=== PATIENT | female | born 1985 | race Caucasian/White ===

== ENCOUNTER 2018-01-15 11:28 | Emergency (ER) | payer MEDICAID, SELFPAY ==
[2018-01-15 11:29] VITALS: BP 99/63; PULSE 75; RESP 16; TEMP 36.7; O2SAT 98; BMI 23.9
[2018-01-15] MEDS: Lidocaine/Epi/Tetracaine 50 ML 1 APPLIC TOPICAL (11:50)
--- NOTE | 2018-01-15 11:53 | ED.VISSUMM ---
- ER Visit Summary Date of Service: 01/15/18 Chief Complaint: Right hand laceration History of Present Illness: The patient is a 32 F presenting with right hand laceration. Patient states last night she was washing dishes and a glass broke. She cut her right small finger. She states she held pressure and applied a dressing. This morning she had persistent bleeding and presented to the ED. Her tetanus is up-to-date. Physical Examination: Vitals are stable. Patient is afebrile. Alert no acute distress. HEENT exam is unremarkable. Lungs are clear and equal bilaterally. Heart is regular rate and rhythm. Extremities right small finger 2 cm flap laceration dorsal surface. Tendon function normal. Normal cap refill Skin is warm and dry. No focal neurologic deficit. Remainder of exam is unremarkable. Emergency Department Course and Treatment: Xray of right hand shows no acute process. LET was applied. Digital block was performed. Irrigated with saline. 3, 5-0 simple sutures were placed. Patient with tolerated this well. Advised wound care instructions. Advised to follow-up with her primary care physician. Advised return ED for worsening complaints. Disposition: Discharge home Impression: Right small finger laceration, laceration repair This note was generated with [employer] dictation software. It may contain incorrect words, spelling, and punctuation that were not noted in review of the chart prior to signing ED Disposition - Plan for ED Patient: Chief Complaint: Laceration Instructions: ED Laceration All Referrals: Roger Cohen MD [STAFF PHYSICIAN] -
--- NOTE | 2018-01-15 11:55 | ED.DEP ---
ED Disposition - Plan for ED Patient: Chief Complaint: Laceration Instructions: ED Laceration All Referrals: Roger Cohen MD [Primary Care Provider] -
--- NOTE | 2018-01-15 12:00 | RAD_ITS ---
STUDY: X-RAY - RIGHT HAND REASON FOR EXAM: Female, 32 years old. Injury. TECHNIQUE: 3 view(s) of the hand. COMPARISON: None. FINDINGS: Normal radiocarpal articulation. Normal distal radioulnar joint. Normal visualized carpal bones. Normal carpal articulations Normal carpometacarpal articulation of the thumb. Normal second through fifth carpometacarpal joints. Normal metacarpi. Normal metacarpophalangeal joint of the thumb. Normal interphalangeal joint of the thumb. Normal proximal and distal phalanges of the thumb. Normal metacarpophalangeal joints of the second through fifth fingers. Normal proximal and distal interphalangeal joints of the second through fifth fingers. Normal phalanges of the second through fifth fingers. There is soft tissue swelling and dressing overlying the proximal phalanx of the fifth finger. RAD/Hand Min 3 Views IMPRESSION: No demonstrated acute osseous injury. Electronically Signed: Kelton Chen MD at 12:19 EDT Tel , Service support ,
[2018-01-15] MEDS: Acetaminophen 500 MG Tablet 1000 MG PO (12:08)
== END 2018-01-15 13:03 | disposition home or self-care (01) ==
PROVIDERS: Emergency Provider Emergency Medicine; Family Provider Family Medicine; PCP Family Medicine
DX: S61.216A Laceration without foreign body of right little finger without damage to nail, initial encounter (principal); W25.XXXA Contact with sharp glass, initial encounter; Y93.9 Activity, unspecified; Y92.9 Unspecified place or not applicable; F32.9 Major depressive disorder, single episode, unspecified; Z79.899 Other long term (current) drug therapy; Z72.0 Tobacco use
CPT/HCPCS: 12001; 73130; 99284

== ENCOUNTER 2018-02-09 14:14 | Emergency (ER) | payer MEDICAID, SELFPAY ==
[2018-02-09 14:14] VITALS: BP 119/67; PULSE 99; RESP 16; TEMP 37.2; O2SAT 98; BMI 24.4
[2018-02-09 14:56] LABS: Absolute Lymphocyte Count 0.54 X10^3/ul (0.83-4.51); Absolute Neutrophil Count 9.1 X10^3/uL (2.0-7.7); Basophil# 0.01 X10^3/uL; Basophil% 0.1 % (0-1); Eosinophil# 0.02 X10^3/uL; Eosinophils% 0.2 % (0-5); Hematocrit 39.9 % (37-47); Hemoglobin 13.5 g/dl (12.0-15.0); Lymphocyte # 0.54 X10^3/ul (4.0); Lymphocyte % 5.2 % (19-41); Mean Corp Hgb Conc 33.8 g/gl (32-36); Mean Corpuscular Hgb 30.3 pg (27.0-32.0); Mean Corpuscular Volume 89.5 fL (81-99); Mean Platelet Vol. 10.3 fl (6.2-12.0); Monocyte# 0.73 X10^3/uL; Neutrophil # 9.12 X10^3/uL (2.7-7.7); Neutrophil % 87.4 % (47-70); Platelet Count 205 K/mm3 (150-450); RBC Distribution Width CV 13.7 % (11.6-14.6); RBC Distribution Width SD 44.2 fl (35.1-43.9); Red Blood Count 4.46 M/mm3 (4.2-5.4); White Blood Count 10.4 K/mm3 (4.4-11.0)
[2018-02-09 14:57] LABS: Differential Indicated SCAN CRITERIA MET; POSITIVE COUNT NO; POSITIVE DIFFERENTIAL YES; POSITIVE MORPHOLOGY NO
[2018-02-09 15:02] LABS: Anion Gap 8 (5-15); BUN 16 mg/dL (7-18); BUN/Creat Ratio 20.8 RATIO (10-20); Calcium,Total 8.5 mg/dL (8.5-10.1); Chloride 107 mmol/L (98-107); Creatinine, Serum 0.77 mg/dL (0.55-1.02); EST Glomerular Filtration Rate 94 mL/min (>60); Est Glom Filt Rate - Afr Amer 113 mL/min (>60); Estimated Creatinine Clearance 88.37 ml/min; Glucose 95 mg/dL (74-106); Potassium 3.3 mmol/L (3.5-5.1); Sodium Level 140 mmol/L (136-145)
[2018-02-09] MEDS: Dicyclomine 20 MG/2 ML Vial IM (15:04)
[2018-02-09] MEDS: Ondansetron 4 MG/2 ML Vial IV (15:04)
[2018-02-09] MEDS: 0.9% Normal Saline 1,000 ML 1000 ML IV (15:04)
[2018-02-09 15:14] LABS: Pregnancy, Serum, hCG Quali. NEGATIVE Negative (0-9 Nonpreg)
[2018-02-09 15:37] LABS: Bacteria 0 SEEN /hpf (None Seen)
--- NOTE | 2018-02-09 15:45 | ED.VISSUMM ---
- ER Visit Summary Date of Service: 02/09/18 Chief Complaint: [Vomiting and diarrhea] History of Present Illness: The patient is a 32 F [presents to the emergency department with vomiting and diarrhea that started 6 PM yesterday. Patient states that she been throwing up about every half hour. Patient's had 3 watery stools. Patient describes diffuse abdominal discomfort mostly left sided. Patient denies any sick contacts. Patient denies eating any unusual or suspect back to foods. Patient denies any fever at home. She has had some chills. Patient denies any recent antibiotic usage.] Physical Examination: [HEENT-PERRLA, EOMI. Cranial nerves II through XII grossly intact. TMs clear. Mucous membranes moist. No adenopathy. Cardiovascular-regular rate and rhythm without murmur or ectopy Lungs-clear to auscultation, chest wall stable without crepitus or subcu emphysema Abdomen-normoactive bowel sounds, soft. Patient has some mild diffuse tenderness mostly to the left upper abdomen. There is no rebound, rigidity, or perineal signs. Extremities-intact ?4, normal range of motion, normal pulses, atraumatic] Test Results: [CBC with differential obtained showed a white blood cell count of 10.4, hemoglobin 13.5, hematocrit 40, platelets 205. Chemistries showed a sodium of 140, potassium 3.3, chloride 107, CO2 25, glucose 95, BUN 16, creatinine 0.77. HCG was negative. Urinalysis pending.] Emergency Department Course and Treatment: [Patient received a liter normal same fluid bolus and was given Bentyl and Zofran. Patient had no further vomiting and she was able to tolerate p.o. fluids.] Treatment Plan: [Patient will be given a prescription for Zofran and Bentyl] Disposition: [Discharged to home in stable condition. Patient advised to return if persistent vomiting, diarrhea, dehydration, or condition should worsen in any way. ] Impression-] viral gastroenteritis This note was generated with [employer] dictation software. It may contain incorrect words, spelling, and punctuation that were not noted in review of the chart prior to signing ED Disposition - Plan for ED Patient: Chief Complaint: Nausea/Vomiting/Diarrhea Referrals: Maci Hayes [Primary Care Provider] -
--- NOTE | 2018-02-09 15:48 | ED.DEP ---
ED Disposition - Plan for ED Patient: Chief Complaint: Nausea/Vomiting/Diarrhea Instructions: ED Gastroenteritis Viral Prescriptions: Ondansetron [Zofran Odt] 4 mg PO Q8H PRN PRN #10 tab PRN Reason: Nausea Dicyclomine HCl [Bentyl] 20 mg PO TIDAC #20 cap Referrals: Maci Hayes [Primary Care Provider] - 3-5 Days
[2018-02-09 16:03] LABS: Color, Urine Yellow (Yellow); Glucose, Dipstick Normal (Normal); Ketone-Dipstick 5 mg/dl (Negative); Leukocyte Esterase-Dipstick 25 /ul (Negative); Nitrite-Dipstick Negative (Negative); Occult Blood-Urine 10 /ul (Negative); Protein-Dipstick 30 mg/dl (Negative); Specific Gravity, Urine 1.015 (1.002-1.030); Urine Bilirubin Dipstick Negative (Negative); Urine Clarity Sl. Cloudy (Clear); Urine Urobilinogen 1 mg/dl (Normal)
[2018-02-09 16:21] LABS: Mucous, Urine RARE /hpf (<or=2+); Red Blood Cells-Urine 0-5 SEEN /hpf (0-5); Squamous Epithelial Cells - UA 10-25 SEEN /hpf (5-10); White Blood Cells 0-5 SEEN /hpf (0-5)
== END 2018-02-09 16:36 | disposition home or self-care (01) ==
LOC: ED 14:53
PROVIDERS: Emergency Provider Emergency Medicine; Family Provider Family Medicine; PCP Family Medicine
DX: A08.4 Viral intestinal infection, unspecified (principal); Z72.0 Tobacco use
CPT/HCPCS: 80048; 81001; 84703; 85025; 96361; 96372; 96374; 99283; J7030; J2405

== ENCOUNTER 2018-02-22 18:38 | Emergency (ER) | payer MEDICAID, SELFPAY ==
[2018-02-22 18:41] VITALS: BP 103/57; PULSE 76; RESP 14; TEMP 36.9; O2SAT 96; BMI 23.5
--- NOTE | 2018-02-22 19:08 | ED.DCSUM_ITS ---
- ER Visit Summary Date of Service: 02/22/18 Chief Complaint: Headache History of Present Illness: The patient is a 32 F who presents with a headache that has been constant for the past 3 days. Patient states this is similar to prior migraine headaches but has been more persistent. Patient describes her pain as throbbing. Patient states her headache is generalized. Patient states her headache improves with sleep. Patient states her headache is worse with light. Patient admits to a low-grade fever at home. Patient admits to some nausea and vomiting with a headache. Patient denies any paresthesias or weakness. Patient denies any visual changes. Patient denies any sore throat or sinus pressure. Physical Examination: Vital signs are stable. Patient is afebrile. Patient is in no acute distress. Oral mucosa is pink and moist. Neck is supple. There is no JVD or lymphadenopathy noted. Heart was regular rate and rhythm. Lungs are clear and equal bilateral. There is good respiratory effort noted. Abdomen is soft nontender. Bowel sounds are normal. Cranial nerves II through XII are intact. There are no focal motor or sensory deficits noted. Remaining physical exam is within normal limits. Emergency Department Course and Treatment: Patient was given IV fluids here. Patient was given Benadryl 25 mg IV, Compazine 10 mg IV, and Toradol 30 mg IV. Patient felt better on reevaluation. Patient was instructed to rest in a dark quiet room. Patient was instructed to follow-up with her primary care physician in 7-10 days. Patient understood and was agreeable with the plan. All questions were answered. Disposition: Discharged home Impression: Migraine headache This note was generated with [employer] dictation software. It may contain incorrect words, spelling, and punctuation that were not noted in review of the chart prior to signing ED Disposition - Plan for ED Patient: Disposition: Home or Assisted Living Chief Complaint: Headache Diagnosis: Migraine headache Instructions: ED Headache Migraine Referrals: Maci Hayes [Primary Care Provider] -
[2018-02-22] MEDS: 0.9% Normal Saline 1,000 ML 999 ML IV (19:28)
[2018-02-22] MEDS: Ketorolac 30 MG/ML Syringe IV (19:28)
[2018-02-22] MEDS: DiphenhydrAMINE 50 MG/ML Syringe 25 MG IV (19:28)
[2018-02-22] MEDS: proCHLORPERazine 10 MG/2 ML Vial IV (19:28)
[2018-02-22 19:31] VITALS: PULSE 87; RESP 18; O2SAT 99
[2018-02-22 20:44] VITALS: BP 106/74; PULSE 72; RESP 16; O2SAT 98
== END 2018-02-22 20:45 | disposition home or self-care (01) ==
PROVIDERS: Emergency Provider Emergency Medicine; Family Provider Family Medicine; PCP Family Medicine
DX: G43.909 Migraine, unspecified, not intractable, without status migrainosus (principal); R50.9 Fever, unspecified; E28.2 Polycystic ovarian syndrome; E78.5 Hyperlipidemia, unspecified; F17.200 Nicotine dependence, unspecified, uncomplicated; Z79.84 Long term (current) use of oral hypoglycemic drugs; Z79.899 Other long term (current) drug therapy
CPT/HCPCS: 96361; 96374; 96375; 99282; J7030; A4216

== ENCOUNTER → 2018-03-31 08:27 | Outpatient (CLI) | payer MEDICAID, SELFPAY ==
--- NOTE | 2018-03-31 08:29 | RAD_ITS ---
STUDY: AIR-CONTRAST UPPER GI SERIES WITH SMALL BOWEL FOLLOW-THROUGH EXAMINATION. REASON FOR EXAM: Female, 32 years old. Nausea and bloating and constipation. FLUOROSCOPY TIME (if supplied): (1:15) minutes/seconds TECHNIQUE: The patient ingested barium. Multiple images of the esophagus, stomach and duodenum were obtained. Following this, a small bowel follow-through examination was performed. COMPARISON: None. FINDINGS: The esophagus is unremarkable. There is no evidence of obstruction. No evidence of gastric esophageal reflux. The stomach and duodenum are unremarkable as well. No evidence of ulceration. A small bowel follow-through examination was then obtained. The small bowel transit is normal. No intrinsic or extrinsic small bowel disease is seen. The terminal ileum is unremarkable. RAD/Upper GI/w Small Bowel IMPRESSION: Unremarkable upper GI series and small bowel follow-through examination. Electronically Signed: Farhat Richmond MD at 10:24 EDT Tel [phone], Service support ,
== END ==
PROVIDERS: Family Provider Internal Medicine; PCP Internal Medicine; Visit Provider Nurse Practitioner Adult Health
DX: R11.0 Nausea (principal); R10.9 Unspecified abdominal pain
CPT/HCPCS: 74249

== ENCOUNTER 2018-05-02 14:20 | Emergency (ER) | payer OTHER, MEDICAID, SELFPAY ==
[2018-05-02 14:21] VITALS: BP 110/63; PULSE 81; RESP 16; TEMP 36.9; O2SAT 98; BMI 26.1
--- NOTE | 2018-05-02 14:29 | RAD_ITS ---
STUDY: X-RAY - RIGHT WRIST REASON FOR EXAM: Female, 32 years old. Pain and swelling. No known injury. TECHNIQUE: 3 view(s) of the wrist were obtained. COMPARISON: None. FINDINGS: Normal visualized distal radius and ulna. Normal radiocarpal articulation. Normal distal radioulnar articulation. Normal carpal bones. Normal carpal articulations. Normal carpometacarpal articulation of the thumb. Normal second through fifth carpometacarpal articulations. Normal visualized metacarpal bones. Mild soft tissue swelling. RAD/Wrist min 3 Views IMPRESSION: Mild degree of soft tissue swelling. Electronically Signed: Farhat Richmond MD at 14:55 EDT Tel [phone], Service support ,
--- NOTE | 2018-05-02 15:04 | RAD_ITS ---
STUDY: X-RAY - RIGHT RADIUS AND ULNA REASON FOR EXAM: Female, 32 years old. Pain. TECHNIQUE: 2 view(s) of the forearm. COMPARISON: None. FINDINGS: There is no demonstrated soft tissue swelling. Normal visualized radius. Normal visualized ulna. RAD/Forearm 2 Views IMPRESSION: Normal x-ray examination of the radius and ulna. Electronically Signed: Farhat Richmond MD at 15:14 EDT Tel [phone], Service support ,
--- NOTE | 2018-05-02 15:16 | ED.VISSUMM ---
- ER Visit Summary Date of Service: 05/02/18 Chief Complaint: Right wrist pain History of Present Illness: The patient is a 32 F who has right wrist pain. Started at work today. She is moving boxes when this started. Pain is in the forearm. She took ibuprofen which did not help. She has never had any injuries or surgeries on this area previously. Physical Examination: Vital signs are reviewed. Right forearm and wrist reveals tenderness palpation of the muscles of the forearm. She does have pain to range of motion. She has 2+ pulses. No hand tenderness. Test Results: X-rays of the wrist and forearm reveal no acute findings Emergency Department Course and Treatment: She likely has a strain in this area. Patient will be given naproxen to take for pain at home. She will be given a wrist splint for comfort. She will follow-up with her PCP Treatment Plan: [] Disposition: Discharge Impression: Right forearm strain This note was generated with [employer] dictation software. It may contain incorrect words, spelling, and punctuation that were not noted in review of the chart prior to signing ED Disposition - Plan for ED Patient: Chief Complaint: Upper Extremity Injury Referrals: Roger Cohen MD [Primary Care Provider] -
--- NOTE | 2018-05-02 15:17 | ED.DEP ---
ED Disposition - Plan for ED Patient: Disposition: Home or Assisted Living Chief Complaint: Upper Extremity Injury Instructions: ED Sprain Wrist Prescriptions: Naproxen [Naprosyn] 500 mg PO BID PRN #20 tab Referrals: Roger Cohen MD [Primary Care Provider] -
== END 2018-05-02 15:34 | disposition home or self-care (01) ==
LOC: ED 15:27
PROVIDERS: Emergency Provider Emergency Medicine; Family Provider Internal Medicine; PCP Internal Medicine
DX: S69.91XA Unspecified injury of right wrist, hand and finger(s), initial encounter (principal); X58.XXXA Exposure to other specified factors, initial encounter; Y93.9 Activity, unspecified; Y92.9 Unspecified place or not applicable; Z72.0 Tobacco use
CPT/HCPCS: 73090; 73110; 99283

== ENCOUNTER 2018-05-17 20:24 | Emergency (ER) | payer MEDICAID, SELFPAY ==
[2018-05-17 20:25] VITALS: BP 120/71; PULSE 124; RESP 22; TEMP 36.6; O2SAT 98; BMI 25.0
[2018-05-17 21:33] LABS: Bacteria 0 SEEN /hpf (None Seen); Mucous, Urine 0 SEEN /hpf (<or=2+); Red Blood Cells-Urine 0 SEEN /hpf (0-5)
[2018-05-17 21:36] LABS: Absolute Lymphocyte Count 3.28 X10^3/ul (0.83-4.51); Absolute Neutrophil Count 4.9 X10^3/uL (2.0-7.7); Basophil# 0.04 X10^3/uL; Basophil% 0.4 % (0-1); Eosinophil# 0.19 X10^3/uL; Eosinophils% 2.1 % (0-5); Hematocrit 44.3 % (37-47); Hemoglobin 15.2 g/dl (12.0-15.0); Lymphocyte # 3.28 X10^3/ul (4.0); Lymphocyte % 35.9 % (19-41); Mean Corp Hgb Conc 34.3 g/gl (32-36); Mean Corpuscular Hgb 30.2 pg (27.0-32.0); Mean Corpuscular Volume 88.1 fL (81-99); Monocyte# 0.69 X10^3/uL; Monocyte% 7.6 % (0-10); Neutrophil # 4.92 X10^3/uL (2.7-7.7); Neutrophil % 53.9 % (47-70); Platelet Count 250 K/mm3 (150-450); RBC Distribution Width CV 13.7 % (11.6-14.6); Red Blood Count 5.03 M/mm3 (4.2-5.4); White Blood Count 9.1 K/mm3 (4.4-11.0)
[2018-05-17 21:36] LABS: Color, Urine Yellow (Yellow); Glucose, Dipstick Normal (Normal); Ketone-Dipstick Negative (Negative); Leukocyte Esterase-Dipstick 100 /ul (Negative); Nitrite-Dipstick Negative (Negative); Occult Blood-Urine 10 /ul (Negative); Protein-Dipstick 15 mg/dl (Negative); Specific Gravity, Urine 1.015 (1.002-1.030); Urine Bilirubin Dipstick Negative (Negative); Urine Clarity Clear (Clear); Urine Urobilinogen Normal (Normal); Urine pH 6.5 (5.0 - 8.0)
[2018-05-17 21:37] LABS: POSITIVE COUNT NO; POSITIVE DIFFERENTIAL NO; POSITIVE MORPHOLOGY NO
[2018-05-17] MEDS: Ondansetron 4 MG/2 ML Vial IV (21:40)
[2018-05-17] MEDS: 0.9% Normal Saline 1,000 ML 250 ML IV (21:40)
[2018-05-17] MEDS: Ketorolac 30 MG/ML Syringe IV (21:41)
[2018-05-17 21:42] LABS: Squamous Epithelial Cells - UA 10-25 SEEN /hpf (5-10); White Blood Cells 0-5 SEEN /hpf (0-5)
[2018-05-17 21:49] LABS: Anion Gap 7 (5-15); BUN 12 mg/dL (7-18); BUN/Creat Ratio 15.6 RATIO (10-20); Calcium,Total 9.4 mg/dL (8.5-10.1); Chloride 107 mmol/L (98-107); Creatinine, Serum 0.77 mg/dL (0.55-1.02); EST Glomerular Filtration Rate 93 mL/min (>60); Est Glom Filt Rate - Afr Amer 113 mL/min (>60); Estimated Creatinine Clearance 88.37 ml/min; Glucose 79 mg/dL (74-106); Potassium 3.6 mmol/L (3.5-5.1); Sodium Level 139 mmol/L (136-145)
--- NOTE | 2018-05-17 22:53 | ED.VISSUMM ---
- ER Visit Summary Date of Service: 05/17/18 Chief Complaint: Left flank pain History of Present Illness: The patient is a 32 F who presents with left flank pain that began yesterday. Patient states the pain began over the left flank. Patient states the pain has been gradually getting worse. Patient admits to some nausea but denies any vomiting. Patient admits to some urinary frequency but denies any hematuria. Patient denies any diarrhea. Patient denies any melena or hematochezia. Patient denies any dysuria. Patient denies any abnormal vaginal bleeding or discharge. Patient states her last menstrual period was 04/14/2018. Physical Examination: Vital signs are stable except for mild tachycardia of 124. Patient is in no acute distress. Patient is afebrile. Oral mucosa is pink and moist. Neck is supple. There is no JVD noted. Heart was regular and tachycardic. Lungs are clear and equal bilateral. There is good respiratory effort noted. Abdomen is soft. There is some left flank tenderness. There is no rebound or guarding noted. There is actually no tenderness over the left costovertebral angle. Cranial nerves II through XII are intact. There are no focal motor or sensory deficits noted. Test Results: CT scan of the abdomen and pelvis does not show any acute process. There is no kidney stone noted. CBC and basic metabolic profile were within normal limits. Urinalysis showed leukocyte esterase of 100 but there were 10-25 epithelial cells. There were no white blood cells or red blood cells noted. Emergency Department Course and Treatment: Patient was given Toradol and Zofran here. Patient was given IV fluids. Patient felt better on reevaluation. Patient was given a prescription for Naprosyn. Patient was instructed to follow-up with her primary care physician in 7-10 days. Patient understood and was agreeable with the plan. All questions were answered. Disposition: Discharged home Impression: Left flank pain This note was generated with Log[employer]In dictation software. It may contain incorrect words, spelling, and punctuation that were not noted in review of the chart prior to signing ED Disposition - Plan for ED Patient: Disposition: Home or Assisted Living Chief Complaint: Flank Pain Diagnosis: Acute left flank pain Instructions: ED Flank Pain Uncertain Cause Prescriptions: Naproxen [Naprosyn] 500 mg PO BID PRN #20 tab Referrals: Roger Cohen MD [Primary Care Provider] -
[2018-05-17 23:14] VITALS: BP 106/50; PULSE 89; RESP 16
== END 2018-05-17 23:15 | disposition home or self-care (01) ==
PROVIDERS: Emergency Provider Emergency Medicine; Family Provider Internal Medicine; PCP Internal Medicine
DX: R10.9 Unspecified abdominal pain (principal); R11.0 Nausea; R35.0 Frequency of micturition; E28.2 Polycystic ovarian syndrome; Z86.39 Personal history of other endocrine, nutritional and metabolic disease; F17.200 Nicotine dependence, unspecified, uncomplicated
CPT/HCPCS: 74176; 80048; 81001; 85025; 96361; 96374; 96375; 99283; J7030; A4216; J2405

== ENCOUNTER → 2018-07-27 14:25 | Outpatient (CLI) | payer MEDICAID, SELFPAY ==
[2018-07-27 16:34] LABS: hCG Titer Quant., Serum 3529 mIU/mL (<9 non-preg)
== END ==
PROVIDERS: Family Provider Internal Medicine; PCP Internal Medicine; Referring Provider Obstetrics & Gynecology; Visit Provider Obstetrics & Gynecology
DX: N92.6 Irregular menstruation, unspecified (principal)
CPT/HCPCS: 36415; 84702

== ENCOUNTER → 2018-07-29 16:55 | Outpatient (CLI) | payer MEDICAID, SELFPAY ==
[2018-07-29 18:29] LABS: hCG Titer Quant., Serum 3340 mIU/mL (<9 non-preg)
== END ==
PROVIDERS: Family Provider Internal Medicine; PCP Internal Medicine; Visit Provider Obstetrics & Gynecology
DX: O03.9 Complete or unspecified spontaneous abortion without complication (principal); Z3A.00 Weeks of gestation of pregnancy not specified
CPT/HCPCS: 36415; 84702

== ENCOUNTER → 2018-07-31 09:18 | Outpatient (CLI) | payer MEDICAID, SELFPAY ==
[2018-07-31 11:00] LABS: hCG Titer Quant., Serum 3641 mIU/mL (<9 non-preg)
== END ==
PROVIDERS: Family Provider Internal Medicine; PCP Internal Medicine; Referring Provider Obstetrics & Gynecology; Visit Provider Obstetrics & Gynecology
DX: O03.9 Complete or unspecified spontaneous abortion without complication (principal); Z3A.00 Weeks of gestation of pregnancy not specified
CPT/HCPCS: 36415; 84702

== ENCOUNTER → 2018-08-02 09:29 | Outpatient (CLI) | payer MEDICAID, SELFPAY ==
[2018-08-02 11:10] LABS: hCG Titer Quant., Serum 3585 mIU/mL (<9 non-preg)
== END ==
PROVIDERS: Family Provider Internal Medicine; PCP Internal Medicine; Referring Provider Obstetrics & Gynecology; Visit Provider Obstetrics & Gynecology
DX: O03.9 Complete or unspecified spontaneous abortion without complication (principal); Z3A.00 Weeks of gestation of pregnancy not specified
CPT/HCPCS: 36415; 84702

== ENCOUNTER → 2018-08-07 14:17 | Outpatient (CLI) | payer MEDICAID, SELFPAY ==
[2018-08-07 15:48] LABS: hCG Titer Quant., Serum 5619 mIU/mL (<9 non-preg)
== END ==
PROVIDERS: Family Provider Internal Medicine; PCP Internal Medicine; Referring Provider Obstetrics & Gynecology; Visit Provider Obstetrics & Gynecology
DX: Z34.90 Encounter for supervision of normal pregnancy, unspecified, unspecified trimester (principal)
CPT/HCPCS: 36415; 84702

== ENCOUNTER 2018-08-12 13:52 | Emergency (ER) | payer MEDICAID, SELFPAY ==
[2018-08-12 13:52] VITALS: BP 119/69; PULSE 81; RESP 16; TEMP 36.4; O2SAT 100; BMI 28.7
--- NOTE | 2018-08-12 14:04 | US_ITS ---
STUDY: FIRST TRIMESTER OBSTETRICAL ULTRASOUND REASON FOR EXAM: Female, 32 years old. Vaginal bleeding. LMP: 06/26/2018 TECHNIQUE: Transvaginal TECHNICAL QUALITY: Adequate. PRIOR ULTRASOUND: None. FINDINGS: There is visualization of a single gestational sac in a normal intrauterine position. The mean sac diameter (MSD) measures 1.3 cm, indicating an estimated gestational age (EGA) of 6 weeks, 1 days. The gestational sac shape is within normal limits. There is a visualized yolk sac. The yolk sac measures 4.8 mm. The placenta is non-visualized. There is visualization of a live embryo. The crown-rump length (CRL) measures 8.6 mm, indicating an estimated gestational age (EGA) of 6 weeks, 6 days. There is demonstrated cardiac activity with a heart rate of 117 bpm. The estimated gestation age (EGA) by LMP is 6 weeks, 4 days. The estimated date of delivery (CALI) by LMP is 04/02/2019. The estimated gestation age (EGA) by US is 6 weeks, 5 days. The estimated date of delivery (CALI) by US is 04/03/2019. The uterus measures 9.5 x 8.2 x 5.7 cm. There is no demonstrated uterine fibroid. The cervix is closed. The right ovary measures 4.1 x 1.8 x 2.4 cm. There is a 2.4 cm cyst. There is no visualized right adnexal mass or complex lesion. The left ovary measures 5.3 x 1.7 x 1.8 cm. There is no left ovarian cyst. There is no visualized left adnexal mass or complex lesion. There is no fluid in the cul de sac. US/Transvaginal w/Preg US IMPRESSION: Single live intrauterine gestation, with ultrasound EGA of 6 weeks 5 days, and no complication seen. Electronically Signed: Filippo Garcia MD at 16:21 EST , Service support ,
[2018-08-12] MEDS: 0.9% Normal Saline 1,000 ML 1000 ML IV (14:35)
[2018-08-12 15:00] LABS: Absolute Lymphocyte Count 2.44 X10^3/ul (0.83-4.51); Absolute Neutrophil Count 5.2 X10^3/uL (2.0-7.7); Basophil# 0.02 X10^3/uL; Basophil% 0.2 % (0-1); Eosinophil# 0.13 X10^3/uL; Eosinophils% 1.6 % (0-5); Hematocrit 41.7 % (37-47); Hemoglobin 13.8 g/dl (12.0-15.0); Lymphocyte # 2.44 X10^3/ul (4.0); Lymphocyte % 29.2 % (19-41); Mean Corp Hgb Conc 33.1 g/gl (32-36); Mean Corpuscular Hgb 30.3 pg (27.0-32.0); Mean Corpuscular Volume 91.6 fL (81-99); Mean Platelet Vol. 10.7 fl (6.2-12.0); Monocyte# 0.54 X10^3/uL; Monocyte% 6.5 % (0-10); Neutrophil # 5.23 X10^3/uL (2.7-7.7); Neutrophil % 62.4 % (47-70); POSITIVE COUNT NO; POSITIVE DIFFERENTIAL NO; POSITIVE MORPHOLOGY NO; Platelet Count 242 K/mm3 (150-450); RBC Distribution Width CV 14.1 % (11.6-14.6); RBC Distribution Width SD 46.4 fl (35.1-43.9); Red Blood Count 4.55 M/mm3 (4.2-5.4); White Blood Count 8.4 K/mm3 (4.4-11.0)
--- NOTE | 2018-08-12 15:00 | ED.VISSUMM ---
- ER Visit Summary Date of Service: 08/12/18 Chief Complaint: [] Vaginal spotting concern for miscarriage History of Present Illness: The patient is a 32 F [] patient is currently 7 weeks by ultrasound done by her doctors a few days ago she had a IUP with heartbeat, she is Ab1. She indicates she had some spot of blood the size of a coin she presents because she is concerned about miscarriage she has had no other complaints she indicates she is been having intermittent cramping and bleeding with this that are really not new or different no fever no cough no UTI symptoms Physical Examination: [] Blood pressure is 119/69 she is resting comforting the bed no distress head neck chest unremarkable the abdomen soft nontender upper lower extremities are normal neurologically she is normal she deferred pelvic exam Test Results: [] Emergency Department Course and Treatment: [] Reviewed the ultrasound report from the office it is in the computer please see that report discussed with the patient she is quite concerned about all the above clinically she looks well she does not wish to have pelvic exam she describes only scant bleeding the size of a coin x1 given all of her concerns and the above ultrasound screening labs are obtained The patient's ultrasound shows single live IUP 7 weeks the quant 7500 the rest of her studies are generally unremarkable see those reports on reevaluation is resting comfortable he has no other complaints she is Rh- and normally receives RhoGam, I contacted the physician information assurance manager for Dr. Vazquez Azevedo discussed the case in detail, the patient does not wish to wait in the hospital she prefers to be discharged now and the on-call physician stated the RhoGam was not indicated at this time and she should follow-up with the office Treatment Plan: [] Disposition: [] Home stable Impression: [] Vaginal bleeding in , threatened AB, 7 weeks single live IUP on ultrasound This note was generated with [employer]Her dictation software. It may contain incorrect words, spelling, and punctuation that were not noted in review of the chart prior to signing ED Disposition - Plan for ED Patient: Chief Complaint: Vag Bld, Preg Referrals: Roger Cohen MD [Primary Care Provider] -
[2018-08-12 15:35] LABS: hCG Titer Quant., Serum 7039 mIU/mL (<9 non-preg)
--- NOTE | 2018-08-12 16:36 | DCINST.ED_ITS ---
ED Disposition - Plan for ED Patient: Chief Complaint: Vag Bld, Preg Instructions: ED Miscarriage Poss Referrals: Roger Cohen MD [Primary Care Provider] - Additional Instructions: Follow-up with her social work case manager in the next few days return for change in symptoms
[2018-08-12 16:53] VITALS: BP 109/56; PULSE 98; RESP 16; O2SAT 100
== END 2018-08-12 16:55 | disposition home or self-care (01) ==
PROVIDERS: Emergency Provider Emergency Medicine; Family Provider Internal Medicine; PCP Internal Medicine
DX: O20.0 Threatened abortion (principal); Z3A.01 Less than 8 weeks gestation of pregnancy
CPT/HCPCS: 76817; 84702; 85025; 86900; 93976; 99283; J7030; A4216

== ENCOUNTER 2018-09-05 10:16 | Day surgery (SDC) | payer MEDICAID, SELFPAY ==
[2018-08-30 11:06] VITALS: BMI 27.8
--- NOTE | 2018-09-05 | POC_PTH ---
PATIENT: LILLIAN OCHOA LOC: [facility] [place] U#:[id number] AGE/SX: 32/F ROOM: RE09/05/[address]: Dr. Maria Regan MD : [id number] BED: DIS: 09/05/2018 SPEC #: [id number] RECD: 09/05/18 13:55 STATUS: DILMA REShania #: [id number] MARIA INES: 09/05/18 00:[address]: Maria Regan DEPT: SURGICAL PATHOLOGY RECD BY: Konrad Malave ENTERED: 09/05/18 13:55 SP TYPE: PROD CONC OTHR DR: Dr. Roger Cohen MD Tissues: Product of conception, NOS Procedures: Surgery Specimen Level IV HEADER OPERATION: Dilation and curettage, suction PRE-OP DIAGNOSIS: Missed TISSUE SUBMITTED: Products of conception - needs to go for genetic studies MICROSCOPIC DIAGNOSIS Products of conception: Decidua, gestational endometrium, and blood clots. See comment.. SJ:clara 09/06/18 COMMENT The entire specimen is examined. Chorionic villi are not present in the specimen, this information is reported to Dr. Regan's office on 09/07/18. Results of the genetic studies will be reported later as an addendum. [facility] canceled cytogentics due to the sample received contained only decidua. No viable tissue or villi is present. Case has been reviewed in consultation with Dr. Catherine who concurs with the above diagnosis. IDC:AM MICROSCOPIC DESCRIPTION Slides are reviewed. GROSS DESCRIPTION Received fresh and postfixed in formalin labeled with the patient's name is a specimen designated products of conception. The specimen consists of multiple irregular fragments of pink-red soft tissue that in aggregate measure 5 x 4.5 x 1 cm. No tissue is identified. Parking Supervisor tissue is submitted in three cassettes. A portion of tissue is submitted for genetic studies. / ANUPAM:clara 09/05/18 The rest of the specimen is submitted in three more cassettes, 4-6. / ANUPAM:clara 09/06/18 TC:5 CPT: 54603
[2018-09-05] MEDS: Doxycycline 100 MG CAPSULE PO (07:00)
[2018-09-05 10:41] LABS: Hematocrit 39.4 % (37-47); Hemoglobin 13.1 g/dl (12.0-15.0); Mean Corp Hgb Conc 33.2 g/gl (32-36); Mean Corpuscular Hgb 30.2 pg (27.0-32.0); Mean Corpuscular Volume 90.8 fL (81-99); Mean Platelet Vol. 9.7 fl (6.2-12.0); Platelet Count 209 K/mm3 (150-450); RBC Distribution Width CV 13.6 % (11.6-14.6); RBC Distribution Width SD 45.5 fl (35.1-43.9); Red Blood Count 4.34 M/mm3 (4.2-5.4); White Blood Count 9.5 K/mm3 (4.4-11.0)
[2018-09-05 10:42] LABS: Scan Indicated on CBC? Y/N NO
[2018-09-05 10:54] VITALS: BP 115/54; PULSE 77; RESP 18; TEMP 36.9; O2SAT 98; BMI 28.2
--- NOTE | 2018-09-05 12:49 | PCM.OPRPT ---
Problem List (1) Missed Status: Acute Report of Operation Date of Procedure: 09/05/18 Pre-Operative Diagnosis: Missed 9 weeks Post-Operative Diagnosis: Same Surgery/Procedure Performed:: suction D&C Description of Surgical Findings:: 9-week uterine size Type of Anesthesia:: Local MAC Specimen's removed: products of conception Drains: none Estimated Blood Loss (mL): 100 Fluids Replaced: Styloid Description of Procedure: Patient was taken to the operating room and placed under MAC local anesthesia. She was prepped and draped in the normal sterile fashion the dorsal lithotomy position. Bladder was drained of clear urine and anterior lip of the cervix was grasped and the uterus sounded to 8 cm. Cervix was progressively dilated to allow passage of a 8 mm suction curette. Progressive passes were made removing the retained products of conception without complication. Sharp curettage confirmed complete removal of the retained products. All instruments were removed from the vagina and excellent hemostasis was noted and the patient was taken to recovery in stable condition. Grafts/Implants Used: none - Complications none - Admit VTE Documentation VTE Present on Admission: No VTE Mechan Device Prophylaxis: SCD's
--- NOTE | 2018-09-05 12:52 | DCINST_ITS ---
Discharge Diet: No Restrictions Discharge Activity: Return to Normal Activity, May Shower, May Take a Tub Bath Allergies/Adverse Reactions: Allergies dicyclomine [From Bentyl] Allergy (Verified 09/04/18 13:19) Other migraine Penicillins Allergy (Verified 09/04/18 13:19) Rash Medications to take at Discharge acetaminophen 500 mg tablet 500 mg PO Q6H PRN 08/09/18 paroxetine 40 mg tablet 40 mg PO DAILY 08/09/18 Primary Care Physician: Roger Cohen MD [Primary Care Provider] - Test Results: Test results from this visit will be discussed in further detail at your follow- up appointment, if applicable. Please Follow Up With: Maria Regan MD - [phone]
[2018-09-05 13:01] VITALS: BP 111/62; BP 115/54; PULSE 72; RESP 16; TEMP 36.2; O2SAT 97
[2018-09-05 13:06] VITALS: BP 104/63; BP 115/54; PULSE 73; RESP 16; O2SAT 97
[2018-09-05 13:11] VITALS: BP 107/55; BP 115/54; PULSE 77; RESP 16; O2SAT 98
[2018-09-05 13:16] VITALS: BP 111/55; BP 115/54; PULSE 72; RESP 16; TEMP 36.2; O2SAT 97
--- NOTE | 2018-09-08 04:36 | PCM.HPOB.BLA ---
- Problem List (1) Missed Status: Acute History and Physical Date of Admission: 09/05/18 Intake Visit Reasons: est ob Chief Complaint: NEW OB [employer] Professor Required: No Is patient in pain?: No Allergies dicyclomine [From Bentyl] Allergy (Verified 08/30/18 11:06) Other Penicillins Allergy (Verified 08/30/18 11:06) Rash Medications acetaminophen 500 mg tablet 500 mg PO Q6H PRN 08/09/18 [History Confirmed 08/30/18] docosahexanoic acid 200 mg capsule 1 cap PO cap 08/09/18 [History Confirmed 08/30/18] paroxetine 40 mg tablet 40 mg PO DAILY 08/09/18 [History Confirmed 08/30/18] Last Menstral Period: 06/22/18 Zika: Zika virus screening: Negative : No PFSH PFSH Medical History Abnormal bruising (Acute) Back pain (Acute) Chest pain (Acute) Fatigue (Acute) Knee pain (Acute) Migraines (Acute) Shoulder pain (Acute) Social History Smoking Status: Current some day smoker alcohol intake: never substance use type: does not use caffeine: Yes what type of physical activity do you participate in: none seatbelt use: always do you feel safe at home: Yes additional social history: Single-Boyfriend- Devonte- 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 Date Name GA/Weeks Outcome Route Bth Weight Infant Gen Labor Lgth Anesthesia Del Locatn Provider FOB 02/14/16 Emily 38 live - full term 7lbs 13oz Female [address] [place] [address] Myke Romerowajosette 08/14/09 Toby Nuñez 34 live - 4lbs 11oz Male 2 hours epidural [place] [facility] Delivery Date: 02/14/16 On 08/09/18 @ 12:17 Alison Noel No issues during or delivery. Delivery Date: 08/14/09 On 08/09/18 @ 12:19 Alison Noel Pre-term labor. HPI est ob : Details: LILLIAN ARAUJO is a 32 year old who presents for New OB visit. she has had slowly rising quants the last few weeks but did have an US that showed a heart beat a few weeks ago. US today shows a pole measuring 9 weeks with no heart beat seen. crl measures 9w0d and she is suppsoed to be 9w2d. she has had some occasional cramping but denies any bleeding. OB Visit Menstrual History Last Menstral Period: 06/22/18 ACOG First Trimester First Trimester: Discussed ROS Const Denies fever(s), Reports system reviewed and no additional complaints, except as docu, Reports fatigue Eyes Reports system reviewed and no additional complaints, except as docu ENT Reports system reviewed and no additional complaints, except as docu Card Denies chest pain, Denies shortness of breath Resp Reports system reviewed and no additional complaints, except as docu, Denies shortness of breath, Denies cough GI Reports nausea, Denies abdominal pain Reports system reviewed and no additional complaints, except as docu Musc Reports system reviewed and no additional complaints, except as docu Skin/Breast Reports system reviewed and no additional complaints, except as docu Neuro Yes system reviewed and no additional complaints, except as docu Psych Reports system reviewed and no additional complaints, except as docu Endo Reports fatigue, Reports system reviewed and no additional complaints, except as docu Exam Const General: healthy appearing, comfortable, no acute distress Orientation: alert [facility] Head: normal to inspection, atraumatic, normocephalic Ears: external ears normal, hearing grossly normal bilaterally Nose: nares normal, external nose normal Mouth: oral mucosae normal Teeth and gingiva: dentition normal GI Inspection: normal to inspection Palpation: soft, no hepatosplenomegaly General: bladder normal to palpation External Female Exam: normal external appearance, normal appearance of the urethra Urethra: normal appearance of the urethra Speculum Exam - Vagina: normal appearance of the vagina, normal vaginal discharge Speculum Exam - Cervix: normal appearance of the cervix Bimanual Exam- Vagina & Uterus: bladder normal to palpation, normal bimanual exam, uterus non-tender, other Bimanual Exam- Adnexa, other: adnexae non-tender Assessment & Plan Problems 1. Missed O02.1 Plan miscarriage confirmed, discussed options and patient wishes to proceed with suction d and c. will schedule. Orders UPDATE- I have seen the patient and performed any clinically relevant updates to the history and physical exam. Maria Regan MD
== END 2018-09-05 14:00 | disposition home or self-care (01) ==
LOC: SDC 10:16 → AC 10:18
PROVIDERS: Family Provider Internal Medicine; PCP Internal Medicine; Referring Provider Obstetrics & Gynecology; Visit Provider Obstetrics & Gynecology
PROC: (CPT 59820; principal; 2018-09-05 11:45)
DX: O02.1 Missed abortion (principal); E78.00 Pure hypercholesterolemia, unspecified; F41.9 Anxiety disorder, unspecified; F32.9 Major depressive disorder, single episode, unspecified; Z79.899 Other long term (current) drug therapy; F17.200 Nicotine dependence, unspecified, uncomplicated
CPT/HCPCS: 01965; 59820; 36415; 85027; 86850; 86900; 88305; J7120; J2405

== ENCOUNTER → 2019-01-09 | Outpatient (CLI) | payer MEDICAID, SELFPAY ==
[2018-10-04 15:01] VITALS: BMI 28.2
[2019-01-09 18:13] LABS: hCG Titer Quant., Serum < 1 mIU/mL (<9 non-preg)
[2019-01-09 18:27] LABS: Follicle Stimulating Hormone 5.4 mIU/mL; Thyroid Stim Hormone (TSH) 0.45 uIU/mL (0.358-3.74)
== END | disposition home or self-care (01) ==
LOC: LAB 16:12
PROVIDERS: Nurse Practitioner Women's Health; Family Provider Internal Medicine; PCP Internal Medicine; Referring Provider Obstetrics & Gynecology; Visit Provider Obstetrics & Gynecology
DX: N91.2 Amenorrhea, unspecified (principal)
CPT/HCPCS: 36415; 83001; 84443; 84702

== ENCOUNTER 2019-03-07 16:28 | Emergency (ER) | payer MEDICAID, SELFPAY ==
[2019-01-09 16:18] VITALS: BMI 28.2
[2019-03-07 16:28] VITALS: BP 127/73; PULSE 79; RESP 18; TEMP 36.1; O2SAT 99; BMI 26.5
--- NOTE | 2019-03-07 16:38 | RAD_ITS ---
STUDY: X-RAY - LEFT ANKLE REASON FOR EXAM: Female, 33 years old. Trauma TECHNIQUE: 3 view(s) of the ankle. COMPARISON: None. FINDINGS: Normal visualized distal tibia and fibula. Normal medial and lateral malleoli. Normal tibiotalar articulation and ankle mortise. Normal visualized talus and calcaneus. The visualized subtalar, talonavicular, calcaneocuboid and tarsal articulations are normal. There may be a nondisplaced fracture of the fifth metatarsal base. The soft tissue structures are unremarkable. RAD/Ankle min 3 Views IMPRESSION: Normal x-ray examination of the ankle. There may be a nondisplaced fracture of the fifth metatarsal base. Electronically Signed: Larry Ricci MD at 16:59 EDT , Service support ,
--- NOTE | 2019-03-07 16:38 | RAD_ITS ---
STUDY: X-RAY - LEFT FOOT CLINICAL: Female, 33 years old. Trauma TECHNIQUE: 3 view(s) of the foot. COMPARISON: None. FINDINGS: Normal talus, calcaneus, and tarsal bones. Normal visualized subtalar, talonavicular, calcaneocuboid, tarsal and tarsometatarsal articulations. There is a vague linear lucency of the fifth metatarsal base which appears to represent a trabecular marking. Normal metatarsophalangeal joint of the great toe. Normal tibial and fibular sesamoid bones. Normal interphalangeal joint of the great toe. Normal phalanges of the great toe. Normal second through fifth metatarsophalangeal joints. Normal interphalangeal joints and phalanges of the lesser toes. The soft tissue structures are unremarkable. RAD/Foot min 3 Views IMPRESSION: There is a vague linear lucency of the fifth metatarsal base which appears to represent a trabecular marking. There is no evidence of fracture or dislocation. Electronically Signed: Larry Ricci MD at 17:03 EDT , Service support ,
--- NOTE | 2019-03-07 18:12 | ED.VIS.LOWEX ---
History of Present Illness Chief Complaint: Lower Extremity Injury Informant: Patient Occurred: Today Mechanism/Context: Injury, Fall - off porch step, Trip Onset: Today Context: Sudden Onset Timing: Continuous Quality of Pain: Aching Location: left ankle Current Severity: Moderate Maximum Severity: Severe Worsened by: moving, WBing Relieved by: rest Associated Symptoms: Negative for: Parasthesia, Weakness Narrative: felt a pop. Past Medical History - Allergies and Home Meds Allergies/Adverse Reactions: Allergies dicyclomine [From Bentyl] Allergy (Verified 03/07/19 16:30) Other migraine Penicillins Allergy (Verified 03/07/19 16:30) Rash Primary Care Physician: Roger Cohen MD [Primary Care Provider] - Past Medical History: None Surgical History: no surgical history Lives: With Family Smoking Status: Current every day smoker Review of Systems Musculoskeletal: Reports: Swelling, Extremity Pain Neurological: Denies: Weakness, Parasthesia Physical Exam Vital Signs/Narrative: Vital Signs Temp Pulse Resp BP Pulse Ox 03/07/19 16:28 97 F L 79 18 127/73 H 99 Inital Vital Signs reviewed: Yes - Extremity Exam Left Ankle: Limited ROM - w/ tenderness lateral aspect of midfoot and base of 5th MT. minimal ttp lateral mall, w/o swelling.. Negative for: Deformity General: Well nourished, Well developed Skin: Normal color - skin intact LLE, No rash Neurological: Alert, Oriented x3, Cranial nerves II-XII grossly intact, Normal Strength, Normal Sensation Psychological: Normal affect Diagnostic/Tx/Re-eval Clinical Impression(s) from Imaging Studies Ankle X-Ray 03/07/19 16:38 IMPRESSION: Normal x-ray examination of the ankle. There may be a nondisplaced fracture of the fifth metatarsal base. Electronically Signed: Larry Ricci MD at 16:59 EDT , Service support , Foot X-Ray 03/07/19 16:38 IMPRESSION: There is a vague linear lucency of the fifth metatarsal base which appears to represent a trabecular marking. There is no evidence of fracture or dislocation. Electronically Signed: Larry Ricci MD at 17:03 EDT , Service support , - Medical Decision Making No acute fractures. Patient is requesting a boot rather than an ankle stirrup. She wants both, as I advise we are not able to provide both simultaneously, we will give her the boot she understands the risk of DVT and needs to come out of it regularly. ED Disposition - Plan for ED Patient: Disposition: Home or Assisted Living Diagnosis: Left ankle sprain Instructions: ED Sprain Ankle W X Ray Prescriptions: Naproxen [Naprosyn] 500 mg PO BID PRN #20 tablet Referrals: Roger Cohen MD [Primary Care Provider] - 10-14 Days if not better
--- NOTE | 2019-03-07 18:16 | ED.DCSUM_ITS ---
History of Present Illness Chief Complaint: Lower Extremity Injury Informant: Patient Occurred: Today Mechanism/Context: Injury, Fall - off porch step, Trip Onset: Today Context: Sudden Onset Timing: Continuous Quality of Pain: Aching Location: left ankle Current Severity: Moderate Maximum Severity: Severe Worsened by: moving, WBing Relieved by: rest Associated Symptoms: Negative for: Parasthesia, Weakness Narrative: felt a pop. Past Medical History - Allergies and Home Meds Allergies/Adverse Reactions: Allergies dicyclomine [From Bentyl] Allergy (Verified 03/07/19 16:30) Other migraine Penicillins Allergy (Verified 03/07/19 16:30) Rash Primary Care Physician: Roger Cohen MD [Primary Care Provider] - Past Medical History: None Surgical History: no surgical history Lives: With Family Smoking Status: Current every day smoker Review of Systems Musculoskeletal: Reports: Swelling, Extremity Pain Neurological: Denies: Weakness, Parasthesia Physical Exam Vital Signs/Narrative: Vital Signs Temp Pulse Resp BP Pulse Ox 03/07/19 16:28 97 F L 79 18 127/73 H 99 Inital Vital Signs reviewed: Yes - Extremity Exam Left Ankle: Limited ROM - w/ tenderness lateral aspect of midfoot and base of 5th MT. minimal ttp lateral mall, w/o swelling.. Negative for: Deformity General: Well nourished, Well developed Skin: Normal color - skin intact LLE, No rash Neurological: Alert, Oriented x3, Cranial nerves II-XII grossly intact, Normal Strength, Normal Sensation Psychological: Normal affect Diagnostic/Tx/Re-eval Clinical Impression(s) from Imaging Studies Ankle X-Ray 03/07/19 16:38 IMPRESSION: Normal x-ray examination of the ankle. There may be a nondisplaced fracture of the fifth metatarsal base. Electronically Signed: Larry Ricci MD at 16:59 EDT , Service support , Foot X-Ray 03/07/19 16:38 IMPRESSION: There is a vague linear lucency of the fifth metatarsal base which appears to represent a trabecular marking. There is no evidence of fracture or dislocation. Electronically Signed: Larry Ricci MD at 17:03 EDT , Service support , - Medical Decision Making No acute fractures. Patient is requesting a boot rather than an ankle stirrup. She wants both, as I advise we are not able to provide both simultaneously, we will give her the boot she understands the risk of DVT and needs to come out of it regularly. ED Disposition - Plan for ED Patient: Disposition: Home or Assisted Living Diagnosis: Left ankle sprain Instructions: ED Sprain Ankle W X Ray Prescriptions: Naproxen [Naprosyn] 500 mg PO BID PRN #20 tablet Referrals: Roger Cohen MD [Primary Care Provider] - 10-14 Days if not better
[2019-03-07] MEDS: Naproxen 500 MG Tablet PO (18:20)
[2019-03-07] MEDS: traMADol 50 MG Tablet PO (18:20)
[2019-03-07 18:36] VITALS: BP 117/62; PULSE 74; RESP 16; O2SAT 98
--- NOTE | 2019-03-07 18:37 | ED.RN ---
REVIEWED D/C INSTRUCTIONS, FOLLOW UP CARE, PRESCRIPTION, AND S/S THAT WOULD WARRANT A RETURN TO THE ED WITH PT. PT VERBALIZED AN UNDERSTANDING AND DENIES FURTHER QUESTIONS FOR THIS RN. PT SKIN P/W/D, RESP EVEN AND UNLABORED, PT A&O X 3, NO DISTRESS NOTED. PT AMBULATED OUT OF ED, GAIT STEADY.
== END 2019-03-07 18:38 | disposition home or self-care (01) ==
PROVIDERS: Emergency Provider Emergency Medicine; Family Provider Internal Medicine; PCP Internal Medicine
DX: S93.402A Sprain of unspecified ligament of left ankle, initial encounter (principal); W10.8XXA Fall (on) (from) other stairs and steps, initial encounter; Y93.9 Activity, unspecified; Y92.9 Unspecified place or not applicable; F17.200 Nicotine dependence, unspecified, uncomplicated
CPT/HCPCS: 73610; 73630; 99284

== ENCOUNTER → 2019-03-23 | Outpatient (CLI) | payer MEDICAID, SELFPAY ==
[2019-03-23 15:12] VITALS: BMI 26.5
== END | disposition home or self-care (01) ==
LOC: LABSPEC 17:48
PROVIDERS: Family Provider Internal Medicine; PCP Internal Medicine; Referring Provider Obstetrics & Gynecology; Visit Provider Obstetrics & Gynecology
DX: N39.0 Urinary tract infection, site not specified (principal); R10.2 Pelvic and perineal pain
CPT/HCPCS: 87070; 87077; 87086; 87088; 87205

== ENCOUNTER 2019-08-19 15:32 | Emergency (ER) | payer MEDICAID, SELFPAY ==
[2019-03-24 05:43] VITALS: BMI 26.5
[2019-08-19 15:32] VITALS: BP 115/58; PULSE 74; RESP 16; TEMP 36.6; O2SAT 97; BMI 28.0
--- NOTE | 2019-08-19 15:43 | CT_ITS ---
STUDY: CT ABDOMEN AND PELVIS WITHOUT CONTRAST REASON FOR EXAM: Female, 33 years old. Left flank pain RADIATION DOSAGE (If Supplied By Facility): CTDIvol = ( 6.65 ) mGy, DLP = ( 330.56 ) mGycm TECHNIQUE: Transaxial images were obtained from the dome of the diaphragm to the symphysis pubis without oral contrast, and without intravenous contrast. Sagittal and coronal images were reconstructed. Individualized dose optimization techniques were used for this CT. COMPARISON: 05/17/2018 FINDINGS: The visualized lung bases are unremarkable. The visualized portions of the heart are within normal limits. Normal liver. Normal gallbladder and extrahepatic biliary system. Normal spleen. Normal pancreas. Normal bilateral adrenal glands. Normal right kidney. Normal left kidney. Normal visualized stomach. Normal small intestine. Normal colon. The appendix is visualized and appears normal. Normal abdominal aorta. Normal inferior vena cava. Normal retroperitoneum. Normal urinary bladder. Normal visualized uterus. Small left ovarian cyst Normal abdominal wall. Normal osseous structures. CT/Abdomen/Pelvis without Cont IMPRESSION: Normal unenhanced CT of the abdomen and pelvis. No evidence of urolithiasis or renal obstruction. Small left ovarian cyst. Electronically Signed: Mark Looney DO at 18:48 EST Tel , Service support ,
--- NOTE | 2019-08-19 15:44 | ED.DCSUM_ITS ---
History of Present Illness Chief Complaint: Flank Pain Informant: Patient - Abdominal Pain/Flank Pain Onset: Yesterday - PM Context: Sudden Onset - and severe Timing: Continuous, Waxes and wanes Quality: Aching Location: Left Flank Current Severity: Severe Maximum Severity: Severe Worsened by: Nothing Relieved by: Nothing - Nausea/Vomiting/Emesis GI Symptom: Nausea. Negative for: Vomiting - Diarrhea/Melena/Hematochezia GI Symptom: Negative for: Diarrhea, Melena, Hematochezia Associated Symptoms: - - urine was dark, resolved now. Negative for: Dysuria, Frequency, Hematuria, Urgency LMP: 2 weeks; very irreg Narrative: No history of kidney stones. Pain started in her left back and radiating around her left side toward her groin on the left. No pain on the right. No history of any abdominal surgeries. - Past Medical History (1) PCOS (polycystic ovarian syndrome) Status: Chronic (2) Depression Status: Chronic Past Medical History - Allergies and Home Meds Allergies/Adverse Reactions: Allergies dicyclomine [From Bentyl] Allergy (Verified 08/19/19 15:34) Other migraine Penicillins Allergy (Verified 08/19/19 15:34) Rash Primary Care Physician: Roger Cohen MD [Primary Care Provider] - Surgical History: no surgical history Lives: Spouse/ Significant Other Smoking Status: Current every day smoker Drugs: None Review of Systems General: Reports: Chills, Malaise. Denies: Fever, Sweats Eyes: Denies: Visual changes - bilaterally, Diplopia ENT: Denies: Rhinorrhea, Sore throat Cardiovascular: Denies: Chest pain, Palpitations Respiratory: Denies: Dyspnea, Cough, Dyspnea on exertion Gastrointestinal: Reports: Abdominal pain, Nausea. Denies: Vomiting, Diarrhea, Melena, Hematochezia Genitourinary: Denies: Dysuria, Hematuria, Frequency Musculoskeletal: Reports: Back pain. Denies: Swelling, Extremity Pain Skin: Denies: Rash, Wounds Neurological: Denies: Headache, Weakness, Numbness Physical Exam Vital Signs/Narrative: Vital Signs Temp Pulse Resp BP Pulse Ox 08/19/19 15:32 97.9 F 74 16 115/58 L 97 Inital Vital Signs reviewed: Yes General: Well nourished, Well developed, Acute Distress - mild, painful Head: Normocephalic, Atraumatic Eyes: Perrl, EOMI ENT: Moist mucous membranes, No rhinorrhea Neck: Supple, Nontender Cardiovascular: Regular rate, Regular rhythm, No murmurs Respiratory: No distress, CTA bilaterally, Chest nontender Abdomen: Soft, Nondistended, Normal bowel sounds, No masses, Tender - mild left lateral mid abd, LUQ laterally; otherwise, NT. Negative for: Pulsatile mass Back: Normal Inspection, CVA tenderness - mild, left; over lidocaine patch Extremities: Nontender, No edema Skin: Normal color, No rash, No Trauma Neurological: Alert, Oriented x3, Cranial nerves II-XII grossly intact, Normal Strength, Normal Sensation, Normal Gait Psychological: Normal affect, Normal Mood Diagnostic/Tx/Re-eval Impressions Abdomen/Pelvis CT 08/19/19 15:43 IMPRESSION: Normal unenhanced CT of the abdomen and pelvis. No evidence of urolithiasis or renal obstruction. Small left ovarian cyst. Electronically Signed: Mark Looney DO at 18:48 EST Tel , Service support , 08/19/19 15:43 Abdomen/Pelvis without Cont [CT] Stat Laboratory Results 08/19/19 17:15 Urine Color Yellow Urine Clarity Sl. Cloudy Urine pH 7.0 Ur Specific Dewitt 1.010 Urine Protein Negative Urine Glucose (UA) Normal Urine Ketones Negative Urine Occult Blood Negative Urine Nitrite Negative Urine Bilirubin Negative Urine Urobilinogen Normal Ur Leukocyte Esterase Negative Urine RBC 0 SEEN Urine WBC 0 SEEN Ur Squamous Epith Cells 0-5 SEEN Urine Bacteria 0 SEEN Urine Mucus 0 SEEN Urine Test Negative - Medical Decision Making Patient was treated with IV Zofran, Toradol, morphine, she felt much better. Pain started coming back later, took a while for her to give us a urine specimen and prove that she was not so that we could obtain CT, which ended up showing no signs of any urolithiasis which certainly was in the differential, it showed a small left ovarian cyst and no other acute abnormalities. She is mildly to moderately tender in the left lower quadrant, on reevaluation. I do not suspect she has torsion. It more likely is a ruptured cyst. She has been very comfortable. She is asking for something else for pain, given a Marine in a short prescription and advised to follow-up with her lump room supervisor. She is comfortable with this plan. ED Disposition - Plan for ED Patient: Disposition: Home or Assisted Living Diagnosis: Ruptured cyst of left ovary Instructions: Ovarian Cyst Prescriptions: Hydrocodone Bitart/Apap 5-325 [Marine 5MG-325MG] 1 tablet PO Q4H PRN PRN 2 Days #10 tablet PRN Reason: Pain Transmission Status: Received by [facility] [facility] Referrals: Maria Regan MD [STAFF PHYSICIAN] - 3-5 Days if not improving
[2019-08-19] MEDS: Morphine 4 MG/ML Syringe IV (16:11)
[2019-08-19] MEDS: Ketorolac 30 MG/ML Syringe IV (16:11)
[2019-08-19] MEDS: Ondansetron 4 MG/2 ML Vial IV (16:11)
[2019-08-19 17:34] LABS: Bacteria 0 SEEN /hpf (None Seen); Mucous, Urine 0 SEEN /hpf (<or=2+); Red Blood Cells-Urine 0 SEEN /hpf (0-5); White Blood Cells 0 SEEN /hpf (0-5)
[2019-08-19 17:37] LABS: Color, Urine Yellow (Yellow); Glucose, Dipstick Normal (Normal); Ketone-Dipstick Negative (Negative); Leukocyte Esterase-Dipstick Negative /ul (Negative); Nitrite-Dipstick Negative (Negative); Occult Blood-Urine Negative /ul (Negative); Protein-Dipstick Negative (Negative); Urine Bilirubin Dipstick Negative (Negative); Urine Clarity Sl. Cloudy (Clear); Urine Urobilinogen Normal (Normal)
[2019-08-19 17:45] LABS: Internal QC Validated? YES +Cl - CLEAR BKGD; Pregnancy, Urine Negative Negative
[2019-08-19 17:55] LABS: Squamous Epithelial Cells - UA 0-5 SEEN /hpf (5-10)
[2019-08-19] MEDS: HYDROcodone Bitartrate/Apap 5/325 Tablet PO (19:38)
[2019-08-19 19:44] VITALS: RESP 16
== END 2019-08-19 19:44 | disposition home or self-care (01) ==
PROVIDERS: Emergency Provider Emergency Medicine; Family Provider Internal Medicine; PCP Internal Medicine
DX: N83.202 Unspecified ovarian cyst, left side (principal); E28.2 Polycystic ovarian syndrome; F32.9 Major depressive disorder, single episode, unspecified; Z79.899 Other long term (current) drug therapy; F17.200 Nicotine dependence, unspecified, uncomplicated
CPT/HCPCS: 74176; 81001; 81025; 96374; 96375; 99284; A4216; J2405

== ENCOUNTER → 2019-09-05 12:46 | Outpatient (CLI) | payer MEDICAID, SELFPAY ==
[2019-08-19 15:32] VITALS: BMI 28.0
[2019-09-05 14:39] LABS: hCG Titer Quant., Serum 12 mIU/mL (1-3)
== END ==
PROVIDERS: Family Provider Internal Medicine; PCP Internal Medicine; Referring Provider Obstetrics & Gynecology; Visit Provider Obstetrics & Gynecology
DX: O20.0 Threatened abortion (principal)
CPT/HCPCS: 36415; 84702

== ENCOUNTER → 2019-09-07 09:08 | Outpatient (CLI) | payer MEDICAID, SELFPAY ==
[2019-08-19 15:32] VITALS: BMI 28.0
[2019-09-07 10:51] LABS: hCG Titer Quant., Serum 6 mIU/mL (1-3)
== END ==
PROVIDERS: Family Provider Internal Medicine; PCP Internal Medicine; Referring Provider Obstetrics & Gynecology; Visit Provider Obstetrics & Gynecology
DX: O20.0 Threatened abortion (principal); Z3A.00 Weeks of gestation of pregnancy not specified
CPT/HCPCS: 36415; 84702

== ENCOUNTER 2020-06-05 16:22 | Emergency (ER) | payer MEDICAID, SELFPAY ==
[2020-06-02 10:24] VITALS: BMI 28.0
[2020-06-05 16:23] VITALS: BP 98/81; PULSE 61; RESP 16; TEMP 36.6; O2SAT 100; BMI 26.5
--- NOTE | 2020-06-05 16:50 | ED.VISSUMM ---
- ER Visit Summary Date of Service: 06/05/20 Chief Complaint: Left pelvic pain History of Present Illness: The patient is a 34 F 3 of PCOS. States she started her menstrual period yesterday as a first when she has had about 5 months. And started having left pelvic pain which she believes is her ovary. Vaginal bleeding but no discharge. No history of STD. No history of PID. No fever. No chills. Some dysuria. Nausea but no vomiting. No diarrhea. She does not believe she is . Physical Examination: Young female complain pain vital signs stable afebrile. H EENT exam unremarkable. Lungs are clear. Heart regular rhythm no murmur rate about 60. Abdomen soft nondistended normal bowel sounds no peritoneal signs. Her left lower quadrant more in her pelvis very low immediately tender to palpation. Right lower quadrant is unremarkable nontender. Extremities moves all 4. No edema. Back nontender. Neurologically she is awake alert. Test Results: Urine negative no signs of infection. Serum test negative. Pelvic ultrasound done by the inventory technician read by the radiologist shows a left ovarian cyst of 2.3 cm with normal arterial flow. Emergency Department Course and Treatment: Patient with left pelvic pain. Pelvic exam with Toradol for pain, Zofran for nausea. Urinalysis and test. Patient also treated with 2 p.o. [place] for pain. I discussed all test results with her. Repeat exam at 8 PM she is doing well. Treatment Plan: 1. Limited [place] 6 no refill for pain. Otherwise Motrin. Disposition: Discharge Impression: Acute left-sided pelvic pain secondary to left sided 2.3 cm ovarian cyst. History of PCOS This note was generated with [employer] dictation software. It may contain incorrect words, spelling, and punctuation that were not noted in review of the chart prior to signing ED Disposition - Plan for ED Patient: Referrals: Roger Cohen MD [Primary Care Provider] -
--- NOTE | 2020-06-05 16:56 | US_ITS ---
STUDY: ULTRASOUND OF THE FEMALE PELVIS - COMPLETE REASON FOR EXAM: Female, 34 years old. LLQ PAIN SEVERE, X 1 DAY STARTED WITH MENSES LMP: 06/04/2020 TECHNIQUE: Endovaginal TECHNICAL QUALITY: Adequate. COMPARISON: None. FINDINGS: The uterus is anteverted and is in a midline position. The uterus measures 9.7 x 5.7 x 5.0 cm. Possible small nabothian cysts at the uterine cervix. The endometrium measures 4 mm in thickness, and is hyperechoic. There is no demonstrated endometrial mass. There is no demonstrated myometrial mass. The patient does not have an I.U.D. The right ovary is visualized. The right ovary measures 3.4 x 2.4 x 1.6 cm. There is no right ovarian cyst or ovarian mass. There is no visualized right adnexal mass or complex lesion. There is normal arterial and normal venous vascularity. The left ovary is visualized. The left ovary measures 5.0 x 3.0 x 2.1 cm. There is a 2.3 cm left ovarian cystic nodule. There is normal arterial and normal venous vascularity. There is no fluid in the cul-de-sac. US/Transvaginal Non- IMPRESSION: Slightly complex left ovarian cystic nodule. Nabothian cysts at the cervix. Electronically Signed: William Daniel DO at 18:06 EDT Tel [phone], Service support ,
[2020-06-05] MEDS: Ketorolac 30 MG/ML Syringe IV (17:18)
[2020-06-05] MEDS: Ondansetron 4 MG/2 ML Vial IV (17:19)
[2020-06-05 18:04] LABS: Internal QC Validated? YES +Cl - CLEAR BKGD; Pregnancy, Serum, hCG Quali. NEGATIVE Negative
[2020-06-05 19:00] LABS: Bacteria 0 SEEN /hpf (None Seen); Red Blood Cells-Urine 0 SEEN /hpf (0-5)
[2020-06-05 19:04] VITALS: BP 107/82; PULSE 80; RESP 15; O2SAT 98
[2020-06-05 19:36] LABS: Color, Urine Yellow (Yellow); Glucose, Dipstick Normal (Normal); Ketone-Dipstick 5 mg/dl (Negative); Leukocyte Esterase-Dipstick 25 /ul (Negative); Nitrite-Dipstick Negative (Negative); Occult Blood-Urine 25 /ul (Negative); Protein-Dipstick 30 mg/dl (Negative); Specific Gravity, Urine 1.025 (1.002-1.030); Urine Bilirubin Dipstick Negative (Negative); Urine Clarity Clear (Clear); Urine Urobilinogen 1 mg/dl (Normal)
[2020-06-05 19:43] LABS: Mucous, Urine 1+ /hpf (<or=2+); Squamous Epithelial Cells - UA 0-5 SEEN /hpf (5-10); White Blood Cells 0-5 SEEN /hpf (0-5)
--- NOTE | 2020-06-05 20:05 | ED.DEP ---
ED Disposition - Plan for ED Patient: Disposition: Home or Assisted Living Instructions: ED Cyst Ovarian Prescriptions: Hydrocodone/Acetaminophen [[place] 5-325 Tablet] 1 ea PO Q6H PRN PRN 2 Days #6 tab PRN Reason: Pain Or Fever Prescription Printed Referrals: Maria Regan MD [STAFF PHYSICIAN] - 1-2 Weeks Additional Instructions: Use Motrin, ibuprofen or Aleve for pain. Limited [place] for more severe pain. Follow-up with your REAL ESTATE OPERATIONS MANAGER for your left ovarian cyst.
[2020-06-05] MEDS: HYDROcodone Bitartrate/Apap 5/325 Tablet PO (20:12)
[2020-06-05 20:44] VITALS: BP 123/62; PULSE 74; RESP 16; O2SAT 98
== END 2020-06-05 20:46 | disposition home or self-care (01) ==
PROVIDERS: Emergency Provider Emergency Medicine; PCP Internal Medicine
DX: N83.202 Unspecified ovarian cyst, left side (principal); E28.2 Polycystic ovarian syndrome; R10.2 Pelvic and perineal pain; R30.0 Dysuria; Z72.0 Tobacco use
CPT/HCPCS: 36415; 76830; 81001; 84703; 93976; 96374; 96375; 99284; A4216; J2405

== ENCOUNTER → 2020-06-06 | Outpatient (CLI) | payer MEDICAID, SELFPAY ==
[2020-06-06 09:13] VITALS: BMI 26.5
[2020-06-11 12:47] LABS: HPV APTIMA, High Risk Negative (Negative)
== END | disposition home or self-care (01) ==
LOC: LABSPEC 12:33
PROVIDERS: PCP Internal Medicine; Referring Provider Nurse Practitioner Women's Health; Visit Provider Nurse Practitioner Women's Health
DX: Z12.4 Encounter for screening for malignant neoplasm of cervix (principal)
CPT/HCPCS: 87624; 88175; G0145

== ENCOUNTER → 2020-06-19 08:17 | Outpatient (CLI) | payer MEDICAID, SELFPAY ==
[2020-06-06 09:13] VITALS: BMI 26.5
[2020-06-19 09:36] LABS: Cholesterol 231 mg/dL (200); Estradiol 76.3 pg/mL; Follicle Stimulating Hormone 5.7 mIU/mL; Glucose 91 mg/dL (74-106); High Density Lipoprotein 42 mg/dL; Prolactin 9.6 ng/mL; Thyroid Stim Hormone (TSH) 1.26 uIU/mL (0.358-3.74); Triglycerides 245 mg/dL; Very Low Density Lipoprotein 49 mg/dL (5-40)
== END ==
PROVIDERS: PCP Internal Medicine; Referring Provider Nurse Practitioner Women's Health; Visit Provider Nurse Practitioner Women's Health
DX: E28.2 Polycystic ovarian syndrome (principal); Z13.220 Encounter for screening for lipoid disorders; Z13.1 Encounter for screening for diabetes mellitus; Z13.29 Encounter for screening for other suspected endocrine disorder
CPT/HCPCS: 36415; 80061; 82670; 82947; 83001; 84146; 84443

== ENCOUNTER → 2020-08-06 15:01 | Outpatient (CLI) | payer MEDICAID, SELFPAY ==
[2020-06-06 09:13] VITALS: BMI 26.5
--- NOTE | 2020-08-06 15:02 | US_ITS ---
STUDY: ULTRASOUND OF THE FEMALE PELVIS - COMPLETE REASON FOR EXAM: Female, 34 years old. F/U LT OVARIAN CYST LMP: 06/16/2020 TECHNIQUE: Transabdominal real time exam with gallo scale image documentation. TECHNICAL QUALITY: Adequate. COMPARISON: Report of a prior pelvic ultrasound from 06/05/2020 FINDINGS: The uterus is anteverted and is in a midline position. The uterus measures 10.0 x 6.4 x 4.8 cm. Multiple nabothian cysts of the cervix. The endometrium measures 6.4 mm in thickness, and is hyperechoic. There is no demonstrated endometrial mass. There is no demonstrated myometrial mass. I.U.D. - The patient does not have an I.U.D. The right ovary is visualized. The right ovary measures 3.0 x 3.2 x 3.8 cm. There is no right ovarian cyst or ovarian mass. There is no visualized right adnexal mass or complex lesion. There is normal arterial and normal venous vascularity. The left ovary is visualized. The left ovary measures 2.8 x 2.7 x 4.9 cm. There is no left ovarian cyst or ovarian mass. There is no visualized left adnexal mass or complex lesion. There is normal arterial and normal venous vascularity. There is no fluid in the cul-de-sac. The pre void volume of the bladder was 323 ml. There are facet Polycystic ovary disease: No. US/Pelvic (Non ) IMPRESSION: Normal female pelvis. Electronically Signed: Charis Martinez MD at 23:57 EST , Service support ,
--- NOTE | 2020-08-06 15:02 | US_ITS ---
STUDY: ULTRASOUND OF THE FEMALE PELVIS - COMPLETE REASON FOR EXAM: Female, 34 years old. F/U LT OVARIAN CYST LMP: 06/16/2020 TECHNIQUE: Transabdominal real time exam with gallo scale image documentation. TECHNICAL QUALITY: Adequate. COMPARISON: Report of a prior pelvic ultrasound from 06/05/2020 FINDINGS: The uterus is anteverted and is in a midline position. The uterus measures 10.0 x 6.4 x 4.8 cm. Multiple nabothian cysts of the cervix. The endometrium measures 6.4 mm in thickness, and is hyperechoic. There is no demonstrated endometrial mass. There is no demonstrated myometrial mass. I.U.D. - The patient does not have an I.U.D. The right ovary is visualized. The right ovary measures 3.0 x 3.2 x 3.8 cm. There is no right ovarian cyst or ovarian mass. There is no visualized right adnexal mass or complex lesion. There is normal arterial and normal venous vascularity. The left ovary is visualized. The left ovary measures 2.8 x 2.7 x 4.9 cm. There is no left ovarian cyst or ovarian mass. There is no visualized left adnexal mass or complex lesion. There is normal arterial and normal venous vascularity. There is no fluid in the cul-de-sac. The pre void volume of the bladder was 323 ml. There are facet Polycystic ovary disease: No. US/Transvaginal Non- IMPRESSION: Normal female pelvis. Electronically Signed: Charis Martinez MD at 23:57 EST , Service support ,
== END ==
PROVIDERS: PCP Internal Medicine; Referring Provider Nurse Practitioner Women's Health; Visit Provider Nurse Practitioner Women's Health
DX: N83.202 Unspecified ovarian cyst, left side (principal)
CPT/HCPCS: 76830; 76856

== ENCOUNTER → 2020-10-21 | Outpatient (CLI) | payer MEDICAID, SELFPAY ==
[2020-10-21 15:18] VITALS: BMI 26.4
== END | disposition home or self-care (01) ==
LOC: LABSPEC 16:37
PROVIDERS: PCP Internal Medicine; Referring Provider Nurse Practitioner Women's Health; Visit Provider Nurse Practitioner Women's Health
DX: R30.0 Dysuria (principal)
CPT/HCPCS: 87086; 87088

== ENCOUNTER 2021-04-03 09:05 | Emergency (ER) | payer MEDICAID, SELFPAY ==
[2020-10-21 15:18] VITALS: BMI 26.4
[2021-04-03 09:06] VITALS: BP 114/54; PULSE 74; RESP 20; TEMP 36.6; O2SAT 99; BMI 25.7
[2021-04-03 09:24] VITALS: BP 114/54; PULSE 74; RESP 18; TEMP 36.3; O2SAT 99
--- NOTE | 2021-04-03 09:25 | EDS_ITS ---
HPI History of Present Illness Chief Complaint: Back Informant: patient Narrative Narrative: Patient is a 35-year-old female with a history of PCOS, depression who presents to the emergency department for upper back pain. This initially started 2 weeks ago when working out. She states she was doing pool exercises with her upper extremities whenever she felt pain in the left upper back. The pain has been constant since then. It is not worse with movement anymore. No associated chest pain or shortness of breath. She did take ibuprofen as well as one of her mother's [place]. This does help temporarily. She currently rates the pain as a 5 out of 10. Her other concern was her urine has turned a dark orange color lately. She states that there is a film over it as well. She does not see any gross blood whenever she urinates. She denies any urinary symptoms otherwise. No low back pain no abdominal pain. She has been mildly constipated. No nausea/vomiting. No fevers or chills. [facility] Medical History (Updated 04/03/21 @ 11:[address] Christian Simmons DO) Abnormal bruising Back pain Chest pain Fatigue Knee pain Migraines Shoulder pain Home Medications buspirone 5 mg PO BID 06/05/20 [History Last Taken Unknown] pantoprazole 40 mg PO DAILY 06/05/20 [History Last Taken Unknown] cyclobenzaprine 10 mg PO TID PRN 3 Days #9 tab 04/03/21 [Rx Last Taken Unknown] lidocaine [Lidoderm] 1 patch TOPICAL DAILY 3 Days #1 ea 04/03/21 [Rx Last Taken Unknown] Allergy/AdvReac Type Severity Reaction Status Date / Time dicyclomine [From Bentyl] Allergy Other Verified 04/03/21 09:08 Penicillins Allergy Rash Verified 04/03/21 09:08 Surgical History H/O dilation and curettage Social History Smoking Status: Current every day smoker tobacco type: cigarettes alcohol intake: never substance use type: does not use caffeine: Yes what type of physical activity do you participate in: none seatbelt use: always do you feel safe at home: Yes additional social history: Single-Boyfriend- Devonte- Solar Manufacturer'S Representative/Chemical Instrumentation Officer 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 [facility] ED Constitutional Constitutional ED: Denies chills or fever(s) Eyes Eyes: Denies change in vision ENT ENT ED: Denies epistaxis or rhinorrhea Cardiovascular Cardiovascular: Denies chest pain or palpitations Respiratory/Chest Respiratory/Chest: Denies cough, dyspnea or dyspnea on exertion Gastrointestinal Gastrointestinal: Denies abdominal pain, diarrhea, nausea or vomiting Genitourinary Genitourinary ED: Denies dysuria, hematuria or urinary frequency Musculoskeletal Musculoskeletal: Reports back pain; Denies neck pain Integumentary Denies rash Neurologic Neurologic: Denies dizziness, headache(s) or weakness EXAM Physical Exam Const Vital Signs: 04/03/21 09:06 04/03/21 09:24 Temperature 97.9 F 97.4 F L Temperature Source Temporal Temporal Pulse Rate 74 74 Respiratory Rate 20 H 18 Blood Pressure 114/54 L 114/54 L Blood Pressure Mean 74 74 Pulse Ox 99 99 Oxygen Delivery Method Room Air Room Air Positive well nourished and well developed General Appearance ED: well developed and NAD HEENT Reports normocephalic, head/scalp atraumatic and moist mucous membranes Eyes PERRL and EOMs intact bilaterally Neck supple Chest Wall inspection of chest normal Resp normal respiratory effort and clear to auscultation bilaterally Auscultation: Negative for rales, rhonchi or wheezes Cardio regular rate, regular rhythm and no murmurs GI normal to inspection, nondistended, normoactive bowel sounds and non-tender Palpation: soft; Negative for guarding or rebound tenderness present Back/Spine no CVA tenderness Back/Spine Narrative: No reproducible pain. No obvious mass or deformity appreciated. Extremity normal to inspection Extremity Narrative: 5 out of 5 muscle strength throughout. Neurovascular intact. General Extremety ED: Negative for edema or tenderness General Extremity: Negative for edema Neuro CN's II-XII intact bilaterally and no sensory deficits noted Sensorium / Orientation: alert Motor Exam: strength 5/5 throughout Psych mental status grossly normal Skin no rashes or lesions noted MDM MDM MDM Narrative Medical decision making narrative: Patient presents to the emergency department for upper back pain after lifting weights 2 weeks ago. Her main concern was her urine started turning a dark orange color. She denies any urinary symptoms. Her pain is mostly in the upper thoracic region. This is not near the CVA region. She otherwise has a benign exam. Her vital signs are within normal limits. Will check x-ray of the chest and obtain urinalysis. Patient's urine does not show any evidence of infection or blood. Her chest x- ray did not show any acute cardiopulmonary abnormality. On reexamination she is resting comfortably. She has remained stable throughout ED stay. Will recommend symptomatic treatment at home. She is given a prescription for Lidoderm patch as well as Flexeril. Patient is to follow-up with her PCP. Return precautions are reviewed. She understands and is agreeable this plan. Discharged home in stable condition. All questions were answered. Lab Data Labs: Laboratory Results - last 24 hr 04/03/21 10:28 Urine Color Yellow Urine Clarity Clear Urine pH 7.0 Ur Specific Butler 1.030 Urine Protein Negative Urine Glucose (UA) Normal Urine Ketones Negative Urine Occult Blood Negative Urine Nitrite Negative Urine Bilirubin Negative Urine Urobilinogen Normal Ur Leukocyte Esterase Negative Urine RBC 0 SEEN Urine WBC 0 SEEN Ur Squamous Epith Cells 0-5 SEEN Urine Bacteria 0 SEEN Urine Mucus 0 SEEN Urine Test Negative Radiography Diagnostic Testing: Radiology Impression Chest X-Ray 04/03/21 09:30 IMPRESSION: Normal x-ray examination of the chest. Electronically Signed: Farhat Richmond MD at 9:43 EDT , Service support , Two-view x-ray interpreted by myself. Clear lung trujillo bilaterally. No osseous abnormality. Normal cardiac silhouette. Normal mediastinum. Agree with radiologist interpretation. Discharge Plan Triage Chief Complaint: Back ED Provider: Christian Simmons Dx/Rx/DC Orders Clinical Impression: Back pain Instructions: ED Back Pain (Acute or Chronic) Prescriptions: New lidocaine [Lidoderm] 5 % adhesive patch,medicated 1 patch topical DAILY 3 Days Qty: 1 RF: 0 cyclobenzaprine 10 mg tablet 10 mg PO TID PRN (Reason: muscle spasm) 3 Days Qty: 9 RF: 0 No Action buspirone 5 MG tablet 5 mg PO BID RF: 0 pantoprazole 40 MG tablet 40 mg PO DAILY RF: 0 Primary Care Provider: Roger Cohen Referrals: Roger Cohen MD [Primary Care Provider] - 3-5 Days if not improving Disposition Disposition: Home, Self Care
--- NOTE | 2021-04-03 09:30 | RAD_ITS ---
STUDY: X-RAY CHEST REASON FOR EXAM: Female, 35 years old. Upper back pain following injury. TECHNIQUE: PA and lateral views of the chest. COMPARISON: None. FINDINGS: The lungs are clear and expanded. There is no demonstrated pleural abnormality. Normal size heart. Normal mediastinum and nathanael. Normal visualized pulmonary arteries. Normal visualized aortic arch and descending thoracic aorta. Normal visualized thoracic spine. Normal visualized ribs, clavicles, and shoulders. There is no demonstrated abnormality of the visualized soft tissue structures of the upper abdomen. RAD/Chest PA and Lateral IMPRESSION: Normal x-ray examination of the chest. Electronically Signed: Farhat Richmond MD at 9:43 EDT , Service support ,
[2021-04-03 10:32] LABS: Bacteria 0 SEEN /hpf (None Seen); Mucous, Urine 0 SEEN /hpf (<or=2+); Red Blood Cells-Urine 0 SEEN /hpf (0-5); White Blood Cells 0 SEEN /hpf (0-5)
[2021-04-03 10:37] LABS: Color, Urine Yellow (Yellow); Glucose, Dipstick Normal (Normal); Ketone-Dipstick Negative (Negative); Leukocyte Esterase-Dipstick Negative /ul (Negative); Nitrite-Dipstick Negative (Negative); Occult Blood-Urine Negative /ul (Negative); Protein-Dipstick Negative (Negative); Urine Bilirubin Dipstick Negative (Negative); Urine Clarity Clear (Clear); Urine Urobilinogen Normal (Normal)
[2021-04-03 10:59] LABS: Internal QC Validated? YES +Cl - CLEAR BKGD; Pregnancy, Urine Negative Negative; Squamous Epithelial Cells - UA 0-5 SEEN /hpf (5-10)
[2021-04-03 11:13] VITALS: PULSE 81; RESP 16; O2SAT 99
--- NOTE | 2021-04-03 11:15 | ED.RN ---
THIS NURSE REVIEWED D/C INSTRUCTIONS WITH PT. PT VERBALIZED UNDERSTANDING OF INSTRUCTIONS. PT DENIES FURTHER NEEDS OR QUESTIONS AT THIS TIME
== END 2021-04-03 11:16 | disposition home or self-care (01) ==
PROVIDERS: Emergency Provider Emergency Medicine; PCP Internal Medicine
DX: M54.6 Pain in thoracic spine (principal); F32.9 Major depressive disorder, single episode, unspecified; Z79.899 Other long term (current) drug therapy; F17.210 Nicotine dependence, cigarettes, uncomplicated
CPT/HCPCS: 71046; 81001; 81025; 99282

== ENCOUNTER → 2021-09-04 08:42 | Outpatient (CLI) | payer MEDICAID, SELFPAY ==
--- NOTE | 2021-09-04 08:55 | BI_ITS ---
MAMMOGRAPHY - BILATERAL DIAGNOSTIC REASON FOR EXAM: Female, 35 years old. Pea-sized lump on the left nipple. PERTINENT HISTORY: Non-contributory. TECHNIQUE: Digital bilateral breast robert (3D mammographic acquisition) in the CC and MLO projections. 2-D mediolateral oblique (MLO) and craniocaudad (CC) views of both breasts were obtained. CAD: Full Field Digital Mammography with Computer Added Detection was performed. COMPARISON: None. Baseline examination. FINDINGS: Breast Composition: The breasts are extremely dense, which lowers the sensitivity of mammography. There are no dominant masses or suspicious calcifications. No other significant abnormalities are identified. BI/DIAG MAMM W/CAD, BILAT IMPRESSION: Negative diagnostic mammogram. With the patient''s history of a lump in the region of the left nipple, targeted ultrasound examination is recommended. ASSESSMENT CATEGORY: BIRADS Category 0: Incomplete. Need additional imaging evaluation. A letter regarding these results will be sent to the patient by the facility within 30 days. Approximately 10% of breast cancers are not detected by mammography. A normal mammogram should not delay biopsy of a clinically suspicious abnormality. Electronically Signed: Farhat Richmond MD at 10:11 EST , Service support ,
--- NOTE | 2021-09-04 08:55 | US_ITS ---
STUDY: ULTRASOUND BREAST - LEFT REASON FOR EXAM: Female, 35 years old. Palpable lump in the region of the ampulla. TECHNIQUE: Axial and longitudinal images of the LEFT breast were performed with a high resolution ultrasound transducer. # OF IMAGES: 44 COMPARISON: Comparison is made with prior mammogram done earlier in day. FINDINGS: LEFT Breast: The alveolar region of the left breast was examined by ultrasound. No sonographic abnormality is seen. US/Breast Complete Unilateral IMPRESSION: No sonographic abnormality is seen. ASSESSMENT CATEGORY: BIRADS Category 1: Negative. A letter regarding these results will be sent to the patient by the facility within 30 days. Electronically Signed: Farhat Richmond MD at 10:52 EST , Service support ,
== END ==
PROVIDERS: PCP Internal Medicine; Referring Provider Obstetrics & Gynecology; Visit Provider Obstetrics & Gynecology
DX: N63.20 Unspecified lump in the left breast, unspecified quadrant (principal)
CPT/HCPCS: 76641; 77062; 77066; G0279

== ENCOUNTER 2021-10-07 19:26 | Emergency (ER) | payer MEDICAID, SELFPAY ==
[2021-10-07 19:27] VITALS: BP 119/36; PULSE 80; RESP 18; TEMP 36.6; O2SAT 98; BMI 25.7
--- NOTE | 2021-10-07 19:58 | EKG12_ITS ---
Test Reason : CHEST PAIN Blood Pressure : / mmHG Vent. Rate : 062 BPM Atrial Rate : 062 BPM P-R Int : 150 ms QRS Dur : 092 ms QT Int : 406 ms P-R-T Axes : 042 -04 044 degrees QTc Int : 412 ms Normal sinus rhythm Lo Confirmed by SHELIA PORTILLO, SHIVANI ([id number]), general expeditor RUSSELL RAMIREZ ([id number]) on 10/08/2021 10:55:58 AM Referred By: ER PHYS Confirmed By:SHIVANI BASS MD
--- NOTE | 2021-10-07 20:07 | RAD_ITS ---
INDICATION: chest pain EXAMINATION/TECHNIQUE: X-RAY - XR Chest 1 View COMPARISON: Chest x-ray 04/03/2021 FINDINGS: LINES/DEVICES: None. LUNGS: Symmetric normal lung volumes. No airspace opacity or abnormal interstitial pattern. No nodule or mass. No pleural effusion or pneumothorax. MEDIASTINUM AND CARDIOVASCULAR STRUCTURES: Normal size and contour of the cardiomediastinal silhouette. No evidence of pulmonary vascular congestion. BONES AND SOFT TISSUES: No abnormality within limits of the exam. RAD/Chest 1 View (Portable) IMPRESSION: 1. No radiographic evidence of acute cardiopulmonary disease. Electronically Signed: Amauri Coleman DO at 20:51 EST Tel , Service support ,
[2021-10-07 20:20] LABS: Absolute Lymphocyte Count 2.84 X10^3/uL (0.83-4.51); Absolute Neutrophil Count 5.5 X10^3/uL (2.0-7.7); Basophil# 0.04 X10^3/uL; Basophil% 0.4 % (0-1); Eosinophil# 0.12 X10^3/uL; Eosinophils% 1.3 % (0-5); Hematocrit 41.9 % (37-47); Hemoglobin 13.8 g/dL (12.0-15.0); Lymphocyte # 2.84 X10^3/ul (0.83-4.51); Lymphocyte % 31.3 % (19-41); Mean Corp Hgb Conc 32.9 g/dL (32-36); Mean Corpuscular Hgb 29.4 pg (27.0-32.0); Mean Corpuscular Volume 89.1 fL (81-99); Mean Platelet Vol. 10.3 fl (6.2-12.0); Monocyte# 0.59 X10^3/uL; Monocyte% 6.5 % (0-10); NRBC Flagged by Analyzer 0 % (0-5); Neutrophil # 5.46 X10^3/uL (2.7-7.7); Neutrophil % 60.2 % (47-70); Platelet Count 306 K/mm3 (150-450); RBC Distribution Width CV 13.2 % (11.6-14.6); RBC Distribution Width SD 43.4 fl (35.1-43.9); White Blood Count 9.1 K/mm3 (4.4-11.0)
[2021-10-07 20:24] LABS: Anion Gap 7 (5-15); BUN 16 mg/dL (7-18); BUN/Creat Ratio 25.3 RATIO (10-20); Calcium,Total 9.3 mg/dL (8.5-10.1); Chloride 109 mmol/L (98-107); Creatinine, Serum 0.63 mg/dL (0.55-1.02); EST Glomerular Filtration Rate 114 mL/min (>60); Est Glom Filt Rate - Afr Amer 138 mL/min (>60); Estimated Creatinine Clearance 105.07 ml/min; Glucose 87 mg/dL (74-106); Potassium 3.8 mmol/L (3.5-5.1); Sodium Level 140 mmol/L (136-145); Troponin-I HS 4 pg/mL (3.0-54.0)
[2021-10-07 20:49] VITALS: PULSE 63; RESP 17
--- NOTE | 2021-10-07 21:03 | ED.VIS.CHEST ---
HPI History of Present Illness Chief Complaint: Chest Pain Informant: patient Onset/Context/Timing Onset: Days (3) Activity at onset: gradual and onset Timing: Continuous Quality: Positive for Aching and Stabbing Location: Left Chest (Into left upper back) Current Severity: Severe Maximum Severity: Severe Worsened By: Breathing and Coughing; Not Worsened By Exertion Relieved By: Nothing Associated Symptoms: Positive for Cough (Was coughing but now resolved) and Fever (Did have fever but now resolved); Negative for Nausea, Vomiting, Diaphoresis, Dyspnea, Lightheadedness and Palpitations Narrative Narrative: Patient presents with pleuritic severe left hemithorax discomfort for the last 3 days or so, severe today. No history of DVT or PE, no recent leg pain or swelling, no recent travel out of the area, immobilization, surgery, hospitalization. She was vaccinated against Covid, she states she developed symptoms of Covid 09/28, she did a home test the next day that was positive, she had fevers, chills, myalgias, cough, fatigue and she states after 2 or 3 days the symptoms basically all went away and now she is dealing with this chest discomfort. [facility] Medical History (Updated 10/07/21 @ 22:[address] Al Hassan MD) Abnormal bruising Back pain Chest pain Fatigue Knee pain Migraines Shoulder pain Home Medications escitalopram oxalate 10 mg tablet 10 mg PO DAILY 08/26/21 [History Last Taken Unknown] hydrocodone-acetaminophen 1 tab PO Q4H PRN PRN 2 Days #10 tablet 10/07/21 [Rx Last Taken Unknown] naproxen 500 mg PO BID PRN #20 tab 10/07/21 [Rx Last Taken Unknown] Allergy/AdvReac Type Severity Reaction Status Date / Time dicyclomine [From Bentyl] Allergy Other Verified 08/26/21 15:26 Penicillins Allergy Rash Verified 08/26/21 15:26 Surgical History H/O dilation and curettage Social History Smoking Status: Current every day smoker tobacco type: cigarettes alcohol intake: current details: occasionally substance use type: does not use caffeine: Yes what type of physical activity do you participate in: none seatbelt use: always do you feel safe at home: Yes additional social history: Single-Boyfriend- Devonte- Lead Systems Architect/Manager 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 [facility] ED Constitutional Constitutional ED: Reports body ache(s), chills, fatigue, fever(s) and malaise; Denies headache(s) Eyes Eyes: Denies change in vision or diplopia ENT ENT ED: Denies rhinorrhea or sore throat Cardiovascular Cardiovascular: Reports as per HPI and chest pain; Denies palpitations or pedal edema Respiratory/Chest Respiratory/Chest: Reports cough; Denies dyspnea or dyspnea on exertion Gastrointestinal Gastrointestinal: Reports diarrhea; Denies abdominal pain, nausea or vomiting Genitourinary Genitourinary ED: Denies dysuria or hematuria Musculoskeletal Musculoskeletal: Denies back pain or neck pain Integumentary Denies abscess or rash Neurologic Neurologic: Denies headache(s), paresthesias or weakness Psychiatric Psychiatric: Denies anxiety or suicidal thoughts EXAM Physical Exam Const Vital Signs: 10/07/21 19:27 10/07/21 20:47 10/07/21 20:49 Temperature 97.9 F Temperature Source Oral Pulse Rate 80 63 Respiratory Rate 18 17 Blood Pressure 119/36 L Blood Pressure Mean 63 Pulse Ox 98 Oxygen Delivery Method Room Air Room Air Positive well nourished and well developed Constitutional Narrative: Well-appearing, no distress General Appearance ED: well developed and NAD HEENT Reports moist mucous membranes normocephalic and atraumatic Eyes PERRL and EOMs intact bilaterally Neck full ROM and supple Chest Wall inspection of chest normal and palpation of chest normal Chest Narrative: Nontender throughout Resp normal respiratory effort and clear to auscultation bilaterally Resp Narrative: Patient splinting on deep inspiration due to pain left thorax Cardio regular rate, regular rhythm and no murmurs Rate: Negative for tachycardic GI non-tender and non-distended Auscultation: normoactive bowel sounds Palpation: soft Back/Spine no CVA tenderness General Back: other FROM Extremity normal to inspection and no calf tenderness General Extremety ED: Negative for edema, pulses abnormal or tenderness General Extremity: Negative for edema or pulses abnormal Neuro oriented x3, CN's II-XII intact bilaterally and no sensory deficits noted Sensorium / Orientation: awake and alert Motor Exam: strength 5/5 throughout Skin no rashes or lesions noted and no wounds MDM MDM MDM Narrative Medical decision making narrative: Patient presents about 10 days out from the beginning of Covid symptoms, with symptoms that are very concerning for pulmonary embolus, and Covid puts her at a higher risk of that and she is in the correct timeframe. Her D-dimer was normal, however I had a high pretest probability; the patient was in a lot of pain and I decided to do CT angiography anyway. It was normal. She does not have any EKG findings or suspicion for pericarditis and her troponin is negative arguing against myocarditis. Given all of this, I reassured the patient I think she is stable for discharge home. Her vital signs are normal including her oxygen levels 98% on room air. She was given morphine here, as well as Toradol after the CT results returned. Prescribed anti-inflammatories and some [place], if she is not improving after the weekend I advised close outpatient follow-up, if indeed this is more pericarditis she would need repeat EKG to detect it since hers is normal today. Lab Data Attestation: I reviewed the patient's lab results. Labs: Laboratory Results - last 24 hr 10/07/21 10/07/21 10/07/21 19:42 19:42 19:55 WBC 9.1 RBC 4.70 Hgb 13.8 Hct 41.9 MCV 89.1 MCH 29.4 MCHC 32.9 RDW Std Deviation 43.4 RDW Coeff of Tulio 13.2 Plt Count 306 MPV 10.3 Immature Gran % (Auto) 0.300 Neut % (Auto) 60.2 Lymph % (Auto) 31.3 Woodson % (Auto) 6.5 Eos % (Auto) 1.3 Baso % (Auto) 0.4 Absolute Neuts (auto) 5.5 Absolute Lymphs (auto) 2.84 Nucleated RBC % 0 D-Dimer Quant (PE/DVT) 0.38 Sodium 140 Potassium 3.8 Chloride 109 H Carbon Dioxide 24.0 Anion Gap 7 BUN 16 Creatinine 0.63 Estim Creat Clear Calc 105.07 Est GFR (MDRD) Af Amer 138 Est GFR (MDRD) Non-Af 114 BUN/Creatinine Ratio 25.3 H Glucose 87 Calcium 9.3 Troponin I High Sens 4 Radiography Diagnostic Testing: Clinical Impression(s) from Imaging Studies Chest X-Ray 10/07/21 20:07 IMPRESSION: 1. No radiographic evidence of acute cardiopulmonary disease. Electronically Signed: Amauri Coleman DO at 20:51 EST Tel , Service support , Chest CTA 10/07/21 21:30 IMPRESSION: No pulmonary embolism. Clear lungs with no acute cardiopulmonary disease. Electronically Signed: Amauri Coleman DO at 22:38 EST Tel , Service support , EKG Initial EKG: Attestation: I personally reviewed and interpreted this EKG as follows: Interpretation: Sinus Rhythm and No Acute Injury Pattern Comments: Sinus rhythm at 62. Normal axis. No S1Q3T3 pattern. Discharge Plan Triage Chief Complaint: Chest Pain ED Provider: Al Hassan Dx/Rx/DC Orders Clinical Impression: Pleurisy, COVID-19 Instructions: Coronavirus Disease 2019 (COVID-19): Caring for Yourself or Others, ED Pleurisy Prescriptions: New hydrocodone-acetaminophen [hydrocodone-acetaminophen] 1 TABLET tablet 1 tab PO Q4H PRN PRN (Reason: Pain) 2 Days Qty: 10 RF: 0 naproxen 500 MG tablet 500 mg PO BID PRN Qty: 20 RF: 0 No Action escitalopram oxalate [Lexapro] 10 mg tablet 10 mg PO DAILY RF: 0 Primary Care Provider: Roger Cohen Referrals: Roger Cohen MD [Primary Care Provider] - 3-5 Days if not improving Disposition Disposition: Home, Self Care
[2021-10-07 21:23] LABS: D-Dimer Quantitative (DVT/PE) 0.38 FEU/ug/m (0.27-0.49)
--- NOTE | 2021-10-07 21:30 | CT_ITS ---
STUDY: CTA CHEST REASON FOR EXAM: Female, 35 years old. pleuritic L CP, covid, elevated d-dimer RADIATION DOSAGE (If Supplied By Facility): CTDIvol = ( 9.13 ) mGy, DLP = ( 472.32 ) mGycm TECHNIQUE: The examination was performed with the intravenous administration of IV 100mL Isovue-370. Post-processing of the angiographic images was performed, with multiplanar reformation and 3D reconstruction. Individualized dose optimization techniques were used for this CT. COMPARISON: 10/07/2021 chest x-ray. FINDINGS: Adequate density of contrast in the pulmonary arteries and no significant motion; diagnostic exam. No pulmonary artery filling defect to suggest pulmonary embolism. There is no evidence of right heart strain. Normal enhancement of the bilateral peripheral pulmonary arteries. There is no demonstrated pulmonary embolism. Normal size heart. No pericardial fluid. No mediastinal or hilar lymphadenopathy. 2.5 x 2.9 cm fluid density adjacent to the base of the right heart consistent with small pericardial cyst. No mass or filling defect. No bronchiectasis. No peribronchial thickening. The lungs are well expanded. No airspace opacity or abnormal interstitial pattern. No nodule or mass. No pleural effusion or pneumothorax. Thyroid gland and base of the neck are within normal limits. No axillary lymphadenopathy. No fracture of focal osseous lesion. Visualized solid and hollow viscus organs are within normal limits of the exam. Note of right hepatic artery originating from the superior mesenteric artery; variant anatomy. CT/CTA Chest W/WO Contrast IMPRESSION: No pulmonary embolism. Clear lungs with no acute cardiopulmonary disease. Electronically Signed: Amauri Coleman DO at 22:38 EST Tel , Service support ,
[2021-10-07] MEDS: Ondansetron 4 MG/2 ML Vial IV (22:47)
[2021-10-07] MEDS: Morphine 4 MG/ML Syringe IV (22:47)
[2021-10-07] MEDS: 0.9% Normal Saline 1,000 ML 999 ML IV (22:47)
[2021-10-07] MEDS: Ketorolac 30 MG/ML Syringe IV (23:13)
[2021-10-07 23:32] VITALS: BP 116/70; PULSE 79; RESP 18; O2SAT 96
== END 2021-10-07 23:32 | disposition home or self-care (01) ==
PROVIDERS: Emergency Provider Emergency Medicine; PCP Internal Medicine; Visit Provider Emergency Medicine
DX: U07.1 COVID-19 (principal); F17.210 Nicotine dependence, cigarettes, uncomplicated
CPT/HCPCS: 71045; 71275; 80048; 84484; 85025; 85379; 93005; 96361; 96374; 96375; 99285; Q9967; A4216; J2405

== ENCOUNTER 2021-10-09 09:10 | Emergency (ER) | payer MEDICAID, SELFPAY ==
[2021-10-09 09:10] VITALS: BP 122/73; PULSE 74; RESP 18; TEMP 35.8; O2SAT 100; BMI 25.7
--- NOTE | 2021-10-09 09:26 | EKG12_ITS ---
Test Reason : OTHER PAIN Blood Pressure : / mmHG Vent. Rate : 059 BPM Atrial Rate : 059 BPM P-R Int : 160 ms QRS Dur : 096 ms QT Int : 414 ms P-R-T Axes : 046 -17 037 degrees QTc Int : 409 ms Sinus bradycardia Low voltage QRS (Limb Leads) Confirmed by SHELIA PORTILLO, SHIVANI ([id number]), newspaper managing editor GIAN RODRIGUEZ ([id number]) on 10/14/2021 11:12:10 AM Referred By: SESAR Confirmed By:SHIVANI BASS MD
--- NOTE | 2021-10-09 09:26 | RAD_ITS ---
STUDY: X-RAY CHEST REASON FOR EXAM: Female, 35 years old. Left upper chest pain TECHNIQUE: PA and lateral views of the chest. COMPARISON: Comparison is made with prior study dated 10/07/2021. FINDINGS: The lungs are clear and expanded. There is no demonstrated pleural abnormality. Normal size heart. Normal mediastinum and nathanael. Normal visualized pulmonary arteries. Normal visualized aortic arch and descending thoracic aorta. Normal visualized thoracic spine. Normal visualized ribs, clavicles, and shoulders. There is no demonstrated abnormality of the visualized soft tissue structures of the upper abdomen. RAD/Chest PA and Lateral IMPRESSION: Normal x-ray examination of the chest. Electronically Signed: Farhat Richmond MD at 9:54 EST , Service support ,
--- NOTE | 2021-10-09 09:27 | EX.ED.DYSGE1 ---
HPI History of Present Illness Chief Complaint: Other, Pain/Inj Informant: patient Narrative Narrative: Patient comes back in with discomfort in the left supraclavicular area. She was seen here couple days ago for left chest pain. That is not any different. It is not better or worse. She has a cough with a little bit of clear sputum but no hemoptysis or colored sputum. She has occasional mild fevers and chills. She is not short of breath. She was starting with symptoms of Covid on 28 September. She took test the next day that was positive. She was seen here couple days ago. She had extensive work-up including CAT scan of her chest that showed no acute PE. The symptoms she had with that are not any different. She read her home instructions and it stated that if she has pain in her shoulder or neck area she should return. This is why she came back. She has no trauma to that area. It is sore if she moves. No history of DVT or PE. She has no swelling of the arm. She also felt a bump in her left anterior chest wall that was there the other day also. It has not changed. [facility] Medical History (Updated 10/09/21 @ 10:[address] Diego Payan MD) Abnormal bruising Back pain Chest pain Fatigue Knee pain Migraines Shoulder pain Home Medications escitalopram oxalate 10 mg tablet 10 mg PO DAILY 08/26/21 [History Last Taken Unknown] hydrocodone-acetaminophen 1 tab PO Q4H PRN PRN 2 Days #10 tablet 10/07/21 [Rx Last Taken Unknown] naproxen 500 mg PO BID PRN #20 tab 10/07/21 [Rx Last Taken Unknown] Allergy/AdvReac Type Severity Reaction Status Date / Time dicyclomine [From Bentyl] Allergy Other Verified 10/09/21 09:12 Penicillins Allergy Rash Verified 10/09/21 09:12 Surgical History H/O dilation and curettage Social History Smoking Status: Current every day smoker tobacco type: cigarettes alcohol intake: current details: occasionally substance use type: does not use caffeine: Yes what type of physical activity do you participate in: none seatbelt use: always do you feel safe at home: Yes additional social history: Single-Boyfriend- Devonte- 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 However, her appetite is significantly down. ; Denies diarrhea, nausea or vomiting Genitourinary Genitourinary ED: Denies dysuria Musculoskeletal Musculoskeletal: Reports arthralgias, myalgias and other Details: See history of present illness. ; Denies back pain or neck pain Integumentary Denies abscess, Abrasions or rash Neurologic Neurologic: Denies paresthesias or weakness Psychiatric Psychiatric: Reports anxiety and depression Endocrine Endocrinology: Denies polydipsia or polyuria Allergic/Immunologic Allergic/Immunologic ED: Denies mouth swelling or urticaria EXAM Physical Exam Const Vital Signs: 10/09/21 09:10 10/09/21 09:13 Temperature 96.5 F L Temperature Source Temporal Pulse Rate 74 Respiratory Rate 18 Respiratory Effort Normal Non-Labored Respiratory Pattern Normal Blood Pressure 122/73 H Blood Pressure Mean 89 Pulse Ox 100 Oxygen Delivery Method Room Air Positive well nourished and well developed General Appearance ED: well developed and NAD; Negative for cyanotic or diaphoretic HEENT Negative for trauma or tenderness Eyes General Eye ED: Negative for pale conjunctiva or scleral icterus Neck no lymphadenopathy, supple and no JVD General: Negative for tenderness Chest Wall inspection of chest normal and palpation of chest normal Chest Narrative: Patient points out a lump in her lower left chest wall. This is just in the area of her lower ribs. She moved and twisted. I am not able to see this lump at this time. She had trouble finding it. I do not see a difference side to side. There is no rash or vesicle. Resp normal respiratory effort and clear to auscultation bilaterally Resp Narrative: Lungs actually sound clear despite having Covid and smoking. Auscultation: Negative for rales, rhonchi or wheezes Cardio regular rate, regular rhythm and no murmurs GI normal to inspection, nondistended, normoactive bowel sounds and non-tender Palpation: soft Back/Spine no CVA tenderness Extremity normal to inspection Extremity Narrative: I am not able to ascertain a difference in size in the area of one clavicle to the other. She has some supraclavicular and supraspinatus tenderness on the left a little bit more than the right. But she has muscular soreness throughout. I am not seeing rashes. No vesicles. No abscess. Neuro oriented x3 Sensorium / Orientation: alert Psych mental status grossly normal Skin no rashes or lesions noted and no wounds MDM MDM MDM Narrative Medical decision making narrative: Patient's x-ray looked at by me and read by radiology shows no acute process or interval change. EKG is not showing interval change. Patient is not tachypneic hypoxic or tachycardic. She had a negative CTA just 2 days ago. I think she has muscular pain from her Covid. I am not seeing indications to repeat a CTA at this time. She is on about day 12 of symptoms. We explained that over the next 48 hours she should start seeing improvement. She is okay with this plan. We did discuss specific reasons to return. Radiography Diagnostic Testing: Clinical Impression(s) from Imaging Studies Chest X-Ray 10/09/21 09:26 IMPRESSION: Normal x-ray examination of the chest. Electronically Signed: Farhat Richmond MD at 9:54 EST , Service support , EKG Initial EKG: Comments: EKG done for upper chest pain. EKG read by me shows sinus rhythm with mild bradycardic rate of 59. No ectopy. No acute ST elevation or depression. [place] interval, QRS duration and QTc normal. This is quite similar to similar from 07 October of this year. Discharge Plan Triage Chief Complaint: Other, Pain/Inj ED Provider: Diego Payan Dx/Rx/DC Orders Clinical Impression: COVID-19, Pleurisy, Myalgia Instructions: Coronavirus Disease 2019 (COVID-19): Caring for Yourself or Others Prescriptions: No Action escitalopram oxalate [Lexapro] 10 mg tablet 10 mg PO DAILY RF: 0 hydrocodone-acetaminophen [hydrocodone-acetaminophen] 1 TABLET tablet 1 tab PO Q4H PRN PRN (Reason: Pain) 2 Days Qty: 10 RF: 0 naproxen 500 MG tablet 500 mg PO BID PRN Qty: 20 RF: 0 Primary Care Provider: Roger Cohen Referrals: Roger Cohen MD [Primary Care Provider] - 3-5 Days if not improving Disposition Disposition: Home, Self Care
[2021-10-09 10:43] VITALS: PULSE 58; O2SAT 98
== END 2021-10-09 10:46 | disposition home or self-care (01) ==
PROVIDERS: Emergency Provider Emergency Medicine; PCP Internal Medicine; Visit Provider Emergency Medicine
DX: U07.1 COVID-19 (principal); R09.1 Pleurisy; M79.10 Myalgia, unspecified site; F17.210 Nicotine dependence, cigarettes, uncomplicated
CPT/HCPCS: 71046; 93005; 99282

== ENCOUNTER 2021-12-05 09:45 | Outpatient (CLI) | payer MEDICAID, SELFPAY ==
[2021-12-05 11:22] LABS: hCG Titer Quant., Serum 200 mIU/mL (1-3)
== END 2021-12-05 23:59 | disposition home or self-care (01) ==
PROVIDERS: PCP Internal Medicine; Referring Provider Obstetrics & Gynecology; Visit Provider Obstetrics & Gynecology
DX: N91.2 Amenorrhea, unspecified (principal)
CPT/HCPCS: 36415; 84702

== ENCOUNTER 2021-12-07 08:59 | Outpatient (CLI) | payer MEDICAID, SELFPAY ==
[2021-12-07 10:09] LABS: hCG Titer Quant., Serum 447 mIU/mL (1-3)
== END 2021-12-07 23:59 | disposition home or self-care (01) ==
LOC: LAB 09:00
PROVIDERS: PCP Internal Medicine; Visit Provider Obstetrics & Gynecology
DX: N91.2 Amenorrhea, unspecified (principal)
CPT/HCPCS: 36415; 84702

== ENCOUNTER 2021-12-11 15:02 | Outpatient (CLI) | payer MEDICAID, SELFPAY ==
[2021-12-11 16:23] LABS: hCG Titer Quant., Serum 2864 mIU/mL (1-3)
== END 2021-12-11 23:59 | disposition home or self-care (01) ==
LOC: LAB 15:04
PROVIDERS: PCP Internal Medicine; Referring Provider Obstetrics & Gynecology; Visit Provider Obstetrics & Gynecology
DX: O36.80X0 Pregnancy with inconclusive fetal viability, not applicable or unspecified (principal)
CPT/HCPCS: 36415; 84702

== ENCOUNTER 2021-12-15 09:36 | Emergency (ER) | payer MEDICAID, SELFPAY ==
[2021-12-15 09:37] VITALS: BP 117/69; PULSE 79; RESP 16; TEMP 36.6; O2SAT 98; BMI 26.5
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
[2021-12-15] MEDS: Acetaminophen 325 MG Tablet 650 MG PO (10:03)
[2021-12-15] MEDS: Ondansetron ODT 4 MG Tablet PO (10:03)
== END 2021-12-15 10:35 | disposition home or self-care (01) ==
LOC: ED 10:10
PROVIDERS: Emergency Provider Emergency Medicine; PCP Internal Medicine; Visit Provider Emergency Medicine
DX: O9A.211 Injury, poisoning and certain other consequences of external causes complicating pregnancy, first trimester (principal); V49.40XA Driver injured in collision with unspecified motor vehicles in traffic accident, initial encounter; S06.0X0A Concussion without loss of consciousness, initial encounter; O99.891 Other specified diseases and conditions complicating pregnancy; S16.1XXA Strain of muscle, fascia and tendon at neck level, initial encounter; O99.331 Smoking (tobacco) complicating pregnancy, first trimester; F17.210 Nicotine dependence, cigarettes, uncomplicated; Z3A.01 Less than 8 weeks gestation of pregnancy; Y93.C2 Activity, hand held interactive electronic device; Y93.89 Activity, other specified; Y99.9 Unspecified external cause status; Y92.9 Unspecified place or not applicable
CPT/HCPCS: 99283

== ENCOUNTER 2021-12-28 13:32 | Outpatient (CLI) | payer MEDICAID, SELFPAY ==
[2021-12-28 13:43] VITALS: BP 112/78; PULSE 61; RESP 16; TEMP 36.6; O2SAT 98; BMI 27.4
[2021-12-28] MEDS: 0.9% NaCl Peripheral Flush Adult/Peds IV ×2 (13:58→15:47)
[2021-12-28] MEDS: Dextrose 5%-Lactated Ringers 1,000 ML 999 ML IV ×2 (13:58→15:45)
[2021-12-28] MEDS: Ondansetron 4 MG/2 ML Vial IV (13:58)
[2021-12-28] MEDS: proMETHazine 25 MG/ML Syringe 12.5 MG IM (14:39)
[2021-12-28 15:05] VITALS: BP 106/63; PULSE 62; RESP 16; TEMP 36.6; O2SAT 99
[2021-12-28] MEDS: Metoclopramide 10 MG/2 ML Vial IV (15:47)
[2021-12-28 16:56] VITALS: BP 111/56; PULSE 68; RESP 16; TEMP 36.7; O2SAT 99
== END 2021-12-28 23:59 | disposition home or self-care (01) ==
LOC: MEDOUTP 13:33
PROVIDERS: PCP Internal Medicine; Referring Provider Obstetrics & Gynecology; Visit Provider Obstetrics & Gynecology
DX: E86.0 Dehydration (principal)
CPT/HCPCS: 96365; 96375 ×2; 96372; A4216; J2405

== ENCOUNTER 2022-01-04 10:35 | Outpatient (CLI) | payer MEDICAID, SELFPAY ==
[2022-01-04] MEDS: Dextrose 5%-Lactated Ringers 1,000 ML 999 ML IV (10:56)
[2022-01-04] MEDS: Ondansetron 4 MG/2 ML Vial IV (11:08)
[2022-01-04] MEDS: Metoclopramide 10 MG/2 ML Vial IV (11:11)
[2022-01-04 11:17] VITALS: BP 108/48; PULSE 78; RESP 16; TEMP 36.6; O2SAT 97; BMI 28.1
[2022-01-04 12:09] LABS: Absolute Lymphocyte Count 1.44 X10^3/uL (0.83-4.51); Absolute Neutrophil Count 8.5 X10^3/uL (2.0-7.7); Basophil# 0.03 X10^3/uL; Basophil% 0.3 % (0-1); Eosinophil# 0.06 X10^3/uL; Eosinophils% 0.6 % (0-5); Hematocrit 34.1 % (37-47); Hemoglobin 11.3 g/dL (12.0-15.0); Lymphocyte # 1.44 X10^3/ul (0.83-4.51); Lymphocyte % 13.7 % (19-41); Mean Corp Hgb Conc 33.1 g/dL (32-36); Mean Corpuscular Hgb 29.8 pg (27.0-32.0); Mean Platelet Vol. 9.9 fl (6.2-12.0); Monocyte# 0.41 X10^3/uL; Monocyte% 3.9 % (0-10); NRBC Flagged by Analyzer 0 % (0-5); Neutrophil % 81.1 % (47-70); Platelet Count 216 K/mm3 (150-450); RBC Distribution Width CV 13.3 % (11.6-14.6); RBC Distribution Width SD 44.2 fl (35.1-43.9); Red Blood Count 3.79 M/mm3 (4.2-5.4); White Blood Count 10.5 K/mm3 (4.4-11.0)
[2022-01-04 12:18] VITALS: BP 116/42; PULSE 87; RESP 16; O2SAT 99
[2022-01-04 12:43] LABS: ALB/GLOB Ratio 0.8 RATIO (0.9-2.4); AST(SGOT) 22 U/L (15-37); Alanine Aminotransfer ALT/SGPT 44 U/L (13-56); Albumin, Serum 2.8 g/dL (3.2-5.0); Alkaline Phosphatase 51 U/L (45-117); Anion Gap 7 (5-15); BUN 11 mg/dL (7-18); BUN/Creat Ratio 19.4 RATIO (10-20); Calcium,Total 8.8 mg/dL (8.5-10.1); Chloride 106 mmol/L (98-107); Creatinine, Serum 0.57 mg/dL (0.55-1.02); EST Glomerular Filtration Rate 129 mL/min (>60); Est Glom Filt Rate - Afr Amer 157 mL/min (>60); Estimated Creatinine Clearance 115.04 ml/min; Globulin 3.7 g/dL (2.2-4.2); Glucose 185 mg/dL (74-106); Magnesium 1.8 mg/dL (1.6-2.6); Phosphorus 2.1 mg/dL (2.5-4.9); Potassium 3.3 mmol/L (3.5-5.1); Protein, Total 6.5 g/dL (6.4-8.2); Sodium Level 135 mmol/L (136-145)
[2022-01-04 13:19] LABS: HIV - WCH Non-Reactive (Nonreactive); Hepatitis B Surface Antigen Non-Reactive (Nonreactive); Hepatitis C Antibody Non-Reactive (Nonreactive); Rubella IgG Reactive (Nonreactive); Syphilis Antibodies Non-reactive
[2022-01-04 13:50] LABS: Amphetamine Urine VISTA NEGATIVE (<1000 ng/mL); Barbiturate Urine VISTA NEGATIVE (< 200 ng/mL); Benzodiazepine Urine VISTA NEGATIVE (< 200 ng/mL); Cocaine Urine VISTA NEGATIVE (< 300 ng/mL); Ecstacy Urine VISTA NEGATIVE (< 500 ng/mL); Methadone Urine VISTA NEGATIVE (< 300 ng/mL); PCP Urine VISTA NEGATIVE (< 25 ng/mL); THC Urine VISTA POSITIVE (< 50 ng/mL); Vista UDS pH Range 6
[2022-01-06 22:07] LABS: Chlamydia By Nucleic Acid AMP Negative (Negative)
[2022-01-06 22:12] LABS: Gonococcus By Nucleic Acid AMP Negative (Negative)
== END 2022-01-04 23:59 | disposition home or self-care (01) ==
PROVIDERS: PCP Internal Medicine; Referring Provider Obstetrics & Gynecology; Visit Provider Obstetrics & Gynecology
DX: O99.280 Endocrine, nutritional and metabolic diseases complicating pregnancy, unspecified trimester (principal); E86.0 Dehydration; Z3A.00 Weeks of gestation of pregnancy not specified
CPT/HCPCS: 96374; 96375; 96361; 36415; 80053; 80307; 83735; 84100; 85025; 86703; 86762; 86780; 86803; 86850; 86900; 86901; 87086; 87088; 87340; 87491; 87591; J2405

== ENCOUNTER 2022-01-07 15:21 | Emergency (ER) | payer MEDICAID, SELFPAY ==
[2022-01-07 15:22] VITALS: BP 130/56; PULSE 83; RESP 15; TEMP 36.6; O2SAT 97; BMI 28.0
--- NOTE | 2022-01-07 15:37 | EX.ED.DYSGE1 ---
HPI History of Present Illness Chief Complaint: Nausea/Vomiting Detail of Chief Complaint: Nausea and vomiting x3 weeks Informant: patient Narrative Narrative: Patient presents to the emergency department complaint nausea and vomiting for last 3 weeks. Patient states that she is 9 weeks with twins. Patient states this is her fourth visit to the ER for fluids and antiemetics. Patient had a pelvic ultrasound 4 days ago and everything looked well. Patient's been using Phenergan at home as well as meclizine and not getting much relief. Patient states she feels miserable all the time. There was talk about putting in a Reglan pump. Patient denies any fevers or recent illness otherwise. Patient is G4, P2. Prior similar symptoms: Yes PFSH [facility] Medical History (Updated 01/07/22 @ 16:[address] Abdulaziz Mckenzie, ) Abnormal bruising Back pain Cervical strain Chest pain Concussion without loss of consciousness COVID-19 Fatigue Knee pain Migraines Shoulder pain Home Medications escitalopram oxalate 10 mg tablet 10 mg PO DAILY 08/26/21 [History Last Taken Unknown] famotidine 10 mg tablet 10 mg PO DAILY 12/21/21 [History Last Taken Unknown] prenat.vits,justine,unh-yoak-ampte 1 tab PO DAILY 12/21/21 [History Last Taken Unknown] meclizine 25 mg tablet 25 mg PO TID PRN #90 tab 12/25/21 [Rx Last Taken Unknown] folic acid 1 mg tablet 1 mg PO DAILY 01/04/22 [History Last Taken Unknown] potassium phosphate, monobasic 500 mg soluble tablet 500 mg PO DAILY #7 tab 01/04/22 [Rx Last Taken Unknown] promethazine 12.5 mg tablet 12.5 mg PO Q6H PRN #90 tab 01/04/22 [Rx Last Taken Unknown] food supplemt, lactose-reduced 300 ml PO TID #5688 ml 01/07/22 [Rx Last Taken Unknown] ondansetron 4 mg PO Q8H PRN PRN #10 tab 01/07/22 [Rx Last Taken Unknown] Allergy/AdvReac Type Severity Reaction Status Date / Time dicyclomine [From Bentyl] Allergy migraine Verified 01/07/22 15:24 Penicillins Allergy Rash Verified 01/07/22 15:24 Surgical History (Reviewed 12/21/21 @ 14:08 by Cinthia Flores CATH LAB RADIOLOGICAL TECHNOLOGIST, CATH LAB RADIOLOGICAL TECHNOLOGIST-C) H/O dilation and curettage Social History (Updated 12/21/21 @ 14:12 by Cinthia Flores NP, CATH LAB RADIOLOGICAL TECHNOLOGIST-C) adopted: No household members: significant other and children number of children: 2 current occupational status: employed 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; [employer] Smoking Status: Never smoker alcohol intake: current details: occasionally; not while substance use type: marijuana caffeine: Yes what type of physical activity do you participate in: none seatbelt use: always do you feel safe at home: Yes additional social history: Baljinder [employer] ED Constitutional Constitutional ED: Reports systems reviewed and no addt'l complaints, except as documented; Denies body ache(s), change in weight or chills Eyes Eyes: Denies acute decrease in peripheral vision, change in vision, double vision or loss of vision ENT ENT ED: Reports none; Denies ear pain, lip swelling, loss taste/smell, neck pain, otalgia or sore throat Cardiovascular Cardiovascular: Reports none; Denies abdominal pain, chest pain with activity, leg edema, lightheadedness, palpitations, rapid heart rate or syncope Respiratory/Chest Respiratory/Chest: Reports none; Denies change in mental status, dry cough, dyspnea, hemoptysis, shortness of breath at rest or shortness of breath with exertion Gastrointestinal Gastrointestinal: Reports none, nausea and vomiting; Denies abdominal pain, change in stool character, diarrhea, hematemesis, hematochezia, melena or rectal bleeding Genitourinary Genitourinary ED: Reports none; Denies abdominal discomfort, anuria, dysuria, genital pain or polyuria Musculoskeletal Musculoskeletal: Reports none; Denies arthralgias, back pain, difficulty walking, extremity pain, muscle weakness or myalgias Integumentary Reports none; Denies abscess or rash Neurologic Neurologic: Reports none; Denies abnormal gait, confusion, focal weakness, frequent falls, headache(s), loss of vision, numbness, paresthesias, radicular pain, vertigo or weakness Psychiatric Psychiatric: Reports systems reviewed and no addt'l complaints, except as documented and none; Denies behavioral changes, confusion, difficulty concentrating, hallucinations, suicidal ideation, tactile hallucinations or visual hallucinations Endocrine Endocrinology: Denies none, cold intolerance, excessive sweating, fatigue or heat intolerance Hematologic/Lymphatic Hematologic/Lymphatic: Reports none; Denies anemia, easy bleeding or easy bruising Allergic/Immunologic Allergic/Immunologic ED: Denies as per HPI, none, lip swelling, mouth swelling, throat swelling, tongue swelling or hives EXAM Physical Exam Const Vital Signs: 01/07/22 15:22 Temperature 98 F Temperature Source Temporal Pulse Rate 83 Respiratory Rate 15 Blood Pressure 130/56 H Blood Pressure Mean 80 Pulse Ox 97 Oxygen Delivery Method Room Air Positive well nourished and well developed General Appearance ED: well developed and NAD HEENT Reports TM's clear and moist mucous membranes normocephalic and atraumatic; Negative for trauma or tenderness Tympanic Membrane ED: Yes TM's clear Eyes PERRL and EOMs intact bilaterally General Eye ED: Negative for pale conjunctiva or scleral icterus Neck no lymphadenopathy, supple and no JVD General: Negative for tenderness Chest Wall inspection of chest normal and palpation of chest normal Chest: Negative for tenderness Resp normal respiratory effort and clear to auscultation bilaterally Effort and Inspection: Negative for respiratory distress or pain with movement Auscultation: Negative for rhonchi, wheezes or diminished lung sounds Cardio regular rate, regular rhythm, S1 normal heart sound, S2 normal heart sound and no murmurs Peripheral Pulses: pulses 2+ throughout GI normal to inspection, nondistended, normoactive bowel sounds, soft to palpation, non-tender, non-distended and no masses Back/Spine no CVA tenderness and no thoracic nor lumbar tenderness Extremity normal to inspection General Extremety ED: Negative for edema General Extremity: Negative for edema Neuro oriented x3, CN's II-XII intact bilaterally, no sensory deficits noted and gait normal Sensorium / Orientation: awake, alert, oriented to person, oriented to place and oriented to time Motor Exam: strength 5/5 throughout and strength abnormal Psych mental status grossly normal Skin no rashes or lesions noted and no wounds MDM MDM MDM Narrative Medical decision making narrative: IV line established on arrival. Patient was given Reglan and was ordered Benadryl which he refused. She did have some improvement in her nausea. I did order some Zofran IV for her as well. Patient was given a liter mostly of fluid bolus. Lab work-up was unremarkable. I discussed case with her UNDERCUTTER OPERATOR who is try to set her up for a Reglan pump. Patient will be given a prescription for Zofran ODT. She is to follow-up with her UNDERCUTTER OPERATOR. She is to push fluids. Dr. Vazquez Azevedo will also order Ensure for her. Lab Data Attestation: I reviewed the patient's lab results. Labs: Laboratory Results - last 24 hr 01/07/22 01/07/22 01/07/22 13:55 13:55 13:55 WBC 11.9 H RBC 4.22 Hgb 12.8 Hct 37.5 MCV 88.9 MCH 30.3 MCHC 34.1 RDW Std Deviation 42.8 RDW Coeff of Tulio 13.1 Plt Count 263 MPV 10.1 Immature Gran % (Auto) 0.400 Neut % (Auto) 73.4 H Lymph % (Auto) 18.8 L Bibb % (Auto) 6.1 Eos % (Auto) 1.0 Baso % (Auto) 0.3 Absolute Neuts (auto) 8.7 H Absolute Lymphs (auto) 2.23 Nucleated RBC % 0 Sodium 135 L Potassium 4.1 Chloride 109 H Carbon Dioxide 21.0 Anion Gap 5 BUN 10 Creatinine 0.51 L Estim Creat Clear Calc 128.57 Est GFR (MDRD) Af Amer 178 Est GFR (MDRD) Non-Af 147 BUN/Creatinine Ratio 19.6 Glucose 86 Calcium 9.2 Urine Color Yellow Urine Clarity Sl. Cloudy Urine pH 8.0 Ur Specific Harvey 1.010 Urine Protein Negative Urine Glucose (UA) Normal Urine Ketones Negative Urine Occult Blood Negative Urine Nitrite Negative Urine Bilirubin Negative Urine Urobilinogen Normal Ur Leukocyte Esterase Negative Urine RBC 0 SEEN Urine WBC 0-5 SEEN Ur Squamous Epith Cells 5-10 SEEN Urine Bacteria 1+ Urine Mucus 0 SEEN Discharge Plan Triage Chief Complaint: Nausea/Vomiting ED Provider: Abdulaziz Mckenzie Dx/Rx/DC Orders Clinical Impression: Hyperemesis gravidarum, Nausea/vomiting in Instructions: ED Hyperemesis Gravidarum Prescriptions: New ondansetron [ondansetron] 4 MG tablet 4 mg PO Q8H PRN PRN (Reason: Nausea) Qty: 10 RF: 0 No Action escitalopram oxalate [Lexapro] 10 mg tablet 10 mg PO DAILY RF: 0 folic acid 1 mg tablet 1 mg PO DAILY RF: 0 prenat.vits,justine,ifi-phri-yrpsz Tablet 1 tab PO DAILY RF: 0 famotidine [Pepcid AC] 10 mg tablet 10 mg PO DAILY RF: 0 meclizine 25 mg tablet 25 mg PO TID PRN (Reason: nausea and vomiting) Qty: 90 RF: 7 K-Phos Original 500 mg tablet,soluble 500 mg PO DAILY Qty: 7 RF: 0 promethazine 12.5 mg tablet 12.5 mg PO Q6H PRN (Reason: nausea and vomiting) Qty: 90 RF: 4 Ensure Liquid 300 ml PO TID Qty: 5688 RF: 12 Primary Care Provider: Roger Cohen Referrals: Maria Regan MD [STAFF PHYSICIAN] - 3-5 Days Roger Cohen MD [Primary Care Provider] - Disposition Disposition: Home, Self Care
[2022-01-07] MEDS: 0.9% Normal Saline 1,000 ML 1000 ML IV (15:54)
[2022-01-07] MEDS: Metoclopramide 10 MG/2 ML Vial IV (15:54)
[2022-01-07 16:07] LABS: Absolute Lymphocyte Count 2.23 X10^3/uL (0.83-4.51); Absolute Neutrophil Count 8.7 X10^3/uL (2.0-7.7); Basophil# 0.03 X10^3/uL; Basophil% 0.3 % (0-1); Eosinophil# 0.12 X10^3/uL; Hematocrit 37.5 % (37-47); Hemoglobin 12.8 g/dL (12.0-15.0); Lymphocyte # 2.23 X10^3/ul (0.83-4.51); Lymphocyte % 18.8 % (19-41); Mean Corp Hgb Conc 34.1 g/dL (32-36); Mean Corpuscular Hgb 30.3 pg (27.0-32.0); Mean Corpuscular Volume 88.9 fL (81-99); Mean Platelet Vol. 10.1 fl (6.2-12.0); Monocyte# 0.72 X10^3/uL; Monocyte% 6.1 % (0-10); NRBC Flagged by Analyzer 0 % (0-5); Neutrophil # 8.73 X10^3/uL (2.7-7.7); Neutrophil % 73.4 % (47-70); Platelet Count 263 K/mm3 (150-450); RBC Distribution Width CV 13.1 % (11.6-14.6); RBC Distribution Width SD 42.8 fl (35.1-43.9); Red Blood Count 4.22 M/mm3 (4.2-5.4); White Blood Count 11.9 K/mm3 (4.4-11.0)
[2022-01-07 16:08] LABS: Mucous, Urine 0 SEEN /hpf (<or=2+); Red Blood Cells-Urine 0 SEEN /hpf (0-5)
[2022-01-07 16:09] LABS: Color, Urine Yellow (Yellow); Glucose, Dipstick Normal (Normal); Ketone-Dipstick Negative (Negative); Leukocyte Esterase-Dipstick Negative /ul (Negative); Nitrite-Dipstick Negative (Negative); Occult Blood-Urine Negative /ul (Negative); Protein-Dipstick Negative (Negative); Urine Bilirubin Dipstick Negative (Negative); Urine Clarity Sl. Cloudy (Clear); Urine Urobilinogen Normal (Normal)
[2022-01-07 16:23] LABS: Anion Gap 5 (5-15); BUN 10 mg/dL (7-18); BUN/Creat Ratio 19.6 RATIO (10-20); Bacteria 1+ /hpf (None Seen); Calcium,Total 9.2 mg/dL (8.5-10.1); Chloride 109 mmol/L (98-107); Creatinine, Serum 0.51 mg/dL (0.55-1.02); EST Glomerular Filtration Rate 147 mL/min (>60); Est Glom Filt Rate - Afr Amer 178 mL/min (>60); Estimated Creatinine Clearance 128.57 ml/min; Glucose 86 mg/dL (74-106); Potassium 4.1 mmol/L (3.5-5.1); Sodium Level 135 mmol/L (136-145); Squamous Epithelial Cells - UA 5-10 SEEN /hpf (5-10); White Blood Cells 0-5 SEEN /hpf (0-5)
[2022-01-07] MEDS: Ondansetron 4 MG/2 ML Vial IV (16:35)
== END 2022-01-07 16:53 | disposition home or self-care (01) ==
PROVIDERS: Emergency Provider Emergency Medicine; PCP Internal Medicine; Visit Provider Emergency Medicine
DX: O21.0 Mild hyperemesis gravidarum (principal); O30.001 Twin pregnancy, unspecified number of placenta and unspecified number of amniotic sacs, first trimester; Z3A.09 9 weeks gestation of pregnancy; Z86.16 Personal history of COVID-19; Z79.899 Other long term (current) drug therapy
CPT/HCPCS: 80048; 81001; 85025; 96361; 96374; 96375; 99283; J7030; J2405

== ENCOUNTER 2022-01-14 11:47 | Outpatient (CLI) | payer MEDICAID, SELFPAY ==
[2022-01-14 12:56] LABS: NATERA MAILED SPECIMEN
== END 2022-01-14 23:59 | disposition home or self-care (01) ==
PROVIDERS: PCP Internal Medicine; Referring Provider Obstetrics & Gynecology; Visit Provider Obstetrics & Gynecology
DX: Z34.81 Encounter for supervision of other normal pregnancy, first trimester (principal); Z31.430 Encounter of female for testing for genetic disease carrier status for procreative management
CPT/HCPCS: 36415

== ENCOUNTER 2022-02-11 10:25 | Inpatient (IN) | payer MEDICAID, SELFPAY ==
[2022-02-11] VITALS (7 sets, daily range): BP systolic 100–119; BP diastolic 46–59; PULSE 74–82; RESP 14–19; TEMP 36.2–36.9; O2SAT 98–100; BMI 28.9; BMI 28.8
--- NOTE | 2022-02-11 10:37 | EKG12_ITS ---
Test Reason : CELLULITIS Blood Pressure : / mmHG Vent. Rate : 079 BPM Atrial Rate : 079 BPM P-R Int : 140 ms QRS Dur : 094 ms QT Int : 360 ms P-R-T Axes : 047 -12 032 degrees QTc Int : 412 ms Normal sinus rhythm Normal ECG Confirmed by SHELIA PORTILLO, SHIVANI ([id number]), business editor GIAN RODRIGUEZ ([id number]) on 02/15/2022 1:24:58 PM Referred By: ANJALI Confirmed By:SHIVANI BASS MD
--- NOTE | 2022-02-11 11:06 | EDS_ITS ---
HPI <EMERITA Cottrell - Last Filed: 02/11/22 15:03> History of Present Illness Chief Complaint: Cellulitis Narrative Narrative: 36-year-old female with no sniffing medical history presents the emergency department with a cellulitis to the abdomen. Patient is currently 14 weeks with twins, she was having hyperemesis, was given Reglan via pump. Patient presents with redness from the pump insertion sites. Patient has had rotating sites, was seen by her FAN BLADE ALIGNER who placed her on Augmentin yesterday, she woke up today, had worsening spreading of the redness as well as others spots of cellulitis and is here for evaluation. Patient did have a fever of 101.4 yesterday, she denies any fever today. She states he does have chills, also complains of nausea and itching. PFSH <EMERITA Cottrell - Last Filed: 02/11/22 15:03> [facility] Medical History (Updated 02/11/22 @ 15:15 by Veronika Helm) Abnormal bruising Anxiety Back pain Cervical strain Chest pain Concussion without loss of consciousness COVID-19 Fatigue Former smoker Hyperemesis Knee pain Migraines Shoulder pain Home Medications famotidine 10 mg tablet 10 mg PO DAILY PRN 12/21/21 [History Last Taken Unknown] prenat.vits,justine,[id number] 1 tab PO DAILY 12/21/21 [History Last Taken 02/10/22] folic acid 1 mg tablet 1 mg PO DAILY 01/04/22 [History Last Taken 02/10/22] promethazine 12.5 mg tablet 12.5 mg PO Q6H PRN #90 tab 01/04/22 [Rx Last Taken 02/11/22] ondansetron 4 mg disintegrating tablet 4 mg PO Q8H PRN PRN #60 tab 01/14/22 [Rx Last Taken Unknown] amoxicillin 875 mg-potassium clavulanate 125 mg tablet 1 tab PO BID 10 Days #20 tab 02/10/22 [Rx Last Taken 02/11/22] Allergy/AdvReac Type Severity Reaction Status Date / Time dicyclomine [From Bentyl] Allergy migraine Verified 02/11/22 10:28 Penicillins Allergy Rash Verified 02/11/22 10:28 Surgical History H/O dilation and curettage Social History adopted: No household members: significant other and children number of children: 2 current occupational status: employed 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 Positive fever and chills Eyes: Negative for vision loss, vision change, double vision ENT: Negative for any sore throat, ear pain, congestion Cardiovascular: Negative for any chest pain, tightness, palpitations, racing heartbeat Respiratory: Negative for any cough, sputum production, hemoptysis, shortness of breath, shortness of breath on exertion, orthopnea Gastrointestinal: Negative for any abdominal pain, nausea, vomiting, diarrhea, constipation, blood in stool, blood in vomit : Negative for any urinary frequency, incontinence, dysuria, retention, blood in urine Muscle skeletal: Negative for any muscle joint pain, stiffness, myalgias, arthralgias, neck pain, back pain Neurological: Negative for any headache, dizziness, syncope, numbness or tingling Skin: Negative for any rashes, lumps, itching, abrasions, lacerations. Positive for redness, warmth areas to the abdomen Psychiatric: Negative for any depression, anxiety, stress, suicidal ideation, homicidal ideation Hematologic: Negative for any easy bruising, excessive bruising, easy bleeding Allergies: Negative for any eczema, hives, rash EXAM <EMERITA Cottrell - Last Filed: 02/11/22 15:03> Physical Exam Narrative Exam Narrative: Vital signs reviewed. HEET: Head normocephalic atraumatic, TMs clear bilaterally. Posterior pharynx is clear, moist mucous membranes. Nares clear bilaterally. Neck: Supple with no lymphadenopathy or tenderness. No signs of meningismus, ne gative jolt sign. Cardiac: Regular rate and rhythm no murmurs gallops or rubs, equal peripheral pulses bilaterally. Respiratory: Lungs clear to auscultation bilaterally. No chest tenderness. Abdomen: Soft, nondistended. No abdominal bruit or pulsatile masses. No hepatosplenomegaly patient is 14 weeks , patient has 2 areas of erythema, tender to the touch to her anterior abdomen. Around these areas is a small insertion site where she use the Reglan pump. Negative for any drainage. Patient does have pain on palpation however is very superficial. Patient also complains of itching of these areas. Negative for any drainage. Extremities: No peripheral edema, no signs of gross trauma or deformity. Active full range of motion of all extremities. Neuro: Cranial nerves II through XII intact, no focal neurological deficits. Skin: Clean dry and intact with no rash, purpura, petechiae, vesicles or pustules. Backslash flank: No CVA tenderness, no midline spinal tenderness, no deformity. Psych: Normal mood and affect. No SI, HI or acute psychosis. Const Vital Signs: 02/11/22 10:02/11/22 11:02/11/22 11:59 Temperature 97.2 F L 97.8 F Temperature Source Temporal Temporal Pulse Rate 76 77 Respiratory Rate 14 17 Blood Pressure 119/57 L 112/59 L Blood Pressure Mean 77 76 Pulse Ox 100 100 Oxygen Delivery Method Room Air Room Air Room Air 02/11/22 12:55 Temperature 97.8 F Temperature Source Temporal Pulse Rate 82 Respiratory Rate 14 Blood Pressure 113/50 L Blood Pressure Mean 71 Pulse Ox 100 Oxygen Delivery Method Room Air Positive well nourished and well developed General Appearance ED: well developed <Lupillo Asif MD - Last Filed: 02/11/22 20:09> Physical Exam Const Vital Signs: 02/11/22 10:26 02/11/22 11:02/11/22 11:59 Temperature 97.2 F L 97.8 F Temperature Source Temporal Temporal Pulse Rate 76 77 Respiratory Rate 14 17 Blood Pressure 119/57 L 112/59 L Blood Pressure Mean 77 76 Pulse Ox 100 100 Oxygen Delivery Method Room Air Room Air Room Air 02/11/22 12:55 Temperature 97.8 F Temperature Source Temporal Pulse Rate 82 Respiratory Rate 14 Blood Pressure 113/50 L Blood Pressure Mean 71 Pulse Ox 100 Oxygen Delivery Method Room Air MDM <EMERITA Cottrell - Last Filed: 02/11/22 15:03> [facility] MDM Narrative Medical decision making narrative: Patient arrives in no distress, patient is not febrile, patient presents to the emergency department with 4 days of cellulitis to the lower abdomen where she had her Reglan pump. Patient did receive laboratory values, patient CBC showed leukocytosis of 14.8, patient's chemistries were unremarkable. Blood cultures were drawn, patient did receive a septic work-up. Patient will be admitted to the hospital for failed outpatient therapy of cellulitis. She was given IV Rocephin, vancomycin. Patient will be admitted to the hospital. Lab Data Attestation: I reviewed the patient's lab results. Labs: Laboratory Results - last 24 hr 02/11/22 02/11/22 02/11/22 11:10 11:10 11:10 WBC 14.8 H RBC 3.97 L Hgb 12.0 Hct 35.7 L MCV 89.9 MCH 30.2 MCHC 33.6 RDW Std Deviation 43.2 RDW Coeff of Tulio 13.1 Plt Count 209 MPV 10.2 Immature Gran % (Auto) 0.400 Neut % (Auto) 81.5 H Lymph % (Auto) 11.6 L [place] % (Auto) 4.7 Eos % (Auto) 1.5 Baso % (Auto) 0.3 Absolute Neuts (auto) 12.0 H Absolute Lymphs (auto) 1.72 Nucleated RBC % 0 APTT Cancelled Sodium 135 L Potassium 3.6 Chloride 106 Carbon Dioxide 22.0 Anion Gap 7 BUN 8 Creatinine 0.48 L Estim Creat Clear Calc 136.61 Est GFR (MDRD) Af Amer 192 Est GFR (MDRD) Non-Af 159 BUN/Creatinine Ratio 16.8 Glucose 104 Lactic Acid Calcium 9.0 Total Bilirubin 0.30 AST 18 ALT 18 Alkaline Phosphatase 64 Total Protein 6.9 Albumin 2.7 L Globulin 4.2 Albumin/Globulin Ratio 0.6 L Urine Color Urine Clarity Urine pH Ur Specific [place] Urine Protein Urine Glucose (UA) Urine Ketones Urine Occult Blood Urine Nitrite Urine Bilirubin Urine Urobilinogen Ur Leukocyte Esterase Urine RBC Urine WBC Ur Squamous Epith Cells Urine Bacteria Urine Mucus 02/11/22 02/11/22 02/11/22 11:10 11:40 11:45 WBC RBC Hgb Hct MCV MCH MCHC RDW Std Deviation RDW Coeff of Tulio Plt Count MPV Immature Gran % (Auto) Neut % (Auto) Lymph % (Auto) [place] % (Auto) Eos % (Auto) Baso % (Auto) Absolute Neuts (auto) Absolute Lymphs (auto) Nucleated RBC % APTT 32.1 Sodium Potassium Chloride Carbon Dioxide Anion Gap BUN Creatinine Estim Creat Clear Calc Est GFR (MDRD) Af Amer Est GFR (MDRD) Non-Af BUN/Creatinine Ratio Glucose Lactic Acid 0.7 Calcium Total Bilirubin AST ALT Alkaline Phosphatase Total Protein Albumin Globulin Albumin/Globulin Ratio Urine Color Yellow Urine Clarity Sl. Cloudy Urine pH 7.0 Ur Specific [place] 1.010 Urine Protein Negative Urine Glucose (UA) Normal Urine Ketones 15 H Urine Occult Blood Negative Urine Nitrite Negative Urine Bilirubin Negative Urine Urobilinogen Normal Ur Leukocyte Esterase 25 H Urine RBC 0 SEEN Urine WBC 0-5 SEEN Ur Squamous Epith Cells 5-10 SEEN Urine Bacteria 1+ Urine Mucus 0 SEEN EKG Normal sinus rhythm: Interpretation: Sinus Rhythm Comments: Normal sinus rhythm, rate of 79 bpm, CA interval 140 ms, QRS duration 84 ms, no acute ST elevation, acute infarct noted <Lupillo Asif MD - Last Filed: 02/11/22 20:09> MDM MDM Narrative Medical decision making narrative: I have personally performed a face to face assessment of the patient and have reviewed the JANICE Note. I performed a substantive portion of the visit including all aspects of the following. My hager findings include: History is cellulitis on abdomen from Reglan pump insertion. 14 weeks . Exam is afebrile. Vital signs noted. Positive erythema on abdomen. Gravid uterus. Medical Decision Making check labs, IV antibiotics. Discussed with medicine. Discussed with FAN BLADE ALIGNER. Admit to medicine. Other additions or changes: [None] Lab Data Attestation: I reviewed the patient's lab results. Labs: Laboratory Results - last 24 hr 02/11/22 02/11/22 02/11/22 11:10 11:10 11:10 WBC 14.8 H RBC 3.97 L Hgb 12.0 Hct 35.7 L MCV 89.9 MCH 30.2 MCHC 33.6 RDW Std Deviation 43.2 RDW Coeff of Tulio 13.1 Plt Count 209 MPV 10.2 Immature Gran % (Auto) 0.400 Neut % (Auto) 81.5 H Lymph % (Auto) 11.6 L [place] % (Auto) 4.7 Eos % (Auto) 1.5 Baso % (Auto) 0.3 Absolute Neuts (auto) 12.0 H Absolute Lymphs (auto) 1.72 Nucleated RBC % 0 APTT Cancelled Sodium 135 L Potassium 3.6 Chloride 106 Carbon Dioxide 22.0 Anion Gap 7 BUN 8 Creatinine 0.48 L Estim Creat Clear Calc 136.61 Est GFR (MDRD) Af Amer 192 Est GFR (MDRD) Non-Af 159 BUN/Creatinine Ratio 16.8 Glucose 104 Lactic Acid Calcium 9.0 Total Bilirubin 0.30 AST 18 ALT 18 Alkaline Phosphatase 64 Total Protein 6.9 Albumin 2.7 L Globulin 4.2 Albumin/Globulin Ratio 0.6 L Urine Color Urine Clarity Urine pH Ur Specific [place] Urine Protein Urine Glucose (UA) Urine Ketones Urine Occult Blood Urine Nitrite Urine Bilirubin Urine Urobilinogen Ur Leukocyte Esterase Urine RBC Urine WBC Ur Squamous Epith Cells Urine Bacteria Urine Mucus 02/11/22 02/11/22 02/11/22 11:10 11:40 11:45 WBC RBC Hgb Hct MCV MCH MCHC RDW Std Deviation RDW Coeff of Tulio Plt Count MPV Immature Gran % (Auto) Neut % (Auto) Lymph % (Auto) [place] % (Auto) Eos % (Auto) Baso % (Auto) Absolute Neuts (auto) Absolute Lymphs (auto) Nucleated RBC % APTT 32.1 Sodium Potassium Chloride Carbon Dioxide Anion Gap BUN Creatinine Estim Creat Clear Calc Est GFR (MDRD) Af Amer Est GFR (MDRD) Non-Af BUN/Creatinine Ratio Glucose Lactic Acid 0.7 Calcium Total Bilirubin AST ALT Alkaline Phosphatase Total Protein Albumin Globulin Albumin/Globulin Ratio Urine Color Yellow Urine Clarity Sl. Cloudy Urine pH 7.0 Ur Specific [place] 1.010 Urine Protein Negative Urine Glucose (UA) Normal Urine Ketones 15 H Urine Occult Blood Negative Urine Nitrite Negative Urine Bilirubin Negative Urine Urobilinogen Normal Ur Leukocyte Esterase 25 H Urine RBC 0 SEEN Urine WBC 0-5 SEEN Ur Squamous Epith Cells 5-10 SEEN Urine Bacteria 1+ Urine Mucus 0 SEEN Discharge Plan Dx/Rx/DC Orders Clinical Impression: Abdominal wall cellulitis Disposition Disposition: Acute Care Hospital [facility] Discharge Date/Time: 02/11/22 16:06
[2022-02-11] MEDS: 0.9% Normal Saline 1,000 ML 999 ML IV (11:08)
[2022-02-11] MEDS: Acetaminophen 500 MG Tablet 1000 MG PO (11:08)
[2022-02-11] MEDS: DiphenhydrAMINE 25 MG Capsule PO (11:08)
--- NOTE | 2022-02-11 11:32 | NURSING ---
NEEDS PTT REDRAWN, HEMOLIZED
[2022-02-11 11:34] LABS: Absolute Lymphocyte Count 1.72 X10^3/uL (0.83-4.51); Basophil# 0.05 X10^3/uL; Basophil% 0.3 % (0-1); Eosinophil# 0.22 X10^3/uL; Eosinophils% 1.5 % (0-5); Hematocrit 35.7 % (37-47); Lymphocyte # 1.72 X10^3/ul (0.83-4.51); Lymphocyte % 11.6 % (19-41); Mean Corp Hgb Conc 33.6 g/dL (32-36); Mean Corpuscular Hgb 30.2 pg (27.0-32.0); Mean Corpuscular Volume 89.9 fL (81-99); Mean Platelet Vol. 10.2 fl (6.2-12.0); Monocyte# 0.69 X10^3/uL; Monocyte% 4.7 % (0-10); NRBC Flagged by Analyzer 0 % (0-5); Neutrophil # 12.04 X10^3/uL (2.7-7.7); Neutrophil % 81.5 % (47-70); Platelet Count 209 K/mm3 (150-450); RBC Distribution Width CV 13.1 % (11.6-14.6); RBC Distribution Width SD 43.2 fl (35.1-43.9); Red Blood Count 3.97 M/mm3 (4.2-5.4); White Blood Count 14.8 K/mm3 (4.4-11.0)
[2022-02-11 11:46] LABS: ALB/GLOB Ratio 0.6 RATIO (0.9-2.4); AST(SGOT) 18 U/L (15-37); Alanine Aminotransfer ALT/SGPT 18 U/L (13-56); Albumin, Serum 2.7 g/dL (3.2-5.0); Alkaline Phosphatase 64 U/L (45-117); Anion Gap 7 (5-15); BUN 8 mg/dL (7-18); BUN/Creat Ratio 16.8 RATIO (10-20); Chloride 106 mmol/L (98-107); Creatinine, Serum 0.48 mg/dL (0.55-1.02); EST Glomerular Filtration Rate 159 mL/min (>60); Est Glom Filt Rate - Afr Amer 192 mL/min (>60); Estimated Creatinine Clearance 136.61 ml/min; Globulin 4.2 g/dL (2.2-4.2); Glucose 104 mg/dL (74-106); Potassium 3.6 mmol/L (3.5-5.1); Protein, Total 6.9 g/dL (6.4-8.2); Sodium Level 135 mmol/L (136-145)
[2022-02-11 11:53] LABS: Mucous, Urine 0 SEEN /hpf (<or=2+); Red Blood Cells-Urine 0 SEEN /hpf (0-5)
[2022-02-11 11:54] LABS: Color, Urine Yellow (Yellow); Glucose, Dipstick Normal (Normal); Ketone-Dipstick 15 mg/dl (Negative); Leukocyte Esterase-Dipstick 25 /ul (Negative); Nitrite-Dipstick Negative (Negative); Occult Blood-Urine Negative /ul (Negative); Protein-Dipstick Negative (Negative); Urine Bilirubin Dipstick Negative (Negative); Urine Clarity Sl. Cloudy (Clear); Urine Urobilinogen Normal (Normal)
[2022-02-11 12:04] LABS: Partial Thromboplast Time 32.1 Seconds (24.1-36.2)
[2022-02-11 12:05] LABS: Bacteria 1+ /hpf (None Seen); Squamous Epithelial Cells - UA 5-10 SEEN /hpf (5-10); White Blood Cells 0-5 SEEN /hpf (0-5)
[2022-02-11 12:06] LABS: Lactic Acid 0.7 mmol/L (0.4-1.9)
--- NOTE | 2022-02-11 14:54 | ED.RN ---
PT CONCERNED FOR ALLERGIC REACTION FROM VANCOMYCIN. PT STATES SECONDARY AREA OF REDNESS TO ABDOMEN IS RED, RAISED AND ITCHY. PT ALSO HAS REDNESS RUNNING UP FROM THE IV SITE. VANCOMYCIN HAS COMPLETED RUNNING AT THIS TIME. WAS NOTIFIED. NO NEW ORDERS RECEIVED. TO WAIT A BIT BEFORE STARTING ROCEPHIN
--- NOTE | 2022-02-11 14:59 | NURSING ---
Pt noted new rash on abd RLQ. Red area noted and reported to Nieves PANDYA.
--- NOTE | 2022-02-11 15:07 | NURSING ---
MED SURG TERBIJAN ABD CELLULITIS
[2022-02-11] MEDS: Ceftriaxone 1 GM/50 ML BAG IV (15:27)
--- NOTE | 2022-02-11 16:26 | PCM.HP.STD ---
HPI - General General Date of Admission: 02/11/22 Date of Service: 02/11/22 Chief Complaint: Abdominal wall redness/cellulitis HPI Narrative LILLIAN OCHOA, is a 36 F who presents to the emergency room at [facility] with complaints of redness and discomfort of the anterior abdominal wall. Patient is 14 weeks into her and has twins. She had been put on a Reglan drip for hyperemesis, the Reglan had been administered through a catheter that was inserted into her abdominal wall and connected to Reglan via a pump. She was seen yesterday by her OB physician and placed on Augmentin due to concerns of cellulitis in the anterior abdominal wall area, she came to the emergency room again today for evaluation due to worsening redness and discomfort in the anterior abdominal wall. Work-up in the emergency room included a white blood cell count which was elevated at 14.8, chemistry profile was unremarkable, and the patient was afebrile. Examination of the patient's anterior abdominal wall revealed a large area of redness and induration over the mid abdominal wall area, this area several centimeters in diameter and length. This area is moderately tender to palpation. Her APPRAISER TIMBER physician (covering physician) was contacted and requested the patient be admitted under the hospitalist service for treatment of cellulitis, patient has a stated allergy to penicillin although she had been taking Augmentin without any ill effects. Patient states that when she was on penicillin once before she had a rash with the penicillin. Patient will be admitted to [facility] and placed on IV Rocephin, she will be seen in consultation by EMERGENCY VEHICLE OPERATIONS INSTRUCTOR. [facility] Medical History (Updated 02/11/22 @ 15:15 by Veronika Helm) Abnormal bruising Anxiety Back pain Cervical strain Chest pain Concussion without loss of consciousness COVID-19 Fatigue Former smoker Hyperemesis Knee pain Migraines Shoulder pain Home Medications famotidine 10 mg tablet 10 mg PO DAILY PRN 12/21/21 [History Last Taken Unknown] prenat.vits,justine,[id number] 1 tab PO DAILY 12/21/21 [History Last Taken 02/10/22] folic acid 1 mg tablet 1 mg PO DAILY 01/04/22 [History Last Taken 02/10/22] promethazine 12.5 mg tablet 12.5 mg PO Q6H PRN #90 tab 01/04/22 [Rx Last Taken 02/11/22] ondansetron 4 mg disintegrating tablet 4 mg PO Q8H PRN PRN #60 tab 01/14/22 [Rx Last Taken Unknown] amoxicillin 875 mg-potassium clavulanate 125 mg tablet 1 tab PO BID 10 Days #20 tab 02/10/22 [Rx Last Taken 02/11/22] Allergy/AdvReac Type Severity Reaction Status Date / Time dicyclomine [From Bentyl] Allergy migraine Verified 02/11/22 10:28 Penicillins Allergy Rash Verified 02/11/22 10:28 Surgical History H/O dilation and curettage Social History adopted: No household members: significant other and children number of children: 2 current occupational status: employed 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; [employer] Smoking Status: Former smoker alcohol intake: current details: occasionally; not while substance use type: marijuana caffeine: Yes what type of physical activity do you participate in: none seatbelt use: always do you feel safe at home: Yes additional social history: Baljinder WEBB Constitutional Constitutional: Denies anorexia, change in weight, chills, fever(s), malaise, night sweats or weakness Eyes Eyes: Denies blurry vision, change in vision, discharge from eye(s) or eye pain ENT HEENT: Denies abnormal hearing or dysphagia Cardiovascular Cardiovascular: Denies chest pain, claudication, edema or palpitations Respiratory/Chest Respiratory/Chest: Denies cough, dyspnea, hemoptysis, productive cough, shortness of breath at rest or shortness of breath with exertion Gastrointestinal Gastrointestinal: Reports nausea and vomiting; Denies abdominal pain, constipation, diarrhea, hematemesis, hematochezia or melena Genitourinary Genitourinary: Denies dysuria, hematuria, urinary frequency, urinary hesitancy, urinary incontinence or urinary urgency Musculoskeletal Musculoskeletal: Reports other Details: Patient complains of redness and tenderness of the anterior abdominal wall x24 hours ; Denies back pain, joint pain, joint stiffness, joint swelling, myalgias or neck pain Neurologic Neurologic: Denies abnormal gait, abnormal speech, dizziness, focal weakness, headache(s), loss of vision, numbness, other visual disturbances, paresthesias, syncope or tingling Psychiatric Psychiatric: Denies anxiety, cognitive impairment, depression, irritability, mood swings or suicidal ideation Endocrine Endocrinology: Denies change in body appearance, cold intolerance, excessive sweating, heat intolerance, polydipsia or polyuria Hematologic/Lymphatic Hematologic/Lymphatic: Denies none, anemia, easy bleeding, easy bruising or lymphadenopathy Allergic/Immunologic Allergic/Immunologic: Denies rhinitis, urticaria, eczemia or asthma Vital Signs Vital Signs Vital Signs: 02/11/22 10:26 02/11/22 11:05 02/11/22 11:59 Temperature 97.2 F L 97.8 F Temperature Source Temporal Temporal Pulse Rate 76 77 Respiratory Rate 14 17 Blood Pressure 119/57 L 112/59 L Blood Pressure Mean 77 76 Blood Pressure Source Blood Pressure Position Blood Pressure Location Pulse Ox 100 100 Oxygen Delivery Method Room Air Room Air Room Air 02/11/22 12:55 02/11/22 14:53 02/11/22 15:37 Temperature 97.8 F 98.5 F 98.0 F Temperature Source Temporal Temporal Temporal Pulse Rate 82 74 78 Respiratory Rate 14 18 18 Blood Pressure 113/50 L 100/47 L 110/54 L Blood Pressure Mean 71 64 72 Blood Pressure Source Blood Pressure Position Blood Pressure Location Pulse Ox 100 98 100 Oxygen Delivery Method Room Air Room Air Room Air 02/11/22 16:18 Temperature 98.2 F Temperature Source Oral Pulse Rate 76 Respiratory Rate 18 Blood Pressure 108/49 L Blood Pressure Mean 68 Blood Pressure Source Monitor Blood Pressure Position Semi-Fowlers Blood Pressure Location Right Arm Pulse Ox 99 Oxygen Delivery Method Room Air Weight Weight: 73.7 kg Body Mass Index (BMI) 28.8 Physical Exam Const alert, oriented x3, no apparent distress, healthy appearing and well nourished General Appearance: cooperative, well kempt and well developed Orientation / Consciousness: awake, oriented to person, oriented to place and oriented to time HEENT normocephalic, head/scalp atraumatic, hearing grossly normal bilaterally and moist oral mucous membranes Eyes PERRL, EOMs intact bilaterally and conjunctivae normal Neck nuchal rigidity, supple, no JVD, thyroid normal and no carotid bruits General: trachea midline Resp normal respiratory effort and clear to auscultation bilaterally Auscultation: Negative for rales, rhonchi or wheezes Cardio regular rate, regular rhythm, S1 normal heart sound, S2 normal heart sound, no murmurs, no rub and no gallops GI normal to inspection, nondistended, normoactive bowel sounds, soft to palpation, non-tender and non-distended Extremity no clubbing, cyanosis or edema Skin Skin Narrative: There is a large area of redness over the patient's anterior abdominal wall extending across the abdomen, this area is approximately 8 to 10 cm in diameter across the abdomen by 6 cm in width. General Skin Exam: no breakdown Neuro oriented x3, CN's II-XII intact bilaterally, no focal motor deficits and no sensory deficits noted Sensorium / Orientation: awake and alert Speech: speech normal Psych affect normal Results Lab / Micro Data Result Diagrams: 02/11/22 11:10 02/11/22 11:10 Labs: Laboratory Results - last 24 hr 02/11/22 11:10: WBC 14.8 H, RBC 3.97 L, Hgb 12.0, Hct 35.7 L, MCV 89.9, MCH 30.2, MCHC 33.6, RDW Std Deviation 43.2, RDW Coeff of Tulio 13.1, Plt Count 209, MPV 10.2, Immature Gran % (Auto) 0.400, Neut % (Auto) 81.5 H, Lymph % (Auto) 11.6 L, [place] % (Auto) 4.7, Eos % (Auto) 1.5, Baso % (Auto) 0.3, Absolute Neuts (auto) 12.0 H, Absolute Lymphs (auto) 1.72, Nucleated RBC % 0 02/11/22 11:10: APTT Cancelled 02/11/22 11:10: Sodium 135 L, Potassium 3.6, Chloride 106, Carbon Dioxide 22.0, Anion Gap 7, BUN 8, Creatinine 0.48 L, Estim Creat Clear Calc 136.61, Est GFR (MDRD) Af Amer 192, Est GFR (MDRD) Non-Af 159, BUN/Creatinine Ratio 16.8, Glucose 104, Calcium 9.0, Total Bilirubin 0.30, AST 18, ALT 18, Alkaline Phosphatase 64, Total Protein 6.9, Albumin 2.7 L, Globulin 4.2, Albumin/Globulin Ratio 0.6 L 02/11/22 11:10: Lactic Acid 0.7 02/11/22 11:40: APTT 32.1 02/11/22 11:45: Urine Color Yellow, Urine Clarity Sl. Cloudy, Urine pH 7.0, Ur Specific [place] 1.010, Urine Protein Negative, Urine Glucose (UA) Normal, Urine Ketones 15 H, Urine Occult Blood Negative, Urine Nitrite Negative, Urine Bilirubin Negative, Urine Urobilinogen Normal, Ur Leukocyte Esterase 25 H, Urine RBC 0 SEEN, Urine WBC 0-5 SEEN, Ur Squamous Epith Cells 5-10 SEEN, Urine Bacteria 1+, Urine Mucus 0 SEEN Assessment & Plan Assessment/Plan (1) : QUALIFIERS: Weeks of gestation: 13 weeks Qualified Code(s): Z3A.13 - 13 weeks gestation of PLAN: 1. Anterior abdominal wall cellulitis-patient will be admitted to [facility] 3, she will be placed on Rocephin IV, she will be monitored and labs will be followed. Patient will be seen in consultation by EMERGENCY VEHICLE OPERATIONS INSTRUCTOR. #2 14-week intrauterine with twins-again patient will be seen by EMERGENCY VEHICLE OPERATIONS INSTRUCTOR #3 hyperemesis gravidarum-again the patient will be seen by EMERGENCY VEHICLE OPERATIONS INSTRUCTOR, she will be placed on Zofran for nausea Charges/Coding Visit Charges Inpatient E&M: 59870 Init Hosp L3
[2022-02-11] MEDS: 0.9% Normal Saline 1,000 ML 100 ML IV (17:14)
--- NOTE | 2022-02-11 18:08 | HP.PCM.OB_ITS ---
HPI - General General Date of Admission: 02/11/22 Chief Complaint: Abdominal wall redness/cellulitis HPI Narrative LILLIAN OCHOA, is a 36 y/o @ 14 weeks 0 days twin gestation who presents for treatment of abdominal wall cellulitis secondary to reglan pump. She is being admitted under the medicine service with a consult to OB. pt is being treated for hyperemesis secondary to twin gestation. The patient was started on augmentin yesterday in the office and a line was drawn around the red site. She was instructed to call if the redness extended beyond the boarders. Maternal Data Information CALI Calculator Estimated Delivery Date Method Current WG Current Estimate 08/12/22 LMP (Certain) 14w 0d Other Estimates 08/12/22 Ultrasound #1 14w 0d # 2 PFSH PFSH Medical History (Updated 02/11/22 @ 15:15 by Veronika Helm) Abnormal bruising Anxiety Back pain Cervical strain Chest pain Concussion without loss of consciousness COVID-19 Fatigue Former smoker Hyperemesis Knee pain Migraines Shoulder pain Home Medications famotidine 10 mg tablet 10 mg PO DAILY PRN 12/21/21 [History Last Taken Unknown] prenat.vits,justine,lut-jzdt-jwvuo 1 tab PO DAILY 12/21/21 [History Last Taken 02/10/22] folic acid 1 mg tablet 1 mg PO DAILY 01/04/22 [History Last Taken 02/10/22] promethazine 12.5 mg tablet 12.5 mg PO Q6H PRN #90 tab 01/04/22 [Rx Last Taken 02/11/22] ondansetron 4 mg disintegrating tablet 4 mg PO Q8H PRN PRN #60 tab 01/14/22 [Rx Last Taken Unknown] amoxicillin 875 mg-potassium clavulanate 125 mg tablet 1 tab PO BID 10 Days #20 tab 02/10/22 [Rx Last Taken 02/11/22] Allergy/AdvReac Type Severity Reaction Status Date / Time dicyclomine [From Bentyl] Allergy migraine Verified 02/11/22 10:28 Penicillins Allergy Rash Verified 02/11/22 10:28 Surgical History H/O dilation and curettage Social History adopted: No household members: significant other and children number of children: 2 current occupational status: employed 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 Date Name GA/Weeks Outcome Route Bth Weight Gen Labor Lgth Anesthesia Del Locatn Provider FOB Unknown 2018 SAB, D&C SM 08/14/09 Toby Joaquin 34 live - 4lbs 11oz Mal e 2 hours epidural [facility] 02/14/16 Emily 38 live - full term 7lbs 13oz Female 26 hours epidural Jeffery Fiore Delivery Date: No notes to display Delivery Date: 08/14/09 Pre-term labor. Alison Noel Delivery Date: 02/14/16 No issues during or delivery. Alison Noel Visit Details Expected Delivery Route/Plan Labor Preferences- CB/BF classes: [] labor support person: [] labor intervention preferences: [] pain management options preferred: [] cut cord/dad catch: [] : [] PP control planned: [] discussed possible routes of delivery and associated risks: [] special requests: [] Plans Covid status: discussed Flu vaccine: discussed Tdap vaccine: [] Rhogam: [] LARC form signed: [] Problem list reviewed and updated with the most current plan of care details and appropriate orders placed. Relevant counseling for the gestational age provided. Continue routine care and follow up unless otherwise noted in visit notes/problem list details OB Flowsheet Initial Weight: 155 lb Date -?-?-?-?-?-?-?-?-?-?-?-?- EGA Weight BP Urine Prot -?-?-?-?-?-?-?-?-?-?-?-?- Glucose FHR FuHt Pres Dilation -?-?-?-?-?-?-?-?-?-?-?-?- Effaced St Visit Note 01/04/22 -?-?-?-?-?-?-?-?-?-?-?-?- 8w 4d 149 lb (-6 lb) 112/82 -?-?-?-?-?-?-?-?-?-?-?-?- A 160 -?-?-?-?-?-?-?-?-?-?-?-?- B 160 A -?-?-?-?-?-?-?-?-?-?-?-?- B -?-?-?-?-?-?-?-?-?-?-?-?- A -?-?-?-?-?-?-?-?-?-?-?-?- B A SM- failed zofra n pepcid and phenergan, meclizine, got better with IVF phenergan reglan and zofran, will get optum home consult for reglan pump and ivfs at home. -?-?-?-?-?-?-?-?-?-?-?-?- B 01/14/22 -?-?-?-?-?-?-?-?-?-?-?-?- 10w 0d 159 lb 6 oz (+4 lb 6 oz) Negative -?-?-?-?-?-?-?-?-?-?-?-?- Negative A 170 -?-?-?-?-?-?-?-?-?-?-?-?- B 166 A -?-?-?-?-?-?-?-?-?-?-?-?- B -?-?-?-?-?-?-?-?-?-?-?-?- A -?-?-?-?-?-?-?-?-?-?--?-?- B A SM- nausea impro ving, optum following up at home getting nipt today -?-?-?-?-?-?-?-?-?-?-?-?- B 01/27/22 -?-?-?-?-?-?-?-?-?-?-?-?- 11w 6d 162 lb 8 oz (+7 lb 8 oz) 138/80 Negative -?-?-?-?-?-?-?-?-?-?-?-?- Negative A 150 -?-?-?-?-?-?-?-?-?-?-?-?- B 145 A -?-?-?-?-?-?-?--?-?-?-?-?- B -?-?-?-?-?-?-?-?-?-?-?-?- A -?-?-?-?-?-?-?-?-?-?-?-?- B A SM- co pink whil e wiping -?-?-?-?-?-?-?-?-?-?-?-?- B 02/10/22 -?-?-?-?-?-?-?-?-?-?-?-?- 13w 6d 163 lb (+8 lb) 114/82 Negative -?-?-?-?-?-?-?-?-?-?-?-?- Negative A 150 -?-?-?-?-?-?-?-?-?-?-?-?- B 163 A -?-?-?-?-?-?-?-?-?-?-?-?- B -?-?-?-?-?-?-?-?-?-?-?-?- A -?-?-?-?-?-?-?-?-?-?-?-?- B A JV- pt has cellu litis on her abdomen secondary to reglan pump. starting abx. pt to call if redness extends past the line I morales. She is having some agitation with reglan. will change zofran. -?-?-?-?-?-?-?-?-?-?-?-?- B 02/11/22 -?-?-?-?-?-?-?-?-?-?-?-?- 14w 0d 163 lb 2.273 oz (+8 lb 2.273 oz) 162 lb 7.691 oz (+7 lb 7.691 oz) 119/57 112/59 113/50 100/47 110/54 110/54 108/49 Negative mg/dl (Nega tive) -?-?-?-?-?-?-?-?-?-?-?-?- A -?-?-?-?-?-?-?-?-?-?-?-?- B A -?-?-?-?-?-?-?-?-?-?-?-?- B -?-?-?-?-?-?-?-?-?-?-?-?- A -?-?-?-?-?-?-?-?-?-?-?-?- B A -?-?-?-?-?-?-?-?-?-?-?-?- B ROS Constitutional Constitutional: Denies change in weight, fatigue, fever(s), headache(s), poor appetite or weakness Eyes Eyes: Denies blurry vision, change in vision, seeing flashes or spots in vision ENT HEENT: Denies dizziness, headache(s), loss taste/smell or sore throat Cardiovascular Cardiovascular: Denies chest pain, dizziness, dyspnea, irregular heart rhythm, leg edema, palpitations, rapid heart rate or vomiting Respiratory/Chest Respiratory/Chest: Denies chest tightness, cough, dyspnea or breast pain Gastrointestinal Gastrointestinal: Denies abdominal pain, anorexia, constipation, cramping, diarrhea, hemorrhoids, vomiting or weight changes Genitourinary Genitourinary: Denies dysuria, flank pain, genital lesions, genital pain, urinary frequency or urinary urgency Musculoskeletal Musculoskeletal: Denies back pain, difficulty walking, joint pain, limited range of motion, muscle cramps or numbness Integumentary Integumentary: Denies lesions or unusual bruising Neurologic Neurologic: Denies abnormal movements, abnormal speech, dizziness, numbness, seizure-like activity or syncope Psychiatric Psychiatric: Denies anxiety, behavioral changes, change in appetite, change in libido, cognitive impairment, confusion, depression, difficulty concentrating, hallucinations or suicidal thoughts Endocrine Endocrinology: Denies excessive sweating, polydipsia or polyuria Hematologic/Lymphatic Hematologic/Lymphatic: Denies easy bleeding, easy bruising or lymphadenopathy Allergic/Immunologic Allergic/Immunologic: Denies itchy eyes, lip swelling, seasonal rhinorrhea, rhinitis, throat swelling, tongue swelling, eczemia, wheezing or asthma Vital Signs Vital Signs Vital Signs: 02/11/22 10:26 02/11/22 11:05 02/11/22 11:59 Temperature 97.2 F L 97.8 F Temperature Source Temporal Temporal Pulse Rate 76 77 Respiratory Rate 14 17 Blood Pressure 119/57 L 112/59 L Blood Pressure Mean 77 76 Blood Pressure Source Blood Pressure Position Blood Pressure Location Pulse Ox 100 100 Oxygen Delivery Method Room Air Room Air Room Air 02/11/22 12:55 02/11/22 14:53 02/11/22 15:37 Temperature 97.8 F 98.5 F 98.0 F Temperature Source Temporal Temporal Temporal Pulse Rate 82 74 78 Respiratory Rate 14 18 18 Blood Pressure 113/50 L 100/47 L 110/54 L Blood Pressure Mean 71 64 72 Blood Pressure Source Blood Pressure Position Blood Pressure Location Pulse Ox 100 98 100 Oxygen Delivery Method Room Air Room Air Room Air 02/11/22 16:18 Temperature 98.2 F Temperature Source Oral Pulse Rate 76 Respiratory Rate 18 Blood Pressure 108/49 L Blood Pressure Mean 68 Blood Pressure Source Monitor Blood Pressure Position Semi-Fowlers Blood Pressure Location Right Arm Pulse Ox 99 Oxygen Delivery Method Room Air Weight Weight: 162 lb 7.691 oz Body Mass Index (BMI) 28.8 Physical Exam Const alert, oriented x3, no apparent distress and healthy appearing General Appearance: cooperative; Negative for anxious HEENT normocephalic Face and Sinus: normal facial exam Eyes EOMs intact bilaterally and no scleral icterus General Eye: normal appearance of both eyes Neck full ROM and supple Lymph Lymphatic: no lymphadenopathy noted Chest Chest: abnormal inspection of the chest Resp normal respiratory effort Effort and Inspection: able to speak in complete sentences Cardio regular rate GI soft to palpation and non-tender Inspection: gravid Palpation: soft; Negative for tender external exam normal Back/Spine no CVA tenderness Extremity normal to inspection, full ROM and no clubbing, cyanosis or edema General Extremity: Negative for calf tenderness or edema Skin Skin Narrative: the initial ring of erythema is now greatly improved however there is a second area on the right side now. circles are drawn around the areas. Psych mental status grossly normal Labs Labs Labs: Blood Type A NEGATIVE Antibody Screen NEGATIVE Hct 35.7 % (37-47) L Hgb 12.0 g/dL (12.0-15.0) Obstetrics US Syphilis Total Ab Non-reactive Rubella IgG Antibody Reactive (Nonreactive) Hep Bs Antigen Non-Reactive (Nonreactive) Chlamydia DNA (FRANCESCO) Negative (Negative) Neisseria gonorrhoeae DNA (FRANCESCO) Negative (Negative) HIV 1&2 Antibody Non-Reactive (Nonreactive) Assessment & Plan (1) Depression: COMMENT: Lexapro. encouraged counseling (2) Marijuana use, episodic: COMMENT: Positive at NOB Random tox screens encouarged cessation (3) Supervision of high risk , antepartum: COMMENT: CALI 08/12/22 fraternal boys PC:Emily Nuñez. Fiance:Rashid (4) Nausea/vomiting in : COMMENT: s/p ED, OP IVFs, Zofran, Phenergan, Meclizine, Pepcid, Reglan. plan optum consult with Reglan pump (5) : QUALIFIERS: Weeks of gestation: 13 weeks Qualified Code(s): Z3A.13 - 13 weeks gestation of COMMENT: desires carrier and genetic screening (6) Infertility: COMMENT: letrozole (7) Rh negative status during : COMMENT: rhogam at 28 weeks and PRN (8) Hypokalemia: COMMENT: Potassium ordered for 7 days (9) Vaginal bleeding during : COMMENT: 01/27 (10) Dichorionic diamniotic twin : COMMENT: nipt low risk, growth us q 4 weeks. delivery at 38. (11) Cellulitis: COMMENT: pt developed cellulitis secondary to reglan pump. - started on augmentin on 02/10/22 (12) Abdominal wall cellulitis: PLAN: cellulits treatment per internal medicine greatly appreciated zofran for nausea vistaril for itching and insomnia ultrasound in the am suspect the wbc will not drop much due to the and physiologic increase in wbc in normal pregnancies. Charges/Coding Multi Select Codes Visit Charges Visit Charges: 03120 Init Hosp L3
[2022-02-11] MEDS: Acetaminophen 325 MG Tablet 650 MG PO (20:09)
[2022-02-11] MEDS: hydrOXYzine PAM 25 MG Capsule 50 MG PO (20:51)
[2022-02-12 02:06] VITALS: BP 93/49; PULSE 72; RESP 16; TEMP 36.6; O2SAT 99
[2022-02-12] MEDS: 0.9% Normal Saline 1,000 ML 100 ML IV (02:06)
[2022-02-12] MEDS: Acetaminophen 325 MG Tablet 650 MG PO ×2 (04:59→13:45)
[2022-02-12 05:18] LABS: Absolute Lymphocyte Count 1.88 X10^3/uL (0.83-4.51); Absolute Neutrophil Count 9.1 X10^3/uL (2.0-7.7); Basophil# 0.04 X10^3/uL; Basophil% 0.3 % (0-1); Eosinophil# 0.27 X10^3/uL; Eosinophils% 2.3 % (0-5); Hematocrit 38.5 % (37-47); Hemoglobin 12.5 g/dL (12.0-15.0); Lymphocyte # 1.88 X10^3/ul (0.83-4.51); Lymphocyte % 15.7 % (19-41); Mean Corp Hgb Conc 32.5 g/dL (32-36); Mean Corpuscular Hgb 29.6 pg (27.0-32.0); Mean Corpuscular Volume 91.2 fL (81-99); Mean Platelet Vol. 9.9 fl (6.2-12.0); Monocyte# 0.62 X10^3/uL; Monocyte% 5.2 % (0-10); NRBC Flagged by Analyzer 0 % (0-5); Neutrophil # 9.07 X10^3/uL (2.7-7.7); Platelet Count 221 K/mm3 (150-450); RBC Distribution Width CV 13.1 % (11.6-14.6); RBC Distribution Width SD 43.9 fl (35.1-43.9); Red Blood Count 4.22 M/mm3 (4.2-5.4); White Blood Count 11.9 K/mm3 (4.4-11.0)
[2022-02-12 07:26] VITALS: BP 106/59; PULSE 71; RESP 16; TEMP 36.8; O2SAT 99
[2022-02-12] MEDS: Prenatal Vits Tablet 1 TABLET PO (07:40)
[2022-02-12] MEDS: Folic Acid 1 MG Tablet PO (07:40)
[2022-02-12] MEDS: Ondansetron ODT 4 MG Tablet PO (09:17)
[2022-02-12] MEDS: Ceftriaxone 1 GM/50 ML BAG IV (09:18)
[2022-02-12 10:04] LABS: Thyroid Stim Hormone (TSH) 0.66 uIU/mL (0.358-3.74)
[2022-02-12 10:54] LABS: Hemoglobin A1c 4.7 % (3.8-5.6)
--- NOTE | 2022-02-12 10:57 | US_ITS ---
STUDY: FIRST TRIMESTER OBSTETRICAL ULTRASOUND (TWINS)-Limited REASON FOR EXAM: Female, 36 years old. LMP: 11/05/2021 twin gestation ultrasound - well being TECHNIQUE: Transabdominal TECHNICAL QUALITY: Limited. Biometrics not performed. COMPARISON: None. FINDINGS: There are two demonstrated intrauterine gestational sacs. There is a single identified placenta, however, there is a ?twin peak? sign, consistent with a ?fused? dichorionic placenta. The amniotic membrane cannot be visualized. BABY A Posterior placenta identified. Transverse right orientation. There is visualization of an embryo. There is demonstrated cardiac activity with a heart rate 152 bpm. BABY B Posterior placenta identified. Breech orientation. There is visualization of an embryo. There is demonstrated cardiac activity with a heart rate 152 bpm. US/OB Limited (No Biometrics) IMPRESSION: Limited ultrasound of intrauterine twin , as above. Electronically Signed: Randy Berg MD (Brooks) at 16:57 EDT ,
--- NOTE | 2022-02-12 12:00 | CASEMGMT ---
RN CM REFRIGERATOR GLAZIER CM to room to meet with patient for initial transition planning/care coordination assessment. RN SRIDEVI introduced self and role at [facility]. Pt voices understanding and consents to assessment at this time. Pt resting in bed in no distress at this time. Pt is A/O at this time and answers all questions appropriately. Care providers, pharmacy, and demographics verified/updated at this time. PCP: Dr Cohen Specialists: Dr Regan--RESIN FILTERER. Pt is 14-wks w/twins. [facility]erred [facility]acy: [facility] Insurance:Ellie BENJA Prescription Benefit: Yes Living Will/HPOA: Pt does not currently have LW/HCPOA. Pt made aware this can be completed w/SW or she can contact SW as an out-pt and make appt in the future if she decides she would like to talk with someone about this or would like to utilize [facility] social work for advanced directive completion. Given Glaze Wiper Rac card with information and contact number. Pt expresses understanding. LNOK: Parents, Toby and Serenity Drake. Fiance. Living Arrangements: Lives w/fiance and 2 children, ages 12 and 6, in one-story home. Pt is independent. Fiance is very supportive. Transportation: Pt states drives self and states no transportation concerns at this time. Fiance also drives. DME: Pt has a Reglan Pump. Denies using any other DME and denies needs. HHC/SNF: No hx of SNF. Did have HHC after last : SN for injections. Pt wishes to return home and states has no concerns with going home at time of discharge. 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 CM to follow for any discharge planning/needs. Pt voices no concerns/needs at this time. Advised pt to ask for CM if any questions/concerns/needs arise. Voices understanding. PLAN: Home w/discharge plans in place, fiance, and parents support. Carlton STONER RN, CM
--- NOTE | 2022-02-12 13:31 | PCM.DC.SUM ---
Providers Date of Admission: 02/11/22 Date of Discharge: 02/12/22 Primary Care Physician: Dr. Roger Cohen MD Consultations 02/11/22 16:16 Consult: PATHOLOGIST ASSISTANT Routine Consulting Provider: Veronika Segovia Reason for Consult: Hyperemesis, EMERGENT Consult: No Notified: Yes Date Notified: 02/11/22 Time Notified: 14:47 Method of Notification: Verbal 02/12/22 07:47 Consult: Infectious Disease Routine Consulting Provider: Junior Palma Reason for Consult: Cellulitis in a female with twin gestation EMERGENT Consult: No Notified: Yes Date Notified: 02/12/22 Time Notified: 12:13 Method of Notification: Answering Service Reason For Visit: CELLULITIS OF ABDOMINAL Diagnosis Discharge Diagnosis (1) Depression: Status: Chronic Code(s): F32.9 - Major depressive disorder, single episode, unspecified (2) Marijuana use, episodic: Status: Acute Code(s): F12.90 - Cannabis use, unspecified, uncomplicated (3) Supervision of high risk , antepartum: Status: Acute Code(s): O09.90 - Supervision of high risk , unspecified, unspecified trimester (4) Nausea/vomiting in : Status: Acute Code(s): O21.9 - Vomiting of , unspecified (5) : Status: Acute Code(s): Z34.90 - Encounter for supervision of normal , unspecified, unspecified trimester Qualifiers: Weeks of gestation: 13 weeks Qualified Code(s): Z3A.13 - 13 weeks gestation of (6) Infertility: Status: Acute (7) Rh negative status during : Status: Acute Code(s): O26.899 - Other specified related conditions, unspecified trimester; Z67.91 - Unspecified blood type, Rh negative (8) Hypokalemia: Status: Acute Code(s): E87.6 - Hypokalemia (9) Vaginal bleeding during : Status: Acute Code(s): O46.90 - Antepartum hemorrhage, unspecified, unspecified trimester (10) Dichorionic diamniotic twin : Status: Acute Code(s): O30.049 - Twin , dichorionic/diamniotic, unspecified trimester (11) Cellulitis: Status: Acute Code(s): L03.90 - Cellulitis, unspecified (12) Abdominal wall cellulitis: Status: Acute Code(s): L03.311 - Cellulitis of abdominal wall Medications at Discharge Home Medications famotidine 10 mg tablet 10 mg PO DAILY PRN 12/21/21 prenat.vits,justine,gjs-yoxc-nrgll 1 tab PO DAILY 12/21/21 folic acid 1 mg tablet 1 mg PO DAILY 01/04/22 promethazine 12.5 mg tablet 12.5 mg PO Q6H PRN #90 tab 01/04/22 ondansetron 4 mg disintegrating tablet 4 mg PO Q8H PRN PRN #60 tab 01/14/22 amoxicillin 875 mg-potassium clavulanate 125 mg tablet 1 tab PO BID 10 Days #20 tab 02/10/22 Hospital Course Operations None Procedures None Summary of Care Provided Minutes Spent on Discharge: 36 Hospital Course: Mrs. Drake is a 36-year-old white female who presented to the emergency department [facility] on 02/11/2022 with a chief complaint of abdominal wall pain and redness. The patient is 14 weeks gestation with diamniotic/dichorionic twins that were conceived via infertility treatment who has had issues with hyperemesis gravidarum and was placed on a Reglan subcutaneous pump for nausea and vomiting control. She moves the pump periodically and has developed erythema at the sites of pump placement. She was seen by her PATHOLOGIST ASSISTANT 2 days prior to presentation and was placed on oral antibiotics at that time however the erythema had grown in size and she decided to be evaluated emergency department. Work-up in the emergency department was overall unremarkable other than a mild leukocytosis which after discussion with PATHOLOGIST ASSISTANT could be physiologic based on her . On exam she had anterior abdominal wall erythema x2 areas with induration but no drainage. These areas were outlined at the time of admission. Her PATHOLOGIST ASSISTANT was contacted and requested the patient be admitted under the hospital service for treatment of her cellulitis with consultation to the OB service. She evidently has a history of penicillin allergy and was therefore placed on ceftriaxone and vancomycin by the emergency department and ceftriaxone was continued on admission. She was admitted to medical floor maintained on IV ceftriaxone. On the a.m. of 02/12/2022 she had marked improvement, per her report, in in the area of redness and her tenderness. ID consultation was placed and Dr. Palma recommended continuation of the Augmentin that she was prescribed by her primary PATHOLOGIST ASSISTANT with outpatient follow-up. He did feel she was stable for discharge today. She was discharged home in stable condition instructed to complete her antibiotic course with Augmentin as previously prescribed. It was also recommend she follow-up with her PATHOLOGIST ASSISTANT as scheduled or earlier depending on any symptoms she may be having with regards to her cellulitis. Of note, she had not been on her Reglan pump for 2 to 3 days at presentation and had been overall feeling better so she was hopeful that she would not have to reinitiate this at home. She does have home Phenergan and Zofran if needed. Discharge diagnosis: Abdominal wall cellulitis secondary to Reglan pump placement Physiologic leukocytosis secondary to Hyperemesis gravidarum 14-week diamniotic dichorionic Infertility Physical Exam Const alert, oriented x3, no apparent distress and average body habitus Constitutional Narrative: Middle-aged white female lying in bed, appears comfortable nontoxic General Appearance: cooperative, comfortable, well kempt and well developed Orientation / Consciousness: awake Exam Limitations: no limitations HEENT normocephalic, head/scalp atraumatic, hearing grossly normal bilaterally, moist oral mucous membranes and oropharynx normal HEENT Narrative: Mallampati 2, no thrush, dentition is good Eyes PERRL, EOMs intact bilaterally and conjunctivae normal Eyes Narrative: No scleral icterus Neck no lymphadenopathy, supple and no JVD Resp normal respiratory effort, no retractions, no use of accessory muscles and clear to auscultation bilaterally Auscultation: Negative for crackles, rales, rhonchi or wheezes Cardio regular rate, regular rhythm, S1 normal heart sound, S2 normal heart sound, no murmurs, no rub, no gallops, no clicks and no JVD GI normal to inspection, nondistended, normoactive bowel sounds, soft to palpation, non-tender and non-distended; Negative for hepatosplenomegaly GI Narrative: Gravid uterus, small erythematous patches on abdomen significantly reduced in size from outlined area that was placed on presentation, no purulence or drainage Extremity no clubbing, cyanosis or edema Extremity Narrative: 2+Plus pedal pulses Skin no wounds, skin turgor normal and no jaundice Skin Narrative: As above Neuro oriented x3, CN's II-XII intact bilaterally, moves all extremities, no focal motor deficits and no sensory deficits noted Sensorium / Orientation: awake and alert Speech: speech normal Motor Exam: strength 5/5 throughout Psych affect normal Weight / BMI Weight Weight: 73.7 kg Body Mass Index (BMI) 28.8 ABG / Lab / Microbiology Data Result Diagrams: 02/12/22 04:57 02/11/22 11:10 Laboratory: Laboratory Results - last 24 hr 02/12/22 04:57: WBC 11.9 H, RBC 4.22, Hgb 12.5, Hct 38.5, MCV 91.2, MCH 29.6, MCHC 32.5, RDW Std Deviation 43.9, RDW Coeff of [place] 13.1, Plt Count 221, MPV 9.9, Immature Gran % (Auto) 0.500, Neut % (Auto) 76.0 H, Lymph % (Auto) 15.7 L, [place] % (Auto) 5.2, Eos % (Auto) 2.3, Baso % (Auto) 0.3, Absolute Neuts (auto) 9.1 H, Absolute Lymphs (auto) 1.88, Nucleated RBC % 0 02/12/22 04:57: Hemoglobin A1c 4.7 02/12/22 04:57: TSH 0.66 D/C Instructions Discharge Diet: No restrictions Discharge Activity: Return to Normal Activity Meaningful Use Info Meaningful Use Diagnoses (Choose all that apply): None applicable Discharge Plan Admission Admit Date/Time: 02/11/22 14:40 Primary Reason for Your Visit: Abdominal cellulitis Attending Provider: Krista Wheeler Primary Care Provider: Roger Cohen Consulting Providers: Veronika Segovia ; Vazquez Kumar ; Junior Palma Instructions Additional Instructions / Restrictions: 1. Complete course of oral Augmentin that was prescribed 2. Would avoid use of Reglan pump if possible Discharge Orders/Prescriptions Prescriptions: Continued folic acid 1 mg tablet 1 mg PO DAILY RF: 0 prenat.vits,justine,[id number] Tablet 1 tab PO DAILY RF: 0 famotidine [Pepcid AC] 10 mg tablet 10 mg PO DAILY PRN (Reason: Stomach Upset) RF: 0 ondansetron 4 mg tablet,disintegrating 4 mg PO Q8H PRN PRN (Reason: Nausea) Qty: 60 RF: 3 amoxicillin-pot clavulanate 875-125 mg tablet 1 tab PO BID 10 Days Qty: 20 RF: 0 promethazine 12.5 mg tablet 12.5 mg PO Q6H PRN (Reason: nausea and vomiting) Qty: 90 RF: 4 Referrals / Follow Up: Maria Regan MD [STAFF PHYSICIAN] - See Referral Note (As scheduled but follow-up earlier if your cellulitis returns or worsens after reinitiating oral antibiotics) Roger Cohen MD [Primary Care Provider] - See Referral Note (As needed) Disposition Disposition (needs filled in before D/C Order can be placed): Home, Self Care Charges/Coding Visit Charges Inpatient E&M: 40499 Disch Hosp
--- NOTE | 2022-02-12 15:07 | PCM.PN.OB ---
Subjective Subjective pt states that she is feeling great and has been given clearance for discharge. no cramping or spotting and states that her nausea is improved even off the reglan pump. Objective Data Objective Data Vital Signs: Vital Signs Temp Pulse Resp BP Pulse Ox 98.2 F 71 16 106/59 L 99 02/12/22 07:26 02/12/22 07:26 02/12/22 07:26 02/12/22 07:26 02/12/22 07:26 Oxygen Delivery Method Room Air Weight: 162 lb 7.691 oz Body Mass Index (BMI) 28.8 Intake & Output: Intake and Output for Last 24 Hours 02/10/22 02/11/22 02/12/22 23:59 23:59 23:59 Intake Total 1585 / 1585 1936.67 / 1935. Balance 1585 / 1585 1935. / 1935. Lab / Micro Data Result Diagrams: 02/12/22 04:57 02/11/22 11:10 Labs: Laboratory Results - last 24 hr 02/12/22 04:57: WBC 11.9 H, RBC 4.22, Hgb 12.5, Hct 38.5, MCV 91.2, MCH 29.6, MCHC 32.5, RDW Std Deviation 43.9, RDW Coeff of Tulio 13.1, Plt Count 221, MPV 9.9, Immature Gran % (Auto) 0.500, Neut % (Auto) 76.0 H, Lymph % (Auto) 15.7 L, [place] % (Auto) 5.2, Eos % (Auto) 2.3, Baso % (Auto) 0.3, Absolute Neuts (auto) 9.1 H, Absolute Lymphs (auto) 1.88, Nucleated RBC % 0 02/12/22 04:57: Hemoglobin A1c 4.7 02/12/22 04:57: TSH 0.66 ROS Constitutional Constitutional: Denies change in weight, chills, fatigue, fever(s), headache(s), poor appetite or weakness ENT HEENT: Denies dizziness, headache(s), loss taste/smell or sore throat Cardiovascular Cardiovascular: Denies chest pain, dizziness, dyspnea, irregular heart rhythm, leg edema, palpitations, rapid heart rate or vomiting Respiratory/Chest Respiratory/Chest: Denies chest tightness, cough, dyspnea or breast pain Gastrointestinal Gastrointestinal: Denies abdominal pain, anorexia, constipation, cramping, diarrhea, hemorrhoids, vomiting or weight changes Genitourinary Genitourinary: Denies dysuria, flank pain, genital lesions, genital pain, urinary frequency or urinary urgency Musculoskeletal Musculoskeletal: Denies back pain or muscle cramps Neurologic Neurologic: Denies dizziness or syncope Psychiatric Psychiatric: Denies anxiety, behavioral changes, change in appetite or depression Physical Exam Const alert, oriented x3, no apparent distress and healthy appearing General Appearance: cooperative; Negative for anxious Chest Chest: abnormal inspection of the chest Resp normal respiratory effort Effort and Inspection: able to speak in complete sentences GI soft to palpation and non-tender Inspection: gravid Palpation: soft; Negative for tender external exam normal Extremity normal to inspection, full ROM and no clubbing, cyanosis or edema General Extremity: Negative for calf tenderness or edema Skin Wound Narrative: The area of cellulitis appears to be smaller than yesterday and non-tender Psych mental status grossly normal Assessment & Plan (1) Depression: COMMENT: Lexapro. encouraged counseling (2) Marijuana use, episodic: COMMENT: Positive at NOB Random tox screens encouarged cessation (3) Supervision of high risk , antepartum: COMMENT: CALI 08/12/22 fraternal boys PC:Emily Nuñez. Fiance:Rashid (4) Nausea/vomiting in : COMMENT: s/p ED, OP IVFs, Zofran, Phenergan, Meclizine, Pepcid, Reglan. plan optum consult with Reglan pump (5) : QUALIFIERS: Weeks of gestation: 13 weeks Qualified Code(s): Z3A.13 - 13 weeks gestation of COMMENT: desires carrier and genetic screening (6) Rh negative status during : COMMENT: rhogam at 28 weeks and PRN (7) Dichorionic diamniotic twin : COMMENT: nipt low risk, growth us q 4 weeks. delivery at 38. (8) Cellulitis: COMMENT: pt developed cellulitis secondary to reglan pump. - started on augmentin on 02/10/22 PLAN: ultrasound today is normal with heart tones x 2 wbc count lower today and cellulitis appears improved pt has been discharged per medicine team-greatly appreciate their help. she will continue augmentin x 7 days at home. home nurse will contact patient regarding zofran pump on tuesday Charges/Coding Multi Select Codes Visit Charges Visit Charges: 68230 Subs Hosp L3
--- NOTE | 2022-02-12 15:53 | PCM.CONS.GEN ---
Assessment & Plan Assessment/Plan (1) Abdominal wall cellulitis: PLAN: Much improved, ok to go home on 1 more week po augmentin. Will follow, thank you, d/w primary team HPI Consult Data Date of Consult: 02/12/22 HPI Narrative HPI Narrative: LILLIAN OCHOA, is a 36 F who presented with several days abd redness and pain with some clear drainage around site of reglan pump. with twins, no fever. Nausea controlled. Started on augmentin, but rash worsened, came to hospital, admitted with ceftriaxone, feeling much better. Fully vaccinated and boosted for covid. Full ROS performed and neg except as noted above. [facility] Medical History Abnormal bruising Anxiety Back pain Cervical strain Chest pain Concussion without loss of consciousness COVID-19 Fatigue Former smoker Hyperemesis Knee pain Migraines Shoulder pain Home Medications famotidine 10 mg tablet 10 mg PO DAILY PRN 12/21/21 [History Last Taken Unknown] prenat.vits,justine,dgi-rbbs-chifa 1 tab PO DAILY 12/21/21 [History Last Taken 02/10/22] folic acid 1 mg tablet 1 mg PO DAILY 01/04/22 [History Last Taken 02/10/22] promethazine 12.5 mg tablet 12.5 mg PO Q6H PRN #90 tab 01/04/22 [Rx Last Taken 02/11/22] ondansetron 4 mg disintegrating tablet 4 mg PO Q8H PRN PRN #60 tab 01/14/22 [Rx Last Taken Unknown] amoxicillin 875 mg-potassium clavulanate 125 mg tablet 1 tab PO BID 10 Days #20 tab 02/10/22 [Rx Last Taken 02/11/22] Allergy/AdvReac Type Severity Reaction Status Date / Time dicyclomine [From Bentyl] Allergy migraine Verified 02/11/22 10:28 Penicillins Allergy Rash Verified 02/11/22 10:28 Surgical History H/O dilation and curettage Social History adopted: No household members: significant other and children number of children: 2 current occupational status: employed 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; [employer] Smoking Status: Former smoker alcohol intake: current details: occasionally; not while substance use type: marijuana caffeine: Yes what type of physical activity do you participate in: none seatbelt use: always do you feel safe at home: Yes additional social history: Baljinder Mike Physical Exam Const alert, oriented x3 and no apparent distress General Appearance: cooperative HEENT head/scalp atraumatic Eyes PERRL and EOMs intact bilaterally Neck supple and No nodes Resp normal air movement and clear to auscultation bilaterally Cardio regular rate and regular rhythm GI GI Narrative: gravid, soft Extremity no clubbing, cyanosis or edema Skin Skin Narrative: fading erythema on abd Neuro CN's II-XII intact bilaterally Lab / Micro Data Result Diagrams: 02/12/22 04:57 02/11/22 11:10 Labs: Laboratory Results - last 24 hr 02/12/22 04:57: WBC 11.9 H, RBC 4.22, Hgb 12.5, Hct 38.5, MCV 91.2, MCH 29.6, MCHC 32.5, RDW Std Deviation 43.9, RDW Coeff of Tulio 13.1, Plt Count 221, MPV 9.9, Immature Gran % (Auto) 0.500, Neut % (Auto) 76.0 H, Lymph % (Auto) 15.7 L, [place] % (Auto) 5.2, Eos % (Auto) 2.3, Baso % (Auto) 0.3, Absolute Neuts (auto) 9.1 H, Absolute Lymphs (auto) 1.88, Nucleated RBC % 0 02/12/22 04:57: Hemoglobin A1c 4.7 02/12/22 04:57: TSH 0.66
== END 2022-02-12 15:10 | disposition home or self-care (01) | DRG 566 ==
LOC: ED 15:02 → MS3 15:09
PROVIDERS: Nurse Practitioner; Admitting Provider Internal Medicine; Emergency Provider Emergency Medicine; PCP Internal Medicine; Visit Provider Internal Medicine
DX: O99.712 Diseases of the skin and subcutaneous tissue complicating pregnancy, second trimester (principal); L03.311 Cellulitis of abdominal wall; T85.79XA Infection and inflammatory reaction due to other internal prosthetic devices, implants and grafts, initial encounter; F12.90 Cannabis use, unspecified, uncomplicated; F32.9 Major depressive disorder, single episode, unspecified; R11.2 Nausea with vomiting, unspecified; E87.6 Hypokalemia; O26.892 Other specified pregnancy related conditions, second trimester; O99.322 Drug use complicating pregnancy, second trimester; Z3A.14 14 weeks gestation of pregnancy; O99.342 Other mental disorders complicating pregnancy, second trimester; O99.282 Endocrine, nutritional and metabolic diseases complicating pregnancy, second trimester; Z87.891 Personal history of nicotine dependence; O30.042 Twin pregnancy, dichorionic/diamniotic, second trimester; Z86.16 Personal history of COVID-19; O9A.212 Injury, poisoning and certain other consequences of external causes complicating pregnancy, second trimester; Y82.8 Other medical devices associated with adverse incidents
CPT/HCPCS: 36415; 76815; 80053; 81001; 83036; 83605; 84443; 85025; 85730; 87040; 93005; 99285; 99406; J7030; J7040; A4216

== ENCOUNTER 2022-03-27 07:37 | Emergency (ER) | payer MEDICAID, SELFPAY ==
[2022-03-27 07:38] VITALS: BP 116/65; PULSE 81; RESP 16; TEMP 36.6; O2SAT 96; BMI 28.3
--- NOTE | 2022-03-27 07:42 | ED.RN ---
pt is 20 weeks pregnanat. reports no to remaining ob screening questions past 20 weeks. system not allowing to edit or chart those responses in intervention.
--- NOTE | 2022-03-27 08:02 | EX.ED.VIS.HA ---
HPI History of Present Illness Chief Complaint: Headache Informant: patient Narrative Narrative: Patient presents with headache and some nausea vomiting. Patient started with a headache that was mild about 4 5 days ago. She said it was very mild. It would wax and wane. But it just would not go away. She could do everything she needed to do and it would not really interrupt but it was annoying. She came in today because she started vomiting today. The headache is a little bit worse but not markedly so. She does have a history of headaches that may be migraines. She has been seen here for them. She states she gets a headache about every 2 weeks. They will sometimes last several days but she does not normally get vomiting. She normally does get photophobia. She does have some photophobia with this. Her headaches are in all different areas. They are not in one spot of her head. This 1 is mostly left frontal. It is dull and aching. No fevers chills. No numbness tingling weakness. It was not sudden onset and is not the worst she is ever had. Patient is 20 weeks . She had hyperemesis gravidarum with this but really has not had much problems for weeks now. She also did quit caffeine but that was a cup several weeks ago also. She did just start Zoloft about 2 weeks ago. She thinks she has been on it before without problems but is not sure. No other changes that she can think of. She took some Tylenol which helped but did not take the headache away. [facility] Medical History Abnormal bruising Anxiety Back pain Cervical strain Chest pain Concussion without loss of consciousness COVID-19 Depression Dichorionic diamniotic twin Fatigue Former smoker Hyperemesis Infertility Knee pain Marijuana use, episodic Migraines Rh negative status during Shoulder pain Supervision of high risk , antepartum Vaginal bleeding during Home Medications famotidine 10 mg tablet (Pepcid AC) 10 mg PO DAILY PRN Stomach Upset 12/21/21 [History Last Taken Unknown] prenat.vits,justine,bto-biqu-mtkyg 1 tab PO DAILY 12/21/21 [History Last Taken 02/10/22] folic acid 1 mg tablet 1 mg PO DAILY 01/04/22 [History Last Taken 02/10/22] promethazine 12.5 mg tablet 12.5 mg PO Q6H PRN nausea and vomiting #90 tabs 01/04/22 [Rx Last Taken 02/11/22] ondansetron 4 mg disintegrating tablet 4 mg PO Q8H PRN PRN Nausea #60 tabs 01/14/22 [Rx Last Taken Unknown] famotidine 20 mg tablet (Pepcid) 20 mg PO BID #60 tabs 03/11/22 [Rx Last Taken Unknown] sertraline 50 mg tablet (Zoloft) 50 mg PO DAILY #30 tabs 03/11/22 [Rx Last Taken Unknown] Allergy/AdvReac Type Severity Reaction Status Date / Time dicyclomine [From Bentyl] Allergy migraine Verified 03/27/22 07:42 Penicillins Allergy Rash Verified 03/27/22 07:42 Surgical History H/O dilation and curettage Social History adopted: No household members: significant other and children number of children: 2 current occupational status: employed 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 ; Denies blurry vision, change in vision or diplopia ENT ENT ED: Denies rhinorrhea Cardiovascular Cardiovascular: Denies chest pain or palpitations Respiratory/Chest Respiratory/Chest: Denies cough or dyspnea Gastrointestinal Gastrointestinal: Reports nausea; Denies abdominal pain Genitourinary Genitourinary ED: Denies dysuria Musculoskeletal Musculoskeletal: Denies arthralgias or myalgias Integumentary Denies rash Neurologic Neurologic: Reports headache(s); Denies paresthesias or weakness Psychiatric Psychiatric: Reports anxiety Endocrine Endocrinology: Denies polydipsia or polyphagia Hematologic/Lymphatic Hematologic/Lymphatic: Denies easy bleeding or easy bruising Allergic/Immunologic Allergic/Immunologic ED: Denies mouth swelling, tongue swelling or urticaria EXAM Physical Exam Const Vital Signs: 03/27/22 07:38 Temperature 97.8 F Temperature Source Temporal Pulse Rate 81 Respiratory Rate 16 Blood Pressure 116/65 Blood Pressure Mean 82 Pulse Ox 96 Oxygen Delivery Method Room Air Positive well nourished and well developed Constitutional Narrative: Patient awake alert and appropriate. She does have some mild photophobia on exam. General Appearance ED: well developed and NAD; Negative for cyanotic or diaphoretic HEENT Reports normocephalic and moist mucous membranes HEENT Narrative: No sinus tenderness. No injection of the eyes. No notable tearing. atraumatic; Negative for trauma, tenderness or temporal artery tenderness Eyes Eyes Narrative: No injection. No tearing. Range of motion is normal. There is mild photophobia on exam only. Neck no lymphadenopathy Neck Narrative: No meningismus. No bruit. No pain with motion. Resp normal respiratory effort Cardio regular rate and regular rhythm GI non-tender GI Narrative: Gravid but not tender. Back/Spine no CVA tenderness Neuro oriented x3, CN's II-XII intact bilaterally and no sensory deficits noted Sensorium / Orientation: awake, alert, oriented to person, oriented to place and oriented to time; Negative for lethargic or stuporous Speech: speech normal Gait (Neuro): normal gait Sensory Exam: No sensory level loss detected Motor Exam: strength 5/5 throughout Psych mental status grossly normal Attitude: No agitated Mood & Affect: Negative for depressed or anxious MDM MDM MDM Narrative Medical decision making narrative: 08:45 patient's recheck. She is feeling better but the headache is not completely gone. There is about 400 cc of fluid in. I talk with her that I received a few years ago here. However, because of the I really do not want to use Toradol. She is comfortable with this plan. We had also already discussed CT scan. Although we can do this with the abdomen shielded, the headache is typical for her. Its not thunderclap. Its not the worst ever. There is no neurologic deficit and I do not think we need CT scan at this time. Patient was feeling better but still had a bit of a headache. She has had these before. We discussed CAT scan but both agree there is really not an indication. There is no indication of meningitis. Her nausea is completely gone. Her neurologic exam is normal. She is not really appropriate for Toradol. I do not think sumatriptan would be appropriate especially after 4 to 5 days of a headache its risk-benefit ratio is decreased. I did give her 1 dose of pain meds. She is now up walking around feels markedly better. Discharge Plan Triage Chief Complaint: Headache ED Provider: Diego Payan Dx/Rx/DC Orders Clinical Impression: Headache Instructions: ED Headache Unspecified Prescriptions: No Action folic acid 1 mg tablet 1 mg PO DAILY prenat.vits,justine,mem-mbth-iddtb Tablet 1 tab PO DAILY famotidine [Pepcid AC] 10 mg tablet 10 mg PO DAILY PRN (Reason: Stomach Upset) ondansetron 4 mg tablet,disintegrating 4 mg PO Q8H PRN PRN (Reason: Nausea) Qty: 60 3RF famotidine [Pepcid] 20 mg tablet 20 mg PO BID Qty: 60 4RF sertraline [Zoloft] 50 mg tablet 50 mg PO DAILY Qty: 30 12RF promethazine 12.5 mg tablet 12.5 mg PO Q6H PRN (Reason: nausea and vomiting) Qty: 90 4RF Primary Care Provider: Roger Cohen Referrals: Roger Cohen MD [Primary Care Provider] - 2 Days Disposition Disposition: Home, Self Care
[2022-03-27] MEDS: DiphenhydrAMINE 50 MG/ML Syringe IV (08:13)
[2022-03-27] MEDS: 0.9% Normal Saline 1,000 ML 1000 ML IV (08:13)
[2022-03-27] MEDS: Metoclopramide 10 MG/2 ML Vial IV (08:13)
[2022-03-27] MEDS: Morphine 4 MG/ML Syringe IV (10:15)
[2022-03-27 12:09] VITALS: BP 126/74; PULSE 72; RESP 15; O2SAT 98
== END 2022-03-27 12:10 | disposition home or self-care (01) ==
PROVIDERS: Emergency Provider Emergency Medicine; PCP Internal Medicine; Visit Provider Emergency Medicine
DX: O99.891 Other specified diseases and conditions complicating pregnancy (principal); O99.322 Drug use complicating pregnancy, second trimester; R51.9 Headache, unspecified; F12.10 Cannabis abuse, uncomplicated; Z86.16 Personal history of COVID-19; Z87.891 Personal history of nicotine dependence; Z3A.20 20 weeks gestation of pregnancy
CPT/HCPCS: 96361; 96374; 96375; 99284; J7030; A4216

== ENCOUNTER → 2022-05-21 | Outpatient (CLI) | payer MEDICAID, SELFPAY ==
[2022-05-21 11:21] LABS: Absolute Lymphocyte Count 1.34 X10^3/uL (0.83-4.51); Absolute Neutrophil Count 6.6 X10^3/uL (2.0-7.7); Basophil# 0.03 X10^3/uL; Basophil% 0.4 % (0-1); Eosinophil# 0.05 X10^3/uL; Eosinophils% 0.6 % (0-5); Hematocrit 34.1 % (37-47); Lymphocyte # 1.34 X10^3/ul (0.83-4.51); Lymphocyte % 15.8 % (19-41); Mean Corp Hgb Conc 32.3 g/dL (32-36); Mean Corpuscular Hgb 28.1 pg (27.0-32.0); Mean Corpuscular Volume 87.2 fL (81-99); Mean Platelet Vol. 10.3 fl (6.2-12.0); Monocyte# 0.42 X10^3/uL; Monocyte% 4.9 % (0-10); NRBC Flagged by Analyzer 0 % (0-5); Neutrophil # 6.61 X10^3/uL (2.7-7.7); Neutrophil % 77.8 % (47-70); Platelet Count 222 K/mm3 (150-450); RBC Distribution Width CV 13.3 % (11.6-14.6); RBC Distribution Width SD 41.6 fl (35.1-43.9); Red Blood Count 3.91 M/mm3 (4.2-5.4); White Blood Count 8.5 K/mm3 (4.4-11.0)
[2022-05-21 11:53] LABS: Glucose Challenge Gest 1H 50g 151 mg/dL (70-140)
== END | disposition home or self-care (01) ==
LOC: LAB 10:59
PROVIDERS: PCP Internal Medicine; Referring Provider Obstetrics & Gynecology; Visit Provider Obstetrics & Gynecology
DX: Z34.90 Encounter for supervision of normal pregnancy, unspecified, unspecified trimester (principal)
CPT/HCPCS: 36415; 82950; 85025; 86900; 86901

== ENCOUNTER → 2022-05-27 | Outpatient (CLI) | payer MEDICAID, SELFPAY ==
[2022-05-27 11:07] LABS: Glucose GTT-Gestation. Fasting 76 mg/dL (<105)
[2022-05-27 11:51] LABS: Glucose GTT-Gestational 1 Hr 133 mg/dL (<190)
[2022-05-27 13:10] LABS: Glucose GTT-Gestational 2 Hr 119 mg/dL (<165)
[2022-05-27 14:22] LABS: Glucose GTT-Gestational 3 Hr 108 L (<145)
== END | disposition home or self-care (01) ==
LOC: LAB 09:54
PROVIDERS: PCP Internal Medicine; Visit Provider Obstetrics & Gynecology
DX: Z13.1 Encounter for screening for diabetes mellitus (principal)
CPT/HCPCS: 36415; 82951; 82952

== ENCOUNTER 2022-06-18 12:10 | Outpatient (CLI) | payer MEDICAID, SELFPAY ==
[2022-06-18 12:26] VITALS: BMI 31.6
[2022-06-18] MEDS: Betamethasone/Betamethasone 30 MG/5 ML Vial 12 MG IM (12:59)
[2022-06-19 00:33] LABS: Group B Strep DNA By PCR Negative (Negative); Internal Control PASS; Probe Check PASS; Specimen Processing Control PASS
--- NOTE | 2022-06-21 18:29 | OB.TRI.NOTE ---
HPI - General General Date of Admission: 06/21/22 Date of Service: 06/21/22 Chief Complaint: swelling HPI Narrative LILLIAN OCHOA, is a 36 y/o Di/Di twin gestation who returns to L&D after discharge from [facility] earlier in the day. She was admitted for threatened PTL to [facility] and send home after she was given IV fluids and even an epidural. She made no cervical gear changer the course of her stay and was discharged. She returns today withe the complaint of swelling and headache. [facility] Medical History (Updated 07/06/22 @ 18:[address] Veronika Segovia, DO) Abnormal bruising Anxiety Anxiety Asthma Back pain Cervical strain Chest pain Concussion without loss of consciousness COVID-19 Depression Dichorionic diamniotic twin Fatigue Former smoker History of pre-term labor History of premature rupture of membranes (PPROM) Hyperemesis Infertility IUGR (intrauterine growth restriction) Knee pain Marijuana use, episodic Migraines Polyhydramnios Polyhydramnios affecting depression Rh negative status during Shoulder pain Supervision of high risk , antepartum Vaginal bleeding during Home Medications prenat.vits,justine,[id number] 1 tab PO DAILY Check with primary doctor 12/21/21 [History Last Taken 06/24/22 10:00] famotidine 20 mg tablet (Pepcid) 20 mg PO BID Check with primary doctor 06/18/22 [History Last Taken 06/24/22 10:00] sertraline 100 mg tablet (Zoloft) 150 mg PO DAILY Check with primary doctor 06/18/22 [History Last Taken 06/24/22 10:00] naproxen 500 mg tablet 500 mg PO BID PRN PRN Pain #30 tabs 06/24/22 [Rx Last Taken Unknown] oxycodone-acetaminophen 5 mg-325 mg tablet (Percocet) 1 tab PO Q6H PRN pain 7 days #20 tabs 06/24/22 [Rx Last Taken Unknown] Allergy/AdvReac Type Severity Reaction Status Date / Time dicyclomine [From Bentyl] Allergy migraine Verified 06/24/22 16:19 Penicillins Allergy Rash Verified 06/24/22 16:19 Surgical History H/O dilation and curettage Social History adopted: No household members: significant other and children number of children: 2 current occupational status: employed 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 Date Name GA/Weeks Outcome Route Bth Weight Infant Gen Labor Lgth Anesthesia Del Locat Provider FOB Unknown 2018 SAB, D&C SM 08/14/09 Toby Nuñez 34 live - 4lbs 11oz Male 2 hours epidural [place] [facility] 02/14/16 Emily 38 live - full term 7lbs 13oz Female 26 hours epidural Jeffery Fiore 06/24/22 Amaury 33 live - Male spinal [facility] Maria Mike 06/24/22 Surendra 33 live - Male spinal [facility] Maria Mike Delivery Date: 08/14/09 Last Updated by: Alison Noel Pre-term labor. Delivery Date: 02/14/16 Last Updated by: Alison Noel No issues during or delivery. Delivery Date: 06/24/22 Last Updated by: Charis Desai see problem list for complications, and ptl pprom 33 [facility]. Delivery Date: 06/24/22 Last Updated by: Charis Desai See problem list for complications, and ptl pprom 33 [facility]. ROS Constitutional Constitutional: Reports systems reviewed and no addt'l complaints, except as documented Gastrointestinal Gastrointestinal: Denies bloating, constipation, cramping, diarrhea, nausea or vomiting Genitourinary Genitourinary: Reports other Details: Denies vaginal odor, vaginal bleeding, or vaginal discharge ; Denies difficulty urinating or flank pain Physical Exam Const alert, oriented x3 and no apparent distress HEENT normocephalic Resp normal respiratory effort and normal air movement no CVA tenderness Extremity normal to inspection General Extremity: edema bilateral (trace ) NST FHR Rate Baby A Baseline: 140 Variability:: Moderate Accelerations:: 15 x 15 Decelerations:: None NST Reactive:: Yes FHR Category:: Category I FHR Rate Baby B Baseline: 145 Variability:: Moderate Accelerations:: 15 x 15 Decelerations:: None NST Reactive:: Yes FHR Category:: Category I Assessment & Plan (1) Lower extremity edema: PLAN: Plan swelling after hospital stay at [place] likely due to IV fluids given to stop PTL. There are no other signs or symptoms of labor or pre-eclampsia at this time. Charges/Coding Multi Select Codes Visit Charges Office Visit/Consults: 27137 OV L3 Est Urinary/Genital Urinary/Genital CPT Codes: 99539-15 non-stress test Interp
--- NOTE | 2022-07-06 18:29 | OB.TRI.HP_ITS ---
HPI - General General Date of Admission: 06/21/22 Date of Service: 06/21/22 Chief Complaint: swelling HPI Narrative LILLIAN OCHOA, is a 36 y/o Di/Di twin gestation who returns to L&D after discharge from [facility] earlier in the day. She was admitted for threatened PTL to [facility] and send home after she was given IV fluids and even an epidural. 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 She returns today withe the complaint of swelling and headache. [facility] Medical History (Updated 07/06/22 @ 18:[address] Veronika Segovia, DO) Abnormal bruising Anxiety Anxiety Asthma Back pain Cervical strain Chest pain Concussion without loss of consciousness COVID-19 Depression Dichorionic diamniotic twin Fatigue Former smoker History of pre-term labor History of premature rupture of membranes (PPROM) Hyperemesis Infertility IUGR (intrauterine growth restriction) Knee pain Marijuana use, episodic Migraines Polyhydramnios Polyhydramnios affecting depression Rh negative status during Shoulder pain Supervision of high risk , antepartum Vaginal bleeding during Home Medications prenat.vits,justine,[id number] 1 tab PO DAILY Check with primary doctor 12/21/21 [History Last Taken 06/24/22 10:00] famotidine 20 mg tablet (Pepcid) 20 mg PO BID Check with primary doctor 06/18/22 [History Last Taken 06/24/22 10:00] sertraline 100 mg tablet (Zoloft) 150 mg PO DAILY Check with primary doctor 06/18/22 [History Last Taken 06/24/22 10:00] naproxen 500 mg tablet 500 mg PO BID PRN PRN Pain #30 tabs 06/24/22 [Rx Last Taken Unknown] oxycodone-acetaminophen 5 mg-325 mg tablet (Percocet) 1 tab PO Q6H PRN pain 7 days #20 tabs 06/24/22 [Rx Last Taken Unknown] Allergy/AdvReac Type Severity Reaction Status Date / Time dicyclomine [From Bentyl] Allergy migraine Verified 06/24/22 16:19 Penicillins Allergy Rash Verified 06/24/22 16:19 Surgical History H/O dilation and curettage Social History adopted: No household members: significant other and children number of children: 2 current occupational status: employed 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 Date Name GA/Weeks Outcome Route Bth Weight Infant Gen Labor Lgth Anesthesia Del Locat Provider FOB Unknown 2018 SAB, D&C SM 08/14/09 Toby Nuñez 34 live - 4lbs 11oz Mal e 2 hours epidural [facility] 02/14/16 Emily 38 live - full term 7lbs 13oz Female 26 hours epidural Jeffery Fiore 06/24/22 Amaury 33 live - Male spin al [facility] Maria Mike 06/24/22 Surendra 33 live - Male spin vinod [facility] Maria Mike Delivery Date: 08/14/09 Last Updated by: Alison Noel Pre-term labor. Delivery Date: 02/14/16 Last Updated by: Alison Noel No issues during or delivery. Delivery Date: 06/24/22 Last Updated by: Charis Desai see problem list for complications[facility]: 06/24[facility]22 Last Updated by: Charis Desai See problem list for complications, and ptl pprom 33 [facility]. ROS Constitutional Constitutional: Reports systems reviewed and no addt'l complaints, except as documented Gastrointestinal Gastrointestinal: Denies bloating, constipation, cramping, diarrhea, nausea or vomiting Genitourinary Genitourinary: Reports other Details: Denies vaginal odor, vaginal bleeding, or vaginal discharge ; Denies difficulty urinating or flank pain Physical Exam Const alert, oriented x3 and no apparent distress HEENT normocephalic Resp normal respiratory effort and normal air movement no CVA tenderness Extremity normal to inspection General Extremity: edema bilateral (trace ) NST FHR Rate Baby A Baseline: 140 Variability:: Moderate Accelerations:: 15 x 15 Decelerations:: None NST Reactive:: Yes FHR Category:: Category I FHR Rate Baby B Baseline: 145 Variability:: Moderate Accelerations:: 15 x 15 Decelerations:: None NST Reactive:: Yes FHR Category:: Category I Assessment & Plan (1) Lower extremity edema: PLAN: Plan swelling after hospital stay at [place] likely due to IV fluids given to stop PTL. There are no other signs or symptoms of labor or pre-eclampsia at this time. Charges/Coding Multi Select Codes Visit Charges Office Visit/Consults: 21882 OV L3 Est Urinary/Genital Urinary/Genital CPT Codes: 20947-08 non-stress test Interp
== END 2022-06-18 13:01 | disposition home or self-care (01) ==
LOC: WPOUT 12:22 → WP 12:23
PROVIDERS: PCP Internal Medicine; Referring Provider Obstetrics & Gynecology; Visit Provider Obstetrics & Gynecology
DX: O99.891 Other specified diseases and conditions complicating pregnancy (principal); O30.049 Twin pregnancy, dichorionic/diamniotic, unspecified trimester; Z3A.00 Weeks of gestation of pregnancy not specified; O99.340 Other mental disorders complicating pregnancy, unspecified trimester; F41.9 Anxiety disorder, unspecified; O99.519 Diseases of the respiratory system complicating pregnancy, unspecified trimester; J45.909 Unspecified asthma, uncomplicated; Z86.16 Personal history of COVID-19; F32.A Depression, unspecified; Z87.891 Personal history of nicotine dependence; Z79.899 Other long term (current) drug therapy; R60.0 Localized edema
CPT/HCPCS: G0378; 87653; 96372; 87081; 99218; J0702

== ENCOUNTER 2022-06-18 20:45 | Outpatient (CLI) | payer MEDICAID, SELFPAY ==
[2022-06-18] VITALS (7 sets, daily range): BP systolic 111–117; BP diastolic 58–76; PULSE 84–115; O2SAT 92–97; BMI 31.8
[2022-06-18] MEDS: Indomethacin 25 MG Capsule 50 MG PO (21:59)
[2022-06-18] MEDS: Acetaminophen 500 MG Tablet 1000 MG PO (22:12)
[2022-06-18] MEDS: Lactated Ringers 500 ML 999 ML IV (22:14)
[2022-06-18] MEDS: Lactated Ringers 1,000 ML 100 ML IV (23:00)
[2022-06-19] VITALS (7 sets, daily range): BP systolic 104–111; BP diastolic 51–62; PULSE 77–102; TEMP 36.2–36.9; O2SAT 94–98
[2022-06-19] MEDS: NIFEdipine 10 MG Capsule PO (00:06)
[2022-06-19] MEDS: Morphine 4 MG/ML Syringe IV ×4 (00:07→09:47)
[2022-06-19 00:15] LABS: Absolute Lymphocyte Count 0.94 X10^3/uL (0.83-4.51); Absolute Neutrophil Count 12.7 X10^3/uL (2.0-7.7); Basophil# 0.03 X10^3/uL; Basophil% 0.2 % (0-1); Hematocrit 35.5 % (37-47); Hemoglobin 10.7 g/dL (12.0-15.0); Lymphocyte # 0.94 X10^3/ul (0.83-4.51); Lymphocyte % 6.7 % (19-41); Mean Corp Hgb Conc 30.1 g/dL (32-36); Mean Corpuscular Hgb 27.4 pg (27.0-32.0); Mean Platelet Vol. 11.9 fl (6.2-12.0); Monocyte# 0.19 X10^3/uL; Monocyte% 1.4 % (0-10); NRBC Flagged by Analyzer 0 % (0-5); Neutrophil # 12.72 X10^3/uL (2.7-7.7); POSITIVE COUNT YES; Platelet Count 214 K/mm3 (150-450); RBC Distribution Width CV 13.6 % (11.6-14.6); RBC Distribution Width SD 45.2 fl (35.1-43.9)
[2022-06-19 00:17] LABS: Differential Indicated SCAN CRITERIA MET
[2022-06-19 00:38] LABS: Differential Comment SCANNED; Platelet Estimate ADEQUATE (ADEQ)
[2022-06-19 00:57] LABS: Color, Urine Yellow (Yellow); Glucose, Dipstick Normal (Normal); Ketone-Dipstick 5 mg/dl (Negative); Leukocyte Esterase-Dipstick Negative /ul (Negative); Nitrite-Dipstick Negative (Negative); Occult Blood-Urine Negative /ul (Negative); Protein-Dipstick 15 mg/dl (Negative); Urine Bilirubin Dipstick Negative (Negative); Urine Clarity Clear (Clear); Urine Urobilinogen Normal (Normal); Urine pH 6.5 (5.0 - 8.0)
[2022-06-19 02:01] LABS: Chlamydia Trachomatis by PCR Negative (Negative); Neisserai gonorrhoeae by PCR Negative (Negative); Probe Check PASS; Sample Adequacy Control PASS; Specimen Processing Control PASS
[2022-06-19] MEDS: Lactated Ringers 200 ML 999 ML IV (02:39)
[2022-06-19] MEDS: Lactated Ringers 1,000 ML 125 ML IV (02:53)
--- NOTE | 2022-06-19 08:01 | HP.PCM.OB_ITS ---
HPI - General General Date of Admission: 06/18/22 HPI Narrative LILLIAN OCHOA, is a 36 y/o @ 32 weeks 2 days twin gestation, who presents to L&D with contractions. She was seen in the office earlier in the day and was found to be internally closed. She denies lof ,vaginal bleeding, or dec fm. she is tearful with pain. Maternal Data Information CALI Calculator Estimated Delivery Date Method Current WG Current Estimate 08/12/22 LMP (Certain) 32w 2d Other Estimates 08/12/22 Ultrasound #1 32w 2d # 2 PFSH PFSH Medical History (Updated 06/19/22 @ 08:[address] Veronika Segovia, DO) Abnormal bruising Anxiety Anxiety Asthma Back pain Cervical strain Chest pain Concussion without loss of consciousness COVID-19 Depression Dichorionic diamniotic twin Fatigue Former smoker History of pre-term labor Hyperemesis Infertility IUGR (intrauterine growth restriction) Knee pain Marijuana use, episodic Migraines Polyhydramnios Polyhydramnios affecting Rh negative status during Shoulder pain Supervision of high risk , antepartum Vaginal bleeding during Home Medications prenat.vits,justine,[id number] 1 tab PO DAILY Check with primary doctor 12/21/21 [History Last Taken 06/18/22] folic acid 1 mg tablet 1 mg PO DAILY Check with primary doctor 01/04/22 [History Last Taken 06/18/22] famotidine 20 mg tablet (Pepcid) 20 mg PO BID Check with primary doctor 06/18/22 [History Last Taken Unknown] sertraline 100 mg tablet (Zoloft) 150 mg PO DAILY Check with primary doctor 06/18/22 [History Last Taken 06/18/22] Allergy/AdvReac Type Severity Reaction Status Date / Time dicyclomine [From Bentyl] Allergy migraine Verified 06/18/22 21:49 Penicillins Allergy Rash Verified 06/18/22 21:49 Surgical History H/O dilation and curettage Social History adopted: No household members: significant other and children number of children: 2 current occupational status: employed 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 Date Name GA/Weeks Outcome Route Bth Weight [facility] D&[facility] SM 08/14/09 Toby Nuñez 36 live - 4lbs 11oz Mal e 2 hours epidural [facility] 02/14/16 Emily 38 live - full term 7lbs 13oz Female 26 hours epidural Jeffery Fiore Delivery Date: 08/14/09 Last Updated by: Alison Noel Pre-term labor. Delivery Date: 02/14/16 Last Updated by: Alison Noel No issues during or delivery. Visit Details Expected Delivery Route/Plan Labor Preferences- CB/BF classes: [] labor support person: [] labor intervention preferences: [] pain management options preferred: [] cut cord/dad catch: [] : [] PP control planned: [] discussed possible routes of delivery and associated risks: [] special requests: [] Plans Covid status: discussed Flu vaccine: discussed Tdap vaccine: [] Rhogam: [] LARC form signed: [] Problem list reviewed and updated with the most current plan of care details and appropriate orders placed. Relevant counseling for the gestational age provided. Continue routine care and follow up unless otherwise noted in visit notes/problem list details OB Flowsheet Initial Weight: 155 lb Date -?-?-?-?-?-?-?-?-?-?-?-?- EGA Weight BP Urine Prot -?-?-?-?-?-?-?-?-?-?-?-?- Glucose FHR FuHt Pres Dilation -?-?-?-?-?-?-?-?-?-?-?-?- Effaced St Visit Note 01/04/22 -?-?-?-?-?-?-?-?-?-?-?-?- 8w 4d 149 lb (-6 lb) 112/82 -?-?-?-?-?-?-?-?-?-?-?-?- A 160 -?-?-?-?-?-?-?-?-?-?-?-?- B 160 A -?-?-?-?-?-?-?-?-?-?-?-?- B -?-?-?-?-?-?-?-?-?-?-?-?- A -?-?-?-?-?-?-?-?-?-?-?-?- B A SM- failed zofra n pepcid and phenergan, meclizine, got better with IVF phenergan reglan and zofran, will get optum home consult for reglan pump and ivfs at home. -?-?-?-?-?-?-?-?-?-?-?-?- B 01/14/22 -?-?-?-?-?-?-?-?-?-?-?-?- 10w 0d 159 lb 6 oz (+4 lb 6 oz) Negative -?-?-?-?-?-?-?-?-?-?-?-?- Negative A 170 -?-?-?-?-?-?-?-?-?-?-?-?- B 166 A -?-?-?-?-?-?-?-?-?-?-?-?- B -?-?-?-?-?-?-?-?-?-?-?-?- A -?-?-?-?-?-?-?-?-?-?-?-?- B A SM- nausea impro ving, optum following up at home getting nipt today -?-?-?-?-?-?-?-?-?-?-?-?- B 01/27/22 -?-?-?-?-?-?-?-?-?-?-?-?- 11w 6d 162 lb 8 oz (+7 lb 8 oz) 138/80 Negative -?-?-?-?-?-?-?-?-?-?-?-?- Negative A 150 -?-?-?-?-?-?-?-?-?-?-?-?- B 145 A -?-?-?-?-?-?-?-?-?-?-?-?- B -?-?-?--?-?-?-?-?-?-?-?-?- A -?-?-?-?-?-?-?-?-?-?-?-?- B A SM- co pink whil e wiping -?-?-?-?-?-?-?-?-?-?-?-?- B 02/10/22 -?-?-?-?-?-?-?-?-?-?-?-?- 13w 6d 163 lb (+8 lb) 114/82 Negative -?-?-?-?-?-?-?-?-?-?-?-?- Negative A 150 -?-?-?-?-?-?-?-?-?-?-?-?- B 163 A -?-?-?-?-?-?-?-?--?-?-?-?- B -?-?-?-?-?-?-?-?-?-?-?-?- A -?-?-?-?-?-?-?-?-?-?-?-?- B A JV- pt has cellu litis on her abdomen secondary to reglan pump. starting abx. pt to call if redness extends past the line I morales. She is having some agitation with reglan. will change zofran. -?-?-?-?-?-?-?-?-?-?-?-?- B 02/11/22 -?-?-?-?-?-?-?-?-?-?-?-?- 14w 1d 163 lb 2.273 oz (+8 lb 2.273 oz) 162 lb 7.691 oz (+7 lb 7.691 oz) 119/57 112/59 113/50 100/47 110/54 110/54 108/49 105/46 93/49 106/59 Negative mg/dl (Rosana riddle) -?-?-?-?-?-?-?-?-?-?-?-?- A -?-?-?-?-?-?-?-?-?-?-?-?- B A -?-?-?-?-?-?-?-?-?-?-?-?- B -?-?-?-?-?-?-?-?-?-?-?--?- A -?-?-?-?-?-?-?-?-?-?-?-?- B A -?-?-?-?-?-?-?-?-?-?-?-?- B 03/11/22 -?-?-?-?-?-?-?-?-?-?-?-?- 18w 0d 165 lb 6 oz (+10 lb 6 oz) 130/80 Negative -?-?-?-?-?-?-?-?-?-?-?-?- Negative A 133 -?-?-?-?-?-?-?-?-?-?-?-?- B 141 A -?-?-?-?-?-?-?-?-?-?-?-?- B -?-?-?-?-?-?-?-?-?-?-?-?- A -?-?-?-?-?-?-?-?-?-?-?-?- B A JV- grwoth scan scheduled, starting zoloft and pepcid bid -?-?-?-?-?-?-?-?-?-?-?-?- B 04/09/22 -?-?-?-?-?-?-?-?-?-?-?-?- 22w 1d 166 lb 4 oz (+11 lb 4 oz) 104/68 Negative -?-?-?-?-?-?-?-?-?-?-?-?- Negative A 140 -?--?-?-?-?-?-?-?-?-?-?-?- B 150 A -?-?-?-?-?-?-?-?-?-?-?-?- B -?-?-?-?-?-?-?-?-?-?-?-?- A -?-?-?-?-?-?-?-?-?-?-?-?- B A SM- no vb lof go od fm irregular ctx, get MFM consult report to review if progesterone indicated -?-?-?-?-?-?-?-?-?-?-?-?- B 05/07/22 -?-?-?-?-?-?-?-?-?-?-?-?- 26w 1d 171 lb (+16 lb) 110/66 Negative -?-?-?-?-?-?-?-?-?-?-?-?- Negative A 138 -?-?-?-?-?-?-?-?-?-?-?-?- B 135 A -?-?-?-?-?-?-?-?-?-?-?-?- B -?-?-?-?-?-?-?-?-?-?-?-?- A -?-?-?-?-?-?-?-?-?-?-?-?- B A JV-growth scan r eviewed. no complaints. f/u with mfm end of month gct ordered -?-?-?-?-?-?-?-?-?-?-?-?- B 05/21/22 -?-?-?-?-?-?-?-?-?-?-?-?- 28w 1d 172 lb (+17 lb) 126/70 Trace -?-?-?-?-?-?-?-?-?-?-?-?- Negative A 170 -?-?-?-?-?-?-?-?-?-?-?-?- B 140 A -?-?-?-?-?-?-?-?-?-?-?-?- B -?-?-?-?-?-?-?-?-?-?-?-?- A -?-?-?-?-?-?-?-?-?-?-?-?- B A SM- no vb lof go od fm no regular ctx -?-?-?-?-?-?-?-?-?-?-?-?- B 06/18/22 -?-?-?-?-?-?-?-?-?-?-?-?- 32w 1d 179 lb 2 oz (+24 lb 2 oz) 112/70 Negative -?-?-?-?-?-?-?-?-?-?-?-?- Negative A 140 -?-?-?-?-?-?-?-?-?-?-?-?- B 144 A Breech -?-?-?-?-?-?-?-?-?-?-?-?- B Cephalic -?-?-?-?-?-?-?-?-?-?-?-?- A -?-?-?-?-?-?-?-?-?-?-?-?- B A JV- bpp's 05/10 to day. IUGR of baby a and poly baby b persists. sending to L&D for steroids. -?-?-?-?-?-?-?-?-?-?-?-?- B ROS Constitutional Constitutional: Denies change in weight, fatigue, fever(s), headache(s), poor appetite or weakness Eyes Eyes: Denies blurry vision, change in vision, seeing flashes or spots in vision ENT HEENT: Denies dizziness, headache(s), loss taste/smell or sore throat Cardiovascular Cardiovascular: Denies chest pain, dizziness, dyspnea, irregular heart rhythm, leg edema, palpitations, rapid heart rate or vomiting Respiratory/Chest Respiratory/Chest: Denies chest tightness, cough, dyspnea or breast pain Gastrointestinal Gastrointestinal: Denies abdominal pain, anorexia, constipation, cramping, diarrhea, hemorrhoids, vomiting or weight changes Genitourinary Genitourinary: Denies dysuria, flank pain, genital lesions, genital pain, urinary frequency or urinary urgency Musculoskeletal Musculoskeletal: Denies back pain, difficulty walking, joint pain, limited range of motion, muscle cramps or numbness Integumentary Integumentary: Denies lesions or unusual bruising Neurologic Neurologic: Denies abnormal movements, abnormal speech, dizziness, numbness, seizure-like activity or syncope Psychiatric Psychiatric: Denies anxiety, behavioral changes, change in appetite, change in libido, cognitive impairment, confusion, depression, difficulty concentrating, hallucinations or suicidal thoughts Endocrine Endocrinology: Denies excessive sweating, polydipsia or polyuria Hematologic/Lymphatic Hematologic/Lymphatic: Denies easy bleeding, easy bruising or lymphadenopathy Allergic/Immunologic Allergic/Immunologic: Denies itchy eyes, lip swelling, seasonal rhinorrhea, rhinitis, throat swelling, tongue swelling, eczemia, wheezing or asthma Vital Signs Vital Signs Vital Signs: 06/18/22 21:12 06/18/22 21:12 06/18/22 21:14 Temperature Temperature Source Pulse Rate 98 101 H Blood Pressure BP Systolic BP Diastolic Pulse Ox 95 06/18/22 21:14 06/18/22 21:15 06/18/22 21:15 Temperature Temperature Source Pulse Rate 95 Blood Pressure 117/76 BP Systolic 117 BP Diastolic 76 Pulse Ox 92 06/18/22 21:17 06/18/22 21:17 06/18/22 21:19 Temperature Temperature Source Pulse Rate 98 95 Blood Pressure BP Systolic BP Diastolic Pulse Ox 95 06/18/22 21:19 06/18/22 21:22 06/18/22 21:22 Temperature Temperature Source Pulse Rate 115 H Blood Pressure BP Systolic BP Diastolic Pulse Ox 94 97 06/18/22 23:59 06/18/22 23:59 06/19/22 00:00 Temperature Temperature Source Oral Pulse Rate 84 Blood Pressure 111/58 L BP Systolic 111 BP Diastolic 58 Pulse Ox 06/19/22 00:00 06/19/22 00:57 06/19/22 00:57 Temperature 97.5 F L Temperature Source Pulse Rate 77 Blood Pressure BP Systolic BP Diastolic Pulse Ox 98 06/19/22 02:13 06/19/22 02:13 06/19/22 02:19 Temperature Temperature Source Pulse Rate 89 102 H Blood Pressure BP Systolic BP Diastolic Pulse Ox 94 06/19/22 02:19 06/19/22 02:51 06/19/22 02:51 Temperature Temperature Source Pulse Rate 77 Blood Pressure 104/51 L BP Systolic 104 BP Diastolic 51 Pulse Ox 96 06/19/22 07:30 06/19/22 07:30 06/19/22 07:30 Temperature Temperature Source Temporal Pulse Rate 96 Blood Pressure 110/62 BP Systolic 110 BP Diastolic 62 Pulse Ox 06/19/22 07:30 Temperature 97.2 F L Temperature Source Pulse Rate Blood Pressure BP Systolic BP Diastolic Pulse Ox Weight Weight: 180 lb Body Mass Index (BMI) 31.8 Physical Exam Const alert, oriented x3, no apparent distress and healthy appearing General Appearance: cooperative; Negative for anxious HEENT normocephalic Face and Sinus: normal facial exam Eyes EOMs intact bilaterally and no scleral icterus General Eye: normal appearance of both eyes Neck full ROM and supple Lymph Lymphatic: no lymphadenopathy noted Chest Chest: abnormal inspection of the chest Resp normal respiratory effort Effort and Inspection: able to speak in complete sentences Cardio regular rate GI soft to palpation and non-tender Inspection: gravid Palpation: soft; Negative for tender external exam normal Amniotic Fluid: other cx internally closed, externally 1 cm/thick/high Back/Spine no CVA tenderness Extremity normal to inspection, full ROM and no clubbing, cyanosis or edema General Extremity: Negative for calf tenderness or edema Skin Lesions: no lesions Rashes: no rashes Psych mental status grossly normal Labs Labs Labs: Blood Type A NEGATIVE Antibody Screen POSITIVE H Hct 35.5 % (37-47) L Hgb 10.7 g/dL (12.0-15.0) L Obstetrics US Syphilis Total Ab Non-reactive Rubella IgG Antibody Reactive (Nonreactive) Hep Bs Antigen Non-Reactive (Nonreactive) Chlamydia DNA (FRANCESCO) Negative (Negative) Neisseria gonorrhoeae DNA (FRANCESCO) Negative (Negative) HIV 1&2 Antibody Non-Reactive (Nonreactive) Glucose 1 Hr 50 gm 151 mg/dL (70-140) H Group B Strep DNA Negative (Negative) Assessment & Plan (1) Threatened labor: PLAN: s/p steroids today at 12:30, admit for observation indocin 50 mg now tylenol, fluids, observation recheck cervix in 2 hours or sooner as needed gbs, gc collected, type and screen baby a is vtx, baby b is transverse/breech and variable position. - if is in labor will need section. peds updated (2) : QUALIFIERS: Weeks of gestation: 32 weeks Qualified Code(s): Z3A.32 - 32 weeks gestation of COMMENT: anatomy nl, NIPT low risk, OB LM US nl 04/13 (3) Anxiety: COMMENT: zoloft 50 mg started 03/11/22 (4) History of tetanus, diphtheria, and acellular pertussis booster vaccination (Tdap): COMMENT: 05/21/22 (5) Abnormal glucose level: COMMENT: passed 3 hr GTT (6) Polyhydramnios affecting : COMMENT: twin B (7) IUGR (intrauterine growth restriction): COMMENT: twin A, growth US every 2 wks steroids 06/18 & 06/19 (8) Supervision of high risk , antepartum: COMMENT: PRR CALI 08/12/22 fraternal boys PC:Emily Nuñez. Fiance:Rashid (9) Rh negative status during : COMMENT: rhogam at 28 weeks and PRN, rhogam 05/21/22 (10) Marijuana use, episodic: COMMENT: Positive at NOB Random tox screens encouarged cessation (11) Depression: COMMENT: Lexapro. encouraged counseling
[2022-06-19] MEDS: Indomethacin 25 MG Capsule PO (08:16)
[2022-06-19] MEDS: cycloBENZAPRine HCl 10 MG Tablet PO (08:17)
[2022-06-19] MEDS: Betamethasone/Betamethasone 30 MG/5 ML Vial 12 MG IM (11:25)
--- NOTE | 2022-06-20 10:02 | PN_ITS ---
Progress Note late entry from 06/19/22: pt is laying in bed and tearful with continued painful contractions. She states that the morphine helped for a little while last night but contractions came back immediately after the medication wore off. Physical Exam Const alert, oriented x3, no apparent distress and healthy appearing General Appearance: cooperative HEENT normocephalic Face and Sinus: normal facial exam Resp normal respiratory effort Effort and Inspection: able to speak in complete sentences Cardio regular rate GI soft to palpation and non-tender Inspection: gravid Palpation: soft; Negative for tender Amniotic Fluid: other cx unchanged. still closed internally with 1 cm dilated externally Back/Spine no CVA tenderness Extremity normal to inspection, full ROM and no clubbing, cyanosis or edema General Extremity: Negative for calf tenderness or edema Skin Lesions: no lesions Rashes: no rashes Psych mental status grossly normal Assessment & Plan Assessment/Plan (1) Threatened labor: (2) : QUALIFIERS: Weeks of gestation: 32 weeks Qualified Code(s): Z3A.32 - 32 weeks gestation of (3) Anxiety: (4) History of tetanus, diphtheria, and acellular pertussis booster vaccination (Tdap): (5) Abnormal glucose level: (6) Polyhydramnios affecting : (7) IUGR (intrauterine growth restriction): (8) Supervision of high risk , antepartum: (9) Rh negative status during : (10) Marijuana use, episodic: (11) Depression: PLAN: Plan threatened labor after discussion with mfm the decision was made to transfer to [place] for threatened labor. pt agrees with plan likely will not get second dose of celestone before she is transported. last dose was 12:30 pm on 06/18/22 Multi Select Codes Visit Charges Visit Charges: 96940 Subs Hosp L3
== END 2022-06-19 11:42 | disposition home or self-care (01) ==
LOC: WPOUT 20:48 → WP 20:50
PROVIDERS: PCP Internal Medicine; Visit Provider Obstetrics & Gynecology
DX: O36.5930 Maternal care for other known or suspected poor fetal growth, third trimester, not applicable or unspecified (principal); O99.810 Abnormal glucose complicating pregnancy; O99.323 Drug use complicating pregnancy, third trimester; F12.90 Cannabis use, unspecified, uncomplicated; F41.9 Anxiety disorder, unspecified; Z87.891 Personal history of nicotine dependence; Z3A.32 32 weeks gestation of pregnancy; O99.343 Other mental disorders complicating pregnancy, third trimester; F32.A Depression, unspecified; O40.3XX0 Polyhydramnios, third trimester, not applicable or unspecified; Z86.16 Personal history of COVID-19; O30.093 Twin pregnancy, unable to determine number of placenta and number of amniotic sacs, third trimester
CPT/HCPCS: 96374; 96361 ×4; 59025; 59050; 81002; 85025; 86850; 86870; 86900; 86901; 87081; 87086; 87426; 87491; 87591; 87653; 96372; 99218; J7120; G0378; J0702

== ENCOUNTER 2022-06-20 20:30 | Outpatient (CLI) | payer MEDICAID, SELFPAY ==
[2022-06-20 20:43] VITALS: BMI 33.5
[2022-06-20 20:56] VITALS: BP 105/55; PULSE 90; TEMP 37.6; O2SAT 96
[2022-06-20 21:12] VITALS: PULSE 97; O2SAT 96
[2022-06-20 21:17] VITALS: PULSE 99; O2SAT 96
[2022-06-20] MEDS: Furosemide 20 MG Tablet PO (21:36)
[2022-06-20] MEDS: Acetaminophen/Butalbital/Caffe 1 Tablet PO (21:36)
--- NOTE | 2022-06-21 16:45 | OB.TRI.HP_ITS ---
HPI - General General Date of Admission: 06/20/22 HPI Narrative pt is now hosptial day #2 and still not feeling much better with contractions. I have discussed with her that I have consulted MFM at [place] and the recommendations are to transfer due to IUGR of baby A and polyp baby B. Maternal Data Information CALI Calculator Estimated Delivery Date Method Current WG Current Estimate 08/12/22 LMP (Certain) 33w 1d Other Estimates 08/12/22 Ultrasound #1 33w 1d # 2 PFSH PFS Medical History (Updated 06/25/22 @ 16:[address] Veronika Segovia, DO) Abnormal bruising Anxiety Anxiety Asthma Back pain Cervical strain Chest pain Concussion without loss of consciousness COVID-19 Depression Dichorionic diamniotic twin Fatigue Former smoker History of pre-term labor History of premature rupture of membranes (PPROM) Hyperemesis Infertility IUGR (intrauterine growth restriction) Knee pain Marijuana use, episodic Migraines Polyhydramnios Polyhydramnios affecting depression Rh negative status during Shoulder pain Supervision of high risk , antepartum Vaginal bleeding during Home Medications prenat.vits,justine,[id number] 1 tab PO DAILY Check with primary doctor 12/21/21 [History Last Taken 06/24/22 10:00] famotidine 20 mg tablet (Pepcid) 20 mg PO BID Check with primary doctor 06/18/22 [History Last Taken 06/24/22 10:00] sertraline 100 mg tablet (Zoloft) 150 mg PO DAILY Check with primary doctor 06/18/22 [History Last Taken 06/24/22 10:00] naproxen 500 mg tablet 500 mg PO BID PRN PRN Pain #30 tabs 06/24/22 [Rx Last Taken Unknown] oxycodone-acetaminophen 5 mg-325 mg tablet (Percocet) 1 tab PO Q6H PRN pain 7 days #20 tabs 06/24/22 [Rx Last Taken Unknown] Allergy/AdvReac Type Severity Reaction Status Date / Time dicyclomine [From Bentyl] Allergy migraine Verified 06/24/22 16:19 Penicillins Allergy Rash Verified 06/24/22 16:19 Surgical History H/O dilation and curettage Social History adopted: No household members: significant other and children number of children: 2 current occupational status: employed 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 Date Name GA/Weeks Outcome Route Bth Weight Infant Gen Labor Lgth Anesthesia Del Locatn Provider FOB Unknown 2018 SAB, D&C SM 08/14/09 Toby Nuñez 34 live - 4lbs 11oz Mal e 2 hours epidural [place] [facility] 02/14/16 Emily 38 live - full term 7lbs 13oz Female 26 hours epidural Jeffery Romerorijosette Delivery Date: 08/14/09 Last Updated by: Alison Noel Pre-term labor. Delivery Date: 02/14/16 Last Updated by: Alison Noel No issues during or delivery. Visit Details Expected Delivery Route/Plan Labor Preferences- CB/BF classes: [] labor support person: [] labor intervention preferences: [] pain management options preferred: [] cut cord/dad catch: [] : [] PP control planned: [] discussed possible routes of delivery and associated risks: [] special requests: [] Plans Covid status: discussed Flu vaccine: discussed Tdap vaccine: [] Rhogam: [] LARC form signed: [] Problem list reviewed and updated with the most current plan of care details and appropriate orders placed. Relevant counseling for the gestational age provided. Continue routine care and follow up unless otherwise noted in visit notes/problem list details OB Flowsheet Initial Weight: 155 lb Date -?-?-?-?-?-?-?-?-?-?-?-?- EGA Weight BP Urine Prot -?-?-?-?-?-?-?-?-?-?-?-?- Glucose FHR FuHt Pres Dilation -?-?-?-?-?-?-?-?-?-?-?-?- Effaced St Visit Note 01/04/22 -?-?-?-?-?-?-?-?-?-?-?-?- 8w 4d 149 lb (-6 lb) 112/82 -?-?-?-?-?-?-?-?-?-?-?-?- A 160 -?-?-?-?-?-?-?-?-?-?-?-?- B 160 A -?-?-?-?-?-?-?-?-?-?-?-?- B -?-?-?-?-?-?-?-?-?-?-?-?- A -?-?-?-?-?-?-?-?-?-?-?-?- B A SM- failed zofra n pepcid and phenergan, meclizine, got better with IVF phenergan reglan and zofran, will get optum home consult for reglan pump and ivfs at home. -?-?-?-?-?-?-?-?-?-?-?-?- B 01/14/22 -?-?-?-?-?-?-?-?-?-?-?-?- 10w 0d 159 lb 6 oz (+4 lb 6 oz) Negative -?-?-?-?-?-?-?-?-?-?-?-?- Negative A 170 -?-?-?-?-?-?-?-?-?-?-?-?- B 166 A -?-?-?-?-?-?-?-?-?-?-?-?- B -?-?-?-?-?-?-?-?-?-?-?-?- A -?-?-?-?-?-?-?-?-?-?-?-?- B A SM- nausea impro ving, optum following up at home getting nipt today -?-?-?-?-?-?-?-?-?-?-?-?- B 01/27/22 -?-?-?-?-?-?-?-?-?-?-?-?- 11w 6d 162 lb 8 oz (+7 lb 8 oz) 138/80 Negative -?-?-?-?-?-?-?-?-?-?-?-?- Negative A 150 -?-?-?-?-?-?-?-?-?-?-?-?- B 145 A -?-?-?-?-?-?-?-?-?-?-?-?- B -?-?-?-?-?-?-?-?-?-?-?-?- A -?-?-?-?-?-?-?-?-?-?-?-?- B A SM- co pink whil e wiping -?-?-?-?-?-?-?-?-?-?-?-?- B 02/10/22 -?-?-?-?-?-?-?-?-?-?-?-?- 13w 6d 163 lb (+8 lb) 114/82 Negative -?-?-?-?-?-?-?-?-?-?-?-?- Negative A 150 -?-?-?-?-?-?-?-?-?-?-?-?- B 163 A -?-?-?-?-?-?-?-?-?-?-?-?- B -?-?-?-?-?-?-?-?-?-?-?-?- A -?-?-?-?-?-?-?-?-?-?-?-?- B A JV- pt has cellu litis on her abdomen secondary to reglan pump. starting abx. pt to call if redness extends past the line I morales. She is having some agitation with reglan. will change zofran. -?-?-?-?-?-?-?-?-?-?-?-?- B 02/11/22 -?-?-?-?-?-?-?-?-?-?-?-?- 14w 1d 163 lb 2.273 oz (+8 lb 2.273 oz) 162 lb 7.691 oz (+7 lb 7.691 oz) 119/57 112/59 113/50 100/47 110/54 110/54 108/49 105/46 93/49 106/59 Negative mg/dl (Nega tive) -?-?-?-?-?-?-?-?-?-?-?-?- A -?-?-?-?-?-?-?-?-?-?-?-?- B A -?-?-?-?-?-?-?-?-?-?-?-?- B -?-?-?-?-?-?-?-?-?-?-?-?- A -?-?-?-?-?-?-?-?-?-?-?-?- B A -?-?-?-?-?-?-?-?-?-?-?-?- B 03/11/22 -?-?-?-?-?-?-?-?-?-?-?-?- 18w 0d 165 lb 6 oz (+10 lb 6 oz) 130/80 Negative -?-?-?-?-?-?-?-?-?-?-?-?- Negative A 133 -?-?-?-?-?-?-?-?-?-?-?-?- B 141 A -?-?-?-?-?-?-?-?-?-?-?-?- B -?-?-?-?-?-?-?-?-?-?-?--?- A -?-?-?-?-?-?-?-?-?-?-?-?- B A JV- grwoth scan scheduled, starting zoloft and pepcid bid -?-?-?-?-?-?-?-?-?-?-?-?- B 04/09/22 -?-?-?-?-?-?--?-?-?-?-?-?- 22w 1d 166 lb 4 oz (+11 lb 4 oz) 104/68 Negative -?-?-?-?-?-?-?-?-?-?-?-?- Negative A 140 -?-?-?-?-?-?-?-?-?-?-?-?- B 150 A -?-?-?-?-?-?-?-?-?-?-?-?- B -?-?-?-?-?-?-?-?-?-?-?-?- A -?-?-?-?-?-?-?-?-?-?-?-?- B A SM- no vb lof go od fm irregular ctx, get MFM consult report to review if progesterone indicated -?-?-?-?-?-?-?-?-?-?-?-?- B 05/07/22 -?-?-?-?-?-?-?-?-?-?-?-?- 26w 1d 171 lb (+16 lb) 110/66 Negative -?-?-?-?-?-?-?-?-?-?-?-?- Negative A 138 -?-?-?-?-?-?-?-?-?-?-?-?- B 135 A -?-?-?-?-?-?-?-?-?-?-?-?- B -?-?-?-?-?-?-?-?-?-?-?-?- A -?-?-?-?-?-?-?-?-?-?-?-?- B A JV-growth scan r eviewed. no complaints. f/u with mfm end of month gct ordered -?-?-?-?-?-?-?-?-?-?-?-?- B 05/21/22 -?-?-?-?-?-?-?-?-?-?-?-?- 28w 1d 172 lb (+17 lb) 126/70 Trace -?-?-?-?-?-?-?-?-?-?-?-?- Negative A 170 -?-?-?-?-?-?-?-?-?-?-?-?- B 140 A -?-?-?-?-?-?-?-?-?-?-?-?- B -?-?-?-?-?-?-?-?-?-?-?-?- A -?-?-?-?-?-?-?-?-?-?-?-?- B A SM- no vb lof go od fm no regular ctx -?-?-?-?-?-?-?-?-?-?-?-?- B 06/18/22 -?-?-?-?-?-?-?-?-?-?-?-?- 32w 1d 179 lb 2 oz (+24 lb 2 oz) 112/70 Negative -?-?-?-?-?-?-?-?-?-?-?-?- Negative A 140 -?-?-?-?-?-?-?-?-?-?-?-?- B 144 A Breech -?-?-?-?-?-?-?-?-?-?-?-?- B Cephalic -?-?-?-?-?-?-?-?-?-?-?-?- A -?-?-?--?-?-?-?-?-?-?-?-?- B A JV- bpp's 05/10 to day. IUGR of baby a and poly baby b persists. sending to L&D for steroids. -?-?-?-?-?-?-?-?-?-?-?-?- B ROS Constitutional Constitutional: Reports systems reviewed and no addt'l complaints, except as documented Gastrointestinal Gastrointestinal: Denies bloating, constipation, diarrhea, nausea or vomiting Genitourinary Genitourinary: Reports other Details: Denies vaginal odor, vaginal bleeding, or vaginal discharge ; Denies difficulty urinating or flank pain Physical Exam HEENT normocephalic Resp normal respiratory effort and normal air movement no CVA tenderness Amniotic Fluid: other cx unchanged 50/-3 Extremity normal to inspection General Extremity: edema bilateral (trace ) NST FHR Rate Baby A Baseline: 140 Variability:: Moderate Accelerations:: 15 x 15 Decelerations:: None NST Reactive:: Yes FHR Category:: Category I FHR Rate Baby B Baseline: 145-150 Variability:: Moderate Accelerations:: 15 x 15 Decelerations:: None NST Reactive:: Yes FHR Category:: Category I Assessment & Plan (1) Dichorionic diamniotic twin : COMMENT: nipt low risk, growth us q 4 weeks. delivery at 38. (2) Anxiety: COMMENT: zoloft 50 mg started 03/11/22 (3) Marijuana use, episodic: COMMENT: Positive at NOB Random tox screens encouarged cessation (4) Depression: COMMENT: zoloft encouraged counseling (5) Rh negative status during : COMMENT: rhogam at 28 weeks and PRN, rhogam 05/21/22 (6) Threatened labor, antepartum: PLAN: plan to send to [facility] for further monitoring and potential delivery. Dr. Jacobs is the accepting M attending. pt is status post one dose of celestone. she will get her second dose prior to going to [place]. Charges/Coding Visit Charges Inpatient E&M: 93574 Subs Hosp L3 Multi Select Codes Urinary/Genital Urinary/Genital CPT Codes: 26487-66 non-stress test Interp
== END 2022-06-20 22:42 | disposition home or self-care (01) ==
LOC: WPOUT 20:38 → WP 20:39
PROVIDERS: PCP Internal Medicine; Visit Provider Obstetrics & Gynecology
DX: O60.03 Preterm labor without delivery, third trimester (principal); F12.99 Cannabis use, unspecified with unspecified cannabis-induced disorder; F32.A Depression, unspecified; F41.9 Anxiety disorder, unspecified; Z3A.33 33 weeks gestation of pregnancy; O99.343 Other mental disorders complicating pregnancy, third trimester; O99.323 Drug use complicating pregnancy, third trimester; Z87.891 Personal history of nicotine dependence; O30.043 Twin pregnancy, dichorionic/diamniotic, third trimester
CPT/HCPCS: 59025; 59050; 99218; G0378

== ENCOUNTER 2022-06-24 18:45 | Inpatient (IN) | payer MEDICAID, SELFPAY ==
[2022-06-24] VITALS (17 sets, daily range): BP systolic 98–139; BP diastolic 49–89; PULSE 81–102; RESP 14–18; TEMP 37–37.3; O2SAT 93–100; BMI 31.2
[2022-06-24] MEDS: Lactated Ringers 1,000 ML 999 ML IV ×2 (17:05→19:10)
[2022-06-24] MEDS: Terbutaline 1 MG/ML Vial 0.25 MG SC (17:10)
[2022-06-24 17:38] LABS: Mucous, Urine 0 SEEN /hpf (<or=2+)
--- NOTE | 2022-06-24 17:38 | OB.TRI.HP_ITS ---
HPI - General HPI Narrative LILLIAN OCHOA, is a 36 F who presents with regular contractions and PTL cervical change to 1-2 cm no vb possible LOF ROM plus sent. considering csection due to IUGR twin A Maternal Data Information CALI Calculator Estimated Delivery Date Method Current WG Current Estimate 08/12/22 LMP (Certain) 33w 0d Other Estimates 08/12/22 Ultrasound #1 33w 0d # 2 PFSH PFSH Medical History (Updated 06/24/22 @ 17:[address] Maria Regan MD) Abnormal bruising Anxiety Anxiety Asthma Back pain Cervical strain Chest pain Concussion without loss of consciousness COVID-19 Depression Dichorionic diamniotic twin Fatigue Former smoker History of pre-term labor Hyperemesis Infertility IUGR (intrauterine growth restriction) Knee pain Marijuana use, episodic Migraines Polyhydramnios Polyhydramnios affecting Rh negative status during Shoulder pain Supervision of high risk , antepartum Vaginal bleeding during Home Medications prenat.vits,justine,hra-svtb-usnkb 1 tab PO DAILY Check with primary doctor 12/21/21 [History Last Taken 06/24/22 10:00] famotidine 20 mg tablet (Pepcid) 20 mg PO BID Check with primary doctor 06/18/22 [History Last Taken 06/24/22 10:00] sertraline 100 mg tablet (Zoloft) 150 mg PO DAILY Check with primary doctor 06/18/22 [History Last Taken 06/24/22 10:00] Allergy/AdvReac Type Severity Reaction Status Date / Time dicyclomine [From Bentyl] Allergy migraine Verified 06/24/22 16:19 Penicillins Allergy Rash Verified 06/24/22 16:19 Surgical History H/O dilation and curettage Social History adopted: No household members: significant other and children number of children: 2 current occupational status: employed 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 Date Name GA/Weeks Outcome Route Bth Weight Gen Labor Lgth Anesthesia Del Locatn Provider FOB Unknown 2018 SAB, D&C SM 08/14/09 Toby Nuñez 34 live - 4lbs 11oz Mal e 2 hours epidural [facility] 02/14/16 Emily 38 live - full term 7lbs 13oz Female 26 hours epidural [facility] [place] Delivery Date: 08/14/09 Last Updated by: Alison Noel Pre-term labor. Delivery Date: 02/14/16 Last Updated by: Alison Noel No issues during or delivery. Visit Details Expected Delivery Route/Plan Labor Preferences- CB/BF classes: [] labor support person: [] labor intervention preferences: [] pain management options preferred: [] cut cord/dad catch: [] : [] PP control planned: [] discussed possible routes of delivery and associated risks: [] special requests: [] Plans Covid status: discussed Flu vaccine: discussed Tdap vaccine: [] Rhogam: [] LARC form signed: [] Problem list reviewed and updated with the most current plan of care details and appropriate orders placed. Relevant counseling for the gestational age provided. Continue routine care and follow up unless otherwise noted in visit notes/problem list details OB Flowsheet Initial Weight: 155 lb Date -?-?-?-?-?-?-?-?-?-?-?-?- EGA Weight BP Urine Prot -?-?-?-?-?-?-?-?-?-?-?-?- Glucose FHR FuHt Pres Dilation -?-?-?-?-?-?-?-?-?-?-?-?- Effaced St Visit Note 01/04/22 -?-?-?-?-?-?-?-?-?-?-?-?- 8w 4d 149 lb (-6 lb) 112/82 -?-?-?-?-?-?-?-?-?-?-?-?- A 160 -?-?-?-?-?-?-?-?-?-?-?-?- B 160 A -?-?-?-?-?-?-?-?-?-?-?-?- B -?-?-?-?-?-?-?-?-?-?-?-?- A -?-?-?-?-?-?-?-?-?-?-?-?- B A SM- failed zofra n pepcid and phenergan, meclizine, got better with IVF phenergan reglan and zofran, will get optum home consult for reglan pump and ivfs at home. -?-?-?-?-?-?-?-?-?-?-?-?- B 01/14/22 -?-?-?-?-?-?-?-?-?-?-?-?- 10w 0d 159 lb 6 oz (+4 lb 6 oz) Negative -?-?-?-?-?-?-?-?-?-?-?-?- Negative A 170 -?-?-?-?-?-?-?-?-?-?-?-?- B 166 A -?-?-?-?-?-?-?-?-?-?-?-?- B -?-?-?-?-?-?-?-?-?-?-?-?- A -?-?-?-?-?-?-?-?-?-?-?-?- B A SM- nausea impro ving, optum following up at home getting nipt today -?-?-?-?-?-?-?-?-?-?-?-?- B 01/27/22 -?-?-?-?-?-?-?-?-?-?-?-?- 11w 6d 162 lb 8 oz (+7 lb 8 oz) 138/80 Negative -?-?-?-?-?-?-?-?-?-?-?-?- Negative A 150 -?-?-?-?-?-?-?-?-?-?-?-?- B 145 A -?-?-?-?-?-?-?-?-?-?-?-?- B -?-?-?-?-?-?-?-?-?-?-?-?- A -?-?-?-?-?-?-?-?-?-?-?-?- B A SM- co pink whil e wiping -?-?-?-?-?-?-?-?-?-?-?-?- B 02/10/22 -?-?-?-?-?-?-?-?-?-?-?-?- 13w 6d 163 lb (+8 lb) 114/82 Negative -?-?-?-?-?-?-?-?-?-?-?-?- Negative A 150 -?-?-?-?-?-?-?-?-?-?-?-?- B 163 A -?-?-?-?-?-?-?-?-?-?-?-?- B -?-?-?-?-?-?-?-?-?-?-?-?- A -?-?-?-?-?-?-?-?-?-?-?-?- B A JV- pt has cellu litis on her abdomen secondary to reglan pump. starting abx. pt to call if redness extends past the line I morales. She is having some agitation with reglan. will change zofran. -?-?-?-?-?-?-?-?-?-?-?-?- B 02/11/22 -?-?-?-?-?-?-?-?-?-?-?-?- 14w 1d 163 lb 2.273 oz (+8 lb 2.273 oz) 162 lb 7.691 oz (+7 lb 7.691 oz) 119/57 112/59 113/50 100/47 110/54 110/54 108/49 105/46 93/49 106/59 Negative mg/dl (Nega tive) -?-?-?-?-?-?-?-?-?--?-?-?- A -?-?-?-?-?-?-?-?-?-?-?-?- B A -?-?-?-?-?-?-?-?-?-?-?-?- B -?-?-?-?-?-?-?-?-?-?-?-?- A -?-?-?-?-?-?-?-?-?-?-?-?- B A -?-?-?-?-?-?-?-?-?-?-?-?- B 03/11/22 -?-?-?-?-?-?-?-?-?-?-?-?- 18w 0d 165 lb 6 oz (+10 lb 6 oz) 130/80 Negative -?-?--?-?-?-?-?-?-?-?-?-?- Negative A 133 -?-?-?-?-?-?-?-?-?-?-?-?- B 141 A -?-?-?-?-?-?-?-?-?-?-?-?- B -?-?-?-?-?-?-?-?-?-?-?-?- A -?-?-?-?-?-?-?-?-?-?-?-?- B A JV- grwoth scan scheduled, starting zoloft and pepcid bid -?-?-?-?-?-?-?-?-?-?-?-?- B 04/09/22 -?-?-?-?-?-?-?-?-?-?-?-?- 22w 1d 166 lb 4 oz (+11 lb 4 oz) 104/68 Negative -?-?-?-?-?-?-?-?-?-?-?-?- Negative A 140 -?-?-?-?-?-?-?-?-?-?-?-?- B 150 A -?-?-?-?-?-?-?--?-?-?-?-?- B -?-?-?-?-?-?-?-?-?-?-?-?- A -?-?-?-?-?-?-?-?-?-?-?-?- B A SM- no vb lof go od fm irregular ctx, get MFM consult report to review if progesterone indicated -?-?-?-?-?-?-?-?-?-?-?-?- B 05/07/22 -?-?-?-?-?-?-?-?-?-?-?-?- 26w 1d 171 lb (+16 lb) 110/66 Negative -?-?-?-?-?-?-?-?--?-?-?-?- Negative A 138 -?-?-?-?-?-?-?-?-?-?-?-?- B 135 A -?-?-?-?-?-?-?-?-?-?-?-?- B -?-?-?-?-?-?-?-?-?-?-?-?- A -?-?-?-?-?-?--?-?-?-?-?-?- B A JV-growth scan r vero. no complaints. f/u with mfm end of month gct ordered -?-?-?-?-?-?-?-?-?-?-?-?- B 05/21/22 -?-?-?-?-?-?-?-?-?-?-?-?- 28w 1d 172 lb (+17 lb) 126/70 Trace -?-?-?-?-?-?-?-?-?-?-?-?- Negative A 170 -?-?-?-?-?-?-?-?-?-?-?-?- B 140 A -?-?-?-?-?-?--?-?-?-?-?-?- B -?-?-?-?-?-?-?-?-?-?-?-?- A -?-?-?-?-?-?-?-?-?-?-?-?- B A SM- no vb lof go od fm no regular ctx -?-?-?-?-?-?-?-?-?-?-?-?- B 06/18/22 -?-?-?-?-?-?-?-?-?-?-?-?- 32w 1d 179 lb 2 oz (+24 lb 2 oz) 112/70 Negative -?-?-?-?-?-?-?-?-?-?-?-?- Negative A 140 -?-?-?-?-?-?-?-?-?-?-?-?- B 144 A Breech -?-?-?-?-?-?-?-?-?-?-?-?- B Cephalic -?-?-?-?-?-?-?-?-?-?-?-?- A -?-?-?-?-?-?-?-?-?-?-?-?- B A - [facility] 05/10 to day. IUGR of baby a and poly baby b persists. sending to L&D for steroids. -?-?-?-?-?-?-?-?-?-?-?-?- B 06/24/22 -?-?-?-?-?-?-?-?-?-?-?-?- 33w 0d 176 lb 5.917 oz (+21 lb 5.917 oz) 128/70 Pending -?-?-?-?-?-?-?-?-?-?-?-?- A -?-?-?-?-?-?-?-?-?-?-?-?- B A -?-?-?-?-?-?-?-?-?-?-?-?- B -?-?-?-?-?-?-?-?-?-?-?-?- A -?-?-?-?-?-?-?-?-?-?-?-?- B A -?-?-?-?-?-?-?-?-?-?-?-?- B ROS Constitutional Constitutional: Reports systems reviewed and no addt'l complaints, except as documented and as per HPI ENT HEENT: Reports systems reviewed and no addt'l complaints, except as documented Cardiovascular Cardiovascular: Reports systems reviewed and no addt'l complaints, except as documented Respiratory/Chest Respiratory/Chest: Reports systems reviewed and no addt'l complaints, except as documented Gastrointestinal Gastrointestinal: Reports as per HPI Genitourinary Genitourinary: Reports as per HPI Musculoskeletal Musculoskeletal: Reports systems reviewed and no addt'l complaints, except as documented Integumentary Integumentary: Reports systems reviewed and no addt'l complaints, except as documented Neurologic Neurologic: Reports systems reviewed and no addt'l complaints, except as documented Physical Exam Const alert, oriented x3 and no apparent distress HEENT Head and Scalp: normocephalic and atraumatic Neck full ROM and no lymphadenopathy Chest inspection of chest normal Resp normal respiratory effort GI GI Narrative: gravid, abdomen nontender, AGA Manual OB Exam: dilated, effaced and station NST FHR Rate Baby A Baseline: 140 Variability:: Moderate Accelerations:: 15 x 15 Decelerations:: None NST Reactive:: Yes FHR Category:: Category I Uterine Activity:: regular q 2-4 Assessment & Plan (1) Threatened labor: COMMENT: 06/24 transport to [facility] (2) : QUALIFIERS: Weeks of gestation: 32 weeks Qualified Code(s): Z3A.32 - 32 weeks gestation of COMMENT: anatomy nl, NIPT low risk, OB LM US nl 04/13 (3) Anxiety: COMMENT: zoloft 50 mg started 03/11/22 (4) History of tetanus, diphtheria, and acellular pertussis booster vaccination (Tdap): COMMENT: 05/21/22 (5) Abnormal glucose level: COMMENT: passed 3 hr GTT (6) Polyhydramnios affecting : COMMENT: twin B (7) IUGR (intrauterine growth restriction): COMMENT: twin A, growth US every 2 wks steroids 06/18 & 06/19 (8) Supervision of high risk , antepartum: COMMENT: PRR CALI 08/12/22 fraternal boys PC:Emily Nuñez. Fiance:Rashid (9) Rh negative status during : COMMENT: rhogam at 28 weeks and PRN, rhogam 05/21/22 (10) Marijuana use, episodic: COMMENT: Positive at NOB Random tox screens encouarged cessation (11) Depression: COMMENT: Lexapro. encouraged counseling (12) Dichorionic diamniotic twin : COMMENT: nipt low risk, growth us q 4 weeks. delivery at 38. PLAN: Plan start ampicillin IVFs s/p terb x 1 Charges/Coding Multi Select Codes Visit Charges Office Visit/Consults: 88573 OV L3 Est Urinary/Genital Urinary/Genital CPT Codes: 79653-99 non-stress test Interp
[2022-06-24 17:42] LABS: Hematocrit 34.6 % (37-47); Mean Corp Hgb Conc 31.8 g/dL (32-36); Mean Corpuscular Hgb 26.7 pg (27.0-32.0); Mean Platelet Vol. 10.9 fl (6.2-12.0); Platelet Count 261 K/mm3 (150-450); RBC Distribution Width CV 13.7 % (11.6-14.6); RBC Distribution Width SD 42.2 fl (35.1-43.9); Red Blood Count 4.12 M/mm3 (4.2-5.4); White Blood Count 14.2 K/mm3 (4.4-11.0)
[2022-06-24 17:44] LABS: Color, Urine Yellow (Yellow); Glucose, Dipstick Normal (Normal); Ketone-Dipstick Negative (Negative); Leukocyte Esterase-Dipstick Negative /ul (Negative); Nitrite-Dipstick Negative (Negative); Occult Blood-Urine Negative /ul (Negative); Protein-Dipstick Negative (Negative); Specific Gravity, Urine 1.015 (1.002-1.030); Urine Bilirubin Dipstick Negative (Negative); Urine Clarity Clear (Clear); Urine Urobilinogen Normal (Normal); Urine pH 6.5 (5.0 - 8.0)
[2022-06-24 17:52] LABS: Bacteria 1+ /hpf (None Seen); Squamous Epithelial Cells - UA 5-10 SEEN /hpf (5-10)
[2022-06-24 17:53] LABS: Red Blood Cells-Urine 0-5 SEEN /hpf (0-5); White Blood Cells 0-5 SEEN /hpf (0-5)
[2022-06-24] MEDS: Cefazolin 2 GM in 0.9% Normal Saline 100 ML IV (18:03)
[2022-06-24 18:12] LABS: ROM Internal Control Test YES-OK TO RESULT pt. (Internal QC)
[2022-06-24 18:13] LABS: ROM Patient Test POSITIVE (Negative)
[2022-06-24] MEDS: fentaNYL 100 MCG/2 ML Ampul 50 MCG IV (18:23)
--- NOTE | 2022-06-24 19:03 | HP.PCM.OB_ITS ---
HPI - General General Date of Admission: 06/24/22 HPI Narrative LILLIAN OCHOA, is a 36 F who presents IAL made change to 3 cm 70 percent effaced ad bloody show and ruptured, declining vaginal delivery requesting primary . Maternal Data Information CALI Calculator Estimated Delivery Date Method Current WG Current Estimate 08/12/22 LMP (Certain) 33w 0d Other Estimates 08/12/22 Ultrasound #1 33w 0d # 2 PFSH PFSH Medical History (Updated 06/24/22 @ 19:23 by Shari Fuentes) Abnormal bruising Anxiety Anxiety Asthma Back pain Cervical strain Chest pain Concussion without loss of consciousness COVID-19 Depression Dichorionic diamniotic twin Fatigue Former smoker History of pre-term labor History of premature rupture of membranes (PPROM) Hyperemesis Infertility IUGR (intrauterine growth restriction) Knee pain Marijuana use, episodic Migraines Polyhydramnios Polyhydramnios affecting depression Rh negative status during Shoulder pain Supervision of high risk , antepartum Vaginal bleeding during Home Medications prenat.vits,justine,ajc-pcgt-cbbgs 1 tab PO DAILY Check with primary doctor 12/21/21 [History Last Taken 06/24/22 10:00] famotidine 20 mg tablet (Pepcid) 20 mg PO BID Check with primary doctor 06/18/22 [History Last Taken 06/24/22 10:00] sertraline 100 mg tablet (Zoloft) 150 mg PO DAILY Check with primary doctor 06/18/22 [History Last Taken 06/24/22 10:00] Allergy/AdvReac Type Severity Reaction Status Date / Time dicyclomine [From Bentyl] Allergy migraine Verified 06/24/22 16:19 Penicillins Allergy Rash Verified 06/24/22 16:19 Surgical History H/O dilation and curettage Social History adopted: No household members: significant other and children number of children: 2 current occupational status: employed 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 Date Name GA/Weeks Outcome Route Bth Weight Gen Labor Lgth Anesthesia Del Locatn Provider FOB Unknown 2018 SAB, D&C SM 08/14/09 Toby Nuñez 34 live - 4lbs 11oz Mal e 2 hours epidural [place] [facility] 02/14/16 Emily 38 live - full term 7lbs 13oz Female 26 hours epidural [place] Dr. Myke Fiore Delivery Date: 08/14/09 Last Updated by: Alison Noel Pre-term labor. Delivery Date: 02/14/16 Last Updated by: Alison Noel No issues during or delivery. Visit Details Expected Delivery Route/Plan Labor Preferences- CB/BF classes: [] labor support person: [] labor intervention preferences: [] pain management options preferred: [] cut cord/dad catch: [] : [] PP control planned: [] discussed possible routes of delivery and associated risks: [] special requests: [] Plans Covid status: discussed Flu vaccine: discussed Tdap vaccine: [] Rhogam: [] LARC form signed: [] Problem list reviewed and updated with the most current plan of care details and appropriate orders placed. Relevant counseling for the gestational age provided. Continue routine care and follow up unless otherwise noted in visit notes/problem list details OB Flowsheet Initial Weight: 155 lb Date -?-?-?-?-?-?-?-?-?-?-?-?- EGA Weight BP Urine Prot -?-?-?-?-?-?-?-?-?-?-?-?- Glucose FHR FuHt Pres Dilation -?-?-?-?-?-?-?-?-?-?-?-?- Effaced St Visit Note 01/04/22 -?-?-?-?-?-?-?-?-?-?-?-?- 8w 4d 149 lb (-6 lb) 112/82 -?-?-?-?-?-?-?-?-?-?-?-?- A 160 -?-?-?-?-?-?-?-?-?-?-?-?- B 160 A -?-?-?-?-?-?-?-?-?-?-?-?- B -?-?-?-?-?-?-?-?-?-?-?-?- A -?-?-?-?-?-?-?-?-?-?-?-?- B A SM- failed zofra n pepcid and phenergan, meclizine, got better with IVF phenergan reglan and zofran, will get optum home consult for reglan pump and ivfs at home. -?-?-?-?-?-?-?-?-?-?-?-?- B 01/14/22 -?-?-?-?-?-?-?-?-?-?-?-?- 10w 0d 159 lb 6 oz (+4 lb 6 oz) Negative -?-?-?-?-?-?-?-?-?-?-?-?- Negative A 170 -?-?-?-?-?-?-?-?-?-?-?-?- B 166 A -?-?-?-?-?-?-?-?-?-?-?-?- B -?-?-?-?-?-?-?-?-?-?-?-?- A -?-?-?-?-?-?-?-?-?-?-?-?- B A SM- nausea impro ving, optum following up at home getting nipt today -?-?-?-?-?-?-?-?-?-?-?-?- B 01/27/22 -?-?-?-?-?-?-?-?-?-?-?-?- 11w 6d 162 lb 8 oz (+7 lb 8 oz) 138/80 Negative -?-?-?-?-?-?-?-?-?-?-?-?- Negative A 150 -?-?-?-?--?-?-?-?-?-?-?-?- B 145 A -?-?-?-?-?-?-?-?-?-?-?-?- B -?-?-?-?-?-?-?-?-?-?-?-?- A -?-?-?-?-?-?-?-?-?-?-?-?- B A SM- co pink whil e wiping -?-?-?-?-?-?-?-?-?-?-?-?- B 02/10/22 -?-?-?-?-?-?-?-?-?-?-?-?- 13w 6d 163 lb (+8 lb) 114/82 Negative -?-?-?-?-?-?-?-?-?-?-?-?- Negative A 150 -?-?-?-?-?-?-?-?-?-?-?-?- B 163 A -?-?-?-?-?-?-?-?-?-?-?-?- B -?-?-?-?-?-?-?-?-?-?-?-?- A -?-?-?-?-?-?-?-?-?-?-?-?- B A JV- pt has cellu litis on her abdomen secondary to reglan pump. starting abx. pt to call if redness extends past the line I morales. She is having some agitation with reglan. will change zofran. -?-?-?-?-?-?-?-?-?-?-?-?- B 02/11/22 -?-?-?-?-?-?-?-?-?-?-?-?- 14w 1d 163 lb 2.273 oz (+8 lb 2.273 oz) 162 lb 7.691 oz (+7 lb 7.691 oz) 119/57 112/59 113/50 100/47 110/54 110/54 108/49 105/46 93/49 106/59 Negative mg/dl (Nega tive) -?-?-?-?-?-?-?-?-?-?-?-?- A -?-?-?-?-?-?-?-?--?-?-?-?- B A -?-?-?-?-?-?-?-?-?-?-?-?- B -?-?-?-?-?-?-?-?-?-?-?-?- A -?-?-?-?-?-?-?-?-?-?-?-?- B A -?-?-?-?-?-?-?-?-?-?-?-?- B 03/11/22 -?-?-?-?-?-?-?-?-?-?-?-?- 18w 0d 165 lb 6 oz (+10 lb 6 oz) 130/80 Negative -?-?-?-?-?-?-?-?-?-?-?-?- Negative A 133 -?-?-?-?-?-?-?-?-?-?-?-?- B 141 A -?-?-?-?-?-?-?-?-?-?-?-?- B -?-?-?-?-?-?-?-?-?-?-?-?- A -?-?-?-?-?-?-?-?-?-?-?-?- B A JV- grwoth scan scheduled, starting zoloft and pepcid bid -?-?-?-?-?-?-?-?-?-?-?-?- B 04/09/22 -?-?-?-?-?-?-?-?-?-?-?-?- 22w 1d 166 lb 4 oz (+11 lb 4 oz) 104/68 Negative -?-?-?-?-?-?-?-?-?-?-?-?- Negative A 140 -?-?-?-?-?-?-?-?-?-?-?-?- B 150 A -?-?-?-?-?-?-?-?-?-?-?-?- B -?-?-?-?-?-?-?-?--?-?-?-?- A -?-?-?-?-?-?-?-?-?-?-?-?- B A SM- no vb lof go od fm irregular ctx, get MFM consult report to review if progesterone indicated -?-?-?-?-?-?-?-?-?-?-?-?- B 05/07/22 -?-?-?-?-?-?-?-?-?-?-?-?- 26w 1d 171 lb (+16 lb) 110/66 Negative -?-?-?-?-?-?-?-?-?-?-?-?- Negative A 138 -?-?-?-?-?-?-?-?-?-?-?-?- B 135 A -?-?-?-?-?-?-?-?-?-?-?-?- B -?-?-?-?-?-?-?-?-?-?-?-?- A -?-?-?-?-?-?-?-?-?-?-?-?- B A JV-growth scan prisca pham. no complaints. f/u with mfm end of month gct ordered -?-?-?-?-?-?-?-?-?-?-?-?- B 05/21/22 -?-?-?-?-?-?-?-?-?-?-?-?- 28w 1d 172 lb (+17 lb) 126/70 Trace -?-?-?-?-?-?-?-?-?-?-?-?- Negative A 170 -?-?-?-?-?-?-?-?-?-?-?-?- B 140 A -?-?-?-?-?-?-?-?-?-?-?-?- B -?-?-?-?-?-?-?--?-?-?-?-?- A -?-?-?-?-?-?-?-?-?-?-?-?- B A SM- no vb lof go od fm no regular ctx -?-?-?-?-?-?-?-?-?-?-?-?- B 06/18/22 -?-?-?-?-?-?-?-?-?-?-?-?- 32w 1d 179 lb 2 oz (+24 lb 2 oz) 112/70 Negative -?-?-?-?-?-?-?-?-?-?-?-?- Negative A 140 -?-?-?-?-?-?-?-?-?-?-?-?- B 144 A Breech -?-?-?-?-?-?-?-?-?-?-?-?- B Cephalic -?-?-?-?-?-?-?-?-?-?-?-?- A -?-?-?-?-?-?-?-?-?-?-?-?- B A - [facility] 05/10 to day. IUGR of baby a and poly baby b persists. sending to L&D for steroids. -?-?-?-?-?-?-?-?-?-?-?-?- B 06/24/22 -?-?-?-?-?-?-?-?-?-?-?-?- 33w 0d 176 lb 5.917 oz (+21 lb 5.917 oz) 128/70 121/67 Negative mg/dl (Nega tive) -?-?-?-?-?-?-?-?-?-?-?-?- A -?-?-?-?-?-?-?-?-?-?-?-?- B A -?-?-?-?-?-?-?-?-?-?-?-?- B -?-?-?-?-?-?-?-?-?-?-?-?- A -?-?-?-?-?-?-?-?-?-?-?-?- B A -?-?-?-?-?-?-?-?-?-?-?-?- B NST FHR Rate Baby A Baseline: 150 Variability:: Moderate Accelerations:: 15 x 15 Decelerations:: None NST Reactive:: Yes FHR Category:: Category I Uterine Activity:: q2-3 FHR Rate Baby B Baseline: 150 Variability:: Moderate Accelerations:: 15 x 15 Decelerations:: None NST Reactive:: Yes FHR Category:: Category I ROS Constitutional Constitutional: Reports systems reviewed and no addt'l complaints, except as d ocumented ENT HEENT: Reports systems reviewed and no addt'l complaints, except as documented Cardiovascular Cardiovascular: Reports systems reviewed and no addt'l complaints, except as documented Respiratory/Chest Respiratory/Chest: Reports systems reviewed and no addt'l complaints, except as documented Gastrointestinal Gastrointestinal: Reports systems reviewed and no addt'l complaints, except as documented and nausea; Denies abdominal pain Genitourinary Genitourinary: Reports systems reviewed and no addt'l complaints, except as documented, contractions Details: present and frequency (regular ) and movement Details: present Musculoskeletal Musculoskeletal: Reports systems reviewed and no addt'l complaints, except as documented Integumentary Integumentary: Reports as per HPI Neurologic Neurologic: Reports systems reviewed and no addt'l complaints, except as documented Endocrine Endocrinology: Reports systems reviewed and no addt'l complaints, except as documented Vital Signs Vital Signs Vital Signs: 06/24/22 16:10 06/24/22 16:10 06/24/22 16:09 Temperature Temperature Source Pulse Rate 90 Blood Pressure 128/70 H BP Systolic 128 BP Diastolic 70 Pulse Ox 93 06/24/22 16:08 06/24/22 16:08 06/24/22 17:11 Temperature 98.8 F Temperature Source Temporal Pulse Rate 101 H Blood Pressure BP Systolic BP Diastolic Pulse Ox 06/24/22 17:11 06/24/22 17:58 06/24/22 17:58 Temperature Temperature Source Pulse Rate 102 H Blood Pressure 121/67 H BP Systolic 121 BP Diastolic 67 Pulse Ox 97 06/24/22 17:58 06/24/22 17:58 Temperature 99.1 F Temperature Source Temporal Pulse Rate Blood Pressure BP Systolic BP Diastolic Pulse Ox Weight Weight: 176 lb 5.917 oz Body Mass Index (BMI) 31.2 Physical Exam Const alert, oriented x3 and healthy appearing Constitutional Narrative: uncomfortable with contractions HEENT normocephalic and moist oral mucous membranes Head and Scalp: atraumatic Neck full ROM, no lymphadenopathy, supple and thyroid normal General: trachea midline Thyroid: thyroid normal Lymph Lymphatic: no lymphadenopathy noted Chest inspection of chest normal Resp normal respiratory effort Cardio regular rate GI normal to inspection, nondistended, normoactive bowel sounds, soft to palpation and non-tender Inspection: gravid external exam normal Bimanual Exam - Vag & Uterus: uterus non-tender Manual OB Exam: estimated gestational size appropriate, presentation cephalic, dilated, effaced and station Extremity normal to inspection General Extremity: Negative for edema Skin no rashes or lesions noted Neuro deep tendon reflexes 2+ bilaterally Motor Exam: strength 5/5 throughout and clonus absent Psych mental status grossly normal Labs Labs Labs: Blood Type A NEGATIVE Antibody Screen POSITIVE H Hct 34.6 % (37-47) L Hgb 11.0 g/dL (12.0-15.0) L Obstetrics US Syphilis Total Ab Non-reactive Rubella IgG Antibody Reactive (Nonreactive) Hep Bs Antigen Non-Reactive (Nonreactive) Chlamydia DNA (FRANCESCO) Negative (Negative) Neisseria gonorrhoeae DNA (FR[facility]ESCO) Negative (Negative) HIV 1&2 Antibody Non-Reactive (Nonreactive) Glucose 1 Hr 50 gm 151 mg/dL (70-140) H Group B Strep DNA Negative (Negative) Assessment & Plan (1) labor: (2) premature rupture of membranes (PPROM) with onset of labor within 24 hours of rupture in third trimester, antepartum: (3) : QUALIFIERS: Weeks of gestation: 32 weeks Qualified Code(s): Z3A.32 - 32 weeks gestation of COMMENT: anatomy nl, NIPT low risk, OB LM US nl 04/13 (4) Anxiety: COMMENT: zoloft 50 mg started 03/11/22 (5) History of tetanus, diphtheria, and acellular pertussis booster vaccination (Tdap): COMMENT: 05/21/22 (6) Abnormal glucose level: COMMENT: passed 3 hr GTT (7) Polyhydramnios affecting : COMMENT: twin B (8) IUGR (intrauterine growth restriction): COMMENT: twin A, growth US every 2 wks steroids 06/18 & 06/19 (9) Supervision of high risk , antepartum: COMMENT: PRR CALI 08/12/22 fraternal boys PC:Emily Nuñez. Fiance:Rashid (10) Rh negative status during : COMMENT: rhogam at 28 weeks and PRN, rhogam 05/21/22 (11) Marijuana use, episodic: COMMENT: Positive at NOB Random tox screens encouarged cessation (12) Depression: COMMENT: Lexapro. encouraged counseling (13) Dichorionic diamniotic twin : COMMENT: nipt low risk, growth us q 4 weeks. delivery at 38. PLAN: Plan proceed with delivery, RLTCS and BS
--- NOTE | 2022-06-24 19:25 | EX.PCM.OBRPT ---
Assessment & Plan (1) Anxiety: COMMENT: zoloft 50 mg started 03/11/22 (2) delivery delivered: COMMENT: per patient request due to twins and IUGR. [facility] LTCS boys 35 PPROM PTL (3) Rh negative status during : COMMENT: rhogam at 28 weeks and PRN, rhogam 05/21/22 (4) Marijuana use, episodic: COMMENT: Positive at NOB Random tox screens encouarged cessation (5) Depression: COMMENT: Lexapro. encouraged counseling (6) Dichorionic diamniotic twin : COMMENT: nipt low risk, growth us q 4 weeks. delivery at 38. (7) IUGR (intrauterine growth restriction): COMMENT: twin A, growth US every 2 wks steroids 06/18 & 06/19 (8) Polyhydramnios affecting : COMMENT: twin B (9) labor: (10) premature rupture of membranes (PPROM) with onset of labor within 24 hours of rupture in third trimester, antepartum: (11) Supervision of high risk , antepartum: COMMENT: PRR CALI 08/12/22 fraternal boys PC:Emily Nuñez. 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 Patient was prepped and draped in the normal sterile fashion. Pfannenstiel skin incision was made with the scalpel and carried through to the underlying layer of fascia with the scalpel. Fascia was nicked in the midline and the incision extended laterally. The rectus bellies were dissected off superiorly and inferiorly with out complication both sharply and bluntly. The peritoneum was entered digitally. The incision was stretched and a low transverse uterine incision was made with the scalpel. The infant's head was delivered atraumatically followed by the anterior and posterior shoulders without complication the rest of the infant delivered. The cord was clamped and cut and the infant was handed off to awaiting nurse. second bag was ruptured and infant noted to be transverse and the was converted to vertex and then delivered, first the head and followed by the shoulders and rest of the infant delivered without complication. The placenta was delivered spontaneously immediately following and was noted to be intact and have a three-vessel cord. Patient had desired sterilization and was counseled preoperatively regarding irreversibility and permanency. Therefore bilateral fallopian tubes were elevated and transected across using a LigaSure device starting proximally to distally without complication the entire fallopian tubes were removed. The uterus was exteriorized cleared of all clots and debris, and the incision was closed in a single layer closure using #1 Monocryl. The ovaries and fallopian tubes were noted to be within normal limits. The uterus was returned to the maternal abdomen and gutters were cleared of all clots and debris. The peritoneum was closed with 3-0 Monocryl in a running fashion. Gloves were changed prior to fascial closure. Fascia was closed with 0 PDS in a running fashion. Subcutaneous tissue was copiously irrigated and the skin was closed with 3-0 Monocryl in a subcuticular fashion. Mepilex dressing was applied without complication. Patient was taken to recovery in stable condition. Amniotic Membrane Rupture Type: Spontaneous Amniotic Fluid Description: Clear Placental Delivery Description: Spontaneous Placenta Disposition: [facility] Cord Vessel Description: 3 Vessels Cord Entanglement: None A Gender: Male Delayed Cord Clamping: Yes Complications Risks of Surgery Discussed w/Patient: Bleeding, Infection, Need for Future C-Sections and Injury to surrounding structure(s) including bowel and bladder Complications: none Admit VTE Documentation VTE Present on Admission: No VTE Mechan Device Prophylaxis: SCD's Baby B Information Amniotic Membrane Rupture Type: Artificial Operative Information Mode of Delivery: Cord Vessel Description: 3 Vessels Infant B gender: Male Multi Select Codes Urinary/Genital Urinary/Genital CPT Codes: 21788 C/S+TL (bilateral salpingectomy) and 07428 delivery+ Care([facility]) (twins both )
--- NOTE | 2022-06-24 19:26 | NURSING ---
OOS late note entry Pt arrived to L & D at 1600 via ambulation with c/o michelle every 2-4 minutes. Pt appears to be in discomfort. upon exam she was noted to be 1cm and doctor to be notified. orders for iv bolus given and doctor to come down to see pt. Dr Regan to floor to see pt. exam done and pt now noted to be dilated to almost 2cm. [facility] was notified by Dr Regan and accepting physician returned her call. The decision was made to transfer pt to [facility]. [facility] was called at 1750 for transport. Upon all the information given to [facility] they stated they needed to transport her via critical care unit. They do not provide those services so they contacted [facility]. Ginny suggested flying patient due to ground transport would be 2 1/[address] Regan stated pt did not NEED to fly. She was informed that ground would be 2 1/2 hours and no other transport team is available. She was okay with pt flying. [facility] informed them that Doctor was okay with flying patient. They will call unit back when lifting off and will be sending a ground transport as well in case of delivery. ro arrived (without notification) at 1836 and request was made by them to recheck pt before transferring her to their cot. Lab notified unit that patient ROM was Positive. Dr Regan performed the exam and the patient noted to be 3cm. Dr Regan made the decision to call MFM (Dr Verde) and pt unstable to transport. Delivery to be at [facility]. Pt was admitted at 1845. Dr Kraus was notified and asked to call [facility] to [facility] her for delivery.
[2022-06-24] MEDS: Acetaminophen 500 MG Tablet 1000 MG PO (19:29)
--- NOTE | 2022-06-24 19:32 | DCINST_ITS ---
Discharge Instructions Diet Discharge Diet: No restrictions Activity Discharge Activity: Return to Normal Activity, May Drive (when pain free and off narcotic pain meds), May Shower and May Take a Tub Bath (in 4 weeks) May resume sexual activity in: 6 weeks Weight Bearing Status: Full weight bearing Lifting Restrictions: under 30 lbs for 6 weeks Dressing / Incision Call your doctor if your incision/area has: Continuous Slow Oozing, Sudden Increased Bleeding, Increased Pain/ Swelling, Increased Redness, Foul Smelling Discharge and - Call your doctor if you observe: Fever of 101 or Higher, Using more than 1 pad per hour, Shortness of breath, Chest pain and Uncontrolled pain Suture Line Care: Avoid Pulling/Pushing and Avoid Pinching/Bending Change Dressing in: 1 week (leave open to air after removed) Remove Dressing in: 1 week (if present) Cleanse incision/area with: Soap & Water and Keep Dressing Clean & Dry Follow Up Care Please Follow Up With: Maria Regan MD When: Call to make an appointment with your doctor for a postop visit in 2 and 6 weeks. Test Results: Test results from this visit will be discussed in further detail at your follow- up appointment, if applicable. Discharge Plan Admission Admit Date/Time: 06/24/22 18:45 Attending Provider: Maria Regan Primary Care Provider: Roger Cohen Discharge Orders/Prescriptions Prescriptions: New oxycodone-acetaminophen [Percocet] 5-325 mg tablet 1 tab PO Q6H PRN (Reason: pain) 7 Days Qty: 20 0RF naproxen [naproxen] 500 mg tablet 500 mg PO BID PRN PRN (Reason: Pain) Qty: 30 1RF No Action prenat.vits,justine,[id number] Tablet 1 tab PO DAILY sertraline [Zoloft] 100 mg tablet 150 mg PO DAILY famotidine [Pepcid] 20 mg tablet 20 mg PO BID Referrals / Follow Up: Roger Cohen MD [Primary Care Provider] - Disposition Disposition (needs filled in before D/C Order can be placed): Home, Self Care
[2022-06-24] MEDS: Sodium Citrate/Citric Acid 30 ML UDC PO (19:36)
[2022-06-24 19:53] LABS: Amphetamine Urine VISTA NEGATIVE (<1000 ng/mL); Barbiturate Urine VISTA POSITIVE (< 200 ng/mL); Benzodiazepine Urine VISTA NEGATIVE (< 200 ng/mL); Cocaine Urine VISTA NEGATIVE (< 300 ng/mL); Ecstacy Urine VISTA NEGATIVE (< 500 ng/mL); Methadone Urine VISTA NEGATIVE (< 300 ng/mL); PCP Urine VISTA NEGATIVE (< 25 ng/mL); THC Urine VISTA NEGATIVE (< 50 ng/mL); Vista UDS pH Range 6
[2022-06-24] MEDS: Oxytocin 30 units/NS 500 ml 30 UNITS/500 ML IV.SOLN 167 UNITS IV (21:25)
[2022-06-24] MEDS: Ketorolac 30 MG/ML Syringe IV (21:40)
[2022-06-24] MEDS: 0.9% Saline Lock 10 ML Syringe IV (21:41)
[2022-06-24] MEDS: DiphenhydrAMINE 25 MG Capsule PO (23:23)
[2022-06-25] VITALS (15 sets, daily range): BP systolic 106–118; BP diastolic 52–69; PULSE 63–91; RESP 14–18; TEMP 36.2–36.9; O2SAT 95–100
[2022-06-25] MEDS: Lactated Ringers 1,000 ML 100 ML IV (00:41)
[2022-06-25] MEDS: Acetaminophen 500 MG Tablet 1000 MG PO ×4 (01:56→19:19)
[2022-06-25] MEDS: LORazepam 1 MG Tablet PO ×2 (01:56→09:22)
--- NOTE | 2022-06-25 02:29 | FALS_PTH ---
PATIENT: LILLIAN OCHOA LOC: [facility] U#:[id number] AGE/SX: 36/F ROOM: WP006 RE06/24/[address]: Dr. Maria Regan MD : 1985 BED: 1 DIS: 06/25/2022 SPEC #: [id number] RECD: 06/25/22 03:20 STATUS: DILMA GONZALEZ #: [id number] MARIA INES: 06/25/22 02:[address]: Maria Regan DEPT: SURGICAL PATHOLOGY RECD BY: Ellen Means ENTERED: 06/25/22 07:55 SP TYPE: FALL TUBES OTHR DR: Dr. Roger Cohen MD Tissues: A - Fallopian tube B - Fallopian tube Procedures: Surgery Specimen Level II Surgery Specimen Level IV HEADER OPERATION: Tubal ligation PRE-OP DIAGNOSIS: Sterilization TISSUE SUBMITTED: A - Right fallopian tube, B - Left fallopian tube MICROSCOPIC DIAGNOSIS A. Right fallopian tube, salpingectomy: Complete cross-sections of fallopian tube with no pathologic change. B. Left fallopian tube, salpingectomy: Complete cross-sections of fallopian tube Benign paratubal cyst. AM:clara 06/28/2022 MICROSCOPIC DESCRIPTION Slides are reviewed. GROSS DESCRIPTION A - Received in fixative is one container labeled with the patient's name and designated right fallopian tube. The specimen consists of a fallopian tube including fimbrial end measuring 9.5 cm in length and 0.5 to 1 cm in diameter. Sections reveal unremarkable cut surfaces. Traffic Ii Manager sections are submitted in one cassette. B - Received in fixative is one container labeled with the patient's name and designated left fallopian tube. The specimen consists of a fallopian tube including fimbrial end measuring 9 cm in length and 0.6 to 1 cm in diameter. Sections reveal unremarkable cut surfaces. A paratubal cyst is also noted measuring 0.9 cm in greatest dimension. Traffic Ii Manager sections are submitted in one cassette including paratubal cyst. / SJ:clara 06/25/2022 TC:3 CPT: 14613, 31351
[2022-06-25 03:20] LABS: Pathology Specimen OB SEE PATHOLOGY REPORT
[2022-06-25] MEDS: Ketorolac 30 MG/ML Syringe IV ×3 (03:29→14:45)
[2022-06-25 05:48] LABS: Hematocrit 29.3 % (37-47); Hemoglobin 9.4 g/dL (12.0-15.0); Mean Corp Hgb Conc 32.1 g/dL (32-36); Mean Corpuscular Hgb 27.1 pg (27.0-32.0); Mean Corpuscular Volume 84.4 fL (81-99); Mean Platelet Vol. 10.2 fl (6.2-12.0); Platelet Count 206 K/mm3 (150-450); RBC Distribution Width CV 13.6 % (11.6-14.6); RBC Distribution Width SD 41.8 fl (35.1-43.9); Red Blood Count 3.47 M/mm3 (4.2-5.4); White Blood Count 19.2 K/mm3 (4.4-11.0)
--- NOTE | 2022-06-25 08:15 | PN.OBGYN_ITS ---
Subjective Subjective Patient doing well without complaints. Tolerating PO. Ambulating and voiding without difficulty. feeding well. Denies chest pain, shortness of breath, calf pain/swelling, fevers, chills, lightheadedness. Objective Data Objective Data Vital Signs: Vital Signs Temp Pulse Resp BP Pulse Ox O2 Del Method 98.4 F 85 16 117/52 L 98 Room Air 06/25/22 03:30 06/25/22 07:32 06/25/22 07:32 06/25/22 05:26 06/25/22 07:32 06/25/22 07:32 Oxygen Delivery Method Room Air Weight: 176 lb 5.917 oz Body Mass Index (BMI) 31.2 Intake & Output: Intake and Output for Last 24 Hours 06/23/22 06/24/22 06/25/22 23:59 23:59 23:59 Intake Total 2365 / 2365 1023.33 / 1023.33 Output Total 400 / 400 700 / 700 Balance 1965 / 1965 323.33 / 323.33 Lab / Micro Data Result Diagrams: 06/25/22 05:40 Labs: Laboratory Results - last 24 hr 06/24/22 17:05: WBC 14.2 H, RBC 4.12 L, Hgb 11.0 L, Hct 34.6 L, MCV 84.0, MCH 26.7 L, MCHC 31.8 L, RDW Std Deviation 42.2, RDW Coeff of Tulio 13.7, Plt Count 261, MPV 10.9 06/24/22 17:05: Blood Type Cancelled, Antibody Screen Cancelled 06/24/22 17:10: Urine Color Yellow, Urine Clarity Clear, Urine pH 6.5, Ur Specific [place] 1.015, Urine Protein Negative, Urine Glucose (UA) Normal, Urine Ketones Negative, Urine Occult Blood Negative, Urine Nitrite Negative, Urine Bilirubin Negative, Urine Urobilinogen Normal, Ur Leukocyte Esterase Negative, Urine RBC 0-5 SEEN, Urine WBC 0-5 SEEN, Ur Squamous Epith Cells 5-10 SEEN, Urine Bacteria 1+, Urine Mucus 0 SEEN 06/24/22 17:10: Urine Opiates Screen NEGATIVE, Urine Methadone Screen NEGATIVE, Ur Barbiturates Screen POSITIVE H, Ur Phencyclidine Scrn NEGATIVE, Ur Amphetamines Screen NEGATIVE, MDMA (Ecstasy) Screen NEGATIVE, U Benzodiazepines Scrn NEGATIVE, Urine Cocaine Screen NEGATIVE, U Cannabinoids Screen NEGATIVE, Ur Drug Screen Comment 06/24/22 17:48: Vag Amniotic Fld Detect POSITIVE H 06/24/22 18:53: Blood Type A NEGATIVE, Antibody Screen POSITIVE H, Antibody Identification ANTI-D 06/25/22 05:40: WBC 19.2 H, RBC 3.47 L, Hgb 9.4 L, Hct 29.3 L, MCV 84.4, MCH 27.1, MCHC 32.1, RDW Std Deviation 41.8, RDW Coeff of Tulio 13.6, Plt Count 206, MPV 10.2 06/25/22 05:40: Screen NEGATIVE, Baby's Blood Type O POSITIVE, Baby's GREGORIO NEGATIVE ROS Constitutional Constitutional: Reports systems reviewed and no addt'l complaints, except as documented Cardiovascular Cardiovascular: Reports systems reviewed and no addt'l complaints, except as documented Respiratory/Chest Respiratory/Chest: Reports systems reviewed and no addt'l complaints, except as documented Gastrointestinal Gastrointestinal: Reports systems reviewed and no addt'l complaints, except as documented Physical Exam Const alert, oriented x3 and no apparent distress HEENT Head and Scalp: atraumatic Resp normal respiratory effort GI soft to palpation and non-tender Inspection: incision intact, healing well and drainage (none) Bimanual Exam - Vag & Uterus: uterus non-tender Uterus Palpation: uterus fundus firm (below Umbilicus) Assessment & Plan (1) Anxiety: COMMENT: zoloft 50 mg started 03/11/22 (2) delivery delivered: COMMENT: per patient request due to twins and IUGR. [facility] LTCS boys 33 PPROM PTL (3) Rh negative status during : COMMENT: rhogam at 28 weeks and PRN, rhogam 05/21/22 (4) Marijuana use, episodic: COMMENT: Positive at NOB Random tox screens encouarged cessation (5) Depression: COMMENT: zoloft encouraged counseling PLAN: Plan s/p LTCS PPD # 1 1. routine post care 2. breast feeding- support given 3. rh positive 4. rubella immune
[2022-06-25] MEDS: Senna/Docusate Sodium 1 Tablet PO (09:19)
[2022-06-25] MEDS: Sertraline 100 MG Tablet 150 MG PO (09:20)
[2022-06-25] MEDS: 0.9% Saline Lock 10 ML Syringe IV ×2 (09:22→14:46)
[2022-06-25] MEDS: FLU VACC QS2022-23(6MOS UP)/PF 60 MCG/0.5 ML SYRINGE IM (14:15)
--- NOTE | 2022-06-25 15:54 | NURSING ---
student charting reviewed
[2022-06-25] MEDS: Mag Hydrox/Al Hydrox/Simeth 30 ML UDC PO (18:03)
[2022-06-25] MEDS: oxyCODONE 5 MG Tablet PO (19:20)
[2022-06-26 08:44] VITALS: BP 99/53; PULSE 73
== END 2022-06-25 20:25 | disposition home or self-care (01) | DRG 539 ==
LOC: WPOUT 18:49 → WP 18:49
PROVIDERS: Admitting Provider Obstetrics & Gynecology; PCP Internal Medicine; Referring Provider Obstetrics & Gynecology; Visit Provider Obstetrics & Gynecology
DX: O42.913 Preterm premature rupture of membranes, unspecified as to length of time between rupture and onset of labor, third trimester (principal); O99.324 Drug use complicating childbirth; F12.90 Cannabis use, unspecified, uncomplicated; F41.9 Anxiety disorder, unspecified; O99.344 Other mental disorders complicating childbirth; F32.A Depression, unspecified; Z37.2 Twins, both liveborn; Z87.891 Personal history of nicotine dependence; O36.5930 Maternal care for other known or suspected poor fetal growth, third trimester, not applicable or unspecified; Z86.16 Personal history of COVID-19; O30.043 Twin pregnancy, dichorionic/diamniotic, third trimester; Z3A.39 39 weeks gestation of pregnancy; Z67.91 Unspecified blood type, Rh negative
CPT/HCPCS: 59025; 59050; 80307; 81001; 84112; 85027; 85461; 86850; 86870; 86900; 86901; 87086; 87088; 88302; 88305; 90384; 99218; J7120; 90686; A4216; G0378; J2790

== ENCOUNTER 2022-09-17 11:48 | Emergency (ER) | payer MEDICAID, SELFPAY ==
[2022-09-17 11:49] VITALS: BP 125/60; PULSE 81; RESP 16; TEMP 36.6; O2SAT 99; BMI 28.3
--- NOTE | 2022-09-17 12:36 | EX.ED.DYSGE1 ---
HPI History of Present Illness Chief Complaint: Back Detail of Chief Complaint: Back pain and arthralgias and myalgias Informant: patient Narrative Narrative: Patient presents the emergency department with complaint of body aches for about a week. Patient states that about 5 or 6 days ago she had an illness with a little bit of a cough and fever. Patient states other family members were ill with a similar type illness. Now she is complaining of diffuse body aches and joint aches and muscle cramping intermittently. No history of autoimmune disorder. No history of arthritis. She denies dysuria. She denies injury to her back. She denies any pain rating down her legs. She denies weakness of the extremities. [facility] Medical History Abnormal bruising Anxiety Anxiety Asthma Back pain Cervical strain Chest pain Concussion without loss of consciousness COVID-19 Depression Dichorionic diamniotic twin Fatigue Former smoker History of pre-term labor History of premature rupture of membranes (PPROM) Hyperemesis Infertility IUGR (intrauterine growth restriction) Knee pain Marijuana use, episodic Migraines Polyhydramnios Polyhydramnios affecting depression Rh negative status during Shoulder pain Supervision of high risk , antepartum Vaginal bleeding during Home Medications prenat.vits,justine,[id number] 1 tab PO DAILY Check with primary doctor 12/21/21 [History Last Taken 06/24/22 10:00] famotidine 20 mg tablet (Pepcid) 20 mg PO BID Check with primary doctor 06/18/22 [History Last Taken 06/24/22 10:00] sertraline 100 mg tablet (Zoloft) 150 mg PO DAILY Check with primary doctor 06/18/22 [History Last Taken 06/24/22 10:00] naproxen 500 mg tablet 500 mg PO BID PRN PRN Pain #30 tabs 06/24/22 [Rx Last Taken Unknown] oxycodone-acetaminophen 5 mg-325 mg tablet (Percocet) 1 tab PO Q6H PRN pain 7 days #20 tabs 06/24/22 [Rx Last Taken Unknown] hydrocodone-acetaminophen 5-325mg 5mg-325mg 1 tab PO Q4H PRN PRN Pain 2 days #10 TABLETS 09/17/22 [Rx Last Taken Unknown] naproxen 500 mg tablet 500 mg PO BID #14 tabs 09/17/22 [Rx Last Taken Unknown] Allergy/AdvReac Type Severity Reaction Status Date / Time dicyclomine [From Bentyl] Allergy migraine Verified 09/17/22 11:50 Penicillins Allergy Rash Verified 09/17/22 11:50 Surgical History H/O dilation and curettage Social History adopted: No household members: significant other and children number of children: 2 current occupational status: employed 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 Smoking Status: Former smoker alcohol intake: current details: occasionally; not while substance use type: marijuana caffeine: Yes what type of physical activity do you participate in: none seatbelt use: always do you feel safe at home: Yes additional social history: Baljinder WEBB ROS ED Review of Systems ROS Unobtainable: other Constitutional Constitutional ED: Reports systems reviewed and no addt'l complaints, except as documented and fever(s); Denies body ache(s), change in weight or chills Eyes Eyes: Denies acute decrease in peripheral vision, change in vision, double vision or loss of vision ENT ENT ED: Reports none; Denies ear pain, lip swelling, loss taste/smell, neck pain, otalgia or sore throat Cardiovascular Cardiovascular: Reports none; Denies abdominal pain, chest pain with activity, leg edema, lightheadedness, palpitations, rapid heart rate or syncope Respiratory/Chest Respiratory/Chest: Reports none; Denies change in mental status, dry cough, dyspnea, hemoptysis, shortness of breath at rest or shortness of breath with exertion Gastrointestinal Gastrointestinal: Reports none; Denies abdominal pain, change in stool character, diarrhea, hematemesis, hematochezia, melena, rectal bleeding or vomiting Genitourinary Genitourinary ED: Reports none; Denies abdominal discomfort, anuria, dysuria, genital pain or polyuria Musculoskeletal Musculoskeletal: Reports none, arthralgias, back pain, extremity pain and myalgias; Denies difficulty walking or muscle weakness Integumentary Reports none; Denies abscess or rash Neurologic Neurologic: Reports none; Denies abnormal gait, confusion, focal weakness, frequent falls, headache(s), loss of vision, numbness, paresthesias, radicular pain, vertigo or weakness Psychiatric Psychiatric: Reports systems reviewed and no addt'l complaints, except as documented and none; Denies behavioral changes, confusion, difficulty concentrating, hallucinations, suicidal ideation, tactile hallucinations or visual hallucinations Endocrine Endocrinology: Denies none, cold intolerance, excessive sweating, fatigue or heat intolerance Hematologic/Lymphatic Hematologic/Lymphatic: Reports none; Denies anemia, easy bleeding or easy bruising Allergic/Immunologic Allergic/Immunologic ED: Denies as per HPI, none, lip swelling, mouth swelling, throat swelling, tongue swelling or hives EXAM Physical Exam Const Vital Signs: 09/17/22 11:49 Temperature 97.8 F Temperature Source Temporal Pulse Rate 81 Respiratory Rate 16 Blood Pressure 125/60 H Blood Pressure Mean 81 Pulse Ox 99 Oxygen Delivery Method Room Air Positive well nourished and well developed General Appearance ED: well developed and NAD HEENT Reports TM's clear and moist mucous membranes normocephalic and atraumatic; Negative for trauma or tenderness Tympanic Membrane ED: Yes TM's clear Eyes PERRL and EOMs intact bilaterally General Eye ED: Negative for pale conjunctiva or scleral icterus Neck no lymphadenopathy, supple and no JVD General: Negative for tenderness Chest Wall inspection of chest normal and palpation of chest normal Chest: Negative for tenderness Resp normal respiratory effort and clear to auscultation bilaterally Effort and Inspection: Negative for respiratory distress or pain with movement Auscultation: Negative for rhonchi, wheezes or diminished lung sounds Cardio regular rate, regular rhythm, S1 normal heart sound, S2 normal heart sound and no murmurs Peripheral Pulses: pulses 2+ throughout GI normal to inspection, nondistended, normoactive bowel sounds, soft to palpation, non-tender, non-distended and no masses Back/Spine no CVA tenderness and no thoracic nor lumbar tenderness Extremity normal to inspection General Extremety ED: Negative for edema General Extremity: Negative for edema Neuro oriented x3, CN's II-XII intact bilaterally, no sensory deficits noted and gait normal Sensorium / Orientation: awake, alert, oriented to person, oriented to place and oriented to time Motor Exam: strength 5/5 throughout and strength abnormal Psych mental status grossly normal Skin no rashes or lesions noted and no wounds MDM MDM MDM Narrative Medical decision making narrative: IV line established on arrival. Patient had a CBC with differential that showed a normal white count of 7.0. Sed rate was normal 17. Chemistries unremarkable. C-reactive protein was elevated 3.29. hCG was negative. Patient had a urinalysis that was normal. Patient was given Toradol and she states that she really did not get much relief with that. Influenza and COVID testing were negative. At this point etiology of her myalgias and back pain unclear although I suspect possibility related to a viral infection. I cannot rule out autoimmune type disorder. Patient will given a referral to primary care physician for follow-up as well as rheumatology. Patient given a prescription for Naprosyn and a few Blanchard for pain. Lab Data Attestation: I reviewed the patient's lab results. Labs: Laboratory Results - last 24 hr 09/17/22 09/17/22 09/17/22 12:50 12:50 12:50 WBC 7.0 RBC 4.87 Hgb 12.8 Hct 40.5 MCV 83.2 MCH 26.3 L MCHC 31.6 L RDW Std Deviation 57.2 H RDW Coeff of Tulio 18.9 H Plt Count 196 MPV 10.1 Immature Gran % (Auto) 0.400 Neut % (Auto) 59.9 Lymph % (Auto) 31.6 Hall % (Auto) 5.3 Eos % (Auto) 2.2 Baso % (Auto) 0.6 Absolute Neuts (auto) 4.2 Absolute Lymphs (auto) 2.20 Nucleated RBC % 0 ESR 17 Sodium 135 L Potassium 4.1 Chloride 105 Carbon Dioxide 24.0 Anion Gap 6 BUN 16 Creatinine 0.63 Estim Creat Clear Calc 104.08 Est GFR (MDRD) Af Amer 139 Est GFR (MDRD) Non-Af 115 BUN/Creatinine Ratio 25.6 H Glucose 88 Calcium 8.7 C-React Prot Ext Range 3.29 H Serum , Qual NEGATIVE Urine Color Urine Clarity Urine pH Ur Specific [place] Urine Protein Urine Glucose (UA) Urine Ketones Urine Occult Blood Urine Nitrite Urine Bilirubin Urine Urobilinogen Ur Leukocyte Esterase Urine RBC Urine WBC Ur Squamous Epith Cells Urine Bacteria Urine Mucus 09/17/22 14:10 WBC RBC Hgb Hct MCV MCH MCHC RDW Std Deviation RDW Coeff of Tulio Plt Count MPV Immature Gran % (Auto) Neut % (Auto) Lymph % (Auto) Hall % (Auto) Eos % (Auto) Baso % (Auto) Absolute Neuts (auto) Absolute Lymphs (auto) Nucleated RBC % ESR Sodium Potassium Chloride Carbon Dioxide Anion Gap BUN Creatinine Estim Creat Clear Calc Est GFR (MDRD) Af Amer Est GFR (MDRD) Non-Af BUN/Creatinine Ratio Glucose Calcium C-React Prot Ext Range Serum , Qual Urine Color Yellow Urine Clarity Sl. Cloudy Urine pH 7.0 Ur Specific [place] 1.010 Urine Protein Negative Urine Glucose (UA) Normal Urine Ketones Negative Urine Occult Blood Negative Urine Nitrite Negative Urine Bilirubin Negative Urine Urobilinogen Normal Ur Leukocyte Esterase Negative Urine RBC 0-5 SEEN Urine WBC 0 SEEN Ur Squamous Epith Cells 5-10 SEEN Urine Bacteria 0 SEEN Urine Mucus 0 SEEN Discharge Plan Triage Chief Complaint: Back ED Provider: Abdulaziz Mckenzie Dx/Rx/DC Orders Clinical Impression: Back pain, Myalgia, Arthralgia Instructions: ED Arthralgia, ED Myalgias, ED Back and Neck Pain, General Prescriptions: New hydrocodone-acetaminophen [hydrocodone-acetaminophen] 5-325 mg tablet 1 tab PO Q4H PRN PRN (Reason: Pain) 2 Days Qty: 10 0RF naproxen 500 mg tablet 500 mg PO BID Qty: 14 0RF No Action prenat.vits,justine,[id number] Tablet 1 tab PO DAILY sertraline [Zoloft] 100 mg tablet 150 mg PO DAILY famotidine [Pepcid] 20 mg tablet 20 mg PO BID oxycodone-acetaminophen [Percocet] 5-325 mg tablet 1 tab PO Q6H PRN (Reason: pain) 7 Days Qty: 20 0RF naproxen [naproxen] 500 mg tablet 500 mg PO BID PRN PRN (Reason: Pain) Qty: 30 1RF Primary Care Provider: Roger Cohen Referrals: Burton Lee MD [Med Staff - Active Staff] - 3-5 Days Natalie Garcia MD [Med Staff - Production Planner] - 3-5 Days Roger Cohen MD [Primary Care Provider] - Disposition Disposition: Home, Self Care
[2022-09-17] MEDS: 0.9% Normal Saline 1,000 ML 1000 ML IV (12:53)
[2022-09-17] MEDS: Ketorolac 30 MG/ML Syringe IV (12:53)
[2022-09-17 13:07] LABS: Erythrocyte Sedimentation Rate 17 mm/hr (0-30)
[2022-09-17 13:08] LABS: Absolute Neutrophil Count 4.2 X10^3/uL (2.0-7.7); Basophil# 0.04 X10^3/uL; Basophil% 0.6 % (0-1); Eosinophil# 0.15 X10^3/uL; Eosinophils% 2.2 % (0-5); Hematocrit 40.5 % (37-47); Hemoglobin 12.8 g/dL (12.0-15.0); Lymphocyte % 31.6 % (19-41); Mean Corp Hgb Conc 31.6 g/dL (32-36); Mean Corpuscular Hgb 26.3 pg (27.0-32.0); Mean Corpuscular Volume 83.2 fL (81-99); Mean Platelet Vol. 10.1 fl (6.2-12.0); Monocyte# 0.37 X10^3/uL; Monocyte% 5.3 % (0-10); NRBC Flagged by Analyzer 0 % (0-5); Neutrophil # 4.17 X10^3/uL (2.7-7.7); Neutrophil % 59.9 % (47-70); Platelet Count 196 K/mm3 (150-450); RBC Distribution Width CV 18.9 % (11.6-14.6); RBC Distribution Width SD 57.2 fl (35.1-43.9); Red Blood Count 4.87 M/mm3 (4.2-5.4)
[2022-09-17 13:15] LABS: Internal QC Validated? YES +Cl - CLEAR BKGD; Pregnancy, Serum, hCG Quali. NEGATIVE Negative
[2022-09-17 13:23] LABS: Anion Gap 6 (5-15); BUN 16 mg/dL (7-18); BUN/Creat Ratio 25.6 RATIO (10-20); CRP 3.29 mg/L (0.0-3.0); Calcium,Total 8.7 mg/dL (8.5-10.1); Chloride 105 mmol/L (98-107); Creatinine, Serum 0.63 mg/dL (0.55-1.02); EST Glomerular Filtration Rate 115 mL/min (>60); Est Glom Filt Rate - Afr Amer 139 mL/min (>60); Estimated Creatinine Clearance 104.08 ml/min; Glucose 88 mg/dL (74-106); Potassium 4.1 mmol/L (3.5-5.1); Sodium Level 135 mmol/L (136-145)
[2022-09-17 14:14] LABS: Bacteria 0 SEEN /hpf (None Seen); Mucous, Urine 0 SEEN /hpf (<or=2+); White Blood Cells 0 SEEN /hpf (0-5)
[2022-09-17 14:20] LABS: Color, Urine Yellow (Yellow); Glucose, Dipstick Normal (Normal); Ketone-Dipstick Negative (Negative); Leukocyte Esterase-Dipstick Negative /ul (Negative); Nitrite-Dipstick Negative (Negative); Occult Blood-Urine Negative /ul (Negative); Protein-Dipstick Negative (Negative); Urine Bilirubin Dipstick Negative (Negative); Urine Clarity Sl. Cloudy (Clear); Urine Urobilinogen Normal (Normal)
[2022-09-17 14:33] LABS: Red Blood Cells-Urine 0-5 SEEN /hpf (0-5); Squamous Epithelial Cells - UA 5-10 SEEN /hpf (5-10)
[2022-09-17 16:42] VITALS: BP 110/75; PULSE 88; RESP 16; O2SAT 99
== END 2022-09-17 16:43 | disposition home or self-care (01) ==
PROVIDERS: Emergency Provider Emergency Medicine; PCP Internal Medicine; Visit Provider Emergency Medicine
DX: M54.9 Dorsalgia, unspecified (principal); R79.82 Elevated C-reactive protein (CRP); Z20.822 Contact with and (suspected) exposure to COVID-19; M25.50 Pain in unspecified joint; M79.10 Myalgia, unspecified site; Z79.899 Other long term (current) drug therapy; Z87.891 Personal history of nicotine dependence
CPT/HCPCS: 80048; 81001; 84703; 85025; 85652; 86140; 87428; 96361; 96374; 99283; J7030

== ENCOUNTER 2023-07-28 09:47 | Emergency (ER) | payer MEDICAID, SELFPAY ==
[2023-07-28 09:48] VITALS: BP 110/48; PULSE 76; RESP 15; TEMP 36.7; O2SAT 100; BMI 26.5
--- NOTE | 2023-07-28 09:56 | EX.ED.DYSGE1 ---
HPI History of Present Illness Chief Complaint: Complaint Informant: patient Onset/Context/Timing Onset: Yesterday Context: Sudden Onset Timing: Continuous Quality: Constant dull but cramping at times Location: Left pelvis Worsened by: Nothing Relieved by: Nothing Narrative Narrative: Patient presents with pelvic pain that began yesterday. Patient describes it as a constant dull aching pain but is cramping at times. Patient states it is mainly over the left pelvic area. Patient states it came on rather suddenly. Patient states nothing makes it worse and nothing makes it better. Patient states she has a history of PCOS and states this feels similar to prior ovarian cyst. Patient admits to some subjective chills but denies any fevers. Patient admits to some nausea but denies any vomiting. Patient states her pain does radiate into her back. [facility] Medical History Abnormal bruising Anxiety Anxiety Asthma Back pain Cervical strain Chest pain Concussion without loss of consciousness COVID-19 Depression Dichorionic diamniotic twin Fatigue Former smoker History of pre-term labor History of premature rupture of membranes (PPROM) Hyperemesis Infertility IUGR (intrauterine growth restriction) Knee pain Marijuana use, episodic Migraines Polyhydramnios Polyhydramnios affecting depression Rh negative status during Shoulder pain Supervision of high risk , antepartum Vaginal bleeding during Home Medications prenat.vits,justine,[id number] 1 tab PO DAILY Check with primary doctor 12/21/21 [History Last Taken 06/24/22 10:00] famotidine 20 mg tablet (Pepcid) 20 mg PO BID Check with primary doctor 06/18/22 [History Last Taken 06/24/22 10:00] sertraline 100 mg tablet (Zoloft) 150 mg PO DAILY Check with primary doctor 06/18/22 [History Last Taken 06/24/22 10:00] oxycodone-acetaminophen 5 mg-325 mg tablet (Percocet) 1 tab PO Q6H PRN pain 7 days #20 tabs 06/24/22 [Rx Last Taken Unknown] hydrocodone-acetaminophen 5-325mg 5mg-325mg 1 tab PO Q4H PRN PRN Pain 2 days #10 TABLETS 09/17/22 [Rx Last Taken Unknown] naproxen 500 mg tablet 500 mg PO BID #14 tabs 09/17/22 [Rx Last Taken Unknown] naproxen 500 mg tablet 500 mg PO BID PRN PRN Pain #20 tabs 07/28/23 [Rx Last Taken Unknown] Allergy/AdvReac Type Severity Reaction Status Date / Time dicyclomine [From Bentyl] Allergy migraine Verified 07/28/23 09:50 Penicillins Allergy Rash Verified 07/28/23 09:50 Surgical History H/O dilation and curettage Social History adopted: No household members: significant other and children number of children: 2 current occupational status: employed 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; [employer] Smoking Status: Current every day smoker tobacco type: cigarettes alcohol intake: current details: occasionally; not while substance use type: marijuana caffeine: Yes what type of physical activity do you participate in: none seatbelt use: always do you feel safe at home: Yes additional social history: Baljinder WEBB ED Constitutional Constitutional ED: Reports chills and subjective; Denies fever(s) Eyes Eyes: Denies blurry vision or change in vision ENT ENT ED: Denies rhinorrhea or sore throat Cardiovascular Cardiovascular: Denies chest pain or palpitations Respiratory/Chest Respiratory/Chest: Denies cough or dyspnea Gastrointestinal Gastrointestinal: Reports abdominal pain and nausea; Denies vomiting Genitourinary Genitourinary ED: Denies dysuria or hematuria Musculoskeletal Musculoskeletal: Reports back pain; Denies neck pain Integumentary Denies abscess or rash Neurologic Neurologic: Denies headache(s) or weakness Allergic/Immunologic Allergic/Immunologic ED: Denies mouth swelling or urticaria EXAM Physical Exam Const Vital Signs: 07/28/23 09:48 07/28/23 10:59 07/28/23 11:48 Temperature 98.1 F 98 F Temperature Source Temporal Oral Pulse Rate 76 64 72 Respiratory Rate 15 16 Blood Pressure 110/48 L 97/47 L 106/67 Blood Pressure Mean 68 63 80 Pulse Ox 100 97 Oxygen Delivery Method Room Air Room Air Positive well nourished and well developed General Appearance ED: well developed and NAD HEENT Reports moist mucous membranes Neck supple and no JVD Resp normal respiratory effort and clear to auscultation bilaterally Cardio regular rate and regular rhythm GI non-distended Palpation: soft and tender LLQ and suprapubic; Negative for guarding or rebound tenderness present Neuro oriented x3, CN's II-XII intact bilaterally and no sensory deficits noted Sensorium / Orientation: alert Motor Exam: strength 5/5 throughout Psych mental status grossly normal MDM MDM MDM Narrative Medical decision making narrative: Differential diagnosis includes ectopic , ovarian cyst, ovarian torsion, urinary tract infection, diverticulitis, colitis, and viral illness. CBC will be obtained to assess for leukocytosis and anemia. Basic metabolic profile will be obtained to assess for electrolyte abnormality and renal function. Urinalysis will be obtained to assess for urinary tract infection. Serum hCG will be obtained to assess for . Lab Data Attestation: I reviewed the patient's lab results. Lab results narrative: CBC was reviewed and showed a mild leukocytosis of 11.7. Basic metabolic profile was reviewed and was within normal limits. Serum hCG was reviewed and was negative. Urinalysis was reviewed. There is no evidence of urinary tract infection or hematuria. Labs: Laboratory Results - last 24 hr 07/28/23 07/28/23 10:40 11:05 WBC 11.7 H RBC 4.66 Hgb 14.0 Hct 42.1 MCV 90.3 MCH 30.0 MCHC 33.3 RDW Std Deviation 45.0 H RDW Coeff of Tulio 13.5 Plt Count 210 MPV 10.2 Immature Gran % (Auto) 0.300 Neut % (Auto) 71.4 H Lymph % (Auto) 18.5 L [place] % (Auto) 5.2 Eos % (Auto) 3.9 Baso % (Auto) 0.7 Absolute Neuts (auto) 8.3 H Absolute Lymphs (auto) 2.16 Nucleated RBC % 0 Sodium 136 Potassium 4.4 Chloride 107 Carbon Dioxide 24.0 Anion Gap 5 BUN 15 Creatinine 0.70 Estim Creat Clear Calc 92.79 Est GFR (MDRD) Af Amer 123 Est GFR (MDRD) Non-Af 101 BUN/Creatinine Ratio 21.5 H Glucose 115 H Calcium 8.9 Serum , Qual NEGATIVE Urine Color Yellow Urine Clarity Sl. Cloudy Urine pH 7.0 Ur Specific [place] 1.010 Urine Protein Negative Urine Glucose (UA) Normal Urine Ketones Negative Urine Occult Blood Negative Urine Nitrite Negative Urine Bilirubin Negative Urine Urobilinogen Normal Ur Leukocyte Esterase Negative Urine RBC 0 SEEN Urine WBC 0 SEEN Ur Squamous Epith Cells 0 SEEN Urine Bacteria 0 SEEN Urine Mucus 0 SEEN Treatment and Re-Evaluation :: Patient was given IV fluids, morphine, and Zofran. Patient is feeling better on reevaluation. Patient was advised of her findings. Patient was advised that this could still be ovarian cyst. Patient was instructed to use warm compresses. Patient was given a prescription for Naprosyn for pain. Patient was instructed to follow-up with her primary care physician in 5 to 7 days. Patient understood and was agreeable with the plan. All questions were answered. Discharge Plan Triage Chief Complaint: Complaint ED Provider: Augie Frederick Dx/Rx/DC Orders Clinical Impression: Pelvic pain, Depression Instructions: ED Pelvic Pain, Unknown Cause Prescriptions: Continued naproxen 500 mg tablet 500 mg PO BID PRN PRN (Reason: Pain) Qty: 20 0RF No Action prenat.vits,justine,[id number] Tablet 1 tab PO DAILY sertraline [Zoloft] 100 mg tablet 150 mg PO DAILY famotidine [Pepcid] 20 mg tablet 20 mg PO BID oxycodone-acetaminophen [Percocet] 5-325 mg tablet 1 tab PO Q6H PRN (Reason: pain) 7 Days Qty: 20 0RF hydrocodone-acetaminophen [hydrocodone-acetaminophen] 5-325 mg tablet 1 tab PO Q4H PRN PRN (Reason: Pain) 2 Days Qty: 10 0RF naproxen 500 mg tablet 500 mg PO BID Qty: 14 0RF Primary Care Provider: JENNIFER BROWN MD Referrals: Roger Cohen MD [Med Staff - Sanitary Engineering Teacher] - 5-7 Days Disposition Disposition: Home, Self Care
[2023-07-28 10:49] LABS: Absolute Lymphocyte Count 2.16 X10^3/uL (0.83-4.51); Absolute Neutrophil Count 8.3 X10^3/uL (2.0-7.7); Basophil# 0.08 X10^3/uL; Basophil% 0.7 % (0-1); Eosinophil# 0.46 X10^3/uL; Eosinophils% 3.9 % (0-5); Hematocrit 42.1 % (37-47); Lymphocyte # 2.16 X10^3/ul (0.83-4.51); Lymphocyte % 18.5 % (19-41); Mean Corp Hgb Conc 33.3 g/dL (32-36); Mean Corpuscular Volume 90.3 fL (81-99); Mean Platelet Vol. 10.2 fl (6.2-12.0); Monocyte% 5.2 % (0-10); NRBC Flagged by Analyzer 0 % (0-5); Neutrophil # 8.32 X10^3/uL (2.7-7.7); Neutrophil % 71.4 % (47-70); Platelet Count 210 K/mm3 (150-450); RBC Distribution Width CV 13.5 % (11.6-14.6); Red Blood Count 4.66 M/mm3 (4.2-5.4); White Blood Count 11.7 K/mm3 (4.4-11.0)
[2023-07-28] MEDS: Morphine 4 MG/ML Syringe IV (10:50)
[2023-07-28] MEDS: 0.9% Normal Saline (1000mL) 1,000 ML 1000 ML IV (10:50)
[2023-07-28] MEDS: Ondansetron 4 MG/2 ML Vial IV (10:50)
[2023-07-28 10:59] VITALS: BP 97/47; PULSE 64; RESP 16; TEMP 36.6; O2SAT 97
[2023-07-28 11:10] LABS: Bacteria 0 SEEN /hpf (None Seen); Mucous, Urine 0 SEEN /hpf (<or=2+); Red Blood Cells-Urine 0 SEEN /hpf (0-5); Squamous Epithelial Cells - UA 0 SEEN /hpf (5-10); White Blood Cells 0 SEEN /hpf (0-5)
[2023-07-28 11:23] LABS: Color, Urine Yellow (Yellow); Glucose, Dipstick Normal (Normal); Ketone-Dipstick Negative (Negative); Leukocyte Esterase-Dipstick Negative /ul (Negative); Nitrite-Dipstick Negative (Negative); Occult Blood-Urine Negative /ul (Negative); Protein-Dipstick Negative (Negative); Urine Bilirubin Dipstick Negative (Negative); Urine Clarity Sl. Cloudy (Clear); Urine Urobilinogen Normal (Normal)
[2023-07-28 11:24] LABS: Internal QC Validated? YES +Cl - CLEAR BKGD; Pregnancy, Serum, hCG Quali. NEGATIVE Negative; Record Kit Lot#, Serum Preg. HCG0000667200
[2023-07-28 11:48] VITALS: BP 106/67; PULSE 72
[2023-07-28 12:12] LABS: Anion Gap 5 (5-15); BUN 15 mg/dL (7-18); BUN/Creat Ratio 21.5 RATIO (10-20); Calcium,Total 8.9 mg/dL (8.5-10.1); Chloride 107 mmol/L (98-107); EST Glomerular Filtration Rate 101 mL/min (>60); Est Glom Filt Rate - Afr Amer 123 mL/min (>60); Estimated Creatinine Clearance 92.79 ml/min; Glucose 115 mg/dL (74-106); Potassium 4.4 mmol/L (3.5-5.1); Sodium Level 136 mmol/L (136-145)
== END 2023-07-28 13:33 | disposition home or self-care (01) ==
PROVIDERS: Emergency Provider Emergency Medicine; Visit Provider Emergency Medicine
DX: R10.2 Pelvic and perineal pain (principal); R11.0 Nausea; F17.210 Nicotine dependence, cigarettes, uncomplicated; F32.A Depression, unspecified; J45.909 Unspecified asthma, uncomplicated
CPT/HCPCS: 80048; 81001; 84703; 85025; 96361; 96374; 96375; 99284; A4216; J2405

== ENCOUNTER 2024-01-23 21:58 | Emergency (ER) | payer MEDICAID, SELFPAY ==
[2024-01-23 21:59] VITALS: BP 112/66; PULSE 83; RESP 16; TEMP 36.1; O2SAT 99; BMI 28.3
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
[2024-01-23 23:07] LABS: Internal QC Validated? YES +Cl - CLEAR BKGD; Pregnancy, Serum, hCG Quali. NEGATIVE Negative
[2024-01-23 23:17] LABS: Anion Gap 8 (5-15); BUN 13 mg/dL (7-18); BUN/Creat Ratio 21.2 RATIO (10-20); Chloride 109 mmol/L (98-107); Creatinine, Serum 0.61 mg/dL (0.55-1.02); EST Glomerular Filtration Rate 117 mL/min (>60); Est Glom Filt Rate - Afr Amer 142 mL/min (>60); Estimated Creatinine Clearance 121.71 ml/min; Glucose 87 mg/dL (74-106); Potassium 3.8 mmol/L (3.5-5.1); Sodium Level 136 mmol/L (136-145)
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
== END 2024-01-24 00:08 | disposition home or self-care (01) ==
PROVIDERS: Emergency Provider Emergency Medicine; Visit Provider Emergency Medicine
DX: T74.11XA Adult physical abuse, confirmed, initial encounter (principal); F41.9 Anxiety disorder, unspecified; F17.210 Nicotine dependence, cigarettes, uncomplicated; J45.909 Unspecified asthma, uncomplicated; Y08.89XA Assault by other specified means, initial encounter; Y07.030 Male partner, current, perpetrator of maltreatment and neglect
CPT/HCPCS: 70498; 80048; 84703; 99283; Q9967; A4216

== ENCOUNTER 2024-03-27 14:47 | Emergency (ER) | payer MEDICAID, SELFPAY ==
[2024-03-27 14:48] VITALS: BP 112/53; PULSE 71; RESP 18; TEMP 36; O2SAT 99; BMI 27.0
[2024-03-27 15:33] LABS: Absolute Lymphocyte Count 2.31 X10^3/uL (0.83-4.51); Basophil# 0.05 X10^3/uL; Basophil% 0.6 % (0-1); Eosinophil# 0.23 X10^3/uL; Eosinophils% 2.9 % (0-5); Hematocrit 42.5 % (37-47); Hemoglobin 13.8 g/dL (12.0-15.0); Lymphocyte # 2.31 X10^3/ul (0.83-4.51); Lymphocyte % 28.9 % (19-41); Mean Corp Hgb Conc 32.5 g/dL (32-36); Mean Corpuscular Hgb 29.3 pg (27.0-32.0); Mean Corpuscular Volume 90.2 fL (81-99); Mean Platelet Vol. 11.1 fl (6.2-12.0); Monocyte# 0.38 X10^3/uL; Monocyte% 4.8 % (0-10); NRBC Flagged by Analyzer 0 % (0-5); Neutrophil # 5.01 X10^3/uL (2.7-7.7); Neutrophil % 62.5 % (47-70); Platelet Count 243 K/mm3 (150-450); RBC Distribution Width CV 13.4 % (11.6-14.6); RBC Distribution Width SD 44.6 fl (35.1-43.9); Red Blood Count 4.71 M/mm3 (4.2-5.4)
[2024-03-27 16:09] LABS: ALB/GLOB Ratio 1.1 RATIO (0.9-2.4); AST(SGOT) 22 U/L (15-37); Alanine Aminotransfer ALT/SGPT 15 U/L (13-56); Albumin, Serum 4.1 g/dL (3.2-5.0); Alkaline Phosphatase 76 U/L (45-117); Anion Gap 7 (5-15); BUN 11 mg/dL (7-18); BUN/Creat Ratio 12.1 RATIO (10-20); Calcium,Total 9.6 mg/dL (8.5-10.1); Chloride 109 mmol/L (98-107); Creatinine, Serum 0.91 mg/dL (0.55-1.02); EST Glomerular Filtration Rate 74 mL/min (>60); Est Glom Filt Rate - Afr Amer 90 mL/min (>60); Estimated Creatinine Clearance 79.82 ml/min; Globulin 3.6 g/dL (2.2-4.2); Glucose 105 mg/dL (74-106); Internal QC Validated? YES +Cl - CLEAR BKGD; Potassium 3.5 mmol/L (3.5-5.1); Pregnancy, Serum, hCG Quali. NEGATIVE Negative; Protein, Total 7.7 g/dL (6.4-8.2); Sodium Level 141 mmol/L (136-145)
[2024-03-27 16:42] VITALS: BP 118/80; PULSE 81; RESP 18; O2SAT 99
[2024-03-27 16:42] LABS: Mucous, Urine 0 SEEN /hpf (<or=2+); Red Blood Cells-Urine 0 SEEN /hpf (0-5); White Blood Cells 0 SEEN /hpf (0-5)
[2024-03-27 16:46] LABS: Color, Urine Yellow (Yellow); Glucose, Dipstick Normal (Normal); Ketone-Dipstick Negative (Negative); Leukocyte Esterase-Dipstick Negative /ul (Negative); Nitrite-Dipstick Negative (Negative); Occult Blood-Urine Negative /ul (Negative); Protein-Dipstick Negative (Negative); Specific Gravity, Urine 1.015 (1.002-1.030); Urine Bilirubin Dipstick Negative (Negative); Urine Clarity Sl. Cloudy (Clear); Urine Urobilinogen Normal (Normal)
[2024-03-27 17:00] LABS: Bacteria 2+ /hpf (None Seen); Squamous Epithelial Cells - UA 0-5 SEEN /hpf (5-10)
[2024-03-27] MEDS: Morphine 4 MG/ML Syringe IV (17:12)
[2024-03-27] MEDS: Ondansetron 4 MG/2 ML Vial IV (17:12)
--- NOTE | 2024-03-27 17:39 | US_ITS ---
STUDY: ULTRASOUND TRANSVAGINAL CLINICAL: Female, 38 years old. Right adnexal tenderness, fullness evaluate for to -- With blood flow to assess for torsion TECHNIQUE: Transvaginal COMPARISON: None. FINDINGS: Normal uterine size measuring 12 x 6.7 x 5 cm in maximal craniocaudal dimension. There are no myometrial masses. Normal endometrial thickness measuring 7 mm. There are no endometrial masses, and there is no fluid in the endometrial cavity. Tiny nabothian cyst in the lower uterine segment Normal right ovary, measuring 4.5 x 2.8 x 1.7 cm. There are multiple follicles without a dominant cyst. Normal arterial flow is observed at Normal left ovary, measuring 3.4 x 2.7 x 2.4 cm. There are multiple follicles noted Small cyst measuring 1.37 x 1.1 cm Normal arterial flow is observed. There is no free fluid in the pelvis. US/Transvaginal Non- IMPRESSION: Small left ovarian cyst approximately 1.4 x 1.2 x 1.2 cm. No evidence for ovarian torsion. Multiple bilateral ovarian follicles which may be consistent with clinical history of polycystic ovary disease Electronically Signed: Heri Godinez MD at 19:23 EDT ,
--- NOTE | 2024-03-27 17:42 | EX.ED.DYSGE1 ---
HPI History of Present Illness Chief Complaint: Abd Pain Detail of Chief Complaint: Right adnexal pain Informant: patient Onset/Context/Timing Onset: Today and Hours Context: Sudden Onset Timing: Continuous Quality: Pain Location: Right adnexa Current Severity: Moderate Maximum Severity: Severe Worsened by: Movement Relieved by: Nothing Associated Symptoms Associated Symptoms: Nausea Narrative Narrative: patient is a 38-year-old female with history of polycystic ovarian disease who has seen Dr. Vazquez Azevedo in the past for her obstetric and gynecologic issues. She presents because of abrupt onset of pain in the right adnexal area. She has no known history of endometriosis. She denies vaginal discharge. She is not been sexually active for a while. She has had a bilateral tubal ligation as well. She denies dysuria, frequency, urgency or hematuria. She has a remote history of ureteral/renal calculus. This pain is not similar. Prior similar symptoms: No Recent Illness/Hospitalization: No PFSH PFS Medical History depression History of premature rupture of membranes (PPROM) History of pre-term labor Polyhydramnios Asthma Anxiety Polyhydramnios affecting IUGR (intrauterine growth restriction) Anxiety Former smoker Hyperemesis Vaginal bleeding during Dichorionic diamniotic twin Rh negative status during Infertility Supervision of high risk , antepartum Marijuana use, episodic Concussion without loss of consciousness Cervical strain COVID-19 Depression Back pain Abnormal bruising Knee pain Chest pain Migraines Fatigue Shoulder pain Home Medications ?Medication ?Instructions ?Recorded ?Last Taken ?Type prenat.vits,justine,bxw-[id number] 1 tab PO DAILY Check with primary 12/21/21 06/24/22 10:00 History doctor famotidine 20 mg tablet (Pepcid) 20 mg PO BID Check with primary 06/18/22 06/24/22 10:00 History doctor sertraline 100 mg tablet (Zoloft) 150 mg PO DAILY Check with primary 06/18/22 06/24/22 10:00 History doctor naproxen 500 mg tablet 500 mg PO BID PRN PRN Pain #20 tabs 07/28/23 Unknown Rx naproxen 500 mg tablet 500 mg PO BID #14 tabs 03/27/24 Unknown Rx Allergy/AdvReac Type Severity Reaction Status Date / Time dicyclomine (From Bentyl) Allergy migraine Verified 03/27/24 14:49 Penicillins Allergy Rash Verified 03/27/24 14:49 Surgical History H/O dilation and curettage Social History adopted: No household members: significant other and children number of children: 2 current occupational status: employed 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; [employer] Smoking Status: Current every day smoker tobacco type: cigarettes alcohol intake: current details: occasionally; not while substance use type: marijuana caffeine: Yes what type of physical activity do you participate in: none seatbelt use: always do you feel safe at home: Yes additional social history: Baljinder WEBB ED Constitutional Constitutional ED: Denies chills, fever(s) or subjective Eyes Eyes: Denies blurry vision or change in vision ENT ENT ED: Denies ear pain, rhinorrhea or sore throat Cardiovascular Cardiovascular: Denies chest pain, palpitations or racing heartbeat Respiratory/Chest Respiratory/Chest: Denies cough, dyspnea or dyspnea on exertion Gastrointestinal Gastrointestinal: Reports abdominal pain and nausea; Denies constipation or diarrhea Genitourinary Genitourinary ED: Denies dysuria, hematuria or urinary frequency Musculoskeletal Musculoskeletal: Denies arthralgias, back pain or myalgias Integumentary Denies rash Neurologic Neurologic: Denies headache(s), paresthesias or weakness Endocrine Endocrinology: Denies cold intolerance or heat intolerance Hematologic/Lymphatic Hematologic/Lymphatic: Denies systems reviewed and no addt'l complaints, except as documented EXAM Physical Exam Const Vital Signs: 03/27/24 14:48 03/27/24 16:42 03/27/24 17:56 Temperature 96.8 F L Temperature Source Temporal Pulse Rate 71 81 74 Respiratory Rate 18 18 18 Blood Pressure 112/53 L 118/80 120/81 H Blood Pressure Mean 72 92 94 Pulse Ox 99 99 98 Oxygen Delivery Method Room Air Room Air Room Air 03/27/24 20:00 Temperature Temperature Source Pulse Rate 50 L Respiratory Rate 17 Blood Pressure 104/51 L Blood Pressure Mean 68 Pulse Ox 97 Oxygen Delivery Method Room Air Positive well nourished and well developed General Appearance ED: well developed and NAD; Negative for cyanotic or diaphoretic HEENT Reports moist mucous membranes HEENT Narrative: Head atraumatic, cephalic. Ears normal. Nares patent. Eyes PERRL and EOMs intact bilaterally General Eye ED: Negative for pale conjunctiva or scleral icterus Neck no lymphadenopathy, supple and no JVD Chest Wall inspection of chest normal and palpation of chest normal Resp normal respiratory effort and clear to auscultation bilaterally Cardio regular rate, regular rhythm, S1 normal heart sound, S2 normal heart sound and no murmurs GI normal to inspection, nondistended, normoactive bowel sounds and non-distended; Negative for non-tender or hepatosplenomegaly Palpation: tender RLQ Narrative: External genitalia normal. Vaginal cervical mucosa normal. No bleeding or discharge. Uterus is normal size. There is cervical motion tenderness. There is mild discomfort with pressure against the bladder. There is adnexal fullness on the right with significant tenderness on the right. Left adnexa is nontender. There is no fullness. Back/Spine no CVA tenderness Extremity normal to inspection General Extremety ED: Negative for edema or tenderness General Extremity: Negative for edema Neuro oriented x3 and CN's II-XII intact bilaterally Sensorium / Orientation: alert Psych mental status grossly normal Skin no rashes or lesions noted, no wounds and skin turgor normal MDM MDM MDM Narrative Medical decision making narrative: Differential diagnosis is ovarian cyst rupture, ovarian torsion, ectopic , urinary tract infection. Based on pelvic exam history and fact that she is not will obtain ultrasound to assess for torsion. Lab Data Attestation: I reviewed the patient's lab results. Lab results narrative: CBC is unremarkable. Comprehensive metabolic panel is normal. Urine reveals bacteria with no pyuria and macro was negative. Labs: Laboratory Results - last 24 hr 03/27/24 03/27/24 03/27/24 15:20 16:30 17:14 WBC 8.0 RBC 4.71 Hgb 13.8 Hct 42.5 MCV 90.2 MCH 29.3 MCHC 32.5 RDW Std Deviation 44.6 H RDW Coeff of Tulio 13.4 Plt Count 243 MPV 11.1 Immature Gran % (Auto) 0.300 Neut % (Auto) 62.5 Lymph % (Auto) 28.9 Jay % (Auto) 4.8 Eos % (Auto) 2.9 Baso % (Auto) 0.6 Absolute Neuts (auto) 5.0 Absolute Lymphs (auto) 2.31 Nucleated RBC % 0 Sodium 141 Potassium 3.5 Chloride 109 H Carbon Dioxide 25.0 Anion Gap 7 BUN 11 Creatinine 0.91 Estim Creat Clear Calc 79.82 Est GFR (MDRD) Af Amer 90 Est GFR (MDRD) Non-Af 74 BUN/Creatinine Ratio 12.1 Glucose 105 Calcium 9.6 Total Bilirubin 0.30 AST 22 ALT 15 Alkaline Phosphatase 76 Total Protein 7.7 Albumin 4.1 Globulin 3.6 Albumin/Globulin Ratio 1.1 Serum , Qual NEGATIVE NEGATIVE Urine Color Yellow Urine Clarity Sl. Cloudy Urine pH 7.0 Ur Specific [place] 1.015 Urine Protein Negative Urine Glucose (UA) Normal Urine Ketones Negative Urine Occult Blood Negative Urine Nitrite Negative Urine Bilirubin Negative Urine Urobilinogen Normal Ur Leukocyte Esterase Negative Urine RBC 0 SEEN Urine WBC 0 SEEN Ur Squamous Epith Cells 0-5 SEEN Urine Bacteria 2+ Urine Mucus 0 SEEN Radiography Diagnostic Testing: Clinical Impression(s) from Imaging Studies Transvaginal US 03/27/24 17:39 IMPRESSION: Small left ovarian cyst approximately 1.4 x 1.2 x 1.2 cm. No evidence for ovarian torsion. Multiple bilateral ovarian follicles which may be consistent with clinical history of polycystic ovary disease Electronically Signed: Heri Godinez MD at 19:23 EDT Reading Location ID and State: [facility] / [place] Tel , Service support , Treatment and Re-Evaluation :: Patient states she cannot move. Patient was told she be sent home with pain medicine. She was prescribed Naprosyn. She was informed that the exact cause of her symptoms is uncertain. She asked for a work excuse for tomorrow. I informed the patient I do not have a physiologic reason that she cannot work. I recommend that she and I will go about her daily routine and business. Discharge Plan Triage Chief Complaint: Abd Pain ED Provider: Yvon Tracy Dx/Rx/DC Orders Clinical Impression: Pelvic pain, History of polycystic ovaries, Bradycardia Instructions: ED Pelvic Pain, Unknown Cause Prescriptions: New naproxen 500 mg tablet 500 mg PO BID Qty: 14 0RF No Action prenat.vits,justine,[id number] Tablet 1 tab PO DAILY sertraline [Zoloft] 100 mg tablet 150 mg PO DAILY famotidine [Pepcid] 20 mg tablet 20 mg PO BID naproxen 500 mg tablet 500 mg PO BID PRN PRN (Reason: Pain) Qty: 20 0RF Stand Alone Forms: ED Work / School Excuse Primary Care Provider: JENNIFER WERNER Referrals: JENNIFER WERNER [Other] Maria Regan MD [Med Staff - Active Staff] - 3-5 Days if not improving Print Language: Venezuelan Disposition Disposition: Home, Self Care
[2024-03-27 17:44] LABS: Internal QC Validated? YES +Cl - CLEAR BKGD; Pregnancy, Serum, hCG Quali. NEGATIVE Negative
[2024-03-27 17:56] VITALS: BP 120/81; PULSE 74; RESP 18; O2SAT 98
[2024-03-27] MEDS: Ketorolac 15 MG/ML Vial IV (18:15)
[2024-03-27 20:00] VITALS: BP 104/51; PULSE 50; RESP 17; O2SAT 97
[2024-03-27 20:34] VITALS: BP 105/67; PULSE 59; RESP 16; TEMP 36.6; O2SAT 99
== END 2024-03-27 20:35 | disposition home or self-care (01) ==
PROVIDERS: Emergency Provider Emergency Medicine; Visit Provider Emergency Medicine
DX: R10.2 Pelvic and perineal pain (principal); R11.0 Nausea; F17.210 Nicotine dependence, cigarettes, uncomplicated; J45.909 Unspecified asthma, uncomplicated; R00.1 Bradycardia, unspecified; N83.202 Unspecified ovarian cyst, left side; Z87.42 Personal history of other diseases of the female genital tract
CPT/HCPCS: 76830; 80053; 81001; 84703; 85025; 96374; 96375; 99283; A4216; J2405

== ENCOUNTER 2024-03-29 09:44 | Emergency (ER) | payer MEDICAID, SELFPAY ==
[2024-03-29] VITALS (9 sets, daily range): BP systolic 97–110; BP diastolic 34–56; PULSE 52–76; RESP 12–18; TEMP 35.7–37.2; O2SAT 94–99; BMI 28.7
--- NOTE | 2024-03-29 10:11 | MRI_ITS ---
STUDY: MRI LUMBAR SPINE WITHOUT CONTRAST REASON FOR EXAM: Female, 38 years old. Back pain, saddle anesthesia, r/o KELLY/compression TECHNIQUE: Standardized fat and water weighted pulse sequences were obtained in the sagittal and axial planes. COMPARISON: Lumbar spine radiographs 04/14/2011. FINDINGS: T9-T10: (Sagittal only). Normal T10 superior endplate. T9 inferior endplate is not included. Normal disc height, hydration and morphology. Normal central canal. Bilateral intervertebral neural foramina are not included. T10-T11, T11-T12 and T12-L1: Normal endplates. Normal disc height, hydration and morphology. Normal bilateral facet joints. Normal central canal and bilateral lateral recesses. Normal bilateral intervertebral neural foramina. Normal lumbar lordosis. There is no substantial scoliosis. Normal conus medullaris that terminates at the T12-L1 disc space level. L1-2: Normal endplates. Normal disc height, hydration and morphology. Normal bilateral facet joints. Normal central canal and bilateral lateral recesses. Normal bilateral intervertebral neural foramina. L2-3: Normal endplates. Normal disc height, hydration and morphology. Normal bilateral facet joints. Normal central canal and bilateral lateral recesses. Normal bilateral intervertebral neural foramina. L3-4: Normal endplates. Minimal disc space height narrowing. Minimal ventral extradural defect due to posterior bulging annulus. Normal facet joints. Normal central canal and bilateral lateral recesses. Normal bilateral intervertebral neural foramina. L4-5: Normal endplates. Minimal disc space height narrowing. Normal disc hydration. Minimal degenerative retrolisthesis of L4 on L5. No significant facet arthropathy. No obvious pars defects. Normal central canal and bilateral lateral recesses. Normal bilateral intervertebral neural foramina. L5-S1: Normal endplates. Normal disc height, hydration and morphology. Normal bilateral facet joints. Normal central canal and bilateral lateral recesses. Normal bilateral intervertebral neural foramina. Normal visualized sacral ala. Normal visualized paraspinous soft tissue structures. MRI/Spine Lumbar (Routine) IMPRESSION: 1. Limited study due to motion degradation in all of the images. 2. No suspicious lumbar extruded disc fragment, disc protrusion, spinal stenosis or nerve root displacement. 3. Minimal retrolisthesis of L4 on L5 without obvious significant facet arthropathy or any obvious pars defects. Electronically Signed: Lupillo Lynn MD at 15:56 EDT ,
--- NOTE | 2024-03-29 10:12 | ED.VIS.BACK ---
HPI History of Present Illness Chief Complaint: Back Informant: patient Onset/Context/Timing Onset: Days (2-3) Context: Sudden Onset Injury: - (Standing up from a squatting position without heavy lifting) Timing: Continuous Quality: Aching Location: Lumbar, Right Leg and Left Leg Current Severity: Severe Maximum Severity: Severe Worsened by: improves with Movement (Sometimes; position changes do seem to make it worse and sometimes relieve the discomfort temporarily until it gradually returns but it does not go away) Relieved by: Nothing Narrative Narrative: 38-year-old female on day #3 of pain across her low back worse in the middle on the right, started suddenly when she was standing up and she suddenly felt onset of pain. It radiates into both thighs. She has been unable to have a bowel movement since this occurred although she feels the need to. She does have a history of constipation and loose stools that wax and wane, but never issues like this. She is able to urinate. She was seen here 2 days ago for this, she has also been having pelvic cramping that is nonlateralizing that waxes and wanes, in addition to chronic polycystic ovarian pain that she states is different than this cramping that she is not worried about, she had a pelvic ultrasound, it was unremarkable except for small cysts, a negative test, and labs are otherwise unremarkable. She followed up with a nurse practitioner who gave her some baclofen suppositories in case this was pelvic floor muscle-related, and after trying that, she had urinary incontinence which she has never had before. She saw her FIELD SERVICE REPRESENTATIVE today who did a pelvic exam, she was sent here afterwards, the patient states she is looking for answers clearly. When I asked her about her pelvic exam, she states that the majority of it was insensate until they were pushing on her ovaries and she states that was a little sore. [facility] Medical History depression History of premature rupture of membranes (PPROM) History of pre-term labor Polyhydramnios Asthma Anxiety Polyhydramnios affecting IUGR (intrauterine growth restriction) Anxiety Former smoker Hyperemesis Vaginal bleeding during Dichorionic diamniotic twin Rh negative status during Infertility Supervision of high risk , antepartum Marijuana use, episodic Concussion without loss of consciousness Cervical strain COVID-19 Depression Back pain Abnormal bruising Knee pain Chest pain Migraines Fatigue Shoulder pain Home Medications ?Medication ?Instructions ?Recorded ?Last Taken ?Type prenat.vits,justine,ejw-inzy-ohxla 1 tab PO DAILY Check with primary 12/21/21 06/24/22 10:00 History doctor famotidine 20 mg tablet (Pepcid) 20 mg PO BID Check with primary 06/18/22 06/24/22 10:00 History doctor sertraline 100 mg tablet (Zoloft) 150 mg PO DAILY Check with primary 06/18/22 06/24/22 10:00 History doctor naproxen 500 mg tablet 500 mg PO BID PRN PRN Pain #20 tabs 07/28/23 Unknown Rx naproxen 500 mg tablet 500 mg PO BID #14 tabs 03/27/24 Unknown Rx hydrocodone-acetaminophen 5-325mg 1 tab PO Q4H PRN PRN Pain 3 days 03/29/24 Unknown Rx 5mg-325mg #15 TABLETS methocarbamol 750 mg tablet 1,500 mg (2 x 750 mg) PO Q6H 72 03/29/24 Unknown Rx hours #24 tabs Allergy/AdvReac Type Severity Reaction Status Date / Time dicyclomine (From Bentyl) Allergy migraine Verified 03/29/24 09:45 Penicillins Allergy Rash Verified 03/29/24 09:45 Surgical History H/O dilation and curettage Social History adopted: No household members: significant other and children number of children: 2 current occupational status: employed 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; [employer] Smoking Status: Current every day smoker tobacco type: cigarettes alcohol intake: current details: occasionally; not while substance use type: marijuana caffeine: Yes what type of physical activity do you participate in: none seatbelt use: always do you feel safe at home: Yes additional social history: Balj[facility] ED Constitutional Constitutional ED: Denies chills or fever(s) Eyes Eyes: Denies change in vision Cardiovascular Cardiovascular: Denies chest pain Respiratory/Chest Respiratory/Chest: Denies dyspnea Gastrointestinal Gastrointestinal: Reports abdominal pain and constipation; Denies diarrhea, fecal incontinence, melena, nausea or vomiting Genitourinary Genitourinary ED: Reports abdominal discomfort, urinary incontinence and other Details: no urinary retention but unable to have bowel movement Musculoskeletal Musculoskeletal: Reports as per HPI and back pain; Denies neck pain Integumentary Denies rash or wounds Neurologic Neurologic: Reports paresthesias; Denies headache(s) or weakness EXAM Physical Exam Const Vital Signs: 03/29/24 09:46 03/29/24 11:45 03/29/24 13:00 Temperature 99 F Temperature Source Temporal Pulse Rate 74 76 66 Respiratory Rate 14 16 18 Blood Pressure 97/54 L Blood Pressure Mean 68 Blood Pressure Source Blood Pressure Position Blood Pressure Location Pulse Ox 99 97 98 Oxygen Delivery Method Room Air Room Air Room Air 03/29/24 13:52 03/29/24 14:07 03/29/24 14:21 Temperature Temperature Source Pulse Rate 64 52 L 56 L Respiratory Rate 18 18 Blood Pressure 105/34 L 99/48 L 97/44 L Blood Pressure Mean 57 65 61 Blood Pressure Source Monitor Monitor Monitor Blood Pressure Position Supine Supine Supine Blood Pressure Location Right Arm Right Arm Right Arm Pulse Ox 96 96 97 Oxygen Delivery Method Room Air Room Air Room Air 03/29/24 14:30 03/29/24 15:00 Temperature Temperature Source Pulse Rate 57 L 63 Respiratory Rate 18 Blood Pressure 110/35 L 98/36 L Blood Pressure Mean 60 56 Blood Pressure Source Monitor Blood Pressure Position Supine Blood Pressure Location Right Arm Pulse Ox 97 94 Oxygen Delivery Method Room Air Room Air Positive well nourished and well developed General Appearance ED: well developed and NAD HEENT Negative for trauma or tenderness Eyes PERRL and EOMs intact bilaterally Neck full ROM and supple Resp normal respiratory effort GI normal to inspection, nondistended, normoactive bowel sounds, soft to palpation and non-tender Back/Spine normal to inspection Back/Spine Narrative: Straight leg raises: Left leg able to be risen all the way to 45 degrees and a little beyond, causing no significant symptoms, patient states possibly some paresthesias in her left thigh only. Right leg can be risen to about 30 degrees when the patient asks to stop and has increased back pain and pain in the right thigh but nothing below the knee. Lumbar Spine / Lower Back: ROM limited, lumbar spinal tenderness L3 and L4 and paraspinal muscle tenderness right Extremity normal to inspection, full ROM and no pedal edema Neuro oriented x3 and no sensory deficits noted Sensorium / Orientation: alert Motor Exam: strength 5/5 throughout and clonus absent Deep Tendon Reflexes: Rt Patellar (L4): 2+, Lt Patellar (L4): 2+, Rt Ankle (S1): 2+ and Lt Ankle (S1): 2+ Deep Tendon Reflexes Back: Rt Patellar (L4): 2+, Lt Patellar (L4): 2+, Rt Ankle (S1): 2+ and Lt Ankle (S1): 2+ Plantar Reflex: Downgoing: bilateral Psych mental status grossly normal and thought process normal Skin no rashes or lesions noted and no wounds MDM MDM MDM Narrative Medical decision making narrative: Patient does have some findings of cauda equina syndrome with acute onset of pain 2 or 3 days ago, I did review the workup that she had 2 days ago here which was largely unremarkable, I do think a stat emergent MRI is indicated to rule out cauda equina syndrome in this patient. Musculoskeletal etiologies are in the differential without neurologic impairment, however she does have neurologic symptoms given the need for an emergent MRI. This was performed. I reviewed the images and the result, I agree with it. It is basically normal except for mild anterolisthesis distal lumbar spine. Not likely causing her acute pain. Spoke with Dr. Ward and he agrees with this, patient does not need to follow-up with him based on these findings. Given her symptoms I think this is more likely to be muscle pain and spasm. Possible she could be having some pelvic floor muscle involvement as well causing some of these perineal symptoms. At this time going to put her on NSAIDs and muscle relaxers and encourage outpatient follow-up. History & Record Review Discussion w/independent historian: Patient (only historian today) Additional record(s) reviewed:: Prior ED visit Radiography Diagnostic Testing: Clinical Impression(s) from Imaging Studies Lumbar Spine MRI 03/29/24 10:11 IMPRESSION: 1. Limited study due to motion degradation in all of the images. 2. No suspicious lumbar extruded disc fragment, disc protrusion, spinal stenosis or nerve root displacement. 3. Minimal retrolisthesis of L4 on L5 without obvious significant facet arthropathy or any obvious pars defects. Electronically Signed: Lupillo Lynn MD at 15:56 EDT Reading Location ID and State: [facility] / [place] , Service support , Management Discussion w/another healthcare provider: Rn Occupational (Spine surgery Ed) and Radiologist (In agreement with obtaining stat MRI) Discharge Plan Triage Chief Complaint: Back ED Provider: Al Hassan Dx/Rx/DC Orders Clinical Impression: Musculoskeletal back pain Instructions: ED Back Pain (Acute or Chronic) Prescriptions: New methocarbamol 750 mg tablet 1,500 mg PO Q6H 3 Days Qty: 24 0RF hydrocodone-acetaminophen 5-325 mg tablet 1 tab PO Q4H PRN PRN (Reason: Pain) 3 Days Qty: 15 0RF No Action prenat.vits,justine,nhn-oldx-xivnn Tablet 1 tab PO DAILY sertraline [Zoloft] 100 mg tablet 150 mg PO DAILY famotidine [Pepcid] 20 mg tablet 20 mg PO BID naproxen 500 mg tablet 500 mg PO BID PRN PRN (Reason: Pain) Qty: 20 0RF naproxen 500 mg tablet 500 mg PO BID Qty: 14 0RF Primary Care Provider: JENNIFER EMMANUEL MD Referrals: JENNIFER EMMANUEL MD [Other] Activity Restrictions/Additional Instructions: Possible that some of the other symptoms could be caused by pelvic floor muscle issues, which may or may not explain some of the issues in your groin. Difficult diagnosis, we do not have testing for this in the ED. Most importantly, no acute issue with spinal cord or nerves in your back, so treat your current pain as muscle/tendon-related. Do not take the hydrocodone prescription pain medication while working or driving. Continue to take anti-inflammatory such as previously prescribed naproxen or [id number]-[id number] ibuprofen. Print Language: Korean Disposition Disposition: Home, Self Care
[2024-03-29] MEDS: Ondansetron 4 MG/2 ML Vial IV (11:32)
[2024-03-29] MEDS: Morphine 4 MG/ML Syringe IV (11:32)
[2024-03-29] MEDS: LORazepam 2 MG/ML Syringe 1 MG IV (13:38)
[2024-03-29] MEDS: Ketorolac 30 MG/ML Syringe IV (15:02)
[2024-03-29] MEDS: Orphenadrine 60 MG/2 ML Ampul IV (15:03)
== END 2024-03-29 17:12 | disposition home or self-care (01) ==
PROVIDERS: Emergency Provider Emergency Medicine; Visit Provider Emergency Medicine
DX: M54.50 Low back pain, unspecified (principal); M43.16 Spondylolisthesis, lumbar region; F17.210 Nicotine dependence, cigarettes, uncomplicated; E28.2 Polycystic ovarian syndrome; J45.909 Unspecified asthma, uncomplicated; R20.2 Paresthesia of skin; G89.29 Other chronic pain; R10.2 Pelvic and perineal pain
CPT/HCPCS: 72148; 87070; 87205; 96374; 96375; 99283; A4216; J2405

== ENCOUNTER → 2024-03-29 | Outpatient (CLI) | payer MEDICAID, SELFPAY | END | disposition home or self-care (01) | LOC: LABSPEC 11:13 | PROVIDERS: Referring Provider Nurse Practitioner Women's Health; Visit Provider Nurse Practitioner Women's Health | DX: R10.2 Pelvic and perineal pain (principal) | CPT/HCPCS: 87070; 87205 ==

== ENCOUNTER → 2024-10-11 | Outpatient (CLI) | payer MEDICAID, SELFPAY ==
[2024-10-11 15:23] LABS: Absolute Lymphocyte Count 2.58 X10^3/uL (0.83-4.51); Absolute Neutrophil Count 5.4 X10^3/uL (2.0-7.7); Basophil# 0.07 X10^3/uL; Basophil% 0.8 % (0-1); Eosinophil# 0.19 X10^3/uL; Eosinophils% 2.2 % (0-5); Hematocrit 40.5 % (37-47); Hemoglobin 13.3 g/dL (12.0-15.0); Lymphocyte # 2.58 X10^3/ul (0.83-4.51); Lymphocyte % 29.6 % (19-41); Mean Corp Hgb Conc 32.8 g/dL (32-36); Mean Corpuscular Hgb 29.3 pg (27.0-32.0); Mean Corpuscular Volume 89.2 fL (81-99); Mean Platelet Vol. 10.4 fl (6.2-12.0); Monocyte# 0.42 X10^3/uL; Monocyte% 4.8 % (0-10); NRBC Flagged by Analyzer 0 % (0-5); Neutrophil # 5.43 X10^3/uL (2.7-7.7); Neutrophil % 62.3 % (47-70); Platelet Count 232 K/mm3 (150-450); RBC Distribution Width CV 14.3 % (11.6-14.6); RBC Distribution Width SD 46.2 fl (35.1-43.9); Red Blood Count 4.54 M/mm3 (4.2-5.4); White Blood Count 8.7 K/mm3 (4.4-11.0)
[2024-10-11 15:54] LABS: ALB/GLOB Ratio 0.9 RATIO (0.9-2.4); AST(SGOT) 17 U/L (15-37); Alanine Aminotransfer ALT/SGPT 23 U/L (13-56); Albumin, Serum 3.7 g/dL (3.2-5.0); Alkaline Phosphatase 67 U/L (45-117); Anion Gap 6 (5-15); BUN 15 mg/dL (7-18); BUN/Creat Ratio 23.5 RATIO (10-20); Calcium,Total 9.1 mg/dL (8.5-10.1); Chloride 106 mmol/L (98-107); Creatinine, Serum 0.64 mg/dL (0.55-1.02); EST Glomerular Filtration Rate 111 mL/min (>60); Est Glom Filt Rate - Afr Amer 135 mL/min (>60); Follicle Stimulating Hormone 5.6 mIU/mL; Globulin 3.9 g/dL (2.2-4.2); Glucose 98 mg/dL (74-106); Luteinizing Hormone 8.4 mIU/mL; Potassium 3.8 mmol/L (3.5-5.1); Protein, Total 7.6 g/dL (6.4-8.2); Sodium Level 138 mmol/L (136-145); T4 Free Direct 0.75 ng/dL (0.76-1.46)
[2024-10-15 15:30] LABS: Hepatitis B Surface Antigen Non-Reactive (Nonreactive); Hepatitis C Antibody Non-Reactive (Nonreactive); Syphilis Antibodies Non-reactive; Vitamin D,25 Hydroxy 11.7 ng/mL
[2024-10-15 21:07] LABS: Chlamydia By Nucleic Acid AMP Negative (Negative); Gonococcus By Nucleic Acid AMP Negative (Negative)
[2024-10-16 11:07] LABS: HPV APTIMA, High Risk Negative (Negative)
[2024-10-16 22:09] LABS: HIV - WCH Non-Reactive (Nonreactive)
== END | disposition home or self-care (01) ==
LOC: BWCLAB 14:56
PROVIDERS: Referring Provider Nurse Practitioner Family; Visit Provider Nurse Practitioner Family
DX: Z12.4 Encounter for screening for malignant neoplasm of cervix (principal); N89.8 Other specified noninflammatory disorders of vagina; N91.2 Amenorrhea, unspecified
CPT/HCPCS: 36415; 80053; 82306; 82670; 83001; 83002; 84439; 84443; 85025; 86695; 86696; 86703; 86780; 86803; 87070; 87205; 87340; 87491; 87591; 87624; 88175; G0145

== ENCOUNTER 2024-11-22 15:14 | Emergency (ER) | payer MEDICAID, SELFPAY ==
[2024-11-22 15:16] VITALS: BP 108/55; PULSE 64; RESP 16; TEMP 36.6; O2SAT 100; BMI 30.1
[2024-11-22 17:15] VITALS: BP 116/79
--- NOTE | 2024-11-22 17:49 | EDS_ITS ---
HPI HPI - Female History of Present Illness Chief Complaint: Female C/O Narrative Narrative: 39-year-old female presents with right lower quadrant abdominal pain and pelvic pain that she has had since Tuesday of last week. This was approximately 5 days ago. She relates history that she had right lower quadrant abdominal pain similar to ovarian cyst rupture which she has had in the past. That resolved. A day or 2 ago, she attempted to have intercourse with her significant other, but she states that immediately after penetration, she had sharp pain in her pelvis. The pain is now radiating up past her abdomen. She is currently constipated. She denies any fevers or chills, no dysuria. She also experienced vaginal bleeding with this that has resolved. She may have a pink tinge when she wipes currently but she denies any gross hematuria, no other bleeding diathesis. She states she is never bled after intercourse. Since then, she has been having lower pelvic pain right greater than left and radiating upward as well. She denies any exacerbating or alleviating factors. She has had abnormal menses in the past and completed her last menses 2 weeks ago. She states that there are times when she would not have menses for few months and then have a regular menses and then not have it again for a few more months. [facility] Medical History depression History of premature rupture of membranes (PPROM) History of pre-term labor Polyhydramnios Asthma Anxiety Polyhydramnios affecting IUGR (intrauterine growth restriction) Anxiety Former smoker Hyperemesis Vaginal bleeding during Dichorionic diamniotic twin Rh negative status during Infertility Supervision of high risk , antepartum Marijuana use, episodic Concussion without loss of consciousness Cervical strain COVID-19 Depression Back pain Abnormal bruising Knee pain Chest pain Migraines Fatigue Shoulder pain Home Medications ?Medication ?Instructions ?Recorded ?Last Taken ?Type sertraline 100 mg tablet (Zoloft) 150 mg PO DAILY Chec k with primary 06/18/22 06/24/22 10:00 History doctor lithium carbonate 300 mg 250 mg PO DAILY 11/22/24 Unk nown History tablet,extended release Allergy/AdvReac Type Severity Reaction Status Date / Time dicyclomine (From Bentyl) Allergy migraine Verified 02/20/25 15:19 Penicillins Allergy Rash Verified 02/20/25 15:19 Family History no significant family his Surgical History H/O dilation and curettage Social History adopted: No household members: significant other and children number of children: 2 current occupational status: employed 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 Cardiovascular: No chest pain. No palpitations. No pedal edema. Respiratory: No cough, no shortness of breath. Abdominal: Bilateral lower quadrant abdominal pain. No nausea. No vomiting. Genitourinary: No dysuria. No hematuria. Vaginal bleeding, resolved. Positive pelvic pain right greater than left. Musculoskeletal: No myalgias. No arthralgias. Neurologic: No headaches. No dizziness. No lightheadedness. Skin: No rash. No change in color. Psychiatric: No depression. No anxiety. EXAM Physical Exam Narrative Exam Narrative: Afebrile. Vital signs noted. Nontoxic-appearing. Cardiovascular examination reveals a regular rate and rhythm. Lungs are clear to auscultation bilaterally. The abdomen is soft with tenderness in the bilateral lower quadrants right greater than left. No guarding or rebound. Positive bowel sounds. Neurological examination nonfocal and nonlateralizing. Patient declines pelvic examination. Const Vital Signs: 11/22/24 15:16 11/22/24 17:15 11/22/24 19:00 Temperature 97.9 F Temperature Source Oral Pulse Rate 64 61 Respiratory Rate 16 Blood Pressure 108/55 L 116/79 103/37 L Blood Pressure Mean 72 91 59 Pulse Ox 100 97 Oxygen Delivery Method Room Air Room Air 11/22/24 21:00 Temperature Temperature Source Pulse Rate 63 Respiratory Rate 17 Blood Pressure 105/59 L Blood Pressure Mean 74 Pulse Ox 98 Oxygen Delivery Method Room Air MDM MDM MDM Narrative Medical decision making narrative: Differential diagnosis includes but not limited to acute appendicitis versus ovarian cyst rupture versus ovarian torsion versus ureterolithiasis. Regarding her vaginal bleeding, she could have had a vaginal tear, and currently she is declining pelvic examination stating that her vaginal bleeding is resolving. I have lower concern for ovarian torsion or ectopic . Comprehensive workup was pursued. I reviewed her laboratory work and she has normal white count 9.4 with hemoglobin normal at 13.7, hematocrit 41.2, platelet count normal at 307. CMP is remarkable for chloride of 108 which I think is nonspecific, glucose normal at 82, while AST is elevated at 42 I think this is nonspecific as she has normal ALT of 20 and alk phos 60. Serum is negative so I doubt ectopic . Urinalysis negative for infection with 0-5 WBCs and 0-5 RBCs. I do not feel antibiotics are indicated. I reviewed the radiology report of the CT of the abdomen and pelvis which shows heterogeneity in the uterus which could be consistent with fibroids. Additionally, there are prominent ovaries right greater than left. Patient is still deferring pelvic examination but is acceptable to pelvic ultrasound which is recommended by radiology. I feel this would be beneficial in ruling out ovarian torsion. Patient requested medication for anxiety as she usually takes 0.25 mg Xanax as needed. She was administered 0.5 mg of Ativan intravenously in anticipation of obtaining the pelvic ultrasound. I reviewed the radiology report of the ultrasound of the pelvis, which did show preserved blood flow to the bilateral ovaries. She has multiple small cysts on her ovaries consistent with polycystic ovarian disease. She states she has had that diagnosis for quite some time. At this point in time, prior to discharge she will be given 1 oxycodone tablet, but I do feel that she should follow-up with her PIANO REGULATOR regarding her dyspareunia and pelvic pain. I do not feel she requires admission, and she was told the narcotic pain medication should come from her PIANO REGULATOR or primary care provider. She will continue fuyj-yns-uwhplci medications for analgesia. Disposition is discharged home in stable condition. History & Record Review Discussion w/independent historian: Patient Lab Data Attestation: I reviewed the patient's lab results. Labs: Laboratory Results - last 24 hr 11/22/24 11/22/24 18:05 18:40 WBC 9.4 RBC 4.63 Hgb 13.7 Hct 41.2 MCV 89.0 MCH 29.6 MCHC 33.3 RDW Std Deviation 44.4 H RDW Coeff of Tulio 13.7 Plt Count 307 MPV 11.3 Immature Gran % (Auto) 0.300 Neut % (Auto) 56.1 Lymph % (Auto) 34.6 Randall % (Auto) 5.2 Eos % (Auto) 3.2 Baso % (Auto) 0.6 Absolute Neuts (auto) 5.2 Absolute Lymphs (auto) 3.24 Nucleated RBC % 0 Sodium 136 Potassium 4.5 Chloride 108 H Carbon Dioxide 22.0 Anion Gap 7 BUN 15 Creatinine 0.67 Estim Creat Clear Calc 113.04 Est GFR (MDRD) Af Amer 128 Est GFR (MDRD) Non-Af 106 BUN/Creatinine Ratio 22.5 H Glucose 82 Calcium 9.1 Total Bilirubin 0.30 AST 42 H ALT 20 Alkaline Phosphatase 60 Total Protein 7.8 Albumin 3.6 Globulin 4.2 Albumin/Globulin Ratio 0.9 Serum , Qual NEGATIVE Urine Color Yellow Urine Clarity Clear Urine pH 6.0 Ur Specific Langford 1.025 Urine Protein 15 H Urine Glucose (UA) Normal Urine Ketones Negative Urine Occult Blood 10 H Urine Nitrite Negative Urine Bilirubin Negative Urine Urobilinogen Normal Ur Leukocyte Esterase Negative Urine RBC 0 SEEN Urine WBC 0-5 SEEN Ur Squamous Epith Cells 0-5 SEEN Urine Bacteria 1+ Urine Mucus 1+ Radiography Diagnostic Testing: Clinical Impression(s) from Imaging Studies Abdomen/Pelvis CT 11/22/24 17:49 IMPRESSION: 1. Heterogeneity in the uterus which may be due to fibroids. Bilateral prominent ovaries, rhoem-qhixofs-ghgr-left. Consider pelvic ultrasound for further evaluation. 2. Hepatic steatosis. One or more dose reduction techniques were used (e.g., Automated exposure control, adjustment of the mA and/or kV according to patient size, use of iterative reconstruction technique). Reading Location: [facility] Transvaginal US 11/22/24 20:24 IMPRESSION: Numerous ovarian cysts in keeping with polycystic ovarian morphology. Reading Location: [id number] Discharge Plan Triage Chief Complaint: Female C/O ED Provider: Lupillo Asif Dx/Rx/DC Orders Clinical Impression: Pelvic pain, Abdominal pain, Dyspareunia in female Instructions: ED Abdominal Pain Unkn Cause Fem, ED Pain, Acute, Uncertain Cause, ED Pelvic Pain, Unknown Cause Prescriptions: No Action sertraline [Zoloft] 100 mg tablet 150 mg PO DAILY lithium carbonate 300 mg tablet extended release 250 mg PO DAILY Primary Care Provider: Maria Regan Referrals: Maria Regan MD [Primary Care Provider] - 3-5 Days if not improving Activity Restrictions/Additional Instructions: Follow-up with your PIANO REGULATOR next week as scheduled. You had a negative CT and ultrasound today, but you have multiple cysts on her ovaries consistent with her diagnosis of polycystic ovarian disease. Print Language: Indonesian Disposition Disposition: Home, Self Care
--- NOTE | 2024-11-22 17:49 | CT_ITS ---
PROCEDURE: ABDOMEN/PELVIS W IV CONT ONLY REASON FOR EXAM: Right lower quadrant abdominal pain TECHNIQUE: Abdomen and pelvis CT with intravenous contrast. COMPARISON: 08/19/2019 FINDINGS: Lung bases: Clear Liver: Diffuse fatty infiltration. Gallbladder: Unremarkable. Spleen: Normal size. Pancreas: Normal size without evidence of mass surrounding inflammation or ductal dilation. Adrenals: Unremarkable. Kidneys: Normal renal sizes. No hydronephrosis. Bladder: Unremarkable. Reproductive Organs: Heterogeneous uterus. Prominent bilateral ovaries yjkft-myvpvco-ioua-left with multiple cystic foci. The right ovary measures 5.1 x 2.0 cm and the left measures 3.2 by 2.0 cm. Bowel: No bowel obstruction. Appendix: Normal. Lymph nodes: No suspicious lymph node enlargement. Vasculature: Major vascular structures are unremarkable. Peritoneum / Retroperitoneum: No ascites. No free air. Bones: Unremarkable. CT/Abdomen/Pelvis W IV Cont ONLY IMPRESSION: 1. Heterogeneity in the uterus which may be due to fibroids. Bilateral promin ent ovaries, yjsrb-[id number]-aird-left. Consider pelvic ultrasound for further evaluation. 2. Hepatic steatosis. One or more dose reduction techniques were used (e.g., Automated exposure contr ol, adjustment of the mA and/or kV according to patient size, use of iterative reconstruction technique). Reading Location: [facility]
[2024-11-22] MEDS: Morphine 4 MG/ML Syringe IV (18:15)
[2024-11-22] MEDS: Ondansetron 4 MG/2 ML Vial IV (18:15)
[2024-11-22] MEDS: 0.9% Normal Saline (1000mL) 1,000 ML 999 ML IV (18:17)
[2024-11-22 18:36] LABS: Absolute Lymphocyte Count 3.24 X10^3/uL (0.83-4.51); Absolute Neutrophil Count 5.2 X10^3/uL (2.0-7.7); Basophil# 0.06 X10^3/uL; Basophil% 0.6 % (0-1); Eosinophils% 3.2 % (0-5); Hematocrit 41.2 % (37-47); Hemoglobin 13.7 g/dL (12.0-15.0); Lymphocyte # 3.24 X10^3/ul (0.83-4.51); Lymphocyte % 34.6 % (19-41); Mean Corp Hgb Conc 33.3 g/dL (32-36); Mean Corpuscular Hgb 29.6 pg (27.0-32.0); Mean Platelet Vol. 11.3 fl (6.2-12.0); Monocyte# 0.49 X10^3/uL; Monocyte% 5.2 % (0-10); NRBC Flagged by Analyzer 0 % (0-5); Neutrophil # 5.24 X10^3/uL (2.7-7.7); Neutrophil % 56.1 % (47-70); Platelet Count 307 K/mm3 (150-450); RBC Distribution Width CV 13.7 % (11.6-14.6); RBC Distribution Width SD 44.4 fl (35.1-43.9); Red Blood Count 4.63 M/mm3 (4.2-5.4); White Blood Count 9.4 K/mm3 (4.4-11.0)
[2024-11-22 18:46] LABS: Internal QC Validated? YES +Cl - CLEAR BKGD; Pregnancy, Serum, hCG Quali. NEGATIVE Negative
[2024-11-22 19:00] VITALS: BP 103/37; PULSE 61; O2SAT 97
[2024-11-22 19:03] LABS: Color, Urine Yellow (Yellow); Glucose, Dipstick Normal (Normal); Ketone-Dipstick Negative (Negative); Leukocyte Esterase-Dipstick Negative /ul (Negative); Nitrite-Dipstick Negative (Negative); Occult Blood-Urine 10 /ul (Negative); Protein-Dipstick 15 mg/dl (Negative); Specific Gravity, Urine 1.025 (1.002-1.030); Urine Bilirubin Dipstick Negative (Negative); Urine Clarity Clear (Clear); Urine Urobilinogen Normal (Normal)
[2024-11-22 19:09] LABS: Bacteria 1+ /hpf (None Seen); Mucous, Urine 1+ /hpf (<or=2+); Red Blood Cells-Urine 0 SEEN /hpf (0-5); Squamous Epithelial Cells - UA 0-5 SEEN /hpf (5-10); White Blood Cells 0-5 SEEN /hpf (0-5)
[2024-11-22 19:15] LABS: ALB/GLOB Ratio 0.9 RATIO (0.9-2.4); AST(SGOT) 42 U/L (15-37); Alanine Aminotransfer ALT/SGPT 20 U/L (13-56); Albumin, Serum 3.6 g/dL (3.2-5.0); Alkaline Phosphatase 60 U/L (45-117); Anion Gap 7 (5-15); BUN 15 mg/dL (7-18); BUN/Creat Ratio 22.5 RATIO (10-20); Calcium,Total 9.1 mg/dL (8.5-10.1); Chloride 108 mmol/L (98-107); Creatinine, Serum 0.67 mg/dL (0.55-1.02); EST Glomerular Filtration Rate 106 mL/min (>60); Est Glom Filt Rate - Afr Amer 128 mL/min (>60); Estimated Creatinine Clearance 113.04 ml/min; Globulin 4.2 g/dL (2.2-4.2); Glucose 82 mg/dL (74-106); Potassium 4.5 mmol/L (3.5-5.1); Protein, Total 7.8 g/dL (6.4-8.2); Sodium Level 136 mmol/L (136-145)
--- NOTE | 2024-11-22 20:24 | US_ITS ---
PROCEDURE: TRANSVAGINAL NON- REASON FOR EXAM: Pelvic pain; history of PCOS. TECHNIQUE: Transvaginal pelvic ultrasound COMPARISON: None. FINDINGS: Measurements: Uterus: 10.1 x 6.3 x 4.6 Endometrial Thickness: 4 Right Ovary: 4.4 x 2.8 x 2.9 Left Ovary: 4.4 x 2.6 x 3.0 Uterus: Normal size, myometrial echotexture, and contour. Small nabothian cyst is present. Endometrium: Unremarkable. Right ovary: Numerous small follicles. Preserved vascular flow. Left ovary: Numerous small follicles. Preserved vascular flow. No large pelvic mass identified. US/Transvaginal Non- IMPRESSION: Numerous ovarian cysts in keeping with polycystic ovarian morphology. Reading Location: [place] [id number]
[2024-11-22] MEDS: LORazepam 2 MG/ML Syringe 0.5 MG IV (20:31)
[2024-11-22 21:00] VITALS: BP 105/59; PULSE 63; RESP 17; O2SAT 98
[2024-11-22] MEDS: oxyCODONE 5 MG Tablet PO (22:33)
[2024-11-22 22:37] VITALS: BP 108/71; PULSE 65; RESP 17; TEMP 36.9; O2SAT 99
== END 2024-11-22 22:38 | disposition home or self-care (01) ==
PROVIDERS: Emergency Provider Emergency Medicine; PCP Obstetrics & Gynecology; Visit Provider Emergency Medicine
DX: R10.2 Pelvic and perineal pain (principal); N94.10 Unspecified dyspareunia; J45.909 Unspecified asthma, uncomplicated; Z87.891 Personal history of nicotine dependence
CPT/HCPCS: 74177; 76830; 80053; 81001; 84703; 85025; 96361; 96374; 96375; 99282; Q9967; A4216; J2405

== ENCOUNTER → 2025-02-08 | Outpatient (CLI) | payer MEDICAID, SELFPAY ==
--- NOTE | 2025-02-08 12:30 | US_ITS ---
PROCEDURE: PELVIC W/ TRANSVAGINAL 02/08/2025 REASON FOR EXAM: PAIN WITH IUD TECHNIQUE: Transabdominal and transvaginal pelvic ultrasound FINDINGS: Transabdominal and transvaginal imaging The uterus measures 9.6 x 5.7 x 4.8 cm and appears somewhat heterogeneous but no discrete fibroid is identified. Intrauterine device is identified and appears centrally located at the fundal portion of the uterus. Endometrial stripe 6 mm. Cervix appears within limits. Right ovary measures 4 x 4.7 x 1.7 cm and appears within limits. The left ovary measures 4.4 x 4 x 2.5 cm and appears within limits. No evidence of adnexal mass. No free fluid seen. Bladder volume 353 cc US/Pelvic w/ Transvaginal IMPRESSION: Study appears within limits as above. Reading Location: [id number]
== END | disposition home or self-care (01) ==
LOC: OPUS 12:28
PROVIDERS: Referring Provider Obstetrics & Gynecology; Visit Provider Obstetrics & Gynecology
DX: R10.2 Pelvic and perineal pain (principal); Z97.5 Presence of (intrauterine) contraceptive device
CPT/HCPCS: 76830; 76856

== ENCOUNTER 2025-02-18 08:28 | Emergency (ER) | payer MEDICAID, SELFPAY ==
[2025-02-18 08:29] VITALS: BP 104/44; PULSE 68; RESP 16; TEMP 36.6; O2SAT 99; BMI 28.8
--- NOTE | 2025-02-18 08:53 | RAD_ITS ---
EXAM: XR Lumbosacral Spine, 4 or 5 Views CLINICAL INDICATION: BACK PAIN BILATERAL TECHNIQUE: Frontal, lateral and bilateral oblique views of the lumbar spine. COMPARISON: No relevant prior studies available. FINDINGS: VERTEBRAE: Mild facet arthropathy of L4-S1. Normal alignment. No acute fracture. SACRUM/COCCYX: Unremarkable as visualized. No acute fracture. DISC SPACES: No acute findings. No significant narrowing. SOFT TISSUES: Unremarkable. RAD/L/S Spine Min 4 Views IMPRESSION: No acute fracture. Reading Location[facility]
--- NOTE | 2025-02-18 09:02 | EX.ED.DYSGE1 ---
HPI History of Present Illness Chief Complaint: Other, Pain/Inj Narrative Narrative: Patient is a 39-year-old female past medical history of asthma, depression, migraines who presented to the emergency department chief complaint of back pain. Patient states that over the last several weeks she has done a lot of moving heavy items as she was moving to a new house. 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 She states that progressively over the last few days the pain in her lower back had been progressing she states that it shoots down both of her legs. She states that she has been urinating normally for self and having normal bowel movements. Patient states that she has been taking naproxen [id number] as well as rotating Tylenol and there without much relief. [facility] Medical History Dyspareunia depression History of premature rupture of membranes (PPROM) History of pre-term labor Polyhydramnios Asthma Anxiety Polyhydramnios affecting IUGR (intrauterine growth restriction) Anxiety Former smoker Hyperemesis Vaginal bleeding during Dichorionic diamniotic twin Rh negative status during Infertility Supervision of high risk , antepartum Marijuana use, episodic Concussion without loss of consciousness Cervical strain COVID-19 Depression Back pain Abnormal bruising Knee pain Chest pain Migraines Fatigue Shoulder pain Home Medications ?Medication ?Instructions ?Recorded ?Last Taken ?Type sertraline 100 mg tablet (Zoloft) 150 mg PO DAILY Check with primary 06/18/22 06/24/22 10:00 History doctor lithium carbonate 300 mg 250 mg PO DAILY 11/22/24 Unknown History tablet,extended release cyclobenzaprine 10 mg tablet 10 mg PO TID PRN muscle spasm #30 01/07/25 Unknown Rx tabs naproxen 500 mg tablet 500 mg PO BID PRN pain #30 tabs 01/07/25 Unknown Rx cyclobenzaprine 10 mg tablet 10 mg PO TID PRN muscle spasm #30 01/30/25 Unknown Rx tabs Allergy/AdvReac Type Severity Reaction Status Date / Time dicyclomine (From Bentyl) Allergy migraine Verified 02/18/25 08:28 Penicillins Allergy Rash Verified 02/18/25 08:28 Surgical History delivery delivered H/O dilation and curettage Social History adopted: No household members: significant other and children number of children: 2 current occupational status: employed 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; [employer] Smoking Status: Former smoker alcohol intake: current details: occasionally; not while substance use type: marijuana caffeine: Yes what type of physical activity do you participate in: none seatbelt use: always do you feel safe at home: Yes additional social history: Baljinder [facility] ROS ED ROS Narrative Constitutional: Denies any fevers, chills, headaches colitis, dizziness Eyes: Denies change in vision double vision blurry vision Cardiovascular: Denies chest pain or palpitations Respiratory: Denies coughing wheezing shortness of breath Abdomen: Denies abdominal pain nausea vomit diarrhea states that she is having normal bowel movements for herself : States that she is urinating normally for self denies any painful urination hematuria or polyuria Neurological: Denies numbness, scum tingling Musculoskeletal: Complains of back pain as noted above Skin: Denies any rashes or lesions EXAM Physical Exam Narrative Exam Narrative: General: Patient lying in bed rest comfortably did not appear to be in acute distress Head: Atraumatic, normocephalic Eyes: PERRL bilaterally, EOMI bilateral, no conjunctival injection noted Neck: Soft, supple, trachea midline Cardiovascular: Regular in rhythm no murmurs gallops rubs noted Respiratory: Clear to auscultation bilaterally Abdomen: Soft, nondistended, nontender to palpation Musculoskeletal: No tenderness palpation midline of thoracolumbar spine Extremities: +5/5 strength noted in the bilateral upper and lower extremity, radial pulses +2/4 in the bilateral extremities, no pedal edema no exam Neurological: Patient follow commands that she was at [facility] years 2024 Skin: Warm, dry, intact no rashes lesions noted Const Vital Signs: 02/18/25 08:29 02/18/25 09:34 Temperature 97.9 F Temperature Source Oral Pulse Rate 68 Respiratory Rate 16 Respiratory Pattern Normal Blood Pressure 104/44 L Blood Pressure Mean 64 Pulse Ox 99 Oxygen Delivery Method Room Air MDM MDM MDM Narrative Medical decision making narrative: Patient is a 39-year-old female who presented to the emergency department chief complaint of back pain. On the differential diagnosis includes but not limited to musculoskeletal strain, herniated disc, compression fracture, spinal epidural abscess although feel this less likely as she states that she has never had any history of IV drug use. Once workup is obtained reviewed she will be reevaluated. Patient's will be given Norflex and Toradol. Patient's x-ray reviewed by myself and by radiology of her lumbar spine which did not show any acute fractures. Reevaluation patient patient feeling better she would like to go home at this point time. Patient states that she has cyclobenzaprine at home that she can use and does not need a prescription for this. She is advised to continue to rotate Tylenol and ibuprofen [id number]. She is vies follow-up with primary care physician return with worsening symptoms and concerns. She is agreeable to plan all question concerns answered she is discharged home in stable condition. Radiography Diagnostic Testing: Clinical Impression(s) from Imaging Studies Lumbar Spine X-Ray 02/18/25 08:53 IMPRESSION: No acute fracture. Reading Location: [facility] Discharge Plan Triage Chief Complaint: Other, Pain/Inj Other Complaint: Back ED Provider: Kevin Heart Dx/Rx/DC Orders Clinical Impression: Back pain, Musculoskeletal strain Prescriptions: No Action cyclobenzaprine 10 mg tablet 10 mg PO TID PRN (Reason: muscle spasm) Qty: 30 2RF naproxen 500 mg tablet 500 mg PO BID PRN (Reason: pain) Qty: 30 2RF Rx Instructions: administer with food or milk sertraline [Zoloft] 100 mg tablet 150 mg PO DAILY lithium carbonate 300 mg tablet extended release 250 mg PO DAILY cyclobenzaprine 10 mg tablet 10 mg PO TID PRN (Reason: muscle spasm) Qty: 30 2RF Primary Care Provider: Grant Nazario Referrals: [facility] Doctor,Out of [Non-Staff] - Activity Restrictions/Additional Instructions: Follow-up with your doctor in outpatient setting. Return for worsening symptoms or concerns. Rotate Tylenol and ibuprofen [id number] when you do this you can take something every 3 hours. Use the Flexeril/cyclobenzaprine that you have at home for spasms. Do not operate anything under the influence of this medication as it will make you sleepy and drowsy. Print Language: Armenian Disposition Disposition: Home, Self Care
[2025-02-18] MEDS: Ketorolac 30 MG/ML Syringe IM (09:11)
[2025-02-18] MEDS: Orphenadrine 60 MG/2 ML Ampul IM (09:12)
[2025-02-18 10:04] VITALS: BP 112/45; PULSE 53; RESP 18; TEMP 36.8; O2SAT 98
== END 2025-02-18 10:13 | disposition home or self-care (01) ==
PROVIDERS: Emergency Provider Emergency Medicine; PCP Family Medicine; Visit Provider Emergency Medicine
DX: S39.012A Strain of muscle, fascia and tendon of lower back, initial encounter (principal); Z87.891 Personal history of nicotine dependence; J45.909 Unspecified asthma, uncomplicated; X50.0XXA Overexertion from strenuous movement or load, initial encounter
CPT/HCPCS: 72110; 96372; 99283

== ENCOUNTER 2025-03-06 10:01 | Emergency (ER) | payer MEDICAID, SELFPAY ==
[2025-03-06 10:02] VITALS: BP 114/75; PULSE 63; RESP 18; TEMP 35.8; O2SAT 98; BMI 29.2
[2025-03-06] MEDS: HYDROcodone Bitartrate/Apap 5/325 Tablet PO (10:42)
[2025-03-06] MEDS: Ketorolac 60 MG/2 ML Vial IM (10:42)
[2025-03-06] MEDS: Ondansetron ODT 4 MG Tablet 8 MG PO (10:42)
[2025-03-06 11:09] LABS: Red Blood Cells-Urine 0 SEEN /hpf (0-5)
[2025-03-06 11:11] LABS: Color, Urine Yellow (Yellow); Glucose, Dipstick Normal (Normal); Ketone-Dipstick 5 mg/dl (Negative); Leukocyte Esterase-Dipstick 25 /ul (Negative); Nitrite-Dipstick Negative (Negative); Occult Blood-Urine 10 /ul (Negative); Protein-Dipstick 30 mg/dl (Negative); Urine Clarity Clear (Clear); Urine Urobilinogen Normal (Normal)
[2025-03-06 11:12] LABS: Urine Bilirubin Dipstick 1 mg/dL (Negative)
[2025-03-06 11:23] LABS: Bacteria 1+ /hpf (None Seen); Internal QC Validated? YES +Cl - CLEAR BKGD; Mucous, Urine 1+ /hpf (<or=2+); Pregnancy, Urine Negative Negative; Squamous Epithelial Cells - UA 0-5 SEEN /hpf (5-10); White Blood Cells 0-5 SEEN /hpf (0-5)
--- NOTE | 2025-03-06 11:23 | ED.VIS.GI ---
HPI HPI - GI History of Present Illness Chief Complaint: Abd Pain Informant: patient Narrative Narrative: 39-year-old female has been having pelvic pain off and on for months. She states she had an IUD placed several weeks ago as a result of this hoping it would help the pain but has been making it worse and so she has another appointment with her application coordinator in 2 weeks but was in more severe pain this morning. Is not lateralizing, pelvic, sometimes makes her nauseated no vomiting no fevers or chills no vaginal discharge or bleeding. She has PCOS and her bleeding is off and on but none recently. She is uncertain if she wants the IUD out right now. She is on no other female hormone prescription medications. This is the same pain has been going on for several months. She states she has an operative planning appointment for possible hysterectomy coming up with same application coordinator. [facility] Medical History Dyspareunia depression History of premature rupture of membranes (PPROM) History of pre-term labor Polyhydramnios Asthma Anxiety Polyhydramnios affecting IUGR (intrauterine growth restriction) Anxiety Former smoker Hyperemesis Vaginal bleeding during Dichorionic diamniotic twin Rh negative status during Infertility Supervision of high risk , antepartum Marijuana use, episodic Concussion without loss of consciousness Cervical strain COVID-19 Depression Back pain Abnormal bruising Knee pain Chest pain Migraines Fatigue Shoulder pain Home Medications ?Medication ?Instructions ?Recorded ?Last Taken ?Type sertraline 100 mg tablet (Zoloft) 150 mg PO DAILY Check with primary 06/18/22 06/24/22 10:00 History doctor lithium carbonate 300 mg 250 mg PO DAILY 11/22/24 Unknown History tablet,extended release naproxen 500 mg tablet 500 mg PO BID PRN pain #30 tabs 01/07/25 Unknown Rx cyclobenzaprine 10 mg tablet 10 mg PO TID PRN muscle spasm #30 01/30/25 Unknown Rx tabs hydrocodone-acetaminophen 5-325mg 1 tab PO Q6H PRN PRN Pain 3 days 03/06/25 Unknown Rx 5mg-325mg #12 TABLETS Allergy/AdvReac Type Severity Reaction Status Date / Time dicyclomine (From Bentyl) Allergy migraine Verified 03/06/25 10:02 Penicillins Allergy Rash Verified 03/06/25 10:02 Surgical History delivery delivered H/O dilation and curettage Social History adopted: No household members: significant other and children number of children: 2 current occupational status: employed 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; [employer] Smoking Status: Former smoker alcohol intake: current details: occasionally; not while substance use type: marijuana caffeine: Yes what type of physical activity do you participate in: none seatbelt use: always do you feel safe at home: Yes additional social history: Baljinder WEBB ROS ED Constitutional Constitutional ED: Denies chills or fever(s) Eyes Eyes: Denies change in vision or diplopia ENT ENT ED: Denies rhinorrhea or sore throat Cardiovascular Cardiovascular: Denies chest pain or palpitations Respiratory/Chest Respiratory/Chest: Denies cough or dyspnea Gastrointestinal Gastrointestinal: Reports abdominal pain and nausea; Denies diarrhea or vomiting Genitourinary Genitourinary ED: Denies dysuria or hematuria Musculoskeletal Musculoskeletal: Reports back pain; Denies neck pain Integumentary Denies abscess or rash Neurologic Neurologic: Denies headache(s), paresthesias or weakness Psychiatric Psychiatric: Reports anxiety; Denies suicidal thoughts EXAM Physical Exam Const Vital Signs: 03/06/25 10:02 03/06/25 12:16 03/06/25 14:00 Temperature 96.5 F L Temperature Source Temporal Pulse Rate 63 57 L 61 Respiratory Rate 18 16 14 Blood Pressure 114/75 117/52 L 107/50 L Blood Pressure Mean 88 73 69 Pulse Ox 98 98 97 Oxygen Delivery Method Room Air Room Air Room Air Positive well nourished and well developed General Appearance ED: well developed and NAD HEENT Reports moist mucous membranes normocephalic and atraumatic Eyes PERRL and EOMs intact bilaterally Neck full ROM and supple Resp normal respiratory effort and clear to auscultation bilaterally Cardio regular rate, regular rhythm and no murmurs GI non-distended GI Narrative: Mild suprapubic tenderness, no guarding or rebound no lateralizing tenderness. Benign abdomen. Auscultation: normoactive bowel sounds Palpation: soft Back/Spine no CVA tenderness General Back: other FROM Extremity normal to inspection General Extremety ED: Negative for edema, pulses abnormal or tenderness General Extremity: Negative for edema or pulses abnormal Neuro oriented x3, CN's II-XII intact bilaterally and no sensory deficits noted Sensorium / Orientation: awake and alert Motor Exam: strength 5/5 throughout Skin no rashes or lesions noted and no wounds MDM MDM MDM Narrative Medical decision making narrative: Urinalysis reviewed, is negative ruling out ectopic. Given this history I do not think she needs an emergent ultrasound, this is not consistent with torsion, TOA, or PID. I gave her some pain control here which helped. Discussed with gynecology Alley Bird, who recommended obtaining an ultrasound to evaluate IUD placement. This was done, placement is adequate and good. She has a small follicular cyst on the left ovary, she has a history of PCOS so I am not worried about that there is no free fluid or signs of a tubo-ovarian abscess. Patient was given morphine in addition to the other medications we gave her for her pain including Toradol which did not help. She is doing well. Give her prescription for short course of analgesics and she is going to follow-up with gynecology as scheduled she is comfortable with that plan. Lab Data Attestation: I reviewed the patient's lab results. Labs: Laboratory Results - last 24 hr 03/06/25 11:05 Urine Color Yellow Urine Clarity Clear Urine pH 6.0 Ur Specific [place] 1.020 Urine Protein 30 H Urine Glucose (UA) Normal Urine Ketones 5 H Urine Occult Blood 10 H Urine Nitrite Negative Urine Bilirubin 1 H Urine Urobilinogen Normal Ur Leukocyte Esterase 25 H Urine RBC 0 SEEN Urine WBC 0-5 SEEN Ur Squamous Epith Cells 0-5 SEEN Urine Bacteria 1+ Urine Mucus 1+ Urine Test Negative Radiography Diagnostic Testing: Clinical Impression(s) from Imaging Studies Transvaginal US 03/06/25 11:55 IMPRESSION: 1. Left ovarian follicular cyst. 2. No free fluid is seen. 3. Satisfactory intrauterine device positioning Reading Location: [address] Discharge Plan Triage Chief Complaint: Abd Pain ED Provider: Al Hassan Dx/Rx/DC Orders Clinical Impression: Acute pain in female pelvis, IUD (intrauterine device) in place Instructions: ED Pelvic Pain, Unknown Cause Prescriptions: New hydrocodone-acetaminophen 5-325 mg tablet 1 tab PO Q6H PRN PRN (Reason: Pain) 3 Days Qty: 12 0RF No Action naproxen 500 mg tablet 500 mg PO BID PRN (Reason: pain) Qty: 30 2RF Rx Instructions: administer with food or milk sertraline [Zoloft] 100 mg tablet 150 mg PO DAILY lithium carbonate 300 mg tablet extended release 250 mg PO DAILY cyclobenzaprine 10 mg tablet 10 mg PO TID PRN (Reason: muscle spasm) Qty: 30 2RF Primary Care Provider: Grant Nazario Referrals: Maria Regan MD [Med Staff - Active Staff] - Keep [facility] appointment Print Language: Burundian Disposition Disposition: Home, Self Care
--- NOTE | 2025-03-06 11:55 | US_ITS ---
PROCEDURE: TRANSVAGINAL NON- 03/06/2025 REASON FOR EXAM: PAIN, CHECK IUD PLACEMENT TECHNIQUE: Transabdominal pelvic ultrasound COMPARISON: Transvaginal pelvic ultrasound 02/08/2025. FINDINGS: Measurements: Uterus: 10.6 x 6.0 x 5.7 cm with a volume of 187 mL Endometrial Thickness: 9 mm Right Ovary: 3.7 x 2.8 x 2.7 cm with a volume of 14.8 mL. Left Ovary: 6.1 x 2.6 x 2.7 cm with a volume of 22.3 mL. A left ovarian follicular cyst is measured at 2.1 x 2.3 x 2.2 cm. Uterus: No focal uterine abnormality is seen. Satisfactory intrauterine device positioning. Endometrium: Unremarkable. Right ovary: Normal size and echotexture. Left ovary: Left ovarian follicular cyst. Unremarkable appearance, otherwise Other: No large pelvic mass identified. No free fluid is evident US/Transvaginal Non- IMPRESSION: 1. Left ovarian follicular cyst. 2. No free fluid is seen. 3. Satisfactory intrauterine device positioning Reading Location: [id number]
[2025-03-06 12:16] VITALS: BP 117/52; PULSE 57; RESP 16; O2SAT 98
[2025-03-06] MEDS: Morphine 4 MG/ML Syringe IM (12:18)
[2025-03-06 14:00] VITALS: BP 107/50; PULSE 61; RESP 14; O2SAT 97
[2025-03-06 15:23] VITALS: BP 164/74; PULSE 74; RESP 16; TEMP 36.9; O2SAT 99
== END 2025-03-06 15:24 | disposition home or self-care (01) ==
PROVIDERS: Emergency Provider Emergency Medicine; PCP Family Medicine; Visit Provider Emergency Medicine
DX: R10.2 Pelvic and perineal pain (principal); N83.02 Follicular cyst of left ovary; Z79.899 Other long term (current) drug therapy; Z97.5 Presence of (intrauterine) contraceptive device; Z87.891 Personal history of nicotine dependence; F41.9 Anxiety disorder, unspecified
CPT/HCPCS: 76830; 81001; 81025; 96372; 99283

== ENCOUNTER 2025-03-21 18:09 | Emergency (ER) | payer MEDICAID, SELFPAY ==
[2025-03-21 18:11] VITALS: BP 105/47; PULSE 68; RESP 18; TEMP 36.7; O2SAT 97; BMI 29.4
--- NOTE | 2025-03-21 18:33 | US_ITS ---
PROCEDURE: TRANSVAGINAL NON- 03/21/2025 REASON FOR EXAM: PELVIC PAIN TECHNIQUE: TRANSVAGINAL NON- COMPARISON: 03/06/2025. FINDINGS: Uterus measures 11.1 x 6.0 x 5.3 cm. Anteverted. No fibroids. Endometrium measures 5 mm. Nabothian cysts are present. An intrauterine device is oriented correctly within the endometrial canal. Right ovary measures 2.6 x 1.9 x 2.0 cm with preserved vascular flow. Left ovary measures 3.8 x 2.7 x 2.5 cm with preserved vascular flow. No free fluid. US/Transvaginal Non- IMPRESSION: Intrauterine device in place. Reading Location: [id number]
--- NOTE | 2025-03-21 18:45 | EX.ED.DYSGE1 ---
HPI <MARCUS Sinclair - Last Filed: 03/22/25 12:18> History of Present Illness Chief Complaint: Abd Pain Narrative Narrative: 39-year-old female with PMH of PCOS has had pelvic pain off and on for months. She started her menstrual cycle yesterday and had lower abdominal and low back cramping. It worsened today after nap and Tylenol and ibuprofen have not been relieving it. She had the pelvic pain for a long time but it worsened after an IUD placement 3 days ago[address] She saw Dr. Vazquez Azevedo earlier this week to discuss having a hysterectomy which will be scheduled next month. PFSH <MARCUS Sinclair - Last Filed: 03/22/25 12:18> [facility] Medical History (Updated 03/21/25 @ 21:32 by MARCUS Sinclair) Dyspareunia depression History of premature rupture of membranes (PPROM) History of pre-term labor Polyhydramnios Asthma Anxiety Polyhydramnios affecting IUGR (intrauterine growth restriction) Anxiety Former smoker Hyperemesis Vaginal bleeding during Dichorionic diamniotic twin Rh negative status during Infertility Supervision of high risk , antepartum Marijuana use, episodic Concussion without loss of consciousness Cervical strain COVID-19 Depression Back pain Abnormal bruising Knee pain Chest pain Migraines Fatigue Shoulder pain Home Medications ?Medication ?Instructions ?Recorded ?Last Taken ?Type sertraline 100 mg tablet (Zoloft) 150 mg PO DAILY Check with primary 06/18/22 06/24/22 10:00 History doctor lithium carbonate 300 mg 250 mg PO DAILY 11/22/24 Unknown History tablet,extended release naproxen 500 mg tablet 500 mg PO BID PRN pain #30 tabs 01/07/25 Unknown Rx cyclobenzaprine 10 mg tablet 10 mg PO TID PRN muscle spasm #30 01/30/25 Unknown Rx tabs levonorgestrel 20.4 mcg/24 hr (up 1 device intrauterine ONCE 03/18/25 Unknown History to 8 yrs) 52 mg intrauterine device (Liletta) oxycodone-acetaminophen 5 mg-325 1 tab PO Q8H PRN pain 2 days #6 03/22/25 Unknown Rx mg tablet (Percocet) tabs Allergy/AdvReac Type Severity Reaction Status Date / Time dicyclomine (From Bentyl) Allergy migraine Verified 03/21/25 18:10 Penicillins Allergy Rash Verified 03/21/25 18:10 Surgical History (Updated 03/18/25 @ 10:[address] 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 CVS: Negative for chest pain. Respiratory: Negative for shortness of breath. GI: Positive for abdominal pain. Negative for nausea, vomiting, diarrhea, constipation, melena, hematochezia. : Negative for dysuria, hematuria or frequency. EXAM <MARCUS Sinclair - Last Filed: 03/22/25 12:18> Physical Exam Narrative Exam Narrative: CONST: Patient sitting in bed appears uncomfortable but nontoxic. EYES: Normal inspection. NECK: Normal inspection. RESP: No respiratory distress, CTAB. CVS: Regular rate and rhythm, no murmur, no gallop. ABD: Soft and nontender, no guarding or rebound, nondistended. SKIN: Color normal, no rash, warm, dry, intact. EXTREMITIES: Normal appearance, no pedal edema. NEURO: Alert and answering questions appropriately. PSYCH: Normal affect. Const Vital Signs: 03/21/25 18:11 03/21/25 20:10 03/21/25 21:40 Temperature 98.1 F 97.6 F L Temperature Source Oral Oral Pulse Rate 68 71 76 Respiratory Rate 18 16 15 Blood Pressure 105/47 L 104/73 115/56 L Blood Pressure Mean 66 83 75 Pulse Ox 97 95 94 Oxygen Delivery Method Room Air Room Air 03/21/25 22:52 03/22/25 00:00 Temperature 97.6 F L Temperature Source Pulse Rate 80 74 Respiratory Rate 15 18 Blood Pressure 123/74 H 111/72 Blood Pressure Mean 90 85 Pulse Ox 94 99 Oxygen Delivery Method Room Air <Dr. Elia Barroso DO - Last Filed: 03/22/25 02:37> Physical Exam Const Vital Signs: 03/21/25 18:11 03/21/25 20:10 03/21/25 21:40 Temperature 98.1 F 97.6 F L Temperature Source Oral Oral Pulse Rate 68 71 76 Respiratory Rate 18 16 15 Blood Pressure 105/47 L 104/73 115/56 L Blood Pressure Mean 66 83 75 Pulse Ox 97 95 94 Oxygen Delivery Method Room Air Room Air 03/21/25 22:52 03/22/25 00:00 Temperature 97.6 F L Temperature Source Pulse Rate 80 74 Respiratory Rate 15 18 Blood Pressure 123/74 H 111/72 Blood Pressure Mean 90 85 Pulse Ox 94 99 Oxygen Delivery Method Room Air MDM <MARCUS Sinclair - Last Filed: 03/22/25 12:18> [facility] Narrative Medical decision making narrative: 39-year-old female is on day 2 of her menstrual cycle presenting with pelvic pain and bilateral low back pain typical of her severe menstrual cramps. She appears well and nontoxic. Vital stable. Her abdomen is soft and completely nontender. She has no tenderness over her back but states most of the cramping pain is in her bilateral low back. CBC and BMP are unremarkable. Urinalysis is contaminated but was sent for culture since it has 3+ bacteria. test is negative. Patient had some pain relief after IV Toradol and morphine 2 mg. She was requesting a refill of the hydrocodone she was prescribed on 03/06/25 from the ED for pelvic pain but I discussed that this is not appropriate to prescribe more narcotics for her chronic condition, especially since the last prescription was this month. I advise she follow-up with her [facility] and she was discharged in stable condition. Attendin-year-old female with history of PCOS and dysmenorrhea presents for evaluation of pelvic cramping and low back pain. Patient states for the past several months she has been having dysmenorrhea. States she is scheduled to have a hysterectomy with her [facility]. Patient states she started her menstrual cycle yesterday in which she developed her pain. States that it feels similar to the previous months. Denies any fever, chills, shortness of breath, chest pain, diarrhea, constipation, dysuria. Associated symptom is nausea. Gen: A&O x3, NAD Head: Normocephalic, atraumatic Eyes: No sclera icterus, conjunctiva clear ENT: Moist mucous membranes Neck: Trachea midline, No JVD CV: RRR, no murmurs, no peripheral edema Resp: Lungs CTA BL, no w/r/c GI: Abd soft, non-distended, non-tender, no r/r/g : No CVA tenderness Musc: Full ROM, no deformity Skin: Warm, dry Neuro: Alert, oriented, grossly intact, sensation intact Psych: Cooperative, appropriate mood and affect Differential diagnosis includes but is not limited to dysmenorrhea, ovarian torsion, ovarian cyst rupture, UTI, , IUD dysfunction. Basic labs ordered with UA and testing. Pelvic ultrasound ordered. CBC without leukocytosis or anemia. CMP unremarkable. Lactic acid unremarkable. UA positive for blood, patient is on her menstrual cycle. Urine is not a clean sample with multiple squamous epithelial cells. Negative for UTI. Urine negative. On reevaluation, patient still endorsing pain. Awaiting pelvic ultrasound. Morphine ordered. Pelvic ultrasound shows good placement of IUD. No ovarian torsion. Nabothian cysts are present. No acute finding. Patient's symptoms are likely secondary to dysmenorrhea. Patient stable to discharge home. After discharge paperwork was given, patient states her pain is not controlled. States she is not comfortable discharging home. On reevaluation, she is now endorsing right lower quadrant abdominal pain where she is mildly tender. IV Dilaudid ordered with CT abdomen pelvis to rule out appendicitis or other intra-abdominal pathology although overall I have low suspicion. CT abdomen pelvis negative for acute intra-abdominal process. On reevaluation, patient's pain has improved with Dilaudid. She is comfortable discharging home. She was educated on Tylenol and ibuprofen as needed for pain. She states this is not working at home. Therefore she will be given a small prescription for Percocet as needed for severe pain. Follow-up with [facility]. She confirmed understanding of the plan. Patient stable to discharge home. Impression: 1. Dysmenorrhea 2. History of PCOS Lab Data Attestation: I reviewed the patient's lab results. Labs: Laboratory Results - last 24 hr 03/21/25 03/21/25 18:45 18:55 WBC 9.6 RBC 4.51 Hgb 12.9 Hct 39.4 MCV 87.4 MCH 28.6 MCHC 32.7 RDW Std Deviation 43.8 RDW Coeff of Tulio 13.8 Plt Count 246 MPV 10.2 Immature Gran % (Auto) 0.400 Neut % (Auto) 60.6 Lymph % (Auto) 30.3 [place] % (Auto) 5.2 Eos % (Auto) 2.9 Baso % (Auto) 0.6 Absolute Neuts (auto) 5.8 Absolute Lymphs (auto) 2.91 Nucleated RBC % 0 Sodium 138 Potassium 3.4 Chloride 106 Carbon Dioxide 19.6 L Anion Gap 13 BUN 18 Creatinine 0.62 L Estim Creat Clear Calc 120.73 Est GFR (MDRD) Non-Af 118 BUN/Creatinine Ratio 28.5 H Glucose 115 H Calcium 9.3 Total Bilirubin 0.21 AST 15 ALT 11 Alkaline Phosphatase 63 Total Protein 7.2 Albumin 4.1 Globulin 3.1 Albumin/Globulin Ratio 1.3 Lipase 69 Urine Color Yellow Urine Clarity Sl. Cloudy Urine pH 5.0 Ur Specific [place] 1.025 Urine Protein 30 H Urine Glucose (UA) Normal Urine Ketones Negative Urine Occult Blood 50 H Urine Nitrite Negative Urine Bilirubin Negative Urine Urobilinogen Normal Ur Leukocyte Esterase Negative Urine RBC 0 SEEN Urine WBC 0-5 SEEN Ur Squamous Epith Cells 10-25 SEEN Urine Bacteria 3+ Urine Mucus 2+ Urine Test Negative Radiography Diagnostic Testing: Clinical Impression(s) from Imaging Studies Transvaginal US 03/21/25 18:33 IMPRESSION: Intrauterine device in place. Reading Location: [id number] Abdomen/Pelvis CT 03/21/25 23:08 IMPRESSION: Unremarkable CT scan of the abdomen pelvis without evidence of acute intra-abdominal process. Reading Location: [id number] <Dr. Elia Jimenez-Sisi, DO - Last Filed: 03/22/25 02:37> MDM MDM Narrative Medical decision making narrative: 39-year-old female is on day 2 of her menstrual cycle presenting with pelvic pain and bilateral low back pain typical of her severe menstrual cramps. She appears well and nontoxic. Vital stable. Her abdomen is soft and completely nontender. She has no tenderness over her back but states most of the cramping pain is in her bilateral low back. CBC and BMP are unremarkable. 39-year-old female with history of PCOS and dysmenorrhea presents for evaluation of pelvic cramping and low back pain. Patient states for the past several months she has been having dysmenorrhea. States she is scheduled to have a hysterectomy with her [facility]. Patient states she started her menstrual cycle yesterday in which she developed her pain. States that it feels similar to the previous months. Denies any fever, chills, shortness of breath, chest pain, diarrhea, constipation, dysuria. Associated symptom is nausea. Gen: A&O x3, NAD Head: Normocephalic, atraumatic Eyes: No sclera icterus, conjunctiva clear ENT: Moist mucous membranes Neck: Trachea midline, No JVD CV: RRR, no murmurs, no peripheral edema Resp: Lungs CTA BL, no w/r/c GI: Abd soft, non-distended, non-tender, no r/r/g : No CVA tenderness Musc: Full ROM, no deformity Skin: Warm, dry Neuro: Alert, oriented, grossly intact, sensation intact Psych: Cooperative, appropriate mood and affect Differential diagnosis includes but is not limited to dysmenorrhea, ovarian torsion, ovarian cyst rupture, UTI, , IUD dysfunction. Basic labs ordered with UA and testing. Pelvic ultrasound ordered. CBC without leukocytosis or anemia. CMP unremarkable. Lactic acid unremarkable. UA positive for blood, patient is on her menstrual cycle. Urine is not a clean sample with multiple squamous epithelial cells. Negative for UTI. Urine negative. On reevaluation, patient still endorsing pain. Awaiting pelvic ultrasound. Morphine ordered. Pelvic ultrasound shows good placement of IUD. No ovarian torsion. Nabothian cysts are present. No acute finding. Patient's symptoms are likely secondary to dysmenorrhea. Patient stable to discharge home. After discharge paperwork was given, patient states her pain is not controlled. States she is not comfortable discharging home. On reevaluation, she is now endorsing right lower quadrant abdominal pain where she is mildly tender. IV Dilaudid ordered with CT abdomen pelvis to rule out appendicitis or other intra-abdominal pathology although overall I have low suspicion. CT abdomen pelvis negative for acute intra-abdominal process. On reevaluation, patient's pain has improved with Dilaudid. She is comfortable discharging home. She was educated on Tylenol and ibuprofen as needed for pain. She states this is not working at home. Therefore she will be given a small prescription for Percocet as needed for severe pain. Follow-up with [facility]. She confirmed understanding of the plan. Patient stable to discharge home. Impression: 1. Dysmenorrhea 2. History of PCOS Lab Data Labs: Laboratory Results - last 24 hr 03/21/25 03/21/25 18:45 18:55 WBC 9.6 RBC 4.51 Hgb 12.9 Hct 39.4 MCV 87.4 MCH 28.6 MCHC 32.7 RDW Std Deviation 43.8 RDW Coeff of Tulio 13.8 Plt Count 246 MPV 10.2 Immature Gran % (Auto) 0.400 Neut % (Auto) 60.6 Lymph % (Auto) 30.3 [place] % (Auto) 5.2 Eos % (Auto) 2.9 Baso % (Auto) 0.6 Absolute Neuts (auto) 5.8 Absolute Lymphs (auto) 2.91 Nucleated RBC % 0 Sodium 138 Potassium 3.4 Chloride 106 Carbon Dioxide 19.6 L Anion Gap 13 BUN 18 Creatinine 0.62 L Estim Creat Clear Calc 120.73 Est GFR (MDRD) Non-Af 118 BUN/Creatinine Ratio 28.5 H Glucose 115 H Calcium 9.3 Total Bilirubin 0.21 AST 15 ALT 11 Alkaline Phosphatase 63 Total Protein 7.2 Albumin 4.1 Globulin 3.1 Albumin/Globulin Ratio 1.3 Lipase 69 Urine Color Yellow Urine Clarity Sl. Cloudy Urine pH 5.0 Ur Specific [place] 1.025 Urine Protein 30 H Urine Glucose (UA) Normal Urine Ketones Negative Urine Occult Blood 50 H Urine Nitrite Negative Urine Bilirubin Negative Urine Urobilinogen Normal Ur Leukocyte Esterase Negative Urine RBC 0 SEEN Urine WBC 0-5 SEEN Ur Squamous Epith Cells 10-25 SEEN Urine Bacteria 3+ Urine Mucus 2+ Urine Test Negative Radiography Diagnostic Testing: Clinical Impression(s) from Imaging Studies Transvaginal US 03/21/25 18:33 IMPRESSION: Intrauterine device in place. Reading Location: [id number] Abdomen/Pelvis CT 03/21/25 23:08 IMPRESSION: Unremarkable CT scan of the abdomen pelvis without evidence of acute intra-abdominal process. Reading [id number] Triage Chief Complaint: Abd Pain ED Midlevel Provider: Stephany Benavides ED Provider: Elia Barroso Dx/Rx/DC Orders Clinical Impression: Menstrual pain Instructions: Medicine for Pain, ED MENSTRUAL CRAMPING Prescriptions: New oxycodone-acetaminophen [Percocet] 5-325 mg tablet 1 tab PO Q8H PRN (Reason: pain) 2 Days Qty: 6 0RF No Action Liletta 20.4 mcg/24 hr (8 yrs) 52 mg intrauterine device 1 device intrauterine ONCE Rx Instructions: as a single dose naproxen 500 mg tablet 500 mg PO BID PRN (Reason: pain) Qty: 30 2RF Rx Instructions: administer with food or milk sertraline [Zoloft] 100 mg tablet 150 mg PO DAILY lithium carbonate 300 mg tablet extended release 250 mg PO DAILY cyclobenzaprine 10 mg tablet 10 mg PO TID PRN (Reason: muscle spasm) Qty: 30 2RF Primary Care Provider: Grant Nazario Referrals: Follow-up with your [facility] [Other] - 3-5 Days Grant Nazario MD [Primary Care Provider] - 3-5 Days Activity Restrictions/Additional Instructions: Your blood work and ultrasound are normal. I recommend you alternate Tylenol and ibuprofen as needed and follow-up with [facility]. Print Language: Vietnamese Disposition Disposition: Home, Self Care Discharge Date/Time: 03/22/25 01:27
[2025-03-21 19:00] LABS: Absolute Lymphocyte Count 2.91 X10^3/uL (0.83-4.51); Absolute Neutrophil Count 5.8 X10^3/uL (2.0-7.7); Basophil# 0.06 X10^3/uL; Basophil% 0.6 % (0-1); Eosinophil# 0.28 X10^3/uL; Eosinophils% 2.9 % (0-5); Hematocrit 39.4 % (37-47); Hemoglobin 12.9 g/dL (12.0-15.0); Lymphocyte # 2.91 X10^3/ul (0.83-4.51); Lymphocyte % 30.3 % (19-41); Mean Corp Hgb Conc 32.7 g/dL (32-36); Mean Corpuscular Hgb 28.6 pg (27.0-32.0); Mean Corpuscular Volume 87.4 fL (81-99); Mean Platelet Vol. 10.2 fl (6.2-12.0); Monocyte% 5.2 % (0-10); NRBC Flagged by Analyzer 0 % (0-5); Neutrophil # 5.81 X10^3/uL (2.7-7.7); Neutrophil % 60.6 % (47-70); Platelet Count 246 K/mm3 (150-450); RBC Distribution Width CV 13.8 % (11.6-14.6); RBC Distribution Width SD 43.8 fl (35.1-43.9); Red Blood Count 4.51 M/mm3 (4.2-5.4); White Blood Count 9.6 K/mm3 (4.4-11.0)
--- OUTSIDE RECORDS SUMMARY | 2025-03-21 19:10 | XMS RPT_ITS | CCD ---
Author Organization [facility] Care Team Providers Care Teacher Instrumental Name Role Phone Melecio PORTILLO, Brad Costa Unavailable Maci Hayes DO Primary Care Provider Unavailable Primary Care Provider Unavailabl e PHYSICIAN, NONE Primary Care Physician Unavailab DR ROGER Osborn MD Primary Care Physician Dr. Roger Cohen Primary Care Provider Sandra SENIOR MECHANICAL TECHNICIAN, SENIOR MECHANICAL TECHNICIAN-C Cinthia Attending Provider Dr. Roger Cohen Referring Provider Dr. Maria Regan Attending Provider Dr. Veronika Segovia Attending Provider MD [place] Emergency Provider Dr. Vazquez Kumar Admit Provider Dr. Vazquez Kumar Attending Provider Dr. Vazquez Kumar Other Provider Dr. Veronika Segovia Other Provider Dr. Krista Wheeler Attending Provider Dr. Krista Wheeler Other Provider Dr. Junior Palma Other Provider Dr. Roger Cohen Primary Care Provider Dr. Roger Cohen Referring Provider Dr. Maria Regan Attending Provider Dr. Roger Cohen Primary Care Provider Dr. Roger Cohen Referring Provider Han Parker, Dr. Banda Attending Provider Dr. Maria Regan Attending Provider Han Parker, Dr. Banda Other Provider Antonio PORTILLO, Roger Bentley Primary Care Provider ANTONIO, ROGER Bentley Primary Care Unavailable FLAKO, VERONIKA Snow Referring Unavailab FRANCISCO Gutierrez Attending Unavailable ANTONIO, ROGER Bentley Primary Care Unavailable VANDEVELDE, VERONIKA Snow Referring Unavailab LENI Garcia Attending Unavailable ANTONIO, ROGER Bentley Primary Care Unavailable VANDEVELDE, VERONIKA Snow Referring Unavailab le NAIF ALVAREZ Attending Unavailable ANTONIO, ROGER Bentley Primary Care Unavailable VANDEVELDE, VERONIKA Snow Referring Unavailab FRANCISCO Gutierrez Attending Unavailable FRANCISCO ALVAREZ Attending Unavailable ANTONIO, ROGER Bentley Primary Care Unavailable VANDEVELDE, VERONIKA Snow Referring Unavailab le COHEN, ROGER Bentley Primary Care Unavailable ANGIE WANG Attending Unavailable VANDEVELDE, VERONIKA Snow Referring Unavailab le COHEN, ROGER Bentley Primary Care Unavailable ANGIE WANG Attending Unavailable AMINAEVELDE, VERONIKA Snow Referring Unavailab le ALVAREZFRANCISCO Attending Unavailable ANTONIO, ROGER Bentley Primary Care Unavailable VANDEVELDE, VERONIKA Snow Referring Unavailab le ARNETTEMILY Attending Unavailable ANTONIO, RGOER Bentley Primary Care Unavailable VANDEVELDE, VERONIKA Snow Referring Unavailab le COHEN, ROGER Bentley Primary Care Unavailable VANDEVELDE, VERONIKA Snow Referring Unavailab ANGIE Gibson Attending Unavailable FRANCISCO ALVAREZ Attending Unavailable ANTONIO, ROGER Bentley Primary Care Unavailable VANDEVELDE, VERONIKA Snow Referring Unavailab le ALVAREZFRANCISCO Attending Unavailable ANTONIO, ROGER Bentley Primary Care Unavailable VANDEVELDE, VERONIKA Snow Referring Unavailab le ARNETTEMILY Attending Unavailable ANTONIO, ROGER Bentley Primary Care Unavailable VANDEVELDE, VERONIKA Snow Referring Unavailab le ARNETT, EMILY A Attending Unavailable ROGER COHEN Primary Care Unavailable VERONIKA THOMAS Referring Unavailab Dr. Maria Tuttle Referring Provider [phone] Dr. Maria Regan Other Provider Dr. Maria Regan Admit Provider Emily Jacobs Attending Unavailable PROVIDER, UNKNOWN Referring Unavailable No, PCP Primary Care Unavailable Dr. Roger Cohen Primary Care Provider Dr. Roger Cohen Referring Provider Dr. Maria Regan Attending Provider [phone] Dr. Veronika Segovia Attending Provider [phone] Dr. Veronika Segovia Other Provider Dr. Maria Regan Referring Provider [phone] Dr. Maria Regan Other Provider [phone] Maria Regan Admit Provider Dr. Veronika Segovia Referring Provider [phone] Sandra SENIOR MECHANICAL TECHNICIAN, SENIOR MECHANICAL TECHNICIAN-C Cinthia Attending Provider [phone] ANTONIO PORTILLO, DR CARREON Primary Care Physician [phone] BARBI LI Attending Unavailable Roger Cohen MD Primary Care Provider Gabe PORTILLO, Jennifer [facility] er Maria Luisa Tyler MD Unavailable ALPHONSO PORTILLO, DR RODRIGUEZ Primary Care Physician [phone] MARTIN LEE, DR JESSICA Quach Attending Unavailable ALPHONSO PORTILLO, DR RODRIGUEZ Primary Care Unavailabl e MARTIN LEE, DR JESSICA Quach Attending Unavailable MARTIN LEE, DR JESSICA Quach Attending Unavailable ANTONIO PORTILLO, DR CARREON Primary Care Unavaila tracy Christina MD, Jennifer [facility] er Roger Cohen MD Primary Care Provider Alphonso PORTILLO, Jennifer Primary Care Provider WERNER, JENNIFER Primary Care Unavailable FORTINO TEJEDA Referring Unavailable WERNER, JENNIFER Primary Care Unavailable WERNER, JENNIFER Primary Care Unavailable WERNER, JENNIFER Primary Care Unavailable PEGGY MEEKS Attending Unavailable SELF Referring Unavailable WERNER, JENNIFER Primary Care Unavailable TO HARRIS Referring Unavailable WERNER, JENNIFER Primary Care Unavailable WERNER, JENNIFER Primary Care Unavailable RICKI LAFLEUR Referring Unavailable WERNER, JENNIFER Primary Care Unavailable WERNER, JENNIFER Primary Care Unavailable SANDY CERDA Referring Unavailable WERNER, JENNIFER Primary Care Unavailable WERNER, JENNIFER Referring Unavailable WERNER, JENNIFER Primary Care Unavailable Dr. Maria Regan MD Primary Care Provider Lupillo Asif MD Attending Provider Lupillo Asif MD Emergency Provider Dr. Maria Regan MD Attending Provider [phone] Dr. Maria Regan MD Referring Provider [phone] [facility] Doctor, Out of Primary Care Provider Dr. Kevin Tilley DO Emergency Provider Dr. Jennifer Werner MD Primary Care Provider [phone] FORTINO TEJEDA Attending Unavailable WERNER, JENNIFER Primary Care Unavailable MEHRAN COOPER Attending Unavailable WERNER, JENNIFER Primary Care Unavailable WERNER, JENNIFER Attending Unavailable WERNER, JENNIFER Primary Care Unavailable WERNER, JENNIFER Primary Care Unavailable WERNER, JENNIFER Attending Unavailable WERNER, JENNIFER Primary Care Unavailable WERNER, JENNIFER Attending Unavailable WERNER, JENNIFER Primary Care Unavailable NOELLE CUMMINS Attending Unavailable NOELLE CUMMINS Attending Unavailable WERNER, JENNIFER Primary Care Unavailable Dr. Kevin Heart DO Attending Provider Dr. Jennifer Werner MD Referring Provider Arturo BELTRAN-C, Azeb Attending Provider [phone] Mo PORTILLO, Dr. Melendez Emergency Provider Dr. Al Hassan MD Attending Provider Azeb Morris Attending Unavailable Azeb Morris Referring Unavailable Sandra SENIOR MECHANICAL TECHNICIAN, Cinthia Attending Unavailable Sandra SENIOR MECHANICAL TECHNICIAN, Cinthia Referring Unavailable DUSZ, MILDRED Primary Care Unavailable Marcanthony, Maria Attending Unavailable Marcanthony, Maria Referring Unavailable [facility] Doctor, Out of Primary Care Unavailable Lillian Ricardo Attending Unavailable Marcanthony, Maria Referring Unavailable [facility] Doctor, Out of Primary Care Unavailable Azeb Morris Attending Unavailable Marcanthony, Maria Attending Unavailable Marcanthony, Maria Referring Unavailable Marcanthony, Maria Primary Care Unavailable Marcanthony, Maria Attending Unavailable Marcanthony, Maria Referring Unavailable Marcanthony, Maria Primary Care Unavailable Azeb Morris Attending Unavailable Ewrner, Jennifer Primary Care Unavailable Wernre, Jennifer Referring Unavailable Marcanthony, Maria Attending Unavailable Marcanthony, Maria Referring Unavailable Werner, Jennifer Primary Care Unavailable Sandra SENIOR MECHANICAL TECHNICIAN, Cinthia Attending Unavailable Azeb Morris Attending Unavailable Al Hassan Attending Unavailable Werner, Jennifer Primary Care Unavailable Tracy, Yvon Attending Unavailable DUSZ, MILDRED Primary Care Unavailable Al Hassan Attending Unavailable DUSZ, MILDRED Primary Care Unavailable ReodicaLupillo Attending Unavailable Marcanthony, Maria Primary Care Unavailable Werner, Jennifer Primary Care Unavailable Kevin Heart Attending Unavailable Allergies Allergy Classification Reported Allergen(s) Allergy Type Date of Onset Reaction(s) Facility Anticholinergics (2 sources) Dicyclomine Drug Allergy 03-27-20 18 Other: See Comments [facility] Penicillins (antibiotic) (2 sources) Penicillins Drug Allergy 06-06-20 08 Rash [facility] Serotonin Reuptake Inhibitors (SSRIs) (1 source) Escitalopram Drug Allergy 06-22-20 19 Other: See Comments [facility] Work Phone: (20 sources) Dicyclomine; Translations: [Dicyclomine] Drug Allergy 03-27-20 18 Other: See Comments [facility] Work Phone: Comment on above: migraine (9 sources) Penicillin; Translations: [penicillins] Drug Allergy 10-17-19 20 [facility] Work Phone: (2 sources) Dicyclomine Drug Allergy 05-11-20 21 [facility] (10 sources) Penicillins; Translations: [PENICILLINS] Propensity to adverse reactions to drug 06-06-20 08 Rash [facility] (12 sources) Penicillins Allergy to substance 05-21-20 [facility] (20 sources) Escitalopram; Translations: [ESCITALOPRAM OXALATE] Drug Allergy 06-22-20 Other: See Comments, GI Upset [facility] Work Phone: (20 sources) Penicillins Propensity to adverse reactions 06-06-20 08 [facility] (1 source) Escitalopram; Translations: [ESCITALOPRAM] Drug Allergy 06-22-20 [facility] (1 source) Penicillin; Translations: [PENICILLIN G] Drug Allergy 10-17-19 [facility] (4 sources) Penicillins Propensity to adverse reactions 06-06-20 08 [facility] (1 source) Penicillins Drug allergy (disorder) 03-18-20 [facility] Repository Medications Current Medications Medication Drug Class(es) Dates Sig (Normalized) Sig (Original) 8 hr acetaminophen 650 mg extended release oral tablet (20 sources) Start: 08-09-2023 End: 08-24-2023 take 1-2 tablets by mouth every eight hours as needed for pain acetaminophen 650 mg CR tablet Indications: Upper back pain Take 1-2 tablets by mouth every 8 hours as needed for pain for up to 15 days. 60 tablet 0 08/09/2023 08/24/2023 Active Start: 06-19-2022 650 mg, Oral, EVERY 4 HOURS PRN, Starting on 06/19/22 at 1408, Until Discontinued, Pain Mild (1-3), Pain Mild (1-3) or Fever greater than 100.5 F (38 C) Maximum dose of acetaminophen is 4000 mg from all sources in 24 hours. Start: 08-09-2018 End: 10-04-2018 take 1 tablet by mouth every six hours as needed for pain Acetaminophen (Tylenol Extra Strength) 500 mg tablet Discontinued 500 mg PO EVERY 6 HOURS as needed for Pain August 09, 2018 1:00am October 04, 2018 4:00pm Comment on above: Take 650 mg by mouth every 8 hours as needed. Take 1-2 tablets by mouth every 8 hours as needed for pain for up to 15 days. ALPRAZolam 0.25 mg oral tablet (20 sources) Benzodiazepine Start: End: take 1 tablet by mouth once daily as needed for anxiety ALPRAZolam (XANAX) 0.25 mg tablet Indications: Generalized anxiety disorder Take 1 tablet by mouth once daily as needed for anxiety for up to 30 days. 30 tablet 07/12/2024 08/11/2024 Active Start: 07-04-2024 End: 07-12-2024 take 1 tablet by mouth once daily ALPRAZolam (XANAX) 0.5 mg tablet Indications: Generalized anxiety disorder Take 1 tablet by mouth once daily for 8 days. 8 tablet 07/04/2024 07/12/2024 Discontinued Start: 02-22-2024 End: 07-31-2024 take 1 tablet by mouth twice daily as needed ALPRAZolam (XANAX) 0.5 mg tablet Indications: Generalized anxiety disorder Take 1 tablet by mouth two times a day as needed for up to 60 days. 45 tablet 06/01/2024 07/04/2024 Discontinued Start: 02-02-2024 End: 04-02-2024 take 1 tablet by mouth once daily as needed for anxiety ALPRAZolam (XANAX) 0.5 mg tablet Indications: Generalized anxiety disorder Take 1 tablet by mouth once daily as needed for anxiety for up to 60 days. 30 tablet 1 02/02/2024 02/22/2024 Discontinued Start: 09-27-2023 End: 01-31-2024 take 1 tablet by mouth once daily as needed for anxiety ALPRAZolam (XANAX) 0.5 mg tablet Indications: Generalized anxiety disorder Take 1 tablet by mouth once daily as needed for anxiety for up to 60 days. 30 tablet 1 12/02/2023 01/31/2024 Active Start: 07-20-2023 End: 09-18-2023 take 1 tablet by mouth once daily as needed for anxiety ALPRAZolam (XANAX) 0.5 mg tablet Indications: Generalized anxiety disorder Take 1 tablet by mouth once daily as needed for anxiety for up to 60 days. 30 tablet 1 07/20/2023 09/18/2023 Active Start: 05-09-2023 End: 07-18-2023 take 1 tablet by mouth once daily as needed for anxiety ALPRAZolam (XANAX) 0.5 mg tablet Indications: Generalized anxiety disorder Take 1 tablet by mouth once daily as needed for anxiety for up to 60 days. 30 tablet 1 05/27/2023 07/18/2023 Discontinued Start: 03-08-2023 End: 04-07-2023 take 1 tablet by mouth once daily as needed ALPRAZolam (XANAX) 0.5 mg tablet Indications: Generalized anxiety disorder Take 1 tablet by mouth once daily as needed for up to 30 days. 20 tablet 0 03/08/2023 04/07/2023 Active Start: 02-02-2023 End: 03-04-2023 take 1 tablet by mouth once daily as needed ALPRAZolam (XANAX) 0.5 mg tablet Indications: Generalized anxiety disorder Take 1 tablet by mouth once daily as needed for up to 30 days. 20 tablet 0 02/02/2023 03/04/2023 Start: 12-21-2022 End: 01-20-2023 take 1 tablet by mouth once daily as needed ALPRAZolam (XANAX) 0.5 mg tablet Indications: Generalized anxiety disorder Take 1 tablet by mouth once daily as needed for up to 30 days. 20 tablet 0 12/21/2022 01/20/2023 Active Start: 11-01-2022 End: 12-01-2022 take 1 tablet by mouth once daily as needed ALPRAZolam (XANAX) 0.5 mg tablet Indications: Generalized anxiety disorder Take 1 tablet by mouth once daily as needed for up to 30 days. 20 tablet 0 11/01/2022 12/01/2022 Active Start: 11-21-2013 End: 05-09-2018 take 1 tablet by mouth three times daily as needed for anxiety Alprazolam 0.5 MG tablet Discontinued 0.5 mg PO 3 TIMES DAILY NEEDED as needed for Anxiety November 21, 2013 1:00am May 09, 2018 5:05pm Comment on above: Take 1 tablet by jake th once daily as needed for up to 30 days. Take 1 tablet by jake th once daily as needed for anxiety for up to 30 days. Take 1 tablet by jake th once daily as needed for anxiety for up to 60 days. benzonatate 100 mg oral capsule (12 sources) Non-narcotic Antitussive Start: End: take 2 capsules by mouth three times daily as needed benzonatate (TESSALON PERLE) 100 mg capsule Indications: URI, acute Take 2 capsules by mouth three times a day as needed. 30 capsule 04/27/2024 06/21/2024 Discontinued Start: 08-03-2022 End: 10-19-2022 take 1 capsule by mouth every eight hours as needed benzonatate (TESSALON PERLES) 100 mg capsule Take 1 capsule by mouth three times daily as needed for cough. 21 capsule 0 08/03/2022 10/19/2022 Discontinued (Course of therapy completed) Comment on above: Take 1 capsule by mo [facility] three times daily as needed for cough. calcium chloride 0.0014 meq/ml / potassium chloride 0.004 meq/ml / sodium chloride 0.103 meq/ml / sodium lactate 0.028 meq/ml injectable solution (1 source) Start: 06-19-20 22 lactated ringers bolus cyclobenzaprine hydrochloride 10 mg oral tablet (20 sources) Muscle Relaxant Start: 01-08-20 End: 02-28-20 take 1 tablet by mouth three times daily as needed for muscle spasms Cyclobenzaprine 10 mg tablet Active 10 mg PO THREE TIMES A DAY as needed for muscle spasm January 30, 2025 12:00am Start: 08-03-2022 End: 10-19-2022 take 1 tablet by mouth every eight hours as needed cyclobenzaprine (FLEXERIL) 10 mg tablet Take 1 tablet by mouth three times daily as needed for muscle spasm. 21 tablet 0 08/03/2022 10/19/2022 Discontinued (Course of therapy completed) Start: 04-03-2021 End: 08-26-2021 take 1 tablet by mouth three times daily as needed for muscle spasms Cyclobenzaprine 10 mg tablet Discontinued 10 mg PO THREE TIMES A DAY as needed for muscle spasm 9 3 April 03, 2021 11:06am August 26, 2021 4:26pm Comment on above: Take 1 tablet by jake three times daily as needed for muscle spasm. famotidine 40 mg oral tablet (20 sources) Histamine-2 Receptor Antagonist Start: 12-25-2023 End: 01-08-2024 Pepcid 40 mg oral tablet Dose : 40 mg = 1 tab(s), Oral, BID, # 28 tab(s), 0 Refill(s) Start Date: 12/25/23 Stop Date: 01/08/24 Status: Ordered Start: 12-21-2021 End: 05-21-2022 take 1 tablet by mouth once daily as needed Famotidine (Pepcid Ac) 10 mg tablet Discontinued 10 mg PO DAILY as needed for Stomach Upset December 21, 2021 12:00am May 21, 2022 11:31am Start: 11-16-2014 End: 10-11-2024 take 1 tablet by mouth twice daily Famotidine (Pepcid) 20 mg tablet Discontinued 20 mg PO TWICE A DAY June 18, 2022 9:50pm October 11, 2024 3:09pm Comment on above: Take 20 mg by mouth twice daily. Take 1 tablet by jake twice daily as needed. Take 20 mg by mouth twice daily as needed. fenofibrate 160 mg oral tablet (11 sources) Peroxisome Proliferator Receptor alpha Agonist Start: 8 End: 2 fenofibrate 160 mg oral tablet Dose : 160 mg = 1 tab(s), Oral, qDay, # 90 tab(s), 0 Refill(s) Start Date: 01/10/18 Status: Ordered folic acid 1 mg oral tablet (8 sources) Start: 2 take 1 mg by mouth once daily Folic Acid Active 1 MG PO DAILY January 04, 2022 12:00am Food Supplemt, Lactose-Reduced (Ensure) liquid (3 sources) Start: 2 take 1 mL by mouth three times daily Food Supplemt, Lactose-Reduced (Ensure) liquid Active 300 ML PO THREE TIMES A DAY 8 January 07, 2022 4:35pm hydrOXYzine pamoate 25 mg oral capsule (1 source) Antihistamine Start: 2 hydrOXYzine pamoate (VISTARIL) capsule 25 mg ibuprofen 800 mg oral tablet (20 sources) Nonsteroidal Anti-inflammatory Drug Start: 5 End: 5 take 1 tablet by mouth three times daily as needed for pain ibuprofen (MOTRIN) 800 mg tablet Indications: Chronic midline low back pain without sciatica Take 1 tablet by mouth three times a day as needed for pain. - take with food. 30 tablet 02/18/2025 03/20/2025 Active Start: 03-28-2024 End: 02-18-2025 take 1 tablet by mouth every six hours as needed for pain ibuprofen (MOTRIN) 600 mg tablet Indications: Pelvic floor dysfunction in female Take 1 tablet by mouth every 6 hours as needed for pain. 30 tablet 1 03/28/2024 02/18/2025 Discontinued (Course of therapy completed) Start: 06-27-2020 End: 10-19-2021 take 1 tablet by mouth every eight hours as needed ibuprofen (MOTRIN) 800 mg tablet Take 1 tablet by mouth every 8 hours as needed for Pain (with food.). 60 tablet 2 06/27/2020 10/19/2021 Discontinued End: 06-20-2022 take 1 tablet by mouth every six hours as needed for pain ibuprofen (ADVIL;MOTRIN) 800 MG tablet Take 800 mg by mouth every 6 hours as needed for Pain 0 06/20/2022 Discontinued (Stop Taking at Discharge) iv contrast (will be provided with radiology test) (1 source) Start: 11-12-2022 End: 11-13-2022 inject 1 dose intravenously once iv contrast (will be provided with radiology test) MRI Brain Inject, intravenously, once for 1 dose.No IV access, insert saline lock prior to beginning of sedation, infusion, injection of imaging exam.Discontinue saline lock post exam. If Pt. has a central line or IVAD, may access for administration according to line specific nursing protocol.Once exam is complete flush line and de-access according to line specific nursing protocol in the MR contrast administration guidelines link 1 Each 0 11/12/2022 11/13/2022 Active Comment on above: MRI Brain Inject, in travenously, once for 1 dose.No IV access, insert saline lock prior to beginning of sedation, infusion, injection of imaging exam.Discontinue saline lock post exam. If Pt. has a central line or IVAD, may access for administration according to line specific nursing protocol.Once exam is complete flush line and de-access according to line specific nursing protocol in the MR contrast administration guidelines link levonorgestrel 0.780644 mg/hr intrauterine system (1 source) Progestin, Progestin-containi ng Intrauterine Device Start: 03-18-2025 Levonorgestrel (Liletta) 20.4 mcg/24 hr (8 yrs) 52 mg intrauterine device Active 1 NMA INTRA-UTER ONCE March 18, 2025 12:00am as a single dose lithium carbonate 300 mg extended release oral tablet (20 sources) Start: 02-27-2025 End: 05-28-2025 take 1 tablet by mouth once daily lithium carbonate ER 300 mg CR tablet Indications: Bipolar disorder, current episode mixed, moderate (HCC) Take 1 tablet by mouth once daily. 90 tablet 02/27/2025 05/28/2025 Active Start: 11-22-2024 [place] ate 300 mg tablet extended release Active 250 mg PO DAILY November 22, 2024 1:00am Start: 07-12-2024 End: 01-14-2025 take 1 tablet by mouth once daily lithium carbonate ER 300 mg CR tablet Indications: Bipolar disorder, current episode mixed, moderate (HCC) Take 1 tablet by mouth once daily. 90 tablet 2024 Active Start: 12-16-2023 End: 12-31-2024 take 1 tablet by mouth once daily lithium carbonate ER 450 mg CR tablet Indications: Bipolar affective disorder, currently manic, moderate (HCC) Take 1 tablet by mouth once daily. 90 tablet 1 07/04/2024 07/12/2024 Discontinued (Dosage adjustment) Start: 08-29-2023 End: 04-11-2024 take 1 tablet by mouth twice daily lithium carbonate ER 450 mg CR tablet Indications: Bipolar affective disorder, currently manic, moderate (HCC) Take 1 tablet by mouth two times a day. 60 tablet 5 10/14/2023 12/16/2023 Discontinued (Adjust Sig - Block E-Cancel) Start: 03-03-2023 End: 08-25-2023 take 1 tablet by mouth twice daily lithium carbonate ER 450 mg CR tablet Indications: Bipolar affective disorder, currently manic, moderate (HCC) Take 1 tablet by mouth twice daily. 60 tablet 2 05/27/2023 08/25/2023 Active Start: 02-25-2023 End: 03-02-2023 take 1 tablet by mouth three times daily lithium carbonate 300 mg tablet Indications: Bipolar affective disorder, currently manic, moderate (HCC) Take 1 tablet by mouth three times daily for 5 days. 15 tablet 0 02/25/2023 Active Comment on above: Take 1 tablet by jake three times daily for 5 days. Take 1 tablet by jake twice daily. take 1 tablet by jake twice a day Take 1 tablet by jake two times a day. Take 1 tablet by jake once daily. methylPREDNISolone 4 mg oral tablet (2 sources) Corticosteroid Start: 2022 End: 2022 take 6 tablets by mouth once daily, then take 5 tablets by mouth once daily, then take 4 tablets by mouth once daily, then take 3 tablets by mouth once daily, then take 2 tablets by mouth once daily, then take 1 tablet by mouth once daily methylPREDNISolone (MEDROL, KELLY,) 4 mg Dose-Pack Take 6 tablets by mouth once daily for 1 day, THEN 5 tablets once daily for 1 day, THEN 4 tablets once daily for 1 day, THEN 3 tablets once daily for 1 day, THEN 2 tablets once daily for 1 day, THEN 1 tablet once daily for 1 day. 21 tablet 0 12/24/2022 12/30/2022 Active Comment on above: Take 6 tablets by mo [facility] once daily for 1 day, THEN 5 tablets once daily for 1 day, THEN 4 tablets once daily for 1 day, THEN 3 tablets once daily for 1 day, THEN 2 tablets once daily for 1 day, THEN 1 tablet once daily for 1 day. metoclopramide 10 mg oral tablet (1 source) Dopamine-2 Receptor Antagonist Start: 2021 metoclopramide (REGLAN) tablet 10 mg naloxone 0.4 mg in 10 mL sodium chloride syringe (1 source) Start: 2021 naloxone 0.4 mg in 10 mL sodium chloride syringe naproxen 500 mg oral tablet (20 sources) Nonsteroidal Anti-inflammatory Drug Start: 2024 take 1 tablet by mouth twice daily as needed for pain Naproxen 500 mg tablet Active 500 mg PO TWICE A DAY as needed for pain January 07, 2025 12:00am administer with food or milk Start: 06-24-2022 End: 10-11-2024 take 1 tablet by mouth twice daily Naproxen 500 mg tablet Discontinued 500 mg PO TWICE A DAY March 27, 2024 12:00am October 11, 2024 3:09pm Start: 05-11-2021 End: 06-20-2022 take 1 tablet by mouth twice daily as needed Naproxen 500 MG tablet Discontinued 500 mg PO TWICE DAILY NEEDED October 07, 2021 1:00am December 21, 2021 2:06pm End: 10-19-2022 NAPROXEN ORAL Take by mouth. 10/19/2022 Discontinued (Course of therapy completed) End: 10-19-2022 NAPROXEN ORAL Take by mouth. 0 10/19/2022 Discontinued (Course of therapy completed) NAPROXEN ORAL Ta ke by mouth. 0 Active Comment on above: Take by mouth. NONFORMULARY (3 sources) take 10 mg by mouth once daily NONFORMULARY Lexapro 10 mg PO Daily 0 Active ondansetron 4 mg disintegrating oral tablet (20 sources) Serotonin-3 Receptor Antagonist Start: 09-27-20 ondansetron 4 mg oral tablet, disintegrating Dose : 4 mg = 1 tab(s), Oral, q6h, PRN Nausea/Vomiting, # 10 tab(s), 0 Refill(s), Myalgia Start Date: 09/27/22 Status: Ordered Start: 01-07-2022 End: 05-21-2022 take 1 tablet by mouth every eight hours as needed for nausea Ondansetron 4 mg tablet,disintegrating Discontinued 4 mg PO EVERY 8 HOURS NEEDED as needed for Nausea 60 January 14, 2022 11:40am May 21, 2022 11:32am Start: 07-10-2021 End: 07-10-2021 ondansetron (ZOFRAN) injecti on 4 mg Start: 05-11-2021 End: 06-20-2022 take 1 tablet by mouth three times daily as needed for nausea ondansetron (ZOFRAN-ODT) 4 MG disintegrating tablet Take 1 tablet by mouth 3 times daily as needed for Nausea or Vomiting 21 tablet 0 05/11/2021 06/20/2022 Discontinued (Stop Taking at Discharge) Start: 05-11-2021 End: 05-11-2021 ondansetron (ZOFRAN) injecti on 4 mg ondansetron (ZOFRAN-ODT) disintegrating tablet 4 mg (1 source) Start: 06-19-2022 ondansetron (ZOFRAN-ODT) disintegrating tablet 4 mg phentermine hydrochloride 37.5 mg oral tablet (2 sources) Sympathomimetic Amine Anorectic Start: 2024 End: 01-14-2025 take 30-30.9 tablets by mouth once daily in the morning Phentermine HCl 37.5 mg tablet Indications: 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 30 tablet 2 2024 01/14/2025 Active PNV Plus oral tablet (8 sources) Start: 01-10-2018 PNV Plus oral tablet 0 Refill(s) Start Date: 01/10/18 Status: Ordered monobasic potassium phosphate 0.0408 meq/ml oral solution (3 sources) Start: 01-04-2022 take 1 tablet by mouth once daily Potassium Phosphate, Monobasic (K-Phos Original) 500 mg tablet,soluble Active 500 MG PO DAILY January 04, 2022 1:29pm Prenat.Vits,Justine,Min -Iron-Folic (12 sources) Start: 12-21-2021 take 1 tablet by mouth once daily Prenat.Vits,Justine,Min -Iron-Folic Active 1 TABLET PO DAILY December 21, 2021 2:06pm Start: 12-21-2021 take 1 tablet by jake th once daily Prenat.Vits,Justine,Wsp-Yabu-Eqpcc Active 1 TABLET PO DAILY December 20, 2021 11:00pm Start: 12-21-2021 take 1 tablet by jake th once daily Prenat.Vits,Ujstine,Kzi-Wpfl-Fsaae Active 1 TABLET PO DAILY December 21, 2021 12:00am Vit-Fe Fumarate-FA (PNV FOLIC ACID + IRON) 27-1 MG TABS (3 sources) Start: 09-20-2017 take 1 tablet by mouth once daily Vit-Fe Fumarate-FA (PNV FOLIC ACID + IRON) 27-1 MG TABS Indications: PCOS (polycystic ovarian syndrome) Take 1 tablet by mouth daily 30 tablet 6 09/20/2017 Active vitamin 27-1 MG tablet 1 tablet (1 source) Start: 06-20-2022 vitam in 27-1 MG tablet 1 tablet raNITIdine 150 mg oral tablet (3 sources) Histamine-2 Receptor Antagonist Start: 07-01-2015 ranitidine (ZANTAC) 150 MG tablet 150 mg daily as needed 0 07/01/2015 Active ropivacaine 0.2% in sodium chloride 0.9% 200mL (OB) epidural (1 source) Start: 06-19-2022 ropivacaine 0. 2% in sodium chloride 0.9% 200mL (OB) epidural sertraline 100 mg oral tablet (20 sources) Serotonin Reuptake Inhibitor Start: 2024 End: 01-14-2025 take 2 tablets by mouth once daily sertraline (ZOLOFT) 100 mg tablet Indications: Bipolar disorder, current episode mixed, moderate (HCC) , Generalized anxiety disorder Take 2 tablets by mouth once daily. 180 tablet 2024 Active Start: 09-07-2023 End: 2024 take 1 tablet by mouth once daily sertraline (ZOLOFT) 100 mg tablet Indications: Bipolar affective disorder, currently manic, moderate (HCC) , Generalized anxiety disorder take 1 tablet by mouth once daily with 50 milligram tablet 90 tablet 1 06/05/2024 2024 Discontinued (Dosage adjustment) Start: 09-07-2023 End: 01-08-2025 take 1 tablet by mouth once daily in the evening sertraline (ZOLOFT) 50 mg tablet Indications: Bipolar disorder, current episode mixed, moderate (HCC) Take 1 tablet by mouth every evening. - take with 100mg tablet. 90 tablet 1 07/12/2024 2024 Discontinued (Dosage adjustment) Start: 05-27-2023 End: 08-25-2023 take 1 tablet by mouth once daily sertraline (ZOLOFT) 50 mg tablet Indications: Generalized anxiety disorder , Bipolar affective disorder, currently manic, moderate (HCC) Take 1 tablet by mouth once daily. - take with 100mg tablet. 90 tablet 0 05/27/2023 08/25/2023 Active Start: 03-03-2023 End: 08-25-2023 take 1 tablet by mouth once daily sertraline (ZOLOFT) 100 mg tablet Indications: Generalized anxiety disorder , Bipolar affective disorder, currently manic, moderate (HCC) Take 1 tablet by mouth once daily. - take with 50mg tablet. 90 tablet 0 05/27/2023 08/25/2023 Active Start: 02-07-2023 End: 03-03-2023 take 0.5 tablet by mouth every other day sertraline (ZOLOFT) 100 mg tablet Indications: Moderate episode of recurrent major depressive disorder (HCC) , Generalized anxiety disorder Take 0.5 tablets by mouth every other day for 14 days. 4 tablet 0 02/07/2023 03/03/2023 Discontinued Start: 12-21-2022 End: 02-19-2023 take 1 tablet by mouth once daily, then take 0.5 tablet by mouth once daily sertraline (ZOLOFT) 100 mg tablet Indications: Generalized anxiety disorder Take 1 tablet by mouth once daily for 30 days, THEN 0.5 tablets once daily. 45 tablet 0 12/21/2022 02/07/2023 Discontinued Start: 06-19-2022 take 150 mg by mouth once [place] y 150 mg, Oral, DAILY, First dose on 06/19/22 at 1430, Until Discontinued Start: 05-07-2022 End: 12-21-2022 Sertraline (Zoloft) 100 mg t ablet Active 150 mg PO DAILY June 18, 2022 9:50pm Start: 04-09-2022 End: 05-21-2022 take 1 tablet by mouth once daily Sertraline 100 mg tablet Discontinued 100 mg PO DAILY April 09, 2022 12:11pm May 21, 2022 11:33am Start: 03-11-2022 End: 04-09-2022 take 1 tablet by mouth once daily Sertraline (Zoloft) 50 mg tablet Discontinued 50 mg PO DAILY March 11, 2022 12:00am April 09, 2022 12:11pm Start: 10-17-2019 ZOLOFT 50 MG T ABS 1 tablet daily SERTRALINE HCL [id number] Lydia Harkins LPN sertraline HCl ( ZOLOFT ORAL) Take by mouth. 0 Active Comment on above: Take by mouth. Take 150 mg by mouth once daily. Take 1 tablet by jake th once daily for 30 days, THEN 0.5 tablets once daily. Take 0.5 tablets by mouth every other day for 14 days. Take 1 tablet by jake th once daily. Take 1 tablet by jake th once daily. - take with 50mg tablet. Take 1 tablet by [facility] once daily. - take with 100mg tablet. 5 ml sodium chloride 9 mg/ml injection (6 sources) Start: 06-20-2022 sodium chloride flush 0.9 % injection 5-40 mL Start: 06-19-2022 10 mL, IntraVE Nous, EVERY 12 HOURS SCHEDULED (2 times per day), First dose on 06/19/22 at 2100, Until Discontinued Start: 06-19-2022 IntraVENous, a t 5-250 mL/hr, PRN, if patient receiving piggyback infusions and maintenance fluids are not ordered OR KVO fluids to protect IV site / prevent frequent line interruptions/ long duration, Starting on 06/19/22 at 1408 For piggyback infusion, administer at same rate as piggyback for a total of 25 mL. Enter 25 mL into dose field and piggyback rate into rate field of order. If piggyback is infusing at a rate less than 100 mL/hr, enter 25 mL into dose field and 100 mL/hr into rate field of order. For KVO fluids, enter rate of 20 mL/hr or less into rate field of order. Start: 06-19-2022 take 10 mL intraveno usly once as needed 10 mL, IntraVENous, PRN, Starting on 06/19/22 at 1408, Until Discontinued, Line Care, After every IV line use Start: 07-10-2021 End: 07-11-2021 0.9 % sodium chloride bolus Start: 05-11-2021 End: 05-11-2021 0.9 % sodium chloride bolus tiZANidine 4 mg oral tablet (16 sources) Central alpha-2 Adrenergic Agonist Start: 03-28-2024 End: 06-21-2024 take 1 tablet by mouth three times daily tiZANidine (ZANAFLEX) 4 mg tablet Indications: Pelvic floor dysfunction in female Take 1 tablet by mouth three times a day. 30 tablet 1 03/28/2024 06/21/2024 Discontinued Start: 08-09-2023 End: 08-19-2023 take 1 tablet by mouth twice daily tiZANidine (ZANAFLEX) 4 mg tablet Indications: Upper back pain Take 1 tablet by mouth two times a day for 10 days. 20 tablet 0 08/09/2023 08/19/2023 Active Comment on above: Take 1 tablet by jake th two times a day for 10 days. Completed/Discontinued Medications Medication Drug Class(es) Dates Sig (Normalized) Sig (Original) acetaminophen 325 mg / HYDROcodone bitartrate 5 mg oral tablet (20 sources) Opioid Agonist Start: 03-06-2025 End: 03-18-2025 Hydrocodone-Acetami nophen 5-325 mg tablet Discontinued 1 {tbl} PO EVERY 6 HOURS NEEDED as needed for Pain 12 March 06, 2025 March 18, 2025 9:36am Start: 03-29-2024 End: 10-11-2024 Hydrocodone-Acetaminophen 5- 325 mg tablet Discontinued 1 {tbl} PO EVERY 4 HOURS NEEDED as needed for Pain 15 March 29, 2024 October 11, 2024 3:09pm Start: 09-27-2022 End: 09-30-2022 take 1 tablet by mouth every six hours [place] 325- 5 mg oral tablet Dose = 1 tab(s), Oral, q6h, # 12 tab(s), 0 Refill(s), Myalgia, 63.6 Start Date: 09/27/22 Stop Date: 09/30/22 Status: Ordered Start: 09-17-2022 End: 07-28-2023 Hydrocodone-Acetaminophen 5- 325 mg tablet Discontinued 1 {tbl} PO EVERY 4 HOURS NEEDED as needed for Pain 07 04September 17, 2022 July 28, 2023 1:32pm Start: 09-17-2022 End: 07-28-2023 take 1 tablet by mouth every four hours as needed Hydrocodone-Acetaminophen Discontinued 1 TABLET PO EVERY 4 HOURS NEEDED 07 04September 17, 2022 July 28, 2023 1:32pm Start: 10-07-2021 End: 12-21-2021 Hydrocodone-Acetaminophen 1 TABLET tablet Discontinued 1 {tbl} PO EVERY 4 HOURS NEEDED as needed for Pain 07 04October 07, 2021 December 21, 2021 2:06pm Start: 10-07-2021 End: 12-21-2021 take 1 tablet by mouth every four hours as needed Hydrocodone-Acetaminophen Discontinued 1 TABLET PO EVERY 4 HOURS NEEDED 07 04October 07, 2021 December 21, 2021 2:06pm Start: 06-05-2020 End: 06-07-2020 Hydrocodone-Acetaminophen 1 EACH tablet Discontinued 1 NMA PO EVERY 6 HOURS NEEDED as needed for Pain Or Fever 6 June 05, 2020 June 06, 2020 12:00am June 07, 2020 12:02am Start: 06-05-2020 End: 06-07-2020 Hydrocodone-Acetaminophen Di scontinued 1 EACH PO EVERY 6 HOURS NEEDED 6 June 05, 2020 June 07, 2020 12:02am Start: 08-19-2019 End: 08-22-2019 Hydrocodone-Acetaminophen 1 TABLET tablet Discontinued 1 {tbl} PO EVERY 4 HOURS NEEDED as needed for Pain 10 August 19, 2019 August 20, 2019 1:00am August 22, 2019 1:07am Start: 08-19-2019 End: 08-22-2019 take 1 tablet by mouth every four hours as needed Hydrocodone-Acetaminophen Discontinued 1 TABLET PO EVERY 4 HOURS NEEDED 10 August 19, 2019 August 22, 2019 1:07am acetaminophen 325 mg / oxyCODONE hydrochloride 5 mg oral tablet (14 sources) Opioid Agonist Start: 11-27-2024 End: 12-04-2024 Oxycodone-Acetaminophen (Percocet) 5-325 mg tablet Discontinued 1 {tbl} PO EVERY 6 HOURS 10 November 27, 2024 December 03, 2024 1:00am December 04, 2024 1:11am Start: 06-24-2022 End: 07-28-2023 Oxycodone-Acetaminophen (Per cocet) 5-325 mg tablet Discontinued 1 {tbl} PO EVERY 6 HOURS as needed for pain 21 04June 24, 2022 July 28, 2023 1:33pm [id number] 200 actuat albuterol 0.09 mg/actuat metered dose inhaler (20 sources) beta2-Adrenergic Agonist Start: 09-01-2019 End: 05-27-2023 take 2 puff(s) by inhalation every four hours as needed albuterol HFA (PROVENTIL HFA, VENTOLIN HFA) 90 mcg/actuation inhaler Inhale 2 Puffs as instructed every 4 hours as needed. 1 Inhaler 09/01/2019 05/27/2023 Discontinued (Course of therapy completed) Comment on above: Inhale 2 Puffs as instructed every 4 piero rs as needed. amoxicillin 875 mg / clavulanate 125 mg oral tablet (14 sources) Penicillin-class Antibacterial Start: 02-10-2022 End: 02-20-2022 Amoxicillin-Pot Clavulanate 875-125 mg tablet Discontinued 1 {tbl} PO TWICE A DAY 22 07February 10, 2022 12:00am February 19, 2022 12:00am February 20, 2022 12:05am Start: 02-10-2022 End: 02-20-2022 take 1 tablet by mouth twice daily Amoxicillin-Pot Clavulanate Discontinued 1 TABLET PO TWICE A DAY 22 07February 10, 2022 12:00am February 20, 2022 12:05am baclofen 20 mg oral tablet (7 sources) gamma-Aminobutyric Acid-ergic Agonist Start: 12-08-2022 End: 01-21-2023 take 1 tablet by mouth once daily at bedtime, then take 1 tablet by mouth twice daily baclofen (LIORESAL) 20 mg tablet Take 1 tablet by mouth daily at bedtime for 14 days, THEN 1 tablet twice daily. 74 tablet 0 12/08/2022 01/21/2023 Start: 11-12-2022 End: 02-10-2023 take 1 tablet by mouth once daily at bedtime baclofen (LIORESAL) 10 mg tablet Take 1 tablet by mouth daily at bedtime. 30 tablet 2 11/12/2022 02/10/2023 Active Comment on above: Take 1 tablet by jake th daily at bedtime. Take 1 tablet by jake th daily at bedtime for 14 days, THEN 1 tablet twice daily. brompheniramine maleate 0.4 mg/ml / dextromethorphan hydrobromide 2 mg/ml / pseudoephedrine hydrochloride 6 mg/ml oral solution (11 sources) alpha-Adrenergic Agonist, Uncompetitive Z-qeanrq-D-aspartate Receptor Antagonist, Sigma-1 Agonist Start: End: take 10 mL by mouth every six hours as needed Brompheniramine-Pse udoeph-DM (BROMFED DM) 2-30-10 mg/5 mL syrup Take 10 mL by mouth four times a day as needed. 118 mL 06/15/2024 07/12/2024 Discontinued (Course of therapy completed) 24 hr buPROPion hydrochloride 150 mg extended release oral tablet (17 sources) Aminoketone Start: End: take 1 tablet by mouth once daily Bupropion Hcl 150 MG tablet extended release 24 hr Discontinued 150 mg PO DAILY May 02, 2018 12:00am May 09, 2018 5:05pm busPIRone hydrochloride 5 mg oral tablet (20 sources) Start: End: take 2 tablets by mouth twice daily as needed busPIRone (BUSPAR) 5 mg tablet Indications: Generalized anxiety disorder Take 2 tablets by mouth twice daily as needed. 01/21/2021 10/19/2021 Discontinued Start: 06-05-2020 End: 08-26-2021 take 1 tablet by mouth twice daily Buspirone 5 MG tablet Discontinued 5 mg PO TWICE A DAY June 05, 2020 12:00am August 26, 2021 4:26pm Start: 01-10-2018 busPIRone 15 m g oral tablet 0 Refill(s) Start Date: 01/10/18 Status: Ordered cephalexin 500 mg oral capsule (17 sources) Cephalosporin Antibacterial Start: 08-26-2021 End: 09-02-2021 take 1 capsule by mouth twice daily Cephalexin 500 mg capsule Discontinued 500 mg PO TWICE A DAY 14 August 26, 2021 1:00am September 01, 2021 1:00am September 02, 2021 1:01am DULoxetine 30 mg delayed release oral capsule (11 sources) Serotonin and Norepinephrine Reuptake Inhibitor Start: 12-28-2022 End: 04-09-2023 take 1 capsule by mouth once daily DULoxetine (CYMBALTA) 30 mg capsule Indications: Generalized anxiety disorder , Fibromyalgia Take 1 capsule by mouth once daily. 60 capsule 0 02/08/2023 03/03/2023 Discontinued (Side Effects) Comment on above: Take 1 capsule by [facility] once daily. escitalopram 10 mg oral tablet (20 sources) Serotonin Reuptake Inhibitor Start: 04-07-2021 End: 10-19-2022 take 1 tablet by mouth once daily Escitalopram Oxalate (Lexapro) 10 mg tablet Discontinued 10 mg PO DAILY August 26, 2021 1:00am January 14, 2022 11:41am Comment on above: Take 1 tablet by jake th once daily. gabapentin 300 mg oral capsule (6 sources) Anti-epileptic Agent Start: 12-24-2022 End: 02-07-2023 take 1 capsule by mouth once daily at bedtime gabapentin (NEURONTIN) 300 mg capsule Take 1 capsule by mouth daily at bedtime for 30 days. 30 capsule 0 12/24/2022 02/07/2023 Discontinued (Course of therapy completed) Comment on above: Take 1 capsule by mo [facility] daily at bedtime for 30 days. 1 ml HYDROmorphone hydrochloride 1 mg/ml cartridge (1 source) Opioid Agonist Start: 05-11-2021 End: 05-11-2021 HYDROmorphone (DILAUDID) injection 1 mg hyoscyamine sulfate 0.125 mg sublingual tablet (17 sources) Start: 05-02-2018 End: 05-09-2018 take 1 tablet under the tongue every six hours as needed Hyoscyamine Sulfate 0.125 MG tablet, sublingual Discontinued 0.125 mg SL EVERY 6 HOURS NEEDED as needed for stomach May 02, 2018 12:00am May 09, 2018 5:05pm 1 ml ketorolac tromethamine 30 mg/ml injection (5 sources) Nonsteroidal Anti-inflammatory Drug, Cyclooxygenase Inhibitor Start: 03-28-2024 End: 03-28-2024 keTORolac 30 mg injection (Toradol) Start: 03-28-2024 End: 03-28-2024 keTORolac 30 mg injection (T oradol) Start: 08-03-2022 End: 08-03-2022 keTORolac 60 mg injection (T ORADOL) Start: 05-11-2021 End: 05-11-2021 ketorolac (TORADOL) injectio n 30 mg levothyroxine sodium 0.025 mg oral tablet (3 sources) l-Thyroxine Start: 10-14-2023 End: 01-12-2024 take 1 tablet by mouth once daily before breakfast levothyroxine (SYNTHROID) 25 mcg tablet Take 1 tablet by mouth daily before breakfast. 90 tablet 0 10/14/2023 12/16/2023 Discontinued (Clinical Decision) Comment on above: Take 1 tablet by jake daily before breakfast. lidocaine 0.05 mg/mg medicated patch (17 sources) Antiarrhythmic, Amide Local Anesthetic Start: 04-03-2021 End: 08-26-2021 Lidocaine (Lidoderm) 5 % adhesive patch,medicated Discontinued 1 NMA TOPICAL DAILY 1 April 03, 2021 12:00am August 26, 2021 4:26pm leave on most painful area for up to 12 hrs per day. meclizine hydrochloride 25 mg oral tablet (17 sources) Antiemetic Start: 12-25-2021 End: 01-25-2022 take 1 tablet by mouth three times daily as needed for nausea and vomiting Meclizine 25 mg tablet Discontinued 25 mg PO THREE TIMES A DAY as needed for nausea and vomiting December 25, 2021 12:00am January 25, 2022 11:31am medroxyPROGESTERone acetate 10 mg oral tablet (17 sources) Progestin Start: 01-10-2019 End: 01-20-2019 take 1 tablet by mouth once daily Medroxyprogesterone 10 mg tablet Discontinued 10 mg PO daily 10 January 10, 2019 12:00am January 19, 2019 12:00am January 20, 2019 12:08am meloxicam 15 mg oral tablet (3 sources) Nonsteroidal Anti-inflammatory Drug Start: 05-26-2017 End: 06-20-2022 take 1 tablet by mouth once daily at mealtime meloxicam (MOBIC) 15 MG tablet TAKE 1 TABLET BY MOUTH EVERY DAY WITH FOOD 05/26/2017 06/20/2022 Discontinued (Stop Taking at Discharge) methocarbamol 750 mg oral tablet (5 sources) Muscle Relaxant Start: 03-29-2024 End: 11-22-2024 take 2 tablets by mouth every six hours Methocarbamol 750 mg tablet Discontinued 1500 mg PO EVERY 6 HOURS 24 March 29, 2024 12:00am November 22, 2024 4:20pm metroNIDAZOLE 500 mg oral tablet (20 sources) Nitroimidazole Antimicrobial Start: 10-11-2024 End: 10-18-2024 take 1 tablet by mouth twice daily Metronidazole 500 mg tablet Discontinued 500 mg PO TWICE A DAY 14 October 11, 2024 1:00am October 17, 2024 1:00am October 18, 2024 1:12am Start: 03-25-2019 End: 04-01-2019 take 1 tablet by mouth twice daily Metronidazole (Flagyl) 500 mg tablet Discontinued 500 mg PO TWICE A DAY 14 March 25, 2019 12:00am March 31, 2019 12:00am April 01, 2019 12:07am 1 ml morphine sulfate 4 mg/ml cartridge (1 source) Opioid Agonist Start: 07-10-2021 End: 07-10-2021 morphine injection 4 mg nitrofurantoin, macrocrystals 100 mg oral capsule (17 sources) Nitrofuran Antibacterial Start: 10-21-2020 End: 10-28-2020 take 1 capsule by mouth twice daily at mealtime Nitrofurantoin Macrocrystal 100 mg capsule Discontinued 100 mg PO TWICE A DAY 14 October 21, 2020 1:00am October 27, 2020 1:00am October 28, 2020 1:03am administer with food (meal or snack) omeprazole 40 mg delayed release oral capsule (4 sources) Proton Pump Inhibitor Start: 08-09-2023 End: 10-14-2023 take 1 capsule by mouth once daily before breakfast omeprazole (PRILOSEC) 40 mg capsule Indications: Epigastric abdominal pain Take 1 capsule by mouth daily before breakfast. 30 capsule 0 08/09/2023 10/14/2023 Discontinued (Course of therapy completed) Comment on above: Take 1 capsule by mo [facility] daily before breakfast. pantoprazole 40 mg delayed release oral tablet (17 sources) Proton Pump Inhibitor Start: 06-05-2020 End: 08-26-2021 take 1 tablet by mouth once daily Pantoprazole 40 MG tablet Discontinued 40 mg PO DAILY June 05, 2020 12:00am August 26, 2021 4:26pm PARoxetine hydrochloride 40 mg oral tablet (20 sources) Serotonin Reuptake Inhibitor Start: 10-13-2017 take 1 tablet by mouth once daily in the morning PARoxetine (PAXIL) 30 MG tablet Indications: Anxiety Take 1 tablet by mouth every morning 30 tablet 5 10/13/2017 Active Start: 11-14-2014 End: 10-04-2018 take 1 tablet by mouth once daily Paroxetine Hcl (Paxil) 40 mg tablet Discontinued 40 mg PO DAILY August 09, 2018 1:00am October 04, 2018 4:00pm predniSONE 20 mg oral tablet (20 sources) Start: 06-19-2024 End: 07-12-2024 predniSONE (DELTASONE) 20 mg tablet Take 60 mg for 5 days, then 20 mg for 2 days, 1 pill for 1 day 18 tablet 06/19/2024 07/12/2024 Discontinued (Course of therapy completed) Start: 04-27-2024 End: 05-02-2024 take 2 tablets by mouth once daily predniSONE (DELTASONE) 20 mg tablet Indications: URI, acute Take 2 tablets by mouth once daily for 5 days. 10 tablet 0 04/27/2024 05/02/2024 Active Start: 10-20-2022 End: 10-27-2022 take 1 tablet by mouth once daily predniSONE (DELTASONE) 10 mg tablet Indications: BING positive , Polyarthralgia , Polymyalgia (HCC) Take 1 tablet by mouth once daily for 7 days. Take with Prednisone two 20mg tablets - to make 50mg daily. 7 tablet 0 10/20/2022 10/27/2022 Active Start: 10-19-2022 End: 10-26-2022 take 3 tablets by mouth once daily predniSONE (DELTASONE) 20 mg tablet Take 3 tablets by mouth once daily for 7 days. 21 tablet 0 10/19/2022 10/26/2022 Active Start: 10-07-2022 End: 10-19-2022 take 1 tablet by mouth twice daily prednisone 10mg tab (TAPER) Taper 30-20-10-5 mg x 3 days each dose, Oral, BID, # 39 tab(s), 0 Refill(s) Start Date: 10/07/22 Stop Date: 10/19/22 Status: Ordered Start: 10-19-2021 End: 10-19-2022 take 4 tablets by mouth once daily, then take 3 tablets by mouth once daily, then take 2 tablets by mouth once daily, then take 1 tablet by mouth once daily predniSONE (DELTASONE) 10 mg tablet Indications: Pleurisy TAKE BY MOUTH 4 TABLETS DAILY FOR 2 DAYS, THEN 3 TABLETS DAILY FOR 2 DAYS, THEN 2 TABLETS DAILY FOR 2 DAYS, THEN 1 TABLET DAILY FOR 2 DAYS. 20 tablet 10/19/2021 10/19/2022 Discontinued (Course of therapy completed) Comment on above: TAKE BY MOUTH 4 TABL ETS DAILY FOR 2 DAYS, THEN 3 TABLETS DAILY FOR 2 DAYS, THEN 2 TABLETS DAILY FOR 2 DAYS, THEN 1 TABLET DAILY FOR 2 DAYS. Take 4 tabs daily fo r 3 days, then 2 tabs daily for 3 days, then 1 tab daily for 3 days with food. Take 3 tablets by mo [facility] once daily for 7 days. Take 1 tablet by jake once daily for 7 days. Take with Prednisone two 20mg tablets - to make 50mg daily. Prenat.Vits,Justine,Min-Iron -Folic tablet (5 sources) Start: 12-21-2021 End: 10-11-2024 Prenat.Vits,Justine,Min-Iro n-Folic tablet Discontinued 1 {tbl} PO DAILY December 21, 2021 12:00am October 11, 2024 3:09pm progesterone 200 mg oral capsule (17 sources) Progesterone Start: 12-04-2021 End: 01-04-2022 Progesterone Micronized 200 mg capsule Discontinued 200 mg VAGINAL AT BEDTIME December 04, 2021 1:00am January 04, 2022 9:33am continue until 10 weeks Start: 12-04-2021 End: 01-04-2022 Progesterone Micronized Disc ontinued 200 MG VAGINAL AT BEDTIME December 04, 2021 1:00am January 04, 2022 9:33am continue until 10 weeks promethazine hydrochloride 12.5 mg oral tablet (20 sources) Phenothiazine Start: 12-20-2021 promethazine 1 2.5 mg rectal suppository Dose : 12.5 mg = 1 supp, Rectal, q6hr, # 18 supp, 0 Refill(s), Gastroenteritis Start Date: 12/20/21 Status: Ordered Start: 07-10-2021 End: 05-27-2023 take 0.5 tablet by mouth every six hours as needed for nausea promethazine (PHENERGAN) 25 mg tablet Take 0.5 tablets by mouth every 6 hours as needed for nausea/vomiting. 10 tablet 07/10/2021 05/27/2023 Discontinued (Course of therapy completed) Start: 02-09-2018 End: 05-09-2018 Promethazine 25 MG tablet Discontinued 12.5 mg PO EVERY 4 HOURS NEEDED as needed for Nausea February 09, 2018 12:00am May 09, 2018 5:05pm Start: 02-09-2018 End: 05-09-2018 take 12.5 mg by mouth every four hours as needed Promethazine Discontinued 12.5 MG PO EVERY 4 HOURS NEEDED February 09, 2018 12:00am May 09, 2018 5:05pm Start: 09-02-2017 End: 06-20-2022 take 1 tablet by mouth every six hours as needed for nausea and vomiting Promethazine 12.5 mg tablet Discontinued 12.5 mg PO EVERY 6 HOURS as needed for nausea and vomiting 90 January 04, 2022 1:34pm May 21, 2022 11:32am Comment on above: Take 0.5 tablets by mouth every 6 hours as needed for nausea/vomiting. sulfamethoxazole 800 mg / trimethoprim 160 mg oral tablet (17 sources) Dihydrofolate Reductase Inhibitor Antibacterial, Sulfonamide Antimicrobial Start: 2018 End: 2018 Sulfamethoxazole-Tri methoprim (Bactrim Ds) 800-160 mg tablet Discontinued 1 {tbl} PO TWICE A DAY 6 3 March 25, 2019 12:00am March 27, 2019 12:00am March 28, 2019 12:06am SUMAtriptan 25 mg oral tablet (14 sources) Serotonin-1b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 the IUD in 3 months. she is still struggling with the pain enough that she is missing out on reugalr activities. History 4 Elective abortions Hx Para 4 Spontaneous abortions 1 Hx # Term Pregnancies 2 Ectopic pregnancies Hx # Pregnancies 1 Multiple births # of living children 4 Past Pregnancies Del. Date Name GA/Weeks Outcome Route Bth Weight Infant Gen Labor Lgth Anesthesia Del Locatn Provider FOB Unknown 2018 SAB, D C SM 08/14/09 Toby Nuñez 34 live - 4lbs 11oz Male 2 hours epidural Ak shirley General 02/14/16 Emily 38 live - full term 7lbs 13oz Female 26 hours epidural Jeffery Fiore 06/24/22 Amaury 33 live - Male spinal [facility] Scott on Jass Rashid 06/24/22 Gabi 33 live - Male spinal [facility] Scott on Jass Rashid Delivery Date: 08/14/09 Last Updated by: Alison Noel Pre-term labor. Delivery Date: 02/14/16 Last Updated by: Alison Noel No issues during or delivery. Delivery Date: 06/24/22 Last Updated by: Charis Desai see problem list for complications, and ptl pprom 33 lt bs . Delivery Date: 06/24/22 Last Updated by: Charis Desai See problem list for complications, [facility] Const Constitutional: Denies fatigue, fever(s), headache(s), increased appetite, poor appetite, weight gain or weight loss GI GI: Reports as per HPI and abdominal p (more content not included)... Normal [facility] Bilirubin Test strip Ql (U)O rdered By: Al Hassan on 03-06-2025 Bilirubin Ql (U) 1 mg/dL High Negative [facility] Comment on above: COLOR OF URINE MAY A FFECT DIPSTICK RESULTS. Emergency Department Summary on 03-06-2025 Emergency Department Summary [facility] Medical Records Department [address] [place] [address] Emergency Department Summary 03/06/25 MR#: [id number] Acct: [id number] Name: LILLIAN DRAKE Rep #: [id number] : 1985 39 From: Al Hassan MD PCP: Dr. Jennifer Werner MD Status:REG ER Location: ED HPI HPI - GI History of Present Illness Chief Complaint: Abd Pain Informant: patient Narrative Narrative: 39-year-old female has been having pelvic pain off and on for months. She states she had an IUD placed several weeks ago as a result of this hoping it would help the pain but has been making it worse and so she has another appointment with her it security consultant in 2 weeks but was in more severe pain this morning. Is not lateralizing, pelvic, sometimes makes her nauseated no vomiting no fevers or chills no vaginal discharge or bleeding. She has PCOS and her bleeding is off and on but none recently. She is uncertain if she wants the IUD out right now. She is on no other female hormone prescription medications. This is the same pain has been going on for several months. She states she has an operative planning appointment for possible hysterectomy coming up with same it security consultant. [facility] Medical History Dyspareunia depression History of premature rupture of membranes (PPROM) History of pre-term labor Polyhydramnios Asthma Anxiety Polyhydramnios affecting IUGR (intrauterine growth restriction) Anxiety Former smoker Hyperemesis Vaginal bleeding during Dichorionic diamniotic twin Rh negative status during Infertility Supervision of high risk , antepartum Marijuana use, episodic Concussion without loss of consciousness Cervical strain COVID-19 Depression Back pain Abnormal bruising Knee pain Chest pain Migraines Fatigue Shoulder pain Home Medications ???Medication ???Instructions ???Recorded ???Last Taken ???Type sertraline 100 mg tablet (Zoloft) 150 mg PO DAILY Check with primar y 06/18/22 06/24/22 10:00 History doctor lithium carbonate 300 mg 250 mg PO DAILY 11/22/24 Unknown H istory tablet,extended release naproxen 500 mg tablet 500 mg PO BID PRN pain #30 tabs Unknown Rx cyclobenzaprine 10 mg tablet 10 mg PO TID PRN muscle spasm #30 01/30/25 Unknown Rx tabs hydrocodone-acetaminoph en 5-325mg 1 tab PO Q6H PRN PRN Pain 3 days 03/06/25 Unknown Rx 5mg-325mg #12 TABLETS Allergy/AdvReac Type Severity Reaction Status Date / Time dicyclomine (From Bentyl) Allergy migraine Verified 03/06/25 10:02 Penicillins Allergy Rash Verified 03/06/25 10:02 Surgical History delivery delivered H/O dilation and curettage Social History adopted: No household members: significant other and children number of children: 2 current occupational status: employed 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; [employer] Smoking Status: Former smoker alcohol intake: current details: occasionally; not while substance use type: marijuana caffeine: Yes what type of physical activity do you participate in: none seatbelt use: always do you feel safe at home: Yes additional social history: Baljinder WEBB ED Constitutional Constitutional ED: Denies chills or fever(s) Eyes Eyes: Denies change in vision or diplopia ENT ENT ED: Denies rhinorrhea or sore throat Cardiovascular Cardiovascular: Denies chest pain or palpitations Respiratory/Chest Respiratory/Chest: Denies cough or dyspnea Gastrointestinal Gastrointestinal: Reports abdominal pain and nausea; Denies diarrhea or vomiting Genitourinary Genitourinary ED: Denies dysuria or hematuria Musculoskeletal Musculoskeletal: Reports back pain; Denies neck pain Integumentary Denies abscess or rash Neurologic Neurologic: Denies headache(s), paresthesias or weakness Psychiatric Psychiatric: Reports anxiety; Denies suicidal thoughts EXAM Physical Exam Const Vital Signs: 03/06/25 10:02 03/06/25 12:16 03/06/25 14:00 Temperature 96.5 F L Temperature Source Temporal Pulse Rate 63 57 L 61 Respiratory Rate 18 16 14 Blood Pressure 114/75 117/52 L 107/50 L Blood Pressure Mean 88 73 69 Pulse Ox 98 98 97 Oxygen Delivery Method Room Air Room Air Room Air Positive well nourished and well developed General Appearance ED: well developed and NAD HEENT Reports moist mucous membranes normocephalic and atraumatic Eyes PERRL and EOMs intact bilaterally Neck full ROM and supple Resp normal respiratory effort and clear to auscultation bilaterally Cardio regular rate, regular rhyth (more content not included)... Normal [facility] Ketones Test strip Ql (U)Ord ered By: Al Hassan on 03-06-2025 Ketones Ql (U) 5 mg/dl High Negative [facility] Microscopic analysis of urin e for red blood cells (RBC)Ordered By: Al Hassan on 03-06-2025 Microscopic analysis of urine for red blood cells (RBC) 0 SEEN /hpf 0-5 [facility] Mucus LM Ql (Urine sed)Order ed By: Al Hassan on 03-06-2025 Mucus Ql (Urine sed) 1+ /hpf [facility] Nitrite Test strip Ql (U)Ord ered By: Al Hassan on 03-06-2025 Nitrite Ql (U) Negative Negative [facility] ,Urineon 03-06-2025 Beta HCG ( test) Ql (U) Negative Normal [facility] Comment on above: Result Comment: Very dilute urine specimens, as indicated by a low specific gravity, may not contain accounting representative levels of hCG. If is still suspected, a first morning urine specimen should be collected 48 hours later and tested. Performed By: #### L 400.0001, L400.7600 ####[facility] [address] [place], [place], [id number] Protein Test strip Ql (U)Ord ered By: Al Hassan on 03-06-2025 Protein Ql (U) 30 mg/dl High Negative [facility] Squamous epithelial cells de tection in urine sediment by light microscopyOrdered By: Al Hassan on 03-06-2025 Epithelial cells.squamous LM Ql (Urine sed) 0-5 SEEN /hpf 5-10 [facility] Transvaginal Non-on 03-06-2025 Transvaginal Non- [facility] Imaging Services [address] [place], [place] [id number] Transvaginal Non- MR#: [id number] Acct: [id number] Name: LILLIAN DRAKE Rep #: [id number] : 1985 F 39 From: Dilshad Joya PCP: Dr. Jennifer Werner MD Status: REG ER Study: Transvaginal Non- Date of Exam: Exam# [id number] Ordering Dr: Al Hassan MD PROCEDURE: TRANSVAGINAL NON- 03/06/2025 REASON FOR EXAM: PAIN, CHECK IUD PLACEMENT TECHNIQUE: Transabdominal pelvic ultrasound COMPARISON: Transvaginal pelvic ultrasound 02/08/2025. FINDINGS: Measurements: Uterus: 10.6 x 6.0 x 5.7 cm with a volume of 187 mL Endometrial Thickness: 9 mm Right Ovary: 3.7 x 2.8 x 2.7 cm with a volume of 14.8 mL. Left Ovary: 6.1 x 2.6 x 2.7 cm with a volume of 22.3 mL. A left ovarian follicular cyst is measured at 2.1 x 2.3 x 2.2 cm. Uterus: No focal uterine abnormality is seen. Satisfactory intrauterine device positioning. Endometrium: Unremarkable. Right ovary: Normal size and echotexture. Left ovary: Left ovarian follicular cyst. Unremarkable appearance, otherwise Other: No large pelvic mass identified. No free fluid is evident US/Transvaginal Non- IMPRESSION: 1. Left ovarian follicular cyst. 2. No free fluid is seen. 3. Satisfactory intrauterine device positioning Reading Location: [address] CC: Dr. Al Hassan MD; Dr. Jennifer Werner MD Electrical And Electronic Assembler: Signed Normal [facility] Urinalysis, Completeon 03-06 BACTERIA 1+ /hpf Normal None Seen [facility] Comment on above: Order Comment: COLLE CTOR TO SPECIFY Performed By: #### L 400.0001, L400.7600 #### [facility] [address] [place], [address] EPI,SQUAMOUS 0-5 SEEN Normal 5-10 [facility] Comment on above: Order Comment: COLLE CTOR TO SPECIFY Performed By: #### L 400.0001, L400.7600 #### [facility] [address] [place], [address] Mucus Ql (Urine sed) 1+ /hpf Normal [facility] Comment on above: Order Comment: EDE CTOR TO SPECIFY Performed By: #### L 400.0001, L400.7600 #### [facility] [address] [place], [address] WBC 0-5 SEEN Normal 0-5 [facility] Comment on above: Order Comment: EDE CTOR TO SPECIFY Performed By: #### L 400.0001, L400.7600 #### [facility] [address] [place], [address] RBC 0 SEEN Normal 0-5 [facility] Comment on above: Order Comment: EDE CTOR TO SPECIFY Performed By: #### L 400.0001, L400.7600 #### [facility] [address] [place], [address] Urine clarityOrdered By: Jose Alfredo Hassan on 03-06-2025 Clarity (U) Clear Clear [facility] Urine color determinationOrd ered By: Al Hassan on 03-06-2025 Color (U) Yellow Yellow [facility] Urine glucose detectionOrder ed By: Al Hassan on 03-06-2025 Glucose Ql (U) Normal mg/dl Normal [facility] Urine leukocyte esterase det ection by dipstickOrdered By: Al Hassan on 03-06-2025 Leukocyte esterase Test strip Ql (U) 25 /ul High Negative [facility] Urine pHOrdered By: Al Hassan on 03-06-2025 pH (U) 6.0 [pH] 5.0 - 8.0 [facility] Urine testOrdered By: Al Hassan on 03-06-2025 HCG ( test) Ql (U) Negative [facility] Comment on above: Very dilute urine sp ecimens, as indicated by a low specificgravity, may not contain accounting representative levels of hCG. If is still suspected, a first morning urinespecimen should be collected 48 hours later and tested. Urine sediment bacteria coun t by microscopy (number/high power field)Ordered By: Al Hassan on 03-06-2025 Bacteria LM.HPF (Urine sed) [#/Area] 1 /[HPF] None Seen [facility] Urine specific gravity measu rementOrdered By: Al Hassan on 03-06-2025 Specific gravity (U) [Rel density] 1.020 1.002-1.030 [facility] Urine urobilinogen measureme ntOrdered By: Al Hassan on 03-06-2025 Urobilinogen Ql (U) Normal mg/dl Normal [facility] White blood cell countOrdere d By: Al Hassan on 03-06-2025 White blood cell count 0-5 SEEN /hpf 0-5 [facility] - Chemistry and C hemistry - challengeOrdered By: Azeb Morris on 02-27-2025 Bilirubin Ql (U) Negative [facility] Glucose Ql (U) Negative [facility] Ketones Ql (U) Negative [facility] pH (U) 6.5 [pH] [facility] Specific gravity (U) [Rel density] 1.015 [facility] Urobilinogen (U) [Mass/Vol] Negative [facility] - Hematology and Cell countsOrdered By: Azeb Morris on 02-27-2025 Hemoglobin Ql (U) Moderate [facility] - Specimen inform ationOrdered By: Azeb Morris on 02-27-2025 Clarity (U) Clear [facility] Color (U) Yellow [facility] - UrinalysisOrder ed By: Azeb Morris on 02-27-2025 Nitrite Ql (U) Negative [facility] Protein Ql (U) Negative [facility] No Panel InformationOrdered By: Azeb Morris on 02-27-2025 Urine Leukocytes Negatve [facility] Urine Non-Hemolyzed Blood [facility] Assistant Product Manager Office Visit Reporton 02-27-2025 Assistant Product Manager Office Visit Report [facility] [address], [address] [place] [address] OFFICE VISIT Date of Service: 02/27/25 MR#: [id number] Acct: [id number] Name: LILLIAN DRAKE Rep #: [id number] : 1985 Provider: EMERITA Thomas Age/Sex: 39/F Location: [facility] Status: Signed Intake Vital Signs 02/18/25 08:29 02/27/25 10:31 Height 5 ft 3 in 5 ft 3 in Weight: 165 lb BMI 29.2 BP 102/66 Intake Visit Reasons: Pelvic pain 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: No Is patient in pain?: No Allergies dicyclomine (From Bentyl) Allergy (Verified 02/27/25 10:28) migraine Penicillins Allergy (Verified 02/27/25 10:28) Rash Medications ???Medication ???Instructions ???Recorded ???Confirmed ???Type sertraline 100 mg tablet (Zoloft) 150 mg PO DAILY Check with primar y 06/18/22 02/27/25 History doctor lithium carbonate 300 mg 250 mg PO DAILY 11/22/24 02/27/25 History tablet,extended release naproxen 500 mg tablet 500 mg PO BID PRN pain #30 tabs 02/27/25 Rx cyclobenzaprine 10 mg tablet 10 mg PO TID PRN muscle spasm #30 01/30/25 02/27/25 Rx tabs Post menopausal: No Patient : No : No Control Method: 2024 [facility] Medical History Dyspareunia depression History of premature rupture of membranes (PPROM) History of pre-term labor Polyhydramnios Asthma Anxiety Polyhydramnios affecting IUGR (intrauterine growth restriction) Anxiety Former smoker Hyperemesis Vaginal bleeding during Dichorionic diamniotic twin Rh negative status during Infertility Supervision of high risk , antepartum Marijuana use, episodic Concussion without loss of consciousness Cervical strain COVID-19 Depression Back pain Abnormal bruising Knee pain Chest pain Migraines Fatigue Shoulder pain Surgical History delivery delivered H/O dilation and curettage Social History adopted: No household members: significant other and children number of children: 2 current occupational status: employed 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 Regan. She recently had Liletta placed; ultrasound after this showing stability and IUD in correct position. She reports overall pain mildly improved after Liletta however continues with this is. She is interested in hysterectomy however would like to sit down with physician to discuss procedure as well as ask questions. She denies burning with urination, urgency, or symptoms of a UTI. Denies loss of bowel or bladder control. Xray in ER stable. She does continue with pelvic pain; reports this travels into her hips and thighs. History 4 Elective abortions Hx Para 4 Spontaneous abortions 1 Hx # Term Pregnancies 2 Ectopic pregnancies Hx # Pregnancies 1 Multiple births # of living children 4 Past Pregnancies Del. Date Name GA/Weeks Outcome Route Bth Weight Infant Gen Labor Lgth Anesthesia Del Locatn Provider FOB Unknown 2018 SAB, D C SM 08/14/09 Toby Nuñez 34 live - 4lbs 11oz Male 2 hours epidural Ak shirley General 02/14/16 Emily 38 live - full term 7lbs 13oz Female 26 hours epidural Jeffery Fiore 06/24/22 Amaury 33 live - Male spinal [facility] Scott on Jass Mike 06/24/22 Gabi 33 live - Male spinal [facility] Scott on Jass Rashid Delivery Date: 08/14/09 Last Updated by: Alison Noel Pre-term labor. Delivery Date: 02/14/16 Last Updated by: Alison Noel No issues during or delivery. Delivery Date: 06/24/22 Last Updated by: Charis Desai see problem list for complications, and ptl pprom 33 ltcs bs . Delivery Date: 06/24/22 Last Updated by: Charis Desai See problem list for complications, and ptl pprom 33 ltcs bs SM. ROS Const Constitutional: Reports headache(s); Denies fatigue, fever(s), increased appetite, poor appetite, weight gain or weight loss Cardio Card: Denies chest pain Resp Resp: Denies cough or dyspnea GI GI: Reports as p (more content not included)... [facility] 02-18-2025 [facility] Telephone ([id number]) LILLIAN DRAKE ([id number]) 1985 F Date Time Provider Department 02/18/25 JENNIFER WERNER [id number] During your visit today, we recorded the following information about you: Madalyn Lomas LPN 02/18/2025 4:02 PM Signed ----- Message from Kristen Barrera sent at 02/18/2025 3:35 PM EDT ----- Regarding: Medicine/Dr. Werner/ ED follow up/ Pt requesting meds for back pain until her Virtual Appt Subject Line Format: Medicine / [Provider Name] / [Issue] Select Primary Care Department Name For Pool Routing Assistance: FAMP [facility] 200 => AG FAMP/INTM [facility] FAM MED APPT CTR TRIAGE POOL [[id number]] Patient: Lillian Drake Date of : 1985 Primary Care Provider: Jennifer Werner MD Patient has been identified by name and Date of (Y/N): Yes Patient: Lillian Drake Date of : 1985 Provider for this encounter: Jennifer Werner MD Reason for the call/escalation: Pt requesting a sooner appt, to discuss back pain. Pt seen in ED today. Pt is requesting an order of pain meds until her appt this week. Was Patient Referred to [facility]/Seek Emergency Treatment (Y/N): N/A Did Patient Agree (Y/N): N/A Was An Attempt Made To Transfer The Patient To The Office (Y/N): No Were You Able To Reach Someone At The Office (Y/N): N/A If Yes - Patient Was Transferred To (Caregivers Name): N/A If No - Which [facility] Leadership Teacher Instrumental Did You Speak With Regarding This Patient: N/A Was an appointment scheduled (Y/N): no Reason patient was requesting visit (RFV/signs and symptoms/diagnosis) : Pain meds Person calling if other than patient: N/A Return call to if other than patient: N/A Best contact number: [phone] Thank you, Kristen Yuliana February 18, 2025 3:35 PM Madalyn Lomas LPN 02/18/2025 4:04 PM Signed Returned patients call. She was seen in [place] ER this morning and does not feel like the doctor was listening to her about her back pain. She is coming in for hospital follow up on 02/21 but would like something for pain to hold her until she is seen. She is currently taking tylenol which is not helping. DELIA Hunt Roberto, MD 02/18/2025 4:52 PM Signed Chart reviewed. Orders Placed This Encounter ibuprofen (MOTRIN) 800 mg tablet Sig: Take 1 tablet by mouth three times a day as needed for pain. - take with food. Dispense: 30 tablet Refill: 0 Toney Guillaume LPN 02/18/2025 4:57 PM Signed Patient notified regarding message below and states understanding Toney Guillaume LPN Allergies As of Date: 02/18/2025 Noted Allergy Reaction DICYCLOMINE 03/27/2018 14 - Other: See Comments Comments: Headache LEXAPRO (ESCITALOPRAM OXALATE) 06/22/2019 8 - GI Upset Comments: Nausea PENICILLINS 06/06/2008 2 - Rash Date Reviewed: 2024 Reviewed by: Josephine Gutierrez MA - Fully Assessed Reason for Visit: Appointment [[id number]] Primary Visit Diagnosis:Chronic midline low back pain without sciatica [M54.50, G89.29] Order(s):ibuprofen (MOTRIN) 800 mg tabletTake 1 tablet by mouth three times a day as needed for pain. - take with food.Disp: 30 tabletRfl: 0 Prescriptions as of 02/18/2025 - ibuprofen (MOTRIN) 800 mg tablet Take 1 tablet by mouth three times a day as needed for pain. - take with food. - lithium carbonate ER 300 mg CR tablet Take 1 tablet by mouth once daily. - sertraline (ZOLOFT) 100 mg tablet Take 2 tablets by mouth once daily. 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] 06/26/2015 Abdominal pain [R10.9] 07/14/2012 03/19/2015 RUQ abdominal pain [R10.11] 11/21/2014 06/26/2015 High risk due to history of l*06/26/2015 03/30/2018 Tobacco use disorder [F17.200] 06/26/2015 10/20/2022 Rh negative state in antepartum period [O26.899*06/27/2015 03/16/2019 Recurrent major depressive disorder, in partial*11/19/2015 06/27/2020 Adjustment disorder with mixed anxiety and depr*09/14/2016 03/30/2018 Mixed hyperlipidemia [E78.2] 03/30/2018 PCOS (polycystic ovarian syndrome) [E28.2] 10/03/2008 Irritable bowel syndrome with both constipation*03/30/2018 06/27/2020 Migraine headache [G43.909] 03/30/2018 History of depression [Z86.59] 07/27/2018 03/16/2019 Family history of congenital heart defect [Z82.*07/27/2018 03/16/2019 Tobacco use during , antepartum [O99.3*07/27/2018 09/19/2019 History of drug abuse (HCC) [F19.11] 07/27/2018 03/16/2019 History of delivery, currently *07/27/2018 03/16/2019 Nausea and vomiting in [O21.9] 07/27/2018 03/16/2019 Patient requ (more content not included)... Normal [facility] Emergency Department Summary on 02-18-2025 Emergency Department Summary [facility] Medical Records Department [address] [place] [address] Emergency Department Summary 02/18/25 MR#: [id number] Acct: [id number] Name: LILLIAN DRAKE Rep #: [id number] : 1985 39 From: Kevin Heart DO PCP: Dr. Jennifer Werner MD Status:REG ER Location: ED HPI History of Present Illness Chief Complaint: Other, Pain/Inj Narrative Narrative: Patient is a 39-year-old female past medical history of asthma, depression, migraines who presented to the emergency department chief complaint of back pain. Patient states that over the last several weeks she has done a lot of moving heavy items as she was moving to a new house. She states that about 3 days ago she was carrying groceries in and bent over to warehouse picker her child and noted that she felt a pop. She states that progressively over the last few days the pain in her lower back had been progressing she states that it shoots down both of her legs. She states that she has been urinating normally for self and having normal bowel movements. Patient states that she has been taking naproxen [id number] as well as rotating Tylenol and there without much relief. [facility] Medical History Dyspareunia depression History of premature rupture of membranes (PPROM) History of pre-term labor Polyhydramnios Asthma Anxiety Polyhydramnios affecting IUGR (intrauterine growth restriction) Anxiety Former smoker Hyperemesis Vaginal bleeding during Dichorionic diamniotic twin Rh negative status during Infertility Supervision of high risk , antepartum Marijuana use, episodic Concussion without loss of consciousness Cervical strain COVID-19 Depression Back pain Abnormal bruising Knee pain Chest pain Migraines Fatigue Shoulder pain Home Medications ???Medication ???Instructions ???Recorded ???Last Taken ???Type sertraline 100 mg tablet (Zoloft) 150 mg PO DAILY Check with primar y 06/18/22 06/24/22 10:00 History doctor lithium carbonate 300 mg 250 mg PO DAILY 11/22/24 Unknown H istory tablet,extended release cyclobenzaprine 10 mg tablet 10 mg PO TID PRN muscle spasm #30 01/07/25 Unknown Rx tabs naproxen 500 mg tablet 500 mg PO BID PRN pain #30 tabs Unknown Rx cyclobenzaprine 10 mg tablet 10 mg PO TID PRN muscle spasm #30 01/30/25 Unknown Rx tabs Allergy/AdvReac Type Severity Reaction Status Date / Time dicyclomine (From Bentyl) Allergy migraine Verified 02/18/25 08:28 Penicillins Allergy Rash Verified 02/18/25 08:28 Surgical History delivery delivered H/O dilation and curettage Social History adopted: No household members: significant other and children number of children: 2 current occupational status: employed 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; [employer] Smoking Status: Former smoker alcohol intake: current details: occasionally; not while substance use type: marijuana caffeine: Yes what type of physical activity do you participate in: none seatbelt use: always do you feel safe at home: Yes additional social history: Baljinder WEBB ROS ED ROS Narrative Constitutional: Denies any fevers, chills, headaches colitis, dizziness Eyes: Denies change in vision double vision blurry vision Cardiovascular: Denies chest pain or palpitations Respiratory: Denies coughing wheezing shortness of breath Abdomen: Denies abdominal pain nausea vomit diarrhea states that she is having normal bowel movements for herself : States that she is urinating normally for self denies any painful urination hematuria or polyuria Neurological: Denies numbness, scum tingling Musculoskeletal: Complains of back pain as noted above Skin: Denies any rashes or lesions EXAM Physical Exam Narrative Exam Narrative: General: Patient lying in bed rest comfortably did not appear to be in acute distress Head: Atraumatic, normocephalic Eyes: PERRL bilaterally, EOMI bilateral, no conjunctival injection noted Neck: Soft, supple, trachea midline Cardiovascular: Regular in rhythm no murmurs gallops rubs noted Respiratory: Clear to auscultation bilaterally Abdomen: Soft, nondistended, nontender to palpation Musculoskeletal: No tenderness palpation midline of thoracolumbar spine Extremities: +5/5 strength noted in the bilateral upper and lower extremity, radial pulses +2/4 in the bilateral extremities, no pedal edema no exam Neurological: Patient follow commands that she was at [facility] years 2024 Skin: Warm, dry, intact no rashes lesions noted Const Vital Signs: 02/18/25 08:29 02/18/25 (more content not included)... Normal [facility] L/S Spine Min 4 Viewson 01-31 L/S Spine Min 4 Views [facility] Imaging Services [address] [place] [address] L/S Spine Min 4 Views MR#: [id number] Acct: [id number] Name: LILLIAN DRAKE Rep #: [id number] : 1985 F 39 From: Vazquez Redd MD PCP: Dr. Jennifer Werner MD Status: REG ER Study: L/S Spine Min 4 Views Date of Exam: 02/18/25 Exam# [id number] Ordering Dr: Kevin Heart DO EXAM: XR Lumbosacral Spine, 4 or 5 Views CLINICAL INDICATION: BACK PAIN BILATERAL TECHNIQUE: Frontal, lateral and bilateral oblique views of the lumbar spine. COMPARISON: No relevant prior studies available. FINDINGS: VERTEBRAE: Mild facet arthropathy of L4-S1. Normal alignment. No acute fracture. SACRUM/COCCYX: Unremarkable as visualized. No acute fracture. DISC SPACES: No acute findings. No significant narrowing. SOFT TISSUES: Unremarkable. RAD/L/S Spine Min 4 Views IMPRESSION: No acute fracture. Reading [facility] CC: Dr. Jennifer Werner MD; Dr. Kevin Heart DO Electrical And Electronic Assembler: Signed Normal [facility] Pelvic w/ Transvaginalon Pelvic w/ Transvaginal [facility] [address] [facility] [place] [address] Pelvic w/ Transvaginal MR#: [id number] Acct: [id number] Name: LILLIAN DRAKE Rep #: [id number] : 1985 F 39 From: Junior William MD PCP: OUT OF TOWN DOCTOR Status: REG CLI Study: Pelvic w/ Transvaginal Date of Exam: 02/08/25 Exam# [id number] Ordering Dr: Maria Regan PROCEDURE: PELVIC W/ TRANSVAGINAL 02/08/2025 REASON FOR EXAM: PAIN WITH IUD TECHNIQUE: Transabdominal and transvaginal pelvic ultrasound FINDINGS: Transabdominal and transvaginal imaging The uterus measures 9.6 x 5.7 x 4.8 cm and appears somewhat heterogeneous but no discrete fibroid is identified. Intrauterine device is identified and appears centrally located at the fundal portion of the uterus. Endometrial stripe 6 mm. Cervix appears within limits. Right ovary measures 4 x 4.7 x 1.7 cm and appears within limits. The left ovary measures 4.4 x 4 x 2.5 cm and appears within limits. No evidence of adnexal mass. No free fluid seen. Bladder volume 353 cc US/Pelvic w/ Transvaginal IMPRESSION: Study appears within limits as above. Reading Location: [facility] CC: Dr. Maria Regan MD Electrical And Electronic Assembler: Signed Normal [facility] Assistant Product Manager Office Visit Reporton 01-07-2025 Assistant Product Manager Office Visit Report [facility] [address] [place] [address], [address] [place] [address] OFFICE VISIT Date of Service: 01/07/25 MR#: [id number] Acct: [id number] Name: LILLIAN DRAKE Rep #: [id number] : 1985 Provider: Dr. Maria hansen MD Age/Sex: 39/F [place] [facility] [place]: Signed Intake Vital Signs 12/21/24 11:17 01/07/25 14:54 Height 5 ft 3 in 5 ft 3 in Weight: 169 lb 2 oz 169 lb 6 oz BMI 29.9 29.9 BP 95/49 L 105/51 L Intake Visit Reasons: terrible pelvic pain 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: No Is patient in pain?: Yes (splitting headaches, pelvic pain, lower back pain) Allergies dicyclomine (From Bentyl) Allergy (Verified 12/21/24 11:28) migraine Penicillins Allergy (Verified 12/21/24 11:28) Rash Medications ???Medication ???Instructions ???Recorded ???Confirmed ???Type sertraline 100 mg tablet (Zoloft) 150 mg PO DAILY Check with primar y 06/18/22 01/07/25 History doctor lithium carbonate 300 mg 250 mg PO DAILY 11/22/24 01/07/25 History tablet,extended release cyclobenzaprine 10 mg tablet 10 mg PO TID PRN muscle spasm #30 01/07/25 01/07/25 Rx tabs naproxen 500 mg tablet 500 mg PO BID PRN pain #30 tabs 01/07/25 Rx Post menopausal: No Patient : No : No [facility] Medical History (Updated 01/07/25 @ 15:[address] Maria Regan MD) Dyspareunia depression History of premature rupture of membranes (PPROM) History of pre-term labor Polyhydramnios Asthma Anxiety Polyhydramnios affecting IUGR (intrauterine growth restriction) Anxiety Former smoker Hyperemesis Vaginal bleeding during Dichorionic diamniotic twin Rh negative status during Infertility Supervision of high risk , antepartum Marijuana use, episodic Concussion without loss of consciousness Cervical strain COVID-19 Depression Back pain Abnormal bruising Knee pain Chest pain Migraines Fatigue Shoulder pain Surgical History delivery delivered H/O dilation and curettage Social History adopted: No household members: significant other and children number of children: 2 current occupational status: employed 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 co dyspareunia. long history of dymenorrhea. open to trying IUD still. History 4 Elective abortions Hx Para 4 Spontaneous abortions 1 Hx # Term Pregnancies 2 Ectopic pregnancies Hx # Pregnancies 1 Multiple births # of living children 4 Past Pregnancies Del. Date Name GA/Weeks Outcome Route Bth Weight Infant Gen Labor Lgth Anesthesia Del Locatn Provider FOB Unknown 2018 SAB, D C SM 08/14/09 Toby Nuñez 34 live - 4lbs 11oz Male 2 hours epidural Ak shirley General 02/14/16 Emily 38 live - full term 7lbs 13oz Female 26 hours epidural Jeffery Fiore 06/24/22 Amaury 33 live - Male spinal [facility] Scott on Jass Mike 06/24/22 Gabi 33 live - Male spinal [facility] Scott on Carlossharonbrian Rashid Delivery Date: 08/14/09 Last Updated by: Alison Noel Pre-term labor. Delivery Date: 02/14/16 Last Updated by: Alison Noel No issues during or delivery. Delivery Date: 06/24/22 Last Updated by: Charis Desai see problem list for complications, and ptl pprom 33 [facility]. Delivery Date: 06/24/22 Last Updated by: Charis Desai See problem list for complications, and ptl pprom 33 [facility]. ROS Const Constitutional: Reports headache(s); Denies fatigue, fever(s), increased appetite, poor appetite, weight gain or weight loss Cardio Card: Denies chest pain Resp Resp: Denies cough or dyspnea GI GI: Reports as per HPI, abdominal pain and nausea; Denies constipation or vomiting : Reports as per HPI; Denies difficulty voiding, dysuria, nipple discharge, urinary frequency, urinary incontinence, urinary hesitancy, urinary urgency, vaginal discharge, vaginal dryness, vaginal odor or vaginal pruritus Skin Skin/Breast: Denies change in doyle (more content not included)... Normal [facility] 25(OH)D3 [facility] 25-hydroxyvitamin D3 [Mass/Vol] 49.1 ng/mL Normal 31.0-80.0 [facility] Comment on above: Order Comment: Speci men Type: BLOOD SPECIMENOrdering Facility: [facility] Address: [address] [place] [address] Performed By: #### 1 989-3 ####[facility] LABCLIA [id number] [place] [address] [place] CBC panel Auto (Bld)on 12-31 Erythrocyte distribution width (RBC) [Ratio] 13.6 % Normal 11.5-15.0 [facility] Comment on above: Order Comment: Speci men Type: BLOOD SPECIMENOrdering Facility: [facility] Address: [address] [place] [address] Performed By: #### 5 8410-2 ####[facility] LABIA [id number] [address] [place] Hematocrit (Bld) [Volume fraction] 39.3 % Normal 36.0-46.0 [facility] Comment on above: Order Comment: Speci men Type: BLOOD SPECIMENOrdering Facility: [facility] Address: [address] [place] [address] Performed By: #### 5 8410-2 ####[facility] LABCLIA [id number] [address], [facility] [place] Hemoglobin (Bld) [Mass/Vol] 12.9 g/dL Normal 11.5-15.5 [facility] Comment on above: Order Comment: Speci men Type: BLOOD SPECIMENOrdering Facility: [facility] Address: [address] [place] [address] Performed By: #### 5 8410-2 ####[facility] LABCLIA [id number] [address] [place] [address] [place] MCH (RBC) [Entitic mass] 29.3 pg Normal 26.0-34.0 [facility] Comment on above: Order Comment: Speci men Type: BLOOD SPECIMENOrdering Facility: [facility] Address: [address] [place] [address] Performed By: #### 5 8410-2 ####[facility] LABCLIA [id number] [place] [address] [place] MCHC (RBC) [Mass/Vol] 32.8 g/dL Normal 30.5-36.0 [facility] Comment on above: Order Comment: Speci men Type: BLOOD SPECIMENOrdering Facility: [facility] Address: [address] [place] [address] Performed By: #### 5 8410-2 ####[facility] LABIA [id number] [place] [address] [place] MCV (RBC) [Entitic vol] 89.1 fL Normal 80.0-100.0 [facility] Comment on above: Order Comment: Speci men Type: BLOOD SPECIMENOrdering Facility: [facility] Address: [address] [place] [address] Performed By: #### 5 8410-2 ####[facility] LABIA [id number] [place] [address] [place] Nucleated RBC (Bld) [#/Vol] 10*3/uL Normal <0.01 [facility] Comment on above: Order Comment: Speci men Type: BLOOD SPECIMENOrdering Facility: [facility] Address: [address] [place] [address] Performed By: #### 5 8410-2 ####[facility] LABIA [id number] [place] [address] [place] Platelet mean volume (Bld) [Entitic vol] 10.8 fL Normal 9.0-12.7 [facility] Comment on above: Order Comment: Speci men Type: BLOOD SPECIMENOrdering Facility: [facility] Address: [address] [place] [address] Performed By: #### 5 8410-2 ####[facility] LABCLIA [id number] [address] [address] [place] Platelets (Bld) [#/Vol] 219 10*3/uL Normal 150-400 [facility] Comment on above: Order Comment: Speci men Type: BLOOD SPECIMENOrdering Facility: [facility] Address: [address] [place] [address] Performed By: #### 5 8410-2 ####[facility] LABIA [id number] [place] [address] [place] RBC (Bld) [#/Vol] 4.41 10*6/uL Normal 3.90-5.20 [facility] Comment on above: Order Comment: Speci men Type: BLOOD SPECIMENOrdering Facility: [facility] Address: [address] [place] [address] Performed By: #### 5 8410-2 ####[facility] LABIA [id number] [place] [id number] [place] WBC (Bld) [#/Vol] 7.84 10*3/uL Normal 3.70-11.00 [facility] Comment on above: Order Comment: Speci men Type: BLOOD SPECIMENOrdering Facility: [facility] Address: [address] [place] [address] Performed By: #### 5 8410-2 ####[facility] LABIA [id number] [address] [address] [place] [facility] [place] Comprehensive metabolic 2000 panelon 12-31-2024 Albumin [Mass/Vol] 4.1 g/dL Normal 3.9-4.9 [facility] Comment on above: Order Comment: Speci men Type: BLOOD SPECIMENOrdering Facility: [facility] Address: [address] [place] [address] Performed By: #### 3 016-3, 27428-4, 71998-6 ####[facility] LABCLIA [id number] [address] [place] [address] [place] ALP [Catalytic activity/Vol] 62 U/L Normal 34-123 [facility] Comment on above: Order Comment: Speci men Type: BLOOD SPECIMENOrdering Facility: [facility] Address: [address] [place] [address] Performed By: #### 3 016-3, 96891-8, 67253-0 ####[facility] LABCLIA [id number] [facility] [address] [place] [address] [place] ALT [Catalytic activity/Vol] 16 U/L Normal 7-38 [facility] Comment on above: Order Comment: Speci men Type: BLOOD SPECIMENOrdering Facility: [facility] Address: [address] [place] [address] Performed By: #### 3 016-3, 86377-0, 91557-4 ####[facility] LABCLIA [id number] [place] [id number] [place] Anion gap [Moles/Vol] 9 mmol/L Normal 8-15 [facility] Comment on above: Order Comment: Speci men Type: BLOOD SPECIMENOrdering Facility: [facility] Address: [address] [place] [address] Performed By: #### 3 016-3, 92221-3, 74831-5 ####[facility] LABCLIA [id number] [place] [address] [place] AST [Catalytic activity/Vol] 19 U/L Normal 13-35 [facility] Comment on above: Order Comment: Speci men Type: BLOOD SPECIMENOrdering Facility: [facility] Address: [address] [place] [address] Performed By: #### 3 016-3, 66795-0, 24910-2 ####[facility] LABCLIA [id number] [address] [address] [place] Bilirubin [Mass/Vol] 0.3 mg/dL Normal 0.2-1.3 [facility] Comment on above: Order Comment: Speci men Type: BLOOD SPECIMENOrdering Facility: [facility] Address: [address] [place] [address] Performed By: #### 3 016-3, 15211-2, 50688-9 ####[facility] LABCLIA [id number] [place] [address] [place] Calcium [Mass/Vol] 9.5 mg/dL Normal 8.5-10.2 [facility] Comment on above: Order Comment: Speci men Type: BLOOD SPECIMENOrdering Facility: [facility] Address: [address] [place] [address] Performed By: #### 3 016-3, 65518-6, 21553-0 ####[facility] LABCLIA [id number] [place] [address] [place] Chloride [Moles/Vol] 106 mmol/L Normal 98-107 [facility] Comment on above: Order Comment: Speci men Type: BLOOD SPECIMENOrdering Facility: [facility] Address: [address] [place] [address] Performed By: #### 3 016-3, 25956-4, 13463-3 ####[facility] LABCLIA [id number] [place] [address] [place] CO2 [Moles/Vol] 21 mmol/L Low 22-30 [facility] Comment on above: Order Comment: Speci men Type: BLOOD SPECIMENOrdering Facility: [facility] Address: [address] [place] [address] Performed By: #### 3 016-3, 96364-6, 70221-6 ####[facility] LABCLIA [id number] [address] [address] [place] Creatinine [Mass/Vol] 0.61 mg/dL Normal 0.58-0.96 [facility] Comment on above: Order Comment: Shellie bell Type: BLOOD SPECIMENOrdering Facility: [facility] Address: [address] [place] [address] Performed By: #### 3 016-3, 21591-5, 07154-4 ####[facility] LABCLIA [id number] [place] [address] [place] Creatinine and Glomerular filtration rate.predicted panel (S/P/Bld) 118 mL/min/1.73m??? Normal >=60 [facility] Comment on above: Order Comment: Shellie bell Type: BLOOD SPECIMENOrdering Facility: [facility] Address: [address] [place] [address] Result Comment: Callie mated Glomerular Filtration Rate (eGFR) is calculated using the 2020 CKD-EPI creatinine equation. This equation utilizes serum creatinine, sex, and age as parameters. The creatinine assay has traceable calibration to isotope dilution-mass spectrometry. Refer to KDIGO guidelines for clinical interpretation. In patients with unstable renal function, e.g. those with acute kidney injury, the eGFR may not accurately reflect actual GFR. Performed By: #### 3 016-3, 50014-8, 59952-0 ####[facility] LABCLIA [id number] [place] [address] [place] Glucose [Mass/Vol] 85 mg/dL Normal 74-99 [facility] Comment on above: Order Comment: Shellie bell Type: BLOOD SPECIMENOrdering Facility: [facility] Address: [address] [place] [address] Result Comment: The [place] Diabetes Association (ADA) provides guidance for cutoff values for fasting glucose and random glucose. The ADA defines fasting as no caloric intake for at least 8 hours. Fasting plasma glucose results between 100 to 125 mg/dL indicate increased risk for diabetes (prediabetes). Fasting plasma glucose results greater than or equal to 126 mg/dL meet the criteria for diagnosis of diabetes. In the absence of unequivocal hyperglycemia, results should be confirmed by repeat testing. In a patient with classic symptoms of hyperglycemia or hyperglycemic crisis, random plasma glucose results greater than or equal to 200 mg/dL meet the criteria for diagnosis of diabetes. Reference: Standards of Medical Care in Diabetes 2016, [place] Diabetes Association. Diabetes Care. 2016.39(Suppl 1). Performed By: #### 3 016-3, 78210-1, 57270-5 ####[facility] LABCLIA [id number] [address] [address] [place] Potassium [Moles/Vol] 4.1 mmol/L Normal 3.7-5.1 [facility] Comment on above: Order Comment: Speci men Type: BLOOD SPECIMENOrdering Facility: [facility] Address: [address] [place] [address] Performed By: #### 3 016-3, 85908-1, 83419-6 ####[facility] LABCLIA [id number] [place] [id number] [place] Protein [Mass/Vol] 6.9 g/dL Normal 6.3-8.0 [facility] Comment on above: Order Comment: Speci men Type: BLOOD SPECIMENOrdering Facility: [facility] Address: [address] [place], [place] [address] Performed By: #### 3 016-3, 28078-1, ####[facility] LABIA [id number] [place] [id number] [place] Sodium [Moles/Vol] 136 mmol/L Normal 136-144 [facility] Comment on above: Order Comment: Speci men Type: BLOOD SPECIMENOrdering Facility: [facility] Address: [address] [place] [id number] Performed By: #### 3 016-3, 10288-2, 35489-8 ####[facility] LABIA [id number] [address] [address] [place] Urea nitrogen [Mass/Vol] 13 mg/dL Normal 7-21 [facility] Comment on above: Order Comment: Speci men Type: BLOOD SPECIMENOrdering Facility: [facility] Address: [address] [place] [address] Performed By: #### 3 016-3, 02710-9, 68993-2 ####[facility] LABIA [id number] [address] OF [facility] HbA1c (Bld)on 12-31-2024 Average glucose Estimated from glycated hemoglobin (Bld) [Mass/Vol] 88 mg/dL Normal [facility] Comment on above: Order Comment: Speci men Type: BLOOD SPECIMENOrdering Facility: [facility] Address: [address] [place] [address] Result Comment: eAG: (Estimated average glucose) is a calculated value from HgbA1c and is accounting representative of the average blood glucose level in the last 2-3 month period. Performed By: #### 5 5454-3 ####[facility] LABIA [id number] [address] HbA1c (Bld) [Mass fraction] 4.7 % Normal 4.3-5.6 [facility] Comment on above: Order Comment: Speci men Type: BLOOD SPECIMENOrdering Facility: [facility] Address: [address] [place] [address] Result Comment: [place] Diabetes Association guidelines indicate that patients with HgbA1c in the range 5.7-6.4% are at increased risk for development of diabetes, and intervention by lifestyle modification may be beneficial. HgbA1c greater or equal to 6.5% is considered diagnostic of diabetes. Performed By: #### 5 5454-3 ####[facility] LABIA [id number] [place] [id number] [place] Lipid 1996 panelon 5 Cholesterol [Mass/Vol] 204 mg/dL High <200 [facility] Comment on above: Order Comment: Shellie men Type: BLOOD SPECIMENOrdering Facility: [facility] Address: [address] [place] [address] Result Comment: <200 mg/dL, Desirable 200-239 mg/dL, Borderline high >239 mg/dL, High Performed By: #### 3 016-3, 70517-6, 46843-2 ####[facility] LABCLIA [id number] [address] [place] Cholesterol in HDL [Mass/Vol] 49 mg/dL Normal >39 [facility] Comment on above: Order Comment: Speci men Type: BLOOD SPECIMENOrdering Facility: [facility] Address: [address] [place] [address] Result Comment: 40-5 9 mg/dL, Acceptable >59 mg/dL, High: Negative risk factor for coronary heart disease <40 mg/dL, Low: Positive risk factor for coronary heart disease Performed By: #### 3 016-3, , ####[facility] LABCLIA [id number] [address] Cholesterol in LDL [Mass/Vol] 106 mg/dL High <100 [facility] [facility] Comment on above: Order Comment: [facility] Type: BLOOD SPECIMENOrdering Facility: [facility] Address: [address] [place] [address] Result Comment: <100 mg/dL, Optimal 100-129 mg/dL, Near optimal/above optimal 130-159 mg/dL, Borderline high 160-189 mg/dL, High >189 mg/dL, Very high Secondary prevention optimal LDL Cholesterol levels are recommended to be < 70 mg/dL Performed By: #### 3 016-3, 74256-0, ####[facility] LABCLIA [id number] [address] [facility] Cholesterol in LDL/Cholesterol in HDL [Mass ratio] 2.16 {ratio} Normal <2.54 [facility] Comment on above: Order Comment: Speci men Type: BLOOD SPECIMENOrdering Facility: [facility] Address: [address] [place] [address] Result Comment: Refe rence: 1. National Cholesterol Education Program ATP III Guideline At-A-Glance Quick Desk Reference: National Heart, Lung, and Blood [place]. National Institutes of Health. 2001: NIH Publication No. 01-3305. 2. An International Atherosclerosis Society position paper: global recommendations for the management of dyslipidemia: executive summary, Atherosclerosis. 2014: 232(2):410-413. Performed By: #### 3 016-3, 47095-7, 42336-1 ####[facility] LABCLIA [id number] [facility] [address] [address] [place] Cholesterol in VLDL [Mass/Vol] 49 mg/dL High <30 [facility] Comment on above: Order Comment: Speci men Type: BLOOD SPECIMENOrdering Facility: [facility] Address: [address] [place] [address] Performed By: #### 3 016-3, , ####[facility] LABCLIA [id number] [facility] [address] [address] [place] Cholesterol non HDL [Mass/Vol] 155 mg/dL High <130 [facility] Comment on above: Order Comment: Speci men Type: BLOOD SPECIMENOrdering Facility: [facility] Address: [address] [place] [address] Result Comment: <130 mg/dL, Optimal 130-159 mg/dL, Near optimal/above optimal 160-189 mg/dL, Borderline high 190-219 mg/dL, High >219 mg/dL, Very high Secondary prevention optimal non HDL Cholesterol levels are recommended to be <100 mg/dL Performed By: #### 3 016-3, , 66349-4 ####[facility] LABCLIA [id number] [facility] [address] [place] [address] [place] Cholesterol.total/Chol esterol in HDL [Mass ratio] 4.16 {ratio} Normal <5.10 [facility] Comment on above: Order Comment: Speci men Type: BLOOD SPECIMENOrdering Facility: [facility] Address: [address] [place] [id number] Performed By: #### 3 016-3, 62978-4, 00680-7 ####[facility] LABCLIA [id number] [place] [id number] [place] FASTING TIME 12 hrs Normal [facility] Comment on above: Order Comment: Shellie bell Type: BLOOD SPECIMENOrdering Facility: [facility] Address: [address] [place] [address] Performed By: #### 3 016-3, 67646-0, 58754-0 ####[facility] LABCLIA [id number] [place] [address] [place] Triglyceride [Mass/Vol] 245 mg/dL High <150 [facility] Comment on above: Order Comment: Shellie bell Type: BLOOD SPECIMENOrdering Facility: [facility] Address: [address] [place] [address] Result Comment: <150 mg/dL, Normal 150-199 mg/dL, Borderline high 200-499 mg/dL, High >499 mg/dL, Very high Performed By: #### 3 016-3, 82379-0, 58917-0 ####[facility] LABCLIA [id number] [place] [address] [place] [facility] 12-31-2024 TSH Qn 0.901 m[IU]/L Normal 0.270-4.200 [facility] Comment on above: Order Comment: Shellie bell Type: BLOOD SPECIMENOrdering Facility: [facility] Address: [address] [place] [address] Result Comment: If t he patient is , TSH reference range varies by gestational period: First Trimester (weeks 9-12): 0.180-2.990 mIU/L Second Trimester: 0.110-3.980 mIU/L Third Trimester: 0.480-4.710 mIU/L Chau Reynolds et al. A Practical Approach for the Verifications and Determination of Site- and Trimester-Specific Reference Intervals for Thyroid Function tests in . Thyroid, 2019:29:3:412-420. Andrews Mishra, et al. 2017 Guidelines of the [place] Thyroid Association for the Diagnosis and Management of Thyroid Disease during and the . Thyroid, 2017:27:3:315-389. Performed By: #### 3 016-3, 20552-7, 31398-4 ####[facility] LABCLIA [id number] [place] [address] [place] CNCOon 12-25-[address]CO [address] [facility] Assistant Product Manager Office Visit Reporton 12-21-2024 Assistant Product Manager Office Visit Report [facility] [address], [address] [place] [address] OFFICE VISIT Date of Service: 12/21/24 MR#: [id number] Acct: [id number] Name: LILLIAN DRAKE Rep #: [id number] : 1985 Provider: Dr. Maria hansen MD Age/Sex: 39/F [place] [facility] [place] Signed Intake Vital Signs 11/22/24 15:16 12/21/24 11:17 Height 5 ft 3 in 5 ft 3 in Weight: 169 lb 2 oz BMI 29.9 BP 95/49 L Intake Visit Reasons: fibroid/ovarian cyst possible surgical consult/ 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: No Is patient in pain?: Yes (lower back pain and cramping) Feel stressed/tense/nervous/ anxious/difficulty sleeping: not at all Allergies dicyclomine (From Bentyl) Allergy (Verified 12/21/24 11:28) migraine Penicillins Allergy (Verified 12/21/24 11:28) Rash Medications ???Medication ???Instructions ???Recorded ???Confirmed ???Type sertraline 100 mg tablet (Zoloft) 150 mg PO DAILY Check with primar y 06/18/22 12/21/24 History doctor lithium carbonate 300 mg 250 mg PO DAILY 11/22/24 12/21/24 History tablet,extended release Post menopausal: No Patient : No : No [facility] Medical History (Updated 12/21/24 @ 17:[address] Maria Regan MD) Dyspareunia depression History of premature rupture of membranes (PPROM) History of pre-term labor Polyhydramnios Asthma Anxiety Polyhydramnios affecting IUGR (intrauterine growth restriction) Anxiety Former smoker Hyperemesis Vaginal bleeding during Dichorionic diamniotic twin Rh negative status during Infertility Supervision of high risk , antepartum Marijuana use, episodic Concussion without loss of consciousness Cervical strain COVID-19 Depression Back pain Abnormal bruising Knee pain Chest pain Migraines Fatigue Shoulder pain Surgical History (Updated 12/21/24 @ 11:[address] 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 Patient has a history of pelvic pain and painful menses and PCOS. Patient states that she is struggled with painful menses since she first started having them at the age of 19 but they have definitely worsened over the years recently after having children. They have severely worsened over the last few months she is wanting ultimate treatment for them. She has not tolerated OCPs in the past due to weight gain. History 4 Elective abortions Hx Para 4 Spontaneous abortions 1 Hx # Term Pregnancies 2 Ectopic pregnancies Hx # Pregnancies 1 Multiple births # of living children 4 Past Pregnancies Del. Date Name GA/Weeks Outcome Route Bth Weight Gen Labor Lgth Anesthesia Del Locatn Provider FOB Unknown 2018 SAB, D C SM 08/14/09 Toby Nuñez 34 live - 4lbs 11oz Male 2 hours epidural Ak shirley General 02/14/16 Emily 38 live - full term 7lbs 13oz Female 26 hours epidural Jeffery Fiore 06/24/22 Amaury 33 live - Male spinal [facility] Scott on Jass Mike 06/24/22 Gabi 33 live - Male spinal [facility] Scott on Jass Mike Delivery Date: 08/14/09 Last Updated by: Alison Noel Pre-term labor. Delivery Date: 02/14/16 Last Updated by: Alison Vermaion No issues during or delivery. Delivery Date: 06/24/22 Last Updated by: Charis Desai see problem list for complications, and ptl pprom 33 ltcs bs . Delivery Date: 06/24/22 Last Updated by: Charis Desai See problem list for complications, and ptl pprom 33 ltcs bs SM. ROS Const Constitutional: Denies fatigue, fever(s), headache(s), increased appetite, poor appetite, weight gain or weight loss Cardio Card: Denies chest pain Resp Resp: Denies cough or dyspnea GI GI: Reports as per HPI; Denies abdominal pain, constipation, nausea or vomiting : Reports as per HPI; Denies difficulty voiding, dysuria, nipple discharge, urinary frequency, urinary incontinence, urinary (more content not included)... Normal [facility] Abdomen/Pelvis W IV Cont ONL Yon 11-22-2024 Abdomen/Pelvis W IV Cont ONLY [facility] Services [address] [place] [address] Abdomen/Pelvis W IV Cont ONLY MR#: [id number] Acct: [id number] Name: LILLIAN DRAKE Rep #: [id number] : 1985 F 39 From: Burton Cabrera MD PCP: Dr. Maria Regan MD Status: [facility] ER Study: Abdomen/Pelvis W IV Cont ONLY Date of Exam: Exam# [id number] Ordering Dr: Lupillo Asif MD PROCEDURE: ABDOMEN/PELVIS W IV CONT ONLY REASON FOR EXAM: Right lower quadrant abdominal pain TECHNIQUE: Abdomen and pelvis CT with intravenous contrast. COMPARISON: 08/19/2019 FINDINGS: Lung bases: Clear Liver: Diffuse fatty infiltration. Gallbladder: Unremarkable. Spleen: Normal size. Pancreas: Normal size without evidence of mass surrounding inflammation or ductal dilation. Adrenals: Unremarkable. Kidneys: Normal renal sizes. No hydronephrosis. Bladder: Unremarkable. Reproductive Organs: Heterogeneous uterus. Prominent bilateral ovaries nqnup-emuigxu-bblf-left with multiple cystic foci. The right ovary measures 5.1 x 2.0 cm and the left measures 3.2 by 2.0 cm. Bowel: No bowel obstruction. Appendix: Normal. Lymph nodes: No suspicious lymph node enlargement. Vasculature: Major vascular structures are unremarkable. Peritoneum / Retroperitoneum: No ascites. No free air. Bones: Unremarkable. CT/Abdomen/Pelvis W IV Cont ONLY IMPRESSION: 1. Heterogeneity in the uterus which may be due to fibroids. Bilateral prominent ovaries, muhjb-swlyyhf-zsll-left . Consider pelvic ultrasound for further evaluation. 2. Hepatic steatosis. One or more dose reduction techniques were used (e.g., Automated exposure control, adjustment of the mA and/or kV according to patient size, use of iterative reconstruction technique). Reading Location: [facility] CC: Dr. Lupillo Asif MD; Dr. Maria Regan MD Electrical And Electronic Assembler: Signed Normal [facility] Absolute lymphocyte countOrd ered By: Lupillo Asif on 11-22-2024 Lymphocytes Auto (Unsp spec) [#/Vol] 3.24 10*3/uL 0.83-4.51 [facility] Absolute neutrophil countOrd ered By: Lupillo Asif on 11-22-2024 Neutrophils (Bld) [#/Vol] 5.2 10*3/uL 2.0-7.7 [facility] Albumin to globulin ratioOrd ered By: Lupillo Asif on 11-22-2024 Albumin/Globulin [Mass ratio] 0.9 {ratio} 0.9-2.4 [facility] Automated lymphocyte count a s percentage of total leukocytesOrdered By: Lupillo Asif on 11-22-2024 Lymphocytes/100 WBC Auto (Unsp spec) 34.6 % 19-41 [facility] Basophil percentageOrdered B y: Lupillo Asif on 11-22-2024 Basophils/100 WBC (Bld) 0.6 % 0-1 [facility] Bilirubin Test strip Ql (U)O rdered By: Lupillo Asif on 11-22-2024 Bilirubin Ql (U) Negative Negative [facility] Bilirubin, totalOrdered By: Lupillo Asif on 11-22-2024 Bilirubin [Mass/Vol] 0.30 mg/dL 0.20-1.00 [facility] Comment on above: For patients on eltr ombopag therapy, use of Dimension Brady TBIL is not recommended. Blood urea nitrogen (BUN)/cr eatinine ratioOrdered By: Lupillo Asif on 11-22-2024 Urea nitrogen/Creatinine [Mass ratio] 22.5 mg/mg High 07-22 [facility] CBC W/Diff, Automatedon 11-04 Absolute Lymph 3.24 X10 3/uL Normal 0.83-4.51 [facility] Comment on above: Performed By: #### L 700.6800, L500.4050, L100.0100 #### [facility] [address] [place], [address] Absolute Neut 5.2 X10 3/uL Normal 2.0-7.7 [facility] Comment on above: Performed By: #### L 700.6800, L500.4050, L100.0100 #### [facility] [address] [place], [address] Basophils/100 WBC (Bld) 0.6 % Normal 0-1 [facility] Comment on above: Performed By: #### L 700.6800, L500.4050, L100.0100 #### [facility] [address] [place], [address] Eosinophils/100 WBC (Bld) 3.2 % Normal 0-5 [facility] Comment on above: Performed By: #### L 700.6800, L500.4050, L100.0100 #### [facility] [address] [place], [address] Erythrocyte distribution width (RBC) [Ratio] 13.7 % Normal 11.6-14.6 [facility] Comment on above: Performed By: #### L 700.6800, L500.4050, L100.0100 #### [facility] [address] [place], [address] Hematocrit (Bld) [Volume fraction] 41.2 % Normal 37-47 [facility] Comment on above: Performed By: #### L 700.6800, L500.4050, L100.0100 #### [facility] [address] [place], [address] Hemoglobin (Bld) [Mass/Vol] 13.7 g/dL Normal 12.0-15.0 [facility] Comment on above: Performed By: #### L 700.6800, L500.4050, L100.0100 #### [facility] [address] [place], [address] IG% 0.300 Normal 0.0-0.9 [facility] Comment on above: Result Comment: IG% - Immature Granulocytes (promyelocytes, myelocytes and metamyelocytes) > 1% indicates that a LEFT SHIFT is Present. Performed By: #### L 700.6800, L500.4050, L100.0100 #### [facility] [address] [place], [address] Lymphocytes/100 WBC (Bld) 34.6 % Normal 19-41 [facility] Comment on above: Performed By: #### L 700.6800, L500.4050, L100.0100 #### [facility] [address] [place], [address] MCH (RBC) [Entitic mass] 29.6 pg Normal 27.0-32.0 [facility] Comment on above: Performed By: #### L 700.6800, L500.4050, L100.0100 #### [facility] [address] [place], [address] MCHC (RBC) [Mass/Vol] 33.3 g/dL Normal 32-36 [facility] Comment on above: Performed By: #### L 700.6800, L500.4050, L100.0100 #### [facility] [address] [place], [address] MCV (RBC) [Entitic vol] 89.0 fL Normal 81-99 [facility] Comment on above: Performed By: #### L 700.6800, L500.4050, L100.0100 #### [facility] [address] [place], [address] Monocytes/100 WBC (Bld) 5.2 % Normal 0-10 [facility] Comment on above: Performed By: #### L 700.6800, L500.4050, L100.0100 #### [facility] [address] [place], [address] Neutrophils/100 WBC (Bld) 56.1 % Normal 47-70 [facility] Comment on above: Performed By: #### L 700.6800, L500.4050, L100.0100 #### [facility] [address] [place], [address] Nucleated RBC (Bld) [#/Vol] 0 10*3/uL Normal 0-5 [facility] Comment on above: Performed By: #### L 700.6800, L500.4050, L100.0100 #### [facility] [address] [place], [address] Platelet mean volume (Bld) [Entitic vol] 11.3 fL Normal 6.2-12.0 [facility] Comment on above: Performed By: #### L 700.6800, L500.4050, L100.0100 #### [facility] [address] [place], [address] Platelets (Bld) [#/Vol] 307 10*3/uL Normal 150-450 [facility] Comment on above: Performed By: #### L 700.6800, L500.4050, L100.0100 #### [facility] [address] [place], [address] RBC (Bld) [#/Vol] 4.63 10*6/uL Normal 4.2-5.[address] [facility] Comment on above: Performed By: #### L 700.6800, L500.4050, L100.0100 #### [facility] [address] [place], [address] RDW SD 44.4 fl High 35.1-43.9 [facility] Comment on above: Performed By: #### L 700.6800, L500.4050, L100.0100 #### [facility] [address] [place], [address] WBC (Bld) [#/Vol] 9.4 10*3/uL Normal 4.4-11.0 [facility] Comment on above: Performed By: #### L 700.6800, L500.4050, L100.0100 #### [facility] [address] [place], [address] Carbon dioxide measurementOr dered By: Lupillo Asif on 11-22-2024 CO2 [Moles/Vol] 22.0 mmol/L 21.0-32.0 [facility] Chloride measurementOrdered By: Lupillo Asif on 11-22-2024 Chloride [Moles/Vol] 108 mmol/L High 98-107 [facility] Comprehensive Metabolic Prof ilon 11-22-2024 Albumin [Mass/Vol] 3.6 g/dL Normal 3.2-5.0 [facility] Comment on above: Performed By: #### L 700.6800, L500.4050, L100.0100 #### [facility] [address] [place], [address] Albumin/Globulin [Mass ratio] 0.9 {ratio} Normal 0.9-2.4 [facility] Comment on above: Performed By: #### L 700.6800, L500.4050, L100.0100 #### [facility] [address] [place], [address] ALK P 60 U/L Normal 45-117 [facility] Comment on above: Performed By: #### L 700.6800, L500.4050, L100.0100 #### [facility] [address] [place], [address] ALT [Catalytic activity/Vol] 20 U/L Normal 13-56 [facility] Comment on above: Performed By: #### L 700.6800, L500.4050, L100.0100 #### [facility] [address] [place], [address] AST [Catalytic activity/Vol] 42 U/L High 15-37 [facility] Comment on above: Result Comment: Mode rate Hemolysis, Result may be falsely increased. Performed By: #### L 700.6800, L500.4050, L100.0100 #### [facility] [address] [place], [address] Bilirubin [Mass/Vol] 0.30 mg/dL Normal 0.20-1.00 [facility] Comment on above: Result Comment: For patients on eltrombopag therapy, use of Dimension Brady TBIL is not recommended. Performed By: #### L 700.6800, L500.4050, L100.0100 #### [facility] [address] [place], [address] BUN/CRE 22.5 RATIO High 10-20 [facility] Comment on above: Performed By: #### L 700.6800, L500.4050, L100.0100 #### [facility] [address] [place], [address] CA,Total 9.1 mg/dL Normal 8.5-10.1 [facility] Comment on above: Performed By: #### L 700.6800, L500.4050, L100.0100 #### [facility] [address] [place], [address] Chloride [Moles/Vol] 108 mmol/L High 98-107 [facility] Comment on above: Performed By: #### L 700.6800, L500.4050, L100.0100 #### [facility] [address] [place], [address] CO2 [Moles/Vol] 22.0 mmol/L Normal 21.0-32.0 [facility] Comment on above: Performed By: #### L 700.6800, L500.4050, L100.0100 #### [facility] [address] [place], [address] Creatinine [Mass/Vol] 0.67 mg/dL Normal 0.55-1.02 [facility] Comment on above: Result Comment: The validity of the calculated GFR GFRAA in patients over 70 years has not been determined. Clinical correlation is essential. Performed By: #### L 700.6800, L500.4050, L100.0100 #### [facility] [address] [place], [address] ECRCL 113.04 ml/min Normal [facility] Comment on above: Performed By: #### L 700.6800, L500.4050, L100.0100 #### [facility] [address] [place], [address] EST GFR - AA 128 mL/min Normal >60 [facility] Comment on above: Result Comment: Afri can Bah[place]ian GFR Calc Performed By: #### L 700.6800, L500.4050, L100.0100 #### [facility] [address] [place], [address] GAP 7 Normal 5-15 [facility] Comment on above: Performed By: #### L 700.6800, L500.4050, L100.0100 #### [facility] [address] [place], [address] GFR/1.73 sq M.predicted among non-blacks MDRD (S/P/Bld) [Vol rate/Area] 106 mL/min/{1.73_m2} Normal >60 [facility] Comment on above: Result Comment: Non- GFR Calc Performed By: #### L 700.6800, L500.4050, L100.0100 #### [facility] [address] [place], [address] Globulin (S) [Mass/Vol] 4.2 g/dL Normal 2.2-4.2 [facility] Comment on above: Performed By: #### L 700.6800, L500.4050, L100.0100 #### [facility] [address] [place], [address] Glucose [Mass/Vol] 82 mg/dL Normal 74-106 [facility] Comment on above: Performed By: #### L 700.6800, L500.4050, L100.0100 #### [facility] [address] [place], [address] Potassium [Moles/Vol] 4.5 mmol/L Normal 3.5-5.1 [facility] Comment on above: Result Comment: Mode rate Hemolysis, Result may be falsely increased. Performed By: #### L 700.6800, L500.4050, L100.0100 #### [facility] [address] [place], [address] Sodium [Moles/Vol] 136 mmol/L Normal 136-145 [facility] Comment on above: Performed By: #### L 700.6800, L500.4050, L100.0100 #### [facility] [address] [place], [address] T PROT 7.8 g/dL Normal 6.4-8.2 [facility] Comment on above: Performed By: #### L 700.6800, L500.4050, L100.0100 #### [facility] [address] [place], [address] Urea nitrogen [Mass/Vol] 15 mg/dL Normal 7-18 [facility] Comment on above: Performed By: #### L 700.6800, L500.4050, L100.0100 #### [facility] [address] [place], [address] Emergency Department Summary on 11-22-2024 Emergency Department Summary [facility] Medical Records Department [address] [place] [address] Emergency Department Summary 11/22/24 MR#: [id number] Acct: [id number] Name: LILLIAN DRAKE Rep #: [id number] : 1985 39 From: Lupillo Asif MD PCP: Dr. Maria Regan MD Status:REG ER Location: ED HPI HPI - Female History of Present Illness Chief Complaint: Female C/O Narrative Narrative: 39-year-old female presents with right lower quadrant abdominal pain and pelvic pain that she has had since Tuesday of last week. This was approximately 5 days ago. She relates history that she had right lower quadrant abdominal pain similar to ovarian cyst rupture which she has had in the past. That resolved. A day or 2 ago, she attempted to have intercourse with her significant other, but she states that immediately after penetration, she had sharp pain in her pelvis. The pain is now radiating up past her abdomen. She is currently constipated. She denies any fevers or chills, no dysuria. She also experienced vaginal bleeding with this that has resolved. She may have a pink tinge when she wipes currently but she denies any gross hematuria, no other bleeding diathesis. She states she is never bled after intercourse. Since then, she has been having lower pelvic pain right greater than left and radiating upward as well. She denies any exacerbating or alleviating factors. She has had abnormal menses in the past and completed her last menses 2 weeks ago. She states that there are times when she would not have menses for few months and then have a regular menses and then not have it again for a few more months. [facility] Medical History depression History of premature rupture of membranes (PPROM) History of pre-term labor Polyhydramnios Asthma Anxiety Polyhydramnios affecting IUGR (intrauterine growth restriction) Anxiety Former smoker Hyperemesis Vaginal bleeding during Dichorionic diamniotic twin Rh negative status during Infertility Supervision of high risk , antepartum Marijuana use, episodic Concussion without loss of consciousness Cervical strain COVID-19 Depression Back pain Abnormal bruising Knee pain Chest pain Migraines Fatigue Shoulder pain Home Medications ???Medication ???Instructions ???Recorded ???Last Taken ???Type sertraline 100 mg tablet (Zoloft) 150 mg PO DAILY Check with primar y 06/18/22 06/24/22 10:00 History doctor lithium carbonate 300 mg 250 mg PO DAILY 11/22/24 Unknown H istory tablet,extended release Allergy/AdvReac Type Severity Reaction Status Date / Time dicyclomine (From Bentyl) Allergy migraine Verified 11/22/24 15:19 Penicillins Allergy Rash Verified 11/22/24 15:19 Family History no significant family his Surgical History H/O dilation and curettage Social History adopted: No household members: significant other and children number of children: 2 current occupational status: employed 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 Cardiovascular: No chest pain. No palpitations. No pedal edema. Respiratory: No cough, no shortness of breath. Abdominal: Bilateral lower quadrant abdominal pain. No nausea. No vomiting. Genitourinary: No dysuria. No hematuria. Vaginal bleeding, resolved. Positive pelvic pain right greater than left. Musculoskeletal: No myalgias. No arthralgias. Neurologic: No headaches. No dizziness. No lightheadedness. Skin: No rash. No change in color. Psychiatric: No depression. No anxiety. EXAM Physical Exam Narrative Exam Narrative: Afebrile. Vital signs noted. Nontoxic-appearing. Cardiovascular examination reveals a regular rate and rhythm. Lungs are clear to auscultation bilaterally. The abdomen is soft with tenderness in the bilateral lower quadrants right greater than left. No guarding or rebound. Positive bowel sounds. Neurological examination nonfocal and nonlateralizing. Patient declines pelvic examination. Const Vital Signs: 11/22/24 15:16 11/22/24 17:15 11/22/24 19:00 Temperature 97.9 F Temperature Source Oral Pulse Rate 64 61 Respiratory Rate 16 Blood Pressure 108/55 L 116/79 103/37 L Blood Pressure Mean 72 91 59 Pulse Ox 100 97 Oxygen Delivery Me (more content not included)... Normal [facility] Eosinophil percentageOrdered By: Lupillo Asif on 11-22-2024 Eosinophils/100 WBC (Bld) 3.2 % 0-5 [facility] Erythrocyte distribution wid th ratioOrdered By: Lupillo Asif on 11-22-2024 Erythrocyte distribution width (RBC) [Ratio] 13.7 % 11.6-14.6 [facility] Erythrocyte distribution wid th standard deviationOrdered By: Lupillo Asif on 11-22-2024 Erythrocyte distribution width (RBC) [Ratio] 44.4 fl High 35.1-43.9 [facility] Glomerular filtration rate ( GFR) estimationOrdered By: Lupillo Asif on 11-22-2024 GFR/1.73 sq M.predicted among non-blacks MDRD (S/P/Bld) [Vol rate/Area] 106 mL/min/{1.73_m2} >60 [facility] Comment on above: Non- GFR Calc Glucose measurementOrdered B y: Lupillo Asif on 11-22-2024 Glucose [Mass/Vol] 82 mg/dL 74-106 [facility] Hematocrit Auto (Bld) [Volum e fraction]Ordered By: Lupillo Asif on 11-22-2024 Hematocrit (Bld) [Volume fraction] 41.2 % 37-47 [facility] Hemoglobin measurementOrdere d By: Lupillo Asif on 11-22-2024 Hemoglobin (Bld) [Mass/Vol] 13.7 g/dL 12.0-15.0 [facility] Immature granulocytes/100 WB C Auto (Bld)Ordered By: Lupillo Asif on 11-22-2024 Immature granulocytes/100 WBC (Bld) 0.300 % 0.0-0.9 [facility] Comment on above: IG% - Immature Granu locytes (promyelocytes, myelocytes and metamyelocytes) > 1% indicates that a LEFT SHIFT is Present. Ketones Test strip Ql (U)Ord ered By: Lupillo Asif on 11-22-2024 Ketones Ql (U) Negative Negative [facility] - Chemistry and C hemistry - challengeOrdered By: Lupillo Asif on 11-22-2024 AST [Catalytic activity/Vol] 42 U/L High 15-37 [facility] Comment on above: Moderate Hemolysis, Result may be falsely increased. MCV (mean corpuscular volume ) determinationOrdered By: Lupillo Asif on 11-22-2024 MCV (RBC) [Entitic vol] 89.0 fL 81-99 [facility] Mean corpuscular hemoglobin (MCH) determinationOrdered By: Lupillo Asif on 11-22-2024 MCH (RBC) [Entitic mass] 29.6 pg 27.0-32.0 [facility] Mean corpuscular hemoglobin concentration (MCHC) determinationOrdered By: Lupillo Asif on 11-22-2024 MCHC (RBC) [Mass/Vol] 33.3 g/dL 32-36 [facility] Mean platelet volume determi nationOrdered By: Lupillo Asif on 11-22-2024 Platelet mean volume (Bld) [Entitic vol] 11.3 fL 6.2-12.0 [facility] Microscopic analysis of urin e for red blood cells (RBC)Ordered By: Lupillo Asif on 11-22-2024 Microscopic analysis of urine for red blood cells (RBC) 0 SEEN /hpf 0-5 [facility] Monocyte percentageOrdered B y: Lupillo Asif on 11-22-2024 Monocytes/100 WBC (Bld) 5.2 % 0-10 [facility] Mucus LM Ql (Urine sed)Order ed By: Lupillo Asif on 11-22-2024 Mucus Ql (Urine sed) 1+ /hpf [facility] Neutrophil percentageOrdered By: Lupillo Asif on 11-22-2024 Neutrophils/100 WBC (Bld) 56.1 % 47-70 [facility] Nitrite Test strip Ql (U)Ord ered By: Lupillo Asif on 11-22-2024 Nitrite Ql (U) Negative Negative [facility] Nucleated red blood cell per centageOrdered By: Lupillo Asif on 11-22-2024 Nucleated RBC/100 WBC (Bld) [Ratio] 0 % 0-5 [facility] Platelet countOrdered By: Keenan Asif on 11-22-2024 Platelets (Bld) [#/Vol] 307 10*3/uL 150-450 [facility] Potassium measurementOrdered By: Lupillo Asif on 11-22-2024 Potassium [Moles/Vol] 4.5 mmol/L 3.5-5.1 [facility] Comment on above: Moderate Hemolysis, Result may be falsely increased. ,Serum,hCG Quali.on 11-22-2024 HCG, SERUM QUAL Negative Normal [facility] Comment on above: Performed By: #### L 700.6800, L500.4050, L100.0100 #### [facility] [address] [place], [place], [id number] Protein Test strip Ql (U)Ord ered By: Lupillo Asif on 11-22-2024 Protein Ql (U) 15 mg/dl High Negative [facility] RBC Auto (Bld) [#/Vol]Ordere d By: Lupillo Asif on 11-22-2024 RBC (Bld) [#/Vol] 4.63 10*6/uL 4.2-5.[address] [facility] Serum anion gap measurementO rdered By: Lupillo Asif on 11-22-2024 Anion gap [Moles/Vol] 7 mmol/L 5-15 [facility] Serum beta-hCG test, qualita tiveOrdered By: Lupillo Asif on 11-22-2024 Beta HCG ( test) Ql Negative [facility] Serum globulin measurementOr dered By: Lupillo Asif on 11-22-2024 Globulin (S) [Mass/Vol] 4.2 g/dL 2.2-4.2 [facility] Serum or plasma alanine clay otransferase (ALT) measurementOrdered By: Lupillo Asif on 11-22-2024 ALT [Catalytic activity/Vol] 20 U/L 13-56 [facility] Serum or plasma albumin jazmin urement (mass/volume)Ordered By: Lupillo Asif on 11-22-2024 Albumin [Mass/Vol] 3.6 g/dL 3.2-5.0 [facility] Serum or plasma alkaline dedra sphatase measurementOrdered By: Lupillo Asif on 11-22-2024 ALP [Catalytic activity/Vol] 60 U/L 45-117 [facility] Serum or plasma calcium jazmin urement (mass/volume)Ordered By: Lupillo Asif on 11-22-2024 Calcium [Mass/Vol] 9.1 mg/dL 8.5-10.1 [facility] Serum or plasma creatinine m easurement (mass/volume)Ordered By: Lupillo Asif on 11-22-2024 Creatinine [Mass/Vol] 0.67 mg/dL 0.55-1.02 [facility] Comment on above: The validity of the calculated GFR & GFRAA in patients over 70 years has not been determined. Clinical correlation is essential. Serum or plasma urea nitroge n measurement (mass/volume)Ordered By: Lupillo Asif on 11-22-2024 Urea nitrogen [Mass/Vol] 15 mg/dL 7-18 [facility] Sodium levelOrdered By: Lupillo Asif on 11-22-2024 Sodium [Moles/Vol] 136 mmol/L 136-145 [facility] Squamous epithelial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 seatbelt use: always do you feel safe at home: Yes additional social history: Balj[employer] [facility] ED Constitutional Constitutional ED: Denies chills, fever(s) or subjective Eyes Eyes: Denies blurry vision or change in vision ENT ENT ED: Denies ear pain, rhinorrhea or sore throat Cardiovascular Cardiovascular: Denies chest pain, palpitations or racing heartbeat Respiratory/Chest Respiratory/Chest: Denies cough, dyspnea or dyspnea on exertion Gastrointestinal Gastrointestinal: Reports abdominal pain and nausea; Denies constipation or diarrhea Genitourinary Genitourinary ED: Denies dysuria, hematuria or urinary frequency Musculoskeletal Musculoskeletal: Denies arthralgias, back pain or myalgias Integumentary Denies rash Neurologic Neurologic: Denies headache(s), paresthesias or weakness Endocrine Endocrinology: Denies cold intolerance or heat intolerance Hematologic/Lymphatic Hematologic/Lymphatic: Denies systems reviewed and no addt'l complaints, except as documented EXAM Physical Exam Const Vital Signs: 03/27/24 14:48 03/27/24 16:42 03/27/24 17:56 Temperature 96.8 F L Temperature Source Temporal Pulse Rate 71 81 74 Respiratory Rate 18 18 18 Blood Pressure 112/53 L 118/80 120/81 H Blood Pressure Mean 72 92 94 Pulse Ox 99 99 98 Oxygen Delivery Method Room Air Room Air Room Air 03/27/24 20:00 Temperature Temperature Source (more content not included)... Normal [facility] ,Serum,hCG Quali.on 03-27-2024 HCG, SERUM QUAL Negative Normal [facility] Comment on above: Performed By: #### M 100.3200, M100.1999, L7400.0280, L7000.1800 #### [facility] [address] [place], [address] HCG, SERUM QUAL Negative [facility] Comment on above: Performed By: #### M 100.3200, M100.1999, L7400.0280, L7000.1800 #### [facility] [address] [place], [address] Transvaginal Non-on 03-27-2024 Transvaginal Non- [facility] Services [address] [place] [address] Transvaginal Non- MR#: [id number] Acct: [id number] Name: LILLIAN DRAKE Rep #: [id number] : 1985 F 38 From: Heri Godinez MD PCP: JENNIFER WERNER Status: REG ER Study: Transvaginal Non- Date of Exam: Exam# [id number] Ordering Dr: [place] [id number] STUDY: ULTRASOUND TRANSVAGINAL CLINICAL: Female, 38 years old. Right adnexal tenderness, fullness evaluate for to -- With blood flow to assess for torsion TECHNIQUE: Transvaginal COMPARISON: None. FINDINGS: Normal uterine size measuring 12 x 6.7 x 5 cm in maximal craniocaudal dimension. There are no myometrial masses. Normal endometrial thickness measuring 7 mm. There are no endometrial masses, and there is no fluid in the endometrial cavity. Tiny nabothian cyst in the lower uterine segment Normal right ovary, measuring 4.5 x 2.8 x 1.7 cm. There are multiple follicles without a dominant cyst. Normal arterial flow is observed at Normal left ovary, measuring 3.4 x 2.7 x 2.4 cm. There are multiple follicles noted Small cyst measuring 1.37 x 1.1 cm Normal arterial flow is observed. There is no free fluid in the pelvis. US/Transvaginal Non- IMPRESSION: Small left ovarian cyst approximately 1.4 x 1.2 x 1.2 cm. No evidence for ovarian torsion. Multiple bilateral ovarian follicles which may be consistent with clinical history of polycystic ovary disease Electronically Signed: Heri Godinez MD at 19:23 EDT Reading Location ID and State: [address] [place] [address] Tel , Service support , CC: Dr. Yvon Tracy MD; JENNIFER WERNER [employer]: Signed Normal [facility] Urinalysis, Completeon 03-27 BACTERIA Normal None Seen [facility] Comment on above: Order Comment: CLEAN CATCH Result Comment: DUPL ICATE Performed By: #### M 100.3200, , L7400.0280, L7000.1800 #### [facility] [address] [place], [address] BILIRUBIN URINE Normal Negative [facility] Comment on above: Order Comment: CLEAN CATCH Result Comment: DUPL ICATE Performed By: #### M 100.3200, M1, L7400.0280, L7000.1800 #### [facility] [address] [place], [address] Clarity (U) Normal Clear [facility] Comment on above: Order Comment: CLEAN CATCH Result Comment: DUPL ICATE Performed By: #### M 100.3200, M100.2000, L7400.0280, L7000.1800 #### [facility] [address] [place], [address] Color (U) Normal Yellow [facility] Comment on above: Order Comment: CLEAN CATCH Result Comment: DUPL ICATE Performed By: #### M 100.3200, M100.2000, L7400.0280, L7000.1800 #### [facility] [address] [place], [address] EPI,SQUAMOUS Normal 5-10 [facility] Comment on above: Order Comment: CLEAN CATCH Result Comment: DUPL ICATE Performed By: #### M 100.3200, M100.1999, L7400.0280, L7000.1800 #### [facility] [address] [place], [address] GLUCOSE, UR Normal Normal [facility] Comment on above: Order Comment: CLEAN CATCH Result Comment: DUPL ICATE Performed By: #### M 100.3200, M100.1999, L7400.0280, L7000.1800 #### [facility] [address] [place], [address] KETONE UR Normal Negative [facility] Comment on above: Order Comment: CLEAN CATCH Result Comment: DUPL ICATE Performed By: #### M 100.3200, M100.1999, L7400.0280, L7000.1800 #### [facility] [address] [place], [address] LEUK ESTERASE Normal Negative [facility] Comment on above: Order Comment: CLEAN CATCH Result Comment: DUPL ICATE Performed By: #### M 100.3200, M100.2000, L7400.0280, L7000.1800 #### [facility] [address] [place], [address] Mucus Ql (Urine sed) Normal [facility] Comment on above: Order Comment: CLEAN CATCH Result Comment: DUPL ICATE Performed By: #### M 100.3200, M100.1999, L7400.0280, L7000.1800 #### [facility] [address] [place], [address] Nitrite Ql (U) Normal Negative [facility] Comment on above: Order Comment: CLEAN CATCH Result Comment: DUPL ICATE Performed By: #### M 100.3200, M100.1999, L7400.0280, L7000.1800 #### [facility] [address] [place], [address] OCCULT BLOOD-UR Normal Negative [facility] Comment on above: Order Comment: CLEAN CATCH Result Comment: DUPL ICATE Performed By: #### M 100.3200, .1999, L7400.0280, L7000.1800 #### [facility] [address] [place], [address] pH UR Normal 5.0 - 8.0 [facility] Comment on above: Order Comment: CLEAN CATCH Result Comment: DUPL ICATE Performed By: #### M 100.3200, M100.1999, L7400.0280, L7000.1800 #### [facility] [address] [place], [address] PROT DIPSTX Normal Negative [facility] Comment on above: Order Comment: CLEAN CATCH Result Comment: DUPL ICATE Performed By: #### M 100.3200, M100.1999, L7400.0280, L7000.1800 #### [facility] [address] [place], [address] RBC Normal 0-5 [facility] Comment on above: Order Comment: CLEAN CATCH Result Comment: DUPL ICATE Performed By: #### M 100.3200, M100.1999, L7400.0280, L7000.1800 #### [facility] [address] [place], [address] SP.GR. DIPSTX Normal 1.002-1.030 [facility] Comment on above: Order Comment: CLEAN CATCH Result Comment: DUPL ICATE Performed By: #### M 100.3200, M100.1999, L7400.0280, L7000.1800 #### [facility] [address] [place], [address] UR Preservative Normal [facility] Comment on above: Order Comment: CLEAN CATCH Result Comment: DUPL ICATE Performed By: #### M 100.3200, M100.1999, L7400.0280, L7000.1800 #### [facility] [address] [place], [address] UROBILI Normal Normal [facility] Comment on above: Order Comment: CLEAN CATCH Result Comment: DUPL ICATE Performed By: #### M 100.3200, M100.1999, L7400.0280, L7000.1800 #### [facility] [address] [place], [address] WBC Normal 0-5 [facility] Comment on above: Order Comment: CLEAN CATCH Result Comment: DUPL ICATE Performed By: #### M 100.3200, M100.1999, L7400.0280, L7000.1800 #### [facility] [address] [place], [address] BACTERIA 2+ /hpf Normal None Seen [facility] Comment on above: Order Comment: COLLE CTOR TO SPECIFY Performed By: #### M 100.3200, M100.1999, L7400.0280, L7000.1800 #### [facility] [address] [place], [address] EPI,SQUAMOUS 0-5 SEEN Normal 5-10 [facility] Comment on above: Order Comment: COLLE CTOR TO SPECIFY Performed By: #### M 100.3200, M100.1999, L7400.0280, L7000.1800 #### [facility] [address] [place], [address] Mucus Ql (Urine sed) 0 SEEN Normal [facility] Comment on above: Order Comment: COLLE CTOR TO SPECIFY Performed By: #### M 100.3200, M100.1999, L7400.0280, L7000.1800 #### [facility] [address] [place], [address] RBC 0 SEEN Normal 0-5 [facility] Comment on above: Order Comment: COLLE CTOR TO SPECIFY Performed By: #### M 100.3200, M100.1999, L7400.0280, L7000.1800 #### [facility] [address] [place], [address] WBC 0 SEEN Normal 0-5 [facility] Comment on above: Order Comment: EDE CTOR TO SPECIFY Performed By: #### M 100.3200, M100.1999, L7400.0280, L7000.1800 #### [facility] [address] [place], [address] Basophil percentageOrdered B y: Eliseo Ricardo on 01-23-2024 Chloride [Moles/Vol] 109 mmol/L 98-107 [facility] Glucose [Mass/Vol] 87 mg/dL 74-106 [facility] Potassium [Moles/Vol] 3.8 mmol/L 3.5-5.1 [facility] Sodium [Moles/Vol] 136 mmol/L 136-145 [facility] - Chemistry and C hemistry - challengeOrdered By: Eliseo Ricardo on 01-23-2024 CO2 [Moles/Vol] 19.0 mmol/L 21.0-32.0 [facility] Urea nitrogen/Creatinine [Mass ratio] 21.2 mg/mg 10- [facility] No Panel InformationOrdered By: Eliseo Ricardo on 01-23-2024 Estimated Creatinine Clearance Calc 121.71 ml/min [facility] Estimated GFR (MDRD) Amer 142 mL/min >60 [facility] Comment on above: GFR Calc Estimated GFR (MDRD) Non-Af Amer 117 mL/min >60 [facility] Comment on above: Non- GFR Calc Serum or plasma calcium jazmin urement (mass/volume)Ordered By: Eliseo Ricardo on 01-23-2024 Calcium [Mass/Vol] 9.0 mg/dL 8.5-10.1 [facility] Serum or plasma choriogonado tropin detectionOrdered By: Eliseo Ricardo on 01-23-2024 HCG ( test) Ql Negative [facility] Serum or plasma creatinine m easurement (mass/volume)Ordered By: Eliseo Ricardo on 01-23-2024 Creatinine [Mass/Vol] 0.61 mg/dL 0.55-1.02 [facility] Comment on above: The validity of the calculated GFR & GFRAA in patients over 70 years has not been determined. Clinical correlation is essential. Serum or plasma urea nitroge n measurement (mass/volume)Ordered By: Eliseo Ricardo on 01-23-2024 Urea nitrogen [Mass/Vol] 13 mg/dL 7-18 [facility] Thin prep Papanicolaou smear with manual screeningOrdered By: Eliseo Ricardo on 01-23-2024 Thin prep Papanicolaou smear with manual screening 8 5-15 [facility] .Auto Diffon 12-25-2023 Basophil, Absolute 0.1 10 3/mcL Normal 0.0-0.2 [facility] ([place]) Comment on above: Performed By: #### A CLINT, LIP, ADIFF, CBC, MDW, CMP, GFR #### [id number] [place], [place] [address] Basophils/100 WBC (Bld) 0.6 % Normal 0.0-2.5 [facility] ([place] Comment on above: Performed By: #### A CLINT, LIP, ADIFF, CBC, MDW, CMP, GFR #### [facility] [address] [place], [place] [address] Eosinophil, Absolute 0.4 10 3/mcL Normal 0.0-0.4 [facility] ([place]) Comment on above: Performed By: #### A CLINT, LIP, ADIFF, CBC, MDW, CMP, GFR #### [address] [address] Eosinophils/100 WBC (Bld) 4.3 % Normal 0.0-7.0 [facility] ([place] Comment on above: Performed By: #### A CLINT, LIP, ADIFF, CBC, MDW, CMP, GFR #### [address] [address] Lymphocyte, Absolute 2.2 10 3/mcL Normal 0.8-3.9 [facility] ([place]) Comment on above: Performed By: #### A CLINT, LIP, ADIFF, CBC, MDW, CMP, GFR #### [address] [address] Lymphocytes/100 WBC (Bld) 25.4 % Normal 10.0-50.0 [facility] ([place] Comment on above: Performed By: #### A CLINT, LIP, ADIFF, CBC, MDW, CMP, GFR #### [address] [address] Monocyte, Absolute 0.4 10 3/mcL Normal 0.2-1.0 [facility] ([place] Comment on above: Performed By: #### A CLINT, LIP, ADIFF, CBC, MDW, CMP, GFR #### [address] [address] Monocytes/100 WBC (Bld) 4.6 % Normal 1.7-13.0 [facility] ([place] Comment on above: Performed By: #### A CLINT, LIP, ADIFF, CBC, MDW, CMP, GFR #### [address] [address] Neutrophils/100 WBC (Bld) 65.1 % Normal 37.0-80.0 [facility] ([place] Comment on above: Performed By: #### A CLINT, LIP, ADIFF, CBC, MDW, CMP, GFR #### [address] [address] .GFRon 12-25-2023 GFR 103 ml/min/1.73sqm Normal [facility] ([place] Comment on above: Result Comment: GFR Population mean for , Non- Americans Ages 20-29 = 116 mL/min/1.73 sq.m. Ages 30-39 = 107 mL/min/1.73 sq.m. Ages 40-49 = 99 mL/min/1.73 sq.m. Ages 50-59 = 93 mL/min/1.73 sq.m. Ages 60-69 = 85 mL/min/1.73 sq.m. Ages 70+ = 75 mL/min/1.73 sq.m. Chronic Kidney Disease: Less than 60 mL/min/1.73 square meters End Stage Renal Disease: Less than 15 mL/min/1.73 square meters Performed By: #### P REGU, UA #### [address] [address] GFR Non- 85 ml/min/1.73sqm Normal [facility] ([place] Comment on above: Result Comment: GFR Population mean for , Non- Americans Ages 20-29 = 116 mL/min/1.73 sq.m. Ages 30-39 = 107 mL/min/1.73 sq.m. Ages 40-49 = 99 mL/min/1.73 sq.m. Ages 50-59 = 93 mL/min/1.73 sq.m. Ages 60-69 = 85 mL/min/1.73 sq.m. Ages 70+ = 75 mL/min/1.73 sq.m. Chronic Kidney Disease: Less than 60 mL/min/1.73 square meters End Stage Renal Disease: Less than 15 mL/min/1.73 square meters Performed By: #### P REGU, UA #### [address] [address] .MDWon 12-25-2023 Monocyte Distribution Width 16.35 Normal 0.00-20.00 [facility] ([place] Comment on above: Result Comment: For ED adult patients suspected of sepsis, MDW<=20.0 does not rule out sepsis or risk of sepsis Performed By: #### A CLINT, LIP, ADIFF, CBC, MDW, CMP, GFR #### [place] [address] .NEUABSon 12-25-2023 Neutrophil, Absolute 5.5 10 3/mcL Normal 2.9-6.2 [facility] ([place]) Comment on above: Performed By: #### A CLINT, LIP, ADIFF, CBC, MDW, CMP, GFR #### [place] [address] .Urinalysis Microscopic (AO) on 12-25-2023 UA Bacteria Trace Abnormal [facility] ([place] Comment on above: Performed By: #### P REGU, UAMICAO, UA #### [place] [address] UA RBC 0-5 Abnormal None Seen [facility] ([place] Comment on above: Performed By: #### P REGU, UAMICAO, UA #### [place] [address] UA Squam Epithelial LOADED Abnormal None Seen [facility] ([place]) Comment on above: Performed By: #### P REGU, UAMICAO, UA #### [place] [address] UA WBC 0-5 Abnormal None Seen [facility] ([place] Comment on above: Performed By: #### P REGU, UAMICAO, UA #### [place] [address] UA Yeast Trace Abnormal [facility] ([place] Comment on above: Performed By: #### P REGU, UAMICAO, UA #### [place] [address] CBCon 12-25-2023 Erythrocyte distribution width (RBC) [Ratio] 14.8 % High 11.5-14.5 [facility] ([place] Comment on above: Performed By: #### A CLINT, LIP, ADIFF, CBC, MDW, CMP, GFR #### [address] [address] Hematocrit (Bld) [Volume fraction] 41.3 % Normal 37.0-47.0 [facility] ([place] Comment on above: Performed By: #### A CLINT, LIP, ADIFF, CBC, MDW, CMP, GFR #### [address] [address] Hgb 14.0 G/dL Normal 12.0-16.0 [facility] ([place] Comment on above: Performed By: #### A CLINT, LIP, ADIFF, CBC, MDW, CMP, GFR #### [address] [address] MCH (RBC) [Entitic mass] 29.9 pg Normal 27.0-31.2 [facility] ([place] Comment on above: Performed By: #### A CILNT, LIP, ADIFF, CBC, MDW, CMP, GFR #### [place] [address] MCHC 33.9 G/dL Normal 33.0-37.0 [facility] ([place] Comment on above: Performed By: #### A CLINT, LIP, ADIFF, CBC, MDW, CMP, GFR #### [address] [address] MCV (RBC) [Entitic vol] 88.2 fL Normal 80.0-94.0 [facility] ([place] Comment on above: Performed By: #### A CLINT, LIP, ADIFF, CBC, MDW, CMP, GFR #### [address] [address] Platelet 238 10 3/mcL Normal 130-400 [facility] ([place] Comment on above: Performed By: #### A CLINT, LIP, ADIFF, CBC, MDW, CMP, GFR #### [address] [address] Platelet mean volume (Bld) [Entitic vol] 7.9 fL Normal 7.4-10.4 [facility] ([place] Comment on above: Performed By: #### A CLINT, LIP, ADIFF, CBC, MDW, CMP, GFR #### [address] [address] RBC 4.68 10 6/mcL Normal 4.20-5.40 [facility] ([place] Comment on above: Performed By: #### A CLINT, LIP, ADIFF, CBC, MDW, CMP, GFR #### [address] [address] WBC 8.5 10 3/mcL Normal 4.6-10.8 [facility] ([place] Comment on above: Performed By: #### A CLINT, LIP, ADIFF, CBC, MDW, CMP, GFR #### [address] [address] CMPon 12-25-2023 Albumin Level 4.1 G/dL Normal 3.5-5.0 [facility] ([place] Comment on above: Performed By: #### P REGU, UA #### [address] [address] Albumin/Globulin [Mass ratio] 1.1 {ratio} Normal 1.1-2.5 [facility] ([place] Comment on above: Performed By: #### P REGU, UA #### [address] [address] ALP [Catalytic activity/Vol] 67 U/L Normal 40-135 [facility] ([place] Comment on above: Performed By: #### P REGU, UA #### [address] [address] ALT [Catalytic activity/Vol] 17 U/L Normal 14-59 [facility] ([place] Comment on above: Performed By: #### P REGU, UA #### [address] [address] AST [Catalytic activity/Vol] 11 U/L Normal 10-40 [facility] ([place] Comment on above: Performed By: #### P REGU, UA #### [address] [address] Bili Total 0.2 mg/dL Normal 0.2-1.0 [facility] ([place] Comment on above: Result Comment: Use of this assay is not recommended for patients undergoing treatment with eltrombopag due to the potential for falsely elevated results. Performed By: #### P REGU, UA #### [address] [address] BUN/Creatinine Ratio 16 ratio Normal 7-27 [facility] ([place]) Comment on above: Performed By: #### P REGU, UA #### [address] [address] Calcium [Mass/Vol] 9.4 mg/dL Normal 8.4-10.2 [facility] ([place]) Comment on above: Performed By: #### P REGU, UA #### [address] [address] Chloride [Moles/Vol] 104 mmol/L Normal 98-107 [facility] ([place] Comment on above: Performed By: #### P REGU, UA #### [address] [address] CO2 [Moles/Vol] 26 mmol/L Normal 22-29 [facility] ([place] Comment on above: Performed By: #### P REGU, UA #### [address] [address] Creatinine [Mass/Vol] 0.77 mg/dL Normal 0.55-1.02 [facility] ([place] Comment on above: Performed By: #### P REGU, UA #### [address] [address] Electrolyte Balance 13.0 mEq/L Normal 4.0-15.0 [facility] ([place]) Comment on above: Performed By: #### P REGU, UA #### [address] [address] Globulin 3.8 G/dL Normal [facility] ([place] Comment on above: Performed By: #### P REGU, UA #### [address] [address] Glucose [Mass/Vol] 83 mg/dL Normal 70-105 [facility] ([place]) Comment on above: Performed By: #### P REGU, UA #### [address] [address] Potassium [Moles/Vol] 3.8 mmol/L Normal 3.5-5.1 [facility] ([place] Comment on above: Performed By: #### P REGU, UA #### [place] [address] [address] Sodium [Moles/Vol] 143 mmol/L Normal 136-145 [facility] ([place] Comment on above: Performed By: #### P REGU, UA #### [address] [address] Total Protein 7.9 G/dL Normal 6.4-8.2 [facility] ([place] Comment on above: Performed By: #### P REGU, UA #### [address] [address] Urea nitrogen [Mass/Vol] 12 mg/dL Normal 7-18 [facility] ([place] Comment on above: Performed By: #### P REGU, UA #### [address] [address] LABORATORYOrdered By: SYSTEM SYSTEM on 12-25-2023 Albumin BCP dye [Mass/Vol] 4.1 G/dL Normal 3.5 - 5.0 G/dL AO ADM SS Albumin/Globulin [Mass ratio] 1.1 {ratio} Normal 1.1 - 2.5 ratio AO ADM SS ALP [Catalytic activity/Vol] 67 U/L Normal 40 - 135 U/L AO ADM SS ALT With P-5'-P [Catalytic activity/Vol] 17 U/L Normal 14 - 59 U/L AO ADM SS AST With P-5'-P [Catalytic activity/Vol] 11 U/L Normal 10 - 40 U/L AO ADM SS Basophil, Absolute 0.1 103/mcL Normal 0.0 - 0.2 10^3/mcL AO Workflow SS Basophils/100 WBC (Bld) 0.6 % Normal 0.0 - 2.5 % AO Workflow SS Bilirubin [Mass/Vol] 0.2 mg/dL Normal 0.2 - 1 .0 mg/dL AO ADM SS Comment on above: Interpretive Data: U se of this assay is not recommended for patients undergoing treatment with eltrombopag due to the potential for falsely elevated results. Calcium [Mass/Vol] 9.4 mg/dL Normal 8.4 - 10. 2 mg/dL AO ADM SS Chloride [Moles/Vol] 104 mmol/L Normal 98 - 10 7 mmol/L AO ADM SS CO2 [Moles/Vol] 26 mmol/L Normal 22 - 29 mmol/L AO ADM SS Creatinine [Mass/Vol] 0.77 mg/dL Normal 0.55 - 1.02 mg/dL AO ADM SS Electrolyte Balance 13.0 mEq/L Normal 4.0 - 15 .0 mEq/L AO ADM SS Eosinophil, Absolute 0.4 103/mcL Normal 0.0 - 0 .4 10^3/mcL AO Workflow SS Eosinophils/100 WBC (Bld) 4.3 % Normal 0.0 - 7.0 % AO Workflow SS Erythrocyte distribution width (RBC) [Ratio] 14.8 % High 11.5 - 14.5 % AO Workflow SS GFR/1.73 sq M.predicted among blacks MDRD (S/P/Bld) [Vol rate/Area] 103 ml/min/1.73sqm Invalid Interpretation Code AO Chemistry S Comment on above: Interpretive Data: GFR Population mean for , Non- Americans Ages 20-29 = 116 mL/min/1.73 sq.m. Ages 30-39 = 107 mL/min/1.73 sq.m. Ages 40-49 = 99 mL/min/1.73 sq.m. Ages 50-59 = 93 mL/min/1.73 sq.m. Ages 60-69 = 85 mL/min/1.73 sq.m. Ages 70+ = 75 mL/min/1.73 sq.m. Chronic Kidney Disease: Less than 60 mL/min/1.73 square meters End Stage Renal Disease: Less than 15 mL/min/1.73 square meters GFR/1.73 sq M.predicted among non-blacks MDRD (S/P/Bld) [Vol rate/Area] 85 ml/min/1.73sqm Invalid Interpretation Code AO Chemistry S Comment on above: Interpretive Data: GFR Population mean for , Non- Americans Ages 20-29 = 116 mL/min/1.73 sq.m. Ages 30-39 = 107 mL/min/1.73 sq.m. Ages 40-49 = 99 mL/min/1.73 sq.m. Ages 50-59 = 93 mL/min/1.73 sq.m. Ages 60-69 = 85 mL/min/1.73 sq.m. Ages 70+ = 75 mL/min/1.73 sq.m. Chronic Kidney Disease: Less than 60 mL/min/1.73 square meters End Stage Renal Disease: Less than 15 mL/min/1.73 square meters Globulin 3.8 G/dL Invalid Interpretation Code AO ADM SS Glucose [Mass/Vol] 83 mg/dL Normal 70 - 105 mg/dL AO ADM SS Hematocrit (Bld) [Volume fraction] 41.3 % Normal 37.0 - 47.0 % AO Workflow SS Hemoglobin (Bld) [Mass/Vol] 14.0 G/dL Normal 12.0 - 16.0 G/dL AO Workflow SS Lipase [Catalytic activity/Vol] 47 U/L Normal 16 - 77 U/L AO ADM SS Lymphocyte, Absolute 2.2 103/mcL Normal 0.8 - 3 .9 10^3/mcL AO Workflow SS Lymphocytes/100 WBC (Bld) 25.4 % Normal 10.0 - 50.0 % AO Workflow SS MCH (RBC) [Entitic mass] 29.9 pg Normal 27.0 - 31.2 pg AO Workflow SS MCHC 33.9 G/dL Normal 33.0 - 37.0 G/dL AO Workflow SS MCV (RBC) [Entitic vol] 88.2 fL Normal 80.0 - 94.0 fL AO Workflow SS Monocyte distribution width Auto (Bld) [Entitic vol] 16.35 1 Normal 0.00 - 20.00 AO Workflow SS Comment on above: Result Comment: For ED adult patients suspected of sepsis, MDW<=20.0 does not rule out sepsis or risk of sepsis Monocyte, Absolute 0.4 103/mcL Normal 0.2 - 1.0 10^3/mcL AO Workflow SS Monocytes/100 WBC (Bld) 4.6 % Normal 1.7 - 13.0 % AO Workflow SS Neutrophil, Absolute 5.5 103/mcL Normal 2.9 - 6 .2 10^3/mcL AO Workflow SS Neutrophils/100 WBC (Bld) 65.1 % Normal 37.0 - 80.0 % AO Workflow SS Platelet mean volume (Bld) [Entitic vol] 7.9 fL Normal 7.4 - 10.4 fL AO Workflow SS Platelets (Bld) [#/Vol] 238 103/mcL Normal 130 - 400 10^3/mcL AO Workflow SS Potassium [Moles/Vol] 3.8 mmol/L Normal 3.5 - 5.1 mmol/L AO ADM SS Protein [Mass/Vol] 7.9 G/dL Normal 6.4 - 8.2 G/dL AO ADM SS RBC (Bld) [#/Vol] 4.68 106/mcL Normal 4.20 - 5.4 0 10^6/mcL AO Workflow SS Sodium [Moles/Vol] 143 mmol/L Normal 136 - 145 mmol/L AO ADM SS Urea nitrogen [Mass/Vol] 12 mg/dL Normal 7 - 18 mg/dL AO ADM SS Urea nitrogen/Creatinine [Mass ratio] 16 ratio Normal 7 - 27 ratio AO ADM SS WBC (Bld) [#/Vol] 8.5 103/mcL Normal 4.6 - 10.8 10^3/mcL AO Workflow SS LABORATORYOrdered By: Jason Sparks on 12-25-2023 Appearance (U) Slightly Cloudy *ABN* (12/25/23 11:30 AM) Invalid Interpretation Code Clear AO Auto Urine SS Bacteria LM.HPF (Urine sed) [#/Area] Trace /HPF Invalid Interpretation Code AO Auto Urine SS Bilirubin Ql (U) Negative (12/25/23 11:30 AM) Normal Negative AO Auto Urine SS Color (U) Yellow (12/25/23 11:30 AM) Normal AO Auto Urine SS Glucose Test strip (U) [Mass/Vol] Negative Normal Negative AO Auto Urine SS HCG ( test) Ql Negative (12/25/23 11:30 AM) Normal AO Manual Urine SS Hemoglobin Auto test strip (U) [Mass/Vol] Negative (12/25/23 11:30 AM) Normal Negative AO Auto Urine SS Ketones Ql (U) Negative Normal Negative AO Auto Urine SS test (u) int Not detected Invalid Interpretation Code AO Manual Urine SS UA Leuk Est Negative (12/25/23 11:30 AM) Normal Negative AO Auto Urine SS UA Nitrite Negative (12/25/23 11:30 AM) Normal Negative AO Auto Urine SS UA pH 7.0 (12/25/23 11:30 AM) Normal 5.0 - 8.0 AO Auto Urine SS UA Protein Negative Normal Negative AO Auto Urine SS UA RBC 0-5 /HPF Invalid Interpretation Code None Seen AO Auto Urine SS UA Spec Grav 1.020 (12/25/23 11:30 AM) Normal 1.015-1.025 AO Auto Urine SS UA Specimen Type Void (12/25/23 11:30 AM) Normal AO Auto Urine SS UA Squam Epithelial LOADED /HPF Invalid Interpretation Code None Seen AO Auto Urine SS UA Urobilinogen 0.2 E.U./dL Normal 0.2-1.0 AO Auto Urine SS WBC LM.HPF (Urine sed) [#/Area] 0-5 /HPF Invalid Interpretation Code None Seen AO Auto Urine SS Yeast LM.HPF (Urine sed) [#/Area] Trace /HPF Invalid Interpretation Code AO Auto Urine SS LIPon 12-25-2023 Lipase Level 47 U/L Normal 16-77 [facility] ([place] Comment on above: Performed By: #### P REGU, UA #### [address] [address] PREGUon 12-25-2023 HCG ( test) Ql (U) Negative Normal [facility] ([place] Comment on above: Performed By: #### P REGU, UAMICAO, UA #### [address] [address] test (u) int Not detected Invalid Interpretation Code [facility] ([place] Comment on above: Performed By: #### P REGU, UAMICAO, UA #### [address] [address] UAon 12-25-2023 Color (U) Yellow Normal [facility] ([place] Comment on above: Performed By: #### P REGU, UAMICAO, UA #### [address] [address] Glucose (U) [Mass/Vol] Negative Normal Negative [facility] ([place]) Comment on above: Performed By: #### P REGU, UAMICAO, UA #### [place] [address] Ketones Ql (U) Negative Normal Negative [facility] ([place] Comment on above: Performed By: #### P REGU, UAMICAO, UA #### [place] [address] UA Appear Slightly Cloudy Abnormal Clear [facility] ([place] Comment on above: Performed By: #### P REGU, UAMICAO, UA #### [place] [address] UA Blood Negative Normal Negative [facility] ([place] Comment on above: Performed By: #### P REGU, UAMICAO, UA #### [place] [address] UA Leuk Est Negative Normal Negative [facility] ([place] Comment on above: Performed By: #### P REGU, UAMICAO, UA #### [place] [address] UA Nitrite Negative Normal Negative [facility] ([place] Comment on above: Performed By: #### P REGU, UAMICAO, UA #### [place] [address] UA pH 7.0 Normal 5.0 - 8.0 [facility] ([place] Comment on above: Performed By: #### P REGU, UAMICAO, UA #### [place] [address] UA Protein Negative Normal Negative [facility] ([place] Comment on above: Performed By: #### P REGU, UAMICAO, UA #### [place] [address] UA Spec Grav 1.020 Normal 1.015-1.025 [facility] ([place] Comment on above: Performed By: #### P REGU, UAMICAO, UA #### [place] [address] UA Specimen Type Void Normal [facility] ([place] Comment on above: Performed By: #### P REGU, UAMICAO, UA #### [address] [address] UA Urobilinogen 0.2 E.U./dL Normal 0.2-1.0 [facility] ([place] Comment on above: Performed By: #### P REGU, UAMICAO, UA #### [address] [address] Urobilinogen (U) [Mass/Vol] Negative Normal Negative [facility] ([place] Comment on above: Performed By: #### P REGU, UAMICAO, UA #### [address] [address] LABORATORYOrdered By: Nadege Quach on 03-06-2023 Appearance (U) Clear (03/06/23 2:04 PM) Invalid Interpretation Code Clear AO Auto Urine SS Bilirubin Ql (U) Negative (03/06/23 2:04 PM) Invalid Interpretation Code Negative AO Auto Urine SS Color (U) Yellow (03/06/23 2:04 PM) Invalid Interpretation Code AO Auto Urine SS Glucose Test strip (U) [Mass/Vol] Negative Invalid Interpretation Code Negativemg/d L AO Auto Urine SS HCG ( test) Ql Negative (03/06/23 2:04 PM) Invalid Interpretation Code AO Manual Urine SS Hemoglobin Auto test strip (U) [Mass/Vol] Negative (03/06/23 2:04 PM) Invalid Interpretation Code Negative AO Auto Urine SS Ketones Ql (U) Negative Invalid Interpretation Code Negativemg/d L AO Auto Urine SS test (u) int Not detected Invalid Interpretation Code AO Manual Urine SS UA Leuk Est Negative (03/06/23 2:04 PM) Invalid Interpretation Code Negative AO Auto Urine SS UA Nitrite Negative (03/06/23 2:04 PM) Invalid Interpretation Code Negative AO Auto Urine SS UA pH 7.5 (03/06/23 2:04 PM) Invalid Interpretation Code 5.0 - 8.0 AO Auto Urine SS UA Protein Negative Invalid Interpretation Code Negativemg/d L AO Auto Urine SS UA Spec Grav 1.020 (03/06/23 2:04 PM) Invalid Interpretation Code 1.015-1.025 AO Auto Urine SS UA Specimen Type Clean Catch (03/06/23 2:04 PM) Invalid Interpretation Code AO Auto Urine SS UA Urobilinogen 0.2 E.U./dL Invalid Interpretation Code 0.2-1.0E.U./ dL AO Auto Urine SS PREGUon 03-06-2023 HCG ( test) Ql (U) Negative Normal [facility] [place] Comment on above: Performed By: #### P REGU, UA #### [place] [id number] test (u) int Not detected Invalid Interpretation Code [facility] [place] Comment on above: Performed By: #### P REGU, UA #### [place] [id number] UAon 03-06-2023 Color (U) Yellow Normal [facility] ([place] Comment on above: Performed By: #### P REGU, UA #### [place] [phone] Glucose (U) [Mass/Vol] Negative Normal Negative [facility] ([place]) Comment on above: Performed By: #### P REGU, UA #### [address] [address] Ketones Ql (U) Negative Normal Negative [facility] ([place] Comment on above: Performed By: #### P REGU, UA #### [address] [address] UA Appear Clear Normal Clear [facility] ([place] Comment on above: Performed By: #### P REGU, UA #### [address] [address] UA Blood Negative Normal Negative [facility] ([place] Comment on above: Performed By: #### P REGU, UA #### [address] [address] UA Leuk Est Negative Normal Negative [facility] ([place] Comment on above: Performed By: #### P REGU, UA #### [address] [address] UA Nitrite Negative Normal Negative [facility] ([place] Comment on above: Performed By: #### P REGU, UA #### [address] [address] UA pH 7.5 Normal 5.0 - 8.0 [facility] ([place] Comment on above: Performed By: #### P REGU, UA #### [address] [address] UA Protein Negative Normal Negative [facility] ([place] Comment on above: Performed By: #### P REGU, UA #### [place] [address] UA Spec Grav 1.020 Normal 1.015-1.025 [facility] ([place] Comment on above: Performed By: #### P REGU, UA #### [place] [address] UA Specimen Type Clean Catch Normal [facility] ([place] Comment on above: Performed By: #### P REGU, UA #### [address] [address] UA Urobilinogen 0.2 E.U./dL Normal 0.2-1.0 [facility] ([place] Comment on above: Performed By: #### P REGU, UA #### [place] [address] Urobilinogen (U) [Mass/Vol] Negative Normal Negative [facility] ([place] Comment on above: Performed By: #### P REGU, UA #### [place] [address] XR ABDOMEN APon 03-06-2023 XR ABDOMEN AP ORIGINAL EXAMINATION: ONE SUPINE XRAY VIEW(S) OF THE ABDOMEN 03/06/2023 2:55 pm COMPARISON: CT abdomen/pelvis 05/10/2021 HISTORY: ORDERING SYSTEM PROVIDED HISTORY: Left-sided abdominal pain Reason for Exam: abd pain FINDINGS: Nonobstructive bowel gas pattern. Moderate stool within the colon. The visceral outlines and fat stripes are within normal limits. No abnormal calcifications project over the renal shadows, expected course of the ureters, and bladder. There are few phleboliths within the pelvis. Right hemidiaphragm is not within the field of view. The minimally included lung bases are clear. No acute osseous abnormality. IMPRESSION: Nonobstructive bowel gas pattern. Moderate stool in the colon I have personally reviewed the images of this examination and agree with the resident's findings and interpretation. Interpreted by: Geovany العراقي MD Preliminary Report By: Ramila Bunn Electronically signed By Geovany العراقي MD Dictated Date: 03/06/2023 3:11:52 PM Prelim Date: 03/06/2023 3:13:18 PM Sign Date: 03/06/2023 3:17:07 PM Ordering Provider: JESSICA Sharma [facility] [place] BRAIN WO/W IVCONon 12-10 [facility] LABORATORYOrdered By: Mil Briseno on 10-07-2022 Appearance (U) Clear (10/07/22 2:39 PM) Invalid Interpretation Code Clear AO Auto Urine SS Bilirubin Ql (U) Negative (10/07/22 2:39 PM) Invalid Interpretation Code Negative AO Auto Urine SS Color (U) Yellow (10/07/22 2:39 PM) Invalid Interpretation Code AO Auto Urine SS Glucose Test strip (U) [Mass/Vol] Negative Invalid Interpretation Code Negativemg/d L AO Auto Urine SS Hemoglobin Auto test strip (U) [Mass/Vol] Negative (10/07/22 2:39 PM) Invalid Interpretation Code Negative AO Auto Urine SS Ketones Ql (U) Negative Invalid Interpretation Code Negativemg/d L AO Auto Urine SS UA Leuk Est Negative (10/07/22 2:39 PM) Invalid Interpretation Code Negative AO Auto Urine SS UA Nitrite Negative (10/07/22 2:39 PM) Invalid Interpretation Code Negative AO Auto Urine SS UA pH 6.0 (10/07/22 2:39 PM) Invalid Interpretation Code 5.0 - 8.0 AO Auto Urine SS UA Protein Negative Invalid Interpretation Code Negativemg/d L AO Auto Urine SS UA Spec Grav >=1.030 *ABN* (10/07/22 2:39 PM) Invalid Interpretation Code 1.015-1.025 AO Auto Urine SS UA Specimen Type Void (10/07/22 2:39 PM) Invalid Interpretation Code AO Auto Urine SS UA Urobilinogen 0.2 E.U./dL Invalid Interpretation Code 0.2-1.0E.U./ dL AO Auto Urine SS LABORATORYOrdered By: Jason Sparks on 10-07-2022 Basophil, Absolute 0.1 103/mcL Invalid Interpretation Code 0.0 - 0.2 10^3/mcL AO Workflow SS Basophils/100 WBC (Bld) 0.7 % Invalid Interpretation Code 0.0 - 2.5 % AO Workflow SS Eosinophil, Absolute 0.0 103/mcL Invalid Interpretation Code 0.0 - 0.4 10^3/mcL AO Workflow SS Eosinophils/100 WBC (Bld) 0.4 % Invalid Interpretation Code 0.0 - 7.0 % AO Workflow SS Erythrocyte distribution width (RBC) [Ratio] 19.1 % Invalid Interpretation Code 11.5 - 14.5 % AO Workflow SS Hematocrit (Bld) [Volume fraction] 36.9 % Invalid Interpretation Code 37.0 - 47.0 % AO Workflow SS Hemoglobin (Bld) [Mass/Vol] 12.2 G/dL Invalid Interpretation Code 12.0 - 16.0 G/dL AO Workflow SS Lymphocyte, Absolute 2.4 103/mcL Invalid Interpretation Code 0.8 - 3.9 10^3/mcL AO Workflow SS Lymphocytes/100 WBC (Bld) 20.1 % Invalid Interpretation Code 10.0 - 50.0 % AO Workflow SS MCH (RBC) [Entitic mass] 27.2 pg Invalid Interpretation Code 27.0 - 31.2 pg AO Workflow SS MCHC 33.0 G/dL Invalid Interpretation Code 33.0 - 37.0 G/dL AO Workflow SS MCV (RBC) [Entitic vol] 82.6 fL Invalid Interpretation Code 80.0 - 94.0 fL AO Workflow SS Monocyte distribution width Auto (Bld) [Entitic vol] 18.29 Invalid Interpretation Code 0.00 - 20.00 AO Workflow SS Comment on above: Result Comment: For ED adult patients suspected of sepsis, MDW<=20.0 does not rule out sepsis or risk of sepsis Monocyte, Absolute 0.5 103/mcL Invalid Interpretation Code 0.2 - 1.0 10^3/mcL AO Workflow SS Monocytes/100 WBC (Bld) 4.6 % Invalid Interpretation Code 1.7 - 13.0 % AO Workflow SS Neutrophil, Absolute 8.8 103/mcL Invalid Interpretation Code 2.9 - 6.2 10^3/mcL AO Workflow SS Neutrophils/100 WBC (Bld) 74.2 % Invalid Interpretation Code 37.0 - 80.0 % AO Workflow SS Platelet mean volume (Bld) [Entitic vol] 7.9 fL Invalid Interpretation Code 7.4 - 10.4 fL AO Workflow SS Platelets (Bld) [#/Vol] 221 103/mcL Invalid Interpretation Code 130 - 400 10^3/mcL AO Workflow SS RBC (Bld) [#/Vol] 4.47 106/mcL Invalid Interpretation Code 4.20 - 5.40 10^6/mcL AO Workflow SS WBC (Bld) [#/Vol] 11.8 103/mcL Invalid Interpretation Code 4.6 - 10.8 10^3/mcL AO Workflow SS LABORATORYOrdered By: SYSTEM SYSTEM on 10-07-2022 Calcium [Mass/Vol] 9.0 mg/dL Invalid Interpretation Code 8.4 - 10.2 mg/dL AO ADM SS Chloride [Moles/Vol] 105 mmol/L Invalid Interpretation Code 98 - 107 mmol/L AO ADM SS CO2 [Moles/Vol] 27 mmol/L Invalid Interpretation Code 22 - 29 mmol/L AO ADM SS Creatinine [Mass/Vol] 0.63 mg/dL Invalid Interpretation Code 0.55 - 1.02 mg/dL AO ADM SS Electrolyte Balance 7.0 mEq/L Invalid Interpretation Code 4.0 - 15.0 mEq/L AO ADM SS GFR 131 ml/min/1.73sqm Invalid Interpretation Code AO Chemistry S GFR Non- 108 ml/min/1.73sqm Invalid Interpretation Code AO Chemistry S Glucose [Mass/Vol] 108 mg/dL Invalid Interpretation Code 70 - 105 mg/dL AO ADM SS Potassium [Moles/Vol] 3.7 mmol/L Invalid Interpretation Code 3.5 - 5.1 mmol/L AO ADM SS Sodium [Moles/Vol] 139 mmol/L Invalid Interpretation Code 136 - 145 mmol/L AO ADM SS Urea nitrogen [Mass/Vol] 21 mg/dL Invalid Interpretation Code 7 - 18 mg/dL AO ADM SS Urea nitrogen/Creatinine [Mass ratio] 33 ratio Invalid Interpretation Code 7 - 27 ratio AO ADM SS ADDENDUMNOTEon 09-29-2022 ADDENDUMNOTE Addended by: BARBI LI on: 09/29/2022 03:27 PM Modules accepted: Orders Normal [facility] [id number] 09-28-2022 [id number] Referral sent. Normal [facility] Office Visiton 09-23-2022 Follow-up visit [id number] Kia Fiore 1985 F Date Provider Department Center 09/23/2022 [id number] LI [facility] Family History Problem Relation Age of Onset COPD Paternal Grandmother Breast cancer Neg Hx Colon cancer Neg Hx Uterine cancer Neg Hx Ovarian cancer Neg Hx Family Status - Relation Status Age at Paternal Grandmother Alive Neg Hx Father Alive Mother Alive Maternal Grandmother Alive Maternal Grandfather Paternal Grandfather Alive Level of Service:76382 [place] OFFICE/OUTPATIENT NEW MODERATE MDM 45-59 MINUTES Reason for Visit and Comments: ER Follow-up [831] Fatigue [46] Extremity Swelling [795] Rash [[id number]] Normal [facility] PATINSon 09-23-2022 PATINS Start tylenol 1000 m g every 8 hours for 5-7 days, then as needed after that for pain every 8 hours. Normal [facility] Progress Noteon 09-23-2022 Progress Note Consistent with cont act dermatitis bilateral arms. Is improving, continue emollient cream avoid further possible irritants. Normal [facility] Progress Note Clinical exam consistent with mild carpal tunnel syndrome bilateral. Recommend nighttime splinting avoid prolonged flexion of wrists. Begin stretches for carpal tunnel once inflammation has decreased and less painful. Normal [facility] Progress Note Majority of numbness in hands is likely secondary to carpal tunnel exacerbated by recent increased use of hands and wrists. Will check B12, TSH. CBC CMP ESR in the emergency room. Normal [facility] Progress Note Symptoms diffuse, wi ll check Rh, BING, CRP. ESR was normal in ER. Normal [facility] Progress Note We will check BING, repeat CRP and TSH Normal [facility] Progress Note Stable. Continue sertraline [address] [facility] Progress Note 09/23/2022 Lillian Fiore (: 1985) is a 36 y.o. female , Established patient, here for evaluation of the following chief complaint(s): ER Follow-up, Fatigue, Extremity Swelling, and Rash ASSESSMENT/PLAN: 1. Myalgia Assessment & Plan: We will check BING, repeat CRP and TSH Orders: - BING - C-reactive protein - Rheumatoid factor - TSH - methylPREDNISolone (Medrol Dospak) 4 MG tablets; Take as directed on package., Normal 2. Numbness Assessment & Plan: Majority of numbness in hands is likely secondary to carpal tunnel exacerbated by recent increased use of hands and wrists. Will check B12, TSH. CBC CMP ESR in the emergency room. Orders: - Vitamin B12 3. Diffuse arthralgia Assessment & Plan: Symptoms diffuse, will check Rh, BIGN, CRP. ESR was normal in ER. 4. Depressive disorder Assessment & Plan: Stable. Continue sertraline 100 mg daily 5. Irritant contact dermatitis due to other agents Assessment & Plan: Consistent with contact dermatitis bilateral arms. Is improving, continue emollient cream avoid further possible irritants. Consider fibromyalgia diagnosis if labs unremarkable. No follow-ups on file. SUBJECTIVE/OBJECTIVE: HPI -presents as new patient to establish care and for ER follow up. Went to [place] ER for generalized joint stiffness, hands, feet, knees and back (reports lower back pain intermittently since gymnastics as a child- but seems worse now), sometimes gets muscle cramps, thighs, forearms, muscle weakness x 5 weeks. Covid 19 about 3 weeks ago- got worse after that. Numbness and tingling hands and feet, usually positional- brief sharp pain. Has twin infants at home, 2 school aged children at home. Fiance. Reports fatigue and not much sleep since bringing babies home. Maybe 2 hours at one time at night. States she also hasn't been eating great, usually snacking throughout the day and trying to sleep when she can. Has noticed the pain/numbness in her hands worsens after she has been picking up the infant carriers. Work up in ER consisted of UA, preg, cbc, esr, cmp- all unremarkable. CRP slightly elevated at 3.29. was given short rx for norco. And naproxen. Reports naproxen may have been making her nauseated and not helping much with the pain. States her mood has been stable on sertraline. Health Maintenance: Review of Systems Constitutional: Positive for fatigue. Negative for appetite change, chills and fever. HENT: Negative. Respiratory: Negative for cough, chest tightness and shortness of breath. Cardiovascular: Negative for chest pain, palpitations and leg swelling. Gastrointestinal: Positive for nausea (occasional). Negative for abdominal pain, constipation, diarrhea and vomiting. Genitourinary: Negative for difficulty urinating. Musculoskeletal: Positive for arthralgias, back pain, joint swelling, myalgias, neck pain and neck stiffness. Skin: Positive for rash (improving, light itchy rash on bilateral lower arms/top of hands.). Neurological: Positive for weakness (generalized) and numbness. Negative for dizziness, tremors, syncope and light-headedness. Psychiatric/Behavioral: Positive for sleep disturbance (new twins at home). Negative for decreased concentration. Family History Problem Relation Name Age of Onset COPD Paternal Grandmother Breast cancer Neg Hx Colon cancer Neg Hx Uterine cancer Neg Hx Ovarian cancer Neg Hx Patient Active Problem List Diagnosis Opioid dependence in remission (CMS/HCC) (HCC) Anxiety Mixed hyperlipidemia PCOS (polycystic ovarian syndrome) Mixed hypertriglyceridemia Migraine headache Depressive disorder Diffuse arthralgia Numbness Myalgia Carpal tunnel syndrome on both sides Irritant contact dermatitis due to other agents Vitals: 09/23/22 0941 BP: 108/72 Pulse: 82 Resp: 16 SpO2: 97% Weight: 167 lb (75.8 kg) Physical Exam Constitutional: General: She is not in acute distress. Appearance: Normal appearance. She is not ill-appearing. HENT: Head: Normocephalic and atraumatic. Right Ear: Tympanic membrane normal. Left Ear: Tympanic membrane normal. Nose: No congestion or rhinorrhea. Mouth/Throat: Mouth: Mucous membranes are moist. Pharynx: Oropharynx is clear. Eyes: Conjunctiva/sclera: Conjunctivae normal. Cardiovascular: Rate and Rhythm: Normal rate and regular rhythm. Pulses: Normal pulses. Heart sounds: Normal heart sounds. No murmur heard. No friction rub. Pulmonary: Effort: Pulmonary effort is normal. Breath sounds: Normal breath sounds. Musculoskeletal: Right shoulder: No tenderness. Normal range of motion. Left shoulder: No tenderness. Normal range of motion. Right upper arm: Bony tenderness present. Left upper arm: Bony tenderness present. Right elbow: Normal range of motion. Tenderness present. Left elbow: Normal range of motion. Tenderness present. Right wrist: Swelling and tenderness present. No snuff box (more content not included)... Normal [facility] Absolute lymphocyte counton 09-17-2022 Lymphocytes Auto (Unsp spec) [#/Vol] 2.20 10*3/uL 0.83-4.51 [facility] Work Phone: Basophil percentageon 2021 Basophil percentage 0 SEEN /hpf 0-5 [facility] Work Phone: Basophils/100 WBC (Bld) 0.6 % 0-1 [facility] Work Phone: Chloride [Moles/Vol] 105 mmol/L 98-107 [facility] Work Phone: Eosinophils/100 WBC (Bld) 2.2 % 0-5 [facility] Work Phone: Glucose [Mass/Vol] 88 mg/dL 74-106 [facility] Work Phone: Neutrophils (Bld) [#/Vol] 4.2 10*3/uL 2.0-7.7 [facility] Work Phone: Neutrophils/100 WBC (Bld) 59.9 % 47-70 [facility] Work Phone: Potassium [Moles/Vol] 4.1 mmol/L 3.5-5.1 [facility] Work Phone: Comment on above: Moderate Hemolysis, Result may be falsely increased. Sodium [Moles/Vol] 135 mmol/L 136-145 [facility] Work Phone: WBC (Bld) [#/Vol] 7.0 10*3/uL 4.4-11.0 [facility] Work Phone: Beta hCG serum qualon 2021 Beta HCG ( test) Ql Negative [facility] Work Phone: Bilirubin Test strip Ql (U)o n 09-17-2022 Bilirubin Ql (U) Negative Negative [facility] Work Phone: Blood erythrocytes count (nu mber/volume)on 09-17-2022 RBC (Bld) [#/Vol] 4.87 10*6/uL 4.2-5.[address] [facility] Work Phone: Blood hemoglobin measurement (mass/volume)on 09-17-2022 Hemoglobin (Bld) [Mass/Vol] 12.8 g/dL 12.0-15.0 [facility] Work Phone: [phone] Blood lymphocytes/100 leukoc yteson 09-17-2022 Lymphocytes/100 WBC (Bld) 31.6 % 19-41 [facility] Work Phone: [phone] Blood monocytes/100 leukocyt eson 09-17-2022 Monocytes/100 WBC (Bld) 5.3 % 0-10 [facility] Work Phone: Blood platelet mean volumeon 09-17-2022 Platelet mean volume (Bld) [Entitic vol] 10.1 fL 6.2-12.0 [facility] Work Phone: Determination of erythrocyte mean corpuscular volume (MCV)on 09-17-2022 MCV (RBC) [Entitic vol] 83.2 fL 81-99 [facility] Work Phone: Erythrocyte sedimentation ra mateusz 09-17-2022 ESR (Bld) [Velocity] 17 mm/h 0-30 [facility] Work Phone: Hematocrit Auto (Bld) [Volum e fraction]on 09-17-2022 Hematocrit (Bld) [Volume fraction] 40.5 % 37-47 [facility] Work Phone: Ketones Test strip Ql (U)on 09-17-2022 Ketones Ql (U) Negative Negative [facility] Work Phone: Laboratory - Chemistry and C hemistry - challengeon 09-17-2022 CO2 [Moles/Vol] 24.0 mmol/L 21.0-32.0 [facility] Work Phone: Urea nitrogen/Creatinine [Mass ratio] 25.6 mg/mg 10-20 [facility] Work Phone: Laboratory - Hematology and Cell countson 09-17-2022 Erythrocyte distribution width (RBC) [Entitic vol] 57.2 fL 35.1-43.9 [facility] Work Phone: [phone] Erythrocyte distribution width (RBC) [Ratio] 18.9 % 11.6-14.6 [facility] Work Phone: [phone] Immature granulocytes/100 WBC (Bld) 0.400 % 0.0-0.9 [facility] Work Phone: [phone] Comment on above: IG% - Immature Granu locytes (promyelocytes, myelocytes and metamyelocytes) > 1% indicates that a LEFT SHIFT is Present. MCH (RBC) [Entitic mass] 26.3 pg 27.0-32.0 [facility] Work Phone: [phone] Nucleated RBC/100 WBC (Bld) [Ratio] 0 % 0-5 [facility] Work Phone: [phone] MCHC Auto (RBC) [Mass/Vol]on 09-17-2022 MCHC (RBC) [Mass/Vol] 31.6 g/dL 32-36 [facility] Work Phone: [phone] Mucus LM Ql (Urine sed)on Mucus Ql (Urine sed) 0 SEEN /hpf [facility] Work Phone: [phone] Nitrite Test strip Ql (U)on 09-17-2022 Nitrite Ql (U) Negative Negative [facility] Work Phone: [phone] Panel Informationon 09-17 Estimated Creatinine Clearance Calc 104.08 ml/min [facility] Work Phone: [phone] Estimated GFR (MDRD) Amer 139 mL/min >60 [facility] Work Phone: [phone] Comment on above: GFR Calc Estimated GFR (MDRD) Non-Af Amer 115 mL/min >60 [facility] Work Phone: [phone] Comment on above: Non- GFR Calc Platelets bldon 09-17-2022 Platelets (Bld) [#/Vol] 196 10*3/uL 150-450 [facility] Work Phone: Protein Test strip Ql (U)on 09-17-2022 Protein Ql (U) Negative Negative [facility] Work Phone: Serum or plasma C reactive p rotein measurement (mass/volume)on 09-17-2022 CRP [Mass/Vol] 3.29 mg/L 0.0-3.0 [facility] Work Phone: Comment on above: C-Reactive Protein ( CRP) provides useful information for thediagnosis, therapy and monitoring of inflammatory processesand associated diseases. For the evaluation of Relative Riskfor Cardiovascular Disease, a High Sensitivity CRP (HSCRP)should be ordered. Serum or plasma calcium jazmin urement (mass/volume)on 09-17-2022 Calcium [Mass/Vol] 8.7 mg/dL 8.5-10.1 [facility] Work Phone: Serum or plasma creatinine m easurement (mass/volume)on 09-17-2022 Creatinine [Mass/Vol] 0.63 mg/dL 0.55-1.02 [facility] Work Phone: Comment on above: The validity of the calculated GFR & GFRAA in patients over 70 years has not been determined. Clinical correlation is essential. Serum or plasma urea nitroge n measurement (mass/volume)on 09-17-2022 Urea nitrogen [Mass/Vol] 16 mg/dL 7-18 [facility] Work Phone: [phone] Squamous epithelial cells de tection in urine sediment by light microscopyon 09-17-2022 Epithelial cells.squamous LM Ql (Urine sed) 5-10 SEEN /hpf 5-10 [facility] Work Phone: [phone] Thin prep Papanicolaou smear with manual screeningon 09-17-2022 Thin prep Papanicolaou smear with manual screening 6 5-15 [facility] Work Phone: [phone] Urine blood detectionon 09-02 RBC Ql (U) Negative Negative [facility] Work Phone: [phone] RBC Ql (U) 0-5 SEEN /hpf 0-5 [facility] Work Phone: [phone] Urine clarityon 09-17-2022 Clarity (U) Sl. Cloudy Clear [facility] Work Phone: Urine color determinationon 09-17-2022 Color (U) Yellow Yellow [facility] Work Phone: Urine glucose detectionon Glucose Ql (U) Normal mg/dl Normal [facility] Work Phone: Urine leukocyte esterase det ection by dipstickon 09-17-2022 Leukocyte esterase Test strip Ql (U) Negative Negative [facility] Work Phone: Urine pHon 09-17-2022 pH (U) 7.0 [pH] 5.0 - 8.0 [facility] Work Phone: Urine sediment bacteria coun t by microscopy (number/high power field)on 09-17-2022 Bacteria LM.HPF (Urine sed) [#/Area] 0 /[HPF] None Seen [facility] Work Phone: Urine specific gravity measu rementon 09-17-2022 Specific gravity (U) [Rel density] 1.010 1.002-1.030 [facility] Work Phone: Urobilinogen Auto test strip Ql (U)on 09-17-2022 Urobilinogen Ql (U) Normal mg/dl Normal [facility] Work Phone: XR CHEST 2V FRONTAL/LATon [facility] XR Chest PA and Lateralon IMPRESSION: No acute radiographic abnormality. Electrical And Electronic Assembler: SAVITA Transcribe Date/Time: Aug 03 2022 10:08A Dictated by : YVONNE COLINDRES MD This examination was interpreted and the report reviewed and electronically signed by: YVONNE COLINDRES MD on Aug 03 2022 10:09AM [facility] [[email or web address]] DIVISION OF RADIOLOGY * * *Final Report* * * DATE OF EXAM: Aug 03 2022 10:02AM WOX [id number] - XR CHEST 2V FRONTAL/LAT / PROCEDURE REASON: Acute cough * * * * Physician Interpretation * * * * EXAMINATION: CHEST RADIOGRAPH (2 VIEW FRONTAL & LATERAL) CLINICAL HISTORY: Acute cough MQ: XC2_6 EXAM DATE/TIME: 08/03/2022 10:02 AM COMPARISON: Chest x-ray dated September 01, 2019 RESULT: Lines, tubes, and devices: None. Lungs and pleura: No consolidation. No lung mass. No pleural effusion. No pneumothorax. Cardiomediastinal silhouette: Normal cardiomediastinal silhouette. Bones and soft tissues: Unremarkable. DIVISION OF RADIOLOGY Provider, Donald Costa [place] - 08/03/2022 * * *Final Report* * * DATE OF EXAM: Aug 03 2022 10:02AM WOX [id number] - XR CHEST 2V FRONTAL/LAT / PROCEDURE REASON: Acute cough * * * * Physician Interpretation * * * * EXAMINATION: CHEST RADIOGRAPH (2 VIEW FRONTAL & LATERAL) CLINICAL HISTORY: Acute cough MQ: XC2_6 EXAM DATE/TIME: 08/03/2022 10:02 AM COMPARISON: Chest x-ray dated September 01, 2019 RESULT: Lines, tubes, and devices: None. Lungs and pleura: No consolidation. No lung mass. No pleural effusion. No pneumothorax. Cardiomediastinal silhouette: Normal cardiomediastinal silhouette. Bones and soft tissues: Unremarkable. IMPRESSION IMPRESSION: No acute radiographic abnormality. Electrical And Electronic Assembler: PSCB Transcribe Date/Time: Aug 03 2022 10:08A Dictated by : YVONNE COLINDRES MD This examination was interpreted and the report reviewed and electronically signed by: YVONNE COLINDRES MD on Aug 03 2022 10:09AM EST [facility] Radiology Study observation (narrative) [facility] XR Chest PA and LateralOrder ed By: [facility] Provider on 08-03-2022 [facility] Basophil percentageon 2021 WBC (Bld) [#/Vol] 19.2 10*3/uL 4.4-11.[address] [facility] Work Phone: Blood erythrocytes count (nu mber/volume)on 06-25-2022 RBC (Bld) [#/Vol] 3.47 10*6/uL 4.2-5.[address] [facility] Work Phone: Blood hemoglobin measurement (mass/volume)on 06-25-2022 Hemoglobin (Bld) [Mass/Vol] 9.4 g/dL 12.0-15.0 [facility] Work Phone: Blood platelet mean volumeon 06-25-2022 Platelet mean volume (Bld) [Entitic vol] 10.2 fL 6.2-12.0 [facility] Work Phone: Determination of erythrocyte mean corpuscular volume (MCV)on 06-25-2022 MCV (RBC) [Entitic vol] 84.4 fL 81-99 [facility] Work Phone: Hematocrit Auto (Bld) [Volum e fraction]on 06-25-2022 Hematocrit (Bld) [Volume fraction] 29.3 % 37-47 [facility] Work Phone: Laboratory - Hematology and Cell countson 06-25-2022 Erythrocyte distribution width (RBC) [Entitic vol] 41.8 fL 35.1-43.9 [facility] Work Phone: Erythrocyte distribution width (RBC) [Ratio] 13.6 % 11.6-14.6 [facility] Work Phone: MCH (RBC) [Entitic mass] 27.1 pg 27.0-32.0 [facility] Work Phone: MCHC Auto (RBC) [Mass/Vol]on 06-25-2022 MCHC (RBC) [Mass/Vol] 32.1 g/dL 32-36 [facility] Work Phone: Platelets bldon 06-25-2022 Platelets (Bld) [#/Vol] 206 10*3/uL 150-450 [facility] Work Phone: Basophil percentageon 2021 Basophil percentage 0-5 SEEN /hpf 0-5 [facility] Work Phone: Bilirubin Test strip Ql (U)o n 06-24-2022 Bilirubin Ql (U) Negative Negative [facility] Work Phone: Ketones Test strip Ql (U)on 06-24-2022 Ketones Ql (U) Negative Negative [facility] Work Phone: Laboratory - Drug toxicology on 06-24-2022 Benzodiazepines Ql (U) Negative < 200 ng/mL [facility] Work Phone: Cannabinoids Screen Ql (U) Negative < 50 ng/mL [facility] Work Phone: [phone] Cocaine Ql (U) Negative < 300 ng/mL [facility] Work Phone: [phone] Opiates Ql (U) Negative < 300 ng/mL [facility] Work Phone: [phone] Mucus LM Ql (Urine sed)on Mucus Ql (Urine sed) 0 SEEN /hpf [facility] Work Phone: Nitrite Test strip Ql (U)on 06-24-2022 Nitrite Ql (U) Negative Negative [facility] Work Phone: No Panel Informationon 06-24 Vaginal Amniotic Fluid Detection Positive Negative [facility] Work Phone: Comment on above: Amniotic fluid prese nt indicates rupture of Membranes. RESULTS CALLED TO [facility] 06/24/221811 Radha Julien.REPORT READ BACK BY SAME . MDMA (Ecstasy) Screen Negative < 500 ng/mL [facility] Work Phone: Urine Barbiturates Screen Positive < 200 ng/mL [facility] Work Phone: [phone] Urine Drug Screen Comment [facility] Work Phone: Comment on above: CONFIRMATORY TESTING FOR ALL POSITIVE URINE DRUG SCREENRESULTS WILL ONLY BE SENT OUT UPON PHYSICIAN ORDER. VISTA Urine Drug Screen methods provide only preliminaryanalytical test results. A more specific alternate chemicalmethod must be used in order to obtain a confirmedanalytical result. Gas chromatography/mass spectrometery(GC/MS) is the preferred confirmatory method. Clinicalconsideration and professional judgement should be appliedto any drug of abuse test result, particularly whenpreliminary positive results are used. URINE TCA TESTING MUST BE ORDERED SEPARATELY. USE TESTMNEMONIC: [facility] Urine Methadone Screen Negative < 300 ng/mL [facility] Work Phone: Protein Test strip Ql (U)on 06-24-2022 Protein Ql (U) Negative Negative [facility] Work Phone: Squamous epithelial cells de tection in urine sediment by light microscopyon 06-24-2022 Epithelial cells.squamous LM Ql (Urine sed) 5-10 SEEN /hpf 5-10 [facility] Work Phone: Urine amphetamine measuremen t (moles/volume)on 06-24-2022 Amphetamine (U) [Moles/Vol] Negative <1000 ng/mL [facility] Work Phone: Urine blood detectionon 06-04 RBC Ql (U) Negative Negative [facility] Work Phone: RBC Ql (U) 0-5 SEEN /hpf 0-5 [facility] Work Phone: Urine clarityon 06-24-2022 Clarity (U) Clear Clear [facility] Work Phone: Urine color determinationon 06-24-2022 Color (U) Yellow Yellow [facility] Work Phone: Urine glucose detectionon Glucose Ql (U) Normal mg/dl Normal [facility] Work Phone: Urine leukocyte esterase det ection by dipstickon 06-24-2022 Leukocyte esterase Test strip Ql (U) Negative Negative [facility] Work Phone: Urine pHon 06-24-2022 pH (U) 6.5 [pH] 5.0 - 8.0 [facility] Work Phone: Urine phencyclidine (PCP) de tectionon 06-24-2022 Phencyclidine Ql (U) Negative < 25 ng/mL [facility] Work Phone: Urine sediment bacteria coun t by microscopy (number/high power field)on 06-24-2022 Bacteria LM.HPF (Urine sed) [#/Area] 1 /[HPF] None Seen [facility] Work Phone: Urine specific gravity measu rementon 06-24-2022 Specific gravity (U) [Rel density] 1.015 1.002-1.030 [facility] Work Phone: Urobilinogen Auto test strip Ql (U)on 06-24-2022 Urobilinogen Ql (U) Normal mg/dl Normal [facility] Work Phone: STREP A MOLECULAR (POC)on Procedural Control Valid [facility] Strep A (POCT) Negative Negative [facility] Progress Noteon 06-22-2022 [employer] Authentication Interface Message Text [facility] MATERNAL MEDICINE - at [place] DR. ALVAREZ OFFICE VISIT NOTE DOS: 06/22/2022 06/22/2022 Chief Complaint She presents for review of progress in thus far and for comprehensive review of her maternal -obstetric- risks in this . The reasons for the visit are as highlighted in the concluding summary communication to supervisor epoxy fabrication which is my problem-based office review. History of Present Illness Lillian is a 36 y.o. female at 32w5d. She denies history of for fever, chills, breathing difficulties, chest pain, or abdominal pain. The patient feels well. No history of vaginal bleeding or leakage of fluid vaginally. Obstetric History OB History Para Term AB Living 5 2 1 1 2 2 SAB IAB Ectopic Multiple Live Births 2 0 0 0 2 # Outcome Date GA Lbr David/2nd Weight Sex Delivery Anes PTL Lv 5 Current 4 2018 9w0d SAB Comments: D&C 3 Term 02/14/16 38w0d 3.544 kg F Vag-Spont EPI N BRIA Comments: 17P injections 2 2010 5w0d SAB 1 08/14/09 34w0d 2.126 kg M Vag-Spont EPI BRIA Comments: labor started at 30 wks - I reviewed it at patient encounter and pertinent aspects are integrated into the below problem list-based assessment Past Medical History No past medical history on file. - I reviewed it at patient encounter and pertinent aspects are integrated into the below problem list-based assessment Social History - I reviewed it at patient encounter and pertinent aspects are integrated into the below problem list-based assessment Family History - I reviewed it at patient encounter, including screening genetic pedigree as available, and pertinent aspects are integrated into the below problem list-based assessment Medications and Allergies . Allergies Allergen Reactions Dicyclomine Other (See Comments) Severe headache. Penicillin G Rash Escitalopram Hives and Nausea Only Penicillins Rash - I reviewed it at patient encounter and are integrated into the below problem list-based assessment. Allergies were reviewed Laboratory Studies and Imaging studies - I reviewed it at patient encounter and pertinent aspects are integrated into assessments. Vitals BP 119/74 Pulse 100 Temp 36.8 C (98.3 F) (Oral) Resp 18 Ht 160 cm Wt 82.6 kg (182 lb) LMP 11/05/2021 SpO2 98% BMI 32.25 kg/m - heart rate as per imaging report today, as applicable and available. ASSESSMENT AND PLAN After integrating maternal and obstetric and considerations, my recommendations are as assembled. Active Non-Hospital Problems Diagnosis Date Noted Mental health disorder 06/01/2022 06/01/2022 - Office Visit - MD Micheal: 28w5d. Mental Health: She is on Zoloft 150 mg daily that was started by her supervisor epoxy fabrication and she is doing well. We discussed that addressing mental health concerns promote obstetric outcomes. There is medication related small risk for mild transient withdrawal syndrome (central nervous system, caitlyn, respiratory or gastrointestinal signs); however, indicated usage of the medications is appropriate. The risk of pulmonary hypertension with SSRI medications is very small and not supported by all the studies. Advice given about COVID-19 virus infection 06/01/2022 06/01/2022 - Office Visit - MD Micheal: 28w5d. Infectious disease: The CDC and ACOG recommendation is in favor of COVID vaccination and subsequent interval booster vaccination, given the increased risk for severe disease when COVID infection occurs during . She has had COVID vaccination and she is encouraged to have a booster dose. care in third trimester 06/01/2022 06/22/2022 - Office Visit - MD Micheal: 32w5d . Stable Co-Morbidities and Lifestyle: BMI is 32. She has a normal Glucola. Her depression is stable on Zoloft 150 mg daily. She has no adverse lifestyle. She is presently on obstetric rest and not working. [4]. Care: Reviewed care. She really had COVID vaccination. Covid precautions are in place. Her BP is 119/74. She presently has complaint. She provides no history of abdominal pain or cramping, regular contractions, leakage of fluid, or vaginal bleeding. She does have pelvic joint discomfort not unexpected for twin gestation. Care plan discussed with patient 06/01/2022 06/22/2022 - Office Visit - MD Micheal: 32w5d . Current Medications: Daily Vitamins. She is on Pepcid 20 mg twice a day. She is also on Zoloft 150 mg daily. S/P Celestone 06-18-22 and 06-19-22. Follow-Up Imaging and Antepartum Testing: She is scheduled with us for twice a week BPP with weekly UA CD with us and interval growth assessment every 2 weeks an appointment to guide further obstetric care. Delivery Plans: The obstetric goal is for vaginal delivery at mid term gestation i.e., 38 0/7 weeks to 38 6/7 weeks due to MC/DA twin gestation. Ultim (more content not included)... Normal [facility] CULTURE URINEon 06-21-2022 CULTURE URINE CULTURE URINE --> Status: F No growth (<1,000 CFU/ml). Normal [facility] Comment on above: Performed By: #### C /UR #### [facility] [address] [place] [address] Group B Strep Screen PCRon 0 06-21-2022 Group B Strep Screen PCR Group B Strep Screen PCR --> Status: F NEGATIVE Expected Result: Negative CDC guidelines for prevention of Group B Strep disease recommends collection of both vaginal and rectal specimens for optimal recovery of GBS. Methodology - Real Time PCR (Cepheid) Expected Result: Negative CDC guidelines for prevention of Group B Strep disease recommends collection of both vaginal and rectal specimens for optimal recovery of GBS. Methodology - Real Time PCR (Cepheid) [facility] Comment on above: Performed By: #### G BSPC #### [facility] [address] [place] [address] Antibody Identificationon Antibody Identification Antibody Identification: POS, ANTI D FROM RHOGAM [facility] Comment on above: Performed By: #### T SGL, ABID #### [facility] Fibrinogenon 06-20-2022 Fibrinogen 286 mg/dL Normal 200-400 [facility] Comment on above: Performed By: #### F IBGN, PT/AP #### [facility] [address] [place] [address] Fibrinogen 286 mg/dL 200 - 400 mg/dL [facility] No Panel Informationon 06-20 Test Performed by [facility], [address] [place] [address] [facility] PROTIME/INR & PTTon 06-20-20 22 aPTT Coag (Bld) [Time] 26.6 s 20 - 30.5 s [facility] Comment on above: NOTE: The therapeuti c time for Heparin anticoagulation, based on Xa activity inhibition, is an APTT of 46-80 seconds. INR Coag (Bld) [Relative time] 0.9 {INR} [facility] Comment on above: Recommended Anticoag ulant Therapy: SEE BELOW ----- INR of 2.0 - 3.0 : - Prophylaxis of Venous Thrombosis (high-risk surgery) - Treatment of Venous Thrombosis - Treatment of Pulmonary Embolism (Includes tissue heart valves, Acute Myocardial Infarction to prevent systemic embolism, Valvular Heart Disease, and Atrial Fibrillation) ----- INR of 2.5 - 3.5 : - Mechanical Prosthetic Valves (high risk) - If oral anticoagulant therapy is used to prevent Myocardial Infarction PT Coag (PPP) [Time] 9.9 s 9 - 12 s [facility] Comment on above: . Protime AND APTTon aPTT Coag (Bld) [Time] 26.6 s Normal 20.0-30.5 [facility] Comment on above: Result Comment: NOTE : The therapeutic time for Heparin anticoagulation, based on Xa activity inhibition, is an APTT of 46-80 seconds. Performed By: #### F IBGN, PT/AP #### [facility] [address] [place] [address] INR 0.9 Normal 0.9-1.1 [facility] Comment on above: Result Comment: Tolu mmended Anticoagulant Therapy: SEE BELOW ----- INR of 2.0 - 3.0 : - Prophylaxis of Venous Thrombosis (high-risk surgery) - Treatment of Venous Thrombosis - Treatment of Pulmonary Embolism (Includes tissue heart valves, Acute Myocardial Infarction to prevent systemic embolism, Valvular Heart Disease, and Atrial Fibrillation) ----- INR of 2.5 - 3.5 : - Mechanical Prosthetic Valves (high risk) - If oral anticoagulant therapy is used to prevent Myocardial Infarction Performed By: #### F IBGN, PT/AP #### [address] [address] PT Coag (PPP) [Time] 9.9 s Normal 9.0-12.0 [facility] Comment on above: Result Comment: . Performed By: #### F IBGN, PT/AP #### [address] [address] ANTIBODY IDENTIFICATIONon Antibody ID POS, ANTI D FROM RHOGAM [facility] Test Performed by [id number] [place] [address] [facility] C. Trachomatis / N. Gonorrho eae, DNA Probeon 06-19-2022 C. trachomatis DNA FRANCESCO+probe Ql (Genital specimen) NOT Detected Chlamydia trachomatis Nucleic Acid NOT Detected by DNA Amplification using the [employer] System. Culture is the only recommended test in medical-legal cases such as suspected child abuse or molestation. [facility] N. gonorrhoeae DNA FRANCESCO+probe Ql (Unsp spec) NOT Detected Neisseria gonorrhoeae Nucleic Acid NOT Detected by DNA Amplification using the Cepheid System. Culture is the only recommended test in medical-legal cases such as suspected child abuse or molestation. [facility] Test Performed by [address] [facility] CBCon 06-19-2022 Hematocrit (Bld) [Volume fraction] 31.7 % Low 35 - 47 % [facility] Hemoglobin (Bld) [Mass/Vol] 9.9 g/dL Low 11.7 - 16 g/dL [facility] Interpretation and review of laboratory results Abnormal [facility] MCH (RBC) [Entitic mass] 26.1 pg 26 - 34 pg [facility] MCHC (RBC) [Mass/Vol] 31.3 % Low 32 - 36 % [facility] MCV (RBC) [Entitic vol] 83.3 fL 79 - 98 fL [facility] Platelet distribution width (Bld) [Ratio] 13.9 % 11.5 - 14.5 % [facility] Platelet mean volume (Bld) [Entitic vol] 8.8 fL 7.4 - 12.4 fL [facility] Comment on above: MPV is a calculated measurement using platelet volume ratio. Platelets (Bld) [#/Vol] 210 10*3/uL 140 - 440 10*3/uL [facility] RBC (Bld) [#/Vol] 3.80 10*6/uL 3.8 - 5.2 10*6/uL [facility] WBC (Bld) [#/Vol] 15.1 10*3/uL High 3.6 - 10.7 10*3/uL [facility] Test Performed by [facility], [address] [place] [id number] [facility] Chlamydia and GC PCR Panelon 06-19-2022 Chlamydia and GC PCR Panel Chlamydia trachomatis PCR --> Status: F NOT Detected Chlamydia trachomatis Nucleic Acid NOT Detected by DNA Amplification using the Cepheid System. Culture is the only recommended test in medical-legal cases such as suspected child abuse or molestation. Chlamydia trachomatis Nucleic Acid NOT Detected by DNA Amplification using the Cepheid System. Culture is the only recommended test in medical-legal cases such as suspected child abuse or molestation. Neisseria gonorrhoeae PCR --> Status: F NOT Detected Neisseria gonorrhoeae Nucleic Acid NOT Detected by DNA Amplification using the Cepheid System. Culture is the only recommended test in medical-legal cases such as suspected child abuse or molestation. Neisseria gonorrhoeae Nucleic Acid NOT Detected by DNA Amplification using the Cepheid System. Culture is the only recommended test in medical-legal cases such as suspected child abuse or molestation. Normal [facility] Comment on above: Performed By: #### C TNGP #### [address] [address] Hemogramon 06-19-2022 Erythrocyte distribution width (RBC) [Ratio] 13.9 % Normal 11.5-14.5 [facility] Comment on above: Performed By: #### H EMOG #### [facility] [address] [place] [address] Hematocrit (Bld) [Volume fraction] 31.7 % Low 35.0-47.0 [facility] Comment on above: Performed By: #### H EMOG #### [facility] [address] [place], [place] Hemoglobin (Bld) [Mass/Vol] 9.9 g/dL Low 11.7-16.0 [facility] Comment on above: Performed By: #### H EMOG #### [facility] [address] [place], [place] MCH (RBC) [Entitic mass] 26.1 pg Normal 26.0-34.0 [facility] Comment on above: Performed By: #### H EMOG #### [facility] [address] [place], [place] MCHC 31.3 % Low 32.0-36.0 [facility] Comment on above: Performed By: #### H EMOG #### [facility] [address] [place], [place] MCV (RBC) [Entitic vol] 83.3 fL Normal 79.0-98.0 [facility] Comment on above: Performed By: #### H EMOG #### [facility] [address] [place], [place] Platelet mean volume (Bld) [Entitic vol] 8.8 fL Normal 7.4-12.4 [facility] Comment on above: Result Comment: MPV is a calculated measurement using platelet volume ratio. Performed By: #### H EMOG #### [facility] [address] [place], [place] Platelets (Bld) [#/Vol] 210 10*3/uL Normal 140-440 [facility] Comment on above: Performed By: #### H EMOG #### [facility] [address] [place], [place] RBC (Bld) [#/Vol] 3.80 10*6/uL Normal 3.80-5.20 [facility] Comment on above: Performed By: #### H EMOG #### [facility] [address] [place], [place] WBC (Bld) [#/Vol] 15.1 10*3/uL High 3.6-10.7 [facility] Comment on above: Performed By: #### H EMOG #### [facility] [address] [place] [address] TS GELon 06-19-2022 TS GEL ABO Group: A Rh, Gel: NEG Antibody Screen Gel: POS Normal [facility] Comment on above: Performed By: #### T SGL, ABID #### [facility] TYPE AND SCREENon 06-19-2022 ABO Grouping A [facility] Rh Type Negative [facility] Test Performed by [facility], [address] [place] [address] [facility] Absolute lymphocyte counton 06-18-2022 Lymphocytes Auto (Unsp spec) [#/Vol] 0.94 10*3/uL 0.83-4.51 [facility] Work Phone: Basophil percentageon 2021 C. trachomatis DNA FRANCESCO+probe Ql (Unsp spec) Negative Negative [facility] Work Phone: Basophils/100 WBC (Bld) 0.2 % 0-1 [facility] Work Phone: Eosinophils/100 WBC (Bld) 0.0 % 0-5 [facility] Work Phone: Neutrophils (Bld) [#/Vol] 12.7 10*3/uL 2.0-7.7 [facility] Work Phone: Neutrophils/100 WBC (Bld) 91.0 % 47-70 [facility] Work Phone: WBC (Bld) [#/Vol] 14.0 10*3/uL 4.4-11.[address] [facility] Work Phone: Bilirubin Test strip Ql (U)o n 06-18-2022 Bilirubin Ql (U) Negative Negative [facility] Work Phone: Blood erythrocytes count (nu mber/volume)on 06-18-2022 RBC (Bld) [#/Vol] 3.90 10*6/uL 4.2-5.[address] [facility] Work Phone: Blood hemoglobin measurement (mass/volume)on 06-18-2022 Hemoglobin (Bld) [Mass/Vol] 10.7 g/dL 12.0-15.0 [facility] Work Phone: Blood lymphocytes/100 leukoc yteson 06-18-2022 Lymphocytes/100 WBC (Bld) 6.7 % 19-41 [facility] Work Phone: Blood manual differential co mment interpretation (narrative result)on 06-18-2022 Manual differential comment Jett (Bld) [Interp] SCANNED [facility] Work Phone: Blood monocytes/100 leukocyt eson 06-18-2022 Monocytes/100 WBC (Bld) 1.4 % 0-10 [facility] Work Phone: Blood platelet adequacy dete ction by light microscopyon 06-18-2022 Platelets LM Ql (Bld) ADEQUATE ADEQ [facility] Work Phone: Blood platelet mean volumeon 06-18-2022 Platelet mean volume (Bld) [Entitic vol] 11.9 fL 6.2-12.0 [facility] Work Phone: Determination of erythrocyte mean corpuscular volume (MCV)on 06-18-2022 MCV (RBC) [Entitic vol] 91.0 fL 81-99 [facility] Work Phone: Hematocrit Auto (Bld) [Volum e fraction]on 06-18-2022 Hematocrit (Bld) [Volume fraction] 35.5 % 37-47 [facility] Work Phone: Ketones Test strip Ql (U)on 06-18-2022 Ketones Ql (U) 5 mg/dl Negative [facility] Work Phone: Laboratory - Chemistry and C hemistry - challengeon 06-18-2022 Glucose Ql (U) Negative [facility] Work Phone: Laboratory - Hematology and Cell countson 06-18-2022 Erythrocyte distribution width (RBC) [Entitic vol] 45.2 fL 35.1-43.9 [facility] Work Phone: Erythrocyte distribution width (RBC) [Ratio] 13.6 % 11.6-14.6 [facility] Work Phone: Immature granulocytes/100 WBC (Bld) 0.700 % 0.0-0.9 [facility] Work Phone: Comment on above: IG% - Immature Granu locytes (promyelocytes, myelocytes and metamyelocytes) > 1% indicates that a LEFT SHIFT is Present. MCH (RBC) [Entitic mass] 27.4 pg 27.0-32.0 [facility] Work Phone: Nucleated RBC/100 WBC (Bld) [Ratio] 0 % 0-5 [facility] Work Phone: Laboratory - Urinalysison Protein Ql (U) Negative [facility] Work Phone: MCHC Auto (RBC) [Mass/Vol]on 06-18-2022 MCHC (RBC) [Mass/Vol] 30.1 g/dL 32-36 [facility] Work Phone: Neisseria gonorrhoeae detect ion by PCRon 06-18-2022 N. gonorrhoeae DNA FRANCESCO+probe Ql (Cervical mucus) Negative Negative [facility] Work Phone: Nitrite Test strip Ql (U)on 06-18-2022 Nitrite Ql (U) Negative Negative [facility] Work Phone: No Panel Informationon 06-18 Specimen Comment (Misc) Not Reportable [facility] Work Phone: Platelets bldon 06-18-2022 Platelets (Bld) [#/Vol] 214 10*3/uL 150-450 [facility] Work Phone: Protein Test strip Ql (U)on 06-18-2022 Protein Ql (U) 15 mg/dl Negative [facility] Work Phone: Thin prep Papanicolaou smear with manual screeningon 06-18-2022 Thin prep Papanicolaou smear with manual screening Negative Negative [facility] Work Phone: Urine blood detectionon 06-03 RBC Ql (U) Negative Negative [facility] Work Phone: Urine clarityon 06-18-2022 Clarity (U) Clear Clear [facility] Work Phone: Urine color determinationon 06-18-2022 Color (U) Yellow Yellow [facility] Work Phone: Urine glucose detectionon Glucose Ql (U) Normal mg/dl Normal [facility] Work Phone: Urine leukocyte esterase det ection by dipstickon 06-18-2022 Leukocyte esterase Test strip Ql (U) Negative Negative [facility] Work Phone: Urine pHon 06-18-2022 pH (U) 6.5 [pH] 5.0 - 8.0 [facility] Work Phone: Urine specific gravity measu rementon 06-18-2022 Specific gravity (U) [Rel density] 1.020 1.002-1.030 [facility] Work Phone: Urobilinogen Auto test strip Ql (U)on 06-18-2022 Urobilinogen Ql (U) Normal mg/dl Normal [facility] Work Phone: Progress Noteon 06-01-2022 [employer] Authentication Interface Message Text [facility] MATERNAL MEDICINE - [facility] DR. ALVAREZ OFFICE VISIT NOTE DOS: 06/01/2022 06/01/2022 Chief Complaint She presents for review of progress in thus far and for comprehensive review of her maternal -obstetric- risks in this . The reasons for the visit are as highlighted in the concluding summary communication to supervisor epoxy fabrication which is my problem-based office review. History of Present Illness Lillian is a 36 y.o. female at Unknown. She denies history of for fever, chills, breathing difficulties, chest pain, or abdominal pain. The patient feels well. No history of vaginal bleeding or leakage of fluid vaginally. Obstetric History OB History Para Term AB Living 5 2 1 1 2 2 SAB IAB Ectopic Multiple Live Births 2 2 # Outcome Date GA Lbr David/2nd Weight Sex Delivery Anes PTL Lv 5 Current 4 2018 9w0d SAB Comments: D&C 3 Term 02/14/16 38w0d 3.544 kg F Vag-Spont EPI N BRIA Comments: 17P injections 2 SAB 2010 5w0d SAB 1 08/14/09 34w0d 2.126 kg M Vag-Spont EPI BRIA Comments: labor started at 30 wks - I reviewed it at patient encounter and pertinent aspects are integrated into the below problem list-based assessment Past Medical History No past medical history on file. - I reviewed it at patient encounter and pertinent aspects are integrated into the below problem list-based assessment Social History - I reviewed it at patient encounter and pertinent aspects are integrated into the below problem list-based assessment Family History - I reviewed it at patient encounter, including screening genetic pedigree as available, and pertinent aspects are integrated into the below problem list-based assessment Medications and Allergies . Allergies Allergen Reactions Dicyclomine Other (See Comments) Severe headache. Penicillin G Rash Escitalopram Hives and Nausea Only Penicillins Rash - I reviewed it at patient encounter and are integrated into the below problem list-based assessment. Allergies were reviewed Laboratory Studies and Imaging studies - I reviewed it at patient encounter and pertinent aspects are integrated into assessments. Vitals BP 114/59 Pulse 92 Temp 36.6 C (97.9 F) (Oral) Resp 18 Ht 160 cm Wt 78.9 kg (174 lb) LMP 11/05/2021 SpO2 98% BMI 30.82 kg/m - heart rate as per imaging report today, as applicable and available. ASSESSMENT AND PLAN After integrating maternal and obstetric and considerations, my recommendations are as assembled. Active Non-Hospital Problems Diagnosis Date Noted Mental health disorder 06/01/2022 06/01/2022 - Office Visit - MD Micheal: 28w5d. Mental Health: She is on Zoloft 150 mg daily that was started by her supervisor epoxy fabrication and she is doing well. We discussed that addressing mental health concerns promote obstetric outcomes. There is medication related small risk for mild transient withdrawal syndrome (central nervous system, caitlyn, respiratory or gastrointestinal signs); however, indicated usage of the medications is appropriate. The risk of pulmonary hypertension with SSRI medications is very small and not supported by all the studies. Advice given about COVID-19 virus infection 06/01/2022 06/01/2022 - Office Visit - MD Micheal: 28w5d. Infectious disease: The CDC and ACOG recommendation is in favor of COVID vaccination and subsequent interval booster vaccination, given the increased risk for severe disease when COVID infection occurs during . She has had COVID vaccination and she is encouraged to have a booster dose. care in third trimester 06/01/2022 06/01/2022 - Office Visit - MD Micheal: 28w5d. Stable Co-Morbidities and Lifestyle: BMI is 30. She is in excellent general health. She has no adverse lifestyle. Care: Reviewed care. Glucola on May 21, 2022 was 151 mg/dL and subsequent 3-hour OGTT T values are [phone] all of which are within normal limits and reassuring. Additionally her hemoglobin on that day was 11.0 g/dL. Covid precautions are in place. Her BP is 114/59. She presently has complaint. She provides no history of abdominal pain or cramping, leakage of fluid, or vaginal bleeding. Care plan discussed with patient 06/01/2022 06/01/2022 - Office Visit - MD Micheal: 28w5d. Current Medications: Daily Vitamins. She is on Pepcid 20 mg twice a day. She is also on Zoloft 150 mg daily. Follow-Up Imaging and Antepartum Testing: She is scheduled with us for BPP on Tuesdays and Fridays (except next week when it will be Tuesday) with UA CD each week on Tuesdays and interval growth assessment will occur every 2 weeks to guide further obstetric care Delivery Plans: Ultimately, the mode and timing of delivery should be based on potentially evolving obstetric and condition. Considerations wi (more content not included)... Normal [facility] Quantitative serum or plasma 3 hour gestational glucose tolerance panelon 05-27-2022 Glucose tolerance 3 hours gestational panel See comment [facility] Work Phone: Comment on above: FASTING 76 Col: 05/04 02/21 [id number] TOLERANCE TEST FOR Reference Interval GESTATIONAL DIABETES Fasting <105 mg/dL 1 hour <190 mg/dl 2 hour <165 mg/dl 3 hour <145 mg/dl 1 HR GLU 133 Col: 05/27/22 1108 2 HR GLU 119 Col: 05/27/22 1206 3 HR GLU 108 Col: 05/27/22 1306 Absolute lymphocyte counton 05-21-2022 Lymphocytes Auto (Unsp spec) [#/Vol] 1.34 10*3/uL 0.83-4.51 [facility] Work Phone: Basophil percentageon 2021 Basophils/100 WBC (Bld) 0.4 % 0-1 [facility] Work Phone: Eosinophils/100 WBC (Bld) 0.6 % 0-5 [facility] Work Phone: Neutrophils (Bld) [#/Vol] 6.6 10*3/uL 2.0-7.7 [facility] Work Phone: Neutrophils/100 WBC (Bld) 77.8 % 47-70 [facility] Work Phone: WBC (Bld) [#/Vol] 8.5 10*3/uL 4.4-11.0 [facility] Work Phone: Blood erythrocytes count (nu mber/volume)on 05-21-2022 RBC (Bld) [#/Vol] 3.91 10*6/uL 4.2-5.[address] [facility] Work Phone: Blood hemoglobin measurement (mass/volume)on 05-21-2022 Hemoglobin (Bld) [Mass/Vol] 11.0 g/dL 12.0-15.0 [facility] Work Phone: Blood lymphocytes/100 leukoc yteson 05-21-2022 Lymphocytes/100 WBC (Bld) 15.8 % 19-41 [facility] Work Phone: Blood monocytes/100 leukocyt eson 05-21-2022 Monocytes/100 WBC (Bld) 4.9 % 0-10 [facility] Work Phone: Blood platelet mean volumeon 05-21-2022 Platelet mean volume (Bld) [Entitic vol] 10.3 fL 6.2-12.0 [facility] Work Phone: [phone] Determination of erythrocyte mean corpuscular volume (MCV)on 05-21-2022 MCV (RBC) [Entitic vol] 87.2 fL 81-99 [facility] Work Phone: [phone] Gestational diabetes screen 1-hour screen with 50g oral glucose loadon 05-21-2022 Glucose 1 Hr post 50 g glucose PO [Mass/Vol] 151 mg/dL 70-140 [facility] Work Phone: [phone] Hematocrit Auto (Bld) [Volum e fraction]on 05-21-2022 Hematocrit (Bld) [Volume fraction] 34.1 % 37-47 [facility] Work Phone: [phone] Laboratory - Chemistry and C hemistry - challengeon 05-21-2022 Glucose Ql (U) Negative [facility] Work Phone: [phone] Laboratory - Hematology and Cell countson 05-21-2022 Erythrocyte distribution width (RBC) [Entitic vol] 41.6 fL 35.1-43.9 [facility] Work Phone: [phone] Erythrocyte distribution width (RBC) [Ratio] 13.3 % 11.6-14.6 [facility] Work Phone: [phone] Immature granulocytes/100 WBC (Bld) 0.500 % 0.0-0.9 [facility] Work Phone: [phone] Comment on above: IG% - Immature Granu locytes (promyelocytes, myelocytes and metamyelocytes) > 1% indicates that a LEFT SHIFT is Present. MCH (RBC) [Entitic mass] 28.1 pg 27.0-32.0 [facility] Work Phone: [phone] Nucleated RBC/100 WBC (Bld) [Ratio] 0 % 0-5 [facility] Work Phone: [phone] Laboratory - Urinalysison Protein Ql (U) Trace [facility] Work Phone: [phone] MCHC Auto (RBC) [Mass/Vol]on 05-21-2022 MCHC (RBC) [Mass/Vol] 32.3 g/dL 32-36 [facility] Work Phone: Platelets bldon 05-21-2022 Platelets (Bld) [#/Vol] 222 10*3/uL 150-450 [facility] Work Phone: Laboratory - Chemistry and C hemistry - challengeon 05-07-2022 Glucose Ql (U) Negative [facility] Work Phone: Laboratory - Urinalysison Protein Ql (U) Negative [facility] Work Phone: Laboratory - Chemistry and C hemistry - challengeon 04-09-2022 Glucose Ql (U) Negative [facility] Work Phone: Laboratory - Urinalysison Protein Ql (U) Negative [facility] Work Phone: Laboratory - Chemistry and C hemistry - challengeon 03-11-2022 Glucose Ql (U) Negative [facility] Work Phone: Laboratory - Urinalysison Protein Ql (U) Negative [facility] Work Phone: Absolute lymphocyte counton 02-12-2022 Lymphocytes Auto (Unsp spec) [#/Vol] 1.88 10*3/uL 0.83-4.51 [facility] Work Phone: Basophil percentageon 2021 Basophils/100 WBC (Bld) 0.3 % 0-1 [facility] Work Phone: Eosinophils/100 WBC (Bld) 2.3 % 0-5 [facility] Work Phone: Neutrophils (Bld) [#/Vol] 9.1 10*3/uL 2.0-7.7 [facility] Work Phone: Neutrophils/100 WBC (Bld) 76.0 % 47-70 [facility] Work Phone: WBC (Bld) [#/Vol] 11.9 10*3/uL 4.4-11.[address] [facility] Work Phone: [phone] Blood erythrocytes count (nu mber/volume)on 02-12-2022 RBC (Bld) [#/Vol] 4.22 10*6/uL 4.2-5.[address] [facility] Work Phone: Blood hemoglobin measurement (mass/volume)on 02-12-2022 Hemoglobin (Bld) [Mass/Vol] 12.5 g/dL 12.0-15.0 [facility] Work Phone: [phone] Blood lymphocytes/100 leukoc yteson 02-12-2022 Lymphocytes/100 WBC (Bld) 15.7 % 19-41 [facility] Work Phone: [phone] Blood monocytes/100 leukocyt eson 02-12-2022 Monocytes/100 WBC (Bld) 5.2 % 0-10 [facility] Work Phone: [phone] Blood platelet mean volumeon 02-12-2022 Platelet mean volume (Bld) [Entitic vol] 9.9 fL 6.2-12.0 [facility] Work Phone: [phone] Determination of erythrocyte mean corpuscular volume (MCV)on 02-12-2022 MCV (RBC) [Entitic vol] 91.2 fL 81-99 [facility] Work Phone: [phone] Hematocrit Auto (Bld) [Volum e fraction]on 02-12-2022 Hematocrit (Bld) [Volume fraction] 38.5 % 37-47 [facility] Work Phone: [phone] Laboratory - Hematology and Cell countson 02-12-2022 Erythrocyte distribution width (RBC) [Entitic vol] 43.9 fL 35.1-43.9 [facility] Work Phone: [phone] Erythrocyte distribution width (RBC) [Ratio] 13.1 % 11.6-14.6 [facility] Work Phone: [phone] Immature granulocytes/100 WBC (Bld) 0.500 % 0.0-0.9 [facility] Work Phone: Comment on above: IG% - Immature Granu locytes (promyelocytes, myelocytes and metamyelocytes) > 1% indicates that a LEFT SHIFT is Present. MCH (RBC) [Entitic mass] 29.6 pg 27.0-32.0 [facility] Work Phone: Nucleated RBC/100 WBC (Bld) [Ratio] 0 % 0-5 [facility] Work Phone: MCHC Auto (RBC) [Mass/Vol]on 02-12-2022 MCHC (RBC) [Mass/Vol] 32.5 g/dL 32-36 [facility] Work Phone: [phone] Panel Informationon 02-12 Thyroid Stimulating Hormone (TSH) 0.66 uIU/mL 0.358-3.74 [facility] Work Phone: [phone] Platelets bldon 02-12-2022 Platelets (Bld) [#/Vol] 221 10*3/uL 150-450 [facility] Work Phone: [phone] Whole blood hemoglobin A1c/t otal hemoglobin ratio (mass fraction)on 02-12-2022 HbA1c (Bld) [Mass fraction] 4.7 % 3.8-5.6 [facility] Work Phone: Comment on above: Normal < 5.7 % Predi abetic 5.7 - 6.4 % Diabetic >or= 6.5 % Please note range changes. Absolute lymphocyte counton 02-11-2022 Lymphocytes Auto (Unsp spec) [#/Vol] 1.72 10*3/uL 0.83-4.51 [facility] Work Phone: [phone] Basophil percentageon 2021 Basophil percentage 0-5 SEEN /hpf 0-5 [facility] Work Phone: [phone] Basophils/100 WBC (Bld) 0.3 % 0-1 [facility] Work Phone: [phone] Bilirubin [Mass/Vol] 0.30 mg/dL 0.20-1.00 [facility] Work Phone: [phone] Comment on above: For patients on eltr ombopag therapy, use of Dimension Brady TBIL is not recommended. Chloride [Moles/Vol] 106 mmol/L 98-107 [facility] Work Phone: Eosinophils/100 WBC (Bld) 1.5 % 0-5 [facility] Work Phone: Glucose [Mass/Vol] 104 mg/dL 74-106 [facility] Work Phone: Comment on above: Fasting Glucose resu lt from 100 to 125 mg/dL suggests IMPAIRED HOMEOSTASIS per A.D.A. criteria. Lactate [Moles/Vol] 0.7 mmol/L 0.4-2.[address] [facility] Work Phone: Neutrophils (Bld) [#/Vol] 12.0 10*3/uL 2.0-7.7 [facility] Work Phone: Neutrophils/100 WBC (Bld) 81.5 % 47-70 [facility] Work Phone: Potassium [Moles/Vol] 3.6 mmol/L 3.5-5.1 [facility] Work Phone: Protein [Mass/Vol] 6.9 g/dL 6.4-8.2 [facility] Work Phone: Sodium [Moles/Vol] 135 mmol/L 136-145 [facility] Work Phone: WBC (Bld) [#/Vol] 14.8 10*3/uL 4.4-11.[address] [facility] Work Phone: Bilirubin Test strip Ql (U)o n 02-11-2022 Bilirubin Ql (U) Negative Negative [facility] Work Phone: Blood erythrocytes count (nu mber/volume)on 02-11-2022 RBC (Bld) [#/Vol] 3.97 10*6/uL 4.2-5.[address] [facility] Work Phone: Blood hemoglobin measurement (mass/volume)on 02-11-2022 Hemoglobin (Bld) [Mass/Vol] 12.0 g/dL 12.0-15.0 [facility] Work Phone: Blood lymphocytes/100 leukoc yteson 02-11-2022 Lymphocytes/100 WBC (Bld) 11.6 % 19-41 [facility] Work Phone: Blood monocytes/100 leukocyt eson 02-11-2022 Monocytes/100 WBC (Bld) 4.7 % 0-10 [facility] Work Phone: Blood platelet mean volumeon 02-11-2022 Platelet mean volume (Bld) [Entitic vol] 10.2 fL 6.2-12.0 [facility] Work Phone: Determination of erythrocyte mean corpuscular volume (MCV)on 02-11-2022 MCV (RBC) [Entitic vol] 89.9 fL 81-99 [facility] Work Phone: Hematocrit Auto (Bld) [Volum e fraction]on 02-11-2022 Hematocrit (Bld) [Volume fraction] 35.7 % 37-47 [facility] Work Phone: Ketones Test strip Ql (U)on 02-11-2022 Ketones Ql (U) 15 mg/dl Negative [facility] Work Phone: Laboratory - Chemistry and C hemistry - challengeon 02-11-2022 ALP [Catalytic activity/Vol] 64 U/L 45-117 [facility] Work Phone: ALT [Catalytic activity/Vol] 18 U/L 13-56 [facility] Work Phone: CO2 [Moles/Vol] 22.0 mmol/L 21.0-32.0 [facility] Work Phone: Globulin (S) [Mass/Vol] 4.2 g/dL 2.2-4.2 [facility] Work Phone: Urea nitrogen/Creatinine [Mass ratio] 16.8 mg/mg 10-20 [facility] Work Phone: Laboratory - Coagulationon 0 02-11-2022 aPTT Coag (Bld) [Time] 32.1 s 24.1-36.2 [facility] Work Phone: Laboratory - Hematology and Cell countson 02-11-2022 Erythrocyte distribution width (RBC) [Entitic vol] 43.2 fL 35.1-43.9 [facility] Work Phone: [phone] Erythrocyte distribution width (RBC) [Ratio] 13.1 % 11.6-14.6 [facility] Work Phone: [phone] Immature granulocytes/100 WBC (Bld) 0.400 % 0.0-0.9 [facility] Work Phone: [phone] Comment on above: IG% - Immature Granu locytes (promyelocytes, myelocytes and metamyelocytes) > 1% indicates that a LEFT SHIFT is Present. MCH (RBC) [Entitic mass] 30.2 pg 27.0-32.0 [facility] Work Phone: Nucleated RBC/100 WBC (Bld) [Ratio] 0 % 0-5 [facility] Work Phone: [phone] MCHC Auto (RBC) [Mass/Vol]on 02-11-2022 MCHC (RBC) [Mass/Vol] 33.6 g/dL 32-36 [facility] Work Phone: Mucus LM Ql (Urine sed)on Mucus Ql (Urine sed) 0 SEEN /hpf [facility] Work Phone: Nitrite Test strip Ql (U)on 02-11-2022 Nitrite Ql (U) Negative Negative [facility] Work Phone: No Panel Informationon 02-11 Estimated Creatinine Clearance Calc 136.61 ml/min [facility] Work Phone: [phone] Estimated GFR (MDRD) Amer 192 mL/min >60 [facility] Work Phone: [phone] Comment on above: GFR Calc Estimated GFR (MDRD) Non-Af Amer 159 mL/min >60 [facility] Work Phone: [phone] Comment on above: Non- GFR Calc Platelets bldon 02-11-2022 Platelets (Bld) [#/Vol] 209 10*3/uL 150-450 [facility] Work Phone: Protein Test strip Ql (U)on 02-11-2022 Protein Ql (U) Negative Negative [facility] Work Phone: [phone] Serum or plasma albumin jazmin urement (mass/volume)on 02-11-2022 Albumin [Mass/Vol] 2.7 g/dL 3.2-5.0 [facility] Work Phone: [phone] Serum or plasma albumin/glob ulin mass ratioon 02-11-2022 Albumin/Globulin [Mass ratio] 0.6 {ratio} 0.9-2.4 [facility] Work Phone: [phone] Serum or plasma calcium jazmin urement (mass/volume)on 02-11-2022 Calcium [Mass/Vol] 9.0 mg/dL 8.5-10.1 [facility] Work Phone: [phone] Serum or plasma creatinine m easurement (mass/volume)on 02-11-2022 Creatinine [Mass/Vol] 0.48 mg/dL 0.55-1.02 [facility] Work Phone: Comment on above: The validity of the calculated GFR & GFRAA in patients over 70 years has not been determined. Clinical correlation is essential. Serum or plasma urea nitroge n measurement (mass/volume)on 02-11-2022 Urea nitrogen [Mass/Vol] 8 mg/dL 7-18 [facility] Work Phone: [phone] Squamous epithelial cells de tection in urine sediment by light microscopyon 02-11-2022 Epithelial cells.squamous LM Ql (Urine sed) 5-10 SEEN /hpf 5-10 [facility] Work Phone: [phone] Thin prep Papanicolaou smear with manual screeningon 02-11-2022 Thin prep Papanicolaou smear with manual screening 18 U/L 15-37 [facility] Work Phone: [phone] Thin prep Papanicolaou smear with manual screening 7 5-15 [facility] Work Phone: [phone] Urine blood detectionon 01-31 RBC Ql (U) Negative Negative [facility] Work Phone: RBC Ql (U) 0 SEEN /hpf 0-5 [facility] Work Phone: Urine clarityon 02-11-2022 Clarity (U) Sl. Cloudy Clear [facility] Work Phone: Urine color determinationon 02-11-2022 Color (U) Yellow Yellow [facility] Work Phone: Urine glucose detectionon Glucose Ql (U) Normal mg/dl Normal [facility] Work Phone: Urine leukocyte esterase det ection by dipstickon 02-11-2022 Leukocyte esterase Test strip Ql (U) 25 /ul Negative [facility] Work Phone: Urine pHon 02-11-2022 pH (U) 7.0 [pH] 5.0 - 8.0 [facility] Work Phone: Urine sediment bacteria coun t by microscopy (number/high power field)on 02-11-2022 Bacteria LM.HPF (Urine sed) [#/Area] 1 /[HPF] None Seen [facility] Work Phone: Urine specific gravity measu rementon 02-11-2022 Specific gravity (U) [Rel density] 1.010 1.002-1.030 [facility] Work Phone: Urobilinogen Auto test strip Ql (U)on 02-11-2022 Urobilinogen Ql (U) Normal mg/dl Normal [facility] Work Phone: Laboratory - Chemistry and C hemistry - challengeon 02-10-2022 Glucose Ql (U) Negative [facility] Work Phone: Laboratory - Urinalysison Protein Ql (U) Negative [facility] Work Phone: Laboratory - Chemistry and C hemistry - challengeon 01-27-2022 Glucose Ql (U) Negative [facility] Work Phone: Laboratory - Urinalysison Protein Ql (U) Negative [facility] Work Phone: Laboratory - Chemistry and C hemistry - challengeon 01-14-2022 Glucose Ql (U) Negative [facility] Work Phone: Laboratory - Urinalysison Protein Ql (U) Negative [facility] Work Phone: No Panel Informationon 01-14 Miscellaneous Test Comment MAILED SPECIMEN [facility] Work Phone: Absolute lymphocyte counton 01-07-2022 Lymphocytes Auto (Unsp spec) [#/Vol] 2.23 10*3/uL 0.83-4.51 [facility] Work Phone: Basophil percentageon 2021 Basophil percentage 0-5 SEEN /hpf [facility] Work Phone: Basophils/100 WBC (Bld) 0.3 % 0-1 [facility] Work Phone: Chloride [Moles/Vol] 109 mmol/L 98-107 [facility] Work Phone: Eosinophils/100 WBC (Bld) 1.0 % 0-5 [facility] Work Phone: Glucose [Mass/Vol] 86 mg/dL 74-106 [facility] Work Phone: Neutrophils (Bld) [#/Vol] 8.7 10*3/uL 2.0-7.7 [facility] Work Phone: Neutrophils/100 WBC (Bld) 73.4 % 47-70 [facility] Work Phone: Potassium [Moles/Vol] 4.1 mmol/L 3.5-5.1 [facility] Work Phone: Comment on above: Slight Hemolysis, Re sult may be falsely increased. Sodium [Moles/Vol] 135 mmol/L 136-145 [facility] Work Phone: WBC (Bld) [#/Vol] 11.9 10*3/uL 4.4-11.[address] [facility] Work Phone: Bilirubin Test strip Ql (U)o n 01-07-2022 Bilirubin Ql (U) Negative Negative [facility] Work Phone: Blood erythrocytes count (nu mber/volume)on 01-07-2022 RBC (Bld) [#/Vol] 4.22 10*6/uL 4.2-5.[address] [facility] Work Phone: Blood hemoglobin measurement (mass/volume)on 01-07-2022 Hemoglobin (Bld) [Mass/Vol] 12.8 g/dL 12.0-15.0 [facility] Work Phone: Blood lymphocytes/100 leukoc yteson 01-07-2022 Lymphocytes/100 WBC (Bld) 18.8 % 19-41 [facility] Work Phone: Blood monocytes/100 leukocyt eson 01-07-2022 Monocytes/100 WBC (Bld) 6.1 % 0-10 [facility] Work Phone: Blood platelet mean volumeon 01-07-2022 Platelet mean volume (Bld) [Entitic vol] 10.1 fL 6.2-12.0 [facility] Work Phone: Determination of erythrocyte mean corpuscular volume (MCV)on 01-07-2022 MCV (RBC) [Entitic vol] 88.9 fL 81-99 [facility] Work Phone: Hematocrit Auto (Bld) [Volum e fraction]on 01-07-2022 Hematocrit (Bld) [Volume fraction] 37.5 % 37-47 [facility] Work Phone: Ketones Test strip Ql (U)on 01-07-2022 Ketones Ql (U) Negative Negative [facility] Work Phone: Laboratory - Chemistry and C hemistry - challengeon 01-07-2022 CO2 [Moles/Vol] 21.0 mmol/L 21.0-32.0 [facility] Work Phone: Urea nitrogen/Creatinine [Mass ratio] 19.6 mg/mg 10-20 [facility] Work Phone: [phone] Laboratory - Hematology and Cell countson 01-07-2022 Erythrocyte distribution width (RBC) [Entitic vol] 42.8 fL 35.1-43.9 [facility] Work Phone: [phone] Erythrocyte distribution width (RBC) [Ratio] 13.1 % 11.6-14.6 [facility] Work Phone: [phone] Immature granulocytes/100 WBC (Bld) 0.400 % 0.0-0.9 [facility] Work Phone: [phone] Comment on above: IG% - Immature Granu locytes (promyelocytes, myelocytes and metamyelocytes) > 1% indicates that a LEFT SHIFT is Present. MCH (RBC) [Entitic mass] 30.3 pg 27.0-32.0 [facility] Work Phone: [phone] Nucleated RBC/100 WBC (Bld) [Ratio] 0 % 0-5 [facility] Work Phone: [phone] MCHC Auto (RBC) [Mass/Vol]on 01-07-2022 MCHC (RBC) [Mass/Vol] 34.1 g/dL 32-36 [facility] Work Phone: [phone] Mucus LM Ql (Urine sed)on Mucus Ql (Urine sed) 0 SEEN /hpf [facility] Work Phone: [phone] Nitrite Test strip Ql (U)on 01-07-2022 Nitrite Ql (U) Negative Negative [facility] Work Phone: [phone] No Panel Informationon 01-07 Estimated Creatinine Clearance Calc 128.57 ml/min [facility] Work Phone: [phone] Estimated GFR (MDRD) Amer 178 mL/min >60 [facility] Work Phone: [phone] Comment on above: GFR Calc Estimated GFR (MDRD) Non-Af Amer 147 mL/min >60 [facility] Work Phone: [phone] Comment on above: Non- GFR Calc Platelets bldon 01-07-2022 Platelets (Bld) [#/Vol] 263 10*3/uL 150-450 [facility] Work Phone: Protein Test strip Ql (U)on 01-07-2022 Protein Ql (U) Negative Negative [facility] Work Phone: [phone] Serum or plasma calcium jazmin urement (mass/volume)on 01-07-2022 Calcium [Mass/Vol] 9.2 mg/dL 8.5-10.1 [facility] Work Phone: Serum or plasma creatinine m easurement (mass/volume)on 01-07-2022 Creatinine [Mass/Vol] 0.51 mg/dL 0.55-1.02 [facility] Work Phone: Comment on above: The validity of the calculated GFR & GFRAA in patients over 70 years has not been determined. Clinical correlation is essential. Serum or plasma urea nitroge n measurement (mass/volume)on 01-07-2022 Urea nitrogen [Mass/Vol] 10 mg/dL 7-18 [facility] Work Phone: Squamous epithelial cells de tection in urine sediment by light microscopyon 01-07-2022 Epithelial cells.squamous LM Ql (Urine sed) 5-10 SEEN /hpf [facility] Work Phone: [phone] Thin prep Papanicolaou smear with manual screeningon 01-07-2022 Thin prep Papanicolaou smear with manual screening 5 5-15 [facility] Work Phone: Urine blood detectionon 04-0 RBC Ql (U) Negative Negative [facility] Work Phone: [phone] RBC Ql (U) 0 SEEN /hpf [facility] Work Phone: [phone] Urine clarityon 01-07-2022 Clarity (U) Sl. Cloudy Clear [facility] Work Phone: [phone] Urine color determinationon 01-07-2022 Color (U) Yellow Yellow [facility] Work Phone: Urine glucose detectionon Glucose Ql (U) Normal mg/dl Normal [facility] Work Phone: Urine leukocyte esterase det ection by dipstickon 01-07-2022 Leukocyte esterase Test strip Ql (U) Negative Negative [facility] Work Phone: Urine pHon 01-07-2022 pH (U) 8.0 [pH] [facility] Work Phone: Urine sediment bacteria coun t by microscopy (number/high power field)on 01-07-2022 Bacteria LM.HPF (Urine sed) [#/Area] 1 /[HPF] None Seen [facility] Work Phone: Urine specific gravity measu rementon 01-07-2022 Specific gravity (U) [Rel density] 1.010 [facility] Work Phone: Urobilinogen Auto test strip Ql (U)on 01-07-2022 Urobilinogen Ql (U) Normal mg/dl Normal [facility] Work Phone: Absolute lymphocyte counton 01-04-2022 Lymphocytes Auto (Unsp spec) [#/Vol] 1.44 10*3/uL 0.83-4.51 [facility] Work Phone: Basophil percentageon 2021 Basophil percentage 2.1 mg/dL 2.5-4.[address] [facility] Work Phone: Basophils/100 WBC (Bld) 0.3 % 0-1 [facility] Work Phone: Bilirubin [Mass/Vol] 0.20 mg/dL 0.20-1.00 [facility] Work Phone: Comment on above: For patients on eltr ombopag therapy, use of Dimension Brady TBIL is not recommended. Chloride [Moles/Vol] 106 mmol/L 98-107 [facility] Work Phone: Eosinophils/100 WBC (Bld) 0.6 % 0-5 [facility] Work Phone: Glucose [Mass/Vol] 185 mg/dL 74-106 [facility] Work Phone: Comment on above: Fasting Glucose resu lt greater than or equal to 126 mg/dL suggests DIABETES MELLITUS per A.D.A. criteria. Neutrophils (Bld) [#/Vol] 8.5 10*3/uL 2.0-7.7 [facility] Work Phone: Neutrophils/100 WBC (Bld) 81.1 % 47-70 [facility] Work Phone: [phone] Potassium [Moles/Vol] 3.3 mmol/L 3.5-5.1 [facility] Work Phone: [phone] Protein [Mass/Vol] 6.5 g/dL 6.4-8.2 [facility] Work Phone: [phone] Sodium [Moles/Vol] 135 mmol/L 136-145 [facility] Work Phone: [phone] WBC (Bld) [#/Vol] 10.5 10*3/uL 4.4-11.[address] [facility] Work Phone: Blood erythrocytes count (nu mber/volume)on 01-04-2022 RBC (Bld) [#/Vol] 3.79 10*6/uL 4.2-5.[address] [facility] Work Phone: Blood hemoglobin measurement (mass/volume)on 01-04-2022 Hemoglobin (Bld) [Mass/Vol] 11.3 g/dL 12.0-15.0 [facility] Work Phone: Blood lymphocytes/100 leukoc yteson 01-04-2022 Lymphocytes/100 WBC (Bld) 13.7 % 19-41 [facility] Work Phone: Blood monocytes/100 leukocyt eson 01-04-2022 Monocytes/100 WBC (Bld) 3.9 % 0-10 [facility] Work Phone: Blood platelet mean volumeon 01-04-2022 Platelet mean volume (Bld) [Entitic vol] 9.9 fL 6.2-12.0 [facility] Work Phone: Chlamydia trachomatis rRNA d etection by probe and target amplification methodon 01-04-2022 C. trachomatis rRNA FRANCESCO+probe Ql (Unsp spec) Negative Negative [facility] Work Phone: [phone] Culture, urineon 01-04-2022 Bacteria identified Cx Nom (U) Positive [facility] Work Phone: [phone] Determination of erythrocyte mean corpuscular volume (MCV)on 01-04-2022 MCV (RBC) [Entitic vol] 90.0 fL 81-99 [facility] Work Phone: [phone] HIV 1 and HIV-2 antibody ass ay with HIV-1 p24 antigen detectionon 01-04-2022 HIV 1+2 Ab+HIV1 p24 Ag IA Ql Non-Reactive Nonreactive [facility] Work Phone: Hematocrit Auto (Bld) [Volum e fraction]on 01-04-2022 Hematocrit (Bld) [Volume fraction] 34.1 % 37-47 [facility] Work Phone: Laboratory - Chemistry and C hemistry - challengeon 01-04-2022 ALP [Catalytic activity/Vol] 51 U/L 45-117 [facility] Work Phone: [phone] ALT [Catalytic activity/Vol] 44 U/L 13-56 [facility] Work Phone: [phone] CO2 [Moles/Vol] 22.0 mmol/L 21.0-32.0 [facility] Work Phone: [phone] Globulin (S) [Mass/Vol] 3.7 g/dL 2.2-4.2 [facility] Work Phone: [phone] Magnesium [Mass/Vol] 1.8 mg/dL 1.6-2.6 [facility] Work Phone: [phone] Urea nitrogen/Creatinine [Mass ratio] 19.4 mg/mg 10-20 [facility] Work Phone: [phone] Laboratory - Drug toxicology on 01-04-2022 [facility]amines [facility]l (U) [facility]: [phone] Benzodiazepines Ql (U) Negative [facility] Work Phone: Cannabinoids Screen Ql (U) Positive [facility] Work Phone: [phone] Cocaine Ql (U) Negative [facility] Work Phone: [phone] Opiates Ql (U) Negative [facility] Work Phone: [phone] Laboratory - Hematology and Cell countson 01-04-2022 Erythrocyte distribution width (RBC) [Entitic vol] 44.2 fL 35.1-43.9 [facility] Work Phone: [phone] Erythrocyte distribution width (RBC) [Ratio] 13.3 % 11.6-14.6 [facility] Work Phone: [phone] Immature granulocytes/100 WBC (Bld) 0.400 % 0.0-0.9 [facility] Work Phone: [phone] Comment on above: IG% - Immature Granu locytes (promyelocytes, myelocytes and metamyelocytes) > 1% indicates that a LEFT SHIFT is Present. MCH (RBC) [Entitic mass] 29.8 pg 27.0-32.0 [facility] Work Phone: [phone] Nucleated RBC/100 WBC (Bld) [Ratio] 0 % 0-5 [facility] Work Phone: [phone] Laboratory - Microbiology an d Antimicrobial susceptibilityon 01-04-2022 N. gonorrhoeae DNA FRANCESCO+probe Ql (Unsp spec) Negative Negative [facility] Work Phone: [phone] Comment on above: Performed at: =[facility] [address] [id number] Director: Jaylin Sandoval MD, Phone: [phone] MCHC Auto (RBC) [Mass/Vol]on 01-04-2022 MCHC (RBC) [Mass/Vol] 33.1 g/dL 32-36 [facility] Work Phone: [phone] Panel Informationon 01-04 MDMA (Ecstasy) Screen Negative [facility] Work Phone: [phone] Urine Barbiturates Screen Negative [facility] Work Phone: [phone] Urine Drug Screen Comment [facility] Work Phone: Comment on above: CONFIRMATORY TESTING FOR ALL POSITIVE URINE DRUG SCREENRESULTS WILL ONLY BE SENT OUT UPON PHYSICIAN ORDER. VISTA Urine Drug Screen methods provide only preliminaryanalytical test results. A more specific alternate chemicalmethod must be used in order to obtain a confirmedanalytical result. Gas chromatography/mass spectrometery(GC/MS) is the preferred confirmatory method. Clinicalconsideration and professional judgement should be appliedto any drug of abuse test result, particularly whenpreliminary positive results are used. URINE TCA TESTING MUST BE ORDERED SEPARATELY. USE TESTMNEMONIC: [facility] Urine Methadone Screen Negative [facility] Work Phone: [phone] Estimated Creatinine Clearance Calc 115.04 ml/min [facility] Work Phone: [phone] Estimated GFR (MDRD) Amer 157 mL/min >60 [facility] Work Phone: [phone] Comment on above: GFR Calc Estimated GFR (MDRD) Non-Af Amer 129 mL/min >60 [facility] Work Phone: [phone] Comment on above: Non- GFR Calc Hepatitis B Surface Antigen Non-Reactive Nonreactive [facility] Work Phone: [phone] Hepatitis C Antibody Non-Reactive Nonreactive [facility] Work Phone: [phone] Comment on above: Non Reactive: < 0.8 Equivocal: >/= 0.8 to < 1.0 Reactive: >/= 1.0The [facility] recommends that a reactive/equivocal HCV antibody result be followed up by the HCV Nucleic Acid Amplificationtest (384806) Rubella IgG Antibody Reactive Nonreactive [facility] Work Phone: [phone] Comment on above: Antibody Results Int erpretation of Immune Status Non Reactive Presumed Non-Immune Equivocal Equivocal Reactive Presumed Immune Platelets bldon 01-04-2022 Platelets (Bld) [#/Vol] 216 10*3/uL 150-450 [facility] Work Phone: [phone] Serum Treponema species anti body detectionon 01-04-2022 Treponema sp Ab Ql (S) Non-Reactive [facility] Work Phone: [phone] Serum or plasma albumin jazmin urement (mass/volume)on 01-04-2022 Albumin [Mass/Vol] 2.8 g/dL 3.2-5.0 [facility] Work Phone: Serum or plasma albumin/glob ulin mass ratioon 01-04-2022 Albumin/Globulin [Mass ratio] 0.8 {ratio} 0.9-2.4 [facility] Work Phone: Serum or plasma calcium jazmin urement (mass/volume)on 01-04-2022 Calcium [Mass/Vol] 8.8 mg/dL 8.5-10.1 [facility] Work Phone: Serum or plasma creatinine m easurement (mass/volume)on 01-04-2022 Creatinine [Mass/Vol] 0.57 mg/dL 0.55-1.02 [facility] Work Phone: Comment on above: The validity of the calculated GFR & GFRAA in patients over 70 years has not been determined. Clinical correlation is essential. Serum or plasma urea nitroge n measurement (mass/volume)on 01-04-2022 Urea nitrogen [Mass/Vol] 11 mg/dL 7-18 [facility] Work Phone: Thin prep Papanicolaou smear with manual screeningon 01-04-2022 Thin prep Papanicolaou smear with manual screening 22 U/L 15-37 [facility] Work Phone: Thin prep Papanicolaou smear with manual screening 7 5-15 [facility] Work Phone: Urine phencyclidine (PCP) de tectionon 01-04-2022 Phencyclidine Ql (U) Negative [facility] Work Phone: LABORATORYOrdered By: Emily Uribe on 12-20-2021 Appearance (U) Cloudy *ABN* (12/20/21 2:27 PM) Invalid Interpretation Code Clear AO Auto Urine SS Bacteria LM.HPF (Urine sed) [#/Area] 1 /[HPF] Invalid Interpretation Code AO Auto Urine SS Bilirubin Ql (U) Negative (12/20/21 2:27 PM) Invalid Interpretation Code Negative AO Auto Urine SS Color (U) Yellow (12/20/21 2:27 PM) Invalid Interpretation Code AO Auto Urine SS Crystals.amorphous LM.HPF (Urine sed) [#/Area] 4 /[HPF] Invalid Interpretation Code AO Auto Urine SS Glucose Test strip (U) [Mass/Vol] Negative Invalid Interpretation Code Negativemg/d L AO Auto Urine SS Hemoglobin Auto test strip (U) [Mass/Vol] Negative (12/20/21 2:27 PM) Invalid Interpretation Code Negative AO Auto Urine SS Ketones Ql (U) Negative Invalid Interpretation Code Negativemg/d L AO Auto Urine SS UA Leuk Est Negative (12/20/21 2:27 PM) Invalid Interpretation Code Negative AO Auto Urine SS UA Nitrite Negative (12/20/21 2:27 PM) Invalid Interpretation Code Negative AO Auto Urine SS UA pH 7.0 (12/20/21 2:27 PM) Invalid Interpretation Code 5.0 - 8.0 AO Auto Urine SS UA Protein Negative Invalid Interpretation Code Negativemg/d L AO Auto Urine SS UA RBC None Seen /HPF Invalid Interpretation Code None Seen/HPF AO Auto Urine SS UA Spec Grav 1.020 (12/20/21 2:27 PM) Invalid Interpretation Code 1.015-1.025 AO Auto Urine SS UA Specimen Type Clean Catch (12/20/21 2:27 PM) Invalid Interpretation Code AO Auto Urine SS UA Squam Epithelial LOADED /HPF Invalid Interpretation Code None Seen/HPF AO Auto Urine SS UA Urobilinogen 0.2 E.U./dL Invalid Interpretation Code 0.2-1.0E.U./ dL AO Auto Urine SS WBC LM.HPF (Urine sed) [#/Area] None Seen /HPF Invalid Interpretation Code None Seen/HPF AO Auto Urine SS Serum or plasma choriogonado tropin detectionon 12-11-2021 HCG ( test) Ql 2864 mIU/mL <4 [facility] Work Phone: Comment on above: hCG levels with Gest ational AgeGestational Age hCG mIU/mL (IU/L)0.2 - 1 week 5 - 501-2 weeks 50 - 5002-3 weeks 100 - 82642-6 weeks 500 - 564351-0 weeks 1000 - 256774-3 weeks 86445 - 100,0006-8 weeks 60827 - 200,0002-3 months 36388 - 100,000 Serum or plasma choriogonado tropin detectionon 12-07-2021 HCG ( test) Ql 447 mIU/mL <4 [facility] Work Phone: Comment on above: hCG levels with Gest ational AgeGestational Age hCG mIU/mL (IU/L)0.2 - 1 week 5 - 501-2 weeks 50 - 5002-3 weeks 100 - 18707-9 weeks 500 - 210749-7 weeks 1000 - 001448-4 weeks 48627 - 100,0006-8 weeks 83407 - 200,0002-3 months 98373 - 100,000 Serum or plasma choriogonado tropin detectionon 12-05-2021 HCG ( test) Ql 200 mIU/mL <4 [facility] Work Phone: Comment on above: hCG levels with Gest ational AgeGestational Age hCG mIU/mL (IU/L)0.2 - 1 week 5 - 501-2 weeks 50 - 5002-3 weeks 100 - 45504-0 weeks 500 - 763513-9 weeks 1000 - 527790-0 weeks 13663 - 100,0006-8 weeks 72542 - 200,0002-3 months 67281 - 100,000 Absolute lymphocyte counton 10-07-2021 Lymphocytes Auto (Unsp spec) [#/Vol] 2.84 10*3/uL 0.83-4.51 [facility] Work Phone: Basophil percentageon 2021 Basophils/100 WBC (Bld) 0.4 % 0-1 [facility] Work Phone: Chloride [Moles/Vol] 109 mmol/L 98-107 [facility] Work Phone: Eosinophils/100 WBC (Bld) 1.3 % 0-5 [facility] Work Phone: Glucose [Mass/Vol] 87 mg/dL 74-106 [facility] Work Phone: Comment on above: Please note revised GLUCOSE reference range effective 2017. Neutrophils (Bld) [#/Vol] 5.5 10*3/uL 2.0-7.7 [facility] Work Phone: Neutrophils/100 WBC (Bld) 60.2 % 47-70 [facility] Work Phone: Potassium [Moles/Vol] 3.8 mmol/L 3.5-5.1 [facility] Work Phone: [phone] Sodium [Moles/Vol] 140 mmol/L 136-145 [facility] Work Phone: [phone] WBC (Bld) [#/Vol] 9.1 10*3/uL 4.4-11.0 [facility] Work Phone: [phone] Blood erythrocytes count (nu mber/volume)on 10-07-2021 RBC (Bld) [#/Vol] 4.70 10*6/uL 4.2-5.[address] [facility] Work Phone: [phone] Blood hemoglobin measurement (mass/volume)on 10-07-2021 Hemoglobin (Bld) [Mass/Vol] 13.8 g/dL 12.0-15.0 [facility] Work Phone: [phone] Blood lymphocytes/100 leukoc yteson 10-07-2021 Lymphocytes/100 WBC (Bld) 31.3 % 19-41 [facility] Work Phone: [phone] Blood monocytes/100 leukocyt eson 10-07-2021 Monocytes/100 WBC (Bld) 6.5 % 0-10 [facility] Work Phone: Blood platelet mean volumeon 10-07-2021 Platelet mean volume (Bld) [Entitic vol] 10.3 fL 6.2-12.0 [facility] Work Phone: [phone] Determination of erythrocyte mean corpuscular volume (MCV)on 10-07-2021 MCV (RBC) [Entitic vol] 89.1 fL 81-99 [facility] Work Phone: [phone] Hematocrit Auto (Bld) [Volum e fraction]on 10-07-2021 Hematocrit (Bld) [Volume fraction] 41.9 % 37-47 [facility] Work Phone: Laboratory - Chemistry and C hemistry - challengeon 10-07-2021 CO2 [Moles/Vol] 24.0 mmol/L 21.0-32.0 [facility] Work Phone: [phone] Urea nitrogen/Creatinine [Mass ratio] 25.3 mg/mg 10-20 [facility] Work Phone: [phone] Laboratory - Hematology and Cell countson 10-07-2021 Erythrocyte distribution width (RBC) [Entitic vol] 43.4 fL 35.1-43.9 [facility] Work Phone: [phone] Erythrocyte distribution width (RBC) [Ratio] 13.2 % 11.6-14.6 [facility] Work Phone: [phone] Immature granulocytes/100 WBC (Bld) 0.300 % 0.0-0.9 [facility] Work Phone: [phone] Comment on above: IG% - Immature Granu locytes (promyelocytes, myelocytes and metamyelocytes) > 1% indicates that a LEFT SHIFT is Present. MCH (RBC) [Entitic mass] 29.4 pg 27.0-32.0 [facility] Work Phone: [phone] Nucleated RBC/100 WBC (Bld) [Ratio] 0 % 0-5 [facility] Work Phone: [phone] MCHC Auto (RBC) [Mass/Vol]on 10-07-2021 MCHC (RBC) [Mass/Vol] 32.9 g/dL 32-36 [facility] Work Phone: [phone] Panel Informationon 10-07 D-Dimer Quantitative (PE/DVT) 0.38 FEU/ug/m 0.27-0.49 [facility] Work Phone: [phone] Comment on above: NORMAL D-Dimer level (<0.50) indicates no DVT or PE. Estimated Creatinine Clearance Calc 105.07 ml/min [facility] Work Phone: [phone] Estimated GFR (MDRD) Amer 138 mL/min >60 [facility] Work Phone: [phone] Comment on above: GFR Calc Estimated GFR (MDRD) Non-Af Amer 114 mL/min >60 [facility] Work Phone: Comment on above: Non- GFR Calc Troponin I High Sensitivity 4 pg/mL 3.0-54.0 [facility] Work Phone: Comment on above: Please Note: New Faviola t Units and Gender Specific Reference Ranges. For more information see Policy Stat Procedure Brady High Sensitivity Troponin (TNIH) and attachments. Platelets bldon 10-07-2021 Platelets (Bld) [#/Vol] 306 10*3/uL 150-450 [facility] Work Phone: Serum or plasma calcium jazmin urement (mass/volume)on 10-07-2021 Calcium [Mass/Vol] 9.3 mg/dL 8.5-10.1 [facility] Work Phone: Serum or plasma creatinine m easurement (mass/volume)on 10-07-2021 Creatinine [Mass/Vol] 0.63 mg/dL 0.55-1.02 [facility] Work Phone: Comment on above: The validity of the calculated GFR & GFRAA in patients over 70 years has not been determined. Clinical correlation is essential. Serum or plasma urea nitroge n measurement (mass/volume)on 10-07-2021 Urea nitrogen [Mass/Vol] 16 mg/dL 7-18 [facility] Work Phone: Thin prep Papanicolaou smear with manual screeningon 10-07-2021 Thin prep Papanicolaou smear with manual screening 7 5-15 [facility] Work Phone: XR Lumbar spine 3 Viewson IMPRESSION: Degenerative changes as described. Electrical And Electronic Assembler: SAVITA Transcribe Date/Time: Jul 20 2021 10:04A Dictated by : YVONNE COLINDRES MD This examination was interpreted and the report reviewed and electronically signed by: YVONNE COLINDRES MD on Jul 20 2021 10:07AM [facility] [[email or web address]] DIVISION OF RADIOLOGY * * *Final Report* * * DATE OF EXAM: Jul 20 2021 9:07AM WOX 5228 - XR LUMBAR 3V AP/LAT/L5-S1 / PROCEDURE REASON: multiple diagnoses * * * * Physician Interpretation * * * * CLINICAL INDICATION: Pain TECHNIQUE: 3 view radiographic study of the lumbar spine COMPARISON: None FINDINGS: There are 5 nonrib-bearing lumbar vertebral bodies. There is a levocurvature of the lumbar spine with apex at L3. There is preservation of vertebral body height. There is mild disc space narrowing at T12/L1. There is mild Schmorl's nodes formation at L1/L2 and L2/L3 and L3/L4. There is mild disc space narrowing at L4/L5 and L5/S1 with mild Schmorl's nodes formation at L5/S1. There is minimal grade 1 retrolisthesis of L1 on L2, L2 on L3 and L4 on L5. DIVISION OF RADIOLOGY Provider, [facility] - 07/20/2021 * * *Final Report* * * DATE OF EXAM: Jul 20 2021 9:07AM WOX 5228 - XR LUMBAR 3V AP/LAT/L5-S1 / PROCEDURE REASON: multiple diagnoses * * * * Physician Interpretation * * * * CLINICAL INDICATION: Pain TECHNIQUE: 3 view radiographic study of the lumbar spine COMPARISON: None FINDINGS: There are 5 nonrib-bearing lumbar vertebral bodies. There is a levocurvature of the lumbar spine with apex at L3. There is preservation of vertebral body height. There is mild disc space narrowing at T12/L1. There is mild Schmorl's nodes formation at L1/L2 and L2/L3 and L3/L4. There is mild disc space narrowing at L4/L5 and L5/S1 with mild Schmorl's nodes formation at L5/S1. There is minimal grade 1 retrolisthesis of L1 on L2, L2 on L3 and L4 on L5. IMPRESSION IMPRESSION: Degenerative changes as described. Electrical And Electronic Assembler: PSCB Transcribe Date/Time: Jul 20 2021 10:04A Dictated by : YVONNE COLINDRES MD This examination was interpreted and the report reviewed and electronically signed by: YVONNE COLINDRES MD on Jul 20 2021 10:07AM EST [facility] Radiology Study observation (narrative) [facility] XR Lumbar spine 3 ViewsOrder ed By: [facility] Provider on 07-20-2021 [facility] Troponin Ion 07-11-2021 Troponin I.cardiac [Mass/Vol] 0.012 ng/mL Normal 0.000-0.034 [facility] Comment on above: Order Comment: CHEMI STRY SPECIMEN MODERATELY HEMOLYZED. INTERPRET RESULTS WITH CAUTION. Result Comment: . Performed By: #### H EMOG, TROPN, LIPA4, CMP3, QWAL2 #### [facility] [employer] [facility] [address] [place] [address] hCG Qual Pregon 07-11-2021 hCG Qual Preg Negative Normal [facility] Comment on above: Order Comment: CHEMI STRY SPECIMEN MODERATELY HEMOLYZED. INTERPRET RESULTS WITH CAUTION. Result Comment: Refe rence Range: NEGATIVE Effective 12/14/2019, the reference interval for the qualitative test has been updated. This test detects hCG at concentrations of 10 mIU/L or greater in serum. Performed By: #### H EMOG, TROPN, LIPA4, CMP3, QWAL2 #### [facility] [employer] [facility] [address] [place] [address] CBCOrdered By: Nicolás maloney on 07-10-2021 Hematocrit (Bld) [Volume fraction] 39.8 % 35.0 - 47.0 % [facility] Work Phone: Hemoglobin.gastrointes tinal spec 1 Ql (Stl) 13.1 g/dL 11.7 - 16.0 g/dL [facility] Work Phone: MCH (RBC) [Entitic mass] 29.9 pg 26.0 - 34.0 pg [facility] Work Phone: [phone] MCHC (RBC) [Mass/Vol] 33.0 % 32.0 - 36.0 % [facility] Work Phone: [phone] MCV (RBC) [Entitic vol] 90.8 fL 79.0 - 98.0 fL [facility] Work Phone: [phone] Platelet distribution width (Bld) [Ratio] 13.7 % 11.5 - 14.5 % [facility] Phone: [phone] Platelet mean volume (Bld) [Entitic vol] 8.6 fL 7.4 - 10.4 fL [facility] Work Phone: [phone] Platelets (Bld) [#/Vol] 220 10*3/uL 140 - 440 10*3/uL [facility] Work Phone: RBC (Bld) [#/Vol] 4.38 10*6/uL 3.80 - 5.2 0 10*6/uL [facility] Work Phone: WBC (Bld) [#/Vol] 8.2 10*3/uL 3.6 - 10.7 10*3/uL [facility] Work Phone: Comp Metabolic Panelon 07-10 ALT [Catalytic activity/Vol] 31 U/L Normal 0-34 [facility] Comment on above: Order Comment: CHEMI STRY SPECIMEN MODERATELY HEMOLYZED. INTERPRET RESULTS WITH CAUTION. Result Comment: The ALT test is performed by an updated assay method. Please note that the reference intervals have been changed and are now sex specific. Performed By: #### H EMOG, TROPN, LIPA4, CMP3, QWAL2 #### [facility] [address] [place] [address] Calcium [Mass/Vol] 9.2 mg/dL Normal 8.4-10.4 [facility] Comment on above: Order Comment: CHEMI STRY SPECIMEN MODERATELY HEMOLYZED. INTERPRET RESULTS WITH CAUTION. Performed By: #### H EMOG, TROPN, LIPA4, CMP3, QWAL2 #### [facility] [address] [place] [address] Glucose [Mass/Vol] 79 mg/dL Normal 70-100 [facility] Comment on above: Order Comment: CHEMI STRY SPECIMEN MODERATELY HEMOLYZED. INTERPRET RESULTS WITH CAUTION. Performed By: #### H EMOG, TROPN, LIPA4, CMP3, QWAL2 #### [facility] [employer] [facility] [address] [place] [address] Urea nitrogen [Mass/Vol] 13 mg/dL Normal 9-20 [facility] Comment on above: Order Comment: CHEMI STRY SPECIMEN MODERATELY HEMOLYZED. INTERPRET RESULTS WITH CAUTION. Performed By: #### H EMOG, TROPN, LIPA4, CMP3, QWAL2 #### [facility] [employer] [facility] [address] [place] [address] ALP [Catalytic activity/Vol] 44 U/L Normal 38-126 [facility] Comment on above: Order Comment: CHEMI STRY SPECIMEN MODERATELY HEMOLYZED. INTERPRET RESULTS WITH CAUTION. Performed By: #### H EMOG, TROPN, LIPA4, CMP3, QWAL2 #### [facility] [address] [place] [address] Anion gap [Moles/Vol] 5 mmol/L Normal 3-13 [facility] Comment on above: Order Comment: CHEMI STRY SPECIMEN MODERATELY HEMOLYZED. INTERPRET RESULTS WITH CAUTION. Performed By: #### H EMOG, TROPN, LIPA4, CMP3, QWAL2 #### [facility] [address] [place] [address] AST [Catalytic activity/Vol] 40 U/L Normal 15-46 [facility] Comment on above: Order Comment: CHEMI STRY SPECIMEN MODERATELY HEMOLYZED. INTERPRET RESULTS WITH CAUTION. Performed By: #### H EMOG, TROPN, LIPA4, CMP3, QWAL2 #### [facility] [address] [place] [address] Bilirubin [Mass/Vol] 0.6 mg/dL Normal 0.2-1.3 [facility] Comment on above: Order Comment: CHEMI STRY SPECIMEN MODERATELY HEMOLYZED. INTERPRET RESULTS WITH CAUTION. Performed By: #### H EMOG, TROPN, LIPA4, CMP3, QWAL2 #### [facility] [address] [place] [address] CO2 [Moles/Vol] 24 mmol/L Normal 22-30 [facility] Comment on above: Order Comment: CHEMI STRY SPECIMEN MODERATELY HEMOLYZED. INTERPRET RESULTS WITH CAUTION. Performed By: #### H EMOG, TROPN, LIPA4, CMP3, QWAL2 #### [facility] [address] [place] [address] Creatinine [Mass/Vol] 0.53 mg/dL Normal 0.52-1.25 [facility] Comment on above: Order Comment: CHEMI STRY SPECIMEN MODERATELY HEMOLYZED. INTERPRET RESULTS WITH CAUTION. Performed By: #### H EMOG, TROPN, LIPA4, CMP3, QWAL2 #### [facility] [address] [place] [address] eGFR OTHER > 90.0 Normal >60 [facility] Comment on above: Order Comment: CHEMI STRY SPECIMEN MODERATELY HEMOLYZED. INTERPRET RESULTS WITH CAUTION. Result Comment: KDIG O guidelines provide the following GFR categories: Stage GFR(ml/min/1.73 m2) Terms G1 >=90 Normal or high G2 60-89 Mildly decreased* G3a 45-59 Mildly to moderately decreased G3b 30-44 Moderately to severely decreased G4 15-29 Severely decreased G5 <15 Kidney failure *Relative to young adult level. In the absence of evidence of kidney damage, neither GFR category G1 nor G2 fulfill the criteria for CKD. The CKD-EPI equation is validated in individuals 18 years of age and older. Currently the best equation for estimating glomerular filtration rate (GFR) from serum creatinine in children is the Bedside Calvo equation. It is less accurate in patients with extremes of muscle mass, restriction of dietary protein, ingestion of creatine, extra-renal metabolism of creatinine, or treatment with medications that affect renal tubular creatinine secretion. Performed By: #### H EMOG, TROPN, LIPA4, CMP3, QWAL2 #### [facility] [address] [place] [address] GFR/1.73 sq M.predicted among blacks MDRD (S/P/Bld) [Vol rate/Area] mL/min/{1.73_m2} Normal >60 [facility] Comment on above: Order Comment: CHEMI STRY SPECIMEN MODERATELY HEMOLYZED. INTERPRET RESULTS WITH CAUTION. Performed By: #### H EMOG, TROPN, LIPA4, CMP3, QWAL2 #### [facility] [address] [place] [address] Protein [Mass/Vol] 7.4 g/dL Normal 6.3-8.2 [facility] Comment on above: Order Comment: CHEMI STRY SPECIMEN MODERATELY HEMOLYZED. INTERPRET RESULTS WITH CAUTION. Performed By: #### H EMOG, TROPN, LIPA4, CMP3, QWAL2 #### [facility] [address] [place] [address] Chloride [Moles/Vol] 108 mmol/L High 98-107 [facility] Comment on above: Order Comment: CHEMI STRY SPECIMEN MODERATELY HEMOLYZED. INTERPRET RESULTS WITH CAUTION. Performed By: #### H EMOG, TROPN, LIPA4, CMP3, QWAL2 #### [facility] [address] [place] [address] Potassium [Moles/Vol] 4.4 mmol/L Normal 3.5-5.1 [facility] Comment on above: Order Comment: CHEMI STRY SPECIMEN MODERATELY HEMOLYZED. INTERPRET RESULTS WITH CAUTION. Performed By: #### H EMOG, TROPN, LIPA4, CMP3, QWAL2 #### [facility] [address] [place] [address] Sodium [Moles/Vol] 137 mmol/L Normal 135-145 [facility] Comment on above: Order Comment: CHEMI STRY SPECIMEN MODERATELY HEMOLYZED. INTERPRET RESULTS WITH CAUTION. Performed By: #### H EMOG, TROPN, LIPA4, CMP3, QWAL2 #### [facility] [address] [place] [address] Albumin [Mass/Vol] 4.1 g/dL Normal 3.5-5.0 [facility] Comment on above: Order Comment: CHEMI STRY SPECIMEN MODERATELY HEMOLYZED. INTERPRET RESULTS WITH CAUTION. Performed By: #### H EMOG, TROPN, LIPA4, CMP3, QWAL2 #### [facility] [address] [place] [address] Complete Urinalysison 2020 Appearance (U) Clear Normal Clear [facility] Comment on above: Result Comment: . Performed By: #### C UA2 #### [facility] [address] [place] [address] Bilirubin,Urine Negative Normal Negative [facility] Comment on above: Result Comment: . Performed By: #### C UA2 #### [facility] [address] [place] [address] Color (U) Light-Yellow Normal Lt. Yellow [facility] Comment on above: Result Comment: . Performed By: #### C UA2 #### [facility] [address] [place] [address] Glucose Ql (U) Normal Normal Normal (<70) [facility] Comment on above: Result Comment: . Performed By: #### C UA2 #### [facility] [address] [place] [address] Ketone,Urine Negative Normal Negative [facility] Comment on above: Result Comment: . Performed By: #### C UA2 #### [facility] [address] [place] [address] Leukocytes,Urine Negative Normal Negative [facility] Comment on above: Result Comment: . Performed By: #### C UA2 #### [facility] [address] [place] [address] Nitrites,Urine Negative Normal Negative [facility] Comment on above: Result Comment: . Performed By: #### C UA2 #### [facility] [address] [place] [address] Occult Blood,Urine Negative Normal Negative [facility] Comment on above: Result Comment: . Performed By: #### C UA2 #### [facility] [address] [place] [address] pH,Urine 6.0 Normal 5.0-8.0 [facility] Comment on above: Result Comment: . Performed By: #### C UA2 #### [facility] [address] [place] [address] Specific [place],Urine > 1.030 Abnormal 1.005 - 1.030 [facility] Comment on above: Result Comment: . Performed By: #### C UA2 #### [facility] [address] [place] [address] Total Protein,Urine Negative Normal Negative [facility] Comment on above: Result Comment: . Performed By: #### C UA2 #### [facility] [address] [place] [address] Urobilinogen,Urine Normal Normal Normal (0-1) [facility] Comment on above: Result Comment: . Performed By: #### C UA2 #### [facility] [address] [place] [address] Comprehensive Metabolic Pane lOrdered By: Nicolás Calderón on 07-10-2021 Albumin [Mass/Vol] 4.1 g/dL 3.5 - 5.0 g/dL [facility] Work Phone: ALP (Bld) [Catalytic activity/Vol] 44 U/L 38 - 126 U/L [facility] Work Phone: [phone] ALT [Catalytic activity/Vol] 31 U/L 0 - 34 U/L [facility] Work Phone: [phone] Comment on above: The ALT test is perf ormed by an updated assay method. Please note that the reference intervals have been changed and are now sex specific. Anion gap [Moles/Vol] 5 mmol/L 3 - 13 mmol/L [facility] Work Phone: [phone] AST [Catalytic activity/Vol] 40 U/L 15 - 46 U/L [facility] Work Phone: [phone] Bilirubin [Mass/Vol] 0.6 mg/dL 0.2 - 1 .3 mg/dL [facility] Work Phone: [phone] Calcium [Mass/Vol] 9.2 mg/dL 8.4 - 10. 4 mg/dL [facility] Work Phone: [phone] Chloride [Moles/Vol] 108 mmol/L High 98 - 10 7 mmol/L [facility] Work Phone: [phone] CO2 [Moles/Vol] 24 mmol/L 22 - 30 mmol/L [facility] Work Phone: [phone] Creatinine [Mass/Vol] 0.53 mg/dL 0.52 - 1.25 mg/dL [facility] Work Phone: [phone] EGFR IF NonAfrican Bahamian >90.0 >60 mL/min [facility] Work Phone: Comment on above: KDIGO guidelines pro vide the following GFR categories: Stage GFR(ml/min/1.73 m2) Terms G1 >=90 Normal or high G2 60-89 Mildly decreased* G3a 45-59 Mildly to moderately decreased G3b 30-44 Moderately to severely decreased G4 15-29 Severely decreased G5 <15 Kidney failure *Relative to young adult level. In the absence of evidence of kidney damage, neither GFR category G1 nor G2 fulfill the criteria for CKD. The CKD-EPI equation is validated in individuals 18 years of age and older. Currently the best equation for estimating glomerular filtration rate (GFR) from serum creatinine in children is the Bedside Calvo equation. It is less accurate in patients with extremes of muscle mass, restriction of dietary protein, ingestion of creatine, extra-renal metabolism of creatinine, or treatment with medications that affect renal tubular creatinine secretion. Free PSA/Total PSA [Mass fraction] 7.4 g/dL 6.3 - 8.2 g/dL [facility] Work Phone: GFR/1.73 sq M.predicted among blacks MDRD (S/P/Bld) [Vol rate/Area] mL/min/{1.73_m2} >60 mL/min [facility] Work Phone: Glucose [Mass/Vol] 79 mg/dL 70 - 100 mg/dL [facility] Work Phone: Interpretation and review of laboratory results Abnormal [facility] Work Phone: Potassium [Moles/Vol] 4.4 mmol/L 3.5 - 5.1 mmol/L [facility] Work Phone: Sodium [Moles/Vol] 137 mmol/L 135 - 145 mmol/L [facility] Work Phone: Urea nitrogen (BldV) [Mass/Vol] 13 mg/dL 9 - 20 mg/dL [facility] Work Phone: ED Provider Noteon ED Provider Note Emergency Department Encounter [facility] ED Patient: Lillian Fiore : 1985 Date of Evaluation: 07/10/2021 ED Provider: Nicolás Calderón MD Note: I wore a N95 mask and gloves during this encounter CHIEF COMPLAINT: Abdominal pain Chief Complaint Patient presents with ? Abdominal Pain c/o nausea/ abd pain that radiates to back. states pain is RUQ pain and states she thinks it is her gallbladder. also c/o pelvic pain and inner thigh pain x few days. HPI: Lillian Fiore is a 35 y.o. female with PMH including hyperlipidemia, opioid dependence in remission, reports history of pelvic pain related to ovarian cysts, presents with concern for abdominal pain. Patient reports intermittent abdominal pain for the last year, she reports an episode of pain beginning at 1:00 PM today including sharp stabbing pain as well as burning in the epigastric region, she endorses nausea, denies vomiting, denies cough, chest pain, shortness of breath, fever or chills, dysuria, hematuria, or frequency, vaginal bleeding or discharge. Patient reports symptoms have been constant since onset, she reports she went to outside hospital [place] emergency department, there a CT abdomen pelvis was obtained, she reports no acute findings, laboratory evaluation was reportedly unremarkable, patient reports she was told she needed an ultrasound of her gallbladder, however this was not available at that facility at this time, she presents seeking an ultrasound of her gallbladder. Patient reports ongoing symptoms, severe, reports she was treated with morphine, Toradol, Phenergan at outside hospital with temporary alleviation of symptoms. Patient also endorses pain across her pelvis, and tingling in her thighs bilaterally, she denies concern for sexually transmitted disease, she reports history of PCOS, and reports she had a recent pelvic ultrasound several days ago demonstrating multiple cysts. REVIEW OF SYSTEMS: 10 systems reviewed and otherwise acutely negative except as per HPI. HISTORIES: PAST MEDICAL HISTORY: as per HPI SOCIAL HISTORY: MEDICATIONS: Nursing notes and EMR reviewed ALLERGIES: Nursing notes and EMR reviewed PHYSICAL EXAM: ED Triage Vitals [07/10/211928] BP Temp Temp Source Pulse Resp SpO2 Height Weight (!) 104/52 98.1 ?F (36.7 ?C) Tympanic 78 18 100 % 5' 3 (1.6 m) 145 lb (65.8 kg) Vital signs: reviewed, as documented General: Appears uncomfortable, nontoxic Eyes: no conjunctival injection, eyes tracking HEENT: airway patent, mucous membranes moist Cardiovascular: regular rhythm, normal rate Respiratory: non-labored breathing, breath sounds clear, no wheezing crackles or rhonchi Gastrointestinal: soft, non-distended, tenderness to deep palpation in the epigastric region with no rigidity running or guarding, abdomen otherwise nontender Extremities: no obvious deformity, non edematous Integumentary: warm, dry Neurologic: alert, no obvious neurologic deficits Medications ondansetron (ZOFRAN) injection 4 mg (4 mg IntraVENous Given 07/10/212216) 0.9 % sodium chloride bolus (0 mLs IntraVENous Stopped 07/11/218) morphine injection 4 mg (4 mg IntraVENous Given 07/10/212252) EKG per my interpretation: Rate and rhythm: [sinus rhythm], 54 bpm [place]: [within normal range] Intervals: [within normal range] Segments: [no acute ischemic ST segment changes] Impression: [sinus rhythm, no acute ischemic changes] MEDICAL DECISION MAKING: Lillian Fiore is a 35 y.o. female who presents as above, with epigastric abdominal pain, reports she was evaluated outside emergency department, there labs and CT imaging of the abdomen pelvis was unremarkable, was told she needed an ultrasound not available at that facility, presents seeking abdominal ultrasound, with ongoing epigastric abdominal pain, also with pain across her low abdomen and tingling in her thighs, she attributes this to chronic pain related to ovarian cysts, denies urinary symptoms, denies vaginal pain or discharge, discussed with patient, she declines pelvic exam, agreeable with obtaining pelvic ultrasound, suspect symptoms related to known ovarian cyst. Presentation concerning for pancreatitis, acute biliary process, gastritis, lesser suspicion for alternative acute intra-abdominal process. Will obtain right upper quadrant ultrasound, repeat laboratory evaluation and urinalysis. I discussed symptom treatment options, patient elects to be treated with morphine,additionally which are Zofran. Per EMR review, CT abdomen pelvis at outside hospital 07/10/2021 interpreted radiologist no acute findings in the abdomen or pelvis, no mass ascites or fluid collection, prominent ovaries better evaluated on ultrasound, no bile duct dilation, gallbladder unremarkable, no mass or duct dilation of the pancreas Labs obtained, reviewed, notable for no significant electrolyte disturbances, no renal dysfunction, hCG (more content not included)... Normal [facility] HCG Qualitative, SerumOrdere d By: Nicolás Calderón on 07-10-2021 hCG Qual Negative [facility] Work Phone: Comment on above: Reference Range: NEG ATIVE Effective 12/14/2019, the reference interval for the qualitative test has been updated. This test detects hCG at concentrations of 10 mIU/L or greater in serum. Test Performed by [facility], [address] [place], [place] [address] CHEMISTRY SPECIMEN MODERATELY HEMOLYZED. INTERPRET RESULTS WITH CAUTION. [facility] Work Phone: [facility] Work Phone: Hemogramon 07-10-2021 Erythrocyte distribution width (RBC) [Ratio] 13.7 % Normal 11.5-14.5 [facility] Comment on above: Performed By: #### H EMOG, TROPN, LIPA4, CMP3, QWAL2 #### [facility] [address] [place] [address] Hematocrit (Bld) [Volume fraction] 39.8 % Normal 35.0-47.0 [facility] Comment on above: Performed By: #### H EMOG, TROPN, LIPA4, CMP3, QWAL2 #### [facility] [address] [place] [address] Hemoglobin (Bld) [Mass/Vol] 13.1 g/dL Normal 11.7-16.0 [facility] Comment on above: Performed By: #### H EMOG, TROPN, LIPA4, CMP3, QWAL2 #### [facility] [address] [place] [address] MCH (RBC) [Entitic mass] 29.9 pg Normal 26.0-34.0 [facility] Comment on above: Performed By: #### H EMOG, TROPN, LIPA4, CMP3, QWAL2 #### [facility] [address] [place] [address] MCHC 33.0 % Normal 32.0-36.0 [facility] Comment on above: Performed By: #### H EMOG, TROPN, LIPA4, CMP3, QWAL2 #### [facility] [address] [place] [address] MCV (RBC) [Entitic vol] 90.8 fL Normal 79.0-98.0 [facility] Comment on above: Performed By: #### H EMOG, TROPN, LIPA4, CMP3, QWAL2 #### [facility] [address] [place] [address] Platelet mean volume (Bld) [Entitic vol] 8.6 fL Normal 7.4-10.4 [facility] Comment on above: Performed By: #### H EMOG, TROPN, LIPA4, CMP3, QWAL2 #### [facility] [address] [place] [address] Platelets (Bld) [#/Vol] 220 10*3/uL Normal 140-440 [facility] Comment on above: Performed By: #### H EMOG, TROPN, LIPA4, CMP3, QWAL2 #### [facility] [address] [place] [address] RBC (Bld) [#/Vol] 4.38 10*6/uL Normal 3.80-5.20 [facility] Comment on above: Performed By: #### H EMOG, TROPN, LIPA4, CMP3, QWAL2 #### [facility] [address] [place] [address] WBC (Bld) [#/Vol] 8.2 10*3/uL Normal 3.6-10.7 [facility] Comment on above: Performed By: #### H EMOG, TROPN, LIPA4, CMP3, QWAL2 #### [facility] [address] [place] [address] Lipaseon 07-10-2021 Lipase [Catalytic activity/Vol] 234 U/L Normal 23-300 [facility] Comment on above: Order Comment: CHEMI STRY SPECIMEN MODERATELY HEMOLYZED. INTERPRET RESULTS WITH CAUTION. Performed By: #### H EMOG, TROPN, LIPA4, CMP3, QWAL2 #### [facility] [address] [place] [address] LipaseOrdered By: Nicolás jimenez on 07-10-2021 Lipase [Catalytic activity/Vol] 234 U/L 23 - 300 U/L [facility] Work Phone: [phone] Panel InformationOrdered By: Nicolás Calderón on 07-10-2021 Test Performed by [facility], [address] [place], [place] [address] CHEMISTRY SPECIMEN MODERATELY HEMOLYZED. INTERPRET RESULTS WITH CAUTION. [facility] Work Phone: [phone] [facility] Work Phone: [phone] Test Performed by [facility], [address] [place] [address] [facility] Work Phone: [phone] [facility] Work Phone: [phone] TroponinOrdered By: Nicolás Calderón on 07-10-2021 Troponin I.cardiac [Mass/Vol] 0.012 ng/mL 0.000 - 0.034 ng/mL [facility] Work Phone: [phone] Comment on above: . Test Performed by [facility], [address], [place], [place] [address] CHEMISTRY SPECIMEN MODERATELY HEMOLYZED. INTERPRET RESULTS WITH CAUTION. [facility] Work Phone: [facility] Work Phone: US ABDOMEN LIMITED Specify o rgan? LIVER, GALLBLADDER, PANCREASOrdered By: Nicolás Calderón on 07-10-2021 Patient Name: LILLIAN FIORE Ultrasound ACCESSION EXAM DATE/TIME PROCEDURE ORDERING PROVIDER [id number] 07/10/2021 21:49 EDT US Abdomen Limited [facility] CPT code 23687 Reason For Exam (US Abdomen Limited) epigastric abdominal pain Report ULTRASOUND OF RIGHT UPPER QUADRANT CLINICAL INDICATION: epigastric abdominal pain TECHNIQUE: Real-time ultrasound of the right upper quadrant of the abdomen. COMPARISON: None. FINDINGS: Gallbladder without evidence of calculi. Wall thickness within normal limits. Intra-and extrahepatic bile ducts are of normal caliber. Negative sonographic Rust's sign. Liver has homogeneous echogenicity without focal abnormalities. Right kidney measures 10.7 cm in longest dimension and is grossly unremarkable. Limited visualized pancreatic parenchyma grossly unremarkable. IMPRESSION: 1. No acute findings. Report Dictated on Workstation: [facility] --- Final --- Dictating Physician: MD BREWER WENDELL Signed Date and Time: 07/10/2021 10:47 pm Signed by: MD BREWER WENDELL Transcribed Date and Time: 07/10/2021 10:48 [facility] Work Phone: [facility] From [facility] - 07/10/2021 10:48 PM EDT Patient Name: LILLIAN FIORE Ultrasound ACCESSION EXAM DATE/TIME PROCEDURE ORDERING PROVIDER [id number] 07/10/2021 21:49 EDT US Abdomen Limited [facility] CPT code 67932 Reason For Exam (US Abdomen Limited) epigastric abdominal pain Report ULTRASOUND OF RIGHT UPPER QUADRANT CLINICAL INDICATION: epigastric abdominal pain TECHNIQUE: Real-time ultrasound of the right upper quadrant of the abdomen. COMPARISON: None. FINDINGS: Gallbladder without evidence of calculi. Wall thickness within normal limits. Intra-and extrahepatic bile ducts are of normal caliber. Negative sonographic Rust's sign. Liver has homogeneous echogenicity without focal abnormalities. Right kidney measures 10.7 cm in longest dimension and is grossly unremarkable. Limited visualized pancreatic parenchyma grossly unremarkable. IMPRESSION: 1. No acute findings. Report Dictated on Workstation: AMARI --- Final --- Dictating Physician: MD BREWER WENDELL Signed Date and Time: 07/10/2021 10:47 pm Signed by: MD BREWER WENDELL Transcribed Date and Time: 07/10/2021 10:48 [facility] Work Phone: [facility] Work Phone: US Abdomen Limitedon US Abdomen Limited Patient Name: LILLIAN FIORE Ultrasound ACCESSION EXAM DATE/TIME PROCEDURE ORDERING PROVIDER [id number] 07/10/2021 21:49 EDT US Abdomen Limited [facility] CPT code 65717 Reason For Exam (US Abdomen Limited) epigastric abdominal pain Report ULTRASOUND OF RIGHT UPPER QUADRANT CLINICAL INDICATION: epigastric abdominal pain TECHNIQUE: Real-time ultrasound of the right upper quadrant of the abdomen. COMPARISON: None. FINDINGS: Gallbladder without evidence of calculi. Wall thickness within normal limits. Intra-and extrahepatic bile ducts are of normal caliber. Negative sonographic Rust's sign. Liver has homogeneous echogenicity without focal abnormalities. Right kidney measures 10.7 cm in longest dimension and is grossly unremarkable. Limited visualized pancreatic parenchyma grossly unremarkable. IMPRESSION: 1. No acute findings. Report Dictated on Workstation: [facility]I Final Dictating Physician: MD BREWER WENDELL Signed Date and Time: 07/10/2021 10:47 pm Signed by: MD BREWER WENDELL Transcribed Date and Time: 07/10/2021 10:48 Normal [facility] US NON OB TRANSVAGINALOrdere d By: Nicolás Calderón on 07-10-2021 Patient Name: LILLIAN FIORE Ultrasound ACCESSION EXAM DATE/TIME PROCEDURE ORDERING PROVIDER [id number] 07/10/2021 22:15 EDT US Transvaginal [id number] HAZEL CPT code 18650 Reason For Exam (US Transvaginal) pelvic pain, history of ovarian cysts Report ULTRASOUND OF PELVIS, TRANSVAGINAL CLINICAL INDICATION: pelvic pain, history of ovarian cysts TECHNIQUE: Real-time, transvaginal sonography of the pelvis. Doppler and spectral waveform analysis of the ovaries, if they were visualized. COMPARISON: March,. FINDINGS: The uterus measures 11.1 x 4.1 x 6.6 cm, has an arcuate configuration and appears grossly unremarkable. The endometrial stripe is within normal limits and measures 5 mm in AP dimension. The right ovary measures 2.7 x 4.5 x 3.2 cm and contains multiple, subcentimeter follicles. The left ovary measures 2.6 x 5.3 x 2.6 cm and contains multiple follicles, including probable dominant follicle measuring up to 1.4 cm. Duplex Doppler shows appropriate blood flow in the bilateral ovaries. No adnexal masses or significant free peritoneal fluid. IMPRESSION: 1. Arcuate uterus. 2. Follicular change in the bilateral ovaries. 3. No other acute findings. Report Dictated on Workstation: AMARI --- Final --- Dictating Physician: MD BREWER WENDELL Signed Date and Time: 07/10/2021 10:45 pm Signed by: MD BREWER WENDELL Transcribed Date and Time: 07/10/2021 10:46 [facility] Work Phone: [facility], [facility] Incoming Radiology Results From [facility] - 07/10/2021 10:46 PM EDT Patient Name: LILLIAN FIORE Ultrasound ACCESSION EXAM DATE/TIME PROCEDURE ORDERING PROVIDER [id number] 07/10/2021 22:15 EDT US Transvaginal [facility] CPT code 62357 Reason For Exam (US Transvaginal) pelvic pain, history of ovarian cysts Report ULTRASOUND OF PELVIS, TRANSVAGINAL CLINICAL INDICATION: pelvic pain, history of ovarian cysts TECHNIQUE: Real-time, transvaginal sonography of the pelvis. Doppler and spectral waveform analysis of the ovaries, if they were visualized. COMPARISON: March,. FINDINGS: The uterus measures 11.1 x 4.1 x 6.6 cm, has an arcuate configuration and appears grossly unremarkable. The endometrial stripe is within normal limits and measures 5 mm in AP dimension. The right ovary measures 2.7 x 4.5 x 3.2 cm and contains multiple, subcentimeter follicles. The left ovary measures 2.6 x 5.3 x 2.6 cm and contains multiple follicles, including probable dominant follicle measuring up to 1.4 cm. Duplex Doppler shows appropriate blood flow in the bilateral ovaries. No adnexal masses or significant free peritoneal fluid. IMPRESSION: 1. Arcuate uterus. 2. Follicular change in the bilateral ovaries. 3. No other acute findings. Report Dictated on Workstation: AMARI --- Final --- Dictating Physician: MD BREWER WENDELL Signed Date and Time: 07/10/2021 10:45 pm Signed by: MD BREWER WENDELL Transcribed Date and Time: 07/10/2021 10:46 [facility] Work Phone: [facility] Work Phone: US Transvaginalon 07-10-2021 US Transvaginal Patient Name: LILLIAN FIORE Ultrasound ACCESSION EXAM DATE/TIME PROCEDURE ORDERING PROVIDER [id number] 07/10/2021 22:15 EDT US Transvaginal [id number] HAZEL CPT code 22984 Reason For Exam (US Transvaginal) pelvic pain, history of ovarian cysts Report ULTRASOUND OF PELVIS, TRANSVAGINAL CLINICAL INDICATION: pelvic pain, history of ovarian cysts TECHNIQUE: Real-time, transvaginal sonography of the pelvis. Doppler and spectral waveform analysis of the ovaries, if they were visualized. COMPARISON: March,. FINDINGS: The uterus measures 11.1 x 4.1 x 6.6 cm, has an arcuate configuration and appears grossly unremarkable. The endometrial stripe is within normal limits and measures 5 mm in AP dimension. The right ovary measures 2.7 x 4.5 x 3.2 cm and contains multiple, subcentimeter follicles. The left ovary measures 2.6 x 5.3 x 2.6 cm and contains multiple follicles, including probable dominant follicle measuring up to 1.4 cm. Duplex Doppler shows appropriate blood flow in the bilateral ovaries. No adnexal masses or significant free peritoneal fluid. IMPRESSION: 1. Arcuate uterus. 2. Follicular change in the bilateral ovaries. 3. No other acute findings. Report Dictated on Workstation: AMARI Final Dictating Physician: MD BREWER WENDELL Signed Date and Time: 07/10/2021 10:45 pm Signed by: MD BREWER WENDELL Transcribed Date and Time: 07/10/2021 10:46 Normal [facility] UrinalysisOrdered By: Hetal Calderón on 07-10-2021 Appearance (U) Clear Clear NA [facility] Work Phone: [phone] Comment on above: . Bilirubin Urine Negative Negative mg/dL [facility] Work Phone: [phone] Comment on above: . Color (U) Light-Yellow Lt. Yellow NA [facility] Work Phone: [phone] Comment on above: . Glucose, Ur Normal Normal (<70) mg/dL [facility] Work Phone: [phone] Comment on above: . Interpretation and review of laboratory results Abnormal [facility] Work Phone: [phone] Ketones Ql (U) Negative Negative mg/dL [facility] Work Phone: [phone] Comment on above: . LEUKOCYTES, UA Negative Negative Tammy/uL [facility] Work Phone: [phone] Comment on above: . Nitrite, Urine Negative Negative NA [facility] Work Phone: [phone] Comment on above: . Occult Blood,Urine Negative Negative mg/dL [facility] Work Phone: [phone] Comment on above: . pH (U) 6.0 [pH] [facility] Work Phone: [phone] Comment on above: . Specific [place], Urine >1.030 Abnormal [facility] Work Phone: [phone] Comment on above: . Total Protein, Urine Negative Negativ e mg/dL [facility] Work Phone: Comment on above: . Urobilinogen, Urine Normal Normal ( 0-1) mg/dL [facility] Work Phone: Comment on above: . Comp Metabolic Panelon 05-11 ALP [Catalytic activity/Vol] 55 U/L Normal 38-126 [facility] Comment on above: Performed By: #### C MP3, HEMDF ####[facility] [address] [place] [address] ALT [Catalytic activity/Vol] 14 U/L Normal 0-34 [facility] Comment on above: Result Comment: The ALT test is performed by an updated assay method. Please note that the reference intervals have been changed and are now sex specific. Performed By: #### C MP3, HEMDF ####[facility] [address] [place] [address] Calcium [Mass/Vol] 8.9 mg/dL Normal 8.4-10.4 [facility] Comment on above: Performed By: #### C MP3, HEMDF ####[facility] [place] [address] [place] [address] Glucose [Mass/Vol] 76 mg/dL Normal 70-100 [facility] Comment on above: Performed By: #### C MP3, HEMDF ####[facility] [place] [address] [place] [address] Urea nitrogen [Mass/Vol] 12 mg/dL Normal 7-20 [facility] Comment on above: Performed By: #### C MP3, HEMDF ####[facility] [place] [address] [place] [address] Anion gap [Moles/Vol] 3 mmol/L Normal 3-13 [facility] Comment on above: Performed By: #### C MP3, HEMDF ####[facility] [address] [place] [address] AST [Catalytic activity/Vol] 24 U/L Normal 15-46 [facility] Comment on above: Performed By: #### C MP3, HEMDF ####[facility] [employer] [place] [address] [place] [address] Bilirubin [Mass/Vol] 0.3 mg/dL Normal 0.2-1.3 [facility] Comment on above: Performed By: #### C MP3, HEMDF ####[place] [address] [place] [place] [address] CO2 [Moles/Vol] 25 mmol/L Normal 22-30 [facility] Comment on above: Performed By: #### C MP3, HEMDF ####[place] [address] [place] [address] Creatinine [Mass/Vol] 0.62 mg/dL Normal 0.52-1.25 [facility] Comment on above: Performed By: #### C MP3, HEMDF ####[address] [place] [facility] [place] [address] eGFR OTHER > 90.0 Normal >60 [facility] Comment on above: Result Comment: KDIG O guidelines provide the following GFR categories: Stage GFR(ml/min/1.73 m2) Terms G1 >=90 Normal or high G2 60-89 Mildly decreased* G3a 45-59 Mildly to moderately decreased G3b 30-44 Moderately to severely decreased G4 15-29 Severely decreased G5 <15 Kidney failure *Relative to young adult level. In the absence of evidence of kidney damage, neither GFR category G1 nor G2 fulfill the criteria for CKD. The CKD-EPI equation is validated in individuals 18 years of age and older. Currently the best equation for estimating glomerular filtration rate (GFR) from serum creatinine in children is the Bedside Calvo equation. It is less accurate in patients with extremes of muscle mass, restriction of dietary protein, ingestion of creatine, extra-renal metabolism of creatinine, or treatment with medications that affect renal tubular creatinine secretion. Performed By: #### C MP3, HEMDF ####[address] [place] [facility] [place] [address] GFR/1.73 sq M.predicted among blacks MDRD (S/P/Bld) [Vol rate/Area] mL/min/{1.73_m2} Normal >60 [facility] Comment on above: Performed By: #### C MP3, HEMDF ####[address] [place] [facility] [place] [address] Protein [Mass/Vol] 6.9 g/dL Normal 6.3-8.2 [facility] Comment on above: Performed By: #### C MP3, HEMDF ####[place] [address] [place] [address] Potassium [Moles/Vol] 3.9 mmol/L Normal 3.5-5.1 [facility] Comment on above: Performed By: #### C MP3, HEMDF ####[place] [address] [place] [address] Sodium [Moles/Vol] 137 mmol/L Normal 135-145 [facility] Comment on above: Performed By: #### C MP3, HEMDF ####[place] [address] [place] [address] Albumin [Mass/Vol] 3.8 g/dL Normal 3.5-5.0 [facility] Comment on above: Performed By: #### C MP3, HEMDF ####[place] [address] [place] [address] Chloride [Moles/Vol] 109 mmol/L High 98-107 [facility] Comment on above: Performed By: #### C MP3, HEMDF ####[place] [address] [place] [address] Complete Urinalysison 2020 Appearance (U) Clear Normal Clear [facility] Comment on above: Result Comment: . Performed By: #### C UA2 ####[place] [address] [place] [address] Bilirubin,Urine Negative Normal Negative [facility] Comment on above: Result Comment: . Performed By: #### C UA2 ####[place] [address] [place] [address] Color (U) Colorless Normal Lt. Yellow [facility] Comment on above: Result Comment: . Performed By: #### C UA2 ####[place] [address] [place] [address] Glucose Ql (U) Normal Normal Normal (<70) [facility] Comment on above: Result Comment: . Performed By: #### C UA2 ####[place] [address] [place] [address] Ketone,Urine Negative Normal Negative [facility] Comment on above: Result Comment: . Performed By: #### C UA2 ####[place] [address] [place] [address] Leukocytes,Urine Negative Normal Negative [facility] Comment on above: Result Comment: . Performed By: #### C UA2 ####[place] [address] [place] [address] Nitrites,Urine Negative Normal Negative [facility] Comment on above: Result Comment: . Performed By: #### C UA2 ####[address] [place] [address] Occult Blood,Urine Negative Normal Negative [facility] Comment on above: Result Comment: . Performed By: #### C UA2 ####[address] [place] [address] pH,Urine 6.5 Normal 5.0-8.0 [facility] Comment on above: Result Comment: . Performed By: #### C UA2 ####[address] [place] [address] Specific [place],Urine 1.011 Normal 1.005 - 1.030 [facility] Comment on above: Result Comment: . Performed By: #### C UA2 ####[address] [place] [address] Total Protein,Urine Negative Normal Negative [facility] Comment on above: Result Comment: . Performed By: #### C UA2 ####[address] [place] [address] Urobilinogen,Urine Normal Normal Normal (0-1) [facility] Comment on above: Result Comment: . Performed By: #### C UA2 ####[address] [place] [address] Comprehensive Metabolic Pane lOrdered By: Angie Alejandro on 05-11-2021 Albumin [Mass/Vol] 3.8 g/dL 3.5 - 5.0 g/dL [facility] Work Phone: ALP (Bld) [Catalytic activity/Vol] 55 U/L 38 - 126 U/L [facility] Work Phone: ALT [Catalytic activity/Vol] 14 U/L 0 - 34 U/L [facility] Work Phone: Comment on above: The ALT test is perf ormed by an updated assay method. Please note that the reference intervals have been changed and are now sex specific. Anion gap [Moles/Vol] 3 mmol/L 3 - 13 mmol/L [facility] Work Phone: AST [Catalytic activity/Vol] 24 U/L 15 - 46 U/L [facility] Work Phone: Bilirubin [Mass/Vol] 0.3 mg/dL 0.2 - 1 .3 mg/dL [facility] Work Phone: Calcium [Mass/Vol] 8.9 mg/dL 8.4 - 10. 4 mg/dL [facility] Work Phone: Chloride [Moles/Vol] 109 mmol/L High 98 - 10 7 mmol/L [facility] Work Phone: CO2 [Moles/Vol] 25 mmol/L 22 - 30 mmol/L [facility] Work Phone: Creatinine [Mass/Vol] 0.62 mg/dL 0.52 - 1.25 mg/dL [facility] Work Phone: EGFR IF NonAfrican Bahamian >90.0 >60 mL/min [facility] Work Phone: Comment on above: KDIGO guidelines pro vide the following GFR categories: Stage GFR(ml/min/1.73 m2) Terms G1 >=90 Normal or high G2 60-89 Mildly decreased* G3a 45-59 Mildly to moderately decreased G3b 30-44 Moderately to severely decreased G4 15-29 Severely decreased G5 <15 Kidney failure *Relative to young adult level. In the absence of evidence of kidney damage, neither GFR category G1 nor G2 fulfill the criteria for CKD. The CKD-EPI equation is validated in individuals 18 years of age and older. Currently the best equation for estimating glomerular filtration rate (GFR) from serum creatinine in children is the Bedside Calvo equation. It is less accurate in patients with extremes of muscle mass, restriction of dietary protein, ingestion of creatine, extra-renal metabolism of creatinine, or treatment with medications that affect renal tubular creatinine secretion. Free PSA/Total PSA [Mass fraction] 6.9 g/dL 6.3 - 8.2 g/dL [facility] Work Phone: GFR/1.73 sq M.predicted among blacks MDRD (S/P/Bld) [Vol rate/Area] mL/min/{1.73_m2} >60 mL/min [facility] Work Phone: Glucose [Mass/Vol] 76 mg/dL 70 - 100 mg/dL [facility] Work Phone: Interpretation and review of laboratory results Abnormal [facility] Work Phone: Potassium [Moles/Vol] 3.9 mmol/L 3.5 - 5.1 mmol/L [facility] Work Phone: Sodium [Moles/Vol] 137 mmol/L 135 - 145 mmol/L [facility] Work Phone: Urea nitrogen (BldV) [Mass/Vol] 12 mg/dL 7 - 20 mg/dL [facility] Work Phone: Test Performed by [facility], [address] [place] [id number] [facility] Work Phone: [facility] Work Phone: ED Provider Noteon 1 ED Provider Note [facility] ED EMERGENCY DEPARTMENT ENCOUNTER Pt Name: Lillian Fiore Birthdate 1985 Date of evaluation: 05/11/2021 Provider: ANGIE ALEJANDRO MD CHIEF COMPLAINT Chief Complaint Patient presents with ? Abdominal Pain lower ? Back Pain lower HISTORY OF PRESENT ILLNESS (Location/Symptom, Timing/Onset, Context/Setting, Quality, Duration, Modifying Factors, Severity) Note limiting factors. I wore a KN95 and surgical mask for the entirety of this encounter. HPI Lillian Fiore is a 35 y.o. female who presents to the emergency department complaining of back pain and abdominal pain. The patient began having severe lower back pain 3 days ago. She now has lower abdominal pain as well. There is been no frequency or burning on urination. She had a negative test yesterday. She has problems with her back from time to time. She states that this pain is more severe than usual. She went to [place] emergency department last night. She states that she had a CAT scan as well as ultrasound of her abdomen. This demonstrated follicular cysts on her right ovary but no other abnormalities were noted. The patient denies numbness or tingling. She has not had any stool or urinary incontinence. She has a history of anxiety and depression. She has been treated for depression. Nursing Notes were reviewed. REVIEW OF SYSTEMS (2+ for level 4; 10+ for level 5) Review of Systems Constitutional: Negative for activity change, chills and fever. HENT: Negative for congestion, ear pain and sore throat. Eyes: Negative for pain and redness. Respiratory: Negative for cough, chest tightness and shortness of breath. Cardiovascular: Negative for chest pain and palpitations. Gastrointestinal: Positive for abdominal pain and nausea. Negative for vomiting. Genitourinary: Negative for dysuria, flank pain and urgency. Musculoskeletal: Positive for back pain. Negative for arthralgias and myalgias. Skin: Negative for rash. Neurological: Negative for dizziness. Psychiatric/Behavioral: Negative for confusion. The patient is not nervous/anxious. PAST MEDICAL HISTORY Past Medical History: Diagnosis Date ? Anxiety ? Depression ? GERD (gastroesophageal reflux disease) ? Post depression ? Tail bone pain SURGICAL HISTORY History reviewed. No pertinent surgical history. CURRENT MEDICATIONS Previous Medications BUSPIRONE (BUSPAR) 15 MG TABLET TAKE 1 TABLET BY MOUTH 3 TIMES DAILY FENOFIBRATE 160 MG TABLET TAKE 1 TABLET BY MOUTH DAILY IBUPROFEN (ADVIL;MOTRIN) 800 MG TABLET Take 800 mg by mouth every 6 hours as needed for Pain MELOXICAM (MOBIC) 15 MG TABLET TAKE 1 TABLET BY MOUTH EVERY DAY WITH FOOD NONFORMULARY Lexapro 10 mg PO Daily PAROXETINE (PAXIL) 30 MG TABLET Take 1 tablet by mouth every morning VIT-FE FUMARATE-FA (PNV FOLIC ACID + IRON) 27-1 MG TABS Take 1 tablet by mouth daily PROMETHAZINE (PHENERGAN) 12.5 MG TABLET Take 1 tablet by mouth every 6 hours as needed for Nausea RANITIDINE (ZANTAC) 150 MG TABLET 150 mg daily as needed VALACYCLOVIR (VALTREX) 1 G TABLET Take 2 tablets by mouth 2 times daily ALLERGIES Bentyl [dicyclomine hcl] and Pcn [penicillins] FAMILY HISTORY Family History Problem Relation Age of Onset ? COPD Paternal Grandmother ? Breast Cancer Neg Hx ? Colon Cancer Neg Hx ? Uterine Cancer Neg Hx ? Ovarian Cancer Neg Hx SOCIAL HISTORY Social History Socioeconomic History ? Marital status: Spouse name: None ? Number of children: None ? Years of education: None ? Highest education level: None Occupational History ? None Tobacco Use ? Smoking status: Current Every Day Smoker Packs/day: 0.25 Years: 5.00 Pack years: 1.25 Types: Cigarettes ? Smokeless tobacco: Never Used Vaping Use ? Vaping Use: Never used Substance and Sexual Activity ? Alcohol use: No ? Drug use: No ? Sexual activity: Yes Other Topics Concern ? None Social History Narrative ? None Social Determinants of Health Financial Resource Strain: ? Difficulty of Paying Living Expenses: Food Insecurity: ? Worried About Running Out of Food in the Last Year: ? Ran Out of Food in the Last Year: Transportation Needs: ? Lack of Transportation (Medical): ? Lack of Transportation (Non-Medical): Physical Activity: ? Days of Exercise per Week: ? Minutes of Exercise per Session: Stress: ? Feeling of Stress : Social Connections: ? Frequency of Communication with Friends and Family: ? Frequency of Social Gatherings with Friends and Family: ? Attends Synagogue Services: ? Active Member of Clubs or Organizations: ? Attends Club or Organization Meetings: ? Marital Status: Intimate Partner Violence: ? Fear of Current or Ex-Partner: ? Emotionally Abused: ? Physically Abused: ? Sexually Abused: SCREENINGS PHYSICAL EXAM (up to 7 for level 4, 8 or more for level 5) ED Triage Vitals [05/11/21 (more content not included)... Normal [facility] Hemogram (CBC) w/Auto DiffOr dered By: Angie Alejandro on 05-11-2021 Absolute Baso # 0.0 10*3/uL 0.0 - 0.2 10*3/uL [facility] Work Phone: Absolute Neut # 3.1 10*3/uL 1.8 - 7.0 10*3/uL [facility] Work Phone: Basophils/100 WBC (Bld) 0.7 % 0.0 - 2.0 % [facility] Work Phone: Eosinophils (Bld) [#/Vol] 0.2 10*3/uL 0.0 - 0.5 10*3/uL [facility] Work Phone: Eosinophils/100 WBC (Bld) 3.0 % 1.0 - 6.0 % [facility] Work Phone: 1 22 Granulocytes/100 WBC (Bld) 53.2 % 40.0 - 80.0 % [facility] Work Phone: Hematocrit (Bld) [Volume fraction] 38.6 % 35.0 - 47.0 % [facility] Work Phone: 22 Hemoglobin.gastrointes tinal spec 1 Ql (Stl) 13.1 g/dL 11.7 - 16.0 g/dL [facility] Work Phone: 1 22 Lymphocytes (Bld) [#/Vol] 2.2 10*3/uL 1.0 - 4.3 10*3/uL [facility] Work Phone: 22 Lymphocytes/100 WBC (Bld) 37.2 % 20.0 - 40.0 % [facility] Work Phone: MCH (RBC) [Entitic mass] 31.0 pg 26.0 - 34.0 pg [facility] Work Phone: 22 MCHC (RBC) [Mass/Vol] 33.9 % 32.0 - 36.0 % [facility] Work Phone: MCV (RBC) [Entitic vol] 91.5 fL 79.0 - 98.0 fL [facility] Work Phone: Monocytes (Bld) [#/Vol] 0.3 10*3/uL 0.0 - 0.8 10*3/uL [facility] Work Phone: 22 Monocytes/100 WBC (Bld) 5.9 % 2.0 - 10.0 % [facility] Work Phone: Platelet distribution width (Bld) [Ratio] 13.9 % 11.5 - 14.5 % [facility] Work Phone: Platelet mean volume (Bld) [Entitic vol] 8.0 fL 7.4 - 10.4 fL [facility] Work Phone: 22 Platelets (Bld) [#/Vol] 201 10*3/uL 140 - 440 10*3/uL [facility] Work Phone: 22 RBC (Bld) [#/Vol] 4.22 10*6/uL 3.80 - 5.2 0 10*6/uL [facility] Work Phone: [phone] WBC (Bld) [#/Vol] 5.9 10*3/uL 3.6 - 10.7 10*3/uL [facility] Work Phone: [phone] Test Performed by [facility], [address] [place], [place] [address] [facility] Work Phone: 1 [facility] Work Phone: 1 Hemogram w/ Autodiffon 05-11 Abs Baso Cnt 0.0 10*3/uL Normal 0.0-0.2 [facility] Comment on above: Performed By: #### C MP3, HEMDF ####[facility] [employer] [place] [address] [place] [address] Abs Neutrophile Cnt 3.1 10*3/uL Normal 1.8-7.0 [facility] Comment on above: Performed By: #### C MP3, HEMDF ####[facility] [employer] [address] [place] [address] Basophils/100 WBC (Bld) 0.7 % Normal 0.0-2.0 [facility] Comment on above: Performed By: #### C MP3, HEMDF ####[facility] [employer] [address] [place] [address] Eosinophils (Bld) [#/Vol] 0.2 10*3/uL Normal 0.0-0.5 [facility] Comment on above: Performed By: #### C MP3, HEMDF ####[facility] [employer] [address] [place] [address] Eosinophils/100 WBC (Bld) 3.0 % Normal 1.0-6.0 [facility] Comment on above: Performed By: #### C MP3, HEMDF ####[facility] [address] [place] [address] Erythrocyte distribution width (RBC) [Ratio] 13.9 % Normal 11.5-14.5 [facility] Comment on above: Performed By: #### C MP3, HEMDF ####[place] [address] [place] [address] Granulocytes/100 WBC (Bld) 53.2 % Normal 40.0-80.0 [facility] Comment on above: Performed By: #### C MP3, HEMDF ####[place] [address] [place] [address] Hematocrit (Bld) [Volume fraction] 38.6 % Normal 35.0-47.0 [facility] Comment on above: Performed By: #### C MP3, HEMDF ####[place] [address] [place] [address] Hemoglobin (Bld) [Mass/Vol] 13.1 g/dL Normal 11.7-16.0 [facility] Comment on above: Performed By: #### C MP3, HEMDF ####[address] [place] [address] Lymphocytes (Bld) [#/Vol] 2.2 10*3/uL Normal 1.0-4.3 [facility] Comment on above: Performed By: #### C MP3, HEMDF ####[place] [address] [place] [address] Lymphocytes/100 WBC (Bld) 37.2 % Normal 20.0-40.0 [facility] Comment on above: Performed By: #### C MP3, HEMDF ####[place] [address] [place] [address] MCH (RBC) [Entitic mass] 31.0 pg Normal 26.0-34.0 [facility] Comment on above: Performed By: #### C MP3, HEMDF ####[place] [address] [place] [address] MCHC 33.9 % Normal 32.0-36.0 [facility] Comment on above: Performed By: #### C MP3, HEMDF ####[place] [address] [place] [address] MCV (RBC) [Entitic vol] 91.5 fL Normal 79.0-98.0 [facility] Comment on above: Performed By: #### C MP3, HEMDF ####[place] [address] [place] [address] Monocytes (Bld) [#/Vol] 0.3 10*3/uL Normal 0.0-0.8 [facility] Comment on above: Performed By: #### C MP3, HEMDF ####[facility] [place] [address] Monocytes/100 WBC (Bld) 5.9 % Normal 2.0-10.0 [facility] Comment on above: Performed By: #### C MP3, HEMDF ####[facility] [place] [address] Platelet mean volume (Bld) [Entitic vol] 8.0 fL Normal 7.4-10.4 [facility] Comment on above: Performed By: #### C MP3, HEMDF ####[address] [place] [address] Platelets (Bld) [#/Vol] 201 10*3/uL Normal 140-440 [facility] Comment on above: Performed By: #### C MP3, HEMDF ####[address] [place] [address] RBC (Bld) [#/Vol] 4.22 10*6/uL Normal 3.80-5.20 [facility] Comment on above: Performed By: #### C MP3, HEMDF ####[address] [place] [address] WBC (Bld) [#/Vol] 5.9 10*3/uL Normal 3.6-10.7 [facility] Comment on above: Performed By: #### C MP3, HEMDF ####[facility] [employer] [address] [place] [address] UrinalysisOrdered By: Iam Alejandro on 05-11-2021 Appearance (U) Clear Clear NA [facility] Work Phone: Comment on above: . Bilirubin Urine Negative Negative mg/dL [facility] Work Phone: Comment on above: . Color (U) Colorless Lt. Yellow NA [facility] Work Phone: Comment on above: . Glucose, Ur Normal Normal (<70) mg/dL [facility] Work Phone: [phone] Comment on above: . Ketones Ql (U) Negative Negative mg/dL [facility] Work Phone: [phone] Comment on above: . LEUKOCYTES, UA Negative Negative Tammy/uL [facility] Work Phone: 1 Comment on above: . Nitrite, Urine Negative Negative NA [facility] Work Phone: 1 Comment on above: . Occult Blood,Urine Negative Negative mg/dL [facility] Work Phone: 1 Comment on above: . pH (U) 6.5 [pH] [facility] Work Phone: 1 Comment on above: . Specific [place], Urine 1.011 [facility] Work Phone: 1 Comment on above: . Total Protein, Urine Negative Negativ e mg/dL [facility] Work Phone: 1 Comment on above: . Urobilinogen, Urine Normal Normal ( 0-1) mg/dL [facility] Work Phone: [phone] Comment on above: . Test Performed by [facility], [address] [place] [address] [place], [place] [address] [place], [place] [address]A Work Phone: 1 [facility] Work Phone: [phone] Surgical Tissue Examon 05-08 Surgical Tissue Exam Test performed at [place] [address] NAME: LILLIAN FIORE REQUESTING: BRITNEY CEDEÑO MD FINAL DIAGNOSIS: A) DUODENUM, SECOND PORTION, BIOPSY - NO PATHOLOGIC ABNORMALITIES. B) STOMACH, ANTRUM, BIOPSY - NO PATHOLOGIC ABNORMALITIES. SEE COMMENT. C) COLON, RANDOM BIOPSIES - NO PATHOLOGIC ABNORMALITIES. COMMENT: There are no histologic features in the gastric biopsy to suggest Helicobacter pylori infection. OPERATIVE PROCEDURE: EGD with biopsies, colonoscopy with biopsies CLINICAL INFORMATION: Functional dyspepsia, nausea, functional bowel disorder, generalized abdominal pain GROSS DESCRIPTION: A) Second portion of duodenum Received in formalin labeled second portion of duodenum are two irregular casas soft tissue fragments aggregating to 0.4 x 0.2 x 0.2 cm. The specimen is submitted entirely in cassette A. B) Antrum - test for H. pylori Received in formalin labeled antrum are three irregular casas soft tissue fragments aggregating to 0.3 x 0.2 x 0.2 cm. The specimen is submitted entirely in cassette B. C) Random colon mucosa Received in formalin labeled random colon mucosa are multiple irregular casas soft tissue fragments aggregating to 1.2 x 0.6 x 0.2 cm. The specimen is submitted entirely in cassette C. 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 This test was developed and its performance characteristics determined by [facility] [place]. This test has been authorized by FDA under an Emergency Use Authorization (EUA). This test has been validated in accordance with the FDA's Guidance Document Policy for Diagnostics Testing in Laboratories Certified to Perform High Complexity Testing under CLIA prior to Emergency use Authorization for Coronavirus Disease 2019 during the Public Health Emergency issued on December 01, 2019. Performing Laboratory: [facility] [address] [place] [address] Performed By: #### C D19X #### [place] [address] Clinical Lists Update: Prelo ad Extendedon 10-17-2019 Tobacco smoking status NHIS current everyday smoker [facility] Work Phone: Clinical Summary: HMSPatient IDon 10-17-2019 [facility] Work Phone: Office Visit: New - 1st visi t with practice, Rm: 6on 10-17-2019 NEGATED: Highlighted rowxray history of the Right Hand on 09/01/[address] [facility] Work Phone: COVID-19 virus antigen assay SARS-CoV-2 (COVID-19) Ag IA.rapid Ql (Resp) [facility] Work Phone: Culture, urine Bacteria identified Cx Nom (U) Culture exhibits no growth. [facility] Work Phone: Bacteria identified Cx Nom (U) Positive [facility] Work Phone: Influenza virus A and B and SARS-CoV-2 (COVID-19) Ag panel - Upper respiratory specim SARS-CoV-2 (COVID-19) RNA FRANCESCO+probe Ql (Resp) [facility] Work Phone: Laboratory - Microbiology an d Antimicrobial susceptibility Bacteria identified Cx Nom (Bld) No growth in 5 days. [facility] Work Phone: No Panel Information Group B Streptococcus Culture Group B Beta Streptococcus is not isolated. [facility] Work Phone: Vital Signs Date Time Vital Sign Value Performing Clinician Facility 03-18-2025 09:30-0400 Body height 160.[address] Maria Regan MD Work Phone: [facility] [facility] 03-18-2025 09:30-0400 Body mass index (BMI) [Ratio] 29.5 kg/m2 Dr. Maria Regan MD Work Phone: [facility] 03-18-2025 09:30-0400 Body weight 75.[address] Maria Regan MD Work Phone: [facility] 03-18-2025 09:30-0400 Diastolic blood pressure 56 mm[Hg] Dr. Maria Regan MD Work Phone: [facility] 03-18-2025 09:30-0400 Systolic blood pressure 99 mm[Hg] Dr. Maria Regan MD Work Phone: 7(609)794-881528 [place] [address] 03-06-2025 15:23-0400 Body temperature 98.4 [degF] Dr. Maria Regan MD Work Phone: 9(903)446-511228 [place] [address] 03-06-2025 15:23-0400 Diastolic blood pressure 74 mm[Hg] Dr. Maria Regan MD Work Phone: 4(617)492-349328 [place] [address] 03-06-2025 15:23-0400 Heart rate 74 /min Dr. Maria Regan MD Work Phone: 4(215)835-989828 [place] [address] 03-06-2025 15:23-0400 Respiratory rate 16 /min Dr. Maria Regan MD Work Phone: [facility] 03-06-2025 15:23-0400 SaO2% (BldA) [Mass fraction] 99 % Dr. Maria Regan MD Work Phone: 2(718)982-429828 [place] [address] 03-06-2025 15:23-0400 Systolic blood pressure 164 mm[Hg] Dr. Maria Regan MD Work Phone: [facility] 03-06-2025 10:02-0400 Body height 160.[address] Maria Regan MD Work Phone: [facility] 03-06-2025 10:02-0400 Body mass index (BMI) [Ratio] 29.2 kg/m2 Dr. Maria Regan MD Work Phone: 8(482)359-389328 [place] [address] 03-06-2025 10:02-0400 Body weight [address] Maria Regan MD Work Phone: 6(857)410-091728 [place] [address] 02-27-2025 10:31-0400 Body height 160.[address] Maria Regan MD Work Phone: [facility] 02-27-2025 10:31-0400 Body mass index (BMI) [Ratio] 29.2 kg/m2 Dr. Maria Regan MD Work Phone: [facility] 02-27-2025 10:31-0400 Body weight 74.[address] Maria Regan MD Work Phone: [facility] 02-27-2025 10:31-0400 Diastolic blood pressure 66 mm[Hg] Dr. Maria Regan MD Work Phone: 0(818)448-692828 [place] [address] 02-27-2025 10:31-0400 Systolic blood pressure 102 mm[Hg] Dr. Maria Regan MD Work Phone: 9(225)380-838928 [place] [address] 02-18-2025 10:04-0400 Body temperature 98.2 [degF] Dr. Maria Regan MD Work Phone: 6(100)376-056728 [place] [address] 02-18-2025 10:04-0400 Diastolic blood pressure 45 mm[Hg] Dr. Maria Regan MD Work Phone: [facility] 02-18-2025 10:04-0400 Heart rate 53 /min Dr. Maria Regan MD Work Phone: [facility] 02-18-2025 10:04-0400 Respiratory rate 18 /min Dr. Maria Regan MD Work Phone: [facility] 02-18-2025 10:04-0400 SaO2% (BldA) [Mass fraction] 98 % Dr. Maria Regan MD Work Phone: [facility] 02-18-2025 10:04-0400 Systolic blood pressure 112 mm[Hg] Dr. Maria Regan MD Work Phone: [facility] 02-18-2025 08:29-0400 Body height 160.[address] Maria Regan MD Work Phone: [facility] 02-18-2025 08:29-0400 Body mass index (BMI) [Ratio] 28.8 kg/m2 Dr. Maria Regan MD Work Phone: 9(692)676-093028 [place] [address] 02-18-2025 08:29-0400 Body weight 73.[address] Maria Regan MD Work Phone: 2(631)421-798528 [place] [address] 01-07-2025 14:54-0400 Body height 160.[address] Maria Regan MD Work Phone: 5(431)252-106828 [place] [address] 01-07-2025 14:54-0400 Body mass index (BMI) [Ratio] 29.9 kg/m2 Dr. Maria Regan MD Work Phone: 7(559)624-006928 [place] [address] 01-07-2025 14:54-0400 Body weight 76.[address] Maria Regan MD Work Phone: 3(437)074-685228 [place] [address] 01-07-2025 14:54-0400 Diastolic blood pressure 51 mm[Hg] Dr. Maria Regan MD Work Phone: 2(772)319-380828 [place] [address] 01-07-2025 14:54-0400 Systolic blood pressure 105 mm[Hg] Dr. Maria Regan MD Work Phone: 7(383)619-414428 [place] [address] 12-21-2024 11:17-0400 Body mass index (BMI) [Ratio] 29.9 kg/m2 Dr. Maria Regan MD Work Phone: 0(752)331-209628 [place] [address] 12-21-2024 11:17-0400 Body weight 76.[address] Maria Regan MD Work Phone: 5(433)745-970328 [place] [address] 12-21-2024 11:17-0400 Diastolic blood pressure 49 mm[Hg] Dr. Maria Regan MD Work Phone: 5(061)134-940228 [place] [address] 12-21-2024 11:17-0400 Systolic blood pressure 95 mm[Hg] Dr. Maria Regan MD Work Phone: 5(159)949-271628 [place] [address] 11-22-2024 22:37-0500 Body temperature 98.4 [degF] Dr. Maria Regan MD Work Phone: [facility] 11-22-2024 22:37-0500 Diastolic blood pressure 71 mm[Hg] Dr. Maria Reagn MD Work Phone: [facility] 11-22-2024 22:37-0500 Heart rate 65 /min Dr. Maria Regan MD Work Phone: 2(156)497-185928 [place] [address] 11-22-2024 22:37-0500 Respiratory rate 17 /min Dr. Maria Regan MD Work Phone: 7(882)141-496028 [place] [address] 11-22-2024 22:37-0500 SaO2% (BldA) [Mass fraction] 99 % Dr. Maria Regan MD Work Phone: 6(926)328-359628 [place] [address] 11-22-2024 22:37-0500 Systolic blood pressure 108 mm[Hg] Dr. Maria Regan MD Work Phone: 0(445)774-087728 [place] [address] 11-22-2024 15:16-0500 Body mass index (BMI) [Ratio] 30.1 kg/m2 Dr. Maria Regan MD Work Phone: 1(712)656-301828 [place] [address] 11-22-2024 15:16-0500 Body weight 77.[address] Maria Regan MD Work Phone: [facility] 2024 08:26-0500 Body height 160 cm Jennifer Werner MD Work Phone: [facility] 2024 08:26-0500 Body mass index (BMI) [Ratio] 30.12 kg/m2 Jennifer Werner MD Work Phone: [facility] 2024 08:26-0500 Body weight 77.11 kg Jennifer Werner MD Work Phone: [facility] 2024 08:26-0500 Diastolic blood pressure 69 mm[Hg] Jennifer Werner MD Work Phone: [facility] 2024 08:26-0500 Heart rate 67 /min Jennifer Werner MD Work Phone: [facility] 2024 08:26-0500 SaO2% (BldA) [Mass fraction] 96 % Jennifer Werner MD Work Phone: [facility] 2024 08:26-0500 Systolic blood pressure 104 mm[Hg] Jennifer Werner MD Work Phone: [facility] 10-11-2024 18:40-0500 Body mass index (BMI) [Ratio] 30.47 kg/m2 Krislyn Aberegg PA Work Phone: [facility] 10-11-2024 18:40-0500 Body temperature 97.59 [degF] Krislyn Aberegg PA Work Phone: [facility] 10-11-2024 18:40-0500 Body weight 78 kg Krislyn Aberegg PA Work Phone: [facility] 10-11-2024 18:40-0500 Diastolic blood pressure 67 mm[Hg] Krislyn Aberegg PA Work Phone: [facility] 10-11-2024 18:40-0500 Heart rate 78 /min Krislyn Aberegg PA Work Phone: [facility] 10-11-2024 18:40-0500 Respiratory rate 20 /min Krislyn Aberegg PA Work Phone: [facility] 10-11-2024 18:40-0500 SaO2% (BldA) [Mass fraction] 98 % Krislyn Aberegg PA Work Phone: [facility] 10-11-2024 18:40-0500 Systolic blood pressure 100 mm[Hg] Krislyn Aberegg PA Work Phone: [facility] 07-12-2024 09:00-0400 Body height 160 cm Jennifer Christina MD Work Phone: [facility] 07-12-2024 09:00-0400 Body mass index (BMI) [Ratio] 29.06 kg/m2 Jennifer Christina MD Work Phone: [facility] 07-12-2024 09:00-0400 Body weight 74.39 kg Jennifer Christina MD Work Phone: [facility] 07-12-2024 09:00-0400 Diastolic blood pressure 69 mm[Hg] Jennifer Christina MD Work Phone: [facility] 07-12-2024 09:00-0400 Heart rate 72 /min Jennifer Christina MD Work Phone: [facility] 07-12-2024 09:00-0400 Respiratory rate 18 /min Jennifer Christina MD Work Phone: [facility] 07-12-2024 09:00-0400 SaO2% (BldA) [Mass fraction] 98 % Jennifer Christina MD Work Phone: [facility] 07-12-2024 09:00-0400 Systolic blood pressure 109 mm[Hg] Jennifer Christina MD Work Phone: [facility] 07-09-2024 07:59-0400 Body mass index (BMI) [Ratio] 28.95 kg/m2 Krislyn Aberegg PA Work Phone: [facility] 07-09-2024 07:59-0400 Body temperature 97.11 [degF] Krislyn Aberegg PA Work Phone: [facility] 07-09-2024 07:59-0400 Body weight 74.1 kg Krislyn Aberegg PA Work Phone: [facility] 07-09-2024 07:59-0400 Diastolic blood pressure 70 mm[Hg] Krislyn Aberegg PA Work Phone: [facility] 07-09-2024 07:59-0400 Heart rate 78 /min Krislyn Aberegg PA Work Phone: [facility] 07-09-2024 07:59-0400 Respiratory rate 16 /min Krislyn Aberegg PA Work Phone: [facility] 07-09-2024 07:59-0400 SaO2% (BldA) [Mass fraction] 98 % Krislyn Aberegg PA Work Phone: [facility] 07-09-2024 07:59-0400 Systolic blood pressure 122 mm[Hg] Krislyn Aberegg PA Work Phone: [facility] 06-20-2024 15:18-0400 Body mass index (BMI) [Ratio] 29.1 kg/m2 Kellee Rai PROFESSOR OF ART HISTORY.CONTROL SUPERVISOR Work Phone: [facility] 06-20-2024 15:18-0400 Body temperature 97.59 [degF] Kellee Rai PROFESSOR OF ART HISTORY.CONTROL SUPERVISOR Work Phone: [facility] 06-20-2024 15:18-0400 Body weight 74.5 kg Kellee Rai PROFESSOR OF ART HISTORY.CONTROL SUPERVISOR Work Phone: [facility] 06-20-2024 15:18-0400 Diastolic blood pressure 62 mm[Hg] Kellee Rai PROFESSOR OF ART HISTORY.CONTROL SUPERVISOR Work Phone: [facility] 06-20-2024 15:18-0400 Heart rate 76 /min Kellee Rai PROFESSOR OF ART HISTORY.CONTROL SUPERVISOR Work Phone: [facility] 06-20-2024 15:18-0400 Respiratory rate 16 /min Kellee Rai PROFESSOR OF ART HISTORY.CONTROL SUPERVISOR Work Phone: [facility] 06-20-2024 15:18-0400 SaO2% (BldA) [Mass fraction] 98 % Kellee Rai PROFESSOR OF ART HISTORY.CONTROL SUPERVISOR Work Phone: [facility] 06-20-2024 15:18-0400 Systolic blood pressure 108 mm[Hg] Kellee Rai PROFESSOR OF ART HISTORY.CONTROL SUPERVISOR Work Phone: [facility] 06-15-2024 15:31-0400 Body mass index (BMI) [Ratio] 28.52 kg/m2 Krislyn Aberegg PA Work Phone: [facility] 06-15-2024 15:31-0400 Body temperature 98.29 [degF] Krislyn Aberegg PA Work Phone: [facility] 06-15-2024 15:31-0400 Body weight 73 kg Krislyn Aberegg PA Work Phone: [facility] 06-15-2024 15:31-0400 Diastolic blood pressure 66 mm[Hg] Krislyn Aberegg PA Work Phone: [facility] 06-15-2024 15:31-0400 Heart rate 77 /min Krislyn Aberegg PA Work Phone: [facility] 06-15-2024 15:31-0400 Respiratory rate 20 /min Krislyn Aberegg PA Work Phone: [facility] 06-15-2024 15:31-0400 SaO2% (BldA) [Mass fraction] 98 % Krislyn Aberegg PA Work Phone: [facility] 06-15-2024 15:31-0400 Systolic blood pressure 96 mm[Hg] Krislyn Aberegg PA Work Phone: [facility] 04-27-2024 12:55-0400 Body mass index (BMI) [Ratio] 27.23 kg/m2 Ricki Lafleur APRN.CONTROL SUPERVISOR Work Phone: [facility] 04-27-2024 12:55-0400 Body temperature 97 [degF] Ricki Lafleur PROFESSOR OF ART HISTORY.CONTROL SUPERVISOR Work Phone: [facility] 04-27-2024 12:55-0400 Body weight 69.7 kg Ricki Lafleur PROFESSOR OF ART HISTORY.CONTROL SUPERVISOR Work Phone: [facility] 04-27-2024 12:55-0400 Diastolic blood pressure 74 mm[Hg] Ricki Lafleur PROFESSOR OF ART HISTORY.CONTROL SUPERVISOR Work Phone: [facility] 04-27-2024 12:55-0400 Heart rate 82 /min Ricki Miquel PROFESSOR OF ART HISTORY.CONTROL SUPERVISOR Work Phone: [facility] 04-27-2024 12:55-0400 Respiratory rate 16 /min Ricki Miquel PROFESSOR OF ART HISTORY.CONTROL SUPERVISOR Work Phone: [facility] 04-27-2024 12:55-0400 SaO2% (BldA) [Mass fraction] 97 % Ricki Miquel PROFESSOR OF ART HISTORY.CONTROL SUPERVISOR Work Phone: [facility] 04-27-2024 12:55-0400 Systolic blood pressure 122 mm[Hg] Ricki Miquel PROFESSOR OF ART HISTORY.CONTROL SUPERVISOR Work Phone: [facility] 03-28-2024 15:51-0400 Body height 160 cm Mehran Cooper PROFESSOR OF ART HISTORY.CONTROL SUPERVISOR Work Phone: [facility] 03-28-2024 15:51-0400 Body mass index (BMI) [Ratio] 27.64 kg/m2 Mehran Cooper PROFESSOR OF ART HISTORY.CONTROL SUPERVISOR Work Phone: [facility] 03-28-2024 15:51-0400 Body weight 70.76 kg Mehran Cooper PROFESSOR OF ART HISTORY.CONTROL SUPERVISOR Work Phone: [facility] 03-28-2024 15:51-0400 Diastolic blood pressure 66 mm[Hg] Mehran Cooper PROFESSOR OF ART HISTORY.CONTROL SUPERVISOR Work Phone: [facility] 03-28-2024 15:51-0400 Heart rate 84 /min Mehran Cooper PROFESSOR OF ART HISTORY.CONTROL SUPERVISOR Work Phone: [facility] 03-28-2024 15:51-0400 Respiratory rate 18 /min Mehran Cooper PROFESSOR OF ART HISTORY.CONTROL SUPERVISOR Work Phone: [facility] 03-28-2024 15:51-0400 SaO2% (BldA) [Mass fraction] 99 % Mehran Cooper PROFESSOR OF ART HISTORY.CONTROL SUPERVISOR Work Phone: [facility] 03-28-2024 15:51-0400 Systolic blood pressure 101 mm[Hg] Mehran Cooper PROFESSOR OF ART HISTORY.CONTROL SUPERVISOR Work Phone: [facility] 01-23-2024 21:59-0400 Body height 160.02 cm [facility] 01-23-2024 21:59-0400 Body mass index (BMI) [Ratio] 28.3 kg/m2 [facility] 01-23-2024 21:59-0400 Body temperature 97 [degF] [facility] 01-23-2024 21:59-0400 Body weight 72.57 kg [facility] 01-23-2024 21:59-0400 Diastolic blood pressure 66 mm[Hg] [facility] 01-23-2024 21:59-0400 Heart rate 83 /min [facility] 01-23-2024 21:59-0400 Respiratory rate 16 /min [facility] 01-23-2024 21:59-0400 SaO2% (BldA) [Mass fraction] 99 % [facility] 01-23-2024 21:59-0400 Systolic blood pressure 112 mm[Hg] [facility] 12-25-2023 11:16-0400 Blood Pressure Cuff Size DR JESSICA SALAZAR DO [facility] 12-25-2023 11:16-[address] JESSICA SALAZAR DO [facility] 12-25-2023 11:16-[address] JESSICA SALAZAR DO [facility] 12-25-2023 11:16-0400 Body temperature 98.06 [degF] DR JESSICA SALAZAR DO [facility] 12-25-2023 11:16-0400 Diastolic Blood Pressure Non-Invasive 69 mm[Hg] DR JESSICA SALAZAR DO [facility] 12-25-2023 11:16-0400 Heart rate 66 /min DR JESSICA SALAZAR DO [facility] 12-25-2023 11:16-0400 Respiratory rate 18 /min DR JESSICA SALAZAR DO [facility] 12-25-2023 11:16-0400 Systolic Blood Pressure Non-Invasive 119 mm[Hg] DR JESSICA SALAZAR DO [facility] 03-06-2023 13:59-0400 Body temperature 98.6 [degF] DR JESSICA SALAZAR DO [facility] 03-06-2023 13:59-0400 Body weight [address] JESSICA SALAZAR DO [facility] 03-06-2023 13:59-0400 Diastolic Blood Pressure Non-Invasive [address] JESSICA SALAZAR DO [facility] 03-06-2023 13:59-0400 Heart rate 70 /min DR JESSICA SALAZAR DO [facility] 03-06-2023 13:59-0400 Respiratory rate 18 /min DR JESSICA SALAZAR DO [facility] 03-06-2023 13:59-0400 Systolic Blood Pressure Non-Invasive [address] JESSICA SALAZAR DO [facility] 03-04-2023 21:20-0400 Blood Pressure Cuff Size DR JESSICA SALAZAR DO [facility] 03-04-2023 21:20-[address] JESSICA SALAZAR DO [facility] 03-04-2023 21:20-[address] JESSICA SALAZAR DO [facility] 03-04-2023 21:20-0400 Body height [address] JESSICA SALAZAR DO [facility] 03-04-2023 21:20-0400 Body weight 76.[address] JESSICA SALAZAR DO [facility] 03-04-2023 21:20-0400 Diastolic Blood Pressure Non-Invasive [address] JESSICA SALAZAR DO [facility] 03-04-2023 21:20-0400 Heart rate 60 /min DR JESSICA SALAZAR DO [facility] 03-04-2023 21:20-0400 Reason For Taking VItal Signs DR JESSICA SALAZAR DO [facility] 03-04-2023 21:20-0400 Respiratory rate 18 /min DR JESSICA SALAZAR DO [facility] 03-04-2023 21:20-0400 Systolic Blood Pressure Non-Invasive [address] JESSICA SALAZAR DO [facility] 03-03-2023 11:48-0400 Body height 160 cm Jennifer Christina MD Work Phone: [facility] 03-03-2023 11:48-0400 Body weight 76.66 kg Jennifer Christina MD Work Phone: [facility] 03-03-2023 11:48-0400 Diastolic blood pressure 74 mm[Hg] Jennifer Christina MD Work Phone: [facility] 03-03-2023 11:48-0400 Heart rate 80 /min Jennifer Christina MD Work Phone: [facility] 03-03-2023 11:48-0400 Respiratory rate 18 /min Jennifer Christina MD Work Phone: [facility] 03-03-2023 11:48-0400 SaO2% (BldA) [Mass fraction] 97 % Jennifer Christina MD Work Phone: [facility] 03-03-2023 11:48-0400 Systolic blood pressure 116 mm[Hg] Jennifer Christina MD Work Phone: [facility] 02-07-2023 09:01-0400 Body height 160 cm Jennifer Christina MD Work Phone: [facility] 02-07-2023 09:01-0400 Body weight 76.66 kg Jennifer Christina MD Work Phone: [facility] 02-07-2023 09:01-0400 Diastolic blood pressure 65 mm[Hg] Jennifer Christina MD Work Phone: [facility] 02-07-2023 09:01-0400 Heart rate 77 /min Jennifer Christina MD Work Phone: [facility] 02-07-2023 09:01-0400 Respiratory rate 12 /min Jennifer Christina MD Work Phone: [facility] 02-07-2023 09:01-0400 SaO2% (BldA) [Mass fraction] 98 % Jennifer Christina MD Work Phone: [facility] 02-07-2023 09:01-0400 Systolic blood pressure 113 mm[Hg] Jennifer Christina MD Work Phone: [facility] 12-26-2022 11:37-0400 Body temperature 98.24 [degF] DR RONALDO CANALES MD [facility] 12-26-2022 11:37-0400 Diastolic Blood Pressure Non-Invasive [address] RONALDO CANALES MD [facility] 12-26-2022 11:37-0400 Heart rate 91 /min DR RONALDO CANALES MD [facility] 12-26-2022 11:37-0400 Respiratory rate 16 /min DR RONALDO CANALES MD [facility] 12-26-2022 11:37-0400 Systolic Blood Pressure Non-Invasive [address] RONALDO CANALES MD [facility] 11-12-2022 09:12-0500 Body weight 78.7 kg Kathy Zayas MD Work Phone: [facility] 11-12-2022 09:12-0500 Diastolic blood pressure 82 mm[Hg] Kathy Zayas MD Work Phone: [facility] 11-12-2022 09:12-0500 Heart rate 75 /min Kathy Zayas MD Work Phone: [facility] 11-12-2022 09:12-0500 SaO2% (BldA) [Mass fraction] 100 % Kathy Zayas MD Work Phone: [facility] 11-12-2022 09:12-0500 Systolic blood pressure 115 mm[Hg] Kathy Zayas MD Work Phone: [facility] 11-01-2022 09:34-0500 Body height 160 cm Maria Luisa Tyler MD Work Phone: [facility] 11-01-2022 09:34-0500 Body temperature 98.2 [degF] Maria Luisa Tyler MD Work Phone: [facility] 11-01-2022 09:34-0500 Body weight 78.47 kg Maria Luisa Tyler MD Work Phone: [facility] 11-01-2022 09:34-0500 Diastolic blood pressure 60 mm[Hg] Maria Luisa Tyler MD Work Phone: [facility] 11-01-2022 09:34-0500 Heart rate 80 /min Maria Luisa Tyler MD Work Phone: [facility] 11-01-2022 09:34-0500 Respiratory rate 13 /min Maria Luisa Tyler MD Work Phone: [facility] 11-01-2022 09:34-0500 Systolic blood pressure 118 mm[Hg] Maria Luisa Tyler MD Work Phone: [facility] 10-19-2022 11:17-0500 Body weight 76.66 kg Shira Older PROFESSOR OF ART HISTORY.CONTROL SUPERVISOR Work Phone: [facility] 10-19-2022 11:17-0500 Diastolic blood pressure 74 mm[Hg] Shira Older PROFESSOR OF ART HISTORY.CONTROL SUPERVISOR Work Phone: [facility] 10-19-2022 11:17-0500 Heart rate 82 /min Shira Older PROFESSOR OF ART HISTORY.CONTROL SUPERVISOR Work Phone: [facility] 10-19-2022 11:17-0500 SaO2% (BldA) [Mass fraction] 98 % Shira Older PROFESSOR OF ART HISTORY.CONTROL SUPERVISOR Work Phone: [facility] 10-19-2022 11:17-0500 Systolic blood pressure 108 mm[Hg] Shira Older PROFESSOR OF ART HISTORY.CONTROL SUPERVISOR Work Phone: [facility] 10-07-2022 15:38-0500 Diastolic Blood Pressure Non-Invasive [address] MAVIS SHEPARD MD [facility] 10-07-2022 15:38-0500 Heart rate 84 /min DR MAVIS SHEPARD MD [facility] 10-07-2022 15:38-0500 Respiratory rate 20 /min DR MAVIS SHEPARD MD [facility] 10-07-2022 15:38-0500 Systolic Blood Pressure Non-Invasive [address] MAVIS SHEPARD MD [facility] 10-07-2022 12:34-0500 Body height 77.[address] MAVIS SHEPARD MD [facility] 10-07-2022 12:34-0500 Body temperature 98.24 [degF] DR MAVIS SHEPARD MD [facility] 10-07-2022 12:34-0500 Body weight 77.[address] MAVIS SHEPARD MD [facility] 10-07-2022 12:34-0500 Diastolic Blood Pressure Non-Invasive [address] MAVIS SHEPARD MD [facility] 10-07-2022 12:34-0500 Heart rate 83 /min DR MAVIS SHEPARD MD [facility] 10-07-2022 12:34-0500 Respiratory rate 20 /min DR MAVIS SHEPARD MD [facility] 10-07-2022 12:34-0500 Systolic Blood Pressure Non-Invasive [address] MAVIS SHEPARD MD [facility] 09-27-2022 21:37-0500 Body temperature 98.06 [degF] CEZAR FRENCH MD [facility] 09-27-2022 21:37-0500 Diastolic Blood Pressure Non-Invasive 82 1 CEZAR FRENCH MD [facility] 09-27-2022 21:37-0500 Heart rate 77 /min CEZAR FRENCH MD [facility] 09-27-2022 21:37-0500 Respiratory rate 18 /min CEZAR FRENCH MD [facility] 09-27-2022 21:37-0500 Systolic Blood Pressure Non-Invasive 115 1 CEZAR RFENCH MD [facility] 09-17-2022 16:42-0500 Diastolic blood pressure 75 mm[Hg] Dr. Roger Cohen Work Phone: [facility] Work Phone: 09-17-2022 16:42-0500 Heart rate 88 /min Dr. Roger Cohen Work Phone: [facility] Work Phone: 09-17-2022 16:42-0500 Respiratory rate 16 /min Dr. Roger Cohen Work Phone: [facility] Work Phone: 09-17-2022 16:42-0500 SaO2% (BldA) [Mass fraction] 99 % Dr. Roger Cohen Work Phone: [facility] Work Phone: 09-17-2022 16:42-0500 Systolic blood pressure 110 mm[Hg] Dr. Roger Cohen Work Phone: [facility] Work Phone: 09-17-2022 11:49-0500 Body height 160.[address] Roger Cohen Work Phone: [facility] Work Phone: 09-17-2022 11:49-0500 Body mass index (BMI) [Ratio] 28.3 kg/m2 Dr. Roger Cohen Work Phone: [facility] Work Phone: 09-17-2022 11:49-0500 Body temperature 97.8 [degF] Dr. Roger Cohen Work Phone: [facility] Work Phone: 09-17-2022 11:49-0500 Body weight 72.[address] Roger Cohen Work Phone: [facility] Work Phone: 08-24-2022 09:19-0500 Body mass index (BMI) [Ratio] 28.7 kg/m2 Dr. Roger Cohen Work Phone: [facility] Work Phone: 08-24-2022 09:19-0500 Body weight 73.[address] Roger Cohen Work Phone: [facility] Work Phone: 08-24-2022 09:19-0500 Diastolic blood pressure 68 mm[Hg] Dr. Roger Cohen Work Phone: [facility] Work Phone: 08-24-2022 09:19-0500 Systolic blood pressure 110 mm[Hg] Dr. Roger Cohen Work Phone: [facility] Work Phone: 08-03-2022 09:22-0400 Body temperature 97.2 [degF] Livia Trivedi PROFESSOR OF ART HISTORY.CONTROL SUPERVISOR Work Phone: [facility] 08-03-2022 09:22-0400 Body weight 72.76 kg Livia Trivedi PROFESSOR OF ART HISTORY.CONTROL SUPERVISOR Work Phone: [facility] 08-03-2022 09:22-0400 Diastolic blood pressure 76 mm[Hg] Livia Trivedi PROFESSOR OF ART HISTORY.CONTROL SUPERVISOR Work Phone: [facility] 08-03-2022 09:22-0400 Heart rate 73 /min Livia Trivedi PROFESSOR OF ART HISTORY.CONTROL SUPERVISOR Work Phone: [facility] 08-03-2022 09:22-0400 Respiratory rate 18 /min Livia Trivedi PROFESSOR OF ART HISTORY.CONTROL SUPERVISOR Work Phone: [facility] 08-03-2022 09:22-0400 SaO2% (BldA) [Mass fraction] 97 % Livia Trivedi PROFESSOR OF ART HISTORY.CONTROL SUPERVISOR Work Phone: [facility] 08-03-2022 09:22-0400 Systolic blood pressure 102 mm[Hg] Livia Trivedi PROFESSOR OF ART HISTORY.CONTROL SUPERVISOR Work Phone: [facility] 07-07-2022 10:36-0400 Body mass index (BMI) [Ratio] 27.4 kg/m2 Dr. Roger Cohen Work Phone: [facility] Work Phone: 07-07-2022 10:36-0400 Body weight 70.[address] Roger Cohen Work Phone: [facility] Work Phone: 07-07-2022 10:36-0400 Diastolic blood pressure 84 mm[Hg] Dr. Roger Cohen Work Phone: [facility] Work Phone: 07-07-2022 10:36-0400 Systolic blood pressure 120 mm[Hg] Dr. Roger Cohen Work Phone: [facility] Work Phone: 06-26-2022 08:44-0400 Diastolic blood pressure 53 mm[Hg] Dr. Roger Cohen Work Phone: [facility] Work Phone: 06-26-2022 08:44-0400 Heart rate 73 /min Dr. Roger Cohen Work Phone: [facility] Work Phone: 06-26-2022 08:44-0400 Systolic blood pressure 99 mm[Hg] Dr. Roger Cohen Work Phone: [facility] Work Phone: 06-25-2022 20:13-0400 Body temperature 98 [degF] Dr. Roger Cohen Work Phone: [facility] Work Phone: 06-25-2022 20:13-0400 Diastolic blood pressure 57 mm[Hg] Dr. Roger Cohen Work Phone: [facility] Work Phone: 06-25-2022 20:13-0400 Heart rate 67 /min Dr. Roger Cohen Work Phone: [facility] Work Phone: 06-25-2022 20:13-0400 Respiratory rate 16 /min Dr. Roger Cohen Work Phone: [facility] Work Phone: 06-25-2022 20:13-0400 SaO2% (BldA) [Mass fraction] 98 % Dr. Roger Cohen Work Phone: [facility] Work Phone: 06-25-2022 20:13-0400 Systolic blood pressure 106 mm[Hg] Dr. Roger Cohen Work Phone: [facility] Work Phone: 06-25-2022 16:57-0400 Diastolic blood pressure 65 mm[Hg] Dr. Roger Cohen Work Phone: [facility] Work Phone: 06-25-2022 16:57-0400 Systolic blood pressure 118 mm[Hg] Dr. Roger Cohen Work Phone: [facility] Work Phone: 06-24-2022 16:03-0400 Body height 160.[address] Roger Cohen Work Phone: [facility] Work Phone: 06-24-2022 16:03-0400 Body mass index (BMI) [Ratio] 31.2 kg/m2 Dr. Roger Cohen Work Phone: [facility] Work Phone: 06-24-2022 16:03-0400 Body weight [address] Roger Cohen Work Phone: [facility] Work Phone: 06-23-2022 15:11-0400 Body temperature 98.4 [degF] Yvonne Praisler-Wood PROFESSOR OF ART HISTORY.CONTROL SUPERVISOR Work Phone: [facility] 06-23-2022 15:11-0400 Body weight 80.83 kg Yvonne Praisler-Wood PROFESSOR OF ART HISTORY.CONTROL SUPERVISOR Work Phone: [facility] 06-23-2022 15:11-0400 Diastolic blood pressure 76 mm[Hg] Yvonne Praisler-Wood PROFESSOR OF ART HISTORY.CONTROL SUPERVISOR Work Phone: [facility] 06-23-2022 15:11-0400 Heart rate 95 /min Yvonne Praisler-Wood PROFESSOR OF ART HISTORY.CONTROL SUPERVISOR Work Phone: [facility] 06-23-2022 15:11-0400 Respiratory rate 21 /min Yvonne Prajoniler-Wood PROFESSOR OF ART HISTORY.CONTROL SUPERVISOR Work Phone: [facility] 06-23-2022 15:11-0400 SaO2% (BldA) [Mass fraction] 98 % Yvonne Praisler-Wood PROFESSOR OF ART HISTORY.CONTROL SUPERVISOR Work Phone: [facility] 06-23-2022 15:11-0400 Systolic blood pressure 104 mm[Hg] Yvonne Praisler-Wood PROFESSOR OF ART HISTORY.CONTROL SUPERVISOR Work Phone: [facility] 06-20-2022 21:17-0400 Heart rate 99 /min Dr. Roger Cohen Work Phone: [facility] Work Phone: 06-20-2022 21:17-0400 SaO2% (BldA) [Mass fraction] 96 % Dr. Roger Cohen Work Phone: [facility] Work Phone: 06-20-2022 20:56-0400 Body temperature 99.6 [degF] Dr. Roger Cohen Work Phone: [facility] Work Phone: 06-20-2022 20:56-0400 Diastolic blood pressure 55 mm[Hg] Dr. Roger Cohen Work Phone: [facility] Work Phone: 06-20-2022 20:56-0400 Systolic blood pressure 105 mm[Hg] Dr. Roger Cohen Work Phone: [facility] Work Phone: 06-20-2022 20:43-0400 Body height 160.[address] Roger Cohen Work Phone: [facility] Work Phone: 06-20-2022 20:43-0400 Body mass index (BMI) [Ratio] 33.5 kg/m2 Dr. Roger Cohen Work Phone: [facility] Work Phone: 06-20-2022 20:43-0400 Body weight [address] Roger Cohen Work Phone: [facility] Work Phone: 06-20-2022 13:15-0400 Heart rate 98 /min Emily Jacobs MD Work Phone: [facility] 06-20-2022 08:37-0400 Body temperature 98.71 [degF] Emily Jacobs MD Work Phone: [facility] 06-20-2022 08:37-0400 Diastolic blood pressure 44 mm[Hg] Emily Jacobs MD Work Phone: [facility] 06-20-2022 08:37-0400 Respiratory rate 18 /min Emily Jacobs MD Work Phone: [facility] 06-20-2022 08:37-0400 SaO2% (BldA) [Mass fraction] 98 % Emily Jacobs MD Work Phone: [facility] 06-20-2022 08:37-0400 Systolic blood pressure 93 mm[Hg] Emily Jacobs MD Work Phone: [facility] 06-19-2022 18:17-0400 Body height 160 cm Emily Jacobs MD Work Phone: [facility] 06-19-2022 18:17-0400 Body mass index (BMI) [Ratio] 31.71 kg/m2 Emily Jacobs MD Work Phone: [facility] 06-19-2022 18:17-0400 Body weight 81.19 kg Emily Jacobs MD Work Phone: [facility] 06-19-2022 11:13-0400 Body temperature 98.4 [degF] Dr. Roger Cohen Work Phone: [facility] Work Phone: 06-19-2022 11:13-0400 Diastolic blood pressure 61 mm[Hg] Dr. Roger Cohen Work Phone: [facility] Work Phone: 06-19-2022 11:13-0400 Heart rate 101 /min Dr. Roger Cohen Work Phone: [facility] Work Phone: 06-19-2022 11:13-0400 SaO2% (BldA) [Mass fraction] 98 % Dr. Roger Cohen Work Phone: [facility] Work Phone: 06-19-2022 11:13-0400 Systolic blood pressure 111 mm[Hg] Dr. Roger Cohen Work Phone: [facility] Work Phone: 06-18-2022 21:45-0400 Body height 160.[address] Roger Cohen Work Phone: [facility] Work Phone: 06-18-2022 21:45-0400 Body mass index (BMI) [Ratio] 31.8 kg/m2 Dr. Roger Cohen Work Phone: [facility] Work Phone: 06-18-2022 21:45-0400 Body weight 81.[address] Roger Cohen Work Phone: [facility] Work Phone: 06-18-2022 12:26-0400 Body height 160.[address] Roger Cohen Work Phone: [facility] Work Phone: 06-18-2022 12:26-0400 Body mass index (BMI) [Ratio] 31.6 kg/m2 Dr. Roger Cohen Work Phone: [facility] Work Phone: 06-18-2022 12:26-0400 Body weight 81.[address] Roger Cohen Work Phone: [facility] Work Phone: 06-18-2022 11:39-0400 Body mass index (BMI) [Ratio] 31.7 kg/m2 Dr. Roger Cohen Work Phone: [facility] Work Phone: 06-18-2022 11:39-0400 Body weight 81.[address] Roger Cohen Work Phone: [facility] Work Phone: 06-18-2022 11:39-0400 Diastolic blood pressure 70 mm[Hg] Dr. Roger Cohen Work Phone: [facility] Work Phone: 06-18-2022 11:39-0400 Systolic blood pressure 112 mm[Hg] Dr. Roger Cohen Work Phone: [facility] Work Phone: 06-04-2022 15:24-0400 Body mass index (BMI) [Ratio] 30.8 kg/m2 Dr. Roger Cohen Work Phone: [facility] Work Phone: 06-04-2022 15:24-0400 Body weight 78.[address] Roger Cohen Work Phone: [facility] Work Phone: 05-21-2022 11:49-0400 Body weight 78.[address] Roger Cohen Work Phone: [facility] Work Phone: 05-21-2022 11:49-0400 Diastolic blood pressure 70 mm[Hg] Dr. Roger Cohen Work Phone: [facility] Work Phone: 05-21-2022 11:49-0400 Systolic blood pressure 126 mm[Hg] Dr. Roger Cohen Work Phone: [facility] Work Phone: 05-21-2022 11:19-0400 Body height 160.[address] Roger Cohen Work Phone: [facility] Work Phone: 05-07-2022 11:51-0400 Body mass index (BMI) [Ratio] 30.2 kg/m2 Dr. Roger Cohen Work Phone: [facility] Work Phone: 05-07-2022 11:51-0400 Body weight 77.[address] Roger Cohen Work Phone: [facility] Work Phone: 05-07-2022 11:51-0400 Diastolic blood pressure 66 mm[Hg] Dr. Roger Cohen Work Phone: [facility] Work Phone: 05-07-2022 11:51-0400 Systolic blood pressure 110 mm[Hg] Dr. Roger Cohen Work Phone: [facility] Work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 [facility] Comment on above: Genetics- parental t esting Start: 12-26-2023 Patient Outreach Krista Bone DELIA [facility] Comment on above: Transition Of Care ( ED on 12/25/23) Start: 12-25-2023 End: 12-25-2023 Emergency department patient visit DR JESSICA SALAZAR DO Facility:[facility] Start: 12-25-2023 End: 12-25-2023 Emergency department [facility] Start: 12-16-2023 End: 12-16-2023 [facility] Jennifer Christina MD Work Phone: [facility] Comment on above: Generalized anxiety disorder (Primary Dx); Bipolar affective disorder, currently manic, moderate (HCC) Start: 12-09-2023 Refill Jennifer Christina MD Work Phone: [facility] Comment on above: Refill Request Start: 12-02-2023 Refill Jennifer Christina MD Work Phone: [facility] Comment on above: Refill Request Start: 09-21-2023 Refill Jennifer Christina MD Work [facility]: [facility] Comment on above: Refill Request; Refi ll Request Start: 09-05-2023 Refill Jennifer Christina MD Work Phone: [facility] Comment on above: Refill Request Start: 08-28-2023 Reffrancisco Christina MD Work Phone: [facility] Comment on above: Refill Request Start: 08-16-2023 ambulatory Jennifer Christina MD Work Phone: [employer] Start: 08-01-2023 Patient Outreach Krista Bone LPN [facility] Comment on above: Transition Of Care ( ED on 07/28/23) Start: 07-18-2023 Refill Jennifer Christina MD Work Phone: [facility] Comment on above: Refill Request Start: 05-08-2023 Refill Jennifer Christina MD Work Phone: [facility] Comment on above: Refill Request Start: 03-08-2023 Patient Outreach Basia Carter MA P [facility] Comment on above: Transition Of Care ( Seen at the ER on 03/04/23) Start: 03-07-2023 Refill Veronika joya MD Work Phone: [facility] Comment on above: Refill Request Start: 03-06-2023 End: 03-06-2023 Emergency department patient visit DR JESSICA SALAZAR DO Facility:[facility] Start: 03-06-2023 End: 03-06-2023 Emergency department patient [facility] Start: 03-04-2023 End: 03-05-2023 Emergency department patient visit DR JESSICA SALAZAR DO Facility:[facility] Start: 03-04-2023 End: 03-04-2023 Emergency department patient visit DR JESSICA SALAZAR [facility] Start: 03-04-2023 ambulatory Lillian Lopez RN NURS E STEWARDESS SUPERVISOR Comment on above: Headache Start: 03-03-2023 End: 03-03-2023 Patient encounter procedure Jennifer Christina MD Work Phone: [facility] Comment on above: Bipolar affective di sorder, currently manic, moderate (HCC) (Primary Dx); Generalized anxiety disorder Start: 02-24-2023 ambulatory Jennifer Christina MD Work Phone: [facility] Comment on above: Symptoms Start: 02-07-2023 End: 02-07-2023 Patient encounter procedure Jennifer Christina MD Work Phone: [facility] Comment on above: Moderate episode of recurrent major depressive disorder (HCC) (Primary Dx); Generalized anxiety disorder; Migraine without status migrainosus, not intractable, unspecified migraine type Refill Request (dulo xetine ) Start: 02-01-2023 Telephone encounter Kathy Joya Work Phone: Neurology Comment on above: Appointment Start: 01-31-2023 Refill Jennifer Christina MD Work Phone: [facility] Comment on above: Refill Request Start: 01-28-2023 Refill Jennifer Christina MD Work Phone: [facility] Comment on above: Refill Request (xana x) Start: 12-27-2022 Patient Outreach Basia Carter MA P [facility] Comment on above: Transition Of Care ( Seen at the ER on 12/26/22) Start: 12-26-2022 End: 12-26-2022 Emergency department patient visit DR RONALDO CANALES MD [facility] Start: 12-24-2022 ambulatory Kathy Zayas MD Work Phone: Neurology Comment on above: Headaches Start: 12-21-2022 End: 12-21-2022 [facility] Jennifer Christina MD Work Phone: [facility] Comment on above: Generalized anxiety disorder (Primary Dx); Mixed hyperlipidemia; Fibromyalgia; GERD without esophagitis; Migraine without status migrainosus, not intractable, unspecified migraine type Start: 12-10-2022 End: 12-10-2022 Subsequent hospital visit by physician [facility] (I-Stat/1.5t) Work Phone: Radiology Comment on above: New daily persistent headache [G44.52] Start: 12-04-2022 ambulatory Kathy Zayas MD Work Phone: Neurology Comment on above: Headaches Start: 11-24-2022 ambulatory Jennifer Christina MD Work Phone: [facility] Start: 11-24-2022 Patient encounter procedure Jennifer Christina MD Work Phone: [facility] Comment on above: Appointment Start: 11-12-2022 End: 11-12-2022 Patient encounter procedure Kathy Zayas MD Work Phone: Neurology Comment on above: New daily persistent headache (Primary Dx); Headaches; Mixed headache; Medication overuse headache Start: 11-01-2022 End: 11-01-2022 [facility] Jennifer Christina MD Work Phone: [facility] Comment on above: Generalized anxiety disorder (Primary Dx); Mixed hyperlipidemia; USP systemic steroid user Start: 11-01-2022 End: 11-01-2022 Patient encounter procedure Maria Luisa Tyler MD Work Phone: [facility] Comment on above: Headaches (Primary D x); BING positive; Fibromyalgia; Malaise and fatigue; Pain in joint, multiple sites Start: 10-27-2022 End: 10-27-2022 ambulatory Maria Luisa Tyler MD Work Phone: [facility] Comment on above: Pain in joint, multi ple sites (Primary Dx); Malaise and fatigue; Fibromyalgia; BING positive Start: 10-27-2022 End: 10-27-2022 Telemedicine consultation with patient Maria Luisa Tyler MD Work Phone: [facility] Start: 10-19-2022 End: 10-19-2022 Patient encounter procedure Shira Kimball APRN.CNP Work Phone: [facility] [place] Comment on above: Myalgias (Primary Dx ); Arthralgia of multiple joints; Positive BING (antinuclear antibody) Start: 10-07-2022 End: 10-07-2022 Emergency department patient visit DR MAVIS SHEPARD MD [facility] Start: 09-27-2022 End: 09-27-2022 Emergency department patient visit CEZAR FRENCH MD [facility] Start: 09-23-2022 End: 09-23-2022 [facility] Start: 09-17-2022 End: 09-17-2022 Emergency department patient visit Dr. Roger Cohen Work Phone: [facility] Start: 08-24-2022 End: 08-24-[address] Roger Cohen Work Phone: [facility] Start: 08-03-2022 End: 08-03-2022 Patient encounter procedure Livia Trivedi APRN.CNP Work Phone: [facility] Comment on above: Acute cough (Primary Dx); URI, acute Start: 08-03-2022 End: 08-03-2022 Subsequent hospital visit by physician [facility] Work Phone: Radiology Comment on above: Acute cough [R05.1] Start: 07-07-2022 End: 07-07-[address] Roger Cohen Work Phone: [facility] Start: 07-06-2022 Non-patient / Non-visit Dr. Mariely Cohen Work Phone: [facility] Start: 06-25-2022 Non-patient / Non-visit Dr. Mariely Cohen Work Phone: [facility] Start: 06-24-2022 End: 06-25-2022 Evaluation and management of inpatient Dr. Roger Cohen Work Phone: [facility] Start: 06-24-2022 Non-patient / Non-visit Dr. Mariely Cohen Work Phone: [facility] Start: 06-23-2022 End: 06-23-2022 Patient encounter procedure Yvonnejosh Eagle APRN.CNP Work Phone: [facility] Comment on above: Viral illness (Prima ry Dx); Sore throat Start: 06-22-2022 End: 06-22-2022 ambulatory FRANCISCO ALVAREZ [facility] Start: 06-21-2022 Non-patient / Non-visit Dr. Mariely Cohen Work Phone: [facility] Start: 06-20-2022 End: 06-20-[address] Roger Cohen Work Phone: [facility] Work Phone: Start: 06-20-2022 End: 06-20-[address] Roger Cohen Work Phone: [facility] Start: 06-20-2022 Non-patient / Non-visit Dr. Mariely Cohen Work Phone: [facility] Start: 06-19-2022 End: 06-20-2022 Evaluation and management of inpatient Emily Jacobs [facility] Start: 06-19-2022 End: 06-20-2022 Evaluation and management of inpatient Emily Jacobs MD Work Phone: [facility] Start: 06-19-2022 Non-patient / Non-visit Dr. Mariely Cohen Work Phone: [facility] Start: 06-18-2022 End: 06-19-[address] Roger Cohen Work Phone: [facility] Work Phone: Start: 06-18-2022 End: 06-19-[address] Roger Cohen Work Phone: [facility] Start: 06-18-2022 End: 06-18-[address] Roger Cohen Work Phone: [facility] Work Phone: Start: 06-18-2022 End: 06-18-[address] Roger Cohen Work Phone: [facility] Start: 06-15-2022 End: 06-15-2022 ambulatory EMILY A [facility] Start: 06-11-2022 End: 06-11-2022 ambulatory [facility] Start: 06-09-2022 End: 06-09-2022 ambulatory THERESA COHEN [facility] Start: 06-04-2022 End: 06-04-[address] Roger Cohen Work Phone: [facility] Start: 06-04-2022 End: 06-04-2022 ambulatory ROGER COHEN [facility] Start: 06-01-2022 End: 06-01-2022 ambulatory [facility] Start: 05-28-2022 End: 05-28-2022 ambulatory ROGER COHEN [facility] Start: 05-27-2022 End: 05-27-[address] Roger Cohen Work Phone: [facility] Start: 05-25-2022 End: 05-25-2022 ambulatory ROGER COHEN [facility] Start: 05-21-2022 End: 05-21-[address] Roger Cohen Work Phone: [facility] Work Phone: Start: 05-21-2022 End: 05-21-[address] Roger Cohen Work Phone: [facility] Start: 05-07-2022 End: 05-07-[address] Roger Cohen Work Phone: [facility] Start: 04-28-2022 End: 04-28-2022 ambulatory ROGER Bentley COHEN [facility] Start: 04-13-2022 End: 04-13-2022 ambulatory EMILY [facility] Start: 04-09-2022 End: 04-09-[address] Roger Cohen Work Phone: [facility] Start: 03-27-2022 End: 03-27-2022 Emergency department patient visit Dr. Roger Cohen Work Phone: [facility] Start: 03-23-2022 End: 03-23-2022 ambulatory [facility] Start: 03-11-2022 End: 03-11-[address] Roger Cohen Work Phone: [facility] Start: 02-12-2022 Non-patient / Non-visit Dr. Mariely Cohen Work Phone: [facility] Start: 02-12-2022 Non-patient / Non-visit Dr. Mariely Cohen Work Phone: [facility] Start: 02-11-2022 Non-patient / Non-visit Dr. Mariely Cohen Work Phone: [facility] Start: 02-11-2022 Non-patient / Non-visit Dr. Mariely Cohen Work Phone: [facility] Start: 02-11-2022 End: 02-12-2022 Evaluation and management of inpatient Dr. Roger [facility] Start: 02-10-2022 End: 02-10-[address] Roger Cohen Work Phone: [facility] Start: 01-27-2022 End: 01-27-[address] Roger Cohen Work Phone: [facility] Start: 01-14-2022 End: 01-14-[address] Roger Cohen Work Phone: [facility] Start: 01-07-2022 End: 01-07-2022 Emergency department patient visit Dr. Roger Cohen Work Phone: [facility] Start: 01-04-2022 End: 01-04-[address] [facility] Start: 01-04-2022 End: 01-04-[address] Roger Cohen Work Phone: [facility] Start: 12-28-2021 End: 12-28-[address] [facility] Start: 12-21-2021 Non-patient / Non-visit Dr. Mariely Cohen Work Phone: [facility] Start: 12-20-2021 End: 12-20-2021 Emergency department patient visit DR RONALDO CANALES MD [facility] Start: 12-15-2021 End: 12-15-2021 Emergency department patient visit Dr. Roger Cohen [facility] Start: 12-11-2021 End: 12-11-[address] [facility] Start: 12-07-2021 End: 12-07-[address] [facility] Start: 12-05-2021 End: 12-05-[address] [facility] Start: 10-09-2021 End: 10-09-2021 Emergency department patient visit Dr. Roger Cohen [facility] Start: 10-07-2021 End: 10-07-2021 Emergency department patient visit Dr. Roger Cohen [facility] Start: 10-07-2021 End: 10-07-2021 Emergency department patient visit FANNY JEAN MD [facility] Start: 07-20-2021 End: 07-20-2021 Subsequent hospital visit by physician [facility] Work Phone: Radiology Comment on above: Pelvic pain [R10.2] Start: 07-10-2021 End: 07-11-2021 Emergency department patient visit Nicolás Calderón MD Work Phone: [facility] Comment on above: Abdominal pain, epig astric (Primary Dx); Pelvic pain Start: 05-11-2021 End: 05-11-2021 Emergency department patient visit Angie Alejandro MD Work Phone: [facility] Comment on above: Strain of lumbar reg ion, initial encounter (Primary Dx) Start: 10-17-2019 End: 10-17-2019 Patient encounter procedure Brad Majano MD Work Phone: [facility] Work Phone: Start: 07-27-2018 End: 03-16-2019 Patient requested procedure Jennifer Christina MD Work Phone: [facility] Procedures Date Procedure Procedure Detail Performing Clinician Start: 03-06-[address] Maria Regan MD Work Phone: Start: 03-06-2025 Urnls dip stick/tabl et reagent auto microscopy Dr. Maria Regan MD Work Phone: Start: 02-18-2025 X-ray of lumbosacral spine Dr. Maria Regan MD Work Phone: Start: 02-08-[address] Nahed Regan MD Work Phone: Start: 11-22-[address] Maria Regan MD Work Phone: Start: 11-22-2024 Urnls dip stick/tabl et reagent auto microscopy Dr. Maria Regan MD Work Phone: Start: 11-22-[address] Maria Regan MD Work Phone: Start: 11-22-2024 Measurement of renal function Dr. Maria Regan MD Work Phone: Comment on above: GFR Calc Start: 11-22-2024 Computed tomography of abdomen and pelvis with intravenous contrast Dr. Maria Regan MD Work Phone: Start: 10-11-2024 STREP A MOLECULAR (POC) To VELAZQUEZ Work Phone: Start: 06-15-2024 Radiologic exam ches t 2 views To VELAZQUEZ Work Phone: Start: 04-27-2024 Radiologic exam ches t 2 views Ricki Lafleur APRN.CONTROL SUPERVISOR Work Phone: Start: 01-23-2024 CT angiography of ne ck vessels Start: 12-10-2022 Mri brain brain stem w/o w/contrast material Kathy Zayas MD Work Phone: Start: 08-03-2022 Radiologic exam ches t 2 views Livia Trivedi PROFESSOR OF ART HISTORY.CONTROL SUPERVISOR Work Phone: Start: 06-23-2022 STREP A MOLECULAR (POC) Yvonne Eagle PROFESSOR OF ART HISTORY.CONTROL SUPERVISOR Work Phone: Start: 06-20-2022 Fibrinogen activity Alis aroldo Isra Patton MD Work Phone: Start: 06-20-2022 PROTIME/INR & PTT Johanna a Isra Patton MD Work Phone: Start: 06-20-2022 Ecg routine ecg w/le ast 12 lds w/i&r Andre Moschella DO Work Phone: Start: 06-19-2022 Ecg routine ecg w/le ast 12 lds w/i&r Jaswinder R Sribu DO Work Phone: Start: 06-19-2022 Antibody screen Emily paz MD Work Phone: Start: 06-19-2022 Iadna multiple organ isms direct probe tq Jaswinder Nandi Proteins DO Work Phone: Start: 06-19-2022 Blood count complete automated Jaswinder R Sribu DO Work Phone: Start: 06-19-2022 Blood typing serolog ic abo Jaswinder Nandi [employer] DO Work Phone: Start: 02-12-2022 Ultrasonography for antepartum monitoring of fetus Dr. Roger Cohen Work Phone: Start: 01-04-[address] Jamin Cohen Work Phone: Start: 10-09-2021 Plain chest X-ray Dr. Amari Cohen Work Phone: Start: 10-07-2021 CT angiography of ch est with contrast Dr. Roger Cohen Work Phone: Start: 10-07-2021 Plain chest X-ray Dr. Amari Cohen Work Phone: Start: 07-20-2021 Radex spine lumbosac ral 2/3 views Mary Jordan PROFESSOR OF ART HISTORY.CONTROL SUPERVISOR Work Phone: Start: 07-10-2021 Us transvaginal Josefa Calderón MD Work Phone: Start: 07-10-2021 Us abdominal real ti me w/image limited Nicolás Calderón MD Work Phone: Start: 07-10-2021 End: 07-10-2021 Comprehensive metabolic panel Nicolás Calderón MD Work Phone: Start: 07-10-2021 Urnls dip stick/tabl et rgnt auto w/o microscopy Nicolás Calderón MD Work Phone: Start: 07-10-2021 Ecg routine ecg w/le ast 12 lds w/i&r Nicolás Calderón MD Work Phone: Start: 05-11-2021 Urnls dip stick/tabl et rgnt auto w/o microscopy Angie Alejandro MD Work Phone: Start: 05-11-2021 Comprehensive metabo lic panel Angie Alejandro MD Work Phone: Start: 10-17-2019 End: 10-17-2019 Blood pressure within normal parameters - no follow-up required Brad Majano MD Work Phone: Start: 10-17-2019 End: 10-17-2019 BMI documented as above normal parameters - follow-up documented Brad Majano MD Work Phone: Start: 10-17-2019 End: 10-17-2019 Documentation of current medications Brad Majano MD Work Phone: Start: 10-17-2019 End: 10-17-2019 Injection - betamethasone acetate 3 mg and betamethasone sodium phosphate 3 mg Brad Majano MD Work Phone: Start: 10-17-2019 End: 10-17-2019 Injection 1 tendon sheath/ligament aponeurosis Brad Majano MD Work Phone: Start: 10-17-2019 End: 10-17-2019 Pain assessment documented as positive - follow-up documented Brad Majano MD Work Phone: Start: 10-17-2019 End: 10-17-2019 Pt tobacco screen rcvd tlk Brad Majano MD Work Phone: Start: 03-16-2019 Adult depression screening assessment Yvonne Eagle PROFESSOR OF ART HISTORY.CONTROL SUPERVISOR Work Phone: Start: 06-26-2015 Microscopic observat ion [Identifier] in Cervix by Cyto stain Nicolás Calderón MD Work Phone: Bacteria identified in Blood by Culture Dr. Roger Cohen Work Phone: Group B Streptococcu s Culture Dr. Roger Cohen Work Phone: H/O: surgery Status post bila teral salpingectomy Dr. Maria Regan MD Work Phone: None (qualifier value) FANNY JEAN MD SARS-CoV-2 & FLU Ant igen (Rapid) Dr. Roger Cohen Work Phone: Urine culture Dr. Roger Cohen Work Phone: Viral antigen assay Dr. Jonnie Cohen Work Phone: NEGATED: Highlighted rowStart: 10-17-2019 End: 10-17-2019 Documentation of current medications Laura Bettencourt LPN NEGATED: Highlighted rowStart: 10-17-2019 End: 10-17-2019 Smoking cessation education Laura Bettencourt LPN Plan of Treatment Date Care Activity Detail Author Start: 2052 Pneumococcal 0-64 years Vaccine (2 of 2 - PPSV23) Pneumococcal 0-64 years Vaccine (2 of 2 - PPSV23) [facility] Work Phone: Start: 05-21-2032 Urine microalbumin profile [facility] Start: 02-14-2026 DTaP/Tdap/Td vaccine (2 - Td or Tdap) DTaP/Tdap/Td vaccine (2 - Td or Tdap) [facility] Start: 2025 Annual PCP Team Chronic Disease Visit Annual PCP Team Chronic Disease Visit [facility] Start: 07-12-2025 Annual PCP Team Chronic Disease Visit Annual PCP Team Chronic Disease Visit [facility] Start: 07-04-2025 Annual PCP Team Chronic Disease Visit Annual PCP Team Chronic Disease Visit [facility] Start: 06-19-2025 Annual PCP Team Chronic Disease Visit Annual PCP Team Chronic Disease Visit [facility] Start: 06-06-2025 HPV TESTING HPV TESTING [facility] Start: 06-06-2025 PAP TESTING PAP TESTING [facility] Start: 06-06-2025 Screening for malignant neoplasm of cervix [facility] Start: 03-28-2025 Annual PCP Team Chronic Disease Visit Annual PCP Team Chronic Disease Visit [facility] Start: 03-06-2025 [facility] Start: 02-21-2025 Annual PCP Team Chronic Disease Visit Annual PCP Team Chronic Disease Visit [facility] Start: 02-21-2025 End: 02-21-2025 Patient encounter procedure 02/21/2025 10:20 AM EDT Office Visit [facility] ([place]) [address] [place] [address] Jennifer Werner MD [address] [place] [address] ED follow up back pain [facility] ([place]) Comment on above: ED follow up back pain Start: 02-18-2025 [facility] Start: 01-23-2025 End: 01-23-2025 Patient encounter procedure 01/23/2025 9:00 AM EDT Office Visit [facility] ([place]) [address] [place], [place] [address] Jennifer Werner MD [address] [place] [address] 10 week depression/anxiety (overdue for physical) [facility] Comment on above: 10 week depression/anxiety (overdue for physical) Start: 12-25-2024 End: 12-25-2024 Patient encounter procedure 12/25/2024 3:20 PM EDT Office Visit [facility] ([place]) [address] [place] [address] Jennifer Werner MD [address] [place] [address] 10 week depression/anxiety (overdue for physical) [facility] ([place]) Comment on above: 10 week depression/anxiety (overdue for physical) Start: 12-21-2024 End: 12-21-2024 Patient encounter procedure 12/21/2024 9:20 AM EDT Office Visit [facility] General Rheumatology and Arth[facility] [address] [place] [address] Maria Luisa Tyler MD [address] [place] [address] 6 mo f[facility] Comment on above: 6 mo f/up post Fortino. pe Start: 12-15-2024 Annual PCP Team Chronic Disease Visit Annual PCP Team Chronic Disease Visit [facility] Start: 11-22-2024 [facility] Start: 2024 End: 01-15-2025 25-hydroxyvitamin D3 [Mass/volume] in Serum or Plasma VITAMIN D 25 HYDROXY Lab Routine Encounter for routine adult health examination without abnormal findings Expected: 2024, Expires: 01/15/2025 [facility] Comment on above: Expected: 2024, Expires: Start: 2024 End: 01-15-2025 CBC panel - Blood by Automated count COMPLETE BLOOD COUNT Lab Routine Encounter for routine adult health examination without abnormal findings Expected: 2024, Expires: 01/15/2025 [facility] Comment on above: Expected: 2024, Expires: Start: 2024 End: 01-15-2025 Comprehensive metabolic 2000 panel - Serum or Plasma COMPREHENSIVE METABOLIC PANEL Lab Routine Bipolar disorder, current episode mixed, moderate (HCC) Generalized anxiety disorder 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 Encounter for routine adult health examination without abnormal findings Mixed hyperlipidemia Expected: 2024, Expires: 01/15/2025 [facility] Work Phone: Comment on above: Expected: 2024, Expires: Start: 2024 End: 01-15-2025 Hemoglobin A1c in Blood HEMOGLOBIN A1C Lab Routine 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 Encounter for routine adult health examination without abnormal findings Screening for diabetes mellitus Expected: 2024, Expires: 01/15/2025 [facility] Comment on above: Expected: 2024, Expires: Start: 2024 End: 01-15-2025 Lipid 1996 panel - Serum or Plasma LIPID PANEL BASIC Lab Routine 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 Encounter for routine adult health examination without abnormal findings Mixed hyperlipidemia Expected: 2024, Expires: 01/15/2025 [facility] Comment on above: Expected: 2024, Expires: Start: 2024 End: 01-15-2025 Thyrotropin [Units/volume] in Serum or Plasma THYROID STIMULATING HORMONE Lab Routine Bipolar disorder, current episode mixed, moderate (HCC) Generalized anxiety disorder 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 Encounter for routine adult health examination without abnormal findings Expected: 2024, Expires: 01/15/2025 [facility] Comment on above: Expected: 2024, Expires: Start: 2024 End: 2024 Patient encounter procedure [facility] ([place]) Comment on above: Return in about 7 weeks (around 08/28/20) for Depression/Anxiety (overdue for physical) Start: 10-14-2024 Annual PCP Team Chronic Disease Visit Annual PCP Team Chronic Disease Visit [facility] Start: 09-11-2024 Urine microalbumin profile DTAP,TDAP,TD (1 - Tdap) [facility] Comment on above: Postponed from 07/04/2014 (Postponed To Appropriate Date) Start: 08-28-2024 End: 08-28-2024 Patient encounter procedure [facility]) Comment on above: Follow up Return in about 7 we eks (around 08/28/2024) for Depression/Anxiety Start: 08-09-2024 Annual PCP Team Chronic Disease Visit Annual PCP Team Chronic Disease Visit [facility] Start: 07-12-2024 End: 07-12-2024 Patient encounter procedure 07/12/2024 9:00 AM EDT Office Visit [facility]) [address] [place], [place] [address] Jennifer Christina MD [address] [place] [address] Xanax refill request [facility]) Comment on above: Xanax refill request Start: 07-04-2024 End: 07-04-2024 [facility] 07/04/2024 4:00 PM EDT [facility]) [address] [place], [place] [id number] Noelle Cummins, PROFESSOR OF ART HISTORY.CONTROL SUPERVISOR [address] [place] [address] requesting 10 day supply of xanax until she sees Dr. Werner on 07/12/24, refill was refused. [facility]) Comment on above: requesting 10 day supply of xanax until she sees Dr. Werner on 07/12/24, refill was refused. Start: 07-01-2024 Annual PCP Team Chronic Disease Visit Annual PCP Team Chronic Disease Visit [facility] Start: 06-21-2024 End: 06-21-2024 ambulatory 06/21/2024 7:00 AM EDT [facility] [address] [place], [place] [id number] Fortino Tejeda PA-C [address] [place], [place] [id number] Have a Fibro Flare [facility] Comment on above: Have a Fibro Flare Start: 06-03-2024 Covid-19 Vaccine ( season) Covid-19 Vaccine () [facility] Start: 06-03-2024 Covid-19 Vaccine () Covid-19 Vaccine () [facility] Start: 06-03-2024 Influenza vaccination Influenza Vaccine (#1) [facility] Start: 03-28-2024 End: 03-28-2024 Patient encounter procedure 03/28/2024 3:40 PM EDT Office Visit [facility] ([place]) [address] [place], [place] [id number] Mehran Cooper, PROFESSOR OF ART HISTORY.CONTROL SUPERVISOR [address] [place], [place] [id number] Pain [facility] Family [facility] ([place]) Comment on above: Pain Start: 03-03-2024 ANNUAL PCP TEAM CHRONIC DISEASE VISIT ANNUAL PCP TEAM CHRONIC DISEASE VISIT [facility] Start: 02-22-2024 End: 02-22-2024 Patient encounter procedure 02/22/2024 2:20 PM EDT [facility] ([place]) [address] [place], [place] [address] Jennifer Christina MD [address] [place], [place] [id number] Life changes [facility] ([place]) Comment on above: Life changes Start: 02-08-2024 ANNUAL PCP TEAM CHRONIC DISEASE VISIT ANNUAL PCP TEAM CHRONIC DISEASE VISIT [facility] Start: 01-23-2024 [facility] Start: 01-12-2024 End: 04-12-2024 MISC SEND OUT TST 1 MISC SEND OUT TST 1 Lab Routine Family history of developmental delay Expected: 01/12/2024, Expires: 04/12/2024 [facility] Work Phone: Comment on above: Expected: 01/12/2024, Expires: 4 Start: 12-22-2023 ANNUAL PCP TEAM CHRONIC DISEASE VISIT ANNUAL PCP TEAM CHRONIC DISEASE VISIT [facility] Start: 11-01-2023 ANNUAL PCP TEAM CHRONIC DISEASE VISIT ANNUAL PCP TEAM CHRONIC DISEASE VISIT [facility] Start: 10-20-2023 ANNUAL PCP TEAM CHRONIC DISEASE VISIT ANNUAL PCP TEAM CHRONIC DISEASE VISIT [facility] Start: 08-16-2023 End: 11-15-2023 Lipid 1996 panel - Serum or Plasma LIPID PANEL BASIC Lab Routine Mixed hyperlipidemia Expected: 08/16/2023, Expires: 11/15/2023 [facility] Work Phone: Comment on above: Expected: 08/16/2023, Expires: 4 Start: 06-06-2023 Screening for malignant neoplasm of cervix Cervical Cancer Screening [facility] Start: 06-03-2023 Covid-19 Vaccine ( season) Covid-19 Vaccine () [facility] Start: 06-03-2023 Influenza vaccination [facility] Start: 01-20-2023 End: 03-22-2023 Lipid 1996 panel - Serum or Plasma LIPID PANEL BASIC Lab Routine Mixed hyperlipidemia Expected: 01/20/2023, Expires: 03/22/2023 [facility] Work Phone: Comment on above: Expected: 01/20/2023, Expires: 3 Start: 01-20-2023 End: 03-22-2023 Thyrotropin [Units/volume] in Serum or Plasma TSH BLD Lab Routine Generalized anxiety disorder Mixed hyperlipidemia Expected: 01/20/2023, Expires: 03/22/2023 [facility] Work Phone: Comment on above: Expected: 01/20/2023, Expires: Start: 11-01-2022 End: 01-01-2023 Thyrotropin [Units/volume] in Serum or Plasma TSH BLD Lab Routine Mixed hyperlipidemia Generalized anxiety disorder Expected: 11/01/2022, Expires: 01/01/2023 [facility] Work Phone: Comment on above: Expected: 11/01/2022, Expires: 3 Start: 11-01-2022 End: 01-01-2023 Thyroxine (T4) free [Mass/volume] in Serum or Plasma T4 FREE/FREE THYROX Lab Routine Generalized anxiety disorder Expected: 11/01/2022, Expires: 01/01/2023 [facility] Work Phone: Comment on above: Expected: 11/01/2022, Expires: Start: 11-01-2022 End: 01-01-2023 Triiodothyronine (T3) [Mass/volume] in Serum or Plasma T3 BLD Lab Routine Generalized anxiety disorder Expected: 11/01/2022, Expires: 01/01/2023 [facility] Work Phone: Comment on above: Expected: 11/01/2022, Expires: 3 Start: 10-27-2022 End: 12-27-2022 25-hydroxyvitamin D3 [Mass/volume] in Serum or Plasma VITAMIN D 25 HYDROXY Lab Routine Pain in joint, multiple sites Malaise and fatigue Expected: 10/27/2022, Expires: 12/27/2022 [facility] Work Phone: Comment on above: Expected: 10/27/2022, Expires: Start: 10-27-2022 End: 12-27-2022 C reactive protein [Mass/volume] in Serum or Plasma C-REACTIVE PROTEIN (CRP) Lab Routine Pain in joint, multiple sites Malaise and fatigue Expected: 10/27/2022, Expires: 12/27/2022 [facility] Work Phone: Comment on above: Expected: 10/27/2022, Expires: 3 Start: 10-27-2022 End: 12-27-2022 CBC W Auto Differential panel - Blood CBC + DIFF Lab Routine Pain in joint, multiple sites Malaise and fatigue Expected: 10/27/2022, Expires: 12/27/2022 [facility] Work Phone: Comment on above: Expected: 10/27/2022, Expires: 3 Start: 10-27-2022 End: 12-27-2022 Cobalamin (Vitamin B12) [Mass/volume] in Serum or Plasma VITAMIN B12 BLOOD Lab Routine Pain in joint, multiple sites Malaise and fatigue Expected: 10/27/2022, Expires: 12/27/2022 [facility] Work Phone: Comment on above: Expected: 10/27/2022, Expires: 3 Start: 10-27-2022 End: 12-27-2022 Comprehensive metabolic 2000 panel - Serum or Plasma COMP METABOLIC PANEL Lab Routine Pain in joint, multiple sites Malaise and fatigue Expected: 10/27/2022, Expires: 12/27/2022 [facility] Work Phone: Comment on above: Expected: 10/27/2022, Expires: 3 Start: 10-27-2022 End: 12-27-2022 Creatine kinase [Enzymatic activity/volume] in Serum or Plasma CK CREATINE KINASE Lab Routine Pain in joint, multiple sites Malaise and fatigue Expected: 10/27/2022, Expires: 12/27/2022 [facility] Work Phone: Comment on above: Expected: 10/27/2022, Expires: 3 Start: 10-27-2022 End: 12-27-2022 Creatinine [Mass/volume] in Urine collected for unspecified duration CREATININE RANDOM UR Lab Routine Pain in joint, multiple sites Malaise and fatigue Expected: 10/27/2022, Expires: 12/27/2022 [facility] Work Phone: Comment on above: Expected: 10/27/2022, Expires: 3 Start: 10-27-2022 End: 12-27-2022 Cyclic citrullinated peptide IgG Ab [Units/volume] in Serum or Plasma CCP ANTIBODY IGG Lab Routine Pain in joint, multiple sites Malaise and fatigue Expected: 10/27/2022, Expires: 12/27/2022 [facility] Work Phone: Comment on above: Expected: 10/27/2022, Expires: 3 Start: 10-27-2022 End: 12-27-2022 DNA ANTIBODY DS BLD DNA ANTIBODY DS BLD Lab Routine Pain in joint, multiple sites Malaise and fatigue Expected: 10/27/2022, Expires: 12/27/2022 [facility] Work Phone: Comment on above: Expected: 10/27/2022, Expires: 3 Start: 10-27-2022 End: 12-27-2022 DNA double strand Ab [Presence] in Serum by Immunofluorescence (IF) Crithidia luciliae CRITHIDIA LUCILIAE Lab Routine Pain in joint, multiple sites Malaise and fatigue Expected: 10/27/2022, Expires: 12/27/2022 [facility] Work Phone: Comment on above: Expected: 10/27/2022, Expires: 3 Start: 10-27-2022 End: 12-27-2022 Erythrocyte sedimentation rate SED RATE WESTERGREN Lab Routine Pain in joint, multiple sites Malaise and fatigue Expected: 10/27/2022, Expires: 12/27/2022 [facility] Work Phone: Comment on above: Expected: 10/27/2022, Expires: 3 Start: 10-27-2022 End: 12-27-2022 Ferritin [Mass/volume] in Serum or Plasma FERRITIN BLD Lab Routine Pain in joint, multiple sites Malaise and fatigue Expected: 10/27/2022, Expires: 12/27/2022 [facility] Work Phone: Comment on above: Expected: 10/27/2022, Expires: 3 Start: 10-27-2022 End: 12-27-2022 Iron and Iron binding capacity panel - Serum or Plasma IRON + TIBC Lab Routine Pain in joint, multiple sites Malaise and fatigue Expected: 10/27/2022, Expires: 12/27/2022 [facility] Work Phone: Comment on above: Expected: 10/27/2022, Expires: 3 Start: 10-27-2022 End: 12-27-2022 Protein [Mass/volume] in Urine PROTEIN RANDOM UR Lab Routine Pain in joint, multiple sites Malaise and fatigue Expected: 10/27/2022, Expires: 12/27/2022 [facility] Work Phone: Comment on above: Expected: 10/27/2022, Expires: 3 Start: 10-27-2022 End: 12-27-2022 Rheumatoid factor [Units/volume] in Serum or Plasma RHEUMATOID FACTOR BL Lab Routine Pain in joint, multiple sites Malaise and fatigue Expected: 10/27/2022, Expires: 12/27/2022 [facility] Work Phone: Comment on above: Expected: 10/27/2022, Expires: 3 Start: 10-27-2022 End: 12-27-2022 Ribonucleoprotein extractable nuclear Ab [Units/volume] in Serum SOLAR MAINTENANCE TECHNICIAN ANTIBODY BLOOD Lab Routine Pain in joint, multiple sites Malaise and fatigue Expected: 10/27/2022, Expires: 12/27/2022 [facility] Work Phone: Comment on above: Expected: 10/27/2022, Expires: 3 Start: 10-27-2022 End: 12-27-2022 SJOGREN ABS SSA/SSB SJOGREN ABS SSA/SSB Lab Routine Pain in joint, multiple sites Malaise and fatigue Expected: 10/27/2022, Expires: 12/27/2022 [facility] Work Phone: Comment on above: Expected: 10/27/2022, Expires: 3 Start: 10-27-2022 End: 12-27-2022 Do extractable nuclear IgG Ab [Units/volume] in Serum DO IGG AB Lab Routine Pain in joint, multiple sites Malaise and fatigue Expected: 10/27/2022, Expires: 12/27/2022 [facility] Work Phone: Comment on above: Expected: 10/27/2022, Expires: 3 Start: 10-27-2022 End: 12-27-2022 Urinalysis complete panel - Urine URINALYSIS WITH MICROSCOPIC, REFLEX CULTURE Lab Routine Pain in joint, multiple sites Malaise and fatigue Expected: 10/27/2022, Expires: 12/27/2022 [facility] Work Phone: Comment on above: Expected: 10/27/2022, Expires: 3 Start: 10-03-2022 DEPRESSION ASSESSMENT DEPRESSION ASSESSMENT [facility] Start: 08-03-2022 End: 08-17-2022 Influenza virus A and B RNA and SARS-CoV-2 (COVID-19) N gene panel - Respiratory specimen by FRANCESCO with probe detection COVID WITH FLUA+B, ROUTINE Microbiology Routine Acute cough URI, acute Expected: 08/03/2022, Expires: 08/17/2022 [facility] Work Phone: Comment on above: Expected: 08/03/2022, Expires: 2 Start: 06-25-2022 Application of abdominal corset [facility] Work Phone: Start: 06-25-2022 Patient discharge [facility] Work Phone: Start: 06-25-2022 Administration of blood product [facility] Work Phone: Start: 06-25-2022 [facility] Work Phone: Start: 06-25-2022 Consultation [facility] Work Phone: Start: 06-24-2022 Notification of physician [facility] Work Phone: Start: 06-24-2022 Post-anesthesia assessment [facility] Work Phone: Start: 06-24-2022 [facility] Work Phone: Start: 06-24-2022 Following clinical pathway protocol [facility] Work Phone: Start: 06-24-2022 Application of abdominal corset [facility] Work Phone: Start: 06-24-2022 Administration of medication [facility] Work Phone: Start: 06-24-2022 Ambulation therapy management [facility] Work Phone: Start: 06-24-2022 Application of device [facility] Work Phone: Start: 06-24-2022 Assessment of risk of venous thromboembolism [facility] Work Phone: Start: 06-24-2022 Catheterization of vein [facility] Work Phone: Start: 06-24-2022 Deep breathing and coughing exercises [facility] Work Phone: Start: 06-24-2022 Exercises [facility] Work Phone: Start: 06-24-2022 Incentive spirometry [facility] Work Phone: Start: 06-24-2022 Measuring intake and output [facility] Work Phone: Start: 06-24-2022 Procedure discontinued [facility] Work Phone: Start: 06-24-2022 Provision of activity privileges [facility] Work Phone: Start: 06-24-2022 Vital signs measurements [facility] Work Phone: Start: 06-24-2022 Wound care [facility] Work Phone: Start: 06-24-2022 End: 06-24-2022 [facility] Work Phone: Start: 06-24-2022 Post-anesthesia assessment [facility] Work Phone: Start: 06-24-2022 End: 06-24-2022 Notification of physician [facility] Work Phone: Start: 06-24-2022 Admission procedure [facility] Work Phone: Start: 06-24-2022 End: 06-24-2022 Application of intermittent pneumatic compression device [facility] Work Phone: Start: 06-24-2022 External monitor surveillance [facility] Work Phone: Start: 06-24-2022 Preoperative care [facility] Work Phone: Start: 06-24-2022 End: 06-24-2022 [facility] Work Phone: Start: 06-24-2022 Nonstress test [facility] Work Phone: Start: 06-24-2022 Obstetric monitoring [facility] Work Phone: Start: 06-24-2022 Vital signs measurements [facility] Work Phone: Start: 06-24-2022 End: 06-24-2022 [facility] Work Phone: Start: 06-24-2022 [facility] Work Phone: Start: 06-23-2022 End: 07-07-2022 Influenza virus A and B RNA and SARS-CoV-2 (COVID-19) N gene panel - Respiratory specimen by FRANCESCO with probe detection [facility] Work Phone: Comment on above: Expected: 06/23/2022, Expires: Start: 06-20-2022 Nonstress test [facility] Work Phone: Start: 06-20-2022 Obstetric monitoring [facility] Work Phone: Start: 06-20-2022 Vital signs measurements [facility] Work Phone: Start: 06-20-2022 [facility] Work Phone: Start: 06-20-2022 Patient discharge [facility] Work Phone: Start: 06-19-2022 Patient discharge [facility] Work Phone: Start: 06-18-2022 Obstetric monitoring [facility] Work Phone: Start: 06-18-2022 Vital signs measurements [facility] Work Phone: Start: 06-18-2022 [facility] Work Phone: Start: 06-18-2022 Cul prsmptv pthgnc organism scrn w/colony estimj CULTURE SCREEN ONLY [facility] Work Phone: Start: 06-18-2022 Iadna streptococcus group b amplified probe tq STREP B DNA AMP PROBE [facility] Work Phone: Start: 06-18-2022 Iv infusion hydration each additional hour HYDRATE IV INFUSION ADD-ON [facility] Work Phone: Start: 06-18-2022 Ther proph/dx njx iv push single/1st sbst/drug THER/PROPH/DIAG INJ IV PUSH [facility] Work Phone: Start: 06-18-2022 Therapeutic prophylactic/dx injection subq/im THER/PROPH/DIAG INJ SC/IM [facility] Work Phone: Start: 06-18-2022 End: 06-18-2022 Nonstress test [facility] Work Phone: Start: 06-18-2022 Obstetric monitoring [facility] Work Phone: Start: 06-18-2022 Vital signs measurements [facility] Work Phone: Start: 06-18-2022 End: 06-19-2022 [facility] Work Phone: Start: 06-18-2022 Patient discharge [facility] Work Phone: Start: 06-03-2022 Influenza vaccination [facility] Start: 02-12-2022 Patient discharge [facility] Work Phone: Start: 02-12-2022 Ultrasonography for antepartum monitoring of fetus OB Limited (No Biometrics) [facility] Work Phone: Start: 02-12-2022 Consultation [facility] Work Phone: Start: 02-11-2022 Ambulation without limitation [facility] Work Phone: Start: 02-11-2022 Assessment of risk of venous thromboembolism [facility] Work Phone: Start: 02-11-2022 Insertion of catheter into peripheral vein [facility] Work Phone: Start: 02-11-2022 Providing care according to standard [facility] Work Phone: Start: 02-11-2022 Referral to supervisor epoxy fabrication and it security consultant [facility] Work Phone: Start: 02-11-2022 [facility] Work Phone: Start: 02-11-2022 Following clinical pathway protocol [facility] Work Phone: Start: 02-11-2022 Admission procedure [facility] Work Phone: Start: 02-11-2022 Bacteria identified in Blood by Culture Blood Culture [facility] Work Phone: Start: 01-04-2022 Iv infusion hydration each additional hour HYDRATE IV INFUSION ADD-ON [facility] Work Phone: Start: 01-04-2022 Ther proph/dx njx iv push single/1st sbst/drug THER/PROPH/DIAG INJ IV PUSH [facility] Work Phone: Start: 01-04-2022 Therapeutic injection iv push each new drug TX/PRO/DX INJ NEW DRUG ADDON [facility] Work Phone: Start: 12-28-2021 Iv infusion therapy/prophylaxis /dx 1st to 1 hr THER/PROPH/DIAG IV INF INIT [facility] Work Phone: Start: 12-28-2021 Therapeutic injection iv push each new drug TX/PRO/[facility] Work Phone: Start: 12-28-2021 Therapeutic prophylactic/dx injection subq/im THER/PROPH/DIAG INJ SC/IM [facility] Work Phone: Start: 10-03-2021 DEPRESSION ASSESSMENT DEPRESSION ASSESSMENT [facility] Start: 08-20-2021 COVID-19 VACCINE (3 - Booster for Pfizer series) COVID-19 VACCINE (3 - Booster for Pfizer series) [facility] Start: 08-20-2021 COVID-19 VACCINE (3 - Pfizer series) COVID-19 VACCINE (3 - Pfizer series) [facility] Start: 06-03-2021 Influenza vaccination Flu vaccine (#1) [facility] Work Phone: Start: 03-16-2020 Adult depression screening assessment DEPRESSION SCREENING [facility] Start: 11-07-2019 End: 11-07-2019 Appointment Appointment [facility] Work Phone: Start: 10-17-2019 End: 10-17-2019 Appointment [facility] Work Phone: Start: 06-26-2018 Screening for malignant neoplasm of cervix [facility] Start: 2017 Screening for malignant neoplasm of cervix HPV (without or with Pap) [facility] Start: 01-10-2016 PNEUMOCOCCAL (2 - PCV) PNEUMOCOCCAL (2 - PCV) [facility] Start: 01-10-2016 Pneumococcal vaccination [facility] Start: 2006 Hepatitis B Vaccine (1 of 3 - 19+ 3-dose series) Hepatitis B Vaccine (1 of 3 - 19+ 3-dose series) [facility] Start: 2005 HEPATITIS C SCREENING HEPATITIS C SCREENING [facility] Start: 2005 Hepatitis C screening Hepatitis C Screening [facility] Start: 2005 SPIROMETRY SPIROMETRY [facility] Start: 1999 COVID-19 Vaccine (1) COVID-19 Vaccine (1) [facility] Work Phone: Start: 1999 Depression Screen Depression Screen [facility] Start: 1988 Varicella vaccine (1 of 2 - 2-dose childhood series) Varicella vaccine (1 of 2 - 2-dose childhood series) [facility] Start: 04-15-1988 COVID-19 Vaccine (#1) COVID-19 Vaccine (#1) [facility] Start: 1987 HEPATITIS B (1 of 3 - 3-dose series) HEPATITIS B (1 of 3 - 3-dose series) [facility] Start: 1987 Hepatitis B Vaccine (1 of 3 - 3-dose series) Hepatitis B Vaccine (1 of 3 - 3-dose series) [facility] Bacteria identified in Urine by Culture Urine Culture [facility] Work Phone: COVID & INFLUENZA A/ B & RSV PCR, ROUTINE COVID & INFLUENZA A/B & RSV PCR, ROUTINE Microbiology Routine Viral URI with cough Ordered: 06/20/2024 [facility] Work Phone: Comment on above: Ordered: 06/20/2024 COVID & INFLUENZA A/ B & RSV PCR, ROUTINE COVID & INFLUENZA A/B & RSV PCR, ROUTINE Microbiology Routine URI, acute Ordered: 07/09/2024 [facility] Work Phone: Comment on above: Ordered: 07/09/2024 COVID & INFLUENZA A/ B & RSV PCR, ROUTINE COVID & INFLUENZA A/B & RSV PCR, ROUTINE Microbiology Routine Sore throat URI, acute 10/11/2024 7:59 PM EST [facility] Work Phone: End: 06-19-2022 Culture, Urine [facility] Work Phone: Comment on above: One Time for 1 Occurrences starting 06/03 until 06/19/2022 EKG 12 Lead EKG 12 Lead ECG STAT 07/10/2021 8:38 PM EDT [facility] Work Phone: EKG 12 Lead EKG 12 Lead ECG STAT 06/19/2022 10:04 PM EDT [facility] Work Phone: EKG 12 Lead EKG 12 Lead ECG STAT 06/20/2022 9:25 AM EDT [facility] Work Phone: Erythrocyte mean corpuscular volume determination [facility] End: 06-20-2022 nonstress test nonstress test OB Routine One Time for 1 Occurrences starting 06/20/2022 until 06/20/2022 [facility] Work Phone: Comment on above: One Time for 1 Occurrences starting 06/03 until 06/20/2022 End: 06-19-2022 Group B Strep, PCR [facility] Work Phone: Comment on above: One Time for 1 Occurrences starting 06/03 until 06/19/2022 Group B Streptococcu s Culture Group B Streptococcus Culture [facility] Work Phone: Hematocrit [Volume Fraction] of Blood [facility] Hemoglobin [Mass/vol ume] in Blood [facility] Leukocytes [#/volume ] in Blood [facility] Mean corpuscular hem oglobin concentration determination [facility] Mean corpuscular hem oglobin determination [facility] End: 12-12-2023 Mri brain brain stem w/o w/contrast material MRI BRAIN WO/W IVCON Radiology Routine New daily persistent headache Mixed headache Medication overuse headache 1 Occurrences starting 11/12/2022 until 12/12/2023 [facility] Work Phone: Comment on above: 1 Occurrences starting 11/12/2022 until 12/12/2023 Neutrophil count [facility] Neutrophil percent differential count [facility] Nonrebreather mask oxygen Nonreb reather mask oxygen Respiratory Care Routine As directed - RT (PRN) until discontinued starting 06/19/2022 [facility] Work Phone: Comment on above: As directed - RT (PRN) until discontinue d starting 06/19/2022 Oxygen therapy [[facility] Data Set] Initiate Oxygen Therapy Protocol while on epidural Respiratory Care Routine As Needed until discontinued starting 06/19/2022 [facility] Work Phone: Comment on above: As Needed until discontinued starting Patient Education [facility] Work Phone: Patient referral [facility] Work Phone: Platelets [#/volume] in Blood [facility] Red blood cell count [facility] Red cell distributio n width determination [facility] Urine culture Urine Culture [facility] Work Phone: End: 06-21-2022 US DOPPLER UMBILICAL ARTERY US DOPPLER UMBILICAL ARTERY Imaging Routine Once for 1 Occurrences starting 06/21/2022 until 06/21/2022 [facility] Work Phone: Comment on above: Once for 1 Occurrences starting 06/21/20 until 06/21/2022 End: 06-21-2022 US BIOPHYSICAL PROFILE WO NON STRESS TESTING US BIOPHYSICAL PROFILE WO NON STRESS TESTING Imaging Routine Once for 1 Occurrences starting 06/21/2022 until 06/21/2022 [facility] Work Phone: Comment on above: Once for 1 Occurrences starting 06/21/20 until 06/21/2022 End: 07-21-2025 XR Ankle - left AP and Lateral and oblique XR ANKLE GENERAL 3V AP/LAT/OBL LEFT Radiology Routine Arthralgia, unspecified joint 1 Occurrences starting 06/21/2024 until 07/21/2025 [facility] Comment on above: 1 Occurrences starting 06/21/2024 until 07/21/2025 XR Ankle - left AP a nd Lateral and oblique XR ANKLE GENERAL 3V AP/LAT/OBL LEFT Radiology Routine Arthralgia, unspecified joint 07/16/2024 1:17 PM T [facility] End: 07-21-2025 XR Ankle - right AP and Lateral and oblique XR ANKLE GENERAL 3V AP/LAT/OBL RIGHT Radiology Routine Arthralgia, unspecified joint 1 Occurrences starting 06/21/2024 until 07/21/2025 [facility] Comment on above: 1 Occurrences starting 06/21/2024 until 07/21/2025 XR Ankle - right AP and Lateral and oblique XR ANKLE GENERAL 3V AP/LAT/OBL RIGHT Radiology Routine Arthralgia, unspecified joint 07/16/2024 1:17 PM T [facility] End: 07-21-2025 XR Knee AP and Lateral and [facility] Work Phone: Comment on above: 1 Occurrences starting 06/21/2024 until 07/21/2025 XR Knee AP and Later al and [facility] Work Phone: [facility] Immunizations Immunization Date Immunization Notes Care Provider [facility] 07-12-2024 influenza, seasonal, injectable Jennifer Christina MD Work Phone: [facility] 08-09-2023 influenza, injectabl e, quadrivalent, contains preservative Jennifer Christina MD Work Phone: [facility] 08-09-2023 influenza virus vacc ine, unspecified formulation Ricki Lafleur PROFESSOR OF ART HISTORY.CONTROL SUPERVISOR Work Phone: [facility] 06-25-2022 influenza, injectabl e, quadrivalent, preservative free Jennifer Christina MD Work Phone: [facility] 06-25-2022 influenza, seasonal, injectable Dr. Roger Cohen Work Phone: [facility] 06-25-2022 influenza virus vacc ine, unspecified formulation Jennifer Christina MD Work Phone: [facility] 05-21-2022 tetanus toxoid, redu howard diphtheria toxoid, and acellular pertussis vaccine, adsorbed Dr. Roger Cohen Work Phone: [facility] 10-19-2021 influenza, injectabl e, quadrivalent, contains preservative Yvonne Eagle PROFESSOR OF ART HISTORY.CONTROL SUPERVISOR Work Phone: [facility] Work Phone: 06-27-2020 influenza, injectabl e, quadrivalent, contains preservative Yvonne Eagle PROFESSOR OF ART HISTORY.CONTROL SUPERVISOR Work Phone: [facility] 09-19-2019 influenza, injectabl e, quadrivalent, contains preservative Yvonne Eagle PROFESSOR OF ART HISTORY.CONTROL SUPERVISOR Work Phone: [facility] Work Phone: 06-15-2017 Influenza, injectabl e, Madin Vicky Canine Kidney, preservative free, quadrivalent Maria Luisa Tyler MD Work Phone: [facility] 06-03-2017 influenza nasal, unspecified formulation Maria Luisa Tyler MD Work Phone: [facility] 06-03-2017 influenza virus vacc ine, unspecified formulation Angie Alejandro MD Work Phone: [facility] Work Phone: 02-16-2016 measles, mumps and rubella virus vaccine Angie Alejandro MD Work Phone: [facility] 02-15-2016 tetanus toxoid, redu howard diphtheria toxoid, and acellular pertussis vaccine, adsorbed Angie Alejandro MD Work Phone: [facility] 01-09-2015 pneumococcal polysaccharide vaccine, 23 valent Angie Alejandro MD Work Phone: [facility] Work Phone: 07-03-2014 TD(adult) unspecifie d formulation Maria Luisa Tyler MD Work Phone: [facility] 07-03-2014 Td, unspecified formulation Angie Alejandro MD Work Phone: [facility] Work Phone: 07-03-2014 tetanus and diphther ia toxoids, adsorbed, preservative free, for adult use (2 Lf of tetanus toxoid and 2 Lf of diphtheria toxoid) Yvonne Eagle PROFESSOR OF ART HISTORY.CONTROL SUPERVISOR Work Phone: [facility] Work Phone: 07-03-2009 RHO(D) immune globul in- IV or IM Yvonne Eagle PROFESSOR OF ART HISTORY.CONTROL SUPERVISOR Work Phone: [facility] Work Phone: Payers Date Payer Category Payer Self-pay [id number] 2015 Unknown [id number]. [id number] 2014 Medicaid [id number] 1987 Unknown [id number] 2.16. 840.1.064493.3.579.2.479 1987 Unknown [id number] 2.16. 840.1.345553.3.579.2.479 1987 Unknown [id number] 2.16. 840.1.762917.3.579.2479 1987 Unknown [id number] 2.16. 840.1.285398.3.579.2479 1987 Unknown [id number] 2.16. 840.1.872780.3.579.2479 1987 Unknown [id number] 2.16. 840.1.256031.3.579.2479 1987 Unknown [id number] 2.16. 840.1.268229.3.579.2479 1987 Unknown [id number] 2.16. 840.1.216058.3.579.2479 1987 Unknown [id number] 2.16. 840.1.810598.3.579.2479 1987 Unknown [id number] 2.16. 840.1.818616.3.579.2479 1987 Unknown [id number] 2.16. 840.1.365623.3.579.2479 1987 Unknown [id number] 2.16. 840.1.091075.3.579.2479 1987 Unknown [id number] 2.16. 840.1.180103.3.579.2479 1987 Unknown [id number] 2.16. 840.1.881998.3.579.2.479 1987 Unknown [id number] 2.16. 840.1.834037.3.579.2.668 1987 Unknown [id number] 2.16.8 40.1.660431.3.579.2.627 1987 Unknown [id number] 2.16.8 40.1.231124.3.579.2.627 1987 Unknown [id number] 2.16.8 40.1.679650.3.579.2.627 Unknown [id number] Unknown Unknown [id number] 2.16.8 40.1.670972.3.579.2.462 Unknown [id number] 2.16.8 40.1.927229.3.579.2.462 Unknown [id number] 2.16.8 40.1.812421.3.579.2.462 Unknown [id number] 2.16.8 40.1.724140.3.579.2.462 Unknown [id number] 2.16.8 40.1.341375.3.579.2.462 Unknown [id number] 2.16.8 40.1.913158.3.579.2.462 Unknown [id number] 2.16.8 40.1.853262.3.579.2.462 Unknown [id number] 2.16.8 40.1.335521.3.579.2.462 Unknown [id number] 2.16.8 40.1.967254.3.579.2.462 Unknown [id number] 2.16.8 40.1.263681.3.579.2.462 Unknown [id number] 2.16.8 40.1.562098.3.579.2.462 Unknown [id number] 2.16.8 40.1.483942.3.579.2.462 Unknown [id number] 2.16.8 40.1.174474.3.579.2.462 Unknown [id number] 2.16.8 40.1.625043.3.579.2.462 Unknown [id number] 2.16.8 40.1.325831.3.579.2.462 Unknown [id number] 2.16.8 40.1.669823.3.579.2.462 Social History Date Type Detail Facility Start: 01-07-2022 End: 01-23-2024 Assertion Unknown if ever smoked [facility] Work Phone: Start: 05-11-2021 End: 06-15-2024 Tobacco smoking status ALIS Current every day smoker [facility] History of tobacco use Cigarette Smoker [facility] Start: 05-11-2021 End: 02-21-2025 Cigarettes smoked current (pack per day) - Reported [facility] Start: 05-11-2021 End: 06-15-2024 Tobacco use and exposure Never used [facility] Start: 05-11-2021 End: 2024 Alcohol intake Current non-drinker of alcohol (finding) [facility] Work Phone: Start: 1985 Sex Assigned At Not on file [facility] Work Phone: Start: 06-19-2021 End: 08-03-2022 Exposure to SARS-CoV-2 (event) Not sure [facility] Start: 06-19-2022 End: 03-06-2025 Ex-smoker (finding) [facility] Sex Assigned At [facility] Start: 12-20-2021 Light tobacco smoker (finding) [facility] Start: 08-19-2019 None [facility] Start: 08-19-2019 Spouse/ Signif icant Other [facility] Start: 06-05-2020 Cigarettes [facility] Start: 1985 Sex Assigned At Female W [facility] History of tobacco use Current smoker [facility] Work Phone: Start: 11-19-2021 [facility] Work Phone: Start: 01-25-2020 End: 04-07-2020 History SDOH Alcohol Frequency 1 [facility] Start: 04-07-2020 History SDOH Alcohol Std Drinks 98 [facility] Start: 01-25-2020 End: 04-07-2020 History SDOH Social Connections Phone 5 [facility] Start: 04-07-2020 History SDOH Social Connections Get Together 4 [facility] Start: 01-25-2020 End: 04-07-2020 History SDOH Social Connections Judaism 3 [facility] Start: 01-25-2020 End: 04-07-2020 History SDOH Physical Activity DPW 2 [facility] Start: 01-25-2020 Education 12 [facility] Start: 06-27-2020 End: 06-23-2022 Tobacco Comment 5 cigarretes a day [facility] Start: 04-07-2020 End: 02-21-2025 Social connection and isolation panel [facility] Frequency of Communication with Friends and Family Not on file [facility] Do you belong to any clubs or organizations such as faith groups, unions, fraternal or athletic groups, or school groups? Yes [facility] Are you now , , , , never or living with a partner? [facility] How often to you hav e a drink containing alcohol? Never [facility] Do you feel stress - tense, restless, nervous, or anxious, or unable to sleep at night because your mind is troubled all the time - these days [OSQ] To some extent [facility] (I/We) worried wheth er (my/our) food would run out before (I/we) got money to buy more. Never true [facility] In the past 12 month s, was there a time when you were not able to pay the mortgage or rent on time? No [facility] How often to you hav e a drink containing alcohol? Monthly or less [facility] How many standard drinks containing alcohol do you have on a typical day? 1 or 2 [facility] How hard is it for y ou to pay for the very basics like food, housing, medical care, and heating Somewhat hard [facility] Do you feel stress - tense, restless, nervous, or anxious, or unable to sleep at night because your mind is troubled all the time - these days [OSQ] Very much [facility] (I/We) worried kendrick er (my/our) food would run out before (I/we) got money to buy more. Sometimes true [facility] NEGATED: Highlighted rowStart: 10-17-2019 End: 10-17-2019 Tobacco use and exposure Tobacco use and exposure [facility] Work Phone: Goals Date Patient Goal Desired Activity /State Functional Status Date Assessment Result Facility 12-25-2023 Functional Status Independent [facility] 12-25-2023 Functional Status Ambulation in Torres, Ambulation in Room [facility] 03-04-2023 Functional Status Independent [facility] 03-04-2023 Functional Status Ambulating in torres, Ambulating in room, Awake, Bathroom privileges [facility] 12-26-2022 Functional Status ID band on, Allergy Band on, Call device within reach, Bed in low position, Wheels locked, Upper/Half-Length side-rails up, Phone within reach, personal items within reach [facility] 10-07-2022 Functional Status Assistive Device None A [facility] 09-27-2022 Functional Status Assistive Device None A [facility] 06-29-2022 Are you deaf, or do you have serious difficulty hearing No 06/29/2022 9:38 AM Mine Ulloa, MUMTAZ No [facility] 06-29-2022 Are you blind, or do you have serious difficulty seeing, even when wearing glasses No 06/29/2022 9:38 AM Mine Ulloa, MUMTAZ No [facility] 06-29-2022 Do you have serious difficulty walking or climbing stairs No 06/29/2022 9:38 AM Mine Ulloa, RN No [facility] 06-29-2022 Do you have difficul ty dressing or bathing No 06/29/2022 9:38 AM Mine Ulloa, RN No [facility] 06-29-2022 Because of a physica l, mental, or emotional condition, do you have difficulty doing errands alone such as visiting a physician's office or shopping No 06/29/2022 9:38 AM Mine Ulloa RN No [facility] 02-12-2022 Functional status Ambulates [facility] Work Phone: Mental Status Date Assessment Result Facility 02-18-2025 Cognitive function Level Of Cons ciousness Awake;Alert;Appropriate;Fol lows Commands [facility] Work Phone: 01-23-2024 Cognitive function Level Of Cons ciousness Awake;Alert;Appropriate;Fol lows Commands [facility] Work Phone: 12-25-2023 Mental Status Orientation Oriented x 4 [facility] 12-25-2023 Mental Status [facility] 03-04-2023 Mental Status Orientation Oriented x 4 [facility] 03-04-2023 Mental Status [facility] 12-26-2022 Mental Status Oriented x 4 [facility] 10-07-2022 Mental Status Orientation Oriented x 4 [facility] 10-07-2022 Mental Status [facility] 09-27-2022 Mental Status Oriented x 4 [facility] 06-29-2022 Because of a physica l, mental, or emotional condition, do you have serious difficulty concentrating, remembering, or making decisions No 06/29/2022 9:38 AM Mine Ulloa RN No [facility] 06-25-2022 Cognitive function Level Of Cons ciousness Awake;Alert;Appropriate [facility] Work Phone: 06-25-2022 Cognitive function Arousable To Voice/Nam e [facility] Work Phone: 03-27-2022 Cognitive function Level Of Cons ciousness Awake;Alert;Appropriate;Fol lows Commands [facility] Work Phone: 02-11-2022 Cognitive function Appropriate;Cooperativ e [facility] Work Phone: 01-04-2022 Cognitive function Voice/Name [facility] Work Phone: 12-28-2021 Cognitive function Awake;Alert;A ppropriate;Fol lows Commands [facility] Work Phone: 10-09-2021 Cognitive function Level Of Cons ciousness Awake;Alert;Appropriate;Fol lows Commands [facility] Work Phone: 10-07-2021 Cognitive function Level Of Cons ciousness Awake;Alert;Appropriate;Fol lows Commands [facility] Work Phone: Clinical Notes 07-27-2018 to 03-18-2025 Note Date & Type Note Facility 03-18-2025 Progress note [facility] 03-06-2025 Discharge summary [facility] 03-06-2025 Discharge summary Note Date/Time March 06, 2025 2:59pm [facility] Medical Records Department [address] [place] [address] Emergency Department Summary 03/06/25 MR#: [id number] Acct: [id number] Name: LILLIAN DRAKE Rep #:[id number] : 1985 39 From: Al Hassan MD PCP: Dr. Jennifer Werner MD Status:REG ER Location: ED HPI HPI - GI History of Present Illness Chief Complaint: Abd Pain Informant: patient Narrative Narrative: 39-year-old female has been having pelvic pain off and on for months. She states she had an IUD placed several weeks ago as a result of this hoping it would help the pain but has been making it worse and so she has another appointment with her it security consultant in 2 weeks but was in more severe pain this morning. Is not lateralizing, pelvic, sometimes makes her nauseated no vomitingno fevers or chills no vaginal discharge or bleeding. She has PCOS and her bleeding is off and on but none recently. She is uncertain if she wants the IUDout right now. She is on no other female hormone prescription medications. This is the same pain has been going on for several months. She states she has an operative planning appointment for possible hysterectomy coming up with same it security consultant. [facility] Medical History Dyspareunia depression History of premature rupture of membranes (PPROM) History of pre-term labor Polyhydramnios Asthma Anxiety Polyhydramnios affecting IUGR (intrauterine growth restriction) Anxiety Former smoker Hyperemesis Vaginal bleeding during Dichorionic diamniotic twin Rh negative status during Infertility Supervision of high risk , antepartum Marijuana use, episodic Concussion without loss of consciousness Cervical strain COVID-19 Depression Back pain Abnormal bruising Knee pain Chest pain Migraines Fatigue Shoulder pain Home Medications ?Medication ?Instructions ?Recorded ?Last Taken ?Type sertraline 100 mg tablet (Zoloft) 150 mg PO DAILY Chec k with primary 06/18/22 06/24/22 10:00 History doctor lithium carbonate 300 mg 250 mg PO DAILY 11/22/24 Unk nown History tablet,extended release naproxen 500 mg tablet 500 mg PO BID PRN pain #30 t abs 01/07/25 Unknown Rx cyclobenzaprine 10 mg tablet 10 mg PO TID PRN muscle s pasm #30 01/30/25 Unknown Rx tabs hydrocodone-acetaminophen 5-325mg 1 tab PO Q6H PRN PRN Pain 3 days 03/06/25 Unknown Rx 5mg-325mg #12 TABLETS Allergy/AdvReac Type Severity Reaction Status Date / Time dicyclomine (From Bentyl) Allergy migraine Verified 03/06/25 10:02 Penicillins Allergy Rash Verified 03/06/25 10:02 Surgical History delivery delivered H/O dilation and curettage Social History adopted: No household members: significant other and children number of children: 2 current occupational status: employed 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; [employer] Smoking Status: Former smoker alcohol intake: current details: occasionally; not while substance use type: marijuana caffeine: Yes what type of physical activity do you participate in: none seatbelt use: always do you feel safe at home: Yes additional social history: Baljinder WEBB ED Constitutional Constitutional ED: Denies chills or fever(s) Eyes Eyes: Denies change in vision or diplopia ENT ENT ED: Denies rhinorrhea or sore throat Cardiovascular Cardiovascular: Denies chest pain or palpitations Respiratory/Chest Respiratory/Chest: Denies cough or dyspnea Gastrointestinal Gastrointestinal: Reports abdominal pain and nausea; Denies diarrhea or vomiting Genitourinary Genitourinary ED: Denies dysuria or hematuria Musculoskeletal Musculoskeletal: Reports back pain; Denies neck pain Integumentary Denies abscess or rash Neurologic Neurologic: Denies headache(s), paresthesias or weakness Psychiatric Psychiatric: Reports anxiety; Denies suicidal thoughts EXAM Physical Exam Const Vital Signs: 03/06/25 10:02 03/06/25 12:16 03/06/25 14:00 Temperature 96.5 F L Temperature Source Temporal Pulse Rate 63 57 L 61 Respiratory Rate 18 16 14 Blood Pressure 114/75 117/52 L 107/50 L Blood Pressure Mean 88 73 69 Pulse Ox 98 98 97 Oxygen Delivery Method Room Air Room Air Room Air Positive well nourished and well developed General Appearance ED: well developed and NAD HEENT Reports moist mucous membranes normocephalic and atraumatic Eyes PERRL and EOMs intact bilaterally Neck full ROM and supple Resp normal respiratory effort and clear to auscultation bilaterally Cardio regular rate, regular rhythm and no murmurs GI non-distended GI Narrative: Mild suprapubic tenderness, no guarding or rebound no lateralizing tenderness. Benign abdomen. Auscultation: normoactive bowel sounds Palpation: soft Back/Spine no CVA tenderness General Back: other FROM Extremity normal to inspection General Extremety ED: Negative for edema, pulses abnormal or tenderness General Extremity: Negative for edema or pulses abnormal Neuro oriented x3, CN's II-XII intact bilaterally and no sensory deficits noted Sensorium / Orientation: awake and alert Motor Exam: strength 5/5 throughout Skin no rashes or lesions noted and no wounds MDM MDM MDM Narrative Medical decision making narrative: Urinalysis reviewed, is negative ruling out ectopic. Given this history I do not think she needs an emergent ultrasound, this is not consistent with torsion, TOA, or PID. I gave her some pain control here which helped. Discussed with gynecology Alley Bird, who recommended obtaining an ultrasound to evaluate IUD placement. This was done, placement is adequate and good. She has a small follicular cyst on the left ovary, she has a history of PCOS so I am not worried about that there is no free fluid or signs of a tubo-ovarian abscess. Patient was given morphine in addition to the other medications we gave her for her pain including Toradol which did not help. She is doing well. Give her prescription for short course of analgesics and she is going to follow-up with gynecology as scheduled she is comfortable with that plan. Lab Data Attestation: I reviewed the patient's lab results. Labs: Laboratory Results - last 24 hr 03/06/25 11:05 Urine Color Yellow Urine Clarity Clear Urine pH 6.0 Ur Specific [place] 1.020 Urine Protein 30 H Urine Glucose (UA) Normal Urine Ketones 5 H Urine Occult Blood 10 H Urine Nitrite Negative Urine Bilirubin 1 H Urine Urobilinogen Normal Ur Leukocyte Esterase 25 H Urine RBC 0 SEEN Urine WBC 0-5 SEEN Ur Squamous Epith Cells 0-5 SEEN Urine Bacteria 1+ Urine Mucus 1+ Urine Test Negative Radiography Diagnostic Testing: Clinical Impression(s) from Imaging Studies Transvaginal US 03/06/25 11:55 IMPRESSION: 1. Left ovarian follicular cyst. 2. No free fluid is seen. 3. Satisfactory intrauterine device positioning Reading Location: [address] Discharge Plan Triage Chief Complaint: Abd Pain ED Provider: Al Hassan Dx/Rx/DC Orders Clinical Impression: Acute pain in female pelvis, IUD (intrauterine device) in place Instructions: ED Pelvic Pain, Unknown Cause Prescriptions: New hydrocodone-acetaminophen 5-325 mg tablet 1 tab PO Q6H PRN PRN (Reason: Pain) 3 Days Qty: 12 0RF No Action naproxen 500 mg tablet 500 mg PO BID PRN (Reason: pain) Qty: 30 2RF Rx Instructions: administer with food or milk sertraline [Zoloft] 100 mg tablet 150 mg PO DAILY lithium carbonate 300 mg tablet extended release 250 mg PO DAILY cyclobenzaprine 10 mg tablet 10 mg PO TID PRN (Reason: muscle spasm) Qty: 30 2RF Primary Care Provider: Jennifer Werner Referrals: Maira Regan MD [Med Staff - Active Staff] - Keep Mateusz appointment Print Language: Moroccan Disposition Disposition: Home, Self Care What to do if you have Problems For any increased pain, shortness of breath, bleeding, nausea or vomiting, chestpain, or any unexpected problems, contact your Primary Care Provider. Call [facility] ([phone]) or report to the closest Emergency Room. Call 911 if necessary. 03/06/25 [id number] <Electronically signed by Al Hassan MD> Cosigner Signature (if applicable): CC: Dr. Jennifer Werner MD; Dr. Maria Regan MD ~ Signed [facility] Work Phone: 1(138) 155-768106-04-2025 Radiology Diagnostic study note [facility] Imaging Services [address] [place], [place] [address] Transvaginal Non- MR#: [id number] Acct: [id number] Name: LILLIAN DRAKE Rep #: [id number] : 1985 F 39 From: Сергей Ortiz MD PCP: Dr. Jennifer Werner MD Status: REG ER Study:Transvaginal Non- Date of Exam: 03/06/25 Exam# [id number] Ordering Dr: Isra Hassan MD PROCEDURE: TRANSVAGINAL NON- 03/06/2025 REASON FOR EXAM: PAIN, CHECK IUD PLACEMENT TECHNIQUE: Transabdominal pelvic ultrasound COMPARISON: Transvaginal pelvic ultrasound 02/08/2025. FINDINGS: Measurements: Uterus: 10.6 x 6.0 x 5.7 cm with a volume of 187 mL Endometrial Thickness: 9 mm Right Ovary: 3.7 x 2.8 x 2.7 cm with a volume of 14.8 mL. Left Ovary: 6.1 x 2.6 x 2.7 cm with a volume of 22.3 mL. A left ovarian follicular cyst is measured at 2.1 x 2.3 x 2.2 cm. Uterus: No focal uterine abnormality is seen. Satisfactory intrauterine device positioning. Endometrium: Unremarkable. Right ovary: Normal size and echotexture. Left ovary: Left ovarian follicular cyst. Unremarkable appearance, otherwise Other: No large pelvic mass identified. No free fluid is evident US/Transvaginal Non- IMPRESSION: 1. Left ovarian follicular cyst. 2. No free fluid is seen. 3. Satisfactory intrauterine device positioning Reading Location: [address] CC: Dr. Al Hassan MD; Dr. Jennifer Werner MD ~ Electrical And Electronic Assembler: Signed [facility]05-28-2025 Telephone encounter Note* Telephone Encounter - Jennifer Werner MD - 02/27/2025 10:15 AM EDT Medication request reviewed, and approved as written. [facility]05-28-2025 Miscellaneous Notes* Telephone Encounter - Jennifer Werner MD - 02/27/2025 10:15 AM EDT Medication request reviewed, and approved as written. * Telephone Encounter - Krista Covington LPN - 02/26/2025 7:08 AM EDT Pharmacy MyChart message requesting the following refill. Requested Prescriptions Pending Prescriptions Disp Refills lithium carbonate ER 300 mg CR tablet 90 tablet 0 Sig: Take 1 tablet by mouth once daily. Last refill: 10/16/24 Patient last appointment: 10/16/24 Patient next appointment: Visit date not found Patient Phone numbers: [phone] (home) Request is for script(s) to be escript to pharmacy. Krista Covington LPN documented in [facility] Telephone encounter Note * Telephone Encounter - Krista Covington LPN - 02/26/2025 7:08 AM EDT Pharmacy [employer] message requesting the following refill. Requested Prescriptions Pending Prescriptions Disp Refills lithium carbonate ER 300 mg CR tablet 90 tablet 0 Sig: Take 1 tablet by mouth once daily. Last refill: 10/16/24 Patient last appointment: 10/16/24 Patient next appointment: Visit date not found Patient Phone numbers: [phone] (home) Request is for script(s) to be escript to pharmacy. Krista Covington LPN [facility]05-19-2025 Telephone encounter Note* Telephone Encounter - Toney Guillaume LPN - 02/18/2025 4:57 PM EDT Patient notified regarding message below and states understanding Toney Guillaume LPN [facility]05-19-2025 Miscellaneous Notes* Telephone Encounter - Toney Guillaume LPN - 02/18/2025 4:57 PM EDT Patient notified regarding message below and states understanding Toney Guillaume LPN * Telephone Encounter - Jennifer Werner MD - 02/18/2025 4:51 PM EDT Chart reviewed. Orders Placed This Encounter ibuprofen (MOTRIN) 800 mg tablet Sig: Take 1 tablet by mouth three times a day as needed for pain. - take with food. Dispense: 30 tablet Refill: 0 * Telephone Encounter - Madalyn Lomas LPN - 02/18/2025 4:03 PM EDT Returned patients call. She was seen in [place] ER this morning and does not feel like the doctor was listening to her about her back pain. She is coming in for hospital follow up on 02/21 but would like something for pain to hold her until she is seen. She is currently taking tylenol which is not helping. Madalyn Lomas LPN * Telephone Encounter - Madalyn Lomas, PAIN MANAGEMENT NURSE PRACTITIONER - 02/18/2025 4:02 PM EDT ----- Message from Kristen Barrera sent at 02/18/2025 3:35 PM EDT ----- Regarding: Medicine/Dr. Werner/ ED follow up/ Pt requesting meds for back pain until her Virtual Appt Subject Line Format: Medicine / [Provider Name] / [Issue] Select Primary Care Department Name For Pool Routing Assistance: [facility] => AG FAMP/[facility] MED APPT CTR TRIAGE POOL [[id number]] Patient: Lillian Tilley Drake Date of : 1985 Primary Care Provider: Jennifer Werner MD Patient has been identified by name and Date of (Y/N): Yes Patient: Lillian Drake Date of : 1985 Provider for this encounter: Jennifer Werner MD Reason for the call/escalation: Pt requesting a sooner appt, to discuss back pain. Pt seen in ED today. Pt is requesting an order of pain meds until her appt this week. Was Patient Referred to [facility]/Seek Emergency Treatment (Y/N): N/A Did Patient Agree (Y/N): N/A Was An Attempt Made To Transfer The Patient To The Office (Y/N): No Were You Able To Reach Someone At The Office (Y/N): N/A If Yes - Patient Was Transferred To (Caregivers Name): N/A If No - Which [facility] Leadership Teacher Instrumental Did You Speak With Regarding This Patient: N/A Was an appointment scheduled (Y/N): no Reason patient was requesting visit (RFV/signs and symptoms/diagnosis) : Pain meds Person calling if other than patient: N/A Return call to if other than patient: N/A Best contact number: [phone] Thank you, Kristen Bridges February 18, 2025 3:35 PM documented in this encounterC[facility] Telephone encounter Note * Telephone Encounter - Jennifer Werner MD - 02/18/2025 4:51 PM EDT Chart reviewed. Orders Placed This Encounter ibuprofen (MOTRIN) 800 mg tablet Sig: Take 1 tablet by mouth three times a day as needed for pain. - take with food. Dispense: 30 tablet Refill: 0 [facility]05-19-2025 Telephone encounter Note* Telephone Encounter - Madalyn Lomas LPN - 02/18/2025 4:03 PM EDT Returned patients call. She was seen in [place] ER this morning and does not feel like the doctor was listening to her about her back pain. She is coming in for hospital follow up on 02/21 but would like something for pain to hold her until she is seen. She is currently taking tylenol which is not helping. Madalyn Lomas LPN [facility]05-19-2025 Telephone encounter Note* Telephone Encounter - Madalyn Lomas LPN - 02/18/2025 4:02 PM EDT ----- Message from Kristen Barrera sent at 02/18/2025 3:35 PM EDT ----- Regarding: Medicine/Dr. Werner/ ED follow up/ Pt requesting meds for back pain until her Virtual Appt Subject Line Format: Medicine / [Provider Name] / [Issue] Select Primary Care Department Name For Pool Routing Assistance: [facility] => AG FAMP/[facility] MED APPT CTR TRIAGE POOL [[id number]] Patient: Lillian Drake Date of : 1985 Primary Care Provider: Jennifer Werner MD Patient has been identified by name and Date of (Y/N): Yes Patient: Lillian Drake Date of : 1985 Provider for this encounter: Jennifer Werner MD Reason for the call/escalation: Pt requesting a sooner appt, to discuss back pain. Pt seen in ED today. Pt is requesting an order of pain meds until her appt this week. Was Patient Referred to [facility]/Seek Emergency Treatment (Y/N): N/A Did Patient Agree (Y/N): N/A Was An Attempt Made To Transfer The Patient To The Office (Y/N): No Were You Able To Reach Someone At The Office (Y/N): N/A If Yes - Patient Was Transferred To (Caregivers Name): N/A If No - Which [facility] Leadership Teacher Instrumental Did You Speak With Regarding This Patient: N/A Was an appointment scheduled (Y/N): no Reason patient was requesting visit (RFV/signs and symptoms/diagnosis) : Pain meds Person calling if other than patient: N/A Return call to if other than patient: N/A Best contact number: [phone] Thank you, Kristen Bridges February 18, 2025 3:35 PM [facility]05-19-2025 Telephone encounter Note* Telephone Encounter - Dea Schultz RN - 02/18/2025 3:13 PM EDT Reason for call: back/leg pain Outcome: Pt was treated in ER today so ok to schedule ER f/u with pcp. Conf to appt center. Reason for Disposition [1] Pain radiates into the thigh or further down the leg AND [2] both legs Answer Assessment - Initial Assessment Questions 1. ONSET: When did the pain begin? 3 days ago. Pt seen at [place] ER earlier today but not satisfied with dx/plan of care 2. LOCATION: low back radiating down to hips and back of both thighs 3. SEVERITY: 7/10 Pt using ice/heat, Naproxen and Tylenol 7. BACK OVERUSE: Denies trauma/injury 9. NEUROLOGIC SYMPTOMS: Do you have any weakness, numbness, or problems with bowel/bladder control? Feels weak but can stand and walk. buttocks numb when sits for awhile 10. OTHER SYMPTOMS: Do you have any other symptoms? (e.g., fever, abdomen pain, burning with urination, blood in urine) pelvic cramping since new IUD last month Protocols used: Back [id number] [facility]05-19-2025 Miscellaneous Notes* Telephone Encounter - Dea Schultz RN - 02/18/2025 3:13 PM EDT Reason for call: back/leg pain Outcome: Pt was treated in ER today so ok to schedule ER f[facility] Reason for Disposition [1] Pain radiates into the thigh or further down the leg AND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 Nearly every day 3 Nearly every day Worrying too much about different things 3 Nearly every day 3 Nearly every day 2 Over half the days Trouble relaxing 1 Several days 1 Several days 3 Nearly every day Being so restless that it's hard to sit still 2 Over half the days 2 Over half the days 3 Nearly every day Being easily annoyed or irritable 3 Nearly every day 3 Nearly every day 3 Nearly every day Feeling afraid as if something awful might happen 1 Several days 1 Several days 1 Several days DARYA-7 Anxiety Score 14 16 18 If you checked off any problems, how difficult have these problems made it for you to do your work,take care of things at home, or get along with other people? Very difficult Very difficult Extremely difficult Office Visit on 10/11/2024 Component Date Value Ref Range Status Strep A (POCT) 10/11/2024 Negative Negative Final Procedural Control 10/11/2024 Valid Final SARS-CoV-2 (Agent of COVID-19) RNA 10/11/2024 Not detected See comment Final Influenza A RNA 10/11/2024 Not detected Not Detected Final Influenza B RNA 10/11/2024 Not detected Not Detected Final Respiratory syncytial virus (RSV) * 10/11/2024 Not detected Not Detected Final Hemoglobin (g/dL) Date Value 06/27/2023 13.7 04/21/2020 14.5 Hematocrit (%) Date Value 06/27/2023 42.2 04/21/2020 45.0 WBC (k/uL) Date Value 06/27/2023 7.87 04/21/2020 8.16 Platelet Count (k/uL) Date Value 06/27/2023 248 04/21/2020 253 CMP: Sodium Date Value Ref Range Status 06/27/2023 136 136 - 144 mmol/L Final Potassium Date Value Ref Range Status 06/27/2023 4.5 3.7 - 5.1 mmol/L Final Chloride Date Value Ref Range Status 06/27/2023 105 97 - 105 mmol/L Final CO2 Date Value Ref Range Status 06/27/2023 19 (L) 22 - 30 mmol/L Final Glucose Date Value Ref Range Status 06/27/2023 90 74 - 99 mg/dL Final Comment: The [place] [employer] (ADA) provides guidance for cutoff values for fasting glucose andrandom glucose. The ADA defines fasting as no caloric intake for at least 8 hours. Fasting plasma glucose results between 100 to 125 mg/dL indicate increased risk for diabetes (prediabetes). Fasting plasma glucose results greater than or equal to 126 mg/dL meet the criteria for diagnosis of diabetes. In the absence of unequivocal hyperglycemia, results should be confirmed by repeat testing. In a patient with classic symptoms of hyperglycemia or hyperglycemic crisis, random plasma glucose results greater than or equal to 200 mg/dL meet the criteria for diagnosis of diabetes. Reference: Standards of Medical Care in Diabetes 2016, [place] [employer]. Diabetes Care. 2016.39(Suppl 1). BUN Date Value Ref Range Status 06/27/2023 15 7 - 21 mg/dL Final Creatinine Date Value Ref Range Status 06/27/2023 0.70 0.58 - 0.96 mg/dL Final Calcium, Total Date Value Ref Range Status 06/27/2023 9.5 8.5 - 10.2 mg/dL Final Albumin Date Value Ref Range Status 10/29/2022 4.0 3.9 - 4.9 g/dL Final Protein, Total Date Value Ref Range Status 10/29/2022 6.7 6.3 - 8.0 g/dL Final AST Date Value Ref Range Status 10/29/2022 21 13 - 35 U/L Final ALT Date Value Ref Range Status 10/29/2022 16 7 - 38 U/L Final Alkaline Phosphatase Date Value Ref Range Status 10/29/2022 56 34 - 123 U/L Final Bilirubin, Total Date Value Ref Range Status 10/29/2022 0.2 0.2 - 1.3 mg/dL Final Anion Gap Date Value Ref Range Status 06/27/2023 12 9 - 18 mmol/L Final TSH Date Value Ref Range Status 10/14/2023 0.874 0.270 - 4.200 mIU/L Final Comment: If the patient is , TSH reference range varies by gestational period: First Trimester (weeks 9-12): 0.180-2.990 mIU/L Second Trimester: 0.110-3.980 mIU/L Third Trimester: 0.480-4.710 mIU/L Chau Reynolds et al. A Practical Approach for the Verifications and Determination of Site- and Trimester-Specific Reference Intervals for Thyroid Function tests in . Thyroid, 2019:29:3:412-420.Andrews Mishra, et al. 2017 Guidelines of the [place] [employer] for the Diagnosis and Management of Thyroid Disease during and the . Thyroid, 2017:27:3:315-389. 06/27/2023 1.610 0.270 - 4.200 mIU/L Final Comment: If the patient is , TSH reference range varies by gestational period: First Trimester (weeks 9-12): 0.180-2.990 mIU/L Second Trimester: 0.110-3.980 mIU/L Third Trimester: 0.480-4.710 mIU/L Chau Reynolds et al. A Practical Approach for the Verifications and Determination of Site- and Trimester-Specific Reference Intervals for Thyroid Function tests in . Thyroid, 2019:29:3:412-420.Andrews E, et al. 2017 Guidelines of the [place] [employer] for the Diagnosis and Management of Thyroid Disease during and the . Thyroid, 2017:27:3:315-389. No results found for: TSHREFL No results found for: T3 No results found for: FREET3 No results found for: T4 Free T4 Date Value Ref Range Status 10/14/2023 1.0 0.9 - 1.7 ng/dL Final No results found for: Q4GGDPZB Cholesterol, Total (mg/dL) Date Value 10/14/2023 261 10/29/2022 397 03/10/2018 218 HDL Cholesterol (mg/dL) Date Value 10/14/2023 37 10/29/2022 44 03/10/2018 57 LDL Cholesterol Date Value 10/14/2023 178 mg/dL 10/29/2022 Comment: Unable to calculate due to increased Triglycerides. See LDL-Chol, Direct. 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 Generalized anxiety disorder F41.1 sertraline (ZOLOFT) 100 mg tablet COMPREHENSIVE METABOLIC PANEL THYROID STIMULATING HORMONE Continues with anxiety. On counseling, adjusting to weekly. On Sertraline 150mg, we'll max to 200mg. Other SSRIs/SNRIs less effective. 2. Bipolar disorder, current episode mixed, moderate (HCC) F31.62 lithium carbonate ER 300 mg CR tablet sertraline (ZOLOFT) 100 mg tablet COMPREHENSIVE METABOLIC PANEL THYROID STIMULATING HORMONE Pt has been fairly stable with tx but continues with depression, Sertraline and [place]. We're adjusting. Cont with counseling. 3. 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 Interested in medication tx. Pt currently exercising. 4. Encounter for routine adult health examination without abnormal findings Z00.00 COMPREHENSIVE METABOLIC PANEL LIPID PANEL BASIC COMPLETE BLOOD COUNT HEMOGLOBIN A1C THYROID STIMULATING HORMONE VITAMIN D 25 HYDROXY Routine labs ordered for future visit. 5. Screening for diabetes mellitus Z13.1 HEMOGLOBIN A1C 6. Mixed hyperlipidemia E78.2 COMPREHENSIVE METABOLIC PANEL LIPID PANEL BASIC Pt with diet and exercise in place. Last lipids , we'll recheck. Medication orders placed this encounter lithium carbonate ER 300 mg CR tablet Sig: Take 1 tablet by mouth once daily. Dispense: 90 tablet Refill: 0 Phentermine HCl 37.5 mg tablet Sig: Take 1 tablet by mouth every morning for 90 days. Dispense: 30 tablet Refill: 2 sertraline (ZOLOFT) 100 mg tablet Sig: Take 2 tablets by mouth once daily. Dispense: 180 tablet Refill: 0 Goals Addressed None Discussed above plan with patient and/or caregiver. Patient and/or caregiver agreeable with above plan. Return in about 10 weeks (around 12/25/2024) for Depression/Anxiety, Routine check up. Jennifer Werner MD, signed on 2024 9:09 AM [facility] Telephone encounter Note * Telephone Encounter - Ashlee Mayorga LPN - 10/12/2024 7:39 AM EST Patient given results and verbalized understanding of instructions given. Ashlee Mayorga LPN [facility]01-10[facility] Miscellaneous Notes* Telephone Encounter - Ashlee Mayorga LPN - 10/12/2024 7:39 AM EST Patient given results and verbalized understanding of instructions given. Ashlee Mayorga LPN * Telephone Encounter - To Harris PA - 10/12/2024 7:12 AM EST Please let patient know she is negative for COVID flu and RSV documented in [facility] encounterC[facility] Telephone encounter Note * Telephone Encounter - To Harris PA - 10/12/2024 7:12 AM EST Please let patient know she is negative for COVID flu and RSV [facility] Work Phone: [phone]) 765-142501-09-2025 NoteHNO ID: [id number] Author: TO HARRIS PA Service: ? Author Type: Physician Beater Room Helper Type: Progress Notes Filed: 10/11/2024 18:54 Note Text: This note was created using [employer]. Subjective Lillian Drake is a 38 year old female. HPI 38-year-old female presents for sore throat, cough, congestion, fatigue. Patient states she started feeling a little bit sick 2 days ago. Yesterday she felt tired and had congestion. She states today she has sore throat and cough throughout the day. She has not had any fevers. No vomiting or diarrhea. She has had some nausea and headache. No sick contacts that she is aware of. No other complaint. PAST MEDICAL HISTORY Diagnosis Date Asthma exercise induced, no asthma attacks since age 19 COVID-19 virus infection 09/28/2021 + Home test. COVID-19 virus infection 08/23/2022 Depression 06/17/2014 Exercise-induced asthma 10/20/2022 Generalized anxiety disorder 2005 Infertility, female PCOS, attempted to conceive for 3 years with 2nd child Irritable bowel syndrome with both constipation and diarrhea 03/30/2018 Major depressive disorder, recurrent episode, unspecified 2006 Miscarriage 2012 Mixed hypertriglyceridemia 03/30/2018 Other migraine, not intractable, without status migrainosus 03/30/2018 Panic disorder without agoraphobia PCOS (polycystic ovarian syndrome) 2008 Polysubstance dependence (HCC) 06/17/2014 Polysubstance dependence in early, early partial, sustained full, or sustained partial remission (HCC) 12/10/2014 labor delivered 6 weeks early Recurrent major depressive disorder, in partial remission ([facility]) 11/19/2015 Rh negative state in antepartum period 06/27/2015 SECONDARY AMENORRHEA 06/06/2008 Tobacco use disorder 06/26/2015 PAST SURGICAL HISTORY Procedure Laterality Date DELIVERY ONLY 06/24/2022 Twin , 33 wks COLONOSCOPY FLX DX W/COLLJ SPEC WHEN PFRMD 05/08/2020 Colonoscopy ESOPHAGOGASTRODUODENOSCOPY TRANSORAL DIAGNOSTIC 11/21/2014 EGD ESOPHAGOGASTRODUODENOSCOPY TRANSORAL DIAGNOSTIC 05/08/2020 EGD LIGATE FALLOPIAN TUBE 06/24/2022 ALLERGIES Dicyclomine, Lexapro [Escitalopram Oxalate], and Penicillins MEDICATIONS metroNIDAZOLE (FLAGYL) 500 mg tablet Take 500 mg by mouth two times a day. lithium carbonate ER 300 mg CR tablet Take 1 tablet by mouth once daily. (Patient taking differently: Take 250 mg by mouth once daily.) sertraline (ZOLOFT) 50 mg tablet Take 1 tablet by mouth every evening. - take with 100mg tablet. sertraline (ZOLOFT) 100 mg tablet take 1 tablet by mouth once daily with 50 milligram tablet ibuprofen (MOTRIN) 600 mg tablet Take 1 tablet by mouth every 6 hours as needed for pain. FAMILY HISTORY Problem Relation Age of Onset No Known Problems Mother Lipids Father Thyroid Sister No Known Problems Brother No Known Problems Maternal Grandmother Ischemic Heart Disease Maternal Grandfather CA at later age Diabetes Maternal Grandfather Hypertension Maternal Grandfather Thyroid Paternal Grandmother Emphysema Paternal Grandmother No Known Problems Paternal Grandfather ADD/ADHD Son Alcohol/Drug Paternal Aunt No Known Problems Daughter Social History Tobacco Use Smoking status: Every Day Current packs/day: 0.25 Average packs/day: 0.3 packs/day for 10.0 years (2.5 ttl pk-yrs) Types: Cigarettes Smokeless tobacco: Never Tobacco comments: 5 cigarretes a day Vaping Use Vaping status: Never Used Substance Use Topics Alcohol use: No Drug use: Yes Types: Marijuana Comment: occasional Review of Systems Constitutional: Positive for chills and fatigue. Negative for fever. HENT: Positive for congestion and sore throat. Negative for ear pain. Respiratory: Positive for cough. Negative for shortness of breath. Cardiovascular: Negative for chest pain. Gastrointestinal: Negative for diarrhea and vomiting. Neurological: Positive for headaches. Objective BP 100/67 Pulse 78 Temp 36.4 ?C (97.6 ?F) Resp 20 Wt 78 kg (171 lb 15.3 oz) LMP 10/10/2024 (Exact Date) SpO2 98% BMI 30.47 kg/m? Physical Exam Vitals and nursing note reviewed. Constitutional: General: She is not in acute distress. Appearance: Normal appearance. She is not toxic-appearing. HENT: Right Ear: Tympanic membrane and ear canal normal. Left Ear: Tympanic membrane and ear canal normal. Nose: Congestion present. Mouth/Throat: Mouth: Mucous membranes are moist. Pharynx: Uvula midline. Posterior oropharyngeal erythema present. Tonsils: No tonsillar exudate or tonsillar abscesses. 2+ on the right. 2+ on the left. Eyes: Conjunctiva/sclera: Conjunctivae normal. Cardiovascular: Rate and Rhythm: Normal rate and regular rhythm. Pulmonary: Effort: Pulmonary effort is normal. Breath sounds: Normal breath sounds. No wheezing, rhonchi or rales. Skin: General: Skin is warm and dry. Neurological: Mental Status: She is alert. Assessmen (more content not included)...[facility]01-09-2025 History of Present illness Narrative* To Harris PA - 10/11/2024 6:48 PM EST This note was created using [employer]. Subjective Lillian Drake is a 38 year old female. HPI 38-year-old female presents for sore throat, cough, congestion, fatigue. Patient states she started feeling a little bit sick 2 days ago. Yesterday she felt tired and had congestion. She states today she has sore throat and cough throughout the day. She has not had any fevers. No vomiting or diarrhea. She has had some nausea and headache. No sick contacts that she is aware of. No other complaint. PAST MEDICAL HISTORY Diagnosis Date Asthma exercise induced, no asthma attacks since age 19 COVID-19 virus infection 09/28/2021 + Home test. COVID-19 virus infection 08/23/2022 Depression 06/17/2014 Exercise-induced asthma 10/20/2022 Generalized anxiety disorder 2006 Infertility, female PCOS, attempted to conceive for 3 years with 2nd child Irritable bowel syndrome with both constipation and diarrhea 03/30/2018 Major depressive disorder, recurrent episode, unspecified 2006 Miscarriage 2012 Mixed hypertriglyceridemia 03/30/2018 Other migraine, not intractable, without status migrainosus 03/30/2018 Panic disorder without agoraphobia PCOS (polycystic ovarian syndrome) 2009 Polysubstance dependence ([facility]) 06/17/2014 Polysubstance dependence in early, early partial, sustained full, or sustained partial remission ([facility]) 12/10/2014 labor delivered 6 weeks early Recurrent major depressive disorder, in partial remission ([facility]) 11/19/2015 Rh negative state in antepartum period 06/27/2015 SECONDARY AMENORRHEA 06/06/2008 Tobacco use disorder 06/26/2015 PAST SURGICAL HISTORY Procedure Laterality Date DELIVERY ONLY 06/24/2022 Twin , 33 wks COLONOSCOPY FLX DX W/COLLJ SPEC WHEN PFRMD 05/08/2020 Colonoscopy ESOPHAGOGASTRODUODENOSCOPY TRANSORAL DIAGNOSTIC 11/21/2014 EGD ESOPHAGOGASTRODUODENOSCOPY TRANSORAL DIAGNOSTIC 05/08/2020 EGD LIGATE FALLOPIAN TUBE 06/24/2022 ALLERGIES Dicyclomine, Lexapro [Escitalopram Oxalate], and Penicillins MEDICATIONS metroNIDAZOLE (FLAGYL) 500 mg tablet Take 500 mg by mouth two times a day. lithium carbonate ER 300 mg CR tablet Take 1 tablet by mouth once daily. (Patient taking differently: Take 250 mg by mouth once daily.) sertraline (ZOLOFT) 50 mg tablet Take 1 tablet by mouth every evening. - take with 100mg tablet. sertraline (ZOLOFT) 100 mg tablet take 1 tablet by mouth once daily with 50 milligram tablet ibuprofen (MOTRIN) 600 mg tablet Take 1 tablet by mouth every 6 hours as needed for pain. FAMILY HISTORY Problem Relation Age of Onset No Known Problems Mother Lipids Father Thyroid Sister No Known Problems Brother No Known Problems Maternal Grandmother Ischemic Heart Disease Maternal Grandfather CA at later age Diabetes Maternal Grandfather Hypertension Maternal Grandfather Thyroid Paternal Grandmother Emphysema Paternal Grandmother No Known Problems Paternal Grandfather ADD/ADHD Son Alcohol/Drug Paternal Aunt No Known Problems Daughter Social History Tobacco Use Smoking status: Every Day Current packs/day: 0.25 Average packs/day: 0.3 packs/day for 10.0 years (2.5 ttl pk-yrs) Types: Cigarettes Smokeless tobacco: Never Tobacco comments: 5 cigarretes a day Vaping Use Vaping status: Never Used Substance Use Topics Alcohol use: No Drug use: Yes Types: Marijuana Comment: occasional Review of Systems Constitutional: Positive for chills and fatigue. Negative for fever. HENT: Positive for congestion and sore throat. Negative for ear pain. Respiratory: Positive for cough. Negative for shortness of breath. Cardiovascular: Negative for chest pain. Gastrointestinal: Negative for diarrhea and vomiting. Neurological: Positive for headaches. Objective BP 100/67 Pulse 78 Temp 36.4 C (97.6 F) Resp 20 Wt 78 kg (171 lb 15.3 oz) LMP 10/10/2024 (Exact Date) SpO2 98% BMI 30.47 kg/m Physical Exam Vitals and nursing note reviewed. Constitutional: General: She is not in acute distress. Appearance: Normal appearance. She is not toxic-appearing. HENT: Right Ear: Tympanic membrane and ear canal normal. Left Ear: Tympanic membrane and ear canal normal. Nose: Congestion present. Mouth/Throat: Mouth: Mucous membranes are moist. Pharynx: Uvula midline. Posterior oropharyngeal erythema present. Tonsils: No tonsillar exudate or tonsillar abscesses. 2+ on the right. 2+ on the left. Eyes: Conjunctiva/sclera: Conjunctivae normal. Cardiovascular: Rate and Rhythm: Normal rate and regular rhythm. Pulmonary: Effort: Pulmonary effort is normal. Breath sounds: Normal breath sounds. No wheezing, rhonchi or rales. Skin: General: Skin is warm and dry. Neurological: Mental Status: She is alert. Assessment and Plan ASSESSMENT/PLAN: 1. Sore throat - ICD9: 462, ICD10: J02.9 (primary diagnosis) - suspect viral - Group A strep molecular testing negative - Discussed supportive care treatment with fluids, rest and analgesia. - The patient may also use warm salt water gargles, throat lozenges and/or OTC throat spray as needed. - STREP A MOLECULAR (POC) 2. URI, acute - ICD9: 465.9, ICD10: J06.9 - Discussed viral etiology and rationale for treatment. - Symptomatic treatment with prn analgesia - Supportive care with fluids and rest - The patient may also use OTC cough and cold meds as needed. -COVID/flu/RSV swab pending. -In window for Tamiflu until evening of 10/12/2024 Diagnosis and treatment plan were discussed and questions were answered to the patient's satisfaction. Pt acknowledged understanding of concepts and follow up plan. Specific signs and symptoms that would indicate the need for higher level of care were discussed in detail warranting prompt ER evaluation. MARCUS Branham documented in [facility] encounterC[facility] Telephone encounter Note * Telephone Encounter - Brenton Nathan - 08/28/2024 3:47 PM EST No Show Documentation Lillian wu showed for an appointment on 08/28/2024 with Jennifer Goodman MD at 8:40am. She was scheduled for Return in about 7 weeks (around 08/28/2024) for Depression/Anxiety (overdue for physical) . I called and spoke with the patient regarding her missed appointment. Lillian stated the reason that she missed her appointment was because forgot about appointment /picked up extra shift at work. Resources discussed/offered to patient: n/a No show determined to be fault of patient: Yes This is the patients first no show in the last 12 months. Patient was rescheduled for 2024 at 8:40am. Letter mailed : Yes Is this the Third or Fourth No Show? Edilia Fuentes August 28, 2024 3:48 PM [facility]11-26-[facility] Miscellaneous Notes* Telephone Encounter - Brenton Nathan - 08/28/2024 3:47 PM EST No Show Documentation Lillian C Drake no showed for an appointment on 08/28/2024 with Jennifer Goodman MD at 8:40am. She was scheduled for Return in about 7 weeks (around 08/28/2024) for Depression/Anxiety (overdue for physical) . I called and spoke with the patient regarding her missed appointment. Lillian stated the reason that she missed her appointment was because forgot about appointment /picked up extra shift at work. Resources discussed/offered to patient: n/a No show determined to be fault of patient: Yes This is the patients first no show in the last 12 months. Patient was rescheduled for 2024 at 8:40am. Letter mailed : Yes Is this the Third or Fourth No Show? No Brenton Fuentes August 28, 2024 3:48 PM documented in this encounterC[facility]10-[facility] History of Present illness Narrative* Darren Carrillo RT(R) - 07/16/2024 12:20 PM EDT Radiology Service Progress Note PATIENT NAME: Lillian Drake DATE OF SERVICE: July 16, 2024 TIME: 1:12 PM PATIENT IDENTITY VERIFICATION COMPLETED USING TWO (2) IDENTIFIERS: Name and Date of confirmedby patient verbally. FALL SCREENING: Has the patient had 2 falls in the last year or 1 fall with injury or currently using an Ambulatory Assistive Device (Walker, Cane, Wheelchair, Crutches, etc.)? No PATIENT GENDER DATA: Female. status: : No status: NO. PATIENT RELEVANT IMPLANT DATA REVIEWED: Yes PATIENT PRESENTS WITH AN IMPLANTABLE OR ATTACHED ENVIRONMENTAL JOURNALIST: No RADIOLOGY DEPARTMENT: General X-ray: Exam(s) Completed: Lower Extremity X- Ray(s): Knee, AP / Lat / Merchant Bilateral and Ankle, Bilateral PERIPHERAL IV DATA: Not applicable SIGNED BY: RT Katya(R) July 16, 2024 1:12 PM documented in this encounterC[facility]10-14-2024 NoteHNO ID: [id number] Author: DARREN CARRILLO RT(R) Service: ? Author Type: Full Stack Java Developer Type: Progress Notes Filed: 07/16/2024 13:14 Note Text: Radiology Service Progress Note PATIENT NAME: Lillian Drake DATE OF SERVICE: July 16, 2024 TIME: 1:12 PM PATIENT IDENTITY VERIFICATION COMPLETED USING TWO (2) IDENTIFIERS: Name and Date of confirmed by patient verbally. FALL SCREENING: Has the patient had 2 falls in the last year or 1 fall with injury or currently using an Ambulatory Assistive Device (Walker, Cane, Wheelchair, Crutches, etc.)? No PATIENT GENDER DATA: Female. status: : No status: NO. PATIENT RELEVANT IMPLANT DATA REVIEWED: Yes PATIENT PRESENTS WITH AN IMPLANTABLE OR ATTACHED ENVIRONMENTAL JOURNALIST: No RADIOLOGY DEPARTMENT: General X-ray: Exam(s) Completed: Lower Extremity X-Ray(s): Knee, AP / Lat / Merchant Bilateral and Ankle, Bilateral PERIPHERAL IV DATA: Not applicable SIGNED BY: RT Katya(R) July 16, 2024 1:12 [facility] Nurse Note* Josephine Gutierrez MA - 07/12/2024 9:38 AM EDT Patient identified by name and date of . Allergies reviewed. VIS sheet given, VIS date 05/08/2021. Discussed with patient / caregiver with good understanding. Immunization History - influenza (IIV3) vaccine, age 6 mo - 66 yr, trivalent (AFLURIA, FLULAVAL, FLUVIRIN, FLUZONE) (Given) - Date: 07/12/2024 - Lot #: [id number] - Dose: 0.5 mL - Site: Right deltoid - Web Ui Developer: Sanofi Pasteur - Given By: JOSEPHINE GUTIERREZ - Expiration Date: 04/01/2025 Jennifer Christina MD [facility] present in clinic at time of injection. [facility]-10-[facility] Nurse Note* Josephine Gutierrez MA - 07/12/2024 9:38 AM EDT Patient identified by name and date of . Allergies reviewed. VIS sheet given, VIS date 05/08/2021. Discussed with patient / caregiver with good understanding. Immunization History - influenza (IIV3) vaccine, age 6 mo - 66 yr, trivalent (AFLURIA, FLULAVAL, FLUVIRIN, FLUZONE) (Given) - Date: 07/12/2024 - Lot #: [id number] - Dose: 0.5 mL - Site: Right deltoid - Web Ui Developer: Sanofi Pasteur - Given By: JOSEPHINE GUTIERREZ - Expiration Date: 04/01/2025 Jennifer Christina MD [facility]) present in clinic at time of injection. documented in this encounterC[facility]10-10-2024 NoteHNO ID: [id number] Author: JENNIFER CHRISTINA MD Service: ? Author Type: Physician Type: Progress Notes Filed: 07/12/2024 15:03 Note Text: Dr. Jennifer Werner M.D. Primary care [facility] [place] Visit Date: July 12, 2024 9:06 AM Ms.Kelly Jarek Drake Date of : 1985 MRN/E #: [id number] Chief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 IMPRESSION: No acute radiographic abnormality. Pertinent Radiology Results: 07/20/2021 XR lumbar: FINDINGS: There are 5 nonrib-bearing lumbar vertebral bodies. There is a levocurvature of the lumbar spine with apex at L3. There is preservation of vertebral body height. There is mild disc space narrowing at T12/L1. There is mild Schmorl's nodes formation at L1/L2 and L2/L3 and L3/L4. There is mild disc space narrowing at L4/L5 and L5/S1 with mild Schmorl's nodes formation at L5/S1. There is minimal grade 1 retrolisthesis of L1 on L2, L2 on L3 and L4 on L5. Assessment / Plan: (M79.7) Fibromyalgia (primary encounter diagnosis) (R76.8) BING positive The patient presents today for follow up and to discuss flare of pain. She currently has viral illness that started 1 week ago. Has children in daycare and in school who have also been sick. She was given high dose pred from primary care that did not help yesterday, has only had 1 dose so far. Patient does not have typical clinical features of an autoimmune disease like synovitis, typical rash (malar/discoid/Gottron's/heliotrope), objective muscle weakness, uveitis/scleritis, oral/nasal/genital ulcers, scarring alopecia, h/o organ involvement (nephritis, myopericarditis, hematological abnormalities, neuropathies, cerebritis etc) to suggest the presence of an underlying autoimmune disease. The likelihood of an autoimmune disease seems low. False positive BING can occur in 20-30% of people. She has a cough during the appointment, reviewed her CXR from 06/15/24 which did not demonstrate pneumonia or acute changes. She has history of exercise induced asthma, although stable may be exacerbated by her recent viral illness. Unable to get full physical exam due to telemedicine. Recommend follow up with PCP if cough not improving after steroid taper complete. Fibromyalgia was discussed with the patient. Fibromyalgia is a common widespread chronic pain disorder. The understanding of the pain processing dysfunction in fibromyalgia has progressed over the last several years. Research has suggested a neurogenic origin of the widespread pain associated with fibromyalgia. Imbalances of neurochemicals of the [employer] have been associated with allodynia and hyperalgesia. Fibromyalgia varies from one patient to another, which results in different responses to medications used in the disease. Treatment for fibromyalgia involves nonpharmacologic and pharmacologictreatments. Nonpharmacologic therapies are preferred as first line treatment in fibromyalgia and include, but are not limited to, physical therapy, aqua therapy, swimming, Juan Chi, yoga, weight loss,quality sleep / good sleep hygiene, warm / cool compresses, gentle stretching, and cognitive behavioral therapy. Pharmacologic therapies often include TCAs, SNRIs, and gabapentinoids. Patient is currently on lithium, xanax and zoloft, so would not recommend initiation of other antidepressants or gabapentinoids at this time. Could consider pain management or functional medicine. Discussed functional medicine referral, patient agreeable to functional medicine. Referral placed. Continue pred taper as per primary care for viral illness. Will get xrays of knees and ankles given worsening pain, suspect mechanical arthralgia. Patient advised to contact the clinic with questions. Last rheumatology OV note reviewed. Discussed the above in detail with the patient. All questions were answered. Medications: no changes Testing: as below Follow up: [address] Tyler Pt instructed to contact the clinic with concerns or questions. [facility] on 06/21/24 XR KNEE POST OP 3V AP/LAT/MERCHANT LEFT XR KNEE POST OP 3V AP/LAT/MERCHANT RIGHT XR ANKLE GENERAL 3V AP/LAT/OBL RIGHT XR ANKLE GENERAL 3V AP/LAT/OBL LEFT CONSULT TO FUNCTIONAL MEDICINE Fortino Tejeda PA-C I spent a total of 30 minutes on the date of the service which included preparing to see the patient, lmzi-my-okeh patient care, completing clinical documentation, obtaining and/or reviewing separately obtained history, performing a medically appropriate examination, counseling and educating the pat ient/family/caregiver, ordering medications, tests, or procedures, and communicating results to thepatient/family/caregiver. documented in this encounterC[facility] Instructions* Patient Instructions* Kellee Rai APRN.CONTROL SUPERVISOR - 06/20/2024 3:31 PM EDT [facility] PATIENT INFO COMMON COLD OVERVIEW The common cold is one of the most frequent illnesses in the [place]. Although most colds aremild and resolve within a short time period, colds cost billions of dollars per year, mostly due tolost time at work and school. COMMON COLD CAUSES The common cold is a group of symptoms caused by one of a large number of viruses. Rhinoviruses cause the greatest number of colds; there are more than 100 different varieties of rhinovirus. Most viruses cause a person to be ill only once. However, due to the large number of viruses, a person can have a cold multiple times throughout his or her lifetime. The average adult experiences two to threecolds per year, while children average 8 to 12 colds per year. Colds are transmitted from sapybk-ng-ouxxgv. Less often, the virus can be transmitted by touching asurface. Direct contact -- People with colds typically carry the cold virus on their hands. The virus may remain alive on the skin and capable of infecting another person for at least two hours. Thus, if a sick person shakes someone's hand and that individual then touches his eye, nose, or mouth, the virus can be transmitted and later infect that person. Infection from particles on surfaces -- Some cold viruses can live on surfaces (such as a counter top, door handle, or phone) for several hours. Inhaling viral particles -- Droplets containing viral particles can be breathed, coughed, or sneezed into the air by a person with a cold. The virus can be transmitted to others if another person is standing close (a few feet) and the droplet touches that person s eye, nose, or mouth. Covering the mouth while coughing or sneezing greatly reduces this risk. Most cold viruses are not spread by saliva. Thus, kissing itself is not likely to transmit the common cold, but close direct contact can. Colds are not caused by cold climates or being exposed to cold air. However, some types of virus cause more colds during certain seasons (eg, fall and winter versus spring). COMMON COLD SIGNS AND SYMPTOMS The common cold usually causes nasal congestion, runny nose, and sneezing. A sore throat may be present on the first day but usually resolves quickly. If a cough occurs, it generally develops on about the fourth or fifth day of symptoms, typically when congestion and runny nose are usually resolving. COMMON COLD COMPLICATIONS In most cases, colds do not cause serious illness. Most colds last for three to seven days, although many people continue to have symptoms (coughing, sneezing, congestion) for up to two weeks. Some viruses that cause the common cold can also depress the immune system or cause swelling in thelining of the nose or airways; this can, in turn, lead to a new viral infection or bacterial infection. One of the more common complications is sinusitis, which is usually caused by viruses and rarely (about 2 percent of the time) by bacteria. However, it can be difficult to distinguish bacterial sinusitis from sinusitis caused by a cold because the signs and symptoms can be similar Having thick or yellow to green- colored nasal discharge does not mean that bacterial sinusitis has developed; discolored nasal discharge is a normal phase of the common cold. Lower respiratory infections, such as pneumonia or bronchitis, may develop following a cold. Infection of the middle ear, or otitis media, can accompany or follow a cold. The influenza virus, which causes the flu, can also cause features similar to those of a cold. However, the flu usually causes other signs and symptoms (fever, body aches) and is more serious than a cold. COMMON COLD TREATMENT There is no specific treatment for the viruses that cause the common cold. Most treatments are aimed at relieving some of the symptoms of the cold, but do not shorten or cure the cold. Antibiotics are not useful for treating the common cold; antibiotics are only used to treat illnesses caused by bacteria, not viruses. The symptoms of a cold will resolve over time, even without any treatment. The following are treatments that may reduce the symptoms caused by the common cold. People with underlying medical conditions and those who use other ovcr-wzv-wvxdgmr or prescription medications should speak with their healthcare provider or pharmacist to ensure that it is safe to use these treatments. Runny nose and nasal congestion -- Runny nose and congestion may improve with the use of decongestants. Pseudoephedrine is a decongestant that can improve nasal congestion. Most drugstores in the [place] carry pseudoephedrine behind the counter, so it must be requested from the pharmacist (a prescription is not required). Antihistamines such as diphenhydramine (Benadryl ) may also help, but can cause side effects such as drowsiness and drying of the eyes, nose, and mouth. Nasal inhalers, including ipratropium bromide (Atrovent , available by prescription) may relieve runny nose and sneezing while cromolyn sodium (NasalCrom , a non-prescription medicine) may relieve runny nose, cough, and sneezing. Other nasal sprays such an oxymetazoline (Afrin and others) can also give temporary relief of nasalcongestion. However, these sprays should never be used for more than two to three days; use for more than three days use can worsen congestion. Nasal irrigation and saline sprays -- Rinsing the nose with a salt-water (saline) solution is called nasal irrigation or nasal lavage. Saline is also available in a standard nasal spray, although this is not as effective as using larger amounts of water in an irrigation. Nasal irrigation is particularly useful for treating drainage down the back of the throat, sneezing, nasal dryness, and congestion. The treatment helps by rinsing out allergens and irritants from thenose. Saline rinses also clean the nasal lining and can be used before applying sprays containing medications, to get a better effect from the medication. Nasal lavage with warmed saline can be performed as needed, once per day, or twice daily for increased symptoms. Nasal lavage carries few risks when performed correctly. Saline nasal sprays and irrigation kits can be purchased hhbg-sir-jycppmn. Saline mixes can also be purchased or patients can make their own solution. A variety of devices, including bulb syringes, Neti pots, and bottle sprayers, may be used to perform nasal lavage; instructions for nasal lavage are provided in the table. At least 200 mL (about 3/4cup) of fluid is recommended for each nostril. Sore throat and headache -- Sore throat and headache are best treated with a mild pain reliever such as acetaminophen (Tylenol ) or a non-steroidal anti- inflammatory agent such as ibuprofen or naproxen (Motrin or Aleve ). Cough -- Common cough medicine ingredients include guaifenesin and dextromethorphan; these are often combined with other medications in mepe-lom-pqsskum cold formulas. However, the benefit of cough medicines is likely to be small to non-existent. In clinical trials, cough suppressants were no more effective in reducing the duration or severity of coughing due to cold than a placebo (a non-drug substitute). Antibiotics -- Antibiotics should not be used to treat an uncomplicated common cold. As noted above, colds are caused by viruses. Antibiotics treat bacterial, not viral infections. Alternative treatments -- Heated, humidified air can improve symptoms of nasal congestion and runnynose, and causes few to no side effects. PREVENTION Hand washing is an essential and highly effective way to prevent the spread of infection. Hands should be wet with water and plain soap, and rubbed together for 15 to 30 seconds. Special attention should be paid to the fingernails, between the fingers, and the wrists. Hands should be rinsed thoroughly, and dried with a single use towel. Alcohol-based hand rubs are a good alternative for disinfecting hands if a sink is not available. Hand rubs should be spread over the entire surface of hands, fingers, and wrists until dry, and may be used several times. These rubs can be used repeatedly without skin irritation or loss of effectiveness. Hand rubs are available as a liquid or wipe in small, portable sizes that are easy to carry in a pocket or handbag. When a sink is available, visibly soiled hands should be washed with soap and water. Hands should be washed before preparing food and eating, and after coughing, blowing the nose, or sneezing. While it is not always possible to limit contact with people who may be infected with a cold, touching the eyes, nose, or mouth after direct contact should be avoided when possible. In addition, tissues should be used to cover the mouth when sneezing or coughing. These used tissues should be disposed of promptly. Sneezing/coughing into the sleeve of one's clothing (at the inner elbow) is another means of containing sprays of saliva and secretions and does not contaminate the hands. SUMMARY The average adult experiences two to three colds per year, while children average 8 to 12 colds peryear. Symptoms of the common cold usually include nasal congestion, runny nose, and sneezing. They typically last for three to seven days, although many people have symptoms (coughing, sneezing, congestion) for up to two weeks. People with colds typically carry the cold virus on their hands, where it can infect another personfor at least two hours. Some cold viruses can live on surfaces (such as a counter top, door handle,or phone) for several hours. Droplets containing viral particles can be breathed, coughed, or sneezed into the air. There is no specific treatment for colds. Treatment may reduce some of the symptoms of the cold, but do not shorten or cure the cold. Antibiotics are not useful for treating the common cold. Hand washing can prevent the spread of infection. Hands should be wet with water and plain soap, and rubbed together for 15 to 30 seconds. Alcohol-based hand rubs are a good alternative for disinfecting hands if a sink is not available documented in this encounterCincinnati [facility]09-[facility]24 NoteHNO ID: [id number] Author: KELLEE RAI APRN.SARA Service: ? Author Type: Nurse Practitioner Type: Progress Notes Filed: 06/20/2024 15:58 Note Text: This note was created using [employer]. Subjective Lillian Drake is a 38 year old female. Patient presents with Body aches, headache, fatigue and sore throat for 5 days Seen on 06/15 for acute cough and uri Patient denied Covid testing on that visit but would like testing today Review of Systems Constitutional: Positive for chills. Negative for fever. HENT: Positive for congestion and sore throat. Negative for ear pain. Respiratory: Positive for cough. Negative for shortness of breath and wheezing. Gastrointestinal: Positive for nausea. Objective BP 108/62 Pulse 76 Temp 36.4 ?C (97.6 ?F) Resp 16 Wt 74.5 kg (164 lb 3.9 oz) LMP 05/21/2024 (Approximate) SpO2 98% BMI 29.10 kg/m? Physical Exam Constitutional: General: She is not in acute distress. Appearance: Normal appearance. She is not toxic-appearing. HENT: Head: Normocephalic and atraumatic. Right Ear: Tympanic membrane and ear canal normal. Left Ear: Tympanic membrane and ear canal normal. Nose: Congestion present. No rhinorrhea. Mouth/Throat: Pharynx: No oropharyngeal exudate or posterior oropharyngeal erythema. Eyes: Conjunctiva/sclera: Conjunctivae normal. Cardiovascular: Rate and Rhythm: Normal rate and regular rhythm. Heart sounds: Normal heart sounds. Pulmonary: Effort: Pulmonary effort is normal. Breath sounds: Normal breath sounds. Lymphadenopathy: Cervical: No cervical adenopathy. Neurological: Mental Status: She is alert. Assessment and Plan ASSESSMENT/PLAN: 1. Viral URI with cough - ICD9: 465.9, ICD10: J06.9 - Discussed viral etiology and rationale for treatment. - Symptomatic treatment with prn analgesia - Supportive care with fluids and rest - Follow up in 3-5 days if symptoms persist or sooner if worsening of symptoms - Take Bromfed as prescribed at 06/15 visit - COVID AND INFLUENZA A/B AND RSV PCR, ROUTINE Kellee Rai APRN.[facility]09-18-2024 History of Present illness Narrative* Kellee Rai APRN.CONTROL SUPERVISOR - 06/20/2024 3:26 PM EDT This note was created using [employer]. Subjective Lillian Drake is a 38 year old female. Patient presents with Body aches, headache, fatigue and sore throat for 5 days Seen on 06/15 for acute cough and uri Patient denied Covid testing on that visit but would like testing today Review of Systems Constitutional: Positive for chills. Negative for fever. HENT: Positive for congestion and sore throat. Negative for ear pain. Respiratory: Positive for cough. Negative for shortness of breath and wheezing. Gastrointestinal: Positive for nausea. Objective BP 108/62 Pulse 76 Temp 36.4 C (97.6 F) Resp 16 Wt 74.5 kg (164 lb 3.9 oz) LMP 05/21/2024(Approximate) SpO2 98% BMI 29.10 kg/m Physical Exam Constitutional: General: She is not in acute distress. Appearance: Normal appearance. She is not toxic-appearing. HENT: Head: Normocephalic and atraumatic. Right Ear: Tympanic membrane and ear canal normal. Left Ear: Tympanic membrane and ear canal normal. Nose: Congestion present. No rhinorrhea. Mouth/Throat: Pharynx: No oropharyngeal exudate or posterior oropharyngeal erythema. Eyes: Conjunctiva/sclera: Conjunctivae normal. Cardiovascular: Rate and Rhythm: Normal rate and regular rhythm. Heart sounds: Normal heart sounds. Pulmonary: Effort: Pulmonary effort is normal. Breath sounds: Normal breath sounds. Lymphadenopathy: Cervical: No cervical adenopathy. Neurological: Mental Status: She is alert. Assessment and Plan ASSESSMENT/PLAN: 1. Viral URI with cough - ICD9: 465.9, ICD10: J06.9 - Discussed viral etiology and rationale for treatment. - Symptomatic treatment with prn analgesia - Supportive care with fluids and rest - Follow up in 3-5 days if symptoms persist or sooner if worsening of symptoms - Take Bromfed as prescribed at 06/15 visit - COVID & INFLUENZA A/B & RSV PCR, ROUTINE Kellee Rai APRN.CONTROL SUPERVISOR documented in this encounterCincinnati [facility] Telephone encounter Note * Telephone Encounter - Laurel Chisholm - 06/20/2024 2:54 PM EDT Scheduled with a virtual for Fortino [id number] at [address] [place] [address] [facility]an [facility]09-18-[facility] Miscellaneous Notes* Telephone Encounter - Laurel Chisholm - 06/20/2024 2:54 PM EDT Scheduled with a virtual for Fortino [id number] at [address] [place], [place] [address]kyara * Telephone Encounter - Cassie Todd LPN - 06/20/2024 2:01 PM EDT Patient left stating she thinks she is having a flare up of her fibromyalgia. Patient added she missed her one year follow up. Patient had a virtual visit with PCP on 06/19/2024 and received a prednisone 20 mg taper dose with instructions to Take 60 mg for 5 days, then 20 mg for 2 days, 1 pill for 1 day. Patient will need an appointment. Last office visit 11/01/2022. Cassie Todd LPN documented in this encounterCincinnati [facility]09-18-2024 Telephone encounter Note * Telephone Encounter - Cassie Todd LPN - 06/20/2024 2:01 PM EDT Patient left vm stating she thinks she is having a flare up of her fibromyalgia. Patient added she missed her one year follow up. Patient had a virtual visit with PCP on 06/19/2024 and received a prednisone 20 mg taper dose with instructions to Take 60 mg for 5 days, then 20 mg for 2 days, 1 pill for 1 day. Patient will need an appointment. Last office visit 11/01/2022. Cassie Todd LPN [facility]09-17-[facility]24 NoteHNO ID: [id number] Author: PEGGY MEEKS MD Service: ? Author Type: Physician Type: Progress Notes Filed: 06/19/2024 17:45 Note Text: VIRTUAL VISIT PROGRESS NOTE This is a virtual visit using [employer] Zoom Video Visit. It required patient-provider interaction for the medical decision making as documented below. I have communicated my name and active licensure. The patient's identity and physical location were verified at the time of this visit. Either the patient or their legal accounting representative has been informed of the risks and benefits of -- and alternatives to -- treatment through a remote evaluation and consents to proceed with the evaluation remotely. Lillian Drake is pleasant 38 year old female who presents for No chief complaint on file. Pt says she was diagnosed with fibromyalgia 2 years ago Recently had uri COVID TEST was negative She says she had similar episode and was treated with prednisone and it helped Reviewed the record. In October 2022 she was treated with prednisone 60 mg. She says subsequently she was also given 20 mg it did not help so she would like 60 mg dosage The risk and side effects of medications were discussed and explained to patient and was advised to report immediately with any adverse reaction. Advised to follow-up with PCP Pt denies acute chest pain or acute dyspnea.Denies any acute nausea,vomitting or diarrhea.No acute headache or dizziness.No abdominal pain.No hematochezia,shira or hematuria.No recent falls or acute changes in memory or mood.Denies any acute GI/ symptoms.No acute focal weakness,tingling or numbness in extremities. HISTORY REVIEWED (electronic chart updated): PAST MEDICAL HISTORY Diagnosis Date Asthma exercise induced, no asthma attacks since age 19 COVID-19 virus infection 09/28/2021 + Home test. COVID-19 virus infection 08/23/2022 Depression 06/17/2014 Exercise-induced asthma 10/20/2022 Generalized anxiety disorder 2006 Infertility, female PCOS, attempted to conceive for 3 years with 2nd child Irritable bowel syndrome with both constipation and diarrhea 03/30/2018 Major depressive disorder, recurrent episode, unspecified 2006 Miscarriage 2012 Mixed hypertriglyceridemia 03/30/2018 Other migraine, not intractable, without status migrainosus 03/30/2018 Panic disorder without agoraphobia PCOS (polycystic ovarian syndrome) 2009 Polysubstance dependence ([facility]) 06/17/2014 Polysubstance dependence in early, early partial, sustained full, or sustained partial remission ([facility]) 12/10/2014 labor delivered 6 weeks early Recurrent major depressive disorder, in partial remission ([facility]) 11/19/2015 Rh negative state in antepartum period 06/27/2015 SECONDARY AMENORRHEA 06/06/2008 Tobacco use disorder 06/26/2015 PAST SURGICAL HISTORY Procedure Laterality Date DELIVERY ONLY 06/24/2022 Twin , 33 wks COLONOSCOPY FLX DX W/COLLJ SPEC WHEN PFRMD 05/08/2020 Colonoscopy ESOPHAGOGASTRODUODENOSCOPY TRANSORAL DIAGNOSTIC 11/21/2014 EGD ESOPHAGOGASTRODUODENOSCOPY TRANSORAL DIAGNOSTIC 05/08/2020 EGD LIGATE FALLOPIAN TUBE 06/24/2022 FAMILY HISTORY Problem Relation Age of Onset No Known Problems Mother Lipids Father Thyroid Sister No Known Problems Brother No Known Problems Maternal Grandmother Ischemic Heart Disease Maternal Grandfather CA at later age Diabetes Maternal Grandfather Hypertension Maternal Grandfather Thyroid Paternal Grandmother Emphysema Paternal Grandmother No Known Problems Paternal Grandfather ADD/ADHD Son Alcohol/Drug Paternal Aunt No Known Problems Daughter Social History Tobacco Use Smoking status: Every Day Current packs/day: 0.25 Average packs/day: 0.3 packs/day for 10.0 years (2.5 ttl pk-yrs) Types: Cigarettes Smokeless tobacco: Never Tobacco comments: 5 cigarretes a day Vaping Use Vaping status: Never Used Substance Use Topics Alcohol use: No Drug use: Yes Types: Marijuana Comment: occasional Current Outpatient Medications Medication Sig Akepyzoysckkymm-Gzmstpoax-BE (BROMFED DM) 2-30-10 mg/5 mL syrup Take 10 mL by mouth four times a day as needed. sertraline (ZOLOFT) 100 mg tablet take 1 tablet by mouth once daily with 50 milligram tablet ALPRAZolam (XANAX) 0.5 mg tablet Take 1 tablet by mouth two times a day as needed for up to 60 days. benzonatate (TESSALON PERLE) 100 mg capsule Take 2 capsules by mouth three times a day as needed. (Patient not taking: Reported on 06/15/2024) ibuprofen (MOTRIN) 600 mg tablet Take 1 tablet by mouth every 6 hours as needed for pain. tiZANidine (ZANAFLEX) 4 mg tablet Take 1 tablet by mouth three times a day. (Patient not taking: Reported on 04/27/2024) lithium carbonate ER 450 mg CR tablet Take 1 tablet by mouth once daily. Patient should start on March 15, 2024. sertraline (ZOLOFT) 50 mg tablet Take 1 tablet by mouth every evening. - take with 100mg tablet. No curre (more content not included)...[facility]09-17-2024 History of Present illness Narrative* Peggy Meeks MD - 06/19/2024 3:29 PM EDT VIRTUAL VISIT PROGRESS NOTE This is a virtual visit using [employer] Zoom Video Visit. It required patient- provider interaction for the medical decision making as documented below. I have communicated my name and active licensure. The patient's identity and physical location wereverified at the time of this visit. Either the patient or their legal accounting representative has been informed of the risks and benefits of -- and alternatives to -- treatment through a remote evaluation andconsents to proceed with the evaluation remotely. Lillian Drake is pleasant 38 year old female who presents for No chief complaint on file. Pt says she was diagnosed with fibromyalgia 2 years ago Recently had uri COVID TEST was negative She says she had similar episode and was treated with prednisone and it helped Reviewed the record. In October 2022 she was treated with prednisone 60 mg. She says subsequently she was also given 20 mg it did not help so she would like 60 mg dosage The risk and side effects of medications were discussed and explained to patient and was advised toreport immediately with any adverse reaction. Advised to follow-up with PCP Pt denies acute chest pain or acute dyspnea.Denies any acute nausea,vomitting or diarrhea.No acute headache or dizziness.No abdominal pain.No hematochezia,shira or hematuria.No recent falls or acutechanges in memory or mood.Denies any acute GI/ symptoms.No acute focal weakness,tingling or numbne ss in extremities. HISTORY REVIEWED (electronic chart updated): PAST MEDICAL HISTORY Diagnosis Date Asthma exercise induced, no asthma attacks since age 19 COVID-19 virus infection 09/28/2021 + Home test. COVID-19 virus infection 08/23/2022 Depression 06/17/2014 Exercise-induced asthma 10/20/2022 Generalized anxiety disorder 2006 Infertility, female PCOS, attempted to conceive for 3 years with 2nd child Irritable bowel syndrome with both constipation and diarrhea 03/30/2018 Major depressive disorder, recurrent episode, unspecified 2006 Miscarriage 2011 Mixed hypertriglyceridemia 03/30/2018 Other migraine, not intractable, without status migrainosus 03/30/2018 Panic disorder without agoraphobia PCOS (polycystic ovarian syndrome) 2009 Polysubstance dependence (HCC) 06/17/2014 Polysubstance dependence in early, early partial, sustained full, or sustained partial remission (HCC) 12/10/2014 labor delivered 6 weeks early Recurrent major depressive disorder, in partial remission (HCC) 11/19/2015 Rh negative state in antepartum period 06/27/2015 SECONDARY AMENORRHEA 06/06/2008 Tobacco use disorder 06/26/2015 PAST SURGICAL HISTORY Procedure Laterality Date DELIVERY ONLY 06/24/2022 Twin , 33 wks COLONOSCOPY FLX DX W/COLLJ SPEC WHEN PFRMD 05/08/2020 Colonoscopy ESOPHAGOGASTRODUODENOSCOPY TRANSORAL DIAGNOSTIC 11/21/2014 EGD ESOPHAGOGASTRODUODENOSCOPY TRANSORAL DIAGNOSTIC 05/08/2020 EGD LIGATE FALLOPIAN TUBE 06/24/2022 FAMILY HISTORY Problem Relation Age of Onset No Known Problems Mother Lipids Father Thyroid Sister No Known Problems Brother No Known Problems Maternal Grandmother Ischemic Heart Disease Maternal Grandfather CA at later age Diabetes Maternal Grandfather Hypertension Maternal Grandfather Thyroid Paternal Grandmother Emphysema Paternal Grandmother No Known Problems Paternal Grandfather ADD/ADHD Son Alcohol/Drug Paternal Aunt No Known Problems Daughter Social History Tobacco Use Smoking status: Every Day Current packs/day: 0.25 Average packs/day: 0.3 packs/day for 10.0 years (2.5 ttl pk-yrs) Types: Cigarettes Smokeless tobacco: Never Tobacco comments: 5 cigarretes a day Vaping Use Vaping status: Never Used Substance Use Topics Alcohol use: No Drug use: Yes Types: Marijuana Comment: occasional Current Outpatient Medications Medication Sig Dznldmcsvivlseq-Rmvvverhe-DP (BROMFED DM) 2-30-10 mg/5 mL syrup Take 10 mL by mouth four times a day as needed. sertraline (ZOLOFT) 100 mg tablet take 1 tablet by mouth once daily with 50 milligram tablet ALPRAZolam (XANAX) 0.5 mg tablet Take 1 tablet by mouth two times a day as needed for up to 60 days. benzonatate (TESSALON PERLE) 100 mg capsule Take 2 capsules by mouth three times a day as needed. (Patient not taking: Reported on 06/15/2024) ibuprofen (MOTRIN) 600 mg tablet Take 1 tablet by mouth every 6 hours as needed for pain. tiZANidine (ZANAFLEX) 4 mg tablet Take 1 tablet by mouth three times a day. (Patient not taking: Reported on 04/27/2024) lithium carbonate ER 450 mg CR tablet Take 1 tablet by mouth once daily. Patient should start on March 15, 2024. sertraline (ZOLOFT) 50 mg tablet Take 1 tablet by mouth every evening. - take with 100mg tablet. No current facility-administered medications for this visit. ALLERGIES Allergen Reactions Dicyclomine Other: See Comments Severe headache. Lexapro [Escitalopr* Other: See Comments Nausea Penicillins Rash REVIEW OF SYSTEMS: GENERAL: has fatigue, RESPIRATORY: no cough, no wheezing or shortness of breath CARDIOVASCULAR: no chest pain, no palpitations GI: normal appetite, tolerating PO well, BMs normal, and no abdominal pain MUSCULOSKELETAL: has muscle aches NEURO: no numbness or paresthesias and no weakness of the extremities PHYSICAL EXAMINATION: VIDEO EXAM: (if completed, performed via video enabled technology) GENERAL: alert and appropriate, in no distress, well-hydrated, well nourished, and happy, smiling, interactive RESPIRATORY: breathing non-labored CHEST: equal chest rise with normal respiratory effort EXTREMITIES: normal NEUROLOGIC: no obvious deficit ASSESSMENT/PLAN: 1. Fibromyalgia - ICD9: 729.1, ICD10: M79.7 Prednisone The risk and side effects of medications were discussed and explained to patient and was advised toreport immediately with any adverse reaction. Advised to report with any continuing or worsening symptoms and call us sooner ;before any scheduled appointments. Peggy Meeks MD documented [facility] encounterC[facility] Telephone encounter Note * Telephone Encounter - Toney Guillaume LPN - 06/19/2024 8:54 AM EDT Patient has Fibromyalgia and is currently in a flare up and tearful. States her shoulders, arms, hands, wrists, and ankles are sore/painful and she has had a headache for the last 4 days. States thisis her first flare up since diagnosed. Please advise. Toney Guillaume LPN [facility]09-17-[facility]24 Miscellaneous Notes* Telephone Encounter - Toney Guillaume LPN - 06/19/2024 8:54 AM EDT Patient has Fibromyalgia and is currently in a flare up and tearful. States her shoulders, arms, hands, wrists, and ankles are sore/painful and she has had a headache for the last 4 days. States thisis her first flare up since diagnosed. Please advise. Toney Guillaume LPN documented in this encounterC[facility] History of Present illness Narrative* Ross Lee RT(R) - 06/15/2024 4:00 PM EDT Radiology Service Progress Note PATIENT NAME: Lillian Drake DATE OF SERVICE: June 15, 2024 TIME: 3:52 PM PATIENT IDENTITY VERIFICATION COMPLETED USING TWO (2) IDENTIFIERS: Name and Date of confirmedby patient verbally. FALL SCREENING: Has the patient had 2 falls in the last year or 1 fall with injury or currently using an Ambulatory Assistive Device (Walker, Cane, Wheelchair, Crutches, etc.)? No PATIENT GENDER DATA: Female. status: : No status: NO. PATIENT RELEVANT IMPLANT DATA REVIEWED: Yes PATIENT PRESENTS WITH AN IMPLANTABLE OR ATTACHED ENVIRONMENTAL JOURNALIST: No RADIOLOGY DEPARTMENT: General X-ray: Exam(s) Completed: Chest X-Ray PERIPHERAL IV DATA: Not applicable SIGNED BY: RT Giovanni(Gwendolyn) June 15, 2024 3:52 PM documented in this encounterCinc[facility]-2024 NoteHNO ID: [id number] Author: ROSS LEE RT(R) Service: Radiology Author Type: Technologist Type: Progress Notes Filed: 06/15/2024 15:58 Note Text: Radiology Service Progress Note PATIENT NAME: Lillian Drake DATE OF SERVICE: June 15, 2024 TIME: 3:52 PM PATIENT IDENTITY VERIFICATION COMPLETED USING TWO (2) IDENTIFIERS: Name and Date of confirmed by patient verbally. FALL SCREENING: Has the patient had 2 falls in the last year or 1 fall with injury or currently using an Ambulatory Assistive Device (Walker, Cane, Wheelchair, Crutches, etc.)? No PATIENT GENDER DATA: Female. status: : No status: NO. PATIENT RELEVANT IMPLANT DATA REVIEWED: Yes PATIENT PRESENTS WITH AN IMPLANTABLE OR ATTACHED ENVIRONMENTAL JOURNALIST: No RADIOLOGY DEPARTMENT: General X-ray: Exam(s) Completed: Chest X-Ray PERIPHERAL IV DATA: Not applicable SIGNED BY: RT Giovanni(R) June 15, 2024 3:52 [facility]09-13-2024 NoteHNO ID: [id number] Author: TO HARRIS PA Service: ? Author Type: Physician Beater Room Helper Type: Progress Notes Filed: 06/15/2024 16:05 Note Text: This note was created using NoteWriter. Subjective Lillian Drake is a 38 year old female. HPI 38-year-old female presents for cough, congestion, headache, chills, sore throat. Patient states that she has been sick for about 3 days. Her son recently had pneumonia. Patient has chest congestion, feels rattling in the chest, is coughing up some phlegm. She has nasal congestion, headache. No fevers, but has had chills. No vomiting or diarrhea. No other complaint. PAST MEDICAL HISTORY Diagnosis Date Asthma exercise induced, no asthma attacks since age 19 COVID-19 virus infection 09/28/2021 + Home test. COVID-19 virus infection 08/23/2022 Depression 06/17/2014 Exercise-induced asthma 10/20/2022 Generalized anxiety disorder 2006 Infertility, female PCOS, attempted to conceive for 3 years with 2nd child Irritable bowel syndrome with both constipation and diarrhea 03/30/2018 Major depressive disorder, recurrent episode, unspecified 2006 Miscarriage 2012 Mixed hypertriglyceridemia 03/30/2018 Other migraine, not intractable, without status migrainosus 03/30/2018 Panic disorder without agoraphobia PCOS (polycystic ovarian syndrome) 2009 Polysubstance dependence ([facility]) 06/17/2014 Polysubstance dependence in early, early partial, sustained full, or sustained partial remission (HCC) 12/10/2014 labor delivered 6 weeks early Recurrent major depressive disorder, in partial remission ([facility]) 11/19/2015 Rh negative state in antepartum period 06/27/2015 SECONDARY AMENORRHEA 06/06/2008 Tobacco use disorder 06/26/2015 PAST SURGICAL HISTORY Procedure Laterality Date DELIVERY ONLY 06/24/2022 Twin , 33 wks COLONOSCOPY FLX DX W/COLLJ SPEC WHEN PFRMD 05/08/2020 Colonoscopy ESOPHAGOGASTRODUODENOSCOPY TRANSORAL DIAGNOSTIC 11/21/2014 EGD ESOPHAGOGASTRODUODENOSCOPY TRANSORAL DIAGNOSTIC 05/08/2020 EGD LIGATE FALLOPIAN TUBE 06/24/2022 ALLERGIES Dicyclomine, Lexapro [Escitalopram Oxalate], and Penicillins MEDICATIONS sertraline (ZOLOFT) 100 mg tablet take 1 tablet by mouth once daily with 50 milligram tablet ALPRAZolam (XANAX) 0.5 mg tablet Take 1 tablet by mouth two times a day as needed for up to 60 days. ibuprofen (MOTRIN) 600 mg tablet Take 1 tablet by mouth every 6 hours as needed for pain. lithium carbonate ER 450 mg CR tablet Take 1 tablet by mouth once daily. Patient should start on March 15, 2024. sertraline (ZOLOFT) 50 mg tablet Take 1 tablet by mouth every evening. - take with 100mg tablet. benzonatate (TESSALON PERLE) 100 mg capsule Take 2 capsules by mouth three times a day as needed. (Patient not taking: Reported on 06/15/2024) tiZANidine (ZANAFLEX) 4 mg tablet Take 1 tablet by mouth three times a day. (Patient not taking: Reported on 04/27/2024) FAMILY HISTORY Problem Relation Age of Onset No Known Problems Mother Lipids Father Thyroid Sister No Known Problems Brother No Known Problems Maternal Grandmother Ischemic Heart Disease Maternal Grandfather CA at later age Diabetes Maternal Grandfather Hypertension Maternal Grandfather Thyroid Paternal Grandmother Emphysema Paternal Grandmother No Known Problems Paternal Grandfather ADD/ADHD Son Alcohol/Drug Paternal Aunt No Known Problems Daughter Social History Tobacco Use Smoking status: Every Day Current packs/day: 0.25 Average packs/day: 0.3 packs/day for 10.0 years (2.5 ttl pk-yrs) Types: Cigarettes Smokeless tobacco: Never Tobacco comments: 5 cigarretes a day Vaping Use Vaping status: Never Used Substance Use Topics Alcohol use: No Drug use: Yes Types: Marijuana Comment: occasional Review of Systems Constitutional: Positive for chills. Negative for fever. HENT: Positive for congestion and sore throat. Negative for ear pain. Respiratory: Positive for cough. Negative for shortness of breath. Cardiovascular: Negative for chest pain. Gastrointestinal: Negative for abdominal pain, diarrhea and vomiting. Objective BP 96/66 Pulse 77 Temp 36.8 ?C (98.3 ?F) Resp 20 Wt 73 kg (160 lb 15 oz) LMP 05/21/2024 (Approximate) SpO2 98% BMI 28.52 kg/m? Physical Exam Vitals and nursing note reviewed. Constitutional: General: She is not in acute distress. Appearance: Normal appearance. She is not toxic-appearing. HENT: Right Ear: Tympanic membrane and ear canal normal. Left Ear: Tympanic membrane and ear canal normal. Nose: Congestion present. Right Sinus: Frontal sinus tenderness present. Left Sinus: Frontal sinus tenderness present. Mouth/Throat: Mouth: Mucous membranes are moist. Eyes: Conjunctiva/sclera: Conjunctivae normal. Cardiovascular: Rate and Rhythm: Normal rate and regular rhythm. Pulmonary: Effort: Pulmonary effort is normal. Breath sounds: Normal matthias (more content not included)...[facility]09-13-2024 History of Present illness Narrative* To Harris PA - 06/15/2024 3:38 PM EDT This note was created using [employer]. Subjective Lillian Drake is a 38 year old female. HPI 38-year-old female presents for cough, congestion, headache, chills, sore throat. Patient states that she has been sick for about 3 days. Her son recently had pneumonia. Patient has chest congestion, feels rattling in the chest, is coughing up some phlegm. She has nasal congestion, headache. Nofevers, but has had chills. No vomiting or diarrhea. No other complaint. PAST MEDICAL HISTORY Diagnosis Date Asthma exercise induced, no asthma attacks since age 19 COVID-19 virus infection 09/28/2021 + Home test. COVID-19 virus infection 08/23/2022 Depression 06/17/2014 Exercise-induced asthma 10/20/2022 Generalized anxiety disorder 2006 Infertility, female PCOS, attempted to conceive for 3 years with 2nd child Irritable bowel syndrome with both constipation and diarrhea 03/30/2018 Major depressive disorder, recurrent episode, unspecified 2006 Miscarriage 2012 Mixed hypertriglyceridemia 03/30/2018 Other migraine, not intractable, without status migrainosus 03/30/2018 Panic disorder without agoraphobia PCOS (polycystic ovarian syndrome) 2009 Polysubstance dependence (HCC) 06/17/2014 Polysubstance dependence in early, early partial, sustained full, or sustained partial remission (HCC) 12/10/2014 labor delivered 6 weeks early Recurrent major depressive disorder, in partial remission (HCC) 11/19/2015 Rh negative state in antepartum period 06/27/2015 SECONDARY AMENORRHEA 06/06/2008 Tobacco use disorder 06/26/2015 PAST SURGICAL HISTORY Procedure Laterality Date DELIVERY ONLY 06/24/2022 Twin , 33 wks COLONOSCOPY FLX DX W/COLLJ SPEC WHEN PFRMD 05/08/2020 Colonoscopy ESOPHAGOGASTRODUODENOSCOPY TRANSORAL DIAGNOSTIC 11/21/2014 EGD ESOPHAGOGASTRODUODENOSCOPY TRANSORAL DIAGNOSTIC 05/08/2020 EGD LIGATE FALLOPIAN TUBE 06/24/2022 ALLERGIES Dicyclomine, Lexapro [Escitalopram Oxalate], and Penicillins MEDICATIONS sertraline (ZOLOFT) 100 mg tablet take 1 tablet by mouth once daily with 50 milligram tablet ALPRAZolam (XANAX) 0.5 mg tablet Take 1 tablet by mouth two times a day as needed for up to 60 days. ibuprofen (MOTRIN) 600 mg tablet Take 1 tablet by mouth every 6 hours as needed for pain. lithium carbonate ER 450 mg CR tablet Take 1 tablet by mouth once daily. Patient should start on March 15, 2024. sertraline (ZOLOFT) 50 mg tablet Take 1 tablet by mouth every evening. - take with 100mg tablet. benzonatate (TESSALON PERLE) 100 mg capsule Take 2 capsules by mouth three times a day as needed. (Patient not taking: Reported on 06/15/2024) tiZANidine (ZANAFLEX) 4 mg tablet Take 1 tablet by mouth three times a day. (Patient not taking: Reported on 04/27/2024) FAMILY HISTORY Problem Relation Age of Onset No Known Problems Mother Lipids Father Thyroid Sister No Known Problems Brother No Known Problems Maternal Grandmother Ischemic Heart Disease Maternal Grandfather CA at later age Diabetes Maternal Grandfather Hypertension Maternal Grandfather Thyroid Paternal Grandmother Emphysema Paternal Grandmother No Known Problems Paternal Grandfather ADD/ADHD Son Alcohol/Drug Paternal Aunt No Known Problems Daughter Social History Tobacco Use Smoking status: Every Day Current packs/day: 0.25 Average packs/day: 0.3 packs/day for 10.0 years (2.5 ttl pk-yrs) Types: Cigarettes Smokeless tobacco: Never Tobacco comments: 5 cigarretes a day Vaping Use Vaping status: Never Used Substance Use Topics Alcohol use: No Drug use: Yes Types: Marijuana Comment: occasional Review of Systems Constitutional: Positive for chills. Negative for fever. HENT: Positive for congestion and sore throat. Negative for ear pain. Respiratory: Positive for cough. Negative for shortness of breath. Cardiovascular: Negative for chest pain. Gastrointestinal: Negative for abdominal pain, diarrhea and vomiting. Objective BP 96/66 Pulse 77 Temp 36.8 C (98.3 F) Resp 20 Wt 73 kg (160 lb 15 oz) LMP 05/21/2024 (Approximate) SpO2 98% BMI 28.52 kg/m Physical Exam Vitals and nursing note reviewed. Constitutional: General: She is not in acute distress. Appearance: Normal appearance. She is not toxic-appearing. HENT: Right Ear: Tympanic membrane and ear canal normal. Left Ear: Tympanic membrane and ear canal normal. Nose: Congestion present. Right Sinus: Frontal sinus tenderness present. Left Sinus: Frontal sinus tenderness present. Mouth/Throat: Mouth: Mucous membranes are moist. Eyes: Conjunctiva/sclera: Conjunctivae normal. Cardiovascular: Rate and Rhythm: Normal rate and regular rhythm. Pulmonary: Effort: Pulmonary effort is normal. Breath sounds: Normal breath sounds. No wheezing, rhonchi or rales. Skin: General: Skin is warm and dry. Neurological: Mental Status: She is alert. Assessment and Plan ASSESSMENT/PLAN: 1. Acute cough - ICD9: 786.2, ICD10: R05.1 (primary diagnosis) - XR CHEST 2V FRONTAL/LAT-no acute abnormality. 2. URI, acute - ICD9: 465.9, ICD10: J06.9 - Discussed viral etiology and rationale for treatment. - Symptomatic treatment with prn analgesia - Supportive care with fluids and rest -Rx for Bromfed -Declines viral swab Diagnosis and treatment plan were discussed and questions were answered to the patient's satisfaction. Pt acknowledged understanding of concepts and follow up plan. Specific signs and symptoms that would indicate the need for higher level of care were discussed in detail warranting prompt ER evaluation. MARCUS Branham documented in this encounterC[facility] Telephone encounter Note * Telephone Encounter - Krista Bone LPN - 06/05/2024 7:48 AM EDT Pharmacy [facility] message requesting the following refill. Requested Prescriptions Pending Prescriptions Disp Refills sertraline (ZOLOFT) 100 mg tablet [Pharmacy Med Name: SERTRALINE HCL 100 MG TABLET] 90 tablet 1 Sig: take 1 tablet by mouth once daily with 50 milligram tablet Last refill: 02/22/24 Patient last appointment: 06/01/2024 Patient next appointment: 08/28/2024 Patient Phone numbers: [phone] (home) Request is for script(s) to be escript to pharmacy. Krista Bone LPN [facility] Miscellaneous Notes* Telephone Encounter - Krista Bone LPN - 06/05/2024 7:48 AM EDT Pharmacy [facility] message requesting the following refill. Requested Prescriptions Pending Prescriptions Disp Refills sertraline (ZOLOFT) 100 mg tablet [Pharmacy Med Name: SERTRALINE HCL 100 MG TABLET] 90 tablet 1 Sig: take 1 tablet by mouth once daily with 50 milligram tablet Last refill: 02/22/24 Patient last appointment: 06/01/2024 Patient next appointment: 08/28/2024 Patient Phone numbers: [phone] (home) Request is for script(s) to be escript to pharmacy. Krista Bone LPN documented in this encounterCincinnati [facility]08-30-2024 Telephone encounter Note * Telephone Encounter - Krista Bone LPN - 06/01/2024 2:40 PM EDT Pharmacy [facility] message requesting the following refill. Requested Prescriptions Pending Prescriptions Disp Refills ALPRAZolam (XANAX) 0.5 mg tablet [Pharmacy Med Name: ALPRAZOLAM 0.5 MG TABLET] 45 tablet Sig: Take 1 tablet by mouth two times a day as needed. Last refill: 02/22/24 Patient last appointment: 02/22/2024 Patient next appointment: 08/28/2024 Patient Phone numbers: [phone] (home) Request is for script(s) to be escript to pharmacy. Krista Bone LPN [facility] Miscellaneous Notes* Telephone Encounter - Krista Bone LPN - 06/01/2024 2:40 PM EDT Pharmacy [facility] message requesting the following refill. Requested Prescriptions Pending Prescriptions Disp Refills ALPRAZolam (XANAX) 0.5 mg tablet [Pharmacy Med Name: ALPRAZOLAM 0.5 MG TABLET] 45 tablet Sig: Take 1 tablet by mouth two times a day as needed. Last refill: 02/22/24 Patient last appointment: 02/22/2024 Patient next appointment: 08/28/2024 Patient Phone numbers: [phone] (home) Request is for script(s) to be escript to pharmacy. Krista Bone LPN documented in this encounterCincinnati [facility]07-26-[facility] History of Present illness Narrative* Ross Lee RT(Gwendolyn) - 04/27/2024 1:30 PM EDT Radiology Service Progress Note PATIENT NAME: Lillian Drake DATE OF SERVICE: April 27, 2024 TIME: 1:14 PM PATIENT IDENTITY VERIFICATION COMPLETED USING TWO (2) IDENTIFIERS: Name and Date of confirmedby patient verbally. FALL SCREENING: Has the patient had 2 falls in the last year or 1 fall with injury or currently using an Ambulatory Assistive Device (Walker, Cane, Wheelchair, Crutches, etc.)? No PATIENT GENDER DATA: Female. status: : No status: NO. PATIENT RELEVANT IMPLANT DATA REVIEWED: Yes PATIENT PRESENTS WITH AN IMPLANTABLE OR ATTACHED ENVIRONMENTAL JOURNALIST: No RADIOLOGY DEPARTMENT: General X-ray: Exam(s) Completed: Chest X-Ray PERIPHERAL IV DATA: Not applicable SIGNED BY: RT Giovanni(Gwendolyn) April 27, 2024 1:14 PM documented in this encounterCincinnati [facility]07-26-2024 NoteHNO ID: [id number] Author: ROSS LEE RT(R) Service: Radiology Author Type: Technologist Type: Progress Notes Filed: 04/27/2024 13:22 Note Text: Radiology Service Progress Note PATIENT NAME: Lillian Drake DATE OF SERVICE: April 27, 2024 TIME: 1:14 PM PATIENT IDENTITY VERIFICATION COMPLETED USING TWO (2) IDENTIFIERS: Name and Date of confirmed by patient verbally. FALL SCREENING: Has the patient had 2 falls in the last year or 1 fall with injury or currently using an Ambulatory Assistive Device (Walker, Cane, Wheelchair, Crutches, etc.)? No PATIENT GENDER DATA: Female. status: : No status: NO. PATIENT RELEVANT IMPLANT DATA REVIEWED: Yes PATIENT PRESENTS WITH AN IMPLANTABLE OR ATTACHED ENVIRONMENTAL JOURNALIST: No RADIOLOGY DEPARTMENT: General X-ray: Exam(s) Completed: Chest X-Ray PERIPHERAL IV DATA: Not applicable SIGNED BY: RT Giovanni(R) April 27, 2024 1:14 [facility]07-26-2024 NoteHNO ID: [id number] Author: RICKI LAFLEUR APRN.CONTROL SUPERVISOR Service: ? Author Type: Nurse Practitioner Type: Progress Notes Filed: 04/27/2024 13:49 Note Text: Subjective HPI HPI Lillian Drake is a 38 year old female who presents today for CC of cough, congestion, chills, h/a. This started 2 days ago. Has tried otc medication for relief. Symptoms are worsened by nothing. Risk factors sick exposures at home. Smoker. Denies possibility of being . Negative covid test at home. .Patient presents with: Cough: fatigue, chills, headache x 2 days PAST MEDICAL HISTORY Diagnosis Date Asthma exercise induced, no asthma attacks since age 19 COVID-19 virus infection 09/28/2021 + Home test. COVID-19 virus infection 08/23/2022 Depression 06/17/2014 Exercise-induced asthma 10/20/2022 Generalized anxiety disorder 2006 Infertility, female PCOS, attempted to conceive for 3 years with 2nd child Irritable bowel syndrome with both constipation and diarrhea 03/30/2018 Major depressive disorder, recurrent episode, unspecified 2006 Miscarriage 2012 Mixed hypertriglyceridemia 03/30/2018 Other migraine, not intractable, without status migrainosus 03/30/2018 Panic disorder without agoraphobia PCOS (polycystic ovarian syndrome) 2009 Polysubstance dependence (HCC) 06/17/2014 Polysubstance dependence in early, early partial, sustained full, or sustained partial remission (HCC) 12/10/2014 labor delivered 6 weeks early Recurrent major depressive disorder, in partial remission (HCC) 11/19/2015 Rh negative state in antepartum period 06/27/2015 SECONDARY AMENORRHEA 06/06/2008 Tobacco use disorder 06/26/2015 PAST SURGICAL HISTORY Procedure Laterality Date DELIVERY ONLY 06/24/2022 Twin , 33 wks COLONOSCOPY FLX DX W/COLLJ SPEC WHEN PFRMD 05/08/2020 Colonoscopy ESOPHAGOGASTRODUODENOSCOPY TRANSORAL DIAGNOSTIC 11/21/2014 EGD ESOPHAGOGASTRODUODENOSCOPY TRANSORAL DIAGNOSTIC 05/08/2020 EGD LIGATE FALLOPIAN TUBE 06/24/2022 ALLERGIES Dicyclomine, Lexapro [Escitalopram Oxalate], and Penicillins MEDICATIONS suppository base wax 1 Device two times a day. Lidocaine 2% and baclofen 10% in suppository base- place vaginally twice daily ibuprofen (MOTRIN) 600 mg tablet Take 1 tablet by mouth every 6 hours as needed for pain. ALPRAZolam (XANAX) 0.5 mg tablet Take 1 tablet by mouth two times a day as needed for anxiety for up to 90 days. lithium carbonate ER 450 mg CR tablet Take 1 tablet by mouth once daily. Patient should start on March 15, 2024. sertraline (ZOLOFT) 50 mg tablet Take 1 tablet by mouth every evening. - take with 100mg tablet. sertraline (ZOLOFT) 100 mg tablet Take 1 tablet by mouth once daily. tiZANidine (ZANAFLEX) 4 mg tablet Take 1 tablet by mouth three times a day. (Patient not taking: Reported on 04/27/2024) FAMILY HISTORY Problem Relation Age of Onset No Known Problems Mother Lipids Father Thyroid Sister No Known Problems Brother No Known Problems Maternal Grandmother Ischemic Heart Disease Maternal Grandfather CA at later age Diabetes Maternal Grandfather Hypertension Maternal Grandfather Thyroid Paternal Grandmother Emphysema Paternal Grandmother No Known Problems Paternal Grandfather ADD/ADHD Son Alcohol/Drug Paternal Aunt No Known Problems Daughter Social History Tobacco Use Smoking status: Every Day Packs/day: 0.25 Years: 10.00 Additional pack years: 0.00 Total pack years: 2.50 Types: Cigarettes Smokeless tobacco: Never Tobacco comments: 5 cigarretes a day Vaping Use Vaping Use: Never used Substance Use Topics Alcohol use: No Drug use: Yes Types: Marijuana Comment: occasional Review of Systems Constitutional: Positive for chills and malaise/fatigue. Negative for fever. HENT: Positive for congestion and sore throat. Negative for ear pain and nosebleeds. Respiratory: Positive for cough. Negative for shortness of breath and wheezing. Musculoskeletal: Negative for neck pain. Skin: Negative for itching and rash. Objective Blood pressure 122/74, pulse 82, temperature 36.1 ?C (97 ?F), resp. rate 16, weight 69.7 kg (153 lb 10.6 oz), last menstrual period 10/05/2022, SpO2 97%. Physical Exam Constitutional: General: She is not in acute distress. Appearance: She is not toxic-appearing or diaphoretic. HENT: Head: Normocephalic and atraumatic. Nose: Nose normal. Mouth/Throat: Pharynx: Uvula midline. No pharyngeal swelling, oropharyngeal exudate, posterior oropharyngeal erythema or uvula swelling. Eyes: General: Lids are normal. No scleral icterus. Right eye: No discharge. Left eye: No discharge. Conjunctiva/sclera: Conjunctivae normal. Pupils: Pupils are equal, round, and reactive to light. Neck: Trachea: Trachea normal. Cardiovascular: Rate and Rhythm: Normal rate and regular rhythm. Heart sounds: Normal heart sounds. Pulmonary: Effort: Pulmonary effort is no (more content not included)...[facility]07-26-2024 History of Present illness Narrative* Ricki Lafleur APRN.CONTROL SUPERVISOR - 04/27/2024 1:18 PM EDT Subjective HPI HPI Lillian Drake is a 38 year old female who presents today for CC of cough, congestion, chills, h/a. This started 2 days ago. Has tried otc medication for relief. Symptoms are worsened by nothing. Risk factors sick exposures at home. Smoker. Denies possibility of being . Negative covid test at home. .Patient presents with: Cough: fatigue, chills, headache x 2 days PAST MEDICAL HISTORY Diagnosis Date Asthma exercise induced, no asthma attacks since age 19 COVID-19 virus infection 09/28/2021 + Home test. COVID-19 virus infection 08/23/2022 Depression 06/17/2014 Exercise-induced asthma 10/20/2022 Generalized anxiety disorder 2006 Infertility, female PCOS, attempted to conceive for 3 years with 2nd child Irritable bowel syndrome with both constipation and diarrhea 03/30/2018 Major depressive disorder, recurrent episode, unspecified 2006 Miscarriage 2012 Mixed hypertriglyceridemia 03/30/2018 Other migraine, not intractable, without status migrainosus 03/30/2018 Panic disorder without agoraphobia PCOS (polycystic ovarian syndrome) 2008 Polysubstance dependence ([facility]) 06/17/2014 Polysubstance dependence in early, early partial, sustained full, or sustained partial remission (HCC) 12/10/2014 labor delivered 6 weeks early Recurrent major depressive disorder, in partial remission ([facility]) 11/19/2015 Rh negative state in antepartum period 06/27/2015 SECONDARY AMENORRHEA 06/06/2008 Tobacco use disorder 06/26/2015 PAST SURGICAL HISTORY Procedure Laterality Date DELIVERY ONLY 06/24/2022 Twin , 33 wks COLONOSCOPY FLX DX W/COLLJ SPEC WHEN PFRMD 05/08/2020 Colonoscopy ESOPHAGOGASTRODUODENOSCOPY TRANSORAL DIAGNOSTIC 11/21/2014 EGD ESOPHAGOGASTRODUODENOSCOPY TRANSORAL DIAGNOSTIC 05/08/2020 EGD LIGATE FALLOPIAN TUBE 06/24/2022 ALLERGIES Dicyclomine, Lexapro [Escitalopram Oxalate], and Penicillins MEDICATIONS suppository base wax 1 Device two times a day. Lidocaine 2% and baclofen 10% in suppository base- place vaginally twice daily ibuprofen (MOTRIN) 600 mg tablet Take 1 tablet by mouth every 6 hours as needed for pain. ALPRAZolam (XANAX) 0.5 mg tablet Take 1 tablet by mouth two times a day as needed for anxiety for up to 90 days. lithium carbonate ER 450 mg CR tablet Take 1 tablet by mouth once daily. Patient should start on March 15, 2024. sertraline (ZOLOFT) 50 mg tablet Take 1 tablet by mouth every evening. - take with 100mg tablet. sertraline (ZOLOFT) 100 mg tablet Take 1 tablet by mouth once daily. tiZANidine (ZANAFLEX) 4 mg tablet Take 1 tablet by mouth three times a day. (Patient not taking: Reported on 04/27/2024) FAMILY HISTORY Problem Relation Age of Onset No Known Problems Mother Lipids Father Thyroid Sister No Known Problems Brother No Known Problems Maternal Grandmother Ischemic Heart Disease Maternal Grandfather CA at later age Diabetes Maternal Grandfather Hypertension Maternal Grandfather Thyroid Paternal Grandmother Emphysema Paternal Grandmother No Known Problems Paternal Grandfather ADD/ADHD Son Alcohol/Drug Paternal Aunt No Known Problems Daughter Social History Tobacco Use Smoking status: Every Day Packs/day: 0.25 Years: 10.00 Additional pack years: 0.00 Total pack years: 2.50 Types: Cigarettes Smokeless tobacco: Never Tobacco comments: 5 cigarretes a day Vaping Use Vaping Use: Never used Substance Use Topics Alcohol use: No Drug use: Yes Types: Marijuana Comment: occasional Review of Systems Constitutional: Positive for chills and malaise/fatigue. Negative for fever. HENT: Positive for congestion and sore throat. Negative for ear pain and nosebleeds. Respiratory: Positive for cough. Negative for shortness of breath and wheezing. Musculoskeletal: Negative for neck pain. Skin: Negative for itching and rash. Objective Blood pressure 122/74, pulse 82, temperature 36.1 C (97 F), resp. rate 16, weight 69.7 kg (153 lb 10.6 oz), last menstrual period 10/05/2022, SpO2 97%. Physical Exam Constitutional: General: She is not in acute distress. Appearance: She is not toxic-appearing or diaphoretic. HENT: Head: Normocephalic and atraumatic. Nose: Nose normal. Mouth/Throat: Pharynx: Uvula midline. No pharyngeal swelling, oropharyngeal exudate, posterior oropharyngeal erythema or uvula swelling. Eyes: General: Lids are normal. No scleral icterus. Right eye: No discharge. Left eye: No discharge. Conjunctiva/sclera: Conjunctivae normal. Pupils: Pupils are equal, round, and reactive to light. Neck: Trachea: Trachea normal. Cardiovascular: Rate and Rhythm: Normal rate and regular rhythm. Heart sounds: Normal heart sounds. Pulmonary: Effort: Pulmonary effort is normal. Breath sounds: Normal breath sounds. Musculoskeletal: Cervical back: Normal range of motion and neck supple. Lymphadenopathy: Cervical: No cervical adenopathy. Right cervical: No superficial cervical adenopathy. Left cervical: No superficial cervical adenopathy. Skin: Findings: No rash. Neurological: Mental Status: She is alert and oriented to person, place, and time. ASSESSMENT/PLAN: 1. URI, acute - ICD9: 465.9, ICD10: J06.9 (primary diagnosis) - Discussed viral etiology and rationale for treatment. - Symptomatic treatment with prn analgesia - Supportive care with fluids and rest - Follow up in 3-5 days if symptoms persist or sooner if worsening of symptoms - PREDNISONE 20 MG TABLET - BENZONATATE 100 MG CAPSULE 2. Acute cough - ICD9: 786.2, ICD10: R05.1 - XR CHEST 2V FRONTAL/LAT IMPRESSION: No acute radiographic abnormality. Dictated by : MD Ricki HEWITT APRN.CONTROL SUPERVISOR documented [facility] Tele[facility] encounter Note * Telephone Encounter - Veronika Hernandez RN - 03/28/2024 9:34 PM EDT Reason for Call: Pt reports she was in the ED last night, and complains of worsening abdominal cramps, and back/pelvic pain. Pt states medication is not effective, and also complains of urinary incontinence, and bloating. Pt reports her pain is severe, and has been ongoing since yesterday. Outcome: Advised to go to the ED now. Pt verbalized understanding, and plans to follow nursing advice. Reason for Disposition [1] SEVERE pain (e.g., excruciating) AND [2] present > 1 hour Protocols used: Abdominal Pain - [id number] [facility] Miscellaneous Notes* Telephone Encounter - Veronika Hernandez RN - 03/28/2024 9:34 PM EDT Reason for Call: Pt reports she was in the ED last night, and complains of worsening abdominal cramps, and back/pelvic pain. Pt states medication is not effective, and also complains of urinary incontinence, and bloating. Pt reports her pain is severe, and has been ongoing since yesterday. Outcome: Advised to go to the ED now. Pt verbalized understanding, and plans to follow nursing advice. Reason for Disposition [1] SEVERE pain (e.g., excruciating) AND [2] present > 1 hour Protocols used: Abdominal Pain - [id number] documented in this encounterC[facility]06-[facility] Telephone encounter Note * Telephone Encounter - Meron Tubbs - 03/28/2024 4:49 PM EDT Physical Therapy Confirmation number: [id number] [facility]06-[facility] Miscellaneous Notes* Telephone Encounter - Meron Tubbs - 03/28/2024 4:49 PM EDT Physical Therapy Confirmation number: [id number] documented in this encounterC[facility] Nurse Note* Josephine Gutierrez MA - 03/28/2024 4:23 PM EDT Patient has been identified by name and date of : Yes Lillian is here for an injection of Toradol (Ketoralac) 30mg Dose: 1ML Route: Intramuscular Given without incident. Site: Right Buttocks Web Ui Developer: [employer] Lot #: [id number] [facility] #: [id number] Expiration Date: 10/01/2024 Mehran Cooper NP present in clinic at time of injection. The date due for the next injection is N/A. Josephine Gutierrez MA [facility]06-[facility] Nurse Note* Josephine Gutierrez MA - 03/28/2024 4:23 PM EDT Patient has been identified by name and date of : Yes Lillian is here for an injection of Toradol (Ketoralac) 30mg Dose: 1ML Route: Intramuscular Given without incident. Site: Right Buttocks Web Ui Developer: [employer] Lot #: [id number] [facility] #: [id number] Expiration Date: 10/01/2024 Mehran Copoer NP present in clinic at time of injection. The date due for the next injection is N/A. Josephine Gutierrez MA documented in this encounterCinc[facility]06-26-[facility]24 NoteHNO ID: [id number] Author: MEHRAN COOPER APRN.CONTROL SUPERVISOR Service: ? Author Type: Nurse Practitioner Type: Progress Notes Filed: 03/28/2024 16:49 Note Text: [facility] ([place]) [address] [facility] [address] Date of Evaluation: 03/28/2024 Patient Name: Lillian Drake : 1985 Chief Complaint: Patient presents with: Pain: Lower Back, Pelvis Area and Right Thigh. Nursing Intake: Nursing Notes: Josephine Gutierrez MA 03/28/2024 4:27 PM Signed Patient has been identified by name and date of : Yes Lillian is here for an injection of Toradol (Ketoralac) 30mg Dose: 1ML Route: Intramuscular Given without incident. Site: Right Buttocks Web Ui Developer: [employer] Lot #: [id number] [facility] #: [id number] Expiration Date: 10/01/2024 Mehran Cooper NP present in clinic at time of injection. The date due for the next injection is N/A. Josephine Gutierrez MA Subjective Ms. Drake is a 38 year old female who presents for: pain to lower back, pelvis and thigh Pt reports pain began yesterday and is in pelvic area, vaginal , lower back and radiating to bilateral upper thighs. Feelings of pushing to urinate. Hx of pelvic floor dysfunction and attended pelvic PT 8 years ago. She was evaluated at [facility] yesterday. Records not available. She reports pelvic ultrasound was negative. Back Pain This is a recurrent problem. The current episode started yesterday. The problem occurs constantly. The problem has not changed since onset.The pain is associated with no known injury. The pain is present in the lumbar spine, sacro-iliac joint and gluteal region. The quality of the pain is described as stabbing. The pain radiates to the left thigh and right thigh. The pain is moderate. The symptoms are aggravated by bending, certain positions and intercourse. The pain is The same all the time. Associated symptoms include pelvic pain. Pertinent negatives include no fever, no numbness, no weight loss, no abdominal pain, no abdominal swelling, no bowel incontinence, no perianal numbness, no bladder incontinence and no dysuria. She has tried NSAIDs, heat, muscle relaxants and bed rest for the symptoms. The treatment provided no relief. Review of Systems Constitutional: Positive for activity change. Negative for appetite change, chills, diaphoresis, fatigue, fever and weight loss. Gastrointestinal: Negative for abdominal pain and bowel incontinence. Genitourinary: Positive for difficulty urinating, dyspareunia, pelvic pain and vaginal pain. Negative for bladder incontinence, decreased urine volume, dysuria, flank pain, frequency, hematuria, menstrual problem and urgency. Musculoskeletal: Positive for back pain. Negative for arthralgias. Skin: Negative for color change. Neurological: Negative for numbness. PAST MEDICAL HISTORY Diagnosis Date Asthma exercise induced, no asthma attacks since age 19 COVID-19 virus infection 09/28/2021 + Home test. COVID-19 virus infection 08/23/2022 Depression 06/17/2014 Exercise-induced asthma 10/20/2022 Generalized anxiety disorder 2006 Infertility, female PCOS, attempted to conceive for 3 years with 2nd child Irritable bowel syndrome with both constipation and diarrhea 03/30/2018 Major depressive disorder, recurrent episode, unspecified 2006 Miscarriage 2012 Mixed hypertriglyceridemia 03/30/2018 Other migraine, not intractable, without status migrainosus 03/30/2018 Panic disorder without agoraphobia PCOS (polycystic ovarian syndrome) 2009 Polysubstance dependence (HCC) 06/17/2014 Polysubstance dependence in early, early partial, sustained full, or sustained partial remission (HCC) 12/10/2014 labor delivered 6 weeks early Recurrent major depressive disorder, in partial remission (HCC) 11/19/2015 Rh negative state in antepartum period 06/27/2015 SECONDARY AMENORRHEA 06/06/2008 Tobacco use disorder 06/26/2015 PAST SURGICAL HISTORY Procedure Laterality Date DELIVERY ONLY 06/24/2022 Twin , 33 wks COLONOSCOPY FLX DX W/COLLJ SPEC WHEN PFRMD 05/08/2020 Colonoscopy ESOPHAGOGASTRODUODENOSCOPY TRANSORAL DIAGNOSTIC 11/21/2014 EGD ESOPHAGOGASTRODUODENOSCOPY TRANSORAL DIAGNOSTIC 05/08/2020 EGD LIGATE FALLOPIAN TUBE 06/24/2022 FAMILY HISTORY Problem Relation Age of Onset No Known Problems Mother Lipids Father Thyroid Sister No Known Problems Brother No Known Problems Maternal Grandmother Ischemic Heart Disease Maternal Grandfather CA at later age Diabetes Maternal Grandfather Hypertension Maternal Grandfather Thyroid Paternal Grandmother Emphysema Paternal Grandmother No Known Problems Paternal Grandfather ADD/ADHD Son Alcohol/Drug Paternal Aunt No Known Problems Daughter Social History Tobacco Use Smoking status: Every Day Packs/day: 0.25 Years: 10.00 Additional pack years: 0 (more content not included)...[facility]06-26-2024 History of Present illness Narrative* Mehran Cooper, MAURICIO.CONTROL SUPERVISOR - 03/28/2024 3:57 PM EDT Images from the original note were not included. [facility] ([place]) [address] [place] [id number] Date of Evaluation: 03/28/2024 Patient Name: Lillian Drake : 1985 Chief Complaint: Patient presents with: Pain: Lower Back, Pelvis Area and Right Thigh. Nursing Intake: Nursing Notes: Josephine Gutierrez MA 03/28/2024 4:27 PM Signed Patient has been identified by name and date of : Yes Lillian is here for an injection of Toradol (Ketoralac) 30mg Dose: 1ML Route: Intramuscular Given without incident. Site: Right Buttocks Web Ui Developer: [employer] Lot #: [id number] [facility] #: [id number] Expiration Date: 10/01/2024 Mehran Cooper NP present in clinic at time of injection. The date due for the next injection is N/A. Josephine Gutierrez MA Subjective Ms. Drake is a 38 year old female who presents for: pain to lower back, pelvis and thigh Pt reports pain began yesterday and is in pelvic area, vaginal , lower back and radiating to bilateral upper thighs. Feelings of pushing to urinate. Hx of pelvic floor dysfunction and attended pelvic PT 8 years ago. She was evaluated at [facility] yesterday. Records not available. She reports pelvic ultrasound was negative. Back Pain This is a recurrent problem. The current episode started yesterday. The problem occurs constantly. The problem has not changed since onset.The pain is associated with no known injury. The pain is present in the lumbar spine, sacro- iliac joint and gluteal region. The quality of the pain is describedas stabbing. The pain radiates to the left thigh and right thigh. The pain is moderate. The symptoms are aggravated by bending, certain positions and intercourse. The pain is The same all the time. Associated symptoms include pelvic pain. Pertinent negatives include no fever, no numbness, no weightloss, no abdominal pain, no abdominal swelling, no bowel incontinence, no perianal numbness, no bladder incontinence and no dysuria. She has tried NSAIDs, heat, muscle relaxants and bed rest for the symptoms. The treatment provided no relief. Review of Systems Constitutional: Positive for activity change. Negative for appetite change, chills, diaphoresis, fatigue, fever and weight loss. Gastrointestinal: Negative for abdominal pain and bowel incontinence. Genitourinary: Positive for difficulty urinating, dyspareunia, pelvic pain and vaginal pain. Negative for bladder incontinence, decreased urine volume, dysuria, flank pain, frequency, hematuria, menstrual problem and urgency. Musculoskeletal: Positive for back pain. Negative for arthralgias. Skin: Negative for color change. Neurological: Negative for numbness. PAST MEDICAL HISTORY Diagnosis Date Asthma exercise induced, no asthma attacks since age 19 COVID-19 virus infection 09/28/2021 + Home test. COVID-19 virus infection 08/23/2022 Depression 06/17/2014 Exercise-induced asthma 10/20/2022 Generalized anxiety disorder 2006 Infertility, female PCOS, attempted to conceive for 3 years with 2nd child Irritable bowel syndrome with both constipation and diarrhea 03/30/2018 Major depressive disorder, recurrent episode, unspecified 2006 Miscarriage 2012 Mixed hypertriglyceridemia 03/30/2018 Other migraine, not intractable, without status migrainosus 03/30/2018 Panic disorder without agoraphobia PCOS (polycystic ovarian syndrome) 2009 Polysubstance dependence (HCC) 06/17/2014 Polysubstance dependence in early, early partial, sustained full, or sustained partial remission (HCC) 12/10/2014 labor delivered 6 weeks early Recurrent major depressive disorder, in partial remission (HCC) 11/19/2015 Rh negative state in antepartum period 06/27/2015 SECONDARY AMENORRHEA 06/06/2008 Tobacco use disorder 06/26/2015 PAST SURGICAL HISTORY Procedure Laterality Date DELIVERY ONLY 06/24/2022 Twin , 33 wks COLONOSCOPY FLX DX W/COLLJ SPEC WHEN PFRMD 05/08/2020 Colonoscopy ESOPHAGOGASTRODUODENOSCOPY TRANSORAL DIAGNOSTIC 11/21/2014 EGD ESOPHAGOGASTRODUODENOSCOPY TRANSORAL DIAGNOSTIC 05/08/2020 EGD LIGATE FALLOPIAN TUBE 06/24/2022 FAMILY HISTORY Problem Relation Age of Onset No Known Problems Mother Lipids Father Thyroid Sister No Known Problems Brother No Known Problems Maternal Grandmother Ischemic Heart Disease Maternal Grandfather CA at later age Diabetes Maternal Grandfather Hypertension Maternal Grandfather Thyroid Paternal Grandmother Emphysema Paternal Grandmother No Known Problems Paternal Grandfather ADD/ADHD Son Alcohol/Drug Paternal Aunt No Known Problems Daughter Social History Tobacco Use Smoking status: Every Day Packs/day: 0.25 Years: 10.00 Additional pack years: 0.00 Total pack years: 2.50 Types: Cigarettes Smokeless tobacco: Never Tobacco comments: 5 cigarretes a day Vaping Use Vaping Use: Never used Substance Use Topics Alcohol use: No Drug use: Yes Types: Marijuana Comment: occasional Current Outpatient Medications Medication Sig suppository base wax 1 Device two times a day. Lidocaine 2% and baclofen 10% in suppository base- place vaginally twice daily ibuprofen (MOTRIN) 600 mg tablet Take 1 tablet by mouth every 6 hours as needed for pain. tiZANidine (ZANAFLEX) 4 mg tablet Take 1 tablet by mouth three times a day. ALPRAZolam (XANAX) 0.5 mg tablet Take 1 tablet by mouth two times a day as needed for anxiety for up to 90 days. lithium carbonate ER 450 mg CR tablet Take 1 tablet by mouth once daily. Patient should start on March 15, 2024. sertraline (ZOLOFT) 50 mg tablet Take 1 tablet by mouth every evening. - take with 100mg tablet. sertraline (ZOLOFT) 100 mg tablet Take 1 tablet by mouth once daily. No current facility-administered medications for this visit. I have confirmed and edited as necessary the chief complaint, medications, past medical, family andsocial histories obtained by others. Objective BP 101/66 Pulse 84 Resp 18 Ht 5' 2.992 (1.60m) Wt 156 lb (70.8kg) SpO2 99% LMP 10/05/2022 BMI 27.64 kg/(m^2). Physical Exam Vitals reviewed. Constitutional: General: She is not in acute distress. Appearance: Normal appearance. She is well-developed, well-groomed and normal weight. She is not ill-appearing or toxic-appearing. Neurological: Mental Status: She is alert. Psychiatric: Behavior: Behavior is cooperative. ASSESSMENT/PLAN: 1. Pelvic floor dysfunction in female - ICD9: 618.83, ICD10: M62.89 - KETOROLAC 30 MG/ML (1 ML) INJECTION SOLUTION - SUPPOSITORY BASE NO.119 (BULK) WAX-lidocaine 2% with baclofen 10% placed vaginally twice daily - IBUPROFEN 600 MG TABLET - TIZANIDINE 4 MG TABLET - CONSULT TO PHYSICAL THERAPY-pelvic PT Mehran Cooper APRN.SARA No follow-ups on file. Discussed the above with the patient using shared decision making. The patient is in agreement with the diagnostic and treatment plans. documented in this [facility] NoteHNO ID: [id number] Author: SAHIL LIM LPN Service: ?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 NoteHNO ID: [id number] Author: MARY RIVERA LGC Service: ? Author Type: Genetic Counselor Type: Progress Notes Filed: 01/12/2024 22:50 Note Text: Lillian's son ( ) is followed in Genetics and will be undergoing testing which includes parental samples for segregation analysis; a separate report will not be generated. Lillian has agreed to provide a sample for this testing and an order has been placed for her to have blood drawn. Mary Rivera MS, [facility] History of Present illness Narrative* Mary Rivera LGC - 01/12/2024 10:46 PM EDT Lillian's son ( ) is followed in Genetics and will be undergoing testing which includes parental samples for segregation analysis; a separate report will not be generated. Lillian has agreed to provide a sample for this testing and an order has been placed for her to have blood drawn. Mary Rivera MS, [facility] Licensed Genetic Counselor documented in [facility] History of Present illness Narrative* Krista Bone LPN - 12/26/2023 9:45 AM EDT ED Follow Up: called patient and patient stated that she is doing good and scheduled a follow up appointment for 12/28/23 [facility] on [facility]23. 1. How are you feeling since your ED visit? good Have your symptoms improved or resolved? Yes 2. Were you prescribed any medications while in the ED or advised to stop any medication? Yes - If yes, were you able to fill your prescriptions? Yes -if stopped medication, what was the medication? N/a 3. Were you advised to schedule a follow up appointment with your provider? No - If no, Do you feel like you need an appointment scheduled? Yes - If yes, Do you need this scheduled now or has this already been scheduled? Yes 4. Were you able to contact the office or publications editor provider prior to your ED visit? No 5. Is there anything else I can do for you today? No documented in this [facility] Hospital Discharge instructions Patient Education 12/25/2023 12:34:26 Gastritis or Ulcer (No Antibiotic Treatment) Gastritis or Ulcer, No Antibiotic Treatment Gastritis is irritation and inflammation of the stomach lining. This means the lining is red and swollen. It can cause shallow sores in the stomach lining called erosions. An ulcer is a deeper open sore in the lining of the stomach. It may also occur in the first part of the small intestine (duodenum). The causes and symptoms of gastritis and ulcers are very similar. Causes and risk factors for both problems can include: Long-term use of nonsteroidal anti-inflammatory drugs (NSAIDs), such as aspirin and ibuprofen H. pylori bacteria infection Tobacco use Alcohol use Certain other conditions such as immune disorders, certain medicines (high-dose iron supplements) and street drugs (such as cocaine) Symptoms for both problems can include: Dull or burning pain in the upper part of the belly Loss of appetite Heartburn or upset stomach Frequent burping Bloated feeling Nausea with or without vomiting You likely had an evaluation to help find the exact cause and extent of your problem. This may haveincluded a health history, exam, and certain tests. Results showed that your problem is not due to H. pylori infection. For this reason, you don't needantibiotics as part of your treatment. Whether your problem is gastritis or an ulcer, you will still need to take other medicines, however. You will also need to follow instructions to help reduce stomach irritation so your stomach can heal. Home care Take any medicines you re prescribed exactly as directed. Common medicines used to treat gastritis include: oAntacids. These help neutralize the normal acids in your stomach. oProton pump inhibitors. These block your stomach from making any acid. oH2 blockers. These reduce the amount of acid your stomach makes. oBismuth subsalicylate. This helps protect the lining of your stomach from acid. Don't take any NSAIDs during your treatment. If you take NSAID to help treat other health problems,tell your healthcare provider. He or she may need to adjust your medicine plan or change the dosage. Don t use tobacco. Also don t drink alcohol. These products can increase the amount of acid your stomach makes. This can delay healing. It can also worsen symptoms. Follow-up care Follow up with your healthcare provider, or as advised. In some cases, more testing may be needed. When to seek medical advice Call your healthcare provider right away if any of these occur: Fever of 100.4 F (38 C) or higher, or as directed by your healthcare provider Stomach pain that worsens or moves to the lower right part of belly Extreme fatigue Weakness or dizziness Continued weight loss Frequent vomiting, blood in your vomit, or coffee ground-like substance in your vomit Black, tarry, or bloody stools Call 911 Call 911 if any of these occur: Chest pain appears or worsens, or spreads to the back, neck, shoulder, or arm Unusually fast heart rate Trouble breathing or swallowing Confusion Extreme drowsiness or trouble waking up Fainting Large amounts of blood present in vomit or stool [id number] [employer] [place] [address]. All rights reserved. This information is not intended as a substitute for professional medical care. Always follow yourhealthcare professional's instructions. Follow Up Care 12/25/2023 11:09:01 With:JENNIFER WERNER MD Address: [facility] [place] [address] [phone] When:2-4 days [facility] 03-24-2024 Note Discharge Instructions Thank you for allowing [facility] to assist you with your healthcare needs. The following is importantdischarge information regarding your hospital visit. Diagnosis from Today's Visit Epigastric Pain What to Do Next Instructions from Your Care Team No qualifying data available. Post Acute Orders No qualifying data available. You Need to Schedule the Following Appointments Follow Up with JENNIFER WERNER MD When Within 2-4 days Where: [facility] [place] [address]- [phone] Allergies Bentyl penicillin Medications Please ask your primary doctor or pharmacist before taking any other medication not listed, including over the counter drugs, herbal medications, vitamins and or supplements as they may interact withyour home medications. What How Much When Why Instructions Last Dose New famotidine (Pepcid 40 mg oral tablet) 1 tab(s) by mouth Two (2) times a day Duration: 14 Days Printed Prescription Unchanged acetaminophen-hydrocodone ([place] 325- 5 mg oral tablet) 1 tab(s) by mouth Every 6 hours Myalgia Duration: 3 Days Unchanged busPIRone (busPIRone 15 mg oral tablet) Unchanged fenofibrate (fenofibrate 160 mg oral tablet) 1 tab(s) by mouth Once a day Unchanged multivitamin, (PNV Plus oral tablet) Unchanged naproxen (naproxen 500 mg oral tablet) 1 tab(s) by mouth Two (2) times a day as needed for as needed for pain Myalgia Unchanged ondansetron (ondansetron 4 mg oral tablet, disintegrating) 1 tab(s) by mouth Every 6 hours as needed for Nausea/Vomiting Myalgia Unchanged PARoxetine (Paxil 40 mg oral tablet) 1 tab(s) by mouth Once a day Unchanged predniSONE (prednisone 10mg tab (TAPER)) Taper 30-20-10-5 mg x 3 days each dose by mouth Two (2) times a day Duration: 12 Days Unchanged promethazine (promethazine 12.5 mg oral tablet) 1 tab(s) by mouth Every 4 hours as needed for for nausea/vomiting Unchanged promethazine (promethazine 12.5 mg rectal suppository) 1 suppository(ies) in the rectum Every 6 hours Gastroenteritis Please take this list to your next doctor s visit. Bring all medications you take, including over the counter medications, herbals and other supplements with you to your doctor s visit. Patients and families are reminded to discard old lists and to update any records with all medication providers or retail pharmacies. Education Materials Gastritis or Ulcer, No Antibiotic Treatment Gastritis is irritation and inflammation of the stomach lining. This means the lining is red and swollen. It can cause shallow sores in the stomach lining called erosions. An ulcer is a deeper open sore in the lining of the stomach. It may also occur in the first part of the small intestine (duodenum). The causes and symptoms of gastritis and ulcers are very similar. Causes and risk factors for both problems can include: Long-term use of nonsteroidal anti-inflammatory drugs (NSAIDs), such as aspirin and ibuprofen H. pylori bacteria infection Tobacco use Alcohol use Certain other conditions such as immune disorders, certain medicines (high-dose iron supplements) and street drugs (such as cocaine) Symptoms for both problems can include: Dull or burning pain in the upper part of the belly Loss of appetite Heartburn or upset stomach Frequent burping Bloated feeling Nausea with or without vomiting You likely had an evaluation to help find the exact cause and extent of your problem. This may haveincluded a health history, exam, and certain tests. Results showed that your problem is not due to H. pylori infection. For this reason, you don't needantibiotics as part of your treatment. Whether your problem is gastritis or an ulcer, you will still need to take other medicines, however. You will also need to follow instructions to help reduce stomach irritation so your stomach can heal. Home care Take any medicines you re prescribed exactly as directed. Common medicines used to treat gastritis include: oAntacids. These help neutralize the normal acids in your stomach. oProton pump inhibitors. These block your stomach from making any acid. oH2 blockers. These reduce the amount of acid your stomach makes. oBismuth subsalicylate. This helps protect the lining of your stomach from acid. Don't take any NSAIDs during your treatment. If you take NSAID to help treat other health problems,tell your healthcare provider. He or she may need to adjust your medicine plan or change the dosage. Don t use tobacco. Also don t drink alcohol. These products can increase the amount of acid your stomach makes. This can delay healing. It can also worsen symptoms. Follow-up care Follow up with your healthcare provider, or as advised. In some cases, more testing may be needed. When to seek medical advice Call your healthcare provider right away if any of these occur: Fever of 100.4 F (38 C) or higher, or as directed by your healthcare provider Stomach pain that worsens or moves to the lower right part of belly Extreme fatigue Weakness or dizziness Continued weight loss Frequent vomiting, blood in your vomit, or coffee ground-like substance in your vomit Black, tarry, or bloody stools Call 911 Call 911 if any of these occur: Chest pain appears or worsens, or spreads to the back, neck, shoulder, or arm Unusually fast heart rate Trouble breathing or swallowing Confusion Extreme drowsiness or trouble waking up Fainting Large amounts of blood present in vomit or stool [id number] [employer]. [address] [facility], [place] [address]. All rights reserved. This information is not intended as a substitute for professional medical care. Always follow yourhealthcare professional's instructions. Additional Information VACCINATE! IT SAVES LIVES! Members of the community who have not yet received the COVID-19 vaccine and would like to receive it can visit one of [facility] vaccine clinics. There are many vaccine clinic locations within the State. For locations and available times, please visit www.gettheshot.coronavirus.[place].gov/. It is important to note that some COVID mobile vaccine clinics are held outdoors and may be canceled in rainy or stormy conditions. To learn more about pediatric vaccinations (ages 5-11), we invite you to visit the [facility] webpage. [email or web address]/[email or web address] learn more about the COVID-19 vaccine, we invite you to visit the CDC website for a list of frequently asked questions. https://www.cdc.gov/coronavirus/2019-ncov/vaccines/faq.html [facility] Patient Portal Access Instructions: Stay connected with your healthcare team and access your personal medical information anytime with the [facility] [employer] Patient Portal. If you would like a full copy of your medical records please contact the [facility] Medical Records Department Tuesday through Tuesday between 8a.m. and 4:30p.m. Please follow the directions below to access the portal: 1.Access the email account you provided upon registration to the hospital.2.Look for an invitation email from [facility].3.Open the email and access the invitation link: Accept Invitation to [facility]4.Fill in the required trujillo to create your account. Sign into [email or web address] with your username and password that you created in the above steps to stay up to date. You can then view a summary of results, a summary of your visits, and the ability to download your summaries to your computer or send the information securely to a physician. Remember that your healthcare information is confidential, so carefully consider who you will allow to register on the [facility] Patient Portal for access to your information. You can also access the [facility] Patient Portal on the [employer] gabriel. Simply click on Health Records under [employer] and then click on the [employer] logo. HOW TO SAFELY DISPOSE OF PRESCRIPTION MEDICATIONS Please use one of the following methods to safely dispose of your unused medications. 1.Use a drug disposal kit: the drug disposal pouch allows you to safely discard your old and unuseddrugs. Ask your nurse to give you one when you are discharged.2.Visit a local take-back location: Many local pharmacies and police departments have programs that collect old and unwanted prescriptiondrugs. Call your local pharmacy or go to http://Intellio.ChartITright/9O6Ss9s to find one close to you.3.Make use of household items: Use cat litter or old coffee grounds to dispose medications if other options arenot available. Mix your drugs with these household products, seal them in an airtight container andthrow it into the garbage. Call [facility]: [phone] to be sure your drugs can be disposed of in this way. Some medicines may require a different approach.4.Never flush your medications down the toilet. IF YOU HAVE BEEN PRESCRIBED AN OPIOIDS FOR PAIN If you have been prescribed an opioid (such as hydrocodone, oxycodone or morphine), it is critical to understand the possible side effects and risks of opioid pain medications. Even when taken as directed, opioids can have several side effects including: Tolerance, meaning you might need to take more of a medication for the same pain relief. Nausea, vomiting and/or constipation. Sleepiness, dizziness, dry mouth, confusion, depression or itching. Physical dependence, meaning you have withdrawal symptoms when a medication is stopped ? this can develop within a few days. KNOW YOUR RESPONSIBILITIES It is important to know exactly how much and how often to take the opioid pain medications you are prescribed. Never take opioids in higher amounts or more often than prescribed. Do not combine opioids with alcohol or other drugs that cause drowsiness, such as benzodiazepines, also known as benzos,including diazepam and alprazolam, muscle relaxants or sleep aids. Never sell or share prescriptionopioids. This is illegal. Store opioids in a secure place and out of reach of others (including children, family, friends and visitors). The last page(s) of this document has been signed and retained as a CHART COPY Signatures Patient Education Materials Gastritis or Ulcer (No Antibiotic Treatment) Medication Leaflets My discharge plan and instructions have been reviewed and explained to me and I,LILLIAN DRAKE understand my current condition and have read and understand these discharge instructions. I have received a written copy of the plan/instructions. If I have questions, I am aware that I should contact my doctor. 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 [facility] [address] Jennifer Werner M.D. [address], [place], [address] Dept. Dept. VIRTUAL/PHONE VISIT Visit conducted via [employer] / JumpPost Video conference (HIPAA compliant video platform). Patient's PCP: Jennifer Christina MD Visit Date: December 16, 2023, 11:26 AM Ms.Kelly Jarek Drake Date of : 1985 Reason for the visit: Patient presents with: Anxiety There are no exam notes on file for this visit. History of Present Illness Lillian Drake is a 38 year old female. Patient is complaining of follow up on anxiety, and meds. The history is provided by the patient. Anxiety This is a chronic problem. The current episode started more than 1 year ago. The problem is unchanged (pt continues with symptoms. Feels tired all the time, thinks could be related to medications. Sometimes feels jittery). Pertinent negatives include no fever, nausea or vomiting. Treatments tried: on Sertraline 150mg QD for months, self reduced to 100mg QD earlier this week after been 5 days w/o meds. Continues [place] ER 450mg BID. Depression This is a chronic problem. The problem is unchanged. Pertinent negatives include no fever, nausea or vomiting. Treatments tried: on Setraline 150mg QD, pt self reduced to 100mg, continues on [place] ER 450mg BID, would like to reduce, and Levothyroxine 25mcg, not every day. The treatment provided mild relief. ACTIVE PROBLEM LIST Moderate Episode of Recurrent Major Depressive Disorder (Hcc) Generalized Anxiety Disorder Mixed Hyperlipidemia Pcos (Polycystic Ovarian Syndrome) Migraine Headache Marijuana Use, Episodic Exercise-Induced Asthma Bing Positive Fibromyalgia Gerd Without Esophagitis PAST MEDICAL HISTORY Diagnosis Date Asthma exercise induced, no asthma attacks since age 19 COVID-19 virus infection 09/28/2021 + Home test. COVID-19 virus infection 08/23/2022 Depression 06/17/2014 Exercise-induced asthma 10/20/2022 Generalized anxiety disorder 2006 Infertility, female PCOS, attempted to conceive for 3 years with 2nd child Irritable bowel syndrome with both constipation and diarrhea 03/30/2018 Major depressive disorder, recurrent episode, unspecified 2006 Miscarriage 2012 Mixed hypertriglyceridemia 03/30/2018 Other migraine, not intractable, without status migrainosus 03/30/2018 Panic disorder without agoraphobia PCOS (polycystic ovarian syndrome) 2009 Polysubstance dependence (HCC) 06/17/2014 Polysubstance dependence in early, early partial, sustained full, or sustained partial remission (HCC) 12/10/2014 labor delivered 6 weeks early Recurrent major depressive disorder, in partial remission (HCC) 11/19/2015 Rh negative state in antepartum period 06/27/2015 SECONDARY AMENORRHEA 06/06/2008 Tobacco use disorder 06/26/2015 Social History Tobacco Use Smoking status: Every Day Packs/day: 0.25 Years: 10.00 Additional pack years: 0.00 Total pack years: 2.50 Types: Cigarettes Smokeless tobacco: Never Tobacco comments: 5 cigarretes a day Vaping Use Vaping Use: Never used Substance Use Topics Alcohol use: No Drug use: Yes Types: Marijuana Comment: occasional ALLERGIES Allergen Reactions Dicyclomine Other: See Comments Severe headache. Lexapro [Escitalopr* Other: See Comments Nausea Penicillins Rash Current Outpatient Medications Medication Sig sertraline (ZOLOFT) 100 mg tablet Take 1 tablet by mouth once daily. lithium carbonate ER 450 mg CR tablet Take 1 tablet by mouth once daily. ALPRAZolam (XANAX) 0.5 mg tablet Take 1 tablet by mouth once daily as needed for anxiety for up to 60 days. No current facility-administered medications for this visit. Review of Systems Review of Systems Constitutional: Positive for fatigue. Negative for fever. Respiratory: Negative for cough and shortness of breath. Cardiovascular: Negative for chest pain and palpitations. Gastrointestinal: Negative for abdominal pain, diarrhea, nausea and vomiting. Genitourinary: Negative for difficulty urinating and frequency. Skin: Negative for rash. Neurological: Negative for dizziness and headaches. Psychiatric/Behavioral: Positive for depression and sleep disturbance. The patient is nervous/anxious. Physical Exam Physical findings of this patient are as follows: Physical Exam Constitutional: General: She is not in acute distress. Appearance: Normal appearance. She is well-developed. She is not ill-appearing. Pulmonary: Effort: Pulmonary effort is normal. No respiratory distress. Neurological: Mental Status: She is alert and oriented to person, place, and time. Psychiatric: Attention and Perception: She is attentive. Speech: Speech normal. TSH Date Value Ref Range Status 10/14/2023 0.874 0.270 - 4.200 mIU/L Final Comment: If the patient is , TSH reference range varies by gestational period: First Trimester (weeks 9-12): 0.180-2.990 mIU/L Second Trimester: 0.110-3.980 mIU/L Third Trimester: 0.480-4.710 mIU/L Chau Reynolds et al. A Practical Approach for the Verifications and Determination of Site- and Trimester-Specific Reference Intervals for Thyroid Function tests in . Thyroid, 2019:29:3:412-420.Andrews Mishra et al. 2017 Guidelines of the [place] Thyroid Association for the Diagnosis and Management of Thyroid Disease during and the . Thyroid, 2017:27:3:315-389. 06/27/2023 1.610 0.270 - 4.200 mIU/L Final Comment: If the patient is , TSH reference range varies by gestational period: First Trimester (weeks 9-12): 0.180-2.990 mIU/L Second Trimester: 0.110-3.980 mIU/L Third Trimester: 0.480-4.710 mIU/L Chau Reynolds et al. A Practical Approach for the Verifications and Determination of Site- and Trimester-Specific Reference Intervals for Thyroid Function tests in . Thyroid, 2019:29:3:412-420.Andrews Mishra et al. 2017 Guidelines of the [place] Thy[employer] Association for the Diagnosis and Management of Thyroid Disease during and the . Thyroid, 2017:27:3:315-389. No results found for: TSHREFL No results found for: T3 No results found for: FREET3 No results found for: T4 Free T4 Date Value Ref Range Status 10/14/2023 1.0 0.9 - 1.7 ng/dL Final No results found for: [id number] This Team Access Model visit is a virtual encounter. It required patient- provider interaction for the medical decision making as documented below. Assessment and Plan Encounter Diagnosis ICD-10-CM 1. Generalized anxiety disorder F41.1 sertraline (ZOLOFT) 100 mg tablet Was out of medications for 5 days, meds were refilled. Pt would like to wean down meds, as she feels possible causing adverse effects. 2. Bipolar affective disorder, currently manic, moderate (HCC) F31.12 sertraline (ZOLOFT) 100 mg tablet lithium carbonate ER 450 mg CR tablet Thinks is not bipolar. Pt had good response to [place]. She would like to reduce. We'll adjust toQD. Advised to watch symptoms. Return in about 6 weeks (around 01/27/2024) for Depression/Anxiety. Discussed above plan with patient and/or caregiver. Patient and/or caregiver agreeable with above plan. Total visit time: 20 minutes. Jennifer Christina MD, signed on December 16, 2023 11:49 AM documented in this [facility] Miscellaneous Notes* Telephone Encounter - Jennifer Christina MD - 12/14/2023 7:21 AM EDT Medication request reviewed, and approved as written. * Telephone Encounter - May Espino - 12/10/2023 8:10 AM EST Patient Swatchcloudhart message requesting the following refill Refill(s) Requested: Requested Prescriptions Pending Prescriptions Disp Refills sertraline (ZOLOFT) 100 mg tablet 90 tablet 1 Sig: Take 1 tablet by mouth once daily. - take with 50mg tablet. sertraline (ZOLOFT) 50 mg tablet 90 tablet 1 Sig: Take 1 tablet by mouth once daily. - take with 100mg tablet. ALLERGIES Allergen Reactions Dicyclomine Other: See Comments Severe headache. Lexapro [Escitalopr* Other: See Comments Nausea Penicillins Rash (home) [phone] (cell) Last Office Visit Date: 10/14/2023 Last [facility] Health Visit: Visit date not found Future Appointment: 12/16/2023 The patients preferred pharmacy has been captured for this encounter? yes Request is for script(s) to be escript to pharmacy. May Espino documented [facility] encounterC[facility] Miscellaneous Notes* Telephone Encounter - Jennifer Christina MD - 12/02/2023 6:25 PM EST Medication request reviewed, and approved as written. * Telephone Encounter - Antwon Kauffman MA Student - 12/02/2023 1:57 PM EST Patient MyChart message requesting the following refill. Requested Prescriptions Pending Prescriptions Disp Refills ALPRAZolam (XANAX) 0.5 mg tablet 30 tablet 1 Sig: Take 1 tablet by mouth once daily as needed for anxiety for up to 60 days. Last refill: 09/27/2023 Patient last appointment: 10/14/2023 Patient next appointment: 12/16/2023 Patient Phone numbers: [phone] (home) Request is for script(s) to be escript to pharmacy. ROMULO Pittman documented in this encounterC[facility]innati [facility]12-26-[facility]23 Miscellaneous Notes* Telephone Encounter - Jennifer Christina MD - 09/27/2023 8:01 AM EST Chart reviewed, medication refilled. Orders Placed This Encounter ALPRAZolam (XANAX) 0.5 mg tablet Sig: Take 1 tablet by mouth once daily as needed for anxiety for up to 60 days. Dispense: 30 tablet Refill: 1 Pharmacy Information Pharmacy Address Telephone [id number] [address] [place] [address] * Telephone Encounter - Sahil Lim LPN - 09/23/2023 1:36 PM EST Patient responded to questions via MyChart: Hello! I received the voicemail from the nurse. So, I typically take 1 pill a day. Whether that beone pill at one dose or 2 halves if needed. My anxiety has gotten pretty bad. It s hard to get through the day. The medicine provides some relief as well as meditating when I have the chance but withtwins, unfortunately it s not too often. My anxiety is through the roof right now as things at home have gotten harder. I planned to address all of these concerns at my appointment September 02. I meant to reach out and let you know that my daughter came home from school at 10am that day with a fever of 103. Daily tasks are getting so much harder day to day. Here I thought I wasn t taking the medication very much because it was filled 08/17 and I took my last pill around 11am before my son s procedure today. I try to get my refill request in a few days early because I know it can take 72 hours. I am currently still in counseling as well. Please let me know if you have further questions. Nicolasa Lim LPN * Telephone Encounter - Sahil Lim LPN - 09/23/2023 1:13 PM EST LM for patient to contact office regarding PCP questions/concerns below via telephone or MyChart. Sahil Lim LPN * Telephone Encounter - Jennifer Christina MD - 09/23/2023 7:38 AM EST Please call pt and verify. Pt had expressed last visit takes medication, Xanax 1/2-1 tab few times per week. Pt filled #30 tabs on 08/17. Is she running out already? How she has been taking medication lately? Has anxiety symptoms changed? Pending f/u gabriel 10/28. * Telephone Encounter - Sahil Lim LPN - 09/21/2023 10:57 AM EST Patient MyChart message requesting the following refill Refill(s) Requested: Requested Prescriptions Pending Prescriptions Disp Refills ALPRAZolam (XANAX) 0.5 mg tablet 30 tablet 1 Sig: Take 1 tablet by mouth once daily as needed for anxiety for up to 60 days. ALLERGIES Allergen Reactions Dicyclomine Other: See Comments Severe headache. Lexapro [Escitalopr* Other: See Comments Nausea Penicillins Rash (home) [phone] (cell) Last Office Visit Date: 08/09/2023 Last Distance Health Visit: 07/01/2023 Future Appointment: 10/28/23 The patients preferred pharmacy has been captured for this encounter? yes Request is for script(s) to be escript to pharmacy. Sahil Lim LPN documented in this encounterC[facility]12-06-2023 Miscellaneous Notes* Telephone Encounter - Jennifer Christina MD - 09/07/2023 7:38 AM EST Medication request reviewed, and approved as written. * Telephone Encounter - Toney Guillaume LPN - 09/06/2023 9:09 AM EST Patient MyChart message requesting the following refill Refill(s) Requested: Requested Prescriptions Pending Prescriptions Disp Refills sertraline (ZOLOFT) 100 mg tablet 90 tablet 0 Sig: Take 1 tablet by mouth once daily. - take with 50mg tablet. sertraline (ZOLOFT) 50 mg tablet 90 tablet 0 Sig: Take 1 tablet by mouth once daily. - take with 100mg tablet. ALLERGIES Allergen Reactions Dicyclomine Other: See Comments Severe headache. Lexapro [Escitalopr* Other: See Comments Nausea Penicillins Rash (home) [phone] (cell) Last Office Visit Date: 08/09/2023 Last [facility] Health Visit: 07/01/2023 Future Appointment: Visit date not found The patients preferred pharmacy has been captured for this encounter? yes Request is for script(s) to be escript to pharmacy. Toney Guillaume LPN documented in this encounterC[facility]11-27-2023 Miscellaneous Notes* Telephone Encounter - Jennifer Christina MD - 08/29/2023 11:48 AM EST Medication request reviewed, and approved as written. * Telephone Encounter - Basia Carter MA - 08/29/2023 10:12 AM EST Pharmacy MyChart message requesting the following refill. Requested Prescriptions Pending Prescriptions Disp Refills lithium carbonate ER 450 mg CR tablet [Pharmacy Med Name: LITHIUM CARBONATE ER 450 MG TB] 60 tablet2 Sig: take 1 tablet by mouth twice a day Last refill: 05/27/23 Patient last appointment: 08/09/23 Patient next appointment: 09/02/2023 Patient Phone numbers: [phone] (home) Request is for script(s) to be escript to pharmacy. Basia Carter MA documented in this encounterCincinnati [facility]10-30-2023 History of Present illness Narrative* Krista Bone LPN - 08/01/2023 10:22 AM EDT fyi ED Follow Up: called patient and patient stated that she is doing about the same since going to theED. Patient stated that she is going to follow up with OBGYN and will call if she needs anything Patient discharged from [facility] ED on 07/28/23. 1. How are you feeling since your ED visit? same Have your symptoms improved or resolved? No 2. Were you prescribed any medications while in the ED or advised to stop any medication? Yes - If yes, were you able to fill your prescriptions? Yes -if stopped medication, what was the medication? N/a 3. Were you advised to schedule a follow up appointment with your provider? No - If no, Do you feel like you need an appointment scheduled? No - If yes, Do you need this scheduled now or has this already been scheduled? No 4. Were you able to contact the office or publications editor provider prior to your ED visit? No 5. Is there anything else I can do for you today? No documented in this encounterCincinnati [facility]10-18-2023 Miscellaneous Notes* Telephone Encounter - Jennifer Christina MD - 07/20/2023 11:08 AM EDT Chart reviewed, medication refilled. Orders Placed This Encounter ALPRAZolam (XANAX) 0.5 mg tablet Sig: Take 1 tablet by mouth once daily as needed for anxiety for up to 60 days. Dispense: 30 tablet Refill: 1 Pharmacy Information Pharm[facility] Address [facility]phone [id number] [address] [place] [address] Pt has f/u gabriel 09/02/23. PDMP website checked and validated. All prescriptions have been APPROPRIATELY filled. No suspiciousactivity was identified. 07/20/2023 by Jennifer Goodman MD * Telephone Encounter - Sahil Lim LPN - 07/18/2023 2:09 PM EDT Patient MyChart message requesting the following refill Refill(s) Requested: Requested Prescriptions Pending Prescriptions Disp Refills ALPRAZolam (XANAX) 0.5 mg tablet 30 tablet 1 Sig: Take 1 tablet by mouth once daily as needed for anxiety for up to 60 days. ALLERGIES Allergen Reactions Dicyclomine Other: See Comments Severe headache. Lexapro [Escitalopr* Other: See Comments Nausea Penicillins Rash (home) [phone] (cell) Last Office Visit Date: 05/27/2023 Last [facility] Health Visit: 07/01/2023 Future Appointment: 09/02/2023 The patients preferred pharmacy has been captured for this encounter? yes Request is for script(s) to be escript to pharmacy. Sahil Lmi LPN documented in this encounterCincinnati [facility]08-07-2023 Miscellaneous Notes* Telephone Encounter - Jennifer Christina MD - 05/09/2023 10:20 AM EDT Chart reviewed, medication refilled. Orders Placed This Encounter ALPRAZolam (XANAX) 0.5 mg tablet Sig: Take 1 tablet by mouth once daily as needed for anxiety for up to 30 days. Dispense: 20 tablet Refill: 0 Pharmacy Information Pharmacy Address Telephone [id number] [address] [place] [address] Needs f/u appointment before any other refill. Has gabriel sched 05/27/23. * Telephone Encounter - Sahil Lim LPN - 05/09/2023 8:32 AM EDT Patient MyChart message requesting the following refill Refill(s) Requested: Requested Prescriptions Pending Prescriptions Disp Refills ALPRAZolam (XANAX) 0.5 mg tablet 20 tablet 0 Sig: Take 1 tablet by mouth once daily as needed for anxiety for up to 30 days. ALLERGIES Allergen Reactions Dicyclomine Other: See Comments Severe headache. Lexapro [Escitalopr* Other: See Comments Nausea Penicillins Rash (home) [phone] (cell) Last Office Visit Date: 03/03/2023 Last [facility] Health Visit: 12/21/2022 Future Appointment: 05/27/2023 The patients preferred pharmacy has been captured for this encounter? yes Request is for script(s) to be escript to pharmacy. Sahil Lim LPN documented in this encounterC[facility]06-06-2023 Miscellaneous Notes* Telephone Encounter - Jennifer Christina MD - 03/08/2023 11:03 AM EDT Chart reviewed, medication refilled. Orders Placed This Encounter ALPRAZolam (XANAX) 0.5 mg tablet Sig: Take 1 tablet by mouth once daily as needed for up to 30 days. Dispense: 20 tablet Refill: 0 PDMP website checked and validated. All prescriptions have been APPROPRIATELY filled. No suspiciousactivity was identified. 03/08/2023 by Jennifer Goodman MD Pt has appointment next month. Anxiety will be re-assessed. * Telephone Encounter - Sahil Lim LPN - 03/08/2023 8:26 AM EDT Patient MyChart message requesting the following refill Refill(s) Requested: Requested Prescriptions Pending Prescriptions Disp Refills ALPRAZolam (XANAX) 0.5 mg tablet 20 tablet 0 Sig: Take 1 tablet by mouth once daily as needed for up to 30 days. ALLERGIES Allergen Reactions Dicyclomine Other: See Comments Severe headache. Lexapro [Escitalopr* Other: See Comments Nausea Penicillins Rash (home) [phone] (cell) Last Office Visit Date: 03/03/2023 Last Distance Health Visit: 12/21/2022 Future Appointment: 03/30/2023 The patients preferred pharmacy has been captured for this encounter? yes Request is for script(s) to be escript to pharmacy. Sahil Lim LPN documented in this encounterCincinnati [facility]06-06-2023 History of Present illness Narrative* Basia Carter MA - 03/08/2023 9:21 AM EDT ED Follow Up: [facility] on [facility]23. Left message for patient to return call. Basia Carter MA March 08, 2023 9:23 AM documented in this encounterCincinnati [facility]06-04-2023 Hospital Discharge instructions Patient Education 03/06/2023 15:27:48 Abdominal Pain Abdominal Pain Abdominal pain is pain in the stomach or belly area. Everyone has this pain from time to time. In many cases it goes away on its own. But abdominal pain can sometimes be due to a serious problem, such as appendicitis. So it s important to know when to get help. Causes of abdominal pain There are many possible causes of abdominal pain. Common causes in adults include: Constipation, diarrhea, or gas Stomach acid flowing back up into the esophagus (acid reflux or heartburn) Severe acid reflux, called GERD (gastroesophageal reflux disease) A sore in the lining of the stomach or small intestine (peptic ulcer) Inflammation of the gallbladder, liver, or pancreas Gallstones or kidney stones Appendicitis Intestinal blockage An internal organ pushing through a muscle or other tissue (hernia) Urinary tract infections In women, menstrual cramps, fibroids, ovarian cysts, pelvic inflammatory disease, or endometriosis Inflammation or infection of the intestines, including Crohn's disease and ulcerative colitis Irritable bowel syndrome Diagnosing the cause of abdominal pain Your healthcare provider will give you a physical exam help find the cause of your pain. If needed,you will have tests. Belly pain has many possible causes. So it can be hard to find the reason for your pain. Giving details about your pain can help. Tell your provider where and when you feel the pain, and what makes it better or worse. Also let your provider know if you have other symptoms such as: Fever Tiredness Upset stomach (nausea) Vomiting Changes in bathroom habits Blood in the stool or black, tarry stool Weight loss that you can't explain (involuntary weight loss?) Also report any family history of stomach or intestinal problems, or cancers. Tell your provider about all your alcohol use and drug use. Tell your provider about all medicines you use, including herbs, vitamins, and supplements. Treating abdominal pain Some causes of pain need emergency medical treatment right away. These include appendicitis or a bowel blockage. Other problems can be treated with rest, fluids, or medicines. Your healthcare provider can give you specific instructions for treatment or self-care based on what is causing your pain. If you have vomiting or diarrhea, sip water or other clear fluids. When you are ready to eat solid foods again, start with small amounts of rler-wm-zniwqn, low- fat foods. These include apple sauce, toast, or crackers. When to get medical care Call 911 or go to the hospital right away if you: Can t pass stool and are vomiting Are vomiting blood or have bloody diarrhea or black, tarry diarrhea Have chest, neck, or shoulder pain Feel like you might pass out Have pain in your shoulder blades with nausea Have sudden, severe belly pain Have new, severe pain unlike any you have felt before Have a belly that is rigid, hard, and hurts to touch Call your healthcare provider if you have: Pain for more than 5 days Bloating for more than 2 days Diarrhea for more than 5 days A fever of 100.4 F (38 C) or higher, or as directed by your healthcare provider Pain that gets worse Weight loss for no reason Continued lack of appetite Blood in your stool How to prevent abdominal pain Here are some tips to help prevent abdominal pain: Eat smaller amounts of food at each meal. Don't eat greasy, fried, or other high-fat foods. Don't eat foods that give you gas. Exercise regularly. Drink plenty of fluids. To help prevent GERD symptoms: Quit smoking. Reduce alcohol and foods that increase stomach acid. Don't use aspirin or kqzo-wtz-ytddujw pain and fever medicines, if possible. This includes nonsteroidal anti-inflammatory drugs (NSAIDs). Lose excess weight. Finish eating at least 2 hours before you go to bed or lie down. Raise the head of your bed. 9744-1161 [employer]. [address] [place] [address]. All rights reserved. This information is not intended as a substitute for professional medical care. Always follow yourhealthcare professional's instructions. Follow Up Care 03/06/2023 13:53:48 With:Go to emergency room if symptoms worsen Address:Unknown When:2-4 days With:Go to emergency room if symptoms worsen Address:Unknown When:2-4 days [facility] 06-04-2023 Emergency department Discharge summary Discharge Instructions Thank you for allowing [facility] to assist you with your healthcare needs. The following is importantdischarge information regarding your hospital visit. Diagnosis from Today's Visit Pelvic pain What to Do Next Instructions from Your Care Team No qualifying data available. Post Acute Orders No qualifying data available. You Need to Schedule the Following Appointments Follow Up with Go to emergency room if symptoms worsen When Within 2-4 days Follow Up with Go to emergency room if symptoms worsen When Within 2-4 days Allergies Bentyl penicillin Medications Please ask your primary doctor or pharmacist before taking any other medication not listed, including over the counter drugs, herbal medications, vitamins and or supplements as they may interact withyour home medications. What How Much When Why Instructions Last Dose Unchanged acetaminophen- hydrocodone ([place] 325- 5 mg oral tablet) 1 tab(s) by mouth Every 6 hours Myalgia Duration: 3 Days Unchanged busPIRone (busPIRone 15 mg oral tablet) Unchanged fenofibrate (fenofibrate 160 mg oral tablet) 1 tab(s) by mouth Once a day Unchanged multivitamin, (PNV Plus oral tablet) Unchanged naproxen (naproxen 500 mg oral tablet) 1 tab(s) by mouth Two (2) times a day as needed for as needed for pain Myalgia Unchanged ondansetron (ondansetron 4 mg oral tablet, disintegrating) 1 tab(s) by mouth Every 6 hours as needed for Nausea/Vomiting Myalgia Unchanged PARoxetine (Paxil 40 mg oral tablet) 1 tab(s) by mouth Once a day Unchanged predniSONE (prednisone 10mg tab (TAPER)) Taper 30-20-10-5 mg x 3 days each dose by mouth Two (2) times a day Duration: 12 Days Unchanged promethazine (promethazine 12.5 mg oral tablet) 1 tab(s) by mouth Every 4 hours as needed for for nausea/vomiting Unchanged promethazine (promethazine 12.5 mg rectal suppository) 1 suppository(ies) in the rectum Every 6 hours Gastroenteritis Please take this list to your next doctor s visit. Bring all medications you take, including over the counter medications, herbals and other supplements with you to your doctor s visit. Patients and families are reminded to discard old lists and to update any records with all medication providers or retail pharmacies. Education Materials Abdominal Pain Abdominal pain is pain in the stomach or belly area. Everyone has this pain from time to time. In many cases it goes away on its own. But abdominal pain can sometimes be due to a serious problem, such as appendicitis. So it s important to know when to get help. Causes of abdominal pain There are many possible causes of abdominal pain. Common causes in adults include: Constipation, diarrhea, or gas Stomach acid flowing back up into the esophagus (acid reflux or heartburn) Severe acid reflux, called GERD (gastroesophageal reflux disease) A sore in the lining of the stomach or small intestine (peptic ulcer) Inflammation of the gallbladder, liver, or pancreas Gallstones or kidney stones Appendicitis Intestinal blockage An internal organ pushing through a muscle or other tissue (hernia) Urinary tract infections In women, menstrual cramps, fibroids, ovarian cysts, pelvic inflammatory disease, or endometriosis Inflammation or infection of the intestines, including Crohn's disease and ulcerative colitis Irritable bowel syndrome Diagnosing the cause of abdominal pain Your healthcare provider will give you a physical exam help find the cause of your pain. If needed,you will have tests. Belly pain has many possible causes. So it can be hard to find the reason for your pain. Giving details about your pain can help. Tell your provider where and when you feel the pain, and what makes it better or worse. Also let your provider know if you have other symptoms such as: Fever Tiredness Upset stomach (nausea) Vomiting Changes in bathroom habits Blood in the stool or black, tarry stool Weight loss that you can't explain (involuntary weight loss?) Also report any family history of stomach or intestinal problems, or cancers. Tell your provider about all your alcohol use and drug use. Tell your provider about all medicines you use, including herbs, vitamins, and supplements. Treating abdominal pain Some causes of pain need emergency medical treatment right away. These include appendicitis or a bowel blockage. Other problems can be treated with rest, fluids, or medicines. Your healthcare provider can give you specific instructions for treatment or self-care based on what is causing your pain. If you have vomiting or diarrhea, sip water or other clear fluids. When you are ready to eat solid foods again, start with small amounts of mrcu-ic-vwtqjk, low- fat foods. These include apple sauce, toast, or crackers. When to get medical care Call 911 or go to the hospital right away if you: Can t pass stool and are vomiting Are vomiting blood or have bloody diarrhea or black, tarry diarrhea Have chest, neck, or shoulder pain Feel like you might pass out Have pain in your shoulder blades with nausea Have sudden, severe belly pain Have new, severe pain unlike any you have felt before Have a belly that is rigid, hard, and hurts to touch Call your healthcare provider if you have: Pain for more than 5 days Bloating for more than 2 days Diarrhea for more than 5 days A fever of 100.4 F (38 C) or higher, or as directed by your healthcare provider Pain that gets worse Weight loss for no reason Continued lack of appetite Blood in your stool How to prevent abdominal pain Here are some tips to help prevent abdominal pain: Eat smaller amounts of food at each meal. Don't eat greasy, fried, or other high-fat foods. Don't eat foods that give you gas. Exercise regularly. Drink plenty of fluids. To help prevent GERD symptoms: Quit smoking. Reduce alcohol and foods that increase stomach acid. Don't use aspirin or nanh-xkt-rysuvms pain and fever medicines, if possible. This includes nonsteroidal anti-inflammatory drugs (NSAIDs). Lose excess weight. Finish eating at least 2 hours before you go to bed or lie down. Raise the head of your bed. 2632-6201 [employer]. [address] [place] [address], [place] [address]. All rights reserved. This information is not intended as a substitute for professional medical care. Always follow yourhealthcare professional's instructions. Additional Information VACCINATE! IT SAVES LIVES! Members of the community who have not yet received the COVID-19 vaccine and would like to receive it can visit one of [facility] vaccine clinics. There are many vaccine clinic locations within the [facility]. For locations and available times, please visit www.gettheshot.coronavirus.[place].gov/. It is important to note that some COVID mobile vaccine clinics are held outdoors and may be canceled in rainy or stormy conditions. To learn more about pediatric vaccinations (ages 5-11), we invite you to visit the [facility] webpage. https://www.[facility].org/pages/3179-Syqfi-Quxbhogvath-Dqnnqzhkwb-Cfepy-Gco stions.htmlTo learn more about the COVID-19 vaccine, we invite you to visit the CDC website for a list of frequently asked questions. https://www.cdc.gov/coronavirus/2019-ncov/vaccines/faq.html [facility] Patient Portal Access Instructions: Stay connected with your healthcare team and access your personal medical information anytime with the [facility] Patient Portal. If you would like a full copy of your medical records please contact the [facility] Medical Records Department Tuesday through Tuesday between 8a.m. and 4:30p.m. Please follow the directions below to access the portal: 1.Access the email account you provided upon registration to the hospital.2.Look for an invitation email from [facility].3.Open the email and access the invitation link: Accept Invitation to [facility]4.Fill in the required trujillo to create your account. Sign into [email or web address] with your username and password that you created in the above steps to stay up to date. You can then view a summary of results, a summary of your visits, and the ability to download your summaries to your computer or send the information securely to a physician. Remember that your healthcare information is confidential, so carefully consider who you will allow to register on the [facility] [employer] Patient Portal for access to your information. You can also access the [employer] Patient Portal on the [employer] gabriel. Simply click on Health Records under [employer] and then click on the [employer] logo. HOW TO SAFELY DISPOSE OF PRESCRIPTION MEDICATIONS Please use one of the following methods to safely dispose of your unused medications. 1.Use a drug disposal kit: the drug disposal pouch allows you to safely discard your old and unuseddrugs. Ask your nurse to give you one when you are discharged.2.Visit a local take-back location: Many local pharmacies and police departments have programs that collect old and unwanted prescriptiondrugs. Call your local pharmacy or go to http://Intellio.ChartITright/5K2Nj6s to find one close to you.3.Make use of household items: Use cat litter or old coffee grounds to dispose medications if other options arenot available. Mix your drugs with these household products, seal them in an airtight container andthrow it into the garbage. Call [facility]: [phone] to be sure your drugs can be disposed of in this way. Some medicines may require a different approach.4.Never flush your medications down the toilet. IF YOU HAVE BEEN PRESCRIBED AN OPIOIDS FOR PAIN If you have been prescribed an opioid (such as hydrocodone, oxycodone or morphine), it is critical to understand the possible side effects and risks of opioid pain medications. Even when taken as directed, opioids can have several side effects including: Tolerance, meaning you might need to take more of a medication for the same pain relief. Nausea, vomiting and/or constipation. Sleepiness, dizziness, dry mouth, confusion, depression or itching. Physical dependence, meaning you have withdrawal symptoms when a medication is stopped ? this can develop within a few days. KNOW YOUR RESPONSIBILITIES It is important to know exactly how much and how often to take the opioid pain medications you are prescribed. Never take opioids in higher amounts or more often than prescribed. Do not combine opioids with alcohol or other drugs that cause drowsiness, such as benzodiazepines, also known as benzos,including diazepam and alprazolam, muscle relaxants or sleep aids. Never sell or share prescriptionopioids. This is illegal. Store opioids in a secure place and out of reach of others (including children, family, friends and visitors). The last page(s) of this document has been signed and retained as a CHART COPY Signatures Patient Education Materials Abdominal Pain Medication Leaflets My discharge plan and instructions have been reviewed and explained to me and IVIDAL KELLY C understand my current condition and have read and understand these discharge instructions. I have received a written copy of the plan/instructions. If I have questions, I am aware that I should contact my doctor. 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 Moderate stool within the colon. The visceral outlines and fat stripes are within normal limits. No abnormal calcifications project over the renal shadows, expected course of the ureters, and bladder. There are few phleboliths within the pelvis. Right hemidiaphragm is not within the field of view. The minimally included lung bases are clear. No acute osseous abnormality. IMPRESSION: Nonobstructive bowel gas pattern. Moderate stool in the colon I have personally reviewed the images of this examination and agree with the resident's findings and interpretation. Interpreted by: Geovany العراقي MD Preliminary Report By: Ramila Bunn Electronically signed By Geovany العراقي MD Dictated Date: 03/06/2023 3:11:52 PM Prelim Date: 03/06/2023 3:13:18 PM Sign Date: 03/06/2023 3:17:07 PM Ordering Provider: [facility]06[facility]04[facility]2023 Note ORIGINAL EXAMINATION: ONE SUPINE XRAY VIEW(S) OF THE ABDOMEN 03/06/2023 2:55 pm COMPARISON: CT abdomen/pelvis 05/10/2021 HISTORY: ORDERING SYSTEM PROVIDED HISTORY: Left-sided abdominal pain Reason for Exam: abd pain FINDINGS: Nonobstructive bowel gas pattern. Moderate stool within the colon. The visceral outlines and fat stripes are within normal limits. No abnormal calcifications project over the renal shadows, expected course of the ureters, and bladder. There are few phleboliths within the pelvis. Right hemidiaphragm is not within the field of view. The minimally included lung bases are clear. No acute osseous abnormality. IMPRESSION: Nonobstructive bowel gas pattern. Moderate stool in the colon I have personally reviewed the images of this examination and agree with the resident's findings and interpretation. Interpreted by: Geovany العراقي MD Preliminary Report By: Ramila Bunn Electronically signed By Geovany العراقي MD Dictated Date: 03/06/2023 3:11:52 PM Prelim Date: 03/06/2023 3:13:18 PM Sign Date: 03/06/2023 3:17:07 PM Ordering Provider: [facility]06-02-2023 Hospital Discharge instructions Patient Education 03/04/2023 21:37:29 Headache, Unspecified Headache, Unspecified A number of things can cause headaches. The cause of your headache isn t clear. But it doesn t seemto be a sign of any serious illness. Headache affects almost everyone at some time. It is the most common reason people miss days from work or school. You could have a tension headache or a migraine headache. Stress can cause a tension headache. This can happen if you tense the muscles of your shoulders, neck, and scalp without knowing it. If this stress lasts long enough, you may develop a tension headache. It is not clear why migraines occur, but certain things called triggers can raise the risk of having a migraine attack. Migraine triggers may include emotional stress or depression, or by hormone changes during the menstrual cycle. Other triggers include control pills and other medicines, alcohol or caffeine, foods with tyramine (such as aged cheese, wine), eyestrain, weather changes, missed meals, and lack of sleep or oversleeping. Other causes of headache include: Viral illness with high fever Head injury with concussion Sinus, ear, or throat infection Dental pain and jaw joint (TMJ) pain More serious but less common causes of headache include stroke, brain hemorrhage, brain tumor, meningitis, and encephalitis. Home care Follow these tips when taking care of yourself at home: Don t drive yourself home if you were given pain medicine for your headache. Instead, have someone else drive you home. Try to sleep when you get home. You should feel much better when you wake up. Apply heat to the back of your neck to ease a neck muscle spasm. Take care of a migraine headache by putting an ice pack on your forehead or at the base of your skull. If you have nausea or vomiting, eat a light diet until your headache eases. If you have a migraine headache, use sunglasses when in the daylight or around bright indoor lighting until your symptoms get better. Bright glaring light can make this type of headache worse. Follow-up care Follow up with your healthcare provider, or as advised. Talk with your provider if you have frequent headaches. He or she can help figure out a treatment plan. By knowing the earliest signs of headache, and starting treatment right away, you may be able to stop the pain yourself. When to seek medical advice Call your healthcare provider right away if any of these occur: Your head pain suddenly gets worse after sexual intercourse or strenuous activity Your head pain doesn t get better within 24 hours You aren t able to keep liquids down (repeated vomiting) Fever of 100.4 F (38 C) or higher, or as directed by your healthcare provider Stiff neck Extreme drowsiness, confusion, or fainting Dizziness or dizziness with spinning sensation (vertigo) Weakness in an arm or leg or one side of your face You have trouble talking or seeing [id number] [employer]. [address] [place] [address]. All rights reserved. This information is not intended as a substitute for professional medical care. Always follow yourhealthcare professional's instructions. Follow Up Care 03/04/2023 21:14:57 With:ROGER COHEN MD Address: [address] [place] [id number]- When:2-4 days [facility] 06-02-2023 Emergency department Discharge summary Discharge Instructions Thank you for allowing [facility] to assist you with your healthcare needs. The following is importantdischarge information regarding your hospital visit. Diagnosis from Today's Visit Headache What to Do Next Instructions from Your Care Team No qualifying data available. Post Acute Orders No qualifying data available. You Need to Schedule the Following Appointments Follow Up with ROGER COHEN MD When Within 2-4 days Where: [address] [place] [address]- Allergies Bentyl penicillin Medications Please ask your primary doctor or pharmacist before taking any other medication not listed, including over the counter drugs, herbal medications, vitamins and or supplements as they may interact withyour home medications. What How Much When Why Instructions Last Dose Unchanged acetaminophen- hydrocodone ([place] 325- 5 mg oral tablet) 1 tab(s) by mouth Every 6 hours Myalgia Duration: 3 Days Unchanged busPIRone (busPIRone 15 mg oral tablet) Unchanged fenofibrate (fenofibrate 160 mg oral tablet) 1 tab(s) by mouth Once a day Unchanged multivitamin, (PNV Plus oral tablet) Unchanged naproxen (naproxen 500 mg oral tablet) 1 tab(s) by mouth Two (2) times a day as needed for as needed for pain Myalgia Unchanged ondansetron (ondansetron 4 mg oral tablet, disintegrating) 1 tab(s) by mouth Every 6 hours as needed for Nausea/Vomiting Myalgia Unchanged PARoxetine (Paxil 40 mg oral tablet) 1 tab(s) by mouth Once a day Unchanged predniSONE (prednisone 10mg tab (TAPER)) Taper 30-20-10-5 mg x 3 days each dose by mouth Two (2) times a day Duration: 12 Days Unchanged promethazine (promethazine 12.5 mg oral tablet) 1 tab(s) by mouth Every 4 hours as needed for for nausea/vomiting Unchanged promethazine (promethazine 12.5 mg rectal suppository) 1 suppository(ies) in the rectum Every 6 hours Gastroenteritis Please take this list to your next doctor s visit. Bring all medications you take, including over the counter medications, herbals and other supplements with you to your doctor s visit. Patients and families are reminded to discard old lists and to update any records with all medication providers or retail pharmacies. Education Materials Headache, Unspecified A number of things can cause headaches. The cause of your headache isn t clear. But it doesn t seemto be a sign of any serious illness. Headache affects almost everyone at some time. It is the most common reason people miss days from work or school. You could have a tension headache or a migraine headache. Stress can cause a tension headache. This can happen if you tense the muscles of your shoulders, neck, and scalp without knowing it. If this stress lasts long enough, you may develop a tension headache. It is not clear why migraines occur, but certain things called triggers can raise the risk of having a migraine attack. Migraine triggers may include emotional stress or depression, or by hormone changes during the menstrual cycle. Other triggers include control pills and other medicines, alcohol or caffeine, foods with tyramine (such as aged cheese, wine), eyestrain, weather changes, missed meals, and lack of sleep or oversleeping. Other causes of headache include: Viral illness with high fever Head injury with concussion Sinus, ear, or throat infection Dental pain and jaw joint (TMJ) pain More serious but less common causes of headache include stroke, brain hemorrhage, brain tumor, meningitis, and encephalitis. Home care Follow these tips when taking care of yourself at home: Don t drive yourself home if you were given pain medicine for your headache. Instead, have someone else drive you home. Try to sleep when you get home. You should feel much better when you wake up. Apply heat to the back of your neck to ease a neck muscle spasm. Take care of a migraine headache by putting an ice pack on your forehead or at the base of your skull. If you have nausea or vomiting, eat a light diet until your headache eases. If you have a migraine headache, use sunglasses when in the daylight or around bright indoor lighting until your symptoms get better. Bright glaring light can make this type of headache worse. Follow-up care Follow up with your healthcare provider, or as advised. Talk with your provider if you have frequent headaches. He or she can help figure out a treatment plan. By knowing the earliest signs of headache, and starting treatment right away, you may be able to stop the pain yourself. When to seek medical advice Call your healthcare provider right away if any of these occur: Your head pain suddenly gets worse after sexual intercourse or strenuous activity Your head pain doesn t get better within 24 hours You aren t able to keep liquids down (repeated vomiting) Fever of 100.4 F (38 C) or higher, or as directed by your healthcare provider Stiff neck Extreme drowsiness, confusion, or fainting Dizziness or dizziness with spinning sensation (vertigo) Weakness in an arm or leg or one side of your face You have trouble talking or seeing [id number] [employer]. [address] [place] [address]. All rights reserved. This information is not intended as a substitute for professional medical care. Always follow yourhealthcare professional's instructions. Additional Information VACCINATE! IT SAVES LIVES! Members of the community who have not yet received the COVID-19 vaccine and would like to receive it can visit one of [facility] vaccine clinics. There are many vaccine clinic locations within the [facility]. For locations and available times, please visit www.gettheshot.coronavirus.[place].gov/. It is important to note that some COVID mobile vaccine clinics are held outdoors and may be canceled in rainy or stormy conditions. To learn more about pediatric vaccinations (ages 5-11), we invite you to visit the [facility] webpage. https://www.[facility].org/pages/7678-Dygdv-Mmisgluvghb-Adpptpqyvs-Wncax-Djk stions.htmlTo learn more about the COVID-19 vaccine, we invite you to visit the CDC website for a list of frequently asked questions. https://www.cdc.gov/coronavirus/2019-ncov/vaccines/faq.html [facility] [employer] Patient Portal Access Instructions: Stay connected with your healthcare team and access your personal medical information anytime with the [facility] Patient Portal. If you would like a full copy of your medical records please contact the [facility] Medical Records Department Tuesday through Tuesday between 8a.m. and 4:30p.m. Please follow the directions below to access the portal: 1.Access the email account you provided upon registration to the hospital.2.Look for an invitation email from [facility].3.Open the email and access the invitation link: Accept Invitation to [facility]4.Fill in the required trujillo to create your account. Sign into [email or web address] with your username and password that you created in the above steps to stay up to date. You can then view a summary of results, a summary of your visits, and the ability to download your summaries to your computer or send the information securely to a physician. Remember that your healthcare information is confidential, so carefully consider who you will allow to register on the [employer] Patient Portal for access to your information. You can also access the [facility] Patient Portal on the [employer] gabriel. Simply click on Health Records under [employer] and then click on the [employer] logo. HOW TO SAFELY DISPOSE OF PRESCRIPTION MEDICATIONS Please use one of the following methods to safely dispose of your unused medications. 1.Use a drug disposal kit: the drug disposal pouch allows you to safely discard your old and unuseddrugs. Ask your nurse to give you one when you are discharged.2.Visit a local take-back location: Many local pharmacies and police departments have programs that collect old and unwanted prescriptiondrugs. Call your local pharmacy or go to http://CopperKey/8Y9Ip7n to find one close to you.3.Make use of household items: Use cat litter or old coffee grounds to dispose medications if other options arenot available. Mix your drugs with these household products, seal them in an airtight container andthrow it into the garbage. Call [facility]: [phone] to be sure your drugs can be disposed of in this way. Some medicines may require a different approach.4.Never flush your medications down the toilet. IF YOU HAVE BEEN PRESCRIBED AN OPIOIDS FOR PAIN If you have been prescribed an opioid (such as hydrocodone, oxycodone or morphine), it is critical to understand the possible side effects and risks of opioid pain medications. Even when taken as directed, opioids can have several side effects including: Tolerance, meaning you might need to take more of a medication for the same pain relief. Nausea, vomiting and/or constipation. Sleepiness, dizziness, dry mouth, confusion, depression or itching. Physical dependence, meaning you have withdrawal symptoms when a medication is stopped ? this can develop within a few days. KNOW YOUR RESPONSIBILITIES It is important to know exactly how much and how often to take the opioid pain medications you are prescribed. Never take opioids in higher amounts or more often than prescribed. Do not combine opioids with alcohol or other drugs that cause drowsiness, such as benzodiazepines, also known as benzos,including diazepam and alprazolam, muscle relaxants or sleep aids. Never sell or share prescriptionopioids. This is illegal. Store opioids in a secure place and out of reach of others (including children, family, friends and visitors). The last page(s) of this document has been signed and retained as a CHART COPY Signatures Patient Education Materials Headache, Unspecified Medication Leaflets My discharge plan and instructions have been reviewed and explained to me and I,LILLIAN DRAKE understand my current condition and have read and understand these discharge instructions. I have received a written copy of the plan/instructions. If I have questions, I am aware that I should contact my doctor. Patient/Microphone Boom Operator Signature: Date/Time: Relationship to Patient: Witness Name/Signature: Date/Time: [facility]06-02-2023 Miscellaneous Notes* Telephone Encounter - Lillian Lopez RN - 03/04/2023 8:42 PM EDT Reason for Call: pt with severe h/a, recently started on lithium Outcome: advised to go to ED now, agreeable. Reason for Disposition Severe pain in one eye Protocols used: [id number] [facility] History of Present illness Narrative* Jennifer Christina MD - 03/03/2023 11:59 AM EDT Images from the original note were not included. Dr. Jennifer Werner M.D. Primary care [facility] [place] Visit Date: March 03, 2023 11:59 AM Ms.Kelly Jarek Drake Date of : 1985 MRN/E #: [id number] Chief Complaint: Patient presents with: Medication Follow-up There are no exam notes on file for this visit. History of Present Illness Lillian Drake is a 37 year old female. The history is provided by the patient. Anxiety This is a chronic problem. Episode onset: since late teens. Progression since onset: pt had adversereaction, worsened symptoms after starting Duloxetine 30mg, progressively in 3 wks. Irritable, evenquit job. Suspected agents: taking care of twins, and other 2 older children. Relationship issues now. Pertinent negatives include no fever, nausea or vomiting. (Manic reaction with Duloxetine) The treatment provided no relief. Depression This is a chronic problem. Episode onset: since late teens. Progression since onset: starting counseling, gabriel in 2 wks. Pt now feeling little bit better. Pertinent negatives include no fever, nausea or vomiting. Treatments tried: pt now back on Sertraline 100mg. Stopped Duloxetine 1 wk ago. StartedLithium 300mg TID 5 days ago. ACTIVE PROBLEM LIST Fibromyalgia - 12/21/2022 Gerd Without Esophagitis - 12/21/2022 Marijuana Use, Episodic - 10/20/2022 Exercise-Induced Asthma - 10/20/2022 Comment: Stable. Bing Positive - 09/23/2022 Mixed Hyperlipidemia - 03/30/2018 Migraine Headache - 03/30/2018 Pcos (Polycystic Ovarian Syndrome) - 10/03/2008 Mild Episode of Recurrent Major Depressive Disorder (Hcc) Generalized Anxiety Disorder Social History Tobacco Use Smoking status: Every Day Packs/day: 0.25 Years: 10.00 Pack years: 2.50 Types: Cigarettes Smokeless tobacco: Never Tobacco comments: 5 cigarretes a day Vaping Use Vaping Use: Never used Substance Use Topics Alcohol use: No Drug use: Yes Types: Marijuana Comment: occasional Social History Social History Narrative Lives with boyfriend, and her 4 kids. Recent twins 6 months old. ALLERGIES Allergen Reactions Dicyclomine Other: See Comments Severe headache. Lexapro [Escitalopr* Other: See Comments Nausea Penicillins Rash Medication List prior to visit: Current Outpatient Medications on File Prior to Visit Medication Sig DULoxetine (CYMBALTA) 30 mg capsule Take 1 capsule by mouth once daily. ALPRAZolam (XANAX) 0.5 mg tablet Take 1 tablet by mouth once daily as needed for up to 30 days. famotidine (PEPCID) 20 mg tablet Take 1 tablet by mouth twice daily as needed. SUMAtriptan (IMITREX) 25 mg tablet Take 1 tablet by mouth as needed for migraine headache (see administration instructions) (at onset of headache. May repeat after 2 hours.). promethazine (PHENERGAN) 25 mg tablet Take 0.5 tablets by mouth every 6 hours as needed for nausea/vomiting. albuterol HFA (PROVENTIL HFA, VENTOLIN HFA) 90 mcg/actuation inhaler Inhale 2 Puffs as instructed every 4 hours as needed. acetaminophen 650 mg CR tablet Take 650 mg by mouth every 8 hours as needed. lithium carbonate 300 mg tablet Take 1 tablet by mouth three times daily for 5 days. sertraline (ZOLOFT) 100 mg tablet Take 0.5 tablets by mouth every other day for 14 days. No current facility-administered medications on file prior to visit. Review of Systems Review of Systems Constitutional: Negative for fatigue and fever. Respiratory: Negative for cough and shortness of breath. Cardiovascular: Negative for chest pain and palpitations. Gastrointestinal: Negative for abdominal pain, diarrhea, nausea and vomiting. Genitourinary: Negative for difficulty urinating and frequency. Skin: Negative for rash. Neurological: Negative for dizziness and headaches. Psychiatric/Behavioral: Positive for decreased concentration, depression and sleep disturbance (sleeping ~6 hrs or less). Physical Exam BP 116/74 Pulse 80 Resp 18 Ht 5' 2.992 (1.60m) Wt 169 lb (76.7kg) SpO2 97% LMP 10/05/2022 BMI 29.94 kg/(m^2). Last BP 03/03/23 : 116/74 02/07/23 : 113/65 11/12/22 : 115/82 Last Wt 03/03/23 : 76.7 kg (169 lb) 02/07/23 : 76.7 kg (169 lb) 11/12/22 : 78.7 kg (173 lb 8 oz) Physical Exam Vitals reviewed. Constitutional: General: She is not in acute distress. Appearance: She is well-developed. She is not ill-appearing. HENT: Head: Normocephalic and atraumatic. Neck: Thyroid: No thyroid mass. Trachea: No tracheal deviation. Cardiovascular: Rate and Rhythm: Normal rate and regular rhythm. No extrasystoles are present. Heart sounds: S1 normal and S2 normal. No murmur heard. Pulmonary: Effort: Pulmonary effort is normal. No respiratory distress. Breath sounds: No decreased breath sounds, wheezing, rhonchi or rales. Musculoskeletal: General: Normal range of motion. Skin: Findings: No lesion. Neurological: General: No focal deficit present. Mental Status: She is alert and oriented to person, place, and time. Psychiatric: Attention and Perception: She is attentive. Mood and Affect: Mood is not anxious or depressed. Speech: Speech normal. Speech is not delayed. Behavior: Behavior normal. Behavior is cooperative. Thought Content: Thought content normal. Thought content is not paranoid or delusional. Thought content does not include suicidal ideation. Judgment: Judgment normal. Current and/or previous PHQ-9 results CP PHQ9 02/07/2023 Little interest or pleasure 1 - Several days Feeling down, depressed, hopeless 1 - Several days Trouble falling or staying asleep, sleeping too much 0 - Not at all Feeling tired, having little energy 2 - More than half the days Poor appetite or overeating 2 - More than half the days Feeling bad about yourself, failure or you have let yourself/family down 1 - Several days Trouble concentrating on things 3 - Nearly every day Moving or speaking so slowly, or fidgety or restless 0 - Not at all Thoughts that you would be better off , or of hurting yourself in some way 0 - Not at all How difficult have these problems made things Very difficult Interpretation of Total Score 10-14 Moderate depression Current and/or previous DARYA-7 scale results DARYA-7 ANXIETY SCALE 02/07/2023 06/22/2019 10/11/2014 FEELING NERVOUS,ANXIOUS,OR ON EDGE 3 Nearly every day 3 Nearly every day 3 Nearly every day NOT BEING ABLE TO STOP OR CONTROL WORRYING 3 Nearly every day 3 Nearly every day 3 Nearly every day WORRYING TOO MUCH ABOUT DIFFERENT THINGS 3 Nearly every day 3 Nearly every day 3 Nearly every day TROUBLE RELAXING 3 Nearly every day 3 Nearly every day 3 Nearly every day BEING SO RESTLESS THAT IT'S HARD TO SIT STILL 3 Nearly every day 3 Nearly every day 3 Nearly every day BEING EASILY ANNOYED OR IRRITABLE 3 Nearly every day 3 Nearly every day 2 Over half the days FEELING AFRAID IF SOMETHING AWFUL MIGHT HAPPEN 3 Nearly every day 2 Over half the days 3 Nearly every day GAD7 SCORE 21 20 20 IF YOU CHECKED OFF ANY PROBLEMS Extremely difficult Very difficult Very difficult Mood Problems Total Score: 13 (03/03/2023 2:45 PM) Visit Diagnoses (F31.12) Bipolar affective disorder, currently manic, moderate (HCC) (primary encounter diagnosis) (F41.1) Generalized anxiety disorder Assessment and Plan Encounter Diagnosis ICD-10-CM 1. Bipolar affective disorder, currently manic, moderate (HCC) F31.12 sertraline (ZOLOFT) 100 mg tablet lithium carbonate ER 450 mg CR tablet Hx reviewed, MDQ completed, suggesting Bipolar Disorder as diagnosis. Manic response to Cymbalta. Now on [place], seems is helping, we'll cont. 2. Generalized anxiety disorder F41.1 sertraline (ZOLOFT) 100 mg tablet Pt back on Zoloft, effective in the past, we'll continue. Medication orders placed this encounter lithium carbonate ER 450 mg CR tablet Sig: Take 1 tablet by mouth twice daily. Dispense: 60 tablet Refill: 2 sertraline (ZOLOFT) 100 mg tablet Sig: Take 1 tablet by mouth once daily. Dispense: 90 tablet Refill: 0 Goals Addressed None Discussed above plan with patient and/or caregiver. Patient and/or caregiver agreeable with above plan. Return in about 27 days (around 03/30/2023) for Depression/Anxiety. Jennifer Christina MD, signed on 03/03/2023 2:48 PM documented in this encounterC[facility] Miscellaneous Notes* Telephone Encounter - Ana Lilia Sterling - 02/26/2023 1:44 PM EDT I spoke to patient and scheduled her next week 03/03/23 at 11:40 documented in this encounterC[facility]05-[facility]23 Miscellaneous Notes* Telephone Encounter - Jennifer Christina MD - 02/08/2023 6:04 PM EDT Chart reviewed, medication refilled. Orders Placed This Encounter DULoxetine (CYMBALTA) 30 mg capsule Sig: Take 1 capsule by mouth once daily. Dispense: 60 capsule Refill: 0 Pharmacy Information Pharmacy Address [id number] [address] [place] [id number] * Telephone Encounter - Natalee Sparrow MA - 02/08/2023 8:40 AM EDT Pharmacy faxed requesting the following refill Requested Prescriptions Pending Prescriptions Disp Refills DULoxetine (CYMBALTA) 30 mg capsule 60 capsule 0 Sig: Take 1 capsule by mouth once daily. Allergies: Dicyclomine, Lexapro [Escitalopram Oxalate], and Penicillins (home) [phone] (cell) Last Visit date: 02/07/2023 Future appointment: 03/30/2023 The patients preferred pharmacy has been captured for this encounter? yes Request is for script(s) to be faxed to pharmacy. OARRS Report for this patient was checked and validated:Not applicable Natalee Sparrow MA documented in this encounterCinc[facility]05-08-[facility]23 History of Present illness Narrative* Jennifer Christina MD - 02/07/2023 9:07 AM EDT Images from the original note were not included. Dr. Jennifer Werner M.D. Primary care [facility] - [place] Visit Date: February 07, 2023 9:07 AM Ms.Kelly Jarek Drake Date of : 1985 MRN/E #: [id number] Chief Complaint: Patient presents with: Follow Up: Go over Medication There are no exam notes on file for this visit. History of Present Illness Lillian Drake is a 37 year old female. The history is provided by the patient. Anxiety This is a chronic problem. Progression since onset: continues with anxiety symptoms, unable to relax, night symptoms. Suspected agents: taking care of twins, and other 2 older children. Relationship issues now. Pertinent negatives include no fever, nausea or vomiting. Treatments tried: on Sertraline 50mg QD. The treatment provided no relief. Headache This is a chronic (Migraines) problem. Progression since onset: follows with Neurologist. Has been well controlled with tx, and lifestyles adjustments. Pertinent negatives include no fever, no palpitations, no shortness of breath, no nausea and no vomiting. She has tried acetaminophen, NSAIDs and triptan therapy for the symptoms. The treatment provided mild relief. ACTIVE PROBLEM LIST Fibromyalgia - 12/21/2022 Gerd Without Esophagitis - 12/21/2022 Marijuana Use, Episodic - 10/20/2022 Exercise-Induced Asthma - 10/20/2022 Comment: Stable. Bing Positive - 09/23/2022 Mixed Hyperlipidemia - 03/30/2018 Migraine Headache - 03/30/2018 Pcos (Polycystic Ovarian Syndrome) - 10/03/2008 Mild Episode of Recurrent Major Depressive Disorder (Hcc) Generalized Anxiety Disorder Social History Tobacco Use Smoking status: Every Day Packs/day: 0.25 Years: 10.00 Pack years: 2.50 Types: Cigarettes Smokeless tobacco: Never Tobacco comments: 5 cigarretes a day Vaping Use Vaping Use: Never used Substance Use Topics Alcohol use: No Drug use: Yes Types: Marijuana Comment: occasional Social History Social History Narrative Lives with boyfriend, and her 4 kids. Recent twins 6 months old. ALLERGIES Allergen Reactions Dicyclomine Other: See Comments Severe headache. Lexapro [Escitalopr* Other: See Comments Nausea Penicillins Rash Medication List prior to visit: Current Outpatient Medications on File Prior to Visit Medication Sig ALPRAZolam (XANAX) 0.5 mg tablet Take 1 tablet by mouth once daily as needed for up to 30 days. famotidine (PEPCID) 20 mg tablet Take 1 tablet by mouth twice daily as needed. sertraline (ZOLOFT) 100 mg tablet Take 1 tablet by mouth once daily for 30 days, THEN 0.5 tablets once daily. SUMAtriptan (IMITREX) 25 mg tablet Take 1 tablet by mouth as needed for migraine headache (see administration instructions) (at onset of headache. May repeat after 2 hours.). promethazine (PHENERGAN) 25 mg tablet Take 0.5 tablets by mouth every 6 hours as needed for nausea/vomiting. albuterol HFA (PROVENTIL HFA, VENTOLIN HFA) 90 mcg/actuation inhaler Inhale 2 Puffs as instructed every 4 hours as needed. acetaminophen 650 mg CR tablet Take 650 mg by mouth every 8 hours as needed. No current facility-administered medications on file prior to visit. Review of Systems Review of Systems Constitutional: Negative for fatigue and fever. Respiratory: Negative for cough and shortness of breath. Cardiovascular: Negative for chest pain and palpitations. Gastrointestinal: Negative for abdominal pain, diarrhea, nausea and vomiting. Genitourinary: Negative for difficulty urinating and frequency. Skin: Negative for rash. Neurological: Negative for dizziness and headaches. Psychiatric/Behavioral: Negative for sleep disturbance (interrupted by babies). The patient is nervous/anxious. Physical Exam BP 113/65 Pulse 77 Resp 12 Ht 5' 3 (1.60m) Wt 169 lb (76.7kg) SpO2 98% LMP 10/05/2022 BMI 29.94 kg/(m^2). Last BP 02/07/23 : 113/65 11/12/22 : 115/82 11/01/22 : 118/60 Last Wt 02/07/23 : 76.7 kg (169 lb) 11/12/22 : 78.7 kg (173 lb 8 oz) 11/01/22 : 78.5 kg (173 lb) Physical Exam Vitals reviewed. Constitutional: Appearance: She is well-developed. She is not ill-appearing. HENT: Head: Normocephalic and atraumatic. Neck: Thyroid: No thyroid mass. Trachea: No tracheal deviation. Cardiovascular: Rate and Rhythm: Normal rate and regular rhythm. No extrasystoles are present. Heart sounds: S1 normal and S2 normal. No murmur heard. Pulmonary: Effort: No respiratory distress. Breath sounds: No decreased breath sounds, wheezing, rhonchi or rales. Musculoskeletal: General: Normal range of motion. Skin: Findings: No lesion. Neurological: General: No focal deficit present. Mental Status: She is alert and oriented to person, place, and time. Psychiatric: Attention and Perception: She is attentive. Mood and Affect: Mood is not anxious or depressed. Speech: Speech normal. Behavior: Behavior normal. Visit Diagnoses (F33.1) Moderate episode of recurrent major depressive disorder (HCC) (primary encounter diagnosis) (F41.1) Generalized anxiety disorder (G43.909) Migraine without status migrainosus, not intractable, unspecified migraine type Assessment and Plan Encounter Diagnosis ICD-10-CM 1. Moderate episode of recurrent major depressive disorder (HCC) F33.1 CONSULT TO [facility] [employer] [employer] sertraline (ZOLOFT) 100 mg tablet Symptoms not controlled with current tx. Zoloft reduced due to Wt gain, and switch to Duloxetine ptnever did. Plans to do now. 2. Generalized anxiety disorder F41.1 CONSULT TO [facility] [employer] sertraline (ZOLOFT) 100 mg tablet Worse, increased stress. Plans to start counseling, she's making calls. We'll starting Duloxetine, as Zoloft caused Wt gain. 3. Migraine without status migrainosus, not intractable, unspecified migraine type G43.909 Has been controlled. Medication orders placed this encounter sertraline (ZOLOFT) 100 mg tablet Sig: Take 0.5 tablets by mouth every other day for 14 days. Dispense: 4 tablet Refill: 0 Goals Addressed None Discussed above plan with patient and/or caregiver. Patient and/or caregiver agreeable with above plan. Return in about 5 weeks (around 03/15/2023) for Depression/Anxiety, Labs results. Jennifer Christina MD, signed on 02/07/2023 5:46 PM documented in this encounterC[facility]05-02-2023 Miscellaneous Notes* Telephone Encounter - Lucia Viramontes Pss - 02/01/2023 9:09 AM EDT The provider's schedule for February 11 at 1:00 pm was placed on hold by nicole. The patient is currently scheduled for April 25 appointment. Called the patient who doesn't want a sooner appointment. documented in this encounterCincinnati [facility]05-01-2023 Miscellaneous Notes* Telephone Encounter - Sahil Lim LPN - 01/31/2023 3:24 PM EDT Pharmacy MyChart message requesting the following refill Refill(s) Requested: Requested Prescriptions Pending Prescriptions Disp Refills ALPRAZolam (XANAX) 0.5 mg tablet [Pharmacy Med Name: ALPRAZOLAM 0.5 MG TABLET] 20 tablet Sig: take 1 tablet by mouth once daily if needed ALLERGIES Allergen Reactions Dicyclomine Other: See Comments Severe headache. Lexapro [Escitalopr* Other: See Comments Nausea Penicillins Rash (home) [phone] (cell) Last Office Visit Date: 10/20/2022 Last [facility] Visit: 12/21/2022 Future Appointment: 02/07/2023 The patients preferred pharmacy has been captured for this encounter? yes Request is for script(s) to be escript to pharmacy. Sahil Lim LPN documented in this encounterCinc[facility]04-28-2023 Miscellaneous Notes* Telephone Encounter - Natalee Sparrow MA - 01/28/2023 1:21 PM EDT Pharmacy faxed requesting the following refill Requested Prescriptions Pending Prescriptions Disp Refills ALPRAZolam (XANAX) 0.5 mg tablet 20 tablet 0 Sig: Take 1 tablet by mouth once daily as needed for up to 30 days. Allergies: Dicyclomine, Lexapro [Escitalopram Oxalate], and Penicillins (home) [phone] (cell) Last Visit date: 10/20/2022 Future appointment: 03/05/2023 The patients preferred pharmacy has been captured for this encounter? yes Request is for script(s) to be faxed to pharmacy. OARRS Report for this patient was checked and validated:Not applicable Natalee Sparrow MA documented in this encounterCinc[facility]03-27-2023 History of Present illness Narrative* Basia Carter MA - 12/27/2022 2:33 PM EDT ED Follow Up: [facility]26[facility]22. Left message for patient to return call. Basia Carter MA December 27, 2022 2:35 PM documented in this encounterCinc[facility]03-26-2023 Hospital Discharge instructions Patient Education 12/26/2022 12:14:53 Shingles (Herpes Zoster) Shingles (Herpes Zoster) Talk to your healthcare provider about the shingles vaccine. Shingles is also called herpes zoster. It is a painful skin rash caused by the herpes zoster virus.This is the same virus that causes chickenpox. After a person has chickenpox, the virus remains inactive in the nerve cells. Years later, the virus can become active again and travel to the skin. Most people have shingles only once, but it is possible to have it more than once. What are the risk factors for shingles? Anyone who has ever had chickenpox can develop shingles. But your risk is greater if you: Are 50 years of age or older Have an illness that weakens your immune system, such as HIV/AIDS Have cancer, especially Hodgkin disease or lymphoma Take medicines that weaken your immune system What are the symptoms of shingles? The first sign of shingles is usually pain, burning, tingling, or itching on one part of your face or body. You may also feel as if you have the flu, with fever and chills. A red rash with small blisters appears within a few days. The rash may appear as follows: oThe blisters can occur anywhere, but they re most common on the back, chest, or abdomen. oThey usually appear on only one side of the body, spreading along the nerve pathway where the virus was inactive. oThe rash can also form around an eye, along one side of the face or neck, or in the mouth. oIn a few people, usually those with weakened immune systems, shingles appear on more than one partof the body at once. After a few days, the blisters become dry and form a crust. The crust falls off in days to weeks. The blisters generally do not leave scars. How is shingles treated? For most people, shingles heals on its own in a few weeks. But treatment is recommended to help relieve pain, speed healing, and reduce the risk of complications. Antiviral medicines are prescribed within the first 72 hours of the appearance of the rash. To lessen symptoms: Apply ice packs (wrapped in a thin towel) or cool compresses, or soak in a cool bath. Use calamine lotion to calm itchy skin. Ask your healthcare provider about [id number] pain relievers. If your pain is severe, your healthcare provider may prescribe stronger pain medicines. What are the complications of shingles? Shingles often goes away with no lasting effects. But some people have serious problems long after the blisters have healed: Postherpetic neuralgia. This is the most common complication. It is severe nerve pain at the place where the rash used to be. It can last for months, or even years after you have had shingles. Medicines can be prescribed to help relieve the pain and improve quality of life. Bacterial infection. Shingles blisters may become infected with bacteria. Antibiotic medicine is used to treat the infection. Eye problems. A person with shingles on the face should see his or her healthcare provider right away. Shingles can cause serious problems with vision, and even blindness. Very rarely shingles can also lead to pneumonia, hearing problems, brain inflammation, or even . When to seek medical care Contact your healthcare provider if you experience any of the following: Symptoms that don t go away with treatment A rash or blisters near your eye Increased drainage, fever, or rash after treatment, or severe pain that doesn t go away How can shingles be prevented? You can only get shingles if you have had chickenpox in the past. Those who have never had chickenpox can get the virus from you. Although instead of developing shingles, the person may get chickenpox. Until your blisters form scabs, avoid contact with others, especially the following: women who have never had chickenpox or the vaccine Infants who were born early (prematurely) or who had low weight at People with weak immune system (for example, people receiving chemotherapy for cancer, people who have had organ transplants, or people with HIV infections) The shingles vaccine Shingles vaccines are available to help prevent shingles or make it less painful. Vaccination is recommended for adults 50 and older, even if you've had shingles in the past. Talk with your healthcare provider about the most appropriate time for you to get vaccinated, and which vaccine is best for you. [id number] [employer]. [address] [place] [address], [place] [address]. All rights reserved. This information is not intended as a substitute for professional medical care. Always follow yourhealthcare professional's instructions. Follow Up Care 12/26/2022 11:29:56 With:ROGER COHEN MD Address: [address] [facility] [place] [id number]- When:2-4 days [facility] 03-26-2023 Note Discharge Instructions Thank you for allowing [facility] to assist you with your healthcare needs. The following is importantdischarge information regarding your hospital visit. Diagnosis from Today's Visit Shingles Rash What to Do Next Instructions from Your Care Team Keep area covered while taking care of your infants No qualifying data available. Post Acute Orders No qualifying data available. You Need to Schedule the Following Appointments Follow Up with ROGER COHEN MD When Within 2-4 days Where: [address] [place] [address]- Allergies Bentyl penicillin Medications Please ask your primary doctor or pharmacist before taking any other medication not listed, including over the counter drugs, herbal medications, vitamins and or supplements as they may interact withyour home medications. What How Much When Why Instructions Last Dose New acetaminophen-oxyCODONE (Percocet 5 mg-325 mg oral tablet) 1 tab(s) by mouth Every 6 hours as needed for for pain Shingles Duration: 5 Days Printed Prescription New valACYclovir (Valtrex 1 g oral tablet) 1 tab(s) by mouth Three (3) times a day Shingles Duration: 7 Days Printed Prescription Unchanged acetaminophen-hydrocodone ([place] 325- 5 mg oral tablet) 1 tab(s) by mouth Every 6 hours Myalgia Duration: 3 Days Unchanged busPIRone (busPIRone 15 mg oral tablet) Unchanged fenofibrate (fenofibrate 160 mg oral tablet) 1 tab(s) by mouth Once a day Unchanged multivitamin, (PNV Plus oral tablet) Unchanged naproxen (naproxen 500 mg oral tablet) 1 tab(s) by mouth Two (2) times a day as needed for as needed for pain Myalgia Unchanged ondansetron (ondansetron 4 mg oral tablet, disintegrating) 1 tab(s) by mouth Every 6 hours as needed for Nausea/Vomiting Myalgia Unchanged PARoxetine (Paxil 40 mg oral tablet) 1 tab(s) by mouth Once a day Unchanged predniSONE (prednisone 10mg tab (TAPER)) Taper 30-20-10-5 mg x 3 days each dose by mouth Two (2) times a day Duration: 12 Days Unchanged promethazine (promethazine 12.5 mg oral tablet) 1 tab(s) by mouth Every 4 hours as needed for for nausea/vomiting Unchanged promethazine (promethazine 12.5 mg rectal suppository) 1 suppository(ies) in the rectum Every 6 hours Gastroenteritis Please take this list to your next doctor s visit. Bring all medications you take, including over the counter medications, herbals and other supplements with you to your doctor s visit. Patients and families are reminded to discard old lists and to update any records with all medication providers or retail pharmacies. Education Materials Shingles (Herpes Zoster) Talk to your healthcare provider about the shingles vaccine. Shingles is also called herpes zoster. It is a painful skin rash caused by the herpes zoster virus.This is the same virus that causes chickenpox. After a person has chickenpox, the virus remains inactive in the nerve cells. Years later, the virus can become active again and travel to the skin. Most people have shingles only once, but it is possible to have it more than once. What are the risk factors for shingles? Anyone who has ever had chickenpox can develop shingles. But your risk is greater if you: Are 50 years of age or older Have an illness that weakens your immune system, such as HIV/AIDS Have cancer, especially Hodgkin disease or lymphoma Take medicines that weaken your immune system What are the symptoms of shingles? The first sign of shingles is usually pain, burning, tingling, or itching on one part of your face or body. You may also feel as if you have the flu, with fever and chills. A red rash with small blisters appears within a few days. The rash may appear as follows: oThe blisters can occur anywhere, but they re most common on the back, chest, or abdomen. oThey usually appear on only one side of the body, spreading along the nerve pathway where the virus was inactive. oThe rash can also form around an eye, along one side of the face or neck, or in the mouth. oIn a few people, usually those with weakened immune systems, shingles appear on more than one partof the body at once. After a few days, the blisters become dry and form a crust. The crust falls off in days to weeks. The blisters generally do not leave scars. How is shingles treated? For most people, shingles heals on its own in a few weeks. But treatment is recommended to help relieve pain, speed healing, and reduce the risk of complications. Antiviral medicines are prescribed within the first 72 hours of the appearance of the rash. To lessen symptoms: Apply ice packs (wrapped in a thin towel) or cool compresses, or soak in a cool bath. Use calamine lotion to calm itchy skin. Ask your healthcare provider about [id number] pain relievers. If your pain is severe, your healthcare provider may prescribe stronger pain medicines. What are the complications of shingles? Shingles often goes away with no lasting effects. But some people have serious problems long after the blisters have healed: Postherpetic neuralgia. This is the most common complication. It is severe nerve pain at the place where the rash used to be. It can last for months, or even years after you have had shingles. Medicines can be prescribed to help relieve the pain and improve quality of life. Bacterial infection. Shingles blisters may become infected with bacteria. Antibiotic medicine is used to treat the infection. Eye problems. A person with shingles on the face should see his or her healthcare provider right away. Shingles can cause serious problems with vision, and even blindness. Very rarely shingles can also lead to pneumonia, hearing problems, brain inflammation, or even . When to seek medical care Contact your healthcare provider if you experience any of the following: Symptoms that don t go away with treatment A rash or blisters near your eye Increased drainage, fever, or rash after treatment, or severe pain that doesn t go away How can shingles be prevented? You can only get shingles if you have had chickenpox in the past. Those who have never had chickenpox can get the virus from you. Although instead of developing shingles, the person may get chickenpox. Until your blisters form scabs, avoid contact with others, especially the following: women who have never had chickenpox or the vaccine Infants who were born early (prematurely) or who had low weight at People with weak immune system (for example, people receiving chemotherapy for cancer, people who have had organ transplants, or people with HIV infections) The shingles vaccine Shingles vaccines are available to help prevent shingles or make it less painful. Vaccination is recommended for adults 50 and older, even if you've had shingles in the past. Talk with your healthcare provider about the most appropriate time for you to get vaccinated, and which vaccine is best for you. [id number] [employer]. [address] [place] [address]. All rights reserved. This information is not intended as a substitute for professional medical care. Always follow yourhealthcare professional's instructions. Additional Information VACCINATE! IT SAVES LIVES! Members of the community who have not yet received the COVID-19 vaccine and would like to receive it can visit one of [facility] vaccine clinics. There are many vaccine clinic locations within the [facility]. For locations and available times, please visit [email or web address] It is important to note that some COVID mobile vaccine clinics are held outdoors and may be canceled in rainy or stormy conditions. To learn more about pediatric vaccinations (ages 5-11), we invite you to visit the [facility] webpage. [email or web address]/[email or web address] learn more about the COVID-19 vaccine, we invite you to visit the CDC website for a list of frequently asked questions. https://www.cdc.gov/coronavirus/2019-ncov/vaccines/faq.html [facility] Patient Portal Access Instructions: Stay connected with your healthcare team and access your personal medical information anytime with the [facility] Patient Portal. If you would like a full copy of your medical records please contact the [facility] Medical Records Department Tuesday through Tuesday between 8a.m. and 4:30p.m. Please follow the directions below to access the portal: 1.Access the email account you provided upon registration to the hospital.2.Look for an invitation email from [facility].3.Open the email and access the invitation link: Accept Invitation to [employer]4.Fill in the required trujillo to create your account. Sign into [email or web address] with your username and password that you created in the above steps to stay up to date. You can then view a summary of results, a summary of your visits, and the ability to download your summaries to your computer or send the information securely to a physician. Remember that your healthcare information is confidential, so carefully consider who you will allow to register on the [facility] Patient Portal for access to your information. You can also access the [employer] Patient Portal on the [employer] gabriel. Simply click on Health Records under [place] and then click on the [employer] logo. HOW TO SAFELY DISPOSE OF PRESCRIPTION MEDICATIONS Please use one of the following methods to safely dispose of your unused medications. 1.Use a drug disposal kit: the drug disposal pouch allows you to safely discard your old and unuseddrugs. Ask your nurse to give you one when you are discharged.2.Visit a local take-back location: Many local pharmacies and police departments have programs that collect old and unwanted prescriptiondrugs. Call your local pharmacy or go to http://Intellio.ChartITright/9U9Yv0x to find one close to you.3.Make use of household items: Use cat litter or old coffee grounds to dispose medications if other options arenot available. Mix your drugs with these household products, seal them in an airtight container andthrow it into the garbage. Call [facility]: [phone] to be sure your drugs can be disposed of in this way. Some medicines may require a different approach.4.Never flush your medications down the toilet. IF YOU HAVE BEEN PRESCRIBED AN OPIOIDS FOR PAIN If you have been prescribed an opioid (such as hydrocodone, oxycodone or morphine), it is critical to understand the possible side effects and risks of opioid pain medications. Even when taken as directed, opioids can have several side effects including: Tolerance, meaning you might need to take more of a medication for the same pain relief. Nausea, vomiting and/or constipation. Sleepiness, dizziness, dry mouth, confusion, depression or itching. Physical dependence, meaning you have withdrawal symptoms when a medication is stopped ? this can develop within a few days. KNOW YOUR RESPONSIBILITIES It is important to know exactly how much and how often to take the opioid pain medications you are prescribed. Never take opioids in higher amounts or more often than prescribed. Do not combine opioids with alcohol or other drugs that cause drowsiness, such as benzodiazepines, also known as benzos,including diazepam and alprazolam, muscle relaxants or sleep aids. Never sell or share prescriptionopioids. This is illegal. Store opioids in a secure place and out of reach of others (including children, family, friends and visitors). The last page(s) of this document has been signed and retained as a CHART COPY Signatures Patient Education Materials Shingles (Herpes Zoster) Medication Leaflets My discharge plan and instructions have been reviewed and explained to me and I,LILLIAN DRAKE understand my current condition and have read and understand these discharge instructions. I have received a written copy of the plan/instructions. If I have questions, I am aware that I should contact my doctor. 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 Thank You, Karol Chou Ma December 24, 2022 3:45 PM documented in [facility] History of Present illness Narrative* Jennifer Christina MD - 12/21/2022 10:24 AM EDT Images from the original note were not included. [facility] [address] Jennifer Werner M.D. [address], [place], [address] Dept. Dept. VIRTUAL/PHONE VISIT Visit conducted via [employer] / [employer] Video conference (HIPAA compliant video platform). Patient's PCP: Jennifer Christina MD Visit Date: December 21, 2022 Ms.Kelly Jarek Drake Date of : 1985 Reason for the visit: Patient presents with: Anxiety Rx Refills There are no exam notes on file for this visit. History of Present Illness Lillian Drake is a 37 year old female. Patient is complaining of labs results, headaches, anxiety. The history is provided by the patient. Anxiety This is a chronic problem. Progression since onset: continues with anxiety symptoms, feels headaches, unable to relax, night symptoms. Suspected agents: anxiety worsened with her twin . Now taking care of twins, and been at home all the time. Pertinent negatives include no fever, nausea orvomiting. Hypercholesterolemia This is a new (Mixed Hyperlipidemia) problem. Episode onset: . The problem is uncontrolled.Recent lipid tests were reviewed and are high. Pertinent negatives include no chest pain or shortness of breath. She is currently on no antihyperlipidemic treatment (plans to start exercising). Musculoskeletal Problem This is a chronic (Fibromyalgia) problem. The problem occurs daily. Progression since onset: pt with daily symptoms of body pain/aches. Taking Tylenol or Advil on most days. Associated symptoms include headaches. Pertinent negatives include no abdominal pain, chest pain, coughing, fatigue, fever, nausea, rash or vomiting. She has tried acetaminophen and NSAIDs for the symptoms. The treatment provided mild relief. Headache This is a chronic (Migraines) problem. Progression since onset: follows with Neurologist. Recently medications adjusted. Pertinent negatives include no fever, no palpitations, no shortness of breath,no nausea and no vomiting. She has tried acetaminophen, NSAIDs and triptan therapy for the symptoms. The treatment provided mild relief. ACTIVE PROBLEM LIST Mild Episode of Recurrent Major Depressive Disorder (Hcc) Generalized Anxiety Disorder Mixed Hyperlipidemia Pcos (Polycystic Ovarian Syndrome) Migraine Headache Marijuana Use, Episodic Exercise-Induced Asthma Bing Positive Fibromyalgia Gerd Without Esophagitis PAST MEDICAL HISTORY Diagnosis Date Asthma exercise induced, no asthma attacks since age 19 COVID-19 virus infection 09/28/2021 + Home test. COVID-19 virus infection 08/23/2022 Depression 06/17/2014 Exercise-induced asthma 10/20/2022 Generalized anxiety disorder 2006 Infertility, female PCOS, attempted to conceive for 3 years with 2nd child Irritable bowel syndrome with both constipation and diarrhea 03/30/2018 Major depressive disorder, recurrent episode, unspecified 2006 Miscarriage 2011 Mixed hypertriglyceridemia 03/30/2018 Other migraine, not intractable, without status migrainosus 03/30/2018 Panic disorder without agoraphobia PCOS (polycystic ovarian syndrome) 2009 Polysubstance dependence ([facility]) 06/17/2014 Polysubstance dependence in early, early partial, sustained full, or sustained partial remission ([facility]) 12/10/2014 labor delivered 6 weeks early Recurrent major depressive disorder, in partial remission ([facility]) 11/19/2015 Rh negative state in antepartum period 06/27/2015 SECONDARY AMENORRHEA 06/06/2008 Tobacco use disorder 06/26/2015 Social History Tobacco Use Smoking status: Every Day Packs/day: 0.25 Years: 10.00 Pack years: 2.50 Types: Cigarettes Smokeless tobacco: Never Tobacco comments: 5 cigarretes a day Vaping Use Vaping Use: Never used Substance Use Topics Alcohol use: No Drug use: Yes Types: Marijuana Comment: occasional ALLERGIES Allergen Reactions Dicyclomine Other: See Comments Severe headache. Lexapro [Escitalopr* Other: See Comments Nausea Penicillins Rash Current Outpatient Medications Medication Sig baclofen (LIORESAL) 20 mg tablet Take 1 tablet by mouth daily at bedtime for 14 days, THEN 1 tablettwice daily. SUMAtriptan (IMITREX) 25 mg tablet Take 1 tablet by mouth as needed for migraine headache (see administration instructions) (at onset of headache. May repeat after 2 hours.). promethazine (PHENERGAN) 25 mg tablet Take 0.5 tablets by mouth every 6 hours as needed for nausea/vomiting. albuterol HFA (PROVENTIL HFA, VENTOLIN HFA) 90 mcg/actuation inhaler Inhale 2 Puffs as instructed every 4 hours as needed. acetaminophen 650 mg CR tablet Take 650 mg by mouth every 8 hours as needed. famotidine (PEPCID) 20 mg tablet Take 1 tablet by mouth twice daily as needed. ALPRAZolam (XANAX) 0.5 mg tablet Take 1 tablet by mouth once daily as needed for up to 30 days. sertraline (ZOLOFT) 100 mg tablet Take 1 tablet by mouth once daily for 30 days, THEN 0.5 tablets once daily. [START ON 12/28/2022] DULoxetine (CYMBALTA) 30 mg capsule Take 1 capsule by mouth once daily. No current facility-administered medications for this visit. Review of Systems Review of Systems Constitutional: Positive for unexpected weight change (gaining wt, ~20+ lbs in past 4-6 months). Negative for fatigue and fever. Respiratory: Negative for cough and shortness of breath. Cardiovascular: Negative for chest pain and palpitations. Gastrointestinal: Negative for abdominal pain, diarrhea, nausea and vomiting. Genitourinary: Negative for difficulty urinating and frequency. Skin: Negative for rash. Neurological: Positive for headaches. Negative for dizziness. Psychiatric/Behavioral: Negative for sleep disturbance. The patient is nervous/anxious. Physical Exam Physical findings of this patient are as follows: Physical Exam Constitutional: General: She is not in acute distress. Appearance: Normal appearance. She is well-developed. She is not ill-appearing. Pulmonary: Effort: Pulmonary effort is normal. No respiratory distress. Neurological: Mental Status: She is alert and oriented to person, place, and time. Psychiatric: Attention and Perception: She is attentive. Speech: Speech normal. Results Only on 10/29/2022 Component Date Value Ref Range Status DNA Antibody 10/29/2022 <12 <30 IU/mL Final Negative for ds DNA Antibodies. <30 IU/mL Negative 30-74 IU/mL Equivocal >74 IU/mL Positive Crithidia luciliae 10/29/2022 Negative Negative Final Crithidia luciliae assay is used as an aid in diagnosis of systemic lupus erythematosus (SLE). A negative result cannot rule out SLE. Low positive titers may be seen with other systemic autoimmune diseases. Clinical correlation is required. SOLAR MAINTENANCE TECHNICIAN Antibody QUAL 10/29/2022 Positive (A) Negative Final SOLAR MAINTENANCE TECHNICIAN Antibody 10/29/2022 1.1 (A) <1.0 AI Final SM Antibody Qual 10/29/2022 Negative Negative Final Anti-Sm (Do) antibody is used as an aid in diagnosis of systemic lupus erythematosus and its presence is associated with renal disease. A negative result cannot rule out systemic lupus erythematosus. Clinical correlation is required. Test Methodology: Multiplex flow immunoassay. SM Antibody 10/29/2022 <0.2 <1.0 AI Final SSA Antibody IgG 10/29/2022 <0.2 <1.0 AI Final SSB Antibody 10/29/2022 <0.2 <1.0 AI Final SSA Antibody Qual 10/29/2022 Negative Negative Final Anti-SSA (anti-Ro) antibody is used as an aid in diagnosis of a variety of systemic autoimmune diseases, Sjogren's syndrome among others. Clinical correlation is required. Test Methodology: Multiplexflow immunoassay. SSB Antibody Qual 10/29/2022 Negative Negative Final Anti-SSB (anti-La) antibody is used as an aid in diagnosis of a variety of systemic autoimmune diseases, especially for Sjogren's syndrome and systemic lupus erythematosus. Clinical correlation is required. Test Methodology: Multiplex flow immunoassay. CK 10/29/2022 51 42 - 196 U/L Final Rheumatoid Factor 10/29/2022 10 <16 IU/mL Final CCP Antibody IgG Qualitative 10/29/2022 Negative Negative Final CCP Antibody, IgG 10/29/2022 <15 <20 Units Final CRP 10/29/2022 <0.3 <0.9 mg/dL Final Sed Rate, Westergren 10/29/2022 2 0 - 20 mm/hr Final Protein, Total 10/29/2022 6.7 6.3 - 8.0 g/dL Final Albumin 10/29/2022 4.0 3.9 - 4.9 g/dL Final Calcium, Total 10/29/2022 9.0 8.5 - 10.2 mg/dL Final Bilirubin, Total 10/29/2022 0.2 0.2 - 1.3 mg/dL Final Alkaline Phosphatase 10/29/2022 56 34 - 123 U/L Final AST 10/29/2022 21 13 - 35 U/L Final ALT 10/29/2022 16 7 - 38 U/L Final Glucose 10/29/2022 83 74 - 99 mg/dL Final The [place] Diabetes Association (ADA) provides guidance for cutoff values for fasting glucose andrandom glucose. The ADA defines fasting as no caloric intake for at least 8 hours. Fasting plasma glucose results between 100 to 125 mg/dL indicate increased risk for diabetes (prediabetes). Fasting plasma glucose results greater than or equal to 126 mg/dL meet the criteria for diagnosis of diabetes. In the absence of unequivocal hyperglycemia, results should be confirmed by repeat testing. In a patient with classic symptoms of hyperglycemia or hyperglycemic crisis, random plasma glucose results greater than or equal to 200 mg/dL meet the criteria for diagnosis of diabetes. Reference: Standards of Medical Care in Diabetes 2016, [place] [employer] Association. Diabetes Care. 2016.39(Suppl 1). BUN 10/29/2022 20 7 - 21 mg/dL Final Creatinine 10/29/2022 0.68 0.58 - 0.96 mg/dL Final Sodium 10/29/2022 137 136 - 144 mmol/L Final Potassium 10/29/2022 3.8 3.7 - 5.1 mmol/L Final Chloride 10/29/2022 105 97 - 105 mmol/L Final CO2 10/29/2022 21 (A) 22 - 30 mmol/L Final Anion Gap 10/29/2022 11 9 - 18 mmol/L Final Estimated Glomerular Filtration Ra* 10/29/2022 117 >=60 mL/min/1.73m Final Estimated Glomerular Filtration Rate (eGFR) is calculated using the 2020 CKD-EPI creatinine equation. This equation utilizes serum creatinine, sex, and age as parameters. The creatinine assay has traceable calibration to isotope dilution- mass spectrometry. Refer to KDIGO guidelines for clinical interpretation. In patients with unstable renal function, e.g. those with acute kidney injury, the eGFRmay not accurately reflect actual GFR. Cholesterol, Total 10/29/2022 397 (A) <200 mg/dL Final <200 mg/dL, Desirable 200-239 mg/dL, Borderline high >239 mg/dL, High Triglyceride 10/29/2022 519 (A) <150 mg/dL Final <150 mg/dL, Normal 150-199 mg/dL, Borderline high 200-499 mg/dL, High >499 mg/dL, Very high HDL Cholesterol 10/29/2022 44 >39 mg/dL Final 40-59 mg/dL, Acceptable >59 mg/dL, High: Negative risk factor for coronary heart disease <40 mg/dL, Low: Positive risk factor for coronary heart disease Non HDL Cholesterol 10/29/2022 353 (A) <130 mg/dL Final <130 mg/dL, Optimal 130-159 mg/dL, Near optimal/above optimal 160-189 mg/dL, Borderline high 190-219 mg/dL, High >219 mg/dL, Very high Secondary prevention optimal non HDL Cholesterol levels are recommended to be <100 mg/dL Fasting Time 10/29/2022 11 hrs Final VLDL Cholesterol 10/29/2022 Final Unable to calculate due to increased Triglycerides. See LDL-Chol, Direct. TC:HDL Ratio 10/29/2022 9.02 (A) <5.10 Final LDL Cholesterol 10/29/2022 Final Unable to calculate due to increased Triglycerides. See LDL-Chol, Direct. LDL:HDL Ratio 10/29/2022 Final Unable to calculate due to elevated Triglycerides. Reference: 1. National Cholesterol Education Program ATP III Guideline At-A-Glance Quick Desk Reference: National Heart, Lung, and Blood [place]. National Institutes of Health. 2001: NIH Publication No. 01-3305. 2. An International Atherosclerosis Society position paper: global recommendations for the management of dyslipidemia: executive summary, Atherosclerosis. 2014: 232(2):410-413. WBC 10/29/2022 11.43 (A) 3.70 - 11.00 k/uL Final RBC 10/29/2022 4.50 3.90 - 5.20 m/uL Final Hemoglobin 10/29/2022 12.9 11.5 - 15.5 g/dL Final Hematocrit 10/29/2022 39.6 36.0 - 46.0 % Final MCV 10/29/2022 88.0 80.0 - 100.0 fL Final MCH 10/29/2022 28.7 26.0 - 34.0 pg Final MCHC 10/29/2022 32.6 30.5 - 36.0 g/dL Final RDW-CV 10/29/2022 15.9 (A) 11.5 - 15.0 % Final Platelet Count 10/29/2022 197 150 - 400 k/uL Final MPV 10/29/2022 9.9 9.0 - 12.7 fL Final Absolute nRBC 10/29/2022 <0.01 <0.01 k/uL Final LDL Cholesterol, Direct 10/29/2022 168 (A) <100 mg/dL Final <100 mg/dL, Optimal 100-129 mg/dL, Near optimal/above optimal 130-159 mg/dL, Borderline high 160-189 mg/dL, High >189 mg/dL, Very high Secondary prevention optimal LDL Cholesterol levels are recommended to be < 70 mg/dL VLDL Cholesterol 10/29/2022 185 (A) <30 mg/dL Final No results found for: TSH No results found for: TSHREFL No results found for: T3 No results found for: FREET3 No results found for: T4 No results found for: FREET4 No results found for: [id number] MRI BRAIN WO/W IVCON Narrative: * * *Final Report* * * DATE OF EXAM: Dec 10 2022 1:49PM [facility] 0295 - MRI BRAIN WO/W IVCON / PROCEDURE REASON: multiple diagnoses * * * * Physician Interpretation * * * * EXAMINATION: MRI BRAIN WO/W IVCON HISTORY: New daily persistent headache. Mixed headache. Medication overuse headache. TECHNIQUE: MRI brain routine protocol without and with contrast. M: [id number] MR Contrast: Dotarem Contrast Dose: 16 cc Route of Administration: IV COMPARISON: None. RESULT: Acute Change: No evidence of an acute intracranial process. Hemorrhage: No evidence of prior parenchymal hemorrhage on the susceptibility weighted sequences. Mass Lesion/ Mass Effect: No evidence of an intracranial mass or extra-axial fluid collection. No abnormal intracranial enhancement following contrast administration. No significant mass effect. Chronic Change: Nodular T1 hypointense and T2 intermediate intensity foci along the right and left anterior lateral ventricles. 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 White matter is otherwise within normal limits. Parenchyma: No significant parenchymal volume loss for age. Ventricles: Normal caliber and morphology. Skull Base: Hypothalamic and pituitary region are grossly normal. Craniocervical junction is normal. No significant marrow replacement process. Vasculature: Major intracranial arteries and dural venous sinuses demonstrate typical flow voids, suggesting patency by spin echo criteria. Left anterior cerebellar developmental venous anomaly. Other: The paranasal sinuses and mastoid air cells are clear. The orbits and extracranial soft tissues are unremarkable. Impression: IMPRESSION: No acute intracranial findings or imaging findings to explain headaches. T1 hypointense and T2 intermediate intensity nodularity along the anterior right and left lateral ventricles. 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 Incidental left anterior cerebellar involvement of venous anomaly. Electrical And Electronic Assembler: SAVITA Transcribe Date/Time: Dec 10 2022 2:53P Dictated by : REENA SHEIKH DO This examination was interpreted and the report reviewed and electronically signed by: REENA SHEIKH DO on Dec 10 2022 3:21PM EST Laboratories and/or tests reviewed and discussed with patient. This Team Access Model visit is a virtual encounter. It required patient- provider interaction for the medical decision making as documented below. Assessment and Plan Encounter Diagnosis ICD-10-CM 1. Generalized anxiety disorder F41.1 ALPRAZolam (XANAX) 0.5 mg tablet TSH BLD sertraline (ZOLOFT) 100 mg tablet DULoxetine (CYMBALTA) 30 mg capsule Continues with anxiety symptoms, on Sertraline 150mg for >1 year. We'll switch tx, and pt has also gained wt. We'll try Duloxetine. Slow weaning. 2. Mixed hyperlipidemia E78.2 LIPID PANEL BASIC TSH BLD High LDL and Trigs. Lifestyle changes had been recommended. Pt hasn't change much. Advise provided.We'll recheck. 3. Fibromyalgia M79.7 DULoxetine (CYMBALTA) 30 mg capsule Pt seen by Rheum in past months. Symptoms not controlled with OTC analgesics. We'll add/try Duloxetine. 4. GERD without esophagitis K21.9 famotidine (PEPCID) 20 mg tablet Controlled with PRN use of H2 blockers. 5. Migraine without status migrainosus, not intractable, unspecified migraine type G43.909 Follows with Neurologist, recent adjustment in medications. Return in about 6 weeks (around 02/01/2023) for Depression/Anxiety. Discussed above plan with patient and/or caregiver. Patient and/or caregiver agreeable with above plan. Total visit time: >20 minutes. Jennifer Christina MD, signed on December 21, 2022 10:53 AM documented in this encounterC[facility] History of Present illness Narrative* Stephany Miller RT(R) - 12/10/2022 1:00 PM EST Radiology Service Progress Note DATE OF SERVICE: December 10, 2022 TIME: 1:50 PM PATIENT IDENTITY VERIFICATION COMPLETED USING TWO (2) STANDARD IDENTIFIERS: Name and Date of confirmed by patient verbally. FALL SCREENING: Has the patient had 2 falls in the last year or 1 fall with injury or currently using an Ambulatory Assistive Device (Walker, Cane, Wheelchair, Crutches, etc.)? No PATIENT GENDER DATA: Female. status: : No status: NO. PATIENT RELEVANT IMPLANT DATA REVIEWED: Yes ALLERGIES: Reviewed and unchanged CONTRAST ALLERGY: NO. EXAM: MRI - CONTRAST TYPE: GROUP II PERIPHERAL IV DATA: Ambulatory: A peripheral IV was started in the Left hand with a Angio cath: 24 gauge. RADIOLOGY DEPARTMENT: MR; Exam(s) Completed: Head: Routine Brain SIGNATURE: RT Octavio(Gwendolyn) PATIENT NAME: Lillian Drake DATE: December 10, 2022 TIME: 1:50 PM documented in this [facility]03-06-2023 Miscellaneous Notes* Telephone Encounter - Isidoro Reinoso RN - 12/06/2022 8:44 AM EST LIZETT: 11/12/22 NOV: n/a documented in this [facility]02-23-2023 Miscellaneous Notes* Telephone Encounter - Josephine Gutierrez MA - 11/25/2022 1:36 PM EST My Charted the patient to let her know that she can do a virtual appointment to go over her lab results. Josephine Gutierrez CMA 11/25/2022 1:44 PM documented in this [facility]02-10-2023 Instructions* Patient Instructions* Kathy Zayas MD - 11/12/2022 9:43 AM EST You have new daily persistent headaches that represent a mixture of multiple headache types including: migraines, cervicogenic headaches, tension headaches, and medication overuse headaches. When you take as needed medications every day, it actually makes the headaches worse. We recommend no more than 3 days out of the week once the headaches are more controlled To treat, we're going to: - use a medication called depakote for 7 days to break the headache cycle - start baclofen 10mg every night to help prevent headaches. Please let me know if it makes you toosleepy We know that COVID is associated with central sensitization in which your body over-interprets signals from the body to cause odd symptoms, including persistent headaches. Nonetheless, because of thepersistent nature of the headaches, we're going to get a MRI of the brain to be thorough [facility] History of Present illness Narrative* Kathy Zayas MD - 11/12/2022 9:00 AM EST Images from the original note were not included. General Neurology Outpatient Clinic - new patient evaluation Date: November 12, 2022 Patient Name: Lillian Drake Referring physician: Maria Luisa Tyler [address] [facility] [address] [facility] [address] Primary physician: Jennifer Christina [address] [facility] [address] [place] [address] Reason for Evaluation: Headaches HPI: The pt is a 37yo Right handed female with hx of - DARYA - HLD - asthma - scoliosis Presenting for evaluation of headaches. Referred by rheumatology Per EMR, saw rheumatology 11/01/2022 for follow-up regarding positive BING, myalgias, arthralgias, daily headaches, oral and nasal ulncers. On prednisone 60mg for 4-5 weeks, also on hydrocodone. VEE neg. Diagnosed with fibromyalgia. Plan to wean prednisone. Per patient, she has had a prior history of headaches about once a month associated with nausea that was not debilitating and would go away with OTCs. She had COVID-19 infection mid-September 2022 andhad 'head cold' symptoms for about 4 days. She's not sure if she had associated headache as she wasbusy caring for her baby twins (now 4mo) who also had COVID. She also has a 13yo and a 6yo. About 6 weeks ago, she really started noticing a daily headache that changes in characteristics buthas not abated. She does remember it worsened around the time she saw rheumatology and had been diagnosed with fibromyalgia There is no known family history of headaches. She denies recent or past head trauma. She denies major changes in medications She is not currently . She has resumed smoking to help deal with stress. Her fiance isable to help with the children Description of headaches: variable. Can be frontal pressure, can be holocephalic aching, throbbing,sharpness. Present all the time, fluctuates in intensity and characteristic. Non-positional Associated with: light and sound sensitivity, nausea, intermittent tinnitus, right neck muslce tightness and pain that's also been persistent Aura: n/a Time to peak pain: n/a Duration: constant Frequency: daily for 6 weeks Triggers: n/a Alleviating factors: OTCs sometimes help Menstrual pattern: no, irregular menses at baseline Previous preventives: none Current preventives: zoloft (for mood) Previous abortive: n/a Current abortive: tylenol, ibuprofen Prior neurological workup: 10/07/15 MRI brain wo, MRV brain wo ([facility]) OUTPATIENT MEDICATIONS Current Outpatient Medications on File Prior to Visit Medication Sig ALPRAZolam (XANAX) 0.5 mg tablet Take 1 tablet by mouth once daily as needed for up to 30 days. sertraline (ZOLOFT) 100 mg tablet Take 150 mg by mouth once daily. famotidine (PEPCID) 20 mg tablet Take 20 mg by mouth twice daily. promethazine (PHENERGAN) 25 mg tablet Take 0.5 tablets by mouth every 6 hours as needed for nausea/vomiting. albuterol HFA (PROVENTIL HFA, VENTOLIN HFA) 90 mcg/actuation inhaler Inhale 2 Puffs as instructed every 4 hours as needed. acetaminophen 650 mg CR tablet Take 650 mg by mouth every 8 hours as needed. No current facility-administered medications on file prior to visit. MEDICAL HISTORY PAST MEDICAL HISTORY Diagnosis Date Asthma exercise induced, no asthma attacks since age 19 COVID-19 virus infection 09/28/2021 + Home test. COVID-19 virus infection 08/23/2022 Depression 06/17/2014 Exercise-induced asthma 10/20/2022 Generalized anxiety disorder 2006 Infertility, female PCOS, attempted to conceive for 3 years with 2nd child Irritable bowel syndrome with both constipation and diarrhea 03/30/2018 Major depressive disorder, recurrent episode, unspecified 2006 Miscarriage 2012 Mixed hypertriglyceridemia 03/30/2018 Other migraine, not intractable, without status migrainosus 03/30/2018 Panic disorder without agoraphobia PCOS (polycystic ovarian syndrome) 2009 Polysubstance dependence ([facility]) 06/17/2014 Polysubstance dependence in early, early partial, sustained full, or sustained partial remission ([facility]) 12/10/2014 labor delivered 6 weeks early Recurrent major depressive disorder, in partial remission ([facility]) 11/19/2015 Rh negative state in antepartum period 06/27/2015 SECONDARY AMENORRHEA 06/06/2008 Tobacco use disorder 06/26/2015 SURGICAL HISTORY PAST SURGICAL HISTORY Procedure Laterality Date DELIVERY ONLY 06/24/2022 Twin , 33 wks COLONOSCOPY FLX DX W/COLLJ SPEC WHEN PFRMD 05/08/2020 Colonoscopy ESOPHAGOGASTRODUODENOSCOPY TRANSORAL DIAGNOSTIC 11/21/2014 EGD ESOPHAGOGASTRODUODENOSCOPY TRANSORAL DIAGNOSTIC 05/08/2020 EGD LIGATE FALLOPIAN TUBE 06/24/2022 SOCIAL HISTORY Social History Tobacco Use Smoking status: Every Day Packs/day: 0.25 Years: 10.00 Pack years: 2.50 Types: Cigarettes Smokeless tobacco: Never Tobacco comments: 5 cigarretes a day Vaping Use Vaping Use: Never used Substance Use Topics Alcohol use: No Drug use: Yes Types: Marijuana Comment: occasional FAMILY HISTORY FAMILY HISTORY Problem Relation Age of Onset No Known Problems Mother Lipids Father Thyroid Sister No Known Problems Brother No Known Problems Maternal Grandmother Ischemic Heart Disease Maternal Grandfather CA at later age Diabetes Maternal Grandfather Hypertension Maternal Grandfather Thyroid Paternal Grandmother Emphysema Paternal Grandmother No Known Problems Paternal Grandfather ADD/ADHD Son Alcohol/Drug Paternal Aunt No Known Problems Daughter ALLERGIES ALLERGIES Allergen Reactions Dicyclomine Other: See Comments Severe headache. Lexapro [Escitalopr* Other: See Comments Nausea Penicillins Rash REVIEW OF SYSTEMS: No fevers, chills No chest pain, palpitations No SOB No constipation, diarrhea +neck and back pain +myalgias + arthralgias +blurred vision +tinnitus No recent falls PHYSICAL EXAM: BP 115/82 Pulse 75 Wt 78.7 kg (173 lb 8 oz) LMP 10/05/2022 (Approximate) SpO2 100% BMI 30.73 kg/m General appearance: Well appearing, alert, in no acute distress. Fatigued appearing Head: Normocephalic, atraumatic. +right occipital aching tenderness to palpation Neck: +tight paraspinal muscles, +mild limited right flexion and lateral torsion compared to left Neurological exam: Mental Status: Alert, oriented to person, place and time and Follows commands. Cranial Nerves: visual trujillo intact to confrontation, extraocular movements intact, facial sensation intact, face symmetric, no facial droop or ptosis, hearing intact to finger rub bilaterally, no dysarthria, and shoulder shrug intact and symmetric. Motor: Right Upper: Left Upper: Deltoid: 5 Deltoid: 5 Triceps: 5 Triceps: 5 Biceps: 5 Biceps: 5 Senior Site Manager: 5 Senior Site Manager: 5 Finger abduction: 5 Finger abduction: 5 Finger adduction: 5 Finger adduction: 5 Right Lower: Left Lower: Iliopsoas: 5 Iliopsoas: 5 Knee flexor: 5 Knee flexor: 5 Knee extensor: 5 Knee extensor: 5 Dorsiflexion: 5 Dorsiflexion: 5 Plantarflexion: 5 Plantarflexion: 5 Motor Tone: Right Upper: Normal tone Left Upper: Normal tone Right Lower: Normal tone Left Lower: Normal tone Reflexes: 2/4 biceps, brachioradialis, patellars. Downgoing plantars. 1 beat ankle clonus on right Sensation: intact BUE and BLE to touch, temperature, vibration, proprioception Coordination: Finger-to- nose-finger intact bilaterally and Hvyp-nz-duze intact bilaterally. Gait: normal-based. Normal tiptoe, heel, tandem gait Romberg: neg LABS/DATA: 09/23/2022 Vit B12 602 TSH 0.68 IMAGIN10/07/15 MRI brain wo, MRV brain wo ([facility]) Negative examination of the brain. Normal flow is noted in the superior and inferior sagittal sinuses, internal cerebral veins, vein of Kem, straight sinus in transverse and sigmoid sinuses. No filling defects suspicious for thrombus or mass are noted. The right transverse and sigmoid sinuses are larger on a congenital basis. ASSESSMENT: The pt is a 37 year old female with a history of DARYA, HLD, scoliosis, asthma who presents with new daily persistent headaches x6 weeks after COVID in mid- September 2022. Headaches likely mixed headaches of migraines, tension headaches, cervicogenic headaches, and medication overuse headaches. Her exam shows paraspinal muscle tightness, mild cervical limitation to ROM, and one beat clonus that can be normal in her age group. However, given the new onset and intractable nature of headaches, would be reasonable to obtain brain imaging to r/o secondary causes. Discussed with patient that COVID hasbeen linked with central sensitization which can further contribute to her symptoms PLAN: - MRI brain wwo - depakote pulse to break headache cycle - start baclofen 10mg qhs for headache prevention - f/u 3mo virtually I spent a total of 60 minutes on the date of the service which included preparing to see the patient, [id number] patient care, completing clinical documentation, obtaining and/or reviewing separately obtained history, performing a medically appropriate examination, counseling and educating the pat ient/family/caregiver, ordering medications, tests, or procedures, and independently interpreting results (not separately reported). Kathy Zayas MD Staff, General Neurology Pager: [phone] CC: Referring Physician: Maria Luisa Tyler [address] [facility] [address] [facility] [address] PCP: eJnnifer Christina [address] [facility] [address] [place] [address] documented in this [facility]30-[facility] History of Present illness Narrative* Jennifer Christina MD - 11/01/2022 11:40 AM EST Images from the original note were not included. [facility] [address] Jennifer Werner M.D. [address] [facility], [place], [address] Dept. Dept. VIRTUAL/PHONE VISIT Visit conducted via phone. Patient's PCP: Jennifer Christina MD Visit Date: November 01, 2022 Ms.Kelly Jarek Drake Date of : 1985 Reason for the visit: No chief complaint on file. There are no exam notes on file for this visit. History of Present Illness Lillian Drake is a 37 year old female. Patient is complaining of worsened anxiety. New patient visit. Comes to establish with new PCP. The history is provided by the patient. Anxiety This is a chronic problem. The problem has been gradually worsening (can't slow down, can't shut off. Pt having like Panic Attacks) since onset. Suspected agents: worsened after delivery of twinsbaby, , premature delivery, got them home . Pertinent negatives include no fever, nausea or vomiting. Treatments tried: on Setraline 150mg QD, for >1 year. Improvement on treatment: feels depression is well controlled, but now anxiety is out of contro. Musculoskeletal Problem This is a new problem. Progression since onset: evaluated by Acid Pump Operator, dx'd with Fibromyalgia. Recent stopped Prednisone. Associated symptoms include arthralgias (improved with oral steroids), chills and diaphoresis. Pertinent negatives include no abdominal pain, chest pain, coughing, fatigue, fever, headaches, nausea, rash or vomiting. Treatments tried: pt on Prednisone 60mg QD. Trial of tapering down to 40mg exacerbated symptoms. ACTIVE PROBLEM LIST Mild Episode of Recurrent Major Depressive Disorder ([facility]) Generalized Anxiety Disorder Mixed Hyperlipidemia Pcos (Polycystic Ovarian Syndrome) Migraine Headache Marijuana Use, Episodic Exercise-Induced Asthma Bing Positive PAST MEDICAL HISTORY Diagnosis Date Asthma exercise induced, no asthma attacks since age 19 COVID-19 virus infection 09/28/2021 + Home test. COVID-19 virus infection 08/23/2022 Depression 06/17/2014 Exercise-induced asthma 10/20/2022 Generalized anxiety disorder 2006 Infertility, female PCOS, attempted to conceive for 3 years with 2nd child Irritable bowel syndrome with both constipation and diarrhea 03/30/2018 Major depressive disorder, recurrent episode, unspecified 2006 Miscarriage 2012 Mixed hypertriglyceridemia 03/30/2018 Other migraine, not intractable, without status migrainosus 03/30/2018 Panic disorder without agoraphobia PCOS (polycystic ovarian syndrome) 2009 Polysubstance dependence ([facility]) 06/17/2014 Polysubstance dependence in early, early partial, sustained full, or sustained partial remission ([facility]) 12/10/2014 labor delivered 6 weeks early Recurrent major depressive disorder, in partial remission ([facility]) 11/19/2015 Rh negative state in antepartum period 06/27/2015 SECONDARY AMENORRHEA 06/06/2008 Tobacco use disorder 06/26/2015 Social History Tobacco Use Smoking status: Every Day Packs/day: 0.25 Years: 10.00 Pack years: 2.50 Types: Cigarettes Smokeless tobacco: Never Tobacco comments: 5 cigarretes a day Vaping Use Vaping Use: Never used Substance Use Topics Alcohol use: No Drug use: Yes Types: Marijuana Comment: occasional ALLERGIES Allergen Reactions Dicyclomine Other: See Comments Severe headache. Lexapro [Escitalopr* Other: See Comments Nausea Penicillins Rash Current Outpatient Medications Medication Sig ALPRAZolam (XANAX) 0.5 mg tablet Take 1 tablet by mouth once daily as needed for up to 30 days. sertraline (ZOLOFT) 100 mg tablet Take 150 mg by mouth once daily. famotidine (PEPCID) 20 mg tablet Take 20 mg by mouth twice daily. promethazine (PHENERGAN) 25 mg tablet Take 0.5 tablets by mouth every 6 hours as needed for nausea/vomiting. albuterol HFA (PROVENTIL HFA, VENTOLIN HFA) 90 mcg/actuation inhaler Inhale 2 Puffs as instructed every 4 hours as needed. acetaminophen 650 mg CR tablet Take 650 mg by mouth every 8 hours as needed. No current facility-administered medications for this visit. Review of Systems Review of Systems Constitutional: Positive for chills and diaphoresis. Negative for fatigue and fever. Respiratory: Negative for cough and shortness of breath. Cardiovascular: Negative for chest pain and palpitations. Gastrointestinal: Negative for abdominal pain, diarrhea, nausea and vomiting. Genitourinary: Negative for difficulty urinating and frequency. Musculoskeletal: Positive for arthralgias (improved with oral steroids). Skin: Negative for rash. Neurological: Negative for dizziness and headaches. Psychiatric/Behavioral: Positive for sleep disturbance (some trouble sleeping, but interrupted sleep). The patient is nervous/anxious. Physical Exam Physical findings of this patient are as follows: Physical Exam Results Only on 10/29/2022 Component Date Value Ref Range Status DNA Antibody 10/29/2022 <12 <30 IU/mL Final Negative for ds DNA Antibodies. <30 IU/mL Negative 30-74 IU/mL Equivocal >74 IU/mL Positive Crithidia luciliae 10/29/2022 Negative Negative Final Crithidia luciliae assay is used as an aid in diagnosis of systemic lupus erythematosus (SLE). A negative result cannot rule out SLE. Low positive titers may be seen with other systemic autoimmune diseases. Clinical correlation is required. SOLAR MAINTENANCE TECHNICIAN Antibody QUAL 10/29/2022 Positive (A) Negative Final SOLAR MAINTENANCE TECHNICIAN Antibody 10/29/2022 1.1 (A) <1.0 AI Final SM Antibody Qual 10/29/2022 Negative Negative Final Anti-Sm (Do) antibody is used as an aid in diagnosis of systemic lupus erythematosus and its presence is associated with renal disease. A negative result cannot rule out systemic lupus erythematosus. Clinical correlation is required. Test Methodology: Multiplex flow immunoassay. SM Antibody 10/29/2022 <0.2 <1.0 AI Final SSA Antibody IgG 10/29/2022 <0.2 <1.0 AI Final SSB Antibody 10/29/2022 <0.2 <1.0 AI Final SSA Antibody Qual 10/29/2022 Negative Negative Final Anti-SSA (anti-Ro) antibody is used as an aid in diagnosis of a variety of systemic autoimmune diseases, Sjogren's syndrome among others. Clinical correlation is required. Test Methodology: Multiplexflow immunoassay. SSB Antibody Qual 10/29/2022 Negative Negative Final Anti-SSB (anti-La) antibody is used as an aid in diagnosis of a variety of systemic autoimmune diseases, especially for Sjogren's syndrome and systemic lupus erythematosus. Clinical correlation is required. Test Methodology: Multiplex flow immunoassay. CK 10/29/2022 51 42 - 196 U/L Final Rheumatoid Factor 10/29/2022 10 <16 IU/mL Final CRP 10/29/2022 <0.3 <0.9 mg/dL Final Sed Rate, Westergren 10/29/2022 2 0 - 20 mm/hr Final Protein, Total 10/29/2022 6.7 6.3 - 8.0 g/dL Final Albumin 10/29/2022 4.0 3.9 - 4.9 g/dL Final Calcium, Total 10/29/2022 9.0 8.5 - 10.2 mg/dL Final Bilirubin, Total 10/29/2022 0.2 0.2 - 1.3 mg/dL Final Alkaline Phosphatase 10/29/2022 56 34 - 123 U/L Final AST 10/29/2022 21 13 - 35 U/L Final ALT 10/29/2022 16 7 - 38 U/L Final Glucose 10/29/2022 83 74 - 99 mg/dL Final The [place] Diabetes Association (ADA) provides guidance for cutoff values for fasting glucose andrandom glucose. The ADA defines fasting as no caloric intake for at least 8 hours. Fasting plasma glucose results between 100 to 125 mg/dL indicate increased risk for diabetes (prediabetes). Fasting plasma glucose results greater than or equal to 126 mg/dL meet the criteria for diagnosis of diabetes. In the absence of unequivocal hyperglycemia, results should be confirmed by repeat testing. In a patient with classic symptoms of hyperglycemia or hyperglycemic crisis, random plasma glucose results greater than or equal to 200 mg/dL meet the criteria for diagnosis of diabetes. Reference: Standards of Medical Care in Diabetes 2016, [place] [employer] Association. Diabetes Care. 2016.39(Suppl 1). BUN 10/29/2022 20 7 - 21 mg/dL Final Creatinine 10/29/2022 0.68 0.58 - 0.96 mg/dL Final Sodium 10/29/2022 137 136 - 144 mmol/L Final Potassium 10/29/2022 3.8 3.7 - 5.1 mmol/L Final Chloride 10/29/2022 105 97 - 105 mmol/L Final CO2 10/29/2022 21 (A) 22 - 30 mmol/L Final Anion Gap 10/29/2022 11 9 - 18 mmol/L Final Estimated Glomerular Filtration Ra* 10/29/2022 117 >=60 mL/min/1.73m Final Estimated Glomerular Filtration Rate (eGFR) is calculated using the 2020 CKD-EPI creatinine equation. This equation utilizes serum creatinine, sex, and age as parameters. The creatinine assay has traceable calibration to isotope dilution- mass spectrometry. Refer to KDIGO guidelines for clinical interpretation. In patients with unstable renal function, e.g. those with acute kidney injury, the eGFRmay not accurately reflect actual GFR. Cholesterol, Total 10/29/2022 397 (A) <200 mg/dL Final <200 mg/dL, Desirable 200-239 mg/dL, Borderline high >239 mg/dL, High Triglyceride 10/29/2022 519 (A) <150 mg/dL Final <150 mg/dL, Normal 150-199 mg/dL, Borderline high 200-499 mg/dL, High >499 mg/dL, Very high HDL Cholesterol 10/29/2022 44 >39 mg/dL Final 40-59 mg/dL, Acceptable >59 mg/dL, High: Negative risk factor for coronary heart disease <40 mg/dL, Low: Positive risk factor for coronary heart disease Non HDL Cholesterol 10/29/2022 353 (A) <130 mg/dL Final <130 mg/dL, Optimal 130-159 mg/dL, Near optimal/above optimal 160-189 mg/dL, Borderline high 190-219 mg/dL, High >219 mg/dL, Very high Secondary prevention optimal non HDL Cholesterol levels are recommended to be <100 mg/dL Fasting Time 10/29/2022 11 hrs Final VLDL Cholesterol 10/29/2022 Final Unable to calculate due to increased Triglycerides. See LDL-Chol, Direct. TC:HDL Ratio 10/29/2022 9.02 (A) <5.10 Final LDL Cholesterol 10/29/2022 Final Unable to calculate due to increased Triglycerides. See LDL-Chol, Direct. LDL:HDL Ratio 10/29/2022 Final Unable to calculate due to elevated Triglycerides. Reference: 1. National Cholesterol Education Program ATP III Guideline At-A-Glance Quick Desk Reference: National Heart, Lung, and Blood [place]. National Institutes of Health. 2001: NIH Publication No. 01-3305. 2. An International Atherosclerosis Society position paper: global recommendations for the management of dyslipidemia: executive summary, Atherosclerosis. 2014: 232(2):410-413. WBC 10/29/2022 11.43 (A) 3.70 - 11.00 k/uL Final RBC 10/29/2022 4.50 3.90 - 5.20 m/uL Final Hemoglobin 10/29/2022 12.9 11.5 - 15.5 g/dL Final Hematocrit 10/29/2022 39.6 36.0 - 46.0 % Final MCV 10/29/2022 88.0 80.0 - 100.0 fL Final MCH 10/29/2022 28.7 26.0 - 34.0 pg Final MCHC 10/29/2022 32.6 30.5 - 36.0 g/dL Final RDW-CV 10/29/2022 15.9 (A) 11.5 - 15.0 % Final Platelet Count 10/29/2022 197 150 - 400 k/uL Final MPV 10/29/2022 9.9 9.0 - 12.7 fL Final Absolute nRBC 10/29/2022 <0.01 <0.01 k/uL Final LDL Cholesterol, Direct 10/29/2022 168 (A) <100 mg/dL Final <100 mg/dL, Optimal 100-129 mg/dL, Near optimal/above optimal 130-159 mg/dL, Borderline high 160-189 mg/dL, High >189 mg/dL, Very high Secondary prevention optimal LDL Cholesterol levels are recommended to be < 70 mg/dL VLDL Cholesterol 10/29/2022 185 (A) <30 mg/dL Final No results found for: TSH No results found for: TSHREFL No results found for: T3 No results found for: FREET3 No results found for: T4 No results found for: FREET4 No results found for: [id number] This Team Access Model visit is a phone encounter. It required patient-provider interaction for themedical decision making as documented below. Assessment and Plan Encounter Diagnosis ICD-10-CM 1. Generalized anxiety disorder F41.1 ALPRAZolam (XANAX) 0.5 mg tablet TSH BLD T3 BLD T4 FREE/FREE THYROX Worsened anxiety recently with Panic attacks. On Sertraline 150mg >1 year. Had been effective, but not recently. We'll refill Alprazolam, short term, effective in the past. We'll re-eval on next gabriel. 2. Mixed hyperlipidemia E78.2 TSH BLD Past hx of hypertriglyceridemia. Pt with poorer diet recently. Advised to modify diet. We'll recheck in 3-4 months. 3. 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 Pt symptoms, also could be related to withdrawalfrom steroids. Return in about 24 days (around 11/25/2022) for Depression/Anxiety, Labs results. Discussed above plan with patient and/or caregiver. Patient and/or caregiver agreeable with above plan. Total visit time: 15 minutes. Jennifer Christina MD, signed on November 01, 2022 10:59 AM documented in this encounterC[facility]30-[facility] History of Present illness Narrative* Maria Luisa Tyler MD - 11/01/2022 9:53 AM EST RHEUMATOLOGY PROGRESS NOTE Patient is here for a follow up visit for Patient presents with: Joint Pain HPI: Lillian Drake is a 37 year old female who presents positive BING Having pain - multiple joints today. Ran out of pred. Joint pain, stiffness, myalgia, daily headaches, nose and mouth ulcers. Prednisone 60 mg for 4 -5 weeks. Also prescribed hydrocodone. Back pain. Chest pain. Comes and goes. THC positive in drug screen. Greenish nasal secretion. Palpitations She had had symptoms all along, but milder. She has 4 kids, 4 month of twins Family h/o autoimmune disease - first cousin with lupus Smoking - Rheumatology REVIEW OF SYSTEMS: Constitutional: Recent Weight Change: YES gaining Fatigue: YES Fever: No Night sweats: YES chills Heent: Alopecia: YES H/o Inflammatory eye disease (iritis/scleritis): No Hearing loss: No Frequent sinusitis: No Oral ulcers: YES Sicca: No Parotid swelling: No Hoarseness: No Dysphagia: No Heme/lymph: Lymphadenopathy: YES subjective Hematological abnormalities (anemia, thrombocytopenia, leukopenia): No Abnormal bleeding: No Skin: Malar or discoid lesions: YES butterfly rash few years ago Photosensitivity: No Other rashes: No Raynaud's phenomenon: No Hives: No Tightness: No Nodules/bumps: No Easy Bruising: No Nail changes: No H/o psoriasis: No Gastroenterology: Nausea: {No Vomiting: No Change in bowel movements: YES diarrhea, constipation Heartburn: No Respiratory: Dry cough/SOB: No Cardiovascular: Pain in chest: YES Musculoskeletal: Per HPI Joint pain or swelling: No Prolonged morning stiffness: No Back pain or neck pain: No Muscle weakness: No Genitourinary: Vaginal dryness: No Rash/ulcers: No Neurological: Headaches: YES Sensitivity or pain of hands and/or feet: YES Psychiatry: Anxiety: YES Depression: YES Poor sleep: YES H/o loss: YES one, 8 weeks H/o thrombosis: No Increased susceptibility to infection: No Brief Rheumatological history - Interval Review of Systems CONSTITUTIONAL: Recent Weight change: No Fever: No EYES: Dryness in nose: No Dryness of mouth: No Oral ulcers: No CARDIOVASCULAR: Pain in chest: No RESPIRATORY: Shortness of breath: No Cough: No GASTROINTESTINAL: Nausea: No Vomiting: No Changes in bowel movements: No Jaundice: No Heartburn: No MUSCULOSKELETAL: Per HPI INTEGUMENTARY: Rash: No HEMATOLOGIC/LYMPHATIC: Anemia: No NEUROLOGICAL SYSTEM: Headaches: No Sensitivity or pain of hands and/or feet: No PSYCHIATRIC: Anxiety: No Poor sleep: No PAST MEDICAL HISTORY Diagnosis Date Asthma exercise induced, no asthma attacks since age 19 COVID-19 virus infection 09/28/2021 + Home test. COVID-19 virus infection 08/23/2022 Depression 06/17/2014 Exercise-induced asthma 10/20/2022 Generalized anxiety disorder 2006 Infertility, female PCOS, attempted to conceive for 3 years with 2nd child Irritable bowel syndrome with both constipation and diarrhea 03/30/2018 Major depressive disorder, recurrent episode, unspecified 2006 Miscarriage 2012 Mixed hypertriglyceridemia 03/30/2018 Other migraine, not intractable, without status migrainosus 03/30/2018 Panic disorder without agoraphobia PCOS (polycystic ovarian syndrome) 2009 Polysubstance dependence (HCC) 06/17/2014 Polysubstance dependence in early, early partial, sustained full, or sustained partial remission (HCC) 12/10/2014 labor delivered 6 weeks early Recurrent major depressive disorder, in partial remission (HCC) 11/19/2015 Rh negative state in antepartum period 06/27/2015 SECONDARY AMENORRHEA 06/06/2008 Tobacco use disorder 06/26/2015 PAST SURGICAL HISTORY Procedure Laterality Date DELIVERY ONLY 06/24/2022 Twin , 33 wks COLONOSCOPY FLX DX W/COLLJ SPEC WHEN PFRMD 05/08/2020 Colonoscopy ESOPHAGOGASTRODUODENOSCOPY TRANSORAL DIAGNOSTIC 11/21/2014 EGD ESOPHAGOGASTRODUODENOSCOPY TRANSORAL DIAGNOSTIC 05/08/2020 EGD LIGATE FALLOPIAN TUBE 06/24/2022 History Review: I have reviewed and modified as needed, the following during this visit: Allergies,Past Medical History, Past Surgical History, Past Family History, Past Social History. BP 118/60 Pulse 80 Temp 36.8 C (98.2 F) (Temporal) Resp 13 Ht 160 cm (5' 3) Wt 78.5 kg (173 lb) LMP 10/05/2022 (Approximate) BMI 30.65 kg/m Physical Exam GENERAL: Well appearing, alert, comfortable, in no acute distress, well- hydrated, well nourished. HEENT: Negative for external ears normal. Canals are clear. Both TMs visualized and are normal. EyeExam normal. External nose normal, no nasal ulcer or throat ulcer. NECK: NECK Supple, no adenopathy; thyroid symmetric, normal size, no bruits CARDIAC: regular rate and rhythm, No murmur asculated., and Equal peripheral pulses RESPIRATORY: Lungs clear to auscultation. No wheezing, rhonchi, rales VASCULAR: RRR without murmur, gallop, or rubs. No ectopy. NEURO: Motor and sensory exam normal MOTOR: Normal; including tone, gait, stressed gait, power and coordination. SKIN: Negative for alopecia, skin rash, malar rash, skin lesion, skin ulcer, pits, thickening, color changes, telangiectasias, nail changes, nail ridging, nail pitting, onycholysis MUSCULOSKELETAL: DIPS: Normal PIPS: Normal MCPs: Normal Wrists: Normal Elbows: Normal Shoulders: Normal C-Spine: Normal Hips: Normal Knees: Normal Ankles: Normal MTPs / Toes: Normal Arches: Normal Lab Results: Glucose 83 10/29/2022 ALT 16 10/29/2022 WBC 11.43 10/29/2022 Hemoglobin 12.9 10/29/2022 Platelet Count 197 10/29/2022 Sed Rate, Westergren 2 10/29/2022 CRP <0.3 10/29/2022 Serology: Radiology: BING 1:80 RF neg CRP normal Latest Reference Range & Units 10/29/22 12:27 DNA Antibody <30 IU/mL <12 Crithidia lucillae Negative Negative Anti-SOLAR MAINTENANCE TECHNICIAN <1.0 AI 1.1 (H) Anti-SSB <1.0 AI <0.2 Anti-Sm <1.0 AI <0.2 Sm Antibody Negative Negative Anti-SSA <1.0 AI <0.2 Rheumatoid Factor <16 IU/mL 10 SOLAR MAINTENANCE TECHNICIAN Antibody QUAL Negative Positive ! SSA Antibody Qual Negative Negative SSB Antibody Qual Negative Negative (H): Data is abnormally high !: Data is abnormal FINDINGS: There are 5 nonrib-bearing lumbar vertebral bodies. There is a levocurvature of the lumbar spine with apex at L3. There is preservation of vertebral body height. There is mild disc space narrowing at T12/L1. There is mild Schmorl's nodes formation at L1/L2 and L2/L3 and L3/L4. There is mild disc space narrowing at L4/L5 and L5/S1 with mild Schmorl's nodes formation at L5/S1. There is minimal grade 1 retrolisthesis of L1 on L2, L2 on L3 and L4 on L5. Assessment and Plan (R51.9) Headaches (primary encounter diagnosis) (R76.8) BIGN positive (M79.7) Fibromyalgia (R53.81, R53.83) Malaise and fatigue (M25.50) Pain in joint, multiple sites 37-year-old female is here for polyarthralgia and myalgia. Patient has 4-month-old twin boys. She reports symptoms of anxiety, depression, poor sleep as well. Symptoms does not seem entirely inflammatory however given her young age cannot be completely ruled out. She was noted to have positive BING and was started on high doses of prednisone. She is unable to tolerate prednisone dose is less than 50 mg. Response to prednisone is often misleading. Positive BING can be seen in 20 to 30% of healthy individuals as well. She does not have other typical features seen in lupus and other autoimmune conditions. She will need further evaluation. I would advise to wean off prednisone. Medications like Cy mbalta, Lyrica, gabapentin etc. can be used. Discussed about resuming meditation, healthy diet and exercise which has helped her in the past. Admits to increased anxiety. No synovitis on exam. I advised her to follow up with PCP. High cholesterol. Discussed healthy diet. Weaned off pred. No indication for immune suppression Low titre BING, SOLAR MAINTENANCE TECHNICIAN likley non specific. Will monitor periodically. No signs of autoimmune disease. Symptoms concerning for fibromyalgia. Office Visit on 11/01/22 CONSULT TO NEUROLOGY No orders of the defined types were placed in this encounter. Return in about 1 year (around 11/01/2023). Maria Luisa Tyler MD documented [facility] History of Present illness Narrative* Maria Luisa Tyler MD - 10/27/2022 10:32 AM EST VIRTUAL VISIT PROGRESS NOTE This is a virtual visit using [employer] video visit. It required patient-provider interaction for themedical decision making as documented below. Lillian Drake is a 37 year old female seen for joint pain x 6-7 weeks. Joint pain, stiffness, myalgia, daily headaches, nose and mouth ulcers. Prednisone 60 mg for 4 -5 weeks. Also prescribed hydrocodone. Back pain. Chest pain. Comes and goes. THC positive in drug screen. Greenish nasal secretion. Palpitations She had had symptoms all along, but milder. She has 4 kids, 4 month of twins Family h/o autoimmune disease - first cousin with lupus Smoking - Rheumatology REVIEW OF SYSTEMS: Constitutional: Recent Weight Change: YES gaining Fatigue: YES Fever: No Night sweats: YES chills Heent: Alopecia: YES H/o Inflammatory eye disease (iritis/scleritis): No Hearing loss: No Frequent sinusitis: No Oral ulcers: YES Sicca: No Parotid swelling: No Hoarseness: No Dysphagia: No Heme/lymph: Lymphadenopathy: YES subjective Hematological abnormalities (anemia, thrombocytopenia, leukopenia): No Abnormal bleeding: No Skin: Malar or discoid lesions: YES butterfly rash few years ago Photosensitivity: No Other rashes: No Raynaud's phenomenon: No Hives: No Tightness: No Nodules/bumps: No Easy Bruising: No Nail changes: No H/o psoriasis: No Gastroenterology: Nausea: {No Vomiting: No Change in bowel movements: YES diarrhea, constipation Heartburn: No Respiratory: Dry cough/SOB: No Cardiovascular: Pain in chest: YES Musculoskeletal: Per HPI Joint pain or swelling: No Prolonged morning stiffness: No Back pain or neck pain: No Muscle weakness: No Genitourinary: Vaginal dryness: No Rash/ulcers: No Neurological: Headaches: YES Sensitivity or pain of hands and/or feet: YES Psychiatry: Anxiety: YES Depression: YES Poor sleep: YES H/o loss: YES one, 8 weeks H/o thrombosis: No Increased susceptibility to infection: No HISTORY REVIEWED (electronic chart updated): PAST MEDICAL HISTORY Diagnosis Date Asthma exercise induced, no asthma attacks since age 19 COVID-19 virus infection 09/28/2021 + Home test. COVID-19 virus infection 08/23/2022 Depression 06/17/2014 Exercise-induced asthma 10/20/2022 Generalized anxiety disorder 2006 Infertility, female PCOS, attempted to conceive for 3 years with 2nd child Irritable bowel syndrome with both constipation and diarrhea 03/30/2018 Major depressive disorder, recurrent episode, unspecified 2006 Miscarriage 2012 Mixed hypertriglyceridemia 03/30/2018 Other migraine, not intractable, without status migrainosus 03/30/2018 Panic disorder without agoraphobia PCOS (polycystic ovarian syndrome) 2009 Polysubstance dependence ([facility]) 06/17/2014 Polysubstance dependence in early, early partial, sustained full, or sustained partial remission ([facility]) 12/10/2014 labor delivered 6 weeks early Recurrent major depressive disorder, in partial remission ([facility]) 11/19/2015 Rh negative state in antepartum period 06/27/2015 SECONDARY AMENORRHEA 06/06/2008 Tobacco use disorder 06/26/2015 PAST SURGICAL HISTORY Procedure Laterality Date DELIVERY ONLY 06/24/2022 Twin , 33 wks COLONOSCOPY FLX DX W/COLLJ SPEC WHEN PFRMD 05/08/2020 Colonoscopy ESOPHAGOGASTRODUODENOSCOPY TRANSORAL DIAGNOSTIC 11/21/2014 EGD ESOPHAGOGASTRODUODENOSCOPY TRANSORAL DIAGNOSTIC 05/08/2020 EGD LIGATE FALLOPIAN TUBE 06/24/2022 FAMILY HISTORY Problem Relation Age of Onset No Known Problems Mother Lipids Father Thyroid Sister No Known Problems Brother No Known Problems Maternal Grandmother Ischemic Heart Disease Maternal Grandfather CA at later age Diabetes Maternal Grandfather Hypertension Maternal Grandfather Thyroid Paternal Grandmother Emphysema Paternal Grandmother No Known Problems Paternal Grandfather ADD/ADHD Son Alcohol/Drug Paternal Aunt No Known Problems Daughter Social History Tobacco Use Smoking status: Every Day Years: 10.00 Types: Cigarettes Smokeless tobacco: Never Tobacco comments: 5 cigarretes a day Vaping Use Vaping Use: Never used Substance Use Topics Alcohol use: No Drug use: No Current Outpatient Medications Medication Sig predniSONE (DELTASONE) 10 mg tablet Take 1 tablet by mouth once daily for 7 days. Take with Prednisone two 20mg tablets - to make 50mg daily. sertraline (ZOLOFT) 100 mg tablet Take 150 mg by mouth once daily. famotidine (PEPCID) 20 mg tablet Take 20 mg by mouth twice daily. promethazine (PHENERGAN) 25 mg tablet Take 0.5 tablets by mouth every 6 hours as needed for nausea/vomiting. albuterol HFA (PROVENTIL HFA, VENTOLIN HFA) 90 mcg/actuation inhaler Inhale 2 Puffs as instructed every 4 hours as needed. acetaminophen 650 mg CR tablet Take 650 mg by mouth every 8 hours as needed. No current facility-administered medications for this visit. ALLERGIES Allergen Reactions Dicyclomine Other: See Comments Severe headache. Lexapro [Escitalopr* Other: See Comments Nausea Penicillins Rash REVIEW OF SYSTEMS: All other ROS: negative As noted in HPI PHYSICAL EXAMINATION: VIDEO EXAM: (if completed, performed via video enabled technology) GENERAL: alert and appropriate, in no distress, well-hydrated, well nourished, and happy, smiling, interactive BING 1:80 RF neg CRP normal FINDINGS: There are 5 nonrib-bearing lumbar vertebral bodies. There is a levocurvature of the lumbar spine with apex at L3. There is preservation of vertebral body height. There is mild disc space narrowing at T12/L1. There is mild Schmorl's nodes formation at L1/L2 and L2/L3 and L3/L4. There is mild disc space narrowing at L4/L5 and L5/S1 with mild Schmorl's nodes formation at L5/S1. There is minimal grade 1 retrolisthesis of L1 on L2, L2 on L3 and L4 on L5. ASSESSMENT: (M25.50) Pain in joint, multiple sites (primary encounter diagnosis) (R53.81, R53.83) Malaise and fatigue (M79.7) Fibromyalgia (R76.8) BING positive PLAN: 37-year-old female is here for evaluation management recommendation for polyarthralgia and myalgia.Patient has 4-month-old twin boys. She reports symptoms of anxiety, depression, poor sleep as well.Symptoms does not seem entirely inflammatory however given her young age cannot be completely ruledout. She was noted to have positive BING and was started on high doses of prednisone. She is unable to tolerate prednisone dose is less than 50 mg. Response to prednisone is often misleading. PositiveANA can be seen in 20 to 30% of healthy individuals as well. She does not have other typical features seen in lupus and other autoimmune conditions. She will need further evaluation. I would advise to wean off prednisone. Medications like Cymbalta, Lyrica, gabapentin etc. can be used. Discussed about resuming meditation, healthy diet and exercise which has helped her in the past. Close follow-up to discuss results. There are no Patient Instructions on file for this visit. I spent a total of 30 minutes on the date of the service which included preparing to see the patient, [id number] patient care, completing clinical documentation, obtaining and/or reviewing separately obtained history, performing a medically appropriate examination, ordering medications, tests, or procedures, and communicating results to the patient/family/caregiver Maria Luisa Tyler MD [facility] on 10/27/22 DNA ANTIBODY DS BLD CRITHIDIA LUCILIAE SOLAR MAINTENANCE TECHNICIAN ANTIBODY BLOOD DO IGG AB SJOGREN ABS SSA/SSB CK CREATINE KINASE RHEUMATOID FACTOR BL CCP ANTIBODY IGG C-REACTIVE PROTEIN (CRP) SED RATE WESTERGREN VITAMIN D 25 HYDROXY URINALYSIS WITH MICROSCOPIC, REFLEX CULTURE CREATININE RANDOM UR PROTEIN RANDOM UR CBC + DIFF COMP METABOLIC PANEL FERRITIN BLD IRON + TIBC VITAMIN B12 BLOOD No orders of the defined types were placed in this encounter. Platform used - my chart documented in this encounterC[facility] History of Present illness Narrative* Shira Kimball, PROFESSOR OF ART HISTORY.CONTROL SUPERVISOR - 10/19/2022 11:20 AM EST CC: Patient presents with: Musculoskeletal Problem: states it is every where and on going for about 6 weeks with a positive BING HPI Lillian Drake is a 37 year old female who presents today for widespread myalgias and arthralgias. Associated with burning sensation in feet, swelling of multiple joints, fatigue, anxiety and back pain. She was seen in primary care for this on 09/23. Limited information available in Care Everywhere.Labs were ordered including RF, CRP, BING, TSH, and vitamin B12. Results were all normal except BING screen positive and titer 1:80 with nuclear, homogeneous pattern. Referred to rheumatology, has appointment on in one week. She also went to ER on 09/27 and 10/07 for the pain. Prescribed prednisone 60 mg and hydrocodone on 10/07. She started tapering dose of prednisone to 40 mg a couple days ago and has already noticed pain is worsening. Patient is hoping to start treatment for Lupus now before rheumatology visit with something like Plaquenil. REVIEW OF SYSTEMS See HPI PAST MEDICAL HISTORY Diagnosis Date Asthma exercise induced, no asthma attacks since age 19 COVID-19 09/28/2021 + Home test. Depression 06/17/2014 Generalized anxiety disorder 2006 Infertility, female PCOS, attempted to conceive for 3 years with 2nd child Irritable bowel syndrome with both constipation and diarrhea 03/30/2018 Major depressive disorder, recurrent episode, unspecified 2006 Miscarriage 2012 Mixed hypertriglyceridemia 03/30/2018 Other migraine, not intractable, without status migrainosus 03/30/2018 Panic disorder without agoraphobia PCOS (polycystic ovarian syndrome) 2008 Polysubstance dependence ([facility]) 06/17/2014 Polysubstance dependence in early, early partial, sustained full, or sustained partial remission (HCC) 12/10/2014 labor delivered 6 weeks early Recurrent major depressive disorder, in partial remission ([facility]) 11/19/2015 Rh negative state in antepartum period 06/27/2015 SECONDARY AMENORRHEA 06/06/2008 Tobacco use disorder 06/26/2015 PAST SURGICAL HISTORY Procedure Laterality Date COLONOSCOPY FLX DX W/COLLJ SPEC WHEN PFRMD 05/08/2020 Colonoscopy ESOPHAGOGASTRODUODENOSCOPY TRANSORAL DIAGNOSTIC 11/21/14 EGD ESOPHAGOGASTRODUODENOSCOPY TRANSORAL DIAGNOSTIC 05/08/2020 EGD ALLERGIES Dicyclomine, Lexapro [Escitalopram Oxalate], and Penicillins MEDICATIONS predniSONE (DELTASONE) 10 mg tablet Take 4 tabs daily for 3 days, then 2 tabs daily for 3 days, then 1 tab daily for 3 days with food. sertraline HCl (ZOLOFT ORAL) Take by mouth. famotidine (PEPCID) 20 mg tablet Take 20 mg by mouth twice daily. promethazine (PHENERGAN) 25 mg tablet Take 0.5 tablets by mouth every 6 hours as needed for nausea/vomiting. albuterol HFA (PROVENTIL HFA, VENTOLIN HFA) 90 mcg/actuation inhaler Inhale 2 Puffs as instructed every 4 hours as needed. acetaminophen 650 mg CR tablet Take 650 mg by mouth every 8 hours as needed. cyclobenzaprine (FLEXERIL) 10 mg tablet Take 1 tablet by mouth three times daily as needed for muscle spasm. (Patient not taking: Reported on 10/19/2022) benzonatate (TESSALON PERLES) 100 mg capsule Take 1 capsule by mouth three times daily as needed for cough. (Patient not taking: Reported on 10/19/2022) NAPROXEN ORAL Take by mouth. (Patient not taking: Reported on 06/23/2022) predniSONE (DELTASONE) 10 mg tablet TAKE BY MOUTH 4 TABLETS DAILY FOR 2 DAYS, THEN 3 TABLETS DAILY FOR 2 DAYS, THEN 2 TABLETS DAILY FOR 2 DAYS, THEN 1 TABLET DAILY FOR 2 DAYS. (Patient not taking: Nosig reported) escitalopram oxalate (LEXAPRO) 10 mg tablet Take 1 tablet by mouth once daily. (Patient not taking:Reported on 06/23/2022) FAMILY HISTORY Problem Relation Age of Onset No Known Problems Mother Lipids Father Thyroid Sister No Known Problems Brother No Known Problems Maternal Grandmother Ischemic Heart Disease Maternal Grandfather CA at later age Diabetes Maternal Grandfather Hypertension Maternal Grandfather Thyroid Paternal Grandmother Emphysema Paternal Grandmother No Known Problems Paternal Grandfather ADD/ADHD Son Alcohol/Drug Paternal Aunt No Known Problems Daughter Social History Tobacco Use Smoking status: Every Day Years: 10.00 Types: Cigarettes Smokeless tobacco: Never Tobacco comments: 5 cigarretes a day Vaping Use Vaping Use: Never used Substance Use Topics Alcohol use: No Drug use: No PHYSICAL EXAM BP 108/74 Pulse 82 Wt 76.7 kg (169 lb) LMP 10/05/2022 (Approximate) SpO2 98% No BMI 29.94 kg/m General Appearance: well appearing, in no acute distress, alert Pysch: affect is anxious Lungs: Lungs clear to auscultation. No wheezing, rhonchi, rales. Heart: RRR without murmur, gallop, or rubs. No ectopy Health maintenance reviewed with patient: HEPATITIS B(1 of 3 - 3-dose series) Never done HEPATITIS C SCREENING Never done PNEUMOCOCCAL(2 - PCV) due on 01/10/2016 COVID-19 VACCINE(3 - Booster for Pfizer series) due on 08/20/2021 DEPRESSION ASSESSMENT Never done DTAP,TDAP,TD(1 - Tdap) due on 09/11/2024 PAP TESTING due on 06/06/2025 HPV TESTING due on 06/06/2025 INFLUENZA Completed HIV SCREENING Completed DATA REVIEWED: Outside chart from ER and primary care on 09/23 reviewed. ASSESSMENT/PLAN: 1. Myalgias - ICD9: 729.1, ICD10: M79.10 (primary diagnosis) Sudden onset of acute widespread pain. Work-up negative except for positive BING. Patient is convinced she has Lupus and would like to start treatment now such as Plaquenil. Advised patient unable to prescribe these types of medications in primary care. Additionally she will need further lab work-upfor diagnosis of Lupus or other autoimmune disorder before appropriate treatment can be initiated. She will need to keep appointment with relationship counselor as scheduled and these concerns can be addressed at that time. In the mean time she is requesting something for the pain. Okay to continue with prednisone 60 mg once a day for another 7 days (less than two weeks total) until she sees rheumatology. No refills will be given. 2. Arthralgia of multiple joints - ICD9: 719.49, ICD10: M25.50 As above 3. Positive BING (antinuclear antibody) - ICD9: 795.79, ICD10: R76.8 As above Prescription instructions reviewed with patient as applicable. Potential red flag symptoms discussed with the patient. Reviewed appropriate action plan to take if red flag symptoms occur. Patient agreeable to treatment plan. During this patient visit I have spent approximately 30 minutes in counseling regarding treatment options, medications, test results, and coordinating care. Shira Kimball APRN.CNP documented in this encounterC[facility] Hospital Discharge instructions Patient Education 10/07/2022 15:29:13 AA [place] DI(CUSTOM) Body aches Please follow-up with your relationship counselor regarding your symptoms. I would suggest going to a larger hospital with more specialized care if your symptoms get worse. Document Released: 09/19/2006 Document Revised: 09/05/2013 Document Reviewed: 09/20/2014 ExitCare Patient Information 2015 [employer]. This information is not intended to replace advicegiven to you by your health care provider. Make sure you discuss any questions you have with your health care provider. Follow Up Care 10/07/2022 12:26:01 With:Your relationship counselor Address: When:2-4 days [facility] 01-05-2023 Note Discharge Instructions Thank you for allowing [facility] to assist you with your healthcare needs. The following is importantdischarge information regarding your hospital visit. Diagnosis from Today's Visit Medical screening exam What to Do Next Instructions from Your Care Team No qualifying data available. Post Acute Orders No qualifying data available. You Need to Schedule the Following Appointments Follow Up with Your relationship counselor When Within 2-4 days Where: Allergies Bentyl penicillin Medications Please ask your primary doctor or pharmacist before taking any other medication not listed, including over the counter drugs, herbal medications, vitamins and or supplements as they may interact withyour home medications. What How Much When Why Instructions Last Dose New predniSONE (prednisone 10mg tab (TAPER)) Taper 30-20-10-5 mg x 3 days each dose by mouth Two (2) times a day Duration: 12 Days Printed Prescription Unchanged acetaminophen-hydrocodone ([place] 325- 5 mg oral tablet) 1 tab(s) by mouth Every 6 hours Myalgia Duration: 3 Days Unchanged busPIRone (busPIRone 15 mg oral tablet) Unchanged fenofibrate (fenofibrate 160 mg oral tablet) 1 tab(s) by mouth Once a day Unchanged multivitamin, (PNV Plus oral tablet) Unchanged naproxen (naproxen 500 mg oral tablet) 1 tab(s) by mouth Two (2) times a day as needed for as needed for pain Myalgia Unchanged ondansetron (ondansetron 4 mg oral tablet, disintegrating) 1 tab(s) by mouth Every 6 hours as needed for Nausea/Vomiting Myalgia Unchanged PARoxetine (Paxil 40 mg oral tablet) 1 tab(s) by mouth Once a day Unchanged promethazine (promethazine 12.5 mg oral tablet) 1 tab(s) by mouth Every 4 hours as needed for for nausea/vomiting Unchanged promethazine (promethazine 12.5 mg rectal suppository) 1 suppository(ies) in the rectum Every 6 hours Gastroenteritis Please take this list to your next doctor s visit. Bring all medications you take, including over the counter medications, herbals and other supplements with you to your doctor s visit. Patients and families are reminded to discard old lists and to update any records with all medication providers or retail pharmacies. Education Materials Body aches Please follow-up with your relationship counselor regarding your symptoms. I would suggest going to a larger hospital with more specialized care if your symptoms get worse. Document Released: 09/19/2006 Document Revised: 09/05/2013 Document Reviewed: 09/20/2014 ExitCare Patient Information 2015 [employer]. This information is not intended to replace advicegiven to you by your health care provider. Make sure you discuss any questions you have with your health care provider. Additional Information VACCINATE! IT SAVES LIVES! Members of the community who have not yet received the COVID-19 vaccine and would like to receive it can visit one of [facility] vaccine clinics. There are many vaccine clinic locations within the [facility]. For locations and available times, please visit [email or web address]. It is important to note that some COVID mobile vaccine clinics are held outdoors and may be canceled in rainy orstormy conditions. To learn more about pediatric vaccinations (ages 5-11), we invite you to visit the [facility] webpage. [email or web address] [email or web address] learn more about the COVID-19 vaccine, we invite you to visit the [facility] website for a list of frequently asked questions. [email or web address] [facility] Patient Portal Access Instructions: Stay connected with your healthcare team and access your personal medical information anytime with the [facility] Patient Portal. If you would like a full copy of your medical records please contact the [facility] Department Tuesday through Tuesday between 8a.m. and 4:30p.m. Please follow the directions below to access the portal: 1.Access the email account you provided upon registration to the [facility].2.Look for an invitation email from [facility].3.Open the email and access the invitation link: Accept Invitation to [facility]4.Fill in the required trujillo to create your account. Sign into [email or web address] with your username and password that you created in the above steps to stay up to date. You can then view a summary of results, a summary of your visits, and the ability to download your summaries to your computer or send the information securely to a physician. Remember that your healthcare information is confidential, so carefully consider who you will allow to register on the [facility] Patient Portal for access to your information. You can also access the [facility] Patient Portal on the D[employer] gabriel. Simply click on Health Records under [employer] and then click on the [employer] logo. HOW TO SAFELY DISPOSE OF PRESCRIPTION MEDICATIONS Please use one of the following methods to safely dispose of your unused medications. 1.Use a drug disposal kit: the drug disposal pouch allows you to safely discard your old and unuseddrugs. Ask your nurse to give you one when you are discharged.2.Visit a local take-back location: Many local pharmacies and police departments have programs that collect old and unwanted prescriptiondrugs. Call your local pharmacy or go to http://CopperKey/1P0Vb5d to find one close to you.3.Make use of household items: Use cat litter or old coffee grounds to dispose medications if other options arenot available. Mix your drugs with these household products, seal them in an airtight container andthrow it into the garbage. Call [facility]: [phone] to be sure your drugs can be disposed of in this way. Some medicines may require a different approach.4.Never flush your medications down the toilet. IF YOU HAVE BEEN PRESCRIBED AN OPIOIDS FOR PAIN If you have been prescribed an opioid (such as hydrocodone, oxycodone or morphine), it is critical to understand the possible side effects and risks of opioid pain medications. Even when taken as directed, opioids can have several side effects including: Tolerance, meaning you might need to take more of a medication for the same pain relief. Nausea, vomiting and/or constipation. Sleepiness, dizziness, dry mouth, confusion, depression or itching. Physical dependence, meaning you have withdrawal symptoms when a medication is stopped ? this can develop within a few days. KNOW YOUR RESPONSIBILITIES It is important to know exactly how much and how often to take the opioid pain medications you are prescribed. Never take opioids in higher amounts or more often than prescribed. Do not combine opioids with alcohol or other drugs that cause drowsiness, such as benzodiazepines, also known as benzos,including diazepam and alprazolam, muscle relaxants or sleep aids. Never sell or share prescriptionopioids. This is illegal. Store opioids in a secure place and out of reach of others (including children, family, friends and visitors). The last page(s) of this document has been signed and retained as a CHART COPY Signatures Patient Education Materials AA Blank DI(CUSTOM) Medication Leaflets My discharge plan and instructions have been reviewed and explained to me and I,LILLIAN DRAKE understand my current condition and have read and understand these discharge instructions. I have received a written copy of the plan/instructions. If I have questions, I am aware that I should contact my doctor. Patient/Microphone Boom Operator Signature: Date/Time: Relationship to Patient: Witness Name/Signature: Date/Time: [facility]12-27-2022 NotePt prefers [facility] for this [facility]12-27-2022 Hospital Discharge instructions Patient Education 09/27/2022 22:10:21 Myalgias Myalgias Myalgias are another word for muscle aches and soreness. This is a symptom, not a disease. Myalgiascan have many causes. A cold, the flu, or an acute infection can cause them. So can any illness with a high fever. They may happen after exertion (such as heavy exercise) or injury (such as an accident or fall). Some medicines (such as statins and certain antidepressants) can cause myalgias. They can also be a symptom of chronic or ongoing medical problems (such as lupus, chronic fatigue, or hypothyroidism). With these illnesses, other serious symptoms often occur in addition to muscle pain andsoreness. Myalgias most often go away on their own. If they don't go away, come back, or are severe, testing may be needed to help find the cause. Home care Rest until you feel better. Follow instructions that you were given for how to care for yourself. This may depend on the cause of your myalgias. If myalgia is thought to be due to a medicine, be sure to talk to the doctor that prescribed the medicine about the best course of action. To control pain, take prescription or qhhb-vjd-mahjndk medicines as directed. Unless told not to, you can try acetaminophen or ibuprofen. Follow-up care Follow up with your healthcare provider or as advised. If your symptoms do not go away in a few days or if they come back, follow up with your healthcare provider for an exam and testing. When to see medical advice Call your healthcare provider for any of the following: Fever of 100.4 F (38 C) or higher, or as directed by your healthcare provider Pain that gets worse and not better, or that goes away and comes back New joint pains New rash Severe headache, neck pain, drowsiness, or confusion [id number] [employer]. [address] [place] [address]. All rights reserved. This information is not intended as a substitute for professional medical care. Always follow yourhealthcare professional's instructions. Follow Up Care 09/27/2022 21:34:39 With:ROGER COHEN MD Address: [address] [place] [address]- When:2-4 days [facility] 12-26-2022 Note Discharge Instructions Thank you for allowing [facility] to assist you with your healthcare needs. The following is importantdischarge information regarding your hospital visit. Diagnosis from Today's Visit Myalgia Generalized aches and pains What to Do Next Instructions from Your Care Team No qualifying data available. Post Acute Orders No qualifying data available. You Need to Schedule the Following Appointments Follow Up with ROGER COHEN MD When Within 2-4 days Where: [address] [place] [address]- Allergies Bentyl penicillin Medications Please ask your primary doctor or pharmacist before taking any other medication not listed, including over the counter drugs, herbal medications, vitamins and or supplements as they may interact withyour home medications. What How Much When Why Instructions Last Dose New acetaminophen-hydrocodone ([place] 325- 5 mg oral tablet) 1 tab(s) by mouth Every 6 hours Myalgia Duration: 3 Days Printed Prescription New naproxen (naproxen 500 mg oral tablet) 1 tab(s) by mouth Two (2) times a day as needed for as needed for pain Myalgia Printed Prescription New ondansetron (ondansetron 4 mg oral tablet, disintegrating) 1 tab(s) by mouth Every 6 hours as needed for Nausea/Vomiting Myalgia Printed Prescription Unchanged busPIRone (busPIRone 15 mg oral tablet) Unchanged fenofibrate (fenofibrate 160 mg oral tablet) 1 tab(s) by mouth Once a day Unchanged multivitamin, (PNV Plus oral tablet) Unchanged PARoxetine (Paxil 40 mg oral tablet) 1 tab(s) by mouth Once a day Unchanged promethazine (promethazine 12.5 mg oral tablet) 1 tab(s) by mouth Every 4 hours as needed for for nausea/vomiting Unchanged promethazine (promethazine 12.5 mg rectal suppository) 1 suppository(ies) in the rectum Every 6 hours Gastroenteritis Please take this list to your next doctor s visit. Bring all medications you take, including over the counter medications, herbals and other supplements with you to your doctor s visit. Patients and families are reminded to discard old lists and to update any records with all medication providers or retail pharmacies. Education Materials Myalgias Myalgias are another word for muscle aches and soreness. This is a symptom, not a disease. Myalgiascan have many causes. A cold, the flu, or an acute infection can cause them. So can any illness with a high fever. They may happen after exertion (such as heavy exercise) or injury (such as an accident or fall). Some medicines (such as statins and certain antidepressants) can cause myalgias. They can also be a symptom of chronic or ongoing medical problems (such as lupus, chronic fatigue, or hypothyroidism). With these illnesses, other serious symptoms often occur in addition to muscle pain andsoreness. Myalgias most often go away on their own. If they don't go away, come back, or are severe, testing may be needed to help find the cause. Home care Rest until you feel better. Follow instructions that you were given for how to care for yourself. This may depend on the cause of your myalgias. If myalgia is thought to be due to a medicine, be sure to talk to the doctor that prescribed the medicine about the best course of action. To control pain, take prescription or lahh-efm-xhkrcef medicines as directed. Unless told not to, you can try acetaminophen or ibuprofen. Follow-up care Follow up with your healthcare provider or as advised. If your symptoms do not go away in a few days or if they come back, follow up with your healthcare provider for an exam and testing. When to see medical advice Call your healthcare provider for any of the following: Fever of 100.4 F (38 C) or higher, or as directed by your healthcare provider Pain that gets worse and not better, or that goes away and comes back New joint pains New rash Severe headache, neck pain, drowsiness, or confusion [id number] [employer]. [address] [place] [address]. All rights reserved. This information is not intended as a substitute for professional medical care. Always follow yourhealthcare professional's instructions. Additional Information VACCINATE! IT SAVES LIVES! Members of the community who have not yet received the COVID-19 vaccine and would like to receive it can visit one of [facility] vaccine clinics. There are many vaccine clinic locations within the [facility]. For locations and available times, please visit [email or web address]. It is important to note that some COVID mobile vaccine clinics are held outdoors and may be canceled in rainy orstormy conditions. To learn more about pediatric vaccinations (ages 5-11), we invite you to visit the [facility] webpage. [email or web address] [email or web address] learn more about the COVID-19 vaccine, we invite you to visit the [employer] website for a list of frequently asked questions. [email or web address] [facility] Patient Portal Access Instructions: Stay connected with your healthcare team and access your personal medical information anytime with the [facility] Patient Portal. If you would like a full copy of your medical records please contact the [facility] Records Department Tuesday through Tuesday between 8a.m. and 4:30p.m. Please follow the directions below to access the portal: 1.Access the email account you provided upon registration to the [facility].2.Look for an invitation email from [facility].3.Open the email and access the invitation link: Accept Invitation to [facility]4.Fill in the required trujillo to create your account. Sign into [email or web address] with your username and password that you created in the above steps to stay up to date. You can then view a summary of results, a summary of your visits, and the ability to download your summaries to your computer or send the information securely to a physician. Remember that your healthcare information is confidential, so carefully consider who you will allow to register on the [facility] Patient Portal for access to your information. You can also access the [facility] Patient Portal on the Dibspace. Simply click on Health Records under [employer] and then click on the [facility] logo. HOW TO SAFELY DISPOSE OF PRESCRIPTION MEDICATIONS Please use one of the following methods to safely dispose of your unused medications. 1.Use a drug disposal kit: the drug disposal pouch allows you to safely discard your old and unuseddrugs. Ask your nurse to give you one when you are discharged.2.Visit a local take-back location: Many local pharmacies and police departments have programs that collect old and unwanted prescriptiondrugs. Call your local pharmacy or go to http://bit.ly/6E0Ph7t to find one close to you.3.Make use of household items: Use cat litter or old coffee grounds to dispose medications if other options arenot available. Mix your drugs with these household products, seal them in an airtight container andthrow it into the garbage. Call [facility]: [phone] to be sure your drugs can be disposed of in this way. Some medicines may require a different approach.4.Never flush your medications down the toilet. IF YOU HAVE BEEN PRESCRIBED AN OPIOIDS FOR PAIN If you have been prescribed an opioid (such as hydrocodone, oxycodone or morphine), it is critical to understand the possible side effects and risks of opioid pain medications. Even when taken as directed, opioids can have several side effects including: Tolerance, meaning you might need to take more of a medication for the same pain relief. Nausea, vomiting and/or constipation. Sleepiness, dizziness, dry mouth, confusion, depression or itching. Physical dependence, meaning you have withdrawal symptoms when a medication is stopped ? this can develop within a few days. KNOW YOUR RESPONSIBILITIES It is important to know exactly how much and how often to take the opioid pain medications you are prescribed. Never take opioids in higher amounts or more often than prescribed. Do not combine opioids with alcohol or other drugs that cause drowsiness, such as benzodiazepines, also known as benzos,including diazepam and alprazolam, muscle relaxants or sleep aids. Never sell or share prescriptionopioids. This is illegal. Store opioids in a secure place and out of reach of others (including children, family, friends and visitors). The last page(s) of this document has been signed and retained as a CHART COPY Signatures Patient Education Materials Myalgias Medication Leaflets My discharge plan and instructions have been reviewed and explained to me and I,LILLIAN DRAKE understand my current condition and have read and understand these discharge instructions. I have received a written copy of the plan/instructions. If I have questions, I am aware that I should contact my doctor. Patient/Microphone Boom Operator Signature: Date/Time: Relationship to Patient: Witness Name/Signature: Date/Time: [facility]11-01-2022 Instructions* Patient Instructions* Livia Trivedi APRN.[facility] - 08/03/2022 10:13 AM EDT RESPIRATORY INFECTION GENERAL INFORMATION: An upper respiratory tract infection, or cold, is a viral infection of the airway passages. It can be caused by any one of almost 200 different viruses. Common symptoms include a runny or stuffy nose, sneezing, watery eyes, sore throat, cough, and slight fever. Colds are contagious, especially during the first 3 or 4 days and cannot be cured by antibiotics. They are spread by coughs, sneezes, anddirect contact, especially rieg-sq-lwhm. A respiratory tract infection usually clears up in a few days, but some people may be sick for a week or two. INSTRUCTIONS: 1. Be careful not to blow your nose too hard because this may cause a nosebleed. 2. Use a cool-mist humidifier (vaporizer) to increase air moisture. This will make it easier for you to breathe. Do not use hot steam. 3. Rest as much as possible and get plenty of sleep. 4. Wash your hands often, especially after you blow your nose. Cover your mouth and nose with a tissue when you sneeze or cough. 5. Drink plenty of clear fluids (8 glasses a day) such as water, fruit juice, tea, clear soups, andcarbonated beverages. CONTACT YOUR DOCTOR IF : 1. Your fever lasts more than 3 days. 2. You have a sore throat that gets worse or you see white or yellow spots in your throat. 3. Your cough gets worse or lasts more than 10 days. 4. You develop a rash anywhere on your skin. 5. You have an earache or a headache. 6. You have thick greenish or yellowish discharge from your nose. RETURN IMMEDIATELY IF: 1. You cough up thick yellow, green, gallo, or bloody sputum. 2. You have difficulty breathing, pain in your chest, or your skin or nails look gallo or blue. 3. You have shaking chills or a temperature over 102 F (39 C). [facility] History of Present illness Narrative* Heather Fajardo RT(R) - 08/03/2022 10:00 AM EDT Radiology Service Progress Note PATIENT NAME: Lillian Drake DATE OF SERVICE: August 03, 2022 TIME: 9:57 AM PATIENT IDENTITY VERIFICATION COMPLETED USING TWO (2) IDENTIFIERS: Name and Date of confirmedby patient verbally. FALL SCREENING: Has the patient had 2 falls in the last year or 1 fall with injury or currently using an Ambulatory Assistive Device (Walker, Cane, Wheelchair, Crutches, etc.)? No PATIENT GENDER DATA: Female. status: status: Yes status: YES twins 5 weeks ago. PATIENT RELEVANT IMPLANT DATA REVIEWED: Not Applicable RADIOLOGY DEPARTMENT: General X-ray: Exam(s) Completed: Chest X-Ray PERIPHERAL IV DATA: Not applicable SIGNED BY: RT Rohan(R) August 03, 2022 9:57 AM [facility] History of Present illness Narrative* Livia Trivedi APRN.[employer] - 08/03/2022 9:31 AM EDT This note was created using My Friend's Laneriter. Subjective Lillian Drake is a 36 year old female. 36 year old female with PMH anxiety presents for illness. Acute onset 3 days ago +cough +chest +congestion Intermittent hot and clamminess yesterday. States that she is experiencing body aches Upper back pain think that is from bending up and down from the twins States that she is experiencing pain in ribs. Worse with movement and deep inspiration and coughing Has used Tylenol and Ibuprofen without relief. Utilized Naproxen. States she used a left over pain pill, endorses that helped. She is requesting a refill on her pain medicines. States she has 6 week newborns at home, Denies CP. Denies dyspnea Denies hemoptysis Denies tobacco usage Denies she is nursing The history is provided by the patient. No staff interpreter was used. Cough This is a new problem. The current episode started more than 2 days ago. The problem occurs constantly. The problem has not changed since onset.The cough is Non-productive. There has been no fever. Associated symptoms include chills, sweats, headaches, rhinorrhea, sore throat and myalgias. Pertinent negatives include no chest pain, no weight loss, no ear congestion, no ear pain, no shortness of breath, no wheezing and no eye redness. Treatments tried: see hpi. She is not a smoker. Her past medical history does not include bronchitis, pneumonia, bronchiectasis, COPD, emphysema or asthma. PAST MEDICAL HISTORY Diagnosis Date Asthma exercise induced, no asthma attacks since age 19 COVID-19 09/28/2021 + Home test. Depression 06/17/2014 Generalized anxiety disorder 2006 Infertility, female PCOS, attempted to conceive for 3 years with 2nd child Irritable bowel syndrome with both constipation and diarrhea 03/30/2018 Major depressive disorder, recurrent episode, unspecified 2006 Miscarriage 2011 Mixed hypertriglyceridemia 03/30/2018 Other migraine, not intractable, without status migrainosus 03/30/2018 Panic disorder without agoraphobia PCOS (polycystic ovarian syndrome) 2008 Polysubstance dependence (HCC) 06/17/2014 Polysubstance dependence in early, early partial, sustained full, or sustained partial remission (HCC) 12/10/2014 labor delivered 6 weeks early Recurrent major depressive disorder, in partial remission (HCC) 11/19/2015 Rh negative state in antepartum period 06/27/2015 SECONDARY AMENORRHEA 06/06/2008 Tobacco use disorder 06/26/2015 PAST SURGICAL HISTORY Procedure Laterality Date COLONOSCOPY FLX DX W/COLLJ SPEC WHEN PFRMD 05/08/2020 Colonoscopy ESOPHAGOGASTRODUODENOSCOPY TRANSORAL DIAGNOSTIC 11/21/14 EGD ESOPHAGOGASTRODUODENOSCOPY TRANSORAL DIAGNOSTIC 05/08/2020 EGD ALLERGIES Dicyclomine, Lexapro [Escitalopram Oxalate], and Penicillins MEDICATIONS sertraline HCl (ZOLOFT ORAL) Take by mouth. famotidine (PEPCID) 20 mg tablet Take 20 mg by mouth twice daily. promethazine (PHENERGAN) 25 mg tablet Take 0.5 tablets by mouth every 6 hours as needed for nausea/vomiting. albuterol HFA (PROVENTIL HFA, VENTOLIN HFA) 90 mcg/actuation inhaler Inhale 2 Puffs as instructed every 4 hours as needed. acetaminophen 650 mg CR tablet Take 650 mg by mouth every 8 hours as needed. cyclobenzaprine (FLEXERIL) 10 mg tablet Take 1 tablet by mouth three times daily as needed for muscle spasm. predniSONE (DELTASONE) 10 mg tablet Take 4 tabs daily for 3 days, then 2 tabs daily for 3 days, then 1 tab daily for 3 days with food. benzonatate (TESSALON PERLES) 100 mg capsule Take 1 capsule by mouth three times daily as needed for cough. NAPROXEN ORAL Take by mouth. (Patient not taking: Reported on 06/23/2022) predniSONE (DELTASONE) 10 mg tablet TAKE BY MOUTH 4 TABLETS DAILY FOR 2 DAYS, THEN 3 TABLETS DAILY FOR 2 DAYS, THEN 2 TABLETS DAILY FOR 2 DAYS, THEN 1 TABLET DAILY FOR 2 DAYS. (Patient not taking: Reported on 06/23/2022) escitalopram oxalate (LEXAPRO) 10 mg tablet Take 1 tablet by mouth once daily. (Patient not taking:Reported on 06/23/2022) FAMILY HISTORY Problem Relation Age of Onset No Known Problems Mother Lipids Father Thyroid Sister No Known Problems Brother No Known Problems Maternal Grandmother Ischemic Heart Disease Maternal Grandfather CA at later age Diabetes Maternal Grandfather Hypertension Maternal Grandfather Thyroid Paternal Grandmother Emphysema Paternal Grandmother No Known Problems Paternal Grandfather ADD/ADHD Son Alcohol/Drug Paternal Aunt No Known Problems Daughter Social History Tobacco Use Smoking status: Every Day Years: 10.00 Types: Cigarettes Smokeless tobacco: Never Tobacco comments: 5 cigarretes a day Vaping Use Vaping Use: Never used Substance Use Topics Alcohol use: No Drug use: No Review of Systems Constitutional: Positive for chills and fatigue. Negative for fever and weight loss. HENT: Positive for congestion, rhinorrhea and sore throat. Negative for ear pain. Eyes: Negative for pain, discharge, redness and itching. Respiratory: Positive for cough. Negative for apnea, choking, chest tightness, shortness of breath and wheezing. Cardiovascular: Negative for chest pain. Gastrointestinal: Negative for abdominal pain, diarrhea, nausea and vomiting. Musculoskeletal: Positive for back pain and myalgias. Negative for arthralgias. Skin: Negative for color change, pallor, rash and wound. Allergic/Immunologic: Negative for environmental allergies, food allergies and immunocompromised state. Neurological: Positive for headaches. Negative for dizziness and facial asymmetry. Hematological: Negative for adenopathy. Does not bruise/bleed easily. Psychiatric/Behavioral: Negative for agitation and behavioral problems. Objective BP 102/76 Pulse 73 Temp 36.2 C (97.2 F) (Tympanic) Resp 18 Wt 72.8 kg (160 lb 6.4 oz) LMP06/08/2019 (Approximate) SpO2 97% BMI 28.41 kg/m Physical Exam Vitals and nursing note reviewed. Constitutional: General: She is not in acute distress. Appearance: Normal appearance. She is normal weight. She is not ill-appearing, toxic-appearing or diaphoretic. HENT: Head: Normocephalic and atraumatic. Right Ear: Ear canal and external ear normal. Left Ear: Ear canal and external ear normal. Nose: Nose normal. No congestion or rhinorrhea. Mouth/Throat: Mouth: Mucous membranes are moist. Pharynx: No oropharyngeal exudate or posterior oropharyngeal erythema. Eyes: General: Right eye: No discharge. Left eye: No discharge. Extraocular Movements: Extraocular movements intact. Conjunctiva/sclera: Conjunctivae normal. Pupils: Pupils are equal, round, and reactive to light. Cardiovascular: Rate and Rhythm: Normal rate and regular rhythm. Pulses: Normal pulses. Heart sounds: Normal heart sounds. No murmur heard. No friction rub. Pulmonary: Effort: Pulmonary effort is normal. No respiratory distress. Breath sounds: Normal breath sounds. No stridor. No wheezing, rhonchi or rales. Comments: Nagging, dry non productive cough noted Chest: Chest wall: No tenderness. Abdominal: General: Abdomen is flat. There is no distension. Palpations: Abdomen is soft. There is no mass. Tenderness: There is no abdominal tenderness. There is no right CVA tenderness, left CVA tenderness, guarding or rebound. Hernia: No hernia is present. Musculoskeletal: General: No swelling, tenderness, deformity or signs of injury. Normal range of motion. Cervical back: Normal range of motion and neck supple. No rigidity. Right lower leg: No edema. Left lower leg: No edema. Lymphadenopathy: Cervical: No cervical adenopathy. Skin: General: Skin is warm and dry. Coloration: Skin is not jaundiced or pale. Findings: No bruising, erythema, lesion or rash. Neurological: General: No focal deficit present. Mental Status: She is alert and oriented to person, place, and time. Cranial Nerves: No cranial nerve deficit. Sensory: No sensory deficit. Motor: No weakness. Coordination: Coordination normal. Gait: Gait normal. Psychiatric: Mood and Affect: Mood normal. Behavior: Behavior normal. Thought Content: Thought content normal. Judgment: Judgment normal. Assessment and Plan ASSESSMENT/PLAN: 1. Acute cough - ICD9: 786.2, ICD10: R05.1 (primary diagnosis) X 3 days Patient has persistent non productive nagging cough +generalized chest wall tenderness with deep inspiration and with coughing No red flags Hemodynamically stable - XR CHEST 2V FRONTAL/LAT-negative - COVID WITH FLUA+B, ROUTINE-obtained and pending 2. URI, acute - ICD9: 465.9, ICD10: J06.9 - Discussed viral etiology and rationale for treatment. - Symptomatic treatment with prn analgesia - Supportive care with fluids and rest - The patient may also use OTC cough and cold meds as needed, warm salt water gargles, throat lozenges and/or OTC throat spray as needed, nasal saline gtts and suction prn, and RX Prednisone Taper RX Tessalon Perles Patient given RX Flexeril for upper back and musculo pain to trial as she states Ibuprofen, Naprosyand Tylenol no working States she had a leftover pain pill from her delivery, she requested a refill Discussed with patient that express care cannot provide narcotic pain medicine She is to follow up with her PCP . - Follow up in 3-5 days if symptoms persist or sooner if worsening of symptoms - - KETOROLAC 60 MG/2 ML INTRAMUSCULAR SOLUTION-provided here in clinic. - COVID WITH FLUA+B, ROUTINE Livia Trivedi APRN.SARA [facility] History of Past illness Narrative* Problem Noted Date Resolved Date Abdominal pain affecting 06/29/2022 10/20/2022 Overview: - POD5 twin section at 33 weeks for PPROM - increased abdominal pain x2 days - constipated, first bowel movement last night then two in OB ED - given mylicon - pain greatly improved s/p bowel movement, diarrhea - instructed to hold colace and miralax until diarrhea resolved - given return precautions for increase in pain or heavy bleeding History of depression 07/27/2018 03/16/2019 Overview: 07/27/2018Pt has a history of depression/anxiety/panic attacks since 2006. She currently takes Paxil prescribed by Dr. Dr Becerra . She is made aware that Paxil is a Category D medication in [place] and advised to call Dr Becerra to discuss medication management of her depression during . Discussed increased risks of depression during and and importance of reporting the development or worsening of symptoms should they occur. Patient denies any history of depression. Pt denies ever having any suicidal thoughts or tendencies or thoughts of hurting others. TKRN Family history of congenital heart defect 201703/16/2019 Overview: 07/27/2018 Pt. has two first first cousins born with a hole in heart. She has a first cousin with mental retardation. TKRN Tobacco use during , antepartum 018 09/19/2019 Overview: 07/27/2018Pt smokes 2 cigarettes a day. Discussed risks of smoking during . Advised pt to quit. TKRN History of drug abuse 07/27/2018 03/16/2019 Overview: 07/27/2018Patient has a history of polysubstance abuse. She states she has abused Adderal and has used Cocaine in the past. She denies any drug abuse for the past 3 years. States she has a sponsor, but does not attend any counseling or support groups. I have discussed the benefits of support groups. TKRN History of delivery, currently 07/27/2018 03/16/2019 Overview: 07/27/2018Patient has a history of delivery at 34 weeks with her 1st . She did 17P progesterone injections with subsequent and delivered at 39 weeks. TKRN Nausea and vomiting in 07/27/2018 03/16/2019 Overview: 07/27/2018Patient is complaining of nausea in . Denies vomiting. Advised patient to call/come in if she is unable to keep any food or fluids down in a 24-hour period.TKRN Patient requested diagnostic testing 07/27/2018 03/16/2019 Overview: 07/27/2018Patient desires nuchal ultrasound. Considering CF carrier screening testing. TKRN with uncertain dates, antepartum 07/2703/16/2019 Overview: 07/27/2018Patient states LMP 04/2018. History of irregular menses. Negative test 07/13/2018. Positive test 07/19/2018. TKRN Irritable bowel syndrome with both constipation and diarrhea 03/30/2018 06/27/2020 Adjustment disorder with mixed anxiety and depre ssed mood 09/14/2016 03/30/2018 Recurrent major depressive disorder, in partial remission 11/19/2015 06/27/2020 Rh negative state in antepartum period 5 03/16/2019 High risk due to history of la bor 06/26/2015 03/30/2018 Overview: Consult [facility] for 17-OH in - JV Tobacco use disorder 06/26/2015 10/20/2022 RUQ abdominal pain 11/21/2014 06/26/2015 Abdominal pain 07/14/2012 03/19/2015 Overview: BHCG quant NEG 07/12/12. Pt sent to ER for evulation Polycystic ovaries 06/27/2008 03/19/2015 Overview: Meets criteria - amenorrhea, DHEA-S elevated, other labs ok But hasn't had other clinical signs (obesity, acne, hair growth) SECONDARY AMENORRHEA 06/06/2008 03/19/2015 PANIC DISORDER WITHOUT AGORAPHOBIA 06/26/2015 documented as of this encounter (statuses as of 10/27/2022) [facility] History of Past illness Narrative* Problem Noted Date Resolved Date Abdominal pain affecting 06/29/2022 10/20/2022 Overview: - POD5 twin section at 33 weeks for PPROM - increased abdominal pain x2 days - constipated, first bowel movement last night then two in OB ED - given mylicon - pain greatly improved s/p bowel movement, diarrhea - instructed to hold colace and miralax until diarrhea resolved - given return precautions for increase in pain or heavy bleeding History of depression 07/27/2018 03/16/2019 Overview: 07/27/2018Pt has a history of depression/anxiety/panic attacks since 2006. She currently takes Paxil prescribed by Dr. Dr Becerra . She is made aware that Paxil is a Category D medication in [place] and advised to call Dr Becerra to discuss medication management of her depression during . Discussed increased risks of depression during and and importance of reporting the development or worsening of symptoms should they occur. Patient denies any history of depression. Pt denies ever having any suicidal thoughts or tendencies or thoughts of hurting others. TKRN Family history of congenital heart defect 201703/16/2019 Overview: 07/27/2018 Pt. has two first first cousins born with a hole in heart. She has a first cousin with mental retardation. TKRN Tobacco use during , antepartum 018 09/19/2019 Overview: 07/27/2018Pt smokes 2 cigarettes a day. Discussed risks of smoking during . Advised pt to quit. TKRN History of drug abuse 07/27/2018 03/16/2019 Overview: 07/27/2018Patient has a history of polysubstance abuse. She states she has abused Adderal and has used Cocaine in the past. She denies any drug abuse for the past 3 years. States she has a sponsor, but does not attend any counseling or support groups. I have discussed the benefits of support groups. TKRN History of delivery, currently 07/27/2018 03/16/2019 Overview: 07/27/2018Patient has a history of delivery at 34 weeks with her 1st . She did 17P progesterone injections with subsequent and delivered at 39 weeks. TKRN Nausea and vomiting in 07/27/2018 03/16/2019 Overview: 07/27/2018Patient is complaining of nausea in . Denies vomiting. Advised patient to call/come in if she is unable to keep any food or fluids down in a 24-hour period.TKRN Patient requested diagnostic testing 07/27/2018 03/16/2019 Overview: 07/27/2018Patient desires nuchal ultrasound. Considering CF carrier screening testing. TKRN with uncertain dates, antepartum 07/2703/16/2019 Overview: 07/27/2018Patient states LMP 04/2018. History of irregular menses. Negative test 07/13/2018. Positive test 07/19/2018. TKRN Irritable bowel syndrome with both constipation and diarrhea 03/30/2018 06/27/2020 Adjustment disorder with mixed anxiety and depre ssed mood 09/14/2016 03/30/2018 Recurrent major depressive disorder, in partial remission 11/19/2015 06/27/2020 Rh negative state in antepartum period 5 03/16/2019 High risk due to history of la bor 06/26/2015 03/30/2018 Overview: Consult [facility] for 17-OH in - JV Tobacco use disorder 06/26/2015 10/20/2022 RUQ abdominal pain 11/21/2014 06/26/2015 Abdominal pain 07/14/2012 03/19/2015 Overview: BHCG quant NEG 07/12/12. Pt sent to ER for evulation Polycystic ovaries 06/27/2008 03/19/2015 Overview: Meets criteria - amenorrhea, DHEA-S elevated, other labs ok But hasn't had other clinical signs (obesity, acne, hair growth) SECONDARY AMENORRHEA 06/06/2008 03/19/2015 PANIC DISORDER WITHOUT AGORAPHOBIA 06/26/2015 documented as of this encounter (statuses as of 11/01/2022) [facility] History of Past illness Narrative* Problem Noted Date Resolved Date Abdominal pain affecting 06/29/2022 10/20/2022 Overview: - POD5 twin section at 33 weeks for PPROM - increased abdominal pain x2 days - constipated, first bowel movement last night then two in OB ED - given mylicon - pain greatly improved s/p bowel movement, diarrhea - instructed to hold colace and miralax until diarrhea resolved - given return precautions for increase in pain or heavy bleeding History of depression 07/27/2018 03/16/2019 Overview: 07/27/2018Pt has a history of depression/anxiety/panic attacks since 2006. She currently takes Paxil prescribed by Dr. Dr Becerra . She is made aware that Paxil is a Category D medication in [place] and advised to call Dr Becerra to discuss medication management of her depression during . Discussed increased risks of depression during and and importance of reporting the development or worsening of symptoms should they occur. Patient denies any history of depression. Pt denies ever having any suicidal thoughts or tendencies or thoughts of hurting others. TKRN Family history of congenital heart defect 201703/16/2019 Overview: 07/27/2018 Pt. has two first first cousins born with a hole in heart. She has a first cousin with mental retardation. TKRN Tobacco use during , antepartum 018 09/19/2019 Overview: 07/27/2018Pt smokes 2 cigarettes a day. Discussed risks of smoking during . Advised pt to quit. TKRN History of drug abuse 07/27/2018 03/16/2019 Overview: 07/27/2018Patient has a history of polysubstance abuse. She states she has abused Adderal and has used Cocaine in the past. She denies any drug abuse for the past 3 years. States she has a sponsor, but does not attend any counseling or support groups. I have discussed the benefits of support groups. TKRN History of delivery, currently 07/27/2018 03/16/2019 Overview: 07/27/2018Patient has a history of delivery at 34 weeks with her 1st . She did 17P progesterone injections with subsequent and delivered at 39 weeks. TKRN Nausea and vomiting in 07/27/2018 03/16/2019 Overview: 07/27/2018Patient is complaining of nausea in . Denies vomiting. Advised patient to call/come in if she is unable to keep any food or fluids down in a 24-hour period.TKRN Patient requested diagnostic testing 07/27/2018 03/16/2019 Overview: 07/27/2018Patient desires nuchal ultrasound. Considering CF carrier screening testing. TKRN with uncertain dates, antepartum 07/2703/16/2019 Overview: 07/27/2018Patient states LMP 04/2018. History of irregular menses. Negative test 07/13/2018. Positive test 07/19/2018. TKRN Irritable bowel syndrome with both constipation and diarrhea 03/30/2018 06/27/2020 Adjustment disorder with mixed anxiety and depre ssed mood 09/14/2016 03/30/2018 Recurrent major depressive disorder, in partial remission 11/19/2015 06/27/2020 Rh negative state in antepartum period 5 03/16/2019 High risk due to history of la bor 06/26/2015 03/30/2018 Overview: Consult [facility] for 17-OH in - JV Tobacco use disorder 06/26/2015 10/20/2022 RUQ abdominal pain 11/21/2014 06/26/2015 Abdominal pain 07/14/2012 03/19/2015 Overview: BHCG quant NEG 07/12/12. Pt sent to ER for evulation Polycystic ovaries 06/27/2008 03/19/2015 Overview: Meets criteria - amenorrhea, DHEA-S elevated, other labs ok But hasn't had other clinical signs (obesity, acne, hair growth) SECONDARY AMENORRHEA 06/06/2008 03/19/2015 PANIC DISORDER WITHOUT AGORAPHOBIA 06/26/2015 documented as of this encounter (statuses as of 11/01/2022) [facility] History of Past illness Narrative* Problem Noted Date Resolved Date Abdominal pain affecting 06/29/2022 10/20/2022 Overview: - POD5 twin section at 33 weeks for PPROM - increased abdominal pain x2 days - constipated, first bowel movement last night then two in OB ED - given mylicon - pain greatly improved s/p bowel movement, diarrhea - instructed to hold colace and miralax until diarrhea resolved - given return precautions for increase in pain or heavy bleeding History of depression 07/27/2018 03/16/2019 Overview: 07/27/2018Pt has a history of depression/anxiety/panic attacks since 2005. She currently takes Paxil prescribed by Dr. Dr Becerra . She is made aware that Paxil is a Category D medication in [place] and advised to call Dr Becerra to discuss medication management of her depression during . Discussed increased risks of depression during and and importance of reporting the development or worsening of symptoms should they occur. Patient denies any history of depression. Pt denies ever having any suicidal thoughts or tendencies or thoughts of hurting others. TKRN Family history of congenital heart defect 201703/16/2019 Overview: 07/27/2018 Pt. has two first first cousins born with a hole in heart. She has a first cousin with mental retardation. TKRN Tobacco use during , antepartum 018 09/19/2019 Overview: 07/27/2018Pt smokes 2 cigarettes a day. Discussed risks of smoking during . Advised pt to quit. TKRN History of drug abuse 07/27/2018 03/16/2019 Overview: 07/27/2018Patient has a history of polysubstance abuse. She states she has abused Adderal and has used Cocaine in the past. She denies any drug abuse for the past 3 years. States she has a sponsor, but does not attend any counseling or support groups. I have discussed the benefits of support groups. TKRN History of delivery, currently 07/27/2018 03/16/2019 Overview: 07/27/2018Patient has a history of delivery at 34 weeks with her 1st . She did 17P progesterone injections with subsequent and delivered at 39 weeks. TKRN Nausea and vomiting in 07/27/2018 03/16/2019 Overview: 07/27/2018Patient is complaining of nausea in . Denies vomiting. Advised patient to call/come in if she is unable to keep any food or fluids down in a 24-hour period.TKRN Patient requested diagnostic testing 07/27/2018 03/16/2019 Overview: 07/27/2018Patient desires nuchal ultrasound. Considering CF carrier screening testing. TKRN with uncertain dates, antepartum 07/2703/16/2019 Overview: 07/27/2018Patient states LMP 04/2018. History of irregular menses. Negative test 07/13/2018. Positive test 07/19/2018. TKRN Irritable bowel syndrome with both constipation and diarrhea 03/30/2018 06/27/2020 Adjustment disorder with mixed anxiety and depre ssed mood 09/14/2016 03/30/2018 Recurrent major depressive disorder, in partial remission 11/19/2015 06/27/2020 Rh negative state in antepartum period 5 03/16/2019 High risk due to history of la bor 06/26/2015 03/30/2018 Overview: Consult [facility] for 17-OH in - JV Tobacco use disorder 06/26/2015 10/20/2022 RUQ abdominal pain 11/21/2014 06/26/2015 Abdominal pain 07/14/2012 03/19/2015 Overview: BHCG quant NEG 07/12/12. Pt sent to ER for evulation Polycystic ovaries 06/27/2008 03/19/2015 Overview: Meets criteria - amenorrhea, DHEA-S elevated, other labs ok But hasn't had other clinical signs (obesity, acne, hair growth) SECONDARY AMENORRHEA 06/06/2008 03/19/2015 PANIC DISORDER WITHOUT AGORAPHOBIA 06/26/2015 documented as of this encounter (statuses as of 11/12/2022) [facility] of Past illness Narrative* Problem Noted Date Resolved Date Abdominal pain affecting 06/29/2022 10/20/2022 Overview: - POD5 twin section at 33 weeks for PPROM - increased abdominal pain x2 days - constipated, first bowel movement last night then two in OB ED - given mylicon - pain greatly improved s/p bowel movement, diarrhea - instructed to hold colace and miralax until diarrhea resolved - given return precautions for increase in pain or heavy bleeding History of depression 07/27/2018 03/16/2019 Overview: 07/27/2018Pt has a history of depression/anxiety/panic attacks since 2005. She currently takes Paxil prescribed by Dr. Dr Becerra . She is made aware that Paxil is a Category D medication in [place] and advised to call Dr Becerra to discuss medication management of her depression during . Discussed increased risks of depression during and and importance of reporting the development or worsening of symptoms should they occur. Patient denies any history of depression. Pt denies ever having any suicidal thoughts or tendencies or thoughts of hurting others. TKRN Family history of congenital heart defect 201703/16/2019 Overview: 07/27/2018 Pt. has two first first cousins born with a hole in heart. She has a first cousin with mental retardation. TKRN Tobacco use during , antepartum 018 09/19/2019 Overview: 07/27/2018Pt smokes 2 cigarettes a day. Discussed risks of smoking during . Advised pt to quit. TKRN History of drug abuse 07/27/2018 03/16/2019 Overview: 07/27/2018Patient has a history of polysubstance abuse. She states she has abused Adderal and has used Cocaine in the past. She denies any drug abuse for the past 3 years. States she has a sponsor, but does not attend any counseling or support groups. I have discussed the benefits of support groups. TKRN History of delivery, currently 07/27/2018 03/16/2019 Overview: 07/27/2018Patient has a history of delivery at 34 weeks with her 1st . She did 17P progesterone injections with subsequent and delivered at 39 weeks. TKRN Nausea and vomiting in 07/27/2018 03/16/2019 Overview: 07/27/2018Patient is complaining of nausea in . Denies vomiting. Advised patient to call/come in if she is unable to keep any food or fluids down in a 24-hour period.TKRN Patient requested diagnostic testing 07/27/2018 03/16/2019 Overview: 07/27/2018Patient desires nuchal ultrasound. Considering CF carrier screening testing. TKRN with uncertain dates, antepartum 07/2703/16/2019 Overview: 07/27/2018Patient states LMP 04/2018. History of irregular menses. Negative test 07/13/2018. Positive test 07/19/2018. TKRN Irritable bowel syndrome with both constipation and diarrhea 03/30/2018 06/27/2020 Adjustment disorder with mixed anxiety and depre ssed mood 09/14/2016 03/30/2018 Recurrent major depressive disorder, in partial remission 11/19/2015 06/27/2020 Rh negative state in antepartum period 5 03/16/2019 High risk due to history of la bor 06/26/2015 03/30/2018 Overview: Consult [facility] for 17-OH in - JV Tobacco use disorder 06/26/2015 10/20/2022 RUQ abdominal pain 11/21/2014 06/26/2015 Abdominal pain 07/14/2012 03/19/2015 Overview: BHCG quant NEG 07/12/12. Pt sent to ER for evulation Polycystic ovaries 06/27/2008 03/19/2015 Overview: Meets criteria - amenorrhea, DHEA-S elevated, other labs ok But hasn't had other clinical signs (obesity, acne, hair growth) SECONDARY AMENORRHEA 06/06/2008 03/19/2015 PANIC DISORDER WITHOUT AGORAPHOBIA 06/26/2015 documented as of this encounter (statuses as of 11/25/2022) [facility] of Past illness Narrative* Problem Noted Date Resolved Date Abdominal pain affecting 06/29/2022 10/20/2022 Overview: - POD5 twin section at 33 weeks for PPROM - increased abdominal pain x2 days - constipated, first bowel movement last night then two in OB ED - given mylicon - pain greatly improved s/p bowel movement, diarrhea - instructed to hold colace and miralax until diarrhea resolved - given return precautions for increase in pain or heavy bleeding History of depression 07/27/2018 03/16/2019 Overview: 07/27/2018Pt has a history of depression/anxiety/panic attacks since 2006. She currently takes Paxil prescribed by Dr. Dr Becerra . She is made aware that Paxil is a Category D medication in [place] and advised to call Dr Becerra to discuss medication management of her depression during . Discussed increased risks of depression during and and importance of reporting the development or worsening of symptoms should they occur. Patient denies any history of depression. Pt denies ever having any suicidal thoughts or tendencies or thoughts of hurting others. TKRN Family history of congenital heart defect 201703/16/2019 Overview: 07/27/2018 Pt. has two first first cousins born with a hole in heart. She has a first cousin with mental retardation. TKRN Tobacco use during , antepartum 018 09/19/2019 Overview: 07/27/2018Pt smokes 2 cigarettes a day. Discussed risks of smoking during . Advised pt to quit. TKRN History of drug abuse 07/27/2018 03/16/2019 Overview: 07/27/2018Patient has a history of polysubstance abuse. She states she has abused Adderal and has used Cocaine in the past. She denies any drug abuse for the past 3 years. States she has a sponsor, but does not attend any counseling or support groups. I have discussed the benefits of support groups. TKRN History of delivery, currently 07/27/2018 03/16/2019 Overview: 07/27/2018Patient has a history of delivery at 34 weeks with her 1st . She did 17P progesterone injections with subsequent and delivered at 39 weeks. TKRN Nausea and vomiting in 07/27/2018 03/16/2019 Overview: 07/27/2018Patient is complaining of nausea in . Denies vomiting. Advised patient to call/come in if she is unable to keep any food or fluids down in a 24-hour period.TKRN Patient requested diagnostic testing 07/27/2018 03/16/2019 Overview: 07/27/2018Patient desires nuchal ultrasound. Considering CF carrier screening testing. TKRN with uncertain dates, antepartum 07/2703/16/2019 Overview: 07/27/2018Patient states LMP 04/2018. History of irregular menses. Negative test 07/13/2018. Positive test 07/19/2018. TKRN Irritable bowel syndrome with both constipation and diarrhea 03/30/2018 06/27/2020 Adjustment disorder with mixed anxiety and depre ssed mood 09/14/2016 03/30/2018 Recurrent major depressive disorder, in partial remission 11/19/2015 06/27/2020 Rh negative state in antepartum period 5 03/16/2019 High risk due to history of la bor 06/26/2015 03/30/2018 Overview: Consult [facility] for 17-OH in - JV Tobacco use disorder 06/26/2015 10/20/2022 RUQ abdominal pain 11/21/2014 06/26/2015 Abdominal pain 07/14/2012 03/19/2015 Overview: BHCG quant NEG 07/12/12. Pt sent to ER for evulation Polycystic ovaries 06/27/2008 03/19/2015 Overview: Meets criteria - amenorrhea, DHEA-S elevated, other labs ok But hasn't had other clinical signs (obesity, acne, hair growth) SECONDARY AMENORRHEA 06/06/2008 03/19/2015 PANIC DISORDER WITHOUT AGORAPHOBIA 06/26/2015 documented as of this encounter (statuses as of 12/06/2022) [facility]09-[facility]-2022 History of Past illness Narrative* Problem Noted Date Resolved Date Abdominal pain affecting 06/29/2022 10/20/2022 Overview: - POD5 twin section at 33 weeks for PPROM - increased abdominal pain x2 days - constipated, first bowel movement last night then two in OB ED - given mylicon - pain greatly improved s/p bowel movement, diarrhea - instructed to hold colace and miralax until diarrhea resolved - given return precautions for increase in pain or heavy bleeding History of depression 07/27/2018 03/16/2019 Overview: 07/27/2018Pt has a history of depression/anxiety/panic attacks since 2006. She currently takes Paxil prescribed by Dr. Dr Becerra . She is made aware that Paxil is a Category D medication in [place] and advised to call Dr Becerra to discuss medication management of her depression during . Discussed increased risks of depression during and and importance of reporting the development or worsening of symptoms should they occur. Patient denies any history of depression. Pt denies ever having any suicidal thoughts or tendencies or thoughts of hurting others. TKRN Family history of congenital heart defect 201703/16/2019 Overview: 07/27/2018 Pt. has two first first cousins born with a hole in heart. She has a first cousin with mental retardation. TKRN Tobacco use during , antepartum 018 09/19/2019 Overview: 07/27/2018Pt smokes 2 cigarettes a day. Discussed risks of smoking during . Advised pt to quit. TKRN History of drug abuse 07/27/2018 03/16/2019 Overview: 07/27/2018Patient has a history of polysubstance abuse. She states she has abused Adderal and has used Cocaine in the past. She denies any drug abuse for the past 3 years. States she has a sponsor, but does not attend any counseling or support groups. I have discussed the benefits of support groups. TKRN History of delivery, currently 07/27/2018 03/16/2019 Overview: 07/27/2018Patient has a history of delivery at 34 weeks with her 1st . She did 17P progesterone injections with subsequent and delivered at 39 weeks. TKRN Nausea and vomiting in 07/27/2018 03/16/2019 Overview: 07/27/2018Patient is complaining of nausea in . Denies vomiting. Advised patient to call/come in if she is unable to keep any food or fluids down in a 24-hour period.TKRN Patient requested diagnostic testing 07/27/2018 03/16/2019 Overview: 07/27/2018Patient desires nuchal ultrasound. Considering CF carrier screening testing. TKRN with uncertain dates, antepartum 07/2703/16/2019 Overview: 07/27/2018Patient states LMP 04/2018. History of irregular menses. Negative test 07/13/2018. Positive test 07/19/2018. TKRN Irritable bowel syndrome with both constipation and diarrhea 03/30/2018 06/27/2020 Adjustment disorder with mixed anxiety and depre ssed mood 09/14/2016 03/30/2018 Recurrent major depressive disorder, in partial remission 11/19/2015 06/27/2020 Rh negative state in antepartum period 5 03/16/2019 High risk due to history of la bor 06/26/2015 03/30/2018 Overview: Consult [facility] for 17-OH in - JV Tobacco use disorder 06/26/2015 10/20/2022 RUQ abdominal pain 11/21/2014 06/26/2015 Abdominal pain 07/14/2012 03/19/2015 Overview: BHCG quant NEG 07/12/12. Pt sent to ER for evulation Polycystic ovaries 06/27/2008 03/19/2015 Overview: Meets criteria - amenorrhea, DHEA-S elevated, other labs ok But hasn't had other clinical signs (obesity, acne, hair growth) SECONDARY AMENORRHEA 06/06/2008 03/19/2015 PANIC DISORDER WITHOUT AGORAPHOBIA 06/26/2015 documented as of this encounter (statuses as of 12/21/2022) [facility]09[facility] History of Past illness Narrative* Problem Noted Date Resolved Date Abdominal pain affecting 06/29/2022 10/20/2022 Overview: - POD5 twin section at 33 weeks for PPROM - increased abdominal pain x2 days - constipated, first bowel movement last night then two in OB ED - given mylicon - pain greatly improved s/p bowel movement, diarrhea - instructed to hold colace and miralax until diarrhea resolved - given return precautions for increase in pain or heavy bleeding History of depression 07/27/2018 03/16/2019 Overview: 07/27/2018Pt has a history of depression/anxiety/panic attacks since 2006. She currently takes Paxil prescribed by Dr. Dr Becerra . She is made aware that Paxil is a Category D medication in [place] and advised to call Dr Becerra to discuss medication management of her depression during . Discussed increased risks of depression during and and importance of reporting the development or worsening of symptoms should they occur. Patient denies any history of depression. Pt denies ever having any suicidal thoughts or tendencies or thoughts of hurting others. TKRN Family history of congenital heart defect 201703/16/2019 Overview: 07/27/2018 Pt. has two first first cousins born with a hole in heart. She has a first cousin with mental retardation. TKRN Tobacco use during , antepartum 018 09/19/2019 Overview: 07/27/2018Pt smokes 2 cigarettes a day. Discussed risks of smoking during . Advised pt to quit. TKRN History of drug abuse 07/27/2018 03/16/2019 Overview: 07/27/2018Patient has a history of polysubstance abuse. She states she has abused Adderal and has used Cocaine in the past. She denies any drug abuse for the past 3 years. States she has a sponsor, but does not attend any counseling or support groups. I have discussed the benefits of support groups. TKRN History of delivery, currently 07/27/2018 03/16/2019 Overview: 07/27/2018Patient has a history of delivery at 34 weeks with her 1st . She did 17P progesterone injections with subsequent and delivered at 39 weeks. TKRN Nausea and vomiting in 07/27/2018 03/16/2019 Overview: 07/27/2018Patient is complaining of nausea in . Denies vomiting. Advised patient to call/come in if she is unable to keep any food or fluids down in a 24-hour period.TKRN Patient requested diagnostic testing 07/27/2018 03/16/2019 Overview: 07/27/2018Patient desires nuchal ultrasound. Considering CF carrier screening testing. TKRN with uncertain dates, antepartum 07/2703/16/2019 Overview: 07/27/2018Patient states LMP 04/2018. History of irregular menses. Negative test 07/13/2018. Positive test 07/19/2018. TKRN Irritable bowel syndrome with both constipation and diarrhea 03/30/2018 06/27/2020 Adjustment disorder with mixed anxiety and depre ssed mood 09/14/2016 03/30/2018 Recurrent major depressive disorder, in partial remission 11/19/2015 06/27/2020 Rh negative state in antepartum period 5 03/16/2019 High risk due to history of la bor 06/26/2015 03/30/2018 Overview: Consult [facility] for 17-OH in - JV Tobacco use disorder 06/26/2015 10/20/2022 RUQ abdominal pain 11/21/2014 06/26/2015 Abdominal pain 07/14/2012 03/19/2015 Overview: BHCG quant NEG 07/12/12. Pt sent to ER for evulation Polycystic ovaries 06/27/2008 03/19/2015 Overview: Meets criteria - amenorrhea, DHEA-S elevated, other labs ok But hasn't had other clinical signs (obesity, acne, hair growth) SECONDARY AMENORRHEA 06/06/2008 03/19/2015 PANIC DISORDER WITHOUT AGORAPHOBIA 06/26/2015 documented as of this encounter (statuses as of 12/24/2022) [facility]09[facility] History of Past illness Narrative* Problem Noted Date Resolved Date Abdominal pain affecting 06/29/2022 10/20/2022 Overview: - POD5 twin section at 33 weeks for PPROM - increased abdominal pain x2 days - constipated, first bowel movement last night then two in OB ED - given mylicon - pain greatly improved s/p bowel movement, diarrhea - instructed to hold colace and miralax until diarrhea resolved - given return precautions for increase in pain or heavy bleeding History of depression 07/27/2018 03/16/2019 Overview: 07/27/2018Pt has a history of depression/anxiety/panic attacks since 2006. She currently takes Paxil prescribed by Dr. Dr Becerra . She is made aware that Paxil is a Category D medication in [place] and advised to call Dr Becerra to discuss medication management of her depression during . Discussed increased risks of depression during and and importance of reporting the development or worsening of symptoms should they occur. Patient denies any history of depression. Pt denies ever having any suicidal thoughts or tendencies or thoughts of hurting others. TKRN Family history of congenital heart defect 201703/16/2019 Overview: 07/27/2018 Pt. has two first first cousins born with a hole in heart. She has a first cousin with mental retardation. TKRN Tobacco use during , antepartum 018 09/19/2019 Overview: 07/27/2018Pt smokes 2 cigarettes a day. Discussed risks of smoking during . Advised pt to quit. TKRN History of drug abuse 07/27/2018 03/16/2019 Overview: 07/27/2018Patient has a history of polysubstance abuse. She states she has abused Adderal and has used Cocaine in the past. She denies any drug abuse for the past 3 years. States she has a sponsor, but does not attend any counseling or support groups. I have discussed the benefits of support groups. TKRN History of delivery, currently 07/27/2018 03/16/2019 Overview: 07/27/2018Patient has a history of delivery at 34 weeks with her 1st . She did 17P progesterone injections with subsequent and delivered at 39 weeks. TKRN Nausea and vomiting in 07/27/2018 03/16/2019 Overview: 07/27/2018Patient is complaining of nausea in . Denies vomiting. Advised patient to call/come in if she is unable to keep any food or fluids down in a 24-hour period.TKRN Patient requested diagnostic testing 07/27/2018 03/16/2019 Overview: 07/27/2018Patient desires nuchal ultrasound. Considering CF carrier screening testing. TKRN with uncertain dates, antepartum 07/2703/16/2019 Overview: 07/27/2018Patient states LMP 04/2018. History of irregular menses. Negative test 07/13/2018. Positive test 07/19/2018. TKRN Irritable bowel syndrome with both constipation and diarrhea 03/30/2018 06/27/2020 Adjustment disorder with mixed anxiety and depre ssed mood 09/14/2016 03/30/2018 Recurrent major depressive disorder, in partial remission 11/19/2015 06/27/2020 Rh negative state in antepartum period 5 03/16/2019 High risk due to history of la bor 06/26/2015 03/30/2018 Overview: Consult [facility] for 17-OH in - JV Tobacco use disorder 06/26/2015 10/20/2022 RUQ abdominal pain 11/21/2014 06/26/2015 Abdominal pain 07/14/2012 03/19/2015 Overview: BHCG quant NEG 07/12/12. Pt sent to ER for evulation Polycystic ovaries 06/27/2008 03/19/2015 Overview: Meets criteria - amenorrhea, DHEA-S elevated, other labs ok But hasn't had other clinical signs (obesity, acne, hair growth) SECONDARY AMENORRHEA 06/06/2008 03/19/2015 PANIC DISORDER WITHOUT AGORAPHOBIA 06/26/2015 documented as of this encounter (statuses as of 12/27/2022) [facility] History of Past illness Narrative* Problem Noted Date Resolved Date Abdominal pain affecting 06/29/2022 10/20/2022 Overview: - POD5 twin section at 33 weeks for PPROM - increased abdominal pain x2 days - constipated, first bowel movement last night then two in OB ED - given mylicon - pain greatly improved s/p bowel movement, diarrhea - instructed to hold colace and miralax until diarrhea resolved - given return precautions for increase in pain or heavy bleeding History of depression 07/27/2018 03/16/2019 Overview: 07/27/2018Pt has a history of depression/anxiety/panic attacks since 2006. She currently takes Paxil prescribed by Dr. Dr Becerra . She is made aware that Paxil is a Category D medication in [place] and advised to call Dr Becerra to discuss medication management of her depression during . Discussed increased risks of depression during and and importance of reporting the development or worsening of symptoms should they occur. Patient denies any history of depression. Pt denies ever having any suicidal thoughts or tendencies or thoughts of hurting others. TKRN Family history of congenital heart defect 201703/16/2019 Overview: 07/27/2018 Pt. has two first first cousins born with a hole in heart. She has a first cousin with mental retardation. TKRN Tobacco use during , antepartum 018 09/19/2019 Overview: 07/27/2018Pt smokes 2 cigarettes a day. Discussed risks of smoking during . Advised pt to quit. TKRN History of drug abuse 07/27/2018 03/16/2019 Overview: 07/27/2018Patient has a history of polysubstance abuse. She states she has abused Adderal and has used Cocaine in the past. She denies any drug abuse for the past 3 years. States she has a sponsor, but does not attend any counseling or support groups. I have discussed the benefits of support groups. TKRN History of delivery, currently 07/27/2018 03/16/2019 Overview: 07/27/2018Patient has a history of delivery at 34 weeks with her 1st . She did 17P progesterone injections with subsequent and delivered at 39 weeks. TKRN Nausea and vomiting in 07/27/2018 03/16/2019 Overview: 07/27/2018Patient is complaining of nausea in . Denies vomiting. Advised patient to call/come in if she is unable to keep any food or fluids down in a 24-hour period.TKRN Patient requested diagnostic testing 07/27/2018 03/16/2019 Overview: 07/27/2018Patient desires nuchal ultrasound. Considering CF carrier screening testing. TKRN with uncertain dates, antepartum 07/2703/16/2019 Overview: 07/27/2018Patient states LMP 04/2018. History of irregular menses. Negative test 07/13/2018. Positive test 07/19/2018. TKRN Irritable bowel syndrome with both constipation and diarrhea 03/30/2018 06/27/2020 Adjustment disorder with mixed anxiety and depre ssed mood 09/14/2016 03/30/2018 Recurrent major depressive disorder, in partial remission 11/19/2015 06/27/2020 Rh negative state in antepartum period 5 03/16/2019 High risk due to history of la bor 06/26/2015 03/30/2018 Overview: Consult [facility] for 17-OH in - JV Tobacco use disorder 06/26/2015 10/20/2022 RUQ abdominal pain 11/21/2014 06/26/2015 Abdominal pain 07/14/2012 03/19/2015 Overview: BHCG quant NEG 07/12/12. Pt sent to ER for evulation Polycystic ovaries 06/27/2008 03/19/2015 Overview: Meets criteria - amenorrhea, DHEA-S elevated, other labs ok But hasn't had other clinical signs (obesity, acne, hair growth) SECONDARY AMENORRHEA 06/06/2008 03/19/2015 PANIC DISORDER WITHOUT AGORAPHOBIA 06/26/2015 documented as of this encounter (statuses as of 02/01/2023) [facility] History of Past illness Narrative* Problem Noted Date Resolved Date Abdominal pain affecting 06/29/2022 10/20/2022 Overview: - POD5 twin section at 33 weeks for PPROM - increased abdominal pain x2 days - constipated, first bowel movement last night then two in OB ED - given mylicon - pain greatly improved s/p bowel movement, diarrhea - instructed to hold colace and miralax until diarrhea resolved - given return precautions for increase in pain or heavy bleeding History of depression 07/27/2018 03/16/2019 Overview: 07/27/2018Pt has a history of depression/anxiety/panic attacks since 2006. She currently takes Paxil prescribed by Dr. Dr Becerra . She is made aware that Paxil is a Category D medication in [place] and advised to call Dr Becerra to discuss medication management of her depression during . Discussed increased risks of depression during and and importance of reporting the development or worsening of symptoms should they occur. Patient denies any history of depression. Pt denies ever having any suicidal thoughts or tendencies or thoughts of hurting others. TKRN Family history of congenital heart defect 201703/16/2019 Overview: 07/27/2018 Pt. has two first first cousins born with a hole in heart. She has a first cousin with mental retardation. TKRN Tobacco use during , antepartum 018 09/19/2019 Overview: 07/27/2018Pt smokes 2 cigarettes a day. Discussed risks of smoking during . Advised pt to quit. TKRN History of drug abuse 07/27/2018 03/16/2019 Overview: 07/27/2018Patient has a history of polysubstance abuse. She states she has abused Adderal and has used Cocaine in the past. She denies any drug abuse for the past 3 years. States she has a sponsor, but does not attend any counseling or support groups. I have discussed the benefits of support groups. TKRN History of delivery, currently 07/27/2018 03/16/2019 Overview: 07/27/2018Patient has a history of delivery at 34 weeks with her 1st . She did 17P progesterone injections with subsequent and delivered at 39 weeks. TKRN Nausea and vomiting in 07/27/2018 03/16/2019 Overview: 07/27/2018Patient is complaining of nausea in . Denies vomiting. Advised patient to call/come in if she is unable to keep any food or fluids down in a 24-hour period.TKRN Patient requested diagnostic testing 07/27/2018 03/16/2019 Overview: 07/27/2018Patient desires nuchal ultrasound. Considering CF carrier screening testing. TKRN with uncertain dates, antepartum 07/2703/16/2019 Overview: 07/27/2018Patient states LMP 04/2018. History of irregular menses. Negative test 07/13/2018. Positive test 07/19/2018. TKRN Irritable bowel syndrome with both constipation and diarrhea 03/30/2018 06/27/2020 Adjustment disorder with mixed anxiety and depre ssed mood 09/14/2016 03/30/2018 Recurrent major depressive disorder, in partial remission 11/19/2015 06/27/2020 Rh negative state in antepartum period 5 03/16/2019 High risk due to history of la bor 06/26/2015 03/30/2018 Overview: Consult [facility] for 17-OH in - JV Tobacco use disorder 06/26/2015 10/20/2022 RUQ abdominal pain 11/21/2014 06/26/2015 Abdominal pain 07/14/2012 03/19/2015 Overview: BHCG quant NEG 07/12/12. Pt sent to ER for evulation Polycystic ovaries 06/27/2008 03/19/2015 Overview: Meets criteria - amenorrhea, DHEA-S elevated, other labs ok But hasn't had other clinical signs (obesity, acne, hair growth) SECONDARY AMENORRHEA 06/06/2008 03/19/2015 PANIC DISORDER WITHOUT AGORAPHOBIA 06/26/2015 documented as of this encounter (statuses as of 02/02/2023) [facility] History of Past illness Narrative* Problem Noted Date Resolved Date Abdominal pain affecting 06/29/2022 10/20/2022 Overview: - POD5 twin section at 33 weeks for PPROM - increased abdominal pain x2 days - constipated, first bowel movement last night then two in OB ED - given mylicon - pain greatly improved s/p bowel movement, diarrhea - instructed to hold colace and miralax until diarrhea resolved - given return precautions for increase in pain or heavy bleeding History of depression 07/27/2018 03/16/2019 Overview: 07/27/2018Pt has a history of depression/anxiety/panic attacks since 2006. She currently takes Paxil prescribed by Dr. Dr Becerra . She is made aware that Paxil is a Category D medication in [place] and advised to call Dr Becerra to discuss medication management of her depression during . Discussed increased risks of depression during and and importance of reporting the development or worsening of symptoms should they occur. Patient denies any history of depression. Pt denies ever having any suicidal thoughts or tendencies or thoughts of hurting others. TKRN Family history of congenital heart defect 201703/16/2019 Overview: 07/27/2018 Pt. has two first first cousins born with a hole in heart. She has a first cousin with mental retardation. TKRN Tobacco use during , antepartum 018 09/19/2019 Overview: 07/27/2018Pt smokes 2 cigarettes a day. Discussed risks of smoking during . Advised pt to quit. TKRN History of drug abuse 07/27/2018 03/16/2019 Overview: 07/27/2018Patient has a history of polysubstance abuse. She states she has abused Adderal and has used Cocaine in the past. She denies any drug abuse for the past 3 years. States she has a sponsor, but does not attend any counseling or support groups. I have discussed the benefits of support groups. TKRN History of delivery, currently 07/27/2018 03/16/2019 Overview: 07/27/2018Patient has a history of delivery at 34 weeks with her 1st . She did 17P progesterone injections with subsequent and delivered at 39 weeks. TKRN Nausea and vomiting in 07/27/2018 03/16/2019 Overview: 07/27/2018Patient is complaining of nausea in . Denies vomiting. Advised patient to call/come in if she is unable to keep any food or fluids down in a 24-hour period.TKRN Patient requested diagnostic testing 07/27/2018 03/16/2019 Overview: 07/27/2018Patient desires nuchal ultrasound. Considering CF carrier screening testing. TKRN with uncertain dates, antepartum 07/2703/16/2019 Overview: 07/27/2018Patient states LMP 04/2018. History of irregular menses. Negative test 07/13/2018. Positive test 07/19/2018. TKRN Irritable bowel syndrome with both constipation and diarrhea 03/30/2018 06/27/2020 Adjustment disorder with mixed anxiety and depre ssed mood 09/14/2016 03/30/2018 Recurrent major depressive disorder, in partial remission 11/19/2015 06/27/2020 Rh negative state in antepartum period 5 03/16/2019 High risk due to history of la bor 06/26/2015 03/30/2018 Overview: Consult [facility] for 17-OH in - JV Tobacco use disorder 06/26/2015 10/20/2022 RUQ abdominal pain 11/21/2014 06/26/2015 Abdominal pain 07/14/2012 03/19/2015 Overview: BHCG quant NEG 07/12/12. Pt sent to ER for evulation Polycystic ovaries 06/27/2008 03/19/2015 Overview: Meets criteria - amenorrhea, DHEA-S elevated, other labs ok But hasn't had other clinical signs (obesity, acne, hair growth) SECONDARY AMENORRHEA 06/06/2008 03/19/2015 PANIC DISORDER WITHOUT AGORAPHOBIA 06/26/2015 documented as of this encounter (statuses as of 02/07/2023) [facility] History of Past illness Narrative* Problem Noted Date Resolved Date Abdominal pain affecting 06/29/2022 10/20/2022 Overview: - POD5 twin section at 33 weeks for PPROM - increased abdominal pain x2 days - constipated, first bowel movement last night then two in OB ED - given mylicon - pain greatly improved s/p bowel movement, diarrhea - instructed to hold colace and miralax until diarrhea resolved - given return precautions for increase in pain or heavy bleeding History of depression 07/27/2018 03/16/2019 Overview: 07/27/2018Pt has a history of depression/anxiety/panic attacks since 2006. She currently takes Paxil prescribed by Dr. Dr Becerra . She is made aware that Paxil is a Category D medication in [place] and advised to call Dr Becerra to discuss medication management of her depression during . Discussed increased risks of depression during and and importance of reporting the development or worsening of symptoms should they occur. Patient denies any history of depression. Pt denies ever having any suicidal thoughts or tendencies or thoughts of hurting others. TKRN Family history of congenital heart defect 201703/16/2019 Overview: 07/27/2018 Pt. has two first first cousins born with a hole in heart. She has a first cousin with mental retardation. TKRN Tobacco use during , antepartum 018 09/19/2019 Overview: 07/27/2018Pt smokes 2 cigarettes a day. Discussed risks of smoking during . Advised pt to quit. TKRN History of drug abuse 07/27/2018 03/16/2019 Overview: 07/27/2018Patient has a history of polysubstance abuse. She states she has abused Adderal and has used Cocaine in the past. She denies any drug abuse for the past 3 years. States she has a sponsor, but does not attend any counseling or support groups. I have discussed the benefits of support groups. TKRN History of delivery, currently 07/27/2018 03/16/2019 Overview: 07/27/2018Patient has a history of delivery at 34 weeks with her 1st . She did 17P progesterone injections with subsequent and delivered at 39 weeks. TKRN Nausea and vomiting in 07/27/2018 03/16/2019 Overview: 07/27/2018Patient is complaining of nausea in . Denies vomiting. Advised patient to call/come in if she is unable to keep any food or fluids down in a 24-hour period.TKRN Patient requested diagnostic testing 07/27/2018 03/16/2019 Overview: 07/27/2018Patient desires nuchal ultrasound. Considering CF carrier screening testing. TKRN with uncertain dates, antepartum 07/2703/16/2019 Overview: 07/27/2018Patient states LMP 04/2018. History of irregular menses. Negative test 07/13/2018. Positive test 07/19/2018. TKRN Irritable bowel syndrome with both constipation and diarrhea 03/30/2018 06/27/2020 Adjustment disorder with mixed anxiety and depre ssed mood 09/14/2016 03/30/2018 Recurrent major depressive disorder, in partial remission 11/19/2015 06/27/2020 Rh negative state in antepartum period 5 03/16/2019 High risk due to history of la bor 06/26/2015 03/30/2018 Overview: Consult [facility] for 17-OH in - JV Tobacco use disorder 06/26/2015 10/20/2022 RUQ abdominal pain 11/21/2014 06/26/2015 Abdominal pain 07/14/2012 03/19/2015 Overview: BHCG quant NEG 07/12/12. Pt sent to ER for evulation Polycystic ovaries 06/27/2008 03/19/2015 Overview: Meets criteria - amenorrhea, DHEA-S elevated, other labs ok But hasn't had other clinical signs (obesity, acne, hair growth) SECONDARY AMENORRHEA 06/06/2008 03/19/2015 PANIC DISORDER WITHOUT AGORAPHOBIA 06/26/2015 documented as of this encounter (statuses as of 02/08/2023) [facility]09[facility] History of Past illness Narrative* Problem Noted Date Resolved Date Abdominal pain affecting 06/29/2022 10/20/2022 Overview: - POD5 twin section at 33 weeks for PPROM - increased abdominal pain x2 days - constipated, first bowel movement last night then two in OB ED - given mylicon - pain greatly improved s/p bowel movement, diarrhea - instructed to hold colace and miralax until diarrhea resolved - given return precautions for increase in pain or heavy bleeding History of depression 07/27/2018 03/16/2019 Overview: 07/27/2018Pt has a history of depression/anxiety/panic attacks since 2005. She currently takes Paxil prescribed by Dr. Dr Becerra . She is made aware that Paxil is a Category D medication in [place] and advised to call Dr Becerra to discuss medication management of her depression during . Discussed increased risks of depression during and and importance of reporting the development or worsening of symptoms should they occur. Patient denies any history of depression. Pt denies ever having any suicidal thoughts or tendencies or thoughts of hurting others. TKRN Family history of congenital heart defect 201703/16/2019 Overview: 07/27/2018 Pt. has two first first cousins born with a hole in heart. She has a first cousin with mental retardation. TKRN Tobacco use during , antepartum 018 09/19/2019 Overview: 07/27/2018Pt smokes 2 cigarettes a day. Discussed risks of smoking during . Advised pt to quit. TKRN History of drug abuse 07/27/2018 03/16/2019 Overview: 07/27/2018Patient has a history of polysubstance abuse. She states she has abused Adderal and has used Cocaine in the past. She denies any drug abuse for the past 3 years. States she has a sponsor, but does not attend any counseling or support groups. I have discussed the benefits of support groups. TKRN History of delivery, currently 07/27/2018 03/16/2019 Overview: 07/27/2018Patient has a history of delivery at 34 weeks with her 1st . She did 17P progesterone injections with subsequent and delivered at 39 weeks. TKRN Nausea and vomiting in 07/27/2018 03/16/2019 Overview: 07/27/2018Patient is complaining of nausea in . Denies vomiting. Advised patient to call/come in if she is unable to keep any food or fluids down in a 24-hour period.TKRN Patient requested diagnostic testing 07/27/2018 03/16/2019 Overview: 07/27/2018Patient desires nuchal ultrasound. Considering CF carrier screening testing. TKRN with uncertain dates, antepartum 07/2703/16/2019 Overview: 07/27/2018Patient states LMP 04/2018. History of irregular menses. Negative test 07/13/2018. Positive test 07/19/2018. TKRN Irritable bowel syndrome with both constipation and diarrhea 03/30/2018 06/27/2020 Adjustment disorder with mixed anxiety and depre ssed mood 09/14/2016 03/30/2018 Recurrent major depressive disorder, in partial remission 11/19/2015 06/27/2020 Rh negative state in antepartum period 5 03/16/2019 High risk due to history of la bor 06/26/2015 03/30/2018 Overview: Consult [facility] for 17-OH in - JV Tobacco use disorder 06/26/2015 10/20/2022 RUQ abdominal pain 11/21/2014 06/26/2015 Abdominal pain 07/14/2012 03/19/2015 Overview: BHCG quant NEG 07/12/12. Pt sent to ER for evulation Polycystic ovaries 06/27/2008 03/19/2015 Overview: Meets criteria - amenorrhea, DHEA-S elevated, other labs ok But hasn't had other clinical signs (obesity, acne, hair growth) SECONDARY AMENORRHEA 06/06/2008 03/19/2015 PANIC DISORDER WITHOUT AGORAPHOBIA 06/26/2015 documented as of this encounter (statuses as of 02/09/2023) [facility]09[facility] History of Past illness Narrative* Problem Noted Date Resolved Date Abdominal pain affecting 06/29/2022 10/20/2022 Overview: - POD5 twin section at 33 weeks for PPROM - increased abdominal pain x2 days - constipated, first bowel movement last night then two in OB ED - given mylicon - pain greatly improved s/p bowel movement, diarrhea - instructed to hold colace and miralax until diarrhea resolved - given return precautions for increase in pain or heavy bleeding History of depression 07/27/2018 03/16/2019 Overview: 07/27/2018Pt has a history of depression/anxiety/panic attacks since 2005. She currently takes Paxil prescribed by Dr. Dr Becerra . She is made aware that Paxil is a Category D medication in [place] and advised to call Dr Becerra to discuss medication management of her depression during . Discussed increased risks of depression during and and importance of reporting the development or worsening of symptoms should they occur. Patient denies any history of depression. Pt denies ever having any suicidal thoughts or tendencies or thoughts of hurting others. TKRN Family history of congenital heart defect 201703/16/2019 Overview: 07/27/2018 Pt. has two first first cousins born with a hole in heart. She has a first cousin with mental retardation. TKRN Tobacco use during , antepartum 018 09/19/2019 Overview: 07/27/2018Pt smokes 2 cigarettes a day. Discussed risks of smoking during . Advised pt to quit. TKRN History of drug abuse 07/27/2018 03/16/2019 Overview: 07/27/2018Patient has a history of polysubstance abuse. She states she has abused Adderal and has used Cocaine in the past. She denies any drug abuse for the past 3 years. States she has a sponsor, but does not attend any counseling or support groups. I have discussed the benefits of support groups. TKRN History of delivery, currently 07/27/2018 03/16/2019 Overview: 07/27/2018Patient has a history of delivery at 34 weeks with her 1st . She did 17P progesterone injections with subsequent and delivered at 39 weeks. TKRN Nausea and vomiting in 07/27/2018 03/16/2019 Overview: 07/27/2018Patient is complaining of nausea in . Denies vomiting. Advised patient to call/come in if she is unable to keep any food or fluids down in a 24-hour period.TKRN Patient requested diagnostic testing 07/27/2018 03/16/2019 Overview: 07/27/2018Patient desires nuchal ultrasound. Considering CF carrier screening testing. TKRN with uncertain dates, antepartum 07/2703/16/2019 Overview: 07/27/2018Patient states LMP 04/2018. History of irregular menses. Negative test 07/13/2018. Positive test 07/19/2018. TKRN Irritable bowel syndrome with both constipation and diarrhea 03/30/2018 06/27/2020 Adjustment disorder with mixed anxiety and depre ssed mood 09/14/2016 03/30/2018 Recurrent major depressive disorder, in partial remission 11/19/2015 06/27/2020 Rh negative state in antepartum period 5 03/16/2019 High risk due to history of la bor 06/26/2015 03/30/2018 Overview: Consult [facility] for 17-OH in - JV Tobacco use disorder 06/26/2015 10/20/2022 RUQ abdominal pain 11/21/2014 06/26/2015 Abdominal pain 07/14/2012 03/19/2015 Overview: BHCG quant NEG 07/12/12. Pt sent to ER for evulation Polycystic ovaries 06/27/2008 03/19/2015 Overview: Meets criteria - amenorrhea, DHEA-S elevated, other labs ok But hasn't had other clinical signs (obesity, acne, hair growth) SECONDARY AMENORRHEA 06/06/2008 03/19/2015 PANIC DISORDER WITHOUT AGORAPHOBIA 06/26/2015 documented as of this encounter (statuses as of 02/26/2023) [facility] History of Past illness Narrative* Problem Noted Date Resolved Date Abdominal pain affecting 06/29/2022 10/20/2022 Overview: - POD5 twin section at 33 weeks for PPROM - increased abdominal pain x2 days - constipated, first bowel movement last night then two in OB ED - given mylicon - pain greatly improved s/p bowel movement, diarrhea - instructed to hold colace and miralax until diarrhea resolved - given return precautions for increase in pain or heavy bleeding History of depression 07/27/2018 03/16/2019 Overview: 07/27/2018Pt has a history of depression/anxiety/panic attacks since 2006. She currently takes Paxil prescribed by Dr. Dr Becerra . She is made aware that Paxil is a Category D medication in [place] and advised to call Dr Becerra to discuss medication management of her depression during . Discussed increased risks of depression during and and importance of reporting the development or worsening of symptoms should they occur. Patient denies any history of depression. Pt denies ever having any suicidal thoughts or tendencies or thoughts of hurting others. TKRN Family history of congenital heart defect 201703/16/2019 Overview: 07/27/2018 Pt. has two first first cousins born with a hole in heart. She has a first cousin with mental retardation. TKRN Tobacco use during , antepartum 018 09/19/2019 Overview: 07/27/2018Pt smokes 2 cigarettes a day. Discussed risks of smoking during . Advised pt to quit. TKRN History of drug abuse 07/27/2018 03/16/2019 Overview: 07/27/2018Patient has a history of polysubstance abuse. She states she has abused Adderal and has used Cocaine in the past. She denies any drug abuse for the past 3 years. States she has a sponsor, but does not attend any counseling or support groups. I have discussed the benefits of support groups. TKRN History of delivery, currently 07/27/2018 03/16/2019 Overview: 07/27/2018Patient has a history of delivery at 34 weeks with her 1st . She did 17P progesterone injections with subsequent and delivered at 39 weeks. TKRN Nausea and vomiting in 07/27/2018 03/16/2019 Overview: 07/27/2018Patient is complaining of nausea in . Denies vomiting. Advised patient to call/come in if she is unable to keep any food or fluids down in a 24-hour period.TKRN Patient requested diagnostic testing 07/27/2018 03/16/2019 Overview: 07/27/2018Patient desires nuchal ultrasound. Considering CF carrier screening testing. TKRN with uncertain dates, antepartum 07/2703/16/2019 Overview: 07/27/2018Patient states LMP 04/2018. History of irregular menses. Negative test 07/13/2018. Positive test 07/19/2018. TKRN Irritable bowel syndrome with both constipation and diarrhea 03/30/2018 06/27/2020 Adjustment disorder with mixed anxiety and depre ssed mood 09/14/2016 03/30/2018 Recurrent major depressive disorder, in partial remission 11/19/2015 06/27/2020 Rh negative state in antepartum period 5 03/16/2019 High risk due to history of la bor 06/26/2015 03/30/2018 Overview: Consult [facility] for 17-OH in - JV Tobacco use disorder 06/26/2015 10/20/2022 RUQ abdominal pain 11/21/2014 06/26/2015 Abdominal pain 07/14/2012 03/19/2015 Overview: BHCG quant NEG 07/12/12. Pt sent to ER for evulation Polycystic ovaries 06/27/2008 03/19/2015 Overview: Meets criteria - amenorrhea, DHEA-S elevated, other labs ok But hasn't had other clinical signs (obesity, acne, hair growth) SECONDARY AMENORRHEA 06/06/2008 03/19/2015 PANIC DISORDER WITHOUT AGORAPHOBIA 06/26/2015 documented as of this encounter (statuses as of 03/03/2023) [facility] History of Past illness Narrative* Problem Noted Date Resolved Date Abdominal pain affecting 06/29/2022 10/20/2022 Overview: - POD5 twin section at 33 weeks for PPROM - increased abdominal pain x2 days - constipated, first bowel movement last night then two in OB ED - given mylicon - pain greatly improved s/p bowel movement, diarrhea - instructed to hold colace and miralax until diarrhea resolved - given return precautions for increase in pain or heavy bleeding History of depression 07/27/2018 03/16/2019 Overview: 07/27/2018Pt has a history of depression/anxiety/panic attacks since 2006. She currently takes Paxil prescribed by Dr. Dr Becerra . She is made aware that Paxil is a Category D medication in [place] and advised to call Dr Becerra to discuss medication management of her depression during . Discussed increased risks of depression during and and importance of reporting the development or worsening of symptoms should they occur. Patient denies any history of depression. Pt denies ever having any suicidal thoughts or tendencies or thoughts of hurting others. TKRN Family history of congenital heart defect 201703/16/2019 Overview: 07/27/2018 Pt. has two first first cousins born with a hole in heart. She has a first cousin with mental retardation. TKRN Tobacco use during , antepartum 018 09/19/2019 Overview: 07/27/2018Pt smokes 2 cigarettes a day. Discussed risks of smoking during . Advised pt to quit. TKRN History of drug abuse 07/27/2018 03/16/2019 Overview: 07/27/2018Patient has a history of polysubstance abuse. She states she has abused Adderal and has used Cocaine in the past. She denies any drug abuse for the past 3 years. States she has a sponsor, but does not attend any counseling or support groups. I have discussed the benefits of support groups. TKRN History of delivery, currently 07/27/2018 03/16/2019 Overview: 07/27/2018Patient has a history of delivery at 34 weeks with her 1st . She did 17P progesterone injections with subsequent and delivered at 39 weeks. TKRN Nausea and vomiting in 07/27/2018 03/16/2019 Overview: 07/27/2018Patient is complaining of nausea in . Denies vomiting. Advised patient to call/come in if she is unable to keep any food or fluids down in a 24-hour period.TKRN Patient requested diagnostic testing 07/27/2018 03/16/2019 Overview: 07/27/2018Patient desires nuchal ultrasound. Considering CF carrier screening testing. TKRN with uncertain dates, antepartum 07/2703/16/2019 Overview: 07/27/2018Patient states LMP 04/2018. History of irregular menses. Negative test 07/13/2018. Positive test 07/19/2018. TKRN Irritable bowel syndrome with both constipation and diarrhea 03/30/2018 06/27/2020 Adjustment disorder with mixed anxiety and depre ssed mood 09/14/2016 03/30/2018 Recurrent major depressive disorder, in partial remission 11/19/2015 06/27/2020 Rh negative state in antepartum period 5 03/16/2019 High risk due to history of la bor 06/26/2015 03/30/2018 Overview: Consult [facility] for 17-OH in - JV Tobacco use disorder 06/26/2015 10/20/2022 RUQ abdominal pain 11/21/2014 06/26/2015 Abdominal pain 07/14/2012 03/19/2015 Overview: BHCG quant NEG 07/12/12. Pt sent to ER for evulation Polycystic ovaries 06/27/2008 03/19/2015 Overview: Meets criteria - amenorrhea, DHEA-S elevated, other labs ok But hasn't had other clinical signs (obesity, acne, hair growth) SECONDARY AMENORRHEA 06/06/2008 03/19/2015 PANIC DISORDER WITHOUT AGORAPHOBIA 06/26/2015 documented as of this encounter (statuses as of 03/05/2023) [facility] History of Past illness Narrative* Problem Noted Date Resolved Date Abdominal pain affecting 06/29/2022 10/20/2022 Overview: - POD5 twin section at 33 weeks for PPROM - increased abdominal pain x2 days - constipated, first bowel movement last night then two in OB ED - given mylicon - pain greatly improved s/p bowel movement, diarrhea - instructed to hold colace and miralax until diarrhea resolved - given return precautions for increase in pain or heavy bleeding History of depression 07/27/2018 03/16/2019 Overview: 07/27/2018Pt has a history of depression/anxiety/panic attacks since 2006. She currently takes Paxil prescribed by Dr. Dr Becerra . She is made aware that Paxil is a Category D medication in [place] and advised to call Dr Becerra to discuss medication management of her depression during . Discussed increased risks of depression during and and importance of reporting the development or worsening of symptoms should they occur. Patient denies any history of depression. Pt denies ever having any suicidal thoughts or tendencies or thoughts of hurting others. TKRN Family history of congenital heart defect 201703/16/2019 Overview: 07/27/2018 Pt. has two first first cousins born with a hole in heart. She has a first cousin with mental retardation. TKRN Tobacco use during , antepartum 018 09/19/2019 Overview: 07/27/2018Pt smokes 2 cigarettes a day. Discussed risks of smoking during . Advised pt to quit. TKRN History of drug abuse 07/27/2018 03/16/2019 Overview: 07/27/2018Patient has a history of polysubstance abuse. She states she has abused Adderal and has used Cocaine in the past. She denies any drug abuse for the past 3 years. States she has a sponsor, but does not attend any counseling or support groups. I have discussed the benefits of support groups. TKRN History of delivery, currently 07/27/2018 03/16/2019 Overview: 07/27/2018Patient has a history of delivery at 34 weeks with her 1st . She did 17P progesterone injections with subsequent and delivered at 39 weeks. TKRN Nausea and vomiting in 07/27/2018 03/16/2019 Overview: 07/27/2018Patient is complaining of nausea in . Denies vomiting. Advised patient to call/come in if she is unable to keep any food or fluids down in a 24-hour period.TKRN Patient requested diagnostic testing 07/27/2018 03/16/2019 Overview: 07/27/2018Patient desires nuchal ultrasound. Considering CF carrier screening testing. TKRN with uncertain dates, antepartum 07/2703/16/2019 Overview: 07/27/2018Patient states LMP 04/2018. History of irregular menses. Negative test 07/13/2018. Positive test 07/19/2018. TKRN Irritable bowel syndrome with both constipation and diarrhea 03/30/2018 06/27/2020 Adjustment disorder with mixed anxiety and depre ssed mood 09/14/2016 03/30/2018 Recurrent major depressive disorder, in partial remission 11/19/2015 06/27/2020 Rh negative state in antepartum period 5 03/16/2019 High risk due to history of la bor 06/26/2015 03/30/2018 Overview: Consult [facility] for 17-OH in - JV Tobacco use disorder 06/26/2015 10/20/2022 RUQ abdominal pain 11/21/2014 06/26/2015 Abdominal pain 07/14/2012 03/19/2015 Overview: BHCG quant NEG 07/12/12. Pt sent to ER for evulation Polycystic ovaries 06/27/2008 03/19/2015 Overview: Meets criteria - amenorrhea, DHEA-S elevated, other labs ok But hasn't had other clinical signs (obesity, acne, hair growth) SECONDARY AMENORRHEA 06/06/2008 03/19/2015 PANIC DISORDER WITHOUT AGORAPHOBIA 06/26/2015 documented as of this encounter (statuses as of 03/08/2023) [facility] History of Past illness Narrative* Problem Noted Date Resolved Date Abdominal pain affecting 06/29/2022 10/20/2022 Overview: - POD5 twin section at 33 weeks for PPROM - increased abdominal pain x2 days - constipated, first bowel movement last night then two in OB ED - given mylicon - pain greatly improved s/p bowel movement, diarrhea - instructed to hold colace and miralax until diarrhea resolved - given return precautions for increase in pain or heavy bleeding History of depression 07/27/2018 03/16/2019 Overview: 07/27/2018Pt has a history of depression/anxiety/panic attacks since 2006. She currently takes Paxil prescribed by Dr. Dr Becerra . She is made aware that Paxil is a Category D medication in [place] and advised to call Dr Becerra to discuss medication management of her depression during . Discussed increased risks of depression during and and importance of reporting the development or worsening of symptoms should they occur. Patient denies any history of depression. Pt denies ever having any suicidal thoughts or tendencies or thoughts of hurting others. TKRN Family history of congenital heart defect 201703/16/2019 Overview: 07/27/2018 Pt. has two first first cousins born with a hole in heart. She has a first cousin with mental retardation. TKRN Tobacco use during , antepartum 018 09/19/2019 Overview: 07/27/2018Pt smokes 2 cigarettes a day. Discussed risks of smoking during . Advised pt to quit. TKRN History of drug abuse 07/27/2018 03/16/2019 Overview: 07/27/2018Patient has a history of polysubstance abuse. She states she has abused Adderal and has used Cocaine in the past. She denies any drug abuse for the past 3 years. States she has a sponsor, but does not attend any counseling or support groups. I have discussed the benefits of support groups. TKRN History of delivery, currently 07/27/2018 03/16/2019 Overview: 07/27/2018Patient has a history of delivery at 34 weeks with her 1st . She did 17P progesterone injections with subsequent and delivered at 39 weeks. TKRN Nausea and vomiting in 07/27/2018 03/16/2019 Overview: 07/27/2018Patient is complaining of nausea in . Denies vomiting. Advised patient to call/come in if she is unable to keep any food or fluids down in a 24-hour period.TKRN Patient requested diagnostic testing 07/27/2018 03/16/2019 Overview: 07/27/2018Patient desires nuchal ultrasound. Considering CF carrier screening testing. TKRN with uncertain dates, antepartum 07/2703/16/2019 Overview: 07/27/2018Patient states LMP 04/2018. History of irregular menses. Negative test 07/13/2018. Positive test 07/19/2018. TKRN Irritable bowel syndrome with both constipation and diarrhea 03/30/2018 06/27/2020 Adjustment disorder with mixed anxiety and depre ssed mood 09/14/2016 03/30/2018 Recurrent major depressive disorder, in partial remission 11/19/2015 06/27/2020 Rh negative state in antepartum period 5 03/16/2019 High risk due to history of [place] bor 06/26/2015 03/30/2018 Overview: Consult [facility] for 17-OH in - JV Tobacco use disorder 06/26/2015 10/20/2022 RUQ abdominal pain 11/21/2014 06/26/2015 Abdominal pain 07/14/2012 03/19/2015 Overview: BHCG quant NEG 07/12/12. Pt sent to ER for evulation Polycystic ovaries 06/27/2008 03/19/2015 Overview: Meets criteria - amenorrhea, DHEA-S elevated, other labs ok But hasn't had other clinical signs (obesity, acne, hair growth) SECONDARY AMENORRHEA 06/06/2008 03/19/2015 PANIC DISORDER WITHOUT AGORAPHOBIA 06/26/2015 documented as of this encounter (statuses as of 03/08/2023) [facility]09[facility] History of Past illness Narrative* Problem Noted Date Diagnosed Date Resolved Date Abdominal pain affecting 06/29/2022 10/20/2022 Overview: - POD5 twin section at 33 weeks for PPROM - increased abdominal pain x2 days - constipated, first bowel movement last night then two in OB ED - given mylicon - pain greatly improved s/p bowel movement, diarrhea - instructed to hold colace and miralax until diarrhea resolved - given return precautions for increase in pain or heavy bleeding History of depression 07/27/20182018 Overview: 07/27/2018Pt has a history of depression/anxiety/panic attacks since 2006. She currently takes Paxil prescribed by Dr. Dr Becerra . She is made aware that Paxil is a Category D medication in [place] and advised to call Dr Becerra to discuss medication management of her depression during . Discussed increased risks of depression during and and importance of reporting the development or worsening of symptoms should they occur. Patient denies any history of depression. Pt denies ever having any suicidal thoughts or tendencies or thoughts of hurting others. TKRN Family history of congenital heart defect 07/27/2018 03/16/2019 Overview: 07/27/2018 Pt. has two first first cousins born with a hole in heart. She has a first cousin with mental retardation. TKRN Tobacco use during , antepartum 07/27/2018 09/19/2019 Overview: 07/27/2018Pt smokes 2 cigarettes a day. Discussed risks of smoking during . Advised pt to quit. TKRN History of drug abuse 07/27/20182018 Overview: 07/27/2018Patient has a history of polysubstance abuse. She states she has abused Adderal and has used Cocaine in the past. She denies any drug abuse for the past 3 years. States she has a sponsor, but does not attend any counseling or support groups. I have discussed the benefits of support groups. TKRN History of delivery, currently 07/27/2018 03/16/2019 Overview: 07/27/2018Patient has a history of delivery at 34 weeks with her 1st . She did 17P progesterone injections with subsequent and delivered at 39 weeks. TKRN Nausea and vomiting in 07/27/2018 03/16/2019 Overview: 07/27/2018Patient is complaining of nausea in . Denies vomiting. Advised patient to call/come in if she is unable to keep any food or fluids down in a 24-hour period.TKRN Patient requested diagnostic testing 07/27/2018 03/16/2019 Overview: 07/27/2018Patient desires nuchal ultrasound. Considering CF carrier screening testing. TKRN with uncertain dates, antepartum 07/27/2018 03/16/2019 Overview: 07/27/2018Patient states LMP 04/2018. History of irregular menses. Negative test 07/13/2018. Positive test 07/19/2018. TKRN Irritable bowel syndrome wit h both constipation and diarrhea 03/30/2018 06/27/2020 Adjustment disorder with mix ed anxiety and depressed mood 09/14/2016 03/30/2018 Recurrent major depressive d isorder, in partial remission 11/19/2015 06/27/2020 Rh negative state in antepartum period 06/27/2015 03/16/2019 High risk due to h istory of labor 06/26/2015 03/30/2018 Overview: Consult [facility] for 17-OH in - JV Tobacco use disorder 06/26/2015 023 RUQ abdominal pain 11/21/2014 5 Abdominal pain 07/14/2012 03/19/2015 Overview: BHCG quant NEG 07/12/12. Pt sent to ER for evulation Polycystic ovaries 06/27/2008 5 Overview: Meets criteria - amenorrhea, DHEA-S elevated, other labs ok But hasn't had other clinical signs (obesity, acne, hair growth) SECONDARY AMENORRHEA 06/06/2008 015 PANIC DISORDER WITHOUT AGORAPHOBIA 06/26/2015 documented as of this encounter (statuses as of 05/09/2023) [facility] History of Past illness Narrative* Problem Noted Date Diagnosed Date Resolved Date Abdominal pain affecting 06/29/2022 10/20/2022 Overview: - POD5 twin section at 33 weeks for PPROM - increased abdominal pain x2 days - constipated, first bowel movement last night then two in OB ED - given mylicon - pain greatly improved s/p bowel movement, diarrhea - instructed to hold colace and miralax until diarrhea resolved - given return precautions for increase in pain or heavy bleeding History of depression 07/27/20182018 Overview: 07/27/2018Pt has a history of depression/anxiety/panic attacks since 2006. She currently takes Paxil prescribed by Dr. Dr Becerra . She is made aware that Paxil is a Category D medication in [place] and advised to call Dr Becerra to discuss medication management of her depression during . Discussed increased risks of depression during and and importance of reporting the development or worsening of symptoms should they occur. Patient denies any history of depression. Pt denies ever having any suicidal thoughts or tendencies or thoughts of hurting others. TKRN Family history of congenital heart defect 07/27/2018 03/16/2019 Overview: 07/27/2018 Pt. has two first first cousins born with a hole in heart. She has a first cousin with mental retardation. TKRN Tobacco use during , antepartum 07/27/2018 09/19/2019 Overview: 07/27/2018Pt smokes 2 cigarettes a day. Discussed risks of smoking during . Advised pt to quit. TKRN History of drug abuse 07/27/20182018 Overview: 07/27/2018Patient has a history of polysubstance abuse. She states she has abused Adderal and has used Cocaine in the past. She denies any drug abuse for the past 3 years. States she has a sponsor, but does not attend any counseling or support groups. I have discussed the benefits of support groups. TKRN History of delivery, currently 07/27/2018 03/16/2019 Overview: 07/27/2018Patient has a history of delivery at 34 weeks with her 1st . She did 17P progesterone injections with subsequent and delivered at 39 weeks. TKRN Nausea and vomiting in 07/27/2018 03/16/2019 Overview: 07/27/2018Patient is complaining of nausea in . Denies vomiting. Advised patient to call/come in if she is unable to keep any food or fluids down in a 24-hour period.TKRN Patient requested diagnostic testing 07/27/2018 03/16/2019 Overview: 07/27/2018Patient desires nuchal ultrasound. Considering CF carrier screening testing. TKRN with uncertain dates, antepartum 07/27/2018 03/16/2019 Overview: 07/27/2018Patient states LMP 04/2018. History of irregular menses. Negative test 07/13/2018. Positive test 07/19/2018. TKRN Irritable bowel syndrome wit h both constipation and diarrhea 03/30/2018 06/27/2020 Adjustment disorder with mix ed anxiety and depressed mood 09/14/2016 03/30/2018 Recurrent major depressive d isorder, in partial remission 11/19/2015 06/27/2020 Rh negative state in antepartum period 06/27/2015 03/16/2019 High risk due to h istory of labor 06/26/2015 03/30/2018 Overview: Consult [facility] for 17-OH in - JV Tobacco use disorder 06/26/2015 023 RUQ abdominal pain 11/21/2014 5 Abdominal pain 07/14/2012 03/19/2015 Overview: BHCG quant NEG 07/12/12. Pt sent to ER for evulation Polycystic ovaries 06/27/2008 5 Overview: Meets criteria - amenorrhea, DHEA-S elevated, other labs ok But hasn't had other clinical signs (obesity, acne, hair growth) SECONDARY AMENORRHEA 06/06/2008 015 PANIC DISORDER WITHOUT AGORAPHOBIA 06/26/2015 documented as of this encounter (statuses as of 07/20/2023) [facility] History of Past illness Narrative* Problem Noted Date Diagnosed Date Resolved Date Abdominal pain affecting 06/29/2022 10/20/2022 Overview: - POD5 twin section at 33 weeks for PPROM - increased abdominal pain x2 days - constipated, first bowel movement last night then two in OB ED - given mylicon - pain greatly improved s/p bowel movement, diarrhea - instructed to hold colace and miralax until diarrhea resolved - given return precautions for increase in pain or heavy bleeding History of depression 07/27/20182018 Overview: 07/27/2018Pt has a history of depression/anxiety/panic attacks since 2006. She currently takes Paxil prescribed by Dr. Dr Becerra . She is made aware that Paxil is a Category D medication in [place] and advised to call Dr Becerra to discuss medication management of her depression during . Discussed increased risks of depression during and and importance of reporting the development or worsening of symptoms should they occur. Patient denies any history of depression. Pt denies ever having any suicidal thoughts or tendencies or thoughts of hurting others. TKRN Family history of congenital heart defect 07/27/2018 03/16/2019 Overview: 07/27/2018 Pt. has two first first cousins born with a hole in heart. She has a first cousin with mental retardation. TKRN Tobacco use during , antepartum 07/27/2018 09/19/2019 Overview: 07/27/2018Pt smokes 2 cigarettes a day. Discussed risks of smoking during . Advised pt to quit. TKRN History of drug abuse 07/27/20182018 Overview: 07/27/2018Patient has a history of polysubstance abuse. She states she has abused Adderal and has used Cocaine in the past. She denies any drug abuse for the past 3 years. States she has a sponsor, but does not attend any counseling or support groups. I have discussed the benefits of support groups. TKRN History of delivery, currently 07/27/2018 03/16/2019 Overview: 07/27/2018Patient has a history of delivery at 34 weeks with her 1st . She did 17P progesterone injections with subsequent and delivered at 39 weeks. TKRN Nausea and vomiting in 07/27/2018 03/16/2019 Overview: 07/27/2018Patient is complaining of nausea in . Denies vomiting. Advised patient to call/come in if she is unable to keep any food or fluids down in a 24-hour period.TKRN Patient requested diagnostic testing 07/27/2018 03/16/2019 Overview: 07/27/2018Patient desires nuchal ultrasound. Considering CF carrier screening testing. TKRN with uncertain dates, antepartum 07/27/2018 03/16/2019 Overview: 07/27/2018Patient states LMP 04/2018. History of irregular menses. Negative test 07/13/2018. Positive test 07/19/2018. TKRN Irritable bowel syndrome wit h both constipation and diarrhea 03/30/2018 06/27/2020 Adjustment disorder with mix ed anxiety and depressed mood 09/14/2016 03/30/2018 Recurrent major depressive d isorder, in partial remission 11/19/2015 06/27/2020 Rh negative state in antepartum period 06/27/2015 03/16/2019 High risk due to h istory of labor 06/26/2015 03/30/2018 Overview: Consult [facility] for 17-OH in - JV Tobacco use disorder 06/26/2015 023 RUQ abdominal pain 11/21/2014 5 Abdominal pain 07/14/2012 03/19/2015 Overview: BHCG quant NEG 07/12/12. Pt sent to ER for evulation Polycystic ovaries 06/27/2008 5 Overview: Meets criteria - amenorrhea, DHEA-S elevated, other labs ok But hasn't had other clinical signs (obesity, acne, hair growth) SECONDARY AMENORRHEA 06/06/2008 015 PANIC DISORDER WITHOUT AGORAPHOBIA 06/26/2015 documented as of this encounter (statuses as of 08/01/2023) [facility] History of Past illness Narrative* Problem Noted Date Diagnosed Date Resolved Date Abdominal pain affecting 06/29/2022 10/20/2022 Overview: - POD5 twin section at 33 weeks for PPROM - increased abdominal pain x2 days - constipated, first bowel movement last night then two in OB ED - given mylicon - pain greatly improved s/p bowel movement, diarrhea - instructed to hold colace and miralax until diarrhea resolved - given return precautions for increase in pain or heavy bleeding History of depression 07/27/20182018 Overview: 07/27/2018Pt has a history of depression/anxiety/panic attacks since 2006. She currently takes Paxil prescribed by Dr. Dr Becerra . She is made aware that Paxil is a Category D medication in [place] and advised to call Dr Becerra to discuss medication management of her depression during . Discussed increased risks of depression during and and importance of reporting the development or worsening of symptoms should they occur. Patient denies any history of depression. Pt denies ever having any suicidal thoughts or tendencies or thoughts of hurting others. TKRN Family history of congenital heart defect 07/27/2018 03/16/2019 Overview: 07/27/2018 Pt. has two first first cousins born with a hole in heart. She has a first cousin with mental retardation. TKRN Tobacco use during , antepartum 07/27/2018 09/19/2019 Overview: 07/27/2018Pt smokes 2 cigarettes a day. Discussed risks of smoking during . Advised pt to quit. TKRN History of drug abuse 07/27/20182018 Overview: 07/27/2018Patient has a history of polysubstance abuse. She states she has abused Adderal and has used Cocaine in the past. She denies any drug abuse for the past 3 years. States she has a sponsor, but does not attend any counseling or support groups. I have discussed the benefits of support groups. TKRN History of delivery, currently 07/27/2018 03/16/2019 Overview: 07/27/2018Patient has a history of delivery at 34 weeks with her 1st . She did 17P progesterone injections with subsequent and delivered at 39 weeks. TKRN Nausea and vomiting in 07/27/2018 03/16/2019 Overview: 07/27/2018Patient is complaining of nausea in . Denies vomiting. Advised patient to call/come in if she is unable to keep any food or fluids down in a 24-hour period.TKRN Patient requested diagnostic testing 07/27/2018 03/16/2019 Overview: 07/27/2018Patient desires nuchal ultrasound. Considering CF carrier screening testing. TKRN with uncertain dates, antepartum 07/27/2018 03/16/2019 Overview: 07/27/2018Patient states LMP 04/2018. History of irregular menses. Negative test 07/13/2018. Positive test 07/19/2018. TKRN Irritable bowel syndrome wit h both constipation and diarrhea 03/30/2018 06/27/2020 Adjustment disorder with mix ed anxiety and depressed mood 09/14/2016 03/30/2018 Recurrent major depressive d isorder, in partial remission 11/19/2015 06/27/2020 Rh negative state in antepartum period 06/27/2015 03/16/2019 High risk due to h istory of labor 06/26/2015 03/30/2018 Overview: Consult [facility] for 17-OH in - JV Tobacco use disorder 06/26/2015 023 RUQ abdominal pain 11/21/2014 5 Abdominal pain 07/14/2012 03/19/2015 Overview: BHCG quant NEG 07/12/12. Pt sent to ER for evulation Polycystic ovaries 06/27/2008 5 Overview: Meets criteria - amenorrhea, DHEA-S elevated, other labs ok But hasn't had other clinical signs (obesity, acne, hair growth) SECONDARY AMENORRHEA 06/06/2008 015 PANIC DISORDER WITHOUT AGORAPHOBIA 06/26/2015 documented as of this encounter (statuses as of 08/07/2023) [facility] History of Past illness Narrative* Problem Noted Date Diagnosed Date Resolved Date Abdominal pain affecting 06/29/2022 10/20/2022 Overview: - POD5 twin section at 33 weeks for PPROM - increased abdominal pain x2 days - constipated, first bowel movement last night then two in OB ED - given mylicon - pain greatly improved s/p bowel movement, diarrhea - instructed to hold colace and miralax until diarrhea resolved - given return precautions for increase in pain or heavy bleeding History of depression 07/27/20182018 Overview: 07/27/2018Pt has a history of depression/anxiety/panic attacks since 2005. She currently takes Paxil prescribed by Dr. Dr Becerra . She is made aware that Paxil is a Category D medication in [place] and advised to call Dr Becerra to discuss medication management of her depression during . Discussed increased risks of depression during and and importance of reporting the development or worsening of symptoms should they occur. Patient denies any history of depression. Pt denies ever having any suicidal thoughts or tendencies or thoughts of hurting others. TKRN Family history of congenital heart defect 07/27/2018 03/16/2019 Overview: 07/27/2018 Pt. has two first first cousins born with a hole in heart. She has a first cousin with mental retardation. TKRN Tobacco use during , antepartum 07/27/2018 09/19/2019 Overview: 07/27/2018Pt smokes 2 cigarettes a day. Discussed risks of smoking during . Advised pt to quit. TKRN History of drug abuse 07/27/20182018 Overview: 07/27/2018Patient has a history of polysubstance abuse. She states she has abused Adderal and has used Cocaine in the past. She denies any drug abuse for the past 3 years. States she has a sponsor, but does not attend any counseling or support groups. I have discussed the benefits of support groups. TKRN History of delivery, currently 07/27/2018 03/16/2019 Overview: 07/27/2018Patient has a history of delivery at 34 weeks with her 1st . She did 17P progesterone injections with subsequent and delivered at 39 weeks. TKRN Nausea and vomiting in 07/27/2018 03/16/2019 Overview: 07/27/2018Patient is complaining of nausea in . Denies vomiting. Advised patient to call/come in if she is unable to keep any food or fluids down in a 24-hour period.TKRN Patient requested diagnostic testing 07/27/2018 03/16/2019 Overview: 07/27/2018Patient desires nuchal ultrasound. Considering CF carrier screening testing. TKRN with uncertain dates, antepartum 07/27/2018 03/16/2019 Overview: 07/27/2018Patient states LMP 04/2018. History of irregular menses. Negative test 07/13/2018. Positive test 07/19/2018. TKRN Irritable bowel syndrome wit h both constipation and diarrhea 03/30/2018 06/27/2020 Adjustment disorder with mix ed anxiety and depressed mood 09/14/2016 03/30/2018 Recurrent major depressive d isorder, in partial remission 11/19/2015 06/27/2020 Rh negative state in antepartum period 06/27/2015 03/16/2019 High risk due to h istory of labor 06/26/2015 03/30/2018 Overview: Consult [facility] for 17-OH in - JV Tobacco use disorder 06/26/2015 023 RUQ abdominal pain 11/21/2014 5 Abdominal pain 07/14/2012 03/19/2015 Overview: BHCG quant NEG 07/12/12. Pt sent to ER for evulation Polycystic ovaries 06/27/2008 5 Overview: Meets criteria - amenorrhea, DHEA-S elevated, other labs ok But hasn't had other clinical signs (obesity, acne, hair growth) SECONDARY AMENORRHEA 06/06/2008 015 PANIC DISORDER WITHOUT AGORAPHOBIA 06/26/2015 documented as of this encounter (statuses as of 08/19/2023) [facility] History of Past illness Narrative* Problem Noted Date Diagnosed Date Resolved Date Abdominal pain affecting 06/29/2022 10/20/2022 Overview: - POD5 twin section at 33 weeks for PPROM - increased abdominal pain x2 days - constipated, first bowel movement last night then two in OB ED - given mylicon - pain greatly improved s/p bowel movement, diarrhea - instructed to hold colace and miralax until diarrhea resolved - given return precautions for increase in pain or heavy bleeding History of depression 07/27/20182018 Overview: 07/27/2018Pt has a history of depression/anxiety/panic attacks since 2005. She currently takes Paxil prescribed by Dr. Dr Becerra . She is made aware that Paxil is a Category D medication in [place] and advised to call Dr Becerra to discuss medication management of her depression during . Discussed increased risks of depression during and and importance of reporting the development or worsening of symptoms should they occur. Patient denies any history of depression. Pt denies ever having any suicidal thoughts or tendencies or thoughts of hurting others. TKRN Family history of congenital heart defect 07/27/2018 03/16/2019 Overview: 07/27/2018 Pt. has two first first cousins born with a hole in heart. She has a first cousin with mental retardation. TKRN Tobacco use during , antepartum 07/27/2018 09/19/2019 Overview: 07/27/2018Pt smokes 2 cigarettes a day. Discussed risks of smoking during . Advised pt to quit. TKRN History of drug abuse 07/27/20182018 Overview: 07/27/2018Patient has a history of polysubstance abuse. She states she has abused Adderal and has used Cocaine in the past. She denies any drug abuse for the past 3 years. States she has a sponsor, but does not attend any counseling or support groups. I have discussed the benefits of support groups. TKRN History of delivery, currently 07/27/2018 03/16/2019 Overview: 07/27/2018Patient has a history of delivery at 34 weeks with her 1st . She did 17P progesterone injections with subsequent and delivered at 39 weeks. TKRN Nausea and vomiting in 07/27/2018 03/16/2019 Overview: 07/27/2018Patient is complaining of nausea in . Denies vomiting. Advised patient to call/come in if she is unable to keep any food or fluids down in a 24-hour period.TKRN Patient requested diagnostic testing 07/27/2018 03/16/2019 Overview: 07/27/2018Patient desires nuchal ultrasound. Considering CF carrier screening testing. TKRN with uncertain dates, antepartum 07/27/2018 03/16/2019 Overview: 07/27/2018Patient states LMP 04/2018. History of irregular menses. Negative test 07/13/2018. Positive test 07/19/2018. TKRN Irritable bowel syndrome wit h both constipation and diarrhea 03/30/2018 06/27/2020 Adjustment disorder with mix ed anxiety and depressed mood 09/14/2016 03/30/2018 Recurrent major depressive d isorder, in partial remission 11/19/2015 06/27/2020 Rh negative state in antepartum period 06/27/2015 03/16/2019 High risk due to h istory of labor 06/26/2015 03/30/2018 Overview: Consult [facility] for 17-OH in - JV Tobacco use disorder 06/26/2015 023 RUQ abdominal pain 11/21/2014 5 Abdominal pain 07/14/2012 03/19/2015 Overview: BHCG quant NEG 07/12/12. Pt sent to ER for evulation Polycystic ovaries 06/27/2008 5 Overview: Meets criteria - amenorrhea, DHEA-S elevated, other labs ok But hasn't had other clinical signs (obesity, acne, hair growth) SECONDARY AMENORRHEA 06/06/2008 015 PANIC DISORDER WITHOUT AGORAPHOBIA 06/26/2015 documented as of this encounter (statuses as of 08/29/2023) [facility] History of Past illness Narrative* Problem Noted Date Diagnosed Date Resolved Date Abdominal pain affecting 06/29/2022 10/20/2022 Overview: - POD5 twin section at 33 weeks for PPROM - increased abdominal pain x2 days - constipated, first bowel movement last night then two in OB ED - given mylicon - pain greatly improved s/p bowel movement, diarrhea - instructed to hold colace and miralax until diarrhea resolved - given return precautions for increase in pain or heavy bleeding History of depression 07/27/20182018 Overview: 07/27/2018Pt has a history of depression/anxiety/panic attacks since 2006. She currently takes Paxil prescribed by Dr. Dr Becerra . She is made aware that Paxil is a Category D medication in [place] and advised to call Dr Becerra to discuss medication management of her depression during . Discussed increased risks of depression during and and importance of reporting the development or worsening of symptoms should they occur. Patient denies any history of depression. Pt denies ever having any suicidal thoughts or tendencies or thoughts of hurting others. TKRN Family history of congenital heart defect 07/27/2018 03/16/2019 Overview: 07/27/2018 Pt. has two first first cousins born with a hole in heart. She has a first cousin with mental retardation. TKRN Tobacco use during , antepartum 07/27/2018 09/19/2019 Overview: 07/27/2018Pt smokes 2 cigarettes a day. Discussed risks of smoking during . Advised pt to quit. TKRN History of drug abuse 07/27/20182018 Overview: 07/27/2018Patient has a history of polysubstance abuse. She states she has abused Adderal and has used Cocaine in the past. She denies any drug abuse for the past 3 years. States she has a sponsor, but does not attend any counseling or support groups. I have discussed the benefits of support groups. TKRN History of delivery, currently 07/27/2018 03/16/2019 Overview: 07/27/2018Patient has a history of delivery at 34 weeks with her 1st . She did 17P progesterone injections with subsequent and delivered at 39 weeks. TKRN Nausea and vomiting in 07/27/2018 03/16/2019 Overview: 07/27/2018Patient is complaining of nausea in . Denies vomiting. Advised patient to call/come in if she is unable to keep any food or fluids down in a 24-hour period.TKRN Patient requested diagnostic testing 07/27/2018 03/16/2019 Overview: 07/27/2018Patient desires nuchal ultrasound. Considering CF carrier screening testing. TKRN with uncertain dates, antepartum 07/27/2018 03/16/2019 Overview: 07/27/2018Patient states LMP 04/2018. History of irregular menses. Negative test 07/13/2018. Positive test 07/19/2018. TKRN Irritable bowel syndrome wit h both constipation and diarrhea 03/30/2018 06/27/2020 Adjustment disorder with mix ed anxiety and depressed mood 09/14/2016 03/30/2018 Recurrent major depressive d isorder, in partial remission 11/19/2015 06/27/2020 Rh negative state in antepartum period 06/27/2015 03/16/2019 High risk due to h istory of labor 06/26/2015 03/30/2018 Overview: Consult [facility] for 17-OH in - JV Tobacco use disorder 06/26/2015 023 RUQ abdominal pain 11/21/2014 5 Abdominal pain 07/14/2012 03/19/2015 Overview: BHCG quant NEG 07/12/12. Pt sent to ER for evulation Polycystic ovaries 06/27/2008 5 Overview: Meets criteria - amenorrhea, DHEA-S elevated, other labs ok But hasn't had other clinical signs (obesity, acne, hair growth) SECONDARY AMENORRHEA 06/06/2008 015 PANIC DISORDER WITHOUT AGORAPHOBIA 06/26/2015 documented as of this encounter (statuses as of 09/07/2023) [facility]09-[facility] History of Past illness Narrative* Problem Noted Date Diagnosed Date Resolved Date Abdominal pain affecting 06/29/2022 10/20/2022 Overview: - POD5 twin section at 33 weeks for PPROM - increased abdominal pain x2 days - constipated, first bowel movement last night then two in OB ED - given mylicon - pain greatly improved s/p bowel movement, diarrhea - instructed to hold colace and miralax until diarrhea resolved - given return precautions for increase in pain or heavy bleeding History of depression 07/27/20182018 Overview: 07/27/2018Pt has a history of depression/anxiety/panic attacks since 2006. She currently takes Paxil prescribed by Dr. Dr Becerra . She is made aware that Paxil is a Category D medication in pergn[place] and advised to call Dr Becerra to discuss medication management of her depression during . Discussed increased risks of depression during and and importance of reporting the development or worsening of symptoms should they occur. Patient denies any history of depression. Pt denies ever having any suicidal thoughts or tendencies or thoughts of hurting others. TKRN Family history of congenital heart defect 07/27/2018 03/16/2019 Overview: 07/27/2018 Pt. has two first first cousins born with a hole in heart. She has a first cousin with mental retardation. TKRN Tobacco use during , antepartum 07/27/2018 09/19/2019 Overview: 07/27/2018Pt smokes 2 cigarettes a day. Discussed risks of smoking during . Advised pt to quit. TKRN History of drug abuse 07/27/20182018 Overview: 07/27/2018Patient has a history of polysubstance abuse. She states she has abused Adderal and has used Cocaine in the past. She denies any drug abuse for the past 3 years. States she has a sponsor, but does not attend any counseling or support groups. I have discussed the benefits of support groups. TKRN History of delivery, currently 07/27/2018 03/16/2019 Overview: 07/27/2018Patient has a history of delivery at 34 weeks with her 1st . She did 17P progesterone injections with subsequent and delivered at 39 weeks. TKRN Nausea and vomiting in 07/27/2018 03/16/2019 Overview: 07/27/2018Patient is complaining of nausea in . Denies vomiting. Advised patient to call/come in if she is unable to keep any food or fluids down in a 24-hour period.TKRN Patient requested diagnostic testing 07/27/2018 03/16/2019 Overview: 07/27/2018Patient desires nuchal ultrasound. Considering CF carrier screening testing. TKRN with uncertain dates, antepartum 07/27/2018 03/16/2019 Overview: 07/27/2018Patient states LMP 04/2018. History of irregular menses. Negative test 07/13/2018. Positive test 07/19/2018. TKRN Irritable bowel syndrome wit h both constipation and diarrhea 03/30/2018 06/27/2020 Adjustment disorder with mix ed anxiety and depressed mood 09/14/2016 03/30/2018 Recurrent major depressive d isorder, in partial remission 11/19/2015 06/27/2020 Rh negative state in antepartum period 06/27/2015 03/16/2019 High risk due to h istory of labor 06/26/2015 03/30/2018 Overview: Consult [facility] for 17-OH in - JV Tobacco use disorder 06/26/2015 023 RUQ abdominal pain 11/21/2014 5 Abdominal pain 07/14/2012 03/19/2015 Overview: BHCG quant NEG 07/12/12. Pt sent to ER for evulation Polycystic ovaries 06/27/2008 5 Overview: Meets criteria - amenorrhea, DHEA-S elevated, other labs ok But hasn't had other clinical signs (obesity, acne, hair growth) SECONDARY AMENORRHEA 06/06/2008 015 PANIC DISORDER WITHOUT AGORAPHOBIA 06/26/2015 documented as of this encounter (statuses as of 12/02/2023) [facility] History of Past illness Narrative* Problem Noted Date Diagnosed Date Resolved Date Abdominal pain affecting 06/29/2022 10/20/2022 Overview: - POD5 twin section at 33 weeks for PPROM - increased abdominal pain x2 days - constipated, first bowel movement last night then two in OB ED - given mylicon - pain greatly improved s/p bowel movement, diarrhea - instructed to hold colace and miralax until diarrhea resolved - given return precautions for increase in pain or heavy bleeding History of depression 07/27/20182018 Overview: 07/27/2018Pt has a history of depression/anxiety/panic attacks since 2006. She currently takes Paxil prescribed by Dr. Dr Becerra . She is made aware that Paxil is a Category D medication in [place] and advised to call Dr Becerra to discuss medication management of her depression during . Discussed increased risks of depression during and and importance of reporting the development or worsening of symptoms should they occur. Patient denies any history of depression. Pt denies ever having any suicidal thoughts or tendencies or thoughts of hurting others. TKRN Family history of congenital heart defect 07/27/2018 03/16/2019 Overview: 07/27/2018 Pt. has two first first cousins born with a hole in heart. She has a first cousin with mental retardation. TKRN Tobacco use during , antepartum 07/27/2018 09/19/2019 Overview: 07/27/2018Pt smokes 2 cigarettes a day. Discussed risks of smoking during . Advised pt to quit. TKRN History of drug abuse 07/27/20182018 Overview: 07/27/2018Patient has a history of polysubstance abuse. She states she has abused Adderal and has used Cocaine in the past. She denies any drug abuse for the past 3 years. States she has a sponsor, but does not attend any counseling or support groups. I have discussed the benefits of support groups. TKRN History of delivery, currently 07/27/2018 03/16/2019 Overview: 07/27/2018Patient has a history of delivery at 34 weeks with her 1st . She did 17P progesterone injections with subsequent and delivered at 39 weeks. TKRN Nausea and vomiting in 07/27/2018 03/16/2019 Overview: 07/27/2018Patient is complaining of nausea in . Denies vomiting. Advised patient to call/come in if she is unable to keep any food or fluids down in a 24-hour period.TKRN Patient requested diagnostic testing 07/27/2018 03/16/2019 Overview: 07/27/2018Patient desires nuchal ultrasound. Considering CF carrier screening testing. TKRN with uncertain dates, antepartum 07/27/2018 03/16/2019 Overview: 07/27/2018Patient states LMP 04/2018. History of irregular menses. Negative test 07/13/2018. Positive test 07/19/2018. TKRN Irritable bowel syndrome wit h both constipation and diarrhea 03/30/2018 06/27/2020 Adjustment disorder with mix ed anxiety and depressed mood 09/14/2016 03/30/2018 Recurrent major depressive d isorder, in partial remission 11/19/2015 06/27/2020 Rh negative state in antepartum period 06/27/2015 03/16/2019 High risk due to h istory of labor 06/26/2015 03/30/2018 Overview: Consult [facility] for 17-OH in - JV Tobacco use disorder 06/26/2015 023 RUQ abdominal pain 11/21/2014 5 Abdominal pain 07/14/2012 03/19/2015 Overview: BHCG quant NEG 07/12/12. Pt sent to ER for evulation Polycystic ovaries 06/27/2008 5 Overview: Meets criteria - amenorrhea, DHEA-S elevated, other labs ok But hasn't had other clinical signs (obesity, acne, hair growth) SECONDARY AMENORRHEA 06/06/2008 015 PANIC DISORDER WITHOUT AGORAPHOBIA 06/26/2015 documented as of this encounter (statuses as of 12/06/2023) [facility] History of Past illness Narrative* Problem Noted Date Diagnosed Date Resolved Date Abdominal pain affecting 06/29/2022 10/20/2022 Overview: - POD5 twin section at 33 weeks for PPROM - increased abdominal pain x2 days - constipated, first bowel movement last night then two in OB ED - given mylicon - pain greatly improved s/p bowel movement, diarrhea - instructed to hold colace and miralax until diarrhea resolved - given return precautions for increase in pain or heavy bleeding History of depression 07/27/20182018 Overview: 07/27/2018Pt has a history of depression/anxiety/panic attacks since 2006. She currently takes Paxil prescribed by Dr. Dr Becerra . She is made aware that Paxil is a Category D medication in [place] and advised to call Dr Becerra to discuss medication management of her depression during . Discussed increased risks of depression during and and importance of reporting the development or worsening of symptoms should they occur. Patient denies any history of depression. Pt denies ever having any suicidal thoughts or tendencies or thoughts of hurting others. TKRN Family history of congenital heart defect 07/27/2018 03/16/2019 Overview: 07/27/2018 Pt. has two first first cousins born with a hole in heart. She has a first cousin with mental retardation. TKRN Tobacco use during , antepartum 07/27/2018 09/19/2019 Overview: 07/27/2018Pt smokes 2 cigarettes a day. Discussed risks of smoking during . Advised pt to quit. TKRN History of drug abuse 07/27/20182018 Overview: 07/27/2018Patient has a history of polysubstance abuse. She states she has abused Adderal and has used Cocaine in the past. She denies any drug abuse for the past 3 years. States she has a sponsor, but does not attend any counseling or support groups. I have discussed the benefits of support groups. TKRN History of delivery, currently 07/27/2018 03/16/2019 Overview: 07/27/2018Patient has a history of delivery at 34 weeks with her 1st . She did 17P progesterone injections with subsequent and delivered at 39 weeks. TKRN Nausea and vomiting in 07/27/2018 03/16/2019 Overview: 07/27/2018Patient is complaining of nausea in . Denies vomiting. Advised patient to call/come in if she is unable to keep any food or fluids down in a 24-hour period.TKRN Patient requested diagnostic testing 07/27/2018 03/16/2019 Overview: 07/27/2018Patient desires nuchal ultrasound. Considering CF carrier screening testing. TKRN with uncertain dates, antepartum 07/27/2018 03/16/2019 Overview: 07/27/2018Patient states LMP 04/2018. History of irregular menses. Negative test 07/13/2018. Positive test 07/19/2018. TKRN Irritable bowel syndrome wit h both constipation and diarrhea 03/30/2018 06/27/2020 Adjustment disorder with mix ed anxiety and depressed mood 09/14/2016 03/30/2018 Recurrent major depressive d isorder, in partial remission 11/19/2015 06/27/2020 Rh negative state in antepartum period 06/27/2015 03/16/2019 High risk due to h istory of labor 06/26/2015 03/30/2018 Overview: Consult [facility] for 17-OH in - JV Tobacco use disorder 06/26/2015 023 RUQ abdominal pain 11/21/2014 5 Abdominal pain 07/14/2012 03/19/2015 Overview: BHCG quant NEG 07/12/12. Pt sent to ER for evulation Polycystic ovaries 06/27/2008 5 Overview: Meets criteria - amenorrhea, DHEA-S elevated, other labs ok But hasn't had other clinical signs (obesity, acne, hair growth) SECONDARY AMENORRHEA 06/06/2008 015 PANIC DISORDER WITHOUT AGORAPHOBIA 06/26/2015 documented as of this encounter (statuses as of 12/14/2023) [facility] History of Past illness Narrative* Problem Noted Date Diagnosed Date Resolved Date Abdominal pain affecting 06/29/2022 10/20/2022 Overview: - POD5 twin section at 33 weeks for PPROM - increased abdominal pain x2 days - constipated, first bowel movement last night then two in OB ED - given mylicon - pain greatly improved s/p bowel movement, diarrhea - instructed to hold colace and miralax until diarrhea resolved - given return precautions for increase in pain or heavy bleeding History of depression 07/27/20182018 Overview: 07/27/2018Pt has a history of depression/anxiety/panic attacks since 2006. She currently takes Paxil prescribed by Dr. Dr Becerra . She is made aware that Paxil is a Category D medication in [place]gn[place] and advised to call Dr Becerra to discuss medication management of her depression during . Discussed increased risks of depression during and and importance of reporting the development or worsening of symptoms should they occur. Patient denies any history of depression. Pt denies ever having any suicidal thoughts or tendencies or thoughts of hurting others. TKRN Family history of congenital heart defect 07/27/2018 03/16/2019 Overview: 07/27/2018 Pt. has two first first cousins born with a hole in heart. She has a first cousin with mental retardation. TKRN Tobacco use during , antepartum 07/27/2018 09/19/2019 Overview: 07/27/2018Pt smokes 2 cigarettes a day. Discussed risks of smoking during . Advised pt to quit. TKRN History of drug abuse 07/27/20182018 Overview: 07/27/2018Patient has a history of polysubstance abuse. She states she has abused Adderal and has used Cocaine in the past. She denies any drug abuse for the past 3 years. States she has a sponsor, but does not attend any counseling or support groups. I have discussed the benefits of support groups. TKRN History of delivery, currently 07/27/2018 03/16/2019 Overview: 07/27/2018Patient has a history of delivery at 34 weeks with her 1st . She did 17P progesterone injections with subsequent and delivered at 39 weeks. TKRN Nausea and vomiting in 07/27/2018 03/16/2019 Overview: 07/27/2018Patient is complaining of nausea in . Denies vomiting. Advised patient to call/come in if she is unable to keep any food or fluids down in a 24-hour period.TKRN Patient requested diagnostic testing 07/27/2018 03/16/2019 Overview: 07/27/2018Patient desires nuchal ultrasound. Considering CF carrier screening testing. TKRN with uncertain dates, antepartum 07/27/2018 03/16/2019 Overview: 07/27/2018Patient states LMP 04/2018. History of irregular menses. Negative test 07/13/2018. Positive test 07/19/2018. TKRN Irritable bowel syndrome wit h both constipation and diarrhea 03/30/2018 06/27/2020 Adjustment disorder with mix ed anxiety and depressed mood 09/14/2016 03/30/2018 Recurrent major depressive d isorder, in partial remission 11/19/2015 06/27/2020 Rh negative state in antepartum period 06/27/2015 03/16/2019 High risk due to h istory of labor 06/26/2015 03/30/2018 Overview: Consult [facility] for 17-OH in - JV Tobacco use disorder 06/26/2015 023 RUQ abdominal pain 11/21/2014 5 Abdominal pain 07/14/2012 03/19/2015 Overview: BHCG quant NEG 07/12/12. Pt sent to ER for evulation Polycystic ovaries 06/27/2008 5 Overview: Meets criteria - amenorrhea, DHEA-S elevated, other labs ok But hasn't had other clinical signs (obesity, acne, hair growth) SECONDARY AMENORRHEA 06/06/2008 015 PANIC DISORDER WITHOUT AGORAPHOBIA 06/26/2015 documented as of this encounter (statuses as of 12/16/2023) [facility] History of Past illness Narrative* Problem Noted Date Diagnosed Date Resolved Date Abdominal pain affecting 06/29/2022 10/20/2022 Overview: - POD5 twin section at 33 weeks for PPROM - increased abdominal pain x2 days - constipated, first bowel movement last night then two in OB ED - given mylicon - pain greatly improved s/p bowel movement, diarrhea - instructed to hold colace and miralax until diarrhea resolved - given return precautions for increase in pain or heavy bleeding History of depression 07/27/20182018 Overview: 07/27/2018Pt has a history of depression/anxiety/panic attacks since 2006. She currently takes Paxil prescribed by Dr. Dr Becerra . She is made aware that Paxil is a Category D medication in pergn[place] and advised to call Dr Becerra to discuss medication management of her depression during . Discussed increased risks of depression during and and importance of reporting the development or worsening of symptoms should they occur. Patient denies any history of depression. Pt denies ever having any suicidal thoughts or tendencies or thoughts of hurting others. TKRN Family history of congenital heart defect 07/27/2018 03/16/2019 Overview: 07/27/2018 Pt. has two first first cousins born with a hole in heart. She has a first cousin with mental retardation. TKRN Tobacco use during , antepartum 07/27/2018 09/19/2019 Overview: 07/27/2018Pt smokes 2 cigarettes a day. Discussed risks of smoking during . Advised pt to quit. TKRN History of drug abuse 07/27/20182018 Overview: 07/27/2018Patient has a history of polysubstance abuse. She states she has abused Adderal and has used Cocaine in the past. She denies any drug abuse for the past 3 years. States she has a sponsor, but does not attend any counseling or support groups. I have discussed the benefits of support groups. TKRN History of delivery, currently 07/27/2018 03/16/2019 Overview: 07/27/2018Patient has a history of delivery at 34 weeks with her 1st . She did 17P progesterone injections with subsequent and delivered at 39 weeks. TKRN Nausea and vomiting in 07/27/2018 03/16/2019 Overview: 07/27/2018Patient is complaining of nausea in . Denies vomiting. Advised patient to call/come in if she is unable to keep any food or fluids down in a 24-hour period.TKRN Patient requested diagnostic testing 07/27/2018 03/16/2019 Overview: 07/27/2018Patient desires nuchal ultrasound. Considering CF carrier screening testing. TKRN with uncertain dates, antepartum 07/27/2018 03/16/2019 Overview: 07/27/2018Patient states LMP 04/2018. History of irregular menses. Negative test 07/13/2018. Positive test 07/19/2018. TKRN Irritable bowel syndrome wit h both constipation and diarrhea 03/30/2018 06/27/2020 Adjustment disorder with mix ed anxiety and depressed mood 09/14/2016 03/30/2018 Recurrent major depressive d isorder, in partial remission 11/19/2015 06/27/2020 Rh negative state in antepartum period 06/27/2015 03/16/2019 High risk due to h istory of labor 06/26/2015 03/30/2018 Overview: Consult [facility] for 17-OH in - JV Tobacco use disorder 06/26/2015 023 RUQ abdominal pain 11/21/2014 5 Abdominal pain 07/14/2012 03/19/2015 Overview: BHCG quant NEG 07/12/12. Pt sent to ER for evulation Polycystic ovaries 06/27/2008 5 Overview: Meets criteria - amenorrhea, DHEA-S elevated, other labs ok But hasn't had other clinical signs (obesity, acne, hair growth) SECONDARY AMENORRHEA 06/06/2008 015 PANIC DISORDER WITHOUT AGORAPHOBIA 06/26/2015 documented as of this encounter (statuses as of 12/26/2023) [facility] History of Past illness Narrative* Problem Noted Date Diagnosed Date Resolved Date Abdominal pain affecting 06/29/2022 10/20/2022 Overview: - POD5 twin section at 33 weeks for PPROM - increased abdominal pain x2 days - constipated, first bowel movement last night then two in OB ED - given mylicon - pain greatly improved s/p bowel movement, diarrhea - instructed to hold colace and miralax until diarrhea resolved - given return precautions for increase in pain or heavy bleeding History of depression 07/27/20182018 Overview: 07/27/2018Pt has a history of depression/anxiety/panic attacks since 2005. She currently takes Paxil prescribed by Dr. Dr Becerra . She is made aware that Paxil is a Category D medication in pergn[place] and advised to call Dr Becerra to discuss medication management of her depression during . Discussed increased risks of depression during and and importance of reporting the development or worsening of symptoms should they occur. Patient denies any history of depression. Pt denies ever having any suicidal thoughts or tendencies or thoughts of hurting others. TKRN Family history of congenital heart defect 07/27/2018 03/16/2019 Overview: 07/27/2018 Pt. has two first first cousins born with a hole in heart. She has a first cousin with mental retardation. TKRN Tobacco use during , antepartum 07/27/2018 09/19/2019 Overview: 07/27/2018Pt smokes 2 cigarettes a day. Discussed risks of smoking during . Advised pt to quit. TKRN History of drug abuse 07/27/20182018 Overview: 07/27/2018Patient has a history of polysubstance abuse. She states she has abused Adderal and has used Cocaine in the past. She denies any drug abuse for the past 3 years. States she has a sponsor, but does not attend any counseling or support groups. I have discussed the benefits of support groups. TKRN History of delivery, currently 07/27/2018 03/16/2019 Overview: 07/27/2018Patient has a history of delivery at 34 weeks with her 1st . She did 17P progesterone injections with subsequent and delivered at 39 weeks. TKRN Nausea and vomiting in 07/27/2018 03/16/2019 Overview: 07/27/2018Patient is complaining of nausea in . Denies vomiting. Advised patient to call/come in if she is unable to keep any food or fluids down in a 24-hour period.TKRN Patient requested diagnostic testing 07/27/2018 03/16/2019 Overview: 07/27/2018Patient desires nuchal ultrasound. Considering CF carrier screening testing. TKRN with uncertain dates, antepartum 07/27/2018 03/16/2019 Overview: 07/27/2018Patient states LMP 04/2018. History of irregular menses. Negative test 07/13/2018. Positive test 07/19/2018. TKRN Irritable bowel syndrome wit h both constipation and diarrhea 03/30/2018 06/27/2020 Adjustment disorder with mix ed anxiety and depressed mood 09/14/2016 03/30/2018 Recurrent major depressive d isorder, in partial remission 11/19/2015 06/27/2020 Rh negative state in antepartum period 06/27/2015 03/16/2019 High risk due to h istory of labor 06/26/2015 03/30/2018 Overview: Consult [facility] for 17-OH in - JV Tobacco use disorder 06/26/2015 023 RUQ abdominal pain 11/21/2014 5 Abdominal pain 07/14/2012 03/19/2015 Overview: BHCG quant NEG 07/12/12. Pt sent to ER for evulation Polycystic ovaries 06/27/2008 5 Overview: Meets criteria - amenorrhea, DHEA-S elevated, other labs ok But hasn't had other clinical signs (obesity, acne, hair growth) SECONDARY AMENORRHEA 06/06/2008 015 PANIC DISORDER WITHOUT AGORAPHOBIA 06/26/2015 documented as of this encounter (statuses as of 01/13/2024) [facility] History of Present illness Narrative* Yvonne Valdez APRN.CONTROL SUPERVISOR - 06/23/2022 3:48 PM EDT Subjective Sore Throat Associated symptoms include congestion, coughing and headaches. Pertinent negatives include no diarrhea or vomiting. Lillian Drake is a 36 year old female who presents with cough, congestion and sorethroat for the past 4 days. Her daughter is ill currently with URI symptoms. She has been taking Mucinex. She is currently . Review of Systems Constitutional: Negative for chills and fever. HENT: Positive for congestion and sore throat. Respiratory: Positive for cough. Cardiovascular: Negative. Gastrointestinal: Negative for diarrhea, nausea and vomiting. Musculoskeletal: Negative for myalgias. Neurological: Positive for headaches. BP 104/76 Pulse 95 Temp 36.9 C (98.4 F) Resp 21 Wt 80.8 kg (178 lb 3.2 oz) LMP 06/08/2019(Approximate) SpO2 98% BMI 31.57 kg/m PAST MEDICAL HISTORY Diagnosis Date Asthma exercise induced, no asthma attacks since age 19 COVID-19 09/28/2021 + Home test. Depression 06/17/2014 Generalized anxiety disorder 2006 Infertility, female PCOS, attempted to conceive for 3 years with 2nd child Irritable bowel syndrome with both constipation and diarrhea 03/30/2018 Major depressive disorder, recurrent episode, unspecified 2006 Miscarriage 2011 Mixed hypertriglyceridemia 03/30/2018 Other migraine, not intractable, without status migrainosus 03/30/2018 Panic disorder without agoraphobia PCOS (polycystic ovarian syndrome) 2008 Polysubstance dependence (HCC) 06/17/2014 Polysubstance dependence in early, early partial, sustained full, or sustained partial remission (HCC) 12/10/2014 labor delivered 6 weeks early Recurrent major depressive disorder, in partial remission (HCC) 11/19/2015 Rh negative state in antepartum period 06/27/2015 SECONDARY AMENORRHEA 06/06/2008 Tobacco use disorder 06/26/2015 PAST SURGICAL HISTORY Procedure Laterality Date COLONOSCOPY FLX DX W/COLLJ SPEC WHEN PFRMD 05/08/2020 Colonoscopy ESOPHAGOGASTRODUODENOSCOPY TRANSORAL DIAGNOSTIC 11/21/14 EGD ESOPHAGOGASTRODUODENOSCOPY TRANSORAL DIAGNOSTIC 05/08/2020 EGD ALLERGIES Dicyclomine, Lexapro [Escitalopram Oxalate], and Penicillins MEDICATIONS sertraline HCl (ZOLOFT ORAL) Take by mouth. famotidine (PEPCID AC) 20 mg tablet Take 20 mg by mouth twice daily. promethazine (PHENERGAN) 25 mg tablet Take 0.5 tablets by mouth every 6 hours as needed for nausea/vomiting. albuterol HFA (PROVENTIL HFA, VENTOLIN HFA) 90 mcg/actuation inhaler Inhale 2 Puffs as instructed every 4 hours as needed. acetaminophen 650 mg CR tablet Take 650 mg by mouth every 8 hours as needed. NAPROXEN ORAL Take by mouth. (Patient not taking: Reported on 06/23/2022) predniSONE (DELTASONE) 10 mg tablet TAKE BY MOUTH 4 TABLETS DAILY FOR 2 DAYS, THEN 3 TABLETS DAILY FOR 2 DAYS, THEN 2 TABLETS DAILY FOR 2 DAYS, THEN 1 TABLET DAILY FOR 2 DAYS. (Patient not taking: Reported on 06/23/2022) escitalopram oxalate (LEXAPRO) 10 mg tablet Take 1 tablet by mouth once daily. (Patient not taking:Reported on 06/23/2022) FAMILY HISTORY Problem Relation Age of Onset No Known Problems Mother Lipids Father Thyroid Sister No Known Problems Brother No Known Problems Maternal Grandmother Ischemic Heart Disease Maternal Grandfather CA at later age Diabetes Maternal Grandfather Hypertension Maternal Grandfather Thyroid Paternal Grandmother Emphysema Paternal Grandmother No Known Problems Paternal Grandfather ADD/ADHD Son Alcohol/Drug Paternal Aunt No Known Problems Daughter Social History Tobacco Use Smoking status: Every Day Years: 10.00 Types: Cigarettes Smokeless tobacco: Never Tobacco comments: 5 cigarretes a day Vaping Use Vaping Use: Never used Substance Use Topics Alcohol use: No Drug use: No Objective Physical Exam Vitals and nursing note reviewed. Constitutional: Appearance: Normal appearance. HENT: Right Ear: Tympanic membrane, ear canal and external ear normal. Left Ear: Tympanic membrane, ear canal and external ear normal. Nose: Nose normal. Mouth/Throat: Mouth: Mucous membranes are moist. Pharynx: Oropharynx is clear. Uvula midline. Posterior oropharyngeal erythema present. No oropharyngeal exudate. Tonsils: No tonsillar exudate. Cardiovascular: Rate and Rhythm: Normal rate and regular rhythm. Heart sounds: Normal heart sounds. Pulmonary: Effort: Pulmonary effort is normal. No respiratory distress. Breath sounds: Normal breath sounds. No wheezing or rales. Musculoskeletal: Cervical back: Neck supple. Lymphadenopathy: Cervical: No cervical adenopathy. Skin: General: Skin is warm and dry. Findings: No erythema or rash. Neurological: Mental Status: She is alert. ASSESSMENT/PLAN: 1. Viral illness - ICD9: 079.99, ICD10: B34.9 (primary diagnosis) - Discussed viral etiology and rationale for treatment. - Symptomatic treatment with prn analgesia - Supportive care with fluids and rest - COVID WITH FLUA+B, ROUTINE 2. Sore throat - ICD9: 462, ICD10: J02.9 - suspect viral - Alere Strep Test negative, no culture pending - Discussed supportive care treatment with fluids, rest and analgesia. - STREP A MOLECULAR (POC) - Follow-up with your PCP in 3-5 days if symptoms have not improved or sooner if symptoms worsen - Discussed red flags and need for immediate medical evaluation if any occur. - Discussed supportive care treatment with fluids, rest and analgesia. - Discussed expected course of illness Yvonne Eagle APRN.CONTROL SUPERVISOR [facility] Instructions* Patient Instructions* Yvonne Eagle APRN.CONTROL SUPERVISOR - 06/23/2022 3:31 PM EDT ASSESSMENT/PLAN: 1. Viral illness - ICD9: 079.99, ICD10: B34.9 (primary diagnosis) - Discussed viral etiology and rationale for treatment. - Symptomatic treatment with prn analgesia - Supportive care with fluids and rest - COVID WITH FLUA+B, ROUTINE 2. Sore throat - ICD9: 462, ICD10: J02.9 - suspect viral - Alere Strep Test negative, no culture pending - Discussed supportive care treatment with fluids, rest and analgesia. - STREP A MOLECULAR (POC) - Follow-up with your PCP in 3-5 days if symptoms have not improved or sooner if symptoms worsen - Discussed red flags and need for immediate medical evaluation if any occur. - Discussed supportive care treatment with fluids, rest and analgesia. - Discussed expected course of illness Yvonne Eagle APRN.CONTROL SUPERVISOR Beginning Home Isolation Isolation is used to separate people infected with SARS-CoV-2, the virus that causes COVID-19, frompeople who are not infected. People who are in isolation should stay home until it s safe for them to be around others. In the home, anyone sick or infected should separate themselves from others by staying in a specific sick room or area and using a separate bathroom (if available). Isolation or Quarantine: What's the difference? Quarantine keeps someone who might have been exposed to the virus away from others. Isolation keeps someone who is infected with the virus away from others, even in their home. Who needs to isolate People who have COVID-19 People who have symptoms of COVID-19 and are able to recover at home People who have no symptoms (are asymptomatic) but have tested positive for infection with SARS-CoV-2 Steps to take Stay home except to get medical care Monitor your symptoms. Stay in a separate room from other household members, if possible Use a separate bathroom, if possible Avoid contact with other members of the household and pets Don t share personal household items, like cups, towels, and utensils Wear a mask when around other people, if you are able to When to seek emergency medical attention Look for emergency warning signs* for COVID-19. If someone is showing any of these signs, seek emergency medical care immediately: Trouble breathing Persistent pain or pressure in the chest New confusion Inability to wake or stay awake Bluish lips or face *This list is not all possible symptoms. Please call your medical provider for any other symptoms that are severe or concerning to you. Call 911 or call ahead to your local emergency facility: Notify the cooler operator that you are seeking care for someone who has or may have COVID-19. Ending Home Isolation - When you can be around others after you had or likely had COVID-19 When you can be around others after you had or likely had COVID-19 If You Test Positive for COVID-19 (Isolation) Everyone, regardless of vaccination status: Stay home for 5 days. Note: Day 0 is your first day of symptoms or the date of collection of a positive viral test if no symptoms. Day 1 is the first full day after symptoms developed or test specimen was collected. If you have no symptoms or your symptoms are resolving after 5 days, you can leave your house. Continue to wear a mask around others for 5 additional days. If you have a fever, continue to stay home until your fever resolves, even if it is longer than 5 days. If You Were Exposed to Someone with COVID-19 (Quarantine) If you: 1. Have been boosted OR 2. Completed the primary series of Pfizer or Moderna vaccine within the last 6 months OR 3. Completed the primary series of J&J vaccine within the last 2 months THEN: 1. Wear a mask around others for 10 days. 2. Test on day 5, if possible. If you develop symptoms get a test and stay home. If You Were Exposed to Someone with COVID-19 (Quarantine) If you: 1. Completed the primary series of Pfizer or Moderna vaccine over 6 months ago and are not boosted OR 2. Completed the primary series of J&J over 2 months ago and are not boosted OR 3. Are unvaccinated THEN: 1. Stay home for 5 days. After that continue to wear a mask around others for 5 additional days. 2. If you can't quarantine you must wear a mask for 10 days. 3. Test on day 5 if possible. If you develop symptoms get a test and stay home. I had COVID-19 or I tested positive for COVID-19 and I have a weakened immune system If you have a weakened immune system (immunocompromised) due to a health condition or medication, you might need to stay home and isolate longer than 10 days. Talk to your healthcare provider for more information. Your doctor may work with an infectious disease expert at your local health department to determinewhen you can be around others. How to Manage Common Symptoms Associated with COVID for Adults Fever- Fever is a temperature over 100.4 F and can occur when the body is fighting an infection. Tohelp treat a fever: Drink plenty of fluids and stay well hydrated. Eat small amounts of easy to digest food. Rest. Your body needs rest to recover, but getting up and moving around the house frequently is a good idea. You should try to continue doing your normal daily activities (bathing, toileting, grooming, cooking), though you will probably feel tired, and need to rest often. Avoid any heavy activity or exercise, as this will increase your body temperature. Dress in light clothing and stay covered in a light sheet. Keep the room temperature cool. Take a slightly warm (not cold or cool) bath, or apply damp washcloths to the forehead and wrists. Cough- Cough is a common symptom associated with COVID and can be bothersome. To help treat a cough: Stay well hydrated. Try warm water or tea with lemon and/or honey to help soothe the cough. Use a humidifier to add moisture to the air. Try a product with menthol, like a cough drop or a rub for your chest such as Vicks, which can helpreduce cough. Try cough drops. Avoid smoking and other strong odors or perfumes. Try breathing exercises to keep your lungs open and clear. Take a big deep breath through your noseand hold for 5 seconds before slowly releasing. Repeat frequently, while you are awake. Congestion- Runny nose or nasal congestion can occur with COVID. Treatment can help relieve symptoms: Try OTC nasal saline spray, or nasal saline rinse to relieve mucus congestion. Nasal strips can help keep nasal passages open, to increase airflow. Elevating your head with an extra pillow in bed can help reduce congestion. Using a humidifier can increase moisture in the air, and make breathing easier. Sore Throat- Another common symptom with COVID, can be managed at home by: Stay well hydrated. Gargle with salt water - mix teaspoon salt with 1 cup of warm water and gargle. This helps to loosen mucus in the back of the throat and may reduce discomfort. Try ice chips, popsicles or lozenges to soothe the throat. Nausea/Vomiting/Diarrhea- These are common symptoms, and staying hydrated is most important. If you are nauseous or vomiting, start with small sips of water every 10-15 minutes and increase astolerated. You can try sucking an ice cube too. If tolerating, you can try pedialyte or Gatorade, or flat sprite or eron-malou. Start slowly and increase as you are able to. Instead of meals, try smaller, more frequent snacks. Try eating bland foods like crackers, toast, rice, and applesauce. Avoid spicy, greasy or fried foods and dairy containing foods. Even if you aren't feeling hungry due to lack of smell or taste, it is important to try to take in some food when you are able. After drinking and eating, rest in an upright position for up to two hours as needed to help decrease nauseous feelings. Try closing your eyes, avoid moving and watching TV. Avoid strong odors that can make you feel more nauseated. When to seek emergency medical attention Look for emergency warning signs for COVID-19. If having any of these symptoms, seek emergency medical care immediately: Trouble breathing Persistent pain or pressure in the chest New confusion Inability to wake or stay awake Bluish lips or face *This list is not all possible symptoms. Please call your medical provider for any other symptoms that are severe or concerning to you. documented in this [facility] Note Attestation signed by Emily Jacobs MD at 06/21/2022 9:35 AM I reviewed and agree with the care provided by the resident/CNM/GABRIEL during the visit including the patient's medical history, the resident's findings in the physical exam, patient's diagnosis and treatment plan. Department of Obstetrics and Gynecology [facility] Discharge Summary Admission on 06/19/2022 12:39 PM Lillian Drake is a 36 y.o. at 32w3d who was admitted as a transport from OSH for tPTL in the setting of Di/Di twins. She received BMZx2 and tocolysis at OSH prior to transport. On arrival, patient was michelle q2-3mins and made change from closed to 1cm. She got an epidural which was eventually turned off. Ancef was given for GBS prophylaxis. Contractions began to space out and patient remained 1cm. Epidural was turned off and patient remained comfortable. FHT of both baby A and baby B were cat I during admission. On hospital day #1, patient remained comfortable and was stable for discharge home. She will follow-up with her primary OB doctor in [place]. Meds: Medication List START taking these medications PNV Folic Acid + Iron 27-1 MG Tabs Take 1 tablet by mouth daily valACYclovir 1 g tablet Commonly known as: Valtrex Take 2 tablets by mouth 2 times daily CONTINUE taking these medications famotidine 20 MG tablet Commonly known as: PEPCID Take 1 tablet by mouth 2 times daily as needed (abdominal pain) raNITIdine 150 MG tablet Commonly known as: ZANTAC STOP taking these medications fenofibrate 160 MG tablet Commonly known as: TRIGLIDE ibuprofen 800 MG tablet Commonly known as: ADVIL;MOTRIN meloxicam 15 MG tablet Commonly known as: MOBIC naproxen 500 MG tablet Commonly known as: Naprosyn ondansetron 4 MG disintegrating tablet Commonly known as: ZOFRAN-ODT promethazine 12.5 MG tablet Commonly known as: PHENERGAN ASK your doctor about these medications busPIRone 15 MG tablet Commonly known as: BUSPAR TAKE 1 TABLET BY MOUTH 3 TIMES DAILY NONFORMULARY PARoxetine 30 MG tablet Commonly known as: PAXIL Take 1 tablet by mouth every morning Discharge to: Home Discharge date: 06/20/22 Discharge Dx: tPTL, Di/Di twin gestation, FGR twin A Follow up appointment with your doctor/social media intern - Keep next scheduled appointment Activity - Normal Activity Call your doctor/social media intern if you have: - leaking fluid - vaginal bleeding - regular contractions: More than 6 contractions in one hour - decreased movement - worsening abdominal (belly) pain - headache, blurry vision, increased swelling, upper abdominal pain Laura Márquez DO on 06/20/2022 at 2:24 [facility] Discharge instructions* Discharge Instructions* Laura Márquez DO - 06/20/2022 2:19 PM EDT Follow up appointment with your doctor/social media intern - Keep next scheduled appointment Activity - Normal Activity Call your doctor/social media intern if you have: - leaking fluid - vaginal bleeding - regular contractions: More than 6 contractions in one hour - decreased movement - worsening abdominal (belly) pain - headache, blurry vision, increased swelling, upper abdominal pain If you are going home with contractions that are uncomfortable/painful- we recommend these coping strategies: rhythmic breathing, hydrotherapy, imagery or visualization, gentle massage, walking and changing your position. Treatment Verification: Lillian Drake was assessed on Labor and Delivery for a related visit on 06/20/22. Laura Márquez DO [facility] documented [facility] this [facility] Work Phone: [phone] History of Present illness Narrative* Laura Márquez DO - 06/20/2022 2:17 PM EDT Discussed with patient and she is certain that she got her second dose of BMZ yesterday around 1130just prior to transport. Also found documentation of this in her transfer records from OSH. No additional BMZ given while here at [facility]. * Andre Mac DO - 06/20/2022 6:06 AM EDT Images from the original note were not included. Maternal Medicine Service Resident Progress Note 06/20/2022 6:06 AM 06/19/2022 Hospital Day: 2 Lillian Drake, 36 y.o. 32w3d Patient has been seen and examined. Patient states she was able to sleep and not feeling contractions currently. She has epidural off and was able to eat overnight. No concerns today. Positive movement Negative vaginal bleeding Negative LOF Negative Contractions Vitals: 06/19/22 1915 06/19/22 2334 06/20/22 0142 06/20/22 0445 BP: 123/72 108/75 Pulse: (!) 125 (!) 107 (!) 108 (!) 102 Temp: SpO2: 96% Weight: Height: Twin A: FHT: 150, moderate variability Accels: present Decels: rare spontaneous deceleration Contractions: irregular, every 10-15 minutes Twin B FHT: 130, moderate variability Accels: present Decels: absent Physical Exam: Gen: NAD HEENT: Normocephalic, Atraumatic Resp: No increased work of breathing, good air exchange Card: RRR Abdomen: Soft, gravid, NTND, no rebound, no guarding; negative fundal tenderness Ext: No LE edema, no calf tenderness or swelling Medications: Current Facility-Administered Medications Medication Dose Route Frequency Provider Last Rate Last Admin sodium chloride flush 0.9 % injection 5-40 mL 5-40 mL IntraVENous BID Silvana Guillaume DO sertraline (ZOLOFT) tablet 150 mg 150 mg Oral Daily Jaswinder Maher, DO 150 mg at 06/19/222002 sodium chloride flush 0.9 % injection 10 mL 10 mL IntraVENous 2 times per day Jaswinder Maher DO sodium chloride flush 0.9 % injection 10 mL 10 mL IntraVENous PRN Jaswinder Maher DO 0.9 % sodium chloride infusion IntraVENous PRN Jaswinder Maher DO ondansetron (ZOFRAN-ODT) disintegrating tablet 4 mg 4 mg Oral Q8H PRN Jaswinder Maher DO Or ondansetron (ZOFRAN) injection 4 mg 4 mg IntraVENous Q6H PRN Jaswinder Maher, DO acetaminophen (TYLENOL) tablet 650 mg 650 mg Oral Q4H PRN Jaswinder Maher, DO 650 mg at 06/19/222112 ropivacaine 0.2% in sodium chloride 0.9% 200mL (OB) epidural 8 mL/hr Epidural Continuous MAURICIO Reinoso CRNA And ropivacaine 0.2% in sodium chloride 0.9% (OB) epidural syringe Epidural Continuous MAURICIO Reinoso CRNA naloxone 0.4 mg in 10 mL sodium chloride syringe IntraVENous PRN MAURICIO Reinoso CRNA lactated ringers bolus 1,000 mL IntraVENous PRN Jaswinder Maher DO oxytocin (PITOCIN) 30 units in 500 mL infusion Override Pull erythromycin (ROMYCIN) 5 MG/GM ophthalmic ointment phytonadione (VITAMIN K) 1 MG/0.5ML injection citric acid-sodium citrate (BICITRA) 500-334 MG/5ML solution hydrOXYzine pamoate (VISTARIL) capsule 25 mg 25 mg Oral TID PRN Jaswinder Maher, DO 25 mg at 06/20/22 0044 Assessment/Plan: Lillian Drake is a 36 y.o. female 32w3d tPTL - Presented to OSH on 06/18 with contractions every 2-3 minutes and uncomfortable; transferred here due to GA - S/p BMZ x2 on 06/18-06/19 - SVE last /-3 on 06/19 at 2230 - T overall category I for both twins, contractions every 10-15 minutes on toco - Patient not feeling contractions this AM, comfortable without epidural - Plan for PCD if patient makes cervical change to 2-3 cm Di/Di Twins FGR Twin A Polyhydramnios Twin B - Follows with [facility] - Growth US (06/09): Twin A: EFW 1273g, 20%ile; AC 2%ile, normal UAD Twin B: EFW 1554g, 40%ile; AC 40%ile - Twin A cephalic, Twin B transverse on admission - Patient desires PCD if delivery indicated Depression - Mood stable this AM - Continue Zoloft 150 mg daily Hx Cold Sore - Denies any history of genital outbreaks - SSE negative for lesions on admission Hx PTD - G1 at 34w due to spontaneous delivery - Not on progesterone Rh Negative - S/p Rhogam at 28 weeks IUP @ 32w3d - Dating by First Tri US - Vtx/Transverse on 06/19 - MonitorinhrTID - Diet:CLD - BMZ x2 on 06/18-06/19 Further plan pending d/w attending. ANDRE MAC DO 06/20/2022, 6:06 AM Associated attestation - Emily Jacobs MD - 06/20/2022 12:36 PM EDT I independently saw and evaluated the patient. I agree with the findings and plan of care as documented in the resident's note. 36 yr old at 32 3/7 GA with the following: Threatened labor stable and no further cervical change wanting to be discharged s/p BMZ x 2on 06/18 and 06/19 Cat 1 x 2 tracing and doing well Di/Di twins FGR Twin A and polyhydramnios Twin B Cat 1 tracing Depression stable History of cold sore Prior PTD not on progesterone currently Discussed given decreased frequency of contractions and stability okay for discharge will send baseline abruption labs as well to ensure no issues prior to discharge. Follow up as instructed Oz and Dr. Thomas is aware of plan I spent 15 minutes in the visit today on the floor reviewing the chart, discussing the case with the residency staff and nursing Emily Jacobs MD * MAURICIO Rosa CRNA - 06/20/2022 2:10 AM EDT Patient up to bathroom without difficulty Patient denies pain at this time Discussed leaving epidural turned off and would turn on if pain returns Patient agrees with this plan Olimpia Pino CRNA * MAURICIO Rosa CRNA - 06/19/2022 10:04 PM EDT Patient complaint of not being able to eat Discussed that patients do not eat with an epidural infusing. Patient verbalized understanding. Decision to turn Epidural off for 4 hours, patient can eat Reevaluate at in 4 hours the need to resume Epidural Discussed with Dr. Barry Pino CRNA * Jaswinder Maher DO - 06/19/2022 6:58 PM EDT SVE at this time unchanged, patient comfortable with epidural. Tachycardic due to having BP treatedby anesthesia, overall asymptomatic. Cat I/Cat I. Will advance to [facility] and continue to closely monitor. Patient desires permanent sterilization and BTL papers were signed. SVE at this time /80/-3. BSUS twin A vertex and B transverse maternal right. Patient uncomfortablebut also irritated and starving from being NPO over last 2 days. Evaluated patient at bedside and has remained tachycardic but patient is very anxious, overall asymptomatic. While talking with patient and reassuring her, HR goes down to 100. Will give 1L IVF. EKG sinus tachycardia. Discussion with Dr. Jovel and anesthesia. Will turn off epidural for 4 hours and allow patient to eat meal at thistime in hopes of helping with anxiety and frustration. documented in this [facility] Work Phone: [phone] 278-744103-20-2022 Hospital Discharge instructions Patient Education 12/20/2021 15:48:41 Vomiting and Diarrhea, Nonspecific (Adult) Nonspecific Vomiting and Diarrhea (Adult) Vomiting and diarrhea can have many causes, including: Helping your body get rid of harmful substances Gastroenteritis caused by viruses, parasites, bacteria, or toxins. Allergy to or side effect of a food or medicine Severe stress or worry (anxiety) Other illnesses It is often hard to pinpoint an exact cause, even with testing. Vomiting and diarrhea often go awaywithin a day or two without problems. If they continue, though, they can lead to too much loss of fluid (dehydration). This can be serious if not treated. Home care Medicines You may use acetaminophen or NSAID medicines like ibuprofen or naproxen to control fever, unless another medicine was prescribed. If you have chronic liver or kidney disease, talk with your healthcare provider before using these medicines. Also talk with your provider if you've had a stomach ulcer or gastrointestinal bleeding. Don't give aspirin to anyone under 18 years of age who is ill with a fever because it may cause severe disease or . Don't use NSAID medicines if you are already taking one for another condition (like arthritis) or are on aspirin (such as for heart disease or after a stroke) Ddlv-ziq-gelermg medicines for diarrhea, nausea, and vomiting are generally OK unless you have bleeding, fever, or severe abdominal pain. General care If symptoms are severe, rest at home for the next 24 hours, or until you are feeling better. Washing your hands with soap and water, or using alcohol-based hand chief gauger is the best way to stop the spread of infection. Wash your hands after touching anyone who is sick. Wash your hands after using the toilet and before meals. Clean the toilet after each use. Dry your hands with a single use towel. Caffeine, tobacco, and alcohol can make the diarrhea, cramping, and pain worse. Remember, caffeine not only is in coffee, but also is in chocolate, some energy drinks, and teas. Diet Water and clear liquids are important so you don't get dehydrated. Drink a small amount at a time. Don't guzzle down the drinks. That may increase your nausea, make cramping worse, and cause the drinks to come back up. Sports drinks may also help if you are healthy and not too dehydrated. They have too much sugar andnot enough electrolytes and can sometimes make things worse. Also, don't drink beverages that are too acidic, like orange juice and grape juice. If you are very dehydrated, commercially available products called oral rehydration solutions are best. Food Don't force yourself to eat, especially if you have cramps, diarrhea, or vomiting. Eat just a little at a time, and then wait a few minutes before you try to eat more. Don't eat fatty, greasy, spicy, or fried foods. Don't eat dairy products if you have diarrhea. They can make it worse. During the first 24 hours (the first full day), follow the diet below: Beverages: Oral rehydration solutions, sports drinks, soft drinks without caffeine, mineral water, and decaffeinated tea and coffee Soups: Clear broth, consomm , and bouillon Desserts: Plain gelatin, popsicles, and fruit juice bars During the next 24 hours (the second day), you may add the following to the above if you are better. If not, continue what you did the first day: Hot cereal, plain toast, bread, rolls, crackers Plain noodles, rice, mashed potatoes, chicken noodle or rice soup Unsweetened canned fruit (avoid pineapple), bananas Limit fat intake to less than 15 grams per day by avoiding margarine, butter, oils, mayonnaise, sauces, gravies, fried foods, peanut butter, meat, poultry, and fish. Limit fiber. Avoid raw or cooked vegetables, fresh fruits (except bananas) and bran cereals. Limit caffeine and chocolate. No spices or seasonings except salt. During the next 24 hours: Gradually resume a normal diet, as you feel better and your symptoms improve. If at any time your symptoms start getting worse again, go back to clear liquids until you feel better. Food preparation If you have diarrhea, you should not prepare food for others. When preparing foods, wash your handsbefore and after. Wash your hands or use alcohol-based chief gauger after using cutting boards, countertops, and knives that have been in contact with raw food. Dry your hands with a single use towel. Keep uncooked meats away from cooked and vhmfs-xj-nhi foods. Follow-up care Follow up with your healthcare provider, or as advised. Call if you don't get better in the next 2 to 3 days. If a stool (diarrhea) sample was taken, or cultures done, you will be told if they are positive, or if your treatment needs to be changed. You may call as directed for the results. If X-rays were taken, you will be notified of any new findings that may affect your care Call 911 Call 911 if any of these occur: Trouble breathing Chest pain Confusion Severe drowsiness or trouble awakening Fainting or loss of consciousness Rapid heart rate Seizure Stiff neck Severe weakness, dizziness, or lightheadedness When to seek medical advice Call your healthcare provider right away if any of these occur: Bloody or black vomit or stools Severe, steady abdominal pain or any abdominal pain that is getting worse Severe headache or stiff neck An inability to hold down even sips of liquids for more than 12 hours Vomiting that lasts more than 24 hours Diarrhea that lasts more than 24 hours Fever of 100.4 F (38.0 C) or higher, or as directed by your healthcare provider Yellowish color to your skin or the whites of your eyes Signs of dehydration, such as dry mouth, little urine (less than every 6 hours), or very dark urine [id number] [employer]. [address] [place] [address], MARCUS Hernandez [address]. All rights reserved. This information is not intended as a substitute for professional medical care. Always follow yourhealthcare professional's instructions. Follow Up Care 12/20/2021 14:06:01 With:ROGER COHEN MD Address: [address] [place] [address] [place] [address]- When:2-4 days [facility] 10-18-2021 History of Present illness Narrative* Heather Fajardo RT(R) - 07/20/2021 9:10 AM EDT Radiology Service Progress Note PATIENT NAME: Lillian Fiore DATE OF SERVICE: July 20, 2021 TIME: 8:59 AM PATIENT IDENTITY VERIFICATION COMPLETED USING TWO (2) IDENTIFIERS: Name and Date of confirmedby patient verbally. FALL SCREENING: Has the patient had 2 falls in the last year or 1 fall with injury or currently using an Ambulatory Assistive Device (Walker, Cane, Wheelchair, Crutches, etc.)? No PATIENT GENDER DATA: Female. status: : No status: NO. PATIENT RELEVANT IMPLANT DATA REVIEWED: Not Applicable RADIOLOGY DEPARTMENT: General X-ray: Exam(s) Completed: Spine X-Ray(s): Lumbar AP / LAT / L5-S1 PERIPHERAL IV DATA: Not applicable SIGNED BY: RT Rohan(R) July 20, 2021 8:59 AM [facility] Discharge instructions* Instructions* Nicolás Calderón MD - 07/10/2021 Please return to the emergency Department immediately for new or worsening symptoms or any new concerns. Please follow-up with your primary care doctor in the next 2-3 days. Please call tomorrow to arrange follow-up as soon as possible with gastroenterology, general surgery, and CHILD PROTECTIVE SERVICES SOCIAL WORKER for further evaluation of symptoms. documented in this [facility] Work Phone: [phone]) 422-313208-09-2021 Hospital Discharge instructions* Instructions* Angie Alejandro MD - 05/11/2021 Take Naprosyn and Flexeril for discomfort. Use a heating pad at low heat to the painful areas. Schedule an appointment with your primary care physician in 1 week. If you develop neurologic symptoms such as losing control of your bowels or bladder return to the emergency department. * Attachments The following attachments cannot be sent through Care Everywhere. * Back: Strain (Moroccan) * Back: Preventing Injuries (Moroccan) * Back Pain: Relief: General Info (Moroccan) documented in this [facility] Work Phone: [phone]) 522-153810-25-2018 History of Past illness Narrative* Problem Noted Date Resolved Date History of depression 07/27/2018 03/16/2019 Overview: 07/27/2018Pt has a history of depression/anxiety/panic attacks since 2005. She currently takes Paxil prescribed by Dr. Dr Becerra . She is made aware that Paxil is a Category D medication in pergnancy and advised to call Dr Becerra to discuss medication management of her depression during . Discussed increased risks of depression during and and importance of reporting the development or worsening of symptoms should they occur. Patient denies any history of depression. Pt denies ever having any suicidal thoughts or tendencies or thoughts of hurting others. TKRN Family history of congenital heart defect 201703/16/2019 Overview: 07/27/2018 Pt. has two first first cousins born with a hole in heart. She has a first cousin with mental retardation. TKRN Tobacco use during , antepartum 018 09/19/2019 Overview: 07/27/2018Pt smokes 2 cigarettes a day. Discussed risks of smoking during . Advised pt to quit. TKRN History of drug abuse 07/27/2018 03/16/2019 Overview: 07/27/2018Patient has a history of polysubstance abuse. She states she has abused Adderal and has used Cocaine in the past. She denies any drug abuse for the past 3 years. States she has a sponsor, but does not attend any counseling or support groups. I have discussed the benefits of support groups. TKRN History of delivery, currently 07/27/2018 03/16/2019 Overview: 07/27/2018Patient has a history of delivery at 34 weeks with her 1st . She did 17P progesterone injections with subsequent and delivered at 39 weeks. TKRN Nausea and vomiting in 07/27/2018 03/16/2019 Overview: 07/27/2018Patient is complaining of nausea in . Denies vomiting. Advised patient to call/come in if she is unable to keep any food or fluids down in a 24-hour period.TKRN Patient requested diagnostic testing 07/27/2018 03/16/2019 Overview: 07/27/2018Patient desires nuchal ultrasound. Considering CF carrier screening testing. TKRN with uncertain dates, antepartum 07/2703/16/2019 Overview: 07/27/2018Patient states LMP 04/2018. History of irregular menses. Negative test 07/13/2018. Positive test 07/19/2018. TKRN Irritable bowel syndrome with both constipation and diarrhea 03/30/2018 06/27/2020 Other migraine, not intractable, without status migrainosus 03/30/2018 06/27/2020 Adjustment disorder with mixed anxiety and depre ssed mood 09/14/2016 03/30/2018 Recurrent major depressive disorder, in partial remission 11/19/2015 06/27/2020 Rh negative state in antepartum period 5 03/16/2019 High risk due to history of la bor 06/26/2015 03/30/2018 Overview: Consult [facility] for 17-OH in - JV RUQ abdominal pain 11/21/2014 06/26/2015 Abdominal pain 07/14/2012 03/19/2015 Overview: BHCG quant NEG 07/12/12. Pt sent to ER for evulation Polycystic ovaries 06/27/2008 03/19/2015 Overview: Meets criteria - amenorrhea, DHEA-S elevated, other labs ok But hasn't had other clinical signs (obesity, acne, hair growth) SECONDARY AMENORRHEA 06/06/2008 03/19/2015 RECURR DEPR PSYCHOS-UNSP 015 PANIC DISORDER WITHOUT AGORAPHOBIA 06/26/2015 documented as of this encounter (statuses as of 06/23/2022) [facility] History of Past illness Narrative* Problem Noted Date Resolved Date History of depression 07/27/2018 03/16/2019 Overview: 07/27/2018Pt has a history of depression/anxiety/panic attacks since 2005. She currently takes Paxil prescribed by Dr. Dr Becerra . She is made aware that Paxil is a Category D medication in pergnancy and advised to call Dr Becerra to discuss medication management of her depression during . Discussed increased risks of depression during and and importance of reporting the development or worsening of symptoms should they occur. Patient denies any history of depression. Pt denies ever having any suicidal thoughts or tendencies or thoughts of hurting others. TKRN Family history of congenital heart defect 201703/16/2019 Overview: 07/27/2018 Pt. has two first first cousins born with a hole in heart. She has a first cousin with mental retardation. TKRN Tobacco use during , antepartum 018 09/19/2019 Overview: 07/27/2018Pt smokes 2 cigarettes a day. Discussed risks of smoking during . Advised pt to quit. TKRN History of drug abuse 07/27/2018 03/16/2019 Overview: 07/27/2018Patient has a history of polysubstance abuse. She states she has abused Adderal and has used Cocaine in the past. She denies any drug abuse for the past 3 years. States she has a sponsor, but does not attend any counseling or support groups. I have discussed the benefits of support groups. TKRN History of delivery, currently 07/27/2018 03/16/2019 Overview: 07/27/2018Patient has a history of delivery at 34 weeks with her 1st . She did 17P progesterone injections with subsequent and delivered at 39 weeks. TKRN Nausea and vomiting in 07/27/2018 03/16/2019 Overview: 07/27/2018Patient is complaining of nausea in . Denies vomiting. Advised patient to call/come in if she is unable to keep any food or fluids down in a 24-hour period.TKRN Patient requested diagnostic testing 07/27/2018 03/16/2019 Overview: 07/27/2018Patient desires nuchal ultrasound. Considering CF carrier screening testing. TKRN with uncertain dates, antepartum 07/2703/16/2019 Overview: 07/27/2018Patient states LMP 04/2018. History of irregular menses. Negative test 07/13/2018. Positive test 07/19/2018. TKRN Irritable bowel syndrome with both constipation and diarrhea 03/30/2018 06/27/2020 Other migraine, not intractable, without status migrainosus 03/30/2018 06/27/2020 Adjustment disorder with mixed anxiety and depre ssed mood 09/14/2016 03/30/2018 Recurrent major depressive disorder, in partial remission 11/19/2015 06/27/2020 Rh negative state in antepartum period 5 03/16/2019 High risk due to history of la bor 06/26/2015 03/30/2018 Overview: Consult [facility] for 17-OH in - JV RUQ abdominal pain 11/21/2014 06/26/2015 Abdominal pain 07/14/2012 03/19/2015 Overview: BHCG quant NEG 07/12/12. Pt sent to ER for evulation Polycystic ovaries 06/27/2008 03/19/2015 Overview: Meets criteria - amenorrhea, DHEA-S elevated, other labs ok But hasn't had other clinical signs (obesity, acne, hair growth) SECONDARY AMENORRHEA 06/06/2008 03/19/2015 RECURR DEPR PSYCHOS-UNSP 015 PANIC DISORDER WITHOUT AGORAPHOBIA 06/26/2015 documented as of this encounter (statuses as of 08/03/2022) [facility] History of Past illness Narrative* Problem Noted Date Resolved Date History of depression 07/27/2018 03/16/2019 Overview: 07/27/2018Pt has a history of depression/anxiety/panic attacks since 2005. She currently takes Paxil prescribed by Dr. Dr Becerra . She is made aware that Paxil is a Category D medication in pergnancy and advised to call Dr Becerra to discuss medication management of her depression during . Discussed increased risks of depression during and and importance of reporting the development or worsening of symptoms should they occur. Patient denies any history of depression. Pt denies ever having any suicidal thoughts or tendencies or thoughts of hurting others. TKRN Family history of congenital heart defect 201703/16/2019 Overview: 07/27/2018 Pt. has two first first cousins born with a hole in heart. She has a first cousin with mental retardation. TKRN Tobacco use during , antepartum 018 09/19/2019 Overview: 07/27/2018Pt smokes 2 cigarettes a day. Discussed risks of smoking during . Advised pt to quit. TKRN History of drug abuse 07/27/2018 03/16/2019 Overview: 07/27/2018Patient has a history of polysubstance abuse. She states she has abused Adderal and has used Cocaine in the past. She denies any drug abuse for the past 3 years. States she has a sponsor, but does not attend any counseling or support groups. I have discussed the benefits of support groups. TKRN History of delivery, currently 07/27/2018 03/16/2019 Overview: 07/27/2018Patient has a history of delivery at 34 weeks with her 1st . She did 17P progesterone injections with subsequent and delivered at 39 weeks. TKRN Nausea and vomiting in 07/27/2018 03/16/2019 Overview: 07/27/2018Patient is complaining of nausea in . Denies vomiting. Advised patient to call/come in if she is unable to keep any food or fluids down in a 24-hour period.TKRN Patient requested diagnostic testing 07/27/2018 03/16/2019 Overview: 07/27/2018Patient desires nuchal ultrasound. Considering CF carrier screening testing. TKRN with uncertain dates, antepartum 07/2703/16/2019 Overview: 07/27/2018Patient states LMP 04/2018. History of irregular menses. Negative test 07/13/2018. Positive test 07/19/2018. TKRN Irritable bowel syndrome with both constipation and diarrhea 03/30/2018 06/27/2020 Other migraine, not intractable, without status migrainosus 03/30/2018 06/27/2020 Adjustment disorder with mixed anxiety and depre ssed mood 09/14/2016 03/30/2018 Recurrent major depressive disorder, in partial remission 11/19/2015 06/27/2020 Rh negative state in antepartum period 5 03/16/2019 High risk due to history of la bor 06/26/2015 03/30/2018 Overview: Consult [facility] for 17-OH in - JV RUQ abdominal pain 11/21/2014 06/26/2015 Abdominal pain 07/14/2012 03/19/2015 Overview: BHCG quant NEG 07/12/12. Pt sent to ER for evulation Polycystic ovaries 06/27/2008 03/19/2015 Overview: Meets criteria - amenorrhea, DHEA-S elevated, other labs ok But hasn't had other clinical signs (obesity, acne, hair growth) SECONDARY AMENORRHEA 06/06/2008 03/19/2015 RECURR DEPR PSYCHOS-UNSP 015 PANIC DISORDER WITHOUT AGORAPHOBIA 06/26/2015 documented as of this encounter (statuses as of 10/19/2022) [facility] Kevin [facility] Note Date/Time February 18, 2025 10:02 am [facility] Medical Records Department [address] [place] [address] Emergency Department Summary 02/18/25 MR#: [id number] Acct: [id number] Name: LILLIAN DRAKE Rep #:[id number] : 1985 39 From: Kevin Heart DO PCP: Dr. Jennifer Werner MD Status:REG ER Location: ED HPI History of Present Illness Chief Complaint: Other, Pain/Inj Narrative Narrative: Patient is a 39-year-old female past medical history of asthma, depression, migraines who presented to the emergency department chief complaint of back pain. Patient states that over the last several weeks she has done a lot of moving heavy items as she was moving to a new house. She states that about 3 days ago she was carrying groceries in and bent over to warehouse picker her child and noted that she felt a pop. She states that progressively over the last few daysthe pain in her lower back had been progressing she states that it shoots down both of her legs. She states that she has been urinating normally for self and having normal bowel movements. Patient states that she has been taking [id number] as well as rotating Tylenol and there without much relief. [facility] Medical History Dyspareunia depression History of premature rupture of membranes (PPROM) History of pre-term labor Polyhydramnios Asthma Anxiety Polyhydramnios affecting IUGR (intrauterine growth restriction) Anxiety Former smoker Hyperemesis Vaginal bleeding during Dichorionic diamniotic twin Rh negative status during Infertility Supervision of high risk , antepartum Marijuana use, episodic Concussion without loss of consciousness Cervical strain COVID-19 Depression Back pain Abnormal bruising Knee pain Chest pain Migraines Fatigue Shoulder pain Home Medications ?Medication ?Instructions ?Recorded ?Last Taken ?Type sertraline 100 mg tablet (Zoloft) 150 mg PO DAILY Chec k with primary 06/18/22 06/24/22 10:00 History doctor lithium carbonate 300 mg 250 mg PO DAILY 11/22/24 Unk nown History tablet,extended release cyclobenzaprine 10 mg tablet 10 mg PO TID PRN muscle s pasm #30 01/07/25 Unknown Rx tabs naproxen 500 mg tablet 500 mg PO BID PRN pain #30 t abs 01/07/25 Unknown Rx cyclobenzaprine 10 mg tablet 10 mg PO TID PRN muscle s pasm #30 01/30/25 Unknown Rx tabs Allergy/AdvReac Type Severity Reaction Status Date / Time dicyclomine (From Bentyl) Allergy migraine Verified 02/18/25 08:28 Penicillins Allergy Rash Verified 02/18/25 08:28 Surgical History delivery delivered H/O dilation and curettage Social History adopted: No household members: significant other and children number of children: 2 current occupational status: employed 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; [employer] Smoking Status: Former smoker alcohol intake: current details: occasionally; not while substance use type: marijuana caffeine: Yes what type of physical activity do you participate in: none seatbelt use: always do you feel safe at home: Yes additional social history: [employer] [facility] ROS ED ROS Narrative Constitutional: Denies any fevers, chills, headaches colitis, dizziness Eyes: Denies change in vision double vision blurry vision Cardiovascular: Denies chest pain or palpitations Respiratory: Denies coughing wheezing shortness of breath Abdomen: Denies abdominal pain nausea vomit diarrhea states that she is having normal bowel movements for herself : States that she is urinating normally for self denies any painful urination hematuria or polyuria Neurological: Denies numbness, scum tingling Musculoskeletal: Complains of back pain as noted above Skin: Denies any rashes or lesions EXAM Physical Exam Narrative Exam Narrative: General: Patient lying in bed rest comfortably did not appear to be in acute distress Head: Atraumatic, normocephalic Eyes: PERRL bilaterally, EOMI bilateral, no conjunctival injection noted Neck: Soft, supple, trachea midline Cardiovascular: Regular in rhythm no murmurs gallops rubs noted Respiratory: Clear to auscultation bilaterally Abdomen: Soft, nondistended, nontender to palpation Musculoskeletal: No tenderness palpation midline of thoracolumbar spine Extremities: +5/5 strength noted in the bilateral upper and lower extremity, radial pulses +2/4 in the bilateral extremities, no pedal edema no exam Neurological: Patient follow commands that she was at [facility] years 2024 Skin: Warm, dry, intact no rashes lesions noted Const Vital Signs: 02/18/25 08:29 02/18/25 09:34 Temperature 97.9 F Temperature Source Oral Pulse Rate 68 Respiratory Rate 16 Respiratory Pattern Normal Blood Pressure 104/44 L Blood Pressure Mean 64 Pulse Ox 99 Oxygen Delivery Method Room Air MDM MDM MDM Narrative Medical decision making narrative: Patient is a 39-year-old female who presented to the emergency department chief complaint of back pain. On the differential diagnosis includes but not limited to musculoskeletal strain, herniated disc, compression fracture, spinal epiduralabscess although feel this less likely as she states that she has never had any history of IV drug use. Once workup is obtained reviewed she will be reevaluated. Patient's will be given Norflex and Toradol. Patient's x-ray reviewed by myself and by radiology of her lumbar spine which did not show any acute fractures. Reevaluation patient patient feeling better she would like to go home at this point time. Patient states that she has cyclobenzaprine at home that she can use and does not need a prescription for this. She is advised to continue to rotate Tylenol and ibuprofen [id number]. She is vies follow-up with primary care physician return with worsening symptoms and concerns. She is agreeable to plan all question concerns answered she is discharged home in stable condition. Radiography Diagnostic Testing: Clinical Impression(s) from Imaging Studies Lumbar Spine X-Ray 02/18/25 08:53 IMPRESSION: No acute fracture. Reading Location: [facility] Discharge Plan Triage Chief Complaint: Other, Pain/Inj Other Complaint: Back ED Provider: Kevin Heart Dx/Rx/DC Orders Clinical Impression: Back pain, Musculoskeletal strain Prescriptions: No Action cyclobenzaprine 10 mg tablet 10 mg PO TID PRN (Reason: muscle spasm) Qty: 30 2RF naproxen 500 mg tablet 500 mg PO BID PRN (Reason: pain) Qty: 30 2RF Rx Instructions: administer with food or milk sertraline [Zoloft] 100 mg tablet 150 mg PO DAILY lithium carbonate 300 mg tablet extended release 250 mg PO DAILY cyclobenzaprine 10 mg tablet 10 mg PO TID PRN (Reason: muscle spasm) Qty: 30 2RF Primary Care Provider: Jennifer Werner Referrals: [facility] Doctor,Out of [Non-Staff] - Activity Restrictions/Additional Instructions: Follow-up with your doctor in outpatient setting. Return for worsening symptomsor concerns. Rotate Tylenol and ibuprofen [id number] when you do this youcan take something every 3 hours. Use the Flexeril/cyclobenzaprine that you have at home for spasms. Do not operate anything under the influence of this medication as it will make you sleepy and drowsy. Print Language: Moroccan Disposition Disposition: Home, Self Care What to do if you have Problems For any increased pain, shortness of breath, bleeding, nausea or vomiting, chestpain, or any unexpected problems, contact your Primary Care Provider. Call [facility] ([phone]) or report to the closest Emergency Room. Call 911 if necessary. 02/18/25 1002 <Electronically signed by Kevin Heart DO> Cosigner Signature (if applicable): CC: Dr. Jennifer Werner MD ~ Signed [facility] Work Phone: Evaluation + Plan note No data available for this section [facility] Evaluation note* Diagnosis Strain of lumbar region, initial encounter- Primary documented in this encounter [facility] Work Phone: Evaluation note* Diagnosis Abdominal pain, epigastric- Primary Pelvic pain documented in this encounter [facility] Work Phone: Evaluation noteNo assessment information available [facility] Work Phone: Evaluation note* Diagnosis Onset Date Resolution Status Dichorionic diamniotic twin acute Hypokalemia acute Infertility acute Marijuana use, episodic acut e Nausea/vomiting in acute acute Rh negative status during acute Supervision of high risk , antepartum acute Depression chronic Dichorionic diamniotic twin acute Hypokalemia acute Infertility acute Marijuana use, episodic acut e Nausea/vomiting in acute acute Rh negative status during acute Supervision of high risk , antepartum acute Depression [facility] Work Phone: Evaluation note* Diagnosis Onset Date Resolution Status Dichorionic diamniotic twin acute Hypokalemia acute Infertility acute Marijuana use, episodic acut e Nausea/vomiting in acute acute Rh negative status during acute Supervision of high risk , antepartum acute Depression chronic Dichorionic diamniotic twin acute Hypokalemia acute Infertility acute Marijuana use, episodic acut e Nausea/vomiting in acute acute Rh negative status during acute Supervision of high risk , antepartum acute Depression chronic Dichorionic diamniotic twin acute Hypokalemia acute Infertility acute Marijuana use, episodic acut e Nausea/vomiting in acute acute Rh negative status during acute Supervision of high risk , antepartum acute Vaginal bleeding during acute Depression chronic Cellulitis acute Dichorionic diamniotic twin acute Hypokalemia acute Infertility acute Marijuana use, episodic acut e Nausea/vomiting in acute acute Rh negative status during acute Supervision of high risk , antepartum acute Vaginal bleeding during acute Depression chronic Abdominal wall cellulitis ac mary ellen [facility] Work Phone: Evaluation note* Diagnosis Onset Date Resolution Status Dichorionic diamniotic twin acute Hypokalemia acute Infertility acute Marijuana use, episodic acut e Nausea/vomiting in acute acute Rh negative status during acute Supervision of high risk , antepartum acute Depression chronic Dichorionic diamniotic twin acute Hypokalemia acute Infertility acute Marijuana use, episodic acut e Nausea/vomiting in acute acute Rh negative status during acute Supervision of high risk , antepartum acute Depression chronic Dichorionic diamniotic twin acute Hypokalemia acute Infertility acute Marijuana use, episodic acut e Nausea/vomiting in acute acute Rh negative status during acute Supervision of high risk , antepartum acute Vaginal bleeding during acute Depression chronic Cellulitis acute Dichorionic diamniotic twin acute Hypokalemia acute Infertility acute Marijuana use, episodic acut e Nausea/vomiting in acute acute Rh negative status during acute Supervision of high risk , antepartum acute Vaginal bleeding during acute Depression chronic Abdominal wall cellulitis ac mary ellen Cellulitis acute Dichorionic diamniotic twin acute Hypokalemia acute Infertility acute Marijuana use, episodic acut e Nausea/vomiting in acute acute Rh negative status during acute Supervision of high risk , antepartum acute Vaginal bleeding during acute Depression chronic [facility] Work Phone: Evaluation note* Diagnosis Onset Date Resolution Status Depression acute Dichorionic diamniotic twin acute Marijuana use, episodic acut e acute Rh negative status during acute Supervision of high risk , antepartum acute Hypokalemia resolved Nausea/vomiting in resolved Depression acute Dichorionic diamniotic twin acute Marijuana use, episodic acut e acute Rh negative status during acute Supervision of high risk , antepartum acute Hypokalemia resolved Nausea/vomiting in resolved Depression acute Dichorionic diamniotic twin acute Marijuana use, episodic acut e acute Rh negative status during acute Supervision of high risk , antepartum acute Abdominal wall cellulitis re solved Hypokalemia resolved Nausea/vomiting in resolved acute Abdominal wall cellulitis re solved Nausea/vomiting in resolved Anxiety acute Depression acute Dichorionic diamniotic twin acute Marijuana use, episodic acut e acute Rh negative status during acute Supervision of high risk , antepartum acute Anxiety acute Depression acute Dichorionic diamniotic twin acute Marijuana use, episodic acut e acute Rh negative status during acute Supervision of high risk , antepartum acute Anxiety acute Depression acute Dichorionic diamniotic twin acute Marijuana use, episodic acut e acute Rh negative status during acute Supervision of high risk , antepartum acute [facility] Work Phone: Evaluation note* Diagnosis Onset Date Resolution Status acute Abdominal wall cellulitis re solved Nausea/vomiting in resolved Anxiety acute Depression acute Dichorionic diamniotic twin acute Marijuana use, episodic acut e acute Rh negative status during acute Supervision of high risk , antepartum acute Anxiety acute Depression acute Dichorionic diamniotic twin acute Marijuana use, episodic acut e acute Rh negative status during acute Supervision of high risk , antepartum acute Anxiety acute Depression acute Dichorionic diamniotic twin acute Marijuana use, episodic acut e acute Rh negative status during acute Supervision of high risk , antepartum acute Abnormal glucose level acute Anxiety acute Depression acute Dichorionic diamniotic twin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 days Reason Comments Patient Update Orders Fibromyalgia flare u p Reason Comments Pain Reason Comments Patient Update Reason Comments Cough bodyaches, chills, s ore throat, fatigue and headache x 1 week Reason Comments Fibromyalgia Reason Comments Nausea x 3 days, fever, chi lls, bodyaches and headache x 2 days Reason Comments Refill Request Xanax Follow Up Reason Comments Missed Appointment No Show #1 Reason Comments Cough Headache, sore throa t, lower back tightness upper chest tightness x 2 days Reason Comments Results Reason Comments Depression Anxiety 7 Week Follow Up. Reason Comments Back Pain Reason Onset Date Comments Refill Request 02/25/2025 INFORMATION SOURCE (unrecogn ized section and content) DATE CREATED AUTHOR 05/13/2020 [facility] DATE CREATED AUTHOR AUTHOR'S ORGANIZ ATION 07/15/2021 [facility] [employer] [facility] [employer] DATE CREATED AUTHOR AUTHOR'S ORGANIZ ATION 07/03/2022 [facility] DATE CREATED AUTHOR AUTHOR'S ORGANIZ ATION 07/[facility]/2022 [facility] DATE CREATED AUTHOR AUTHOR'S ORGANIZ ATION 09/30/2022 [employer] [facility] DATE CREATED AUTHOR AUTHOR'S ORGANIZ ATION 12/29/2023 [facility] [place] DATE CREATED AUTHOR AUTHOR'S ORGANIZ ATION 01/02/2025 [facility] DATE CREATED AUTHOR AUTHOR'S ORGANIZ ATION 02/19/2025 [facility] DATE CREATED AUTHOR AUTHOR'S ORGANIZ ATION 03/19/2025 [facility] Ordered Prescriptions (unrec ognized section and content) Prescription Sig Dispensed Refills Start Date End Da te cyclobenzaprine (FLEXERIL) 10 MG tablet Take 1 tablet by mouth 3 times daily as needed for Muscle spasms 21 tablet 0 05/11/2021 05/21/2021 ondansetron (ZOFRAN-ODT) 4 MG disintegrating tablet Take 1 tablet by mouth 3 times daily as needed for Nausea or Vomiting 21 tablet 0 05/11/2021 naproxen (NAPROSYN) 500 MG tablet Take 1 tablet by mouth 2 times daily 60 tablet 0 05/11/2021 Prescription Sig Dispensed Refills Start Date End Da te famotidine (PEPCID) 20 MG tablet Take 1 tablet by mouth 2 times daily as needed (abdominal pain) 60 tablet 0 07/10/2021 Scheduled Active and Recently Administ ered Medications (unrecognized section and content) Medication Order 05/09/2021 05/10/2021 05/11/2021 0.9 % sodium chloride bolus (COMPLETED) 1,000 mL (15.7 mL/kg), Intravenous, at 2,000 mL/hr, Administer over 0.5 Hours, ONCE, On Tue05/11/21 at 1253, For 1 dose 1319 (New Bag - Prov ider: Salvador Momin RN)1400 (Stopped - Provider: Lencho Esteban RN) HYDROmorphone (DILAUDID) injection 1 mg (COMPLETED) 1 mg, Intravenous, ONCE, On Tue05/11/21 at 1253, For 1 dose, If oral and IV narcotics ordered, use oral first and only use IV if oral is ineffective or cannot take oral. Do Not give oral and IV within 1 hour of each other unless specifically ordered. 1314 (Given - Provid er: Salvador Momin RN) ketorolac (TORADOL) injection 30 mg (COMPLETED) 30 mg, Intravenous, ONCE, On Tue05/11/21 at 1253, For 1 dose, Do not administer for more than 5 days. 1313 (Given - Provid er: Salvador Momin RN) ondansetron (ZOFRAN) injection 4 mg (COMPLETED) 4 mg, Intravenous, ONCE, On Tue05/11/21 at 1253, For 1 dose 1313 (Given - Provid er: Salvador Momin RN) ondansetron (ZOFRAN) injection 4 mg (COMPLETED) 4 mg, Intravenous, ONCE, On Tue05/11/21 at 1436, For 1 dose 1512 (Given - Provid er: Lencho Esteban RN) Scheduled Medication Order 07/09/2021 07/10/2021 07/11/2021 0.9 % sodium chloride bolus (COMPLETED) 1,000 mL (15.2 mL/kg), IntraVENous, at 500 mL/hr, Administer over 2 Hours, ONCE, On Tue07/10/21 at 2004, For 1 dose 2225 (New Bag - Provider: Rachel Jacobo, RN) 0009 (Stopped - Provider: Jaycee Morales, MUMTAZ) morphine injection 4 mg (COMPLETED) 4 mg, IntraVENous, ONCE, On Tue07/10/21 at 2245, For 1 dose, If oral and IV narcotics ordered, use oral first and only use IV if oral is ineffective or cannot take oral. Do Not give oral and IV within 1 hour of each other unless specifically ordered. 2253 (Given - Provider: Rachel Jacobo, MUMTAZ) ondansetron (ZOFRAN) injection 4 mg (COMPLETED) 4 mg, IntraVENous, ONCE, On Tue07/10/21 at 2003, For 1 dose 2217 (Given - Provider: Jaycee Morales, MUMTAZ) Scheduled Medication Order 06/18/2022 06/19/2022 06/20/2022 vitamin 27-1 MG tablet 1 tablet 1 tablet, Oral, DAILY, First dose on 06/20/22 at 0930, Until Discontinued 09 (Due) sertraline (ZOLOFT) tablet 150 mg 150 mg, Oral, DAILY, First dose on 06/19/22 at 1430, Until Discontinued 2002 (Given - Provider: Lori Darnell RN) 1999 (Due - Provider: Gurvinder Carroll [facility]) sodium chloride flush 0.9 % injection 10 mL 10 mL, IntraVENous, EVERY 12 HOURS SCHEDULED (2 times per day), First dose on 06/19/22 at 2100, Until Discontinued 1939 (Not Given - Provider: Lori Darnell RN - Reason: Other) 0850 (Given - Provider: Serenity Guajardo RN)2100 (Due) sodium chloride flush 0.9 % injection 5-40 mL 5-40 mL, IntraVENous, 2 TIMES DAILY, First dose on 06/20/22 at 0900, Until Discontinued, For Line Patency: Peripheral IV = 5 mL; Midline or Central Line = 10 mL/lumen. If following IV push medication, administer flush at same rate as the IV push. Flush volume is determined by type of infusion therapy being given. For non-viscous solutions use: Peripheral IV = 5 mL Midline or Central Line = 10 mL/lumen For viscous solutions (i.e. blood components, parenteral nutrition, contrast media, or after obtaining blood sample) use: Peripheral IV = 10 mL Midline or Central Line = 20 mL/lumen 0900 (Due)2100 (Due) Continuous Medication Order 06/18/2022 06/19/2022 06/20/2022 ropivacaine 0.2% in sodium chloride 0.9% (OB) epidural syringe(Linked Group 1) Epidural, CONTINUOUS, Starting on 06/19/22 at 1445, PCEA patient controlled syringe Pt. Controlled Dose: 5 ml Lockout Interval: 10 min One Hour Limit: 15 mL, Labor and Delivery 1445 (Due) ropivacaine 0.2% in sodium chloride 0.9% 200mL (OB) epidural(Linked Group 1) 8 mL/hr, Epidural, CONTINUOUS, Starting on 06/19/22 at 1445, Until Discontinued, PCEA Basal Infusion, Labor and Delivery 1445 (Due) PRN Medication Order 06/18/2022 06/19/2022 06/20/2022 0.9 % sodium chloride infusion IntraVENous, at 5-250 mL/hr, PRN, if patient receiving piggyback infusions and maintenance fluids are not ordered OR KVO fluids to protect IV site / prevent frequent line interruptions/ long duration, Starting on 06/19/22 at 1408, For piggyback infusion, administer at same rate as piggyback for a total of 25 mL. Enter 25 mL into dose field and piggyback rate into rate field of order. If piggyback is infusing at a rate less than 100 mL/hr, enter 25 mL into dose field and 100 mL/hr into rate field of order. For KVO fluids, enter rate of 20 mL/hr or less into rate field of order. acetaminophen (TYLENOL) tablet 650 mg 650 mg, Oral, EVERY 4 HOURS PRN, Starting on 06/19/22 at 1408, Until Discontinued, Pain Mild (1-3), Pain Mild (1-3) or Fever greater than 100.5 F (38 C), Maximum dose of acetaminophen is 4000 mg from all sources in 24 hours. 2112 (Given - Provider: Lori Darnell RN) 901 (Given - Provider: Serenity Guajardo RN) hydrOXYzine pamoate (VISTARIL) capsule 25 mg 25 mg, Oral, 3 TIMES DAILY PRN, Starting on 06/19/22 at 2230, Until Discontinued, Itching 0044 (Given - Provid er: Lori Darnell RN) lactated ringers bolus 1,000 mL, IntraVENous, at 1,935.5 mL/hr, Administer over 31 Minutes, PRN, Give prior to epidural placement. May be repeated if a second epidural/spinal procedure is performed., Starting on 06/19/22 at 1503, Labor and Delivery metoclopramide (REGLAN) tablet 10 mg 10 mg, Oral, 3 TIMES DAILY PRN, Starting on 06/20/22 at 1227, Until Discontinued, headache 1356 (Given - Provid er: Serenity Guajardo RN) naloxone 0.4 mg in 10 mL sodium chloride syringe IntraVENous, PRN, Opioid Reversal, PRN if respiratory rate is less than 6 breaths per minute and patient is difficult to arouse., Starting on 06/19/22 at 1428, Notify provider STAT. Mix 9 mL of sodium chloride 0.9% with 0.4 mg (1 mL) of naloxone (NARCAN) in 10 mL syringe. (Note: dilution is 0.04 mg/mL) Give 0.08 mg (2 mL of special dilution), slow IV push, repeat up to 0.4 mg (10 mL) or until patient is responsive to physical stimulation and respiratory rate is equal to or greater than 6 breaths/min. Continue to observe, if no response within 3 minutes of administration of 0.4 mg (10 mL) total, repeat dose (0.4 mg as administered previously). Concentration 0.04 mg/mL, Labor and Delivery ondansetron (ZOFRAN) injection 4 mg(Linked Group 2) 4 mg, IntraVENous, EVERY 6 HOURS PRN, Starting on 06/19/22 at 1408, Until Discontinued, Nausea, Vomiting, Administer if oral route cannot be used. ondansetron (ZOFRAN-ODT) disintegrating tablet 4 mg(Linked Group 2) 4 mg, Oral, EVERY 8 HOURS PRN, Starting on 06/19/22 at 1408, Until Discontinued, Nausea, Vomiting sodium chloride flush 0.9 % injection 10 mL 10 mL, IntraVENous, PRN, Starting on 06/19/22 at 1408, Until Discontinued, Line Care, After every IV line use No Frequency Medication Order 06/18/2022 06/19/2022 06/20/2022 citric acid-sodium citrate (BICITRA) 500-334 MG/5ML solution 1 dose, Starting on 06/19/22 at 1934, Until 06/20/22 at 0744, Lori Darnell: cabinet override, Lori Darnell: cabinet override 1944 (Due) erythromycin (ROMYCIN) 5 MG/GM ophthalmic ointment Starting on 06/19/22 at 1933, For 1 dose, Lori Darnell: cabinet override 1944 (Due) oxytocin (PITOCIN) 30 units in 500 mL infusion Override Pull 1 dose, Starting on 06/19/22 at 1933, Until 06/20/22 at 0744, Lori Darnell: cabinet override, Lori Darnell: cabinet override 1944 (Due) phytonadione (VITAMIN K) 1 MG/0.5ML injection 1 dose, Starting on 06/19/22 at 1933, Until 06/20/22 at 0744, Lori Darnell: cabinet override, Lori Darnell: cabinet override 1944 (Due) Linked Groups Order Group 1: ropivacaine 0.2% in sodium chloride 0.9% 200mL (OB) epiduralJump to med 8 mL/hr, Epidural, CONTINUOUS, Starting on 06/19/22 at 1445, Until Discontinued
PCEA Basal Infusion
Labor and Delivery And ropivacaine 0.2% in sodium chloride 0.9% (OB) epidural syringeJump to med Epidural, CONTINUOUS, Starting on 06/19/22 at 1445
PCEA patient controlled syringe Pt. Controlled Dose: 5 ml Lockout Interval: 10 min One Hour Limit: 15 mL
Labor and Delivery Group 2: ondansetron (ZOFRAN-ODT) disintegrating tablet 4 mgJump to med 4 mg, Oral, EVERY 8 HOURS PRN, Starting on 06/19/22 at 1408, Until Discontinued, Nausea, Vomiting Or ondansetron (ZOFRAN) injection 4 mgJump to med 4 mg, IntraVENous, EVERY 6 HOURS PRN, Starting on 06/19/22 at 1408, Until Discontinued, Nausea, Vomiting
Administer if oral route cannot be used.
Goals (unrecognized section and content) Goals may be documented in a n alternate section Source Comments (unrecognize d section and content) In the event this informatio n is protected by the Federal Confidentiality of Alcohol and Drug Abuse Patient Records regulations: The Federal rules restrict any use of the information to criminally investigate or prosecute any alcohol or drug abuse patient.[facility] the event this information is protected by the Federal Confidentiality of Alcohol and Drug Abuse Patient Records regulations: The Federal rules restrict any use of the information to criminally investigate or prosecute any alcohol or drug abuse patient.[facility] HospitalIn the event this information is protected by the Federal Confidentiality of Alcohol and Drug Abuse Patient Records regulations: The Federal rules restrict any use of the information to criminally investigate or prosecute any alcohol or drug abuse patient.[facility] HospitalIn the event this information is protected by the Federal Confidentiality of Alcohol and Drug Abuse Patient Records regulations: The Federal rules restrict any use of the information to criminally investigate or prosecute any alcohol or drug abuse patient.[facility] HospitalIn the event this information is protected by the Federal Confidentiality of Alcohol and Drug Abuse Patient Records regulations: The Federal rules restrict any use of the information to criminally investigate or prosecute any alcohol or drug abuse patient.[facility] HospitalIn the event this information is protected by the Federal Confidentiality of Alcohol and Drug Abuse Patient Records regulations: The Federal rules restrict any use of the information to criminally investigate or prosecute any alcohol or drug abuse patient.[facility] HospitalIn the event this information is protected by the Federal Confidentiality of Alcohol and Drug Abuse Patient Records regulations: The Federal rules restrict any use of the information to criminally investigate or prosecute any alcohol or drug abuse patient.[facility] HospitalIn the event this information is protected by the Federal Confidentiality of Alcohol and Drug Abuse Patient Records regulations: The Federal rules restrict any use of the information to criminally investigate or prosecute any alcohol or drug abuse patient.[facility] HospitalIn the event this information is protected by the Federal Confidentiality of Alcohol and Drug Abuse Patient Records regulations: The Federal rules restrict any use of the information to criminally investigate or prosecute any alcohol or drug abuse patient.[facility] HospitalIn the event this information is protected by the Federal Confidentiality of Alcohol and Drug Abuse Patient Records regulations: The Federal rules restrict any use of the information to criminally investigate or prosecute any alcohol or drug abuse patient.[facility] HospitalIn the event this information is protected by the Federal Confidentiality of Alcohol and Drug Abuse Patient Records regulations: The Federal rules restrict any use of the information to criminally investigate or prosecute any alcohol or drug abuse patient.[facility] HospitalIn the event this information is protected by the Federal Confidentiality of Alcohol and Drug Abuse Patient Records regulations: The Federal rules restrict any use of the information to criminally investigate or prosecute any alcohol or drug abuse patient.[facility] HospitalIn the event this information is protected by the Federal Confidentiality of Alcohol and Drug Abuse Patient Records regulations: The Federal rules restrict any use of the information to criminally investigate or prosecute any alcohol or drug abuse patient.[facility] HospitalIn the event this information is protected by the Federal Confidentiality of Alcohol and Drug Abuse Patient Records regulations: The Federal rules restrict any use of the information to criminally investigate or prosecute any alcohol or drug abuse patient.[facility] HospitalIn the event this information is protected by the Federal Confidentiality of Alcohol and Drug Abuse Patient Records regulations: The Federal rules restrict any use of the information to criminally investigate or prosecute any alcohol or drug abuse patient.[facility] HospitalIn the event this information is protected by the Federal Confidentiality of Alcohol and Drug Abuse Patient Records regulations: The Federal rules restrict any use of the information to criminally investigate or prosecute any alcohol or drug abuse patient.[facility] HospitalIn the event this information is protected by the Federal Confidentiality of Alcohol and Drug Abuse Patient Records regulations: The Federal rules restrict any use of the information to criminally investigate or prosecute any alcohol or drug abuse patient.[facility] HospitalIn the event this information is protected by the Federal Confidentiality of Alcohol and Drug Abuse Patient Records regulations: The Federal rules restrict any use of the information to criminally investigate or prosecute any alcohol or drug abuse patient.[facility] HospitalIn the event this information is protected by the Federal Confidentiality of Alcohol and Drug Abuse Patient Records regulations: The Federal rules restrict any use of the information to criminally investigate or prosecute any alcohol or drug abuse patient.[facility] HospitalIn the event this information is protected by the Federal Confidentiality of Alcohol and Drug Abuse Patient Records regulations: The Federal rules restrict any use of the information to criminally investigate or prosecute any alcohol or drug abuse patient.[facility] HospitalIn the event this information is protected by the Federal Confidentiality of Alcohol and Drug Abuse Patient Records regulations: The Federal rules restrict any use of the information to criminally investigate or prosecute any alcohol or drug abuse patient.[facility] HospitalIn the event this information is protected by the Federal Confidentiality of Alcohol and Drug Abuse Patient Records regulations: The Federal rules restrict any use of the information to criminally investigate or prosecute any alcohol or drug abuse patient.[facility] HospitalIn the event this information is protected by the Federal Confidentiality of Alcohol and Drug Abuse Patient Records regulations: The Federal rules restrict any use of the information to criminally investigate or prosecute any alcohol or drug abuse patient.[facility] HospitalIn the event this information is protected by the Federal Confidentiality of Alcohol and Drug Abuse Patient Records regulations: The Federal rules restrict any use of the information to criminally investigate or prosecute any alcohol or drug abuse patient.[facility] HospitalIn the event this information is protected by the Federal Confidentiality of Alcohol and Drug Abuse Patient Records regulations: The Federal rules restrict any use of the information to criminally investigate or prosecute any alcohol or drug abuse patient.[facility] HospitalIn the event this information is protected by the Federal Confidentiality of Alcohol and Drug Abuse Patient Records regulations: The Federal rules restrict any use of the information to criminally investigate or prosecute any alcohol or drug abuse patient.[facility] HospitalIn the event this information is protected by the Federal Confidentiality of Alcohol and Drug Abuse Patient Records regulations: The Federal rules restrict any use of the information to criminally investigate or prosecute any alcohol or drug abuse patient.[facility] HospitalIn the event this information is protected by the Federal Confidentiality of Alcohol and Drug Abuse Patient Records regulations: The Federal rules restrict any use of the information to criminally investigate or prosecute any alcohol or drug abuse patient.[facility] HospitalIn the event this information is protected by the Federal Confidentiality of Alcohol and Drug Abuse Patient Records regulations: The Federal rules restrict any use of the information to criminally investigate or prosecute any alcohol or drug abuse patient.[facility] HospitalIn the event this information is protected by the Federal Confidentiality of Alcohol and Drug Abuse Patient Records regulations: The Federal rules restrict any use of the information to criminally investigate or prosecute any alcohol or drug abuse patient.[facility] HospitalIn the event this information is protected by the Federal Confidentiality of Alcohol and Drug Abuse Patient Records regulations: The Federal rules restrict any use of the information to criminally investigate or prosecute any alcohol or drug abuse patient.[facility] HospitalIn the event this information is protected by the Federal Confidentiality of Alcohol and Drug Abuse Patient Records regulations: The Federal rules restrict any use of the information to criminally investigate or prosecute any alcohol or drug abuse patient.[facility] HospitalIn the event this information is protected by the Federal Confidentiality of Alcohol and Drug Abuse Patient Records regulations: The Federal rules restrict any use of the information to criminally investigate or prosecute any alcohol or drug abuse patient.[facility] HospitalIn the event this information is protected by the Federal Confidentiality of Alcohol and Drug Abuse Patient Records regulations: The Federal rules restrict any use of the information to criminally investigate or prosecute any alcohol or drug abuse patient.[facility] HospitalIn the event this information is protected by the Federal Confidentiality of Alcohol and Drug Abuse Patient Records regulations: The Federal rules restrict any use of the information to criminally investigate or prosecute any alcohol or drug abuse patient.[facility] HospitalIn the event this information is protected by the Federal Confidentiality of Alcohol and Drug Abuse Patient Records regulations: The Federal rules restrict any use of the information to criminally investigate or prosecute any alcohol or drug abuse patient.[facility] HospitalIn the event this information is protected by the Federal Confidentiality of Alcohol and Drug Abuse Patient Records regulations: The Federal rules restrict any use of the information to criminally investigate or prosecute any alcohol or drug abuse patient.[facility] HospitalIn the event this information is protected by the Federal Confidentiality of Alcohol and Drug Abuse Patient Records regulations: The Federal rules restrict any use of the information to criminally investigate or prosecute any alcohol or drug abuse patient.[facility] HospitalIn the event this information is protected by the Federal Confidentiality of Alcohol and Drug Abuse Patient Records regulations: The Federal rules restrict any use of the information to criminally investigate or prosecute any alcohol or drug abuse patient.[facility] HospitalIn the event this information is protected by the Federal Confidentiality of Alcohol and Drug Abuse Patient Records regulations: The Federal rules restrict any use of the information to criminally investigate or prosecute any alcohol or drug abuse patient.[facility] HospitalIn the event this information is protected by the Federal Confidentiality of Alcohol and Drug Abuse Patient Records regulations: The Federal rules restrict any use of the information to criminally investigate or prosecute any alcohol or drug abuse patient.[facility] HospitalIn the event this information is protected by the Federal Confidentiality of Alcohol and Drug Abuse Patient Records regulations: The Federal rules restrict any use of the information to criminally investigate or prosecute any alcohol or drug abuse patient.[facility] HospitalIn the event this information is protected by the Federal Confidentiality of Alcohol and Drug Abuse Patient Records regulations: The Federal rules restrict any use of the information to criminally investigate or prosecute any alcohol or drug abuse patient.[facility] HospitalIn the event this information is protected by the Federal Confidentiality of Alcohol and Drug Abuse Patient Records regulations: The Federal rules restrict any use of the information to criminally investigate or prosecute any alcohol or drug abuse patient.[facility] HospitalIn the event this information is protected by the Federal Confidentiality of Alcohol and Drug Abuse Patient Records regulations: The Federal rules restrict any use of the information to criminally investigate or prosecute any alcohol or drug abuse patient.[facility] HospitalIn the event this information is protected by the Federal Confidentiality of Alcohol and Drug Abuse Patient Records regulations: The Federal rules restrict any use of the information to criminally investigate or prosecute any alcohol or drug abuse patient.[facility] HospitalIn the event this information is protected by the Federal Confidentiality of Alcohol and Drug Abuse Patient Records regulations: The Federal rules restrict any use of the information to criminally investigate or prosecute any alcohol or drug abuse patient.[facility] HospitalIn the event this information is protected by the Federal Confidentiality of Alcohol and Drug Abuse Patient Records regulations: The Federal rules restrict any use of the information to criminally investigate or prosecute any alcohol or drug abuse patient.[facility] HospitalIn the event this information is protected by the Federal Confidentiality of Alcohol and Drug Abuse Patient Records regulations: The Federal rules restrict any use of the information to criminally investigate or prosecute any alcohol or drug abuse patient.[facility] HospitalIn the event this information is protected by the Federal Confidentiality of Alcohol and Drug Abuse Patient Records regulations: The Federal rules restrict any use of the information to criminally investigate or prosecute any alcohol or drug abuse patient.[facility] HospitalIn the event this information is protected by the Federal Confidentiality of Alcohol and Drug Abuse Patient Records regulations: The Federal rules restrict any use of the information to criminally investigate or prosecute any alcohol or drug abuse patient.[facility] HospitalIn the event this information is protected by the Federal Confidentiality of Alcohol and Drug Abuse Patient Records regulations: The Federal rules restrict any use of the information to criminally investigate or prosecute any alcohol or drug abuse patient.[facility] HospitalIn the event this information is protected by the Federal Confidentiality of Alcohol and Drug Abuse Patient Records regulations: The Federal rules restrict any use of the information to criminally investigate or prosecute any alcohol or drug abuse patient.[facility] HospitalIn the event this information is protected by the Federal Confidentiality of Alcohol and Drug Abuse Patient Records regulations: The Federal rules restrict any use of the information to criminally investigate or prosecute any alcohol or drug abuse patient.[facility] HospitalIn the event this information is protected by the Federal Confidentiality of Alcohol and Drug Abuse Patient Records regulations: The Federal rules restrict any use of the information to criminally investigate or prosecute any alcohol or drug abuse patient.[facility] HospitalIn the event this information is protected by the Federal Confidentiality of Alcohol and Drug Abuse Patient Records regulations: The Federal rules restrict any use of the information to criminally investigate or prosecute any alcohol or drug abuse patient.[facility] HospitalIn the event this information is protected by the Federal Confidentiality of Alcohol and Drug Abuse Patient Records regulations: The Federal rules restrict any use of the information to criminally investigate or prosecute any alcohol or drug abuse patient.[facility] HospitalIn the event this information is protected by the Federal Confidentiality of Alcohol and Drug Abuse Patient Records regulations: The Federal rules restrict any use of the information to criminally investigate or prosecute any alcohol or drug abuse patient.[facility] HospitalIn the event this information is protected by the Federal Confidentiality of Alcohol and Drug Abuse Patient Records regulations: The Federal rules restrict any use of the information to criminally investigate or prosecute any alcohol or drug abuse patient.[facility] HospitalIn the event this information is protected by the Federal Confidentiality of Alcohol and Drug Abuse Patient Records regulations: The Federal rules restrict any use of the information to criminally investigate or prosecute any alcohol or drug abuse patient.[facility] HospitalIn the event this information is protected by the Federal Confidentiality of Alcohol and Drug Abuse Patient Records regulations: The Federal rules restrict any use of the information to criminally investigate or prosecute any alcohol or drug abuse patient.[facility] HospitalIn the event this information is protected by the Federal Confidentiality of Alcohol and Drug Abuse Patient Records regulations: The Federal rules restrict any use of the information to criminally investigate or prosecute any alcohol or drug abuse patient.[facility] HospitalIn the event this information is protected by the Federal Confidentiality of Alcohol and Drug Abuse Patient Records regulations: The Federal rules restrict any use of the information to criminally investigate or prosecute any alcohol or drug abuse patient.[facility] HospitalIn the event this information is protected by the Federal Confidentiality of Alcohol and Drug Abuse Patient Records regulations: The Federal rules restrict any use of the information to criminally investigate or prosecute any alcohol or drug abuse patient.[facility] HospitalIn the event this information is protected by the Federal Confidentiality of Alcohol and Drug Abuse Patient Records regulations: The Federal rules restrict any use of the information to criminally investigate or prosecute any alcohol or drug abuse patient.[facility] HospitalIn the event this information is protected by the Federal Confidentiality of Alcohol and Drug Abuse Patient Records regulations: The Federal rules restrict any use of the information to criminally investigate or prosecute any alcohol or drug abuse patient.[facility] HospitalIn the event this information is protected by the Federal Confidentiality of Alcohol and Drug Abuse Patient Records regulations: The Federal rules restrict any use of the information to criminally investigate or prosecute any alcohol or drug abuse patient.[facility] HospitalIn the event this information is protected by the Federal Confidentiality of Alcohol and Drug Abuse Patient Records regulations: The Federal rules restrict any use of the information to criminally investigate or prosecute any alcohol or drug abuse patient.[facility] Care Teams (unrecognized sec tion and content) Teacher Instrumental Relationship Specialty Start Date End Date Roger Cohen MD [address] [place], [place] [id number] PCP - General Internal Medicine 07/23/14 Teacher Instrumental Relationship Specialty Start Date End Date Roger Cohen MD [address] [place], [place] [id number] PCP - General Internal Medicine 07/23/14 Teacher Instrumental Relationship Specialty Start Date End Date Roger Cohen MD [address] [place], [place] [id number] PCP - General Internal Medicine 10/19/22 Teacher Instrumental Relationship Specialty Start Date End Date Jennifer Christina MD [address] [place] [address] PCP - General Family Medicine 10/20/22 Teacher Instrumental Relationship Specialty Start Date End Date Jennifer Christina MD [address] [place] [address] PCP - General Family Medicine 10/20/22 Teacher Instrumental Relationship Specialty Start Date End Date Jennifer Christina MD [address] [place] [address] PCP - General Family Medicine 10/20/22 Teacher Instrumental Relationship Specialty Start Date End Date Jennifer Christina MD [address] [place] [address] PCP - General Family Medicine 10/20/22 Maria Luisa Tyler MD [address] [place] [address] Referring Internal Medicine 11/03/22 Teacher Instrumental Relationship Specialty Start Date End Date Jennifer Christina MD [address] [place] [address] PCP - General Family Medicine 10/20/22 Maria Luisa Tyler MD [address] [place] [address] Referring Internal Medicine 11/03/22 Teacher Instrumental Relationship Specialty Start Date End Date Jennifer Christina MD [address] [place] [address] PCP - General Family Medicine 10/20/22 Maria Luisa Tyler MD [address] [place] [address] Referring Internal Medicine 11/03/22 Teacher Instrumental Relationship Specialty Start Date End Date Jennifer Christina MD [address] [place] [address] PCP - General Family Medicine 10/20/22 Maria Luisa Tyler MD [address] [place] [address] Referring Internal Medicine 11/03/22 Teacher Instrumental Relationship Specialty Start Date End Date Jennifer Christina MD [address] [place] [address] PCP - General Family Medicine 10/20/22 Maria Luisa Tyler MD [address] [place] [address] Referring Internal Medicine 11/03/22 Teacher Instrumental Relationship Specialty Start Date End Date Jennifer Christina MD [address] [place] [address] PCP - General Family Medicine 10/20/22 Maria Luisa Tyler MD [address] [place] [address] Referring Internal Medicine 11/03/22 Teacher Instrumental Relationship Specialty Start Date End Date Jennifer Christina MD [address] [place] [address] PCP - General Family Medicine 10/20/22 Maria Luisa Tyler MD [address] [place] [address] Referring Internal Medicine 11/03/22 Teacher Instrumental Relationship Specialty Start Date End Date Jennifer Christina MD [address] [place] [address] PCP - General Family Medicine 10/20/22 Maria Luisa Tyler MD [address] [place] [address] Referring Internal Medicine 11/03/22 Teacher Instrumental Relationship Specialty Start Date End Date Jennifer Christina MD [address] [place] [address] PCP - General Family Medicine 10/20/22 Maria Luisa Tyler MD [address] [place] [address] Referring Internal Medicine 11/03/22 Teacher Instrumental Relationship Specialty Start Date End Date Jennifer Christina MD [address] [place] [address] PCP - General Family Medicine 10/20/22 Maria Luisa Tyler MD [address] [place] [address] Referring Internal Medicine 11/03/22 Teacher Instrumental Relationship Specialty Start Date End Date Jennifer Christina MD [address] [place] [address] PCP - General Family Medicine 10/20/22 Maria Luisa Tyler MD [address] [place] [address] Referring Internal Medicine 11/03/22 Teacher Instrumental Relationship Specialty Start Date End Date Jennifer Christina MD [address] [place], [place] [address] PCP - General Family Medicine 10/20/22 Maria Luisa Tyler MD [address] [place] [address] Referring Internal Medicine 11/03/22 Teacher Instrumental Relationship Specialty Start Date End Date Jennifer Christina MD [address] [place] [address] PCP - General Family Medicine 10/20/22 Maria Luisa Tyler MD [address] [place] [address] Referring Internal Medicine 11/03/22 Teacher Instrumental Relationship Specialty Start Date End Date Jennifer Christina MD [address] [place] [address] PCP - General Family Medicine 10/20/22 Maria Luisa Tyler MD [address] [place] [address] Referring Internal Medicine 11/03/22 Teacher Instrumental Relationship Specialty Start Date End Date Jennifer Christina MD [address] [place] [address] PCP - General Family Medicine 10/20/22 Maria Luisa Tyler MD [address] [place], [place] [address] Referring Internal Medicine 11/03/22 Teacher Instrumental Relationship Specialty Start Date End Date Jennifer Christina MD [address] [place], [place] [address] PCP - General Family Medicine 10/20/22 Maria Luisa Tyler MD [address] [place], [place] [address] Referring Internal Medicine 11/03/22 Teacher Instrumental Relationship Specialty Start Date End Date Jennifer Christina MD [address] [place], [place] [address] PCP - General Family Medicine 10/20/22 Maria Luisa Tyler MD [address] [place] [address] Referring Internal Medicine 11/03/22 Teacher Instrumental Relationship Specialty Start Date End Date Jennifer Christina MD [address] [place] [address] PCP - General Family Medicine 10/20/22 Maria Luisa Tyler MD [address] [place] [address] Referring Internal Medicine 11/03/22 Teacher Instrumental Relationship Specialty Start Date End Date Jennifer Christina MD [address] [place], [place] [address] PCP - General Family Medicine 10/20/22 Maria Luisa Tyler MD [address] [place], [place] [address] Referring Internal Medicine 11/03/22 Teacher Instrumental Relationship Specialty Start Date End Date Jennifer Christina MD [address] [place] [address] PCP - General Family Medicine 10/20/22 Maria Luisa Tyler MD [address] [place] [address] Referring Internal Medicine 11/03/22 Teacher Instrumental Relationship Specialty Start Date End Date Jennifer Christina MD [address] [place] [address] PCP - General Family Medicine 10/20/22 Maria Luisa Tyler MD [address] [place] [address] Referring Internal Medicine 11/03/22 Team Status: Active Member Role Status Dates Dr. Roger Cohen MD Family Provider Active JENNIFER WERNER Primary Care Provider Active Team Status: Inactive Member Role Status Dates Dr. Eliseo Ricardo DO Emergency Provider Active ALPHONSO RODRIGUEZ Primary Care Provider Active Teacher Instrumental Relationship Specialty Start Date End Date Jennifer Christina MD [address] [place] [address] PCP - General Family Medicine 10/20/22 Maria Luisa Tyler MD [address] [place], [place] [address] Referring Internal Medicine 11/03/22 Teacher Instrumental Relationship Specialty Start Date End Date Jennifer Christina MD [address] [place] [address] PCP - General Family Medicine 10/20/22 Maria Luisa Tyler MD [address] [place] [address] Referring Internal Medicine 11/03/22 Teacher Instrumental Relationship Specialty Start Date End Date Jennifer Christina MD [address] [place] [address] PCP - General Family Medicine 10/20/22 Maria Luisa Tyler MD [address] [place] [address] Referring Internal Medicine 11/03/22 Teacher Instrumental Relationship Specialty Start Date End Date Jennifer Christina MD [address] [place] [address] PCP - General Family Medicine 10/20/22 Maria Luisa Tyler MD [address] [place] [address] Referring Internal Medicine 11/03/22 Teacher Instrumental Relationship Specialty Start Date End Date Jennifer Christina MD [address] [place] [address] PCP - General Family Medicine 10/20/22 Maria Luisa Tyler MD [address] [place] [address] Referring Internal Medicine 11/03/22 Teacher Instrumental Relationship Specialty Start Date End Date Jennifer Christina MD [address] [place] [address] PCP - General Family Medicine 10/20/22 Maria Luisa Tyler MD [address] [place] [address] Referring Internal Medicine 11/03/22 Teacher Instrumental Relationship Specialty Start Date End Date Jennifer Christina MD [address] [place] [address] PCP - General Family Medicine 10/20/22 Maria Luisa Tyler MD [address] [place] [address] Referring Internal Medicine 11/03/22 Teacher Instrumental Relationship Specialty Start Date End Date Jennifer Christina MD [address] [place] [address] PCP - General Family Medicine 10/20/22 Maria Luisa Tyler MD [address] [place] [address] Referring Internal Medicine 11/03/22 Teacher Instrumental Relationship Specialty Start Date End Date Jennifer Christina MD [address] [place] [address] PCP - General Family Medicine 10/20/22 Maria Luisa Tyler MD [address] [place] [address] Referring Internal Medicine 11/03/22 Teacher Instrumental Relationship Specialty Start Date End Date Roger Cohen MD [address] [place] [address] PCP - General Internal Medicine 07/23/14 10/18/22 Teacher Instrumental Relationship Specialty Start Date End Date Roger Cohen MD [address] [place] [address] PCP - General Internal Medicine 07/23/14 10/18/22 Teacher Instrumental Relationship Specialty Start Date End Date Jennifer Chirstina MD [address] [place] [address] PCP - General Family Medicine 10/20/22 Mraia Luisa Tyler MD [address] [place] [address] Referring Internal Medicine 11/03/22 Teacher Instrumental Relationship Specialty Start Date End Date Jennifer Christina MD [address] [place] [address] PCP - General Family Medicine 10/20/22 Maria Luisa Tyler MD [address] [place] [address] Referring Internal Medicine 11/03/22 Teacher Instrumental Relationship Specialty Start Date End Date Jennifer Christina MD [address] [place] [address] PCP - General Family Medicine 10/20/22 Maria Luisa Tyler MD [address] [place] [address] Referring Internal Medicine 11/03/22 Teacher Instrumental Relationship Specialty Start Date End Date Jennifer Christina MD [address] [place] [address] PCP - General Family Medicine 10/20/22 Maria Luisa Tyler MD [address] [place] [address] Referring Internal Medicine 11/03/22 Teacher Instrumental Relationship Specialty Start Date End Date Jennifer Werner MD [address] [place] [address] PCP - General Family Medicine 10/20/22 Maria Luisa Tyler MD [address] [place] [address] Referring Internal Medicine 11/03/22 Teacher Instrumental Relationship Specialty Start Date End Date Jennifer Werner MD [address] [place] [address] PCP - General Family Medicine 10/20/22 Maria Luisa Tyler MD [address] [place] [address] Referring Internal Medicine 11/03/22 Teacher Instrumental Relationship Specialty Start Date End Date Jennifer Werner MD [address] [place] [address] PCP - General Family Medicine 10/20/22 Maria Luisa Tyler MD [address] [place] [address] Referring Internal Medicine 11/03/22 Teacher Instrumental Relationship Specialty Start Date End Date Jennifer Werner MD [address] [place] [address] PCP - General Family Medicine 10/20/22 Maria Luisa Tyler MD [address] [place] [address] Referring Internal Medicine 11/03/22 Team Status: Active Member Role Status Dates Out of Town Doctor Primary Care Provider Active Team Status: Inactive Member Role Status Dates Dr. Maria Regan MD Primary Care Provider Acti ve Start: November 22, 2024 End: November 22, 2024 Lupillo Asif MD Attending Provider Active Star t: November 22, 2024 End: November 22, 2024 Lupillo Asif MD Emergency Provider Active Star t: November 22, 2024 End: November 22, 2024 Team Status: Inactive Member Role Status Dates Dr. Maria Regan MD Primary Care Provider Acti ve Start: December 21, 2024 End: December 21, 2024 Dr. Maria Regan MD Attending Provider Active Start: December 21, 2024 End: December 21, 2024 Dr. Maria Regan MD Referring Provider Active Start: December 21, 2024 End: December 21, 2024 Team Status: Inactive Member Role Status Dates Dr. Maria Regan MD Primary Care Provider Acti ve Start: January 07, 2025 End: January 07, 2025 Dr. Maria Regan MD Attending Provider Active Start: January 07, 2025 End: January 07, 2025 Dr. Maria Regan MD Referring Provider Active Start: January 07, 2025 End: January 07, 2025 Team Status: Inactive Member Role Status Dates Dr. Maria Regan MD Attending Provider Active Start: February 08, 2025 End: February 08, 2025 Dr. Maria Regan MD Referring Provider Active Start: February 08, 2025 End: February 08, 2025 Out of Town Doctor Primary Care Provider Active Start: February 08, 2025 End: February 08, 2025 Team Status: Active Member Role Status Dates Dr. Jennifer Werner MD Primary Care Provider Active Team Status: Inactive Member Role Status Dates Dr. Kevin Heart DO Emergency Provider Active Start: February 18, 2025 End: February 18, 2025 Dr. Jennifer Werner MD Primary Care Provider Active Start: February 18, 2025 End: February 18, 2025 Teacher Instrumental Relationship Specialty Start Date End Date Jennifer Werner MD [address] [place], [place] [id number] PCP - General Family Medicine 10/20/22 Maria Luisa Tyler MD [address] [place], [place] [address] Referring Internal Medicine 11/03/22 Teacher Instrumental Relationship Specialty Start Date End Date Jennifer Werner MD [address] [place], [place] [address] PCP - General Family Medicine 10/20/22 Maria Luisa Tyler MD [address] [place], [place] [address] Referring Internal Medicine 11/03/22 Team Status: Inactive Member Role Status Dates Dr. Kevin Heart DO Attending Provider Active Start: February 18, 2025 End: February 18, 2025 Dr. Kevin Heart DO Emergency Provider Active Start: February 18, 2025 End: February 18, 2025 Dr. Jennifer Werner MD Primary Care Provider Active Start: February 18, 2025 End: February 18, 2025 Team Status: Inactive Member Role Status Dates Dr. Jennifer Werner MD Primary Care Provider Active Start: February 27, 2025 End: February 27, 2025 Dr. Jennifer Werner MD Referring Provider Active Start: February 27, 2025 End: February 27, 2025 EMERITA Copeland Attending Provider Active Start: February 27, 2025 End: February 27, 2025 Teacher Instrumental Relationship Specialty Start Date End Date Jennifer Werner MD [address] [place] [address] PCP - General Family Medicine 10/20/22 Maria Luisa Tyler MD [address] [place] [address] Referring Internal Medicine 11/03/22 Team Status: Inactive Member Role Status Dates Dr. Jennifer Werner MD Primary Care Provider Active Start: March 06, 2025 End: March 06, 2025 Dr. Al Hassan MD Emergency Provider Active Start: March 06, 2025 End: March 06, 2025 Team Status: Inactive Member Role Status Dates Dr. Jennifer Werner MD Primary Care Provider Active Start: March 06, 2025 End: March 06, 2025 Dr. Al Hassan MD Attending Provider Active Start: March 06, 2025 End: March 06, 2025 Dr. Al Hassan MD Emergency Provider Active Start: March 06, 2025 End: March 06, 2025 Team Status: Inactive Member Role Status Dates Dr. Maria Regan MD Attending Provider Active Start: March 18, 2025 End: March 18, 2025 Dr. Maria Regan MD Referring Provider Active Start: March 18, 2025 End: March 18, 2025 Dr. Jennifer Werner MD Primary Care Provider Active Start: March 18, 2025 End: March 18, 2025 Care Team (unrecognized sect ion and content) Care Team Personnel Name: ROGER COHEN MD Member Role: Primary Care Physician Address: Address: [address] [place] [id number]- [place] Name: CEZAR FRENCH MD Position: ED Physician Member Role: ED Physician Address: Address: [address] [place] [id number]- Name: Saranya Hebert RN Position: AO RN Member Role: ED RN Care Team Related Persons Name: SERENITY DRAKE Address: [facility] Name: SERENITY DRAKE Address: Home [place] Name: GABI TONEY Address: [address] [place] [address] Name: AMAURY TONEY Address: Home [address] [place] [id number] Care Team Personnel Name: ROGER COHEN MD Member Role: Primary Care Physician Address: Address: [address] [place], [place] [address] Name: MUMTAZ Menezes Position: AO RN Member Role: ED RN Name: MAVIS SHEPARD MD Position: ED Physician Member Role: ED Physician Address: Address: [facility] [address] [place] [address] Care Team Related Persons Name: DRAKESERENITY Address: [facility] Name: SERENITY DRAKE Address: [facility] Name: GABI TONEY Address: Home [address] [place] [address] Name: AMAURY TONEY Address: [place] [address] FOR RECORDS PERTAINING TO PATIENTS WHO ARE OR HAVE BEEN ENROLLED IN A CHEMICAL DEPENDENCY/SUBSTANCEABUSE PROGRAM, SOME INFORMATION MAY BE OMITTED. This clinical summary was aggregated from multiple sources. Caution should be exercised in using it in the provision of clinical care. This summary normalizes information from multiple sources, and as a consequence, information in this document may materially change the coding, format and clinical context of patient data. In addition, data may be omitted in some cases. CLINICAL DECISIONS SHOULD BE BASED ON THE PRIMARY CLINICAL RECORDS. [facility] [employer] [facility]. provides no warranty or guarantee of the accuracy or completeness of information in this document.
[2025-03-21] MEDS: Ketorolac 30 MG/ML Syringe IV (19:31)
[2025-03-21] MEDS: Ondansetron 4 MG/2 ML Vial IV (19:31)
[2025-03-21 19:54] LABS: ALB/GLOB Ratio 1.3 RATIO (0.9-2.4); AST(SGOT) 15 U/L (<=31); Alanine Aminotransfer ALT/SGPT 11 U/L (<=34); Albumin, Serum 4.1 g/dL (3.5-5.0); Alkaline Phosphatase 63 U/L (35-104); Anion Gap 13 (5-15); BUN 18 mg/dL (4-19); BUN/Creat Ratio 28.5 RATIO (10-20); Calcium,Total 9.3 mg/dL (7.6-11.0); Carbon Dioxide 19.6 mmol/L (21.0-32.0); Chloride 106 mmol/L (98-108); Creatinine, Serum 0.62 mg/dL (0.70-1.20); EST Glomerular Filtration Rate 118 (>60); Estimated Creatinine Clearance 120.73 ml/min (50-250); Globulin 3.1 g/dL (2.2-4.2); Glucose 115 mg/dL (70-99); Lipase 69 U/L (13-75); Potassium 3.4 mmol/L (3.3-5.1); Protein, Total 7.2 g/dL (5.9-8.4); Sodium Level 138 mmol/L (133-145); Total Bilirubin 0.21 mg/dL (0.00-1.30)
[2025-03-21 20:10] VITALS: BP 104/73; PULSE 71; RESP 16; O2SAT 95
[2025-03-21 21:17] LABS: Red Blood Cells-Urine 0 SEEN /hpf (0-5)
[2025-03-21] MEDS: Morphine 2 MG/ML Syringe IV (21:24)
[2025-03-21 21:31] LABS: Internal QC Validated? YES +Cl - CLEAR BKGD; Pregnancy, Urine Negative Negative
[2025-03-21 21:39] LABS: Color, Urine Yellow (Yellow); Glucose, Dipstick Normal (Normal); Ketone-Dipstick Negative (Negative); Leukocyte Esterase-Dipstick Negative /ul (Negative); Nitrite-Dipstick Negative (Negative); Occult Blood-Urine 50 /ul (Negative); Protein-Dipstick 30 mg/dl (Negative); Specific Gravity, Urine 1.025 (1.002-1.030); Urine Bilirubin Dipstick Negative (Negative); Urine Clarity Sl. Cloudy (Clear); Urine Urobilinogen Normal (Normal)
[2025-03-21 21:40] VITALS: BP 115/56; PULSE 76; RESP 15; TEMP 36.4; O2SAT 94
[2025-03-21 21:54] LABS: Bacteria 3+ /hpf (None Seen); Mucous, Urine 2+ /hpf (<or=2+); Squamous Epithelial Cells - UA 10-25 SEEN /hpf (5-10); White Blood Cells 0-5 SEEN /hpf (0-5)
[2025-03-21 22:52] VITALS: BP 123/74; PULSE 80; RESP 15; TEMP 36.4; O2SAT 94
--- NOTE | 2025-03-21 23:08 | CT_ITS ---
PROCEDURE: ABDOMEN/PELVIS W IV CONT ONLY 03/21/2025 REASON FOR EXAM: ABDOMINAL PAIN TECHNIQUE: ABDOMEN/PELVIS W IV CONT ONLY. Coronal and Sagittal reconstruction series were provided. CONTRAST: Isovue-300 VOLUME: 61 mL One or more dose reduction techniques were used (e.g., Automated exposure control, adjustment of the mA and/or kV according to patient size, use of iterative reconstruction technique. RADIATION DOSE SUMMARY: CTDlvol: 16.16 mGy DLP: 852.63 mGycm FINDINGS: The visualized lung bases are unremarkable. Normal liver. Normal gallbladder and extrahepatic biliary system. Normal spleen. Normal pancreas. Normal bilateral adrenal glands. Normal size of the right kidney. There is no right renal mass. There are no right renal calculi. There is no right hydronephrosis. Normal visualized right ureter. Normal size of the left kidney. There is no left renal mass. There are no left renal calculi. There is no left hydronephrosis. Normal visualized left ureter. Normal visualized stomach. Normal small intestine. Normal colon. The appendix is visualized and appears normal. There is no demonstrated peritoneal fluid. Normal abdominal aorta. Normal inferior vena cava. Normal retroperitoneum. Normal urinary bladder. There is no pelvic mass lesion or lymphadenopathy. There is no pelvic fluid. An IUD is seen in the endometrial cavity. The ovaries are normal in size and density. Normal abdominal wall. Normal osseous structures. CT/Abdomen/Pelvis W IV Cont ONLY IMPRESSION: Unremarkable CT scan of the abdomen pelvis without evidence of acute intra-abdo ari process. Reading Location: [facility]
[2025-03-21] MEDS: HYDROmorphone 0.5 MG/0.5 ML SYRINGE IV (23:48)
[2025-03-21] MEDS: 0.9% Normal Saline (1000mL) 1,000 ML 999 ML IV (23:51)
[2025-03-22] VITALS: BP 111/72; PULSE 74; RESP 18; O2SAT 99
== END 2025-03-22 01:27 | disposition home or self-care (01) ==
PROVIDERS: Physician Assistant; Emergency Provider Surgery; PCP Family Medicine; Visit Provider Surgery
DX: N94.6 Dysmenorrhea, unspecified (principal); Z87.891 Personal history of nicotine dependence; R11.0 Nausea; E28.2 Polycystic ovarian syndrome; J45.909 Unspecified asthma, uncomplicated; N88.8 Other specified noninflammatory disorders of cervix uteri
CPT/HCPCS: 74177; 76830; 80053; 81001; 81025; 83690; 85025; 87086; 87088; 96374; 96375; 99283; Q9967; A4216; J2405

== ENCOUNTER 2025-04-08 13:07 | Emergency (ER) | payer MEDICAID, SELFPAY ==
[2025-04-08 13:09] VITALS: BP 114/81; PULSE 69; RESP 18; TEMP 36.8; O2SAT 99; BMI 30.1
[2025-04-08 14:38] LABS: Hematocrit 38.0 % (37-47); Hemoglobin 12.6 g/dL (12.0-15.0); Immature Granulocytes Count 0.020 X10^3/uL (0.0-0.0); Mean Corp Hgb Conc 33.2 g/dL (32-36); Mean Corpuscular Volume 89.4 fL (81-99); Mean Platelet Vol. 10.1 fl (6.2-12.0); NRBC Flagged by Analyzer 0 % (0-5); Platelet Count 236 K/mm3 (150-450); RBC Distribution Width CV 14.1 % (11.6-14.6); RBC Distribution Width SD 45.7 fl (35.1-43.9); Red Blood Count 4.25 M/mm3 (4.2-5.4); White Blood Count 9.8 K/mm3 (4.4-11.0)
--- NOTE | 2025-04-08 14:41 | EDS_ITS ---
HPI HPI - GI History of Present Illness Chief Complaint: Abd Pain Informant: patient Abdominal Pain/Flank Pain Onset: Today and Yesterday Context: Gradual Onset Timing: Continuous Quality: Aching and Stabbing Location: RLQ Current Severity: Moderate Maximum Severity: Moderate Worsened by: Nothing Relieved by: Nothing Nausea/Vomiting/Emesis GI Symptom: Positive for Nausea Severity: Mild Diarrhea/Melena/Hematochezia GI Symptom: Negative for Diarrhea, Melena or Hematochezia Associated Symptoms Associated Symptoms: Negative for Dysuria, Frequency, Hematuria or Urgency Narrative Narrative: 39-year-old female history of prior bilateral tubal ligation. Prior IUD which been removed. History of adenomyosis and PCOS. They also think she may have endometriosis but has been improving it. She has an upcoming pending hysterec crystal due to pelvic and abdominal pain with Dr. Maria Regan. Patient states last night she is having abdominal pain associated nausea. No vomiting or diarrhea. No constipation or dysuria. No vaginal bleeding or discharge. Prior similar symptoms: Yes Recent Illness/Hospitalization: No PFSH PFSH Medical History Dyspareunia depression History of premature rupture of membranes (PPROM) History of pre-term labor Polyhydramnios Asthma Anxiety Polyhydramnios affecting IUGR (intrauterine growth restriction) Anxiety Former smoker Hyperemesis Vaginal bleeding during Dichorionic diamniotic twin Rh negative status during Infertility Supervision of high risk , antepartum Marijuana use, episodic Concussion without loss of consciousness Cervical strain COVID-19 Depression Back pain Abnormal bruising Knee pain Chest pain Migraines Fatigue Shoulder pain Home Medications ?Medication ?Instructions ?Recorded ?Last Taken ?Type sertraline 100 mg tablet (Zoloft) 150 mg PO DAILY Chec k with primary 06/18/22 06/24/22 10:00 History doctor lithium carbonate 300 mg 250 mg PO DAILY 11/22/24 Unk nown History tablet,extended release Allergy/AdvReac Type Severity Reaction Status Date / Time dicyclomine (From Bentyl) Allergy migraine Verified 04/08/25 13:08 Penicillins Allergy Rash Verified 04/08/25 13:08 Surgical History Status post bilateral salpingectomy delivery delivered H/O dilation and curettage Social History adopted: No household members: significant other and children number of children: 2 current occupational status: employed 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 Nausea. Constitutional Constitutional ED: Denies chills or fever(s) ENT ENT ED: Denies ear pain Cardiovascular Cardiovascular: Denies chest pain Respiratory/Chest Respiratory/Chest: Denies cough or dyspnea Gastrointestinal Gastrointestinal: Reports abdominal pain and nausea; Denies constipation, diarrhea, melena or vomiting Genitourinary Genitourinary ED: Denies dysuria or hematuria Musculoskeletal Musculoskeletal: Denies arthralgias or back pain Integumentary Denies abscess or Abrasions Neurologic Neurologic: Denies headache(s) Psychiatric Psychiatric: Denies anxiety or depression Endocrine Endocrinology: Denies polydipsia or polyphagia Hematologic/Lymphatic Hematologic/Lymphatic: Denies easy bleeding, easy bruising or lymphadenopathy Allergic/Immunologic Allergic/Immunologic ED: Denies mouth swelling, tongue swelling or urticaria EXAM Physical Exam Narrative Exam Narrative: 39-year-old female sitting upright in bed. Significant other at bedside. Vital signs are stable afebrile. H EENT exam pupils round react light. Motions are intact. Neck nontender no lymphadenopathy. Lungs clear to auscultation. Heart regular rhythm rate about 70 no murmur. Abdomen soft nondistended normal bowel sounds without peritoneal signs. She has mild right lower quadrant tenderness. No hernia or mass. No obstruction. No peritoneal signs. No Rovsing sign. Right upper quadrant is nontender. Moving all 4 extremities. Back nontender. Neurologically she is awake alert. Answering questions following commands. Const Vital Signs: 04/08/25 13:09 04/08/25 15:08 04/08/25 17:00 Temperature 98.3 F Temperature Source Oral Pulse Rate 69 64 56 L Respiratory Rate 18 16 14 Blood Pressure 114/81 H 110/69 113/71 Blood Pressure Mean 92 82 85 Pulse Ox 99 98 96 Oxygen Delivery Method Room Air Room Air Positive well nourished and well developed; Negative for cachectic, contractures or unkempt General Appearance ED: well developed and NAD; Negative for unkempt, cachectic, contractures or pallor Nutritional Appearance: Negative for cachectic HEENT Reports moist mucous membranes normocephalic and atraumatic Eyes PERRL and EOMs intact bilaterally Neck no lymphadenopathy, supple and no JVD General: Negative for tenderness Lymph Lymphatic: Negative for other Resp normal respiratory effort and clear to auscultation bilaterally Effort and Inspection: Negative for respiratory distress Auscultation: Negative for rales, rhonchi or wheezes Cardio regular rate, regular rhythm, S1 normal heart sound, S2 normal heart sound and no murmurs Rate: Negative for bradycardia or tachycardic GI non-distended and no masses; Negative for non-tender GI Narrative: Mild right-sided tenderness. Nonspecific McBurney's point. No hernia or mass. No obstruction. No Rust sign tenderness. Inspection: Negative for abdominal distention Auscultation: normoactive bowel sounds Palpation: soft and tender; Negative for guarding, rigid, hepatomegaly, splenomegaly, hernia, mass, pulsatile mass or rebound tenderness present Back/Spine no CVA tenderness General Back: Negative for CVA tenderness Cervical Spine: Negative for cervical spine tenderness Thoracic Spine / Upper Back: Negative for thoracic spinal tenderness Lumbar Spine / Lower Back: Negative for lumbar spinal tenderness Extremity full ROM General Extremety ED: Negative for edema or tenderness General Extremity: Negative for edema Neuro CN's II-XII intact bilaterally and moves all extremities Sensorium / Orientation: alert, oriented to person, oriented to place and oriented to time Motor Exam: strength 5/5 throughout Psych mental status grossly normal and thought process normal Appearance: Negative for unkempt Skin no wounds General Skin Exam: Negative for jaundice or pallor Lesions: no lesions Rashes: no rashes Trauma: Negative for abrasion Nails: Negative for discolored MDM MDM MDM Narrative Medical decision making narrative: 39-year-old female abdominal pain history of adenomyosis pending hysterectomy due to abdominal pelvic pain. Suspected history of endometriosis. No prior abdominal surgeries other than pelvic surgery for tubal ligation. Screening labs to be obtained. She has had recent CAT scans 1 about 18 days ago that was negative. She has no fever., Holding off on CAT scan at this time. She is also had a recent ultrasound of her pelvis. She be treated with morphine and Toradol for pain. Zofran for nausea. Repeat exam at 5:20 PM patient still having pain. We went over her labs are completely normal. I will obtain a CT abdomen pelvis to rule out appendicitis or other abnormalities. Most likely this is secondary to endometriosis. Repeat exam patient doing better at 7:26 PM. We discussed her labs and CAT scan results. She will be discharged home with outpatient follow-up. Abdominal pain uncertain etiology. History & Record Review Discussion w/independent historian: Patient and Family Additional record(s) reviewed:: Prior inpatient record, Prior outpatient record, Prior ED visit and Prior labs Lab Data Attestation: I reviewed the patient's lab results. Lab results narrative: CBC white count 9.8. H&H 12 and 38. Platelets 236. Chemistry shows sodium 140 10. BUN/creatinine 12 and 0.6. Glucose 96 Liver enzymes normal. Lipase normal. Serum test negative. Urinalysis negative. No white or red cells. No bacteria. No nitrites. Labs: Laboratory Results - last 24 hr 04/08/25 04/08/25 13:57 14:11 WBC 9.8 RBC 4.25 Hgb 12.6 Hct 38.0 MCV 89.4 MCH 29.6 MCHC 33.2 RDW Std Deviation 45.7 H RDW Coeff of Tluio 14.1 Plt Count 236 MPV 10.1 Immature Gran % (Auto) 0.200 Neut % (Auto) 63.3 Lymph % (Auto) 29.4 Kendall % (Auto) 4.7 Eos % (Auto) 1.8 Baso % (Auto) 0.6 Absolute Neuts (auto) 6.2 Absolute Lymphs (auto) 2.89 Nucleated RBC % 0 Sodium 140 Potassium 3.6 Chloride 107 Carbon Dioxide 22.8 Anion Gap 10 BUN 12 Creatinine 0.67 L Estim Creat Clear Calc 113.04 Est GFR (MDRD) Non-Af 115 BUN/Creatinine Ratio 18.6 Glucose 96 Calcium 9.1 Total Bilirubin 0.35 AST 20 ALT 10 Alkaline Phosphatase 67 Total Protein 7.0 Albumin 4.1 Globulin 2.9 Albumin/Globulin Ratio 1.4 Lipase 37 Serum , Qual NEGATIVE Urine Color Yellow Urine Clarity Cloudy Urine pH 8.0 Ur Specific [place] 1.015 Urine Protein 30 H Urine Glucose (UA) Normal Urine Ketones Negative Urine Occult Blood Negative Urine Nitrite Negative Urine Bilirubin Negative Urine Urobilinogen Normal Ur Leukocyte Esterase Negative Urine RBC 0 SEEN Urine WBC 0 SEEN Ur Squamous Epith Cells 0-5 SEEN Amorphous Sediment 2+ Urine Bacteria 0 SEEN Urine Mucus 0 SEEN Radiography Diagnostic Testing: Clinical Impression(s) from Imaging Studies Abdomen/Pelvis CT 04/08/25 17:28 IMPRESSION: No acute abnormality Reading Location: [facility] Discharge Plan Triage Chief Complaint: Abd Pain ED Provider: Gregorio Moralez Dx/Rx/DC Orders Clinical Impression: Abdominal pain, Adenomyosis Instructions: Abdominal Pain Prescriptions: No Action sertraline [Zoloft] 100 mg tablet 150 mg PO DAILY lithium carbonate 300 mg tablet extended release 250 mg PO DAILY Primary Care Provider: Grant Nazario Referrals: Grant Nazario MD [Primary Care Provider] - Maria Regan MD [Med Staff - Active Staff] - As Needed Activity Restrictions/Additional Instructions: CAT scan the labs look good. Motrin and Tylenol for pain. Follow-up with Dr. Maria Regan. Print Language: Hungarian Disposition Disposition: Home, Self Care
[2025-04-08 14:47] LABS: Mucous, Urine 0 SEEN /hpf (<or=2+); Red Blood Cells-Urine 0 SEEN /hpf (0-5)
[2025-04-08] MEDS: Ketorolac 30 MG/ML Syringe IV (15:02)
[2025-04-08 15:08] VITALS: BP 110/69; PULSE 64; RESP 16; O2SAT 98
[2025-04-08 15:15] LABS: Lipase 37 U/L (13-75)
[2025-04-08 15:16] LABS: Internal QC Validated? YES +Cl - CLEAR BKGD
[2025-04-08 15:17] LABS: Pregnancy, Serum, hCG Quali. NEGATIVE Negative; Record Kit Lot#, Serum Preg. 947241
[2025-04-08 15:19] LABS: AST(SGOT) 20 U/L (<=31); Alanine Aminotransfer ALT/SGPT 10 U/L (<=34); Albumin, Serum 4.1 g/dL (3.5-5.0); Alkaline Phosphatase 67 U/L (35-104); Anion Gap 10 (5-15); BUN 12 mg/dL (4-19); BUN/Creat Ratio 18.6 RATIO (10-20); Calcium,Total 9.1 mg/dL (7.6-11.0); Carbon Dioxide 22.8 mmol/L (21.0-32.0); Chloride 107 mmol/L (98-108); Estimated Creatinine Clearance 113.04 ml/min (50-250); Globulin 2.9 g/dL (2.2-4.2); Glucose 96 mg/dL (70-99); Potassium 3.6 mmol/L (3.3-5.1)
[2025-04-08 15:23] LABS: Color, Urine Yellow (Yellow); Glucose, Dipstick Normal (Normal); Ketone-Dipstick Negative (Negative); Leukocyte Esterase-Dipstick Negative /ul (Negative); Nitrite-Dipstick Negative (Negative); Occult Blood-Urine Negative /ul (Negative); Protein-Dipstick 30 mg/dl (Negative); Specific Gravity, Urine 1.015 (1.002-1.030); Urine Bilirubin Dipstick Negative (Negative)
[2025-04-08 15:43] LABS: Squamous Epithelial Cells - UA 0-5 SEEN /hpf (5-10)
[2025-04-08 17:00] VITALS: BP 113/71; PULSE 56; RESP 14; O2SAT 96
--- NOTE | 2025-04-08 17:28 | CT_ITS ---
PROCEDURE: ABDOMEN/PELVIS W IV CONT ONLY 04/08/2025 REASON FOR EXAM: RLQ ABD PAIN TECHNIQUE: ABDOMEN/PELVIS W IV CONT ONLY Coronal and Sagittal reconstruction series were provided. CONTRAST: 97 cc VOLUME: Isovue 370 mL One or more dose reduction techniques were used (e.g., Automated exposure control, adjustment of the mA and/or kV according to patient size, use of iterative reconstruction technique. RADIATION DOSE SUMMARY: CTDlvol: 29 mGy DLP: 852.63 mGycm COMPARISON: 03/21/2025 FINDINGS: No free-fluid no free air. There is cystic change in the right adnexa which is located somewhat superiorly. This contains a follicle or cyst measuring 4.1 cm. There is no bowel obstruction. There is specifically no appendicitis. No visible bowel wall thickening. No retroperitoneal adenopathy. Normal pancreas, liver, spleen, gallbladder and portal vein. No renal mass or hydronephrosis. CT/Abdomen/Pelvis W IV Cont ONLY IMPRESSION: No acute abnormality Reading [facility]
--- NOTE | 2025-04-08 17:28 | CT_ITS ---
PROCEDURE: ABDOMEN/PELVIS W IV CONT ONLY 04/08/2025 REASON FOR EXAM: RLQ ABD PAIN TECHNIQUE: ABDOMEN/PELVIS W IV CONT ONLY Coronal and Sagittal reconstruction series were provided. CONTRAST: 97 cc VOLUME: Isovue 370 mL One or more dose reduction techniques were used (e.g., Automated exposure control, adjustment of the mA and/or kV according to patient size, use of iterative reconstruction technique. RADIATION DOSE SUMMARY: CTDlvol: 29 mGy DLP: 852.63 mGycm COMPARISON: 03/21/2025 FINDINGS: No free-fluid no free air. There is cystic change in the right adnexa which is located somewhat superiorly. This contains a follicle or cyst measuring 4.1 cm. There is no bowel obstruction. There is specifically no appendicitis. No visible bowel wall thickening. No retroperitoneal adenopathy. Normal pancreas, liver, spleen, gallbladder and portal vein. No renal mass or hydronephrosis. CT/Abdomen/Pelvis W IV Cont ONLY IMPRESSION: No acute abnormality Reading Location[facility]
[2025-04-08 19:00] VITALS: BP 110/77; PULSE 61; RESP 18; O2SAT 99
[2025-04-08 19:30] VITALS: BP 110/77; PULSE 61; RESP 18; TEMP 36.6; O2SAT 99
--- OUTSIDE RECORDS SUMMARY | 2025-04-11 02:15 | XMS RPT_ITS | CCD ---
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 dioxide, total [Moles /volume] in Central venous bloodOrdered By: Elia Barroso on 03-21-2025 CO2 [Moles/Vol] 19.6 mmol/L Low 21.0-32.0 [facility] Chloride assayOrdered By: Earl Barroso on 03-21-2025 Chloride [Moles/Vol] 106 mmol/L 98-108 [facility] Comprehensive Metabolic Prof ilon 03-21-2025 Albumin [Mass/Vol] 4.1 g/dL Normal 3.5-5.0 [facility] Comment on above: Performed By: #### M 100.3200, , L7400.0280, L7000.1800 #### [facility] [address] [place], [address] Albumin/Globulin [Mass ratio] 1.3 {ratio} Normal 0.9-2.4 [facility] Comment on above: Performed By: #### M 100.3200, , L7400.0280, L7000.1800 #### [facility] [address] [place], [address] ALK PHOS 63 U/L Normal 35-104 [facility] Comment on above: Performed By: #### M 100.3200, , L7400.0280, L7000.1800 #### [facility] [address] [place], [address] ALT [Catalytic activity/Vol] 11 U/L Normal <=34 [facility] Comment on above: Performed By: #### M 100.3200, , L7400.0280, L7000.1800 #### [facility] [address] [place], [address] AST [Catalytic activity/Vol] 15 U/L Normal <=31 [facility] Comment on above: Performed By: #### M 100.3200, M1, L7400.0280, L7000.1800 #### [facility] [address] [place], [address] Bilirubin [Mass/Vol] 0.21 mg/dL Normal 0.00-1.30 [facility] Comment on above: Performed By: #### M 100.3200, , L7400.0280, L7000.1800 #### [facility] [address] [place], [address] BUN/CRE 28.5 RATIO High 10-20 [facility] Comment on above: Performed By: #### M 100.3200, , L7400.0280, L7000.1800 #### [facility] [address] [place], [address] Calcium [Mass/Vol] 9.3 mg/dL Normal 7.6-11.0 [facility] Comment on above: Performed By: #### M 100.3200, , L7400.0280, L7000.1800 #### [facility] [address] [place], [address] Chloride [Moles/Vol] 106 mmol/L Normal 98-108 [facility] Comment on above: Performed By: #### M 100.3200, , L7400.0280, L7000.1800 #### [facility] [address] [place], [address] CO2 [Moles/Vol] 19.6 mmol/L Low 21.0-32.0 [facility] Comment on above: Performed By: #### M 100.3200, , L7400.0280, L7000.1800 #### [facility] [address] [place], [address] Creatinine [Mass/Vol] 0.62 mg/dL Low 0.70-1.20 [facility] Comment on above: Performed By: #### M 100.3200, M1, L7400.0280, L7000.1800 #### [facility] [address] [place], [address] ECRCL 120.73 ml/min Normal 50-250 [facility] Comment on above: Performed By: #### M 100.3200, .1999, L7400.0280, L7000.1800 #### [facility] [address] [place], [address] GAP 13 Normal 5-15 [facility] Comment on above: Performed By: #### M 100.3200, , L7400.0280, L7000.1800 #### [facility] [address] [place], [address] GFR/1.73 sq M.predicted among non-blacks MDRD (S/P/Bld) [Vol rate/Area] 118 mL/min/{1.73_m2} Normal >60 [facility] Comment on above: Result Comment: mL/m in/1.73m2 CKD-EPI Creatinine Equation (2020) Performed By: #### M 100.3200, , L7400.0280, L7000.1800 #### [facility] [address] [place], [address] Globulin (S) [Mass/Vol] 3.1 g/dL Normal 2.2-4.2 [facility] Comment on above: Performed By: #### M 100.3200, , L7400.0280, L7000.1800 #### [facility] [address] [place], [address] Glucose [Mass/Vol] 115 mg/dL High 70-99 [facility] Comment on above: Performed By: #### M 100.3200, M1, L7400.0280, L7000.1800 #### [facility] [address] [place], [address] Potassium [Moles/Vol] 3.4 mmol/L Normal 3.3-5.1 [facility] Comment on above: Performed By: #### M 100.3200, M100.1999, L7400.0280, L7000.1800 #### [facility] [address] [place], [address] Sodium [Moles/Vol] 138 mmol/L Normal 133-145 [facility] Comment on above: Performed By: #### M 100.3200, M100.1999, L7400.0280, L7000.1800 #### [facility] [address] [place], [address] T PROT 7.2 g/dL Normal 5.9-8.4 [facility] Comment on above: Performed By: #### M 100.3200, M100.1999, L7400.0280, L7000.1800 #### [facility] [address] [place], [address] Urea nitrogen [Mass/Vol] 18 mg/dL Normal 4-19 [facility] Comment on above: Performed By: #### M 100.3200, M100.1999, L7400.0280, L7000.1800 #### [facility] [address] [place], [address] Emergency Department Summary on 03-21-2025 Emergency Department Summary [facility] Medical Records Department [address] [place] [address] Emergency Department Summary 03/21/25 MR#: [id number] Acct: [id number] Name: LILLIAN DRAKE Rep #: [id number] : 1985 39 From: Elia Barroso DO PCP: Dr. Jennifer Werner MD Status:DEP ER Location: ED HPI History of Present Illness Chief Complaint: Abd Pain Narrative Narrative: 39-year-old female with PMH of PCOS has had pelvic pain off and on for months. She started her menstrual cycle yesterday and had lower abdominal and low back cramping. It worsened today after nap and Tylenol and ibuprofen have not been relieving it. She had the pelvic pain for a long time but it worsened after an IUD placement 3 days ago. She saw Dr. Vazquez Azevedo earlier this week to discuss having a hysterectomy which will be scheduled next month. [facility] Medical History (Updated 03/21/25 @ 21:32 by MARCUS Sinclair) Dyspareunia depression History of premature rupture of [...] muscle spasm #30 01/30/25 Unknown Rx tabs levonorgestrel 20.4 mcg/24 hr (up 1 device intrauterine ONCE Unknown History to 8 yrs) 52 mg intrauterine device (Liletta) oxycodone-acetaminophen 5 mg-325 1 tab PO Q8H PRN pain 2 days #6 Unknown Rx mg tablet (Percocet) tabs Allergy/AdvReac Type Severity Reaction Status Date / Time dicyclomine (From Bentyl) Allergy migraine Verified 03/21/25 18:10 Penicillins Allergy Rash Verified 03/21/25 18:10 Surgical History (Updated 03/18/25 @ 10:[address] 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 CVS: Negative for chest pain. Respiratory: Negative for shortness of breath. GI: Positive for abdominal pain. Negative for nausea, vomiting, diarrhea, constipation, melena, hematochezia. : Negative for dysuria, hematuria or frequency. EXAM Physical Exam Narrative Exam Narrative: CONST: Patient sitting in bed appears uncomfortable but nontoxic. EYES: Normal inspection. NECK: Normal inspection. RESP: No respiratory distress, CTAB. CVS: Regular rate and rhythm, no murmur, no gallop. ABD: Soft and nontender, no guarding or rebound, nondistended. SKIN: Color normal, no rash, warm, dry, intact. EXTREMITIES: Normal appearance, no pedal edema. NEURO: Alert and answering questions appropriately. PSYCH: Normal affect. Const Vital Signs: 03/21/25 18:11 03/21/25 20:10 03/21/25 21:40 Temperature 98.1 F 97.6 F L Temperature Source Oral Oral Pulse Rate 68 71 76 Respiratory Rate 18 16 15 Blood Pressure 105/47 L 104/73 115/56 L Blood Pressure Mean 66 83 75 Pulse Ox 97 95 94 Oxygen Delivery Method Room Air Room Air 03/21/25 22:52 03/22/25 00:00 Temperature 97.6 F L Temperature Source Pulse Rate 80 74 Respiratory Rate 15 18 Blood Pressure 123/74 H 111/72 Blood Pressure Mean 90 85 Pulse Ox 94 99 Oxygen Delivery Method Room Air Physical Exam Const Vital Signs: 03/21/25 18:11 03/21/25 20:10 03/21/25 21:40 Temperature 98.1 F 97.6 F L Temperature Source Oral Oral (more content not included)... Normal [facility] Eosinophil percentageOrdered By: Stephany Benavides on 03-21-2025 Eosinophils/100 WBC (Bld) 2.9 % 0-5 [facility] Comment on above: Performed By: #### L 500.2500, L100.0100 ####[facility] [address] [place], [address] Erythrocyte distribution wid th ratioOrdered By: Stephany Benavides on 03-21-2025 Erythrocyte distribution width (RBC) [Ratio] 13.8 % 11.6-14.6 [facility] Comment on above: Performed By: #### L 500.2500, L100.0100 ####[facility] [address] [place], [address] Erythrocyte distribution wid th standard deviationOrdered By: Stephany Benavides on 03-21-2025 Erythrocyte distribution width (RBC) [Ratio] 43.8 fl 35.1-43.9 [facility] Glomerular filtration rate ( GFR) estimation/1.73 sq m using serum, plasma, or whole bOrdered By: Elia Barroso on 03-21-2025 GFR/1.73 sq M.predicted among non-blacks MDRD (S/P/Bld) [Vol rate/Area] 118 mL/min/{1.73_m2} >60 [facility] Comment on above: mL/min/1.73m2 CKD-EP I Creatinine Equation (2020) Hemoglobin measurementOrdere d By: Stephany Benavides on 03-21-2025 Hemoglobin (Bld) [Mass/Vol] 12.9 g/dL 12.0-15.0 [facility] Comment on above: Performed By: #### L 500.2500, L100.0100 ####[facility] [address] [place], [address] Immature granulocytes/100 WB C Auto (Bld)Ordered By: Stephany Benavides on 03-21-2025 Immature granulocytes/100 WBC (Bld) 0.400 % 0.0-0.9 [facility] Comment on above: IG% - Immature Granu locytes (promyelocytes, myelocytes and metamyelocytes) > 1% indicates that a LEFT SHIFT is Present. Ketones Test strip Ql (U)Ord ered By: Stephany Benavides on 03-21-2025 Ketones Ql (U) Negative Negative [facility] - Chemistry and C hemistry - challengeOrdered By: Elia Barroso on 03-21-2025 AST [Catalytic activity/Vol] 15 U/L <32 [facility] Lipaseon 03-21-2025 Lipase [Catalytic activity/Vol] 69 U/L Normal 13-75 [facility] Comment on above: Result Comment: Pleleana ann note: LIPASE revised reference range effective 23. New Lipase methodology. Expected to produce lower values than the previous assay method. NEW Reference Range: 13 - 75 U/L Performed By: #### M 100.3200, M100.2000, L7400.0280, L7000.1800 #### [facility] [address] [place], [address] Lipase measurementOrdered By : Elia Barroso on 03-21-2025 Lipase [Catalytic activity/Vol] 69 U/L 13-75 [facility] Comment on above: Please note:LIPASE r evised reference range effective 23. New Lipase methodology. Expected to produce lower values than the previous assay method. NEW Reference Range: 13 - 75 U/L MCV (mean corpuscular volume ) determinationOrdered By: Stephany Benavides on 03-21-2025 MCV (RBC) [Entitic vol] 87.4 fL 81-99 [facility] Comment on above: Performed By: #### L 500.2500, L100.0100 ####[facility] [address] [place], [address] Mean corpuscular hemoglobin (MCH) determinationOrdered By: Stephany Benavides on 03-21-2025 MCH (RBC) [Entitic mass] 28.6 pg 27.0-32.0 [facility] Comment on above: Performed By: #### L 500.2500, L100.0100 ####[facility] [address] [place], [address] Mean corpuscular hemoglobin concentration (MCHC) determinationOrdered By: Stephany Benavides on 03-21-2025 MCHC (RBC) [Mass/Vol] 32.7 g/dL 32-36 [facility] Comment on above: Performed By: #### L 500.2500, L100.0100 ####[facility] [address] [place], [place], [id number] Mean platelet volume determi nationOrdered By: Stephany Benavides on 03-21-2025 Platelet mean volume (Bld) [Entitic vol] 10.2 fL 6.2-12.0 [facility] Comment on above: Performed By: #### L 500.2500, L100.0100 ####[facility] [address] [place], [place], [address] Microscopic analysis of urin e for red blood cells (RBC)Ordered By: Stephany Benavides on 03-21-2025 Microscopic analysis of urine for red blood cells (RBC) 0 SEEN /hpf 0-5 [facility] Monocyte percentageOrdered B y: Stephany Benavides on 03-21-2025 Monocytes/100 WBC (Bld) 5.2 % 0-10 [facility] Comment on above: Performed By: #### L 500.2500, L100.0100 ####[facility] [address] [place], [place], [id number] Mucus LM Ql (Urine sed)Order ed By: Stephany Benavides on 03-21-2025 Mucus Ql (Urine sed) 2+ /hpf [facility] Neutrophil percentageOrdered By: Stephany Benavides on 03-21-2025 Neutrophils/100 WBC (Bld) 60.6 % 47-70 [facility] Comment on above: Performed By: #### L 500.2500, L100.0100 ####[facility] [address] [place], [place], [address] Nitrite Test strip Ql (U)Ord ered By: Stephany Benavides on 03-21-2025 Nitrite Ql (U) Negative Negative [facility] Nucleated red blood cell per centageOrdered By: Stephany Benavides on 03-21-2025 Nucleated RBC/100 WBC (Bld) [Ratio] 0 % 0-5 [facility] Platelet countOrdered By: Adriana Benavides on 03-21-2025 Platelets (Bld) [#/Vol] 246 10*3/uL 150-450 [facility] Comment on above: Performed By: #### L 500.2500, L100.0100 ####[facility] [address] [place], [place], [address] Potassium measurement (mass/ volume)Ordered By: Elia Barroso on 03-21-2025 Potassium (Unsp spec) [Mass/Vol] 3.4 mmol/L 3.3-5.1 [facility] ,Urineon 03-21-2025 Beta HCG ( test) Ql (U) Negative Normal [facility] Comment on above: Result Comment: Very dilute urine specimens, as indicated by a low specific gravity, may not contain business center representative levels of hCG. If is still suspected, a first morning urine specimen should be collected 48 hours later and tested. Performed By: #### L 400.7600, L400.0001 #### [facility] [address] [place], [place], [id number] Protein Test strip Ql (U)Ord ered By: Stephany Benavides on 03-21-2025 Protein Ql (U) 30 mg/dl High Negative [facility] Serum creatinine measurement (mass/volume)Ordered By: Elia Barroso on 03-21-2025 Creatinine [Mass/Vol] 0.62 mg/dL Low 0.70-1.20 [facility] Serum globulin measurementOr dered By: Elia Barroso on 03-21-2025 Globulin (S) [Mass/Vol] 3.1 g/dL 2.2-4.2 [facility] Serum glucose measurement (m ass/volume)Ordered By: Elia Barroso on 03-21-2025 Glucose [Mass/Vol] 115 mg/dL High 70-99 [facility] Serum or plasma alanine clay otransferase (ALT) measurementOrdered By: Elia Barroso on 03-21-2025 ALT [Catalytic activity/Vol] 11 U/L <35 [facility] Serum or plasma albumin jazmin urement (mass/volume)Ordered By: Elia Laird on 03-21-2025 Albumin [Mass/Vol] 4.1 g/dL 3.5-5.0 [facility] Serum or plasma albumin/glob ulin mass ratioOrdered By: Elia Barroso on 03-21-2025 Albumin/Globulin [Mass ratio] 1.3 {ratio} 0.9-2.4 [facility] Serum or plasma alkaline dedra sphatase measurementOrdered By: Elia Barroso on 03-21-2025 ALP [Catalytic activity/Vol] 63 U/L 35-104 [facility] Serum or plasma calcium jazmin urement (mass/volume)Ordered By: Elia Laird on 03-21-2025 Calcium [Mass/Vol] 9.3 mg/dL 7.6-11.0 [facility] Serum or plasma urea nitroge n measurement (mass/volume)Ordered By: Elia Barroso on 03-21-2025 Urea nitrogen [Mass/Vol] 18 mg/dL 4-19 [facility] Sodium levelOrdered By: Sonido Barroso on 03-21-2025 Sodium [Moles/Vol] 138 mmol/L 133-145 [facility] Squamous epithelial cells de tection in urine sediment by light microscopyOrdered By: Stephany Benavides on 03-21-2025 Epithelial cells.squamous LM Ql (Urine sed) 10-25 SEEN /hpf 5-10 [facility] Total proteinOrdered By: Vance Barroso on 03-21-2025 Protein [Mass/Vol] 7.2 g/dL 5.9-8.4 [facility] Transvaginal Non-on 03-21-2025 Transvaginal Non- [facility] Imaging Services [facility] [address] [place], [place] [id number] Transvaginal Non- MR#: [id number] Acct: [id number] Name: LILLIAN DRAKE Rep #: [id number] : 1985 F 39 From: Reena Esquivel MD PCP: Dr. Jennifer Werner MD Status: REG ER Study: Transvaginal Non- Date of Exam: Exam# [id number] Ordering Dr: Stephany Benavides PROCEDURE: TRANSVAGINAL NON- 03/21/2025 REASON FOR EXAM: PELVIC PAIN TECHNIQUE: TRANSVAGINAL NON- COMPARISON: 03/06/2025. FINDINGS: Uterus measures 11.1 x 6.0 x 5.3 cm. Anteverted. No fibroids. Endometrium measures 5 mm. Nabothian cysts are present. An intrauterine device is oriented correctly within the endometrial canal. Right ovary measures 2.6 x 1.9 x 2.0 cm with preserved vascular flow. Left ovary measures 3.8 x 2.7 x 2.5 cm with preserved vascular flow. No free fluid. US/Transvaginal Non- IMPRESSION: Intrauterine device in place. Reading Location: [id number] CC: Dr. Jennifer Werner MD; MARCUS Sinclair Welfare Adviser: Signed Normal [facility] Urinalysis, Completeon 03-21 BACTERIA 3+ /hpf Normal None Seen [facility] Comment on above: Order Comment: CLEAN CATCH Performed By: #### L 400.7600, L400.0001 #### [facility] [address] [place], [address] EPI,SQUAMOUS 10-25 SEEN Normal 5-10 [facility] Comment on above: Order Comment: CLEAN CATCH Performed By: #### L 400.7600, L400.0001 #### [facility] [address] [place], [address] Mucus Ql (Urine sed) 2+ /hpf Normal [facility] Comment on above: Order Comment: CLEAN CATCH Performed By: #### L 400.7600, L400.0001 #### [facility] [address] [place], [address] WBC 0-5 SEEN Normal 0-5 [facility] Comment on above: Order Comment: CLEAN CATCH Performed By: #### L 400.7600, L400.0001 #### [facility] [address] [place], [address] BILIRUBIN URINE Negative Normal Negative [facility] Comment on above: Order Comment: CLEAN CATCH Performed By: #### L 400.7600, L400.0001 #### [facility] [address] [place], [address] Clarity (U) Sl. Cloudy Normal Clear [facility] Comment on above: Order Comment: CLEAN CATCH Performed By: #### L 400.7600, L400.0001 #### [facility] [address] [place], [address] Color (U) Yellow Normal Yellow [facility] Comment on above: Order Comment: CLEAN CATCH Performed By: #### L 400.7600, L400.0001 #### [facility] [address] [place], [address] GLUCOSE, UR Normal Normal Normal [facility] Comment on above: Order Comment: CLEAN CATCH Performed By: #### L 400.7600, L400.0001 #### [facility] [address] [place], [address] KETONE UR Negative Normal Negative [facility] Comment on above: Order Comment: CLEAN CATCH Performed By: #### L 400.7600, L400.0001 #### [facility] [address] [place], [address] LEUK ESTERASE Negative Normal Negative [facility] Comment on above: Order Comment: CLEAN CATCH Performed By: #### L 400.7600, L400.0001 #### [facility] [address] [place], [address] Nitrite Ql (U) Negative Normal Negative [facility] Comment on above: Order Comment: CLEAN CATCH Performed By: #### L 400.7600, L400.0001 #### [facility] [address] [place], [address] OCCULT BLOOD-UR 50 /ul Abnormal Negative [facility] Comment on above: Order Comment: CLEAN CATCH Performed By: #### L 400.7600, L400.0001 #### [facility] [address] [place], [address] pH UR 5.0 Normal 5.0 - 8.0 [facility] Comment on above: Order Comment: CLEAN CATCH Performed By: #### L 400.7600, L400.0001 #### [facility] [address] [place], [address] PROT DIPSTX 30 mg/dl Abnormal Negative [facility] Comment on above: Order Comment: CLEAN CATCH Performed By: #### L 400.7600, L400.0001 #### [facility] [address] [place], [address] SP.GR. DIPSTX 1.025 Normal 1.002-1.030 [facility] Comment on above: Order Comment: CLEAN CATCH Performed By: #### L 400.7600, L400.0001 #### [facility] [address] [place], [address] UROBILI Normal Normal Normal [facility] Comment on above: Order Comment: CLEAN CATCH Performed By: #### L 400.7600, L400.0001 #### [facility] [address] [place], [address] RBC 0 SEEN Normal 0-5 [facility] Comment on above: Order Comment: CLEAN CATCH Performed By: #### L 400.7600, L400.0001 #### [facility] [address] [place], [address] Urine clarityOrdered By: Iesha Benavides on 03-21-2025 Clarity (U) Sl. Cloudy Clear [facility] Urine color determinationOrd ered By: Stephany Benavides on 03-21-2025 Color (U) Yellow Yellow [facility] Urine cultureOrdered By: Iesha Benavides on 03-21-2025 Bacteria identified Cx Nom (U) Positive Abnormal [facility] Urine glucose detectionOrder ed By: Stephany Benavides on 03-21-2025 Glucose Ql (U) Normal mg/dl Normal [facility] Urine leukocyte esterase det ection by dipstickOrdered By: Stephany Benavides on 03-21-2025 Leukocyte esterase Test strip Ql (U) Negative Negative [facility] Urine pHOrdered By: Stephany gonzalez on 03-21-2025 pH (U) 5.0 [pH] 5.0 - 8.0 [facility] Urine testOrdered By: Stephany Benavides on 03-21-2025 HCG ( test) Ql (U) Negative [facility] Comment on above: Very dilute urine sp ecimens, as indicated by a low specificgravity, may not contain business center representative levels of hCG. If is still suspected, a first morning urinespecimen should be collected 48 hours later and tested. Urine sediment bacteria coun t by microscopy (number/high power field)Ordered By: Stephany Benavides on 03-21-2025 Bacteria LM.HPF (Urine sed) [#/Area] 3 /[HPF] None Seen [facility] Urine specific gravity measu rementOrdered By: Stephany Benavides on 03-21-2025 Specific gravity (U) [Rel density] 1.025 1.002-1.030 [facility] Urine urobilinogen measureme ntOrdered By: Stephany Benavides on 03-21-2025 Urobilinogen Ql (U) Normal mg/dl Normal [facility] White blood cell (WBC) count Ordered By: Stephany Benavides on 03-21-2025 WBC (Bld) [#/Vol] 9.6 10*3/uL 4.4-11.0 [facility] Comment on above: Performed By: #### L 500.2500, L100.0100 ####[facility] [address] [place], [address] White blood cell countOrdere d By: Stephany Benavides on 03-21-2025 White blood cell count 0-5 SEEN /hpf 0-5 [facility] Cna Per Diem Office Visit Reporton 03-18-2025 Cna Per Diem Office Visit Report [facility] [address], [address] [place] [address] OFFICE VISIT Date of Service: 03/18/25 MR#: [id number] Acct: [id number] Name: LILLIAN DRAKE Rep #: [id number] : 1985 Provider: Dr. Maria hansen MD Age/Sex: 39/F [place] [facility] [place]: Signed Intake Vital Signs 12/21/24 11:17 03/06/25 10:02 03/18/25 09:30 Height 5 ft 3 in 5 ft 3 in 5 ft 3 in Weight: 166 lb 6 oz BMI 29.5 BP 99/56 L Intake Visit Reasons: 3 M Adenomyosis FU, Hysterectomy Consult per CB 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: No Is patient in pain?: Yes [...] 8 yrs) 52 mg intrauterine device (Liletta) [facility] Medical History (Updated 03/18/25 @ 10:17 by [...] (Updated 03/18/25 @ 10:[address] 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 Scott on Jass Mike 06/24/22 Gabi 33 live - Male spinal [facility] Scott on Jass Mike Delivery Date: [...] abdominal p (more content not included)... Normal [facility] Bilirubin Test strip Ql (U)O rdered By: Al Hassan on 03-06-2025 Bilirubin Ql (U) 1 mg/dL High Negative [facility] Comment on above: COLOR OF URINE MAY A FFECT DIPSTICK RESULTS. Emergency Department Summary on 03-06-2025 Emergency Department Summary [facility] Medical Records Department [address] [place] [id number] Emergency Department Summary 03/06/25 MR#: [id number] Acct: [id number] Name: LILLIAN DRAKE Rep #: [id number] : 1985 39 From: Al Hassan MD [...] so she has another appointment with her candy catcher in 2 weeks but was in more [...] for possible hysterectomy coming up with same candy catcher. 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 Normal [facility] Ketones Test strip Ql (U)Ord ered By: Al Hassan on 03-06-2025 Ketones Ql (U) 5 mg/dl High Negative [facility] Microscopic analysis of urin e for red blood cells (RBC)Ordered By: Al Hassan on 03-06-2025 Microscopic analysis of urine for red blood cells (RBC) 0 SEEN /hpf 0-5 [facility] Mucus LM Ql (Urine sed)Order ed By: Al Hassan on 03-06-2025 Mucus Ql (Urine sed) 1+ /hpf [facility] Nitrite Test strip Ql (U)Ord ered By: Al Hassan on 03-06-2025 Nitrite Ql (U) Negative Negative [facility] ,Urineon 03-06-2025 Beta HCG ( test) Ql (U) Negative Normal [facility] Comment on above: Result Comment: Very dilute urine specimens, as indicated by a low specific gravity, may not contain business center representative levels of hCG. If is still suspected, a first morning urine specimen should be collected 48 hours later and tested. Performed By: #### L 400.0001, L400.7600 ####[facility] [address] [facility] [place], [place], [id number] Protein Test strip Ql (U)Ord ered By: Al Hassan on 03-06-2025 Protein Ql (U) 30 mg/dl High Negative [facility] Squamous epithelial cells de tection in urine sediment by light microscopyOrdered By: Al Hassan on 03-06-2025 Epithelial cells.squamous LM Ql (Urine sed) 0-5 SEEN /hpf 5-10 [facility] Transvaginal Non-on 03-06-2025 Transvaginal Non- [facility] Imaging Services [address] [place] [address] Transvaginal Non- MR#: [id number] Acct: [id number] Name: LILLIAN DRAKE Rep #: [id number] : 1985 F 39 From: Dilshad Joya PCP: Dr. Jennifer Werner MD Status: [facility] ER Study: Transvaginal Non- Date of Exam: Exam# [id number] Ordering Dr: Al Hassan MD PROCEDURE: TRANSVAGINAL [...] 3. Satisfactory intrauterine device positioning Reading Location: [address] CC: Dr. Al Hassan MD; Dr. Jennifer Werner MD Welfare Adviser: Signed Normal [facility] Urinalysis, Completeon 03-06 BACTERIA 1+ /hpf Normal None Seen [facility] Comment on above: Order Comment: EDE CTOR TO SPECIFY Performed By: #### L 400.0001, L400.7600 ####[facility] [address] [place], [address] EPI,SQUAMOUS 0-5 SEEN Normal 5-10 [facility] Comment on above: Order Comment: EDE CTOR TO SPECIFY Performed By: #### L 400.0001, L400.7600 ####[facility] [address] [place], [address] Mucus Ql (Urine sed) 1+ /hpf Normal [facility] Comment on above: Order Comment: [facility] CTOR TO SPECIFY Performed By: #### L 400.0001, L400.7600 ####[facility] [address] [place], [address] WBC 0-5 SEEN Normal 0-5 [facility] Comment on above: Order Comment: [facility] CTOR TO SPECIFY Performed By: #### L 400.0001, L400.7600 ####[facility] [address] [place], [address] RBC 0 SEEN Normal 0-5 [facility] Comment on above: Order Comment: COLLE CTOR TO SPECIFY Performed By: #### L 400.0001, L400.7600 ####[facility] [address] [place], [address] Urine clarityOrdered By: Jose Alfredo Hassan on 03-06-2025 Clarity (U) Clear Clear [facility] Urine color determinationOrd ered By: Al Hassan on 03-06-2025 Color (U) Yellow Yellow [facility] Urine glucose detectionOrder ed By: Al Hassan on 03-06-2025 Glucose Ql (U) Normal mg/dl Normal [facility] Urine leukocyte esterase det ection by dipstickOrdered By: Al Hassan on 03-06-2025 Leukocyte esterase Test strip Ql (U) 25 /ul High Negative [facility] Urine pHOrdered By: Al Hassan on 03-06-2025 pH (U) 6.0 [pH] 5.0 - 8.0 [facility] Urine testOrdered By: Al Hassan on 03-06-2025 HCG ( test) Ql (U) Negative [facility] Comment on above: Very dilute urine sp ecimens, as indicated by a low specificgravity, may not contain business center representative levels of hCG. If is still suspected, a first morning urinespecimen should be collected 48 hours later and tested. Urine sediment bacteria coun t by microscopy (number/high power field)Ordered By: Al Hassan on 03-06-2025 Bacteria LM.HPF (Urine sed) [#/Area] 1 /[HPF] None Seen [facility] Urine specific gravity measu rementOrdered By: Al Hassan on 03-06-2025 Specific gravity (U) [Rel density] 1.020 1.002-1.030 [facility] Urine urobilinogen measureme ntOrdered By: Al Hassan on 03-06-2025 Urobilinogen Ql (U) Normal mg/dl Normal [facility] White blood cell countOrdere d By: Al Hassan on 03-06-2025 White blood cell count 0-5 SEEN /hpf 0-5 [facility] Laboratory - Chemistry and C hemistry - challengeOrdered By: Azeb Morris on 02-27-2025 Bilirubin Ql (U) Negative [facility] Glucose Ql (U) Negative [facility] Ketones Ql (U) Negative [facility] pH (U) 6.5 [pH] [facility] Specific gravity (U) [Rel density] 1.015 [facility] Urobilinogen (U) [Mass/Vol] Negative [facility] - Hematology and Cell countsOrdered By: Azeb Morris on 02-27-2025 Hemoglobin Ql (U) Moderate [facility] - Specimen inform ationOrdered By: Azeb Morris on 02-27-2025 Clarity (U) Clear [facility] Color (U) Yellow [facility] - UrinalysisOrder ed By: Azeb Morris on 02-27-2025 Nitrite Ql (U) Negative [facility] Protein Ql (U) Negative [facility] No Panel InformationOrdered By: Azeb Morris on 02-27-2025 Urine Leukocytes Negatve [facility] Urine Non-Hemolyzed Blood [facility] Cna Per Diem Office Visit Reporton 02-27-2025 Cna Per Diem Office Visit Report [facility] [address], [address] [place] [address] OFFICE VISIT Date of Service: 02/27/25 MR#: [id number] Acct: [id number] Name: DRAKELILLIAN ROSY Rep #: [id number] : 1985 Provider: EMERITA Thomas Age/Sex: 39/F [place] [facility] [place]: Signed Intake Vital Signs 02/18/25 08:29 02/27/25 10:31 Height 5 ft 3 in 5 ft 3 in Weight: 165 lb BMI 29.2 BP 102/66 Intake Visit Reasons: Pelvic pain 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: No Is patient in pain?: No [...] Patient : No : No Control Method: liletta- 2024 [facility] Medical History Dyspareunia depression History of premature [...] occupational status: employed 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; [employer] Smoking Status: Former smoker alcohol intake: current details: occasionally; not while substance use type: marijuana caffeine: Yes what type of physical activity do you participate in: none seatbelt use: always do you feel safe at home: Yes additional social history: Baljinder PULLIAM Pelvic pain Details: LILLIAN DRAKE is a [...] Unknown 2018 SAB, D C SM 08/14/09 Toyb Joaquin 34 live - 4lbs 11oz Male 2 hours epidural Ak daisy General 02/14/16 Emily 38 live - full term 7lbs 13oz Female 26 hours epidural Jeffery Fiore 06/24/22 Amaury 33 live - Male spinal [facility] Scott on Jass Mike 06/24/22 Gabi 33 live - Male spinal [facility] Soctt on Jass Mike Delivery Date: 08/14/09 Last Updated by: Alison Noel Pre-term labor. Delivery Date: 02/14/16 Last Updated by: Alison Noel No issues during or delivery. Delivery Date: 06/24/22 Last Updated by: Charis Desai see problem list for complications, and ptl pprom 33 [facility]. Delivery Date: 06/24/22 Last Updated by: Charis Desai See problem list for complications, and ptl pprom 33 [facility]. ROS Const Constitutional: Reports headache(s); Denies fatigue, fever(s), increased appetite, poor appetite, weight gain or weight loss Cardio Card: Denies chest pain Resp Resp: Denies cough or dyspnea GI GI: Reports as p (more content not included)... [facility] 02-18-2025 [facility] Telephone ([id number]) LILLIAN DRAKE ([id number]) 1985 F Date Time Provider Department 02/18/25 JENNIFER WERNER [id number] During your visit today, we recorded the following information about you: Madalyn LomasDELIA 02/18/2025 4:02 PM Signed ----- Message from [...] [facility] TRIAGE POOL [[id number]] Patient: Lillian Drake Date of : 1985 [...] appt this week. Was Patient Referred to [facility]/Seek Emergency Treatment (Y/N): N/A Did Patient Agree (Y/N): N/A Was An Attempt Made To Transfer The Patient To The Office (Y/N): No Were You Able To Reach Someone At The Office (Y/N): N/A If Yes - Patient Was Transferred To (Caregivers Name): N/A If No - Which [facility] Leadership Scale Tester Did You Speak With Regarding This Patient: N/A Was an appointment scheduled (Y/N): no Reason patient was requesting visit (RFV/signs and symptoms/diagnosis) : Pain meds Person calling if other than patient: N/A Return call to if other than patient: N/A Best contact number: [phone] Thank you, Kristen Bridges February 18, 2025 3:35 PM Madalyn Lomas LPN 02/18/2025 4:04 PM Signed Returned patients call. She was seen in [place] ER this morning and does not feel [...] Patient requ (more content not included)... Normal [facility] Emergency Department Summary on 02-18-2025 Emergency Department Summary [facility] Medical Records Department [address] [place] [address] Emergency Department Summary 02/18/25 MR#: [id number] Acct: [id number] Name: LILLIAN DRAKE Rep #: [id number] : 1985 39 From: Kevin Heart DO [...] carrying groceries in and bent over to pick out hand her child and noted that she felt a pop. She states that progressively over the last few days the pain in her lower back had been progressing she states that it shoots down both of her legs. She states that she has been urinating normally for self and having normal bowel movements. Patient states that she has been taking naproxen fcqisw-bjo-bekjx as well as rotating Tylenol and there without much relief. 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 Normal [facility] L/S Spine Min 4 Viewson 05-5 L/S Spine Min 4 Views [facility] Imaging Services [address] [place], [place] [address] L/S Spine Min 4 Views MR#: [id number] Acct: [id number] Name: LILLIAN DRAKE Rep #: [id number] : 1985 F 39 From: Vazquez Redd MD PCP: Dr. Jennifer Werner MD Status: REG ER Study: L/S Spine Min 4 Views Date of Exam: 02/18/25 Exam# [id number] Ordering Dr: Kevin Heart DO EXAM: XR [...] Views IMPRESSION: No acute fracture. Reading Location: [facility] CC: Dr. Jennifer Werner MD; Dr. Kevin Heart DO Welfare Adviser: Signed Normal [facility] Pelvic w/ Transvaginalon Pelvic w/ Transvaginal [facility] Imaging Services [address] [place] [address] Pelvic w/ Transvaginal MR#: [id number] Acct: [id number] Name: LILLIAN DRAKE Rep #: [id number] : 1985 F 39 From: Junior William MD PCP: [facility] DOCTOR Status: REG CLI Study: Pelvic w/ Transvaginal Date of Exam: 02/08/25 Exam# [id number] Ordering Dr: Maria Regan PROCEDURE: PELVIC W/ [...] appears within limits as above. Reading Location: [facility] CC: Dr. Maria Regan MD Welfare Adviser: Signed Normal [facility] Cna Per Diem Office Visit Reporton 01-07-2025 Cna Per Diem Office Visit Report [facility] [address], [address] [place] [address] OFFICE VISIT Date of Service: 01/07/25 MR#: [id number] Acct: [id number] Name: LILLIAN DRAKE Rep #: [id number] : 1985 Provider: Dr. 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 Scott on Jass Mike 06/24/22 Gabi 33 live - Male spinal [facility] Scott on Jass Mike Delivery Date: 08/14/09 Last Updated by: Alsion Noel Pre-term labor. Delivery Date: 02/14/16 Last [...] in doyle (more content not included)... Normal [facility] 25(OH)D3 [facility] 2024 25-hydroxyvitamin D3 [Mass/Vol] 49.1 ng/mL Normal 31.0-80.0 [facility] Comment on above: Order Comment: Speci men Type: BLOOD SPECIMENOrdering Facility: [facility] Address: [address] [place] [address] Performed By: #### 1 989-3 ####[facility] LABCLIA [id number] [place] [address] [place] CBC panel Auto (Bld)on 12-31 Erythrocyte distribution width (RBC) [Ratio] 13.6 % Normal 11.5-15.0 [facility] Comment on above: Order Comment: Speci men Type: BLOOD SPECIMENOrdering Facility: [facility] Address: [address] [place] [address] Performed By: #### 5 8410-2 ####[facility] LABCLIA [id number] [place] [address] [place] Hematocrit (Bld) [Volume fraction] 39.3 % Normal 36.0-46.0 [facility] Comment on above: Order Comment: Speci men Type: BLOOD SPECIMENOrdering Facility: [facility] Address: [address] [place] [address] Performed By: #### 5 8410-2 ####[facility] LABIA [id number] [place] [address] [place] Hemoglobin (Bld) [Mass/Vol] 12.9 g/dL Normal 11.5-15.5 [facility] Comment on above: Order Comment: Speci men Type: BLOOD SPECIMENOrdering Facility: [facility] Address: [address] [place] [address] Performed By: #### 5 8410-2 ####[facility] LABIA [id number] [place] [address] [place] MCH (RBC) [Entitic mass] 29.3 pg Normal 26.0-34.0 [facility] Comment on above: Order Comment: Speci men Type: BLOOD SPECIMENOrdering Facility: [facility] Address: [address] [place] [address] Performed By: #### 5 8410-2 ####[facility] LABIA [id number] [place] [address] [place] MCHC (RBC) [Mass/Vol] 32.8 g/dL Normal 30.5-36.0 [facility] Comment on above: Order Comment: Speci men Type: BLOOD SPECIMENOrdering Facility: [facility] Address: [address] [place] [address] Performed By: #### 5 8410-2 ####[facility] LABCLIA [id number] [place] [address] [place] MCV (RBC) [Entitic vol] 89.1 fL Normal 80.0-100.0 [facility] Comment on above: Order Comment: Speci men Type: BLOOD SPECIMENOrdering Facility: [facility] Address: [address] [place] [address] Performed By: #### 5 8410-2 ####[facility] LABCLIA [id number] [place] [address] [place] Nucleated RBC (Bld) [#/Vol] 10*3/uL Normal <0.01 [facility] Comment on above: Order Comment: Speci men Type: BLOOD SPECIMENOrdering Facility: [facility] Address: [address] [place] [address] Performed By: #### 5 8410-2 ####[facility] LABIA [id number] [place] [address] [place] Platelet mean volume (Bld) [Entitic vol] 10.8 fL Normal 9.0-12.7 [facility] Comment on above: Order Comment: Speci men Type: BLOOD SPECIMENOrdering Facility: [facility] Address: [address] [place] [address] Performed By: #### 5 8410-2 ####[facility] LABCLIA [id number] [place] [id number] [place] Platelets (Bld) [#/Vol] 219 10*3/uL Normal 150-400 [facility] Comment on above: Order Comment: Speci men Type: BLOOD SPECIMENOrdering Facility: [facility] Address: [address] [place] [address] Performed By: #### 5 8410-2 ####[facility] LABCLIA [id number] [address] [address] [place] RBC (Bld) [#/Vol] 4.41 10*6/uL Normal 3.90-5.[address] [facility] Comment on above: Order Comment: Speci men Type: BLOOD SPECIMENOrdering Facility: [facility] Address: [address] [place] [address] Performed By: #### 5 8410-2 ####[facility] LABCLIA [id number] [place] [address] [place] WBC (Bld) [#/Vol] 7.84 10*3/uL Normal 3.70-11.[address] [facility] Comment on above: Order Comment: Speci men Type: BLOOD SPECIMENOrdering Facility: [facility] Address: [address] [place] [address] Performed By: #### 5 8410-2 ####[facility] LABIA [id number] [place] [address] [place] Comprehensive metabolic 2000 panelon 12-31-2024 Albumin [Mass/Vol] 4.1 g/dL Normal 3.9-4.9 [facility] Comment on above: Order Comment: Speci men Type: BLOOD SPECIMENOrdering Facility: [facility] Address: [address] [place] [address] Performed By: #### 3 016-3, 30308-2, 44671-1 ####[facility] LABIA [id number] [place] [address] [place] ALP [Catalytic activity/Vol] 62 U/L Normal 34-123 [facility] Comment on above: Order Comment: Speci men Type: BLOOD SPECIMENOrdering Facility: [facility] Address: [address] [place] [address] Performed By: #### 3 016-3, 65995-9, 65948-1 ####[facility] LABCLIA [id number] [address] [id number] [address] [place] ALT [Catalytic activity/Vol] 16 U/L Normal 7-38 [facility] Comment on above: Order Comment: Speci men Type: BLOOD SPECIMENOrdering Facility: [facility] Address: [address] [place] [address] Performed By: #### 3 016-3, 67091-2, 44265-1 ####[facility] LABCLIA [id number] [facility] [address] [address] [place] Anion gap [Moles/Vol] 9 mmol/L Normal 8-15 [facility] Comment on above: Order Comment: Speci men Type: BLOOD SPECIMENOrdering Facility: [facility] Address: [address] [place] [address] Performed By: #### 3 016-3, 33716-7, 70176-7 ####[facility] LABCLIA [id number] [place] [id number] [place] AST [Catalytic activity/Vol] 19 U/L Normal 13-35 [facility] Comment on above: Order Comment: Speci men Type: BLOOD SPECIMENOrdering Facility: [facility] Address: [address] [place] [address] Performed By: #### 3 016-3, 67641-6, ####[facility] LABCLIA [id number] [facility] [address] [address] [place] Bilirubin [Mass/Vol] 0.3 mg/dL Normal 0.2-1.3 [facility] Comment on above: Order Comment: Speci men Type: BLOOD SPECIMENOrdering Facility: [facility] Address: [address] [place], [place] [address] Performed By: #### 3 016-3, 63881-4, 91560-0 ####[facility] [facility] LABCLIA [id number] [facility] [address] [address] [place] Calcium [Mass/Vol] 9.5 mg/dL Normal 8.5-10.2 [facility] Comment on above: Order Comment: Speci men Type: BLOOD SPECIMENOrdering Facility: [facility] Address: [address] [place] [address] Performed By: #### 3 016-3, 79770-9, 59195-4 ####[facility] LABCLIA [id number] [place] [id number] [place] Chloride [Moles/Vol] 106 mmol/L Normal 98-107 [facility] Comment on above: Order Comment: Speci men Type: BLOOD SPECIMENOrdering Facility: [facility] Address: [address] [place] [address] Performed By: #### 3 016-3, 83866-8, 22982-9 ####[facility] LABCLIA [id number] [place] [address] [place] CO2 [Moles/Vol] 21 mmol/L Low 22-30 [facility] Comment on above: Order Comment: Speci men Type: BLOOD SPECIMENOrdering Facility: [facility] Address: [address] [place] [address] Performed By: #### 3 016-3, , ####[facility] LABCLIA [id number] [place] [address] [place] Creatinine [Mass/Vol] 0.61 mg/dL Normal 0.58-0.96 [facility] Comment on above: Order Comment: Speci men Type: BLOOD SPECIMENOrdering Facility: [facility] Address: [address] [place] [address] Performed By: #### 3 016-3, 74288-3, 30873-0 ####[facility] LABCLIA [id number] [place] [address] [place] Creatinine and Glomerular filtration rate.predicted panel (S/P/Bld) 118 mL/min/1.73m??? Normal >=60 [facility] Comment on above: Order Comment: Speci men Type: BLOOD SPECIMENOrdering Facility: [facility] Address: [address] [place] [address] Result Comment: Callie mated Glomerular Filtration Rate [...] actual GFR. Performed By: #### 3 016-3, 25555-2, 85316-5 ####[facility] [id number] [place] [address] [place] Glucose [Mass/Vol] 85 mg/dL Normal 74-99 [facility] Comment on above: Order Comment: Shellie bell Type: BLOOD SPECIMENOrdering Facility: [facility] Address: [address] [place] [address] Result Comment: The [place] Diabetes Association (ADA) provides guidance for cutoff [...] Standards of Medical Care in Diabetes 2016, [place] Diabetes Association. Diabetes Care. 2016.39(Suppl 1). Performed By: #### 3 016-3, 16203-0, ####[facility] [id number] [place] [id number] [place] Potassium [Moles/Vol] 4.1 mmol/L Normal 3.7-5.1 [facility] Comment on above: Order Comment: Shellie bell Type: BLOOD SPECIMENOrdering Facility: [facility] Address: [address] [place] [id number] Performed By: #### 3 016-3, 26751-5, 96033-9 ####[facility] LABIA [id number] [address] [address] [place] Protein [Mass/Vol] 6.9 g/dL Normal 6.3-8.0 [facility] Comment on above: Order Comment: Speci men Type: BLOOD SPECIMENOrdering Facility: [facility] Address: [address] [place] [address] Performed By: #### 3 016-3, 82519-7, 18550-8 ####[facility] LABIA [id number] [place] [address] [place] Sodium [Moles/Vol] 136 mmol/L Normal 136-144 [facility] Comment on above: Order Comment: Speci men Type: BLOOD SPECIMENOrdering Facility: [facility] Address: [address] [place] [address] Performed By: #### 3 016-3, 04574-7, 67866-8 ####[facility] LABIA [id number] [place] [id number] [place] Urea nitrogen [Mass/Vol] 13 mg/dL Normal 7-21 [facility] Comment on above: Order Comment: Speci men Type: BLOOD SPECIMENOrdering Facility: [facility] Address: [address] [place] [address] Performed By: #### 3 016-3, 61692-3, 93753-1 ####[facility] [id number] [address] [address] [place] HbA1c (Bld)on 12-31-2024 Average glucose Estimated from glycated hemoglobin (Bld) [Mass/Vol] 88 mg/dL Normal [facility] Comment on above: Order Comment: Speci men Type: BLOOD SPECIMENOrdering Facility: [facility] Address: [address] [place] [address] Result Comment: eAG: (Estimated average glucose) is a calculated value from HgbA1c and is business center representative of the average blood glucose level in the last 2-3 month period. Performed By: #### 5 5454-3 ####[facility] LABIA [id number] [place] [address] [place] HbA1c (Bld) [Mass fraction] 4.7 % Normal 4.3-5.6 [facility] Comment on above: Order Comment: Shellie bell Type: BLOOD SPECIMENOrdering Facility: [facility] Address: [address] [place] [address] Result Comment: Amer [place] Diabetes Association guidelines indicate that patients with HgbA1c in the range 5.7-6.4% are at increased risk for development of diabetes, and intervention by lifestyle modification may be beneficial. HgbA1c greater or equal to 6.5% is considered diagnostic of diabetes. Performed By: #### 5 5454-3 ####[facility] LABIA [id number] [place] [address] [place] Lipid 1996 panelon 5 Cholesterol [Mass/Vol] 204 mg/dL High <200 [facility] Comment on above: Order Comment: Shellie bell Type: BLOOD SPECIMENOrdering Facility: [facility] Address: [address] [place] [address] Result Comment: <200 mg/dL, Desirable 200-239 mg/dL, Borderline high >239 mg/dL, High Performed By: #### 3 016-3, 35385-9, 47741-9 ####[facility] LABIA [id number] [address] [place] Cholesterol in HDL [Mass/Vol] 49 mg/dL Normal >39 [facility] Comment on above: Order Comment: Shellie bell Type: BLOOD SPECIMENOrdering Facility: [facility] Address: [address] [place] [address] Result Comment: 40-5 9 mg/dL, Acceptable >59 mg/dL, High: Negative risk factor for coronary heart disease <40 mg/dL, Low: Positive risk factor for coronary heart disease Performed By: #### 3 016-3, 12815-4, 78611-3 ####[facility] LABCLIA [id number] [place] [id number] [place] Cholesterol in LDL [Mass/Vol] 106 mg/dL High <100 [facility] Comment on above: Order Comment: Speci men Type: BLOOD SPECIMENOrdering Facility: [facility] Address: [address] [place] [address] Result Comment: <100 mg/dL, Optimal 100-129 mg/dL, Near optimal/above optimal 130-159 mg/dL, Borderline high 160-189 mg/dL, High >189 mg/dL, Very high Secondary prevention optimal LDL Cholesterol levels are recommended to be < 70 mg/dL Performed By: #### 3 016-3, 69272-4, 88882-2 ####[facility] LABIA [id number] [address] [place] [facility] Cholesterol in LDL/Cholesterol in HDL [Mass ratio] 2.16 {ratio} Normal <2.54 [facility] Comment on above: Order Comment: Speci men Type: BLOOD SPECIMENOrdering Facility: [facility] Address: [address] [place] [address] Result Comment: Refe rence: 1. National Cholesterol Education Program ATP III Guideline At-A-Glance Quick Desk Reference: National Heart, Lung, and Blood [place]. National Institutes of Health. 2001: NIH Publication No. 01-3305. 2. An International Atherosclerosis Society position paper: global recommendations for the management of dyslipidemia: executive summary, Atherosclerosis. 2014: 232(2):410-413. Performed By: #### 3 016-3, 04259-0, 79106-2 ####[facility] LABIA [id number] [address] [place] Cholesterol in VLDL [Mass/Vol] 49 mg/dL High <30 [facility] Comment on above: Order Comment: Speci men Type: BLOOD SPECIMENOrdering Facility: [facility] Address: [address] [place] [address] Performed By: #### 3 016-3, 47440-1, 42536-1 ####[facility] LABCLIA [id number] [address] [place] [address] [place] Cholesterol non HDL [Mass/Vol] 155 mg/dL High <130 [facility] Comment on above: Order Comment: Speci men Type: BLOOD SPECIMENOrdering Facility: [facility] Address: [address] [place] [address] Result Comment: <130 mg/dL, Optimal 130-159 mg/dL, Near optimal/above optimal 160-189 mg/dL, Borderline high 190-219 mg/dL, High >219 mg/dL, Very high Secondary prevention optimal non HDL Cholesterol levels are recommended to be <100 mg/dL Performed By: #### 3 016-3, , 00039-8 ####[facility] LABCLIA [id number] [place] [address] [place] Cholesterol.total/Chol esterol in HDL [Mass ratio] 4.16 {ratio} Normal <5.10 [facility] Comment on above: Order Comment: Speci men Type: BLOOD SPECIMENOrdering Facility: [facility] Address: [address] [place] [address] Performed By: #### 3 016-3, , ####[facility] LABCLIA [id number] [place] [id number] [place] FASTING TIME 12 hrs Normal [facility] Comment on above: Order Comment: Speci men Type: BLOOD SPECIMENOrdering Facility: [facility] Address: [address] [place] [address] Performed By: #### 3 016-3, , ####[facility] LABCLIA [id number] [address] [place] [address] [place] Triglyceride [Mass/Vol] 245 mg/dL High <150 [facility] Comment on above: Order Comment: Speci men Type: BLOOD SPECIMENOrdering Facility: [facility] Address: [address] [place] [address] Result Comment: <150 mg/dL, Normal 150-199 mg/dL, Borderline high 200-499 mg/dL, High >499 mg/dL, Very high Performed By: #### 3 016-3, 77743-4, 64749-3 ####[facility] LABCLIA [id number] [place] [id number] [place] TSH SerPl-aCncon 12-31-2024 TSH Qn 0.901 m[IU]/L Normal 0.270-4.200 [facility] Comment on above: Order Comment: Speci men Type: BLOOD SPECIMENOrdering Facility: [facility] Address: [address] [place] [address] Result Comment: If t he patient is , TSH reference range varies by gestational period: First Trimester (weeks 9-12): 0.180-2.990 mIU/L Second Trimester: 0.110-3.980 mIU/L Third Trimester: 0.480-4.710 mIU/L Chau Reynolds et al. A Practical Approach for the Verifications and Determination of Site- and Trimester-Specific Reference Intervals for Thyroid Function tests in . Thyroid, 2019:29:3:412-420. Andrews Mishra, et al. 2017 Guidelines of the [place] Thyroid Association for the Diagnosis and Management of Thyroid Disease during and the . Thyroid, 2017:27:3:315-389. Performed By: #### 3 016-3, 94453-3, 64238-1 ####[facility] LABCLIA [id number] [address] [address] [place] CNCOon 12-25-2024 CNCO Letter Text Normal [facility] Cna Per Diem Office Visit Reporton 12-21-2024 Cna Per Diem Office Visit Report [facility] [address], [address] [place] [address] OFFICE VISIT Date of Service: 12/21/24 MR#: [id number] Acct: [id number] Name: LILLIAN DRAKE Rep #: [id number] : 1985 Provider: Dr. 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 Scott on Jass Mike 06/24/22 Gabi 33 live - Male spinal [facility] Scott on Jass Mike Delivery Date: 08/14/09 Last Updated by: Alison Noel Pre-term labor. Delivery Date: 02/14/16 Last Updated by: Alison Noel No issues during or delivery. Delivery Date: 06/24/22 Last Updated by: Charis Desai see problem list for complications, and [facility] Delivery Date: 06/24/22 Last Updated by: Charis [...] incontinence, urinary (more content not included)... Normal [facility] Abdomen/Pelvis W IV Cont ONL Yon 11-22-2024 Abdomen/Pelvis W IV Cont ONLY [facility] Imaging Services [address] [place], [place] [address] Abdomen/Pelvis W IV Cont ONLY MR#: [id number] Acct: [id number] Name: LILLIAN DRAKE Rep #: [id number] : 1985 F 39 From: Burton Cabrera MD PCP: Dr. Maria Regan MD Status: REG ER Study: Abdomen/Pelvis W IV Cont ONLY Date of Exam: Exam# [id number] Ordering Dr: Lupillo Asif MD PROCEDURE: ABDOMEN/PELVIS [...] Reproductive Organs: Heterogeneous uterus. Prominent bilateral ovaries mhjrc-vpatzqj-vjed-left with multiple cystic foci. The right ovary [...] be due to fibroids. Bilateral prominent ovaries, wgkii-zekyswp-wlqy-left . Consider pelvic ultrasound for further evaluation. 2. Hepatic steatosis. One or more dose reduction techniques were used (e.g., Automated exposure control, adjustment of the mA and/or kV according to patient size, use of iterative reconstruction technique). Reading Location: [facility] CC: Dr. Lupillo Asif MD; Dr. Maria Regan MD Welfare Adviser: Signed Normal [facility] Absolute lymphocyte countOrd ered By: Lupillo Asif on 11-22-2024 Lymphocytes Auto (Unsp spec) [#/Vol] 3.24 10*3/uL 0.83-4.51 [facility] Absolute neutrophil countOrd ered By: Lupillo Asif on 11-22-2024 Neutrophils (Bld) [#/Vol] 5.2 10*3/uL 2.0-7.7 [facility] Albumin to globulin ratioOrd ered By: Lupillo Asif on 11-22-2024 Albumin/Globulin [Mass ratio] 0.9 {ratio} 0.9-2.4 [facility] Automated lymphocyte count a s percentage of total leukocytesOrdered By: Lupillo Asif on 11-22-2024 Lymphocytes/100 WBC Auto (Unsp spec) 34.6 % 19-41 [facility] Basophil percentageOrdered B y: Lupillo Asif on 11-22-2024 Basophils/100 WBC (Bld) 0.6 % 0-1 [facility] Bilirubin Test strip Ql (U)O rdered By: Lupillo Asif on 11-22-2024 Bilirubin Ql (U) Negative Negative [facility] Bilirubin, totalOrdered By: Lupillo Asif on 11-22-2024 Bilirubin [Mass/Vol] 0.30 mg/dL 0.20-1.00 [facility] Comment on above: For patients on eltr ombopag therapy, use of Dimension [place] TBIL is not recommended. Blood urea nitrogen (BUN)/cr eatinine ratioOrdered By: Lupillo Asif on 11-22-2024 Urea nitrogen/Creatinine [Mass ratio] 22.5 mg/mg High 07-22 [facility] CBC W/Diff, Automatedon 11-04 Absolute Lymph 3.24 X10 3/uL Normal 0.83-4.51 [facility] Comment on above: Performed By: #### M 100.3200, M100.2000, L7400.0280, L7000.1800 #### [facility] [address] [place], [address] Absolute Neut 5.2 X10 3/uL Normal 2.0-7.7 [facility] Comment on above: Performed By: #### M 100.3200, M100.1999, L7400.0280, L7000.1800 #### [facility] [address] [place], [address] Basophils/100 WBC (Bld) 0.6 % Normal 0-1 [facility] Comment on above: Performed By: #### M 100.3200, M1, L7400.0280, L7000.1800 #### [facility] [address] [place], [address] Eosinophils/100 WBC (Bld) 3.2 % Normal 0-5 [facility] Comment on above: Performed By: #### M 100.3200, , L7400.0280, L7000.1800 #### [facility] [address] [place], [address] Erythrocyte distribution width (RBC) [Ratio] 13.7 % Normal 11.6-14.6 [facility] Comment on above: Performed By: #### M 100.3200, M1, L7400.0280, L7000.1800 #### [facility] [address] [place], [address] Hematocrit (Bld) [Volume fraction] 41.2 % Normal 37-47 [facility] Comment on above: Performed By: #### M 100.3200, M1, L7400.0280, L7000.1800 #### [facility] [address] [place], [address] Hemoglobin (Bld) [Mass/Vol] 13.7 g/dL Normal 12.0-15.0 [facility] Comment on above: Performed By: #### M 100.3200, , L7400.0280, L7000.1800 #### [facility] [address] [place], [address] IG% 0.300 Normal 0.0-0.9 [facility] Comment on above: Result Comment: IG% - Immature Granulocytes (promyelocytes, myelocytes and metamyelocytes) > 1% indicates that a LEFT SHIFT is Present. Performed By: #### M 100.3200, , L7400.0280, L7000.1800 #### [facility] [address] [place], [address] Lymphocytes/100 WBC (Bld) 34.6 % Normal 19-41 [facility] Comment on above: Performed By: #### M 100.3200, , L7400.0280, L7000.1800 #### [facility] [address] [place], [address] MCH (RBC) [Entitic mass] 29.6 pg Normal 27.0-32.0 [facility] Comment on above: Performed By: #### M 100.3200, , L7400.0280, L7000.1800 #### [facility] [address] [place], [address] MCHC (RBC) [Mass/Vol] 33.3 g/dL Normal 32-36 [facility] Comment on above: Performed By: #### M 100.3200, , L7400.0280, L7000.1800 #### [facility] [address] [place], [address] MCV (RBC) [Entitic vol] 89.0 fL Normal 81-99 [facility] Comment on above: Performed By: #### M 100.3200, M1, L7400.0280, L7000.1800 #### [facility] [address] [place], [address] Monocytes/100 WBC (Bld) 5.2 % Normal 0-10 [facility] Comment on above: Performed By: #### M 100.3200, M100.1999, L7400.0280, L7000.1800 #### [facility] [address] [place], [address] Neutrophils/100 WBC (Bld) 56.1 % Normal 47-70 [facility] Comment on above: Performed By: #### M 100.3200, , L7400.0280, L7000.1800 #### [facility] [address] [place], [address] Nucleated RBC (Bld) [#/Vol] 0 10*3/uL Normal 0-5 [facility] Comment on above: Performed By: #### M 100.3200, , L7400.0280, L7000.1800 #### [facility] [address] [place], [address] Platelet mean volume (Bld) [Entitic vol] 11.3 fL Normal 6.2-12.0 [facility] Comment on above: Performed By: #### M 100.3200, , L7400.0280, L7000.1800 #### [facility] [address] [place], [address] Platelets (Bld) [#/Vol] 307 10*3/uL Normal 150-450 [facility] Comment on above: Performed By: #### M 100.3200, M1, L7400.0280, L7000.1800 #### [facility] [address] [place], [address] RBC (Bld) [#/Vol] 4.63 10*6/uL Normal 4.2-5.4 [facility] Comment on above: Performed By: #### M 100.3200, , L7400.0280, L7000.1800 #### [facility] [address] [place], [address] RDW SD 44.4 fl High 35.1-43.9 [facility] Comment on above: Performed By: #### M 100.3200, , L7400.0280, L7000.1800 #### [facility] [address] [place], [address] WBC (Bld) [#/Vol] 9.4 10*3/uL Normal 4.4-11.0 [facility] Comment on above: Performed By: #### M 100.320, , L7400.0280, L7000.1800 #### [facility] [address] [place], [address] Carbon dioxide measurementOr dered By: Lupillo Asfi on 11-22-2024 CO2 [Moles/Vol] 22.0 mmol/L 21.0-32.0 [facility] Chloride measurementOrdered By: Lupillo Asif on 11-22-2024 Chloride [Moles/Vol] 108 mmol/L High 98-107 [facility] Comprehensive Metabolic Prof ilon 11-22-2024 Albumin [Mass/Vol] 3.6 g/dL Normal 3.2-5.0 [facility] Comment on above: Performed By: #### M 100.3200, , L7400.0280, L7000.1800 #### [facility] [address] [place], [address] Albumin/Globulin [Mass ratio] 0.9 {ratio} Normal 0.9-2.4 [facility] Comment on above: Performed By: #### M 100.3200, , L7400.0280, L7000.1800 #### [facility] [address] [place], [address] ALK P 60 U/L Normal 45-117 [facility] Comment on above: Performed By: #### M 100.3200, , L7400.0280, L7000.1800 #### [facility] [address] [place], [address] ALT [Catalytic activity/Vol] 20 U/L Normal 13-56 [facility] Comment on above: Performed By: #### M 100.3200, , L7400.0280, L7000.1800 #### [facility] [address] [place], [address] AST [Catalytic activity/Vol] 42 U/L High 15-37 [facility] Comment on above: Result Comment: Mode rate Hemolysis, Result may be falsely increased. Performed By: #### M 100.3200, , L7400.0280, L7000.1800 #### [facility] [address] [place], [address] Bilirubin [Mass/Vol] 0.30 mg/dL Normal 0.20-1.00 [facility] Comment on above: Result Comment: For patients on eltrombopag therapy, use of Dimension [place] TBIL is not recommended. Performed By: #### M 100.3200, , L7400.0280, L7000.1800 #### [facility] [address] [place], [address] BUN/CRE 22.5 RATIO High 10-20 [facility] Comment on above: Performed By: #### M 100.3200, , L7400.0280, L7000.1800 #### [facility] [address] [place], [address] CA,Total 9.1 mg/dL Normal 8.5-10.1 [facility] Comment on above: Performed By: #### M 100.3200, , L7400.0280, L7000.1800 #### [facility] [address] [place], [address] Chloride [Moles/Vol] 108 mmol/L High 98-107 [facility] Comment on above: Performed By: #### M 100.3200, M1, L7400.0280, L7000.1800 #### [facility] [address] [place], [address] CO2 [Moles/Vol] 22.0 mmol/L Normal 21.0-32.0 [facility] Comment on above: Performed By: #### M 100.3200, , L7400.0280, L7000.1800 #### [facility] [address] [place], [address] Creatinine [Mass/Vol] 0.67 mg/dL Normal 0.55-1.02 [facility] Comment on above: Result Comment: The validity of the calculated GFR GFRAA in patients over 70 years has not been determined. Clinical correlation is essential. Performed By: #### M 100.3200, , L7400.0280, L7000.1800 #### [facility] [address] [place], [address] ECRCL 113.04 ml/min Normal [facility] Comment on above: Performed By: #### M 100.3200, , L7400.0280, L7000.1800 #### [facility] [address] [place], [address] EST GFR - AA 128 mL/min Normal >60 [facility] Comment on above: Result Comment: Afri can [place] GFR Calc Performed By: #### M 100.3200, M1, L7400.0280, L7000.1800 #### [facility] [address] [place], [address] GAP 7 Normal 5-15 [facility] Comment on above: Performed By: #### M 100.3200, .1999, L7400.0280, L7000.1800 #### [facility] [address] [place], [address] GFR/1.73 sq M.predicted among non-blacks MDRD (S/P/Bld) [Vol rate/Area] 106 mL/min/{1.73_m2} Normal >60 [facility] Comment on above: Result Comment: Non- GFR Calc Performed By: #### M 100.3200, .1999, L7400.0280, L7000.1800 #### [facility] [address] [place], [address] Globulin (S) [Mass/Vol] 4.2 g/dL Normal 2.2-4.2 [facility] Comment on above: Performed By: #### M 100.3200, , L7400.0280, L7000.1800 #### [facility] [address] [place], [address] Glucose [Mass/Vol] 82 mg/dL Normal 74-106 [facility] Comment on above: Performed By: #### M 100.3200, , L7400.0280, L7000.1800 #### [facility] [address] [place], [address] Potassium [Moles/Vol] 4.5 mmol/L Normal 3.5-5.1 [facility] Comment on above: Result Comment: Mode rate Hemolysis, Result may be falsely increased. Performed By: #### M 100.3200, M1, L7400.0280, L7000.1800 #### [facility] [address] [place], [address] Sodium [Moles/Vol] 136 mmol/L Normal 136-145 [facility] Comment on above: Performed By: #### M 100.3200, M100.1999, L7400.0280, L7000.1800 #### [facility] [address] [place], [address] T PROT 7.8 g/dL Normal 6.4-8.2 [facility] Comment on above: Performed By: #### M 100.3200, M100.1999, L7400.0280, L7000.1800 #### [facility] [address] [place], [address] Urea nitrogen [Mass/Vol] 15 mg/dL Normal 7-18 [facility] Comment on above: Performed By: #### M 100.3200, M100.1999, L7400.0280, L7000.1800 #### [facility] [address] [place], [address] Emergency Department Summary on 11-22-2024 Emergency Department Summary [facility] Medical Records Department [address] [place] [address] Emergency Department Summary 11/22/24 MR#: [id number] Acct: [id number] Name: LILLIAN DRAKE Rep #: [id number] : 1985 39 From: Lupillo Asif MD [...] it again for a few more months. 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 Cardiovascular: [...] Delivery Me (more content not included)... Normal [facility] Eosinophil percentageOrdered By: Lupillo Asif on 11-22-2024 Eosinophils/100 WBC (Bld) 3.2 % 0-5 [facility] Erythrocyte distribution wid th ratioOrdered By: Lupillo Asif on 11-22-2024 Erythrocyte distribution width (RBC) [Ratio] 13.7 % 11.6-14.6 [facility] Erythrocyte distribution wid th standard deviationOrdered By: Lupillo Asif on 11-22-2024 Erythrocyte distribution width (RBC) [Ratio] 44.4 fl High 35.1-43.9 [facility] Glomerular filtration rate ( GFR) estimationOrdered By: Lupillo Asif on 11-22-2024 GFR/1.73 sq M.predicted among non-blacks MDRD (S/P/Bld) [Vol rate/Area] 106 mL/min/{1.73_m2} >60 [facility] Comment on above: Non- GFR Calc Glucose measurementOrdered B y: Lupillo Asif on 11-22-2024 Glucose [Mass/Vol] 82 mg/dL 74-106 [facility] Hematocrit Auto (Bld) [Volum e fraction]Ordered By: Lupillo Asif on 11-22-2024 Hematocrit (Bld) [Volume fraction] 41.2 % 37-47 [facility] Hemoglobin measurementOrdere d By: Lupillo Asif on 11-22-2024 Hemoglobin (Bld) [Mass/Vol] 13.7 g/dL 12.0-15.0 [facility] Immature granulocytes/100 WB C Auto (Bld)Ordered By: Lupillo Asif on 11-22-2024 Immature granulocytes/100 WBC (Bld) 0.300 % 0.0-0.9 [facility] Comment on above: IG% - Immature Granu locytes (promyelocytes, myelocytes and metamyelocytes) > 1% indicates that a LEFT SHIFT is Present. Ketones Test strip Ql (U)Ord ered By: Lupillo Asif on 11-22-2024 Ketones Ql (U) Negative Negative [facility] - Chemistry and C hemistry - challengeOrdered By: Lupillo Asif on 11-22-2024 AST [Catalytic activity/Vol] 42 U/L High 15-37 [facility] Comment on above: Moderate Hemolysis, Result may be falsely increased. MCV (mean corpuscular volume ) determinationOrdered By: Lupillo Asif on 11-22-2024 MCV (RBC) [Entitic vol] 89.0 fL 81-99 [facility] Mean corpuscular hemoglobin (MCH) determinationOrdered By: Lupillo Asif on 11-22-2024 MCH (RBC) [Entitic mass] 29.6 pg 27.0-32.0 [facility] Mean corpuscular hemoglobin concentration (MCHC) determinationOrdered By: Lupillo Asif on 11-22-2024 MCHC (RBC) [Mass/Vol] 33.3 g/dL 32-36 [facility] Mean platelet volume determi nationOrdered By: Lupillo Asif on 11-22-2024 Platelet mean volume (Bld) [Entitic vol] 11.3 fL 6.2-12.0 [facility] Microscopic analysis of urin e for red blood cells (RBC)Ordered By: Lupillo Asif on 11-22-2024 Microscopic analysis of urine for red blood cells (RBC) 0 SEEN /hpf 0-5 [facility] Monocyte percentageOrdered B y: Lupillo Asif on 11-22-2024 Monocytes/100 WBC (Bld) 5.2 % 0-10 [facility] Mucus LM Ql (Urine sed)Order ed By: Lupillo Asif on 11-22-2024 Mucus Ql (Urine sed) 1+ /hpf [facility] Neutrophil percentageOrdered By: Lupillo Asif on 11-22-2024 Neutrophils/100 WBC (Bld) 56.1 % 47-70 [facility] Nitrite Test strip Ql (U)Ord ered By: Lupillo Asif on 11-22-2024 Nitrite Ql (U) Negative Negative [facility] Nucleated red blood cell per centageOrdered By: Lupillo Asif on 11-22-2024 Nucleated RBC/100 WBC (Bld) [Ratio] 0 % 0-5 [facility] Platelet countOrdered By: Keenan Asif on 11-22-2024 Platelets (Bld) [#/Vol] 307 10*3/uL 150-450 [facility] Potassium measurementOrdered By: Lupillo Asif on 11-22-2024 Potassium [Moles/Vol] 4.5 mmol/L 3.5-5.1 [facility] Comment on above: Moderate Hemolysis, Result may be falsely increased. ,Serum,hCG Quali.on 11-22-2024 HCG, SERUM QUAL Negative Normal [facility] Comment on above: Performed By: #### M 100.3200, M100.2000, L7400.0280, L7000.1800 #### [facility] [address] [place], [address] Protein Test strip Ql (U)Ord ered By: Lupillo Asif on 11-22-2024 Protein Ql (U) 15 mg/dl High Negative [facility] RBC Auto (Bld) [#/Vol]Ordere d By: Lupillo Asif on 11-22-2024 RBC (Bld) [#/Vol] 4.63 10*6/uL 4.2-5.4 [facility] Serum anion gap measurementO rdered By: Lupillo Asif on 11-22-2024 Anion gap [Moles/Vol] 7 mmol/L 5-15 [facility] Serum beta-hCG test, qualita tiveOrdered By: Lupillo Asif on 11-22-2024 Beta HCG ( test) Ql Negative [facility] Serum globulin measurementOr dered By: Lupillo Asif on 11-22-2024 Globulin (S) [Mass/Vol] 4.2 g/dL 2.2-4.2 [facility] Serum or plasma alanine clay otransferase (ALT) measurementOrdered By: Lupillo Asif on 11-22-2024 ALT [Catalytic activity/Vol] 20 U/L 13-56 [facility] Serum or plasma albumin jazmin urement (mass/volume)Ordered By: Lupillo Asif on 11-22-2024 Albumin [Mass/Vol] 3.6 g/dL 3.2-5.0 [facility] Serum or plasma alkaline dedra sphatase measurementOrdered By: Lupillo Asif on 11-22-2024 ALP [Catalytic activity/Vol] 60 U/L 45-117 [facility] Serum or plasma calcium jazmin urement (mass/volume)Ordered By: Lupillo Asif on 11-22-2024 Calcium [Mass/Vol] 9.1 mg/dL 8.5-10.1 [facility] Serum or plasma creatinine m easurement (mass/volume)Ordered By: Lupillo Asif on 11-22-2024 Creatinine [Mass/Vol] 0.67 mg/dL 0.55-1.02 [facility] Comment on above: The validity of the calculated GFR & GFRAA in patients over 70 years has not been determined. Clinical correlation is essential. Serum or plasma urea nitroge n measurement (mass/volume)Ordered By: Lupillo Asif on 11-22-2024 Urea nitrogen [Mass/Vol] 15 mg/dL 7-18 [facility] Sodium levelOrdered By: Lupillo Asif on 11-22-2024 Sodium [Moles/Vol] 136 mmol/L 136-145 [facility] Squamous epithelial cells de tection in urine sediment by light microscopyOrdered By: Lupillo Asif on 11-22-2024 Epithelial cells.squamous LM Ql (Urine sed) 0-5 SEEN /hpf 5-10 [facility] Total proteinOrdered By: Malou Asif on 11-22-2024 Protein [Mass/Vol] 7.8 g/dL 6.4-8.2 [facility] Transvaginal Non-on 11-22-2024 Transvaginal Non- [facility] Imaging Services [address] [place], [place] [address] Transvaginal Non- MR#: [id number] Acct: [id number] Name: LILLIAN DRAKE Rep #: [id number] : 1985 F 39 From: Reena Esquivel MD PCP: Dr. Maria Regan MD Status: REG ER Study: Transvaginal Non- Date of Exam: Exam# [id number] Ordering Dr: Lupillo Asif MD PROCEDURE: TRANSVAGINAL [...] keeping with polycystic ovarian morphology. Reading Location: [id number] CC: Dr. Lupillo Asif MD; Dr. Maria Regan MD Welfare Adviser: Signed Normal [facility] Urinalysis, Completeon 11-22 BACTERIA 1+ /hpf Normal None Seen [facility] Comment on above: Order Comment: CLEAN CATCH Performed By: #### M 100.3200, M100.2000, L7400.0280, L7000.1800 #### [facility] [address] [place], [address] EPI,SQUAMOUS 0-5 SEEN Normal 5-10 [facility] Comment on above: Order Comment: CLEAN CATCH Performed By: #### M 100.3200, M100.1999, L7400.0280, L7000.1800 #### [facility] [address] [place], [address] Mucus Ql (Urine sed) 1+ /hpf Normal [facility] Comment on above: Order Comment: CLEAN CATCH Performed By: #### M 100.3200, M100.1999, L7400.0280, L7000.1800 #### [facility] [address] [place], [address] RBC 0 SEEN Normal 0-5 [facility] Comment on above: Order Comment: CLEAN CATCH Performed By: #### M 100.3200, M100.1999, L7400.0280, L7000.1800 #### [facility] [address] [place], [address] WBC 0-5 SEEN Normal 0-5 [facility] Comment on above: Order Comment: CLEAN CATCH Performed By: #### M 100.3200, M100.1999, L7400.0280, L7000.1800 #### [facility] [address] [place], [address] Urine clarityOrdered By: Malou Asif on 11-22-2024 Clarity (U) Clear Clear [facility] Urine color determinationOrd ered By: Lupillo Asif on 11-22-2024 Color (U) Yellow Yellow [facility] Urine glucose detectionOrder ed By: Lupillo Asif on 11-22-2024 Glucose Ql (U) Normal mg/dl Normal [facility] Urine leukocyte esterase det ection by dipstickOrdered By: Lupillo Asif on 11-22-2024 Leukocyte esterase Test strip Ql (U) Negative Negative [facility] Urine pHOrdered By: Lupillo gupta on 11-22-2024 pH (U) 6.0 [pH] 5.0 - 8.0 [facility] Urine sediment bacteria coun t by microscopy (number/high power field)Ordered By: Lupillo Asif on 11-22-2024 Bacteria LM.HPF (Urine sed) [#/Area] 1 /[HPF] None Seen [facility] Urine specific gravity measu rementOrdered By: Lupillo Asif on 11-22-2024 Specific gravity (U) [Rel density] 1.025 1.002-1.030 [facility] Urine urobilinogen measureme ntOrdered By: Lupillo Asif on 11-22-2024 Urobilinogen Ql (U) Normal mg/dl Normal [facility] White blood cell (WBC) count Ordered By: Lupillo Asif on 11-22-2024 WBC (Bld) [#/Vol] 9.4 10*3/uL 4.4-11.0 [facility] White blood cell countOrdere d By: Lupillo Asif on 11-22-2024 White blood cell count 0-5 SEEN /hpf 0-5 [facility] CNOVon 2024 CNOV Office Visit ([id number]) LILLIAN DRAKE ([id number]) 1985 F Date Time Provider Department 10/16/24 8:40 AM JENNIFER WERNER [id number] During your visit today, we recorded the following information about you: Pulse Blood pressure Weight Height Normal [facility] HIV - WCHon 2024 HIV Non-Reactive Normal Nonreactive [facility] Comment on above: Order Comment: Reaso n for Exam: vaginal discharge Performed By: #### M 100.3200, M100.2000, L7400.0280, L7000.1800 #### [facility] [address] [place], [address] PAP IG HPV APTIMA 16/18,45on 2024 ADEQ Comment Normal . [facility] Comment on above: Order Comment: Speci men Comment: [id number] Specimen Comment: Source.............Cervix;Endocervix Specimen Comment: No. of containers..01 ThinPrep Vial Result Comment: Sati sfactory for evaluation. Endocervical and/or squamous metaplastic cells (endocervical component) are present. Performed By: #### M 100.3200, M100.1999, L7400.0280, L7000.1800 #### [facility] [address] [place], [address] COMM . Normal . [facility] Comment on above: Order Comment: Speci men Comment: [id number] Specimen Comment: Source.............Cervix;Endocervix Specimen Comment: No. of containers..01 ThinPrep Vial Performed By: #### M 100.3200, M100.1999, L7400.0280, L7000.1800 #### [facility] [address] [place], [address] COMMENT Comment Normal . [facility] Comment on above: Order Comment: Speci men Comment: [id number] Specimen Comment: Source.............Cervix;Endocervix Specimen Comment: No. of containers..01 ThinPrep Vial Result Comment: This liquid based ThinPrep(R) pap test was screened with the use of an image guided system. Performed By: #### M 100.3200, M100.1999, L7400.0280, L7000.1800 #### [facility] [address] [place], [address] DIAG Comment Normal . [facility] Comment on above: Order Comment: Speci men Comment: [id number] Specimen Comment: Source.............Cervix;Endocervix Specimen Comment: No. of containers..01 ThinPrep Vial Result Comment: NEGA TIVE FOR INTRAEPITHELIAL LESION OR MALIGNANCY. TRICHOMONAS VAGINALIS IS PRESENT. Performed By: #### M 100.3200, M100.2000, L7400.0280, L7000.1800 #### [facility] [address] [place], [place], [address] HPV APTIMA, HR Negative Normal Negative [facility] Comment on above: Order Comment: Speci men Comment: [id number] Specimen Comment: Source.............Cervix;Endocervix Specimen Comment: No. of containers..01 ThinPrep Vial Result Comment: This nucleic acid amplification test detects fourteen high- risk HPV types (16,18,31,33,35,39,45,51,52,56,58,59,66,68) without differentiation. Performed By: #### M 100.3200, M100.1999, L7400.0280, L7000.1800 #### [facility] [address] [facility] [place], [place], [address] HPV Kirsten Rfx Comment Normal . [facility] Comment on above: Order Comment: Speci men Comment: [id number] Specimen Comment: Source.............Cervix;Endocervix Specimen Comment: No. of containers..01 ThinPrep Vial Result Comment: Tin vázquez not met, HPV Genotype not performed. Performed at: [address] [id number] [employer] P[employer]: Jaylin Sandoval MD, Phone: [phone] Performed at: =[address] [id number] [employer]: Jaylin Sandoval MD, Phone: [phone] Performed By: #### M 100.3200, M100.2000, L7400.0280, L7000.1800 #### [facility] [address] [place], [address] PAPSMR Comment Normal . [facility] Comment on above: Order Comment: Speci men Comment: [id number] Specimen Comment: Source.............Cervix;Endocervix Specimen Comment: No. of [...] #### M 100.3200, M100.2000, L7400.0280, L7000.1800 #### [facility] [address] [place], [address] PERFORM Comment Normal . [facility] Comment on above: Order Comment: Speci men Comment: [id number] Specimen Comment: Source.............Cervix;Endocervix Specimen Comment: No. of containers..01 ThinPrep Vial Result Comment: Amy Do, Modeling And Simulation Analyst Performed By: #### M 100.3200, M100.2000, L7400.0280, L7000.1800 #### [facility] [address] [place], [address] Chlamydia/GC FRANCESCO aptimaon CHLAMY,NUC ACID Negative Normal Negative [facility] Comment on above: Performed By: #### M 100.3200, M100.2000, L7400.0280, L7000.1800 #### [facility] [address] [place], [address] GC BY NUC ACID Negative Normal Negative [facility] Comment on above: Result Comment: Perf ormed at: =G - [facility] [id number] [employer]: Jaylin Sandoval MD, Phone: [phone] Performed By: #### M 100.3200, M100.1999, L7400.0280, L7000.1800 #### [facility] [address] [place], [place], [address] HSV 1 AND 2 IgGon 10-15-2024 HSV 1 IgG Normal [facility] Comment on above: Result Comment: RESU LT: REACTIVE Please note reference interval change HSV-1 IgG testing performed using the [employer] HSV-1 IgG assay. Performed By: #### M 100.3200, M100.1999, L7400.0280, L7000.1800 #### [facility] [address] [facility] [facility] [place], [place], [address] HSV 2 IgG Normal [facility] Comment on above: Result Comment: RESU [...] [employer] HSV-2 IgG assay. Performed at: [address] [id number] [employer] Pumper: Jovani Jarvis PhD, Phone: [phone] Performed By: #### M 100.3200, M100.1999, L7400.0280, L7000.1800 #### [facility] [address] [facility] [place], [place], [address] Hepatitis B Surface Antigeno n 10-15-2024 HEP B Surf Ag Non-Reactive Normal Nonreactive [facility] Comment on above: Order Comment: Reaso n for Exam: vaginal discharge Performed By: #### M 100.3200, M100.1999, L7400.0280, L7000.1800 #### [facility] [address] [place], [address] Hepatitis C Antibodyon 10-15 Hepatitis C AB Non-Reactive Normal Nonreactive [facility] Comment on above: Order Comment: Reaso n for Exam: vaginal discharge Result Comment: Non Reactive: < 0.8 Equivocal: >/= 0.8 to < 1.0 Reactive: >/= 1.0 The [facility] requires that a reactive/equivocal HCV antibody result be sent out for confirmation. HCV Quant by PCR testing. Performed By: #### M 100.3200, M100.1999, L7400.0280, L7000.1800 #### [facility] [address] [place], [address] L509.8000on 10-15-2024 Syphilis Abs Non-Reactive Normal [facility] Comment on above: Order Comment: Reaso n for Exam: vaginal discharge Performed By: #### M 100.3200, , L7400.0280, L7000.1800 #### [facility] [address] [place], [address] Vitamin D,25 Hydroxyon 10-15 Vitamin D 25-OH 11.7 ng/mL Normal [facility] Comment on above: Order Comment: Reaso n for Exam: vaginal discharge Result Comment: Lois min D 25(OH) Status Range Deficiency <20 ng/mL (50nmol/L) Insufficiency 20 - 30 ng/mL (50 - 75 nmol/L) Sufficiency 30 - 100 ng/mL (75 - 250 nmol/L) Toxicity >100 ng/mL (>250 nmol/L) Performed By: #### M 100.3200, M100.1999, L7400.0280, L7000.1800 #### [facility] [address] [place], [address] Genital Culture Comprehensiv naheed 10-14-2024 VAC Reason for Exam: vaginal discharge Organism is too fastidious for routine susceptibility studies. Genital Culture Comprehensive No yeast or Neisseria isolated. G. vaginalis (Presumptive) Amount Growth 3+ Normal [facility] Comment on above: Performed By: #### M 100.3200, M100.2000, L7400.0280, L7000.1800 #### [facility] [address] [place], [address] [facility] LILLIAN DRAKE ([id number]) 1985 F Date Time Provider Department 10/12/24 TO [facility] During your visit today, we recorded the following information about you: To Harris PA 10/12/2024 7:12 AM Signed Please let [...] Status:Closed by ASHLEE MAYORGA on 10/12/24 Normal [facility] CBC W/Diff, Automatedon 01- Absolute Lymph 2.58 X10 3/uL Normal 0.83-4.51 [facility] Comment on above: Performed By: #### L 3300.1750, L3100.5170, L501.9520, L3890.6300, L500.4050, L3890.6005, L3100.5125, L3890.6100, L100.0100, L506.1000, L3400.1610, L506.0400, L509.8000 ####[facility] [address] [place], [place], [phone] Absolute Neut 5.4 X10 3/uL Normal 2.0-7.7 [facility] Comment on above: Performed By: #### L 3300.1750, L3100.5170, L501.9520, L3890.6300, L500.4050, L3890.6005, L3100.5125, L3890.6100, L100.0100, L506.1000, L3400.1610, L506.0400, L509.8000 ####[facility] [address] [place], [place], [phone]) Basophils/100 WBC (Bld) 0.8 % Normal 0-1 [facility] Comment on above: Performed By: #### L 3300.1750, L3100.5170, L501.9520, L3890.6300, L500.4050, L3890.6005, L3100.5125, L3890.6100, L100.0100, L506.1000, L3400.1610, L506.0400, L509.8000 ####[facility] [address] [place], [place], [phone]) Eosinophils/100 WBC (Bld) 2.2 % Normal 0-5 [facility] Comment on above: Performed By: #### L 3300.1750, L3100.5170, L501.9520, L3890.6300, L500.4050, L3890.6005, L3100.5125, L3890.6100, L100.0100, L506.1000, L3400.1610, L506.0400, L509.8000 ####[facility] [address] [place], [place], [phone]) Erythrocyte distribution width (RBC) [Ratio] 14.3 % Normal 11.6-14.6 [facility] Comment on above: Performed By: #### L 3300.1750, L3100.5170, L501.9520, L3890.6300, L500.4050, L3890.6005, L3100.5125, L3890.6100, L100.0100, L506.1000, L3400.1610, L506.0400, L509.8000 ####[facility] [address] [place], [place], [phone](577) Hematocrit (Bld) [Volume fraction] 40.5 % Normal 37-47 [facility] Comment on above: Performed By: #### L 3300.1750, L3100.5170, L501.9520, L3890.6300, L500.4050, L3890.6005, L3100.5125, L3890.6100, L100.0100, L506.1000, L3400.1610, L506.0400, L509.8000 ####[facility] [address] [place], [address](157) Hemoglobin (Bld) [Mass/Vol] 13.3 g/dL Normal 12.0-15.0 [facility] Comment on above: Performed By: #### L 3300.1750, L3100.5170, L501.9520, L3890.6300, L500.4050, L3890.6005, L3100.5125, L3890.6100, L100.0100, L506.1000, L3400.1610, L506.0400, L509.8000 ####[facility] [address] [place], [address] IG% 0.300 Normal 0.0-0.9 [facility] Comment on above: Result Comment: IG% - Immature Granulocytes (promyelocytes, myelocytes and metamyelocytes) > 1% indicates that a LEFT SHIFT is Present. Performed By: #### L 3300.1750, L3100.5170, L501.9520, L3890.6300, L500.4050, L3890.6005, L3100.5125, L3890.6100, L100.0100, L506.1000, L3400.1610, L506.0400, L509.8000 ####[facility] [address] [place], [address] Lymphocytes/100 WBC (Bld) 29.6 % Normal 19-41 [facility] Comment on above: Performed By: #### L 3300.1750, L3100.5170, L501.9520, L3890.6300, L500.4050, L3890.6005, L3100.5125, L3890.6100, L100.0100, L506.1000, L3400.1610, L506.0400, L509.8000 ####[facility] [address] [place], [address] MCH (RBC) [Entitic mass] 29.3 pg Normal 27.0-32.0 [facility] Comment on above: Performed By: #### L 3300.1750, L3100.5170, L501.9520, L3890.6300, L500.4050, L3890.6005, L3100.5125, L3890.6100, L100.0100, L506.1000, L3400.1610, L506.0400, L509.8000 ####[facility] [address] [place], [place], [address] MCHC (RBC) [Mass/Vol] 32.8 g/dL Normal 32-36 [facility] Comment on above: Performed By: #### L 3300.1750, L3100.5170, L501.9520, L3890.6300, L500.4050, L3890.6005, L3100.5125, L3890.6100, L100.0100, L506.1000, L3400.1610, L506.0400, L509.8000 ####[facility] [address] [place], [address] MCV (RBC) [Entitic vol] 89.2 fL Normal 81-99 [facility] Comment on above: Performed By: #### L 3300.1750, L3100.5170, L501.9520, L3890.6300, L500.4050, L3890.6005, L3100.5125, L3890.6100, L100.0100, L506.1000, L3400.1610, L506.0400, L509.8000 ####[facility] [address] [place], [place], [address] Monocytes/100 WBC (Bld) 4.8 % Normal 0-10 [facility] Comment on above: Performed By: #### L 3300.1750, L3100.5170, L501.9520, L3890.6300, L500.4050, L3890.6005, L3100.5125, L3890.6100, L100.0100, L506.1000, L3400.1610, L506.0400, L509.8000 ####[facility] [address] [place], [address] Neutrophils/100 WBC (Bld) 62.3 % Normal 47-70 [facility] Comment on above: Performed By: #### L 3300.1750, L3100.5170, L501.9520, L3890.6300, L500.4050, L3890.6005, L3100.5125, L3890.6100, L100.0100, L506.1000, L3400.1610, L506.0400, L509.8000 ####[facility] [address] [place], [address](404) Nucleated RBC (Bld) [#/Vol] 0 10*3/uL Normal 0-5 [facility] Comment on above: Performed By: #### L 3300.1750, L3100.5170, L501.9520, L3890.6300, L500.4050, L3890.6005, L3100.5125, L3890.6100, L100.0100, L506.1000, L3400.1610, L506.0400, L509.8000 ####[facility] [address] [place], [address](859) Platelet mean volume (Bld) [Entitic vol] 10.4 fL Normal 6.2-12.0 [facility] Comment on above: Performed By: #### L 3300.1750, L3100.5170, L501.9520, L3890.6300, L500.4050, L3890.6005, L3100.5125, L3890.6100, L100.0100, L506.1000, L3400.1610, L506.0400, L509.8000 ####[facility] [address] [place], [address](488 Platelets (Bld) [#/Vol] 232 10*3/uL Normal 150-450 [facility] Comment on above: Performed By: #### L 3300.1750, L3100.5170, L501.9520, L3890.6300, L500.4050, L3890.6005, L3100.5125, L3890.6100, L100.0100, L506.1000, L3400.1610, L506.0400, L509.8000 ####[facility] [address] [place], [place], [phone] RBC (Bld) [#/Vol] 4.54 10*6/uL Normal 4.2-5.4 [facility] Comment on above: Performed By: #### L 3300.1750, L3100.5170, L501.9520, L3890.6300, L500.4050, L3890.6005, L3100.5125, L3890.6100, L100.0100, L506.1000, L3400.1610, L506.0400, L509.8000 ####[facility] [address] [place], [place], [phone] RDW SD 46.2 fl High 35.1-43.9 [facility] Comment on above: Performed By: #### L 3300.1750, L3100.5170, L501.9520, L3890.6300, L500.4050, L3890.6005, L3100.5125, L3890.6100, L100.0100, L506.1000, L3400.1610, L506.0400, L509.8000 ####[facility] [address] [place], [place], [phone] WBC (Bld) [#/Vol] 8.7 10*3/uL Normal 4.4-11.0 [facility] Comment on above: Performed By: #### L 3300.1750, L3100.5170, L501.9520, L3890.6300, L500.4050, L3890.6005, L3100.5125, L3890.6100, L100.0100, L506.1000, L3400.1610, L506.0400, L509.8000 ####[facility] [address] [place], [address] CNOVon 10-11-2024 CNOV Office Visit (UCWSTR ) LILLIAN DRAKE ([id number]) 1985 F Date Time Provider Department 10/11/24 6:15 PM TO [facility] During your visit today, we recorded the following information about you: Temperature Pulse Respiration Blood pressure 97.6 degrees 78/minute 20/minute 100/67 Weight Last Period 78 kg 10/10/24 To Harris PA 10/11/2024 6:54 PM Signed This note was created using [employer] Medical[employer]. Subjective Lillian Drake is a 38 year [...] Maternal Grandmother Ischemic Heart Disease Maternal Grandfather [place] at later age Diabetes Maternal Grandfather Hypertension [...] Eyes: Conjunctiva/sclera: (more content not included)... Normal [facility] COVID AND INFLUENZA A/B AND RSV PCR, ROUTINEon 10-11-2024 SARS-CoV-2 (COVID-19) RNA FRANCESCO+probe Ql (Unsp spec) SARS-COV-2 (AGENT OF COVID-19) RNA: Not detected INFLUENZA A RNA: Not detected INFLUENZA B RNA: Not detected RESPIRATORY SYNCYTIAL VIRUS (RSV) RNA: Not detected Normal [facility] Comment on above: Performed By: #### C VFLRS ####[facility] LABCLIA [id number] [place] [address] [place] Comprehensive Metabolic Prof ilon 10-11-2024 Albumin [Mass/Vol] 3.7 g/dL Normal 3.2-5.0 [facility] Comment on above: Performed By: #### L 3300.1750, L3100.5170, L501.9520, L3890.6300, L500.4050, L3890.6005, L3100.5125, L3890.6100, L100.0100, L506.1000, L3400.1610, L506.0400, L509.8000 ####[facility] [address] [place], [place], [phone] Albumin/Globulin [Mass ratio] 0.9 {ratio} Normal 0.9-2.4 [facility] Comment on above: Performed By: #### L 3300.1750, L3100.5170, L501.9520, L3890.6300, L500.4050, L3890.6005, L3100.5125, L3890.6100, L100.0100, L506.1000, L3400.1610, L506.0400, L509.8000 ####[facility] [address] [place], [address] ALK P 67 U/L Normal 45-117 [facility] Comment on above: Performed By: #### L 3300.1750, L3100.5170, L501.9520, L3890.6300, L500.4050, L3890.6005, L3100.5125, L3890.6100, L100.0100, L506.1000, L3400.1610, L506.0400, L509.8000 ####[facility] [address] [place], [address] ALT [Catalytic activity/Vol] 23 U/L Normal 13-56 [facility] Comment on above: Performed By: #### L 3300.1750, L3100.5170, L501.9520, L3890.6300, L500.4050, L3890.6005, L3100.5125, L3890.6100, L100.0100, L506.1000, L3400.1610, L506.0400, L509.8000 ####[facility] [address] [place], [address] AST [Catalytic activity/Vol] 17 U/L Normal 15-37 [facility] Comment on above: Performed By: #### L 3300.1750, L3100.5170, L501.9520, L3890.6300, L500.4050, L3890.6005, L3100.5125, L3890.6100, L100.0100, L506.1000, L3400.1610, L506.0400, L509.8000 ####[facility] [address] [place], [place], [phone] Bilirubin [Mass/Vol] 0.30 mg/dL Normal 0.20-1.00 [facility] Comment on above: Result Comment: For patients on eltrombopag therapy, use of Dimension [place] TBIL is not recommended. Performed By: #### L 3300.1750, L3100.5170, L501.9520, L3890.6300, L500.4050, L3890.6005, L3100.5125, L3890.6100, L100.0100, L506.1000, L3400.1610, L506.0400, L509.8000 ####[facility] [address] [place], [place], [phone] BUN/CRE 23.5 RATIO High 10-20 [facility] Comment on above: Performed By: #### L 3300.1750, L3100.5170, L501.9520, L3890.6300, L500.4050, L3890.6005, L3100.5125, L3890.6100, L100.0100, L506.1000, L3400.1610, L506.0400, L509.8000 ####[facility] [address] [place], [place], [phone] CA,Total 9.1 mg/dL Normal 8.5-10.1 [facility] Comment on above: Performed By: #### L 3300.1750, L3100.5170, L501.9520, L3890.6300, L500.4050, L3890.6005, L3100.5125, L3890.6100, L100.0100, L506.1000, L3400.1610, L506.0400, L509.8000 ####[facility] [address] [place], [address] Chloride [Moles/Vol] 106 mmol/L Normal 98-107 [facility] Comment on above: Performed By: #### L 3300.1750, L3100.5170, L501.9520, L3890.6300, L500.4050, L3890.6005, L3100.5125, L3890.6100, L100.0100, L506.1000, L3400.1610, L506.0400, L509.8000 ####[facility] [address] [place], [place], [phone] CO2 [Moles/Vol] 25.0 mmol/L Normal 21.0-32.0 [facility] Comment on above: Performed By: #### L 3300.1750, L3100.5170, L501.9520, L3890.6300, L500.4050, L3890.6005, L3100.5125, L3890.6100, L100.0100, L506.1000, L3400.1610, L506.0400, L509.8000 ####[facility] [address] [place], [place], [phone]([phone] Creatinine [Mass/Vol] 0.64 mg/dL Normal 0.55-1.02 [facility] Comment on above: Result Comment: The validity of the calculated GFR GFRAA in patients over 70 years has not been determined. Clinical correlation is essential. Performed By: #### L 3300.1750, L3100.5170, L501.9520, L3890.6300, L500.4050, L3890.6005, L3100.5125, L3890.6100, L100.0100, L506.1000, L3400.1610, L506.0400, L509.8000 ####[facility] [address] [place], [place], [phone]([phone] EST GFR - AA 135 mL/min Normal >60 [facility] Comment on above: Result Comment: Afri can Kenyan GFR Calc Performed By: #### L 3300.1750, L3100.5170, L501.9520, L3890.6300, L500.4050, L3890.6005, L3100.5125, L3890.6100, L100.0100, L506.1000, L3400.1610, L506.0400, L509.8000 ####[facility] [address] [place], [place], [phone] GAP 6 Normal 5-15 [facility] Comment on above: Performed By: #### L 3300.1750, L3100.5170, L501.9520, L3890.6300, L500.4050, L3890.6005, L3100.5125, L3890.6100, L100.0100, L506.1000, L3400.1610, L506.0400, L509.8000 ####[facility] [address] [place], [address] GFR/1.73 sq M.predicted among non-blacks MDRD (S/P/Bld) [Vol rate/Area] 111 mL/min/{1.73_m2} Normal >60 [facility] Comment on above: Result Comment: Non- GFR Calc Performed By: #### L 3300.1750, L3100.5170, L501.9520, L3890.6300, L500.4050, L3890.6005, L3100.5125, L3890.6100, L100.0100, L506.1000, L3400.1610, L506.0400, L509.8000 ####[facility] [address] [place], [place], [phone] Globulin (S) [Mass/Vol] 3.9 g/dL Normal 2.2-4.2 [facility] Comment on above: Performed By: #### L 3300.1750, L3100.5170, L501.9520, L3890.6300, L500.4050, L3890.6005, L3100.5125, L3890.6100, L100.0100, L506.1000, L3400.1610, L506.0400, L509.8000 ####[facility] [address] [place], [place], [phone](218) Glucose [Mass/Vol] 98 mg/dL Normal 74-106 [facility] Comment on above: Performed By: #### L 3300.1750, L3100.5170, L501.9520, L3890.6300, L500.4050, L3890.6005, L3100.5125, L3890.6100, L100.0100, L506.1000, L3400.1610, L506.0400, L509.8000 ####[facility] [address] [place], [place], [phone](315) Potassium [Moles/Vol] 3.8 mmol/L Normal 3.5-5.1 [facility] Comment on above: Performed By: #### L 3300.1750, L3100.5170, L501.9520, L3890.6300, L500.4050, L3890.6005, L3100.5125, L3890.6100, L100.0100, L506.1000, L3400.1610, L506.0400, L509.8000 ####[facility] [address] [place], [place], [phone](894) Sodium [Moles/Vol] 138 mmol/L Normal 136-145 [facility] Comment on above: Performed By: #### L 3300.1750, L3100.5170, L501.9520, L3890.6300, L500.4050, L3890.6005, L3100.5125, L3890.6100, L100.0100, L506.1000, L3400.1610, L506.0400, L509.8000 ####[facility] [address] [place], [place], [address] T PROT 7.6 g/dL Normal 6.4-8.2 [facility] Comment on above: Performed By: #### L 3300.1750, L3100.5170, L501.9520, L3890.6300, L500.4050, L3890.6005, L3100.5125, L3890.6100, L100.0100, L506.1000, L3400.1610, L506.0400, L509.8000 ####[facility] [address] [place], [place], [phone] Urea nitrogen [Mass/Vol] 15 mg/dL Normal 7-18 [facility] Comment on above: Performed By: #### L 3300.1750, L3100.5170, L501.9520, L3890.6300, L500.4050, L3890.6005, L3100.5125, L3890.6100, L100.0100, L506.1000, L3400.1610, L506.0400, L509.8000 ####[facility] [address] [place], [place], [phone] Estradiolon 10-11-2024 ESTRADIOL 33.0 pg/mL Normal [facility] Comment on above: Result Comment: NORM [...] Performed By: #### L 3300.1750, L3100.5170, L501.9520, L3890.6300, L500.4050, L3890.6005, L3100.5125, L3890.6100, L100.0100, L506.1000, L3400.1610, L506.0400, L509.8000 ####[facility] [address] [place], [place], [phone] Follicle Stimulating Hormone on 10-11-2024 FSH 5.6 mIU/mL Normal [facility] Comment on above: Result Comment: NORMAL REFERENCE RANGES FEMALE FOLLICULAR 2.3 - 12.6 mIU/mL MID-CYCLE PEAK 5.2 - 17.5 mIU/mL LUTEAL 1.7 - 12.9 mIU/mL POST-MENOPAUSAL ON MHT 5.9 - 72.8 mIU/mL NOT ON MHT 12.7 - 132.2 mlU/mL MALE 0.7 - 10.8 mIU/mL Performed By: #### L 3300.1750, L3100.5170, L501.9520, L3890.6300, L500.4050, L3890.6005, L3100.5125, L3890.6100, L100.0100, L506.1000, L3400.1610, L506.0400, L509.8000 ####[facility] [address] [place], [place], [phone] Gram Stainon 10-11-2024 GS Reason for Exam: vaginal discharge Gram Stain 1+ Gram positive cocci 4+ Gram variable hu No Gram negative diplococci 1+ Epithelial cells Score = 9 Interpretation: 0-3 Normal, 4-6 Intermediate, 7-10 Positive BV Normal [facility] Comment on above: Performed By: #### M 100.3200, M100.2000, L7400.0280, L7000.1800 #### [facility] [address] [place], [place], [phone] Luteinizing Hormoneon 2024 LH 8.4 mIU/mL Normal [facility] Comment on above: Result Comment: NORMAL REFERENCE RANGES FEMALE FOLLICULAR 1.9 - 26.2 mIU/mL MID-CYCLE PEAK 22.8 - 76.1 mIU/mL LUTEAL 0.6 - 16.6 mIU/mL POST-MENOPAUSAL ON MHT 1.1 - 52.4 mIU/mL NOT ON MHT 8.6 - 61.8 mIU/mL MALE 1.2 - 10.6 mIU/mL Performed By: #### L 3300.1750, L3100.5170, L501.9520, L3890.6300, L500.4050, L3890.6005, L3100.5125, L3890.6100, L100.0100, L506.1000, L3400.1610, L506.0400, L509.8000 ####[facility] [address] [place], [place], [address] Cna Per Diem Office Visit Reporton 10-11-2024 Cna Per Diem Office Visit Report [facility] [address], [address] [place] [address] OFFICE VISIT Date of Service: 10/11/24 MR#: [id number] Acct: [id number] Name: LILLIAN DRAKE Rep #: [id number] : 1985 Provider: EMERITA Thomas Age/Sex: 38/F Location[place] [facility] [place] Status: Signed Intake Vital Signs 03/29/24 09:46 10/11/24 14:09 10/11/24 14:10 Height 5 ft 3 in 5 ft 3 in 5 ft 3 in Weight: 170 lb BMI 30.1 BP 103/78 Intake Visit Reasons: Annual ([employer]QU[employer]MENT [employer]) do not shorten 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 Scott on Jass Mike 06/24/22 Gabi 33 live - Male spinal [facility] Scott on Jass iMke Delivery Date: 08/14/09 Last Updated by: Alison [...] pprom 33 ltcs bs SM. HPI Annual ([employer] E[employer]IPMENT E[employer]OR) do not shorten Details: LILLIAN DRAKE is [...] mammogram: no Colon cancer screening: prior to 2015; normal at that time. Other preventative health care screenings: Primary Care Provider: Dr. Rucker Female Reproductive History Last Menstrual Period: 10/07/24 Cycle Length: 21-35 Questions: metorrhagia: Yes, sexually active: Yes, dyspareunia: No and PCB: No (more content not included)... Normal [facility] STREP A MOLECULAR (POC)on Procedural Control Valid [facility] Strep A (POCT) Negative Negative [facility] T4 Free Directon 10-11-2024 T4 FREE DIRECT 0.75 ng/dL Low 0.76-1.46 [facility] Comment on above: Performed By: #### L 3300.1750, L3100.5170, L501.9520, L3890.6300, L500.4050, L3890.6005, L3100.5125, L3890.6100, L100.0100, L506.1000, L3400.1610, L506.0400, L509.8000 ####[facility] [address] [place], [place], [address] Thyroid Stim Hormone (TSH)on 10-11-2024 TSH 1.200 uIU/mL Normal 0.358-3.740 [facility] Comment on above: Performed By: #### L 3300.1750, L3100.5170, L501.9520, L3890.6300, L500.4050, L3890.6005, L3100.5125, L3890.6100, L100.0100, L506.1000, L3400.1610, L506.0400, L509.8000 ####[facility] [address] [place], [address] [facility] Telephone ([id number]) LILLIAN DRAKE ([id number]) 1985 F Date Time Provider Department 08/28/24 JENNIFER CHRISTINA [id number] During your visit today, we recorded the [...] Third or Fourth No Show? No Brenton Smith Alfredo August 28, 2024 3:48 PM Allergies As [...] Encounter Status:Closed by BRENTON NATHAN on 08/28/24 [facility] XR ANKLE 3V AP/LAT/OBL LTon 07-16-2024 XR [...] joint effusion. IMPRESSION: No acute osseous abnormality. Welfare Adviser: [facility] Transcribe Date/Time: Jul 18 2024 7:34A Dictated by : LOUIS FOSTER MD This examination was interpreted and the report reviewed and electronically signed by: LOUIS FOSTER MD on Jul 18 2024 7:36AM EST [id number] Normal [facility] XR ANKLE 3V AP/LAT/OBL RTon 07-16-2024 XR [...] joint effusion. IMPRESSION: No acute osseous abnormality. Welfare Adviser: [facility] Transcribe Date/Time: Jul 18 2024 7:33A Dictated by : LOUIS FOSTER MD This examination was interpreted and the report reviewed and electronically signed by: LOUIS FOSTER MD on Jul 18 2024 7:34AM EST [id number] Normal [facility] XR KNEE 3V AP/LAT/MERCHANT L Ton 07-16-2024 [...] tissue swelling. IMPRESSION: Negative left knee x-ray. Welfare Adviser: [employer] Transcribe Date/Time: Jul 19 2024 2:36P Dictated by : DENTON MONTEZ MD This examination was interpreted and the report reviewed and electronically signed by: DENTON MONTEZ MD on Jul 19 2024 2:38PM EST [id number] Normal [facility] XR KNEE 3V AP/LAT/MERCHANT R Ton 07-16-2024 [...] joint effusion. IMPRESSION: No acute bony abnormality. Welfare Adviser: [employer] Transcribe Date/Time: Jul 23 2024 8:43P Dictated by : RICKI DUARTE MD This examination was interpreted and the report reviewed and electronically signed by: RICKI DUARTE MD on Jul 23 2024 8:44PM EST [id number] Normal [facility] CNOVon 07-12-2024 CNOV Office Visit ([id number]) LILLIAN DRAKE ([id number]) 1985 F Date Time Provider Department 07/12/24 9:00 AM JENNIFER CHRISTINA [id number] During your visit today, we recorded the following information about you: Pulse Respiration Blood pressure Weight 72/minute 18/minute 109/69 74.4 kg Height 1.6 m Jennifer Christina MD 07/12/2024 3:[address] Jennifer Werner M.D. 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 [...] Treatments tried: continues on Sertraline 150mg QD, [place] ER 450mg QD. ACTIVE PROBLEM LIST Adult [...] kids, shared custody. Pt currently working at [employer], part-time, . 2 kids in school, other [...] Eyes: Negat (more content not included)... Normal [facility] CNOVon 07-09-2024 [facility] Office Visit (UCWSTR ) LILLIAN DRAKE ([id number]) 1985 F Date Time Provider Department 07/09/24 8:00 AM TO [facility] During your visit today, we recorded the following information about you: Temperature Pulse Respiration Blood pressure 97.1 degrees 78/minute 16/minute 122/70 Weight 74.1 kg To Harris PA 07/09/2024 8:12 AM Signed This note was created using [employer]. Subjective Lillian Santanaey is a 38 year old female. HPI [...] Maternal Grandmother Ischemic Heart Disease Maternal Grandfather [place] at later age Diabetes Maternal Grandfather Hypertension [...] nursing no (more content not included)... Normal [facility] COVID AND INFLUENZA A/B AND RSV PCR, ROUTINEon 07-09-2024 SARS-CoV-2 (COVID-19) RNA FRANCESCO+probe Ql (Unsp spec) SARS-COV-2 (AGENT OF COVID-19) RNA: Not detected INFLUENZA A RNA: Not detected INFLUENZA B RNA: Not detected RESPIRATORY SYNCYTIAL VIRUS (RSV) RNA: Not detected Normal [facility] Comment on above: Performed By: #### C VFLRS ####[facility] LABCLIA [id number] [place] [id number] [place] CNPNon 06-21-2024 CNPN Telephone (AGRHEUHWN ) LILLIAN DRAKE ([id number]) 1985 F Date Time Provider Department 06/21/24 FORTINO TEJEDAUHWAll During your visit today, we recorded the following information about you: Mejia Mata 06/21/2024 12:14 PM Signed Functional medicine referral You have to go to [facility] Sapp Allergies As of Date: 06/21/2024 Noted Allergy [...] Encounter Status:Closed by MEJIA MATA on 06/21/24 [facility] CNOVon 06-20-2024 CNOV Office Visit (UCWSTR ) LILLIAN DRAKE ([id number]) 1985 F Date Time Provider Department 06/20/24 3:15 PM [facility]E [facility] During your visit today, we recorded the following information about you: Temperature Pulse Respiration Blood pressure 97.6 degrees 76/minute 16/minute 108/62 Weight 74.5 kg Kellee Rai APRN.ULTRASOUND SPECIALIST 06/20/2024 3:58 PM Signed This note was created using liveMag.roriter. Subjective Lillian Drake is a 38 year [...] A/B AND RSV PCR, ROUTINE Kellee Rai APRN.Kellee Hurd APRN.CNP 06/20/2024 3:31 PM Signed [facility] [...] colds per year. Colds are transmitted from gmifyg-yv-ycdxkv. Less often, the virus can be transmitted [...] days, alt (more content not included)... Normal [facility] 06-20-2024 CNPN Telephone (RHBATH) LILLIAN DRAKE ([id number]) 1985 F Date Time Provider Department 06/20/24 MARIA LUISA TYLER [id number] During your visit today, we recorded the following information about you: Cassie Todd LPN 06/20/2024 2:06 PM Signed Patient left vm stating she thinks she [...] Signed Scheduled with a virtual for Fortino [id number] at 7a [facility] Phan Allergies As of Date: 06/20/2024 Noted [...] Status:Closed by CASSIE TODD on 06/20/24 Normal [facility] COVID AND INFLUENZA A/B AND RSV PCR, ROUTINEon 06-20-2024 SARS-CoV-2 (COVID-19) RNA FRANCESCO+probe Ql (Unsp spec) SARS-COV-2 (AGENT OF COVID-19) RNA: Not detected INFLUENZA A RNA: Not detected INFLUENZA B RNA: Not detected RESPIRATORY SYNCYTIAL VIRUS (RSV) RNA: Not detected Normal [facility] Comment on above: Performed By: #### C VFLRS ####[facility] LABCLIA [id number] [address] OF [facility]20[facility][id number] LILLIAN DRAKE ([id number]) 1985 F Date Time Provider Department 06/19/24 JENNIFER CHRISTINA [id number] During your visit today, we recorded the [...] diagnosed. Please advise. DELIA Sánchez Jenny L, APRN.ULTRASOUND SPECIALIST 06/20/2024 8:20 AM Signed Please advise patient to schedule in office appt for evaluation. Encouraged Tylenol up to 1000 mg every 8 hours as needed. Can also try Aleve twice daily with food Let me know if questions Noelle Cummins APRN.ULTRASOUND SPECIALIST June 20, 2024 8:20 AM Toney Guillaume [...] Encounter Status:Closed by TONEY GUILLAUME on 06/19/24 [facility] CNOVon 06-15-2024 CNOV Office Visit (UCWSTR ) LILLIAN DRAKE ([id number]) 1985 F Date Time Provider Department 06/15/24 3:45 PM TO [facility] During your visit today, we recorded the following information about you: Temperature Pulse Respiration Blood pressure 98.3 degrees 77/minute 20/minute 96/66 Weight Last Period 73 kg 05/21/24 To Harris PA 06/15/2024 4:05 PM Signed This note was created using liveMag.roriter. Subjective Lillian Drake is a 38 year [...] partial, sustained full, or sustained partial remission ([facility]) 12/10/2014 labor delivered 6 weeks early Recurrent major depressive disorder, in partial remission ([facility]) 11/19/2015 Rh negative state in antepartum period [...] Maternal Grandmother Ischemic Heart Disease Maternal Grandfather [place] at later age Diabetes Maternal Grandfather Hypertension [...] sinus tenderne (more content not included)... Normal [facility] XR CHEST 2V FRONTAL/LATon XR CHEST 2V [...] tissues: Unremarkable. IMPRESSION: No acute radiographic abnormality. Welfare Adviser: SAVITA Transcribe Date/Time: Jun 15 2024 3:58P Dictated by : DILSHAD CAZARES MD This examination was interpreted and the report reviewed and electronically signed by: DILSHAD CAZARES MD on Jun 15 2024 4:00PM EST [id number] Normal [facility] XR Chest PA and Lateralon IMPRESSION: No acute radiographic abnormality. Welfare Adviser: SAVITA Transcribe Date/Time: Jun 15 2024 3:58P Dictated by : DILSHAD CAZARES MD This examination was interpreted and the report reviewed and electronically signed by: DILSHAD CAZARES MD on Jun 15 2024 4:00PM [facility] DIVISION OF RADIOLOGY * * *Final Report* [...] soft tissues: Unremarkable. DIVISION OF RADIOLOGY Provider, [facility] - 06/15/2024 * * *Final Report* * [...] Unremarkable. IMPRESSION IMPRESSION: No acute radiographic abnormality. Welfare Adviser: SAVITA Transcribe Date/Time: Jun 15 2024 3:58P Dictated by : DILSHAD CAZARES MD This examination was interpreted and the report reviewed and electronically signed by: DILSHAD CAZARES MD on Jun 15 2024 4:00PM EST [facility] Radiology Study observation (narrative) [facility] XR Chest PA and LateralOrder ed By: [facility] Provider on 06-15-2024 [facility] CNOVon 04-27-2024 CNOV Office Visit ([facility] ) LILLIAN DRAKE ([id number]) 1985 F Date Time Provider Department 04/27/24 1:15 PM [facility]ICKI LAF[facility] [place] [facility] During your visit today, we recorded the following information about you: Temperature Pulse Respiration Blood pressure 97 degrees 82/minute 16/minute 122/74 Weight 69.7 kg Ricki Lafleur APRN.ULTRASOUND SPECIALIST 04/27/2024 1:49 PM Signed Subjective HPI HPI [...] Maternal Grandmother Ischemic Heart Disease Maternal Grandfather [place] at later age Diabetes Maternal Grandfather Hypertension [...] No dischar (more content not included)... Normal [facility] XR CHEST 2V FRONTAL/LATon XR CHEST 2V [...] tissues: Unremarkable. IMPRESSION: No acute radiographic abnormality. Welfare Adviser: SAVITA Transcribe Date/Time: Apr 27 2024 1:29P Dictated by : DENTON MONTEZ MD This examination was interpreted and the report reviewed and electronically signed by: DENTON MONTEZ MD on Apr 27 2024 1:29PM EST [id number] Normal [facility] XR Chest PA and Lateralon IMPRESSION: No acute radiographic abnormality. Welfare Adviser: SAVITA Transcribe Date/Time: Apr 27 2024 1:29P Dictated by : DENTON MONTEZ MD This examination was interpreted and the report reviewed and electronically signed by: DENTON MONTEZ MD on Apr 27 2024 1:29PM [facility] DIVISION OF RADIOLOGY * * *Final Report* [...] soft tissues: Unremarkable. DIVISION OF RADIOLOGY Provider, [facility] - 04/27/2024 * * *Final Report* * [...] Unremarkable. IMPRESSION IMPRESSION: No acute radiographic abnormality. Welfare Adviser: SAVITA Transcribe Date/Time: Apr 27 2024 1:29P Dictated by : DENTON MONTEZ MD This examination was interpreted and the report reviewed and electronically signed by: DENTON MONTEZ MD on Maximino 26 2024 1:29PM [facility] Radiology Study observation (narrative) [facility] XR Chest PA and LateralOrder ed By: Ccf Provider on 04-27-2024 [facility] Genital Culture Comprehensiv naheed 04-01-2024 VAC Reason for Exam: pel jose m pain Yeast, not Divine albicans Amount Growth 3+ Normal [facility] Comment on above: Performed By: #### M 100.3200, M100.2000, L7400.0280, L7000.1800 #### [facility] [address] [place], [address] Emergency Department Summary on 03-29-2024 Emergency Department Summary [facility] Medical Records Department [address] [place] [address] Emergency Department Summary 03/29/24 MR#: [id number] Acct: [id number] Name: LILLIAN DRAKE Rep #: [id number] : 1985 38 From: Al Hassan MD [...] has never had before. She saw her TESTING CONSULTANT today who did a pelvic exam, she was sent here afterwards, the patient states she is looking for answers clearly. When I asked her about her pelvic exam, she states that the majority of it was insensate until they were pushing on her ovaries and she states that was a little sore. 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 Normal [facility] Gram Stainon 03-29-2024 GS Reason for Exam: pel jose m pain Gram Stain 4+ Yeast Like Organisms 4+ Gram positive rods 1+ White Blood Cells No Gram negative diplococci Score = 0 Interpretation: 0-3 Normal, 4-6 Intermediate, 7-10 Positive BV Normal [facility] Comment on above: Performed By: #### M 100.3200, M100.2000, L7400.0280, L7000.1800 #### [facility] [address] [place], [address] [facility] Office Visit Reporton 03-29-2024 Cna Per Diem Office Visit Report [facility] [address] [place] [address] OFFICE VISIT Date of Service: 03/29/24 MR#: [id number] Acct: [id number] Name: LILLIAN DRAKE Rep #: [id number] : 1985 Provider: EMERITA junior Age/Sex: 38/F [place] [facility] [place] Status: Signed Intake Vital Signs 03/27/24 14:48 03/29/24 09:00 Height 5 ft 3 in 5 ft 3 in Weight: 155 lb 2 oz BMI 27.4 BP 116/84 H Intake Visit Reasons: Pelvic pain, ER follow up Chief Complaint: pelvic pain ER f/u 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: No Is patient in pain?: No [...] (Updated 03/29/24 @ 09:58 by Cinthia Flores GAME TESTER, APRILC) depression History of premature rupture of [...] occupational status: employed 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; [employer] Smoking Status: Current every day smoker tobacco type: cigarettes alcohol intake: current details: occasionally; not while substance use type: marijuana caffeine: Yes what type of physical activity do you participate in: none seatbelt use: always do you feel safe at home: Yes additional social history: Jodililo Rashid HPI Pelvic pain, ER follow up Details: LILLIAN [...] Anesthesia Del Locatn Provider FOB Unknown 2018 SABToan C SM 08/14/09 Toby Nuñez 34 live - 4lbs 11oz Male 2 hours epidural Ak daisy General 02/14/16 Emily 38 live - full term 7lbs 13oz Female 26 hours epidural Jeffery Fiore 06/24/22 Amaury 35 live - Male spinal [facility] Scott on Jass Mike 06/24/22 Gabi 33 live - Male spinal [facility] Scott on Jass Mike Delivery Date: [...] list for complications, and ptl pprom 33 [facility] bs SM. ROS Const Constitutional: Reports system reviewed and no additional compl (more content not included)... Normal [facility] Spine Lumbar (Routine)on Spine Lumbar (Routine) [facility] Imaging Services [address] [place], [place] [address] Spine Lumbar (Routine) MR#: [id number] Acct: [id number] Name: LILLIAN DRAKE Rep #: [id number] : 1985 F 38 From: Lupillo Lynn MD PCP: JENNIFER GOODMAN MD Status: REG ER Study: Spine Lumbar (Routine) Date of Exam: 03/29/24 Exam# [id number] Ordering [place]: [place] [id number] STUDY: MRI LUMBAR SPINE WITHOUT CONTRAST REASON [...] Dr. Al Hassan MD; JENNIFER GOODMAN MD Welfare Adviser: Signed Normal [facility] CNOVon 03-28-2024 OV Office Visit ([id number]) LILLIAN DRAKE ([id number]) 1985 F Date Time Provider Department 03/28/24 3:40 PM MEHRAN COOPER [id number] During your visit today, we recorded the following information about you: Pulse Respiration Blood pressure Weight 84/minute 18/minute 101/66 70.8 kg Height 1.6 m Mehran Cooper, MAURICIO.SARA 03/28/2024 4:49 PM Signed [facility] [address] Date of Evaluation: 03/28/2024 Patient Name: Lillian [...] Intramuscular Given without incident. 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 She was evaluated at [facility] yesterday. Records not available. She reports pelvic [...] Maternal Grandmother Ischemic Heart Disease Maternal Grandfather [place] at later age Diabetes Maternal Grandfather Hypertension Maternal Grandfather Thyro (more content not included)... Normal [facility] CNPNon 03-28-2024 CNPN Telephone ([id number] ) LILLIAN DRAKE ([id number]) 1985 F Date Time Provider Department 03/28/24 MEHRAN COOPER [id number] During your visit today, we recorded the following information about you: Meron Tubbs 03/28/2024 4:49 PM Signed Physical Therapy Confirmation number: [id number] Meron Tubbs 04/13/2024 7:44 AM Signed Patient Declined PP/10 1220 declined Allergies As of Date: 03/28/2024 Noted Allergy Reaction DICYCLOMINE 03/27/2018 14 - Other: See Comments Comments: Severe headache. LEXAPRO (ESCITALOPRAM OXALATE) 06/22/2019 14 - Other: See Comments Comments: Nausea PENICILLINS 06/06/2008 2 - Rash Date Reviewed: 03/28/2024 Reviewed by: Josephine Gutierrez MA - Fully Assessed Reason for Visit: Internal Referrals/resources [908] Cmt: Physical Therapy Prescriptions as of 04/13/2024 [...] Encounter Status:Closed by MERON TUBBS on 03/28/24 [facility] Basophil percentageOrdered B y: Eliseo Ricardo on 01-23-2024 Chloride [Moles/Vol] 109 mmol/L 98-107 [facility] Glucose [Mass/Vol] 87 mg/dL 74-106 [facility] Potassium [Moles/Vol] 3.8 mmol/L 3.5-5.1 [facility] Sodium [Moles/Vol] 136 mmol/L 136-145 [facility] Laboratory - Chemistry and C hemistry - challengeOrdered By: Eliseo Ricardo on 01-23-2024 CO2 [Moles/Vol] 19.0 mmol/L 21.0-32.0 [facility] Urea nitrogen/Creatinine [Mass ratio] 21.2 mg/mg 10-20 [facility] No Panel InformationOrdered By: Eliseo Ricardo on 01-23-2024 Estimated Creatinine Clearance Calc 121.71 ml/min [facility] Estimated GFR (MDRD) Amer 142 mL/min >60 [facility] Comment on above: GFR Calc Estimated GFR (MDRD) Non-Af Amer 117 mL/min >60 [facility] Comment on above: Non- GFR Calc Serum or plasma calcium jazmin urement (mass/volume)Ordered By: Eliseo Ricardo on 01-23-2024 Calcium [Mass/Vol] 9.0 mg/dL 8.5-10.1 [facility] Serum or plasma choriogonado tropin detectionOrdered By: Eliseo Ricardo on 01-23-2024 HCG ( test) Ql Negative [facility] Serum or plasma creatinine m easurement (mass/volume)Ordered By: Eliseo Ricardo on 01-23-2024 Creatinine [Mass/Vol] 0.61 mg/dL 0.55-1.02 [facility] Comment on above: The validity of the calculated GFR & GFRAA in patients over 70 years has not been determined. Clinical correlation is essential. Serum or plasma urea nitroge n measurement (mass/volume)Ordered By: Eliseo Ricardo on 01-23-2024 Urea nitrogen [Mass/Vol] 13 mg/dL 7-18 [facility] Thin prep Papanicolaou smear with manual screeningOrdered By: Eliseo Ricardo on 01-23-2024 Thin prep Papanicolaou smear with manual screening 8 02-14 [facility] .Auto Diffon 12-25-2023 Basophil, Absolute 0.1 10 3/mcL Normal 0.0-0.2 [facility] ([place]) Comment on above: Performed By: #### A CLINT, LIP, ADIFF, CBC, MDW, CMP, GFR #### [address] [address] Basophils/100 WBC (Bld) 0.6 % Normal 0.0-2.5 [facility] ([place]) Comment on above: Performed By: #### A CLINT, LIP, ADIFF, CBC, MDW, CMP, GFR #### [address] [address] Eosinophil, Absolute 0.4 10 3/mcL Normal 0.0-0.4 [facility] ([place]) Comment on above: Performed By: #### A CLINT, LIP, ADIFF, CBC, MDW, CMP, GFR #### [address] [address] Eosinophils/100 WBC (Bld) 4.3 % Normal 0.0-7.0 [facility] ([place] Comment on above: Performed By: #### A CLINT, LIP, ADIFF, CBC, MDW, CMP, GFR #### [address] [address] Lymphocyte, Absolute 2.2 10 3/mcL Normal 0.8-3.9 [facility] ([place] Comment on above: Performed By: #### A CLINT, LIP, ADIFF, CBC, MDW, CMP, GFR #### [address] [address] Lymphocytes/100 WBC (Bld) 25.4 % Normal 10.0-50.0 [facility] ([place] Comment on above: Performed By: #### A CLINT, LIP, ADIFF, CBC, MDW, CMP, GFR #### [address] [address] Monocyte, Absolute 0.4 10 3/mcL Normal 0.2-1.0 [facility] ([place] Comment on above: Performed By: #### A CLINT, LIP, ADIFF, CBC, MDW, CMP, GFR #### [address] [address] Monocytes/100 WBC (Bld) 4.6 % Normal 1.7-13.0 [facility] ([place] Comment on above: Performed By: #### A CLINT, LIP, ADIFF, CBC, MDW, CMP, GFR #### [address] [address] Neutrophils/100 WBC (Bld) 65.1 % Normal 37.0-80.0 [facility] ([place] Comment on above: Performed By: #### A CLINT, LIP, ADIFF, CBC, MDW, CMP, GFR #### [address] [address] .GFRon 12-25-2023 GFR 103 ml/min/1.73sqm Normal [facility] ([place] Comment on above: Result Comment: GFR Population [...] Performed By: #### P REGU, UA #### [address] [address] GFR Non- 85 ml/min/1.73sqm Normal [facility] ([place] Comment on above: Result Comment: GFR Population [...] Performed By: #### P REGU, UA #### [address] [address] .MDWon 12-25-2023 Monocyte Distribution Width 16.35 Normal 0.00-20.00 [facility] ([place] Comment on above: Result Comment: For ED adult patients suspected of sepsis, MDW<=20.0 does not rule out sepsis or risk of sepsis Performed By: #### A CLINT, LIP, ADIFF, CBC, MDW, CMP, GFR #### [address] [address] .NEUABSon 12-25-2023 Neutrophil, Absolute 5.5 10 3/mcL Normal 2.9-6.2 [facility] ([place] Comment on above: Performed By: #### A CLINT, LIP, ADIFF, CBC, MDW, CMP, GFR #### [address] [address] .Urinalysis Microscopic (AO) on 12-25-2023 UA Bacteria Trace Abnormal [facility] ([place] Comment on above: Performed By: #### P REGU, UAMICAO, UA #### [place] [address] UA RBC 0-5 Abnormal None Seen [facility] ([place] Comment on above: Performed By: #### P REGU, UAMICAO, UA #### [place] [address] UA Squam Epithelial LOADED Abnormal None Seen [facility] ([place]) Comment on above: Performed By: #### P REGU, UAMICAO, UA #### [place] [address] UA WBC 0-5 Abnormal None Seen [facility] ([place] Comment on above: Performed By: #### P REGU, UAMICAO, UA #### [place] [address] UA Yeast Trace Abnormal [facility] ([place] Comment on above: Performed By: #### P REGU, UAMICAO, UA #### [place] [address] CBCon 12-25-2023 Erythrocyte distribution width (RBC) [Ratio] 14.8 % High 11.5-14.5 [facility] ([place] Comment on above: Performed By: #### A CLINT, LIP, ADIFF, CBC, MDW, CMP, GFR #### [place] [address] Hematocrit (Bld) [Volume fraction] 41.3 % Normal 37.0-47.0 [facility] ([place] Comment on above: Performed By: #### A CLINT, LIP, ADIFF, CBC, MDW, CMP, GFR #### [place] [address] Hgb 14.0 G/dL Normal 12.0-16.0 [facility] ([place] Comment on above: Performed By: #### A CLINT, LIP, ADIFF, CBC, MDW, CMP, GFR #### [place] [address] MCH (RBC) [Entitic mass] 29.9 pg Normal 27.0-31.2 [facility] ([place] Comment on above: Performed By: #### A CLINT, LIP, ADIFF, CBC, MDW, CMP, GFR #### [address] [address] MCHC 33.9 G/dL Normal 33.0-37.0 [facility] ([place] Comment on above: Performed By: #### A CLINT, LIP, ADIFF, CBC, MDW, CMP, GFR #### [address] [address] MCV (RBC) [Entitic vol] 88.2 fL Normal 80.0-94.0 [facility] ([place] Comment on above: Performed By: #### A CLINT, LIP, ADIFF, CBC, MDW, CMP, GFR #### [address] [address] Platelet 238 10 3/mcL Normal 130-400 [facility] ([place] Comment on above: Performed By: #### A CLINT, LIP, ADIFF, CBC, MDW, CMP, GFR #### [address] [address] Platelet mean volume (Bld) [Entitic vol] 7.9 fL Normal 7.4-10.4 [facility] ([place] Comment on above: Performed By: #### A CLINT, LIP, ADIFF, CBC, MDW, CMP, GFR #### [address] [address] RBC 4.68 10 6/mcL Normal 4.20-5.40 [facility] ([place] Comment on above: Performed By: #### A CLINT, LIP, ADIFF, CBC, MDW, CMP, GFR #### [address] [address] WBC 8.5 10 3/mcL Normal 4.6-10.8 [facility] ([place] Comment on above: Performed By: #### A CLINT, LIP, ADIFF, CBC, MDW, CMP, GFR #### [address] [address] CMPon 12-25-2023 Albumin Level 4.1 G/dL Normal 3.5-5.0 [facility] ([place] Comment on above: Performed By: #### P REGU, UA #### [address] [address] Albumin/Globulin [Mass ratio] 1.1 {ratio} Normal 1.1-2.5 [facility] ([place] Comment on above: Performed By: #### P REGU, UA #### [address] [address] ALP [Catalytic activity/Vol] 67 U/L Normal 40-135 [facility] ([place] Comment on above: Performed By: #### P REGU, UA #### [address] [address] ALT [Catalytic activity/Vol] 17 U/L Normal 14-59 [facility] ([place] Comment on above: Performed By: #### P REGU, UA #### [address] [address] AST [Catalytic activity/Vol] 11 U/L Normal 10-40 [facility] ([place] Comment on above: Performed By: #### P REGU, UA #### [address] [address] Bili Total 0.2 mg/dL Normal 0.2-1.0 [facility] ([place] Comment on above: Result Comment: Use of this assay is not recommended for patients undergoing treatment with eltrombopag due to the potential for falsely elevated results. Performed By: #### P REGU, UA #### [address] [address] BUN/Creatinine Ratio 16 ratio Normal 7-27 [facility] ([place]) Comment on above: Performed By: #### P REGU, UA #### [address] [address] Calcium [Mass/Vol] 9.4 mg/dL Normal 8.4-10.2 [facility] ([place] Comment on above: Performed By: #### P REGU, UA #### [address] [address] Chloride [Moles/Vol] 104 mmol/L Normal 98-107 [facility] ([place]) Comment on above: Performed By: #### P REGU, UA #### [address] [address] CO2 [Moles/Vol] 26 mmol/L Normal 22-29 [facility] ([place] Comment on above: Performed By: #### P REGU, UA #### [address] [address] Creatinine [Mass/Vol] 0.77 mg/dL Normal 0.55-1.02 [facility] ([place]) Comment on above: Performed By: #### P REGU, UA #### [address] [address] Electrolyte Balance 13.0 mEq/L Normal 4.0-15.0 [facility] ([place]) Comment on above: Performed By: #### P REGU, UA #### [address] [address] Globulin 3.8 G/dL Normal [facility] ([place] Comment on above: Performed By: #### P REGU, UA #### [address] [address] Glucose [Mass/Vol] 83 mg/dL Normal 70-105 [facility] [place] Comment on above: Performed By: #### P REGU, UA #### [address] [address] Potassium [Moles/Vol] 3.8 mmol/L Normal 3.5-5.1 [facility] ([place] Comment on above: Performed By: #### P REGU, UA #### [address] [address] Sodium [Moles/Vol] 143 mmol/L Normal 136-145 [facility] [place] Comment on above: Performed By: #### P REGU, UA #### [facility] [address] [place], [place] [address] Total Protein 7.9 G/dL Normal 6.4-8.2 [facility] ([place] Comment on above: Performed By: #### P REGU, UA #### Estephania [address] [place], [place] [address] Urea nitrogen [Mass/Vol] 12 mg/dL Normal 7-18 [facility] ([place] Comment on above: Performed By: #### P REGU, UA #### Este[facility]ia [address] [address] [place], [place] [address] LABORATORYOrdered By: SYSTEM SYSTEM on 12-25-2023 Albumin [...] 12-25-2023 Lipase Level 47 U/L Normal 16-77 [facility] ([place] Comment on above: Performed By: #### P REGU, UA #### [address] [address] PREGUon 12-25-2023 HCG ( test) Ql (U) Negative Normal [facility] ([place] Comment on above: Performed By: #### P REGU, UAMICAO, UA #### [address] [address] test (u) int Not detected Invalid Interpretation Code [facility] ([place] Comment on above: Performed By: #### P REGU, UAMICAO, UA #### [address] [address] UAon 12-25-2023 Color (U) Yellow Normal [facility] ([place] Comment on above: Performed By: #### P REGU, UAMICAO, UA #### [address] [address] Glucose (U) [Mass/Vol] Negative Normal Negative [facility] ([place] Comment on above: Performed By: #### P REGU, UAMICAO, UA #### [address] [address] Ketones Ql (U) Negative Normal Negative [facility] ([place] Comment on above: Performed By: #### P REGU, UAMICAO, UA #### [address] [address] UA Appear Slightly Cloudy Abnormal Clear [facility] ([place] Comment on above: Performed By: #### P REGU, UAMICAO, UA #### [address] [address] UA Blood Negative Normal Negative [facility] ([place] Comment on above: Performed By: #### P REGU, UAMICAO, UA #### [address] [address] UA Leuk Est Negative Normal Negative [facility] ([place] Comment on above: Performed By: #### P REGU, UAMICAO, UA #### [address] [address] UA Nitrite Negative Normal Negative [facility] ([place] Comment on above: Performed By: #### P REGU, UAMICAO, UA #### [address] [address] UA pH 7.0 Normal 5.0 - 8.0 [facility] ([place] Comment on above: Performed By: #### P REGU, UAMICAO, UA #### [address] [address] UA Protein Negative Normal Negative [facility] ([place] Comment on above: Performed By: #### P REGU, UAMICAO, UA #### [address] [address] UA Spec Grav 1.020 Normal 1.015-1.025 [facility] ([place] Comment on above: Performed By: #### P REGU, UAMICAO, UA #### [address] [address] UA Specimen Type Void Normal [facility] ([place] Comment on above: Performed By: #### P REGU, UAMICAO, UA #### [address] [address] UA Urobilinogen 0.2 E.U./dL Normal 0.2-1.0 [facility] ([place] Comment on above: Performed By: #### P REGU, UAMICAO, UA #### [address] [address] Urobilinogen (U) [Mass/Vol] Negative Normal Negative [facility] ([place] Comment on above: Performed By: #### P REGU, UAMICAO, UA #### [place] [address] [place], [place] [address] LABORATORYOrdered By: Nadege Quach on 03-06-2023 Appearance [...] HCG ( test) Ql (U) Negative Normal [facility] ([place] Comment on above: Performed By: #### P REGU, UA #### [place] [address] [place], [place] [address] test (u) int Not detected Invalid Interpretation Code [facility] ([place]) Comment on above: Performed By: #### P REGU, UA #### [address] [address] UAon 03-06-2023 Color (U) Yellow Normal [facility] ([place] Comment on above: Performed By: #### P REGU, UA #### [address] [address] Glucose (U) [Mass/Vol] Negative Normal Negative [facility] ([place] Comment on above: Performed By: #### P REGU, UA #### [address] [address] Ketones Ql (U) Negative Normal Negative [facility] ([place] Comment on above: Performed By: #### P REGU, UA #### [address] [address] UA Appear Clear Normal Clear [facility] ([place] Comment on above: Performed By: #### P REGU, UA #### [address] [address] UA Blood Negative Normal Negative [facility] ([place] Comment on above: Performed By: #### P REGU, UA #### [address] [address] UA Leuk Est Negative Normal Negative [facility] ([place] Comment on above: Performed By: #### P REGU, UA #### [address] [address] UA Nitrite Negative Normal Negative [facility] ([place] Comment on above: Performed By: #### P REGU, UA #### [address] [address] UA pH 7.5 Normal 5.0 - 8.0 [facility] ([place] Comment on above: Performed By: #### P REGU, UA #### [address] [address] UA Protein Negative Normal Negative [facility] ([place] Comment on above: Performed By: #### P REGU, UA #### Estephania [address] [address] UA Spec Grav 1.020 Normal 1.015-1.025 [facility] ([place] Comment on above: Performed By: #### P REGU, UA #### [address] [place] [address] [place], [place] [address] UA Specimen Type Clean Catch Normal [facility] ([place] Comment on above: Performed By: #### P REGU, UA #### [address] [place] [address] [place], [place] [address] UA Urobilinogen 0.2 E.U./dL Normal 0.2-1.0 [facility] ([place] Comment on above: Performed By: #### P REGU, UA #### Estephania [address] [address] Urobilinogen (U) [Mass/Vol] Negative Normal Negative [facility] [place] ([place] Comment on above: Performed By: #### P REGU, UA #### [address] [address] XR ABDOMEN APon 03-06-2023 XR ABDOMEN AP [...] 03/06/2023 3:17:07 PM Ordering Provider: JESSICA Sharma [facility]ly [facility] [place] [facility] ([place]) MRI BRAIN WO/W IVCONon 12-10 [facility] LABORATORYOrdered By: Mil Briseno on 10-07-2022 [...] PM Modules accepted: Orders Normal [facility] [id number] 09-28-2022 [id number] Referral sent. Normal [facility] Office Visiton 09-23-2022 Follow-up visit [id number] Kia Fiore 1985 F Date Provider Department Center 09/23/2022 [id number] LI [facility] Family History Problem Relation Age of Onset COPD Paternal Grandmother Breast cancer Neg Hx Colon cancer Neg Hx Uterine cancer Neg Hx Ovarian cancer Neg Hx Family Status - Relation Status Age at Paternal Grandmother Alive Neg Hx Father Alive Mother Alive Maternal Grandmother Alive Maternal Grandfather Paternal Grandfather Alive Level of Service:78503 [place] OFFICE/OUTPATIENT NEW MODERATE MDM 45-59 MINUTES Reason for Visit and Comments: ER Follow-up [831] Fatigue [46] Extremity Swelling [795] Rash [864953] Normal [facility] PATINSon 09-23-2022 PATINS Start tylenol 1000 m g every 8 hours for 5-7 days, then as needed after that for pain every 8 hours. Normal [facility] Progress Noteon 09-23-2022 Progress Note Consistent with cont act dermatitis bilateral arms. Is improving, continue emollient cream avoid further possible irritants. Normal [facility] Progress Note Clinical exam consistent with mild carpal tunnel syndrome bilateral. Recommend nighttime splinting avoid prolonged flexion of wrists. Begin stretches for carpal tunnel once inflammation has decreased and less painful. Normal [facility] Progress Note Majority of numbness in hands is likely secondary to carpal tunnel exacerbated by recent increased use of hands and wrists. Will check B12, TSH. CBC CMP ESR in the emergency room. Normal [facility] Progress Note Symptoms diffuse, wi ll check Rh, BING, CRP. ESR was normal in ER. Normal [facility] Progress Note We will check BING, repeat CRP and TSH Normal [facility] Progress Note Stable. Continue sertraline 100 mg daily Normal [facility] Progress Note 09/23/2022 Lillian Fiore (: 1985) [...] & Plan: Symptoms diffuse, will check Rh, BING, CRP. ESR was normal in ER. 4. [...] and for ER follow up. Went to [place] ER for generalized joint stiffness, hands, feet, [...] after she has been picking up the carriers. Work up in ER consisted of [...] (more content not included)... Normal [facility] Absolute lymphocyte counton 09-17-2022 Lymphocytes Auto (Unsp spec) [#/Vol] 2.20 10*3/uL 0.83-4.51 [facility] Work Phone: Basophil percentageon 2021 Basophil percentage 0 SEEN /hpf 0-5 [facility] Work Phone: Basophils/100 WBC (Bld) 0.6 % 0-1 [facility] Work Phone: Chloride [Moles/Vol] 105 mmol/L 98-107 [facility] Work Phone: Eosinophils/100 WBC (Bld) 2.2 % 0-5 [facility] Work Phone: Glucose [Mass/Vol] 88 mg/dL 74-106 [facility] Work Phone: Neutrophils (Bld) [#/Vol] 4.2 10*3/uL 2.0-7.7 [facility] Work Phone: Neutrophils/100 WBC (Bld) 59.9 % 47-70 [facility] Work Phone: Potassium [Moles/Vol] 4.1 mmol/L 3.5-5.1 [facility] Work Phone: Comment on above: Moderate Hemolysis, Result may be falsely increased. Sodium [Moles/Vol] 135 mmol/L 136-145 [facility] Work Phone: WBC (Bld) [#/Vol] 7.0 10*3/uL 4.4-11.0 [facility] Work Phone: Beta hCG serum qualon 2021 Beta HCG ( test) Ql Negative [facility] Work Phone: Bilirubin Test strip Ql (U)o n 09-17-2022 Bilirubin Ql (U) Negative Negative [facility] Work Phone: Blood erythrocytes count (nu mber/volume)on 09-17-2022 RBC (Bld) [#/Vol] 4.87 10*6/uL 4.2-5.4 [facility] Work Phone: Blood hemoglobin measurement (mass/volume)on 09-17-2022 Hemoglobin (Bld) [Mass/Vol] 12.8 g/dL 12.0-15.0 [facility] Work Phone: Blood lymphocytes/100 leukoc yteson 09-17-2022 Lymphocytes/100 WBC (Bld) 31.6 % 19-41 [facility] Work Phone: Blood monocytes/100 leukocyt eson 09-17-2022 Monocytes/100 WBC (Bld) 5.3 % 0-10 [facility] Work Phone: Blood platelet mean volumeon 09-17-2022 Platelet mean volume (Bld) [Entitic vol] 10.1 fL 6.2-12.0 [facility] Work Phone: Determination of erythrocyte mean corpuscular volume (MCV)on 09-17-2022 MCV (RBC) [Entitic vol] 83.2 fL 81-99 [facility] Work Phone: [phone] Erythrocyte sedimentation ra mateusz 09-17-2022 ESR (Bld) [Velocity] 17 mm/h 0-30 [facility] Work Phone: [phone] Hematocrit Auto (Bld) [Volum e fraction]on 09-17-2022 Hematocrit (Bld) [Volume fraction] 40.5 % 37-47 [facility] Work Phone: [phone] Ketones Test strip Ql (U)on 09-17-2022 Ketones Ql (U) Negative Negative [facility] Work Phone: Laboratory - Chemistry and C hemistry - challengeon 09-17-2022 CO2 [Moles/Vol] 24.0 mmol/L 21.0-32.0 [facility] Work Phone: Urea nitrogen/Creatinine [Mass ratio] 25.6 mg/mg 10-20 [facility] Work Phone: [phone] Laboratory - Hematology and Cell countson 09-17-2022 Erythrocyte distribution width (RBC) [Entitic vol] 57.2 fL 35.1-43.9 [facility] Work Phone: [phone] Erythrocyte distribution width (RBC) [Ratio] 18.9 % 11.6-14.6 [facility] Work Phone: [phone] Immature granulocytes/100 WBC (Bld) 0.400 % 0.0-0.9 [facility] Work Phone: Comment on above: IG% - Immature Granu locytes (promyelocytes, myelocytes and metamyelocytes) > 1% indicates that a LEFT SHIFT is Present. MCH (RBC) [Entitic mass] 26.3 pg 27.0-32.0 [facility] Work Phone: Nucleated RBC/100 WBC (Bld) [Ratio] 0 % 0-5 [facility] Work Phone: [phone] MCHC Auto (RBC) [Mass/Vol]on 09-17-2022 MCHC (RBC) [Mass/Vol] 31.6 g/dL 32-36 [facility] Work Phone: [phone] Mucus LM Ql (Urine sed)on Mucus Ql (Urine sed) 0 SEEN /hpf [facility] Work Phone: [phone] Nitrite Test strip Ql (U)on 09-17-2022 Nitrite Ql (U) Negative Negative [facility] Work Phone: No Panel Informationon 09-17 Estimated Creatinine Clearance Calc 104.08 ml/min [facility] Work Phone: [phone] Estimated GFR (MDRD) Amer 139 mL/min >60 [facility] Work Phone: Comment on above: GFR Calc Estimated GFR (MDRD) Non-Af Amer 115 mL/min >60 [facility] Work Phone: Comment on above: Non- GFR Calc Platelets bldon 09-17-2022 Platelets (Bld) [#/Vol] 196 10*3/uL 150-450 [facility] Work Phone: [phone] Protein Test strip Ql (U)on 09-17-2022 Protein Ql (U) Negative Negative [facility] Work Phone: [phone] Serum or plasma C reactive p rotein measurement (mass/volume)on 09-17-2022 CRP [Mass/Vol] 3.29 mg/L 0.0-3.0 [facility] Work Phone: Comment on above: C-Reactive Protein ( CRP) provides useful information for thediagnosis, therapy and monitoring of inflammatory processesand associated diseases. For the evaluation of Relative Riskfor Cardiovascular Disease, a High Sensitivity CRP (HSCRP)should be ordered. Serum or plasma calcium jazmin urement (mass/volume)on 09-17-2022 Calcium [Mass/Vol] 8.7 mg/dL 8.5-10.1 [facility] Work Phone: Serum or plasma creatinine m easurement (mass/volume)on 09-17-2022 Creatinine [Mass/Vol] 0.63 mg/dL 0.55-1.02 [facility] Work Phone: Comment on above: The validity of the calculated GFR & GFRAA in patients over 70 years has not been determined. Clinical correlation is essential. Serum or plasma urea nitroge n measurement (mass/volume)on 09-17-2022 Urea nitrogen [Mass/Vol] 16 mg/dL 7-18 [facility] Work Phone: Squamous epithelial cells de tection in urine sediment by light microscopyon 09-17-2022 Epithelial cells.squamous LM Ql (Urine sed) 5-10 SEEN /hpf 5-10 [facility] Work Phone: Thin prep Papanicolaou smear with manual screeningon 09-17-2022 Thin prep Papanicolaou smear with manual screening 6 5-15 [facility] Work Phone: Urine blood detectionon 09-02 RBC Ql (U) Negative Negative [facility] Work Phone: RBC Ql (U) 0-5 SEEN /hpf 0-5 [facility] Work Phone: Urine clarityon 09-17-2022 Clarity (U) Sl. Cloudy Clear [facility] Work Phone: Urine color determinationon 09-17-2022 Color (U) Yellow Yellow [facility] Work Phone: Urine glucose detectionon Glucose Ql (U) Normal mg/dl Normal [facility] Work Phone: Urine leukocyte esterase det ection by dipstickon 09-17-2022 Leukocyte esterase Test strip Ql (U) Negative Negative [facility] Work Phone: [phone] Urine pHon 09-17-2022 pH (U) 7.0 [pH] 5.0 - 8.0 [facility] Work Phone: Urine sediment bacteria coun t by microscopy (number/high power field)on 09-17-2022 Bacteria LM.HPF (Urine sed) [#/Area] 0 /[HPF] None Seen [facility] Work Phone: Urine specific gravity measu rementon 09-17-2022 Specific gravity (U) [Rel density] 1.010 1.002-1.030 [facility] Work Phone: Urobilinogen Auto test strip Ql (U)on 09-17-2022 Urobilinogen Ql (U) Normal mg/dl Normal [facility] Work Phone: XR CHEST 2V FRONTAL/LATon [facility] XR Chest PA and Lateralon IMPRESSION: No acute radiographic abnormality. Welfare Adviser: [facility] Transcribe Date/Time: Aug 03 2022 10:08A Dictated by : YVONNE COLINDRES MD This examination was interpreted and the report reviewed and electronically signed by: YVONNE COLINDRES MD on Aug 03 2022 10:09AM [facility] DIVISION OF RADIOLOGY * * *Final Report* [...] soft tissues: Unremarkable. DIVISION OF RADIOLOGY Provider, [facility] Julissa Bronson [facility] - 08/03/2022 * * *Final Report* * [...] Unremarkable. IMPRESSION IMPRESSION: No acute radiographic abnormality. Welfare Adviser: [employer] Transcribe Date/Time: Aug 03 2022 10:08A Dictated by : YVONNE COLINDRES MD This examination was interpreted and the report reviewed and electronically signed by: YVONNE COLINDRES MD on Aug 03 2022 10:09AM EST [facility] Radiology Study observation (narrative) [facility] XR Chest PA and LateralOrder ed By: [facility] Provider on 08-03-2022 [facility] Basophil percentageon 2021 WBC (Bld) [#/Vol] 19.2 10*3/uL 4.4-11.0 [facility] Work Phone: Blood erythrocytes count (nu mber/volume)on 06-25-2022 RBC (Bld) [#/Vol] 3.47 10*6/uL 4.2-5.4 [facility] Work Phone: Blood hemoglobin measurement (mass/volume)on 06-25-2022 Hemoglobin (Bld) [Mass/Vol] 9.4 g/dL 12.0-15.0 [facility] Work Phone: Blood platelet mean volumeon 06-25-2022 Platelet mean volume (Bld) [Entitic vol] 10.2 fL 6.2-12.0 [facility] Work Phone: Determination of erythrocyte mean corpuscular volume (MCV)on 06-25-2022 MCV (RBC) [Entitic vol] 84.4 fL 81-99 [facility] Work Phone: Hematocrit Auto (Bld) [Volum e fraction]on 06-25-2022 Hematocrit (Bld) [Volume fraction] 29.3 % 37-47 [facility] Work Phone: Laboratory - Hematology and Cell countson 06-25-2022 Erythrocyte distribution width (RBC) [Entitic vol] 41.8 fL 35.1-43.9 [facility] Work Phone: Erythrocyte distribution width (RBC) [Ratio] 13.6 % 11.6-14.6 [facility] Work Phone: MCH (RBC) [Entitic mass] 27.1 pg 27.0-32.0 [facility] Work Phone: MCHC Auto (RBC) [Mass/Vol]on 06-25-2022 MCHC (RBC) [Mass/Vol] 32.1 g/dL 32-36 [facility] Work Phone: Platelets bldon 06-25-2022 Platelets (Bld) [#/Vol] 206 10*3/uL 150-450 [facility] Work Phone: Basophil percentageon 2021 Basophil percentage 0-5 SEEN /hpf 0-5 [facility] Work Phone: Bilirubin Test strip Ql (U)o n 06-24-2022 Bilirubin Ql (U) Negative Negative [facility] Work Phone: Ketones Test strip Ql (U)on 06-24-2022 Ketones Ql (U) Negative Negative [facility] Work Phone: Laboratory - Drug toxicology on 06-24-2022 Benzodiazepines Ql (U) Negative < 200 ng/mL [facility] Work Phone: Cannabinoids Screen Ql (U) Negative < 50 ng/mL [facility] Work Phone: Cocaine Ql (U) Negative < 300 ng/mL [facility] Work Phone: Opiates Ql (U) Negative < 300 ng/mL [facility] Work Phone: Mucus LM Ql (Urine sed)on Mucus Ql (Urine sed) 0 SEEN /hpf [facility] Work Phone: Nitrite Test strip Ql (U)on 06-24-2022 Nitrite Ql (U) Negative Negative [facility] Work Phone: No Panel Informationon 06-24 Vaginal Amniotic Fluid Detection Positive Negative [facility] Work Phone: Comment on above: Amniotic fluid prese nt indicates rupture of Membranes. RESULTS CALLED TO [facility] 06/24/221811 Radha Julien.REPORT READ BACK BY SAME . MDMA (Ecstasy) Screen Negative < 500 ng/mL [facility] Work Phone: [phone] Urine Barbiturates Screen Positive < 200 ng/mL [facility] Work Phone: [phone] Urine Drug Screen Comment [facility] Work Phone: Comment on above: CONFIRMATORY [...] Methadone Screen Negative < 300 ng/mL [facility] Work Phone: [phone] Protein Test strip Ql (U)on 06-24-2022 Protein Ql (U) Negative Negative [facility] Work Phone: [phone] Squamous epithelial cells de tection in urine sediment by light microscopyon 06-24-2022 Epithelial cells.squamous LM Ql (Urine sed) 5-10 SEEN /hpf 5-10 [facility] Work Phone: [phone] Urine amphetamine measuremen t (moles/volume)on 06-24-2022 Amphetamine (U) [Moles/Vol] Negative <1000 ng/mL [facility] Work Phone: [phone] Urine blood detectionon 09-2 2-2022 RBC Ql (U) Negative Negative [facility] Work Phone: RBC Ql (U) 0-5 SEEN /hpf 0-5 [facility] Work Phone: Urine clarityon 06-24-2022 Clarity (U) Clear Clear [facility] Work Phone: Urine color determinationon 06-24-2022 Color (U) Yellow Yellow [facility] Work Phone: Urine glucose detectionon Glucose Ql (U) Normal mg/dl Normal [facility] Work Phone: Urine leukocyte esterase det ection by dipstickon 06-24-2022 Leukocyte esterase Test strip Ql (U) Negative Negative [facility] Work Phone: Urine pHon 06-24-2022 pH (U) 6.5 [pH] 5.0 - 8.0 [facility] Work Phone: Urine phencyclidine (PCP) de tectionon 06-24-2022 Phencyclidine Ql (U) Negative < 25 ng/mL [facility] Work Phone: Urine sediment bacteria coun t by microscopy (number/high power field)on 06-24-2022 Bacteria LM.HPF (Urine sed) [#/Area] 1 /[HPF] None Seen [facility] Work Phone: Urine specific gravity measu rementon 06-24-2022 Specific gravity (U) [Rel density] 1.015 1.002-1.030 [facility] Work Phone: Urobilinogen Auto test strip Ql (U)on 06-24-2022 Urobilinogen Ql (U) Normal mg/dl Normal [facility] Work Phone: STREP A MOLECULAR (POC)on Procedural Control Valid [facility] Strep A (POCT) Negative Negative [facility] Progress Noteon 06-22-2022 [place] [employer] Authentication Interface Message Text [facility] MATERNAL MEDICINE - [facility] DR. ALVAREZ OFFICE VISIT NOTE DOS: 06/22/2022 06/22/2022 Chief Complaint She presents for review of progress in thus far and for comprehensive review of her maternal -obstetric- risks in this . The reasons for the visit are as highlighted in the concluding summary communication to oil tester which is my problem-based office review. History [...] mg daily that was started by her oil tester and she is doing well. We discussed [...] gestation. Ultim (more content not included)... Normal [facility] CULTURE URINEon 06-21-2022 CULTURE URINE CULTURE URINE --> Status: F No growth (<1,000 CFU/ml). [facility] Comment on above: Performed By: #### C /UR #### [address] Group B Strep Screen PCRon 0 06-21-2022 Group B Strep Screen PCR Group B Strep Screen PCR --> Status: F NEGATIVE Expected Result: Negative CDC guidelines for prevention of Group B Strep disease recommends collection of both vaginal and rectal specimens for optimal recovery of GBS. Methodology - Real Time PCR ([employer]ach[employer]) Expected Result: Negative CDC guidelines for prevention of Group B Strep disease recommends collection of both vaginal and rectal specimens for optimal recovery of GBS. Methodology - Real Time PCR (Bueenoid) [facility] Comment on above: Performed By: #### G BSPC #### [address] Antibody Identificationon Antibody Identification Antibody Identification: POS, ANTI D FROM RHOGAM [facility] Comment on above: Performed By: #### T SGL, ABID #### [facility] Fibrinogenon 06-20-2022 Fibrinogen 286 mg/dL Normal 200-400 [facility] Comment on above: Performed By: #### F IBGN, PT/AP #### [address] Fibrinogen 286 mg/dL 200 - 400 mg/dL [facility] No Panel Informationon 06-20 Test Performed by [address] LAB [facility] PROTIME/INR & PTTon 06-20-20 22 aPTT Coag (Bld) [Time] 26.6 s 20 - 30.5 s [facility] Comment on above: NOTE: The therapeuti c time for Heparin anticoagulation, based on Xa activity inhibition, is an APTT of 46-80 seconds. INR Coag (Bld) [Relative time] 0.9 {INR} [facility] Comment on above: Recommended Anticoag ulant Therapy: [...] [Time] 9.9 s 9 - 12 s [facility] Comment on above: . Protime AND APTTon aPTT Coag (Bld) [Time] 26.6 s Normal 20.0-30.5 [facility] Comment on above: Result Comment: NOTE : The therapeutic time for Heparin anticoagulation, based on Xa activity inhibition, is an APTT of 46-80 seconds. Performed By: #### F IBGN, PT/AP #### [facility] [address] [place] [address] INR 0.9 Normal 0.9-1.1 [facility] Comment on above: Result Comment: Tol[place] [...] Performed By: #### F IBGN, PT/AP #### [facility] [address] [place] [address] PT Coag (PPP) [Time] 9.9 s Normal 9.0-12.0 [facility] Comment on above: Result Comment: . Performed By: #### F IBGN, PT/AP #### [facility] [address] [place] [address] ANTIBODY IDENTIFICATIONon Antibody ID POS, ANTI D FROM RHOGAM [facility] Test Performed by [address] LAB [facility] C. Trachomatis / N. Gonorrho eae, DNA Probeon 06-19-2022 C. trachomatis DNA FRANCESCO+probe Ql (Genital specimen) NOT Detected Chlamydia trachomatis Nucleic Acid NOT Detected by DNA Amplification using the Bueenoid System. Culture is the only recommended test in medical-legal cases such as suspected child abuse or molestation. [facility] N. gonorrhoeae DNA FRANCESCO+probe Ql (Unsp spec) NOT Detected Neisseria gonorrhoeae Nucleic Acid NOT Detected by DNA Amplification using the CepSubC Controlid System. Culture is the only recommended test in medical-legal cases such as suspected child abuse or molestation. [facility] Test Performed by [address] LAB [facility] CBCon 06-19-2022 Hematocrit (Bld) [Volume fraction] 31.7 % Low 35 - 47 % [facility] Hemoglobin (Bld) [Mass/Vol] 9.9 g/dL Low 11.7 - 16 g/dL [facility] Interpretation and review of laboratory results Abnormal [facility] MCH (RBC) [Entitic mass] 26.1 pg 26 - 34 pg [facility] MCHC (RBC) [Mass/Vol] 31.3 % Low 32 - 36 % [facility] MCV (RBC) [Entitic vol] 83.3 fL 79 - 98 fL [facility] Platelet distribution width (Bld) [Ratio] 13.9 % 11.5 - 14.5 % [facility] Platelet mean volume (Bld) [Entitic vol] 8.8 fL 7.4 - 12.4 fL [facility] Comment on above: MPV is a calculated measurement using platelet volume ratio. Platelets (Bld) [#/Vol] 210 10*3/uL 140 - 440 10*3/uL [facility] RBC (Bld) [#/Vol] 3.80 10*6/uL 3.8 - 5.2 10*6/uL [facility] WBC (Bld) [#/Vol] 15.1 10*3/uL High 3.6 - 10.7 10*3/uL [facility] Test Performed by [facility], [address] [place], [place] [id number] [place] [address] Chlamydia and GC PCR Panelon 06-19-2022 Chlamydia and GC PCR Panel Chlamydia trachomatis PCR --> Status: F NOT Detected Chlamydia trachomatis Nucleic Acid NOT Detected by DNA Amplification using the CepSubC Controlid System. Culture is the only recommended test [...] as suspected child abuse or molestation. Normal [facility] Comment on above: Performed By: #### C TNGP #### [address] [place] [address] [place], [place] Hemogramon 06-19-2022 Erythrocyte distribution width (RBC) [Ratio] 13.9 % Normal 11.5-14.5 [facility] Comment on above: Performed By: #### H EMOG #### [address] Hematocrit (Bld) [Volume fraction] 31.7 % Low 35.0-47.0 [facility] Comment on above: Performed By: #### H EMOG #### [address] [place] [address] [address] [place], [place] Hemoglobin (Bld) [Mass/Vol] 9.9 g/dL Low 11.7-16.0 [facility] Comment on above: Performed By: #### H EMOG #### [address] [place] [address] [place] MCH (RBC) [Entitic mass] 26.1 pg Normal 26.0-34.0 [facility] Comment on above: Performed By: #### H EMOG #### [address] [place] [address] [place] MCHC 31.3 % Low 32.0-36.0 [facility] Comment on above: Performed By: #### H EMOG #### [address] MCV (RBC) [Entitic vol] 83.3 fL Normal 79.0-98.0 [facility] Comment on above: Performed By: #### H EMOG #### [place] [address] [place], [place] Platelet mean volume (Bld) [Entitic vol] 8.8 fL Normal 7.4-12.4 [facility] Comment on above: Result Comment: MPV is a calculated measurement using platelet volume ratio. Performed By: #### H EMOG #### [address] Platelets (Bld) [#/Vol] 210 10*3/uL Normal 140-440 [facility] Comment on above: Performed By: #### H EMOG #### [address] RBC (Bld) [#/Vol] 3.80 10*6/uL Normal 3.80-5.20 [facility] Comment on above: Performed By: #### H EMOG #### [address] WBC (Bld) [#/Vol] 15.1 10*3/uL High 3.6-10.7 [facility] Comment on above: Performed By: #### H EMOG #### [address] TS GELon 06-19-2022 TS GEL ABO Group: A Rh, Gel: NEG Antibody Screen Gel: POS Normal [facility] Comment on above: Performed By: #### T SGL, ABID #### [facility] TYPE AND SCREENon 06-19-2022 [facility]BO [facility] Type Negative [facility] Test Performed by [facility], [address] [place] [place], [place] [id number] [place] [address] LAB [facility] Absolute lymphocyte counton 06-18-2022 Lymphocytes Auto (Unsp spec) [#/Vol] 0.94 10*3/uL 0.83-4.51 [facility] Work Phone: Basophil percentageon 2021 C. trachomatis DNA FRANCESCO+probe Ql (Unsp spec) Negative Negative [facility] Work Phone: Basophils/100 WBC (Bld) 0.2 % 0-1 [facility] Work Phone: Eosinophils/100 WBC (Bld) 0.0 % 0-5 [facility] Work Phone: Neutrophils (Bld) [#/Vol] 12.7 10*3/uL 2.0-7.7 [facility] Work Phone: Neutrophils/100 WBC (Bld) 91.0 % 47-70 [facility] Work Phone: WBC (Bld) [#/Vol] 14.0 10*3/uL 4.4-11.0 [facility] Work Phone: Bilirubin Test strip Ql (U)o n 06-18-2022 Bilirubin Ql (U) Negative Negative [facility] Work Phone: Blood erythrocytes count (nu mber/volume)on 06-18-2022 RBC (Bld) [#/Vol] 3.90 10*6/uL 4.2-5.4 [facility] Work Phone: Blood hemoglobin measurement (mass/volume)on 06-18-2022 Hemoglobin (Bld) [Mass/Vol] 10.7 g/dL 12.0-15.0 [facility] Work Phone: Blood lymphocytes/100 leukoc yteson 06-18-2022 Lymphocytes/100 WBC (Bld) 6.7 % 19-41 [facility] Work Phone: Blood manual differential co mment interpretation (narrative result)on 06-18-2022 Manual differential comment Jett (Bld) [Interp] SCANNED [facility] Work Phone: Blood monocytes/100 leukocyt eson 06-18-2022 Monocytes/100 WBC (Bld) 1.4 % 0-10 [facility] Work Phone: [phone] Blood platelet adequacy dete ction by light microscopyon 06-18-2022 Platelets LM Ql (Bld) ADEQUATE ADEQ [facility] Work Phone: [phone] Blood platelet mean volumeon 06-18-2022 Platelet mean volume (Bld) [Entitic vol] 11.9 fL 6.2-12.0 [facility] Work Phone: [phone] Determination of erythrocyte mean corpuscular volume (MCV)on 06-18-2022 MCV (RBC) [Entitic vol] 91.0 fL 81-99 [facility] Work Phone: [phone] Hematocrit Auto (Bld) [Volum e fraction]on 06-18-2022 Hematocrit (Bld) [Volume fraction] 35.5 % 37-47 [facility] Work Phone: [phone] Ketones Test strip Ql (U)on 06-18-2022 Ketones Ql (U) 5 mg/dl Negative [facility] Work Phone: Laboratory - Chemistry and C hemistry - challengeon 06-18-2022 Glucose Ql (U) Negative [facility] Work Phone: [phone] Laboratory - Hematology and Cell countson 06-18-2022 Erythrocyte distribution width (RBC) [Entitic vol] 45.2 fL 35.1-43.9 [facility] Work Phone: [phone] Erythrocyte distribution width (RBC) [Ratio] 13.6 % 11.6-14.6 [facility] Work Phone: [phone] Immature granulocytes/100 WBC (Bld) 0.700 % 0.0-0.9 [facility] Work Phone: [phone] Comment on above: IG% - Immature Granu locytes (promyelocytes, myelocytes and metamyelocytes) > 1% indicates that a LEFT SHIFT is Present. MCH (RBC) [Entitic mass] 27.4 pg 27.0-32.0 [facility] Work Phone: Nucleated RBC/100 WBC (Bld) [Ratio] 0 % 0-5 [facility] Work Phone: Laboratory - Urinalysison Protein Ql (U) Negative [facility] Work Phone: MCHC Auto (RBC) [Mass/Vol]on 06-18-2022 MCHC (RBC) [Mass/Vol] 30.1 g/dL 32-36 [facility] Work Phone: Neisseria gonorrhoeae detect ion by PCRon 06-18-2022 N. gonorrhoeae DNA FRANCESCO+probe Ql (Cervical mucus) Negative Negative [facility] Work Phone: Nitrite Test strip Ql (U)on 06-18-2022 Nitrite Ql (U) Negative Negative [facility] Work Phone: No Panel Informationon 06-18 Specimen Comment (Misc) Not Reportable [facility] Work Phone: Platelets bldon 06-18-2022 Platelets (Bld) [#/Vol] 214 10*3/uL 150-450 [facility] Work Phone: Protein Test strip Ql (U)on 06-18-2022 Protein Ql (U) 15 mg/dl Negative [facility] Work Phone: Thin prep Papanicolaou smear with manual screeningon 06-18-2022 Thin prep Papanicolaou smear with manual screening Negative Negative [facility] Work Phone: Urine blood detectionon 06-03 RBC Ql (U) Negative Negative [facility] Work Phone: Urine clarityon 06-18-2022 Clarity (U) Clear Clear [facility] Work Phone: Urine color determinationon 06-18-2022 Color (U) Yellow Yellow [facility] Work Phone: Urine glucose detectionon Glucose Ql (U) Normal mg/dl Normal [facility] Work Phone: Urine leukocyte esterase det ection by dipstickon 06-18-2022 Leukocyte esterase Test strip Ql (U) Negative Negative [facility] Work Phone: Urine pHon 06-18-2022 pH (U) 6.5 [pH] 5.0 - 8.0 [facility] Work Phone: Urine specific gravity measu rementon 06-18-2022 Specific gravity (U) [Rel density] 1.020 1.002-1.030 [facility] Work Phone: Urobilinogen Auto test strip Ql (U)on 06-18-2022 Urobilinogen Ql (U) Normal mg/dl Normal [facility] Work Phone: Progress Noteon 06-01-2022 [employer] Authentication Interface Message Text [facility] MATERNAL MEDICINE - at [place] DR. ALVAREZ OFFICE VISIT NOTE DOS: 06/01/2022 06/01/2022 Chief Complaint She presents for review of progress in thus far and for comprehensive review of her maternal -obstetric- risks in this . The reasons for the visit are as highlighted in the concluding summary communication to oil tester which is my problem-based office review. History [...] mg daily that was started by her oil tester and she is doing well. We discussed [...] and subsequent 3-hour OGTT T values are [phone] all of which are within normal limits [...] Considerations wi (more content not included)... Normal [facility] Quantitative serum or plasma 3 hour gestational glucose tolerance panelon 05-27-2022 Glucose tolerance 3 hours gestational panel See comment [facility] Work Phone: Comment on above: FASTING [...] Auto (Unsp spec) [#/Vol] 1.34 10*3/uL 0.83-4.51 [facility] Work Phone: Basophil percentageon 2021 Basophils/100 WBC (Bld) 0.4 % 0-1 [facility] Work Phone: Eosinophils/100 WBC (Bld) 0.6 % 0-5 [facility] Work Phone: Neutrophils (Bld) [#/Vol] 6.6 10*3/uL 2.0-7.7 [facility] Work Phone: Neutrophils/100 WBC (Bld) 77.8 % 47-70 [facility] Work Phone: WBC (Bld) [#/Vol] 8.5 10*3/uL 4.4-11.0 [facility] Work Phone: Blood erythrocytes count (nu mber/volume)on 05-21-2022 RBC (Bld) [#/Vol] 3.91 10*6/uL 4.2-5.4 [facility] Work Phone: Blood hemoglobin measurement (mass/volume)on 05-21-2022 Hemoglobin (Bld) [Mass/Vol] 11.0 g/dL 12.0-15.0 [facility] Work Phone: Blood lymphocytes/100 leukoc yteson 05-21-2022 Lymphocytes/100 WBC (Bld) 15.8 % 19-41 [facility] Work Phone: Blood monocytes/100 leukocyt eson 05-21-2022 Monocytes/100 WBC (Bld) 4.9 % 0-10 [facility] Work Phone: Blood platelet mean volumeon 05-21-2022 Platelet mean volume (Bld) [Entitic vol] 10.3 fL 6.2-12.0 [facility] Work Phone: Determination of erythrocyte mean corpuscular volume (MCV)on 05-21-2022 MCV (RBC) [Entitic vol] 87.2 fL 81-99 [facility] Work Phone: Gestational diabetes screen 1-hour screen with 50g oral glucose loadon 05-21-2022 Glucose 1 Hr post 50 g glucose PO [Mass/Vol] 151 mg/dL 70-140 [facility] Work Phone: Hematocrit Auto (Bld) [Volum e fraction]on 05-21-2022 Hematocrit (Bld) [Volume fraction] 34.1 % 37-47 [facility] Work Phone: Laboratory - Chemistry and C hemistry - challengeon 05-21-2022 Glucose Ql (U) Negative [facility] Work Phone: Laboratory - Hematology and Cell countson 05-21-2022 Erythrocyte distribution width (RBC) [Entitic vol] 41.6 fL 35.1-43.9 [facility] Work Phone: [phone] Erythrocyte distribution width (RBC) [Ratio] 13.3 % 11.6-14.6 [facility] Work Phone: [phone] Immature granulocytes/100 WBC (Bld) 0.500 % 0.0-0.9 [facility] Work Phone: [phone] Comment on above: IG% - Immature Granu locytes (promyelocytes, myelocytes and metamyelocytes) > 1% indicates that a LEFT SHIFT is Present. MCH (RBC) [Entitic mass] 28.1 pg 27.0-32.0 [facility] Work Phone: [phone] Nucleated RBC/100 WBC (Bld) [Ratio] 0 % 0-5 [facility] Work Phone: [phone] Laboratory - Urinalysison Protein Ql (U) Trace [facility] Work Phone: [phone] MCHC Auto (RBC) [Mass/Vol]on 05-21-2022 MCHC (RBC) [Mass/Vol] 32.3 g/dL 32-36 [facility] Work Phone: [phone] Platelets bldon 05-21-2022 Platelets (Bld) [#/Vol] 222 10*3/uL 150-450 [facility] Work Phone: Laboratory - Chemistry and C hemistry - challengeon 05-07-2022 Glucose Ql (U) Negative [facility] Work Phone: Laboratory - Urinalysison Protein Ql (U) Negative [facility] Work Phone: Laboratory - Chemistry and C hemistry - challengeon 04-09-2022 Glucose Ql (U) Negative [facility] Work Phone: Laboratory - Urinalysison Protein Ql (U) Negative [facility] Work Phone: Laboratory - Chemistry and C hemistry - challengeon 03-11-2022 Glucose Ql (U) Negative [facility] Work Phone: Laboratory - Urinalysison Protein Ql (U) Negative [facility] Work Phone: Absolute lymphocyte counton 02-12-2022 Lymphocytes Auto (Unsp spec) [#/Vol] 1.88 10*3/uL 0.83-4.51 [facility] Work Phone: Basophil percentageon 2021 Basophils/100 WBC (Bld) 0.3 % 0-1 [facility] Work Phone: Eosinophils/100 WBC (Bld) 2.3 % 0-5 [facility] Work Phone: Neutrophils (Bld) [#/Vol] 9.1 10*3/uL 2.0-7.7 [facility] Work Phone: Neutrophils/100 WBC (Bld) 76.0 % 47-70 [facility] Work Phone: WBC (Bld) [#/Vol] 11.9 10*3/uL 4.4-11.0 [facility] Work Phone: Blood erythrocytes count (nu mber/volume)on 02-12-2022 RBC (Bld) [#/Vol] 4.22 10*6/uL 4.2-5.4 [facility] Work Phone: Blood hemoglobin measurement (mass/volume)on 02-12-2022 Hemoglobin (Bld) [Mass/Vol] 12.5 g/dL 12.0-15.0 [facility] Work Phone: Blood lymphocytes/100 leukoc yteson 02-12-2022 Lymphocytes/100 WBC (Bld) 15.7 % 19-41 [facility] Work Phone: Blood monocytes/100 leukocyt eson 02-12-2022 Monocytes/100 WBC (Bld) 5.2 % 0-10 [facility] Work Phone: [phone] Blood platelet mean volumeon 02-12-2022 Platelet mean volume (Bld) [Entitic vol] 9.9 fL 6.2-12.0 [facility] Work Phone: [phone] Determination of erythrocyte mean corpuscular volume (MCV)on 02-12-2022 MCV (RBC) [Entitic vol] 91.2 fL 81-99 [facility] Work Phone: [phone] Hematocrit Auto (Bld) [Volum e fraction]on 02-12-2022 Hematocrit (Bld) [Volume fraction] 38.5 % 37-47 [facility] Work Phone: Laboratory - Hematology and Cell countson 02-12-2022 Erythrocyte distribution width (RBC) [Entitic vol] 43.9 fL 35.1-43.9 [facility] Work Phone: [phone] Erythrocyte distribution width (RBC) [Ratio] 13.1 % 11.6-14.6 [facility] Work Phone: [phone] Immature granulocytes/100 WBC (Bld) 0.500 % 0.0-0.9 [facility] Work Phone: Comment on above: IG% - Immature Granu locytes (promyelocytes, myelocytes and metamyelocytes) > 1% indicates that a LEFT SHIFT is Present. MCH (RBC) [Entitic mass] 29.6 pg 27.0-32.0 [facility] Work Phone: Nucleated RBC/100 WBC (Bld) [Ratio] 0 % 0-5 [facility] Work Phone: [phone] MCHC Auto (RBC) [Mass/Vol]on 02-12-2022 MCHC (RBC) [Mass/Vol] 32.5 g/dL 32-36 [facility] Work Phone: No Panel Informationon 02-12 Thyroid Stimulating Hormone (TSH) 0.66 uIU/mL 0.358-3.74 [facility] Work Phone: Platelets bldon 02-12-2022 Platelets (Bld) [#/Vol] 221 10*3/uL 150-450 [facility] Work Phone: Whole blood hemoglobin A1c/t otal hemoglobin ratio (mass fraction)on 02-12-2022 HbA1c (Bld) [Mass fraction] 4.7 % 3.8-5.6 [facility] Work Phone: Comment on above: Normal < 5.7 % Predi abetic 5.7 - 6.4 % Diabetic >or= 6.5 % Please note range changes. Absolute lymphocyte counton 02-11-2022 Lymphocytes Auto (Unsp spec) [#/Vol] 1.72 10*3/uL 0.83-4.51 [facility] Work Phone: Basophil percentageon 2021 Basophil percentage 0-5 SEEN /hpf 0-5 [facility] Work Phone: Basophils/100 WBC (Bld) 0.3 % 0-1 [facility] Work Phone: Bilirubin [Mass/Vol] 0.30 mg/dL 0.20-1.00 [facility] Work Phone: Comment on above: For patients on eltr ombopag therapy, use of Dimension [place] TBIL is not recommended. Chloride [Moles/Vol] 106 mmol/L 98-107 [facility] Work Phone: Eosinophils/100 WBC (Bld) 1.5 % 0-5 [facility] Work Phone: Glucose [Mass/Vol] 104 mg/dL 74-106 [facility] Work Phone: Comment on above: Fasting Glucose resu lt from 100 to 125 mg/dL suggests IMPAIRED HOMEOSTASIS per A.D.A. criteria. Lactate [Moles/Vol] 0.7 mmol/L 0.4-2.0 [facility] Work Phone: Neutrophils (Bld) [#/Vol] 12.0 10*3/uL 2.0-7.7 [facility] Work Phone: Neutrophils/100 WBC (Bld) 81.5 % 47-70 [facility] Work Phone: Potassium [Moles/Vol] 3.6 mmol/L 3.5-5.1 [facility]: Protein [Mass/Vol] 6.9 g/dL 6.4-8.2 [facility] Work Phone: Sodium [Moles/Vol] 135 mmol/L 136-145 [facility] Work Phone: WBC (Bld) [#/Vol] 14.8 10*3/uL 4.4-11.0 [facility] Work Phone: Bilirubin Test strip Ql (U)o n 02-11-2022 Bilirubin Ql (U) Negative Negative [facility] Work Phone: Blood erythrocytes count (nu mber/volume)on 02-11-2022 RBC (Bld) [#/Vol] 3.97 10*6/uL 4.2-5.4 [facility] Work Phone: Blood hemoglobin measurement (mass/volume)on 02-11-2022 Hemoglobin (Bld) [Mass/Vol] 12.0 g/dL 12.0-15.0 [facility] Work Phone: Blood lymphocytes/100 leukoc yteson 02-11-2022 Lymphocytes/100 WBC (Bld) 11.6 % 19-41 [facility] Work Phone: Blood monocytes/100 leukocyt eson 02-11-2022 Monocytes/100 WBC (Bld) 4.7 % 0-10 [facility] Work Phone: Blood platelet mean volumeon 02-11-2022 Platelet mean volume (Bld) [Entitic vol] 10.2 fL 6.2-12.0 [facility] Work Phone: Determination of erythrocyte mean corpuscular volume (MCV)on 02-11-2022 MCV (RBC) [Entitic vol] 89.9 fL 81-99 [facility] Work Phone: [phone] Hematocrit Auto (Bld) [Volum e fraction]on 02-11-2022 Hematocrit (Bld) [Volume fraction] 35.7 % 37-47 [facility] Work Phone: [phone] Ketones Test strip Ql (U)on 02-11-2022 Ketones Ql (U) 15 mg/dl Negative [facility] Work Phone: [phone] Laboratory - Chemistry and C hemistry - challengeon 02-11-2022 ALP [Catalytic activity/Vol] 64 U/L 45-117 [facility] Work Phone: [phone] ALT [Catalytic activity/Vol] 18 U/L 13-56 [facility] Work Phone: [phone] CO2 [Moles/Vol] 22.0 mmol/L 21.0-32.0 [facility] Work Phone: [phone] Globulin (S) [Mass/Vol] 4.2 g/dL 2.2-4.2 [facility] Work Phone: [phone] Urea nitrogen/Creatinine [Mass ratio] 16.8 mg/mg 10-20 [facility] Work Phone: [phone] Laboratory - Coagulationon 0 02-11-2022 aPTT Coag (Bld) [Time] 32.1 s 24.1-36.2 [facility] Work Phone: [phone] Laboratory - Hematology and Cell countson 02-11-2022 Erythrocyte distribution width (RBC) [Entitic vol] 43.2 fL 35.1-43.9 [facility] Work Phone: [phone] Erythrocyte distribution width (RBC) [Ratio] 13.1 % 11.6-14.6 [facility] Work Phone: [phone] Immature granulocytes/100 WBC (Bld) 0.400 % 0.0-0.9 [facility] Work Phone: Comment on above: IG% - Immature Granu locytes (promyelocytes, myelocytes and metamyelocytes) > 1% indicates that a LEFT SHIFT is Present. MCH (RBC) [Entitic mass] 30.2 pg 27.0-32.0 [facility] Work Phone: Nucleated RBC/100 WBC (Bld) [Ratio] 0 % 0-5 [facility] Work Phone: MCHC Auto (RBC) [Mass/Vol]on 02-11-2022 MCHC (RBC) [Mass/Vol] 33.6 g/dL 32-36 [facility] Work Phone: Mucus LM Ql (Urine sed)on Mucus Ql (Urine sed) 0 SEEN /hpf [facility] Work Phone: Nitrite Test strip Ql (U)on 02-11-2022 Nitrite Ql (U) Negative Negative [facility] Work Phone: No Panel Informationon 02-11 Estimated Creatinine Clearance Calc 136.61 ml/min [facility] Work Phone: [phone] Estimated GFR (MDRD) Amer 192 mL/min >60 [facility] Work Phone: Comment on above: GFR Calc Estimated GFR (MDRD) Non-Af Amer 159 mL/min >60 [facility] Work Phone: Comment on above: Non- GFR Calc Platelets bldon 02-11-2022 Platelets (Bld) [#/Vol] 209 10*3/uL 150-450 [facility] Work Phone: Protein Test strip Ql (U)on 02-11-2022 Protein Ql (U) Negative Negative [facility] Work Phone: [phone] Serum or plasma albumin jazmin urement (mass/volume)on 02-11-2022 Albumin [Mass/Vol] 2.7 g/dL 3.2-5.0 [facility] Work Phone: [phone] Serum or plasma albumin/glob ulin mass ratioon 02-11-2022 Albumin/Globulin [Mass ratio] 0.6 {ratio} 0.9-2.4 [facility] Work Phone: Serum or plasma calcium jazmin urement (mass/volume)on 02-11-2022 Calcium [Mass/Vol] 9.0 mg/dL 8.5-10.1 [facility] Work Phone: Serum or plasma creatinine m easurement (mass/volume)on 02-11-2022 Creatinine [Mass/Vol] 0.48 mg/dL 0.55-1.02 [facility] Work Phone: Comment on above: The validity of the calculated GFR & GFRAA in patients over 70 years has not been determined. Clinical correlation is essential. Serum or plasma urea nitroge n measurement (mass/volume)on 02-11-2022 Urea nitrogen [Mass/Vol] 8 mg/dL 7-18 [facility] Work Phone: Squamous epithelial cells de tection in urine sediment by light microscopyon 02-11-2022 Epithelial cells.squamous LM Ql (Urine sed) 5-10 SEEN /hpf 5-10 [facility] Work Phone: Thin prep Papanicolaou smear with manual screeningon 02-11-2022 Thin prep Papanicolaou smear with manual screening 18 U/L 15-37 [facility] Work Phone: Thin prep Papanicolaou smear with manual screening 7 5-15 [facility] Work Phone: Urine blood detectionon 01-31 RBC Ql (U) Negative Negative [facility] Work Phone: RBC Ql (U) 0 SEEN /hpf 0-5 [facility] Work Phone: Urine clarityon 02-11-2022 Clarity (U) Sl. Cloudy Clear [facility] Work Phone: Urine color determinationon 02-11-2022 Color (U) Yellow Yellow [facility] Work Phone: Urine glucose detectionon Glucose Ql (U) Normal mg/dl Normal [facility] Work Phone: Urine leukocyte esterase det ection by dipstickon 02-11-2022 Leukocyte esterase Test strip Ql (U) 25 /ul Negative [facility] Work Phone: Urine pHon 02-11-2022 pH (U) 7.0 [pH] 5.0 - 8.0 [facility] Work Phone: Urine sediment bacteria coun t by microscopy (number/high power field)on 02-11-2022 Bacteria LM.HPF (Urine sed) [#/Area] 1 /[HPF] None Seen [facility] Work Phone: Urine specific gravity measu rementon 02-11-2022 Specific gravity (U) [Rel density] 1.010 1.002-1.030 [facility] Work Phone: Urobilinogen Auto test strip Ql (U)on 02-11-2022 Urobilinogen Ql (U) Normal mg/dl Normal [facility] Work Phone: Laboratory - Chemistry and C hemistry - challengeon 02-10-2022 Glucose Ql (U) Negative [facility] Work Phone: Laboratory - Urinalysison Protein Ql (U) Negative [facility] Work Phone: Laboratory - Chemistry and C hemistry - challengeon 01-27-2022 Glucose Ql (U) Negative [facility] Work Phone: Laboratory - Urinalysison Protein Ql (U) Negative [facility] Work Phone: Laboratory - Chemistry and C hemistry - challengeon 01-14-2022 Glucose Ql (U) Negative [facility] Work Phone: Laboratory - Urinalysison Protein Ql (U) Negative [facility] Work Phone: No Panel Informationon 01-14 Miscellaneous Test Comment MAILED SPECIMEN [facility] Work Phone: Absolute lymphocyte counton 01-07-2022 Lymphocytes Auto (Unsp spec) [#/Vol] 2.23 10*3/uL 0.83-4.51 [facility] Work Phone: Basophil percentageon 2021 Basophil percentage 0-5 SEEN /hpf [facility] Work Phone: Basophils/100 WBC (Bld) 0.3 % 0-1 [facility] Work Phone: Chloride [Moles/Vol] 109 mmol/L 98-107 [facility]: Eosinophils/100 WBC (Bld) 1.0 % 0-5 [facility] Work [phone] Glucose [Mass/Vol] 86 mg/dL 74-106 [facility] Work Phone: Neutrophils (Bld) [#/Vol] 8.7 10*3/uL 2.0-7.7 [facility] Work Phone: Neutrophils/100 WBC (Bld) 73.4 % 47-70 [facility] Work Phone: Potassium [Moles/Vol] 4.1 mmol/L 3.5-5.1 [facility] Work Phone: Comment on above: Slight Hemolysis, Re sult may be falsely increased. Sodium [Moles/Vol] 135 mmol/L 136-145 [facility] Work Phone: WBC (Bld) [#/Vol] 11.9 10*3/uL 4.4-11.0 [facility] Work Phone: Bilirubin Test strip Ql (U)o n 01-07-2022 Bilirubin Ql (U) Negative Negative [facility] Work Phone: Blood erythrocytes count (nu mber/volume)on 01-07-2022 RBC (Bld) [#/Vol] 4.22 10*6/uL 4.2-5.4 [facility] Work Phone: Blood hemoglobin measurement (mass/volume)on 01-07-2022 Hemoglobin (Bld) [Mass/Vol] 12.8 g/dL 12.0-15.0 [facility] Work Phone: Blood lymphocytes/100 leukoc yteson 01-07-2022 Lymphocytes/100 WBC (Bld) 18.8 % 19-41 [facility] Work Phone: Blood monocytes/100 leukocyt eson 01-07-2022 Monocytes/100 WBC (Bld) 6.1 % 0-10 [facility] Work Phone: Blood platelet mean volumeon 01-07-2022 Platelet mean volume (Bld) [Entitic vol] 10.1 fL 6.2-12.0 [facility] Work Phone: Determination of erythrocyte mean corpuscular volume (MCV)on 01-07-2022 MCV (RBC) [Entitic vol] 88.9 fL 81-99 [facility] Work Phone: [phone] Hematocrit Auto (Bld) [Volum e fraction]on 01-07-2022 Hematocrit (Bld) [Volume fraction] 37.5 % 37-47 [facility] Work Phone: Ketones Test strip Ql (U)on 01-07-2022 Ketones Ql (U) Negative Negative [facility] Work Phone: Laboratory - Chemistry and C hemistry - challengeon 01-07-2022 CO2 [Moles/Vol] 21.0 mmol/L 21.0-32.0 [facility] Work Phone: Urea nitrogen/Creatinine [Mass ratio] 19.6 mg/mg 10-20 [facility] Work Phone: Laboratory - Hematology and Cell countson 01-07-2022 Erythrocyte distribution width (RBC) [Entitic vol] 42.8 fL 35.1-43.9 [facility] Work Phone: [phone] Erythrocyte distribution width (RBC) [Ratio] 13.1 % 11.6-14.6 [facility] Work Phone: [phone] Immature granulocytes/100 WBC (Bld) 0.400 % 0.0-0.9 [facility] Work Phone: Comment on above: IG% - Immature Granu locytes (promyelocytes, myelocytes and metamyelocytes) > 1% indicates that a LEFT SHIFT is Present. MCH (RBC) [Entitic mass] 30.3 pg 27.0-32.0 [facility] Work Phone: Nucleated RBC/100 WBC (Bld) [Ratio] 0 % 0-5 [facility] Work Phone: [phone] MCHC Auto (RBC) [Mass/Vol]on 01-07-2022 MCHC (RBC) [Mass/Vol] 34.1 g/dL 32-36 [facility] Work Phone: [phone] Mucus LM Ql (Urine sed)on Mucus Ql (Urine sed) 0 SEEN /hpf [facility] Work Phone: [phone] Nitrite Test strip Ql (U)on 01-07-2022 Nitrite Ql (U) Negative Negative [facility] Work Phone: No Panel Informationon 01-07 Estimated Creatinine Clearance Calc 128.57 ml/min [facility] Work Phone: [phone] Estimated GFR (MDRD) Amer 178 mL/min >60 [facility] Work Phone: Comment on above: GFR Calc Estimated GFR (MDRD) Non-Af Amer 147 mL/min >60 [facility] Work Phone: Comment on above: Non- GFR Calc Platelets bldon 01-07-2022 Platelets (Bld) [#/Vol] 263 10*3/uL 150-450 [facility] Work Phone: [phone] Protein Test strip Ql (U)on 01-07-2022 Protein Ql (U) Negative Negative [facility] Work Phone: [phone] Serum or plasma calcium jazmin urement (mass/volume)on 01-07-2022 Calcium [Mass/Vol] 9.2 mg/dL 8.5-10.1 [facility] Work Phone: [phone] Serum or plasma creatinine m easurement (mass/volume)on 01-07-2022 Creatinine [Mass/Vol] 0.51 mg/dL 0.55-1.02 [facility] Work Phone: Comment on above: The validity of the calculated GFR & GFRAA in patients over 70 years has not been determined. Clinical correlation is essential. Serum or plasma urea nitroge n measurement (mass/volume)on 01-07-2022 Urea nitrogen [Mass/Vol] 10 mg/dL 7-18 [facility] Work Phone: Squamous epithelial cells de tection in urine sediment by light microscopyon 01-07-2022 Epithelial cells.squamous LM Ql (Urine sed) 5-10 SEEN /hpf [facility] Work Phone: Thin prep Papanicolaou smear with manual screeningon 01-07-2022 Thin prep Papanicolaou smear with manual screening 5 5-15 [facility] Work Phone: Urine blood detectionon 04-0 RBC Ql (U) Negative Negative [facility] Work Phone: RBC Ql (U) 0 SEEN /hpf [facility] Work Phone: Urine clarityon 01-07-2022 Clarity (U) Sl. Cloudy Clear [facility] Work Phone: Urine color determinationon 01-07-2022 Color (U) Yellow Yellow [facility] Work Phone: Urine glucose detectionon Glucose Ql (U) Normal mg/dl Normal [facility] Work Phone: Urine leukocyte esterase det ection by dipstickon 01-07-2022 Leukocyte esterase Test strip Ql (U) Negative Negative [facility] Work Phone: Urine pHon 01-07-2022 pH (U) 8.0 [pH] [facility] Work Phone: Urine sediment bacteria coun t by microscopy (number/high power field)on 01-07-2022 Bacteria LM.HPF (Urine sed) [#/Area] 1 /[HPF] None Seen [facility] Work Phone: Urine specific gravity measu rementon 01-07-2022 Specific gravity (U) [Rel density] 1.010 [facility] Work Phone: Urobilinogen Auto test strip Ql (U)on 01-07-2022 Urobilinogen Ql (U) Normal mg/dl Normal [facility] Work [phone] Absolute lymphocyte counton 01-04-2022 Lymphocytes Auto (Unsp spec) [#/Vol] 1.44 10*3/uL 0.83-4.51 [facility] Work Phone: Basophil percentageon 2021 Basophil percentage 2.1 mg/dL 2.5-4.9 [facility] Work Phone: Basophils/100 WBC (Bld) 0.3 % 0-1 [facility] Work Phone: Bilirubin [Mass/Vol] 0.20 mg/dL 0.20-1.00 [facility] Work Phone: Comment on above: For patients on eltr ombopag therapy, use of Dimension [place] TBIL is not recommended. Chloride [Moles/Vol] 106 mmol/L 98-107 [facility] Work Phone: Eosinophils/100 WBC (Bld) 0.6 % 0-5 [facility] Work Phone: Glucose [Mass/Vol] 185 mg/dL 74-106 [facility] Work Phone: Comment on above: Fasting Glucose resu lt greater than or equal to 126 mg/dL suggests DIABETES MELLITUS per A.D.A. criteria. Neutrophils (Bld) [#/Vol] 8.5 10*3/uL 2.0-7.7 [facility] Work Phone: Neutrophils/100 WBC (Bld) 81.1 % 47-70 [facility] Work Phone: [phone] Potassium [Moles/Vol] 3.3 mmol/L 3.5-5.1 [facility] Work Phone: Protein [Mass/Vol] 6.5 g/dL 6.4-8.2 [facility] Work Phone: Sodium [Moles/Vol] 135 mmol/L 136-145 [facility] Work Phone: [phone] WBC (Bld) [#/Vol] 10.5 10*3/uL 4.4-11.0 [facility] Work Phone: Blood erythrocytes count (nu mber/volume)on 01-04-2022 RBC (Bld) [#/Vol] 3.79 10*6/uL 4.2-5.4 [facility] Work Phone: Blood hemoglobin measurement (mass/volume)on 01-04-2022 Hemoglobin (Bld) [Mass/Vol] 11.3 g/dL 12.0-15.0 [facility] Work Phone: [phone] Blood lymphocytes/100 leukoc yteson 01-04-2022 Lymphocytes/100 WBC (Bld) 13.7 % 19-41 [facility] Work Phone: [phone] Blood monocytes/100 leukocyt eson 01-04-2022 Monocytes/100 WBC (Bld) 3.9 % 0-10 [facility] Work Phone: [phone] Blood platelet mean volumeon 01-04-2022 Platelet mean volume (Bld) [Entitic vol] 9.9 fL 6.2-12.0 [facility] Work Phone: Chlamydia trachomatis rRNA d etection by probe and target amplification methodon 01-04-2022 C. trachomatis rRNA FRANCESCO+probe Ql (Unsp spec) Negative Negative [facility] Work Phone: [phone] Culture, urineon 01-04-2022 Bacteria identified Cx Nom (U) Positive [facility] Work Phone: [phone] Determination of erythrocyte mean corpuscular volume (MCV)on 01-04-2022 MCV (RBC) [Entitic vol] 90.0 fL 81-99 [facility] Work Phone: HIV 1 and HIV-2 antibody ass ay with HIV-1 p24 antigen detectionon 01-04-2022 HIV 1+2 Ab+HIV1 p24 Ag IA Ql Non-Reactive Nonreactive [facility] Work Phone: Hematocrit Auto (Bld) [Volum e fraction]on 01-04-2022 Hematocrit (Bld) [Volume fraction] 34.1 % 37-47 [facility] Work Phone: Laboratory - Chemistry and C hemistry - challengeon 01-04-2022 ALP [Catalytic activity/Vol] 51 U/L 45-117 [facility] Work Phone: [phone] ALT [Catalytic activity/Vol] 44 U/L 13-56 [facility] Work Phone: [phone] CO2 [Moles/Vol] 22.0 mmol/L 21.0-32.0 [facility] Work Phone: [phone] Globulin (S) [Mass/Vol] 3.7 g/dL 2.2-4.2 [facility] Work Phone: [phone] Magnesium [Mass/Vol] 1.8 mg/dL 1.6-2.6 [facility] Work Phone: [phone] Urea nitrogen/Creatinine [Mass ratio] 19.4 mg/mg 10-20 [facility] Work Phone: [phone] Laboratory - Drug toxicology on 01-04-2022 Amphetamines Ql (U) Negative [facility] Work Phone: [phone] Benzodiazepines Ql (U) Negative [facility] Work Phone: [phone] Cannabinoids Screen Ql (U) Positive [facility] Work Phone: [phone] Cocaine Ql (U) Negative [facility] Work Phone: [phone] Opiates Ql (U) Negative [facility] Work Phone: [phone] Laboratory - Hematology and Cell countson 01-04-2022 Erythrocyte distribution width (RBC) [Entitic vol] 44.2 fL 35.1-43.9 [facility] Work Phone: [phone] Erythrocyte distribution width (RBC) [Ratio] 13.3 % 11.6-14.6 [facility] Work Phone: [phone] Immature granulocytes/100 WBC (Bld) 0.400 % 0.0-0.9 [facility] Work Phone: [phone] Comment on above: IG% - Immature Granu locytes (promyelocytes, myelocytes and metamyelocytes) > 1% indicates that a LEFT SHIFT is Present. MCH (RBC) [Entitic mass] 29.8 pg 27.0-32.0 [facility] Work Phone: [phone] Nucleated RBC/100 WBC (Bld) [Ratio] 0 % 0-5 [facility] Work Phone: [phone] Laboratory - Microbiology an d Antimicrobial susceptibilityon 01-04-2022 N. gonorrhoeae DNA FRANCESCO+probe Ql (Unsp spec) Negative Negative [facility] Work Phone: [phone] Comment on above: Performed at: =[address] [id number] Director: Jaylin Sandoval MD, Phone: [phone] MCHC Auto (RBC) [Mass/Vol]on 01-04-2022 MCHC (RBC) [Mass/Vol] 33.1 g/dL 32-36 [facility] Work Phone: No Panel Informationon 01-04 MDMA (Ecstasy) Screen Negative [facility] Work Phone: [phone] Urine Barbiturates Screen Negative [facility] Work Phone: [phone] Urine Drug Screen Comment [facility] Work Phone: [phone] Comment on above: CONFIRMATORY TESTING FOR ALL [...] USE TESTMNEMONIC: [facility] Urine Methadone Screen Negative [facility] Work Phone: [phone] Estimated Creatinine Clearance Calc 115.04 ml/min [facility] Work Phone: [phone] Estimated GFR (MDRD) Amer 157 mL/min >60 [facility] Work Phone: [phone] Comment on above: GFR Calc Estimated GFR (MDRD) Non-Af Amer 129 mL/min >60 [facility] Work Phone: [phone] Comment on above: Non- GFR Calc Hepatitis B Surface Antigen Non-Reactive Nonreactive [facility] Work Phone: [phone] Hepatitis C Antibody Non-Reactive Nonreactive [facility] Work Phone: [phone] Comment on above: Non Reactive: < 0.8 Equivocal: >/= 0.8 to < 1.0 Reactive: >/= 1.0The CDC recommends that a reactive/equivocal HCV antibody result be followed up by the HCV Nucleic Acid Amplificationtest (029003) Rubella IgG Antibody Reactive Nonreactive [facility] Work Phone: [phone] Comment on above: Antibody Results Int erpretation of Immune Status Non Reactive Presumed Non-Immune Equivocal Equivocal Reactive Presumed Immune Platelets bldon 01-04-2022 Platelets (Bld) [#/Vol] 216 10*3/uL 150-450 [facility] Work Phone: [phone] Treponema species anti body detectionon 01-04-2022 Treponema sp Ab Ql (S) Non-Reactive [facility] Work Phone: [phone] Serum or plasma albumin jazmin urement (mass/volume)on 01-04-2022 Albumin [Mass/Vol] 2.8 g/dL 3.2-5.0 [facility] Work Phone: [phone] Serum or plasma albumin/glob ulin mass ratioon 01-04-2022 Albumin/Globulin [Mass ratio] 0.8 {ratio} 0.9-2.4 [facility] Work Phone: [phone] Serum or plasma calcium jazmin urement (mass/volume)on 01-04-2022 Calcium [Mass/Vol] 8.8 mg/dL 8.5-10.1 [facility] Work Phone: [phone] Serum or plasma creatinine m easurement (mass/volume)on 01-04-2022 Creatinine [Mass/Vol] 0.57 mg/dL 0.55-1.02 [facility] Work Phone: Comment on above: The validity of the calculated GFR & GFRAA in patients over 70 years has not been determined. Clinical correlation is essential. Serum or plasma urea nitroge n measurement (mass/volume)on 01-04-2022 Urea nitrogen [Mass/Vol] 11 mg/dL 7-18 [facility] Work Phone: Thin prep Papanicolaou smear with manual screeningon 01-04-2022 Thin prep Papanicolaou smear with manual screening 22 U/L 15-37 [facility] Work Phone: Thin prep Papanicolaou smear with manual screening 7 5-15 [facility] Work Phone: Urine phencyclidine (PCP) de tectionon 01-04-2022 Phencyclidine Ql (U) Negative [facility] Work Phone: LABORATORYOrdered By: Emily Uribe [...] HCG ( test) Ql 2864 mIU/mL <4 [facility] Work Phone: Comment on above: hCG levels with Gest ational AgeGestational Age hCG mIU/mL (IU/L)0.2 - 1 week 5 - 501-2 weeks 50 - 5002-3 weeks 100 - 46545-7 weeks 500 - 607421-6 weeks 1000 - 344016-0 weeks 14285 - 100,0006-8 weeks 11371 - 200,0002-3 months 29505 - 100,000 Serum or plasma choriogonado tropin detectionon 12-07-2021 HCG ( test) Ql 447 mIU/mL <4 [facility] Work Phone: Comment on above: hCG levels with Gest ational AgeGestational Age hCG mIU/mL (IU/L)0.2 - 1 week 5 - 501-2 weeks 50 - 5002-3 weeks 100 - 93825-1 weeks 500 - 854141-0 weeks 1000 - 669319-6 weeks 56348 - 100,0006-8 weeks 76612 - 200,0002-3 months 91224 - 100,000 Serum or plasma choriogonado tropin detectionon 12-05-2021 HCG ( test) Ql 200 mIU/mL <4 [facility] Work Phone: Comment on above: hCG levels with Gest ational AgeGestational Age hCG mIU/mL (IU/L)0.2 - 1 week 5 - 501-2 weeks 50 - 5002-3 weeks 100 - 80399-0 weeks 500 - 875446-0 weeks 1000 - 572673-3 weeks 49256 - 100,0006-8 weeks 86529 - 200,0002-3 months 98611 - 100,000 Absolute lymphocyte counton 10-07-2021 Lymphocytes Auto (Unsp spec) [#/Vol] 2.84 10*3/uL 0.83-4.51 [facility] Work Phone: Basophil percentageon 2021 Basophils/100 WBC (Bld) 0.4 % 0-1 [facility] Work Phone: Chloride [Moles/Vol] 109 mmol/L 98-107 [facility] Work Phone: [phone] Eosinophils/100 WBC (Bld) 1.3 % 0-5 [facility] Work Phone: Glucose [Mass/Vol] 87 mg/dL 74-106 [facility] Work Phone: Comment on above: Please note revised GLUCOSE reference range effective 2017. Neutrophils (Bld) [#/Vol] 5.5 10*3/uL 2.0-7.7 [facility] Work Phone: Neutrophils/100 WBC (Bld) 60.2 % 47-70 [facility] Work Phone: Potassium [Moles/Vol] 3.8 mmol/L 3.5-5.1 [facility] Work Phone: Sodium [Moles/Vol] 140 mmol/L 136-145 [facility] Work Phone: WBC (Bld) [#/Vol] 9.1 10*3/uL 4.4-11.0 [facility] Work Phone: Blood erythrocytes count (nu mber/volume)on 10-07-2021 RBC (Bld) [#/Vol] 4.70 10*6/uL 4.2-5.4 [facility] Work Phone: Blood hemoglobin measurement (mass/volume)on 10-07-2021 Hemoglobin (Bld) [Mass/Vol] 13.8 g/dL 12.0-15.0 [facility] Work Phone: Blood lymphocytes/100 leukoc yteson 10-07-2021 Lymphocytes/100 WBC (Bld) 31.3 % 19-41 [facility] Work Phone: [phone] Blood monocytes/100 leukocyt eson 10-07-2021 Monocytes/100 WBC (Bld) 6.5 % 0-10 [facility] Work Phone: Blood platelet mean volumeon 10-07-2021 Platelet mean volume (Bld) [Entitic vol] 10.3 fL 6.2-12.0 [facility] Work Phone: Determination of erythrocyte mean corpuscular volume (MCV)on 10-07-2021 MCV (RBC) [Entitic vol] 89.1 fL 81-99 [facility] Work Phone: Hematocrit Auto (Bld) [Volum e fraction]on 10-07-2021 Hematocrit (Bld) [Volume fraction] 41.9 % 37-47 [facility] Work Phone: Laboratory - Chemistry and C hemistry - challengeon 10-07-2021 CO2 [Moles/Vol] 24.0 mmol/L 21.0-32.0 [facility] Work Phone: Urea nitrogen/Creatinine [Mass ratio] 25.3 mg/mg 10-20 [facility] Work Phone: [phone] Laboratory - Hematology and Cell countson 10-07-2021 Erythrocyte distribution width (RBC) [Entitic vol] 43.4 fL 35.1-43.9 [facility] Work Phone: [phone] Erythrocyte distribution width (RBC) [Ratio] 13.2 % 11.6-14.6 [facility] Work Phone: [phone] Immature granulocytes/100 WBC (Bld) 0.300 % 0.0-0.9 [facility] Work Phone: Comment on above: IG% - Immature Granu locytes (promyelocytes, myelocytes and metamyelocytes) > 1% indicates that a LEFT SHIFT is Present. MCH (RBC) [Entitic mass] 29.4 pg 27.0-32.0 [facility] Work Phone: Nucleated RBC/100 WBC (Bld) [Ratio] 0 % 0-5 [facility] Work Phone: [phone] MCHC Auto (RBC) [Mass/Vol]on 10-07-2021 MCHC (RBC) [Mass/Vol] 32.9 g/dL 32-36 [facility] Work Phone: No Panel Informationon 10-07 D-Dimer Quantitative (PE/DVT) 0.38 FEU/ug/m 0.27-0.49 [facility] Work Phone: Comment on above: NORMAL D-Dimer level (<0.50) indicates no DVT or PE. Estimated Creatinine Clearance Calc 105.07 ml/min [facility] Work Phone: Estimated GFR (MDRD) Amer 138 mL/min >60 [facility] Work Phone: [phone] Comment on above: GFR Calc Estimated GFR (MDRD) Non-Af Amer 114 mL/min >60 [facility] Work Phone: [phone] Comment on above: Non- GFR Calc Troponin I High Sensitivity 4 pg/mL 3.0-54.0 [facility] Work Phone: Comment on above: Please Note: New Faviola t Units and Gender Specific Reference Ranges. For more information see Policy Stat Procedure [place] High Sensitivity Troponin (TNIH) and attachments. Platelets bldon 10-07-2021 Platelets (Bld) [#/Vol] 306 10*3/uL 150-450 [facility] Work Phone: [phone] Serum or plasma calcium jazmin urement (mass/volume)on 10-07-2021 Calcium [Mass/Vol] 9.3 mg/dL 8.5-10.1 [facility] Work Phone: Serum or plasma creatinine m easurement (mass/volume)on 10-07-2021 Creatinine [Mass/Vol] 0.63 mg/dL 0.55-1.02 [facility] Work Phone: Comment on above: The validity of the calculated GFR & GFRAA in patients over 70 years has not been determined. Clinical correlation is essential. Serum or plasma urea nitroge n measurement (mass/volume)on 10-07-2021 Urea nitrogen [Mass/Vol] 16 mg/dL 04-19 [facility] Work Phone: Thin prep Papanicolaou smear with manual screeningon 10-07-2021 Thin prep Papanicolaou smear with manual screening 02-14 [facility] Work Phone: XR Lumbar spine 3 Viewson IMPRESSION: Degenerative changes as described. Welfare Adviser: SAVITA Transcribe Date/Time: Jul 20 2021 10:04A Dictated by : YVONNE COLINDRES MD This examination was interpreted and the report reviewed and electronically signed by: YVONNE COLINDRES MD on Jul 20 2021 10:07AM [facility] DIVISION OF RADIOLOGY * * *Final Report* [...] L4 on L5. DIVISION OF RADIOLOGY Provider, [facility] Julissa Bronson [facility] - 07/20/2021 * * *Final Report* [...] L5. IMPRESSION IMPRESSION: Degenerative changes as described. Welfare Adviser: SAVITA Transcribe Date/Time: Jul 20 2021 10:04A Dictated by : YVONNE COLINDRES MD This examination was interpreted and the report reviewed and electronically signed by: YVONNE COLINDRES MD on Jul 20 2021 10:07AM EST [facility] Radiology Study observation (narrative) [facility] XR Lumbar spine 3 ViewsOrder ed By: [facility] Provider on 07-20-2021 [facility] Troponin Ion 07-11-2021 Troponin I.cardiac [Mass/Vol] 0.012 ng/mL Normal 0.000-0.034 [facility] Comment on above: Order Comment: CHEMI STRY SPECIMEN MODERATELY HEMOLYZED. INTERPRET RESULTS WITH CAUTION. Result Comment: . Performed By: #### H EMOG, TROPN, LIPA4, CMP3, QWAL2 #### [facility] [address] [place] [address] hCG Qual Pregon 07-11-2021 hCG Qual Preg Negative Normal [facility] Comment on above: Order Comment: CHEMI STRY SPECIMEN MODERATELY HEMOLYZED. INTERPRET RESULTS WITH CAUTION. Result Comment: Refe rence Range: NEGATIVE Effective 12/14/2019, the reference interval for the qualitative test has been updated. This test detects hCG at concentrations of 10 mIU/L or greater in serum. Performed By: #### H EMOG, TROPN, LIPA4, CMP3, QWAL2 #### [facility] [address] [place] [address] CBCOrdered By: Nicolás maloney on 07-10-2021 Hematocrit (Bld) [Volume fraction] 39.8 % 35.0 - 47.0 % [facility] Work Phone: Hemoglobin.gastrointes tinal spec 1 Ql (Stl) 13.1 g/dL 11.7 - 16.0 g/dL [facility] Work Phone: MCH (RBC) [Entitic mass] 29.9 pg 26.0 - 34.0 pg [facility] Work Phone: MCHC (RBC) [Mass/Vol] 33.0 % 32.0 - 36.0 % [facility] Work Phone: MCV (RBC) [Entitic vol] 90.8 fL 79.0 - 98.0 fL [facility] Work Phone: Platelet distribution width (Bld) [Ratio] 13.7 % 11.5 - 14.5 % [facility] Work Phone: Platelet mean volume (Bld) [Entitic vol] 8.6 fL 7.4 - 10.4 fL [facility] Work Phone: Platelets (Bld) [#/Vol] 220 10*3/uL 140 - 440 10*3/uL [facility] Work Phone: RBC (Bld) [#/Vol] 4.38 10*6/uL 3.80 - 5.2 0 10*6/uL [facility] Work Phone: WBC (Bld) [#/Vol] 8.2 10*3/uL 3.6 - 10.7 10*3/uL [facility] Work Phone: Comp Metabolic Panelon 07-10 ALT [Catalytic activity/Vol] 31 U/L Normal 0-34 [facility] Comment on above: Order Comment: CHEMI STRY SPECIMEN MODERATELY HEMOLYZED. INTERPRET RESULTS WITH CAUTION. Result Comment: The ALT test is performed by an updated assay method. Please note that the reference intervals have been changed and are now sex specific. Performed By: #### H EMOG, TROPN, LIPA4, CMP3, QWAL2 #### [facility] [address] [place] [address] Calcium [Mass/Vol] 9.2 mg/dL Normal 8.4-10.4 [facility] Comment on above: Order Comment: CHEMI STRY SPECIMEN MODERATELY HEMOLYZED. INTERPRET RESULTS WITH CAUTION. Performed By: #### H EMOG, TROPN, LIPA4, CMP3, QWAL2 #### [facility] [address] [place] [address] Glucose [Mass/Vol] 79 mg/dL Normal 70-100 [facility] Comment on above: Order Comment: CHEMI STRY SPECIMEN MODERATELY HEMOLYZED. INTERPRET RESULTS WITH CAUTION. Performed By: #### H EMOG, TROPN, LIPA4, CMP3, QWAL2 #### [facility] [address] [place] [address] Urea nitrogen [Mass/Vol] 13 mg/dL Normal 9-20 [facility] Comment on above: Order Comment: CHEMI STRY SPECIMEN MODERATELY HEMOLYZED. INTERPRET RESULTS WITH CAUTION. Performed By: #### H EMOG, TROPN, LIPA4, CMP3, QWAL2 #### [facility] [address] [place] [address] ALP [Catalytic activity/Vol] 44 U/L Normal 38-126 [facility] Comment on above: Order Comment: CHEMI STRY SPECIMEN MODERATELY HEMOLYZED. INTERPRET RESULTS WITH CAUTION. Performed By: #### H EMOG, TROPN, LIPA4, CMP3, QWAL2 #### [facility] [address] [place] [address] Anion gap [Moles/Vol] 5 mmol/L Normal 3-13 [facility] Comment on above: Order Comment: CHEMI STRY SPECIMEN MODERATELY HEMOLYZED. INTERPRET RESULTS WITH CAUTION. Performed By: #### H EMOG, TROPN, LIPA4, CMP3, QWAL2 #### [facility] [address] [place] [address] AST [Catalytic activity/Vol] 40 U/L Normal 15-46 [facility] Comment on above: Order Comment: CHEMI STRY SPECIMEN MODERATELY HEMOLYZED. INTERPRET RESULTS WITH CAUTION. Performed By: #### H EMOG, TROPN, LIPA4, CMP3, QWAL2 #### [facility] [address] [place] [address] Bilirubin [Mass/Vol] 0.6 mg/dL Normal 0.2-1.3 [facility] Comment on above: Order Comment: CHEMI STRY SPECIMEN MODERATELY HEMOLYZED. INTERPRET RESULTS WITH CAUTION. Performed By: #### H EMOG, TROPN, LIPA4, CMP3, QWAL2 #### [facility] [address] [place] [address] CO2 [Moles/Vol] 24 mmol/L Normal 22-30 [facility] Comment on above: Order Comment: CHEMI STRY SPECIMEN MODERATELY HEMOLYZED. INTERPRET RESULTS WITH CAUTION. Performed By: #### H EMOG, TROPN, LIPA4, CMP3, QWAL2 #### [facility] [address] [place] [address] Creatinine [Mass/Vol] 0.53 mg/dL Normal 0.52-1.25 [facility] Comment on above: Order Comment: CHEMI STRY SPECIMEN MODERATELY HEMOLYZED. INTERPRET RESULTS WITH CAUTION. Performed By: #### H EMOG, TROPN, LIPA4, CMP3, QWAL2 #### [facility] [address] [place] [address] eGFR OTHER > 90.0 Normal >60 [facility] Comment on above: Order Comment: CHEMI [...] H EMOG, TROPN, LIPA4, CMP3, QWAL2 #### [facility] [address] [place] [address] GFR/1.73 sq M.predicted among blacks MDRD (S/P/Bld) [Vol rate/Area] mL/min/{1.73_m2} Normal >60 [facility] Comment on above: Order Comment: CHEMI STRY SPECIMEN MODERATELY HEMOLYZED. INTERPRET RESULTS WITH CAUTION. Performed By: #### H EMOG, TROPN, LIPA4, CMP3, QWAL2 #### [facility] [address] [place] [address] Protein [Mass/Vol] 7.4 g/dL Normal 6.3-8.2 [facility] Comment on above: Order Comment: CHEMI STRY SPECIMEN MODERATELY HEMOLYZED. INTERPRET RESULTS WITH CAUTION. Performed By: #### H EMOG, TROPN, LIPA4, CMP3, QWAL2 #### [facility] [address] [place] [address] Chloride [Moles/Vol] 108 mmol/L High 98-107 [facility] Comment on above: Order Comment: CHEMI STRY SPECIMEN MODERATELY HEMOLYZED. INTERPRET RESULTS WITH CAUTION. Performed By: #### H EMOG, TROPN, LIPA4, CMP3, QWAL2 #### [facility] [address] [place] [address] Potassium [Moles/Vol] 4.4 mmol/L Normal 3.5-5.1 [facility] Comment on above: Order Comment: CHEMI STRY SPECIMEN MODERATELY HEMOLYZED. INTERPRET RESULTS WITH CAUTION. Performed By: #### H EMOG, TROPN, LIPA4, CMP3, QWAL2 #### [facility] [address] [place] [address] Sodium [Moles/Vol] 137 mmol/L Normal 135-145 [facility] Comment on above: Order Comment: CHEMI STRY SPECIMEN MODERATELY HEMOLYZED. INTERPRET RESULTS WITH CAUTION. Performed By: #### H EMOG, TROPN, LIPA4, CMP3, QWAL2 #### [facility] [address] [place] [address] Albumin [Mass/Vol] 4.1 g/dL Normal 3.5-5.0 [facility] Comment on above: Order Comment: CHEMI STRY SPECIMEN MODERATELY HEMOLYZED. INTERPRET RESULTS WITH CAUTION. Performed By: #### H EMOG, TROPN, LIPA4, CMP3, QWAL2 #### [facility] [address] [place] [address] Complete Urinalysison 2020 Appearance (U) Clear Normal Clear [facility] Comment on above: Result Comment: . Performed By: #### C UA2 #### [facility] [address] [place] [address] Bilirubin,Urine Negative Normal Negative [facility] Comment on above: Result Comment: . Performed By: #### C UA2 #### [facility] [address] [place] [address] Color (U) Light-Yellow Normal Lt. Yellow [facility] Comment on above: Result Comment: . Performed By: #### C UA2 #### [facility] [address] [place] [address] Glucose Ql (U) Normal Normal Normal (<70) [facility] Comment on above: Result Comment: . Performed By: #### C UA2 #### [facility] [address] [place] [address] Ketone,Urine Negative Normal Negative [facility] Comment on above: Result Comment: . Performed By: #### C UA2 #### [facility] [address] [place] [address] Leukocytes,Urine Negative Normal Negative [facility] Comment on above: Result Comment: . Performed By: #### C UA2 #### [facility] [address] [place] [address] Nitrites,Urine Negative Normal Negative [facility] Comment on above: Result Comment: . Performed By: #### C UA2 #### [facility] [address] [place] [address] Occult Blood,Urine Negative Normal Negative [facility] Comment on above: Result Comment: . Performed By: #### C UA2 #### [facility] [employer] [facility] [address] [place] [address] pH,Urine 6.0 Normal 5.0-8.0 [facility] Comment on above: Result Comment: . Performed By: #### C UA2 #### [facility] [address] [place] [address] Specific [place],Urine > 1.030 Abnormal 1.005 - 1.030 [facility] Comment on above: Result Comment: . Performed By: #### C UA2 #### [facility] [address] [place] [address] Total Protein,Urine Negative Normal Negative [facility] Comment on above: Result Comment: . Performed By: #### C UA2 #### [facility] [address] [place] [address] Urobilinogen,Urine Normal Normal Normal (0-1) [facility] Comment on above: Result Comment: . Performed By: #### C UA2 #### [facility] [employer] [facility] [address] [place] [address] Comprehensive Metabolic Pane lOrdered By: Nicolás Wiley on 07-10-2021 Albumin [Mass/Vol] 4.1 g/dL 3.5 - 5.0 g/dL [facility] Work Phone: [phone] ALP (Bld) [Catalytic activity/Vol] 44 U/L 38 - 126 U/L [facility] Work Phone: [phone] ALT [Catalytic activity/Vol] 31 U/L 0 - 34 U/L [facility] Work Phone: [phone] Comment on above: The ALT test is perf ormed by an updated assay method. Please note that the reference intervals have been changed and are now sex specific. Anion gap [Moles/Vol] 5 mmol/L 3 - 13 mmol/L [facility] Work Phone: [phone] AST [Catalytic activity/Vol] 40 U/L 15 - 46 U/L [facility] Work Phone: [phone] Bilirubin [Mass/Vol] 0.6 mg/dL 0.2 - 1 .3 mg/dL [facility] Work Phone: [phone] Calcium [Mass/Vol] 9.2 mg/dL 8.4 - 10. 4 mg/dL [facility] Work Phone: [phone] Chloride [Moles/Vol] 108 mmol/L High 98 - 10 7 mmol/L [facility] Work Phone: [phone] CO2 [Moles/Vol] 24 mmol/L 22 - 30 mmol/L [facility] Work Phone: [phone] Creatinine [Mass/Vol] 0.53 mg/dL 0.52 - 1.25 mg/dL [facility] Work Phone: [phone] EGFR IF NonAfrican Kenyan >90.0 >60 mL/min [facility] Work Phone: [phone] Comment on above: KDIGO guidelines pro vide [...] fraction] 7.4 g/dL 6.3 - 8.2 g/dL [facility] Work Phone: [phone] GFR/1.73 sq M.predicted among blacks MDRD (S/P/Bld) [Vol rate/Area] mL/min/{1.73_m2} >60 mL/min [facility] Work Phone: [phone] Glucose [Mass/Vol] 79 mg/dL 70 - 100 mg/dL [facility] Work Phone: [phone] Interpretation and review of laboratory results Abnormal [facility] Work Phone: [phone] Potassium [Moles/Vol] 4.4 mmol/L 3.5 - 5.1 mmol/L [facility] Work Phone: Sodium [Moles/Vol] 137 mmol/L 135 - 145 mmol/L [facility] Work Phone: Urea nitrogen (BldV) [Mass/Vol] 13 mg/dL 9 - 20 mg/dL [facility] Work Phone: ED Provider Noteon 1 ED Provider Note Emergency Department Encounter [facility] Patient: Lillian Fiore : 1985 Date of Evaluation: 07/10/2021 ED Provider: Nicolás Wiley MD Note: I wore a N95 mask [...] she reports she went to outside hospital [place] emergency department, there a CT abdomen pelvis [...] sodium chloride bolus (0 mLs IntraVENous Stopped 07/11/21 0009) morphine injection 4 mg (4 mg IntraVENous Given 07/10/21 225) EKG per my interpretation: Rate and rhythm: [sinus rhythm], 54 bpm [place]: [within normal range] Intervals: [within normal range] [...] dysfunction, hCG (more content not included)... Normal [facility] HCG Qualitative, SerumOrdere d By: Nicolás Wiley on 07-10-2021 hCG Qual Negative [facility] Work Phone: Comment on above: Reference Range: NEG ATIVE Effective 12/14/2019, the reference interval for the qualitative test has been updated. This test detects hCG at concentrations of 10 mIU/L or greater in serum. Test Performed by [facility], [address] [place] [address] CHEMISTRY SPECIMEN MODERATELY HEMOLYZED. INTERPRET RESULTS WITH CAUTION. [facility] Work Phone: [facility] Work Phone: Hemogramon 07-10-2021 Erythrocyte distribution width (RBC) [Ratio] 13.7 % Normal 11.5-14.5 [facility] Comment on above: Performed By: #### H EMOG, TROPN, LIPA4, CMP3, QWAL2 #### [facility] [address] [place] [address] Hematocrit (Bld) [Volume fraction] 39.8 % Normal 35.0-47.0 [facility] Comment on above: Performed By: #### H EMOG, TROPN, LIPA4, CMP3, QWAL2 #### [facility] [address] [place] [address] Hemoglobin (Bld) [Mass/Vol] 13.1 g/dL Normal 11.7-16.0 [facility] Comment on above: Performed By: #### H EMOG, TROPN, LIPA4, CMP3, QWAL2 #### [facility] [address] [place] [address] MCH (RBC) [Entitic mass] 29.9 pg Normal 26.0-34.0 [facility] Comment on above: Performed By: #### H EMOG, TROPN, LIPA4, CMP3, QWAL2 #### [facility] [address] [place] [address] MCHC 33.0 % Normal 32.0-36.0 [facility] Comment on above: Performed By: #### H EMOG, TROPN, LIPA4, CMP3, QWAL2 #### [facility] [address] [place] [address] MCV (RBC) [Entitic vol] 90.8 fL Normal 79.0-98.0 [facility] Comment on above: Performed By: #### H EMOG, TROPN, LIPA4, CMP3, QWAL2 #### [facility] [address] [place] [address] Platelet mean volume (Bld) [Entitic vol] 8.6 fL Normal 7.4-10.4 [facility] Comment on above: Performed By: #### H EMOG, TROPN, LIPA4, CMP3, QWAL2 #### [facility] [address] [place] [address] Platelets (Bld) [#/Vol] 220 10*3/uL Normal 140-440 [facility] Comment on above: Performed By: #### H EMOG, TROPN, LIPA4, CMP3, QWAL2 #### [facility] [address] [place] [address] RBC (Bld) [#/Vol] 4.38 10*6/uL Normal 3.80-5.20 [facility] Comment on above: Performed By: #### H EMOG, TROPN, LIPA4, CMP3, QWAL2 #### [facility] [address] [place] [address] WBC (Bld) [#/Vol] 8.2 10*3/uL Normal 3.6-10.7 [facility] Comment on above: Performed By: #### H EMOG, TROPN, LIPA4, CMP3, QWAL2 #### [facility] [address] [place] [address] Lipaseon 07-10-2021 Lipase [Catalytic activity/Vol] 234 U/L Normal 23-300 [facility] Comment on above: Order Comment: CHEMI STRY SPECIMEN MODERATELY HEMOLYZED. INTERPRET RESULTS WITH CAUTION. Performed By: #### H EMOG, TROPN, LIPA4, CMP3, QWAL2 #### [facility] [address] [place] [address] LipaseOrdered By: Nicloás jimenez on 07-10-2021 Lipase [Catalytic activity/Vol] 234 U/L 23 - 300 U/L [facility] Work Phone: No Panel InformationOrdered By: Nicolás Wiley on 07-10-2021 Test Performed by [facility], [address] [place], [place] [address] CHEMISTRY SPECIMEN MODERATELY HEMOLYZED. INTERPRET RESULTS WITH CAUTION. [facility] Work Phone: [facility] Work Phone: [phone] Test Performed by [facility], [address] [place], [place] [address] [facility] Work Phone: [facility] Work Phone: TroponinOrdered By: Nicolás Wiley on 07-10-2021 Troponin I.cardiac [Mass/Vol] 0.012 ng/mL 0.000 - 0.034 ng/mL [facility] Work Phone: Comment on above: . Test Performed by [facility], [address] [place], [place] [address] CHEMISTRY SPECIMEN MODERATELY HEMOLYZED. INTERPRET RESULTS WITH CAUTION. [facility] Work Phone: [facility] Work Phone: US ABDOMEN LIMITED Specify o rgan? LIVER, GALLBLADDER, PANCREASOrdered By: Nicolás Wiley on 07-10-2021 Patient Name: LILLIAN FIORE Ultrasound ACCESSION EXAM DATE/TIME PROCEDURE ORDERING PROVIDER [id number] 07/10/2021 21:49 EDT US Abdomen Limited [id number] HAZEL CPT code 59301 Reason For Exam (US Abdomen Limited) epigastric [...] WENDELL Transcribed Date and Time: 07/10/2021 10:48 [facility] Work Phone: [facility], [facility] Incoming [facility] Results From [facility] - 07/10/2021 10:48 PM EDT Patient Name: LILLIAN FIORE Ultrasound ACCESSION EXAM DATE/TIME PROCEDURE ORDERING PROVIDER [id number] 07/10/2021 21:49 EDT US Abdomen Limited NICOLÁS REGALADO CPT code 38835 Reason For Exam (US Abdomen Limited) epigastric [...] WENDELL Transcribed Date and Time: 07/10/2021 10:48 [facility] Work Phone: [facility] Work Phone: US Abdomen Limitedon 021 US Abdomen Limited Patient Name: LILLIAN FIORE Ultrasound ACCESSION EXAM DATE/TIME PROCEDURE ORDERING PROVIDER [id number] 07/10/2021 21:49 EDT US Abdomen Limited Myah BettyNICOLÁS WILEY CPT code 49267 Reason For Exam (US Abdomen Limited) epigastric [...] Transcribed Date and Time: 07/10/2021 10:48 Normal [facility] US NON OB TRANSVAGINALOrdere d By: Nicolás Wiley on 07-10-2021 Patient Name: LILLIAN FIORE Ultrasound ACCESSION EXAM DATE/TIME PROCEDURE ORDERING PROVIDER [id number] 07/10/2021 22:15 EDT US Transvaginal NICOLÁS REGALADO CPT code 09485 Reason For Exam (US Transvaginal) pelvic pain, [...] Phone: [facility], [facility] In[facility] Results From [facility] - 07/10/2021 10:46 PM EDT Patient Name: LILLIAN FIORE Ultrasound ACCESSION EXAM DATE/TIME PROCEDURE ORDERING PROVIDER [id number] 07/10/2021 22:15 EDT US Transvaginal NICOLÁS REGALADO CPT code 99914 Reason For Exam (US Transvaginal) pelvic pain, [...] WENDELL Transcribed Date and Time: 07/10/2021 10:46 [facility] Work Phone: [facility] Work Phone: US Transvaginalon 07-10-2021 US Transvaginal Patient Name: LILLIAN FIORE Ultrasound ACCESSION EXAM DATE/TIME PROCEDURE ORDERING PROVIDER [id number] 07/10/2021 22:15 EDT US Transvaginal [id number] -NICOLÁS WILEY CPT code 98146 Reason For Exam (US Transvaginal) pelvic pain, [...] Transcribed Date and Time: 07/10/2021 10:46 Normal [facility] UrinalysisOrdered By: Hetal Wiley on 07-10-2021 Appearance (U) Clear Clear NA [facility] Work Phone: [phone] Comment on above: . Bilirubin Urine Negative Negative mg/dL [facility] Work Phone: [phone] Comment on above: . Color (U) Light-Yellow Lt. Yellow NA [facility] Work Phone: [phone] Comment on above: . Glucose, Ur Normal Normal (<70) mg/dL [facility] Work Phone: [phone] Comment on above: . Interpretation and review of laboratory results Abnormal [facility] Work Phone: [phone] Ketones Ql (U) Negative Negative mg/dL [facility] Work Phone: [phone] Comment on above: . LEUKOCYTES, UA Negative Negative Tammy/uL [facility] Work Phone: [phone] Comment on above: . Nitrite, Urine Negative Negative NA [facility] Work Phone: [phone] Comment on above: . Occult Blood,Urine Negative Negative mg/dL [facility] Work Phone: [phone] Comment on above: . pH (U) 6.0 [pH] [facility] Work Phone: [phone] Comment on above: . Specific [place], Urine >1.030 Abnormal [facility] Work Phone: [phone] Comment on above: . Total Protein, Urine Negative Negativ e mg/dL [facility] Work Phone: [phone] Comment on above: . Urobilinogen, Urine Normal Normal ( 0-1) mg/dL [facility] Work Phone: [phone] Comment on above: . Comp Metabolic Panelon 05-11 ALP [Catalytic activity/Vol] 55 U/L Normal 38-126 [facility] Comment on above: Performed By: #### C MP3, HEMDF ####[facility] [address] [place] [address] ALT [Catalytic activity/Vol] 14 U/L Normal 0-34 [facility] Risk I/O Comment on above: Result Comment: The ALT test is performed by an updated assay method. Please note that the reference intervals have been changed and are now sex specific. Performed By: #### C MP3, HEMDF ####[place] [address] [place] [address] Calcium [Mass/Vol] 8.9 mg/dL Normal 8.4-10.4 [facility] Comment on above: Performed By: #### C MP3, HEMDF ####[place] [address] [place] [address] Glucose [Mass/Vol] 76 mg/dL Normal 70-100 [facility] Comment on above: Performed By: #### C MP3, HEMDF ####[place] [address] [place] [address] Urea nitrogen [Mass/Vol] 12 mg/dL Normal 7-20 [facility] Comment on above: Performed By: #### C MP3, HEMDF ####[place] [address] [place] [address] Anion gap [Moles/Vol] 3 mmol/L Normal 3-13 [facility] Comment on above: Performed By: #### C MP3, HEMDF ####[place] [address] [place] [address] AST [Catalytic activity/Vol] 24 U/L Normal 15-46 [facility] Comment on above: Performed By: #### C MP3, HEMDF ####[place] [address] [place] [address] Bilirubin [Mass/Vol] 0.3 mg/dL Normal 0.2-1.3 [facility] Comment on above: Performed By: #### C MP3, HEMDF ####[place] [address] [place] [address] CO2 [Moles/Vol] 25 mmol/L Normal 22-30 [facility] Comment on above: Performed By: #### C MP3, HEMDF ####[place] [address] [place] [address] Creatinine [Mass/Vol] 0.62 mg/dL Normal 0.52-1.25 [facility] Comment on above: Performed By: #### C MP3, HEMDF ####[place] [address] [place] [address] eGFR OTHER > 90.0 Normal >60 [facility] Comment on above: Result Comment: KDIG [...] secretion. Performed By: #### C MP3, HEMDF ####[place] [address] [place] [address] GFR/1.73 sq M.predicted among blacks MDRD (S/P/Bld) [Vol rate/Area] mL/min/{1.73_m2} Normal >60 [facility] Comment on above: Performed By: #### C MP3, HEMDF ####[place] [address] [place] [address] Protein [Mass/Vol] 6.9 g/dL Normal 6.3-8.2 [facility] Comment on above: Performed By: #### C MP3, HEMDF ####[place] [address] [place] [address] Potassium [Moles/Vol] 3.9 mmol/L Normal 3.5-5.1 [facility] Comment on above: Performed By: #### C MP3, HEMDF ####[place] [address] [place] [address] Sodium [Moles/Vol] 137 mmol/L Normal 135-145 [facility] Comment on above: Performed By: #### C MP3, HEMDF ####[place] [address] [place] [address] Albumin [Mass/Vol] 3.8 g/dL Normal 3.5-5.0 [facility] Comment on above: Performed By: #### C MP3, HEMDF ####[place] [address] [place] [address] Chloride [Moles/Vol] 109 mmol/L High 98-107 [facility] Comment on above: Performed By: #### C MP3, HEMDF ####[place] [address] [place] [address] Complete Urinalysison 2020 Appearance (U) Clear Normal Clear [facility] Comment on above: Result Comment: . Performed By: #### C UA2 ####[place] [address] [place] [address] Bilirubin,Urine Negative Normal Negative [facility] [place] [facility] Comment on above: Result Comment: . Performed By: #### C UA2 ####[address] [place] [address] Color (U) Colorless Normal Lt. Yellow [facility] Comment on above: Result Comment: . Performed By: #### C UA2 ####[place] [address] [place] [address] Glucose Ql (U) Normal Normal Normal (<70) [facility] Comment on above: Result Comment: . Performed By: #### C UA2 ####[address] [place] [address] Ketone,Urine Negative Normal Negative [facility] Comment on above: Result Comment: . Performed By: #### C UA2 ####[address] [place] [address] Leukocytes,Urine Negative Normal Negative [facility] Comment on above: Result Comment: . Performed By: #### C UA2 ####[place] [address] [place] [address] Nitrites,Urine Negative Normal Negative [facility] Comment on above: Result Comment: . Performed By: #### C UA2 ####[place] [address] [place] [address] Occult Blood,Urine Negative Normal Negative [facility] Comment on above: Result Comment: . Performed By: #### C UA2 ####[address] [place] [address] pH,Urine 6.5 Normal 5.0-8.0 [facility] Comment on above: Result Comment: . Performed By: #### C UA2 ####[address] [place] [address] Specific [place],Urine 1.011 Normal 1.005 - 1.030 [facility] Comment on above: Result Comment: . Performed By: #### C UA2 ####[address] [place] [address] Total Protein,Urine Negative Normal Negative [facility] Comment on above: Result Comment: . Performed By: #### C UA2 ####[address] [place] [address] Urobilinogen,Urine Normal Normal Normal (0-1) [facility] Comment on above: Result Comment: . Performed By: #### C UA2 ####[address] [place] [address] Comprehensive Metabolic Pane lOrdered By: Angie Alejandro on 05-11-2021 Albumin [Mass/Vol] 3.8 g/dL 3.5 - 5.0 g/dL [facility] Work Phone: [phone] ALP (Bld) [Catalytic activity/Vol] 55 U/L 38 - 126 U/L [facility] Work Phone: [phone] ALT [Catalytic activity/Vol] 14 U/L 0 - 34 U/L [facility] Work Phone: [phone] Comment on above: The ALT test is perf ormed by an updated assay method. Please note that the reference intervals have been changed and are now sex specific. Anion gap [Moles/Vol] 3 mmol/L 3 - 13 mmol/L [facility] Work Phone: [phone] AST [Catalytic activity/Vol] 24 U/L 15 - 46 U/L [facility] Work Phone: [phone] Bilirubin [Mass/Vol] 0.3 mg/dL 0.2 - 1 .3 mg/dL [facility] Work Phone: [phone] Calcium [Mass/Vol] 8.9 mg/dL 8.4 - 10. 4 mg/dL [facility] Work Phone: [phone] Chloride [Moles/Vol] 109 mmol/L High 98 - 10 7 mmol/L [facility] Work Phone: [phone] [Moles/Vol] 25 mmol/L 22 - 30 mmol/L [facility] Work Phone: [phone] Creatinine [Mass/Vol] 0.62 mg/dL 0.52 - 1.25 mg/dL [facility] Work Phone: [phone] IF NonAfrican Kenyan >90.0 >60 mL/min [facility] Work Phone: [phone] Comment on above: KDIGO guidelines pro vide [...] fraction] 6.9 g/dL 6.3 - 8.2 g/dL [facility] Work Phone: [phone] GFR/1.73 sq M.predicted among blacks MDRD (S/P/Bld) [Vol rate/Area] mL/min/{1.73_m2} >60 mL/min [facility] Work Phone: [phone] Glucose [Mass/Vol] 76 mg/dL 70 - 100 mg/dL [facility] Work Phone: [phone] Interpretation and review of laboratory results Abnormal [facility] Work Phone: [phone] Potassium [Moles/Vol] 3.9 mmol/L 3.5 - 5.1 mmol/L [facility] Work Phone: [phone] Sodium [Moles/Vol] 137 mmol/L 135 - 145 mmol/L [facility] Work Phone: Urea nitrogen (BldV) [Mass/Vol] 12 mg/dL 7 - 20 mg/dL [facility] Work Phone: [phone] Test Performed by [facility], [address] [place], [place], [place] [address] [facility] Work Phone: [facility] Work Phone: ED Provider Noteon 1 [facility] Pt Name: Lillian [...] more severe than usual. She went to [facility] emergency department last night. She states that [...] Gatherings with Friends and Family: ? Attends Congregational Services: ? Active Member of Clubs or Organizations: ? Attends Club or Organization Meetings: ? Marital Status: Intimate Partner Violence: ? Fear of Current or Ex-Partner: ? Emotionally Abused: ? Physically Abused: ? Sexually Abused: SCREENINGS PHYSICAL EXAM (up to 7 for level 4, 8 or more for level 5) ED Triage Vitals [05/11/21 (more content not included)... Normal [facility] Hemogram (CBC) w/Auto DiffOr dered By: Angie Alejandro on 05-11-2021 Absolute Baso # 0.0 10*3/uL 0.0 - 0.2 10*3/uL [facility] Work Phone: Absolute Neut # 3.1 10*3/uL 1.8 - 7.0 10*3/uL [facility] Work Phone: [phone] Basophils/100 WBC (Bld) 0.7 % 0.0 - 2.0 % [facility] Work Phone: [phone] Eosinophils (Bld) [#/Vol] 0.2 10*3/uL 0.0 - 0.5 10*3/uL [facility] Work Phone: [phone] Eosinophils/100 WBC (Bld) 3.0 % 1.0 - 6.0 % [facility] Work Phone: [phone] Granulocytes/100 WBC (Bld) 53.2 % 40.0 - 80.0 % [facility] Work Phone: [phone] Hematocrit (Bld) [Volume fraction] 38.6 % 35.0 - 47.0 % [facility] Work Phone: Hemoglobin.gastrointes tinal spec 1 Ql (Stl) 13.1 g/dL 11.7 - 16.0 g/dL [facility] Work Phone: Lymphocytes (Bld) [#/Vol] 2.2 10*3/uL 1.0 - 4.3 10*3/uL [facility] Work Phone: [phone] Lymphocytes/100 WBC (Bld) 37.2 % 20.0 - 40.0 % [facility] Work Phone: MCH (RBC) [Entitic mass] 31.0 pg 26.0 - 34.0 pg [facility] Work Phone: MCHC (RBC) [Mass/Vol] 33.9 % 32.0 - 36.0 % [facility] Work Phone: MCV (RBC) [Entitic vol] 91.5 fL 79.0 - 98.0 fL [facility] Work Phone: Monocytes (Bld) [#/Vol] 0.3 10*3/uL 0.0 - 0.8 10*3/uL [facility] Work Phone: Monocytes/100 WBC (Bld) 5.9 % 2.0 - 10.0 % [facility] Work Phone: Platelet distribution width (Bld) [Ratio] 13.9 % 11.5 - 14.5 % [facility] Work Phone: Platelet mean volume (Bld) [Entitic vol] 8.0 fL 7.4 - 10.4 fL [facility] Work Phone: Platelets (Bld) [#/Vol] 201 10*3/uL 140 - 440 10*3/uL [facility] Work Phone: RBC (Bld) [#/Vol] 4.22 10*6/uL 3.80 - 5.2 0 10*6/uL [facility] Work Phone: WBC (Bld) [#/Vol] 5.9 10*3/uL 3.6 - 10.7 10*3/uL [facility] Work Phone: Test Performed by [facility], [address] [place], [place] [address] [facility] Work Phone: [facility] Work Phone: Hemogram w/ Autodiffon 05-11 Abs Baso Cnt 0.0 10*3/uL Normal 0.0-0.2 [facility] Comment on above: Performed By: #### C MP3, HEMDF ####[place] [address] [place] [address] Abs Neutrophile Cnt 3.1 10*3/uL Normal 1.8-7.0 [facility] Comment on above: Performed By: #### C MP3, HEMDF ####[place] [address] [place] [address] Basophils/100 WBC (Bld) 0.7 % Normal 0.0-2.0 [facility] Comment on above: Performed By: #### C MP3, HEMDF ####[place] [address] [place] [address] Eosinophils (Bld) [#/Vol] 0.2 10*3/uL Normal 0.0-0.5 [facility] Comment on above: Performed By: #### C MP3, HEMDF ####[place] [address] [place] [address] Eosinophils/100 WBC (Bld) 3.0 % Normal 1.0-6.0 [facility] Comment on above: Performed By: #### C MP3, HEMDF ####[place] [address] [place] [address] Erythrocyte distribution width (RBC) [Ratio] 13.9 % Normal 11.5-14.5 [facility] Comment on above: Performed By: #### C MP3, HEMDF ####[place] [address] [place] [address] Granulocytes/100 WBC (Bld) 53.2 % Normal 40.0-80.0 [facility] Comment on above: Performed By: #### C MP3, HEMDF ####[place] [address] [place] [address] Hematocrit (Bld) [Volume fraction] 38.6 % Normal 35.0-47.0 [facility] Comment on above: Performed By: #### C MP3, HEMDF ####[place] [address] [place] [address] Hemoglobin (Bld) [Mass/Vol] 13.1 g/dL Normal 11.7-16.0 [facility] Comment on above: Performed By: #### C MP3, HEMDF ####[facility] [place] [address] Lymphocytes (Bld) [#/Vol] 2.2 10*3/uL Normal 1.0-4.3 [facility] Comment on above: Performed By: #### C MP3, HEMDF ####[place] [address] [place] [address] Lymphocytes/100 WBC (Bld) 37.2 % Normal 20.0-40.0 [facility] Comment on above: Performed By: #### C MP3, HEMDF ####[place] [address] [place] [address] MCH (RBC) [Entitic mass] 31.0 pg Normal 26.0-34.0 [facility] Comment on above: Performed By: #### C MP3, HEMDF ####[place] [address] [place] [address] MCHC 33.9 % Normal 32.0-36.0 [facility] Comment on above: Performed By: #### C MP3, HEMDF ####[address] [place] [address] MCV (RBC) [Entitic vol] 91.5 fL Normal 79.0-98.0 [facility] Comment on above: Performed By: #### C MP3, HEMDF ####[place] [address] [place] [address] Monocytes (Bld) [#/Vol] 0.3 10*3/uL Normal 0.0-0.8 [facility] Comment on above: Performed By: #### C MP3, HEMDF ####[place] [address] [place] [address] Monocytes/100 WBC (Bld) 5.9 % Normal 2.0-10.0 [facility] Comment on above: Performed By: #### C MP3, HEMDF ####[place] [address] [place] [address] Platelet mean volume (Bld) [Entitic vol] 8.0 fL Normal 7.4-10.4 [facility] Comment on above: Performed By: #### C MP3, HEMDF ####[facility] [address] [place] [address] Platelets (Bld) [#/Vol] 201 10*3/uL Normal 140-440 [facility] Comment on above: Performed By: #### C MP3, HEMDF ####[facility] [address] [place] [address] RBC (Bld) [#/Vol] 4.22 10*6/uL Normal 3.80-5.20 [facility] Comment on above: Performed By: #### C MP3, HEMDF ####[facility] [address] [facility] [place] [address] WBC (Bld) [#/Vol] 5.9 10*3/uL Normal 3.6-10.7 [facility] Comment on above: Performed By: #### C MP3, HEMDF ####[facility] [address] [facility] [place] [address] UrinalysisOrdered By: Iam Alejandro on 05-11-2021 Appearance (U) Clear Clear NA [facility] Work Phone: [phone] Comment on above: . Bilirubin Urine Negative Negative mg/dL [facility] Work Phone: [phone] Comment on above: . Color (U) Colorless Lt. Yellow NA [facility] Work Phone: [phone] Comment on above: . Glucose, Ur Normal Normal (<70) mg/dL [facility] Work Phone: [phone] Comment on above: . Ketones Ql (U) Negative Negative mg/dL [facility] Work Phone: [phone] Comment on above: . LEUKOCYTES, UA Negative Negative Tammy/uL [facility] Work Phone: [phone] Comment on above: . Nitrite, Urine Negative Negative NA [facility] Work Phone: [phone] Comment on above: . Occult Blood,Urine Negative Negative mg/dL [facility] Work Phone: [phone] Comment on above: . pH (U) 6.5 [pH] [facility] Work Phone: Comment on above: . Specific [place], Urine 1.011 [facility] Work Phone: [phone] Comment on above: . Total Protein, Urine Negative Negativ e mg/dL [facility] Work Phone: [phone] Comment on above: . Urobilinogen, Urine Normal Normal ( 0-1) mg/dL [facility] Work Phone: Comment on above: . Test Performed by [facility], [address] [place], [place] [address] [facility] Work Phone: [phone] [facility] Work Phone: Surgical Tissue Examon 05-08 Surgical Tissue Exam Test performed at A [address] [address] NAME: LILLIAN FIORE REQUESTING: BRITNEY CEDEÑO MD [...] PRINTED: 05/12/2020 Page 1 of 1 Normal [facility] Comment on above: Performed By: #### S URG #### [address] [address] Urine HCG, Qual.on 0 Beta HCG ( test) Ql (U) Negative Normal Negative [facility] Comment on above: Performed By: #### L HCG2 #### [address] [address] Specific [place], Ur 1.025 Normal 1.005-1.030 [facility] Comment on above: Performed By: #### L HCG2 #### [place] [id number] Coronavirus 2019on 0 COVID 19 Result GAME TESTER Negative Normal CORNEG [facility] Comment on above: Result Comment: Nega tive for COVID19 (SARS CoV2) by PCR. This test was developed and its performance characteristics determined by [facility] Pathology and Laboratory Medicine [place]. This test has been authorized by FDA under an Emergency Use Authorization (EUA). This test has been validated in accordance with the FDA's Guidance Document Policy for Diagnostics Testing in Laboratories Certified to Perform High Complexity Testing under CLIA prior to Emergency use Authorization for Coronavirus Disease 2019 during the Public Health Emergency issued on December 01, 2019. Performing Laboratory: [facility] [place] [address] [id number] Performed By: #### C D19X #### [place] [address] Clinical Lists Update: Prelo ad Extendedon 10-17-2019 Tobacco smoking status NHIS current everyday smoker [facility] Work Phone: Clinical Summary: HMSPatient IDon 10-17-2019 WOP [facility] Work Phone: Office Visit: New - 1st visi t with practice, Rm: 6on 10-17-2019 NEGATED: Highlighted rowxray history of the Right Hand on 09/01/2019 at [facility] Work Phone: COVID-19 virus antigen assay SARS-CoV-2 (COVID-19) Ag IA.rapid Ql (Resp) [facility] Work Phone: Culture, urine Bacteria identified Cx Nom (U) Culture exhibits no growth. [facility] Work Phone: Bacteria identified Cx Nom (U) Positive [facility] Work Phone: [phone] Influenza virus A and B and SARS-CoV-2 (COVID-19) Ag panel - Upper respiratory specim SARS-CoV-2 (COVID-19) RNA FRANCESCO+probe Ql (Resp) [facility] Work Phone: Laboratory - Microbiology an d Antimicrobial susceptibility Bacteria identified Cx Nom (Bld) No growth in 5 days. [facility] Work Phone: No Panel Information Group B Streptococcus Culture Group B Beta Streptococcus is not isolated. [facility] Work Phone: Vital Signs Date Time Vital Sign Value Performing Clinician Facility 04-08-2025 19:30-0400 Body temperature 97.9 [degF] Dr. Maria Regan MD Work Phone: [facility] 04-08-2025 19:30-0400 Diastolic blood pressure 77 mm[Hg] Dr. Maria Regan MD Work Phone: [facility] 04-08-2025 19:30-0400 Heart rate 61 /min Dr. Maria Regan MD Work Phone: [facility] 04-08-2025 19:30-0400 Respiratory rate 18 /min Dr. Maria Regan MD Work Phone: [facility] 04-08-2025 19:30-0400 SaO2% (BldA) [Mass fraction] 99 % Dr. Maria Regan MD Work Phone: [facility] 04-08-2025 19:30-0400 Systolic blood pressure 110 mm[Hg] Dr. Maria Regan MD Work Phone: [facility] 04-08-2025 13:09-0400 Body height 160.[address] Maria Regan MD Work Phone: 3(454)286-936121 [place] [address] 04-08-2025 13:09-0400 Body mass index (BMI) [Ratio] 30.1 kg/m2 Dr. Maria Regan MD Work Phone: 2(016)238-839521 [place] [address] 04-08-2025 13:09-0400 Body weight 77.[address] Maria Regan MD Work Phone: 6(902)490-203821 [place] [address] 03-27-2025 11:10-0400 Body height 160.[address] Maria Regan MD Work Phone: 0(714)628-075297 [place] [address] 03-27-2025 11:06-0400 Body mass index (BMI) [Ratio] 29.2 kg/m2 Dr. Maria Regan MD Work Phone: 7(787)430-712821 [place] [address] 03-27-2025 11:06-0400 Body weight 74.[address] Maria Regan MD Work Phone: 8(814)738-213021 [place] [address] 03-27-2025 11:06-0400 Diastolic blood pressure 66 mm[Hg] Dr. Maria Regan MD Work Phone: 7(936)828-678921 [place] [address] 03-27-2025 11:06-0400 Systolic blood pressure 118 mm[Hg] Dr. Maria Regan MD Work Phone: 3(887)569-559021 [place] [address] 03-22-2025 00:00-0400 Diastolic blood pressure 72 mm[Hg] Dr. Maria Regan MD Work Phone: 0(193)397-182621 [place] [address] 03-22-2025 00:00-0400 Heart rate 74 /min Dr. Maria Regan MD Work Phone: 2(050)811-753721 [place] [address] 03-22-2025 00:00-0400 Respiratory rate 18 /min Dr. Maria Regan MD Work Phone: 5(429)037-785121 [place] [address] 03-22-2025 00:00-0400 SaO2% (BldA) [Mass fraction] 99 % Dr. Maria Regan MD Work Phone: 2(533)283-899221 [place] [address] 03-22-2025 00:00-0400 Systolic blood pressure 111 mm[Hg] Dr. Maria Regan MD Work Phone: [facility] 03-21-2025 22:52-0400 Body temperature 97.6 [degF] Dr. Maria Regan MD Work Phone: [facility] 03-21-2025 18:11-0400 Body height 160.[address] Maria Regan MD Work Phone: [facility] 03-21-2025 18:11-0400 Body mass index (BMI) [Ratio] 29.4 kg/m2 Dr. Maria Regan MD Work Phone: [facility] 03-21-2025 18:11-0400 Body weight 75.[address] Maria Regan MD Work Phone: [facility] 03-18-2025 09:30-0400 Body height 160.[address] Maria Regan MD Work Phone: 9(846)278-345521 [place] [address] 03-18-2025 09:30-0400 Body mass index (BMI) [Ratio] 29.5 kg/m2 Dr. Maria Regan MD Work Phone: [facility] 03-18-2025 09:30-0400 Body weight 75.[address] Maria Regan MD Work Phone: [facility] 03-18-2025 09:30-0400 Diastolic blood pressure 56 mm[Hg] Dr. Maria Regan MD Work Phone: [facility] 03-18-2025 09:30-0400 Systolic blood pressure 99 mm[Hg] Dr. Maria Regan MD Work Phone: [facility] 03-06-2025 15:23-0400 Body temperature 98.4 [degF] Dr. Maria Regan MD Work Phone: [facility] 03-06-2025 15:23-0400 Diastolic blood pressure 74 mm[Hg] Dr. Maria Regan MD Work Phone: 5(071)341-969921 [place] [address] 03-06-2025 15:23-0400 Heart rate 74 /min Dr. Maria Regan MD Work Phone: 0(002)931-512321 [place] [address] 03-06-2025 15:23-0400 Respiratory rate 16 /min Dr. Maria Regan MD Work Phone: 4(990)931-758021 [place] [address] 03-06-2025 15:23-0400 SaO2% (BldA) [Mass fraction] 99 % Dr. Maria Regan MD Work Phone: 3(198)231-448721 [place] [address] 03-06-2025 15:23-0400 Systolic blood pressure 164 mm[Hg] Dr. Maria Regan MD Work Phone: 2(089)133-767421 [place] [address] 03-06-2025 10:02-0400 Body height 160.[address] Maria Regan MD Work Phone: 2(537)546-894321 [place] [address] 03-06-2025 10:02-0400 Body mass index (BMI) [Ratio] 29.2 kg/m2 Dr. Maria Regan MD Work Phone: 8(603)375-812221 [place] [address] 03-06-2025 10:02-0400 Body weight [address] Maria Regan MD Work Phone: 7(249)409-740021 [place] [address] 02-27-2025 10:31-0400 Body height 160.[address] Maria Regan MD Work Phone: 4(887)826-846821 [place] [address] 02-27-2025 10:31-0400 Body mass index (BMI) [Ratio] 29.2 kg/m2 Dr. Maria Regan MD Work Phone: 5(118)615-316421 [place] [address] 02-27-2025 10:31-0400 Body weight 74.[address] Maria Regan MD Work Phone: 5(749)506-756121 [place] [address] 02-27-2025 10:31-0400 Diastolic blood pressure 66 mm[Hg] Dr. Maria Regan MD Work Phone: 7(320)683-080221 [place] [address] 02-27-2025 10:31-0400 Systolic blood pressure 102 mm[Hg] Dr. Maria Regan MD Work Phone: [facility] 02-18-2025 10:04-0400 Body temperature 98.2 [degF] Dr. Maria Regan MD Work Phone: [facility] 02-18-2025 10:04-0400 Diastolic blood pressure 45 mm[Hg] Dr. Maria Regan MD Work Phone: [facility] 02-18-2025 10:04-0400 Heart rate 53 /min Dr. Maria Regan MD Work Phone: [facility] 02-18-2025 10:04-0400 Respiratory rate 18 /min Dr. Maria Regan MD Work Phone: [facility] 02-18-2025 10:04-0400 SaO2% (BldA) [Mass fraction] 98 % Dr. Maria Regan MD Work Phone: [facility] 02-18-2025 10:04-0400 Systolic blood pressure 112 mm[Hg] Dr. Maria Regan MD Work Phone: [facility] 02-18-2025 08:29-0400 Body height 160.[address] Maria Regan MD Work Phone: [facility] 02-18-2025 08:29-0400 Body mass index (BMI) [Ratio] 28.8 kg/m2 Dr. Maria Regan MD Work Phone: [facility] 02-18-2025 08:29-0400 Body weight 73.[address] Maria Regan MD Work Phone: [facility] 01-07-2025 14:54-0400 Body height 160.[address] Maria Regan MD Work Phone: [facility] 01-07-2025 14:54-0400 Body mass index (BMI) [Ratio] 29.9 kg/m2 Dr. Maria Regan MD Work Phone: [facility] 01-07-2025 14:54-0400 Body weight 76.[address] Maria Regan MD Work Phone: 8(445)442-065521 [place] [address] 01-07-2025 14:54-0400 Diastolic blood pressure 51 mm[Hg] Dr. Maria Regan MD Work Phone: 1(822)373-551721 [place] [address] 01-07-2025 14:54-0400 Systolic blood pressure 105 mm[Hg] Dr. Maria Regan MD Work Phone: 7(290)272-159621 [place] [address] 12-21-2024 11:17-0400 Body mass index (BMI) [Ratio] 29.9 kg/m2 Dr. Maria Regan MD Work Phone: 4(871)455-661421 [place] [address] 12-21-2024 11:17-0400 Body weight 76.[address] Maria Regan MD Work Phone: 6(700)364-302121 [place] [address] 12-21-2024 11:17-0400 Diastolic blood pressure 49 mm[Hg] Dr. Maira Regan MD Work Phone: 5(358)785-542121 [place] [address] 12-21-2024 11:17-0400 Systolic blood pressure 95 mm[Hg] Dr. Maria Regan MD Work Phone: 8(638)482-669921 [place] [address] 11-22-2024 22:37-0500 Body temperature 98.4 [degF] Dr. Maria Regan MD Work Phone: 3(581)993-432221 [place] [address] 11-22-2024 22:37-0500 Diastolic blood pressure 71 mm[Hg] Dr. Maria Regan MD Work Phone: 8(487)883-515121 [place] [address] 11-22-2024 22:37-0500 Heart rate 65 /min Dr. Maria Regan MD Work Phone: 6(736)552-720821 [place] [address] 11-22-2024 22:37-0500 Respiratory rate 17 /min Dr. Maria Regan MD Work Phone: 1(073)436-045421 [place] [address] 11-22-2024 22:37-0500 SaO2% (BldA) [Mass fraction] 99 % Dr. Maria Regan MD Work Phone: [facility] 11-22-2024 22:37-0500 Systolic blood pressure 108 mm[Hg] Dr. Maria Regan MD Work Phone: [facility] 11-22-2024 15:16-0500 Body mass index (BMI) [Ratio] 30.1 kg/m2 Dr. Maria Regan MD Work Phone: [facility] 11-22-2024 15:16-0500 Body weight 77.[address] Maria Regan MD Work Phone: [facility] 2024 08:26-0500 Body height 160 cm Jennifer Werner MD Work Phone: [facility] 2024 08:26-0500 Body mass index (BMI) [Ratio] 30.12 kg/m2 Jennifer Werner MD Work Phone: [facility] 2024 08:26-0500 Body weight 77.11 kg Jennifer Werner MD Work Phone: [facility] 2024 08:26-0500 Diastolic blood pressure 69 mm[Hg] Jennifer Werner MD Work Phone: [facility] 2024 08:26-0500 Heart rate 67 /min Jennifer Werner MD Work Phone: [facility] 2024 08:26-0500 SaO2% (BldA) [Mass fraction] 96 % Jennifer Werner MD Work Phone: [facility] 2024 08:26-0500 Systolic blood pressure 104 mm[Hg] Jennifer Werner MD Work Phone: [facility] 10-11-2024 18:40-0500 Body mass index (BMI) [Ratio] 30.47 kg/m2 To VELAZQUEZ Work Phone: [facility] 10-11-2024 18:40-0500 Body temperature 97.59 [degF] Krislyn Aberegg PA Work Phone: [facility] 10-11-2024 18:40-0500 Body weight 78 kg Krislyn Aberegg PA Work Phone: [facility] 10-11-2024 18:40-0500 Diastolic blood pressure 67 mm[Hg] Krislyn Aberegg PA Work Phone: [facility] 10-11-2024 18:40-0500 Heart rate 78 /min Krislyn Aberegg PA Work Phone: [facility] 10-11-2024 18:40-0500 Respiratory rate 20 /min Krislyn Aberegg PA Work Phone: [facility] 10-11-2024 18:40-0500 SaO2% (BldA) [Mass fraction] 98 % Krislyn Aberegg PA Work Phone: [facility] 10-11-2024 18:40-0500 Systolic blood pressure 100 mm[Hg] Krislyn Aberegg PA Work Phone: [facility] 07-12-2024 09:00-0400 Body height 160 cm Jennifer Christina MD Work Phone: [facility] 07-12-2024 09:00-0400 Body mass index (BMI) [Ratio] 29.06 kg/m2 Jennifer Christina MD Work Phone: [facility] 07-12-2024 09:00-0400 Body weight 74.39 kg Jennifer Christina MD Work Phone: [facility] 07-12-2024 09:00-0400 Diastolic blood pressure 69 mm[Hg] Jennifer Christina MD Work Phone: [facility] 07-12-2024 09:00-0400 Heart rate 72 /min Jennifer Christina MD Work Phone: [facility] 07-12-2024 09:00-0400 Respiratory rate 18 /min Jennifer Christina MD Work Phone: [facility] 07-12-2024 09:00-0400 SaO2% (BldA) [Mass fraction] 98 % Jennifer Christina MD Work Phone: [facility] 07-12-2024 09:00-0400 Systolic blood pressure 109 mm[Hg] Jennifer Christina MD Work Phone: [facility] 07-09-2024 07:59-0400 Body mass index (BMI) [Ratio] 28.95 kg/m2 Krislyn Aberegg PA Work Phone: [facility] 07-09-2024 07:59-0400 Body temperature 97.11 [degF] Krislyn Aberegg PA Work Phone: [facility] 07-09-2024 07:59-0400 Body weight 74.1 kg Krislyn Aberegg PA Work Phone: [facility] 07-09-2024 07:59-0400 Diastolic blood pressure 70 mm[Hg] Krislyn Aberegg PA Work Phone: [facility] 07-09-2024 07:59-0400 Heart rate 78 /min Krislyn Aberegg PA Work Phone: [facility] 07-09-2024 07:59-0400 Respiratory rate 16 /min Krislyn Aberegg PA Work Phone: [facility] 07-09-2024 07:59-0400 SaO2% (BldA) [Mass fraction] 98 % Krislyn Aberegg PA Work Phone: [facility] 07-09-2024 07:59-0400 Systolic blood pressure 122 mm[Hg] Krislyn Aberegg PA Work Phone: [facility] 06-20-2024 15:18-0400 Body mass index (BMI) [Ratio] 29.1 kg/m2 Kellee Rai EXERCISE TEACHER.ULTRASOUND SPECIALIST Work Phone: [facility] 06-20-2024 15:18-0400 Body temperature 97.59 [degF] Kellee Rai EXERCISE TEACHER.ULTRASOUND SPECIALIST Work Phone: [facility] 06-20-2024 15:18-0400 Body weight 74.5 kg Kellee Rai EXERCISE TEACHER.ULTRASOUND SPECIALIST Work Phone: [facility] 06-20-2024 15:18-0400 Diastolic blood pressure 62 mm[Hg] Kellee Rai EXERCISE TEACHER.ULTRASOUND SPECIALIST Work Phone: [facility] 06-20-2024 15:18-0400 Heart rate 76 /min Kellee Rai EXERCISE TEACHER.ULTRASOUND SPECIALIST Work Phone: [facility] 06-20-2024 15:18-0400 Respiratory rate 16 /min Kellee Rai EXERCISE TEACHER.ULTRASOUND SPECIALIST Work Phone: [facility] 06-20-2024 15:18-0400 SaO2% (BldA) [Mass fraction] 98 % Kellee Rai EXERCISE TEACHER.ULTRASOUND SPECIALIST Work Phone: [facility] 06-20-2024 15:18-0400 Systolic blood pressure 108 mm[Hg] Kellee Rai EXERCISE TEACHER.ULTRASOUND SPECIALIST Work Phone: [facility] 06-15-2024 15:31-0400 Body mass index (BMI) [Ratio] 28.52 kg/m2 Krislyn Aberegg PA Work Phone: [facility] 06-15-2024 15:31-0400 Body temperature 98.29 [degF] Krislyn Aberegg PA Work Phone: [facility] 06-15-2024 15:31-0400 Body weight 73 kg Krislyn Aberegg PA Work Phone: [facility] 06-15-2024 15:31-0400 Diastolic blood pressure 66 mm[Hg] Krislyn Aberegg PA Work Phone: [facility] 06-15-2024 15:31-0400 Heart rate 77 /min Krislyn Aberegg PA Work Phone: [facility] 06-15-2024 15:31-0400 Respiratory rate 20 /min Krislyn Aberegg PA Work Phone: [facility] 06-15-2024 15:31-0400 SaO2% (BldA) [Mass fraction] 98 % Krislyn Aberegg PA Work Phone: [facility] 06-15-2024 15:31-0400 Systolic blood pressure 96 mm[Hg] Krislyn Aberegg PA Work Phone: [facility] 04-27-2024 12:55-0400 Body mass index (BMI) [Ratio] 27.23 kg/m2 Ricki Lafleur EXERCISE TEACHER.ULTRASOUND SPECIALIST Work Phone: [facility] 04-27-2024 12:55-0400 Body temperature 97 [degF] Ricki Lafleur EXERCISE TEACHER.ULTRASOUND SPECIALIST Work Phone: [facility] 04-27-2024 12:55-0400 Body weight 69.7 kg Ricki Lafleur EXERCISE TEACHER.ULTRASOUND SPECIALIST Work Phone: [facility] 04-27-2024 12:55-0400 Diastolic blood pressure 74 mm[Hg] Ricki Lafleur EXERCISE TEACHER.ULTRASOUND SPECIALIST Work Phone: [facility] 04-27-2024 12:55-0400 Heart rate 82 /min Ricki Lafleur EXERCISE TEACHER.ULTRASOUND SPECIALIST Work Phone: [facility] 04-27-2024 12:55-0400 Respiratory rate 16 /min Ricki Lafleur EXERCISE TEACHER.ULTRASOUND SPECIALIST Work Phone: [facility] 04-27-2024 12:55-0400 SaO2% (BldA) [Mass fraction] 97 % Ricki Lafleur EXERCISE TEACHER.ULTRASOUND SPECIALIST Work Phone: [facility] 04-27-2024 12:55-0400 Systolic blood pressure 122 mm[Hg] Ricki Lafleur EXERCISE TEACHER.ULTRASOUND SPECIALIST Work Phone: [facility] 03-28-2024 15:51-0400 Body height [facility] EXERCISE TEACHER.ULTRASOUND SPECIALIST Work Phone: [facility] 03-28-2024 15:51-0400 Body mass index (BMI) [Ratio] 27.64 kg/m2 [facility] EXERCISE TEACHER.ULTRASOUND SPECIALIST Work Phone: [facility] 03-28-2024 15:51-0400 Body weight 70.76 kg [facility] EXERCISE TEACHER.ULTRASOUND SPECIALIST Work Phone: [facility] 03-28-2024 15:51-0400 Diastolic blood pressure 66 mm[Hg] Mehran [facility] EXERCISE TEACHER.ULTRASOUND SPECIALIST Work Phone: [facility] 03-28-2024 15:51-0400 Heart rate 84 /min [facility] EXERCISE TEACHER.ULTRASOUND SPECIALIST Work Phone: [facility] 03-28-2024 15:51-0400 Respiratory rate 18 /min [facility] EXERCISE TEACHER.ULTRASOUND SPECIALIST Work Phone: [facility] 03-28-2024 15:51-0400 SaO2% (BldA) [Mass fraction] 99 % [facility] EXERCISE TEACHER.ULTRASOUND SPECIALIST Work Phone: [facility] 03-28-2024 15:51-0400 Systolic blood pressure 101 mm[Hg] [facility] EXERCISE TEACHER.ULTRASOUND SPECIALIST Work Phone: [facility] 01-23-2024 21:59-0400 Body height 160.02 cm [facility] 01-23-2024 21:59-0400 Body mass index (BMI) [Ratio] 28.3 kg/m2 [facility] 01-23-2024 21:59-0400 Body temperature 97 [degF] [facility] 01-23-2024 21:59-0400 Body weight 72.57 kg [facility] 01-23-2024 21:59-0400 Diastolic blood pressure 66 mm[Hg] [facility] 01-23-2024 21:59-0400 Heart rate 83 /min [facility] 01-23-2024 21:59-0400 Respiratory rate 16 /min [facility] 01-23-2024 21:59-0400 SaO2% (BldA) [Mass fraction] 99 % [facility] 01-23-2024 21:59-0400 Systolic blood pressure 112 mm[Hg] [facility] 12-25-2023 11:16-0400 Blood Pressure Cuff Size DR JESSICA SALAZAR DO [facility] 12-25-2023 11:16-[address] JESSICA SALAZAR DO [facility] 12-25-2023 11:16-[address] JESSICA SALAZAR DO [facility] 12-25-2023 11:16-0400 Body temperature 98.06 [degF] DR JESSICA SALAZAR DO [facility] 12-25-2023 11:16-0400 Diastolic Blood Pressure Non-Invasive 69 mm[Hg] DR JESSICA SALAZAR DO [facility] 12-25-2023 11:16-0400 Heart rate 66 /min DR JESSICA SALAZAR DO [facility] 12-25-2023 11:16-0400 Respiratory rate 18 /min DR JESSICA SALAZAR DO [facility] 12-25-2023 11:16-0400 Systolic Blood Pressure Non-Invasive 119 mm[Hg] DR JESSICA SALAZAR DO [facility] 03-06-2023 13:59-0400 Body temperature 98.6 [degF] DR JESSICA SALAZAR DO [facility] 03-06-2023 13:59-0400 Body weight [address] JESSICA SALAZAR DO [facility] 03-06-2023 13:59-0400 Diastolic Blood Pressure Non-Invasive [address] JESSICA SALAZAR DO [facility] 03-06-2023 13:59-0400 Heart rate 70 /min DR JESSICA SALAZAR DO [facility] 03-06-2023 13:59-0400 Respiratory rate 18 /min DR JESSICA SALAZAR DO [facility] 03-06-2023 13:59-0400 Systolic Blood Pressure Non-Invasive [address] JESSICA SALAZAR DO [facility] 03-04-2023 21:20-0400 Blood Pressure Cuff Size DR JESSICA SALAZAR DO [facility] 03-04-2023 21:20-[address] JESSICA SALAZAR DO [facility] 03-04-2023 21:20-[address] JESSICA SALAZAR DO [facility] 03-04-2023 21:20-0400 Body height [address] JESSICA SALAZAR DO [facility] 03-04-2023 21:20-0400 Body weight 76.[address] JESSICA SALAZAR DO [facility] 03-04-2023 21:20-0400 Diastolic Blood Pressure Non-Invasive [address] JESSICA SALAZAR DO [facility] 03-04-2023 21:20-0400 Heart rate 60 /min DR JESSICA SALAZAR DO [facility] 03-04-2023 21:20-0400 Reason For Taking VItal Signs DR JESSICA SALAZAR DO [facility] 03-04-2023 21:20-0400 Respiratory rate 18 /min DR JESSICA SALAZAR DO [facility] 03-04-2023 21:20-0400 Systolic Blood Pressure Non-Invasive [address] JESSICA SALAZAR DO [facility] 03-03-2023 11:48-0400 Body height 160 cm Jennifer Christina MD Work Phone: [facility] 03-03-2023 11:48-0400 Body weight 76.66 kg Jennifer Christina MD Work Phone: [facility] 03-03-2023 11:48-0400 Diastolic blood pressure 74 mm[Hg] Jennifer Christina MD Work Phone: [facility] 03-03-2023 11:48-0400 Heart rate 80 /min Jennifer Christina MD Work Phone: [facility] 03-03-2023 11:48-0400 Respiratory rate 18 /min Jennifer Christina MD Work Phone: [facility] 03-03-2023 11:48-0400 SaO2% (BldA) [Mass fraction] 97 % Jennifer Christina MD Work Phone: [facility] 03-03-2023 11:48-0400 Systolic blood pressure 116 mm[Hg] Jennifer Christina MD Work Phone: [facility] 02-07-2023 09:01-0400 Body height 160 cm Jennifer Christina MD Work Phone: [facility] 02-07-2023 09:01-0400 Body weight 76.66 kg Jennifer Christina MD Work Phone: [facility] 02-07-2023 09:01-0400 Diastolic blood pressure 65 mm[Hg] Jennifer Christina MD Work Phone: [facility] 02-07-2023 09:01-0400 Heart rate 77 /min Jennifer Christina MD Work Phone: [facility] 02-07-2023 09:01-0400 Respiratory rate 12 /min Jennifer Christina MD Work Phone: [facility] 02-07-2023 09:01-0400 SaO2% (BldA) [Mass fraction] 98 % Jennifer Christina MD Work Phone: [facility] 02-07-2023 09:01-0400 Systolic blood pressure 113 mm[Hg] Jennifer Christina MD Work Phone: [facility] 12-26-2022 11:37-0400 Body temperature 98.24 [degF] DR RONALDO CANALES MD [facility] 12-26-2022 11:37-0400 Diastolic Blood Pressure Non-Invasive [address] RONALDO CANALES MD [facility] 12-26-2022 11:37-0400 Heart rate 91 /min DR RONALDO CANALES MD [facility] 12-26-2022 11:37-0400 Respiratory rate 16 /min DR RONALDO CANALES MD [facility] 12-26-2022 11:37-0400 Systolic Blood Pressure Non-Invasive [address] RONALDO CANALES MD [facility] 11-12-2022 09:12-0500 Body weight 78.7 kg Kathy Zayas MD Work Phone: [facility] 11-12-2022 09:12-0500 Diastolic blood pressure 82 mm[Hg] Kathy Zayas MD Work Phone: [facility] 11-12-2022 09:12-0500 Heart rate 75 /min Kathy Zayas MD Work Phone: [facility] 11-12-2022 09:12-0500 SaO2% (BldA) [Mass fraction] 100 % Kathy Zayas MD Work Phone: [facility] 11-12-2022 09:12-0500 Systolic blood pressure 115 mm[Hg] Kathy Zayas MD Work Phone: [facility] 11-01-2022 09:34-0500 Body height 160 cm Maria Luisa Tyler MD Work Phone: [facility] 11-01-2022 09:34-0500 Body temperature 98.2 [degF] Maria Luisa Tyler MD Work Phone: [facility] 11-01-2022 09:34-0500 Body weight 78.47 kg Maria Luisa Tyler MD Work Phone: [facility] 11-01-2022 09:34-0500 Diastolic blood pressure 60 mm[Hg] Maria Luisa Tyler MD Work Phone: [facility] 11-01-2022 09:34-0500 Heart rate 80 /min Maria Luisa Tyler MD Work Phone: [facility] 11-01-2022 09:34-0500 Respiratory rate 13 /min Maria Luisa Tyler MD Work Phone: [facility] 11-01-2022 09:34-0500 Systolic blood pressure 118 mm[Hg] Maria Luisa Tyler MD Work Phone: [facility] 10-19-2022 11:17-0500 Body weight 76.66 kg Shira Older EXERCISE TEACHER.ULTRASOUND SPECIALIST Work Phone: [facility] 10-19-2022 11:17-0500 Diastolic blood pressure 74 mm[Hg] Shira Older EXERCISE TEACHER.ULTRASOUND SPECIALIST Work Phone: [facility] 10-19-2022 11:17-0500 Heart rate 82 /min Shira Older EXERCISE TEACHER.ULTRASOUND SPECIALIST Work Phone: [facility] 10-19-2022 11:17-0500 SaO2% (BldA) [Mass fraction] 98 % Shira Older EXERCISE TEACHER.ULTRASOUND SPECIALIST Work Phone: [facility] 10-19-2022 11:17-0500 Systolic blood pressure 108 mm[Hg] Shiar Older EXERCISE TEACHER.ULTRASOUND SPECIALIST Work Phone: [facility] 10-07-2022 15:38-0500 Diastolic Blood Pressure Non-Invasive [address] MAVIS SHEPARD MD [facility] 10-07-2022 15:38-0500 Heart rate 84 /min DR MAVIS SHEPARD MD [facility] 10-07-2022 15:38-0500 Respiratory rate 20 /min DR MAVIS SHEPARD MD [facility] 10-07-2022 15:38-0500 Systolic Blood Pressure Non-Invasive [address] MAVIS SHEPARD MD [facility] 10-07-2022 12:34-0500 Body height 77.[address] MAVIS SHEPARD MD [facility] 10-07-2022 12:34-0500 Body temperature 98.24 [degF] DR MAVIS SHEPARD MD [facility] 10-07-2022 12:34-0500 Body weight 77.[address] MAVIS SHEPARD MD [facility] 10-07-2022 12:34-0500 Diastolic Blood Pressure Non-Invasive [address] MAVIS SHEPARD MD [facility] 10-07-2022 12:34-0500 Heart rate 83 /min DR MAVIS SHEPARD MD [facility] 10-07-2022 12:34-0500 Respiratory rate 20 /min DR MAVIS SHEPARD MD [facility] 10-07-2022 12:34-0500 Systolic Blood Pressure Non-Invasive [address] MAVIS SHEPARD MD [facility] 09-27-2022 21:37-0500 Body temperature 98.06 [degF] CEZAR FRENCH MD [facility] 09-27-2022 21:37-0500 Diastolic Blood Pressure Non-Invasive 82 1 CEZAR FRENCH MD [facility] 09-27-2022 21:37-0500 Heart rate 77 /min CEZAR FRENCH MD [facility] 09-27-2022 21:37-0500 Respiratory rate 18 /min CEZAR FRENCH MD [facility] 09-27-2022 21:37-0500 Systolic Blood Pressure Non-Invasive 115 1 CEZAR FRENCH MD [facility] 09-17-2022 16:42-0500 Diastolic blood pressure 75 mm[Hg] Dr. Roger Cohen Work Phone: [facility] Work Phone: 09-17-2022 16:42-0500 Heart rate 88 /min Dr. Roger Cohen Work Phone: [facility] Work Phone: 09-17-2022 16:42-0500 Respiratory rate 16 /min Dr. Roger Cohen Work Phone: [facility] Work Phone: 09-17-2022 16:42-0500 SaO2% (BldA) [Mass fraction] 99 % Dr. Roger Cohen Work Phone: [facility] Work Phone: 09-17-2022 16:42-0500 Systolic blood pressure 110 mm[Hg] Dr. Roger Cohen Work Phone: [facility] Work Phone: 09-17-2022 11:49-0500 Body height 160.[address] Roger Cohen Work Phone: [facility] Work Phone: 09-17-2022 11:49-0500 Body mass index (BMI) [Ratio] 28.3 kg/m2 Dr. Roger Cohen Work Phone: [facility] Work Phone: 09-17-2022 11:49-0500 Body temperature 97.8 [degF] Dr. Roger Cohen Work Phone: [facility] Work Phone: 09-17-2022 11:49-0500 Body weight 72.[address] Roger Cohen Work Phone: [facility] Work Phone: 08-24-2022 09:19-0500 Body mass index (BMI) [Ratio] 28.7 kg/m2 Dr. Roger Cohen Work Phone: [facility] Work Phone: 08-24-2022 09:19-0500 Body weight 73.[address] Roger Cohen Work Phone: [facility] Work Phone: 08-24-2022 09:19-0500 Diastolic blood pressure 68 mm[Hg] Dr. Roger Cohen Work Phone: [facility] Work Phone: 08-24-2022 09:19-0500 Systolic blood pressure 110 mm[Hg] Dr. Roger Cohen Work Phone: [facility] Work Phone: 08-03-2022 09:22-0400 Body temperature 97.2 [degF] Livia Trivedi APRN.ULTRASOUND SPECIALIST Work Phone: [facility] 08-03-2022 09:22-0400 Body weight 72.76 kg Livia Trivedi EXERCISE TEACHER.ULTRASOUND SPECIALIST Work Phone: [facility] 08-03-2022 09:22-0400 Diastolic blood pressure 76 mm[Hg] Livia Trivedi EXERCISE TEACHER.ULTRASOUND SPECIALIST Work Phone: [facility] 08-03-2022 09:22-0400 Heart rate 73 /min Livia Trivedi EXERCISE TEACHER.ULTRASOUND SPECIALIST Work Phone: [facility] 08-03-2022 09:22-0400 Respiratory rate 18 /min Livia Trivedi EXERCISE TEACHER.ULTRASOUND SPECIALIST Work Phone: [facility] 08-03-2022 09:22-0400 SaO2% (BldA) [Mass fraction] 97 % Livia Trivedi EXERCISE TEACHER.ULTRASOUND SPECIALIST Work Phone: [facility] 08-03-2022 09:22-0400 Systolic blood pressure 102 mm[Hg] Livia Trivedi EXERCISE TEACHER.ULTRASOUND SPECIALIST Work Phone: [facility] 07-07-2022 10:36-0400 Body mass index (BMI) [Ratio] 27.4 kg/m2 Dr. Roger Cohen Work Phone: [facility] Work Phone: 07-07-2022 10:36-0400 Body weight 70.[address] Roger Cohen Work Phone: [facility] Work Phone: 07-07-2022 10:36-0400 Diastolic blood pressure 84 mm[Hg] Dr. Roger Cohen Work Phone: [facility] Work Phone: 07-07-2022 10:36-0400 Systolic blood pressure 120 mm[Hg] Dr. Roger Cohen Work Phone: [facility] Work Phone: 06-26-2022 08:44-0400 Diastolic blood pressure 53 mm[Hg] Dr. Roger Cohen Work Phone: [facility] Work Phone: 06-26-2022 08:44-0400 Heart rate 73 /min Dr. Roger Cohen Work Phone: [facility] Work Phone: 06-26-2022 08:44-0400 Systolic blood pressure 99 mm[Hg] Dr. Roger Cohen Work Phone: [facility] Work Phone: 06-25-2022 20:13-0400 Body temperature 98 [degF] Dr. Roger Cohen Work Phone: [facility] Work Phone: 06-25-2022 20:13-0400 Diastolic blood pressure 57 mm[Hg] Dr. Roger Cohen Work Phone: [facility] Work Phone: 06-25-2022 20:13-0400 Heart rate 67 /min Dr. Roger Cohen Work Phone: [facility] Work Phone: 06-25-2022 20:13-0400 Respiratory rate 16 /min Dr. Roger Cohen Work Phone: [facility] Work Phone: 06-25-2022 20:13-0400 SaO2% (BldA) [Mass fraction] 98 % Dr. Roger Cohen Work Phone: [facility] Work Phone: 06-25-2022 20:13-0400 Systolic blood pressure 106 mm[Hg] Dr. Roger Cohen Work Phone: [facility] Work Phone: 06-25-2022 16:57-0400 Diastolic blood pressure 65 mm[Hg] Dr. Roger Cohen Work Phone: [facility] Work Phone: 06-25-2022 16:57-0400 Systolic blood pressure 118 mm[Hg] Dr. Roger Cohen Work Phone: [facility] Work Phone: 06-24-2022 16:03-0400 Body height 160.[address] Roger Cohen Work Phone: [facility] Work Phone: 06-24-2022 16:03-0400 Body mass index (BMI) [Ratio] 31.2 kg/m2 Dr. Roger Cohen Work Phone: [facility] Work Phone: 06-24-2022 16:03-0400 Body weight [address] Roger Cohen Work Phone: [facility] Work Phone: 06-23-2022 15:11-0400 Body temperature 98.4 [degF] Yvonne Praisler-Wood EXERCISE TEACHER.ULTRASOUND SPECIALIST Work Phone: [facility] 06-23-2022 15:11-0400 Body weight 80.83 kg Yvonne Praisler-Wood EXERCISE TEACHER.ULTRASOUND SPECIALIST Work Phone: [facility] 06-23-2022 15:11-0400 Diastolic blood pressure 76 mm[Hg] Yvonne Praisler-Wood EXERCISE TEACHER.ULTRASOUND SPECIALIST Work Phone: [facility] 06-23-2022 15:11-0400 Heart rate 95 /min Yvonne Praisler-Wood EXERCISE TEACHER.ULTRASOUND SPECIALIST Work Phone: [facility] 06-23-2022 15:11-0400 Respiratory rate 21 /min Yvonne Praisler-Wood EXERCISE TEACHER.ULTRASOUND SPECIALIST Work Phone: [facility] 06-23-2022 15:11-0400 SaO2% (BldA) [Mass fraction] 98 % Yvonne Praisler-Wood EXERCISE TEACHER.ULTRASOUND SPECIALIST Work Phone: [facility] 06-23-2022 15:11-0400 Systolic blood pressure 104 mm[Hg] Yvonne Praisler-Wood EXERCISE TEACHER.ULTRASOUND SPECIALIST Work Phone: [facility] 06-20-2022 21:17-0400 Heart rate 99 /min Dr. Roger Cohen Work Phone: [facility] Work Phone: 06-20-2022 21:17-0400 SaO2% (BldA) [Mass fraction] 96 % Dr. Roger Cohen Work Phone: [facility] Work Phone: 06-20-2022 20:56-0400 Body temperature 99.6 [degF] Dr. Roger Cohen Work Phone: [facility] Work Phone: 06-20-2022 20:56-0400 Diastolic blood pressure 55 mm[Hg] Dr. Roger Cohen Work Phone: [facility] Work Phone: 06-20-2022 20:56-0400 Systolic blood pressure 105 mm[Hg] Dr. Roger oChen Work Phone: [facility] Work Phone: 06-20-2022 20:43-0400 Body height 160.[address] Roger Cohen Work Phone: [facility] Work Phone: 06-20-2022 20:43-0400 Body mass index (BMI) [Ratio] 33.5 kg/m2 Dr. Roger Cohen Work Phone: [facility] Work Phone: 06-20-2022 20:43-0400 Body weight [address] Roger Cohen Work Phone: [facility] Work Phone: 06-20-2022 13:15-0400 Heart rate 98 /min Emily Jacobs MD Work Phone: [facility] 06-20-2022 08:37-0400 Body temperature 98.71 [degF] Emily Jacobs MD Work Phone: [facility] 06-20-2022 08:37-0400 Diastolic blood pressure 44 mm[Hg] Emily Jacobs MD Work Phone: [facility] 06-20-2022 08:37-0400 Respiratory rate 18 /min Emily Jacobs MD Work Phone: [facility] 06-20-2022 08:37-0400 SaO2% (BldA) [Mass fraction] 98 % Emily Jacobs MD Work Phone: [facility] 06-20-2022 08:37-0400 Systolic blood pressure 93 mm[Hg] Emily Jacobs MD Work Phone: [facility] 06-19-2022 18:17-0400 Body height 160 cm Emily Jacobs MD Work Phone: [facility] 06-19-2022 18:17-0400 Body mass index (BMI) [Ratio] 31.71 kg/m2 Emily Jacobs MD Work Phone: [facility] 06-19-2022 18:17-0400 Body weight 81.19 kg Emily Jacobs MD Work Phone: [facility] 06-19-2022 11:13-0400 Body temperature 98.4 [degF] Dr. Roger Cohen Work Phone: [facility] Work Phone: 06-19-2022 11:13-0400 Diastolic blood pressure 61 mm[Hg] Dr. Roegr Cohen Work Phone: [facility] Work Phone: 06-19-2022 11:13-0400 Heart rate 101 /min Dr. Roger Cohen Work Phone: [facility] Work Phone: 06-19-2022 11:13-0400 SaO2% (BldA) [Mass fraction] 98 % Dr. Roger Cohen Work Phone: [facility] Work Phone: 06-19-2022 11:13-0400 Systolic blood pressure 111 mm[Hg] Dr. Roger Cohen Work Phone: [facility] Work Phone: 06-18-2022 21:45-0400 Body height 160.[address] Roger Cohen Work Phone: [facility] Work Phone: 06-18-2022 21:45-0400 Body mass index (BMI) [Ratio] 31.8 kg/m2 Dr. Roger Cohen Work Phone: [facility] Work Phone: 06-18-2022 21:45-0400 Body weight 81.[address] Roger Cohen Work Phone: [facility] Work Phone: 06-18-2022 12:26-0400 Body height 160.[address] Roger Cohen Work Phone: [facility] Work Phone: 06-18-2022 12:26-0400 Body mass index (BMI) [Ratio] 31.6 kg/m2 Dr. Roger Cohen Work Phone: [facility] Work Phone: 06-18-2022 12:26-0400 Body weight 81.[address] Roger Cohen Work Phone: [facility] Work Phone: 06-18-2022 11:39-0400 Body mass index (BMI) [Ratio] 31.7 kg/m2 Dr. Roger Cohen Work Phone: [facility] Work Phone: 06-18-2022 11:39-0400 Body weight 81.[address] Roger Cohen Work Phone: [facility] Work Phone: 06-18-2022 11:39-0400 Diastolic blood pressure 70 mm[Hg] Dr. Roger Cohen Work Phone: [facility] Work Phone: 06-18-2022 11:39-0400 Systolic blood pressure 112 mm[Hg] Dr. Roger Cohen Work Phone: [facility] Work Phone: 06-04-2022 15:24-0400 Body mass index (BMI) [Ratio] 30.8 kg/m2 Dr. Roger Cohen Work Phone: [facility] Work Phone: 06-04-2022 15:24-0400 Body weight 78.[address] Roger Cohen Work Phone: [facility] Work Phone: 05-21-2022 11:49-0400 Body weight 78.[address] Roger Cohen Work Phone: [facility] Work Phone: 05-21-2022 11:49-0400 Diastolic blood pressure 70 mm[Hg] Dr. Roger Cohen Work Phone: [facility] Work Phone: 05-21-2022 11:49-0400 Systolic blood pressure 126 mm[Hg] Dr. Roger Cohen Work Phone: [facility] Work Phone: 05-21-2022 11:19-0400 Body height 160.[address] Roger Cohen Work Phone: [facility] Work Phone: 05-07-2022 11:51-0400 Body mass index (BMI) [Ratio] 30.2 kg/m2 Dr. Roger Cohen Work Phone: [facility] Work Phone: 05-07-2022 11:51-0400 Body weight 77.[address] Roger Cohen Work Phone: [facility] Work Phone: 05-07-2022 11:51-0400 Diastolic blood pressure 66 mm[Hg] Dr. Roger Cohen Work Phone: [facility] Work Phone: 05-07-2022 11:51-0400 Systolic blood pressure 110 mm[Hg] Dr. Roger Cohen Work Phone: [facility] Work Phone: 04-09-2022 11:42-0400 Body mass index (BMI) [Ratio] 29.4 kg/m2 Dr. Roger Cohen Work Phone: [facility] Work Phone: 04-09-2022 11:42-0400 Body weight 75.[address] Roger Cohen Work Phone: [facility] Work Phone: 04-09-2022 11:42-0400 Diastolic blood pressure 68 mm[Hg] Dr. Roger Cohen Work Phone: [facility] Work Phone: 04-09-2022 11:42-0400 Systolic blood pressure 104 mm[Hg] Dr. Roger Cohen Work Phone: [facility] Work Phone: 03-27-2022 12:09-0400 Diastolic blood pressure 74 mm[Hg] Dr. Roger Cohen Work Phone: [facility] Work Phone: 03-27-2022 12:09-0400 Heart rate 72 /min Dr. Roger Cohen Work Phone: [facility] Work Phone: 03-27-2022 12:09-0400 Respiratory rate 15 /min Dr. Roger Cohen Work Phone: [facility] Work Phone: 03-27-2022 12:09-0400 SaO2% (BldA) [Mass fraction] 98 % Dr. Roger Cohen Work Phone: [facility] Work Phone: 03-27-2022 12:09-0400 Systolic blood pressure 126 mm[Hg] Dr. Roger Cohen Work Phone: [facility] Work Phone: 03-27-2022 07:38-0400 Body mass index (BMI) [Ratio] 28.3 kg/m2 Dr. Roger Cohen Work Phone: [facility] Work Phone: 03-27-2022 07:38-0400 Body temperature 97.8 [degF] Dr. Roger Cohen Work Phone: [facility] Work Phone: 03-27-2022 07:38-0400 Body weight 72.[address] Roger Cohen Work Phone: [facility] Work Phone: 03-11-2022 10:32-0400 Body mass index (BMI) [Ratio] 29.2 kg/m2 Dr. Roger Cohen Work Phone: [facility] Work Phone: 03-11-2022 10:32-0400 Body weight 75.[address] Roger Cohen Work Phone: [facility] Work Phone: 03-11-2022 10:32-0400 Diastolic blood pressure 80 mm[Hg] Dr. Roger Cohen Work Phone: [facility] Work Phone: 03-11-2022 10:32-0400 Systolic blood pressure 130 mm[Hg] Dr. Roger Cohen Work Phone: [facility] Work Phone: 02-12-2022 07:26-0400 Body temperature 98.2 [degF] Dr. Roger Cohen Work Phone: [facility] Work Phone: 02-12-2022 07:26-0400 Diastolic blood pressure 59 mm[Hg] Dr. Roger Cohen Work Phone: [facility] Work Phone: 02-12-2022 07:26-0400 Heart rate 71 /min Dr. Roger Cohen Work Phone: [facility] Work Phone: 02-12-2022 07:26-0400 Respiratory rate 16 /min Dr. Roger Cohen Work Phone: [facility] Work Phone: 02-12-2022 07:26-0400 SaO2% (BldA) [Mass fraction] 99 % Dr. Roger Cohen Work Phone: [facility] Work Phone: 02-12-2022 07:26-0400 Systolic blood pressure 106 mm[Hg] Dr. Roger Cohen Work Phone: [facility] Work Phone: 02-11-2022 16:22-0400 Body height 160.[address] Roger Cohen Work Phone: [facility] Work Phone: 02-11-2022 16:22-0400 Body mass index (BMI) [Ratio] 28.8 kg/m2 Dr. Roger Cohen Work Phone: [facility] Work Phone: 02-11-2022 16:22-0400 Body weight 73.[address] Roger Cohen Work Phone: [facility] Work Phone: 02-11-2022 15:37-0400 Body temperature 98 [degF] Dr. Roger Cohen Work Phone: [facility] Work Phone: 02-11-2022 15:37-0400 Diastolic blood pressure 54 mm[Hg] Dr. Roger Cohen Work Phone: [facility] Work Phone: 02-11-2022 15:37-0400 Heart rate 78 /min Dr. Roger Cohen Work Phone: [facility] Work Phone: 02-11-2022 15:37-0400 Respiratory rate 19 /min Dr. Roger Cohen Work Phone: [facility] Work Phone: 02-11-2022 15:37-0400 SaO2% (BldA) [Mass fraction] 100 % Dr. Roger Cohen Work Phone: [facility] Work Phone: 02-11-2022 15:37-0400 Systolic blood pressure 110 mm[Hg] Dr. Roger Cohen Work Phone: [facility] Work Phone: 02-11-2022 10:26-0400 Body height 160.[address] Roger Cohen Work Phone: [facility] Work Phone: 02-11-2022 10:26-0400 Body mass index (BMI) [Ratio] 28.9 kg/m2 Dr. Roger Cohen Work Phone: [facility] Work Phone: 02-11-2022 10:26-0400 Body weight [address] Roger Cohen Work Phone: [facility] Work Phone: 02-10-2022 16:14-0400 Body mass index (BMI) [Ratio] 28.8 kg/m2 Dr. Roger Cohen Work Phone: [facility] Work Phone: 02-10-2022 16:14-0400 Body weight 73.[address] Roger Cohen Work Phone: [facility] Work Phone: 02-10-2022 16:14-0400 Diastolic blood pressure 82 mm[Hg] Dr. Roger Cohen Work Phone: [facility] Work Phone: 02-10-2022 16:14-0400 Systolic blood pressure 114 mm[Hg] Dr. Roger Cohen Work Phone: [facility] Work Phone: 02-10-2022 16:14-0400 Body mass index (BMI) [Ratio] 28.8 kg/m2 Dr. Roger Cohen Work Phone: [facility] Work Phone: 02-10-2022 16:14-0400 Body weight 73.[address] Roger Cohen Work Phone: [facility] Work Phone: 02-10-2022 16:14-0400 Diastolic blood pressure 82 mm[Hg] Dr. Roger Cohen Work Phone: [facility] Work Phone: 02-10-2022 16:14-0400 Systolic blood pressure 114 mm[Hg] Dr. Roger Cohen Work Phone: [facility] Work Phone: 01-27-2022 15:50-0400 Body mass index (BMI) [Ratio] 28.8 kg/m2 Dr. Roger Cohen Work Phone: [facility] Work Phone: 01-27-2022 15:50-0400 Body weight 73.[address] Roger Cohen Work Phone: [facility] Work Phone: 01-27-2022 15:50-0400 Diastolic blood pressure 80 mm[Hg] Dr. Roger Cohen Work Phone: [facility] Work Phone: 01-27-2022 15:50-0400 Systolic blood pressure 138 mm[Hg] Dr. Roger Cohen Work Phone: [facility] Work Phone: 01-27-2022 15:50-0400 Body mass index (BMI) [Ratio] 28.8 kg/m2 Dr. Roger Cohen Work Phone: [facility] Work Phone: 01-27-2022 15:50-0400 Body weight 73.[address] Roger Cohen Work Phone: [facility] Work Phone: 01-27-2022 15:50-0400 Diastolic blood pressure 80 mm[Hg] Dr. Roger Cohen Work Phone: [facility] Work Phone: 01-27-2022 15:50-0400 Systolic blood pressure 138 mm[Hg] Dr. Roger Cohen Work Phone: [facility] Work Phone: 01-14-2022 11:14-0400 Body height 160.[address] Roger Cohen Work Phone: [facility] Work Phone: 01-14-2022 11:14-0400 Body mass index (BMI) [Ratio] 28.2 kg/m2 Dr. Roger Cohen Work Phone: [facility] Work Phone: 01-14-2022 11:14-0400 Body weight 72.[address] Roger Cohen Work Phone: [facility] Work Phone: 01-07-2022 15:22-0400 Body height 160.[address] Roger Cohen Work Phone: [facility] Work Phone: 01-07-2022 15:22-0400 Body mass index (BMI) [Ratio] 28 kg/m2 Dr. Roger Cohen Work Phone: [facility] Work Phone: 01-07-2022 15:22-0400 Body temperature 98 [degF] Dr. Roger Cohen Work Phone: [facility] Work Phone: 01-07-2022 15:22-0400 Body weight 71.[address] Roger Cohen Work Phone: [facility] Work Phone: 01-07-2022 15:22-0400 Diastolic blood pressure 56 mm[Hg] Dr. Roger Cohen Work Phone: [facility] Work Phone: 01-07-2022 15:22-0400 Heart rate 83 /min Dr. Roger Cohen Work Phone: [facility] Work Phone: 01-07-2022 15:22-0400 Respiratory rate 15 /min Dr. Roger Cohen Work Phone: [facility] Work Phone: 01-07-2022 15:22-0400 SaO2% (BldA) [Mass fraction] 97 % Dr. Roger Cohen Work Phone: [facility] Work Phone: 01-07-2022 15:22-0400 Systolic blood pressure 130 mm[Hg] Dr. Roger Cohen Work Phone: [facility] Work Phone: 01-04-2022 12:18-0400 Diastolic blood pressure 42 mm[Hg] Dr. Roger Cohen Work Phone: [facility] Work Phone: 01-04-2022 12:18-0400 Heart rate 87 /min Dr. Roger Cohen Work Phone: [facility] Work Phone: 01-04-2022 12:18-0400 Respiratory rate 16 /min Dr. Roger Cohen Work Phone: [facility] Work Phone: 01-04-2022 12:18-0400 SaO2% (BldA) [Mass fraction] 99 % Dr. Roger Cohen Work Phone: [facility] Work Phone: 01-04-2022 12:18-0400 Systolic blood pressure 116 mm[Hg] Dr. Roger Cohen Work Phone: [facility] Work Phone: 01-04-2022 11:17-0400 Body mass index (BMI) [Ratio] 28.1 kg/m2 Dr. Roger Cohen Work Phone: [facility] Work Phone: 01-04-2022 11:17-0400 Body temperature 97.8 [degF] Dr. Roger Cohen Work Phone: [facility] Work Phone: 01-04-2022 11:17-0400 Body weight 72.[address] Roger Cohen Work Phone: [facility] Work Phone: 01-04-2022 09:33-0400 Body mass index (BMI) [Ratio] 26.4 kg/m2 Dr. Roger Cohen Work Phone: [facility] Work Phone: 01-04-2022 09:33-0400 Body weight 67.[address] Roger Cohen Work Phone: [facility] Work Phone: 01-04-2022 09:33-0400 Diastolic blood pressure 82 mm[Hg] Dr. Roger Cohen Work Phone: [facility] Work Phone: 01-04-2022 09:33-0400 Systolic blood pressure 112 mm[Hg] Dr. Roger Cohen Work Phone: [facility] Work Phone: 12-28-2021 16:56-0400 Body temperature 98 [degF] Dr. Roger Cohen Work Phone: [facility] Work Phone: 12-28-2021 16:56-0400 Diastolic blood pressure 56 mm[Hg] Dr. Roger Cohen Work Phone: [facility] Work Phone: 12-28-2021 16:56-0400 Heart rate 68 /min Dr. Roger Cohen Work Phone: [facility] Work Phone: 12-28-2021 16:56-0400 Respiratory rate 16 /min Dr. Roger Cohen Work Phone: [facility] Work Phone: 12-28-2021 16:56-0400 SaO2% (BldA) [Mass fraction] 99 % Dr. Roger Cohen Work Phone: [facility] Work Phone: 12-28-2021 16:56-0400 Systolic blood pressure 111 mm[Hg] Dr. Roger Cohen Work Phone: [facility] Work Phone: 12-28-2021 13:43-0400 Body mass index (BMI) [Ratio] 27.4 kg/m2 Dr. Roger Cohen Work Phone: [facility] Work Phone: 12-28-2021 13:43-0400 Body weight 70.[address] Roger Cohen Work Phone: [facility] Work Phone: 12-20-2021 15:58-0400 Diastolic blood pressure 63 mm[Hg] DR RONALDO CANALES MD [facility] 12-20-2021 15:58-0400 Heart rate 73 /min DR RONALDO CANALES MD [facility] 12-20-2021 15:58-0400 Reason For Taking VItal Signs DR RONALDO CANALES MD [facility] 12-20-2021 15:58-0400 Respiratory rate 16 /min DR RONALDO CANALES MD [facility] 12-20-2021 15:58-0400 Systolic blood pressure 98 mm[Hg] DR RONALDO CANALES MD [facility] 12-20-2021 14:52-0400 Diastolic blood pressure 65 mm[Hg] DR RONALDO CANALES MD [facility] 12-20-2021 14:52-0400 Heart rate 77 /min DR RONALDO CANALES MD [facility] 12-20-2021 14:52-0400 Reason For Taking VItal Signs DR RONALDO CANALES MD [facility] 12-20-2021 14:52-0400 Respiratory rate 16 /min DR RONALDO CANALES MD [facility] 12-20-2021 14:52-0400 Systolic blood pressure 90 mm[Hg] DR RONALDO CANALES MD [facility] 12-20-2021 14:12-0400 Body temperature 98.24 [degF] DR RONALDO CANALES MD [facility] 12-20-2021 14:12-0400 Diastolic blood pressure 69 mm[Hg] DR RONALDO CANALES MD [facility] 12-20-2021 14:12-0400 Heart rate 78 /min DR RONALDO CANALES MD [facility] 12-20-2021 14:12-0400 Respiratory rate 16 /min DR RONALDO CANALES MD [facility] 12-20-2021 14:12-0400 Systolic blood pressure 100 mm[Hg] DR RONALDO CANALES MD [facility] 12-15-2021 09:37-0400 Body mass index (BMI) [Ratio] 26.5 kg/m2 Dr. Roger Cohen Work Phone: [facility] Work Phone: 12-15-2021 09:37-0400 Body temperature 98 [degF] Dr. Roger Cohen Work Phone: [facility] Work Phone: 12-15-2021 09:37-0400 Body weight 68.[address] Roger Cohen Work Phone: [facility] Work Phone: 12-15-2021 09:37-0400 Diastolic blood pressure 69 mm[Hg] Dr. Roger Cohen Work Phone: [facility] Work Phone: 12-15-2021 09:37-0400 Heart rate 79 /min Dr. Roger Cohen Work Phone: [facility] Work Phone: 12-15-2021 09:37-0400 Respiratory rate 16 /min Dr. Roger Cohen Work Phone: [facility] Work Phone: 12-15-2021 09:37-0400 SaO2% (BldA) [Mass fraction] 98 % Dr. Roger Cohen Work Phone: [facility] Work Phone: 12-15-2021 09:37-0400 Systolic blood pressure 117 mm[Hg] Dr. Roger Cohen Work Phone: [facility] Work Phone: 10-09-2021 09:43-0500 Heart rate 58 /min Dr. Roger Cohen Work Phone: [facility] Work Phone: 10-09-2021 09:43-0500 SaO2% (BldA) [Mass fraction] 98 % Dr. Roger Cohen Work Phone: [facility] Work Phone: 10-09-2021 08:10-0500 Body mass index (BMI) [Ratio] 25.7 kg/m2 Dr. Roger Cohen Work Phone: [facility] Work Phone: 10-09-2021 08:10-0500 Body temperature 96.5 [degF] Dr. Roger Cohen Work Phone: [facility] Work Phone: 10-09-2021 08:10-0500 Body weight 65.[address] Roger Cohen Work Phone: [facility] Work Phone: 10-09-2021 08:10-0500 Diastolic blood pressure 73 mm[Hg] Dr. Roger Cohen Work Phone: [facility] Work Phone: 10-09-2021 08:10-0500 Respiratory rate 18 /min Dr. Roger Cohen Work Phone: [facility] Work Phone: 10-09-2021 08:10-0500 Systolic blood pressure 122 mm[Hg] Dr. Roger Cohen Work Phone: [facility] Work Phone: 10-07-2021 22:32-0500 Diastolic blood pressure 70 mm[Hg] Dr. Roger Cohen Work Phone: [facility] Work Phone: 10-07-2021 22:32-0500 Heart rate 79 /min Dr. Roger Cohen Work Phone: [facility] Work Phone: 10-07-2021 22:32-0500 Respiratory rate 18 /min Dr. Roger Cohen Work Phone: [facility] Work Phone: 10-07-2021 22:32-0500 SaO2% (BldA) [Mass fraction] 96 % Dr. Roger Cohen Work Phone: [facility] Work Phone: 10-07-2021 22:32-0500 Systolic blood pressure 116 mm[Hg] Dr. Roger Cohen Work Phone: [facility] Work Phone: 10-07-2021 18:27-0500 Body mass index (BMI) [Ratio] 25.7 kg/m2 Dr. Roger Cohen Work Phone: [facility] Work Phone: 10-07-2021 18:27-0500 Body temperature 97.9 [degF] Dr. Roger Cohen Work Phone: [facility] Work Phone: 10-07-2021 18:27-0500 Body weight 65.[address] Roger Cohen Work Phone: [facility] Work Phone: 10-07-2021 17:43-0500 Body height 160 cm FANNY JEAN MD [facility] 10-07-2021 17:43-0500 Body temperature 98.24 [degF] FANNY JEAN MD [facility] 10-07-2021 17:43-0500 Diastolic blood pressure 70 mm[Hg] FANNY JEAN MD [facility] 10-07-2021 17:43-0500 Heart rate 82 /min FANNY JEAN MD [facility] 10-07-2021 17:43-0500 Respiratory rate 20 /min FANNY JEAN MD [facility] 10-07-2021 17:43-0500 Systolic blood pressure 127 mm[Hg] FANNY JEAN MD [facility] 07-11-2021 00:11-0400 Diastolic blood pressure 51 mm[Hg] Nicolás Wiley MD Work Phone: [facility] Work Phone: 07-11-2021 00:11-0400 Heart rate 64 /min Nicolás Wiley MD Work Phone: [facility] Work Phone: 07-11-2021 00:11-0400 Respiratory rate 18 /min Nicolás Wiley MD Work Phone: [facility] Work Phone: 07-11-2021 00:11-0400 SaO2% (BldA) [Mass fraction] 98 % Nicolás Wiley MD Work Phone: [facility] Work Phone: 07-11-2021 00:11-0400 Systolic blood pressure 97 mm[Hg] Nicolás Wiley MD Work Phone: [facility] Work Phone: 07-10-2021 19:29-0400 Body height 160 cm Nicolás Wiley MD Work Phone: [facility] Work Phone: 07-10-2021 19:29-0400 Body mass index (BMI) [Ratio] 25.69 kg/m2 Nicolás Wiley MD Work Phone: [facility] Work Phone: 07-10-2021 19:29-0400 Body temperature 98.1 [degF] Nicolás Wiley MD Work Phone: [facility] Work Phone: 07-10-2021 19:29-0400 Body weight 65.77 kg Nicolás Wiley MD Work Phone: [facility] Work Phone: 05-11-2021 12:33-0400 Body height 160 cm Angie Alejandro MD Work Phone: [facility] Work Phone: 05-11-2021 12:33-0400 Body mass index [...] 117 mm[Hg] Angie Alejandro MD Work Phone: [facility] Work Phone: NEGATED: Highlighted [id number] 14:22-0500 BMI (Body Mass Index) 28.45 kg/m2 Laura Bettencourt LPN [facility] Work Phone: NEGATED: Highlighted [id number] 14:22-0500 Body weight 72.58 kg Laura Bettencourt LPN [facility] Work Phone: NEGATED: Highlighted [id number] 14:22-0500 Body weight 73 kg Laura Bettencourt LPN [facility] Work Phone: NEGATED: Highlighted [id number] 14:22-0500 BP Diastolic 52 mm[Hg] Laura Bettencourt LPN [facility] Work Phone: NEGATED: Highlighted [id number] 14:22-0500 BP Systolic 116 mm[Hg] Laura Bettencourt LPN [facility] Work Phone: NEGATED: Highlighted [id number] 14:22-0500 Height 160.02 cm Laura Bettencourt LPN [facility] Work Phone: NEGATED: Highlighted [id number] 14:22-0500 Height 160 cm Laura Bettencourt LPN [facility] Work Phone: NEGATED: Highlighted [id number] 14:22-0500 Pulse (Heart Rate) 83 /min Laura Bettencourt LPN [facility] Work Phone: Encounters Encounter Date Encounter Type Care Provider Facility Start: 04-08-2025 End: 04-08-2025 Emergency department patient visit Dr. Maria Regan MD Work Phone: -Emergency Department Work Phone: Start: 03-27-2025 End: 03-27-2025 Patient encounter procedure Cinthia Flores NP-C -[facility] Work Phone: Start: 03-27-2025 End: 03-27-[address] Maria Regan MD Work Phone: [facility] Work Phone: Start: 03-25-2025 ambulatory [facility] Facility [facility] Start: 03-21-2025 End: 03-22-2025 Emergency department patient visit Dr. Maria Regan MD Work Phone: -Emergency Department Work Phone: Start: 03-18-2025 End: 03-18-[address] Maria Regan MD -[facility] Work Phone: Start: 03-18-2025 End: 03-18-[address] Maria Regan MD Work Phone: [facility] Work Phone: Start: 03-06-2025 End: 03-06-2025 Emergency department patient visit Dr. Maria Regan MD Work Phone: -Emergency Department Work Phone: Start: 02-27-2025 End: 02-27-2025 Patient encounter procedure Azeb FELDER -[facility] Work Phone: Start: 02-27-2025 End: 02-27-[address] Maria Regan MD Work Phone: [facility] Work Phone: Start: 02-25-2025 End: 02-27-2025 Refill Jennifer Werner MD Work Phone: [facility]) Comment on above: Refill Request Start: 02-18-2025 End: 02-18-2025 Telephone encounter Jennifer Werner MD Work Phone: [facility]) Comment on above: Appointment Start: 02-18-2025 End: 02-18-2025 ambulatory Dea Schultz RN NURSE PENCILS WASHER Comment on above: Back Pain Start: 02-18-2025 End: 02-18-2025 Emergency department patient visit Dr. Maria Regan MD Work Phone: -Emergency Department Work Phone: Start: 02-08-2025 End: 02-08-[address] Maria Regan MD Work Phone: [facility] Work Phone: Start: 02-08-2025 End: 02-08-[address] Maria Regan MD -[facility] Work Phone: Start: 02-08-2025 End: 02-08-2025 ambulatory Maria Regan Facility:[facility] Start: 01-07-2025 End: 01-07-[address] Maria Regan MD -[facility] Work Phone: Start: 01-07-2025 End: 01-07-2025 ambulatory Maria Regan Facility:[facility] Start: 01-01-2025 End: 01-01-2025 Follow-up encounter Jennifer Werner MD Work Phone: [facility] Start: 12-31-2024 End: 12-31-2024 ambulatory JENNIFER WERNER Facility:[facility] Start: 12-31-2024 Encounter for genera l adult medical examination without abnormal findings JENNIFER WERNER [facility] Start: 12-21-2024 End: 12-21-[address] Maria Regan MD -[facility] Work Phone: Start: 12-21-2024 End: 12-21-2024 ambulatory Maria Regan Facility:[facility] Start: 11-22-2024 End: 11-22-2024 Emergency department patient visit Dr. 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; Encounter for routine adult health examination without abnormal findings; Screening for diabetes mellitus; Mixed hyperlipidemia Start: 2024 End: 2024 Patient encounter status Jennifer Werner MD Work Phone: [facility] Start: 2024 End: 2024 ambulatory JENNIFER WERNER Facility:[facility] Start: 2024 Encounter for genera l adult medical examination without abnormal findings JENNIFER WERNER [facility] Start: 10-12-2024 End: 10-12-2024 Telephone encounter To VELAZQUEZ Work Phone: [facility] Comment on above: Results Start: 10-11-2024 End: 10-11-2024 ambulatory JENNIFER WERNER Facility:[facility] Start: 10-11-2024 End: 10-11-2024 Patient encounter procedure To VELAZQUEZ Work Phone: [facility] Comment on above: Sore throat (Primary Dx); URI, acute Start: 10-11-[address] Maria Regan MD Work Phone: [facility] Start: 10-11-2024 End: 10-11-2024 ambulatory [facility] Facility:[facility] Start: 10-11-2024 End: 10-11-2024 ambulatory [facility] Facility:[facility] Start: 08-28-2024 End: 08-28-2024 Telephone encounter Jennifer Christina MD Work Phone: [facility] Comment on above: Missed Appointment ( No Show #1) Start: 07-16-2024 End: 07-16-2024 ambulatory FORTINO TEJEDA Facility:[facility] Start: 07-16-2024 End: 07-16-2024 Subsequent hospital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 [facility] ([place]) Comment on above: Xanax refill request Start: 07-04-2024 End: 07-04-2024 [facility] 07/04/2024 4:00 PM EDT [facility]) [address] [place], [place] [id number] Noelle Cummins, EXERCISE TEACHER.ULTRASOUND SPECIALIST [address] [facility], [address] [place], [place] [id number] requesting 10 day supply of xanax until she sees Dr. Werner on 07/12/24, refill was refused. [facility] ([place]) Comment on above: requesting 10 day supply of xanax until she sees Dr. Werner on 07/12/24, refill was refused. Start: 07-01-2024 Annual PCP Team Chronic Disease Visit Annual PCP Team Chronic Disease Visit [facility] Start: 06-21-2024 End: 06-21-2024 ambulatory 06/21/2024 7:00 AM EDT [facility] [address] [place] [address] Fortino Tejeda PA-C [address] [place], [place] [id number] Have a Fibro Flare [facility] Comment on above: Have a Fibro Flare Start: 06-03-2024 Covid-19 Vaccine ( season) Covid-19 Vaccine ( season) [facility] Start: 06-03-2024 Covid-19 Vaccine ( season) Covid-19 Vaccine () [facility] Start: 06-03-2024 Influenza vaccination Influenza Vacc[facility] (#[facility] Start: 03-28-2024 End: 03-28-2024 Patient encounter procedure 03/28/2024 3:40 PM EDT Office Visit [facility] Medicine ([place]) [address] [place], [place] [id number] Mehran Cooper, EXERCISE TEACHER.ULTRASOUND SPECIALIST [address] [place], [place] [id number] Pain [facility] ([place]) Comment on above: Pain Start: 03-03-2024 ANNUAL PCP TEAM CHRONIC DISEASE VISIT ANNUAL PCP TEAM CHRONIC DISEASE VISIT [facility] Start: 02-22-2024 End: 02-22-2024 Patient encounter procedure 02/22/2024 2:20 PM EDT [facility] Medicine ([place]) [address] [place], [place] [id number] Jennifer Christina MD [address] [place], [place] [address] Life changes [facility] ([place]) Comment on above: Life changes Start: 02-08-2024 ANNUAL PCP TEAM CHRONIC DISEASE VISIT ANNUAL PCP TEAM CHRONIC DISEASE VISIT [facility] Start: 01-23-2024 [facility] Start: 01-12-2024 End: 04-12-2024 MISC SEND OUT TST 1 MISC SEND OUT TST 1 Lab Routine Family history of developmental delay Expected: 01/12/2024, Expires: 04/12/2024 [facility] Work Phone: Comment on above: Expected: 01/12/2024, Expires: Start: 12-22-2023 ANNUAL PCP TEAM CHRONIC DISEASE VISIT ANNUAL PCP TEAM CHRONIC DISEASE VISIT [facility] Start: 11-01-2023 ANNUAL PCP TEAM CHRONIC DISEASE VISIT ANNUAL PCP TEAM CHRONIC DISEASE VISIT [facility] Start: 10-20-2023 ANNUAL PCP TEAM CHRONIC DISEASE VISIT ANNUAL PCP TEAM CHRONIC DISEASE VISIT [facility] Start: 08-16-2023 End: 11-15-2023 Lipid 1996 panel - Serum or Plasma LIPID PANEL BASIC Lab Routine Mixed hyperlipidemia Expected: 08/16/2023, Expires: 11/15/2023 [facility] Work Phone: Comment on above: Expected: 08/16/2023, Expires: 4 Start: 06-06-2023 Screening for malignant neoplasm of cervix Cervical Cancer Screening [facility] Start: 06-03-2023 Covid-19 Vaccine () Covid-19 Vaccine () [facility] Start: 06-03-2023 Influenza vaccination [facility] Start: 01-20-2023 End: 03-22-2023 Lipid 1996 [...] on above: Expected: 01/20/2023, Expires: 3 Start: 11-01-2022 End: 01-01-2023 Thyrotropin [Units/volume] in [...] 11/01/2022, Expires: 3 Start: 11-01-2022 End: 01-01-2023 Triiodothyronine (T3) [Mass/volume] in Serum or Plasma T3 BLD Lab Routine Generalized anxiety disorder Expected: 11/01/2022, Expires: 01/01/2023 [facility] Work Phone: Comment on above: Expected: 11/01/2022, Expires: Start: 10-27-2022 End: 12-27-2022 25-hydroxyvitamin D3 [Mass/volume] in Serum or Plasma VITAMIN D 25 HYDROXY Lab Routine Pain in joint, multiple sites Malaise and fatigue Expected: 10/27/2022, Expires: 12/27/2022 [facility] Work Phone: Comment on above: Expected: 10/27/2022, Expires: 3 Start: 10-27-2022 End: 12-27-2022 C reactive protein [...] Ribonucleoprotein extractable nuclear Ab [Units/volume] in Serum HEAD COUNSELOR ANTIBODY BLOOD Lab Routine Pain in joint, [...] Comment on above: Expected: 10/27/2022, Expires: Start: 10-03-2022 DEPRESSION ASSESSMENT DEPRESSION ASSESSMENT [facility] Start: 08-03-2022 End: 08-17-2022 Influenza virus A and B RNA and SARS-CoV-2 (COVID-19) N gene panel - Respiratory specimen by FRANCESCO with probe detection COVID WITH FLUA+B, ROUTINE Microbiology Routine Acute cough URI, acute Expected: 08/03/2022, Expires: 08/17/2022 [facility] Work Phone: Comment on above: Expected: 08/03/2022, Expires: Start: 06-25-2022 Application of abdominal corset [facility] Work Phone: Start: 06-25-2022 Patient discharge [facility] Work Phone: Start: 06-25-2022 Administration of blood product [facility] Work Phone: Start: 06-25-2022 [facility] Work Phone: Start: 06-25-2022 Consultation [facility] Work Phone: Start: 06-24-2022 Notification of physician [facility] Work Phone: Start: 06-24-2022 Post-anesthesia assessment [facility] Work Phone: Start: 06-24-2022 [facility] Work Phone: Start: 06-24-2022 Following clinical pathway protocol [facility] Work Phone: Start: 06-24-2022 Application of abdominal corset [facility] Work Phone: Start: 06-24-2022 Administration of medication [facility] Work Phone: Start: 06-24-2022 Ambulation therapy management [facility] Work Phone: Start: 06-24-2022 Application of device [facility] Work Phone: Start: 06-24-2022 Assessment of risk of venous thromboembolism [facility] Work Phone: Start: 06-24-2022 Catheterization of vein [facility] Work Phone: Start: 06-24-2022 Deep breathing and coughing exercises [facility] Work Phone: Start: 06-24-2022 Exercises [facility] Work Phone: Start: 06-24-2022 Incentive spirometry [facility] Work Phone: Start: 06-24-2022 Measuring intake and output [facility] Work Phone: Start: 06-24-2022 Procedure discontinued [facility] Work Phone: Start: 06-24-2022 Provision of activity privileges [facility] Work Phone: Start: 06-24-2022 Vital signs measurements [facility] Work Phone: Start: 06-24-2022 Wound care [facility] Work Phone: Start: 06-24-2022 End: 06-24-2022 [facility] Work Phone: Start: 06-24-2022 Post-anesthesia assessment [facility] Work Phone: Start: 06-24-2022 End: 06-24-2022 Notification of physician [facility] Work Phone: Start: 06-24-2022 Admission procedure [facility] Work Phone: Start: 06-24-2022 End: 06-24-2022 Application of intermittent pneumatic compression device [facility] Work Phone: Start: 06-24-2022 External monitor surveillance [facility] Work Phone: Start: 06-24-2022 Preoperative care [facility] Work Phone: Start: 06-24-2022 End: 06-24-2022 [facility] Work Phone: Start: 06-24-2022 Nonstress test [facility] Work Phone: Start: 06-24-2022 Obstetric monitoring [facility] Work Phone: Start: 06-24-2022 Vital signs measurements [facility] Work Phone: Start: 06-24-2022 End: 06-24-2022 [facility] Work Phone: Start: 06-24-2022 [facility] Work Phone: Start: 06-23-2022 End: 07-07-2022 Influenza virus A and B RNA and SARS-CoV-2 (COVID-19) N gene panel - Respiratory specimen by FRANCESCO with probe detection [facility] Work Phone: Comment on above: Expected: 06/23/2022, Expires: Start: 06-20-2022 Nonstress test [facility] Work Phone: Start: 06-20-2022 Obstetric monitoring [facility] Work Phone: Start: 06-20-2022 Vital signs measurements [facility] Work Phone: Start: 06-20-2022 [facility] Work Phone: Start: 06-20-2022 Patient discharge [facility] Work Phone: Start: 06-19-2022 Patient discharge [facility] Work Phone: Start: 06-18-2022 Obstetric monitoring [facility] Work Phone: Start: 06-18-2022 Vital signs measurements [facility] Work Phone: Start: 06-18-2022 [facility] Work Phone: Start: 06-18-2022 Cul prsmptv pthgnc organism scrn w/[place] estimj CULTURE SCREEN ONLY [facility] Work Phone: Start: 06-18-2022 [employer] b amplified probe tq STREP B DNA AMP PROBE [facility] Work Phone: Start: 06-18-2022 Iv infusion hydration each additional hour HYDRATE IV INFUSION ADD-ON [facility] Work Phone: Start: 06-18-2022 Ther proph/dx njx iv push single/1st sbst/drug THER/PROPH/DIAG INJ IV PUSH [facility] Work Phone: Start: 06-18-2022 Therapeutic prophylactic/dx injection subq/im THER/PROPH/DIAG INJ SC/IM [facility] Work Phone: Start: 06-18-2022 End: 06-18-2022 Nonstress test [facility] Work Phone: Start: 06-18-2022 Obstetric monitoring [facility] Work Phone: Start: 06-18-2022 Vital signs measurements [facility] Work Phone: Start: 06-18-2022 End: 06-19-2022 [facility] Work Phone: Start: 06-18-2022 Patient discharge [facility] Work Phone: Start: 06-03-2022 Influenza vaccination [facility] Start: 02-12-2022 Patient discharge [facility] Work Phone: Start: 02-12-2022 Ultrasonography for antepartum monitoring of fetus OB Limited (No Biometrics) [facility] Work Phone: Start: 02-12-2022 Consultation [facility] Work Phone: Start: 02-11-2022 Ambulation without limitation [facility] Work Phone: Start: 02-11-2022 Assessment of risk of venous thromboembolism [facility] Work Phone: Start: 02-11-2022 Insertion of catheter into peripheral vein [facility] Work Phone: Start: 02-11-2022 Providing care according to standard [facility] Work Phone: Start: 02-11-2022 Referral to oil tester and candy catcher [facility] Work Phone: Start: 02-11-2022 [facility] Work Phone: Start: 02-11-2022 Following clinical pathway protocol [facility] Work Phone: Start: 02-11-2022 Admission procedure [facility] Work Phone: Start: 02-11-2022 Bacteria identified in Blood by Culture Blood Culture [facility] Work Phone: Start: 01-04-2022 Iv infusion hydration each additional hour HYDRATE IV INFUSION ADD-ON [facility] Work Phone: Start: 01-04-2022 Ther proph/dx njx iv push single/1st sbst/drug THER/PROPH/DIAG INJ IV PUSH [facility] Work Phone: Start: 01-04-2022 Therapeutic injection iv push each new drug TX/PRO/DX INJ NEW DRUG [facility] Work Phone: Start: 12-28-2021 Iv infusion therapy/prophylaxis /dx 1st to 1 hr THER/PROPH/DIAG IV INF INIT [facility] Work Phone: Start: 12-28-2021 Therapeutic injection iv push each new drug TX/PRO/DX INJ NEW DRUG [facility] Work Phone: Start: 12-28-2021 Therapeutic prophylactic/dx injection subq/im THER/PROPH/DIAG INJ SC/IM [facility] Work Phone: Start: 10-03-2021 DEPRESSION ASSESSMENT DEPRESSION ASSESSMENT [facility] Start: 08-20-2021 COVID-19 VACCINE (3 - Booster for Pfizer series) COVID-19 VACCINE (3 - Booster for Pfizer series) [facility] Start: 08-20-2021 COVID-19 VACCINE (3 - Pfizer series) COVID-19 VACCINE (3 - Pfizer series) [facility] Start: 06-03-2021 Influenza vaccination Flu vaccine (#1) [facility] Work Phone: Start: 03-16-2020 Adult depression screening assessment DEPRESSION SCREENING [facility] Start: 11-07-2019 End: 11-07-2019 Appointment Appointment [facility] Work Phone: Start: 10-17-2019 End: 10-17-2019 Appointment [facility] Work Phone: Start: 06-26-2018 Screening for malignant neoplasm of cervix [facility] Start: 2017 Screening for malignant neoplasm of cervix HPV (without or with Pap) [facility] Start: 01-10-2016 PNEUMOCOCCAL (2 - PCV) PNEUMOCOCCAL (2 - PCV) [facility] Start: 01-10-2016 [facility] Start: 2006 Hepatitis B Vaccine (1 of 3 - 19+ 3-dose series) Hepatitis B Vaccine (1 of 3 - 19+ 3-dose series) [facility] Start: 2005 HEPATITIS C SCREENING HEPATITIS C SCREENING [facility] Start: 2005 Hepatitis C screening Hepatitis C Screening [facility] Start: 2005 SPIROMETRY SPIROMETRY [facility] Start: 1999 COVID-19 Vaccine (1) COVID-19 Vaccine (1) [facility] Work Phone: Start: 1999 Depression Screen Depression Screen [facility] Start: 1988 Varicella vaccine (1 of 2 - 2-dose childhood series) Varicella vaccine (1 of 2 - 2-dose childhood series) [facility] Start: 04-15-1988 COVID-19 Vaccine (#1) COVID-19 Vaccine (#1) [facility] Start: 1987 HEPATITIS B (1 of 3 - 3-dose series) HEPATITIS B (1 of 3 - 3-dose series) [facility] Start: 1987 Hepatitis B Vaccine (1 of 3 - 3-dose series) Hepatitis B Vaccine (1 of 3 - 3-dose series) [facility] Bacteria identified in Urine by Culture Urine Culture [facility] Work Phone: COVID & INFLUENZA A/ [...] [facility] Work Phone: End: 06-19-2022 Culture, Urine [facility] Work Phone: Comment on above: One Time for 1 Occurrences starting 06/03 until 06/19/2022 EKG 12 Lead EKG 12 Lead ECG STAT 07/10/2021 8:38 PM EDT [facility] Work Phone: EKG 12 Lead EKG 12 Lead ECG STAT 06/19/2022 10:04 PM EDT [facility] Work Phone: EKG 12 Lead EKG 12 Lead ECG STAT 06/20/2022 9:25 AM EDT [facility] Work Phone: Erythrocyte mean corpuscular volume determination [facility] End: 06-20-2022 nonstress test nonstress test OB Routine One Time for 1 Occurrences starting 06/20/2022 until 06/20/2022 [facility] Work Phone: Comment on above: One Time for 1 Occurrences starting 06/03 until 06/20/2022 End: 06-19-2022 Group B Strep, PCR [facility] Work Phone: Comment on above: One Time for 1 Occurrences starting 06/03 until 06/19/2022 Group B Streptococcu s Culture Group B Streptococcus Culture [facility] Work Phone: Hematocrit [Volume Fraction] of Blood [facility] Hemoglobin [Mass/vol ume] in Blood [facility] Leukocytes [#/volume ] in Blood [facility] Mean corpuscular hem oglobin concentration determination [facility] Mean corpuscular hem oglobin determination [facility] End: 12-12-2023 Mri brain brain stem w/o w/contrast material MRI BRAIN WO/W IVCON Radiology Routine New daily persistent headache Mixed headache Medication overuse headache 1 Occurrences starting 11/12/2022 until 12/12/2023 [facility] Work Phone: Comment on above: 1 Occurrences starting 11/12/2022 until 12/12/2023 Neutrophil count [facility] Neutrophil percent differential count [facility] Nonrebreather mask oxygen Nonreb reather mask oxygen Respiratory Care Routine As directed - RT (PRN) until discontinued starting 06/19/2022 [facility] Work Phone: Comment on above: As directed - RT (PRN) until discontinue d starting 06/19/2022 Oxygen therapy [[facility] Data Set] Initiate Oxygen Therapy Protocol while on epidural Respiratory Care Routine As Needed until discontinued starting 06/19/2022 [facility] Work Phone: Comment on above: As Needed until discontinued starting Patient Education [facility] Work Phone: Patient referral [facility] Work Phone: Platelets [#/volume] in Blood [facility] Red blood cell count [facility] Red cell distributio n width determination [facility] Urine culture Urine Culture [facility] Work Phone: Urine culture [facility] End: 06-21-2022 US DOPPLER UMBILICAL ARTERY US DOPPLER UMBILICAL ARTERY Imaging Routine Once for 1 Occurrences starting 06/21/2022 until 06/21/2022 [facility] Work Phone: Comment on above: Once for 1 Occurrences starting 06/21/20 until 06/21/2022 End: 06-21-2022 US BIOPHYSICAL PROFILE WO NON STRESS TESTING US BIOPHYSICAL PROFILE WO NON STRESS TESTING Imaging Routine Once for 1 Occurrences starting 06/21/2022 until 06/21/2022 [facility] Work Phone: Comment on above: Once for 1 Occurrences starting 06/21/20 until 06/21/2022 End: 07-21-2025 XR Ankle - left AP and Lateral and oblique XR ANKLE GENERAL 3V AP/LAT/OBL LEFT Radiology Routine Arthralgia, unspecified joint 1 Occurrences starting 06/21/2024 until 07/21/2025 [facility] Comment on above: 1 Occurrences starting 06/21/2024 until 07/21/2025 XR Ankle - left AP a nd Lateral and oblique XR ANKLE GENERAL 3V AP/LAT/OBL LEFT Radiology Routine Arthralgia, unspecified joint 07/16/2024 1:17 PM EDT [facility] End: 07-21-2025 XR Ankle - right AP and Lateral and oblique XR ANKLE GENERAL 3V AP/LAT/OBL RIGHT Radiology Routine Arthralgia, unspecified joint 1 Occurrences starting 06/21/2024 until 07/21/2025 [facility] Comment on above: 1 Occurrences starting 06/21/2024 until 07/21/2025 XR Ankle - right AP and Lateral and oblique XR ANKLE GENERAL 3V AP/LAT/OBL RIGHT Radiology Routine Arthralgia, unspecified joint 07/16/2024 1:17 PM EDT [facility] End: 07-21-2025 XR Knee AP and Lateral and [facility] Work Phone: Comment on above: 1 Occurrences starting 06/21/2024 until 07/21/2025 XR Knee AP and Later al and [facility] Work Phone: [facility] Immunizations Immunization Date Immunization Notes Care Provider Pieter ríos 07-12-2024 influenza, seasonal, injectable Jennifer Christina MD Work Phone: [facility] 08-09-2023 influenza, injectabl e, quadrivalent, contains preservative Jennifer Christina MD Work Phone: [facility] 08-09-2023 influenza virus vacc ine, unspecified formulation Ricki Lafleur EXERCISE TEACHER.ULTRASOUND SPECIALIST Work Phone: [facility] 06-25-2022 influenza, injectabl e, quadrivalent, preservative free Jennifer Christina MD Work Phone: [facility] 06-25-2022 influenza, seasonal, injectable Dr. Roger Cohen Work Phone: [facility] 06-25-2022 influenza virus vacc ine, unspecified formulation Jennifer Christina MD Work Phone: [facility] 05-21-2022 tetanus toxoid, redu howard diphtheria toxoid, and acellular pertussis vaccine, adsorbed Dr. Roger Cohen Work Phone: [facility] 10-19-2021 influenza, injectabl e, quadrivalent, contains preservative Yvonne Eagle EXERCISE TEACHER.ULTRASOUND SPECIALIST Work Phone: [facility] Work Phone: 06-27-2020 influenza, injectabl e, quadrivalent, contains preservative Yvonne Eagle EXERCISE TEACHER.ULTRASOUND SPECIALIST Work Phone: [facility] 09-19-2019 influenza, injectabl e, quadrivalent, contains preservative Yvonne Eagel EXERCISE TEACHER.ULTRASOUND SPECIALIST Work Phone: [facility] Work Phone: 06-15-2017 Influenza, injectabl e, [place] [place] Canine Kidney, preservative free, quadrivalent Maria Luisa Tyler MD Work Phone: [facility] 06-03-2017 influenza nasal, unspecified formulation Maria Luisa Tyler MD Work Phone: [facility] 06-03-2017 influenza virus vacc ine, unspecified formulation Angie Alejandro MD Work Phone: [facility] Work Phone: 02-16-2016 measles, mumps and rubella virus vaccine Angie Alejandro MD Work Phone: [facility] 02-15-2016 tetanus toxoid, redu howard diphtheria toxoid, and acellular pertussis vaccine, adsorbed Angie Alejandro MD Work Phone: [facility] 01-09-2015 pneumococcal polysaccharide vaccine, 23 valent Angie Alejandro MD Work Phone: [facility] Work Phone: 07-03-2014 TD(adult) unspecifie d formulation Maria Luisa Tyler MD Work Phone: [facility] 07-03-2014 Td, unspecified formulation Angie Alejandro MD Work Phone: [facility] Work Phone: 07-03-2014 tetanus and diphther ia toxoids, adsorbed, preservative free, for adult use (2 Lf of tetanus toxoid and 2 Lf of diphtheria toxoid) Yvonne Eagle APRN.[facility] Work Phone: [facility] Work Phone: 07-03-2009 RHO(D) immune globul in- IV or IM Yvonne Eagle EXERCISE TEACHER.[facility] Work Phone: [facility] Work Phone: Payers Date Payer Category Payer Self-pay [id number] 2015 Unknown [id number]. [id number] 2014 Medicaid [id number] 1987 Unknown [id number] 2.16. 840.1.339011.3.579.2.479 1987 Unknown [id number] 2.16. 840.1.476056.3.579.2.479 1987 Unknown [id number] 2.16. 840.1.284037.3.579.2.479 1987 Unknown [id number] 2.16. 840.1.273476.3.579.2.479 1987 Unknown [id number] 2.16. 840.1.475691.3.579.2.479 1987 Unknown [id number] 2.16. 840.1.712288.3.579.2.479 1987 Unknown [id number] 2.16. 840.1.735650.3.579.2.479 1987 Unknown [id number] 2.16. 840.1.395480.3.579.2.479 1987 Unknown [id number] 2.16. 840.1.616510.3.579.2.479 1987 Unknown [id number] 2.16. 840.1.535830.3.579.2.479 1987 Unknown [id number] 2.16. 840.1.116661.3.579.2.479 1987 Unknown [id number] 2.16. 840.1.701032.3.579.2.479 1987 Unknown [id number] 2.16. 840.1.360761.3.579.2.479 1987 Unknown [id number] 2.16. 840.1.680493.3.579.2.479 1987 Unknown [id number] 2.16. 840.1.437038.3.579.2.668 1987 Unknown [id number] 2.16.8 40.1.074963.3.579.2.627 1987 Unknown [id number] 2.16.8 40.1.626710.3.579.2.627 1987 Unknown [id number] 2.16.8 40.1.103450.3.579.2.627 Unknown [id number] Unknown Unknown [id number] 2.16.8 40.1.893641.3.579.2.462 Unknown [id number] 2.16.8 40.1.513169.3.579.2.462 Unknown [id number] 2.16.8 40.1.218979.3.579.2.462 Unknown [id number] 2.16.8 40.1.650892.3.579.2.462 Unknown [id number] 2.16.8 40.1.570594.3.579.2.462 Unknown [id number] 2.16.8 40.1.673933.3.579.2.462 Unknown [id number] 2.16.8 40.1.088327.3.579.2.462 Unknown [id number] 2.16.8 40.1.106257.3.579.2.462 Unknown [id number] 2.16.8 40.1.931568.3.579.2.462 Unknown [id number] 2.16.8 40.1.929879.3.579.2.462 Unknown [id number] 2.16.8 40.1.480683.3.579.2.462 Unknown [id number] 2.16.8 40.1.810147.3.579.2.462 Unknown [id number] 2.16.8 40.1.196456.3.579.2.462 Unknown [id number] 2.16.8 40.1.948868.3.579.2.462 Unknown [id number] 2.16.8 40.1.001898.3.579.2.462 Unknown [id number] 2.16.8 40.1.781909.3.579.2.462 Unknown [id number] 2.16.8 40.1.128463.3.579.2.462 Unknown [id number] 2.16.8 40.1.811030.3.579.2.462 Unknown [id number] 2.16.8 40.1.790808.3.579.2.462 Social History Date Type Detail Facility Start: 01-07-2022 End: 01-23-2024 Assertion Unknown if ever smoked [facility] Work Phone: Start: 05-11-2021 End: 06-15-2024 Tobacco smoking status NHIS Current every day smoker [facility] History of tobacco use Cigarette Smoker S [facility] Start: 05-11-2021 End: 02-21-2025 Cigarettes smoked current (pack per day) - Reported [facility] Start: 05-11-2021 End: 06-15-2024 Tobacco use and exposure Never used [facility] Start: 05-11-2021 End: 2024 Alcohol intake Current non-drinker of alcohol (finding) [facility] Work Phone: Start: 1985 Sex Assigned At Not on file [facility] Work Phone: Start: 06-19-2021 End: 08-03-2022 Exposure to SARS-CoV-2 (event) Not sure [facility] Start: 06-19-2022 End: 04-08-2025 Ex-smoker (finding) [facility] Sex Assigned At [facility] Start: 12-20-2021 Light tobacco smoker (finding) [facility] Start: 08-19-2019 None [facility] Start: 08-19-2019 Spouse/ Signif icant Other [facility] Start: 06-05-2020 Cigarettes [facility] Start: 1985 Sex Assigned At Female W [facility] History of tobacco use Current smoker [facility] Work Phone: Start: 11-19-2021 [facility] Work Phone: Start: 01-25-2020 End: 04-07-2020 History SDOH Alcohol Frequency 1 [facility] Start: 04-07-2020 History SDOH Alcohol Std Drinks 98 [facility] Start: 01-25-2020 End: 04-07-2020 History SDOH Social Connections Phone 5 [facility] Start: 04-07-2020 History SDOH Social Connections Get Together 4 [facility] Start: 01-25-2020 End: 04-07-2020 History SDOH Social Connections Bahai 3 [facility] Start: 01-25-2020 End: 04-07-2020 History SDOH Physical Activity DPW 2 [facility] Start: 01-25-2020 Education 12 [facility] Start: 06-27-2020 End: 06-23-2022 Tobacco Comment 5 cigarretes a day [facility] Start: 04-07-2020 End: 02-21-2025 Social connection and isolation panel [facility] Frequency of Communication with Friends and Family Not on file [facility] Do you belong to any clubs or organizations such as methodist groups, unions, fraternal or athletic groups, or school groups? Yes [facility] Are you now , , , , never or living with a partner? [facility] How often to you hav e a drink containing alcohol? Never [facility] Do you feel stress - tense, restless, nervous, or anxious, or unable to sleep at night because your mind is troubled all the time - these days [OSQ] To some extent [facility] (I/We) worried wheth er (my/our) food would run out before (I/we) got money to buy more. Never true [facility] In the past 12 month s, was there a time when you were not able to pay the mortgage or rent on time? No [facility] How often to you hav e a drink containing alcohol? Monthly or less [facility] How many standard drinks containing alcohol do you have on a typical day? 1 or 2 [facility] How hard is it for y ou to pay for the very basics like food, housing, medical care, and heating Somewhat hard [facility] Do you feel stress - tense, restless, nervous, or anxious, or unable to sleep at night because your mind is troubled all the time - these days [OSQ] Very much [facility] (I/We) worried wheth er (my/our) food would run out before (I/we) got money to buy more. Sometimes true [facility] NEGATED: Highlighted rowStart: 10-17-2019 End: 10-17-2019 Tobacco use and exposure Tobacco use and exposure [facility] Work Phone: Goals Date Patient Goal Desired Activity /State Functional Status Date Assessment Result Facility 12-25-2023 Functional Status Independent [facility] 12-25-2023 Functional Status Ambulation in [place], Ambulation in Room [facility] 03-04-2023 Functional Status Independent [facility] 03-04-2023 Functional Status Ambulating in torres, Ambulating in room, Awake, Bathroom privileges [facility] 12-26-2022 Functional Status ID band on, Allergy Band on, Call device within reach, Bed in low position, Wheels locked, Upper/Half-Length side-rails up, Phone within reach, personal items within reach [facility] 10-07-2022 Functional Status Assistive Device None A [facility] 09-27-2022 Functional Status Assistive Device None A [facility] 06-29-2022 Are you deaf, or do you have serious difficulty hearing No 06/29/2022 9:38 AM Mine Ulloa, MUMTAZ No [facility] 06-29-2022 Are you blind, or do you have serious difficulty seeing, even when wearing glasses No 06/29/2022 9:38 AM Mine Ulloa, MUMTAZ No [facility] 06-29-2022 Do you have serious difficulty walking or climbing stairs No 06/29/2022 9:38 AM Mine Ulloa, MUMTAZ No [facility] 06-29-2022 Do you have difficul ty dressing or bathing No 06/29/2022 9:38 AM Mine Ulloa, MUMTAZ No [facility] 06-29-2022 Because of a physica l, mental, or emotional condition, do you have difficulty doing errands alone such as visiting a physician's office or shopping No 06/29/2022 9:38 AM Mine Ulloa, RN No [facility] 02-12-2022 Functional status Ambulates [facility] Work Phone: Mental Status Date Assessment Result Facility 02-18-2025 Cognitive function Level Of Cons ciousness Awake;Alert;Appropriate;Fol lows Commands [facility] Work Phone: 01-23-2024 Cognitive function Level Of Cons ciousness Awake;Alert;Appropriate;Fol lows Commands [facility] Work Phone: 12-25-2023 Mental Status Orientation Oriented x 4 [facility] 12-25-2023 Mental Status [facility] 03-04-2023 Mental Status Orientation Oriented x 4 [facility] 03-04-2023 Mental Status [facility] 12-26-2022 Mental Status Oriented x 4 [facility] 10-07-2022 Mental Status Orientation Oriented x 4 [facility] 10-07-2022 Mental Status [facility] 09-27-2022 Mental Status Oriented x 4 [facility] 06-29-2022 Because of a physica l, mental, or emotional condition, do you have serious difficulty concentrating, remembering, or making decisions No 06/29/2022 9:38 AM Mine Ulloa RN No [facility] 06-25-2022 Cognitive function Level Of Cons ciousness Awake;Alert;Appropriate [facility] Work Phone: 06-25-2022 Cognitive function Arousable To Voice/Nam e [facility] Work Phone: 03-27-2022 Cognitive function Level Of Cons ciousness Awake;Alert;Appropriate;Fol lows Commands [facility] Work Phone: 02-11-2022 Cognitive function Appropriate;Cooperativ e [facility] Work Phone: 01-04-2022 Cognitive function Voice/Name [facility] Work Phone: 12-28-2021 Cognitive function Awake;Alert;A ppropriate;Fol lows Commands [facility] Work Phone: 10-09-2021 Cognitive function Level Of Cons ciousness Awake;Alert;Appropriate;Fol lows Commands [facility] Work Phone: 10-07-2021 Cognitive function Level Of Cons ciousness Awake;Alert;Appropriate;Fol lows Commands [facility] Work Phone: Clinical Notes 07-27-2018 to 04-08-2025 Note Date & Type Note Facility 04-08-2025 Discharge summary [facility] 04-08-2025 Radiology Diagnostic study note [facility] Imaging Services [address] [place], [place] [id number] Abdomen/Pelvis W IV Cont ONLY MR#: [id number] Acct: [id number] Name: LILLIAN DRAKE Rep #: [id number] : 1985 F 39 From: Alfonzo Theodore MD PCP: Dr. Jennifer Werner MD Status: REG ER Study:Abdomen/Pelvis W IV Cont ONLY Date of E xam: 04/08/25 Exam# [id number] Ordering Dr: Main Moralez MD PROCEDURE: ABDOMEN/PELVIS W IV CONT ONLY 04/08/2025 REASON FOR EXAM: RLQ ABD PAIN TECHNIQUE: ABDOMEN/PELVIS W IV CONT ONLY Coronal and Sagittal reconstruction series were provided. CONTRAST: 97 cc VOLUME: Isovue 370 mL One or more dose reduction techniques were used (e.g., Automated exposure control, adjustment of the mA and/or kV according to patient size, use of iterative reconstruction technique. RADIATION DOSE SUMMARY: CTDlvol: 29 mGy DLP: 852.63 mGycm COMPARISON: 03/21/2025 FINDINGS: No free-fluid no free air. There is cystic change in the right adnexa which is located somewhat superiorly. This contains a follicle or cyst measuring 4.1 cm. There is no bowel obstruction. There is specifically no appendicitis. No visible bowel wall thickening. No retroperitoneal adenopathy. Normal pancreas, liver, spleen, gallbladder and portal vein. No renal mass or hydronephrosis. CT/Abdomen/Pelvis W IV Cont ONLY IMPRESSION: No acute abnormality [facility] CC: Dr. Gregorio Moralez MD; Dr. Jennifer Werner MD ~ Welfare Adviser: Signed [facility] 04-08-2025 Discharge summary Note Date/Time April 08, 2025 7:27p m [facility] Medical Records Department [address] [place] [address] Emergency Department Summary 04/08/25 MR#: [id number] Acct: [id number] Name: LILLIAN DRAKE Rep #:[id number] : 1985 39 From: Gregorio Moralez MD PCP: Dr. Jennifer Werner MD Status:REG ER Location: ED HPI HPI - GI History of Present Illness Chief Complaint: Abd Pain Informant: patient Abdominal Pain/Flank Pain Onset: Today and Yesterday Context: Gradual Onset Timing: Continuous Quality: Aching and Stabbing Location: RLQ Current Severity: Moderate Maximum Severity: Moderate Worsened by: Nothing Relieved by: Nothing Nausea/Vomiting/Emesis GI Symptom: Positive for Nausea Severity: Mild Diarrhea/Melena/Hematochezia GI Symptom: Negative for Diarrhea, Melena or Hematochezia Associated Symptoms Associated Symptoms: Negative for Dysuria, Frequency, Hematuria or Urgency Narrative Narrative: 39-year-old female history of prior bilateral tubal ligation. Prior IUD which been removed. History of adenomyosis and PCOS. They also think she may have endometriosis but has been improving it. She has an upcoming pending hysterectomy due to pelvic and abdominal pain with Dr. Maria Regan. Patient states last night she is having abdominal pain associated nausea. No vomiting or diarrhea. No constipation or dysuria. No vaginal bleeding or discharge. Prior similar symptoms: Yes Recent Illness/Hospitalization: No PFSH PFSH Medical History Dyspareunia depression History of premature [...] DAILY 11/22/24 Unk nown History tablet,extended release Allergy/AdvReac Type Severity Reaction Status Date / Time dicyclomine (From Bentyl) Allergy migraine Verified 04/08/25 13:08 Penicillins Allergy Rash Verified 04/08/25 13:08 Surgical History Status post bilateral salpingectomy delivery delivered H/O dilation and curettage Social History adopted: No household members: significant other and children number of children: 2 current occupational status: employed 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 Nausea. Constitutional Constitutional ED: Denies chills or fever(s) ENT ENT ED: Denies ear pain Cardiovascular Cardiovascular: Denies chest pain Respiratory/Chest Respiratory/Chest: Denies cough or dyspnea Gastrointestinal Gastrointestinal: Reports abdominal pain and nausea; Denies constipation, diarrhea, melena or vomiting Genitourinary Genitourinary ED: Denies dysuria or hematuria Musculoskeletal Musculoskeletal: Denies arthralgias or back pain Integumentary Denies abscess or Abrasions Neurologic Neurologic: Denies headache(s) Psychiatric Psychiatric: Denies anxiety or depression Endocrine Endocrinology: Denies polydipsia or polyphagia Hematologic/Lymphatic Hematologic/Lymphatic: Denies easy bleeding, easy bruising or lymphadenopathy Allergic/Immunologic Allergic/Immunologic ED: Denies mouth swelling, tongue swelling or urticaria EXAM Physical Exam Narrative Exam Narrative: 39-year-old female sitting upright in bed. Significant other at bedside. Vitalsigns are stable afebrile. H EENT exam pupils round react light. Motions are intact. Neck nontender no lymphadenopathy. Lungs clear to auscultation. Heartregular rhythm rate about 70 no murmur. Abdomen soft nondistended normal bowel sounds without peritoneal signs. She has mild right lower quadrant tenderness. No hernia or mass. No obstruction. No peritoneal signs. No Rovsing sign. Right upper quadrant is nontender. Moving all 4 extremities. Back nontender. Neurologically she is awake alert. Answering questions following commands. Const Vital Signs: 04/08/25 13:09 04/08/25 15:08 04/08/25 17:00 Temperature 98.3 F Temperature Source Oral Pulse Rate 69 64 56 L Respiratory Rate 18 16 14 Blood Pressure 114/81 H 110/69 113/71 Blood Pressure Mean 92 82 85 Pulse Ox 99 98 96 Oxygen Delivery Method Room Air Room Air Positive well nourished and well developed; Negative for cachectic, contracturesor unkempt General Appearance ED: well developed and NAD; Negative for unkempt, cachectic, contractures or pallor Nutritional Appearance: Negative for cachectic HEENT Reports moist mucous membranes normocephalic and atraumatic Eyes PERRL and EOMs intact bilaterally Neck no lymphadenopathy, supple and no JVD General: Negative for tenderness Lymph Lymphatic: Negative for other Resp normal respiratory effort and clear to auscultation bilaterally Effort and Inspection: Negative for respiratory distress Auscultation: Negative for rales, rhonchi or wheezes Cardio regular rate, regular rhythm, S1 normal heart sound, S2 normal heart sound and no murmurs Rate: Negative for bradycardia or tachycardic GI non-distended and no masses; Negative for non-tender GI Narrative: Mild right-sided tenderness. Nonspecific McBurney's point. No hernia or mass. No obstruction. No Rust sign tenderness. Inspection: Negative for abdominal distention Auscultation: normoactive bowel sounds Palpation: soft and tender; Negative for guarding, rigid, hepatomegaly, splenomegaly, hernia, mass, pulsatile mass or rebound tenderness present Back/Spine no CVA tenderness General Back: Negative for CVA tenderness Cervical Spine: Negative for cervical spine tenderness Thoracic Spine / Upper Back: Negative for thoracic spinal tenderness Lumbar Spine / Lower Back: Negative for lumbar spinal tenderness Extremity full ROM General Extremety ED: Negative for edema or tenderness General Extremity: Negative for edema Neuro CN's II-XII intact bilaterally and moves all extremities Sensorium / Orientation: alert, oriented to person, oriented to place and oriented to time Motor Exam: strength 5/5 throughout Psych mental status grossly normal and thought process normal Appearance: Negative for unkempt Skin no wounds General Skin Exam: Negative for jaundice or pallor Lesions: no lesions Rashes: no rashes Trauma: Negative for abrasion Nails: Negative for discolored MDM MDM MDM Narrative Medical decision making narrative: 39-year-old female abdominal pain history of adenomyosis pending hysterectomy due to abdominal pelvic pain. Suspected history of endometriosis. No prior abdominal surgeries other than pelvic surgery for tubal ligation. Screening labs to be obtained. She has had recent CAT scans 1 about 18 days ago that was negative. She has no fever., Holding off on CAT scan at this time. She is also had a recent ultrasound of her pelvis. She be treated with morphine and Toradol for pain. Zofran for nausea. Repeat exam at 5:20 PM patient still having pain. We went over her labs are completely normal. I will obtain a CT abdomen pelvis to rule out appendicitis or other abnormalities. Most likely this is secondary to endometriosis. Repeat exam patient doing better at 7:26 PM. We discussed her labs and CAT scanresults. She will be discharged home with outpatient follow-up. Abdominal painuncertain etiology. History & Record Review Discussion w/independent historian: Patient and Family Additional record(s) reviewed:: Prior inpatient record, Prior outpatient record,Prior ED visit and Prior labs Lab Data Attestation: I reviewed the patient's lab results. Lab results narrative: CBC white count 9.8. H&H 12 and 38. Platelets 236. Chemistry shows sodium 140 10. BUN/creatinine 12 and 0.6. Glucose 96 Liver enzymes normal. Lipase normal. Serum test negative. Urinalysis negative. No white or red cells. No bacteria. No nitrites. Labs: Laboratory Results - last 24 hr 04/08/25 04/08/25 13:57 14:11 WBC 9.8 RBC 4.25 Hgb 12.6 Hct 38.0 MCV 89.4 MCH 29.6 MCHC 33.2 RDW Std Deviation 45.7 H RDW Coeff of Tulio 14.1 Plt Count 236 MPV 10.1 Immature Gran % (Auto) 0.200 Neut % (Auto) 63.3 Lymph % (Auto) 29.4 [place] % (Auto) 4.7 Eos % (Auto) 1.8 Baso % (Auto) 0.6 Absolute Neuts (auto) 6.2 Absolute Lymphs (auto) 2.89 Nucleated RBC % 0 Sodium 140 Potassium 3.6 Chloride 107 Carbon Dioxide 22.8 Anion Gap 10 BUN 12 Creatinine 0.67 L Estim Creat Clear Calc 113.04 Est GFR (MDRD) Non-Af 115 BUN/Creatinine Ratio 18.6 Glucose 96 Calcium 9.1 Total Bilirubin 0.35 AST 20 ALT 10 Alkaline Phosphatase 67 Total Protein 7.0 Albumin 4.1 Globulin 2.9 Albumin/Globulin Ratio 1.4 Lipase 37 Serum , Qual NEGATIVE Urine Color Yellow Urine Clarity Cloudy Urine pH 8.0 Ur Specific [place] 1.015 Urine Protein 30 H Urine Glucose (UA) Normal Urine Ketones Negative Urine Occult Blood Negative Urine Nitrite Negative Urine Bilirubin Negative Urine Urobilinogen Normal Ur Leukocyte Esterase Negative Urine RBC 0 SEEN Urine WBC 0 SEEN Ur Squamous Epith Cells 0-5 SEEN Amorphous Sediment 2+ Urine Bacteria 0 SEEN Urine Mucus 0 SEEN Radiography Diagnostic Testing: Clinical Impression(s) from Imaging Studies Abdomen/Pelvis CT 04/08/25 17:28 IMPRESSION: No acute abnormality Reading Location: [facility] Discharge Plan Triage Chief Complaint: Abd Pain ED Provider: Gregorio Moralez Dx/Rx/DC Orders Clinical Impression: Abdominal pain, Adenomyosis Instructions: Abdominal Pain Prescriptions: No Action sertraline [Zoloft] 100 mg tablet 150 mg PO DAILY lithium carbonate 300 mg tablet extended release 250 mg PO DAILY Primary Care Provider: Jennifer Werner Referrals: Jennifer Werner MD [Primary Care Provider] - Maria Regan MD [Med Staff - Active Staff] - As Needed Activity Restrictions/Additional Instructions: CAT scan the labs look good. Motrin and Tylenol for pain. Follow-up with Dr. Maria Regan. Print Language: Azerbaijani Disposition Disposition: Home, Self Care What to do if you have Problems For any increased pain, shortness of breath, bleeding, nausea or vomiting, chestpain, or any unexpected problems, contact your Primary Care Provider. Call [facility] ([phone]) or report to the closest Emergency Room. Call 911 if necessary. 04/08/251926 <Electronically signed by Gregorio Moralez MD> Cosigner Signature (if applicable): CC: Dr. Jennifer Werner MD ~ Signed [facility] Work Phone: 1(172) 887-807806-20-2025 Radiology Diagnostic study note [facility] Imaging Services [address] [place] [address] Abdomen/Pelvis W IV Cont ONLY MR#: [id number] Acct: [id number] Name: LILLIAN DRAKE Rep #: [id number] : 1985 F 39 From: Norma Phillips MD PCP: Dr. Jennifer Wenrer MD Status: REG ER Study:Abdomen/Pelvis W IV Cont ONLY Date of E xam: 03/21/25 Exam# [id number] Ordering Dr: Elia Nielson DO PROCEDURE: ABDOMEN/PELVIS W IV CONT ONLY 03/21/2025 REASON FOR EXAM: ABDOMINAL PAIN TECHNIQUE: ABDOMEN/PELVIS W IV CONT ONLY. Coronal and Sagittal reconstruction series were provided. CONTRAST: Isovue-300 VOLUME: 61 mL One or more dose reduction techniques were used (e.g., Automated exposure control, adjustment of the mA and/or kV according to patient size, use of iterative reconstruction technique. RADIATION DOSE SUMMARY: CTDlvol: 16.16 mGy DLP: 852.63 mGycm FINDINGS: The visualized lung bases are unremarkable. Normal liver. Normal gallbladder and extrahepatic biliary system. Normal spleen. Normal pancreas. Normal bilateral adrenal glands. Normal size of the right kidney. There is no right renal mass. There are no right renal calculi. There is no right hydronephrosis. Normal visualized right ureter. Normal size of the left kidney. There is no left renal mass. There are no leftrenal calculi. There is no left hydronephrosis. Normal visualized left ureter. Normal visualized stomach. Normal small intestine. Normal colon. The appendixis visualized and appears normal. There is no demonstrated peritoneal fluid. Normal abdominal aorta. Normal inferior vena cava. Normal retroperitoneum. Normal urinary bladder. There is no pelvic mass lesion or lymphadenopathy. There is no pelvic fluid. An IUD is seen in the endometrial cavity. The ovaries are normal in size and density. Normal abdominal wall. Normal osseous structures. CT/Abdomen/Pelvis W IV Cont ONLY IMPRESSION: Unremarkable CT scan of the abdomen pelvis without evidence of acute intra- abdominal process. Reading Location: [facility] CC: Dr. Elia Barroso DO; Dr. Jennifer Werner MD ~ Welfare Adviser: Signed [facility]06-19-2025 Radiology Diagnostic study note [facility] Imaging Services [address] [place], [place] [id number] Transvaginal Non- MR#: [id number] Acct: [id number] Name: LILLIAN DRAKE Rep #: [id number] : 1985 F 39 From: Kwaku Esquivel MD PCP: Dr. Jennifer Werner MD Status: REG ER Study:Transvaginal Non- Date of Exam: 03/21/25 Exam# [id number] Ordering Dr: Stephany Hurtado PROCEDURE: TRANSVAGINAL NON- 03/21/2025 REASON FOR EXAM: PELVIC PAIN TECHNIQUE: TRANSVAGINAL NON- COMPARISON: 03/06/2025. FINDINGS: Uterus measures 11.1 x 6.0 x 5.3 cm. Anteverted. No fibroids. Endometrium measures 5 mm. Nabothian cysts are present. An intrauterine device is oriented correctly within the endometrial canal. Right ovary measures 2.6 x 1.9 x 2.0 cm with preserved vascular flow. Left ovary measures 3.8 x 2.7 x 2.5 cm with preserved vascular flow. No free fluid. US/Transvaginal Non- IMPRESSION: Intrauterine device in place. Reading Location: [id number] CC: Dr. Jennifer Werner MD; MARCUS Sinclair ~ Welfare Adviser: Signed [facility]06-16-2025 [facility] [address], [address] [place] [address] OFFICE VISIT Date of Service: 03/18/25 MR#: [id number] Acct: [id number] Name: LILLIAN DRAKE Rep #: [id number] : 1985 Provider: Dr. 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 Maria Mike 06/24/22 Gabi 33 live - Male [facility] Maria Mike Delivery Date: 08/14/09 Last Updated [...] no acute distress and welldeveloped Orientation: alert HENMT Head: normal to inspection and normocephalic Ears: [...] OCP- states she has had mood side effectsin the past. (3) Pelvic pain: Status: Acute Comment: suspected secondary to adenomyosis and possible pelvic congestion. failed IUD. plan LAVHBS (4) Adenomyosis: Status: Acute Plan After discussing the patient's diagnosis and treatment plan options, patient wishes to proceed withsurgical management. I have discussed with the patient the risks, benefits, and alternatives of theprocedure which include but are notlimited to risks of anesthesia, bleeding, infection, possible damage to bowel, bladder, or surrounding vasculature which could lead to additional surgery to evaluate any complications. Patient agrees to procedure and wishes to proceed. ACOG/uptodate references given for additional information regarding procedure. 03/18/25 Hallie9 deja PORTILLO> Date _ Maria Regan MD Cosign Signature: Date (if applicable) CC: ~ [facility]06-04-2025 Discharge summary [facility] Medical Records Department [address] [place] [address] Emergency Department Summary 03/06/25 MR#: [id number] Acct: [id number] Name: LILLIAN DRAKE Rep #:[id number] : 1985 39 From: Al Hassan MD PCP: Dr. Jennifer Werner MD Status:[facility] ER Location: ED HPI HPI - GI History of Present Illness Chief Complaint: Abd Pain Informant: patient Narrative Narrative: 39-year-old female has been having pelvic pain off and on for months. She states she had an IUD placed several weeks ago as a result of this hoping it would help the pain but has been making it worseand so she has another appointment with her candy catcher in 2 weeks but was in more severe pain this morning. Is not lateralizing, pelvic, sometimes makes her nauseated no vomitingno fevers or chillsno vaginal discharge or bleeding. She has PCOS and her bleeding is off and on but none recently. She is uncertain if she wants the IUDout right now. She is on no other female hormone prescription medications. This is the same pain has been going on for several months. She states she has an operative planning appointment for possible hysterectomy coming up with same candy catcher. 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 Patient was given morphine in addition [...] Clarity Clear Urine pH 6.0 Ur Specific [place] 1.020 Urine Protein 30 H Urine Glucose [...] 3. Satisfactory intrauterine device positioning Reading Location: [address] Discharge Plan Triage Chief Complaint: Abd [...] 2RF Primary Care Provider: Jennifer Werner Referrals: Maria Regan MD [Med Staff - Active Staff] - Keep [facility] appointment Print Language: Azerbaijani Disposition Disposition: Home, Self Care What to do if you have Problems For any increased pain, shortness of breath, bleeding, nausea or vomiting, chestpain, or any unexpected problems, contact your Primary Care Provider. Call [facility] ([phone]) or report tothe closest Emergency Room. Call 911 if necessary. 03/06/25 8411 Cosigner Signature (if applicable): CC: Dr. Jennifer Werner MD; Dr. Maria Regan MD ~ Signed [facility]06-04-2025 Discharge summary Author Al Hassan [facility] Note Date/Time March 06, 2025 2:59p m [facility] Medical Records Department [address] [place] [address] Emergency Department Summary 03/06/25 MR#: [id number] Acct: [id number] Name: LILLIAN DRAKE Rep #:[id number] : [...] so she has another appointment with her candy catcher in 2 weeks but was in more [...] for possible hysterectomy coming up with same candy catcher. 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 Satisfactory intrauterine device positioning Reading Location: [address] Discharge Plan Triage Chief Complaint: Abd [...] 2RF Primary Care Provider: Jennifer Werner Referrals: Maria Rgean MD [Med Staff - Active Staff] - Keep Mateus[facility] appointment Print Language: Azerbaijani Disposition Disposition: Home, Self Care What to do if you have Problems For any increased pain, shortness of breath, bleeding, nausea or vomiting, chestpain, or any unexpected problems, contact your Primary Care Provider. Call [facility] ([phone]) or report to the closest Emergency Room. Call 911 if necessary. 03/06/25 1459 <Electronically signed by Al Hassan MD> Cosigner Signature (if applicable): CC: Dr. Jennifer Werner MD; Dr. Maria Rgean MD ~ Signed [facility] Work Phone: 1(835) 914-978406-04-2025 Radiology Diagnostic study note [facility] Imaging Services [address] [place] [address] Transvaginal Non- MR#: [id number] Acct: [id number] Name: LILLIAN DRAKE Rep #: [id number] : 1985 F 39 From: Сергей Ortiz MD PCP: Dr. Jennifer Werner MD Status: REG ER Study:Transvaginal Non- Date of Exam: 03/06/25 Exam# [id number]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 Reason for Disposition Severe pain in one eye Protocols used: Zolmmlxg-TWCBJ-FB documented in this encounterBethesda North Hospital06-01-2023 History of Present illness Narrative* Jennifer Christina MD - 03/03/2023 11:59 AM EDT Images from the original note were not included. Dr. Jennifer Werner M.D. Primary care Family Medicine - [place] Visit Date: March 03, 2023 11:59 AM Ms.Kelly Jarek Drake Date of : 1985 MRN/E #: [id number] Chief Complaint: Patient presents with: Medication Follow-up [...] diagnosis. Manic response to Cymbalta. Now on Nehawka, seems is helping, we'll cont. 2. Generalized [...] on 03/03/2023 2:48 PM documented in this encounterBethesda North Hospital05-27-2023 Miscellaneous Notes* Telephone Encounter - Ana Lilia Sterling - 02/26/2023 1:44 PM EDT I spoke to patient and scheduled her next week 03/03/23 at 11:40 documented in this encounterBethesda North Hospital05-09-2023 Miscellaneous Notes* Telephone Encounter - Jennifer Christina MD - 02/08/2023 6:04 PM EDT Chart reviewed, medication refilled. Orders Placed This Encounter DULoxetine (CYMBALTA) 30 mg capsule Sig: Take 1 capsule by mouth once daily. Dispense: 60 capsule Refill: 0 Pharmacy Information Pharmacy Address Telephone [id number] [address] [place] [address] * Telephone Encounter - Natalee Sparrow MA - 02/08/2023 8:40 AM EDT Pharmacy faxed requesting the following refill Requested Prescriptions Pending Prescriptions Disp Refills DULoxetine (CYMBALTA) 30 mg capsule 60 capsule 0 Sig: Take 1 capsule by mouth once daily. Allergies: Dicyclomine, Lexapro [Escitalopram Oxalate], and Penicillins (home) [phone] (cell) Last Visit date: 02/07/2023 Future appointment: 03/30/2023 The patients preferred pharmacy has been captured for this encounter? yes Request is for script(s) to be faxed to pharmacy. OARRS Report for this patient was checked and validated:Not applicable Natalee Sparrow MA documented in this encounterBethesda North Hospital05-08-2023 History of Present illness Narrative* Jennifer Christina MD - 02/07/2023 9:07 AM EDT Images from the original note were not included. Dr. Jennifer Werner M.D. Primary care Family Medicine - [place] Visit Date: February 07, 2023 9:07 AM Ms.Kelly Jarek Drake Date of : 1985 MRN/E #: [id number] Chief Complaint: Patient presents with: Follow Up: [...] major depressive disorder (HCC) F33.1 CONSULT TO [facility] ADULT ELECTRONIC SCALE TESTER AG sertraline (ZOLOFT) 100 mg tablet Symptoms not controlled with current tx. Zoloft reduced due to Wt gain, and switch to Duloxetine ptnever did. Plans to do now. 2. Generalized anxiety disorder F41.1 CONSULT TO [facility] ADULT ELECTRONIC SCALE TESTER AG sertraline (ZOLOFT) 100 mg tablet Worse, [...] on 02/07/2023 5:46 PM documented in this encounterBethesda North Hospital05-02-2023 Miscellaneous Notes* Telephone Encounter - Lucia Zuniga - 02/01/2023 9:09 AM EDT The provider's schedule for February 11 at 1:00 pm was placed on hold by nicole. The patient is currently scheduled for April 25 appointment. Called the patient who doesn't want a sooner appointment. documented in this encounterBethesda North Hospital05-01-2023 Miscellaneous Notes* Telephone Encounter - Sahil Lim LPN - 01/31/2023 3:24 PM EDT Pharmacy [facility] message requesting the following refill Refill(s) Requested: Requested Prescriptions Pending Prescriptions Disp Refills ALPRAZolam (XANAX) 0.5 mg tablet [Pharmacy Med Name: ALPRAZOLAM 0.5 MG TABLET] 20 tablet Sig: take 1 tablet by mouth once daily if needed ALLERGIES Allergen Reactions Dicyclomine Other: See Comments Severe headache. Lexapro [Escitalopr* Other: See Comments Nausea Penicillins Rash (home) [phone] (cell) Last Office Visit Date: 10/20/2022 Last Distance Health Visit: 12/21/2022 Future Appointment: 02/07/2023 The patients preferred pharmacy has been captured for this encounter? yes Request is for script(s) to be escript to pharmacy. Sahil Lim LPN documented in this encounterBethesda North Hospital04-28-2023 Miscellaneous Notes* Telephone Encounter - Natalee Sparrow MA - 01/28/2023 1:21 PM EDT Pharmacy faxed requesting the following refill Requested Prescriptions Pending Prescriptions Disp Refills ALPRAZolam (XANAX) 0.5 mg tablet 20 tablet 0 Sig: Take 1 tablet by mouth once daily as needed for up to 30 days. Allergies: Dicyclomine, Lexapro [Escitalopram Oxalate], and Penicillins (home) [phone] (cell) Last Visit date: 10/20/2022 Future appointment: 03/05/2023 The patients preferred pharmacy has been captured for this encounter? yes Request is for script(s) to be faxed to pharmacy. OARRS Report for this patient was checked and validated:Not applicable Natalee Sparrow MA documented in this encounterBethesda North Hospital03-27-2023 History of Present illness Narrative* Basia Carter MA - 12/27/2022 2:33 PM EDT ED Follow Up: Patient discharged from [facility] ED on 12/26/22. Left message for patient to return call. Basia Carter MA December 27, 2022 2:35 PM documented in this encounterBethesda North Hospital03-26-2023 Hospital Discharge instructions Patient Education 12/26/2022 [...] itchy skin. Ask your healthcare provider about siox-amd-kyvgxny pain relievers. If your pain is severe, [...] and which vaccine is best for you. 6137-3696 The Re-APP. [address] [place] [address]. All rights reserved. This information is not intended as a substitute for professional medical care. Always follow yourhealthcare professional's instructions. Follow Up Care 12/26/2022 11:29:56 With:ROGER COHEN MD Address: [address] [place] [address]- When:2-4 days [facility] 03-26-2023 Note Discharge Instructions Thank you for allowing [facility] to assist you with your healthcare needs. [...] MD When Within 2-4 days Where: [address] [place] [address]- Allergies Bentyl penicillin Medications Please ask your [...] Duration: 7 Days Printed Prescription Unchanged acetaminophen-hydrocodone (Jenks 325- 5 mg oral tablet) 1 tab(s) [...] itchy skin. Ask your healthcare provider about fort-pzd-kelciju pain relievers. If your pain is severe, [...] and which vaccine is best for you. 0725-5402 The Re-APP. [address] [place] [address], [place] [address]. All rights reserved. This information is not intended as a substitute for professional medical care. Always follow yourhealthcare professional's instructions. Additional Information VACCINATE! IT SAVES LIVES! Members of the community who have not yet received the COVID-19 vaccine and would like to receive it can visit one of [facility] vaccine clinics. There are many vaccine clinic locations within the [facility]. For locations and available times, please visit www.gettheshot.coronavirus.[place].gov/. It is important to note that some COVID mobile vaccine clinics are held outdoors and may be canceled in rainy or stormy conditions. To learn more about pediatric vaccinations (ages 5-11), we invite you to visit the [facility] webpage. https://www.akCubicles.org/pages/4519-Vwcgw-Exlpassqoee-Qjlkdhlkvo-Ctirx-Lnz stions.htmlTo learn more about the COVID-19 vaccine, we invite you to visit the CDC website for a list of frequently asked questions. https://www.cdc.gov/coronavirus/2019-ncov/vaccines/faq.html [facility] Patient Portal Access Instructions: Stay connected with your healthcare team and access your personal medical information anytime with the [facility] Patient Portal. If you would like a full copy of your medical records please contact the [facility] Medical Records Department Tuesday through Tuesday between 8a.m. and 4:30p.m. Please follow the directions below to access the portal: 1.Access the email account you provided upon registration to the hospital.2.Look for an invitation email from [facility].3.Open the email and access the invitation link: Accept Invitation to [facility].Fill in the required trujillo to create your account. Sign into www.[employer] with your username and password that you [...] you will allow to register on the [facility] Patient Portal for access to your information. You can also access the [facility] Patient Portal on the Krowder gabriel. Simply click on Health Records under OneIDta and then click on the Estephania logo. [...] Call your local pharmacy or go to http://OneChip Photonics.Profound/7P4Ih5w to find one close to you.3.Make use of household items: Use cat litter or old coffee grounds to dispose medications if other options arenot available. Mix your drugs with these household products, seal them in an airtight container andthrow it into the garbage. Call [facility]: [phone] to be sure your drugs can be [...] been reviewed and explained to me and DON Rubio KELLY C understand my current condition and have read and understand these discharge instructions. I have received a written copy of the plan/instructions. If I have questions, I am aware that I should contact my doctor. 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 Thank You, Karol Chou Ma December 24, 2022 3:45 PM documented in this encounterBethesda North Hospital03-21-2023 History of Present illness Narrative* Jennifer Christina MD - 12/21/2022 10:24 AM EDT Images from the original note were not included. [facility] Medicine [place] Dr. Jennifer Werner M.D. [address] [facility] [address], [place], [address] Dept. Dept. VIRTUAL/PHONE VISIT Visit conducted via MightyHive / Tupalo Video conference (HIPAA compliant video platform). Patient's [...] partial, sustained full, or sustained partial remission ([facility]) 12/10/2014 labor delivered 6 weeks early Recurrent major depressive disorder, in partial remission ([facility]) 11/19/2015 Rh negative state in antepartum period [...] systemic autoimmune diseases. Clinical correlation is required. HEAD COUNSELOR Antibody QUAL 10/29/2022 Positive (A) Negative Final HEAD COUNSELOR Antibody 10/29/2022 1.1 (A) <1.0 AI Final [...] 83 74 - 99 mg/dL Final The [place] Diabetes Association (ADA) provides guidance for cutoff [...] Standards of Medical Care in Diabetes 2016, [place] Diabetes Association. Diabetes Care. 2016.39(Suppl 1). BUN [...] Desk Reference: National Heart, Lung, and Blood [place]. National Institutes of Health. 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 Welfare Adviser: [facility] Transcribe Date/Time: Dec 10 2022 2:53P Dictated [...] 21, 2022 10:53 AM documented in this encounterBethesda North Hospital03-10-2023 History of Present illness Narrative* Stephany [...] Exam(s) Completed: Head: Routine Brain SIGNATURE: RT Octavio(R) PATIENT NAME: Lillian Drake DATE: December 10, 2022 TIME: 1:50 PM documented in this encounterBethesda North Hospital03-06-2023 Miscellaneous Notes* Telephone Encounter - Isidoro Reinoso RN - 12/06/2022 8:44 AM EST LIZETT: 11/12/22 NOV: n/a documented in this encounterBethesda North Hospital02-23-2023 Miscellaneous Notes* Telephone Encounter - Josephine Gutierrez MA - 11/25/2022 1:36 PM EST My Charted the patient to let her know that she can do a virtual appointment to go over her lab results. Josephine Gutierrez CMA 11/25/2022 1:44 PM documented in this encounterBethesda North Hospital02-10-2023 Instructions* Patient Instructions* Kathy Zayas MD - [...] brain to be thorough documented in this encounterBethesda North Hospital02-10-2023 History of Present illness Narrative* Kathy Zayas MD - 11/12/2022 9:00 AM EST Images from the original note were not included. General Neurology Outpatient Clinic - new patient evaluation Date: November 12, 2022 Patient Name: Lillian Drake Referring physician: Maria Luisa Tyler [address] [facility] [address] Primary physician: Jennifer Christina [address] [place] [address] Reason for Evaluation: Headaches HPI: The pt [...] PCOS (polycystic ovarian syndrome) 2008 Polysubstance dependence ([facility]) 06/17/2014 Polysubstance dependence in early, early partial, sustained full, or sustained partial remission (HCC) 12/10/2014 labor delivered 6 weeks early Recurrent major depressive disorder, in partial remission ([facility]) 11/19/2015 Rh negative state in antepartum period [...] Maternal Grandmother Ischemic Heart Disease Maternal Grandfather [place] at later age Diabetes Maternal Grandfather Hypertension [...] 5 Triceps: 5 Biceps: 5 Biceps: 5 Scoop Driver: 5 Scoop Driver: 5 Finger abduction: 5 Finger abduction: 5 [...] proprioception Coordination: Finger-to- nose-finger intact bilaterally and Hgeu-ju-suxp intact bilaterally. Gait: normal-based. Normal tiptoe, heel, [...] which included preparing to see the patient, ysig-vk-qyyz patient care, completing clinical documentation, obtaining and/or reviewing separately obtained history, performing a medically appropriate examination, counseling and educating the pat ient/family/caregiver, ordering medications, tests, or procedures, and independently interpreting results (not separately reported). Kathy Zayas MD Staff, General Neurology Pager: [phone] CC: Referring Physician: Maria Luisa Tyler [address] [facility] [address] PCP: Jennifer Christina [address] [place] [address] documented in this encounterBethesda North Hospital01-30-2023 History of Present illness Narrative* Jennifer Christina MD - 11/01/2022 11:40 AM EST Images from the original note were not included. [facility] Family Medicine [place] [address]. Jennifer Werner M.D. [address], [place], [address] Dept. Dept. VIRTUAL/PHONE VISIT Visit conducted via [...] new problem. 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 Recent stopped Prednisone. Associated symptoms [...] systemic autoimmune diseases. Clinical correlation is required. HEAD COUNSELOR Antibody QUAL 10/29/2022 Positive (A) Negative Final HEAD COUNSELOR Antibody 10/29/2022 1.1 (A) <1.0 AI Final [...] 83 74 - 99 mg/dL Final The [place] Diabetes Association (ADA) provides guidance for cutoff [...] Standards of Medical Care in Diabetes 2016, [place] Diabetes Association. Diabetes Care. 2016.39(Suppl 1). BUN [...] Desk Reference: National Heart, Lung, and Blood [place]. National Institutes of Health. 2001: NIH Publication [...] found for: FREET4 No results found for: [id number] This Team Access Model visit is a [...] diet. We'll recheck in 3-4 months. 3. FCI systemic steroid user Z79.52 Prednisone recently tapered down and discontinued. Pt symptoms, also could be related to withdrawalfrom steroids. Return in about 24 days (around 11/25/2022) for Depression/Anxiety, Labs results. Discussed above plan with patient and/or caregiver. Patient and/or caregiver agreeable with above plan. Total visit time: 15 minutes. Jennifer Christina MD, signed on November 01, 2022 10:59 AM documented in this encounterBethesda North Hospital01-30-2023 History of Present illness Narrative* Maria [...] PCOS (polycystic ovarian syndrome) 2008 Polysubstance dependence ([facility]) 06/17/2014 Polysubstance dependence in early, early partial, sustained full, or sustained partial remission (HCC) 12/10/2014 labor delivered 6 weeks early Recurrent major depressive disorder, in partial remission ([facility]) 11/19/2015 Rh negative state in antepartum period [...] <30 IU/mL <12 Crithidia lucillae Negative Negative Anti-HEAD COUNSELOR <1.0 AI 1.1 (H) Anti-SSB <1.0 AI <0.2 Anti-Sm <1.0 AI <0.2 Sm Antibody Negative Negative Anti-SSA <1.0 AI <0.2 Rheumatoid Factor <16 IU/mL 10 HEAD COUNSELOR Antibody QUAL Negative Positive ! SSA Antibody [...] Plan (R51.9) Headaches (primary encounter diagnosis) (R76.8) BING positive (M79.7) Fibromyalgia (R53.81, R53.83) Malaise and [...] indication for immune suppression Low titre BING, HEAD COUNSELOR likley non specific. Will monitor periodically. No signs of autoimmune disease. Symptoms concerning for fibromyalgia. Office Visit on 11/01/22 CONSULT TO NEUROLOGY No orders of the defined types were placed in this encounter. Return in about 1 year (around 11/01/2023). Maria Luisa Tyler MD documented in this encounterBethesda North Hospital01-25-2023 History of Present illness Narrative* Maria Luisa Tyler MD - 10/27/2022 10:32 AM EST VIRTUAL VISIT PROGRESS NOTE This is a virtual visit using Lovelogicat video visit. It required patient-provider interaction for [...] Maternal Grandmother Ischemic Heart Disease Maternal Grandfather [place] at later age Diabetes Maternal Grandfather Hypertension [...] which included preparing to see the patient, hakq-lj-nrvu patient care, completing clinical documentation, obtaining and/or reviewing separately obtained history, performing a medically appropriate examination, ordering medications, tests, or procedures, and communicating results to the patient/family/caregiver Maria Luisa Tyler MD [facility] on 10/27/22 DNA ANTIBODY DS BLD CRITHIDIA LUCILIAE HEAD COUNSELOR ANTIBODY BLOOD DO IGG AB SJOGREN ABS [...] used - my chart documented in this encounterBethesda North Hospital01-17-2023 History of Present illness Narrative* Shira Older, EXERCISE TEACHER.ULTRASOUND SPECIALIST - 10/19/2022 11:20 AM EST CC: Patient [...] Maternal Grandmother Ischemic Heart Disease Maternal Grandfather [place] at later age Diabetes Maternal Grandfather Hypertension [...] She will need to keep appointment with preschool assistant teacher as scheduled and these concerns can be [...] care. Shira Kimball APRN.CNP documented in this encounterBethesda North Hospital01-05-2023 Hospital Discharge instructions Patient Education 10/07/2022 15:29:13 AA Asia BARR(CUSTOM) Body aches Please follow-up with your preschool assistant teacher regarding your symptoms. I would suggest going to a larger hospital with more specialized care if your symptoms get worse. Document Released: 09/19/2006 Document Revised: 09/05/2013 Document Reviewed: 09/20/2014 ExitCare Patient Information 2015 [employer]. This information is not intended to replace advicegiven to you by your health care provider. Make sure you discuss any questions you have with your health care provider. Follow Up Care 10/07/2022 12:26:01 With:Your preschool assistant teacher Address: When:2-4 days [facility] 01-05-2023 Note Discharge Instructions Thank you for allowing [facility] to assist you with your healthcare needs. The following is importantdischarge information regarding your hospital visit. Diagnosis from Today's Visit Medical screening exam What to Do Next Instructions from Your Care Team No qualifying data available. Post Acute Orders No qualifying data available. You Need to Schedule the Following Appointments Follow Up with Your preschool assistant teacher When Within 2-4 days Where: Allergies Bentyl [...] Duration: 12 Days Printed Prescription Unchanged acetaminophen-hydrocodone (Jenks 325- 5 mg oral tablet) 1 tab(s) [...] Materials Body aches Please follow-up with your preschool assistant teacher regarding your symptoms. I would suggest going to a larger hospital with more specialized care if your symptoms get worse. Document Released: 09/19/2006 Document Revised: 09/05/2013 Document Reviewed: 09/20/2014 ExitCare Patient Information 2015 [facility]. This information is not intended to replace advicegiven to you by your health care provider. Make sure you discuss any questions you have with your health care provider. Additional Information VACCINATE! IT SAVES LIVES! Members of the community who have not yet received the COVID-19 vaccine and would like to receive it can visit one of [facility] vaccine clinics. There are many vaccine clinic locations within the [facility]. For locations and available times, please visit [email or web address]. It is important to note that some COVID mobile vaccine clinics are held outdoors and may be canceled in rainy orstormy conditions. To learn more about pediatric vaccinations (ages 5-11), we invite you to visit the [facility] webpage. https://www.[email or web address]/pages/5458-Hwayp-Jnivcxdness-Bxxewiqxim-Thqya-Rnm stions.htmlTo learn more about the COVID-19 vaccine, we invite you to visit the [facility] website for a list of frequently asked questions. [email or web address]-[email or web address]/zkcie-Dcqkxba-Rjotdhgdtb _Asked-Questions.pdf [facility] Patient Portal Access Instructions: Stay connected with your healthcare team and access your personal medical information anytime with the [facility] Patient Portal. If you would like a full copy of your medical records please contact the [facility] Medical Records Department Tuesday through Tuesday between 8a.m. and 4:30p.m. Please follow the directions below to access the portal: 1.Access the email account you provided upon [facility] the [facility].2.Look for an invitation email from [facility].3.Open the email and access the invitation link: Accept Invitation to [facility]4.Fill in the required trujillo to create your account. Sign into [email or web address] with your username and password that you [...] you will allow to register on the [facility] [employer] Patient Portal for access to your information. You can also access the [facility] Patient Portal on the Krowder gabriel. Simply click on Health Records under HealthData and then click on the E[facility]phania logo. [...] Call your local pharmacy or go to http://bit.Profound/8B4Tl5m to find one close to you.3.Make use of household items: Use cat litter or old coffee grounds to dispose medications if other options arenot available. Mix your drugs with these household products, seal them in an airtight container andthrow it into the garbage. Call [facility]: [phone] to be sure your drugs can be [...] a CHART COPY Signatures Patient Education Materials JIMBO BARR(CUSTOM) Medication Leaflets My discharge plan and instructions have been reviewed and explained to me and I,LILLIAN DRAKE understand my current condition and have read and understand these discharge instructions. I have received a written copy of the plan/instructions. If I have questions, I am aware that I should contact my doctor. 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 To control pain, take prescription or yxfo-hgr-jbjuwzq medicines as directed. Unless told not to, [...] Severe headache, neck pain, drowsiness, or confusion 7462-4808 The Re-APP. [address] [place] [address], [place] [address]. All rights reserved. This information is not intended as a substitute for professional medical care. Always follow yourhealthcare professional's instructions. Follow Up Care 09/27/2022 21:34:39 With:ROGER COHEN MD Address: [address] [place] [id number]- When:2-4 days [facility] 12-26-2022 Note Discharge Instructions Thank you for allowing [facility] to assist you with your healthcare needs. [...] MD When Within 2-4 days Where: [address] [place] [place] [id number]- Allergies Bentyl penicillin Medications Please ask your primary doctor or pharmacist before taking any other medication not listed, including over the counter drugs, herbal medications, vitamins and or supplements as they may interact withyour home medications. What How Much When Why Instructions Last Dose New acetaminophen-hydrocodone (Jenks 325- 5 mg oral tablet) 1 tab(s) [...] action. To control pain, take prescription or ncqd-xzq-kbunxih medicines as directed. Unless told not to, [...] Severe headache, neck pain, drowsiness, or confusion [id number] The Re-APP. [address] [place] [address], [place] [address]. All rights reserved. This information is not intended as a substitute for professional medical care. Always follow yourhealthcare professional's instructions. Additional Information VACCINATE! IT SAVES LIVES! Members of the community who have not yet received the COVID-19 vaccine and would like to receive it can visit one of [facility] vaccine clinics. There are many vaccine clinic locations within the [facility]. For locations and available times, please visit [email or web address]. It is important to note that some COVID mobile vaccine clinics are held outdoors and may be canceled in rainy orstormy conditions. To learn more about pediatric vaccinations (ages 5-11), we invite you to visit the [facility] webpage. [email or web address] learn more about the COVID-19 vaccine, we invite you to visit the [place] website for a list of frequently asked questions. [email or web address] [facility] Patient Portal Access Instructions: Stay connected with your healthcare team and access your personal medical information anytime with the [facility] Patient Portal. If you would like a full copy of your medical records please contact the [facility] Medical Records Department Tuesday through Tuesday between 8a.m. and 4:30p.m. Please follow the directions below to access the portal: 1.Access the email account you provided upon registration to the [facility].2.Look for an invitation email from [facility].3.Open the email and access the invitation link: Accept Invitation to [facility].Fill in the required trujillo to create your account. Sign into www.[employer] with your username and password that you [...] you will allow to register on the [facility] Patient Portal for access to your information. You can also access the [facility] Patient Portal on the [employer]. Simply click on Health Records under HealthData and then click on the [employer] logo. HOW TO SAFELY DISPOSE OF PRESCRIPTION [...] Call your local pharmacy or go to [email or web address] to find one close to you.3.Make use of household items: Use cat litter or old coffee grounds to dispose medications if other options arenot available. Mix your drugs with these household products, seal them in an airtight container andthrow it into the garbage. Call [facility]: [phone] to be sure your drugs can be [...] aware that I should contact my doctor. 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 A respiratory tract infection usually clears up [...] 102 F (39 C). documented [facility] History of Present illness Narrative* Heather Fajardo RT(Prisca) - 08/03/2022 10:00 AM EDT Radiology Service [...] IV DATA: Not applicable SIGNED BY: RT Rohan(Prisca) August 03, 2022 9:57 AM documented in this encounterBethesda [facility] Hospital11-01-[facility]22 History of Present illness Narrative* Livia Trivedi APRN.CNP - 08/03/2022 9:31 AM EDT This note was created using NoteWriter. Subjective Lillian Drake is a 36 year [...] history is provided by the patient. No paving and surfacing labourer was used. Cough This is a new [...] Maternal Grandmother Ischemic Heart Disease Maternal Grandfather [place] at later age Diabetes Maternal Grandfather Hypertension [...] - COVID WITH FLUA+B, ROUTINE Livia Trivedi APRN.ULTRASOUND SPECIALIST documented in this encounterBet[facility] Hospital09-27-[facility] History of Past illness Narrative* Problem [...] of this encounter (statuses as of 10/27/2022) [facility] Narrative* Problem [...] of this encounter (statuses as of 11/01/2022) [facility] Narrative* Problem [...] of this encounter (statuses as of 11/01/2022) [facility] Narrative* Problem [...] of this encounter (statuses as of 11/12/2022) [facility] Narrative* Problem [...] of this encounter (statuses as of 11/25/2022) [facility] Narrative* Problem [...] of this encounter (statuses as of 12/06/2022) [facility] Past [facility] Narrative* Problem [...] 11/21/2014 06/26/2015 Abdominal pain 07/14/2012 03/19/2015 Overview: CG quant NEG 07/12/12. Pt sent to ER for evulation Polycystic ovaries 06/27/2008 03/19/2015 Overview: Meets criteria - amenorrhea, DHEA-S elevated, other labs ok But hasn't had other clinical signs (obesity, acne, hair growth) SECONDARY AMENORRHEA 06/06/2008 03/19/2015 PANIC DISORDER WITHOUT AGORAPHOBIA 06/26/2015 documented as of this encounter (statuses as of 12/21/2022) [facility] Narrative* Problem [...] of this encounter (statuses as of 12/24/2022) [facility] Narrative* Problem [...] of this encounter (statuses as of 12/27/2022) [facility] Narrative* Problem [...] of this encounter (statuses as of 02/01/2023) [facility] Narrative* Problem [...] of this encounter (statuses as of 02/02/2023) [facility] Narrative* Problem [...] of this encounter (statuses as of 02/07/2023) [facility] Narrative* Problem [...] of this encounter (statuses as of 02/08/2023) [facility] Narrative* Problem [...] of this encounter (statuses as of 02/09/2023) [facility] Narrative* Problem [...] of this encounter (statuses as of 02/26/2023) [facility] Narrative* Problem [...] of this encounter (statuses as of 03/03/2023) [facility] Narrative* Problem [...] of this encounter (statuses as of 03/05/2023) [facility] Narrative* Problem [...] of this encounter (statuses as of 03/08/2023) [place] [address]-27-2022 History of Past illness Narrative* Problem Noted [...] of this encounter (statuses as of 03/08/2023) [facility] Narrative* Problem [...] of this encounter (statuses as of 05/09/2023) [facility] Narrative* Problem [...] of this encounter (statuses as of 07/20/2023) [facility] Narrative* Problem [...] of this encounter (statuses as of 08/01/2023) [facility] Narrative* Problem [...] of this encounter (statuses as of 08/07/2023) [facility] Narrative* Problem [...] of this encounter (statuses as of 08/19/2023) [facility] Narrative* Problem [...] of this encounter (statuses as of 08/29/2023) [facility] Narrative* Problem [...] of this encounter (statuses as of 09/07/2023) [facility] Narrative* Problem [...] 11/21/2014 5 Abdominal pain 07/14/2012 03/19/2015 Overview: CG quant NEG 07/12/12. Pt sent to ER for evulation Polycystic ovaries 06/27/2008 5 Overview: Meets criteria - amenorrhea, DHEA-S elevated, other labs ok But hasn't had other clinical signs (obesity, acne, hair growth) SECONDARY AMENORRHEA 06/06/2008 015 PANIC DISORDER WITHOUT AGORAPHOBIA 06/26/2015 documented as of this encounter (statuses as of 12/02/2023) [facility] Narrative* Problem [...] of this encounter (statuses as of 12/06/2023) [facility] Narrative* Problem [...] of this encounter (statuses as of 12/14/2023) [facility] Narrative* Problem [...] of this encounter (statuses as of 12/16/2023) [facility] Narrative* Problem [...] of this encounter (statuses as of 12/26/2023) [facility] Narrative* Problem [...] of this encounter (statuses as of 01/13/2024) [facility] of Present illness Narrative* Yvonne Valdez APRN.ULTRASOUND SPECIALIST - 06/23/2022 3:48 PM EDT Subjective Sore [...] Recurrent major depressive disorder, in partial remission ([facility]) 11/19/2015 Rh negative state in antepartum period [...] Maternal Grandmother Ischemic Heart Disease Maternal Grandfather [place] at later age Diabetes Maternal Grandfather Hypertension [...] analgesia. - Discussed expected course of illness Yvonnejosh Eagle APRN.CNP documented in this encounterBethesda [facility] Hospital09-21-2022 Instructions* Patient Instructions* Yvonne Eagle APRN.CNP - 06/23/2022 3:31 PM EDT ASSESSMENT/PLAN: 1. [...] Discussed expected course of illness Yvonne Eagle APRN.CNP Beginning Home Isolation Isolation is used to [...] to your local emergency facility: Notify the expander machine operator that you are seeking care for [...] or concerning to you. documented in this encounterBethesda [facility] Hospital09-18-2022 Note Attestation signed by Emily Jacobs MD at 06/21/2022 9:35 AM I reviewed and agree with the care provided by the resident/CNM/GABRIEL during the visit including the patient's medical history, the resident's findings in the physical exam, patient's diagnosis and treatment plan. Department of Obstetrics and Gynecology [facility] Discharge Summary Admission on 06/19/2022 12:39 [...] follow-up with her primary OB doctor in [place]. Meds: Medication List START taking these medications [...] twin A Follow up appointment with your doctor/icer hand - Keep next scheduled appointment Activity - Normal Activity Call your doctor/icer hand if you have: - leaking fluid - vaginal bleeding - regular contractions: More than 6 contractions in one hour - decreased movement - worsening abdominal (belly) pain - headache, blurry vision, increased swelling, upper abdominal pain Laura Márquez DO on 06/20/2022 at 2:24 [facility]09-18-2022 Hospital Discharge instructions* Discharge Instructions* Laura Márquez DO - 06/20/2022 2:19 PM EDT Follow up appointment with your doctor/icer hand - Keep next scheduled appointment Activity - Normal Activity Call your doctor/icer hand if you have: - leaking fluid - [...] related visit on 06/20/22. Laura Márquez DO [facility] documented in this [facility] Work Phone: [phone] History of Present illness Narrative* Laura Márquez DO - 06/20/2022 2:17 PM EDT Discussed with patient and she is certain that she got her second dose of BMZ yesterday around 1130just prior to transport. Also found documentation of this in her transfer records from OSH. No additional BMZ given while here at [facility]. * Andre Mac DO - 06/20/2022 6:06 [...] 150 mg 150 mg Oral Daily Jaswinder Maher DO 150 mg at 06/19/222002 sodium chloride flush 0.9 % injection 10 mL 10 mL IntraVENous 2 times per day Jaswinder R Hill, DO sodium chloride flush 0.9 % injection 10 mL 10 mL IntraVENous PRN Jaswinder R Hill, DO 0.9 % sodium chloride infusion IntraVENous PRN Jaswinder R Hill, DO ondansetron (ZOFRAN-ODT) disintegrating tablet 4 mg 4 mg Oral Q8H PRN Jaswinder R Hill, DO Or ondansetron (ZOFRAN) injection 4 mg 4 mg IntraVENous Q6H PRN Jaswinder R Hill, DO acetaminophen (TYLENOL) tablet 650 mg 650 mg Oral Q4H PRN Jaswinder R Gunnar, DO 650 mg at 06/19/22 2113 ropivacaine 0.2% in sodium chloride 0.9% 200mL (OB) epidural 8 mL/hr Epidural Continuous MAURICIO Reinoso CRNA And ropivacaine 0.2% in sodium chloride 0.9% (OB) epidural syringe Epidural Continuous MAURICIO Reinoso CRNA naloxone 0.4 mg in 10 mL sodium chloride syringe IntraVENous PRN Angie Flores APRN - TARIK lactated ringers bolus 1,000 mL IntraVENous PRN Jaswinder Maher, DO oxytocin (PITOCIN) 30 units in 500 mL infusion Override Pull erythromycin (ROMYCIN) 5 MG/GM ophthalmic ointment phytonadione (VITAMIN K) 1 MG/0.5ML injection citric acid-sodium citrate (BICITRA) 500-334 MG/5ML solution hydrOXYzine pamoate (VISTARIL) capsule 25 mg 25 mg Oral TID PRN Jaswinder R Gunnar, DO 25 mg at 06/20/22 0044 Assessment/Plan: [...] A Polyhydramnios Twin B - Follows with [facility] [place] (06/09): Twin A: EFW [...] 06/18-06/19 Further plan pending d/w attending. ANDRE MAC, 06/20/2022, 6:06 AM Associated attestation - Emily [...] staff and nursing Emily Jacobs MD * Olimpia Pino APRN - CLINICAL CARE COORDINATOR - 06/20/2022 2:10 AM EDT Patient up [...] papers were signed. SVE at this time 1/80/-3. BSUS twin A vertex and B transverse [...] with anxiety and frustration. documented in this encounterSUMMA Work Phone: 1(496) 971-883903-20-2022 Hospital Discharge instructions Patient Education 12/20/2021 15:48:41 [...] for heart disease or after a stroke) Pvej-buc-alfgsrf medicines for diarrhea, nausea, and vomiting are generally OK unless you have bleeding, fever, or severe abdominal pain. General care If symptoms are severe, rest at home for the next 24 hours, or until you are feeling better. Washing your hands with soap and water, or using alcohol-based hand bung remover is the best way to stop the [...] after. Wash your hands or use alcohol-based bung remover after using cutting boards, countertops, and knives that have been in contact with raw food. Dry your hands with a single use towel. Keep uncooked meats away from cooked and clydo-ml-hqv foods. Follow-up care Follow up with your [...] every 6 hours), or very dark urine [id number] The Re-APP. [address] [place] [address]. All rights reserved. This information is not intended as a substitute for professional medical care. Always follow yourhealthcare professional's instructions. Follow Up Care 12/20/2021 14:06:01 With:ROGER COHEN MD Address: [address] [place] [address]- When:2-4 days [facility] 10-18-2021 History of Present illness Narrative* Heather Fajardo, RT(R) - 07/20/2021 9:10 AM EDT Radiology [...] 20, 2021 8:59 AM documented in this encounterBet[facility] Hospital10-08-[facility]21 Hospital Discharge instructions* Instructions* Nicolás Wiley MD - 07/10/2021 Please return to the emergency Department immediately for new or worsening symptoms or any new concerns. Please follow-up with your primary care doctor in the next 2-3 days. Please call tomorrow to arrange follow-up as soon as possible with gastroenterology, general surgery, and TESTING CONSULTANT for further evaluation of symptoms. documented in this encounterSMA Work Phone: 1(580) 610-962108-09-2021 Hospital Discharge instructions* Instructions* Angie Alejandro MD [...] sent through Care Everywhere. * Back: Strain (Azerbaijani) * Back: Preventing Injuries (Azerbaijani) * Back Pain: Relief: General Info (Azerbaijani) documented in this encounterSUMPegasus Imaging Corporation Work Phone: 1([phone]) 735-420510-25-2018 History of Past illness Narrative* Problem Noted [...] of this encounter (statuses as of 06/23/2022) [facility] Narrative* Problem [...] of this encounter (statuses as of 08/03/2022) [facility] of Past illness Narrative* Problem [...] of this encounter (statuses as of 10/19/2022) [facility] summary Author Kevin Heart [facility] Note Date/Time February 18, 2025 10:02 am [facility] Medical Records Department [address] [place] [address] Emergency Department Summary 02/18/25 MR#: [id number] Acct: [id number] Name: LILLIAN DRAKE Rep #:[id number] : [...] carrying groceries in and bent over to pick out hand her child and noted that she felt a pop. She states that progressively over the last few daysthe pain in her lower back had been progressing she states that it shoots down both of her legs. She states that she has been urinating normally for self and having normal bowel movements. Patient states that she has been taking qdvuaeejdhqsaj-qtr-lsizu as well as rotating Tylenol and there without much relief. 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 She is vies follow-up with primary care physician return with worsening symptoms and concerns. She is agreeable to plan all question concerns answered she is discharged home in stable condition. Radiography Diagnostic Testing: Clinical Impression(s) from Imaging Studies Lumbar Spine X-Ray 02/18/25 08:53 IMPRESSION: No acute fracture. Reading Location: [facility] Discharge Plan Triage Chief Complaint: Other, Pain/Inj [...] 2RF Primary Care Provider: Jennifer Werner Referrals: [facility] Doctor,Out of [Non-Staff] - Activity Restrictions/Additional Instructions: Follow-up with your doctor in outpatient setting. Return for worsening symptomsor concerns. Rotate Tylenol and ibuprofen ouiqab-tpx-ycgcc when you do this youcan take something every 3 hours. Use the Flexeril/cyclobenzaprine that you have at home for spasms. Do not operate anything under the influence of this medication as it will make you sleepy and drowsy. Print Language: Azerbaijani Disposition Disposition: Home, Self Care What to do if you have Problems For any increased pain, shortness of breath, bleeding, nausea or vomiting, chestpain, or any unexpected problems, contact your Primary Care Provider. Call [facility] ([phone]) or report to the closest Emergency Room. Call 911 if necessary. 02/18/25 1002 <Electronically signed by Kevin Heart DO> Cosigner Signature (if applicable): CC: Dr. Jennifer Werner MD ~ Signed [facility] Work Phone: Evaluation + Plan note No data available for this section [facility] Evaluation note* Diagnosis Strain of lumbar region, initial encounter- Primary documented in this encounter [facility] Work Phone: Evaluation note* Diagnosis Abdominal pain, epigastric- Primary Pelvic pain documented in this encounter [facility] Work Phone: Evaluation noteNo assessment information available [facility] Work Phone: Evaluation note* Diagnosis Onset [...] high risk , antepartum acute Depression chronic [facility] Work Phone: Evaluation note* Diagnosis Onset [...] acute Depression chronic Abdominal wall cellulitis ac [employer] [facility] Work Phone: Evaluation note* Diagnosis Onset [...] acute Depression chronic Abdominal wall cellulitis ac [employer] Cellulitis acute Dichorionic diamniotic twin acute Hypokalemia acute Infertility acute Marijuana use, episodic acut e Nausea/vomiting in acute acute Rh negative status during acute Supervision of high risk , antepartum acute Vaginal bleeding during acute Depression [facility] Work Phone: Evaluation note* Diagnosis Onset [...] Supervision of high risk , antepartum acute [facility] Work Phone: Evaluation note* Diagnosis Onset [...] acute Depression acute Dichorionic diamniotic twin acute [id number] acute IUGR (intrauterine growth restriction) acute Marijuana use, episodic acut e Polyhydramnios affecting acute acute Rh negative status during acute Supervision of high risk , antepartum acute Abnormal glucose level acute Anxiety acute Depression acute Dichorionic diamniotic twin acute [id number] acute IUGR (intrauterine growth restriction) acute Marijuana use, episodic acut e Polyhydramnios affecting acute acute Rh negative status during acute Supervision of high risk , antepartum acute [facility] Work Phone: Evaluation note* Diagnosis Onset [...] acute Depression acute Dichorionic diamniotic twin acute [id number] acute IUGR (intrauterine growth restriction) acute Marijuana use, episodic acut e Polyhydramnios affecting acute acute Rh negative status during acute Supervision of high risk , antepartum acute Abnormal glucose level acute Anxiety acute Depression acute Dichorionic diamniotic twin acute [id number] acute IUGR (intrauterine growth restriction) acute Marijuana use, episodic acut e Polyhydramnios affecting acute acute Rh negative status during acute Supervision of high risk , antepartum acute Abnormal glucose level acute Anxiety acute Depression acute [id number] acute IUGR (intrauterine growth restriction) acute Marijuana use, episodic acut e Polyhydramnios affecting acute acute Rh negative status during acute Supervision of high risk , antepartum acute Threatened labor acu [facility] Work Phone: Evaluation note* Diagnosis Threatened labor, antepartum Threatened premature labor, antepartum documented in this encounter [facility] Work Phone: Evaluation note* Diagnosis Viral illness- Primary Unspecified viral infection, in conditions classified elsewhere and of unspecified site Sore throat Acute pharyngitis [facility] Diagnosis Onset Date Resolution Status [...] during acute Abnormal glucose level resol pan [id number] resolved IUGR (intrauterine growth restriction) resolved Polyhydramnios affecting resolved resolved Supervision of high risk , antepartum resolved Anxiety acute Depression acute Dichorionic diamniotic twin acute Marijuana use, episodic acut e Rh negative status during acute Abnormal glucose level resol pan [id number] resolved IUGR (intrauterine growth restriction) resolved Polyhydramnios affecting resolved resolved Supervision of high risk , antepartum resolved Anxiety acute Depression acute Marijuana use, episodic acut e Rh negative status during acute Abnormal glucose level resol pan [id number] resolved IUGR (intrauterine growth restriction) resolved Polyhydramnios affecting resolved resolved Supervision of high risk , antepartum resolved Threatened labor res [facility] Anxiety acute Depression acute Dichorionic diamniotic twin acute Marijuana use, episodic acut e Rh negative status during acute Threatened labor, antepartum acute Anxiety acute delivery delivered acute Depression acute Dichorionic diamniotic twin acute Marijuana use, episodic acut e Rh negative status during acute Abnormal glucose level resol pan [id number] resolved IUGR (intrauterine growth restriction) resolved Polyhydramnios affecting resolved resolved labor resolved [id number] resolved Supervision of high risk , antepartum resolved Threatened labor res [facility] Work Phone: Evaluation note* Diagnosis Acute cough- Primary URI, acute Acute upper respiratory infections of unspecified site [facility] Onset Date Resolution Status Anxiety acute Depression acute Dichorionic diamniotic twin resolved Marijuana use, episodic reso lved resolved Rh negative status during resolved Supervision of high risk , antepartum resolved Anxiety acute Depression acute Abnormal glucose level resol pan Dichorionic diamniotic twin resolved [id number] resolved IUGR (intrauterine growth restriction) resolved Marijuana use, episodic reso lved Polyhydramnios affecting resolved resolved Rh negative status during resolved Supervision of high risk , antepartum resolved Anxiety acute Depression acute Abnormal glucose level resol pan Dichorionic diamniotic twin resolved [id number] resolved IUGR (intrauterine growth restriction) resolved Marijuana use, episodic reso lved Polyhydramnios affecting resolved resolved Rh negative status during resolved Supervision of high risk , antepartum resolved Lower extremity edema resolv ed Anxiety acute Depression acute Abnormal glucose level resol pan [id number] resolved IUGR (intrauterine growth restriction) resolved Marijuana [...] delivery delivered resolved Dichorionic diamniotic twin resolved [id number] resolved IUGR (intrauterine growth restriction) resolved Marijuana use, episodic reso lved Polyhydramnios affecting resolved resolved labor resolved [id number] resolved Rh negative status during resolved Supervision of high risk , antepartum resolved Threatened labor res olved Postop check noneactive Anxiety acute Depression acute delivery delivered resolved care and examination noneactive Routine gynecological examination noneactive [facility] Work Phone: Evaluation note* Diagnosis Myalgias- Primary Arthralgia of multiple joints Pain in joint, multiple sites Positive BING (antinuclear antibody) Other and unspecified nonspecific immunological findings [facility] Diagnosis Pain in joint, multiple sites- Primary Malaise and fatigue Other malaise and fatigue Fibromyalgia Mylagia and myositis, unspecified BING positive Other and unspecified nonspecific immunological findings [facility]* Diagnosis Generalized anxiety disorder- Primary 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 [facility]* Diagnosis Headaches- Primary BING positive Other and unspecified nonspecific immunological findings Fibromyalgia Mylagia and myositis, unspecified Malaise and fatigue Other malaise and fatigue Pain in joint, multiple sites [facility]* Diagnosis New daily persistent headache- Primary Headaches Mixed headache Headache Medication overuse headache Drug induced headache, not elsewhere classified [facility]* Diagnosis Generalized anxiety disorder- Primary Mixed hyperlipidemia Fibromyalgia Mylagia and myositis, unspecified GERD without esophagitis Esophageal reflux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 Visits Authorized [id number] Closed Auto-Generate d Referral 11/26/2022 12/26/2022 1 [...] section and content) DATE CREATED AUTHOR 05/13/2020 [facility] DATE CREATED AUTHOR AUTHOR'S ORGANIZ ATION 07/15/2021 [facility] DATE CREATED AUTHOR AUTHOR'S ORGANIZ ATION 07/03/2022 [facility] DATE CREATED AUTHOR AUTHOR'S ORGANIZ ATION 07/08/2022 [facility] DATE CREATED AUTHOR AUTHOR'S ORGANIZ ATION 09/30/2022 [facility] DATE CREATED AUTHOR AUTHOR'S ORGANIZ ATION 12/29/2023 [facility] [place]) DATE CREATED AUTHOR AUTHOR'S ORGANIZ ATION 01/02/2025 [facility] DATE CREATED AUTHOR AUTHOR'S ORGANIZ ATION 02/19/2025 [facility] DATE CREATED AUTHOR AUTHOR'S ORGANIZ ATION 03/28/2025 [facility] Ordered Prescriptions (unrec ognized section [...] Jacobo, RN) 0009 (Stopped - Provider: Jaycee Morales RN) morphine injection 4 mg (COMPLETED) 4 mg, IntraVENous, ONCE, On Tue07/10/21 at 2245, For 1 dose, If oral and IV narcotics ordered, use oral first and only use IV if oral is ineffective or cannot take oral. Do Not give oral and IV within 1 hour of each other unless specifically ordered. 2253 (Given - Provider: Rachel Jacobo RN) ondansetron (ZOFRAN) injection 4 mg (COMPLETED) 4 mg, IntraVENous, ONCE, On Tue07/10/21 at 2004, For 1 dose 2217 (Given - Provider: [...] RN) 1999 (Due - Provider: Gurvinder Carroll [facility]) sodium chloride flush 0.9 % injection 10 mL 10 mL, IntraVENous, EVERY 12 HOURS SCHEDULED (2 times per day), First dose on 06/19/22 at 2100, Until Discontinued 193 (Not Given - Provider: Lori Darnell RN [...] 1934, Until 06/20/22 at 0744, Lori Darnell: [place] override, Lori Darnell: cabinet override 1944 (Due) [...] Until 06/20/22 at 0744, Lori Darnell: cabinet overrideCarie Emily: cabinet override 1944 (Due) Linked Groups Order [...] or prosecute any alcohol or drug abuse patient.[facility] the event this information is protected by the Federal Confidentiality of Alcohol and Drug Abuse Patient Records regulations: The Federal rules restrict any use of the information to criminally investigate or prosecute any alcohol or drug abuse patient.[facility] HospitalIn the event this information is protected by the Federal Confidentiality of Alcohol and Drug Abuse Patient Records regulations: The Federal rules restrict any use of the information to criminally investigate or prosecute any alcohol or drug abuse patient.[facility] HospitalIn the event this information is protected by the Federal Confidentiality of Alcohol and Drug Abuse Patient Records regulations: The Federal rules restrict any use of the information to criminally investigate or prosecute any alcohol or drug abuse patient.[facility] HospitalIn the event this information is protected by the Federal Confidentiality of Alcohol and Drug Abuse Patient Records regulations: The Federal rules restrict any use of the information to criminally investigate or prosecute any alcohol or drug abuse patient.[facility] HospitalIn the event this information is protected by the Federal Confidentiality of Alcohol and Drug Abuse Patient Records regulations: The Federal rules restrict any use of the information to criminally investigate or prosecute any alcohol or drug abuse patient.[facility] HospitalIn the event this information is protected by the Federal Confidentiality of Alcohol and Drug Abuse Patient Records regulations: The Federal rules restrict any use of the information to criminally investigate or prosecute any alcohol or drug abuse patient.[facility] HospitalIn the event this information is protected by the Federal Confidentiality of Alcohol and Drug Abuse Patient Records regulations: The Federal rules restrict any use of the information to criminally investigate or prosecute any alcohol or drug abuse patient.[facility] HospitalIn the event this information is protected by the Federal Confidentiality of Alcohol and Drug Abuse Patient Records regulations: The Federal rules restrict any use of the information to criminally investigate or prosecute any alcohol or drug abuse patient.[facility] HospitalIn the event this information is protected by the Federal Confidentiality of Alcohol and Drug Abuse Patient Records regulations: The Federal rules restrict any use of the information to criminally investigate or prosecute any alcohol or drug abuse patient.[facility] HospitalIn the event this information is protected by the Federal Confidentiality of Alcohol and Drug Abuse Patient Records regulations: The Federal rules restrict any use of the information to criminally investigate or prosecute any alcohol or drug abuse patient.[facility] HospitalIn the event this information is protected by the Federal Confidentiality of Alcohol and Drug Abuse Patient Records regulations: The Federal rules restrict any use of the information to criminally investigate or prosecute any alcohol or drug abuse patient.[facility] HospitalIn the event this information is protected by the Federal Confidentiality of Alcohol and Drug Abuse Patient Records regulations: The Federal rules restrict any use of the information to criminally investigate or prosecute any alcohol or drug abuse patient.[facility] HospitalIn the event this information is protected by the Federal Confidentiality of Alcohol and Drug Abuse Patient Records regulations: The Federal rules restrict any use of the information to criminally investigate or prosecute any alcohol or drug abuse patient.[facility] HospitalIn the event this information is protected by the Federal Confidentiality of Alcohol and Drug Abuse Patient Records regulations: The Federal rules restrict any use of the information to criminally investigate or prosecute any alcohol or drug abuse patient.[facility] HospitalIn the event this information is protected by the Federal Confidentiality of Alcohol and Drug Abuse Patient Records regulations: The Federal rules restrict any use of the information to criminally investigate or prosecute any alcohol or drug abuse patient.[facility] HospitalIn the event this information is protected by the Federal Confidentiality of Alcohol and Drug Abuse Patient Records regulations: The Federal rules restrict any use of the information to criminally investigate or prosecute any alcohol or drug abuse patient.[facility] HospitalIn the event this information is protected by the Federal Confidentiality of Alcohol and Drug Abuse Patient Records regulations: The Federal rules restrict any use of the information to criminally investigate or prosecute any alcohol or drug abuse patient.[facility] HospitalIn the event this information is protected by the Federal Confidentiality of Alcohol and Drug Abuse Patient Records regulations: The Federal rules restrict any use of the information to criminally investigate or prosecute any alcohol or drug abuse patient.[facility] HospitalIn the event this information is protected by the Federal Confidentiality of Alcohol and Drug Abuse Patient Records regulations: The Federal rules restrict any use of the information to criminally investigate or prosecute any alcohol or drug abuse patient.[facility] HospitalIn the event this information is protected by the Federal Confidentiality of Alcohol and Drug Abuse Patient Records regulations: The Federal rules restrict any use of the information to criminally investigate or prosecute any alcohol or drug abuse patient.[facility] HospitalIn the event this information is protected by the Federal Confidentiality of Alcohol and Drug Abuse Patient Records regulations: The Federal rules restrict any use of the information to criminally investigate or prosecute any alcohol or drug abuse patient.[facility] HospitalIn the event this information is protected by the Federal Confidentiality of Alcohol and Drug Abuse Patient Records regulations: The Federal rules restrict any use of the information to criminally investigate or prosecute any alcohol or drug abuse patient.[facility] HospitalIn the event this information is protected by the Federal Confidentiality of Alcohol and Drug Abuse Patient Records regulations: The Federal rules restrict any use of the information to criminally investigate or prosecute any alcohol or drug abuse patient.[facility] HospitalIn the event this information is protected by the Federal Confidentiality of Alcohol and Drug Abuse Patient Records regulations: The Federal rules restrict any use of the information to criminally investigate or prosecute any alcohol or drug abuse patient.[facility] HospitalIn the event this information is protected by the Federal Confidentiality of Alcohol and Drug Abuse Patient Records regulations: The Federal rules restrict any use of the information to criminally investigate or prosecute any alcohol or drug abuse patient.[facility] HospitalIn the event this information is protected by the Federal Confidentiality of Alcohol and Drug Abuse Patient Records regulations: The Federal rules restrict any use of the information to criminally investigate or prosecute any alcohol or drug abuse patient.[facility] HospitalIn the event this information is protected by the Federal Confidentiality of Alcohol and Drug Abuse Patient Records regulations: The Federal rules restrict any use of the information to criminally investigate or prosecute any alcohol or drug abuse patient.[facility] HospitalIn the event this information is protected by the Federal Confidentiality of Alcohol and Drug Abuse Patient Records regulations: The Federal rules restrict any use of the information to criminally investigate or prosecute any alcohol or drug abuse patient.[facility] HospitalIn the event this information is protected by the Federal Confidentiality of Alcohol and Drug Abuse Patient Records regulations: The Federal rules restrict any use of the information to criminally investigate or prosecute any alcohol or drug abuse patient.[facility] HospitalIn the event this information is protected by the Federal Confidentiality of Alcohol and Drug Abuse Patient Records regulations: The Federal rules restrict any use of the information to criminally investigate or prosecute any alcohol or drug abuse patient.[facility] HospitalIn the event this information is protected by the Federal Confidentiality of Alcohol and Drug Abuse Patient Records regulations: The Federal rules restrict any use of the information to criminally investigate or prosecute any alcohol or drug abuse patient.[facility] HospitalIn the event this information is protected by the Federal Confidentiality of Alcohol and Drug Abuse Patient Records regulations: The Federal rules restrict any use of the information to criminally investigate or prosecute any alcohol or drug abuse patient.[facility] HospitalIn the event this information is protected by the Federal Confidentiality of Alcohol and Drug Abuse Patient Records regulations: The Federal rules restrict any use of the information to criminally investigate or prosecute any alcohol or drug abuse patient.[facility] HospitalIn the event this information is protected by the Federal Confidentiality of Alcohol and Drug Abuse Patient Records regulations: The Federal rules restrict any use of the information to criminally investigate or prosecute any alcohol or drug abuse patient.[facility] HospitalIn the event this information is protected by the Federal Confidentiality of Alcohol and Drug Abuse Patient Records regulations: The Federal rules restrict any use of the information to criminally investigate or prosecute any alcohol or drug abuse patient.[facility] HospitalIn the event this information is protected by the Federal Confidentiality of Alcohol and Drug Abuse Patient Records regulations: The Federal rules restrict any use of the information to criminally investigate or prosecute any alcohol or drug abuse patient.[facility] HospitalIn the event this information is protected by the Federal Confidentiality of Alcohol and Drug Abuse Patient Records regulations: The Federal rules restrict any use of the information to criminally investigate or prosecute any alcohol or drug abuse patient.[facility] HospitalIn the event this information is protected by the Federal Confidentiality of Alcohol and Drug Abuse Patient Records regulations: The Federal rules restrict any use of the information to criminally investigate or prosecute any alcohol or drug abuse patient.[facility] HospitalIn the event this information is protected by the Federal Confidentiality of Alcohol and Drug Abuse Patient Records regulations: The Federal rules restrict any use of the information to criminally investigate or prosecute any alcohol or drug abuse patient.[facility] HospitalIn the event this information is protected by the Federal Confidentiality of Alcohol and Drug Abuse Patient Records regulations: The Federal rules restrict any use of the information to criminally investigate or prosecute any alcohol or drug abuse patient.[facility] HospitalIn the event this information is protected by the Federal Confidentiality of Alcohol and Drug Abuse Patient Records regulations: The Federal rules restrict any use of the information to criminally investigate or prosecute any alcohol or drug abuse patient.[facility] HospitalIn the event this information is protected by the Federal Confidentiality of Alcohol and Drug Abuse Patient Records regulations: The Federal rules restrict any use of the information to criminally investigate or prosecute any alcohol or drug abuse patient.[facility] HospitalIn the event this information is protected by the Federal Confidentiality of Alcohol and Drug Abuse Patient Records regulations: The Federal rules restrict any use of the information to criminally investigate or prosecute any alcohol or drug abuse patient.[facility] HospitalIn the event this information is protected by the Federal Confidentiality of Alcohol and Drug Abuse Patient Records regulations: The Federal rules restrict any use of the information to criminally investigate or prosecute any alcohol or drug abuse patient.[facility] HospitalIn the event this information is protected by the Federal Confidentiality of Alcohol and Drug Abuse Patient Records regulations: The Federal rules restrict any use of the information to criminally investigate or prosecute any alcohol or drug abuse patient.[facility] HospitalIn the event this information is protected by the Federal Confidentiality of Alcohol and Drug Abuse Patient Records regulations: The Federal rules restrict any use of the information to criminally investigate or prosecute any alcohol or drug abuse patient.[facility] HospitalIn the event this information is protected by the Federal Confidentiality of Alcohol and Drug Abuse Patient Records regulations: The Federal rules restrict any use of the information to criminally investigate or prosecute any alcohol or drug abuse patient.[facility] HospitalIn the event this information is protected by the Federal Confidentiality of Alcohol and Drug Abuse Patient Records regulations: The Federal rules restrict any use of the information to criminally investigate or prosecute any alcohol or drug abuse patient.[facility] HospitalIn the event this information is protected by the Federal Confidentiality of Alcohol and Drug Abuse Patient Records regulations: The Federal rules restrict any use of the information to criminally investigate or prosecute any alcohol or drug abuse patient.[facility] HospitalIn the event this information is protected by the Federal Confidentiality of Alcohol and Drug Abuse Patient Records regulations: The Federal rules restrict any use of the information to criminally investigate or prosecute any alcohol or drug abuse patient.[facility] HospitalIn the event this information is protected by the Federal Confidentiality of Alcohol and Drug Abuse Patient Records regulations: The Federal rules restrict any use of the information to criminally investigate or prosecute any alcohol or drug abuse patient.[facility] HospitalIn the event this information is protected by the Federal Confidentiality of Alcohol and Drug Abuse Patient Records regulations: The Federal rules restrict any use of the information to criminally investigate or prosecute any alcohol or drug abuse patient.[facility] HospitalIn the event this information is protected by the Federal Confidentiality of Alcohol and Drug Abuse Patient Records regulations: The Federal rules restrict any use of the information to criminally investigate or prosecute any alcohol or drug abuse patient.[facility] HospitalIn the event this information is protected by the Federal Confidentiality of Alcohol and Drug Abuse Patient Records regulations: The Federal rules restrict any use of the information to criminally investigate or prosecute any alcohol or drug abuse patient.[facility] HospitalIn the event this information is protected by the Federal Confidentiality of Alcohol and Drug Abuse Patient Records regulations: The Federal rules restrict any use of the information to criminally investigate or prosecute any alcohol or drug abuse patient.[facility] HospitalIn the event this information is protected by the Federal Confidentiality of Alcohol and Drug Abuse Patient Records regulations: The Federal rules restrict any use of the information to criminally investigate or prosecute any alcohol or drug abuse patient.[facility] HospitalIn the event this information is protected by the Federal Confidentiality of Alcohol and Drug Abuse Patient Records regulations: The Federal rules restrict any use of the information to criminally investigate or prosecute any alcohol or drug abuse patient.[facility] Hospital[facility] the event this information is protected by the Federal Confidentiality of Alcohol and Drug Abuse Patient Records regulations: The Federal rules restrict any use of the information to criminally investigate or prosecute any alcohol or drug abuse patient.[facility] HospitalIn the event this information is protected by the Federal Confidentiality of Alcohol and Drug Abuse Patient Records regulations: The Federal rules restrict any use of the information to criminally investigate or prosecute any alcohol or drug abuse patient.[facility] HospitalIn the event this information is protected by the Federal Confidentiality of Alcohol and Drug Abuse Patient Records regulations: The Federal rules restrict any use of the information to criminally investigate or prosecute any alcohol or drug abuse patient.[facility] HospitalIn the event this information is protected by the Federal Confidentiality of Alcohol and Drug Abuse Patient Records regulations: The Federal rules restrict any use of the information to criminally investigate or prosecute any alcohol or drug abuse patient.[facility] HospitalIn the event this information is protected by the Federal Confidentiality of Alcohol and Drug Abuse Patient Records regulations: The Federal rules restrict any use of the information to criminally investigate or prosecute any alcohol or drug abuse patient.[facility] HospitalIn the event this information is protected by the Federal Confidentiality of Alcohol and Drug Abuse Patient Records regulations: The Federal rules restrict any use of the information to criminally investigate or prosecute any alcohol or drug abuse patient.[facility] HospitalIn the event this information is protected by the Federal Confidentiality of Alcohol and Drug Abuse Patient Records regulations: The Federal rules restrict any use of the information to criminally investigate or prosecute any alcohol or drug abuse patient.[facility] HospitalIn the event this information is protected by the Federal Confidentiality of Alcohol and Drug Abuse Patient Records regulations: The Federal rules restrict any use of the information to criminally investigate or prosecute any alcohol or drug abuse patient.[facility] HospitalIn the event this information is protected by the Federal Confidentiality of Alcohol and Drug Abuse Patient Records regulations: The Federal rules restrict any use of the information to criminally investigate or prosecute any alcohol or drug abuse patient.[facility] HospitalIn the event this information is protected by the Federal Confidentiality of Alcohol and Drug Abuse Patient Records regulations: The Federal rules restrict any use of the information to criminally investigate or prosecute any alcohol or drug abuse patient.[facility] Care Teams (unrecognized sec tion and content) Scale Tester Relationship Specialty Start Date End Date Roger Cohen MD [address], [place] [id number] PCP - General Internal Medicine 07/23/14 Scale Tester Relationship Specialty Start Date End Date Roger Cohen MD [address], [place] [address] PCP - General Internal Medicine 07/23/14 Scale Tester Relationship Specialty Start Date End Date Roger Cohen MD [address], [place] [id number] PCP - General Internal Medicine 10/19/22 Scale Tester Relationship Specialty Start Date End Date Jennifer Christina MD [address] [facility] [address] [place] [address] PCP - General Family Medicine 10/20/22 Scale Tester Relationship Specialty Start Date End Date Jennifer Christina MD [address] [place] [address] PCP - General Family Medicine 10/20/22 Scale Tester Relationship Specialty Start Date End Date Jennifer Christina MD [address] [place] [address] PCP - General Family Medicine 10/20/22 Scale Tester Relationship Specialty Start Date End Date Jennifer Christina MD [address] [place] [address] PCP - General Family Medicine 10/20/22 Maria Luisa Tyler MD [address] [place] [address] Referring Internal Medicine 11/03/22 Scale Tester Relationship Specialty Start Date End Date Jennifer Christina MD [address] [place] [address] PCP - General Family Medicine 10/20/22 Maria Luisa Tyler MD [address] [place] [address] Referring Internal Medicine 11/03/22 Scale Tester Relationship Specialty Start Date End Date Jennifer Christina MD [address] [place] [address] PCP - General Family Medicine 10/20/22 Maria Luisa Tyler MD [address] [place] [address] Referring Internal Medicine 11/03/22 Scale Tester Relationship Specialty Start Date End Date Jennifer Christina MD [address] [place] [address] PCP - General Family Medicine 10/20/22 Maria Luisa Tyler MD [address] [place] [address] Referring Internal Medicine 11/03/22 Scale Tester Relationship Specialty Start Date End Date Jennifer Christina MD [address] [place] [address] PCP - General Family Medicine 10/20/22 Maria Luisa Tyler MD [address] [place] [address] Referring Internal Medicine 11/03/22 Scale Tester Relationship Specialty Start Date End Date Jennifer Christina MD [address] [place] [address] PCP - General Family Medicine 10/20/22 Maria Luisa Tyler MD [address] [place] [address] Referring Internal Medicine 11/03/22 Scale Tester Relationship Specialty Start Date End Date Jennifer Christina MD [address] [place] [address] PCP - General Family Medicine 10/20/22 Maria Luisa Tyler MD [address] [place] [address] Referring Internal Medicine 11/03/22 Scale Tester Relationship Specialty Start Date End Date Jennifer Christina MD [address] [place] [address] PCP - General Family Medicine 10/20/22 Maria Luisa Tyler MD [address] [place] [address] Referring Internal Medicine 11/03/22 Scale Tester Relationship Specialty Start Date End Date Jennifer Christina MD [address] [place] [address] PCP - General Family Medicine 10/20/22 Maria Luisa Tyler MD [address] [place] [address] Referring Internal Medicine 11/03/22 Scale Tester Relationship Specialty Start Date End Date Jennifer Christina MD [address] [place] [address] PCP - General Family Medicine 10/20/22 Maria Luisa Tyler MD [address] [place] [address] Referring Internal Medicine 11/03/22 Scale Tester Relationship Specialty Start Date End Date Jennifer Christina MD [address] [place] [address] PCP - General Family Medicine 10/20/22 Maria Luisa Tyler MD [address] [place] [address] Referring Internal Medicine 11/03/22 Scale Tester Relationship Specialty Start Date End Date Jennifer Christina MD [address] [place] [address] PCP - General Family Medicine 10/20/22 Maria Luisa Tyler MD [address] [place] [address] Referring Internal Medicine 11/03/22 Scale Tester Relationship Specialty Start Date End Date Jennifer Christina MD [address] [place] [address] PCP - General Family Medicine 10/20/22 Maria Luisa Tyler MD [address] [place] [address] Referring Internal Medicine 11/03/22 Scale Tester Relationship Specialty Start Date End Date Jennifer Christina MD [address] [place] [address] PCP - General Family Medicine 10/20/22 Maria Luisa Tyler MD [address] [place] [address] Referring Internal Medicine 11/03/22 Scale Tester Relationship Specialty Start Date End Date Jennifer Christina MD [address] [place] [address] PCP - General Family Medicine 10/20/22 Maria Luisa Tyler MD [address] [place] [address] Referring Internal Medicine 11/03/22 Scale Tester Relationship Specialty Start Date End Date Jennifer Christina MD [address] [place], [place] [address] PCP - General Family Medicine 10/20/22 Maria Luisa Tyler MD [address] [place] [address] Referring Internal Medicine 11/03/22 Scale Tester Relationship Specialty Start Date End Date Jennifer Christina MD [address] [place], [place] [address] PCP - General Family Medicine 10/20/22 Maria Luisa Tyler MD [address] [place] [address] Referring Internal Medicine 11/03/22 Scale Tester Relationship Specialty Start Date End Date Jennifer Christina MD [address] [place] [address] PCP - General Family Medicine 10/20/22 Maria Luisa Tyler MD [address] [place] [address] Referring Internal Medicine 11/03/22 Scale Tester Relationship Specialty Start Date End Date Jennifer Christina MD [address] [place] [address] PCP - General Family Medicine 10/20/22 Maria Luisa Tyler MD [address] [place] [address] Referring Internal Medicine 11/03/22 Scale Tester Relationship Specialty Start Date End Date Jennifer Christina MD [address] [place] [address] PCP - General Family Medicine 10/20/22 Maria Luisa Tyler MD [address] [place], [place] [address] Referring Internal Medicine 11/03/22 Scale Tester Relationship Specialty Start Date End Date Jennifer Christina MD [address] [place], [place] [address] PCP - General Family Medicine 10/20/22 Maria Luisa Tyler MD [address] [place], [place] [address] Referring Internal Medicine 11/03/22 Team Status: Active Member Role Status Dates Dr. Roger Cohen MD Family Provider Active JENNIFER WERNER Primary Care Provider Active Team Status: Inactive Member Role Status Dates Dr. Eliseo Ricardo DO Emergency Provider Active ALPHONSO RODRIGUEZ Primary Care Provider Active Scale Tester Relationship Specialty Start Date End Date Jennifer Christina MD [address] [place] [address] PCP - General Family Medicine 10/20/22 Maria Luisa Tyler MD [address] [place], [place] [address] Referring Internal Medicine 11/03/22 Scale Tester Relationship Specialty Start Date End Date Jennifer Christina MD [address] [place] [address] PCP - General Family Medicine 10/20/22 Maria Luisa Tyler MD [address] [place], [place] [address] Referring Internal Medicine 11/03/22 Scale Tester Relationship Specialty Start Date End Date Jennifer Christina MD [address] [place], [place] [address] PCP - General Family Medicine 10/20/22 Maria Luisa Tyler MD [address] [place] [address] Referring Internal Medicine 11/03/22 Scale Tester Relationship Specialty Start Date End Date Jennifer Christina MD [address] [place] [address] PCP - General Family Medicine 10/20/22 Maria Luisa Tyler MD [address] [place] [address] Referring Internal Medicine 11/03/22 Scale Tester Relationship Specialty Start Date End Date Jennifer Christina MD [address] [place] [address] PCP - General Family Medicine 10/20/22 Maria Luisa Tlyer MD [address] [place] [address] Referring Internal Medicine 11/03/22 Scale Tester Relationship Specialty Start Date End Date Jennifer Christina MD [address] [place] [address] PCP - General Family Medicine 10/20/22 Maria Luisa Tyler MD [address] [place] [address] Referring Internal Medicine 11/03/22 Scale Tester Relationship Specialty Start Date End Date Jennifer Christina MD [address] [place] [address] PCP - General Family Medicine 10/20/22 Maria Luisa Tyler MD [address] [place] [address] Referring Internal Medicine 11/03/22 Scale Tester Relationship Specialty Start Date End Date Jennifer Christina MD [address] [place] [address] PCP - General Family Medicine 10/20/22 Maria Luisa Tyler MD [address] [place] [address] Referring Internal Medicine 11/03/22 Scale Tester Relationship Specialty Start Date End Date Jennifer Christina MD [address] [place] [address] PCP - General Family Medicine 10/20/22 Maria Luisa Tyler MD [address] [place] [address] Referring Internal Medicine 11/03/22 Scale Tester Relationship Specialty Start Date End Date Roger Cohen MD [address] [place] [address] PCP - General Internal Medicine 07/23/14 10/18/22 Scale Tester Relationship Specialty Start Date End Date Roger Cohen MD [address] [place] [address] PCP - General Internal Medicine 07/23/14 10/18/22 Scale Tester Relationship Specialty Start Date End Date Jennifer Christina MD [address] [place] [address] PCP - General Family Medicine 10/20/22 Maria Luisa Tyler MD [address] [place] [address] Referring Internal Medicine 11/03/22 Scale Tester Relationship Specialty Start Date End Date Jennifer Christina MD [address] [place] [address] PCP - General Family Medicine 10/20/22 Maria Luisa Tyler MD [address] [place] [address] Referring Internal Medicine 11/03/22 Scale Tester Relationship Specialty Start Date End Date Jennifer Christina MD [address] [place] [address] PCP - General Family Medicine 10/20/22 Maria Luisa Tyler MD [address] [place] [address] Referring Internal Medicine 11/03/22 Scale Tester Relationship Specialty Start Date End Date Jennifer Christina MD [address] [place] [address] PCP - General Family Medicine 10/20/22 Maria Luisa Tyler MD [address] [place] [address] Referring Internal Medicine 11/03/22 Scale Tester Relationship Specialty Start Date End Date Jennifer Werner MD [address] [place] [address] PCP - General Family Medicine 10/20/22 Maria Luisa Tyler MD [address] [place] [address] Referring Internal Medicine 11/03/22 Scale Tester Relationship Specialty Start Date End Date Jennifer Werner MD [address] [place] [address] PCP - General Family Medicine 10/20/22 Maria Luisa Tyler MD [address] [place] [address] Referring Internal Medicine 11/03/22 Scale Tester Relationship Specialty Start Date End Date Jennifer Werner MD [address] [place] [address] PCP - General Family Medicine 10/20/22 Maria Luisa Tyler MD [address] [place] [address] Referring Internal Medicine 11/03/22 Scale Tester Relationship Specialty Start Date End Date Jennifer Werner MD [address] [place] [address] PCP - General Family Medicine 10/20/22 Maria Luisa Tyler MD [address] [place] [address] Referring Internal Medicine 11/03/22 Team Status: Active Member Role Status Dates Out of [facility] Doctor Primary Care Provider Active Team Status: [...] 2025 End: February 08, 2025 Out of [facility] Doctor Primary Care Provider Active Start: February [...] February 18, 2025 End: February 18, 2025 Scale Tester Relationship Specialty Start Date End Date Jennifer Werner MD [address] [facility] [address] [place] [address] PCP - General Family Medicine 10/20/22 Maria Luisa Tyler MD [address] [place], [place] [address] Referring Internal Medicine 11/03/22 Scale Tester Relationship Specialty Start Date End Date Jennifer Werner MD [address] [place], [place] [address] PCP - General Family Medicine 10/20/22 Maria Luisa Tyler MD [address] [place], [place] [address] Referring Internal Medicine 11/03/22 Team Status: Inactive [...] February 27, 2025 End: February 27, 2025 Azeb Morris NP-C Attending Provider Active Start: February 27, 2025 End: February 27, 2025 Scale Tester Relationship Specialty Start Date End Date Jennifer Werner MD [address] [place] [address] PCP - General Family Medicine 10/20/22 Maria Luisa Tyler MD [address] [place], [place] [address] Referring Internal Medicine 11/03/22 Team Status: Inactive [...] March 18, 2025 End: March 18, 2025 Team Status: Inactive Member Role Status Dates Dr. Jennifer Werner MD Primary Care Provider Active Start: March 21, 2025 End: March 22, 2025 Dr. Elia Barroso DO Emergency Provider Activ e Start: March 21, 2025 End: March 22, 2025 Team Status: Inactive Member Role Status Dates Dr. Jennifer Werner MD Primary Care Provider Active Start: March 27, 2025 End: March 27, 2025 Dr. Jennifer Werner MD Referring Provider Active Start: March 27, 2025 End: March 27, 2025 Cinthia Flores GAME TESTER, GAME TESTER-C Attending Provider Active Start: March 27, 2025 End: March 27, 2025 Team Status: Active Member Role/Relationship Status Dates Dr. Jennifer Werner MD Primary Care Provider Active Team Status: Inactive Member Role/Relationship Status Dates Dr. Maria Regan MD Primary Care Provider Acti ve Start: December 21, 2024 End: December 21, 2024 Dr. Maria Regan MD Attending Provider Active Start: December 21, 2024 End: December 21, 2024 Dr. Maria Rgean MD Referring Provider Active Start: December 21, 2024 End: December 21, 2024 Team Status: Inactive Member Role/Relationship Status Dates Dr. Maria Regan MD Primary Care Provider Acti ve Start: January 07, 2025 End: January 07, 2025 Dr. Maria Regan MD Attending Provider Active Start: January 07, 2025 End: January 07, 2025 Dr. Maria Regan MD Referring Provider Active Start: January 07, 2025 End: January 07, 2025 Team Status: Inactive Member Role/Relationship Status Dates Dr. Maria Regan MD Attending Provider Active Start: February 08, 2025 End: February 08, 2025 Dr. Maria Regan MD Referring Provider Active Start: February 08, 2025 End: February 08, 2025 Out of [facility] Doctor Primary Care Provider Active Start: February 08, 2025 End: February 08, 2025 Team Status: Inactive Member Role/Relationship Status Dates Dr. Kevin Heart DO Attending Provider Active Start: February 18, 2025 End: February 18, 2025 Dr. Kevin Heart DO Emergency Provider Active Start: February 18, 2025 End: February 18, 2025 Dr. Jennifer Werner MD Primary Care Provider Active Start: February 18, 2025 End: February 18, 2025 Team Status: Inactive Member Role/Relationship Status Dates Dr. Jennifer Werner MD Primary Care Provider Active Start: February 27, 2025 End: February 27, 2025 Dr. Jennifer Werner MD Referring Provider Active Start: February 27, 2025 End: February 27, 2025 EMERITA Copeland Attending Provider Active Start: February 27, 2025 End: February 27, 2025 Team Status: Inactive Member Role/Relationship Status Dates Dr. Jennifer Werner MD Primary Care Provider Active Start: March 06, 2025 End: March 06, 2025 Dr. Al Hassan MD Attending Provider Active Start: March 06, 2025 End: March 06, 2025 Dr. Al Hassan MD Emergency Provider Active Start: March 06, 2025 End: March 06, 2025 Team Status: Inactive Member Role/Relationship Status Dates Dr. Maria Regan MD Attending Provider Active Start: March 18, 2025 End: March 18, 2025 Dr. Maria Regan MD Referring Provider Active Start: March 18, 2025 End: March 18, 2025 Dr. Jennifer Werner MD Primary Care Provider Active Start: March 18, 2025 End: March 18, 2025 Team Status: Inactive Member Role/Relationship Status Dates Dr. Jennifer Werner MD Primary Care Provider Active Start: March 21, 2025 End: March 22, 2025 Dr. Elia Barroso DO Attending Provider Activ e Start: March 21, 2025 End: March 22, 2025 Dr. Elia Barroso DO Emergency Provider Activ e Start: March 21, 2025 End: March 22, 2025 Team Status: Inactive Member Role/Relationship Status Dates Dr. Jennifer Werner MD Primary Care Provider Active Start: March 27, 2025 End: March 27, 2025 Dr. Jennifer Werner MD Referring Provider Active Start: March 27, 2025 End: March 27, 2025 Cinthia Flores GAME TESTER, GAME TESTER-C Attending Provider Active Start: March 27, 2025 End: March 27, 2025 Team Status: Inactive Member Role/Relationship Status Dates Dr. Jennifer Werner MD Primary Care Provider Active Start: April 08, 2025 End: April 08, 2025 Dr. Gregorio Moralez MD Emergency Provider Active S tart: April 08, 2025 End: April 08, 2025 Care Team (unrecognized sect ion and content) Care Team Personnel Name: ROGER COHEN MD Member Role: Primary Care Physician Address: Address: [address] [place] [address]- Name: CEZAR FRENCH MD Position: ED Physician Member Role: ED Physician Address: Address: [address] [place] [address]- Name: Saranya Hebert RN Position: AO RN Member Role: ED RN Care Team Related Persons Name: SERENITY DRAKE Address: [facility] Name: SERENITY DRAKE Address: [facility] Name: GABI TONEY Address: Home [address] [place] [address] Name: AMAURY TONEY Address: Home [address] [place] [address] Care Team Personnel Name: ROGER COHEN MD Member Role: Primary Care Physician Address: Address: [address] [place], [place] [address] Name: MUMTAZ Menezes Position: AO RN Member Role: ED RN Name: MAVIS SHEPARD MD Position: ED Physician Member Role: ED Physician Address: Address: [address] [address] Care Team Related Persons Name: SERENITY DRAKE Address: [facility] Name: SERENITY DRAKE Address: [facility] Name: GABI TONEY Address: [place] [address] Name: AMAURY TONEY Address: [place] [address] FOR RECORDS PERTAINING TO PATIENTS WHO ARE [...] BE BASED ON THE PRIMARY CLINICAL RECORDS. [facility] [employer] provides no warranty or guarantee of the accuracy or completeness of information in this document.
--- OUTSIDE RECORDS SUMMARY | 2025-04-11 02:15 | XMS RPT_ITS | CCD ---
Author Organization [facility] [place] [facility] Care Team Providers Care Unit Aid Name Role Phone Melecio PORTILLO, Brad Costa Unavailable [phone] Maci Hayes DO Primary Care Provider Unavailable Primary Care Provider Unavailabl e PHYSICIAN, NONE Primary Care Physician Unavailab DR ROGER Osborn MD Primary Care Physician Dr. Roger Cohen Primary Care Provider Sandra COURTESY DRIVER, COURTESY DRIVER-C Cinthia Attending Provider Dr. Roger Cohen Referring Provider Dr. Maria Regan Attending Provider Dr. Veronika Segovia Attending Provider MD Laya [place] Emergency Provider Dr. Vazquez Kumar Admit Provider [...] Care Provider Dr. Roger Cohen Referring Provider [phone] Han Parker, Dr. Banda Attending Provider Dr. [...] Veronika Segovia Referring Provider [phone] Sandra COURTESY DRIVER, COURTESY DRIVER-C Cinthia Attending Provider [phone] ANTONIO PORTILLO, DR CARREON Primary Care Physician BARBI LI Attending Unavailable Roger Cohen MD Primary Care Provider Gabe PORTILLO, Jennifer [facility] er Maria Luisa Tyler MD Unavailable ALPHONSO PORTILLO, DR RODRIGUEZ Primary Care Physician MARTIN LEE, DR JESSICA Quach Attending Unavailable ALPHONSO PORTILLO, DR RODRIGUEZ Primary Care Unavailabl e MARTIN LEE, DR JESSICA Quach Attending Unavailable MARTIN LEE, DR JESSICA Quach Attending Unavailable ANTONIO PORTILLO, DR CARREON Primary Care Unavaila tracy Christina MD, Jennifer [facility] er Roger Cohen MD Primary Care Provider [phone] Alphonso PORTILLO, Jennifer Primary Care Provider WERNER, [...] Provider Dr. Maria Regan MD Attending Provider Dr. Maria Regan MD Referring Provider [facility] Doctor, Out of Primary Care Provider Dr. Kevin Tilley DO Emergency Provider Dr. Jennifer Werner MD Primary Care Provider [phone] FORTINO TEJEDA Attending Unavailable WERNER, JENNIFER Primary [...] Referring Provider Arturo BELTRAN-C, Azeb Attending Provider [phone] Mo PORTILLO, Dr. Melendez Emergency Provider Mo PORTILLO, Dr. Melendez Attending Provider Dr. Elia Barroso DO Emergency Provider Jass PORTILLO, Dr. Sifuentes Primary Care Provider Sandra COURTESY DRIVER-C, Cinthia Attending Provider [phone] Werner, Jennifer Referring Unavailable Werner, Jennifer Primary Care Unavailable BarkmanVinceAzeb Attending Unavailable Werner, Jennifer Primary Care Unavailable Marcanthony, Maria Attending Unavailable Marcanthony, Maria Referring Unavailable Werner, Jennifer Primary Care Unavailable Werner, Jennifer Referring Unavailable [place], Cinthia Attending Unavailable Werner, Jennifer Primary Care Unavailable Werner, Jennifer Referring Unavailable Marcanthony, Maria Attending Unavailable [place], Cinthia Attending Unavailable Barkman, Azeb Attending Unavailable [...] Provider Kirt PORTILLO, Dr. Perkins Emergency Provider [phone] Allergies Allergy Classification Reported Allergen(s) Allergy Type Date of Onset Reaction(s) Facility Anticholinergics (2 sources) Dicyclomine Drug Allergy 03-27-20 18 Other: See Comments [facility] Penicillins (antibiotic) (2 sources) Penicillins Drug Allergy 06-06-20 08 [facility] Serotonin Reuptake Inhibitors (SSRIs) (1 source) Escitalopram Drug Allergy 06-22-20 Other: See Comments [facility] Work Phone: (20 sources) Dicyclomine; Translations: [Dicyclomine] Drug Allergy 03-27-20 18 Other: See Comments [facility] Work Phone: Comment on above: migraine (9 sources) Penicillin; Translations: [penicillins] Drug Allergy 10-17-19 rash [facility] Work Phone: (2 sources) Dicyclomine Drug Allergy 05-11-20 21 [facility] (10 sources) Penicillins; Translations: [PENICILLINS] Propensity to adverse reactions to drug 06-06-20 08 Rash [facility] (15 sources) Penicillins Allergy to substance 05-21-20 22 [facility] (20 sources) Escitalopram; Translations: [ESCITALOPRAM OXALATE] Drug Allergy 06-22-20 Other: See GUILLAUME Tristan [facility] Work Phone: (20 sources) Penicillins Propensity to adverse reactions 06-06-20 08 [facility] (1 source) Escitalopram; Translations: [ESCITALOPRAM] Drug Allergy 06-22-20 [facility] (1 source) Penicillin; Translations: [PENICILLIN G] Drug Allergy 10-17-19 [facility] (4 sources) Penicillins Propensity to adverse reactions 06-06-20 08 [facility] (1 source) Penicillins Drug allergy (disorder) 03-27-20 [facility] Repository Medications Current Medications Medication Drug [...] on above: Take 1 capsule by mo [facility] three times daily as needed for [...] 90 tablet 02/27/2025 05/28/2025 Active Start: 11-22-2024 Victoria Vera Carbon ate 300 mg tablet extended release [...] Comment on above: Take [address] [facility] once daily for 1 day, THEN [...] 1 tablet by jake th once daily Prenat.Vits,Justine,Nsx-Onpa-Iowqe Active 1 TABLET PO DAILY December 20, 2021 11:00pm Start: 12-21-2021 take 1 tablet by jake th once daily Prenat.Vits,Justine,Ekw-Tjap-Nzmsk Active 1 TABLET PO DAILY December 21, [...] T ABS 1 tablet daily SERTRALINE HCL [id number] Lydia Harkins DELIA sertraline HCl ( ZOLOFT [...] 1 tablet by mouth every six hours [place] 325- 5 mg oral tablet Dose = [...] delivery delivered Encounter for delivery without indication [id number] 200 actuat albuterol 0.09 mg/actuat metered dose [...] oral solution (11 sources) alpha-Adrenergic Agonist, Uncompetitive D-syqbhn-I-aspartate Receptor Antagonist, Sigma-1 Agonist Start: End: take [...] Comment on above: [facility] for [...] on above: Take 1 capsule by mo [facility] once daily. escitalopram 10 mg oral [...] on above: Take 1 capsule by mo [facility] daily at bedtime for 30 days. [...] ketorolac (TORADOL) injectio n 30 mg levonorgestrel 0.926167 mg/hr intrauterine system (4 sources) Progestin, Progestin-containing [...] with food. Take 3 tablets by mo [facility] once daily for 7 days. Take 1 tablet by jake once daily for 7 days. Take with Prednisone two 20mg tablets - to make 50mg daily. Prenat.Vits,Justine,Min-I daisy-Folic tablet (8 sources) Start: 12-21-2021 End: 10-11-2024 Prenat.Vits,Justine,Min-Iron- Folic tablet Discontinued 1 {tbl} PO DAILY December 21, 2021 12:00am October 11, 2024 3:09pm Check with primary doctor Start: 12-21-2021 End: 10-11-2024 Prenat.Vits,Justine,Nwi-Jkqz-Ytr ic tablet Discontinued 1 {tbl} PO DAILY [...] Episodic Comment on above: 06/[address] 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 non-steroidal non-inflam (NSAID)] Onset: 06-19-2022 Episodic Other aftercare (1 source) Encounter for follow-up examination after completed treatment for conditions other than malignant neoplasm; Translations: [Follow-up examination, following surgery, unspecified] Episodic Other aftercare (1 source) 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; Translations: [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] Episodic Other [...] Episodic Comment on above: Positive at [facility] om tox screens encouarged cessation Unclassified (18 [...] Auto (Unsp spec) [#/Vol] 2.89 10*3/uL 0.83-4.51 [facility] Absolute neutrophil countOrd ered By: Gregorio Moralez on 04-08-2025 Neutrophils (Bld) [#/Vol] 6.2 10*3/uL 2.0-7.7 [facility] Amorphous sediment detection in urine sediment by light microscopyOrdered By: Gregorio Moralez on 04-08-2025 Amorphous sediment LM Ql (Urine sed) 2+ [facility] Anion gap in Serum or Plasma Ordered By: Gregorio Moralez on 04-08-2025 Anion gap [Moles/Vol] 10 mmol/L 5-15 [facility] Automated lymphocyte count a s percentage of total leukocytesOrdered By: Gregorio Moralez on 04-08-2025 Lymphocytes/100 WBC Auto (Unsp spec) 29.4 % 19-41 [facility] BUN/creatinine ratioOrdered By: Gregorio Moralez on 04-08-2025 Urea nitrogen/Creatinine [Mass ratio] 18.6 mg/mg 10-20 [facility] Basophil percentageOrdered B y: Gregorio Moralez on 04-08-2025 Basophils/100 WBC (Bld) 0.6 % 0-1 [facility] Bilirubin Test strip Ql (U)O rdered By: Gregorio Moralez on 04-08-2025 Bilirubin Ql (U) Negative Negative [facility] Bilirubin, totalOrdered By: Gregorio Moralez on 04-08-2025 Bilirubin [Mass/Vol] 0.35 mg/dL 0.00-1.30 [facility] Carbon dioxide, total [Moles /volume] in Central venous bloodOrdered By: Gregorio Moralez on 04-08-2025 CO2 [Moles/Vol] 22.8 mmol/L 21.0-32.0 [facility] Chloride assayOrdered By: Cristopher Moralez on 04-08-2025 Chloride [Moles/Vol] 107 mmol/L 98-108 [facility] Eosinophil percentageOrdered By: Gregorio Moralez on 04-08-2025 Eosinophils/100 WBC (Bld) 1.8 % 0-5 [facility] Erythrocyte distribution wid th ratioOrdered By: Gregorio Moralez on 04-08-2025 Erythrocyte distribution width (RBC) [Ratio] 14.1 % 11.6-14.6 [facility] Erythrocyte distribution wid th standard deviationOrdered By: Gregorio Moralez on 04-08-2025 Erythrocyte distribution width (RBC) [Ratio] 45.7 fl High 35.1-43.9 [facility] Glomerular filtration rate ( GFR) estimation/1.73 sq m using serum, plasma, or whole bOrdered By: Gregorio Moralez on 04-08-2025 GFR/1.73 sq M.predicted among non-blacks MDRD (S/P/Bld) [Vol rate/Area] 115 mL/min/{1.73_m2} >60 [facility] Comment on above: mL/min/1.73m2 CKD-EP I Creatinine Equation (2020) Hematocrit Auto (Bld) [Volum e fraction]Ordered By: Gregorio Moralez on 04-08-2025 Hematocrit (Bld) [Volume fraction] 38.0 % 37-47 [facility] Hemoglobin measurementOrdere d By: Gregorio Moralez on 04-08-2025 Hemoglobin (Bld) [Mass/Vol] 12.6 g/dL 12.0-15.0 [facility] Immature granulocytes/100 WB C Auto (Bld)Ordered By: Gregorio Moralez on 04-08-2025 Immature granulocytes/100 WBC (Bld) 0.200 % 0.0-0.9 [facility] Comment on above: IG% - Immature Granu locytes (promyelocytes, myelocytes and metamyelocytes) > 1% indicates that a LEFT SHIFT is Present. Ketones Test strip Ql (U)Ord ered By: Gregorio Moralez on 04-08-2025 Ketones Ql (U) Negative Negative [facility] Laboratory - Chemistry and C hemistry - challengeOrdered By: Gregorio Moralez on 04-08-2025 AST [Catalytic activity/Vol] 20 U/L <32 [facility] Comment on above: Hemolysis present, R esults could be affected. Lipase measurementOrdered By : Gregorio Moralez on 04-08-2025 Lipase [Catalytic activity/Vol] 37 U/L 13-75 [facility] Comment on above: Please note:LIPASE r evised reference range effective 23. New Lipase methodology. Expected to produce lower values than the previous assay method. NEW Reference Range: 13 - 75 U/L MCV (mean corpuscular volume ) determinationOrdered By: Gregorio Moralez on 04-08-2025 MCV (RBC) [Entitic vol] 89.4 fL 81-99 [facility] Mean corpuscular hemoglobin (MCH) determinationOrdered By: Gregorio Moralez on 04-08-2025 MCH (RBC) [Entitic mass] 29.6 pg 27.0-32.0 [facility] Mean corpuscular hemoglobin concentration (MCHC) determinationOrdered By: Gregorio Moralez on 04-08-2025 MCHC (RBC) [Mass/Vol] 33.2 g/dL 32-36 [facility] Mean platelet volume determi nationOrdered By: Gregorio Moralez on 04-08-2025 Platelet mean volume (Bld) [Entitic vol] 10.1 fL 6.2-12.0 [facility] Microscopic analysis of urin e for red blood cells (RBC)Ordered By: Gregorio Moralez on 04-08-2025 Microscopic analysis of urine for red blood cells (RBC) 0 SEEN /hpf 0-5 [facility] Monocyte percentageOrdered B y: Gregorio Moralez on 04-08-2025 Monocytes/100 WBC (Bld) 4.7 % 0-10 [facility] Mucus LM Ql (Urine sed)Order ed By: Gregorio Moralez on 04-08-2025 Mucus Ql (Urine sed) 0 SEEN /hpf [facility] Neutrophil percentageOrdered By: Gregorio Moralez on 04-08-2025 Neutrophils/100 WBC (Bld) 63.3 % 47-70 [facility] Nitrite Test strip Ql (U)Ord ered By: Gregorio Moralez on 04-08-2025 Nitrite Ql (U) Negative Negative [facility] Nucleated red blood cell per centageOrdered By: Gregorio Moralez on 04-08-2025 Nucleated RBC/100 WBC (Bld) [Ratio] 0 % 0-5 [facility] Platelet countOrdered By: Cristopher Moralez on 04-08-2025 Platelets (Bld) [#/Vol] 236 10*3/uL 150-450 [facility] Potassium measurement (mass/ volume)Ordered By: Gregorio Moralez on 04-08-2025 Potassium (Unsp spec) [Mass/Vol] 3.6 mmol/L 3.3-5.1 [facility] Comment on above: Hemolysis present, R esults could be affected. Protein Test strip Ql (U)Ord ered By: Gregorio Moralez on 04-08-2025 Protein Ql (U) 30 mg/dl High Negative [facility] RBC Auto (Bld) [#/Vol]Ordere d By: Gregorio Moralez on 04-08-2025 RBC (Bld) [#/Vol] 4.25 10*6/uL 4.2-5.4 [facility] Serum beta-hCG test, qualita tiveOrdered By: Gregorio Moralez on 04-08-2025 Beta HCG ( test) Ql Negative [facility] Serum creatinine measurement (mass/volume)Ordered By: Greogrio Moralez on 04-08-2025 Creatinine [Mass/Vol] 0.67 mg/dL Low 0.70-1.20 [facility] Serum globulin measurementOr dered By: Gregorio Moralez on 04-08-2025 Globulin (S) [Mass/Vol] 2.9 g/dL 2.2-4.2 [facility] Serum glucose measurement (m ass/volume)Ordered By: Gregorio Moralez on 04-08-2025 Glucose [Mass/Vol] 96 mg/dL 70-99 [facility] Serum or plasma alanine clay otransferase (ALT) measurementOrdered By: Gregorio Moralez on 04-08-2025 ALT [Catalytic activity/Vol] 10 U/L <35 [facility] Serum or plasma albumin jazmin urement (mass/volume)Ordered By: Gregorio Moralez on 04-08-2025 Albumin [Mass/Vol] 4.1 g/dL 3.5-5.0 [facility] Serum or plasma albumin/glob ulin mass ratioOrdered By: Gregorio Moralez on 04-08-2025 Albumin/Globulin [Mass ratio] 1.4 {ratio} 0.9-2.4 [facility] Serum or plasma alkaline dedra sphatase measurementOrdered By: Gregorio Moralez on 04-08-2025 ALP [Catalytic activity/Vol] 67 U/L 35-104 [facility] Serum or plasma calcium jazmin urement (mass/volume)Ordered By: Gregorio Moralez on 04-08-2025 Calcium [Mass/Vol] 9.1 mg/dL 7.6-11.0 [facility] Serum or plasma urea nitroge n measurement (mass/volume)Ordered By: Gregorio Moralez on 04-08-2025 Urea nitrogen [Mass/Vol] 12 mg/dL 4-19 [facility] Sodium levelOrdered By: Gregorio Moralez on 04-08-2025 Sodium [Moles/Vol] 140 mmol/L 133-145 [facility] Squamous epithelial cells de tection in urine sediment by light microscopyOrdered By: Gregorio Moralez on 04-08-2025 Epithelial cells.squamous LM Ql (Urine sed) 0-5 SEEN /hpf 5-10 [facility] Total proteinOrdered By: Musa Moralez on 04-08-2025 Protein [Mass/Vol] 7.0 g/dL 5.9-8.4 [facility] Urine clarityOrdered By: Musa Moralez on 04-08-2025 Clarity (U) Cloudy Clear [facility] Urine color determinationOrd ered By: Gregorio Moralez on 04-08-2025 Color (U) Yellow Yellow [facility] Urine glucose detectionOrder ed By: Gregorio Moralez on 04-08-2025 Glucose Ql (U) Normal mg/dl Normal [facility] Urine leukocyte esterase det ection by dipstickOrdered By: Gregorio Moralez on 04-08-2025 Leukocyte esterase Test strip Ql (U) Negative Negative [facility] Urine pHOrdered By: Gregorio osorio on 04-08-2025 pH (U) 8.0 [pH] 5.0 - 8.0 [facility] Urine sediment bacteria coun t by microscopy (number/high power field)Ordered By: Gregorio Moralez on 04-08-2025 Bacteria LM.HPF (Urine sed) [#/Area] 0 /[HPF] None Seen [facility] Urine specific gravity measu rementOrdered By: Gregorio Moralez on 04-08-2025 Specific gravity (U) [Rel density] 1.015 1.002-1.030 [facility] Urine urobilinogen measureme ntOrdered By: Gregorio Moralez on 04-08-2025 Urobilinogen Ql (U) Normal mg/dl Normal [facility] White blood cell (WBC) count Ordered By: Gregorio Moralez on 04-08-2025 WBC (Bld) [#/Vol] 9.8 10*3/uL 4.4-11.0 [facility] White blood cell countOrdere d By: Gregorio Moralez on 04-08-2025 White blood cell count 0 SEEN /hpf 0-5 [facility] [employer] 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 03-27-2025 [employer] Work[employer] Office Visit Report [facility] [address], [address] [place] [address] OFFICE VISIT Date of Service: 03/27/25 MR#: [id number] Acct: [id number] Name: LILLIAN DRAKE Rep #: [id number] : 1985 Provider: EMERITA junior Age/Sex: 39/F Location: [facility] Status: Signed Intake Vital Signs 03/21/25 18:11 03/27/25 11:06 03/27/25 11:10 Height 5 ft 3 in 5 ft 3 in 5 ft 3 in Weight: 165 lb 4 oz BMI 29.2 BP 118/66 Intake Visit Reasons: iud removal Chief Complaint: IUD removal Car Varnisher Required: No Is patient in pain?: No [...] occupational status: employed 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 Normal [facility] Urine Cultureon 03-24-2025 URC Below infection leve l. Mixed Gram Positive Organisms Ruffin Count 1000-10,000 MIXC Mixed contaminants. Submit a new specimen if indicated. Normal [facility] Comment on above: Performed By: #### M 100.2205 #### [facility] [address] [place], [address] Abdomen/Pelvis W IV Cont ONL Yon 03-21-2025 Abdomen/Pelvis W IV Cont ONLY [facility] Imaging Services [address] [place] [address] Abdomen/Pelvis W IV Cont ONLY MR#: [id number] Acct: [id number] Name: LILLIAN DRAKE Rep #: [id number] : 1985 F 39 From: Chapis carrizales MD PCP: Dr. Jennifer Werner MD Status: REG ER Study: Abdomen/Pelvis W IV Cont ONLY Date of Exam: Exam# [id number] Ordering Dr: Elia Barroso DO PROCEDURE: ABDOMEN/PELVIS [...] evidence of acute intra-abdominal process. Reading [facility] CC: Dr. Elia Barroso DO; Dr. Jennifer Werner MD Transcribing Machine Mechanic: Signed Normal [facility] Absolute lymphocyte countOrd ered By: Stephanyleana Benavides on 03-21-2025 Lymphocytes Auto (Unsp spec) [#/Vol] 2.91 10*3/uL 0.83-4.51 [facility] Absolute neutrophil countOrd ered By: Stephany Benavides on 03-21-2025 Neutrophils (Bld) [#/Vol] 5.8 10*3/uL 2.0-7.7 [facility] Anion gap in Serum or Plasma Ordered By: Elia Barroso on 03-21-2025 Anion gap [Moles/Vol] 13 mmol/L 5-15 [facility] Automated blood erythrocyte countOrdered By: Stephany Benavides on 03-21-2025 RBC (Bld) [#/Vol] 4.51 10*6/uL 4.2-5.4 [facility] Comment on above: Performed By: #### L 500.2500, L100.0100 ####[facility] [id number] [facility] [place], [place], [id number] Automated blood hematocrit ( percentage)Ordered By: Stephany Benavides on 03-21-2025 Hematocrit (Bld) [Volume fraction] 39.4 % 37-47 [facility] Comment on above: Performed By: #### L 500.2500, L100.0100 ####[facility] [id number] [place], [address] Automated lymphocyte count a s percentage of total leukocytesOrdered By: Stephany Benavides on 03-21-2025 Lymphocytes/100 WBC Auto (Unsp spec) 30.3 % - [facility] BUN/creatinine ratioOrdered By: Elia Barroso on 03-21-2025 Urea nitrogen/Creatinine [Mass ratio] 28.5 mg/mg High 10- [facility] Basic Metabolic Profile (BMP )on 03-21-2025 BUN Normal - [facility] Comment on above: Result Comment: Meche guerrero via DANIEL: Ordered Performed By: #### L 500.2500, L100.0100 #### [facility] [address] [place], [address] BUN/CRE Normal 10-20 [facility] Comment on above: Result Comment: Canc elled via OM: MD Ordered Performed By: #### L 500.2500, L100.0100 #### [facility] [address] [place], [address] Calcium Normal 7.6-11.0 [facility] Comment on above: Result Comment: Canc elled via OM: MD Ordered Performed By: #### L 500.2500, L100.0100 #### [facility] [address] [place], [address] CL Normal 98-108 [facility] Comment on above: Result Comment: Canc elled via OM: MD Ordered Performed By: #### L 500.2500, L100.0100 #### [facility] [address] [place], [address] CO2 Normal 21.0-32.0 [facility] Comment on above: Result Comment: Canc elled via OM: MD Ordered Performed By: #### L 500.2500, L100.0100 #### [facility] [address] [place], [address] CREAT,SERUM Normal 0.70-1.20 [facility] Comment on above: Result Comment: Canc elled via OM: MD Ordered Performed By: #### L 500.2500, L100.0100 #### [facility] [address] [place], [address] eGFR Normal >60 [facility] Comment on above: Result Comment: Canc elled via OM: MD Ordered Performed By: #### L 500.2500, L100.0100 #### [facility] [address] [place], [address] GAP Normal 5-15 [facility] Comment on above: Result Comment: Canc elled via OM: MD Ordered Performed By: #### L 500.2500, L100.0100 #### [facility] [address] [place], [address] GLU Normal 70-99 [facility] Comment on above: Result Comment: Canc elled via OM: MD Ordered Performed By: #### L 500.2500, L100.0100 #### [facility] [address] [place], [address] Potassium Normal 3.3-5.1 [facility] Comment on above: Result Comment: Canc elled via OM: MD Ordered Performed By: #### L 500.2500, L100.0100 #### [facility] [address] [place], [address] Basic Metabolic Profile (BMP) Normal 133-145 [facility] Comment on above: Result Comment: Canc elled via OM: MD Ordered Performed By: #### L 500.2500, L100.0100 #### [facility] [address] [place], [address] Basophil percentageOrdered B y: Stephany Benavides on 03-21-2025 Basophils/100 WBC (Bld) 0.6 % 0-1 [facility] Comment on above: Performed By: #### L 500.2500, L100.0100 ####[facility] [address] [place], [address] Bilirubin Test strip Ql (U)O rdered By: Stephany Benavides on 03-21-2025 Bilirubin Ql (U) Negative Negative [facility] Bilirubin, totalOrdered By: Elia Barroso on 03-21-2025 Bilirubin [Mass/Vol] 0.21 mg/dL 0.00-1.30 [facility] CBC W/Diff, Automatedon 03-03 Absolute Lymph 2.91 X10 3/uL Normal 0.83-4.51 [facility] Comment on above: Performed By: #### L 500.2500, L100.0100 ####[facility] [address] [place], [address] Absolute Neut 5.8 X10 3/uL Normal 2.0-7.7 [facility] Comment on above: Performed By: #### L 500.2500, L100.0100 ####[facility] [address] [place], [address] IG% 0.400 Normal 0.0-0.9 [facility] Comment on above: Result Comment: IG% - Immature Granulocytes (promyelocytes, myelocytes and metamyelocytes) > 1% indicates that a LEFT SHIFT is Present. Performed By: #### L 500.2500, L100.0100 ####[facility] [address] [place], [address] Lymphocytes/100 WBC (Bld) 30.3 % Normal 19-41 [facility] Comment on above: Performed By: #### L 500.2500, L100.0100 ####[facility] [address] [place], [address] Nucleated RBC (Bld) [#/Vol] 0 10*3/uL Normal 0-5 [facility] Comment on above: Performed By: #### L 500.2500, L100.0100 ####[facility] [address] [place], [address] RDW SD 43.8 fl Normal 35.1-43.9 [facility] Comment on above: Performed By: #### L 500.2500, L100.0100 ####[facility] [address] [place], [address] Carbon dioxide, total [Moles /volume] in Central venous bloodOrdered By: Elia Barroso on 03-21-2025 CO2 [Moles/Vol] 19.6 mmol/L Low 21.0-32.0 [facility] Chloride assayOrdered By: Earl Barroso on 03-21-2025 Chloride [Moles/Vol] 106 mmol/L 98-108 [facility] Comprehensive Metabolic Prof ilon 03-21-2025 Albumin [Mass/Vol] 4.1 g/dL Normal 3.5-5.0 [facility] Comment on above: Performed By: #### M 100.3200, , L7400.0280, L7000.1800 #### [facility] [address] [place], [address] Albumin/Globulin [Mass ratio] 1.3 {ratio} Normal 0.9-2.4 [facility] Comment on above: Performed By: #### M 100.3200, , L7400.0280, L7000.1800 #### [facility] [address] [place], [address] ALK PHOS 63 U/L Normal 35-104 [facility] Comment on above: Performed By: #### M 100.3200, , L7400.0280, L7000.1800 #### [facility] [address] [place], [address] ALT [Catalytic activity/Vol] 11 U/L Normal <=34 [facility] Comment on above: Performed By: #### M 100.3200, , L7400.0280, L7000.1800 #### [facility] [address] [place], [address] AST [Catalytic activity/Vol] 15 U/L Normal <=31 [facility] Comment on above: Performed By: #### M 100.3200, M1, L7400.0280, L7000.1800 #### [facility] [address] [place], [address] Bilirubin [Mass/Vol] 0.21 mg/dL Normal 0.00-1.30 [facility] Comment on above: Performed By: #### M 100.3200, , L7400.0280, L7000.1800 #### [facility] [address] [place], [address] BUN/CRE 28.5 RATIO High 10-20 [facility] Comment on above: Performed By: #### M 100.3200, , L7400.0280, L7000.1800 #### [facility] [address] [place], [address] Calcium [Mass/Vol] 9.3 mg/dL Normal 7.6-11.0 [facility] Comment on above: Performed By: #### M 100.3200, , L7400.0280, L7000.1800 #### [facility] [address] [place], [address] Chloride [Moles/Vol] 106 mmol/L Normal 98-108 [facility] Comment on above: Performed By: #### M 100.3200, , L7400.0280, L7000.1800 #### [facility] [address] [place], [address] CO2 [Moles/Vol] 19.6 mmol/L Low 21.0-32.0 [facility] Comment on above: Performed By: #### M 100.3200, , L7400.0280, L7000.1800 #### [facility] [address] [place], [address] Creatinine [Mass/Vol] 0.62 mg/dL Low 0.70-1.20 [facility] Comment on above: Performed By: #### M 100.3200, M1, L7400.0280, L7000.1800 #### [facility] [address] [place], [address] ECRCL 120.73 ml/min Normal 50-250 [facility] Comment on above: Performed By: #### M 100.3200, .1999, L7400.0280, L7000.1800 #### [facility] [address] [place], [address] GAP 13 Normal 5-15 [facility] Comment on above: Performed By: #### M 100.3200, , L7400.0280, L7000.1800 #### [facility] [address] [place], [address] GFR/1.73 sq M.predicted among non-blacks MDRD (S/P/Bld) [Vol rate/Area] 118 mL/min/{1.73_m2} Normal >60 [facility] Comment on above: Result Comment: mL/m in/1.73m2 CKD-EPI Creatinine Equation (2020) Performed By: #### M 100.3200, , L7400.0280, L7000.1800 #### [facility] [address] [place], [address] Globulin (S) [Mass/Vol] 3.1 g/dL Normal 2.2-4.2 [facility] Comment on above: Performed By: #### M 100.3200, , L7400.0280, L7000.1800 #### [facility] [address] [place], [address] Glucose [Mass/Vol] 115 mg/dL High 70-99 [facility] Comment on above: Performed By: #### M 100.3200, M1, L7400.0280, L7000.1800 #### [facility] [address] [place], [address] Potassium [Moles/Vol] 3.4 mmol/L Normal 3.3-5.1 [facility] Comment on above: Performed By: #### M 100.3200, M100.1999, L7400.0280, L7000.1800 #### [facility] [address] [place], [address] Sodium [Moles/Vol] 138 mmol/L Normal 133-145 [facility] Comment on above: Performed By: #### M 100.3200, M100.1999, L7400.0280, L7000.1800 #### [facility] [address] [place], [address] T PROT 7.2 g/dL Normal 5.9-8.4 [facility] Comment on above: Performed By: #### M 100.3200, M100.1999, L7400.0280, L7000.1800 #### [facility] [address] [place], [address] Urea nitrogen [Mass/Vol] 18 mg/dL Normal 4-19 [facility] Comment on above: Performed By: #### M 100.3200, M100.1999, L7400.0280, L7000.1800 #### [facility] [address] [place], [address] Emergency Department Summary on 03-21-2025 Emergency Department Summary [facility] Medical Records Department [address] [place] [address] Emergency Department Summary 03/21/25 MR#: [id number] Acct: [id number] Name: LILLIAN DRAEK Rep #: [id number] : 1985 39 From: Elia Barroso DO [...] hysterectomy which will be scheduled next month. 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 Normal [facility] Eosinophil percentageOrdered By: Stephany Benavides on 03-21-2025 Eosinophils/100 WBC (Bld) 2.9 % 0-5 [facility] Comment on above: Performed By: #### L 500.2500, L100.0100 ####[facility] [address] [place], [address] Erythrocyte distribution wid th ratioOrdered By: Stephany Benavides on 03-21-2025 Erythrocyte distribution width (RBC) [Ratio] 13.8 % 11.6-14.6 [facility] Comment on above: Performed By: #### L 500.2500, L100.0100 ####[facility] [address] [place], [address] Erythrocyte distribution wid th standard deviationOrdered By: Stephany Benavides on 03-21-2025 Erythrocyte distribution width (RBC) [Ratio] 43.8 fl 35.1-43.9 [facility] Glomerular filtration rate ( GFR) estimation/1.73 sq m using serum, plasma, or whole bOrdered By: Elia Barroso on 03-21-2025 GFR/1.73 sq M.predicted among non-blacks MDRD (S/P/Bld) [Vol rate/Area] 118 mL/min/{1.73_m2} >60 [facility] Comment on above: mL/min/1.73m2 CKD-EP I Creatinine Equation (2020) Hemoglobin measurementOrdere d By: Stephany Benavides on 03-21-2025 Hemoglobin (Bld) [Mass/Vol] 12.9 g/dL 12.0-15.0 [facility] Comment on above: Performed By: #### L 500.2500, L100.0100 ####[facility] [address] [place], [address] Immature granulocytes/100 WB C Auto (Bld)Ordered By: Stephany Benavides on 03-21-2025 Immature granulocytes/100 WBC (Bld) 0.400 % 0.0-0.9 [facility] Comment on above: IG% - Immature Granu locytes (promyelocytes, myelocytes and metamyelocytes) > 1% indicates that a LEFT SHIFT is Present. Ketones Test strip Ql (U)Ord ered By: Stephany Benavides on 03-21-2025 Ketones Ql (U) Negative Negative [facility] - Chemistry and C hemistry - challengeOrdered By: Elia Barroso on 03-21-2025 AST [Catalytic activity/Vol] 15 U/L <32 [facility] Lipaseon 03-21-2025 Lipase [Catalytic activity/Vol] 69 U/L Normal 13-75 [facility] Comment on above: Result Comment: Pleleana ann note: LIPASE revised reference range effective 23. New Lipase methodology. Expected to produce lower values than the previous assay method. NEW Reference Range: 13 - 75 U/L Performed By: #### M 100.3200, M100.2000, L7400.0280, L7000.1800 #### [facility] [address] [place], [address] Lipase measurementOrdered By : Elia Barroso on 03-21-2025 Lipase [Catalytic activity/Vol] 69 U/L 13-75 [facility] Comment on above: Please note:LIPASE r evised reference range effective 23. New Lipase methodology. Expected to produce lower values than the previous assay method. NEW Reference Range: 13 - 75 U/L MCV (mean corpuscular volume ) determinationOrdered By: Stephany Benavides on 03-21-2025 MCV (RBC) [Entitic vol] 87.4 fL 81-99 [facility] Comment on above: Performed By: #### L 500.2500, L100.0100 ####[facility] [address] [place], [address] Mean corpuscular hemoglobin (MCH) determinationOrdered By: Stephany Benavides on 03-21-2025 MCH (RBC) [Entitic mass] 28.6 pg 27.0-32.0 [facility] Comment on above: Performed By: #### L 500.2500, L100.0100 ####[facility] [address] [place], [address] Mean corpuscular hemoglobin concentration (MCHC) determinationOrdered By: Stephany Benavides on 03-21-2025 MCHC (RBC) [Mass/Vol] 32.7 g/dL 32-36 [facility] Comment on above: Performed By: #### L 500.2500, L100.0100 ####[facility] [address] [place], [place], [address] Mean platelet volume determi nationOrdered By: Stephany Benavides on 03-21-2025 Platelet mean volume (Bld) [Entitic vol] 10.2 fL 6.2-12.0 [facility] Comment on above: Performed By: #### L 500.2500, L100.0100 ####[facility] [address] [place], [place], [address] Microscopic analysis of urin e for red blood cells (RBC)Ordered By: Stephany Benavides on 03-21-2025 Microscopic analysis of urine for red blood cells (RBC) 0 SEEN /hpf 0-5 [facility] Monocyte percentageOrdered B y: Stephany Benavides on 03-21-2025 Monocytes/100 WBC (Bld) 5.2 % 0-10 [facility] Comment on above: Performed By: #### L 500.2500, L100.0100 ####[facility] [address] [place], [place], [address] Mucus LM Ql (Urine sed)Order ed By: Stephany Benavides on 03-21-2025 Mucus Ql (Urine sed) 2+ /hpf [facility] Neutrophil percentageOrdered By: Stephany Benavides on 03-21-2025 Neutrophils/100 WBC (Bld) 60.6 % 47-70 [facility] Comment on above: Performed By: #### L 500.2500, L100.0100 ####[facility] [address] [place], [place], [address] Nitrite Test strip Ql (U)Ord ered By: Stephany Benavides on 03-21-2025 Nitrite Ql (U) Negative Negative [facility] Nucleated red blood cell per centageOrdered By: Stephany Benavides on 03-21-2025 Nucleated RBC/100 WBC (Bld) [Ratio] 0 % 0-5 [facility] Platelet countOrdered By: Adriana Benavides on 03-21-2025 Platelets (Bld) [#/Vol] 246 10*3/uL 150-450 [facility] Comment on above: Performed By: #### L 500.2500, L100.0100 ####[facility] [address] [place], [place], [address] Potassium measurement (mass/ volume)Ordered By: Elia Barroso on 03-21-2025 Potassium (Unsp spec) [Mass/Vol] 3.4 mmol/L 3.3-5.1 [facility] ,Urineon 03-21-2025 Beta HCG ( test) Ql (U) Negative Normal [facility] Comment on above: Result Comment: Very dilute urine specimens, as indicated by a low specific gravity, may not contain escrow representative levels of hCG. If is still suspected, a first morning urine specimen should be collected 48 hours later and tested. Performed By: #### L 400.7600, L400.0001 #### [facility] [address] [place], [place], [address] Protein Test strip Ql (U)Ord ered By: Stephany Benavides on 03-21-2025 Protein Ql (U) 30 mg/dl High Negative [facility] Serum creatinine measurement (mass/volume)Ordered By: Elia Barroso on 03-21-2025 Creatinine [Mass/Vol] 0.62 mg/dL Low 0.70-1.20 [facility] Serum globulin measurementOr dered By: Elia Barroso on 03-21-2025 Globulin (S) [Mass/Vol] 3.1 g/dL 2.2-4.2 [facility] Serum glucose measurement (m ass/volume)Ordered By: Elia Barroso on 03-21-2025 Glucose [Mass/Vol] 115 mg/dL High 70-99 [facility] Serum or plasma alanine clay otransferase (ALT) measurementOrdered By: Elia Barroso on 03-21-2025 ALT [Catalytic activity/Vol] 11 U/L <35 [facility] Serum or plasma albumin jazmin urement (mass/volume)Ordered By: Elia Laird on 03-21-2025 Albumin [Mass/Vol] 4.1 g/dL 3.5-5.0 [facility] Serum or plasma albumin/glob ulin mass ratioOrdered By: Elia Barroso on 03-21-2025 Albumin/Globulin [Mass ratio] 1.3 {ratio} 0.9-2.4 [facility] Serum or plasma alkaline dedra sphatase measurementOrdered By: Elia Barroso on 03-21-2025 ALP [Catalytic activity/Vol] 63 U/L 35-104 [facility] Serum or plasma calcium jazmin urement (mass/volume)Ordered By: Elia Laird on 03-21-2025 Calcium [Mass/Vol] 9.3 mg/dL 7.6-11.0 [facility] Serum or plasma urea nitroge n measurement (mass/volume)Ordered By: Elia Barroso on 03-21-2025 Urea nitrogen [Mass/Vol] 18 mg/dL 4-19 [facility] Sodium levelOrdered By: Sonido Barroso on 03-21-2025 Sodium [Moles/Vol] 138 mmol/L 133-145 [facility] Squamous epithelial cells de tection in urine sediment by light microscopyOrdered By: Stephany Benavides on 03-21-2025 Epithelial cells.squamous LM Ql (Urine sed) 10-25 SEEN /hpf 5-10 [facility] Total proteinOrdered By: Vance Barroso on 03-21-2025 Protein [Mass/Vol] 7.2 g/dL 5.9-8.4 [facility] Transvaginal Non-on 03-21-2025 Transvaginal Non- [facility] Imaging Services [facility] [address] [place], [place] [id number] Transvaginal Non- MR#: [id number] Acct: [id number] Name: LILLIAN DRAKE Rep #: [id number] : 1985 F 39 From: Reena Esquivel MD PCP: Dr. Jennifer Werner MD Status: REG ER Study: Transvaginal Non- Date of Exam: Exam# [id number] Ordering Dr: Stephany Benavides PROCEDURE: TRANSVAGINAL NON- [...] IMPRESSION: Intrauterine device in place. Reading Location: [id number] CC: Dr. Jennifer Werner MD; MARCUS Sinclair Transcribing Machine Mechanic: Signed Normal [facility] Urinalysis, Completeon 03-21 BACTERIA 3+ /hpf Normal None Seen [facility] Comment on above: Order Comment: CLEAN CATCH Performed By: #### L 400.7600, L400.0001 #### [facility] [address] [place], [address] EPI,SQUAMOUS 10-25 SEEN Normal 5-10 [facility] Comment on above: Order Comment: CLEAN CATCH Performed By: #### L 400.7600, L400.0001 #### [facility] [address] [place], [address] Mucus Ql (Urine sed) 2+ /hpf Normal [facility] Comment on above: Order Comment: CLEAN CATCH Performed By: #### L 400.7600, L400.0001 #### [facility] [address] [place], [address] WBC 0-5 SEEN Normal 0-5 [facility] Comment on above: Order Comment: CLEAN CATCH Performed By: #### L 400.7600, L400.0001 #### [facility] [address] [place], [address] BILIRUBIN URINE Negative Normal Negative [facility] Comment on above: Order Comment: CLEAN CATCH Performed By: #### L 400.7600, L400.0001 #### [facility] [address] [place], [address] Clarity (U) Sl. Cloudy Normal Clear [facility] Comment on above: Order Comment: CLEAN CATCH Performed By: #### L 400.7600, L400.0001 #### [facility] [address] [place], [address] Color (U) Yellow Normal Yellow [facility] Comment on above: Order Comment: CLEAN CATCH Performed By: #### L 400.7600, L400.0001 #### [facility] [address] [place], [address] GLUCOSE, UR Normal Normal Normal [facility] Comment on above: Order Comment: CLEAN CATCH Performed By: #### L 400.7600, L400.0001 #### [facility] [address] [place], [address] KETONE UR Negative Normal Negative [facility] Comment on above: Order Comment: CLEAN CATCH Performed By: #### L 400.7600, L400.0001 #### [facility] [address] [place], [address] LEUK ESTERASE Negative Normal Negative [facility] Comment on above: Order Comment: CLEAN CATCH Performed By: #### L 400.7600, L400.0001 #### [facility] [address] [place], [address] Nitrite Ql (U) Negative Normal Negative [facility] Comment on above: Order Comment: CLEAN CATCH Performed By: #### L 400.7600, L400.0001 #### [facility] [address] [place], [address] OCCULT BLOOD-UR 50 /ul Abnormal Negative [facility] Comment on above: Order Comment: CLEAN CATCH Performed By: #### L 400.7600, L400.0001 #### [facility] [address] [place], [address] pH UR 5.0 Normal 5.0 - 8.0 [facility] Comment on above: Order Comment: CLEAN CATCH Performed By: #### L 400.7600, L400.0001 #### [facility] [address] [place], [address] PROT DIPSTX 30 mg/dl Abnormal Negative [facility] Comment on above: Order Comment: CLEAN CATCH Performed By: #### L 400.7600, L400.0001 #### [facility] [address] [place], [address] SP.GR. DIPSTX 1.025 Normal 1.002-1.030 [facility] Comment on above: Order Comment: CLEAN CATCH Performed By: #### L 400.7600, L400.0001 #### [facility] [address] [place], [address] UROBILI Normal Normal Normal [facility] Comment on above: Order Comment: CLEAN CATCH Performed By: #### L 400.7600, L400.0001 #### [facility] [address] [place], [address] RBC 0 SEEN Normal 0-5 [facility] Comment on above: Order Comment: CLEAN CATCH Performed By: #### L 400.7600, L400.0001 #### [facility] [address] [place], [address] Urine clarityOrdered By: Iesha Benavides on 03-21-2025 Clarity (U) Sl. Cloudy Clear [facility] Urine color determinationOrd ered By: Stephany Benavides on 03-21-2025 Color (U) Yellow Yellow [facility] Urine cultureOrdered By: Iesha Benavides on 03-21-2025 Bacteria identified Cx Nom (U) Positive Abnormal [facility] Urine glucose detectionOrder ed By: Stephany Benavides on 03-21-2025 Glucose Ql (U) Normal mg/dl Normal [facility] Urine leukocyte esterase det ection by dipstickOrdered By: Stephany Benavides on 03-21-2025 Leukocyte esterase Test strip Ql (U) Negative Negative [facility] Urine pHOrdered By: Stephany gonzalez on 03-21-2025 pH (U) 5.0 [pH] 5.0 - 8.0 [facility] Urine testOrdered By: Stephany Benavides on 03-21-2025 HCG ( test) Ql (U) Negative [facility] Comment on above: Very dilute urine sp ecimens, as indicated by a low specificgravity, may not contain escrow representative levels of hCG. If is still suspected, a first morning urinespecimen should be collected 48 hours later and tested. Urine sediment bacteria coun t by microscopy (number/high power field)Ordered By: Stephany Benavides on 03-21-2025 Bacteria LM.HPF (Urine sed) [#/Area] 3 /[HPF] None Seen [facility] Urine specific gravity measu rementOrdered By: Stephany Benavides on 03-21-2025 Specific gravity (U) [Rel density] 1.025 1.002-1.030 [facility] Urine urobilinogen measureme ntOrdered By: Stephany Benavides on 03-21-2025 Urobilinogen Ql (U) Normal mg/dl Normal [facility] White blood cell (WBC) count Ordered By: Stephany Benavides on 03-21-2025 WBC (Bld) [#/Vol] 9.6 10*3/uL 4.4-11.0 [facility] Comment on above: Performed By: #### L 500.2500, L100.0100 ####[facility] [address] [place], [address] White blood cell countOrdere d By: Stephany Benavides on 03-21-2025 White blood cell count 0-5 SEEN /hpf 0-5 [facility] 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 03-18-2025 R[employer] Fire Worker Office Visit Report [facility] [address], [address] [place] [address] OFFICE VISIT Date of Service: 03/18/25 MR#: [id number] Acct: [id number] Name: LILLIAN DRAKE Rep #: [id number] : 1985 Provider: Dr. 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 Normal [facility] Bilirubin Test strip Ql (U)O rdered By: Al Hassan on 03-06-2025 Bilirubin Ql (U) 1 mg/dL High Negative [facility] Comment on above: COLOR OF URINE MAY A FFECT DIPSTICK RESULTS. Emergency Department Summary on 03-06-2025 Emergency Department Summary [facility] Medical Records Department [address] [place] [id number] Emergency Department Summary 03/06/25 MR#: [id number] Acct: [id number] Name: LILLIAN DRAKE Rep #: [id number] : 1985 39 From: Al Hassan MD [...] so she has another appointment with her repair manager in 2 weeks but was in more [...] for possible hysterectomy coming up with same repair manager. 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 Normal [facility] Ketones Test strip Ql (U)Ord ered By: Al Hassan on 03-06-2025 Ketones Ql (U) 5 mg/dl High Negative [facility] Microscopic analysis of urin e for red blood cells (RBC)Ordered By: Al Hassan on 03-06-2025 Microscopic analysis of urine for red blood cells (RBC) 0 SEEN /hpf 0-5 [facility] Mucus LM Ql (Urine sed)Order ed By: Al Hassan on 03-06-2025 Mucus Ql (Urine sed) 1+ /hpf [facility] Nitrite Test strip Ql (U)Ord ered By: Al Hassan on 03-06-2025 Nitrite Ql (U) Negative Negative [facility] ,Urineon 03-06-2025 Beta HCG ( test) Ql (U) Negative Normal [facility] Comment on above: Result Comment: Very dilute urine specimens, as indicated by a low specific gravity, may not contain escrow representative levels of hCG. If is still suspected, a first morning urine specimen should be collected 48 hours later and tested. Performed By: #### L 400.0001, L400.7600 ####[facility] [address] [facility] [place], [place], [id number] Protein Test strip Ql (U)Ord ered By: Al Hassan on 03-06-2025 Protein Ql (U) 30 mg/dl High Negative [facility] Squamous epithelial cells de tection in urine sediment by light microscopyOrdered By: Al Hassan on 03-06-2025 Epithelial cells.squamous LM Ql (Urine sed) 0-5 SEEN /hpf 5-10 [facility] Transvaginal Non-on 03-06-2025 Transvaginal Non- [facility] Imaging Services [address] [place] [address] Transvaginal Non- MR#: [id number] Acct: [id number] Name: LILLIAN DRAKE Rep #: [id number] : 1985 F 39 From: Dilshad Joya PCP: Dr. Jennifer Werner MD Status: [facility] ER Study: Transvaginal Non- Date of Exam: Exam# [id number] Ordering Dr: Al Hassan MD PROCEDURE: TRANSVAGINAL [...] 3. Satisfactory intrauterine device positioning Reading Location: [address] CC: Dr. Al Hassan MD; Dr. Jennifer Werner MD Transcribing Machine Mechanic: Signed Normal [facility] Urinalysis, Completeon 03-06 BACTERIA 1+ /hpf Normal None Seen [facility] Comment on above: Order Comment: EDE CTOR TO SPECIFY Performed By: #### L 400.0001, L400.7600 ####[facility] [address] [place], [address] EPI,SQUAMOUS 0-5 SEEN Normal 5-10 [facility] Comment on above: Order Comment: EDE CTOR TO SPECIFY Performed By: #### L 400.0001, L400.7600 ####[facility] [address] [place], [address] Mucus Ql (Urine sed) 1+ /hpf Normal [facility] Comment on above: Order Comment: [facility] CTOR TO SPECIFY Performed By: #### L 400.0001, L400.7600 ####[facility] [address] [place], [address] WBC 0-5 SEEN Normal 0-5 [facility] Comment on above: Order Comment: [facility] CTOR TO SPECIFY Performed By: #### L 400.0001, L400.7600 ####[facility] [address] [place], [address] RBC 0 SEEN Normal 0-5 [facility] Comment on above: Order Comment: COLLE CTOR TO SPECIFY Performed By: #### L 400.0001, L400.7600 ####[facility] [address] [place], [address] Urine clarityOrdered By: Jose Alfredo Hassan on 03-06-2025 Clarity (U) Clear Clear [facility] Urine color determinationOrd ered By: Al Hassan on 03-06-2025 Color (U) Yellow Yellow [facility] Urine glucose detectionOrder ed By: Al Hassan on 03-06-2025 Glucose Ql (U) Normal mg/dl Normal [facility] Urine leukocyte esterase det ection by dipstickOrdered By: Al Hassan on 03-06-2025 Leukocyte esterase Test strip Ql (U) 25 /ul High Negative [facility] Urine pHOrdered By: Al Hassan on 03-06-2025 pH (U) 6.0 [pH] 5.0 - 8.0 [facility] Urine testOrdered By: Al Hassan on 03-06-2025 HCG ( test) Ql (U) Negative [facility] Comment on above: Very dilute urine sp ecimens, as indicated by a low specificgravity, may not contain escrow representative levels of hCG. If is still suspected, a first morning urinespecimen should be collected 48 hours later and tested. Urine sediment bacteria coun t by microscopy (number/high power field)Ordered By: Al Hassan on 03-06-2025 Bacteria LM.HPF (Urine sed) [#/Area] 1 /[HPF] None Seen [facility] Urine specific gravity measu rementOrdered By: Al Hassan on 03-06-2025 Specific gravity (U) [Rel density] 1.020 1.002-1.030 [facility] Urine urobilinogen measureme ntOrdered By: Al Hassan on 03-06-2025 Urobilinogen Ql (U) Normal mg/dl Normal [facility] White blood cell countOrdere d By: Al Hassan on 03-06-2025 White blood cell count 0-5 SEEN /hpf 0-5 [facility] Laboratory - Chemistry and C hemistry - challengeOrdered By: Azeb Morris on 02-27-2025 Bilirubin Ql (U) Negative [facility] Glucose Ql (U) Negative [facility] Ketones Ql (U) Negative [facility] pH (U) 6.5 [pH] [facility] Specific gravity (U) [Rel density] 1.015 [facility] Urobilinogen (U) [Mass/Vol] Negative [facility] Laboratory - Hematology and Cell countsOrdered By: Azeb Morris on 02-27-2025 Hemoglobin Ql (U) Moderate [facility] Laboratory - Specimen inform ationOrdered By: Azeb Morris on 02-27-2025 Clarity (U) Clear [facility] Color (U) Yellow [facility] Laboratory - UrinalysisOrder ed By: Azeb Morris on 02-27-2025 Nitrite Ql (U) Negative [facility] Protein Ql (U) Negative [facility] No Panel InformationOrdered By: Azeb Morris on 02-27-2025 Urine Leukocytes Negatve [facility] Urine Non-Hemolyzed Blood [facility] Rocket Test 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 02-27-2025 Rocket Test Fire Worker Office Visit Report [facility] [address], [address] [place] [address] OFFICE VISIT Date of Service: 02/27/25 MR#: [id number] Acct: [id number] Name: DRAKELILLIAN ROSY Rep #: [id number] : 1985 Provider: EMERITA Thomas Age/Sex: 39/F Location: [facility] Status: Signed Intake Vital Signs 02/18/25 08:29 02/27/25 10:31 Height 5 ft 3 in 5 ft 3 in Weight: 165 lb BMI 29.2 BP 102/66 Intake Visit Reasons: Pelvic pain Car Varnisher Required: No Is patient in pain?: No [...] No : No Control Method: liletta- 2024 [facility] Medical History Dyspareunia depression History of [...] occupational status: employed 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 Delivery Date: 02/14/16 Last Updated by: Alison Noel No issues during or delivery. Delivery Date: 06/24/22 Last Updated by: Charis Desai see problem list for complications, and ptl pprom 33 [facility]. Delivery Date: 06/24/22 Last Updated by: Charis Desai See problem list for complications, and ptl pprom 33 [facility]. ROS Const Constitutional: Reports headache(s); Denies fatigue, fever(s), increased appetite, poor appetite, weight gain or weight loss Cardio Card: Denies chest pain Resp Resp: Denies cough or dyspnea GI GI: Reports as p (more content not included)... [facility] 02-18-2025 [facility] Telephone ([id number]) LILLIAN DRAKE ([id number]) 1985 F Date Time Provider Department 02/18/25 JENNIFER WERNER [id number] During your visit today, we recorded the [...] [facility] TRIAGE POOL [[id number]] Patient: Lillian Drake Date of : 1985 [...] appt this week. Was Patient Referred to [facility]/Seek Emergency Treatment (Y/N): N/A Did Patient Agree (Y/N): N/A Was An Attempt Made To Transfer The Patient To The Office (Y/N): No Were You Able To Reach Someone At The Office (Y/N): N/A If Yes - Patient Was Transferred To (Caregivers Name): N/A If No - Which [facility] Leadership Unit Aid Did You Speak With Regarding This Patient: N/A Was an appointment scheduled (Y/N): no Reason patient was requesting visit (RFV/signs and symptoms/diagnosis) : Pain meds Person calling if other than patient: N/A Return call to if other than patient: N/A Best contact number: [phone] Thank you, Kristen Bridges February 18, 2025 3:35 PM Madalyn Lomas LPN 02/18/2025 4:04 PM Signed Returned patients call. She was seen in [place] [facility] this morning and does not feel [...] Patient requ (more content not included)... Normal [facility] Emergency Department Summary on 02-18-2025 Emergency Department Summary [facility] Medical Records Department [address] [place] [address] Emergency Department Summary 02/18/25 MR#: [id number] Acct: [id number] Name: LILLIAN DRAKE Rep #: [id number] : 1985 39 From: Kevin Heart DO [...] carrying groceries in and bent over to chart picker her child and noted that she felt a pop. She states that progressively over the last few days the pain in her lower back had been progressing she states that it shoots down both of her legs. She states that she has been urinating normally for self and having normal bowel movements. Patient states that she has been taking naproxen [id number]-til-rvhqn as well as rotating Tylenol and there without much relief. 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 Normal [facility] L/S Spine Min 4 Viewson 05-5 L/S Spine Min 4 Views [facility] Imaging Services [address] [place], [place] [address] L/S Spine Min 4 Views MR#: [id number] Acct: [id number] Name: LILLIAN DRAKE Rep #: [id number] : 1985 F 39 From: Vazquez Redd MD PCP: Dr. Jennifer Werner MD Status: REG ER Study: L/S Spine Min 4 Views Date of Exam: 02/18/25 Exam# [id number] Ordering Dr: Kevin Heart DO EXAM: XR [...] Views IMPRESSION: No acute fracture. Reading Location: [facility] CC: Dr. Jennifer Werner MD; Dr. Kevin Heart DO Transcribing Machine Mechanic: Signed Normal [facility] Pelvic w/ Transvaginalon Pelvic w/ Transvaginal [facility] Imaging Services [address] [place] [address] Pelvic w/ Transvaginal MR#: [id number] Acct: [id number] Name: LILLIAN DRAKE Rep #: [id number] : 1985 F 39 From: Junior William MD PCP: [facility] OF [facility] Status: REG CLI Study: Pelvic w/ Transvaginal Date of Exam: 02/08/25 Exam# [id number] Ordering Dr: Maria Regan PROCEDURE: PELVIC W/ [...] appears within limits as above. Reading Location: [id number] CC: Dr. Maria Regan MD Transcribing Machine Mechanic: Signed Normal [facility] Rocket Test 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 01-07-2025 Rocket Test Fire Worker Office Visit Report [facility] [address], [address] [place] [address] OFFICE VISIT Date of Service: 01/07/25 MR#: [id number] Acct: [id number] Name: LILLIAN DRAKE Rep #: [id number] : 1985 Provider: Dr. 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 Normal [facility] 25(OH)D3 [facility] 2024 25-hydroxyvitamin D3 [Mass/Vol] 49.1 ng/mL Normal 31.0-80.0 [facility] Comment on above: Order Comment: Speci men Type: BLOOD SPECIMENOrdering Facility: [facility] Address: [address] [place] [address] Performed By: #### 1 989-3 ####[facility] LABCLIA [id number] [place] [address] [place] CBC panel Auto (Bld)on 12-31 Erythrocyte distribution width (RBC) [Ratio] 13.6 % Normal 11.5-15.0 [facility] Comment on above: Order Comment: Speci men Type: BLOOD SPECIMENOrdering Facility: [facility] Address: [address] [place] [address] Performed By: #### 5 8410-2 ####[facility] LABCLIA [id number] [place] [address] [place] Hematocrit (Bld) [Volume fraction] 39.3 % Normal 36.0-46.0 [facility] Comment on above: Order Comment: Speci men Type: BLOOD SPECIMENOrdering Facility: [facility] Address: [address] [place] [address] Performed By: #### 5 8410-2 ####[facility] LABIA [id number] [place] [address] [place] Hemoglobin (Bld) [Mass/Vol] 12.9 g/dL Normal 11.5-15.5 [facility] Comment on above: Order Comment: Speci men Type: BLOOD SPECIMENOrdering Facility: [facility] Address: [address] [place] [address] Performed By: #### 5 8410-2 ####[facility] LABIA [id number] [place] [address] [place] MCH (RBC) [Entitic mass] 29.3 pg Normal 26.0-34.0 [facility] Comment on above: Order Comment: Speci men Type: BLOOD SPECIMENOrdering Facility: [facility] Address: [address] [place] [address] Performed By: #### 5 8410-2 ####[facility] LABIA [id number] [place] [address] [place] MCHC (RBC) [Mass/Vol] 32.8 g/dL Normal 30.5-36.0 [facility] Comment on above: Order Comment: Speci men Type: BLOOD SPECIMENOrdering Facility: [facility] Address: [address] [place] [address] Performed By: #### 5 8410-2 ####[facility] LABCLIA [id number] [place] [address] [place] MCV (RBC) [Entitic vol] 89.1 fL Normal 80.0-100.0 [facility] Comment on above: Order Comment: Speci men Type: BLOOD SPECIMENOrdering Facility: [facility] Address: [address] [place] [address] Performed By: #### 5 8410-2 ####[facility] LABCLIA [id number] [place] [address] [place] Nucleated RBC (Bld) [#/Vol] 10*3/uL Normal <0.01 [facility] Comment on above: Order Comment: Speci men Type: BLOOD SPECIMENOrdering Facility: [facility] Address: [address] [place] [address] Performed By: #### 5 8410-2 ####[facility] LABIA [id number] [place] [address] [place] Platelet mean volume (Bld) [Entitic vol] 10.8 fL Normal 9.0-12.7 [facility] Comment on above: Order Comment: Speci men Type: BLOOD SPECIMENOrdering Facility: [facility] Address: [address] [place] [address] Performed By: #### 5 8410-2 ####[facility] LABCLIA [id number] [place] [id number] [place] Platelets (Bld) [#/Vol] 219 10*3/uL Normal 150-400 [facility] Comment on above: Order Comment: Speci men Type: BLOOD SPECIMENOrdering Facility: [facility] Address: [address] [place] [address] Performed By: #### 5 8410-2 ####[facility] LABCLIA [id number] [address] [address] [place] RBC (Bld) [#/Vol] 4.41 10*6/uL Normal 3.90-5.20 [facility] Comment on above: Order Comment: Speci men Type: BLOOD SPECIMENOrdering Facility: [facility] Address: [address] [place] [address] Performed By: #### 5 8410-2 ####[facility] LABCLIA [id number] [place] [address] [place] WBC (Bld) [#/Vol] 7.84 10*3/uL Normal 3.70-11.00 [facility] Comment on above: Order Comment: Speci men Type: BLOOD SPECIMENOrdering Facility: [facility] Address: [address] [place] [address] Performed By: #### 5 8410-2 ####[facility] LABIA [id number] [place] [address] [place] Comprehensive metabolic 2000 panelon 12-31-2024 Albumin [Mass/Vol] 4.1 g/dL Normal 3.9-4.9 [facility] Comment on above: Order Comment: Speci men Type: BLOOD SPECIMENOrdering Facility: [facility] Address: [address] [place] [address] Performed By: #### 3 016-3, 32673-4, 93617-5 ####[facility] LABIA [id number] [place] [address] [place] ALP [Catalytic activity/Vol] 62 U/L Normal 34-123 [facility] Comment on above: Order Comment: Speci men Type: BLOOD SPECIMENOrdering Facility: [facility] Address: [address] [place] [address] Performed By: #### 3 016-3, 53644-7, 25009-2 ####[facility] LABCLIA [id number] [id number], [place] [address] [place] ALT [Catalytic activity/Vol] 16 U/L Normal 7-38 [facility] Comment on above: Order Comment: Speci men Type: BLOOD SPECIMENOrdering Facility: [facility] Address: [address] [place] [address] Performed By: #### 3 016-3, 43294-2, 68433-5 ####[facility] LABCLIA [id number] [facility] [address] [address] [place] Anion gap [Moles/Vol] 9 mmol/L Normal 8-15 [facility] Comment on above: Order Comment: Speci men Type: BLOOD SPECIMENOrdering Facility: [facility] Address: [address] [place] [address] Performed By: #### 3 016-3, 31028-2, 10548-1 ####[facility] LABCLIA [id number] [place] [address] [place] AST [Catalytic activity/Vol] 19 U/L Normal 13-35 [facility] Comment on above: Order Comment: Speci men Type: BLOOD SPECIMENOrdering Facility: [facility] Address: [address] [place] [address] Performed By: #### 3 016-3, 98114-1, ####[facility] LABCLIA [id number] [facility] [address] [address] [place] Bilirubin [Mass/Vol] 0.3 mg/dL Normal 0.2-1.3 [facility] Comment on above: Order Comment: Speci men Type: BLOOD SPECIMENOrdering Facility: [facility] Address: [address] [place], [place] [address] Performed By: #### 3 016-3, 58509-1, 92826-4 ####[facility] LABCLIA [id number] [facility] [address] [address] [place] Calcium [Mass/Vol] 9.5 mg/dL Normal 8.5-10.2 [facility] Comment on above: Order Comment: Speci men Type: BLOOD SPECIMENOrdering Facility: [facility] Address: [address] [place] [address] Performed By: #### 3 016-3, 57372-6, 94259-4 ####[facility] LABCLIA [id number] [place] [address] [place] Chloride [Moles/Vol] 106 mmol/L Normal 98-107 [facility] Comment on above: Order Comment: Speci men Type: BLOOD SPECIMENOrdering Facility: [facility] Address: [address] [place] [address] Performed By: #### 3 016-3, 87085-9, 20051-0 ####[facility] LABCLIA [id number] [place] [address] [place] CO2 [Moles/Vol] 21 mmol/L Low 22-30 [facility] Comment on above: Order Comment: Speci men Type: BLOOD SPECIMENOrdering Facility: [facility] Address: [address] [place] [address] Performed By: #### 3 016-3, , ####[facility] LABCLIA [id number] [place] [address] [place] Creatinine [Mass/Vol] 0.61 mg/dL Normal 0.58-0.96 [facility] Comment on above: Order Comment: Speci men Type: BLOOD SPECIMENOrdering Facility: [facility] Address: [address] [place] [address] Performed By: #### 3 016-3, 38228-3, 05671-1 ####[facility] LABCLIA [id number] [place] [address] [place] Creatinine and Glomerular filtration rate.predicted panel (S/P/Bld) 118 mL/min/1.73m??? Normal >=60 [facility] Comment on above: Order Comment: Speci men Type: BLOOD SPECIMENOrdering Facility: [facility] Address: [address] [place] [address] Result Comment: Callie mated Glomerular Filtration Rate [...] actual GFR. Performed By: #### 3 016-3, 96343-7, 45141-1 ####[facility] [id number] [place] [address] [place] Glucose [Mass/Vol] 85 mg/dL Normal 74-99 [facility] Comment on above: Order Comment: Shellie bell Type: BLOOD SPECIMENOrdering Facility: [facility] Address: [address] [place] [address] Result Comment: The [place] Diabetes Association (ADA) provides guidance for cutoff [...] Standards of Medical Care in Diabetes 2016, [place] [employer] Association. Diabetes Care. 2016.39(Suppl 1). Performed By: #### 3 016-3, 94285-2, ####[facility] [id number] [place] [address] [place] Potassium [Moles/Vol] 4.1 mmol/L Normal 3.7-5.1 [facility] Comment on above: Order Comment: Shellie bell Type: BLOOD SPECIMENOrdering Facility: [facility] Address: [address] [place] [place] [id number] Performed By: #### 3 016-3, 45023-3, 80009-2 ####[facility] LABIA [id number] [address] [address] [place] Protein [Mass/Vol] 6.9 g/dL Normal 6.3-8.0 [facility] Comment on above: Order Comment: Speci men Type: BLOOD SPECIMENOrdering Facility: [facility] Address: [address] [place] [address] Performed By: #### 3 016-3, 92339-0, 08445-6 ####[facility] LABIA [id number] [place] [address] [place] Sodium [Moles/Vol] 136 mmol/L Normal 136-144 [facility] Comment on above: Order Comment: Speci men Type: BLOOD SPECIMENOrdering Facility: [facility] Address: [address] [place] [address] Performed By: #### 3 016-3, 82925-8, 83147-7 ####[facility] LABIA [id number] [place] [address] [place] Urea nitrogen [Mass/Vol] 13 mg/dL Normal 7-21 [facility] Comment on above: Order Comment: Speci men Type: BLOOD SPECIMENOrdering Facility: [facility] Address: [address] [place] [address] Performed By: #### 3 016-3, 28545-0, 83005-3 ####[facility] [id number] [address] [address] [place] HbA1c (Bld)on 12-31-2024 Average glucose Estimated from glycated hemoglobin (Bld) [Mass/Vol] 88 mg/dL Normal [facility] Comment on above: Order Comment: Speci men Type: BLOOD SPECIMENOrdering Facility: [facility] Address: [address] [place] [address] Result Comment: eAG: (Estimated average glucose) is a calculated value from HgbA1c and is escrow representative of the average blood glucose level in the last 2-3 month period. Performed By: #### 5 5454-3 ####[facility] [facility] LABIA [id number] [place] [address] [place] HbA1c (Bld) [Mass fraction] 4.7 % Normal 4.3-5.6 [facility] Comment on above: Order Comment: Shellie bell Type: BLOOD SPECIMENOrdering Facility: [facility] Address: [address] [place] [address] Result Comment: Amer [place] Diabetes Association guidelines indicate that patients with HgbA1c in the range 5.7-6.4% are at increased risk for development of diabetes, and intervention by lifestyle modification may be beneficial. HgbA1c greater or equal to 6.5% is considered diagnostic of diabetes. Performed By: #### 5 5454-3 ####[facility] LABIA [id number] [place] [address] [place] Lipid 1996 panelon 5 Cholesterol [Mass/Vol] 204 mg/dL High <200 [facility] Comment on above: Order Comment: Shellie bell Type: BLOOD SPECIMENOrdering Facility: [facility] Address: [address] [place] [address] Result Comment: <200 mg/dL, Desirable 200-239 mg/dL, Borderline high >239 mg/dL, High Performed By: #### 3 016-3, 13447-5, 05571-3 ####[facility] LABIA [id number] [address] [place] Cholesterol in HDL [Mass/Vol] 49 mg/dL Normal >39 [facility] Comment on above: Order Comment: Shellie bell Type: BLOOD SPECIMENOrdering Facility: [facility] Address: [address] [place] [address] Result Comment: 40-5 9 mg/dL, Acceptable >59 mg/dL, High: Negative risk factor for coronary heart disease <40 mg/dL, Low: Positive risk factor for coronary heart disease Performed By: #### 3 016-3, 32756-9, 61218-9 ####[facility] LABCLIA [id number] [place] [id number] [place] Cholesterol in LDL [Mass/Vol] 106 mg/dL High <100 [facility] Comment on above: Order Comment: Speci men Type: BLOOD SPECIMENOrdering Facility: [facility] Address: [address] [place] [address] Result Comment: <100 mg/dL, Optimal 100-129 mg/dL, Near optimal/above optimal 130-159 mg/dL, Borderline high 160-189 mg/dL, High >189 mg/dL, Very high Secondary prevention optimal LDL Cholesterol levels are recommended to be < 70 mg/dL Performed By: #### 3 016-3, 85460-5, 89093-4 ####[facility] LABIA [id number] [address] STATES OF [facility] Cholesterol in LDL/Cholesterol in HDL [Mass ratio] 2.16 {ratio} Normal <2.54 [facility] Comment on above: Order Comment: Speci men Type: BLOOD SPECIMENOrdering Facility: [facility] Address: [address] [place] [address] Result Comment: Refe rence: 1. National Cholesterol Education Program ATP III Guideline At-A-Glance Quick Desk Reference: National Heart, Lung, and Blood Riley. National Institutes of Health. 2001: NIH Publication No. 01-3305. 2. An International Atherosclerosis Society position paper: global recommendations for the management of dyslipidemia: executive summary, Atherosclerosis. 2014: 232(2):410-413. Performed By: #### 3 016-3, 35154-1, 29471-6 ####[facility] LABIA [id number] [address] [place] Cholesterol in VLDL [Mass/Vol] 49 mg/dL High <30 [facility] Comment on above: Order Comment: Speci men Type: BLOOD SPECIMENOrdering Facility: [facility] Address: [address] [place] [address] Performed By: #### 3 016-3, 29258-3, 18256-4 ####[facility] LABCLIA [id number] [address] [place] [address] [place] Cholesterol non HDL [Mass/Vol] 155 mg/dL High <130 [facility] Comment on above: Order Comment: Speci men Type: BLOOD SPECIMENOrdering Facility: [facility] Address: [address] [place] [address] Result Comment: <130 mg/dL, Optimal 130-159 mg/dL, Near optimal/above optimal 160-189 mg/dL, Borderline high 190-219 mg/dL, High >219 mg/dL, Very high Secondary prevention optimal non HDL Cholesterol levels are recommended to be <100 mg/dL Performed By: #### 3 016-3, , 54077-4 ####[facility] LABCLIA [id number] [place] [address] [place] Cholesterol.total/Chol esterol in HDL [Mass ratio] 4.16 {ratio} Normal <5.10 [facility] Comment on above: Order Comment: Speci men Type: BLOOD SPECIMENOrdering Facility: [facility] Address: [address] [place] [address] Performed By: #### 3 016-3, , ####[facility] LABCLIA [id number] [place] [id number] [place] FASTING TIME 12 hrs Normal [facility] Comment on above: Order Comment: Speci men Type: BLOOD SPECIMENOrdering Facility: [facility] Address: [address] [place] [address] Performed By: #### 3 016-3, , ####[facility] LABCLIA [id number] [address] [place] [address] [place] Triglyceride [Mass/Vol] 245 mg/dL High <150 [facility] Comment on above: Order Comment: Speci men Type: BLOOD SPECIMENOrdering Facility: [facility] Address: [address] [place] [address] Result Comment: <150 mg/dL, Normal 150-199 mg/dL, Borderline high 200-499 mg/dL, High >499 mg/dL, Very high Performed By: #### 3 016-3, 60878-3, 18661-3 ####[facility] LABCLIA [id number] [place] [id number] [place] TSH SerPl-aCncon 12-31-2024 TSH Qn 0.901 m[IU]/L Normal 0.270-4.200 [facility] Comment on above: Order Comment: Speci men Type: BLOOD SPECIMENOrdering Facility: [facility] Address: [address] [place] [address] Result Comment: If t he patient is , TSH reference range varies by gestational period: First Trimester (weeks 9-12): 0.180-2.990 mIU/L Second Trimester: 0.110-3.980 mIU/L Third Trimester: 0.480-4.710 mIU/L Chau Reynolds et al. A Practical Approach for the Verifications and Determination of Site- and Trimester-Specific Reference Intervals for Thyroid Function tests in . Thyroid, 2019:29:3:412-420. Andrews Mishra, et al. 2017 Guidelines of the [place] Thyroid Association for the Diagnosis and Management of Thyroid Disease during and the . Thyroid, 2017:27:3:315-389. Performed By: #### 3 016-3, 53530-5, 01521-9 ####[facility] LABCLIA [id number] [address] [address] [place] CNCOon 12-25-2024 CNCO Letter Text Normal [facility] R[employer] 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 12-21-2024 Rocket Test Fire Worker Office Visit Report [facility]'s [address], [address] [place] [address] OFFICE VISIT Date of Service: 12/21/24 MR#: [id number] Acct: [id number] Name: LILLIAN DRAKE Rep #: [id number] : 1985 Provider: Dr. 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 Delivery Date: 02/14/16 Last Updated by: Alison Noel No issues during or delivery. Delivery Date: 06/24/22 Last Updated by: Charis Desai see problem list for complications, and [facility] Date: 06/24/22 Last Updated by: [...] incontinence, urinary (more content not included)... Normal [facility] Abdomen/Pelvis W IV Cont ONL Yon 11-22-2024 Abdomen/Pelvis W IV Cont ONLY [facility] Imaging Services [address] [place], [place] [address] Abdomen/Pelvis W IV Cont ONLY MR#: [id number] Acct: [id number] Name: LILLIAN DRAKE Rep #: [id number] : 1985 F 39 From: Burton Cabrera MD PCP: Dr. Maria Regan MD Status: REG ER Study: Abdomen/Pelvis W IV Cont ONLY Date of Exam: Exam# [id number] Ordering Dr: Lupillo Asif MD PROCEDURE: ABDOMEN/PELVIS [...] Reproductive Organs: Heterogeneous uterus. Prominent bilateral ovaries ioyhg-fnyzbnk-qtzs-left with multiple cystic foci. The right ovary [...] be due to fibroids. Bilateral prominent ovaries, eophc-wwislmj-boxi-left . Consider pelvic ultrasound for further evaluation. 2. Hepatic steatosis. One or more dose reduction techniques were used (e.g., Automated exposure control, adjustment of the mA and/or kV according to patient size, use of iterative reconstruction technique). Reading Location: [facility] CC: Dr. Lupillo Asif MD; Dr. Maria Regan MD Transcribing Machine Mechanic: Signed Normal [facility] Absolute lymphocyte countOrd ered By: Lupillo Asif on 11-22-2024 Lymphocytes Auto (Unsp spec) [#/Vol] 3.24 10*3/uL 0.83-4.51 [facility] Absolute neutrophil countOrd ered By: Lupillo Asif on 11-22-2024 Neutrophils (Bld) [#/Vol] 5.2 10*3/uL 2.0-7.7 [facility] Albumin to globulin ratioOrd ered By: Lupillo Asif on 11-22-2024 Albumin/Globulin [Mass ratio] 0.9 {ratio} 0.9-2.4 [facility] Automated lymphocyte count a s percentage of total leukocytesOrdered By: Lupillo Asif on 11-22-2024 Lymphocytes/100 WBC Auto (Unsp spec) 34.6 % 19-41 [facility] Basophil percentageOrdered B y: Lupillo Asif on 11-22-2024 Basophils/100 WBC (Bld) 0.6 % 0-1 [facility] Bilirubin Test strip Ql (U)O rdered By: Lupillo Asif on 11-22-2024 Bilirubin Ql (U) Negative Negative [facility] Bilirubin, totalOrdered By: Lupillo Asif on 11-22-2024 Bilirubin [Mass/Vol] 0.30 mg/dL 0.20-1.00 [facility] Comment on above: For patients on eltr ombopag therapy, use of Dimension [place] TBIL is not recommended. Blood urea nitrogen (BUN)/cr eatinine ratioOrdered By: Lupillo Asif on 11-22-2024 Urea nitrogen/Creatinine [Mass ratio] 22.5 mg/mg High 07-22 [facility] CBC W/Diff, Automatedon 11-04 Absolute Lymph 3.24 X10 3/uL Normal 0.83-4.51 [facility] Comment on above: Performed By: #### M 100.3200, M100.2000, L7400.0280, L7000.1800 #### [facility] [address] [place], [address] Absolute Neut 5.2 X10 3/uL Normal 2.0-7.7 [facility] Comment on above: Performed By: #### M 100.3200, M100.1999, L7400.0280, L7000.1800 #### [facility] [address] [place], [address] Basophils/100 WBC (Bld) 0.6 % Normal 0-1 [facility] Comment on above: Performed By: #### M 100.3200, M1, L7400.0280, L7000.1800 #### [facility] [address] [place], [address] Eosinophils/100 WBC (Bld) 3.2 % Normal 0-5 [facility] Comment on above: Performed By: #### M 100.3200, , L7400.0280, L7000.1800 #### [facility] [address] [place], [address] Erythrocyte distribution width (RBC) [Ratio] 13.7 % Normal 11.6-14.6 [facility] Comment on above: Performed By: #### M 100.3200, M1, L7400.0280, L7000.1800 #### [facility] [address] [place], [address] Hematocrit (Bld) [Volume fraction] 41.2 % Normal 37-47 [facility] Comment on above: Performed By: #### M 100.3200, M1, L7400.0280, L7000.1800 #### [facility] [address] [place], [address] Hemoglobin (Bld) [Mass/Vol] 13.7 g/dL Normal 12.0-15.0 [facility] Comment on above: Performed By: #### M 100.3200, , L7400.0280, L7000.1800 #### [facility] [address] [place], [address] IG% 0.300 Normal 0.0-0.9 [facility] Comment on above: Result Comment: IG% - Immature Granulocytes (promyelocytes, myelocytes and metamyelocytes) > 1% indicates that a LEFT SHIFT is Present. Performed By: #### M 100.3200, , L7400.0280, L7000.1800 #### [facility] [address] [place], [address] Lymphocytes/100 WBC (Bld) 34.6 % Normal 19-41 [facility] Comment on above: Performed By: #### M 100.3200, , L7400.0280, L7000.1800 #### [facility] [address] [place], [address] MCH (RBC) [Entitic mass] 29.6 pg Normal 27.0-32.0 [facility] Comment on above: Performed By: #### M 100.3200, , L7400.0280, L7000.1800 #### [facility] [address] [place], [address] MCHC (RBC) [Mass/Vol] 33.3 g/dL Normal 32-36 [facility] Comment on above: Performed By: #### M 100.3200, , L7400.0280, L7000.1800 #### [facility] [address] [place], [address] MCV (RBC) [Entitic vol] 89.0 fL Normal 81-99 [facility] Comment on above: Performed By: #### M 100.3200, M1, L7400.0280, L7000.1800 #### [facility] [address] [place], [address] Monocytes/100 WBC (Bld) 5.2 % Normal 0-10 [facility] Comment on above: Performed By: #### M 100.3200, M100.1999, L7400.0280, L7000.1800 #### [facility] [address] [place], [address] Neutrophils/100 WBC (Bld) 56.1 % Normal 47-70 [facility] Comment on above: Performed By: #### M 100.3200, , L7400.0280, L7000.1800 #### [facility] [address] [place], [address] Nucleated RBC (Bld) [#/Vol] 0 10*3/uL Normal 0-5 [facility] Comment on above: Performed By: #### M 100.3200, , L7400.0280, L7000.1800 #### [facility] [address] [place], [address] Platelet mean volume (Bld) [Entitic vol] 11.3 fL Normal 6.2-12.0 [facility] Comment on above: Performed By: #### M 100.3200, , L7400.0280, L7000.1800 #### [facility] [address] [place], [address] Platelets (Bld) [#/Vol] 307 10*3/uL Normal 150-450 [facility] Comment on above: Performed By: #### M 100.3200, M1, L7400.0280, L7000.1800 #### [facility] [address] [place], [address] RBC (Bld) [#/Vol] 4.63 10*6/uL Normal 4.2-5.4 [facility] Comment on above: Performed By: #### M 100.3200, , L7400.0280, L7000.1800 #### [facility] [address] [place], [address] RDW SD 44.4 fl High 35.1-43.9 [facility] Comment on above: Performed By: #### M 100.3200, , L7400.0280, L7000.1800 #### [facility] [address] [place], [address] WBC (Bld) [#/Vol] 9.4 10*3/uL Normal 4.4-11.0 [facility] Comment on above: Performed By: #### M 100.320, , L7400.0280, L7000.1800 #### [facility] [address] [place], [address] Carbon dioxide measurementOr dered By: Lupillo Asif on 11-22-2024 CO2 [Moles/Vol] 22.0 mmol/L 21.0-32.0 [facility] Chloride measurementOrdered By: Lupillo Asif on 11-22-2024 Chloride [Moles/Vol] 108 mmol/L High 98-107 [facility] Comprehensive Metabolic Prof ilon 11-22-2024 Albumin [Mass/Vol] 3.6 g/dL Normal 3.2-5.0 [facility] Comment on above: Performed By: #### M 100.3200, , L7400.0280, L7000.1800 #### [facility] [address] [place], [address] Albumin/Globulin [Mass ratio] 0.9 {ratio} Normal 0.9-2.4 [facility] Comment on above: Performed By: #### M 100.3200, , L7400.0280, L7000.1800 #### [facility] [address] [place], [address] ALK P 60 U/L Normal 45-117 [facility] Comment on above: Performed By: #### M 100.3200, , L7400.0280, L7000.1800 #### [facility] [address] [place], [address] ALT [Catalytic activity/Vol] 20 U/L Normal 13-56 [facility] Comment on above: Performed By: #### M 100.3200, , L7400.0280, L7000.1800 #### [facility] [address] [place], [address] AST [Catalytic activity/Vol] 42 U/L High 15-37 [facility] Comment on above: Result Comment: Mode rate Hemolysis, Result may be falsely increased. Performed By: #### M 100.3200, , L7400.0280, L7000.1800 #### [facility] [address] [place], [address] Bilirubin [Mass/Vol] 0.30 mg/dL Normal 0.20-1.00 [facility] Comment on above: Result Comment: For patients on eltrombopag therapy, use of Dimension [place] TBIL is not recommended. Performed By: #### M 100.3200, , L7400.0280, L7000.1800 #### [facility] [address] [place], [address] BUN/CRE 22.5 RATIO High 10-20 [facility] Comment on above: Performed By: #### M 100.3200, , L7400.0280, L7000.1800 #### [facility] [address] [place], [address] CA,Total 9.1 mg/dL Normal 8.5-10.1 [facility] Comment on above: Performed By: #### M 100.3200, , L7400.0280, L7000.1800 #### [facility] [address] [place], [address] Chloride [Moles/Vol] 108 mmol/L High 98-107 [facility] Comment on above: Performed By: #### M 100.3200, M1, L7400.0280, L7000.1800 #### [facility] [address] [place], [address] CO2 [Moles/Vol] 22.0 mmol/L Normal 21.0-32.0 [facility] Comment on above: Performed By: #### M 100.3200, , L7400.0280, L7000.1800 #### [facility] [address] [place], [address] Creatinine [Mass/Vol] 0.67 mg/dL Normal 0.55-1.02 [facility] Comment on above: Result Comment: The validity of the calculated GFR GFRAA in patients over 70 years has not been determined. Clinical correlation is essential. Performed By: #### M 100.3200, , L7400.0280, L7000.1800 #### [facility] [address] [place], [address] ECRCL 113.04 ml/min Normal [facility] Comment on above: Performed By: #### M 100.3200, , L7400.0280, L7000.1800 #### [facility] [address] [place], [address] EST GFR - AA 128 mL/min Normal >60 [facility] Comment on above: Result Comment: Afri can [place] GFR Calc Performed By: #### M 100.3200, M1, L7400.0280, L7000.1800 #### [facility] [address] [place], [address] GAP 7 Normal 5-15 [facility] Comment on above: Performed By: #### M 100.3200, .1999, L7400.0280, L7000.1800 #### [facility] [address] [place], [address] GFR/1.73 sq M.predicted among non-blacks MDRD (S/P/Bld) [Vol rate/Area] 106 mL/min/{1.73_m2} Normal >60 [facility] Comment on above: Result Comment: Non- GFR Calc Performed By: #### M 100.3200, .1999, L7400.0280, L7000.1800 #### [facility] [address] [place], [address] Globulin (S) [Mass/Vol] 4.2 g/dL Normal 2.2-4.2 [facility] Comment on above: Performed By: #### M 100.3200, , L7400.0280, L7000.1800 #### [facility] [address] [place], [address] Glucose [Mass/Vol] 82 mg/dL Normal 74-106 [facility] Comment on above: Performed By: #### M 100.3200, , L7400.0280, L7000.1800 #### [facility] [address] [place], [address] Potassium [Moles/Vol] 4.5 mmol/L Normal 3.5-5.1 [facility] Comment on above: Result Comment: Mode rate Hemolysis, Result may be falsely increased. Performed By: #### M 100.3200, M1, L7400.0280, L7000.1800 #### [facility] [address] [place], [address] Sodium [Moles/Vol] 136 mmol/L Normal 136-145 [facility] Comment on above: Performed By: #### M 100.3200, M100.1999, L7400.0280, L7000.1800 #### [facility] [address] [place], [address] T PROT 7.8 g/dL Normal 6.4-8.2 [facility] Comment on above: Performed By: #### M 100.3200, M100.1999, L7400.0280, L7000.1800 #### [facility] [address] [place], [address] Urea nitrogen [Mass/Vol] 15 mg/dL Normal 7-18 [facility] Comment on above: Performed By: #### M 100.3200, M100.1999, L7400.0280, L7000.1800 #### [facility] [address] [place], [address] Emergency Department Summary on 11-22-2024 Emergency Department Summary [facility] Medical Records Department [address] [place] [address] Emergency Department Summary 11/22/24 MR#: [id number] Acct: [id number] Name: LILLIAN DRAKE Rep #: [id number] : 1985 39 From: Lupillo Asif MD [...] it again for a few more months. 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 Normal [facility] Eosinophil percentageOrdered By: Lupillo Asif on 11-22-2024 Eosinophils/100 WBC (Bld) 3.2 % 0-5 [facility] Erythrocyte distribution wid th ratioOrdered By: Lupillo Asif on 11-22-2024 Erythrocyte distribution width (RBC) [Ratio] 13.7 % 11.6-14.6 [facility] Erythrocyte distribution wid th standard deviationOrdered By: Lupillo Asif on 11-22-2024 Erythrocyte distribution width (RBC) [Ratio] 44.4 fl High 35.1-43.9 [facility] Glomerular filtration rate ( GFR) estimationOrdered By: Lupillo Asif on 11-22-2024 GFR/1.73 sq M.predicted among non-blacks MDRD (S/P/Bld) [Vol rate/Area] 106 mL/min/{1.73_m2} >60 [facility] Comment on above: Non- GFR Calc Glucose measurementOrdered B y: Lupillo Asif on 11-22-2024 Glucose [Mass/Vol] 82 mg/dL 74-106 [facility] Hematocrit Auto (Bld) [Volum e fraction]Ordered By: Lupillo Asif on 11-22-2024 Hematocrit (Bld) [Volume fraction] 41.2 % 37-47 [facility] Hemoglobin measurementOrdere d By: Lupillo Asif on 11-22-2024 Hemoglobin (Bld) [Mass/Vol] 13.7 g/dL 12.0-15.0 [facility] Immature granulocytes/100 WB C Auto (Bld)Ordered By: Lupillo Asif on 11-22-2024 Immature granulocytes/100 WBC (Bld) 0.300 % 0.0-0.9 [facility] Comment on above: IG% - Immature Granu locytes (promyelocytes, myelocytes and metamyelocytes) > 1% indicates that a LEFT SHIFT is Present. Ketones Test strip Ql (U)Ord ered By: Lupillo Asif on 11-22-2024 Ketones Ql (U) Negative Negative [facility] - Chemistry and C hemistry - challengeOrdered By: Lupillo Asif on 11-22-2024 AST [Catalytic activity/Vol] 42 U/L High 15-37 [facility] Comment on above: Moderate Hemolysis, Result may be falsely increased. MCV (mean corpuscular volume ) determinationOrdered By: Lupillo Asif on 11-22-2024 MCV (RBC) [Entitic vol] 89.0 fL 81-99 [facility] Mean corpuscular hemoglobin (MCH) determinationOrdered By: Lupillo Asif on 11-22-2024 MCH (RBC) [Entitic mass] 29.6 pg 27.0-32.0 [facility] Mean corpuscular hemoglobin concentration (MCHC) determinationOrdered By: Lupillo Asif on 11-22-2024 MCHC (RBC) [Mass/Vol] 33.3 g/dL 32-36 [facility] Mean platelet volume determi nationOrdered By: Lupillo Asif on 11-22-2024 Platelet mean volume (Bld) [Entitic vol] 11.3 fL 6.2-12.0 [facility] Microscopic analysis of urin e for red blood cells (RBC)Ordered By: Lupillo Asif on 11-22-2024 Microscopic analysis of urine for red blood cells (RBC) 0 SEEN /hpf 0-5 [facility] Monocyte percentageOrdered B y: Lupillo Asif on 11-22-2024 Monocytes/100 WBC (Bld) 5.2 % 0-10 [facility] Mucus LM Ql (Urine sed)Order ed By: Lupillo Asif on 11-22-2024 Mucus Ql (Urine sed) 1+ /hpf [facility] Neutrophil percentageOrdered By: Lupillo Asif on 11-22-2024 Neutrophils/100 WBC (Bld) 56.1 % 47-70 [facility] Nitrite Test strip Ql (U)Ord ered By: Lupillo Asif on 11-22-2024 Nitrite Ql (U) Negative Negative [facility] Nucleated red blood cell per centageOrdered By: Lupillo Asif on 11-22-2024 Nucleated RBC/100 WBC (Bld) [Ratio] 0 % 0-5 [facility] Platelet countOrdered By: Keenan Asif on 11-22-2024 Platelets (Bld) [#/Vol] 307 10*3/uL 150-450 [facility] Potassium measurementOrdered By: Lupillo Asif on 11-22-2024 Potassium [Moles/Vol] 4.5 mmol/L 3.5-5.1 [facility] Comment on above: Moderate Hemolysis, Result may be falsely increased. ,Serum,hCG Quali.on 11-22-2024 HCG, SERUM QUAL Negative Normal [facility] Comment on above: Performed By: #### M 100.3200, M100.2000, L7400.0280, L7000.1800 #### [facility] [address] [place], [address] Protein Test strip Ql (U)Ord ered By: Lupillo Asif on 11-22-2024 Protein Ql (U) 15 mg/dl High Negative [facility] RBC Auto (Bld) [#/Vol]Ordere d By: Lupillo Asif on 11-22-2024 RBC (Bld) [#/Vol] 4.63 10*6/uL 4.2-5.4 [facility] Serum anion gap measurementO rdered By: Lupillo Asif on 11-22-2024 Anion gap [Moles/Vol] 7 mmol/L 5-15 [facility] Serum beta-hCG test, qualita tiveOrdered By: Lupillo Asif on 11-22-2024 Beta HCG ( test) Ql Negative [facility] Serum globulin measurementOr dered By: Lupillo Asif on 11-22-2024 Globulin (S) [Mass/Vol] 4.2 g/dL 2.2-4.2 [facility] Serum or plasma alanine clay otransferase (ALT) measurementOrdered By: Lupillo Asfi on 11-22-2024 ALT [Catalytic activity/Vol] 20 U/L 13-56 [facility] Serum or plasma albumin jazmin urement (mass/volume)Ordered By: Lupillo Asif on 11-22-2024 Albumin [Mass/Vol] 3.6 g/dL 3.2-5.0 [facility] Serum or plasma alkaline dedra sphatase measurementOrdered By: Lupillo Asif on 11-22-2024 ALP [Catalytic activity/Vol] 60 U/L 45-117 [facility] Serum or plasma calcium jazmin urement (mass/volume)Ordered By: Lupillo Asif on 11-22-2024 Calcium [Mass/Vol] 9.1 mg/dL 8.5-10.1 [facility] Serum or plasma creatinine m easurement (mass/volume)Ordered By: Lupillo Asif on 11-22-2024 Creatinine [Mass/Vol] 0.67 mg/dL 0.55-1.02 [facility] Comment on above: The validity of the calculated GFR & GFRAA in patients over 70 years has not been determined. Clinical correlation is essential. Serum or plasma urea nitroge n measurement (mass/volume)Ordered By: Lupillo Asif on 11-22-2024 Urea nitrogen [Mass/Vol] 15 mg/dL 7-18 [facility] Sodium levelOrdered By: Lupillo Asif on 11-22-2024 Sodium [Moles/Vol] 136 mmol/L 136-145 [facility] Squamous epithelial cells de tection in urine sediment by light microscopyOrdered By: Lupillo Asif on 11-22-2024 Epithelial cells.squamous LM Ql (Urine sed) 0-5 SEEN /hpf 5-10 [facility] Total proteinOrdered By: Malou Asif on 11-22-2024 Protein [Mass/Vol] 7.8 g/dL 6.4-8.2 [facility] Transvaginal Non-on 11-22-2024 Transvaginal Non- [facility] Imaging Services [address] [place], [place] [address] Transvaginal Non- MR#: [id number] Acct: [id number] Name: LILLIAN DRAKE Rep #: [id number] : 1985 F 39 From: Reena Esquivel MD PCP: Dr. Maria Regan MD Status: REG ER Study: Transvaginal Non- Date of Exam: Exam# [id number] Ordering Dr: Lupillo Asif MD PROCEDURE: TRANSVAGINAL [...] keeping with polycystic ovarian morphology. Reading Location: [id number] CC: Dr. Lupillo Asif MD; Dr. Maria Regan MD Transcribing Machine Mechanic: Signed Normal [facility] Urinalysis, Completeon 11-22 BACTERIA 1+ /hpf Normal None Seen [facility] Comment on above: Order Comment: CLEAN CATCH Performed By: #### M 100.3200, M100.2000, L7400.0280, L7000.1800 #### [facility] [address] [place], [address] EPI,SQUAMOUS 0-5 SEEN Normal 5-10 [facility] Comment on above: Order Comment: CLEAN CATCH Performed By: #### M 100.3200, M100.1999, L7400.0280, L7000.1800 #### [facility] [address] [place], [address] Mucus Ql (Urine sed) 1+ /hpf Normal [facility] Comment on above: Order Comment: CLEAN CATCH Performed By: #### M 100.3200, M100.1999, L7400.0280, L7000.1800 #### [facility] [address] [place], [address] RBC 0 SEEN Normal 0-5 [facility] Comment on above: Order Comment: CLEAN CATCH Performed By: #### M 100.3200, M100.1999, L7400.0280, L7000.1800 #### [facility] [address] [place], [address] WBC 0-5 SEEN Normal 0-5 [facility] Comment on above: Order Comment: CLEAN CATCH Performed By: #### M 100.3200, M100.1999, L7400.0280, L7000.1800 #### [facility] [address] [place], [address] Urine clarityOrdered By: Malou Asif on 11-22-2024 Clarity (U) Clear Clear [facility] Urine color determinationOrd ered By: Lupillo Asif on 11-22-2024 Color (U) Yellow Yellow [facility] Urine glucose detectionOrder ed By: Lupillo Asif on 11-22-2024 Glucose Ql (U) Normal mg/dl Normal [facility] Urine leukocyte esterase det ection by dipstickOrdered By: Lupillo Asif on 11-22-2024 Leukocyte esterase Test strip Ql (U) Negative Negative [facility] Urine pHOrdered By: Lupillo gupta on 11-22-2024 pH (U) 6.0 [pH] 5.0 - 8.0 [facility] Urine sediment bacteria coun t by microscopy (number/high power field)Ordered By: Lupillo Asif on 11-22-2024 Bacteria LM.HPF (Urine sed) [#/Area] 1 /[HPF] None Seen [facility] Urine specific gravity measu rementOrdered By: Lupillo Asif on 11-22-2024 Specific gravity (U) [Rel density] 1.025 1.002-1.030 [facility] Urine urobilinogen measureme ntOrdered By: Lupillo Asif on 11-22-2024 Urobilinogen Ql (U) Normal mg/dl Normal [facility] White blood cell (WBC) count Ordered By: Lupillo Asif on 11-22-2024 WBC (Bld) [#/Vol] 9.4 10*3/uL 4.4-11.0 [facility] White blood cell countOrdere d By: Lupillo Asif on 11-22-2024 White blood cell count 0-5 SEEN /hpf 0-5 [facility] CNOVon 2024 CNOV Office Visit ([id number]) LILLIAN DRAKE ([id number]) 1985 F Date Time Provider Department 10/16/24 8:40 AM JENNIFER WERNER [id number] During your visit today, we recorded the following information about you: Pulse Blood pressure Weight Height Normal [facility] HIV - WCHon 2024 HIV Non-Reactive Normal Nonreactive [facility] Comment on above: Order Comment: Reaso n for Exam: vaginal discharge Performed By: #### M 100.3200, M100.2000, L7400.0280, L7000.1800 #### [facility] [address] [place], [address] PAP IG HPV APTIMA 16/18,45on 2024 ADEQ Comment Normal . [facility] Comment on above: Order Comment: Speci men Comment: [id number] Specimen Comment: Source.............Cervix;Endocervix Specimen Comment: No. of containers..01 ThinPrep Vial Result Comment: Sati sfactory for evaluation. Endocervical and/or squamous metaplastic cells (endocervical component) are present. Performed By: #### M 100.3200, M100.1999, L7400.0280, L7000.1800 #### [facility] [address] [place], [address] COMM . Normal . [facility] Comment on above: Order Comment: Speci men Comment: [id number] Specimen Comment: Source.............Cervix;Endocervix Specimen Comment: No. of containers..01 ThinPrep Vial Performed By: #### M 100.3200, M100.1999, L7400.0280, L7000.1800 #### [facility] [address] [place], [address] COMMENT Comment Normal . [facility] Comment on above: Order Comment: Speci men Comment: [id number] Specimen Comment: Source.............Cervix;Endocervix Specimen Comment: No. of containers..01 ThinPrep Vial Result Comment: This liquid based ThinPrep(R) pap test was screened with the use of an image guided system. Performed By: #### M 100.3200, M100.1999, L7400.0280, L7000.1800 #### [facility] [address] [place], [address] DIAG Comment Normal . [facility] Comment on above: Order Comment: Speci men Comment: [id number] Specimen Comment: Source.............Cervix;Endocervix Specimen Comment: No. of containers..01 ThinPrep Vial Result Comment: NEGA TIVE FOR INTRAEPITHELIAL LESION OR MALIGNANCY. TRICHOMONAS VAGINALIS IS PRESENT. Performed By: #### M 100.3200, M100.2000, L7400.0280, L7000.1800 #### [facility] [address] [place], [place], [address] HPV APTIMA, HR Negative Normal Negative [facility] Comment on above: Order Comment: Speci men Comment: [id number] Specimen Comment: Source.............Cervix;Endocervix Specimen Comment: No. of containers..01 ThinPrep Vial Result Comment: This nucleic acid amplification test detects fourteen high- risk HPV types (16,18,31,33,35,39,45,51,52,56,58,59,66,68) without differentiation. Performed By: #### M 100.3200, M100.1999, L7400.0280, L7000.1800 #### [facility] [address] [facility] [place], [place], [address] HPV Kirsten Rfx Comment Normal . [facility] Comment on above: Order Comment: Speci men Comment: [id number] Specimen Comment: Source.............Cervix;Endocervix Specimen Comment: No. of containers..01 ThinPrep Vial Result Comment: Tin vázquez not met, HPV Genotype not performed. Performed at: [address] [id number] [employer] [place] [employer]: Jaylin Sandoval MD, Phone: [phone] Performed at: =[address] [id number] [place] [employer]: Jaylin Sandoval MD, Phone: [phone] Performed By: #### M 100.3200, M100.2000, L7400.0280, L7000.1800 #### [facility] [address] [place], [address] PAPSMR Comment Normal . [facility] Comment on above: Order Comment: Speci men Comment: [id number] Specimen Comment: Source.............Cervix;Endocervix Specimen Comment: No. of [...] #### M 100.3200, M100.2000, L7400.0280, L7000.1800 #### [facility] [address] [place], [address] PERFORM Comment Normal . [facility] Comment on above: Order Comment: Speci men Comment: [id number] Specimen Comment: Source.............Cervix;Endocervix Specimen Comment: No. of containers..01 ThinPrep Vial Result Comment: Amy Do, Custom Bow Maker Performed By: #### M 100.3200, M100.2000, L7400.0280, L7000.1800 #### [facility] [address] [place], [address] Chlamydia/GC FRANCESCO aptimaon CHLAMY,NUC ACID Negative Normal Negative [facility] Comment on above: Performed By: #### M 100.3200, M100.2000, L7400.0280, L7000.1800 #### [facility] [address] [place], [address] GC BY NUC ACID Negative Normal Negative [facility] Comment on above: Result Comment: Perf ormed at: =G - [facility] [id number] [employer] [place] [employer]: Jaylin Sandoval MD, Phone: [phone] Performed By: #### M 100.3200, M100.1999, L7400.0280, L7000.1800 #### [facility] [address] [place], [place], [address] HSV 1 AND 2 IgGon 10-15-2024 HSV 1 IgG Normal [facility] Comment on above: Result Comment: RESU LT: REACTIVE Please note reference interval change HSV-1 IgG testing performed using the [employer] HSV-1 IgG assay. Performed By: #### M 100.3200, M100.1999, L7400.0280, L7000.1800 #### [facility] [address] [facility] [place], [place], [address] HSV 2 IgG Normal [facility] Comment on above: Result Comment: RESU [...] [employer] HSV-2 IgG assay. Performed at: [address] [id number] [employer] [place] [employer]: Jovani Jarvis PhD, Phone: [phone] Performed By: #### M 100.3200, M100.1999, L7400.0280, L7000.1800 #### [facility] [address] [facility] [place], [place], [address] Hepatitis B Surface Antigeno n 10-15-2024 HEP B Surf Ag Non-Reactive Normal Nonreactive [facility] Comment on above: Order Comment: Reaso n for Exam: vaginal discharge Performed By: #### M 100.3200, M100.1999, L7400.0280, L7000.1800 #### [facility] [address] [place], [address] Hepatitis C Antibodyon 10-15 Hepatitis C AB Non-Reactive Normal Nonreactive [facility] Comment on above: Order Comment: Reaso n for Exam: vaginal discharge Result Comment: Non Reactive: < 0.8 Equivocal: >/= 0.8 to < 1.0 Reactive: >/= 1.0 The [facility] requires that a reactive/equivocal HCV antibody result be sent out for confirmation. HCV Quant by PCR testing. Performed By: #### M 100.3200, M100.1999, L7400.0280, L7000.1800 #### [facility] [address] [place], [address] L509.8000on 10-15-2024 Syphilis Abs Non-Reactive Normal [facility] Comment on above: Order Comment: Reaso n for Exam: vaginal discharge Performed By: #### M 100.3200, , L7400.0280, L7000.1800 #### [facility] [address] [place], [address] Vitamin D,25 Hydroxyon 10-15 Vitamin D 25-OH 11.7 ng/mL Normal [facility] Comment on above: Order Comment: Reaso n for Exam: vaginal discharge Result Comment: Lois min D 25(OH) Status Range Deficiency <20 ng/mL (50nmol/L) Insufficiency 20 - 30 ng/mL (50 - 75 nmol/L) Sufficiency 30 - 100 ng/mL (75 - 250 nmol/L) Toxicity >100 ng/mL (>250 nmol/L) Performed By: #### M 100.3200, M100.1999, L7400.0280, L7000.1800 #### [facility] [address] [place], [address] Genital Culture Comprehensiv naheed 10-14-2024 VAC Reason for Exam: vaginal discharge Organism is too fastidious for routine susceptibility studies. Genital Culture Comprehensive No yeast or Neisseria isolated. G. vaginalis (Presumptive) Amount Growth 3+ Normal [facility] Comment on above: Performed By: #### M 100.3200, M100.2000, L7400.0280, L7000.1800 #### [facility] [address] [place], [address] Jorge A 10-12-2024 [facility] ([facility]) LILLIAN DRAKE ([id number]) 1985 F Date Time Provider Department 10/12/24 TO [facility] During your visit today, we recorded the [...] Status:Closed by ASHLEE MAYORGA on 10/12/24 Normal [facility] CBC W/Diff, Automatedon 01- Absolute Lymph 2.58 X10 3/uL Normal 0.83-4.51 [facility] Comment on above: Performed By: #### L 3300.1750, L3100.5170, L501.9520, L3890.6300, L500.4050, L3890.6005, L3100.5125, L3890.6100, L100.0100, L506.1000, L3400.1610, L506.0400, L509.8000 ####[facility] [address] [place], [place], [phone] Absolute Neut 5.4 X10 3/uL Normal 2.0-7.7 [facility] Comment on above: Performed By: #### L 3300.1750, L3100.5170, L501.9520, L3890.6300, L500.4050, L3890.6005, L3100.5125, L3890.6100, L100.0100, L506.1000, L3400.1610, L506.0400, L509.8000 ####[facility] [address] [place], [place], [phone]) Basophils/100 WBC (Bld) 0.8 % Normal 0-1 [facility] Comment on above: Performed By: #### L 3300.1750, L3100.5170, L501.9520, L3890.6300, L500.4050, L3890.6005, L3100.5125, L3890.6100, L100.0100, L506.1000, L3400.1610, L506.0400, L509.8000 ####[facility] [address] [place], [place], [phone]) Eosinophils/100 WBC (Bld) 2.2 % Normal 0-5 [facility] Comment on above: Performed By: #### L 3300.1750, L3100.5170, L501.9520, L3890.6300, L500.4050, L3890.6005, L3100.5125, L3890.6100, L100.0100, L506.1000, L3400.1610, L506.0400, L509.8000 ####[facility] [address] [place], [place], [phone]) Erythrocyte distribution width (RBC) [Ratio] 14.3 % Normal 11.6-14.6 [facility] Comment on above: Performed By: #### L 3300.1750, L3100.5170, L501.9520, L3890.6300, L500.4050, L3890.6005, L3100.5125, L3890.6100, L100.0100, L506.1000, L3400.1610, L506.0400, L509.8000 ####[facility] [address] [place], [place], [phone]) Hematocrit (Bld) [Volume fraction] 40.5 % Normal 37-47 [facility] Comment on above: Performed By: #### L 3300.1750, L3100.5170, L501.9520, L3890.6300, L500.4050, L3890.6005, L3100.5125, L3890.6100, L100.0100, L506.1000, L3400.1610, L506.0400, L509.8000 ####[facility] [address] [place], [address](743) Hemoglobin (Bld) [Mass/Vol] 13.3 g/dL Normal 12.0-15.0 [facility] Comment on above: Performed By: #### L 3300.1750, L3100.5170, L501.9520, L3890.6300, L500.4050, L3890.6005, L3100.5125, L3890.6100, L100.0100, L506.1000, L3400.1610, L506.0400, L509.8000 ####[facility] [address] [place], [address] IG% 0.300 Normal 0.0-0.9 [facility] Comment on above: Result Comment: IG% - Immature Granulocytes (promyelocytes, myelocytes and metamyelocytes) > 1% indicates that a LEFT SHIFT is Present. Performed By: #### L 3300.1750, L3100.5170, L501.9520, L3890.6300, L500.4050, L3890.6005, L3100.5125, L3890.6100, L100.0100, L506.1000, L3400.1610, L506.0400, L509.8000 ####[facility] [address] [place], [address] Lymphocytes/100 WBC (Bld) 29.6 % Normal 19-41 [facility] Comment on above: Performed By: #### L 3300.1750, L3100.5170, L501.9520, L3890.6300, L500.4050, L3890.6005, L3100.5125, L3890.6100, L100.0100, L506.1000, L3400.1610, L506.0400, L509.8000 ####[facility] [address] [place], [address] MCH (RBC) [Entitic mass] 29.3 pg Normal 27.0-32.0 [facility] Comment on above: Performed By: #### L 3300.1750, L3100.5170, L501.9520, L3890.6300, L500.4050, L3890.6005, L3100.5125, L3890.6100, L100.0100, L506.1000, L3400.1610, L506.0400, L509.8000 ####[facility] [address] [place], [place], [phone] MCHC (RBC) [Mass/Vol] 32.8 g/dL Normal 32-36 [facility] Comment on above: Performed By: #### L 3300.1750, L3100.5170, L501.9520, L3890.6300, L500.4050, L3890.6005, L3100.5125, L3890.6100, L100.0100, L506.1000, L3400.1610, L506.0400, L509.8000 ####[facility] [address] [place], [address] MCV (RBC) [Entitic vol] 89.2 fL Normal 81-99 [facility] Comment on above: Performed By: #### L 3300.1750, L3100.5170, L501.9520, L3890.6300, L500.4050, L3890.6005, L3100.5125, L3890.6100, L100.0100, L506.1000, L3400.1610, L506.0400, L509.8000 ####[facility] [address] [place], [place], [phone] Monocytes/100 WBC (Bld) 4.8 % Normal 0-10 [facility] Comment on above: Performed By: #### L 3300.1750, L3100.5170, L501.9520, L3890.6300, L500.4050, L3890.6005, L3100.5125, L3890.6100, L100.0100, L506.1000, L3400.1610, L506.0400, L509.8000 ####[facility] [address] [place], [address] Neutrophils/100 WBC (Bld) 62.3 % Normal 47-70 [facility] Comment on above: Performed By: #### L 3300.1750, L3100.5170, L501.9520, L3890.6300, L500.4050, L3890.6005, L3100.5125, L3890.6100, L100.0100, L506.1000, L3400.1610, L506.0400, L509.8000 ####[facility] [address] [place], [address](836) Nucleated RBC (Bld) [#/Vol] 0 10*3/uL Normal 0-5 [facility] Comment on above: Performed By: #### L 3300.1750, L3100.5170, L501.9520, L3890.6300, L500.4050, L3890.6005, L3100.5125, L3890.6100, L100.0100, L506.1000, L3400.1610, L506.0400, L509.8000 ####[facility] [address] [place], [address](282) Platelet mean volume (Bld) [Entitic vol] 10.4 fL Normal 6.2-12.0 [facility] Comment on above: Performed By: #### L 3300.1750, L3100.5170, L501.9520, L3890.6300, L500.4050, L3890.6005, L3100.5125, L3890.6100, L100.0100, L506.1000, L3400.1610, L506.0400, L509.8000 ####[facility] [address] [place], [address] Platelets (Bld) [#/Vol] 232 10*3/uL Normal 150-450 [facility] Comment on above: Performed By: #### L 3300.1750, L3100.5170, L501.9520, L3890.6300, L500.4050, L3890.6005, L3100.5125, L3890.6100, L100.0100, L506.1000, L3400.1610, L506.0400, L509.8000 ####[facility] [address] [place], [place], [phone] RBC (Bld) [#/Vol] 4.54 10*6/uL Normal 4.2-5.4 [facility] Comment on above: Performed By: #### L 3300.1750, L3100.5170, L501.9520, L3890.6300, L500.4050, L3890.6005, L3100.5125, L3890.6100, L100.0100, L506.1000, L3400.1610, L506.0400, L509.8000 ####[facility] [address] [place], [place], [id number] RDW SD 46.2 fl High 35.1-43.9 [facility] Comment on above: Performed By: #### L 3300.1750, L3100.5170, L501.9520, L3890.6300, L500.4050, L3890.6005, L3100.5125, L3890.6100, L100.0100, L506.1000, L3400.1610, L506.0400, L509.8000 ####[facility] [address] [place], [place], [phone] WBC (Bld) [#/Vol] 8.7 10*3/uL Normal 4.4-11.0 [facility] Comment on above: Performed By: #### L 3300.1750, L3100.5170, L501.9520, L3890.6300, L500.4050, L3890.6005, L3100.5125, L3890.6100, L100.0100, L506.1000, L3400.1610, L506.0400, L509.8000 ####[facility] [address] [place], [address] CNOVon 10-11-2024 CNOV Office Visit (UCWSTR ) LILLIAN DRAKE ([id number]) 1985 F Date Time Provider Department 10/11/24 6:15 PM TO [facility] During your visit today, we recorded the following information about you: Temperature Pulse Respiration Blood pressure 97.6 degrees 78/minute 20/minute 100/67 Weight Last Period 78 kg 10/10/24 To Harris PA 10/11/2024 6:54 PM Signed This note was created using [employer]. Subjective Lillian Drake is a 38 year [...] Maternal Grandmother Ischemic Heart Disease Maternal Grandfather [place] at later age Diabetes Maternal Grandfather Hypertension [...] Eyes: Conjunctiva/sclera: (more content not included)... Normal [facility] COVID AND INFLUENZA A/B AND RSV PCR, ROUTINEon 10-11-2024 SARS-CoV-2 (COVID-19) RNA FRANCESCO+probe Ql (Unsp spec) SARS-COV-2 (AGENT OF COVID-19) RNA: Not detected INFLUENZA A RNA: Not detected INFLUENZA B RNA: Not detected RESPIRATORY SYNCYTIAL VIRUS (RSV) RNA: Not detected Normal [facility] Comment on above: Performed By: #### C VFLRS ####[facility] LABCLIA [id number] [place] [address] [place] Comprehensive Metabolic Prof ilon 10-11-2024 Albumin [Mass/Vol] 3.7 g/dL Normal 3.2-5.0 [facility] Comment on above: Performed By: #### L 3300.1750, L3100.5170, L501.9520, L3890.6300, L500.4050, L3890.6005, L3100.5125, L3890.6100, L100.0100, L506.1000, L3400.1610, L506.0400, L509.8000 ####[facility] [address] [place], [place], [id number] Albumin/Globulin [Mass ratio] 0.9 {ratio} Normal 0.9-2.4 [facility] Comment on above: Performed By: #### L 3300.1750, L3100.5170, L501.9520, L3890.6300, L500.4050, L3890.6005, L3100.5125, L3890.6100, L100.0100, L506.1000, L3400.1610, L506.0400, L509.8000 ####[facility] [address] [place], [address] ALK P 67 U/L Normal 45-117 [facility] Comment on above: Performed By: #### L 3300.1750, L3100.5170, L501.9520, L3890.6300, L500.4050, L3890.6005, L3100.5125, L3890.6100, L100.0100, L506.1000, L3400.1610, L506.0400, L509.8000 ####[facility] [address] [place], [address] ALT [Catalytic activity/Vol] 23 U/L Normal 13-56 [facility] Comment on above: Performed By: #### L 3300.1750, L3100.5170, L501.9520, L3890.6300, L500.4050, L3890.6005, L3100.5125, L3890.6100, L100.0100, L506.1000, L3400.1610, L506.0400, L509.8000 ####[facility] [address] [place], [address] AST [Catalytic activity/Vol] 17 U/L Normal 15-37 [facility] Comment on above: Performed By: #### L 3300.1750, L3100.5170, L501.9520, L3890.6300, L500.4050, L3890.6005, L3100.5125, L3890.6100, L100.0100, L506.1000, L3400.1610, L506.0400, L509.8000 ####[facility] [address] [place], [place], [phone] Bilirubin [Mass/Vol] 0.30 mg/dL Normal 0.20-1.00 [facility] Comment on above: Result Comment: For patients on eltrombopag therapy, use of Dimension [place] TBIL is not recommended. Performed By: #### L 3300.1750, L3100.5170, L501.9520, L3890.6300, L500.4050, L3890.6005, L3100.5125, L3890.6100, L100.0100, L506.1000, L3400.1610, L506.0400, L509.8000 ####[facility] [address] [place], [place], [phone] BUN/CRE 23.5 RATIO High 10-20 [facility] Comment on above: Performed By: #### L 3300.1750, L3100.5170, L501.9520, L3890.6300, L500.4050, L3890.6005, L3100.5125, L3890.6100, L100.0100, L506.1000, L3400.1610, L506.0400, L509.8000 ####[facility] [address] [place], [place], [phone] CA,Total 9.1 mg/dL Normal 8.5-10.1 [facility] Comment on above: Performed By: #### L 3300.1750, L3100.5170, L501.9520, L3890.6300, L500.4050, L3890.6005, L3100.5125, L3890.6100, L100.0100, L506.1000, L3400.1610, L506.0400, L509.8000 ####[facility] [address] [place], [address] Chloride [Moles/Vol] 106 mmol/L Normal 98-107 [facility] Comment on above: Performed By: #### L 3300.1750, L3100.5170, L501.9520, L3890.6300, L500.4050, L3890.6005, L3100.5125, L3890.6100, L100.0100, L506.1000, L3400.1610, L506.0400, L509.8000 ####[facility] [address] [place], [place], [phone](145) CO2 [Moles/Vol] 25.0 mmol/L Normal 21.0-32.0 [facility] Comment on above: Performed By: #### L 3300.1750, L3100.5170, L501.9520, L3890.6300, L500.4050, L3890.6005, L3100.5125, L3890.6100, L100.0100, L506.1000, L3400.1610, L506.0400, L509.8000 ####[facility] [address] [place], [place], [phone]([phone]) Creatinine [Mass/Vol] 0.64 mg/dL Normal 0.55-1.02 [facility] Comment on above: Result Comment: The validity of the calculated GFR GFRAA in patients over 70 years has not been determined. Clinical correlation is essential. Performed By: #### L 3300.1750, L3100.5170, L501.9520, L3890.6300, L500.4050, L3890.6005, L3100.5125, L3890.6100, L100.0100, L506.1000, L3400.1610, L506.0400, L509.8000 ####[facility] [address] [place], [place], [phone](212) EST GFR - AA 135 mL/min Normal >60 [facility] Comment on above: Result Comment: Afri can [place] GFR Calc Performed By: #### L 3300.1750, L3100.5170, L501.9520, L3890.6300, L500.4050, L3890.6005, L3100.5125, L3890.6100, L100.0100, L506.1000, L3400.1610, L506.0400, L509.8000 ####[facility] [address] [place], [place], [phone] GAP 6 Normal 5-15 [facility] Comment on above: Performed By: #### L 3300.1750, L3100.5170, L501.9520, L3890.6300, L500.4050, L3890.6005, L3100.5125, L3890.6100, L100.0100, L506.1000, L3400.1610, L506.0400, L509.8000 ####[facility] [address] [place], [address] GFR/1.73 sq M.predicted among non-blacks MDRD (S/P/Bld) [Vol rate/Area] 111 mL/min/{1.73_m2} Normal >60 [facility] Comment on above: Result Comment: Non- GFR Calc Performed By: #### L 3300.1750, L3100.5170, L501.9520, L3890.6300, L500.4050, L3890.6005, L3100.5125, L3890.6100, L100.0100, L506.1000, L3400.1610, L506.0400, L509.8000 ####[facility] [address] [place], [place], [phone] Globulin (S) [Mass/Vol] 3.9 g/dL Normal 2.2-4.2 [facility] Comment on above: Performed By: #### L 3300.1750, L3100.5170, L501.9520, L3890.6300, L500.4050, L3890.6005, L3100.5125, L3890.6100, L100.0100, L506.1000, L3400.1610, L506.0400, L509.8000 ####[facility] [address] [place], [place], [phone](530) Glucose [Mass/Vol] 98 mg/dL Normal 74-106 [facility] Comment on above: Performed By: #### L 3300.1750, L3100.5170, L501.9520, L3890.6300, L500.4050, L3890.6005, L3100.5125, L3890.6100, L100.0100, L506.1000, L3400.1610, L506.0400, L509.8000 ####[facility] [address] [place], [place], [phone](940) Potassium [Moles/Vol] 3.8 mmol/L Normal 3.5-5.1 [facility] Comment on above: Performed By: #### L 3300.1750, L3100.5170, L501.9520, L3890.6300, L500.4050, L3890.6005, L3100.5125, L3890.6100, L100.0100, L506.1000, L3400.1610, L506.0400, L509.8000 ####[facility] [address] [place], [place], [phone](632) Sodium [Moles/Vol] 138 mmol/L Normal 136-145 [facility] Comment on above: Performed By: #### L 3300.1750, L3100.5170, L501.9520, L3890.6300, L500.4050, L3890.6005, L3100.5125, L3890.6100, L100.0100, L506.1000, L3400.1610, L506.0400, L509.8000 ####[facility] [address] [place], [place], [address] T PROT 7.6 g/dL Normal 6.4-8.2 [facility] Comment on above: Performed By: #### L 3300.1750, L3100.5170, L501.9520, L3890.6300, L500.4050, L3890.6005, L3100.5125, L3890.6100, L100.0100, L506.1000, L3400.1610, L506.0400, L509.8000 ####[facility] [address] [place], [place], [phone] Urea nitrogen [Mass/Vol] 15 mg/dL Normal 7-18 [facility] Comment on above: Performed By: #### L 3300.1750, L3100.5170, L501.9520, L3890.6300, L500.4050, L3890.6005, L3100.5125, L3890.6100, L100.0100, L506.1000, L3400.1610, L506.0400, L509.8000 ####[facility] [address] [place], [place], [phone] Estradiolon 10-11-2024 ESTRADIOL 33.0 pg/mL Normal [facility] Comment on above: Result Comment: NORM [...] L3100.5125, L3890.6100, L100.0100, L506.1000, L3400.1610, L506.0400, L509.8000 ####[facility] [address] [place], [place], [phone] Follicle Stimulating Hormone on 10-11-2024 FSH 5.6 mIU/mL Normal [facility] Comment on above: Result Comment: NORMAL REFERENCE RANGES FEMALE FOLLICULAR 2.3 - 12.6 mIU/mL MID-CYCLE PEAK 5.2 - 17.5 mIU/mL LUTEAL 1.7 - 12.9 mIU/mL POST-MENOPAUSAL ON MHT 5.9 - 72.8 mIU/mL NOT ON MHT 12.7 - 132.2 mlU/mL MALE 0.7 - 10.8 mIU/mL Performed By: #### L 3300.1750, L3100.5170, L501.9520, L3890.6300, L500.4050, L3890.6005, L3100.5125, L3890.6100, L100.0100, L506.1000, L3400.1610, L506.0400, L509.8000 ####[facility] [address] [place], [place], [phone] Gram Stainon 10-11-2024 GS Reason for Exam: vaginal discharge Gram Stain 1+ Gram positive cocci 4+ Gram variable hu No Gram negative diplococci 1+ Epithelial cells Score = 9 Interpretation: 0-3 Normal, 4-6 Intermediate, 7-10 Positive BV Normal [facility] Comment on above: Performed By: #### M 100.3200, M100.2000, L7400.0280, L7000.1800 #### [facility] [address] [place], [place], [phone] Luteinizing Hormoneon 2024 LH 8.4 mIU/mL Normal [facility] Comment on above: Result Comment: NORMAL REFERENCE RANGES FEMALE FOLLICULAR 1.9 - 26.2 mIU/mL MID-CYCLE PEAK 22.8 - 76.1 mIU/mL LUTEAL 0.6 - 16.6 mIU/mL POST-MENOPAUSAL ON MHT 1.1 - 52.4 mIU/mL NOT ON MHT 8.6 - 61.8 mIU/mL MALE 1.2 - 10.6 mIU/mL Performed By: #### L 3300.1750, L3100.5170, L501.9520, L3890.6300, L500.4050, L3890.6005, L3100.5125, L3890.6100, L100.0100, L506.1000, L3400.1610, L506.0400, L509.8000 ####[facility] [address] 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 Normal [facility] STREP A MOLECULAR (POC)on Procedural Control Valid [facility] Strep A (POCT) Negative Negative [facility] T4 Free Directon 10-11-2024 T4 FREE DIRECT 0.75 ng/dL Low 0.76-1.46 [facility] Comment on above: Performed By: #### L 3300.1750, L3100.5170, L501.9520, L3890.6300, L500.4050, L3890.6005, L3100.5125, L3890.6100, L100.0100, L506.1000, L3400.1610, L506.0400, L509.8000 ####[facility] [address] [place], [place], [address] Thyroid Stim Hormone (TSH)on 10-11-2024 TSH 1.200 uIU/mL Normal 0.358-3.740 [facility] Comment on above: Performed By: #### L 3300.1750, L3100.5170, L501.9520, L3890.6300, L500.4050, L3890.6005, L3100.5125, L3890.6100, L100.0100, L506.1000, L3400.1610, L506.0400, L509.8000 ####[facility] [address] [place], [address] [facility] Telephone ([id number]) LILLIAN DRAKE ([id number]) 1985 F Date Time Provider Department 08/28/24 JENNIFER CHRISTINA [id number] During your visit today, we recorded the [...] Encounter Status:Closed by BRENTON NATHAN on 08/28/24 [facility] XR ANKLE 3V AP/LAT/OBL LTon 07-16-2024 [...] joint effusion. IMPRESSION: No acute osseous abnormality. Transcribing Machine Mechanic: [facility] Transcribe Date/Time: Jul 18 2024 7:34A Dictated by : LOUIS FOSTER MD This examination was interpreted and the report reviewed and electronically signed by: LOUIS FOSTER MD on Jul 18 2024 7:36AM EST [id number] Normal [facility] XR ANKLE 3V AP/LAT/OBL RTon 07-16-2024 XR [...] joint effusion. IMPRESSION: No acute osseous abnormality. Transcribing Machine Mechanic: [facility] Transcribe Date/Time: Jul 18 2024 7:33A Dictated by : LOUIS FOSTER MD This examination was interpreted and the report reviewed and electronically signed by: LOUIS FOSTER MD on Jul 18 2024 7:34AM EST [id number] Normal [facility] XR KNEE 3V AP/LAT/MERCHANT L Ton 07-16-2024 [...] tissue swelling. IMPRESSION: Negative left knee x-ray. Transcribing Machine Mechanic: SAVITA Transcribe Date/Time: Jul 19 2024 2:36P Dictated by : DENTON MONTEZ MD This examination was interpreted and the report reviewed and electronically signed by: DENTON MONTEZ MD on Jul 19 2024 2:38PM EST [id number] Normal [facility] XR KNEE 3V AP/LAT/MERCHANT R Ton 07-16-2024 [...] joint effusion. IMPRESSION: No acute bony abnormality. Transcribing Machine Mechanic: SAVITA Transcribe Date/Time: Jul 23 2024 8:43P Dictated by : RICKI DUARTE MD This examination was interpreted and the report reviewed and electronically signed by: RICKI DUARTE MD on Jul 23 2024 8:44PM EST [id number] Normal [facility] CNOVon 07-12-2024 CNOV Office Visit ([id number]) LILLIAN DRAKE ([id number]) 1985 F Date Time Provider Department 07/12/24 9:00 AM JENNIFER CHRISTINA [id number] During your visit today, we recorded the following information about you: Pulse Respiration Blood pressure Weight 72/minute 18/minute 109/69 74.4 kg Height 1.6 m Jennifer Christina MD 07/12/2024 3:[address] Jennifer Werner M.D. Primary care [facility] [place] Visit Date: July 12, 2024 9:06 AM Ms.Kelly Jarek Drake Date of : 1985 MRN/E #: [id number] Chief Complaint: Patient presents with: Refill Request: [...] (Given) - Date: 07/12/2024 - Lot #: [id number] - Dose: 0.5 mL - Site: Right deltoid - Service Operations Manager: [employer] P[employer]ur - Given By: JOSEPHINE GUTIERREZ - Expiration Date: 04/01/2025 Jennifer Christina MD [facility] ([place]) present in clinic at time of injection. [...] Treatments tried: continues on Sertraline 150mg QD, Victoria Vera ER 450mg QD. ACTIVE PROBLEM LIST Adult [...] kids, shared custody. Pt currently working at [employer], part-time, . 2 kids in school, other [...] Eyes: Negat (more content not included)... Normal [facility] CNOVon 07-09-2024 [facility] Office Visit (UCWSTR ) LILLIAN DRAKE ([id number]) 1985 F Date Time Provider Department 07/09/24 8:00 AM TO [facility] During your visit today, we recorded the following information about you: Temperature Pulse Respiration Blood pressure 97.1 degrees 78/minute 16/minute 122/70 Weight 74.1 kg To Harris PA 07/09/2024 8:12 AM Signed This note was created using [employer]. Subjective Lillian Santanaey is a 38 year [...] Maternal Grandmother Ischemic Heart Disease Maternal Grandfather [place] at later age Diabetes Maternal Grandfather Hypertension [...] nursing no (more content not included)... Normal [facility] COVID AND INFLUENZA A/B AND RSV PCR, ROUTINEon 07-09-2024 SARS-CoV-2 (COVID-19) RNA FRANCESCO+probe Ql (Unsp spec) SARS-COV-2 (AGENT OF COVID-19) RNA: Not detected INFLUENZA A RNA: Not detected INFLUENZA B RNA: Not detected RESPIRATORY SYNCYTIAL VIRUS (RSV) RNA: Not detected Normal [facility] Comment on above: Performed By: #### C VFLRS ####[facility] LABCLIA [id number] [place] [id number] [place] CNPNon 06-21-2024 CNPN Telephone (AGRHEUHWN ) LILLIAN DRAKE ([id number]) 1985 F Date Time Provider Department 06/21/24 FORTINO TEJEDAUHWAll During your visit today, we recorded the following information about you: Mejia Mata 06/21/2024 12:14 PM Signed Functional medicine referral You have to go to [facility] Dayan Sapp Allergies As of Date: [...] Encounter Status:Closed by MEJIA MATA on 06/21/24 [facility] CNOVon 06-20-2024 CNOV Office Visit (UCWSTR ) LILLIAN DRAKE ([id number]) 1985 F Date Time Provider Department 06/20/24 3:15 PM [facility] During your visit today, we recorded the following information about you: Temperature Pulse Respiration Blood pressure 97.6 degrees 76/minute 16/minute 108/62 Weight 74.5 kg Kellee Rai APRN.SKI PRODUCTION SUPERVISOR 06/20/2024 3:58 PM Signed This note was created using Infotrieveriter. Subjective Lillian Drake is a 38 year [...] colds per year. Colds are transmitted from bmjuuf-yt-lttsod. Less often, the virus can be transmitted [...] days, alt (more content not included)... Normal [facility] 06-20-2024 CNPN Telephone (RHBATH) LILLIAN DRAKE ([id number]) 1985 F Date Time Provider Department 06/20/24 [...] Signed Scheduled with a virtual for [place] [id number] at [facility] Phan Allergies As of Date: 06/20/2024 Noted [...] Status:Closed by CASSIE TODD on 06/20/24 Normal [facility] COVID AND INFLUENZA A/B AND RSV PCR, ROUTINEon 06-20-2024 SARS-CoV-2 (COVID-19) RNA FRANCESCO+probe Ql (Unsp spec) SARS-COV-2 (AGENT OF COVID-19) RNA: Not detected INFLUENZA A RNA: Not detected INFLUENZA B RNA: Not detected RESPIRATORY SYNCYTIAL VIRUS (RSV) RNA: Not detected Normal [facility] Comment on above: Performed By: #### C VFLRS ####[facility] LABCLIA [id number] [address] OF [facility] 06-19-2024 [facility] Telephone ([id number]) LILLIAN DRAKE ([id number]) 1985 F Date Time Provider Department 06/19/24 JENNIFER CHRISTINA [id number] During your visit today, we recorded the [...] diagnosed. Please advise. DELIA Sánchez Jenny L, APRN.SKI PRODUCTION SUPERVISOR 06/20/2024 8:20 AM Signed Please advise patient to schedule in office appt for evaluation. Encouraged Tylenol up to 1000 mg every 8 hours as needed. Can also try Aleve twice daily with food Let me know if questions Noelle Cummins APRN.SKI PRODUCTION SUPERVISOR June 20, 2024 8:20 AM Toney [...] Encounter Status:Closed by TONEY GUILLAUME on 06/19/24 [facility] CNOVon 06-15-2024 CNOV Office Visit (UCWSTR ) LILLIAN DRAKE ([id number]) 1985 F Date Time Provider Department 06/15/24 3:45 PM TO [facility] During your visit today, we recorded the following information about you: Temperature Pulse Respiration Blood pressure 98.3 degrees 77/minute 20/minute 96/66 Weight Last Period 73 kg 05/21/24 To Harris PA 06/15/2024 4:05 PM Signed This note was created using Infotrieveriter. Subjective Lillian Drake is a 38 year [...] partial, sustained full, or sustained partial remission ([facility]) 12/10/2014 labor delivered 6 weeks early Recurrent major depressive disorder, in partial remission ([facility]) 11/19/2015 Rh negative state in [...] Maternal Grandmother Ischemic Heart Disease Maternal Grandfather [place] at later age Diabetes Maternal Grandfather Hypertension [...] sinus tenderne (more content not included)... Normal [facility] XR CHEST 2V FRONTAL/LATon XR CHEST 2V [...] tissues: Unremarkable. IMPRESSION: No acute radiographic abnormality. Transcribing Machine Mechanic: SAVITA Transcribe Date/Time: Jun 15 2024 3:58P Dictated by : DILSHAD CAZARES MD This examination was interpreted and the report reviewed and electronically signed by: DILSHAD CAZARES MD on Jun 15 2024 4:00PM EST [id number] Normal [facility] XR Chest PA and Lateralon IMPRESSION: No acute radiographic abnormality. Transcribing Machine Mechanic: SAVITA Transcribe Date/Time: Jun 15 2024 3:58P Dictated by : DILSHAD CAZARES MD This examination was interpreted and the report reviewed and electronically signed by: DILSHAD CAZARES MD on Jun 15 2024 4:00PM [facility] DIVISION OF RADIOLOGY * * *Final Report* [...] soft tissues: Unremarkable. DIVISION OF RADIOLOGY Provider, [facility] - 06/15/2024 * * *Final [...] Unremarkable. IMPRESSION IMPRESSION: No acute radiographic abnormality. Transcribing Machine Mechanic: SAVITA Transcribe Date/Time: Jun 15 2024 3:58P Dictated by : DILSHAD CAZARES MD This examination was interpreted and the report reviewed and electronically signed by: DILSHAD CAZARES MD on Jun 15 2024 4:00PM EST [facility] Radiology Study observation (narrative) [facility] XR Chest PA and LateralOrder ed By: Ccf Provider on 06-15-2024 [facility] CNOVon 04-27-2024 CNOV Office Visit (UCWSTR ) LILLIAN DRAKE ([id number]) 1985 F Date Time Provider Department 04/27/24 1:15 PM RICKI LAF[facility] During your visit today, we recorded the following information about you: Temperature Pulse Respiration Blood pressure 97 degrees 82/minute 16/minute 122/74 Weight 69.7 kg Ricki Lafleur APRN.SKI PRODUCTION SUPERVISOR 04/27/2024 1:49 PM Signed Subjective HPI [...] Maternal Grandmother Ischemic Heart Disease Maternal Grandfather [place] at later age Diabetes Maternal Grandfather Hypertension [...] No dischar (more content not included)... Normal [facility] XR CHEST 2V FRONTAL/LATon XR CHEST 2V [...] tissues: Unremarkable. IMPRESSION: No acute radiographic abnormality. Transcribing Machine Mechanic: SAVITA Transcribe Date/Time: Apr 27 2024 1:29P Dictated by : DENTON MONTEZ MD This examination was interpreted and the report reviewed and electronically signed by: DENTON MONTEZ MD on Apr 27 2024 1:29PM EST [id number] Normal [facility] XR Chest PA and Lateralon IMPRESSION: No acute radiographic abnormality. Transcribing Machine Mechanic: SAVITA Transcribe Date/Time: Apr 27 2024 1:29P Dictated by : DENTON MONTEZ MD This examination was interpreted and the report reviewed and electronically signed by: DENTON MONTEZ MD on Apr 27 2024 1:29PM [facility] DIVISION OF RADIOLOGY * * *Final Report* [...] soft tissues: Unremarkable. DIVISION OF RADIOLOGY Provider, [facility] - 04/27/2024 * * *Final [...] Unremarkable. IMPRESSION IMPRESSION: No acute radiographic abnormality. Transcribing Machine Mechanic: SAVITA Transcribe Date/Time: Apr 27 2024 1:29P Dictated by : DENTON MONTEZ MD This examination was interpreted and the report reviewed and electronically signed by: DENTON MONTEZ MD on Maximino 26 2024 1:29PM [facility] Radiology Study observation (narrative) [facility] XR Chest PA and LateralOrder ed By: Ccf Provider on 04-27-2024 [facility] Genital Culture Comprehensiv naheed 04-01-2024 VAC Reason for Exam: pel jose m pain Yeast, not Divine albicans Amount Growth 3+ Normal [facility] Comment on above: Performed By: #### M 100.3200, M100.2000, L7400.0280, L7000.1800 #### [facility] [address] [place], [address] Emergency Department Summary on 03-29-2024 Emergency Department Summary [facility] Medical Records Department [address] [place] [address] Emergency Department Summary 03/29/24 MR#: [id number] Acct: [id number] Name: LILLIAN DRAKE Rep #: [id number] : 1985 38 From: Al Hassan MD [...] has never had before. She saw her FLAP PRESSER today who did a pelvic exam, she was sent here afterwards, the patient states she is looking for answers clearly. When I asked her about her pelvic exam, she states that the majority of it was insensate until they were pushing on her ovaries and she states that was a little sore. 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 Normal [facility] Gram Stainon 03-29-2024 GS Reason for Exam: pel jose m pain Gram Stain 4+ Yeast Like Organisms 4+ Gram positive rods 1+ White Blood Cells No Gram negative diplococci Score = 0 Interpretation: 0-3 Normal, 4-6 Intermediate, 7-10 Positive BV Normal [facility] Comment on above: Performed By: #### M 100.3200, M100.2000, L7400.0280, L7000.1800 #### [facility] [address] 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 Test Fire Worker Office Visit Report [facility] [address] [place] [address] OFFICE VISIT Date of Service: 03/29/24 MR#: [id number] Acct: [id number] Name: LILLIAN DRAKE Rep #: [id number] : 1985 Provider: EMERITA junior Age/Sex: 38/F [place] [facility] Status: Signed Intake Vital Signs 03/27/24 14:48 03/29/24 09:00 Height 5 ft 3 in 5 ft 3 in Weight: 155 lb 2 oz BMI 27.4 BP 116/84 H Intake Visit Reasons: Pelvic pain, ER follow up Chief Complaint: pelvic pain ER f/u Car Varnisher Required: No Is patient in pain?: No [...] (Updated 03/29/24 @ 09:58 by Cinthia Flores COURTESY DRIVER, APRILC) depression History of premature rupture of [...] occupational status: employed 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 ROS Const Constitutional: Reports system reviewed and no additional compl (more content not included)... Normal [facility] Spine Lumbar (Routine)on Spine Lumbar (Routine) [facility] Imaging Services [address] [place], [place] [address] Spine Lumbar (Routine) MR#: [id number] Acct: [id number] Name: LILLIAN DRAKE Rep #: [id number] : 1985 F 38 From: Lupillo Lynn MD PCP: JENNIFER GOODMAN MD Status: REG ER Study: Spine Lumbar (Routine) Date of Exam: 03/29/24 Exam# [id number] Ordering [place]: [place] [id number] STUDY: MRI LUMBAR SPINE WITHOUT CONTRAST REASON [...] Dr. Al Hassan MD; JENNIFER GOODMAN MD Transcribing Machine Mechanic: Signed Normal [facility] CNOVon 03-28-2024 OV Office Visit ([id number]) LILLIAN DRAKE ([id number]) 1985 F Date Time Provider Department 03/28/24 3:40 PM MEHRAN COOPER [id number] During your visit today, we recorded the following information about you: Pulse Respiration Blood pressure Weight 84/minute 18/minute 101/66 70.8 kg Height 1.6 m Mehran Cooper, MAURICIO.SARA 03/28/2024 4:49 PM Signed [facility] [address] Date of Evaluation: 03/28/2024 Patient Name: Lillian [...] Intramuscular Given without incident. 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 She was evaluated at [facility] yesterday. Records not available. She reports [...] Maternal Grandmother Ischemic Heart Disease Maternal Grandfather [place] at later age Diabetes Maternal Grandfather Hypertension Maternal Grandfather Thyro (more content not included)... Normal [facility] CNPNon 03-28-2024 CNPN Telephone ([id number] ) LILLIAN DRAKE ([id number]) 1985 F Date Time Provider Department 03/28/24 MEHRAN COOPER [id number] During your visit today, we recorded the following information about you: Meron Tubbs 03/28/2024 4:49 PM Signed Physical Therapy Confirmation number: [id number] Meron Tubbs 04/13/2024 7:44 AM Signed Patient [...] Encounter Status:Closed by MERON TUBBS on 03/28/24 [facility] Basophil percentageOrdered B y: Eliseo Ricardo on 01-23-2024 Chloride [Moles/Vol] 109 mmol/L 98-107 [facility] Glucose [Mass/Vol] 87 mg/dL 74-106 [facility] Potassium [Moles/Vol] 3.8 mmol/L 3.5-5.1 [facility] Sodium [Moles/Vol] 136 mmol/L 136-145 [facility] Laboratory - Chemistry and C hemistry - challengeOrdered By: Eliseo Ricardo on 01-23-2024 CO2 [Moles/Vol] 19.0 mmol/L 21.0-32.0 [facility] Urea nitrogen/Creatinine [Mass ratio] 21.2 mg/mg 10-20 [facility] No Panel InformationOrdered By: Eliseo Ricardo on 01-23-2024 Estimated Creatinine Clearance Calc 121.71 ml/min [facility] Estimated GFR (MDRD) Amer 142 mL/min >60 [facility] Comment on above: GFR Calc Estimated GFR (MDRD) Non-Af Amer 117 mL/min >60 [facility] Comment on above: Non- GFR Calc Serum or plasma calcium jazmin urement (mass/volume)Ordered By: Eliseo Ricardo on 01-23-2024 Calcium [Mass/Vol] 9.0 mg/dL 8.5-10.1 [facility] Serum or plasma choriogonado tropin detectionOrdered By: Eliseo Ricardo on 01-23-2024 HCG ( test) Ql Negative [facility] Serum or plasma creatinine m easurement (mass/volume)Ordered By: Eliseo Ricardo on 01-23-2024 Creatinine [Mass/Vol] 0.61 mg/dL 0.55-1.02 [facility] Comment on above: The validity of the calculated GFR & GFRAA in patients over 70 years has not been determined. Clinical correlation is essential. Serum or plasma urea nitroge n measurement (mass/volume)Ordered By: Eliseo Ricardo on 01-23-2024 Urea nitrogen [Mass/Vol] 13 mg/dL 7-18 [facility] Thin prep Papanicolaou smear with manual screeningOrdered By: Eliseo Ricardo on 01-23-2024 Thin prep Papanicolaou smear with manual screening 8 02-14 [facility] .Auto Diffon 12-25-2023 Basophil, Absolute 0.1 10 3/mcL Normal 0.0-0.2 [facility] ([place]) Comment on above: Performed By: #### A CLINT, LIP, ADIFF, CBC, MDW, CMP, GFR #### [address] [address] Basophils/100 WBC (Bld) 0.6 % Normal 0.0-2.5 [facility] ([place]) Comment on above: Performed By: #### A CLINT, LIP, ADIFF, CBC, MDW, CMP, GFR #### [address] [address] Eosinophil, Absolute 0.4 10 3/mcL Normal 0.0-0.4 Count includes the [facility] ([place]) Comment on above: Performed By: #### A CLINT, LIP, ADIFF, CBC, MDW, CMP, GFR #### [address] [address] Eosinophils/100 WBC (Bld) 4.3 % Normal 0.0-7.0 [facility] ([place]) Comment on above: Performed By: #### A CLINT, LIP, ADIFF, CBC, MDW, CMP, GFR #### [address] [address] Lymphocyte, Absolute 2.2 10 3/mcL Normal 0.8-3.9 Count includes the [facility] ([place]) Comment on above: Performed By: #### A CLINT, LIP, ADIFF, CBC, MDW, CMP, GFR #### [address] [address] Lymphocytes/100 WBC (Bld) 25.4 % Normal 10.0-50.0 [facility] ([place]) Comment on above: Performed By: #### A CLINT, LIP, ADIFF, CBC, MDW, CMP, GFR #### [address] [address] Monocyte, Absolute 0.4 10 3/mcL Normal 0.2-1.0 [facility] ([place]) Comment on above: Performed By: #### A CLINT, LIP, ADIFF, CBC, MDW, CMP, GFR #### [address] [address] Monocytes/100 WBC (Bld) 4.6 % Normal 1.7-13.0 [facility] ([place]) Comment on above: Performed By: #### A CLINT, LIP, ADIFF, CBC, MDW, CMP, GFR #### [address] [address] Neutrophils/100 WBC (Bld) 65.1 % Normal 37.0-80.0 [facility] ([place]) Comment on above: Performed By: #### A CLINT, LIP, ADIFF, CBC, MDW, CMP, GFR #### [address] [address] .GFRon 12-25-2023 GFR 103 ml/min/1.73sqm Normal [facility] ([place]) Comment on above: Result Comment: GFR Population [...] Performed By: #### P REGU, UA #### [address] [address] GFR Non- 85 ml/min/1.73sqm Normal [facility] ([place]) Comment on above: Result Comment: GFR Population [...] Performed By: #### P REGU, UA #### [address] [address] .MDWon 12-25-2023 Monocyte Distribution Width 16.35 Normal 0.00-20.00 [facility] ([place]) Comment on above: Result Comment: For ED adult patients suspected of sepsis, MDW<=20.0 does not rule out sepsis or risk of sepsis Performed By: #### A CLINT, LIP, ADIFF, CBC, MDW, CMP, GFR #### [address] [address] .NEUABSon 12-25-2023 Neutrophil, Absolute 5.5 10 3/mcL Normal 2.9-6.2 Count includes the [facility] ([place]) Comment on above: Performed By: #### A CLINT, LIP, ADIFF, CBC, MDW, CMP, GFR #### [address] [address] .Urinalysis Microscopic (AO) on 12-25-2023 UA Bacteria Trace Abnormal [facility] ([place] Comment on above: Performed By: #### P REGU, UAMICAO, UA #### [place] [address] UA RBC 0-5 Abnormal None Seen [facility] ([place] Comment on above: Performed By: #### P REGU, UAMICAO, UA #### [place] [address] UA Squam Epithelial LOADED Abnormal None Seen [facility] ([place]) Comment on above: Performed By: #### P REGU, UAMICAO, UA #### [place] [address] UA WBC 0-5 Abnormal None Seen [facility] ([place] Comment on above: Performed By: #### P REGU, UAMICAO, UA #### [place] [address] UA Yeast Trace Abnormal [facility] ([place] Comment on above: Performed By: #### P REGU, UAMICAO, UA #### [place] [address] CBCon 12-25-2023 Erythrocyte distribution width (RBC) [Ratio] 14.8 % High 11.5-14.5 [facility] ([place]) Comment on above: Performed By: #### A CLINT, LIP, ADIFF, CBC, MDW, CMP, GFR #### [place] [address] Hematocrit (Bld) [Volume fraction] 41.3 % Normal 37.0-47.0 [facility] ([place] Comment on above: Performed By: #### A CLINT, LIP, ADIFF, CBC, MDW, CMP, GFR #### [place] [address] Hgb 14.0 G/dL Normal 12.0-16.0 [facility] ([place] Comment on above: Performed By: #### A CLINT, LIP, ADIFF, CBC, MDW, CMP, GFR #### [place] [address] MCH (RBC) [Entitic mass] 29.9 pg Normal 27.0-31.2 [facility] ([place]) Comment on above: Performed By: #### A CLINT, LIP, ADIFF, CBC, MDW, CMP, GFR #### [address] [address] MCHC 33.9 G/dL Normal 33.0-37.0 [facility] ([place] Comment on above: Performed By: #### A CLINT, LIP, ADIFF, CBC, MDW, CMP, GFR #### [address] [address] MCV (RBC) [Entitic vol] 88.2 fL Normal 80.0-94.0 [facility] ([place] Comment on above: Performed By: #### A CLINT, LIP, ADIFF, CBC, MDW, CMP, GFR #### [address] [address] Platelet 238 10 3/mcL Normal 130-400 [facility] ([place] Comment on above: Performed By: #### A CLINT, LIP, ADIFF, CBC, MDW, CMP, GFR #### [address] [address] Platelet mean volume (Bld) [Entitic vol] 7.9 fL Normal 7.4-10.4 [facility] ([place] Comment on above: Performed By: #### A CLINT, LIP, ADIFF, CBC, MDW, CMP, GFR #### [address] [address] RBC 4.68 10 6/mcL Normal 4.20-5.40 [facility] ([place]) Comment on above: Performed By: #### A CLINT, LIP, ADIFF, CBC, MDW, CMP, GFR #### [address] [address] WBC 8.5 10 3/mcL Normal 4.6-10.8 [facility] ([place] Comment on above: Performed By: #### A CLINT, LIP, ADIFF, CBC, MDW, CMP, GFR #### [address] [address] CMPon 12-25-2023 Albumin Level 4.1 G/dL Normal 3.5-5.0 [facility] ([place]) Comment on above: Performed By: #### P REGU, UA #### [address] [address] Albumin/Globulin [Mass ratio] 1.1 {ratio} Normal 1.1-2.5 [facility] ([place]) Comment on above: Performed By: #### P REGU, UA #### [address] [address] ALP [Catalytic activity/Vol] 67 U/L Normal 40-135 [facility] ([place] Comment on above: Performed By: #### P REGU, UA #### [address] [address] ALT [Catalytic activity/Vol] 17 U/L Normal 14-59 [facility] ([place] Comment on above: Performed By: #### P REGU, UA #### [address] [address] AST [Catalytic activity/Vol] 11 U/L Normal 10-40 [facility] ([place] Comment on above: Performed By: #### P REGU, UA #### [address] [address] Bili Total 0.2 mg/dL Normal 0.2-1.0 [facility] ([place]) Comment on above: Result Comment: Use of this assay is not recommended for patients undergoing treatment with eltrombopag due to the potential for falsely elevated results. Performed By: #### P REGU, UA #### [address] [address] BUN/Creatinine Ratio 16 ratio Normal 7-27 [facility] ([place]) Comment on above: Performed By: #### P REGU, UA #### [address] [address] Calcium [Mass/Vol] 9.4 mg/dL Normal 8.4-10.2 [facility] ([place]) Comment on above: Performed By: #### P REGU, UA #### [address] [address] Chloride [Moles/Vol] 104 mmol/L Normal 98-107 [facility] ([place] Comment on above: Performed By: #### P REGU, UA #### [address] [address] CO2 [Moles/Vol] 26 mmol/L Normal 22-29 [facility] ([place] Comment on above: Performed By: #### P REGU, UA #### [address] [address] Creatinine [Mass/Vol] 0.77 mg/dL Normal 0.55-1.02 [facility] ([place]) Comment on above: Performed By: #### P REGU, UA #### [address] [address] Electrolyte Balance 13.0 mEq/L Normal 4.0-15.0 [facility] ([place]) Comment on above: Performed By: #### P REGU, UA #### [address] [address] Globulin 3.8 G/dL Normal [facility] ([place] Comment on above: Performed By: #### P REGU, UA #### [address] [address] Glucose [Mass/Vol] 83 mg/dL Normal 70-105 [facility] ([place] Comment on above: Performed By: #### P REGU, UA #### [address] [address] Potassium [Moles/Vol] 3.8 mmol/L Normal 3.5-5.1 [facility] ([place]) Comment on above: Performed By: #### P REGU, UA #### [address] [address] Sodium [Moles/Vol] 143 mmol/L Normal 136-145 [facility] ([place]) Comment on above: Performed By: #### P REGU, UA #### [facility] [address] [place], [place] [address] Total Protein 7.9 G/dL Normal 6.4-8.2 [facility] ([place] Comment on above: Performed By: #### P REGU, UA #### Estephania [address] [place], [place] [address] Urea nitrogen [Mass/Vol] 12 mg/dL Normal 7-18 [facility] ([place] Comment on above: Performed By: #### P REGU, UA #### Estephania [address] [place], [place] [address] LABORATORYOrdered By: SYSTEM SYSTEM on 12-25-2023 Albumin [...] 12-25-2023 Lipase Level 47 U/L Normal 16-77 [facility] ([place] Comment on above: Performed By: #### P REGU, UA #### [address] [address] PREGUon 12-25-2023 HCG ( test) Ql (U) Negative Normal [facility] ([place] Comment on above: Performed By: #### P REGU, UAMICAO, UA #### [address] [address] test (u) int Not detected Invalid Interpretation Code [facility] ([place] Comment on above: Performed By: #### P REGU, UAMICAO, UA #### [address] [address] UAon 12-25-2023 Color (U) Yellow Normal [facility] ([place] Comment on above: Performed By: #### P REGU, UAMICAO, UA #### [address] [address] Glucose (U) [Mass/Vol] Negative Normal Negative Count includes the [facility] ([place]) Comment on above: Performed By: #### P REGU, UAMICAO, UA #### [address] [address] Ketones Ql (U) Negative Normal Negative [facility] ([place] Comment on above: Performed By: #### P REGU, UAMICAO, UA #### [address] [address] UA Appear Slightly Cloudy Abnormal Clear [facility] ([place] Comment on above: Performed By: #### P REGU, UAMICAO, UA #### [address] [address] UA Blood Negative Normal Negative [facility] ([place] Comment on above: Performed By: #### P REGU, UAMICAO, UA #### [address] [address] UA Leuk Est Negative Normal Negative [facility] ([place] Comment on above: Performed By: #### P REGU, UAMICAO, UA #### [address] [address] UA Nitrite Negative Normal Negative [facility] ([place] Comment on above: Performed By: #### P REGU, UAMICAO, UA #### [address] [address] UA pH 7.0 Normal 5.0 - 8.0 [facility] ([place] Comment on above: Performed By: #### P REGU, UAMICAO, UA #### [address] [address] UA Protein Negative Normal Negative [facility] ([place] Comment on above: Performed By: #### P REGU, UAMICAO, UA #### [address] [address] UA Spec Grav 1.020 Normal 1.015-1.025 [facility] ([place] Comment on above: Performed By: #### P REGU, UAMICAO, UA #### [address] [address] UA Specimen Type Void Normal [facility] ([place] Comment on above: Performed By: #### P REGU, UAMICAO, UA #### [address] [address] UA Urobilinogen 0.2 E.U./dL Normal 0.2-1.0 [facility] ([place] Comment on above: Performed By: #### P REGU, UAMICAO, UA #### [address] [address] Urobilinogen (U) [Mass/Vol] Negative Normal Negative [facility] ([place] Comment on above: Performed By: #### P REGU, UAMICAO, UA #### [place] [address] [place], [place] [address] LABORATORYOrdered By: Nadege Quach on 03-06-2023 Appearance [...] HCG ( test) Ql (U) Negative Normal [facility] ([place] Comment on above: Performed By: #### P REGU, UA #### [place] [address] [place], [place] [address] test (u) int Not detected Invalid Interpretation Code [facility] ([place]) Comment on above: Performed By: #### P REGU, UA #### [address] [address] UAon 03-06-2023 Color (U) Yellow Normal [facility] ([place] Comment on above: Performed By: #### P REGU, UA #### [address] [address] Glucose (U) [Mass/Vol] Negative Normal Negative Count includes the [facility] ([place]) Comment on above: Performed By: #### P REGU, UA #### [address] [address] Ketones Ql (U) Negative Normal Negative [facility] ([place] Comment on above: Performed By: #### P REGU, UA #### [address] [address] UA Appear Clear Normal Clear [facility] ([place] Comment on above: Performed By: #### P REGU, UA #### [address] [address] UA Blood Negative Normal Negative [facility] ([place] Comment on above: Performed By: #### P REGU, UA #### [address] [address] UA Leuk Est Negative Normal Negative [facility] ([place] Comment on above: Performed By: #### P REGU, UA #### [address] [address] UA Nitrite Negative Normal Negative [facility] ([place] Comment on above: Performed By: #### P REGU, UA #### [address] [address] UA pH 7.5 Normal 5.0 - 8.0 [facility] ([place] Comment on above: Performed By: #### P REGU, UA #### [address] [address] UA Protein Negative Normal Negative [facility] ([place] Comment on above: Performed By: #### P REGU, UA #### E[address]ia [address] [address] UA Spec Grav 1.020 Normal 1.015-1.025 [facility] ([place] Comment on above: Performed By: #### P REGU, UA #### [address] [place] [address] [place], [place] [address] UA Specimen Type Clean Catch Normal [facility] ([place] Comment on above: Performed By: #### P REGU, UA #### Este[address] [place] [address] [place], [place] [address] UA Urobilinogen 0.2 E.U./dL Normal 0.2-1.0 [facility] ([place] Comment on above: Performed By: #### P REGU, UA #### E[address] [address] Urobilinogen (U) [Mass/Vol] Negative Normal Negative [facility] ([place] Comment on above: Performed By: #### P REGU, UA #### [address] [address] XR ABDOMEN APon 03-06-2023 XR ABDOMEN AP [...] 03/06/2023 3:17:07 PM Ordering Provider: JESSICA Sharma [facility] ([place] BRAIN WO/W IVCONon 12-10 [facility] LABORATORYOrdered By: Mil Briseno on 10-07-2022 Appearance [...] 09/29/2022 03:27 PM Modules accepted: Orders Normal [facility] [id number] 09-28-2022 [id number] Referral sent. Normal [facility] Office Visiton 09-23-2022 Follow-up visit [id number] Kia Fiore 1985 F Date Provider Department Center 09/23/2022 [id number] LI [facility] Family History Problem Relation Age of Onset COPD Paternal Grandmother Breast cancer Neg Hx Colon cancer Neg Hx Uterine cancer Neg Hx Ovarian cancer Neg Hx Family Status - Relation Status Age at Paternal Grandmother Alive Neg Hx Father Alive Mother Alive Maternal Grandmother Alive Maternal Grandfather Paternal Grandfather Alive Level of Service:61405 MA OFFICE/OUTPATIENT NEW MODERATE MDM 45-59 MINUTES Reason for Visit and Comments: ER Follow-up [831] Fatigue [46] Extremity Swelling [795] Rash [[id number]] Normal [facility] PATINSon 09-23-2022 PATINS Start tylenol 1000 m g every 8 hours for 5-7 days, then as needed after that for pain every 8 hours. Normal [facility] Progress Noteon 09-23-2022 Progress Note Consistent with cont act dermatitis bilateral arms. Is improving, continue emollient cream avoid further possible irritants. Normal [facility] Progress Note Clinical exam consistent with mild carpal tunnel syndrome bilateral. Recommend nighttime splinting avoid prolonged flexion of wrists. Begin stretches for carpal tunnel once inflammation has decreased and less painful. Normal [facility] Progress Note Majority of numbness in hands is likely secondary to carpal tunnel exacerbated by recent increased use of hands and wrists. Will check B12, TSH. CBC CMP ESR in the emergency room. Normal [facility] Progress Note Symptoms diffuse, wi ll check Rh, BING, CRP. ESR was normal in ER. Normal [facility] Progress Note We will check BING, repeat CRP and TSH Normal [facility] Progress Note Stable. Continue sertraline 100 mg daily Normal [facility] Progress Note 09/23/2022 Lillian Fiore (: [...] and for ER follow up. Went to [place] [facility] for generalized joint stiffness, hands, feet, [...] snuff box (more content not included)... Normal [facility] Absolute lymphocyte counton 09-17-2022 Lymphocytes Auto (Unsp spec) [#/Vol] 2.20 10*3/uL 0.83-4.51 [facility] Work Phone: Basophil percentageon 2021 Basophil percentage 0 SEEN /hpf 0-5 [facility] Work Phone: Basophils/100 WBC (Bld) 0.6 % 0-1 [facility] Work Phone: Chloride [Moles/Vol] 105 mmol/L 98-107 [facility] Work Phone: Eosinophils/100 WBC (Bld) 2.2 % 0-5 [facility] Work Phone: Glucose [Mass/Vol] 88 mg/dL 74-106 [facility] Work Phone: Neutrophils (Bld) [#/Vol] 4.2 10*3/uL 2.0-7.7 [facility] Work Phone: Neutrophils/100 WBC (Bld) 59.9 % 47-70 [facility] Work Phone: Potassium [Moles/Vol] 4.1 mmol/L 3.5-5.1 [facility] Work Phone: Comment on above: Moderate Hemolysis, Result may be falsely increased. Sodium [Moles/Vol] 135 mmol/L 136-145 [facility] Work Phone: WBC (Bld) [#/Vol] 7.0 10*3/uL 4.4-11.0 [facility] Work Phone: Beta hCG serum qualon 2021 Beta HCG ( test) Ql Negative [facility] Work Phone: Bilirubin Test strip Ql (U)o n 09-17-2022 Bilirubin Ql (U) Negative Negative [facility] Work Phone: Blood erythrocytes count (nu mber/volume)on 09-17-2022 RBC (Bld) [#/Vol] 4.87 10*6/uL 4.2-5.4 [facility] Work Phone: Blood hemoglobin measurement (mass/volume)on 09-17-2022 Hemoglobin (Bld) [Mass/Vol] 12.8 g/dL 12.0-15.0 [facility] Work Phone: Blood lymphocytes/100 leukoc yteson 09-17-2022 Lymphocytes/100 WBC (Bld) 31.6 % 19-41 [facility] Work Phone: Blood monocytes/100 leukocyt eson 09-17-2022 Monocytes/100 WBC (Bld) 5.3 % 0-10 [facility] Work Phone: Blood platelet mean volumeon 09-17-2022 Platelet mean volume (Bld) [Entitic vol] 10.1 fL 6.2-12.0 [facility] Work Phone: Determination of erythrocyte mean corpuscular volume (MCV)on 09-17-2022 MCV (RBC) [Entitic vol] 83.2 fL 81-99 [facility] Work Phone: [phone] Erythrocyte sedimentation ra mateusz 09-17-2022 ESR (Bld) [Velocity] 17 mm/h 0-30 [facility] Work Phone: [phone] Hematocrit Auto (Bld) [Volum e fraction]on 09-17-2022 Hematocrit (Bld) [Volume fraction] 40.5 % 37-47 [facility] Work Phone: [phone] Ketones Test strip Ql (U)on 09-17-2022 Ketones Ql (U) Negative Negative [facility] Work Phone: Laboratory - Chemistry and C hemistry - challengeon 09-17-2022 CO2 [Moles/Vol] 24.0 mmol/L 21.0-32.0 [facility] Work Phone: Urea nitrogen/Creatinine [Mass ratio] 25.6 mg/mg 10-20 [facility] Work Phone: [phone] Laboratory - Hematology and Cell countson 09-17-2022 Erythrocyte distribution width (RBC) [Entitic vol] 57.2 fL 35.1-43.9 [facility] Work Phone: [phone] Erythrocyte distribution width (RBC) [Ratio] 18.9 % 11.6-14.6 [facility] Work Phone: [phone] Immature granulocytes/100 WBC (Bld) 0.400 % 0.0-0.9 [facility] Work Phone: Comment on above: IG% - Immature Granu locytes (promyelocytes, myelocytes and metamyelocytes) > 1% indicates that a LEFT SHIFT is Present. MCH (RBC) [Entitic mass] 26.3 pg 27.0-32.0 [facility] Work Phone: Nucleated RBC/100 WBC (Bld) [Ratio] 0 % 0-5 [facility] Work Phone: [phone] MCHC Auto (RBC) [Mass/Vol]on 09-17-2022 MCHC (RBC) [Mass/Vol] 31.6 g/dL 32-36 [facility] Work Phone: [phone] Mucus LM Ql (Urine sed)on Mucus Ql (Urine sed) 0 SEEN /hpf [facility] Work Phone: [phone] Nitrite Test strip Ql (U)on 09-17-2022 Nitrite Ql (U) Negative Negative [facility] Work Phone: No Panel Informationon 09-17 Estimated Creatinine Clearance Calc 104.08 ml/min [facility] Work Phone: [phone] Estimated GFR (MDRD) Amer 139 mL/min >60 [facility] Work Phone: Comment on above: GFR Calc Estimated GFR (MDRD) Non-Af Amer 115 mL/min >60 [facility] Work Phone: Comment on above: Non- GFR Calc Platelets bldon 09-17-2022 Platelets (Bld) [#/Vol] 196 10*3/uL 150-450 [facility] Work Phone: [phone] Protein Test strip Ql (U)on 09-17-2022 Protein Ql (U) Negative Negative [facility] Work Phone: [phone] Serum or plasma C reactive p rotein measurement (mass/volume)on 09-17-2022 CRP [Mass/Vol] 3.29 mg/L 0.0-3.0 [facility] Work Phone: Comment on above: C-Reactive Protein ( CRP) provides useful information for thediagnosis, therapy and monitoring of inflammatory processesand associated diseases. For the evaluation of Relative Riskfor Cardiovascular Disease, a High Sensitivity CRP (HSCRP)should be ordered. Serum or plasma calcium jazmin urement (mass/volume)on 09-17-2022 Calcium [Mass/Vol] 8.7 mg/dL 8.5-10.1 [facility] Work Phone: Serum or plasma creatinine m easurement (mass/volume)on 09-17-2022 Creatinine [Mass/Vol] 0.63 mg/dL 0.55-1.02 [facility] Work Phone: Comment on above: The validity of the calculated GFR & GFRAA in patients over 70 years has not been determined. Clinical correlation is essential. Serum or plasma urea nitroge n measurement (mass/volume)on 09-17-2022 Urea nitrogen [Mass/Vol] 16 mg/dL 7-18 [facility] Work Phone: Squamous epithelial cells de tection in urine sediment by light microscopyon 09-17-2022 Epithelial cells.squamous LM Ql (Urine sed) 5-10 SEEN /hpf 5-10 [facility] Work Phone: Thin prep Papanicolaou smear with manual screeningon 09-17-2022 Thin prep Papanicolaou smear with manual screening 6 5-15 [facility] Work Phone: Urine blood detectionon 09-02 RBC Ql (U) Negative Negative [facility] Work Phone: RBC Ql (U) 0-5 SEEN /hpf 0-5 [facility] Work Phone: Urine clarityon 09-17-2022 Clarity (U) Sl. Cloudy Clear [facility] Work Phone: Urine color determinationon 09-17-2022 Color (U) Yellow Yellow [facility] Work Phone: Urine glucose detectionon Glucose Ql (U) Normal mg/dl Normal [facility] Work Phone: Urine leukocyte esterase det ection by dipstickon 09-17-2022 Leukocyte esterase Test strip Ql (U) Negative Negative [facility] Work Phone: [phone] Urine pHon 09-17-2022 pH (U) 7.0 [pH] 5.0 - 8.0 [facility] Work Phone: Urine sediment bacteria coun t by microscopy (number/high power field)on 09-17-2022 Bacteria LM.HPF (Urine sed) [#/Area] 0 /[HPF] None Seen [facility] Work Phone: Urine specific gravity measu rementon 09-17-2022 Specific gravity (U) [Rel density] 1.010 1.002-1.030 [facility] Work Phone: Urobilinogen Auto test strip Ql (U)on 09-17-2022 Urobilinogen Ql (U) Normal mg/dl Normal [facility] Work Phone: XR CHEST 2V FRONTAL/LATon [facility] XR Chest PA and Lateralon IMPRESSION: No acute radiographic abnormality. Transcribing Machine Mechanic: [facility] Transcribe Date/Time: Aug 03 2022 10:08A Dictated by : YVONNE COLINDRES MD This examination was interpreted and the report reviewed and electronically signed by: YVONNE COLINDRES MD on Aug 03 2022 10:09AM [facility] DIVISION OF RADIOLOGY * * *Final Report* [...] soft tissues: Unremarkable. DIVISION OF RADIOLOGY Provider, [facility] - 08/03/2022 * * *Final Report* [...] Unremarkable. IMPRESSION IMPRESSION: No acute radiographic abnormality. Transcribing Machine Mechanic: [facility] Transcribe Date/Time: Aug 03 2022 10:08A Dictated by : YVONNE COLINDRES MD This examination was interpreted and the report reviewed and electronically signed by: YVONNE COLINDRES MD on Aug 03 2022 10:09AM EST [facility] Radiology Study observation (narrative) [facility] XR Chest PA and LateralOrder ed By: [facility] Provider on 08-03-2022 [facility] Basophil percentageon 2021 WBC (Bld) [#/Vol] 19.2 10*3/uL 4.4-11.0 [facility] Work Phone: Blood erythrocytes count (nu mber/volume)on 06-25-2022 RBC (Bld) [#/Vol] 3.47 10*6/uL 4.2-5.4 [facility] Work Phone: Blood hemoglobin measurement (mass/volume)on 06-25-2022 Hemoglobin (Bld) [Mass/Vol] 9.4 g/dL 12.0-15.0 [facility] Work Phone: Blood platelet mean volumeon 06-25-2022 Platelet mean volume (Bld) [Entitic vol] 10.2 fL 6.2-12.0 [facility] Work Phone: Determination of erythrocyte mean corpuscular volume (MCV)on 06-25-2022 MCV (RBC) [Entitic vol] 84.4 fL 81-99 [facility] Work Phone: Hematocrit Auto (Bld) [Volum e fraction]on 06-25-2022 Hematocrit (Bld) [Volume fraction] 29.3 % 37-47 [facility] Work Phone: Laboratory - Hematology and Cell countson 06-25-2022 Erythrocyte distribution width (RBC) [Entitic vol] 41.8 fL 35.1-43.9 [facility] Work Phone: Erythrocyte distribution width (RBC) [Ratio] 13.6 % 11.6-14.6 [facility] Work Phone: MCH (RBC) [Entitic mass] 27.1 pg 27.0-32.0 [facility] Work Phone: MCHC Auto (RBC) [Mass/Vol]on 06-25-2022 MCHC (RBC) [Mass/Vol] 32.1 g/dL 32-36 [facility] Work Phone: Platelets bldon 06-25-2022 Platelets (Bld) [#/Vol] 206 10*3/uL 150-450 [facility] Work Phone: Basophil percentageon 2021 Basophil percentage 0-5 SEEN /hpf 0-5 [facility] Work Phone: Bilirubin Test strip Ql (U)o n 06-24-2022 Bilirubin Ql (U) Negative Negative [facility] Work Phone: Ketones Test strip Ql (U)on 06-24-2022 Ketones Ql (U) Negative Negative [facility] Work Phone: Laboratory - Drug toxicology on 06-24-2022 Benzodiazepines Ql (U) Negative < 200 ng/mL [facility] Work Phone: Cannabinoids Screen Ql (U) Negative < 50 ng/mL [facility] Work Phone: Cocaine Ql (U) Negative < 300 ng/mL [facility] Work Phone: Opiates Ql (U) Negative < 300 ng/mL [facility] Work Phone: Mucus LM Ql (Urine sed)on Mucus Ql (Urine sed) 0 SEEN /hpf [facility] Work Phone: Nitrite Test strip Ql (U)on 06-24-2022 Nitrite Ql (U) Negative Negative [facility] Work Phone: No Panel Informationon 06-24 Vaginal Amniotic Fluid Detection Positive Negative [facility] Work Phone: Comment on above: Amniotic fluid prese nt indicates rupture of Membranes. RESULTS CALLED TO [facility] 06/24/221811 Radha Julien.REPORT READ BACK BY SAME . MDMA (Ecstasy) Screen Negative < 500 ng/mL [facility] Work Phone: [phone] Urine Barbiturates Screen Positive < 200 ng/mL [facility] Work Phone: [phone] Urine Drug Screen Comment [facility] Work Phone: Comment on above: CONFIRMATORY [...] Screen Negative < 300 ng/mL [facility] Work Phone: [phone] Protein Test strip Ql (U)on 06-24-2022 Protein Ql (U) Negative Negative [facility] Work Phone: [phone] Squamous epithelial cells de tection in urine sediment by light microscopyon 06-24-2022 Epithelial cells.squamous LM Ql (Urine sed) 5-10 SEEN /hpf 5-10 [facility] Work Phone: [phone] Urine amphetamine measuremen t (moles/volume)on 06-24-2022 Amphetamine (U) [Moles/Vol] Negative <1000 ng/mL [facility] Work Phone: [phone] Urine blood detectionon 09-2 2-2022 RBC Ql (U) Negative Negative [facility] Work Phone: RBC Ql (U) 0-5 SEEN /hpf 0-5 [facility] Work Phone: Urine clarityon 06-24-2022 Clarity (U) Clear Clear [facility] Work Phone: Urine color determinationon 06-24-2022 Color (U) Yellow Yellow [facility] Work Phone: Urine glucose detectionon Glucose Ql (U) Normal mg/dl Normal [facility] Work Phone: Urine leukocyte esterase det ection by dipstickon 06-24-2022 Leukocyte esterase Test strip Ql (U) Negative Negative [facility] Work Phone: Urine pHon 06-24-2022 pH (U) 6.5 [pH] 5.0 - 8.0 [facility] Work Phone: Urine phencyclidine (PCP) de tectionon 06-24-2022 Phencyclidine Ql (U) Negative < 25 ng/mL [facility] Work Phone: Urine sediment bacteria coun t by microscopy (number/high power field)on 06-24-2022 Bacteria LM.HPF (Urine sed) [#/Area] 1 /[HPF] None Seen [facility] Work Phone: Urine specific gravity measu rementon 06-24-2022 Specific gravity (U) [Rel density] 1.015 1.002-1.030 [facility] Work Phone: Urobilinogen Auto test strip Ql (U)on 06-24-2022 Urobilinogen Ql (U) Normal mg/dl Normal [facility] Work Phone: STREP A MOLECULAR (POC)on Procedural Control Valid [facility] Strep A (POCT) Negative Negative [facility] Progress Noteon 06-22-2022 Aircraft Systems Technician Authentication Interface Message Text [facility] MATERNAL MEDICINE - [facility] DR. ALVAREZ OFFICE VISIT NOTE DOS: 06/22/2022 06/22/2022 Chief Complaint She presents for review of progress in thus far and for comprehensive review of her maternal -obstetric- risks in this . The reasons for the visit are as highlighted in the concluding summary communication to information technology data analyst which is my problem-based office review. History [...] mg daily that was started by her information technology data analyst and she is doing well. We discussed [...] --> Status: F No growth (<1,000 CFU/ml). [facility] Comment on above: Performed By: #### C /UR #### [address] Group B Strep Screen PCRon 0 06-21-2022 Group B Strep Screen PCR Group B Strep Screen PCR --> Status: F NEGATIVE Expected Result: Negative CDC guidelines for prevention of Group B Strep disease recommends collection of both vaginal and rectal specimens for optimal recovery of GBS. Methodology - Real Time PCR (SocialSamba) Expected Result: Negative CDC guidelines for prevention of Group B Strep disease recommends collection of both vaginal and rectal specimens for optimal recovery of GBS. Methodology - Real Time PCR (Nanosysid) [facility] Comment on above: Performed By: #### G BSPC #### [address] Antibody Identificationon Antibody Identification Antibody Identification: POS, ANTI D FROM RHOGAM [facility] Comment on above: Performed By: #### T SGL, ABID #### [facility] Fibrinogenon 06-20-2022 Fibrinogen 286 mg/dL Normal 200-400 [facility] Comment on above: Performed By: #### F IBGN, PT/AP #### [address] Fibrinogen 286 mg/dL 200 - 400 mg/dL [facility] No Panel Informationon 06-20 Test Performed by [address] LAB [facility] PROTIME/INR & PTTon 06-20-20 22 aPTT Coag (Bld) [Time] 26.6 s 20 - 30.5 s [facility] Comment on above: NOTE: The therapeuti c time for Heparin anticoagulation, based on Xa activity inhibition, is an APTT of 46-80 seconds. INR Coag (Bld) [Relative time] 0.9 {INR} [facility] Comment on above: Recommended Anticoag ulant Therapy: [...] [Time] 9.9 s 9 - 12 s [facility] Comment on above: . Protime AND APTTon aPTT Coag (Bld) [Time] 26.6 s Normal 20.0-30.5 [facility] Comment on above: Result Comment: NOTE : The therapeutic time for Heparin anticoagulation, based on Xa activity inhibition, is an APTT of 46-80 seconds. Performed By: #### F IBGN, PT/AP #### [facility] [address] [place] [address] INR 0.9 Normal 0.9-1.1 [facility] Comment on above: Result Comment: Tolu [...] Performed By: #### F IBGN, PT/AP #### [facility] [address] [place] [address] PT Coag (PPP) [Time] 9.9 s Normal 9.0-12.0 [facility] Comment on above: Result Comment: . Performed By: #### F IBGN, PT/AP #### [facility] [address] [place] [address] ANTIBODY IDENTIFICATIONon Antibody ID POS, ANTI D FROM RHOGAM [facility] Test Performed by [address] LAB [facility] C. Trachomatis / N. Gonorrho eae, DNA Probeon 06-19-2022 C. trachomatis DNA FRANCESCO+probe Ql (Genital specimen) NOT Detected Chlamydia trachomatis Nucleic Acid NOT Detected by DNA Amplification using the Nanosysid System. Culture is the only recommended test in medical-legal cases such as suspected child abuse or molestation. [facility] N. gonorrhoeae DNA FRANCESCO+probe Ql (Unsp spec) NOT Detected Neisseria gonorrhoeae Nucleic Acid NOT Detected by DNA Amplification using the [employer] System. Culture is the only recommended test in medical-legal cases such as suspected child abuse or molestation. [facility] Test Performed by [address] LAB [facility] CBCon 06-19-2022 Hematocrit (Bld) [...] - 10.7 10*3/uL [facility] Test Performed by [facility], [address] [place], [place] [id number] [place] [address] Chlamydia and GC PCR Panelon 06-19-2022 Chlamydia and GC PCR Panel Chlamydia trachomatis PCR --> Status: F NOT Detected Chlamydia trachomatis Nucleic Acid NOT Detected by DNA Amplification using the [employer] System. Culture is the only recommended test [...] as suspected child abuse or molestation. Normal [facility] Comment on above: Performed By: #### C TNGP #### [address] [address] [place], [place] Hemogramon 06-19-2022 Erythrocyte distribution width (RBC) [Ratio] 13.9 % Normal 11.5-14.5 [facility] Comment on above: Performed By: #### H EMOG #### [address] Hematocrit (Bld) [Volume fraction] 31.7 % Low 35.0-47.0 [facility] Comment on above: Performed By: #### H EMOG #### [address] [address] [address] [place], [place] Hemoglobin (Bld) [Mass/Vol] 9.9 g/dL Low 11.7-16.0 [facility] Comment on above: Performed By: #### H EMOG #### [address] [address] [place], [place] MCH (RBC) [Entitic mass] 26.1 pg Normal 26.0-34.0 [facility] Comment on above: Performed By: #### H EMOG #### [address] [address] [place], [place] MCHC 31.3 % Low 32.0-36.0 [facility] Comment on above: Performed By: #### H EMOG #### [address] MCV (RBC) [Entitic vol] 83.3 fL Normal 79.0-98.0 [facility] Comment on above: Performed By: #### H EMOG #### [address] [address] [place] Platelet mean volume (Bld) [Entitic vol] 8.8 fL Normal 7.4-12.4 [facility] Comment on above: Result Comment: MPV is a calculated measurement using platelet volume ratio. Performed By: #### H EMOG #### [address] Platelets (Bld) [#/Vol] 210 10*3/uL Normal 140-440 [facility] Comment on above: Performed By: #### H EMOG #### [address] RBC (Bld) [#/Vol] 3.80 10*6/uL Normal 3.80-5.20 [facility] Comment on above: Performed By: #### H EMOG #### [address] WBC (Bld) [#/Vol] 15.1 10*3/uL High 3.6-10.7 [facility] Comment on above: Performed By: #### H EMOG #### [address] TS GELon 06-19-2022 TS GEL ABO Group: A Rh, Gel: NEG Antibody Screen Gel: POS Normal [facility] Comment on above: Performed By: #### T SGL, ABID #### [facility] TYPE AND SCREENon 06-19-2022 [facility] Test Performed by [facility], [address], [place] [id number] [place] [address] LAB [facility] Absolute lymphocyte counton 06-18-2022 Lymphocytes Auto (Unsp spec) [#/Vol] 0.94 10*3/uL 0.83-4.51 [facility] Work Phone: Basophil percentageon 2021 C. trachomatis DNA FRANCESCO+probe Ql (Unsp spec) Negative Negative [facility] Work Phone: Basophils/100 WBC (Bld) 0.2 % 0-1 [facility] Work Phone: Eosinophils/100 WBC (Bld) 0.0 % 0-5 [facility] Work Phone: Neutrophils (Bld) [#/Vol] 12.7 10*3/uL 2.0-7.7 [facility] Work Phone: Neutrophils/100 WBC (Bld) 91.0 % 47-70 [facility] Work Phone: WBC (Bld) [#/Vol] 14.0 10*3/uL 4.4-11.0 [facility] Work Phone: Bilirubin Test strip Ql (U)o n 06-18-2022 Bilirubin Ql (U) Negative Negative [facility] Work Phone: Blood erythrocytes count (nu mber/volume)on 06-18-2022 RBC (Bld) [#/Vol] 3.90 10*6/uL 4.2-5.4 [facility] Work Phone: Blood hemoglobin measurement (mass/volume)on 06-18-2022 Hemoglobin (Bld) [Mass/Vol] 10.7 g/dL 12.0-15.0 [facility] Work Phone: Blood lymphocytes/100 leukoc yteson 06-18-2022 Lymphocytes/100 WBC (Bld) 6.7 % 19-41 [facility] Work Phone: Blood manual differential co mment interpretation (narrative result)on 06-18-2022 Manual differential comment Jett (Bld) [Interp] SCANNED [facility] Work Phone: Blood monocytes/100 leukocyt eson 06-18-2022 Monocytes/100 WBC (Bld) 1.4 % 0-10 [facility] Work Phone: [phone] Blood platelet adequacy dete ction by light microscopyon 06-18-2022 Platelets LM Ql (Bld) ADEQUATE ADEQ [facility] Work Phone: [phone] Blood platelet mean volumeon 06-18-2022 Platelet mean volume (Bld) [Entitic vol] 11.9 fL 6.2-12.0 [facility] Work Phone: [phone] Determination of erythrocyte mean corpuscular volume (MCV)on 06-18-2022 MCV (RBC) [Entitic vol] 91.0 fL 81-99 [facility] Work Phone: [phone] Hematocrit Auto (Bld) [Volum e fraction]on 06-18-2022 Hematocrit (Bld) [Volume fraction] 35.5 % 37-47 [facility] Work Phone: [phone] Ketones Test strip Ql (U)on 06-18-2022 Ketones Ql (U) 5 mg/dl Negative [facility] Work Phone: Laboratory - Chemistry and C hemistry - challengeon 06-18-2022 Glucose Ql (U) Negative [facility] Work Phone: [phone] Laboratory - Hematology and Cell countson 06-18-2022 Erythrocyte distribution width (RBC) [Entitic vol] 45.2 fL 35.1-43.9 [facility] Work Phone: [phone] Erythrocyte distribution width (RBC) [Ratio] 13.6 % 11.6-14.6 [facility] Work Phone: [phone] Immature granulocytes/100 WBC (Bld) 0.700 % 0.0-0.9 [facility] Work Phone: [phone] Comment on above: IG% - Immature Granu locytes (promyelocytes, myelocytes and metamyelocytes) > 1% indicates that a LEFT SHIFT is Present. MCH (RBC) [Entitic mass] 27.4 pg 27.0-32.0 [facility] Work Phone: Nucleated RBC/100 WBC (Bld) [Ratio] 0 % 0-5 [facility] Work Phone: Laboratory - Urinalysison Protein Ql (U) Negative [facility] Work Phone: MCHC Auto (RBC) [Mass/Vol]on 06-18-2022 MCHC (RBC) [Mass/Vol] 30.1 g/dL 32-36 [facility] Work Phone: Neisseria gonorrhoeae detect ion by PCRon 06-18-2022 N. gonorrhoeae DNA FRANCESCO+probe Ql (Cervical mucus) Negative Negative [facility] Work Phone: Nitrite Test strip Ql (U)on 06-18-2022 Nitrite Ql (U) Negative Negative [facility] Work Phone: No Panel Informationon 06-18 Specimen Comment (Misc) Not Reportable [facility] Work Phone: Platelets bldon 06-18-2022 Platelets (Bld) [#/Vol] 214 10*3/uL 150-450 [facility] Work Phone: Protein Test strip Ql (U)on 06-18-2022 Protein Ql (U) 15 mg/dl Negative [facility] Work Phone: Thin prep Papanicolaou smear with manual screeningon 06-18-2022 Thin prep Papanicolaou smear with manual screening Negative Negative [facility] Work Phone: Urine blood detectionon 06-03 RBC Ql (U) Negative Negative [facility] Work Phone: Urine clarityon 06-18-2022 Clarity (U) Clear Clear [facility] Work Phone: Urine color determinationon 06-18-2022 Color (U) Yellow Yellow [facility] Work Phone: Urine glucose detectionon Glucose Ql (U) Normal mg/dl Normal [facility] Work Phone: Urine leukocyte esterase det ection by dipstickon 06-18-2022 Leukocyte esterase Test strip Ql (U) Negative Negative [facility] Work Phone: Urine pHon 06-18-2022 pH (U) 6.5 [pH] 5.0 - 8.0 [facility] Work Phone: Urine specific gravity measu rementon 06-18-2022 Specific gravity (U) [Rel density] 1.020 1.002-1.030 [facility] Work Phone: Urobilinogen Auto test strip Ql (U)on 06-18-2022 Urobilinogen Ql (U) Normal mg/dl Normal [facility] Work Phone: Progress Noteon 06-01-2022 Aircraft Systems Technician Authentication Interface Message Text [facility] MATERNAL MEDICINE - at [place] DR. ALVAREZ OFFICE VISIT NOTE DOS: 06/01/2022 06/01/2022 Chief Complaint She presents for review of progress in thus far and for comprehensive review of her maternal -obstetric- risks in this . The reasons for the visit are as highlighted in the concluding summary communication to information technology data analyst which is my problem-based office review. History [...] mg daily that was started by her information technology data analyst and she is doing well. We discussed [...] and subsequent 3-hour OGTT T values are [phone] all of which are within normal limits [...] tolerance 3 hours gestational panel See comment [facility] Work Phone: Comment on above: FASTING [...] Auto (Unsp spec) [#/Vol] 1.34 10*3/uL 0.83-4.51 [facility] Work Phone: Basophil percentageon 2021 Basophils/100 WBC (Bld) 0.4 % 0-1 [facility] Work Phone: Eosinophils/100 WBC (Bld) 0.6 % 0-5 [facility] Work Phone: Neutrophils (Bld) [#/Vol] 6.6 10*3/uL 2.0-7.7 [facility] Work Phone: Neutrophils/100 WBC (Bld) 77.8 % 47-70 [facility] Work Phone: WBC (Bld) [#/Vol] 8.5 10*3/uL 4.4-11.0 [facility] Work Phone: Blood erythrocytes count (nu mber/volume)on 05-21-2022 RBC (Bld) [#/Vol] 3.91 10*6/uL 4.2-5.4 [facility] Work Phone: Blood hemoglobin measurement (mass/volume)on 05-21-2022 Hemoglobin (Bld) [Mass/Vol] 11.0 g/dL 12.0-15.0 [facility] Work Phone: Blood lymphocytes/100 leukoc yteson 05-21-2022 Lymphocytes/100 WBC (Bld) 15.8 % 19-41 [facility] Work Phone: Blood monocytes/100 leukocyt eson 05-21-2022 Monocytes/100 WBC (Bld) 4.9 % 0-10 [facility] Work Phone: Blood platelet mean volumeon 05-21-2022 Platelet mean volume (Bld) [Entitic vol] 10.3 fL 6.2-12.0 [facility] Work Phone: Determination of erythrocyte mean corpuscular volume (MCV)on 05-21-2022 MCV (RBC) [Entitic vol] 87.2 fL 81-99 [facility] Work Phone: Gestational diabetes screen 1-hour screen with 50g oral glucose loadon 05-21-2022 Glucose 1 Hr post 50 g glucose PO [Mass/Vol] 151 mg/dL 70-140 [facility] Work Phone: Hematocrit Auto (Bld) [Volum e fraction]on 05-21-2022 Hematocrit (Bld) [Volume fraction] 34.1 % 37-47 [facility] Work Phone: Laboratory - Chemistry and C hemistry - challengeon 05-21-2022 Glucose Ql (U) Negative [facility] Work Phone: Laboratory - Hematology and Cell countson 05-21-2022 Erythrocyte distribution width (RBC) [Entitic vol] 41.6 fL 35.1-43.9 [facility] Work Phone: [phone] Erythrocyte distribution width (RBC) [Ratio] 13.3 % 11.6-14.6 [facility] Work Phone: [phone] Immature granulocytes/100 WBC (Bld) 0.500 % 0.0-0.9 [facility] Work Phone: [phone] Comment on above: IG% - Immature Granu locytes (promyelocytes, myelocytes and metamyelocytes) > 1% indicates that a LEFT SHIFT is Present. MCH (RBC) [Entitic mass] 28.1 pg 27.0-32.0 [facility] Work Phone: [phone] Nucleated RBC/100 WBC (Bld) [Ratio] 0 % 0-5 [facility] Work Phone: Laboratory - Urinalysison Protein Ql (U) Trace [facility] Work Phone: [phone] MCHC Auto (RBC) [Mass/Vol]on 05-21-2022 MCHC (RBC) [Mass/Vol] 32.3 g/dL 32-36 [facility] Work Phone: [phone] Platelets bldon 05-21-2022 Platelets (Bld) [#/Vol] 222 10*3/uL 150-450 [facility] Work Phone: Laboratory - Chemistry and C hemistry - challengeon 05-07-2022 Glucose Ql (U) Negative [facility] Work Phone: Laboratory - Urinalysison Protein Ql (U) Negative [facility] Work Phone: Laboratory - Chemistry and C hemistry - challengeon 04-09-2022 Glucose Ql (U) Negative [facility] Work Phone: Laboratory - Urinalysison Protein Ql (U) Negative [facility] Work Phone: Laboratory - Chemistry and C hemistry - challengeon 03-11-2022 Glucose Ql (U) Negative [facility] Work Phone: Laboratory - Urinalysison Protein Ql (U) Negative [facility] Work Phone: Absolute lymphocyte counton 02-12-2022 Lymphocytes Auto (Unsp spec) [#/Vol] 1.88 10*3/uL 0.83-4.51 [facility] Work Phone: Basophil percentageon 2021 Basophils/100 WBC (Bld) 0.3 % 0-1 [facility] Work Phone: Eosinophils/100 WBC (Bld) 2.3 % 0-5 [facility] Work Phone: Neutrophils (Bld) [#/Vol] 9.1 10*3/uL 2.0-7.7 [facility] Work Phone: Neutrophils/100 WBC (Bld) 76.0 % 47-70 [facility] Work Phone: WBC (Bld) [#/Vol] 11.9 10*3/uL 4.4-11.0 [facility] Work Phone: Blood erythrocytes count (nu mber/volume)on 02-12-2022 RBC (Bld) [#/Vol] 4.22 10*6/uL 4.2-5.4 [facility] Work Phone: Blood hemoglobin measurement (mass/volume)on 02-12-2022 Hemoglobin (Bld) [Mass/Vol] 12.5 g/dL 12.0-15.0 [facility] Work Phone: Blood lymphocytes/100 leukoc yteson 02-12-2022 Lymphocytes/100 WBC (Bld) 15.7 % 19-41 [facility] Work Phone: Blood monocytes/100 leukocyt eson 02-12-2022 Monocytes/100 WBC (Bld) 5.2 % 0-10 [facility] Work Phone: [phone] Blood platelet mean volumeon 02-12-2022 Platelet mean volume (Bld) [Entitic vol] 9.9 fL 6.2-12.0 [facility] Work Phone: [phone] Determination of erythrocyte mean corpuscular volume (MCV)on 02-12-2022 MCV (RBC) [Entitic vol] 91.2 fL 81-99 [facility] Work Phone: [phone] Hematocrit Auto (Bld) [Volum e fraction]on 02-12-2022 Hematocrit (Bld) [Volume fraction] 38.5 % 37-47 [facility] Work Phone: Laboratory - Hematology and Cell countson 02-12-2022 Erythrocyte distribution width (RBC) [Entitic vol] 43.9 fL 35.1-43.9 [facility] Work Phone: [phone] Erythrocyte distribution width (RBC) [Ratio] 13.1 % 11.6-14.6 [facility] Work Phone: [phone] Immature granulocytes/100 WBC (Bld) 0.500 % 0.0-0.9 [facility] Work Phone: Comment on above: IG% - Immature Granu locytes (promyelocytes, myelocytes and metamyelocytes) > 1% indicates that a LEFT SHIFT is Present. MCH (RBC) [Entitic mass] 29.6 pg 27.0-32.0 [facility] Work Phone: Nucleated RBC/100 WBC (Bld) [Ratio] 0 % 0-5 [facility] Work Phone: [phone] MCHC Auto (RBC) [Mass/Vol]on 02-12-2022 MCHC (RBC) [Mass/Vol] 32.5 g/dL 32-36 [facility] Work Phone: No Panel Informationon 02-12 Thyroid Stimulating Hormone (TSH) 0.66 uIU/mL 0.358-3.74 [facility] Work Phone: Platelets bldon 02-12-2022 Platelets (Bld) [#/Vol] 221 10*3/uL 150-450 [facility] Work Phone: Whole blood hemoglobin A1c/t otal hemoglobin ratio (mass fraction)on 02-12-2022 HbA1c (Bld) [Mass fraction] 4.7 % 3.8-5.6 [facility] Work Phone: Comment on above: Normal < 5.7 % Predi abetic 5.7 - 6.4 % Diabetic >or= 6.5 % Please note range changes. Absolute lymphocyte counton 02-11-2022 Lymphocytes Auto (Unsp spec) [#/Vol] 1.72 10*3/uL 0.83-4.51 [facility] Work Phone: Basophil percentageon 2021 Basophil percentage 0-5 SEEN /hpf 0-5 [facility] Work Phone: Basophils/100 WBC (Bld) 0.3 % 0-1 [facility] Work Phone: Bilirubin [Mass/Vol] 0.30 mg/dL 0.20-1.00 [facility] Work Phone: Comment on above: For patients on eltr ombopag therapy, use of Dimension [place] TBIL is not recommended. Chloride [Moles/Vol] 106 mmol/L 98-107 [facility] Work Phone: Eosinophils/100 WBC (Bld) 1.5 % 0-5 [facility] Work Phone: Glucose [Mass/Vol] 104 mg/dL 74-106 [facility] Work Phone: Comment on above: Fasting Glucose resu lt from 100 to 125 mg/dL suggests IMPAIRED HOMEOSTASIS per A.D.A. criteria. Lactate [Moles/Vol] 0.7 mmol/L 0.4-2.0 [facility] Work Phone: Neutrophils (Bld) [#/Vol] 12.0 10*3/uL 2.0-7.7 [facility] Work Phone: Neutrophils/100 WBC (Bld) 81.5 % 47-70 [facility] Work Phone: Potassium [Moles/Vol] 3.6 mmol/L 3.5-5.1 [facility]: Protein [Mass/Vol] 6.9 g/dL 6.4-8.2 [facility] Work Phone: Sodium [Moles/Vol] 135 mmol/L 136-145 [facility] Work Phone: WBC (Bld) [#/Vol] 14.8 10*3/uL 4.4-11.0 [facility] Work Phone: Bilirubin Test strip Ql (U)o n 02-11-2022 Bilirubin Ql (U) Negative Negative [facility] Work Phone: Blood erythrocytes count (nu mber/volume)on 02-11-2022 RBC (Bld) [#/Vol] 3.97 10*6/uL 4.2-5.4 [facility] Work Phone: Blood hemoglobin measurement (mass/volume)on 02-11-2022 Hemoglobin (Bld) [Mass/Vol] 12.0 g/dL 12.0-15.0 [facility] Work Phone: Blood lymphocytes/100 leukoc yteson 02-11-2022 Lymphocytes/100 WBC (Bld) 11.6 % 19-41 [facility] Work Phone: Blood monocytes/100 leukocyt eson 02-11-2022 Monocytes/100 WBC (Bld) 4.7 % 0-10 [facility] Work Phone: Blood platelet mean volumeon 02-11-2022 Platelet mean volume (Bld) [Entitic vol] 10.2 fL 6.2-12.0 [facility] Work Phone: Determination of erythrocyte mean corpuscular volume (MCV)on 02-11-2022 MCV (RBC) [Entitic vol] 89.9 fL 81-99 [facility] Work Phone: [phone] Hematocrit Auto (Bld) [Volum e fraction]on 02-11-2022 Hematocrit (Bld) [Volume fraction] 35.7 % 37-47 [facility] Work Phone: [phone] Ketones Test strip Ql (U)on 02-11-2022 Ketones Ql (U) 15 mg/dl Negative [facility] Work Phone: [phone] Laboratory - Chemistry and C hemistry - challengeon 02-11-2022 ALP [Catalytic activity/Vol] 64 U/L 45-117 [facility] Work Phone: [phone] ALT [Catalytic activity/Vol] 18 U/L 13-56 [facility] Work Phone: [phone] CO2 [Moles/Vol] 22.0 mmol/L 21.0-32.0 [facility] Work Phone: [phone] Globulin (S) [Mass/Vol] 4.2 g/dL 2.2-4.2 [facility] Work Phone: [phone] Urea nitrogen/Creatinine [Mass ratio] 16.8 mg/mg 10-20 [facility] Work Phone: [phone] Laboratory - Coagulationon 0 02-11-2022 aPTT Coag (Bld) [Time] 32.1 s 24.1-36.2 [facility] Work Phone: [phone] Laboratory - Hematology and Cell countson 02-11-2022 Erythrocyte distribution width (RBC) [Entitic vol] 43.2 fL 35.1-43.9 [facility] Work Phone: [phone] Erythrocyte distribution width (RBC) [Ratio] 13.1 % 11.6-14.6 [facility] Work Phone: [phone] Immature granulocytes/100 WBC (Bld) 0.400 % 0.0-0.9 [facility] Work Phone: Comment on above: IG% - Immature Granu locytes (promyelocytes, myelocytes and metamyelocytes) > 1% indicates that a LEFT SHIFT is Present. MCH (RBC) [Entitic mass] 30.2 pg 27.0-32.0 [facility] Work Phone: Nucleated RBC/100 WBC (Bld) [Ratio] 0 % 0-5 [facility] Work Phone: MCHC Auto (RBC) [Mass/Vol]on 02-11-2022 MCHC (RBC) [Mass/Vol] 33.6 g/dL 32-36 [facility] Work Phone: Mucus LM Ql (Urine sed)on Mucus Ql (Urine sed) 0 SEEN /hpf [facility] Work Phone: Nitrite Test strip Ql (U)on 02-11-2022 Nitrite Ql (U) Negative Negative [facility] Work Phone: No Panel Informationon 02-11 Estimated Creatinine Clearance Calc 136.61 ml/min [facility] Work Phone: [phone] Estimated GFR (MDRD) Amer 192 mL/min >60 [facility] Work Phone: Comment on above: GFR Calc Estimated GFR (MDRD) Non-Af Amer 159 mL/min >60 [facility] Work Phone: Comment on above: Non- GFR Calc Platelets bldon 02-11-2022 Platelets (Bld) [#/Vol] 209 10*3/uL 150-450 [facility] Work Phone: Protein Test strip Ql (U)on 02-11-2022 Protein Ql (U) Negative Negative [facility] Work Phone: [phone] Serum or plasma albumin jazmin urement (mass/volume)on 02-11-2022 Albumin [Mass/Vol] 2.7 g/dL 3.2-5.0 [facility] Work Phone: [phone] Serum or plasma albumin/glob ulin mass ratioon 02-11-2022 Albumin/Globulin [Mass ratio] 0.6 {ratio} 0.9-2.4 [facility] Work Phone: Serum or plasma calcium jazmin urement (mass/volume)on 02-11-2022 Calcium [Mass/Vol] 9.0 mg/dL 8.5-10.1 [facility] Work Phone: Serum or plasma creatinine m easurement (mass/volume)on 02-11-2022 Creatinine [Mass/Vol] 0.48 mg/dL 0.55-1.02 [facility] Work Phone: Comment on above: The validity of the calculated GFR & GFRAA in patients over 70 years has not been determined. Clinical correlation is essential. Serum or plasma urea nitroge n measurement (mass/volume)on 02-11-2022 Urea nitrogen [Mass/Vol] 8 mg/dL 7-18 [facility] Work Phone: Squamous epithelial cells de tection in urine sediment by light microscopyon 02-11-2022 Epithelial cells.squamous LM Ql (Urine sed) 5-10 SEEN /hpf 5-10 [facility] Work Phone: Thin prep Papanicolaou smear with manual screeningon 02-11-2022 Thin prep Papanicolaou smear with manual screening 18 U/L 15-37 [facility] Work Phone: Thin prep Papanicolaou smear with manual screening 7 5-15 [facility] Work Phone: Urine blood detectionon 01-31 RBC Ql (U) Negative Negative [facility] Work Phone: RBC Ql (U) 0 SEEN /hpf 0-5 [facility] Work Phone: Urine clarityon 02-11-2022 Clarity (U) Sl. Cloudy Clear [facility] Work Phone: Urine color determinationon 02-11-2022 Color (U) Yellow Yellow [facility] Work Phone: Urine glucose detectionon Glucose Ql (U) Normal mg/dl Normal [facility] Work Phone: Urine leukocyte esterase det ection by dipstickon 02-11-2022 Leukocyte esterase Test strip Ql (U) 25 /ul Negative [facility] Work Phone: Urine pHon 02-11-2022 pH (U) 7.0 [pH] 5.0 - 8.0 [facility] Work Phone: Urine sediment bacteria coun t by microscopy (number/high power field)on 02-11-2022 Bacteria LM.HPF (Urine sed) [#/Area] 1 /[HPF] None Seen [facility] Work Phone: Urine specific gravity measu rementon 02-11-2022 Specific gravity (U) [Rel density] 1.010 1.002-1.030 [facility] Work Phone: Urobilinogen Auto test strip Ql (U)on 02-11-2022 Urobilinogen Ql (U) Normal mg/dl Normal [facility] Work Phone: Laboratory - Chemistry and C hemistry - challengeon 02-10-2022 Glucose Ql (U) Negative [facility] Work Phone: Laboratory - Urinalysison Protein Ql (U) Negative [facility] Work Phone: Laboratory - Chemistry and C hemistry - challengeon 01-27-2022 Glucose Ql (U) Negative [facility] Work Phone: Laboratory - Urinalysison Protein Ql (U) Negative [facility] Work Phone: Laboratory - Chemistry and C hemistry - challengeon 01-14-2022 Glucose Ql (U) Negative [facility] Work Phone: Laboratory - Urinalysison Protein Ql (U) Negative [facility] Work Phone: No Panel Informationon 01-14 Miscellaneous Test Comment MAILED SPECIMEN [facility] Work Phone: Absolute lymphocyte counton 01-07-2022 Lymphocytes Auto (Unsp spec) [#/Vol] 2.23 10*3/uL 0.83-4.51 [facility] Work Phone: Basophil percentageon 2021 Basophil percentage 0-5 SEEN /hpf [facility] Work Phone: Basophils/100 WBC (Bld) 0.3 % 0-1 [facility] Work Phone: Chloride [Moles/Vol] 109 mmol/L 98-107 [facility]: Eosinophils/100 WBC (Bld) 1.0 % 0-5 [facility] Work [phone] Glucose [Mass/Vol] 86 mg/dL 74-106 [facility] Work Phone: Neutrophils (Bld) [#/Vol] 8.7 10*3/uL 2.0-7.7 [facility] Work Phone: Neutrophils/100 WBC (Bld) 73.4 % 47-70 [facility] Work Phone: Potassium [Moles/Vol] 4.1 mmol/L 3.5-5.1 [facility] Work Phone: Comment on above: Slight Hemolysis, Re sult may be falsely increased. Sodium [Moles/Vol] 135 mmol/L 136-145 [facility] Work Phone: WBC (Bld) [#/Vol] 11.9 10*3/uL 4.4-11.0 [facility] Work Phone: Bilirubin Test strip Ql (U)o n 01-07-2022 Bilirubin Ql (U) Negative Negative [facility] Work Phone: Blood erythrocytes count (nu mber/volume)on 01-07-2022 RBC (Bld) [#/Vol] 4.22 10*6/uL 4.2-5.4 [facility] Work Phone: Blood hemoglobin measurement (mass/volume)on 01-07-2022 Hemoglobin (Bld) [Mass/Vol] 12.8 g/dL 12.0-15.0 [facility] Work Phone: Blood lymphocytes/100 leukoc yteson 01-07-2022 Lymphocytes/100 WBC (Bld) 18.8 % 19-41 [facility] Work Phone: Blood monocytes/100 leukocyt eson 01-07-2022 Monocytes/100 WBC (Bld) 6.1 % 0-10 [facility] Work Phone: Blood platelet mean volumeon 01-07-2022 Platelet mean volume (Bld) [Entitic vol] 10.1 fL 6.2-12.0 [facility] Work Phone: Determination of erythrocyte mean corpuscular volume (MCV)on 01-07-2022 MCV (RBC) [Entitic vol] 88.9 fL 81-99 [facility] Work Phone: [phone] Hematocrit Auto (Bld) [Volum e fraction]on 01-07-2022 Hematocrit (Bld) [Volume fraction] 37.5 % 37-47 [facility] Work Phone: Ketones Test strip Ql (U)on 01-07-2022 Ketones Ql (U) Negative Negative [facility] Work Phone: Laboratory - Chemistry and C hemistry - challengeon 01-07-2022 CO2 [Moles/Vol] 21.0 mmol/L 21.0-32.0 [facility] Work Phone: Urea nitrogen/Creatinine [Mass ratio] 19.6 mg/mg 10-20 [facility] Work Phone: Laboratory - Hematology and Cell countson 01-07-2022 Erythrocyte distribution width (RBC) [Entitic vol] 42.8 fL 35.1-43.9 [facility] Work Phone: [phone] Erythrocyte distribution width (RBC) [Ratio] 13.1 % 11.6-14.6 [facility] Work Phone: [phone] Immature granulocytes/100 WBC (Bld) 0.400 % 0.0-0.9 [facility] Work Phone: Comment on above: IG% - Immature Granu locytes (promyelocytes, myelocytes and metamyelocytes) > 1% indicates that a LEFT SHIFT is Present. MCH (RBC) [Entitic mass] 30.3 pg 27.0-32.0 [facility] Work Phone: Nucleated RBC/100 WBC (Bld) [Ratio] 0 % 0-5 [facility] Work Phone: [phone] MCHC Auto (RBC) [Mass/Vol]on 01-07-2022 MCHC (RBC) [Mass/Vol] 34.1 g/dL 32-36 [facility] Work Phone: [phone] Mucus LM Ql (Urine sed)on Mucus Ql (Urine sed) 0 SEEN /hpf [facility] Work Phone: [phone] Nitrite Test strip Ql (U)on 01-07-2022 Nitrite Ql (U) Negative Negative [facility] Work Phone: No Panel Informationon 01-07 Estimated Creatinine Clearance Calc 128.57 ml/min [facility] Work Phone: [phone] Estimated GFR (MDRD) Amer 178 mL/min >60 [facility] Work Phone: Comment on above: GFR Calc Estimated GFR (MDRD) Non-Af Amer 147 mL/min >60 [facility] Work Phone: Comment on above: Non- GFR Calc Platelets bldon 01-07-2022 Platelets (Bld) [#/Vol] 263 10*3/uL 150-450 [facility] Work Phone: [phone] Protein Test strip Ql (U)on 01-07-2022 Protein Ql (U) Negative Negative [facility] Work Phone: [phone] Serum or plasma calcium jazmin urement (mass/volume)on 01-07-2022 Calcium [Mass/Vol] 9.2 mg/dL 8.5-10.1 [facility] Work Phone: [phone] Serum or plasma creatinine m easurement (mass/volume)on 01-07-2022 Creatinine [Mass/Vol] 0.51 mg/dL 0.55-1.02 [facility] Work Phone: Comment on above: The validity of the calculated GFR & GFRAA in patients over 70 years has not been determined. Clinical correlation is essential. Serum or plasma urea nitroge n measurement (mass/volume)on 01-07-2022 Urea nitrogen [Mass/Vol] 10 mg/dL 7-18 [facility] Work Phone: Squamous epithelial cells de tection in urine sediment by light microscopyon 01-07-2022 Epithelial cells.squamous LM Ql (Urine sed) 5-10 SEEN /hpf [facility] Work Phone: Thin prep Papanicolaou smear with manual screeningon 01-07-2022 Thin prep Papanicolaou smear with manual screening 5 5-15 [facility] Work Phone: Urine blood detectionon 04-0 RBC Ql (U) Negative Negative [facility] Work Phone: RBC Ql (U) 0 SEEN /hpf [facility] Work Phone: Urine clarityon 01-07-2022 Clarity (U) Sl. Cloudy Clear [facility] Work Phone: Urine color determinationon 01-07-2022 Color (U) Yellow Yellow [facility] Work Phone: Urine glucose detectionon Glucose Ql (U) Normal mg/dl Normal [facility] Work Phone: Urine leukocyte esterase det ection by dipstickon 01-07-2022 Leukocyte esterase Test strip Ql (U) Negative Negative [facility] Work Phone: Urine pHon 01-07-2022 pH (U) 8.0 [pH] [facility] Work Phone: Urine sediment bacteria coun t by microscopy (number/high power field)on 01-07-2022 Bacteria LM.HPF (Urine sed) [#/Area] 1 /[HPF] None Seen [facility] Work Phone: Urine specific gravity measu rementon 01-07-2022 Specific gravity (U) [Rel density] 1.010 [facility] Work Phone: Urobilinogen Auto test strip Ql (U)on 01-07-2022 Urobilinogen Ql (U) Normal mg/dl Normal [facility] Work Phone: [phone] Absolute lymphocyte counton 01-04-2022 Lymphocytes Auto (Unsp spec) [#/Vol] 1.44 10*3/uL 0.83-4.51 [facility] Work Phone: Basophil percentageon 2021 Basophil percentage 2.1 mg/dL 2.5-4.9 [facility] Work Phone: Basophils/100 WBC (Bld) 0.3 % 0-1 [facility] Work Phone: Bilirubin [Mass/Vol] 0.20 mg/dL 0.20-1.00 [facility] Work Phone: Comment on above: For patients on eltr ombopag therapy, use of Dimension [place] TBIL is not recommended. Chloride [Moles/Vol] 106 mmol/L 98-107 [facility] Work Phone: Eosinophils/100 WBC (Bld) 0.6 % 0-5 [facility] Work Phone: Glucose [Mass/Vol] 185 mg/dL 74-106 [facility] Work Phone: Comment on above: Fasting Glucose resu lt greater than or equal to 126 mg/dL suggests DIABETES MELLITUS per A.D.A. criteria. Neutrophils (Bld) [#/Vol] 8.5 10*3/uL 2.0-7.7 [facility] Work Phone: Neutrophils/100 WBC (Bld) 81.1 % 47-70 [facility] Work [phone] Potassium [Moles/Vol] 3.3 mmol/L 3.5-5.1 [facility] Work Phone: Protein [Mass/Vol] 6.5 g/dL 6.4-8.2 [facility] Work Phone: Sodium [Moles/Vol] 135 mmol/L 136-145 [facility] Work Phone: [phone] WBC (Bld) [#/Vol] 10.5 10*3/uL 4.4-11.0 [facility] Work Phone: Blood erythrocytes count (nu mber/volume)on 01-04-2022 RBC (Bld) [#/Vol] 3.79 10*6/uL 4.2-5.4 [facility] Work Phone: Blood hemoglobin measurement (mass/volume)on 01-04-2022 Hemoglobin (Bld) [Mass/Vol] 11.3 g/dL 12.0-15.0 [facility] Work Phone: [phone] Blood lymphocytes/100 leukoc yteson 01-04-2022 Lymphocytes/100 WBC (Bld) 13.7 % 19-41 [facility] Work Phone: [phone] Blood monocytes/100 leukocyt eson 01-04-2022 Monocytes/100 WBC (Bld) 3.9 % 0-10 [facility] Work Phone: [phone] Blood platelet mean volumeon 01-04-2022 Platelet mean volume (Bld) [Entitic vol] 9.9 fL 6.2-12.0 [facility] Work Phone: Chlamydia trachomatis rRNA d etection by probe and target amplification methodon 01-04-2022 C. trachomatis rRNA FRANCESCO+probe Ql (Unsp spec) Negative Negative [facility] Work Phone: [phone] Culture, urineon 01-04-2022 Bacteria identified Cx Nom (U) Positive [facility] Work Phone: [phone] Determination of erythrocyte mean corpuscular volume (MCV)on 01-04-2022 MCV (RBC) [Entitic vol] 90.0 fL 81-99 [facility] Work Phone: HIV 1 and HIV-2 antibody ass ay with HIV-1 p24 antigen detectionon 01-04-2022 HIV 1+2 Ab+HIV1 p24 Ag IA Ql Non-Reactive Nonreactive [facility] Work Phone: Hematocrit Auto (Bld) [Volum e fraction]on 01-04-2022 Hematocrit (Bld) [Volume fraction] 34.1 % 37-47 [facility] Work Phone: Laboratory - Chemistry and C hemistry - challengeon 01-04-2022 ALP [Catalytic activity/Vol] 51 U/L 45-117 [facility] Work Phone: [phone] ALT [Catalytic activity/Vol] 44 U/L 13-56 [facility] Work Phone: [phone] CO2 [Moles/Vol] 22.0 mmol/L 21.0-32.0 [facility] Work Phone: [phone] Globulin (S) [Mass/Vol] 3.7 g/dL 2.2-4.2 [facility] Work Phone: [phone] Magnesium [Mass/Vol] 1.8 mg/dL 1.6-2.6 [facility] Work Phone: [phone] Urea nitrogen/Creatinine [Mass ratio] 19.4 mg/mg 10-20 [facility] Work Phone: [phone] Laboratory - Drug toxicology on 01-04-2022 Amphetamines Ql (U) Negative [facility] Work Phone: [phone] Benzodiazepines Ql (U) Negative [facility] Work Phone: [phone] Cannabinoids Screen Ql (U) Positive [facility] Work Phone: [phone] Cocaine Ql (U) Negative [facility] Work Phone: [phone] Opiates Ql (U) Negative [facility] Work Phone: [phone] Laboratory - Hematology and Cell countson 01-04-2022 Erythrocyte distribution width (RBC) [Entitic vol] 44.2 fL 35.1-43.9 [facility] Work Phone: [phone] Erythrocyte distribution width (RBC) [Ratio] 13.3 % 11.6-14.6 [facility] Work Phone: [phone] Immature granulocytes/100 WBC (Bld) 0.400 % 0.0-0.9 [facility] Work Phone: [phone] Comment on above: IG% - Immature Granu locytes (promyelocytes, myelocytes and metamyelocytes) > 1% indicates that a LEFT SHIFT is Present. MCH (RBC) [Entitic mass] 29.8 pg 27.0-32.0 [facility] Work Phone: [phone] Nucleated RBC/100 WBC (Bld) [Ratio] 0 % 0-5 [facility] Work Phone: [phone] Laboratory - Microbiology an d Antimicrobial susceptibilityon 01-04-2022 N. gonorrhoeae DNA FRANCESCO+probe Ql (Unsp spec) Negative Negative [facility] Work Phone: [phone] Comment on above: Performed at: =[address] [id number] Director: Jaylin Sandoval MD, Phone: [phone] MCHC Auto (RBC) [Mass/Vol]on 01-04-2022 MCHC (RBC) [Mass/Vol] 33.1 g/dL 32-36 [facility] Work Phone: No Panel Informationon 01-04 MDMA (Ecstasy) Screen Negative [facility] Work Phone: [phone] Urine Barbiturates Screen Negative [facility] Work Phone: [phone] Urine Drug Screen Comment [facility] Work Phone: [phone] Comment on above: CONFIRMATORY TESTING FOR ALL [...] USE TESTMNEMONIC: [facility] Urine Methadone Screen Negative [facility] Work Phone: [phone] Estimated Creatinine Clearance Calc 115.04 ml/min [facility] Work Phone: [phone] Estimated GFR (MDRD) Amer 157 mL/min >60 [facility] Work Phone: [phone] Comment on above: GFR Calc Estimated GFR (MDRD) Non-Af Amer 129 mL/min >60 [facility] Work Phone: [phone] Comment on above: Non- GFR Calc Hepatitis B Surface Antigen Non-Reactive Nonreactive [facility] Work Phone: [phone] Hepatitis C Antibody Non-Reactive Nonreactive [facility] Work Phone: [phone] Comment on above: Non Reactive: < 0.8 Equivocal: >/= 0.8 to < 1.0 Reactive: >/= 1.0The CDC recommends that a reactive/equivocal HCV antibody result be followed up by the HCV Nucleic Acid Amplificationtest (212830) Rubella IgG Antibody Reactive Nonreactive [facility] Work Phone: [phone] Comment on above: Antibody Results Int erpretation of Immune Status Non Reactive Presumed Non-Immune Equivocal Equivocal Reactive Presumed Immune Platelets bldon 01-04-2022 Platelets (Bld) [#/Vol] 216 10*3/uL 150-450 [facility] Work Phone: [phone] Treponema species anti body detectionon 01-04-2022 Treponema sp Ab Ql (S) Non-Reactive [facility] Work Phone: [phone] Serum or plasma albumin jazmin urement (mass/volume)on 01-04-2022 Albumin [Mass/Vol] 2.8 g/dL 3.2-5.0 [facility] Work Phone: [phone] Serum or plasma albumin/glob ulin mass ratioon 01-04-2022 Albumin/Globulin [Mass ratio] 0.8 {ratio} 0.9-2.4 [facility] Work Phone: [phone] Serum or plasma calcium jazmin urement (mass/volume)on 01-04-2022 Calcium [Mass/Vol] 8.8 mg/dL 8.5-10.1 [facility] Work Phone: [phone] Serum or plasma creatinine m easurement (mass/volume)on 01-04-2022 Creatinine [Mass/Vol] 0.57 mg/dL 0.55-1.02 [facility] Work Phone: Comment on above: The validity of the calculated GFR & GFRAA in patients over 70 years has not been determined. Clinical correlation is essential. Serum or plasma urea nitroge n measurement (mass/volume)on 01-04-2022 Urea nitrogen [Mass/Vol] 11 mg/dL 7-18 [facility] Work Phone: Thin prep Papanicolaou smear with manual screeningon 01-04-2022 Thin prep Papanicolaou smear with manual screening 22 U/L 15-37 [facility] Work Phone: Thin prep Papanicolaou smear with manual screening 7 5-15 [facility] Work Phone: Urine phencyclidine (PCP) de tectionon 01-04-2022 Phencyclidine Ql (U) Negative [facility] Work Phone: LABORATORYOrdered By: Emily Uribe [...] HCG ( test) Ql 2864 mIU/mL <4 [facility] Work Phone: Comment on above: hCG levels with Gest ational AgeGestational Age hCG mIU/mL (IU/L)0.2 - 1 week 5 - 501-2 weeks 50 - 5002-3 weeks 100 - 73086-5 weeks 500 - 186276-8 weeks 1000 - 832838-0 weeks 18004 - 100,0006-8 weeks 28026 - 200,0002-3 months 95045 - 100,000 Serum or plasma choriogonado tropin detectionon 12-07-2021 HCG ( test) Ql 447 mIU/mL <4 [facility] Work Phone: Comment on above: hCG levels with Gest ational AgeGestational Age hCG mIU/mL (IU/L)0.2 - 1 week 5 - 501-2 weeks 50 - 5002-3 weeks 100 - 48363-6 weeks 500 - 059970-8 weeks 1000 - 143170-8 weeks 33000 - 100,0006-8 weeks 85036 - 200,0002-3 months 60359 - 100,000 Serum or plasma choriogonado tropin detectionon 12-05-2021 HCG ( test) Ql 200 mIU/mL <4 [facility] Work Phone: Comment on above: hCG levels with Gest ational AgeGestational Age hCG mIU/mL (IU/L)0.2 - 1 week 5 - 501-2 weeks 50 - 5002-3 weeks 100 - 95909-5 weeks 500 - 269872-1 weeks 1000 - 578924-9 weeks 54014 - 100,0006-8 weeks 84991 - 200,0002-3 months 95072 - 100,000 Absolute lymphocyte counton 10-07-2021 Lymphocytes Auto (Unsp spec) [#/Vol] 2.84 10*3/uL 0.83-4.51 [facility] Work Phone: Basophil percentageon 2021 Basophils/100 WBC (Bld) 0.4 % 0-1 [facility] Work Phone: Chloride [Moles/Vol] 109 mmol/L 98-107 [facility] Work Phone: [phone] Eosinophils/100 WBC (Bld) 1.3 % 0-5 [facility] Work Phone: Glucose [Mass/Vol] 87 mg/dL 74-106 [facility] Work Phone: Comment on above: Please note revised GLUCOSE reference range effective 2017. Neutrophils (Bld) [#/Vol] 5.5 10*3/uL 2.0-7.7 [facility] Work Phone: Neutrophils/100 WBC (Bld) 60.2 % 47-70 [facility] Work Phone: Potassium [Moles/Vol] 3.8 mmol/L 3.5-5.1 [facility] Work Phone: Sodium [Moles/Vol] 140 mmol/L 136-145 [facility] Work Phone: WBC (Bld) [#/Vol] 9.1 10*3/uL 4.4-11.0 [facility] Work Phone: Blood erythrocytes count (nu mber/volume)on 10-07-2021 RBC (Bld) [#/Vol] 4.70 10*6/uL 4.2-5.4 [facility] Work Phone: Blood hemoglobin measurement (mass/volume)on 10-07-2021 Hemoglobin (Bld) [Mass/Vol] 13.8 g/dL 12.0-15.0 [facility] Work Phone: Blood lymphocytes/100 leukoc yteson 10-07-2021 Lymphocytes/100 WBC (Bld) 31.3 % 19-41 [facility] Work Phone: [phone] Blood monocytes/100 leukocyt eson 10-07-2021 Monocytes/100 WBC (Bld) 6.5 % 0-10 [facility] Work Phone: Blood platelet mean volumeon 10-07-2021 Platelet mean volume (Bld) [Entitic vol] 10.3 fL 6.2-12.0 [facility] Work Phone: Determination of erythrocyte mean corpuscular volume (MCV)on 10-07-2021 MCV (RBC) [Entitic vol] 89.1 fL 81-99 [facility] Work Phone: Hematocrit Auto (Bld) [Volum e fraction]on 10-07-2021 Hematocrit (Bld) [Volume fraction] 41.9 % 37-47 [facility] Work Phone: Laboratory - Chemistry and C hemistry - challengeon 10-07-2021 CO2 [Moles/Vol] 24.0 mmol/L 21.0-32.0 [facility] Work Phone: Urea nitrogen/Creatinine [Mass ratio] 25.3 mg/mg 10-20 [facility] Work Phone: [phone] Laboratory - Hematology and Cell countson 10-07-2021 Erythrocyte distribution width (RBC) [Entitic vol] 43.4 fL 35.1-43.9 [facility] Work Phone: [phone] Erythrocyte distribution width (RBC) [Ratio] 13.2 % 11.6-14.6 [facility] Work Phone: [phone] Immature granulocytes/100 WBC (Bld) 0.300 % 0.0-0.9 [facility] Work Phone: Comment on above: IG% - Immature Granu locytes (promyelocytes, myelocytes and metamyelocytes) > 1% indicates that a LEFT SHIFT is Present. MCH (RBC) [Entitic mass] 29.4 pg 27.0-32.0 [facility] Work Phone: Nucleated RBC/100 WBC (Bld) [Ratio] 0 % 0-5 [facility] Work Phone: [phone] MCHC Auto (RBC) [Mass/Vol]on 10-07-2021 MCHC (RBC) [Mass/Vol] 32.9 g/dL 32-36 [facility] Work Phone: No Panel Informationon 10-07 D-Dimer Quantitative (PE/DVT) 0.38 FEU/ug/m 0.27-0.49 [facility] Work Phone: Comment on above: NORMAL D-Dimer level (<0.50) indicates no DVT or PE. Estimated Creatinine Clearance Calc 105.07 ml/min [facility] Work Phone: Estimated GFR (MDRD) Amer 138 mL/min >60 [facility] Work Phone: [phone] Comment on above: GFR Calc Estimated GFR (MDRD) Non-Af Amer 114 mL/min >60 [facility] Work Phone: [phone] Comment on above: Non- GFR Calc Troponin I High Sensitivity 4 pg/mL 3.0-54.0 [facility] Work Phone: Comment on above: Please Note: New Faviola t Units and Gender Specific Reference Ranges. For more information see Policy Stat Procedure [place] High Sensitivity Troponin (TNIH) and attachments. Platelets bldon 10-07-2021 Platelets (Bld) [#/Vol] 306 10*3/uL 150-450 [facility] Work Phone: [phone] Serum or plasma calcium jazmin urement (mass/volume)on 10-07-2021 Calcium [Mass/Vol] 9.3 mg/dL 8.5-10.1 [facility] Work Phone: Serum or plasma creatinine m easurement (mass/volume)on 10-07-2021 Creatinine [Mass/Vol] 0.63 mg/dL 0.55-1.02 [facility] Work Phone: Comment on above: The validity of the calculated GFR & GFRAA in patients over 70 years has not been determined. Clinical correlation is essential. Serum or plasma urea nitroge n measurement (mass/volume)on 10-07-2021 Urea nitrogen [Mass/Vol] 16 mg/dL 04-19 [facility] Work Phone: Thin prep Papanicolaou smear with manual screeningon 10-07-2021 Thin prep Papanicolaou smear with manual screening 02-14 [facility] Work Phone: XR Lumbar spine 3 Viewson IMPRESSION: Degenerative changes as described. Transcribing Machine Mechanic: SAVITA Transcribe Date/Time: Jul 20 2021 10:04A Dictated by : YVONNE COLINDRES MD This examination was interpreted and the report reviewed and electronically signed by: YVONNE COLINDRES MD on Jul 20 2021 10:07AM [facility] DIVISION OF RADIOLOGY * * *Final Report* [...] L4 on L5. DIVISION OF RADIOLOGY Provider, [facility] Jul[facility] - 07/20/2021 * * *Final Report* [...] L5. IMPRESSION IMPRESSION: Degenerative changes as described. Transcribing Machine Mechanic: SAVITA Transcribe Date/Time: Jul 20 2021 10:04A Dictated by : YVONNE COLINDRES MD This examination was interpreted and the report reviewed and electronically signed by: YVONNE COLINDRES MD on Jul 20 2021 10:07AM EST [facility] Radiology Study observation (narrative) [facility] XR Lumbar spine 3 ViewsOrder ed By: [facility] Provider on 07-20-2021 [facility] Troponin Ion 07-11-2021 Troponin I.cardiac [Mass/Vol] 0.012 ng/mL Normal 0.000-0.034 [facility] [employer] [facility] Comment on above: Order Comment: CHEMI STRY SPECIMEN MODERATELY HEMOLYZED. INTERPRET RESULTS WITH CAUTION. Result Comment: . Performed By: #### H EMOG, TROPN, LIPA4, CMP3, QWAL2 #### [email or web address] [address] [place] [address] hCG Qual [place] 07-11-2021 hCG Qual Preg Negative Normal [facility] Comment on above: Order Comment: CHEMI STRY SPECIMEN MODERATELY HEMOLYZED. INTERPRET RESULTS WITH CAUTION. Result Comment: Refe rence Range: NEGATIVE Effective 12/14/2019, the reference interval for the qualitative test has been updated. This test detects hCG at concentrations of 10 mIU/L or greater in serum. Performed By: #### H EMOG, TROPN, LIPA4, CMP3, QWAL2 #### [employer] [facility] [address] [place] [address] CBCOrdered By: Nicolás maloney on 07-10-2021 Hematocrit (Bld) [Volume fraction] 39.8 % 35.0 - 47.0 % [employer] Work Phone: Hemoglobin.gastrointes tinal spec 1 Ql (Stl) 13.1 g/dL 11.7 - 16.0 g/dL [employer] Work Phone: MCH (RBC) [Entitic mass] 29.9 pg 26.0 - 34.0 pg [facility] Work Phone: MCHC (RBC) [Mass/Vol] 33.0 % 32.0 - 36.0 % [facility] Work Phone: MCV (RBC) [Entitic vol] 90.8 fL 79.0 - 98.0 fL [employer] Work Phone: Platelet distribution width (Bld) [Ratio] 13.7 % 11.5 - 14.5 % [employer] Work Phone: Platelet mean volume (Bld) [Entitic vol] 8.6 fL 7.4 - 10.4 fL [employer] Work Phone: Platelets (Bld) [#/Vol] 220 10*3/uL 140 - 440 10*3/uL [employer] Work Phone: RBC (Bld) [#/Vol] 4.38 10*6/uL 3.80 - 5.2 0 10*6/uL [employer] Work Phone: WBC (Bld) [#/Vol] 8.2 10*3/uL 3.6 - 10.7 10*3/uL [employer] Work Phone: Comp Metabolic Panelon 07-10 ALT [Catalytic activity/Vol] 31 U/L Normal 0-34 [facility] Comment on above: Order Comment: CHEMI STRY SPECIMEN MODERATELY HEMOLYZED. INTERPRET RESULTS WITH CAUTION. Result Comment: The ALT test is performed by an updated assay method. Please note that the reference intervals have been changed and are now sex specific. Performed By: #### H EMOG, TROPN, LIPA4, CMP3, QWAL2 #### [facility] [address] [place] [address] Calcium [Mass/Vol] 9.2 mg/dL Normal 8.4-10.4 [facility] Comment on above: Order Comment: CHEMI STRY SPECIMEN MODERATELY HEMOLYZED. INTERPRET RESULTS WITH CAUTION. Performed By: #### H EMOG, TROPN, LIPA4, CMP3, QWAL2 #### [facility] [address] [place] [address] Glucose [Mass/Vol] 79 mg/dL Normal 70-100 [facility] Comment on above: Order Comment: CHEMI STRY SPECIMEN MODERATELY HEMOLYZED. INTERPRET RESULTS WITH CAUTION. Performed By: #### H EMOG, TROPN, LIPA4, CMP3, QWAL2 #### [facility] [address] [place] [address] Urea nitrogen [Mass/Vol] 13 mg/dL Normal 9-20 [facility] Comment on above: Order Comment: CHEMI STRY SPECIMEN MODERATELY HEMOLYZED. INTERPRET RESULTS WITH CAUTION. Performed By: #### H EMOG, TROPN, LIPA4, CMP3, QWAL2 #### [facility] [address] [place] [address] ALP [Catalytic activity/Vol] 44 U/L Normal 38-126 [facility] Comment on above: Order Comment: CHEMI STRY SPECIMEN MODERATELY HEMOLYZED. INTERPRET RESULTS WITH CAUTION. Performed By: #### H EMOG, TROPN, LIPA4, CMP3, QWAL2 #### [facility] [address] [place] [address] Anion gap [Moles/Vol] 5 mmol/L Normal 3-13 [facility] Comment on above: Order Comment: CHEMI STRY SPECIMEN MODERATELY HEMOLYZED. INTERPRET RESULTS WITH CAUTION. Performed By: #### H EMOG, TROPN, LIPA4, CMP3, QWAL2 #### [facility] [address] [place] [address] AST [Catalytic activity/Vol] 40 U/L Normal 15-46 [facility] Comment on above: Order Comment: CHEMI STRY SPECIMEN MODERATELY HEMOLYZED. INTERPRET RESULTS WITH CAUTION. Performed By: #### H EMOG, TROPN, LIPA4, CMP3, QWAL2 #### [facility] [address] [place] [address] Bilirubin [Mass/Vol] 0.6 mg/dL Normal 0.2-1.3 [facility] Comment on above: Order Comment: CHEMI STRY SPECIMEN MODERATELY HEMOLYZED. INTERPRET RESULTS WITH CAUTION. Performed By: #### H EMOG, TROPN, LIPA4, CMP3, QWAL2 #### [facility] [address] [place] [address] CO2 [Moles/Vol] 24 mmol/L Normal 22-30 [facility] Comment on above: Order Comment: CHEMI STRY SPECIMEN MODERATELY HEMOLYZED. INTERPRET RESULTS WITH CAUTION. Performed By: #### H EMOG, TROPN, LIPA4, CMP3, QWAL2 #### [facility] [address] [place] [address] Creatinine [Mass/Vol] 0.53 mg/dL Normal 0.52-1.25 [facility] Comment on above: Order Comment: CHEMI STRY SPECIMEN MODERATELY HEMOLYZED. INTERPRET RESULTS WITH CAUTION. Performed By: #### H EMOG, TROPN, LIPA4, CMP3, QWAL2 #### [facility] [address] [place] [address] eGFR OTHER > 90.0 Normal >60 [facility] Comment on above: Order Comment: CHEMI [...] H EMOG, TROPN, LIPA4, CMP3, QWAL2 #### [facility] [address] [place] [address] GFR/1.73 sq M.predicted among blacks MDRD (S/P/Bld) [Vol rate/Area] mL/min/{1.73_m2} Normal >60 [facility] Comment on above: Order Comment: CHEMI STRY SPECIMEN MODERATELY HEMOLYZED. INTERPRET RESULTS WITH CAUTION. Performed By: #### H EMOG, TROPN, LIPA4, CMP3, QWAL2 #### [facility] [address] [place] [address] Protein [Mass/Vol] 7.4 g/dL Normal 6.3-8.2 [facility] Comment on above: Order Comment: CHEMI STRY SPECIMEN MODERATELY HEMOLYZED. INTERPRET RESULTS WITH CAUTION. Performed By: #### H EMOG, TROPN, LIPA4, CMP3, QWAL2 #### [facility] [address] [place] [address] Chloride [Moles/Vol] 108 mmol/L High 98-107 [facility] Comment on above: Order Comment: CHEMI STRY SPECIMEN MODERATELY HEMOLYZED. INTERPRET RESULTS WITH CAUTION. Performed By: #### H EMOG, TROPN, LIPA4, CMP3, QWAL2 #### [facility] [address] [place] [address] Potassium [Moles/Vol] 4.4 mmol/L Normal 3.5-5.1 [facility] Comment on above: Order Comment: CHEMI STRY SPECIMEN MODERATELY HEMOLYZED. INTERPRET RESULTS WITH CAUTION. Performed By: #### H EMOG, TROPN, LIPA4, CMP3, QWAL2 #### [facility] [address] [place] [address] Sodium [Moles/Vol] 137 mmol/L Normal 135-145 [facility] Comment on above: Order Comment: CHEMI STRY SPECIMEN MODERATELY HEMOLYZED. INTERPRET RESULTS WITH CAUTION. Performed By: #### H EMOG, TROPN, LIPA4, CMP3, QWAL2 #### [facility] [address] [place] [address] Albumin [Mass/Vol] 4.1 g/dL Normal 3.5-5.0 [facility] Comment on above: Order Comment: CHEMI STRY SPECIMEN MODERATELY HEMOLYZED. INTERPRET RESULTS WITH CAUTION. Performed By: #### H EMOG, TROPN, LIPA4, CMP3, QWAL2 #### [facility] [address] [place] [address] Complete Urinalysison 2020 Appearance (U) Clear Normal Clear [facility] Comment on above: Result Comment: . Performed By: #### C UA2 #### [facility] [address] [place] [address] Bilirubin,Urine Negative Normal Negative [facility] Comment on above: Result Comment: . Performed By: #### C UA2 #### [facility] [address] [place] [address] Color (U) Light-Yellow Normal Lt. Yellow [facility] Comment on above: Result Comment: . Performed By: #### C UA2 #### [facility] [address] [place] [address] Glucose Ql (U) Normal Normal Normal (<70) [facility] Comment on above: Result Comment: . Performed By: #### C UA2 #### [facility] [address] [place] [address] Ketone,Urine Negative Normal Negative [facility] Comment on above: Result Comment: . Performed By: #### C UA2 #### [facility] [address] [place] [address] Leukocytes,Urine Negative Normal Negative [facility] Comment on above: Result Comment: . Performed By: #### C UA2 #### [facility] [address] [place] [address] Nitrites,Urine Negative Normal Negative [facility] Comment on above: Result Comment: . Performed By: #### C UA2 #### [facility] [address] [place] [address] Occult Blood,Urine Negative Normal Negative [facility] Comment on above: Result Comment: . Performed By: #### C UA2 #### [facility] [employer] [facility] [address] [place] [address] pH,Urine 6.0 Normal 5.0-8.0 [facility] Comment on above: Result Comment: . Performed By: #### C UA2 #### [facility] [employer] [facility] [address] [place] [address] Specific [place],Urine > 1.030 Abnormal 1.005 - 1.030 [facility] Comment on above: Result Comment: . Performed By: #### C UA2 #### [facility] [address] [place] [address] Total Protein,Urine Negative Normal Negative [facility] Comment on above: Result Comment: . Performed By: #### C UA2 #### [facility] [address] [place] [address] Urobilinogen,Urine Normal Normal Normal (0-1) [facility] Comment on above: Result Comment: . Performed By: #### C UA2 #### [facility] [employer] [facility] [address] [place] [address] Comprehensive Metabolic Pane lOrdered By: Nicolás Wiley on 07-10-2021 Albumin [Mass/Vol] 4.1 g/dL 3.5 - 5.0 g/dL [facility] Work Phone: [phone] ALP (Bld) [Catalytic activity/Vol] 44 U/L 38 - 126 U/L [facility] Work Phone: [phone] ALT [Catalytic activity/Vol] 31 U/L 0 - 34 U/L [facility] Work Phone: [phone] Comment on above: The ALT test is perf ormed by an updated assay method. Please note that the reference intervals have been changed and are now sex specific. Anion gap [Moles/Vol] 5 mmol/L 3 - 13 mmol/L [facility] Work Phone: [phone] AST [Catalytic activity/Vol] 40 U/L 15 - 46 U/L [facility] Work Phone: [phone] Bilirubin [Mass/Vol] 0.6 mg/dL 0.2 - 1 .3 mg/dL [facility] Work Phone: [phone] Calcium [Mass/Vol] 9.2 mg/dL 8.4 - 10. 4 mg/dL [facility] Work Phone: [phone] Chloride [Moles/Vol] 108 mmol/L High 98 - 10 7 mmol/L [facility] Work Phone: [phone] CO2 [Moles/Vol] 24 mmol/L 22 - 30 mmol/L [facility] Work Phone: [phone] Creatinine [Mass/Vol] 0.53 mg/dL 0.52 - 1.25 mg/dL [facility] Work Phone: [phone] EGFR IF NonAfrican [place] >90.0 >60 mL/min [facility] Work Phone: [phone] Comment on above: KDIGO guidelines pro vide [...] fraction] 7.4 g/dL 6.3 - 8.2 g/dL [facility] Work Phone: [phone] GFR/1.73 sq M.predicted among blacks MDRD (S/P/Bld) [Vol rate/Area] mL/min/{1.73_m2} >60 mL/min [facility] Work Phone: [phone] Glucose [Mass/Vol] 79 mg/dL 70 - 100 mg/dL [facility] Work Phone: [phone] Interpretation and review of laboratory results Abnormal [facility] Work Phone: [phone] Potassium [Moles/Vol] 4.4 mmol/L 3.5 - 5.1 mmol/L [facility] Work Phone: Sodium [Moles/Vol] 137 mmol/L 135 - 145 mmol/L [facility] Work Phone: Urea nitrogen (BldV) [Mass/Vol] 13 mg/dL 9 - 20 mg/dL [facility] Work Phone: ED Provider Noteon 1 [...] she reports she went to outside hospital [place] emergency department, there a CT abdomen pelvis [...] Rate and rhythm: [sinus rhythm], 54 bpm Chloride: [within normal range] Intervals: [within normal range] [...] dysfunction, hCG (more content not included)... Normal [facility] HCG Qualitative, SerumOrdere d By: Nicolás Wiley on 07-10-2021 hCG Qual Negative [facility] Work Phone: Comment on above: Reference Range: NEG ATIVE Effective 12/14/2019, the reference interval for the qualitative test has been updated. This test detects hCG at concentrations of 10 mIU/L or greater in serum. Test Performed by [facility], [address] [place] [address] CHEMISTRY SPECIMEN MODERATELY HEMOLYZED. INTERPRET RESULTS WITH CAUTION. [employer] Work Phone: [facility] Work Phone: Hemogramon 07-10-2021 Erythrocyte distribution width (RBC) [Ratio] 13.7 % Normal 11.5-14.5 [facility] Comment on above: Performed By: #### H EMOG, TROPN, LIPA4, CMP3, QWAL2 #### [facility] [address] [place] [address] Hematocrit (Bld) [Volume fraction] 39.8 % Normal 35.0-47.0 [facility] Comment on above: Performed By: #### H EMOG, TROPN, LIPA4, CMP3, QWAL2 #### [facility] [address] [place] [address] Hemoglobin (Bld) [Mass/Vol] 13.1 g/dL Normal 11.7-16.0 [facility] Comment on above: Performed By: #### H EMOG, TROPN, LIPA4, CMP3, QWAL2 #### [facility] [address] [place] [address] MCH (RBC) [Entitic mass] 29.9 pg Normal 26.0-34.0 [facility] Comment on above: Performed By: #### H EMOG, TROPN, LIPA4, CMP3, QWAL2 #### [facility] [address] [place] [address] MCHC 33.0 % Normal 32.0-36.0 [facility] Comment on above: Performed By: #### H EMOG, TROPN, LIPA4, CMP3, QWAL2 #### [facility] [address] [place] [address] MCV (RBC) [Entitic vol] 90.8 fL Normal 79.0-98.0 [facility] Comment on above: Performed By: #### H EMOG, TROPN, LIPA4, CMP3, QWAL2 #### [facility] [address] [place] [address] Platelet mean volume (Bld) [Entitic vol] 8.6 fL Normal 7.4-10.4 [facility] Comment on above: Performed By: #### H EMOG, TROPN, LIPA4, CMP3, QWAL2 #### [facility] [address] [place] [address] Platelets (Bld) [#/Vol] 220 10*3/uL Normal 140-440 [facility] Comment on above: Performed By: #### H EMOG, TROPN, LIPA4, CMP3, QWAL2 #### [facility] [address] [place] [address] RBC (Bld) [#/Vol] 4.38 10*6/uL Normal 3.80-5.20 [facility] Comment on above: Performed By: #### H EMOG, TROPN, LIPA4, CMP3, QWAL2 #### [facility] [address] [place] [address] WBC (Bld) [#/Vol] 8.2 10*3/uL Normal 3.6-10.7 [facility] Comment on above: Performed By: #### H EMOG, TROPN, LIPA4, CMP3, QWAL2 #### [facility] [address] [place] [address] Lipaseon 07-10-2021 Lipase [Catalytic activity/Vol] 234 U/L Normal 23-300 [facility] Comment on above: Order Comment: CHEMI STRY SPECIMEN MODERATELY HEMOLYZED. INTERPRET RESULTS WITH CAUTION. Performed By: #### H EMOG, TROPN, LIPA4, CMP3, QWAL2 #### [facility] [address] [place] [address] LipaseOrdered By: Nicolás jimenez on 07-10-2021 Lipase [Catalytic activity/Vol] 234 U/L 23 - 300 U/L [facility] Work Phone: No Panel InformationOrdered By: Nicolás Wiley on 07-10-2021 Test Performed by [facility], [address] [place], [place] [address] CHEMISTRY SPECIMEN MODERATELY HEMOLYZED. INTERPRET RESULTS WITH CAUTION. [facility] Work Phone: [facility] Work Phone: [phone] Test Performed by [facility], [address] [place], [place] [address] [facility] Work Phone: [employer] Work Phone: TroponinOrdered By: Nicolás Wiley on 07-10-2021 Troponin I.cardiac [Mass/Vol] 0.012 ng/mL 0.000 - 0.034 ng/mL [facility] Work Phone: Comment on above: . Test Performed by [facility], [address] [place], [place] [address] CHEMISTRY SPECIMEN MODERATELY HEMOLYZED. INTERPRET RESULTS WITH CAUTION. [facility] Work Phone: [facility] Work Phone: US ABDOMEN LIMITED Specify o rgan? LIVER, GALLBLADDER, PANCREASOrdered By: Nicolás Wiley on 07-10-2021 Patient Name: LILLIAN FIORE Ultrasound ACCESSION EXAM DATE/TIME PROCEDURE ORDERING PROVIDER [id number] 07/10/2021 21:49 EDT US Abdomen Limited [id number] HAZEL CPT code 33929 Reason For Exam (US Abdomen Limited) epigastric [...] Phone: [facility], [facility] Incoming Rad[facility] Results From [facility] - 07/10/2021 10:48 PM EDT Patient Name: LILLIAN FIORE Ultrasound ACCESSION EXAM DATE/TIME PROCEDURE ORDERING PROVIDER [id number] 07/10/2021 21:49 EDT US Abdomen Limited NICOLÁS REGALADO CPT code 89243 Reason For Exam (US Abdomen Limited) epigastric [...] and Time: 07/10/2021 10:48 [facility] Work Phone: [facility] Work Phone: US Abdomen Limitedon 021 US Abdomen Limited Patient Name: LILLIAN FIORE Ultrasound ACCESSION EXAM DATE/TIME PROCEDURE ORDERING PROVIDER [id number] 07/10/2021 21:49 EDT US Abdomen Limited Myah BettyNICOLÁS WILEY CPT code 52665 Reason For Exam (US Abdomen Limited) epigastric [...] Transcribed Date and Time: 07/10/2021 10:48 Normal [facility] US NON OB TRANSVAGINALOrdere d By: Nicolás Wiley on 07-10-2021 Patient Name: LILLIAN FIORE Ultrasound ACCESSION EXAM DATE/TIME PROCEDURE ORDERING PROVIDER [id number] 07/10/2021 22:15 EDT US Transvaginal NICOLÁS REGALADO CPT code 96535 Reason For Exam (US Transvaginal) pelvic pain, [...] AMARI --- Final --- Dictating Physician: MD BREWRE WENDELL Signed Date and Time: 07/10/2021 10:45 pm Signed by: MD BREWER WENDELL Transcribed Date and Time: 07/10/2021 10:46 [facility] Work Phone: [facility], [facility] In[facility] Results From [facility] - 07/10/2021 10:46 PM EDT Patient Name: LILLIAN FIORE Ultrasound ACCESSION EXAM DATE/TIME PROCEDURE ORDERING PROVIDER [id number] 07/10/2021 22:15 EDT US Transvaginal NICOLÁS REGALADO CPT code 41804 Reason For Exam (US Transvaginal) pelvic pain, [...] WENDELL Transcribed Date and Time: 07/10/2021 10:46 [facility] Work Phone: [facility] Work Phone: US Transvaginalon 07-10-2021 US Transvaginal Patient Name: LILLIAN FIORE Ultrasound ACCESSION EXAM DATE/TIME PROCEDURE ORDERING PROVIDER [id number] 07/10/2021 22:15 EDT US Transvaginal [id number] -NICOLÁS WILEY CPT code 35676 Reason For Exam (US Transvaginal) pelvic pain, [...] Transcribed Date and Time: 07/10/2021 10:46 Normal [facility] UrinalysisOrdered By: Hetal Wiley on 07-10-2021 Appearance (U) Clear Clear NA [employer] Work Phone: [phone] Comment on above: . Bilirubin Urine Negative Negative mg/dL [facility] Work Phone: [phone] Comment on above: . Color (U) Light-Yellow Lt. Yellow NA [employer] Work Phone: [phone] Comment on above: . Glucose, Ur Normal Normal (<70) mg/dL [employer] Work Phone: [phone] Comment on above: . Interpretation and review of laboratory results Abnormal [employer] Work Phone: [phone] Ketones Ql (U) Negative Negative mg/dL [employer] Work Phone: [phone] Comment on above: . LEUKOCYTES, UA Negative Negative Tammy/uL [employer] Work Phone: [phone] Comment on above: . Nitrite, Urine Negative Negative NA [employer] Work Phone: [phone] Comment on above: . Occult Blood,Urine Negative Negative mg/dL [employer] Work Phone: [phone] Comment on above: . pH (U) 6.0 [pH] [employer] Work Phone: [phone] Comment on above: . Specific Perkins, Urine >1.030 Abnormal [employer] Work Phone: [phone] Comment on above: . Total Protein, Urine Negative Negativ e mg/dL [employer] Work Phone: [phone] Comment on above: . Urobilinogen, Urine Normal Normal ( 0-1) mg/dL [facility] Work Phone: [phone] Comment on above: . Comp Metabolic Panelon 05-11 ALP [Catalytic activity/Vol] 55 U/L Normal 38-126 [facility] [employer] Comment on above: Performed By: #### C MP3, HEMDF ####[email or web address] [address] [place] [address] ALT [Catalytic activity/Vol] 14 U/L Normal 0-34 [facility] [employer] Comment on above: Result Comment: The ALT test is performed by an updated assay method. Please note that the reference intervals have been changed and are now sex specific. Performed By: #### C MP3, HEMDF ####[place] [address] [place] [address] Calcium [Mass/Vol] 8.9 mg/dL Normal 8.4-10.4 [facility] Comment on above: Performed By: #### C MP3, HEMDF ####[place] [address] [place] [address] Glucose [Mass/Vol] 76 mg/dL Normal 70-100 [facility] Comment on above: Performed By: #### C MP3, HEMDF ####[place] [address] [place] [address] Urea nitrogen [Mass/Vol] 12 mg/dL Normal 7-20 [facility] Comment on above: Performed By: #### C MP3, HEMDF ####[place] [address] [place] [address] Anion gap [Moles/Vol] 3 mmol/L Normal 3-13 [facility] Comment on above: Performed By: #### C MP3, HEMDF ####[place] [address] [place] [address] AST [Catalytic activity/Vol] 24 U/L Normal 15-46 [facility] Comment on above: Performed By: #### C MP3, HEMDF ####[place] [address] [place] [address] Bilirubin [Mass/Vol] 0.3 mg/dL Normal 0.2-1.3 [facility] Comment on above: Performed By: #### C MP3, HEMDF ####[place] [address] [place] [address] CO2 [Moles/Vol] 25 mmol/L Normal 22-30 [facility] Comment on above: Performed By: #### C MP3, HEMDF ####[place] [address] [place] [address] Creatinine [Mass/Vol] 0.62 mg/dL Normal 0.52-1.25 [facility] Comment on above: Performed By: #### C MP3, HEMDF ####[place] [address] [place] [address] eGFR OTHER > 90.0 Normal >60 [facility] Comment on above: Result Comment: KDIG [...] secretion. Performed By: #### C MP3, HEMDF ####[place] [address] [facility] [place] [address] GFR/1.73 sq M.predicted among blacks MDRD (S/P/Bld) [Vol rate/Area] mL/min/{1.73_m2} Normal >60 [facility] Comment on above: Performed By: #### C MP3, HEMDF ####[place] [address] [place] [address] Protein [Mass/Vol] 6.9 g/dL Normal 6.3-8.2 [facility] Comment on above: Performed By: #### C MP3, HEMDF ####[place] [address] [place] [address] Potassium [Moles/Vol] 3.9 mmol/L Normal 3.5-5.1 [facility] Comment on above: Performed By: #### C MP3, HEMDF ####[place] [address] [place] [address] Sodium [Moles/Vol] 137 mmol/L Normal 135-145 [facility] Comment on above: Performed By: #### C MP3, HEMDF ####[place] [address] [place] [address] Albumin [Mass/Vol] 3.8 g/dL Normal 3.5-5.0 [facility] Comment on above: Performed By: #### C MP3, HEMDF ####[place] [address] [place] [address] Chloride [Moles/Vol] 109 mmol/L High 98-107 [facility] Comment on above: Performed By: #### C MP3, HEMDF ####[place] [address] [place] [address] Complete Urinalysison 2020 Appearance (U) Clear Normal Clear [facility] Comment on above: Result Comment: . Performed By: #### C UA2 ####[place] [address] [place] [address] Bilirubin,Urine Negative Normal Negative [facility] Comment on above: Result Comment: . Performed By: #### C UA2 ####[address] [place] [address] Color (U) Colorless Normal Lt. Yellow [facility] Comment on above: Result Comment: . Performed By: #### C UA2 ####[place] [address] [place] [address] Glucose Ql (U) Normal Normal Normal (<70) [facility] Comment on above: Result Comment: . Performed By: #### C UA2 ####[address] [place] [address] Ketone,Urine Negative Normal Negative [facility] Comment on above: Result Comment: . Performed By: #### C UA2 ####[address] [place] [address] Leukocytes,Urine Negative Normal Negative [facility] Comment on above: Result Comment: . Performed By: #### C UA2 ####[place] [address] [place] [address] Nitrites,Urine Negative Normal Negative [facility] Comment on above: Result Comment: . Performed By: #### C UA2 ####[place] [address] [place] [address] Occult Blood,Urine Negative Normal Negative [facility] Comment on above: Result Comment: . Performed By: #### C UA2 ####[address] [place] [address] pH,Urine 6.5 Normal 5.0-8.0 [facility] Comment on above: Result Comment: . Performed By: #### C UA2 ####[address] [place] [address] Specific Perkins,Urine 1.011 Normal 1.005 - 1.030 [facility] Comment on above: Result Comment: . Performed By: #### C UA2 ####[address] [place] [address] Total Protein,Urine Negative Normal Negative [facility] Comment on above: Result Comment: . Performed By: #### C UA2 ####[address] [place] [address] Urobilinogen,Urine Normal Normal Normal (0-1) [facility] Comment on above: Result Comment: . Performed By: #### C UA2 ####[address] [place] [address] Comprehensive Metabolic Pane lOrdered By: Angie Alejandro on 05-11-2021 Albumin [Mass/Vol] 3.8 g/dL 3.5 - 5.0 g/dL [facility] Work Phone: [phone] ALP (Bld) [Catalytic activity/Vol] 55 U/L 38 - 126 U/L [facility] Work Phone: [phone] ALT [Catalytic activity/Vol] 14 U/L 0 - 34 U/L [facility] Work Phone: [phone] Comment on above: The ALT test is perf ormed by an updated assay method. Please note that the reference intervals have been changed and are now sex specific. Anion gap [Moles/Vol] 3 mmol/L 3 - 13 mmol/L [facility] Work Phone: [phone] AST [Catalytic activity/Vol] 24 U/L 15 - 46 U/L [facility] Work Phone: [phone] Bilirubin [Mass/Vol] 0.3 mg/dL 0.2 - 1 .3 mg/dL [facility] Work Phone: [phone] Calcium [Mass/Vol] 8.9 mg/dL 8.4 - 10. 4 mg/dL [facility] Work Phone: [phone] Chloride [Moles/Vol] 109 mmol/L High 98 - 10 7 mmol/L [facility] Work Phone: [phone] [phone] [Moles/Vol] 25 mmol/L 22 - 30 mmol/L [facility] Work Phone: [phone] Creatinine [Mass/Vol] 0.62 mg/dL 0.52 - 1.25 mg/dL [facility] Work Phone: [phone] IF NonAfrican [place] >90.0 >60 mL/min [facility] Work Phone: [phone] Comment on above: KDIGO guidelines pro vide [...] fraction] 6.9 g/dL 6.3 - 8.2 g/dL [facility] Work Phone: [phone] GFR/1.73 sq M.predicted among blacks MDRD (S/P/Bld) [Vol rate/Area] mL/min/{1.73_m2} >60 mL/min [facility] Work Phone: [phone] Glucose [Mass/Vol] 76 mg/dL 70 - 100 mg/dL [facility] Work Phone: [phone] Interpretation and review of laboratory results Abnormal [facility] Work Phone: [phone] Potassium [Moles/Vol] 3.9 mmol/L 3.5 - 5.1 mmol/L [facility] Work Phone: [phone] Sodium [Moles/Vol] 137 mmol/L 135 - 145 mmol/L [facility] Work Phone: Urea nitrogen (BldV) [Mass/Vol] 12 mg/dL 7 - 20 mg/dL [facility] Work Phone: [phone] Test Performed by [facility], [address] [place], [place], [place] [address] [facility] Work Phone: [facility] Work Phone: ED Provider Noteon 1 ED [facility] ENCOUNTER Pt Name: Lillian Foire Birthdate 1985 Date of evaluation: 05/11/2021 Provider: [...] more severe than usual. She went to [place] emergency department last night. She states that [...] Gatherings with Friends and Family: ? Attends Church Services: ? Active Member of Clubs or Organizations: ? Attends Club or Organization Meetings: ? Marital Status: Intimate Partner Violence: ? Fear of Current or Ex-Partner: ? Emotionally Abused: ? Physically Abused: ? Sexually Abused: SCREENINGS PHYSICAL EXAM (up to 7 for level 4, 8 or more for level 5) ED Triage Vitals [05/11/21 (more content not included)... Normal [email or web address] Hemogram (CBC) w/Auto DiffOr dered By: Angie Alejandro on 05-11-2021 Absolute Baso # 0.0 10*3/uL 0.0 - 0.2 10*3/uL [employer] Work Phone: Absolute Neut # 3.1 10*3/uL 1.8 - 7.0 10*3/uL [employer] Work Phone: [phone] Basophils/100 WBC (Bld) 0.7 % 0.0 - 2.0 % [employer] Work Phone: [phone] Eosinophils (Bld) [#/Vol] 0.2 10*3/uL 0.0 - 0.5 10*3/uL [employer] Work Phone: [phone] Eosinophils/100 WBC (Bld) 3.0 % 1.0 - 6.0 % [employer] Work Phone: [phone] Granulocytes/100 WBC (Bld) 53.2 % 40.0 - 80.0 % [employer] Work Phone: [phone] Hematocrit (Bld) [Volume fraction] 38.6 % 35.0 - 47.0 % [employer] Work Phone: Hemoglobin.gastrointes tinal spec 1 Ql (Stl) 13.1 g/dL 11.7 - 16.0 g/dL [employer] Work Phone: Lymphocytes (Bld) [#/Vol] 2.2 10*3/uL 1.0 - 4.3 10*3/uL [facility] Work Phone: [phone] Lymphocytes/100 WBC (Bld) 37.2 % 20.0 - 40.0 % [facility] Work Phone: MCH (RBC) [Entitic mass] 31.0 pg 26.0 - 34.0 pg [facility] Work Phone: MCHC (RBC) [Mass/Vol] 33.9 % 32.0 - 36.0 % [facility] Work Phone: MCV (RBC) [Entitic vol] 91.5 fL 79.0 - 98.0 fL [employer] Work Phone: Monocytes (Bld) [#/Vol] 0.3 10*3/uL 0.0 - 0.8 10*3/uL [facility] Work Phone: Monocytes/100 WBC (Bld) 5.9 % 2.0 - 10.0 % [employer] Work Phone: Platelet distribution width (Bld) [Ratio] 13.9 % 11.5 - 14.5 % [employer] Work Phone: Platelet mean volume (Bld) [Entitic vol] 8.0 fL 7.4 - 10.4 fL [employer] Work Phone: Platelets (Bld) [#/Vol] 201 10*3/uL 140 - 440 10*3/uL [employer] Work Phone: RBC (Bld) [#/Vol] 4.22 10*6/uL 3.80 - 5.2 0 10*6/uL [facility] Work Phone: WBC (Bld) [#/Vol] 5.9 10*3/uL 3.6 - 10.7 10*3/uL [employer] Work Phone: Test Performed by [facility], [address] [place], [place] [address] [facility] Work Phone: [employer] Work Phone: Hemogram w/ Autodiffon 05-11 Abs Baso Cnt 0.0 10*3/uL Normal 0.0-0.2 [facility] Comment on above: Performed By: #### C MP3, HEMDF ####[place] [address] [place] [address] Abs Neutrophile Cnt 3.1 10*3/uL Normal 1.8-7.0 [facility] Comment on above: Performed By: #### C MP3, HEMDF ####[place] [address] [place] [address] Basophils/100 WBC (Bld) 0.7 % Normal 0.0-2.0 [facility] Comment on above: Performed By: #### C MP3, HEMDF ####[place] [address] [place] [address] Eosinophils (Bld) [#/Vol] 0.2 10*3/uL Normal 0.0-0.5 [facility] Comment on above: Performed By: #### C MP3, HEMDF ####[place] [address] [place] [address] Eosinophils/100 WBC (Bld) 3.0 % Normal 1.0-6.0 [facility] Comment on above: Performed By: #### C MP3, HEMDF ####[place] [address] [place] [address] Erythrocyte distribution width (RBC) [Ratio] 13.9 % Normal 11.5-14.5 [facility] Comment on above: Performed By: #### C MP3, HEMDF ####[place] [address] [place] [address] Granulocytes/100 WBC (Bld) 53.2 % Normal 40.0-80.0 [facility] Comment on above: Performed By: #### C MP3, HEMDF ####[place] [address] [place] [address] Hematocrit (Bld) [Volume fraction] 38.6 % Normal 35.0-47.0 [facility] Comment on above: Performed By: #### C MP3, HEMDF ####[place] [address] [place] [address] Hemoglobin (Bld) [Mass/Vol] 13.1 g/dL Normal 11.7-16.0 [facility] Comment on above: Performed By: #### C MP3, HEMDF ####[facility] [place] [address] Lymphocytes (Bld) [#/Vol] 2.2 10*3/uL Normal 1.0-4.3 [facility] Comment on above: Performed By: #### C MP3, HEMDF ####[place] [address] [place] [address] Lymphocytes/100 WBC (Bld) 37.2 % Normal 20.0-40.0 [facility] Comment on above: Performed By: #### C MP3, HEMDF ####[place] [address] [place] [address] MCH (RBC) [Entitic mass] 31.0 pg Normal 26.0-34.0 [facility] Comment on above: Performed By: #### C MP3, HEMDF ####[place] [address] [place] [address] MCHC 33.9 % Normal 32.0-36.0 [facility] Comment on above: Performed By: #### C MP3, HEMDF ####[address] [place] [address] MCV (RBC) [Entitic vol] 91.5 fL Normal 79.0-98.0 [facility] Comment on above: Performed By: #### C MP3, HEMDF ####[place] [address] [place] [address] Monocytes (Bld) [#/Vol] 0.3 10*3/uL Normal 0.0-0.8 [facility] Comment on above: Performed By: #### C MP3, HEMDF ####[place] [address] [place] [address] Monocytes/100 WBC (Bld) 5.9 % Normal 2.0-10.0 [facility] Comment on above: Performed By: #### C MP3, HEMDF ####[place] [address] [place] [address] Platelet mean volume (Bld) [Entitic vol] 8.0 fL Normal 7.4-10.4 [facility] Comment on above: Performed By: #### C MP3, HEMDF ####[email or web address] [address] [place] [address] Platelets (Bld) [#/Vol] 201 10*3/uL Normal 140-440 [facility] Comment on above: Performed By: #### C MP3, HEMDF ####[employer] [id number] [place] [address] RBC (Bld) [#/Vol] 4.22 10*6/uL Normal 3.80-5.20 [facility] Comment on above: Performed By: #### C MP3, HEMDF ####[email or web address] [address] [facility] [address] WBC (Bld) [#/Vol] 5.9 10*3/uL Normal 3.6-10.7 [facility] [employer] Comment on above: Performed By: #### C MP3, HEMDF ####[email or web address] [id number] [facility] [place] [address] UrinalysisOrdered By: Iam Alejandro on 05-11-2021 Appearance (U) Clear Clear NA [employer] Work Phone: [phone] Comment on above: . Bilirubin Urine Negative Negative mg/dL [facility] Work Phone: [phone] Comment on above: . Color (U) Colorless Lt. Yellow NA [employer] Work Phone: [phone] Comment on above: . Glucose, Ur Normal Normal (<70) mg/dL [facility] Work Phone: [phone] Comment on above: . Ketones Ql (U) Negative Negative mg/dL [facility] Work Phone: [phone] Comment on above: . LEUKOCYTES, UA Negative Negative Tammy/uL [facility] Work Phone: [phone] Comment on above: . Nitrite, Urine Negative Negative NA [facility] Work Phone: [phone] Comment on above: . Occult Blood,Urine Negative Negative mg/dL [facility] Work Phone: [phone] Comment on above: . pH (U) 6.5 [pH] [facility] Work Phone: Comment on above: . Specific Perkins, Urine 1.011 [facility] Work Phone: [phone] Comment on above: . Total Protein, Urine Negative Negativ e mg/dL [facility] Work Phone: [phone] Comment on above: . Urobilinogen, Urine Normal Normal ( 0-1) mg/dL [facility] Work Phone: Comment on above: . Test Performed by [facility], [address] [place], [place] [address] [facility] Work Phone: [phone] [facility] Work Phone: Surgical Tissue Examon 05-08 Surgical Tissue Exam Test performed at A [address] [address] NAME: LILLIAN FIORE REQUESTING: BRITNEY CEDEÑO MD [...] PRINTED: 05/12/2020 Page 1 of 1 Normal [facility] Comment on above: Performed By: #### S URG #### [address] [address] Urine HCG, Qual.on 0 Beta HCG ( test) Ql (U) Negative Normal Negative [facility] Comment on above: Performed By: #### L HCG2 #### [address] [address] Specific [place], Ur 1.025 Normal 1.005-1.030 [facility] Comment on above: Performed By: #### L HCG2 #### [place] [id number] Coronavirus 2019on 0 COVID 19 Result 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 This test was developed and its performance characteristics determined by [facility]. This test has been authorized by FDA under an Emergency Use Authorization (EUA). This test has been validated in accordance with the FDA's Guidance Document Policy for Diagnostics Testing in Laboratories Certified to Perform High Complexity Testing under CLIA prior to Emergency use Authorization for Coronavirus Disease 2019 during the Public Health Emergency issued on December 01, 2019. Performing Laboratory: [facility] [employer] [address] [id number] Performed By: #### C D19X #### [place] [address] Clinical Lists Update: Prelo ad Extendedon 10-17-2019 Tobacco smoking status NHIS current everyday smoker [facility] Work Phone: Clinical Summary: HMSPatient IDon 10-17-2019 WOP [facility] Work Phone: Office Visit: New - 1st visi t with practice, Rm: 6on 10-17-2019 NEGATED: Highlighted rowxray history of the Right Hand on 09/01/2019 at [facility] Work Phone: COVID-19 virus antigen assay SARS-CoV-2 (COVID-19) Ag IA.rapid Ql (Resp) [facility] Work Phone: Culture, urine Bacteria identified Cx Nom (U) Culture exhibits no growth. [facility] Work Phone: Bacteria identified Cx Nom (U) Positive [facility] Work Phone: [phone] Influenza virus A and B and SARS-CoV-2 (COVID-19) Ag panel - Upper respiratory specim SARS-CoV-2 (COVID-19) RNA FRANCESCO+probe Ql (Resp) [facility] Work Phone: Laboratory - Microbiology an d Antimicrobial susceptibility Bacteria identified Cx Nom (Bld) No growth in 5 days. [facility] Work Phone: No Panel Information Group B Streptococcus Culture Group B Beta Streptococcus is not isolated. [facility] Work Phone: Vital Signs Date Time Vital Sign Value Performing Clinician Facility 04-08-2025 19:30-0400 Body temperature 97.9 [degF] Dr. Maria Regan MD Work Phone: [facility] 04-08-2025 19:30-0400 Diastolic blood pressure 77 mm[Hg] Dr. Maria Regan MD Work Phone: [facility] 04-08-2025 19:30-0400 Heart rate 61 /min Dr. Maria Regan MD Work Phone: [facility] 04-08-2025 19:30-0400 Respiratory rate 18 /min Dr. Maria Regan MD Work Phone: [facility] 04-08-2025 19:30-0400 SaO2% (BldA) [Mass fraction] 99 % Dr. aMria Regan MD Work Phone: [facility] 04-08-2025 19:30-0400 Systolic blood pressure 110 mm[Hg] Dr. Maria Regan MD Work Phone: [facility] 04-08-2025 13:09-0400 Body height 160.[address] Maria Regan MD Work Phone: 8(090)431-087339 [place] [address] 04-08-2025 13:09-0400 Body mass index (BMI) [Ratio] 30.1 kg/m2 Dr. Maria Regan MD Work Phone: 5(679)142-969039 [place] [address] 04-08-2025 13:09-0400 Body weight 77.[address] Maria Regan MD Work Phone: 5(637)660-365539 [place] [address] 03-27-2025 11:10-0400 Body height 160.[address] Maria Regan MD Work Phone: 9(235)307-825887 [place] [address] 03-27-2025 11:06-0400 Body mass index (BMI) [Ratio] 29.2 kg/m2 Dr. Maria Regan MD Work Phone: 9(572)995-276439 [place] [address] 03-27-2025 11:06-0400 Body weight 74.[address] Maria Regan MD Work Phone: 1(875)125-038639 [place] [address] 03-27-2025 11:06-0400 Diastolic blood pressure 66 mm[Hg] Dr. Maria Regan MD Work Phone: 1(860)954-846939 [place] [address] 03-27-2025 11:06-0400 Systolic blood pressure 118 mm[Hg] Dr. Maria Regan MD Work Phone: 1(993)666-964739 [place] [address] 03-22-2025 00:00-0400 Diastolic blood pressure 72 mm[Hg] Dr. Maria Regan MD Work Phone: 5(006)451-777939 [place] [address] 03-22-2025 00:00-0400 Heart rate 74 /min Dr. Maria Regan MD Work Phone: 1(557)537-206339 [place] [address] 03-22-2025 00:00-0400 Respiratory rate 18 /min Dr. Maria Regan MD Work Phone: 6(169)282-967339 [place] [address] 03-22-2025 00:00-0400 SaO2% (BldA) [Mass fraction] 99 % Dr. Maria Regan MD Work Phone: 0(102)656-347139 [place] [address] 03-22-2025 00:00-0400 Systolic blood pressure 111 mm[Hg] Dr. Maria Regan MD Work Phone: [facility] 03-21-2025 22:52-0400 Body temperature 97.6 [degF] Dr. Maria Regan MD Work Phone: [facility] 03-21-2025 18:11-0400 Body height 160.[address] Maria Regan MD Work Phone: [facility] 03-21-2025 18:11-0400 Body mass index (BMI) [Ratio] 29.4 kg/m2 Dr. Maria Regan MD Work Phone: [facility] 03-21-2025 18:11-0400 Body weight 75.[address] Maria Regan MD Work Phone: [facility] 03-18-2025 09:30-0400 Body height 160.[address] Maria Regan MD Work Phone: 7(873)218-907139 [place] [address] 03-18-2025 09:30-0400 Body mass index (BMI) [Ratio] 29.5 kg/m2 Dr. Maria Regan MD Work Phone: [facility] 03-18-2025 09:30-0400 Body weight 75.[address] Maria Regan MD Work Phone: [facility] 03-18-2025 09:30-0400 Diastolic blood pressure 56 mm[Hg] Dr. Maria Regan MD Work Phone: [facility] 03-18-2025 09:30-0400 Systolic blood pressure 99 mm[Hg] Dr. Maria Regan MD Work Phone: [facility] 03-06-2025 15:23-0400 Body temperature 98.4 [degF] Dr. Maria Regan MD Work Phone: [facility] 03-06-2025 15:23-0400 Diastolic blood pressure 74 mm[Hg] Dr. Maria Regan MD Work Phone: 7(685)739-072739 [place] [address] 03-06-2025 15:23-0400 Heart rate 74 /min Dr. Maria Regan MD Work Phone: 2(249)438-195239 [place] [address] 03-06-2025 15:23-0400 Respiratory rate 16 /min Dr. Maria Regan MD Work Phone: 0(014)735-837539 [place] [address] 03-06-2025 15:23-0400 SaO2% (BldA) [Mass fraction] 99 % Dr. Maria Regan MD Work Phone: 8(703)221-834239 [place] [address] 03-06-2025 15:23-0400 Systolic blood pressure 164 mm[Hg] Dr. Maria Regan MD Work Phone: 7(015)722-375339 [place] [address] 03-06-2025 10:02-0400 Body height 160.[address] Maria Regan MD Work Phone: 4(364)984-200139 [place] [address] 03-06-2025 10:02-0400 Body mass index (BMI) [Ratio] 29.2 kg/m2 Dr. Maria Regan MD Work Phone: 1(110)503-541239 [place] [address] 03-06-2025 10:02-0400 Body weight [address] Maria Regan MD Work Phone: 2(442)212-969639 [place] [address] 02-27-2025 10:31-0400 Body height 160.[address] Maria Regan MD Work Phone: 5(397)475-156939 [place] [address] 02-27-2025 10:31-0400 Body mass index (BMI) [Ratio] 29.2 kg/m2 Dr. Maria Regan MD Work Phone: 5(440)148-408739 [place] [address] 02-27-2025 10:31-0400 Body weight 74.[address] Maria Regan MD Work Phone: 2(944)279-416539 [place] [address] 02-27-2025 10:31-0400 Diastolic blood pressure 66 mm[Hg] Dr. Maria Regan MD Work Phone: 6(887)680-791439 [place] [address] 02-27-2025 10:31-0400 Systolic blood pressure 102 mm[Hg] Dr. Maria Regan MD Work Phone: [facility] 02-18-2025 10:04-0400 Body temperature 98.2 [degF] Dr. Maria Regan MD Work Phone: [facility] 02-18-2025 10:04-0400 Diastolic blood pressure 45 mm[Hg] Dr. Maria Regan MD Work Phone: [facility] 02-18-2025 10:04-0400 Heart rate 53 /min Dr. Maria Regan MD Work Phone: [facility] 02-18-2025 10:04-0400 Respiratory rate 18 /min Dr. Maria Regan MD Work Phone: [facility] 02-18-2025 10:04-0400 SaO2% (BldA) [Mass fraction] 98 % Dr. Maria Regan MD Work Phone: [facility] 02-18-2025 10:04-0400 Systolic blood pressure 112 mm[Hg] Dr. Maria Regan MD Work Phone: [facility] 02-18-2025 08:29-0400 Body height 160.[address] Maria Regan MD Work Phone: [facility] 02-18-2025 08:29-0400 Body mass index (BMI) [Ratio] 28.8 kg/m2 Dr. Maria Regan MD Work Phone: [facility] 02-18-2025 08:29-0400 Body weight 73.[address] Maria Regan MD Work Phone: [facility] 01-07-2025 14:54-0400 Body height 160.[address] Maria Regan MD Work Phone: [facility] 01-07-2025 14:54-0400 Body mass index (BMI) [Ratio] 29.9 kg/m2 Dr. Maria Regan MD Work Phone: [facility] 01-07-2025 14:54-0400 Body weight 76.[address] Maria Regan MD Work Phone: 3(955)897-910639 [place] [address] 01-07-2025 14:54-0400 Diastolic blood pressure 51 mm[Hg] Dr. Maria Regan MD Work Phone: 3(598)375-523439 [place] [address] 01-07-2025 14:54-0400 Systolic blood pressure 105 mm[Hg] Dr. Maria Regan MD Work Phone: 7(134)413-383839 [place] [address] 12-21-2024 11:17-0400 Body mass index (BMI) [Ratio] 29.9 kg/m2 Dr. Maria Regan MD Work Phone: 7(022)369-149739 [place] [address] 12-21-2024 11:17-0400 Body weight 76.[address] Maria Regan MD Work Phone: 8(794)321-834539 [place] [address] 12-21-2024 11:17-0400 Diastolic blood pressure 49 mm[Hg] Dr. Maria Regan MD Work Phone: 3(420)729-564439 [place] [address] 12-21-2024 11:17-0400 Systolic blood pressure 95 mm[Hg] Dr. Maria Regan MD Work Phone: 8(914)383-190839 [place] [address] 11-22-2024 22:37-0500 Body temperature 98.4 [degF] Dr. Maria Regan MD Work Phone: 0(711)588-099439 [place] [address] 11-22-2024 22:37-0500 Diastolic blood pressure 71 mm[Hg] Dr. Maria Regan MD Work Phone: 7(299)559-420939 [place] [address] 11-22-2024 22:37-0500 Heart rate 65 /min Dr. Maria Regan MD Work Phone: 7(930)255-378939 [place] [address] 11-22-2024 22:37-0500 Respiratory rate 17 /min Dr. Maria Regan MD Work Phone: 9(438)313-880839 [place] [address] 11-22-2024 22:37-0500 SaO2% (BldA) [Mass fraction] 99 % Dr. Maria Regan MD Work Phone: [facility] 11-22-2024 22:37-0500 Systolic blood pressure 108 mm[Hg] Dr. Maria Regan MD Work Phone: [facility] 11-22-2024 15:16-0500 Body mass index (BMI) [Ratio] 30.1 kg/m2 Dr. Maria Regan MD Work Phone: [facility] 11-22-2024 15:16-0500 Body weight 77.[address] Maria Regan MD Work Phone: [facility] 2024 08:26-0500 Body height 160 cm Jennifer Werner MD Work Phone: [facility] 2024 08:26-0500 Body mass index (BMI) [Ratio] 30.12 kg/m2 Jennifer Werner MD Work Phone: [facility] 2024 08:26-0500 Body weight 77.11 kg Jennifer Werner MD Work Phone: [facility] 2024 08:26-0500 Diastolic blood pressure 69 mm[Hg] Jennifer Werner MD Work Phone: [facility] 2024 08:26-0500 Heart rate 67 /min Jennifer Werner MD Work Phone: [facility] 2024 08:26-0500 SaO2% (BldA) [Mass fraction] 96 % Jennifer Werner MD Work Phone: [facility] 2024 08:26-0500 Systolic blood pressure 104 mm[Hg] Jennifer Werner MD Work Phone: [facility] 10-11-2024 18:40-0500 Body mass index (BMI) [Ratio] 30.47 kg/m2 To VELAZQUEZ Work Phone: [facility] 10-11-2024 18:40-0500 Body temperature 97.59 [degF] Krislyn Aberegg PA Work Phone: [facility] 10-11-2024 18:40-0500 Body weight 78 kg Krislyn Aberegg PA Work Phone: [facility] 10-11-2024 18:40-0500 Diastolic blood pressure 67 mm[Hg] Krislyn Aberegg PA Work Phone: [facility] 10-11-2024 18:40-0500 Heart rate 78 /min Krislyn Aberegg PA Work Phone: [facility] 10-11-2024 18:40-0500 Respiratory rate 20 /min Krislyn Aberegg PA Work Phone: [facility] 10-11-2024 18:40-0500 SaO2% (BldA) [Mass fraction] 98 % Krislyn Aberegg PA Work Phone: [facility] 10-11-2024 18:40-0500 Systolic blood pressure 100 mm[Hg] Krislyn Aberegg PA Work Phone: [facility] 07-12-2024 09:00-0400 Body height 160 cm Jennifer Christina MD Work Phone: [facility] 07-12-2024 09:00-0400 Body mass index (BMI) [Ratio] 29.06 kg/m2 Jennifer Christina MD Work Phone: [facility] 07-12-2024 09:00-0400 Body weight 74.39 kg Jennifer Christina MD Work Phone: [facility] 07-12-2024 09:00-0400 Diastolic blood pressure 69 mm[Hg] Jennifer Christina MD Work Phone: [facility] 07-12-2024 09:00-0400 Heart rate 72 /min Jennifer Christina MD Work Phone: [facility] 07-12-2024 09:00-0400 Respiratory rate 18 /min Jennifer Christina MD Work Phone: [facility] 07-12-2024 09:00-0400 SaO2% (BldA) [Mass fraction] 98 % Jennifer Christina MD Work Phone: [facility] 07-12-2024 09:00-0400 Systolic blood pressure 109 mm[Hg] Jennifer Christina MD Work Phone: [facility] 07-09-2024 07:59-0400 Body mass index (BMI) [Ratio] 28.95 kg/m2 Krislyn Aberegg PA Work Phone: [facility] 07-09-2024 07:59-0400 Body temperature 97.11 [degF] Krislyn Aberegg PA Work Phone: [facility] 07-09-2024 07:59-0400 Body weight 74.1 kg Krislyn Aberegg PA Work Phone: [facility] 07-09-2024 07:59-0400 Diastolic blood pressure 70 mm[Hg] Krislyn Aberegg PA Work Phone: [facility] 07-09-2024 07:59-0400 Heart rate 78 /min Krislyn Aberegg PA Work Phone: [facility] 07-09-2024 07:59-0400 Respiratory rate 16 /min Krislyn Aberegg PA Work Phone: [facility] 07-09-2024 07:59-0400 SaO2% (BldA) [Mass fraction] 98 % Krislyn Aberegg PA Work Phone: [facility] 07-09-2024 07:59-0400 Systolic blood pressure 122 mm[Hg] Krislyn Aberegg PA Work Phone: [facility] 06-20-2024 15:18-0400 Body mass index (BMI) [Ratio] 29.1 kg/m2 Kellee Rai BIRTH CERTIFICATE CLERK.[employer]PER[employer] Work Phone: [facility] 06-20-2024 15:18-0400 Body temperature 97.59 [degF] Kellee Rai BIRTH CERTIFICATE CLERK.[employer]ODUCTION SUPERVISOR Work Phone: [facility] 06-20-2024 15:18-0400 Body weight 74.5 kg Kellee Rai BIRTH CERTIFICATE CLERK.[employer] SUPERVISOR Work Phone: [facility] 06-20-2024 15:18-0400 Diastolic blood pressure 62 mm[Hg] Kellee Rai BIRTH CERTIFICATE CLERK.[employer]ODUCTION SUPERVISOR Work Phone: [facility] 06-20-2024 15:18-0400 Heart rate 76 /min Kellee Rai BIRTH CERTIFICATE CLERK.[employer]ODUCTION SUPERVISOR Work Phone: [facility] 06-20-2024 15:18-0400 Respiratory rate 16 /min Kellee Rai BIRTH CERTIFICATE CLERK.[employer]ODUCTION SUPERVISOR Work Phone: [facility] 06-20-2024 15:18-0400 SaO2% (BldA) [Mass fraction] 98 % Kellee Rai BIRTH CERTIFICATE CLERK.[employer]ODUCTION SUPERVISOR Work Phone: [facility] 06-20-2024 15:18-0400 Systolic blood pressure 108 mm[Hg] Kellee Rai BIRTH CERTIFICATE CLERK.[employer]ODUCTION SUPERVISOR Work Phone: [facility] 06-15-2024 15:31-0400 Body mass index (BMI) [Ratio] 28.52 kg/m2 Krislyn Aberegg PA Work Phone: [facility] 06-15-2024 15:31-0400 Body temperature 98.29 [degF] Krislyn Aberegg PA Work Phone: [facility] 06-15-2024 15:31-0400 Body weight 73 kg Krislyn Aberegg PA Work Phone: [facility] 06-15-2024 15:31-0400 Diastolic blood pressure 66 mm[Hg] Krislyn Aberegg PA Work Phone: [facility] 06-15-2024 15:31-0400 Heart rate 77 /min Krislyn Aberegg PA Work Phone: [facility] 06-15-2024 15:31-0400 Respiratory rate 20 /min Krislyn Aberegg PA Work Phone: [facility] 06-15-2024 15:31-0400 SaO2% (BldA) [Mass fraction] 98 % Krislyn Aberegg PA Work Phone: [facility] 06-15-2024 15:31-0400 Systolic blood pressure 96 mm[Hg] Krislyn Aberegg PA Work Phone: [facility] 04-27-2024 12:55-0400 Body mass index (BMI) [Ratio] 27.23 kg/m2 Ricki Lafleur BIRTH CERTIFICATE CLERK.[employer] SUPERVISOR Work Phone: [facility] 04-27-2024 12:55-0400 Body temperature 97 [degF] Ricki Lafleur BIRTH CERTIFICATE CLERK.[employer] PRODUCTION SUPERVISOR Work Phone: [facility] 04-27-2024 12:55-0400 Body weight 69.7 kg Ricki Lafleur BIRTH CERTIFICATE CLERK.[employer]ODUCTION SUPERVISOR Work Phone: [facility] 04-27-2024 12:55-0400 Diastolic blood pressure 74 mm[Hg] Ricki Lafleur BIRTH CERTIFICATE CLERK.[employer]ODUCTION SUPERVISOR Work Phone: [facility] 04-27-2024 12:55-0400 Heart rate 82 /min Ricki Lafleur BIRTH CERTIFICATE CLERK.[employer] PRODUCTION SUPERVISOR Work Phone: [facility] 04-27-2024 12:55-0400 Respiratory rate 16 /min Ricki Lafleur BIRTH CERTIFICATE CLERK.[employer]ODUCTION SUPERVISOR Work Phone: [facility] 04-27-2024 12:55-0400 SaO2% (BldA) [Mass fraction] 97 % Ricki Lafleur BIRTH CERTIFICATE CLERK.[employer]ODUCTION SUPERVISOR Work Phone: [facility] 04-27-2024 12:55-0400 Systolic blood pressure 122 mm[Hg] Ricki Lafleur BIRTH CERTIFICATE CLERK.[employer]ODUCTION SUPERVISOR Work Phone: [facility] 03-28-2024 15:51-0400 Body height [facility]ERTIFICATE CLERK.[employer]I PRODUCTION SUPERVISOR Work Phone: [facility] 03-28-2024 15:51-0400 Body mass index (BMI) [Ratio] 27.64 kg/m2 [facility] BIRTH CERTIFICATE CLERK.[employer] PRODUCTION SUPERVISOR Work Phone: [facility] 03-28-2024 15:51-0400 Body weight 70.76 kg [facility] BIRTH CERTIFICATE CLERK.[employer] PRODUCTION SUPERVISOR Work Phone: [facility] 03-28-2024 15:51-0400 Diastolic blood pressure 66 mm[Hg] Mehran [facility] BIRTH CERTIFICATE CLERK.[employer] PRODUCTION SUPERVISOR Work Phone: [facility] 03-28-2024 15:51-0400 Heart rate 84 /min [facility] BIRTH CERTIFICATE CLERK.[employer]I PRODUCTION SUPERVISOR Work Phone: [facility] 03-28-2024 15:51-0400 Respiratory rate 18 /min [facility] BIRTH CERTIFICATE CLERK.SKI PRODUCTION SUPERVISOR Work Phone: [facility] 03-28-2024 15:51-0400 SaO2% (BldA) [Mass fraction] 99 % [facility] BIRTH CERTIFICATE CLERK.[employer]I PRODUCTION SUPERVISOR Work Phone: [facility] 03-28-2024 15:51-0400 Systolic blood pressure 101 mm[Hg] [facility] BIRTH CERTIFICATE CLERK.[employer]I PRODUCTION SUPERVISOR Work Phone: [facility] 01-23-2024 21:59-0400 Body height 160.02 cm [facility] 01-23-2024 21:59-0400 Body mass index (BMI) [Ratio] 28.3 kg/m2 [facility] 01-23-2024 21:59-0400 Body temperature 97 [degF] [facility] 01-23-2024 21:59-0400 Body weight 72.57 kg [facility] 01-23-2024 21:59-0400 Diastolic blood pressure 66 mm[Hg] [facility] 01-23-2024 21:59-0400 Heart rate 83 /min [facility] 01-23-2024 21:59-0400 Respiratory rate 16 /min [facility] 01-23-2024 21:59-0400 SaO2% (BldA) [Mass fraction] 99 % [facility] 01-23-2024 21:59-0400 Systolic blood pressure 112 mm[Hg] [facility] 12-25-2023 11:16-0400 Blood Pressure Cuff Size DR JESSICA SALAZAR DO [facility] 12-25-2023 11:16-[address] JESSICA SALAZAR DO [facility] 12-25-2023 11:16-[address] JESSICA SALAZAR DO [facility] 12-25-2023 11:16-0400 Body temperature 98.06 [degF] DR JESSICA SALAZAR DO [facility] 12-25-2023 11:16-0400 Diastolic Blood Pressure Non-Invasive 69 mm[Hg] DR JESSICA SALAZAR DO [facility] 12-25-2023 11:16-0400 Heart rate 66 /min DR JESSICA SALAZAR DO [facility] 12-25-2023 11:16-0400 Respiratory rate 18 /min DR JESSICA SALAZAR DO [facility] 12-25-2023 11:16-0400 Systolic Blood Pressure Non-Invasive 119 mm[Hg] DR JESSICA SALAZAR DO [facility] 03-06-2023 13:59-0400 Body temperature 98.6 [degF] DR JESSICA SALAZAR DO [facility] 03-06-2023 13:59-0400 Body weight [address] JESSICA SALAZAR DO [facility] 03-06-2023 13:59-0400 Diastolic Blood Pressure Non-Invasive [address] JESSICA SALAZAR DO [facility] 03-06-2023 13:59-0400 Heart rate 70 /min DR JESSICA SALAZAR DO [facility] 03-06-2023 13:59-0400 Respiratory rate 18 /min DR JESSICA SALAZAR DO [facility] 03-06-2023 13:59-0400 Systolic Blood Pressure Non-Invasive [address] JESSICA SALAZAR DO [facility] 03-04-2023 21:20-0400 Blood Pressure Cuff Size DR JESSICA SALAZAR DO [facility] 03-04-2023 21:20-[address] JESSICA SALAZAR DO [facility] 03-04-2023 21:20-[address] JESSICA SALAZAR DO [facility] 03-04-2023 21:20-0400 Body height [address] JESSICA SALAZAR DO [facility] 03-04-2023 21:20-0400 Body weight 76.[address] JESSICA SALAZAR DO [facility] 03-04-2023 21:20-0400 Diastolic Blood Pressure Non-Invasive [address] JESSICA SALAZAR DO [facility] 03-04-2023 21:20-0400 Heart rate 60 /min DR JESSICA SALAZAR DO [facility] 03-04-2023 21:20-0400 Reason For Taking VItal Signs DR JESSICA SALAZAR DO [facility] 03-04-2023 21:20-0400 Respiratory rate 18 /min DR JESSICA SALAZAR DO [facility] 03-04-2023 21:20-0400 Systolic Blood Pressure Non-Invasive [address] JESSICA SALAZAR DO [facility] 03-03-2023 11:48-0400 Body height 160 cm Jennifer Christina MD Work Phone: [facility] 03-03-2023 11:48-0400 Body weight 76.66 kg Jennifer Christina MD Work Phone: [facility] 03-03-2023 11:48-0400 Diastolic blood pressure 74 mm[Hg] Jennifer Christina MD Work Phone: [facility] 03-03-2023 11:48-0400 Heart rate 80 /min Jennifer Christina MD Work Phone: [facility] 03-03-2023 11:48-0400 Respiratory rate 18 /min Jennifer Christina MD Work Phone: [facility] 03-03-2023 11:48-0400 SaO2% (BldA) [Mass fraction] 97 % Jennifer Christina MD Work Phone: [facility] 03-03-2023 11:48-0400 Systolic blood pressure 116 mm[Hg] Jennifer Christina MD Work Phone: [facility] 02-07-2023 09:01-0400 Body height 160 cm Jennifer Christina MD Work Phone: [facility] 02-07-2023 09:01-0400 Body weight 76.66 kg Jennifer Christina MD Work Phone: [facility] 02-07-2023 09:01-0400 Diastolic blood pressure 65 mm[Hg] Jennifer Christina MD Work Phone: [facility] 02-07-2023 09:01-0400 Heart rate 77 /min Jennifer Christina MD Work Phone: [facility] 02-07-2023 09:01-0400 Respiratory rate 12 /min Jennifer Christina MD Work Phone: [facility] 02-07-2023 09:01-0400 SaO2% (BldA) [Mass fraction] 98 % Jennifer Christina MD Work Phone: [facility] 02-07-2023 09:01-0400 Systolic blood pressure 113 mm[Hg] Jennifer Christina MD Work Phone: [facility] 12-26-2022 11:37-0400 Body temperature 98.24 [degF] DR RONALDO CANALES MD [facility] 12-26-2022 11:37-0400 Diastolic Blood Pressure Non-Invasive [address] RONALDO CANALES MD [facility] 12-26-2022 11:37-0400 Heart rate 91 /min DR RONALDO CANALES MD [facility] 12-26-2022 11:37-0400 Respiratory rate 16 /min DR RONALDO CANALES MD [facility] 12-26-2022 11:37-0400 Systolic Blood Pressure Non-Invasive [address] RONALDO CANALES MD [facility] 11-12-2022 09:12-0500 Body weight 78.7 kg Kathy Zayas MD Work Phone: [facility] 11-12-2022 09:12-0500 Diastolic blood pressure 82 mm[Hg] Kathy Zayas MD Work Phone: [facility] 11-12-2022 09:12-0500 Heart rate 75 /min Kathy Zayas MD Work Phone: [facility] 11-12-2022 09:12-0500 SaO2% (BldA) [Mass fraction] 100 % Kathy Zayas MD Work Phone: [facility] 11-12-2022 09:12-0500 Systolic blood pressure 115 mm[Hg] Kathy Zayas MD Work Phone: [facility] 11-01-2022 09:34-0500 Body height 160 cm Maria Luisa Tyler MD Work Phone: [facility] 11-01-2022 09:34-0500 Body temperature 98.2 [degF] Maria Luisa Tyler MD Work Phone: [facility] 11-01-2022 09:34-0500 Body weight 78.47 kg Maria Luisa Tyler MD Work Phone: [facility] 11-01-2022 09:34-0500 Diastolic blood pressure 60 mm[Hg] Maria Luisa Tyler MD Work Phone: [facility] 11-01-2022 09:34-0500 Heart rate 80 /min Maria Luisa Tyler MD Work Phone: [facility] 11-01-2022 09:34-0500 Respiratory rate 13 /min Maria Luisa Tyler MD Work Phone: [facility] 11-01-2022 09:34-0500 Systolic blood pressure 118 mm[Hg] Maria Luisa Tyler MD Work Phone: [facility] 10-19-2022 11:17-0500 Body weight 76.66 kg Shira Older BIRTH CERTIFICATE CLERK.[employer] Work Phone: [facility] 10-19-2022 11:17-0500 Diastolic blood pressure 74 mm[Hg] Shira Older BIRTH CERTIFICATE CLERK.[employer] SUPERVIS[employer] Work Phone: [facility] 10-19-2022 11:17-0500 Heart rate 82 /min Shira Older BIRTH CERTIFICATE CLERK.[employer] SUPERVIS[employer] Work Phone: [facility] 10-19-2022 11:17-0500 SaO2% (BldA) [Mass fraction] 98 % Shira Older BIRTH CERTIFICATE CLERK.[employer] SUPERVIS[employer] Work Phone: [facility] 10-19-2022 11:17-0500 Systolic blood pressure 108 mm[Hg] Shira Older BIRTH CERTIFICATE CLERK.[employer] SUPERVIS[employer] Work Phone: [facility] 10-07-2022 15:38-0500 Diastolic Blood Pressure Non-Invasive [address] MAVIS SHEPARD MD [facility] 10-07-2022 15:38-0500 Heart rate 84 /min DR MAVIS SHEPARD MD [facility] 10-07-2022 15:38-0500 Respiratory rate 20 /min DR MAVIS SHEPARD MD [facility] 10-07-2022 15:38-0500 Systolic Blood Pressure Non-Invasive [address] MAVIS SHEPARD MD [facility] 10-07-2022 12:34-0500 Body height 77.[address] MAVIS SHEPARD MD [facility] 10-07-2022 12:34-0500 Body temperature 98.24 [degF] DR MAVIS SHEPARD MD [facility] 10-07-2022 12:34-0500 Body weight 77.[address] MAVIS SHEPARD MD [facility] 10-07-2022 12:34-0500 Diastolic Blood Pressure Non-Invasive [address] MAVIS SHEPARD MD [facility] 10-07-2022 12:34-0500 Heart rate 83 /min DR MAVIS SHEPARD MD [facility] 10-07-2022 12:34-0500 Respiratory rate 20 /min DR MAVIS SHEPARD MD [facility] 10-07-2022 12:34-0500 Systolic Blood Pressure Non-Invasive [address] MAVIS SHEPARD MD [facility] 09-27-2022 21:37-0500 Body temperature 98.06 [degF] CEZAR FRENCH MD [facility] 09-27-2022 21:37-0500 Diastolic Blood Pressure Non-Invasive 82 1 CEZAR FRENCH MD [facility] 09-27-2022 21:37-0500 Heart rate 77 /min CEZAR FRENCH MD [facility] 09-27-2022 21:37-0500 Respiratory rate 18 /min CEZAR FRENCH MD [facility] 09-27-2022 21:37-0500 Systolic Blood Pressure Non-Invasive 115 1 CEZAR FRENCH MD [facility] 09-17-2022 16:42-0500 Diastolic blood pressure 75 mm[Hg] Dr. Roger Cohen Work Phone: [facility] Work Phone: 09-17-2022 16:42-0500 Heart rate 88 /min Dr. Roger Cohen Work Phone: [facility] Work Phone: 09-17-2022 16:42-0500 Respiratory rate 16 /min Dr. Roger Cohen Work Phone: [facility] Work Phone: 09-17-2022 16:42-0500 SaO2% (BldA) [Mass fraction] 99 % Dr. Roger Cohen Work Phone: [facility] Work Phone: 09-17-2022 16:42-0500 Systolic blood pressure 110 mm[Hg] Dr. Roger Cohen Work Phone: [facility] Work Phone: 09-17-2022 11:49-0500 Body height 160.[address] Roger Cohen Work Phone: [facility] Work Phone: 09-17-2022 11:49-0500 Body mass index (BMI) [Ratio] 28.3 kg/m2 Dr. Roger Cohen Work Phone: [facility] Work Phone: 09-17-2022 11:49-0500 Body temperature 97.8 [degF] Dr. Roger Cohen Work Phone: [facility] Work Phone: 09-17-2022 11:49-0500 Body weight 72.[address] Roger Cohen Work Phone: [facility] Work Phone: 08-24-2022 09:19-0500 Body mass index (BMI) [Ratio] 28.7 kg/m2 Dr. Roger Cohen Work Phone: [facility] Work Phone: 08-24-2022 09:19-0500 Body weight 73.[address] Roger Cohen Work Phone: [facility] Work Phone: 08-24-2022 09:19-0500 Diastolic blood pressure 68 mm[Hg] Dr. Roger Cohen Work Phone: [facility] Work Phone: 08-24-2022 09:19-0500 Systolic blood pressure 110 mm[Hg] Dr. Roger Cohen Work Phone: [facility] Work Phone: 08-03-2022 09:22-0400 Body temperature 97.2 [degF] Livia Trivedi APRN.[employer]PER[employer] Work Phone: [facility] 08-03-2022 09:22-0400 Body weight 72.76 kg Livia Trivedi BIRTH CERTIFICATE CLERK.[employer] SUPERVIS[employer] Work Phone: [facility] 08-03-2022 09:22-0400 Diastolic blood pressure 76 mm[Hg] Livia Trivedi BIRTH CERTIFICATE CLERK.[employer] SUPERVISOR Work Phone: [facility] 08-03-2022 09:22-0400 Heart rate 73 /min Livia Trivedi BIRTH CERTIFICATE CLERK.[employer] SUPERVISOR Work Phone: [facility] 08-03-2022 09:22-0400 Respiratory rate 18 /min Livia Trivedi BIRTH CERTIFICATE CLERK.[employer] SUPERVIS[employer] Work Phone: [facility] 08-03-2022 09:22-0400 SaO2% (BldA) [Mass fraction] 97 % Livia Trivedi BIRTH CERTIFICATE CLERK.[employer] SUPERVISOR Work Phone: [facility] 08-03-2022 09:22-0400 Systolic blood pressure 102 mm[Hg] Livia Trivedi BIRTH CERTIFICATE CLERK.[employer] SUPERVISOR Work Phone: [facility] 07-07-2022 10:36-0400 Body mass index (BMI) [Ratio] 27.4 kg/m2 Dr. Roger Cohen Work Phone: [facility] Work Phone: 07-07-2022 10:36-0400 Body weight 70.[address] Roger Cohen Work Phone: [facility] Work Phone: 07-07-2022 10:36-0400 Diastolic blood pressure 84 mm[Hg] Dr. Roger Cohen Work Phone: [facility] Work Phone: 07-07-2022 10:36-0400 Systolic blood pressure 120 mm[Hg] Dr. Roger Cohen Work Phone: [facility] Work Phone: 06-26-2022 08:44-0400 Diastolic blood pressure 53 mm[Hg] Dr. Roger Cohen Work Phone: [facility] Work Phone: 06-26-2022 08:44-0400 Heart rate 73 /min Dr. Roger Cohen Work Phone: [facility] Work Phone: 06-26-2022 08:44-0400 Systolic blood pressure 99 mm[Hg] Dr. Roger Cohen Work Phone: [facility] Work Phone: 06-25-2022 20:13-0400 Body temperature 98 [degF] Dr. Roger Cohen Work Phone: [facility] Work Phone: 06-25-2022 20:13-0400 Diastolic blood pressure 57 mm[Hg] Dr. Roger Cohen Work Phone: [facility] Work Phone: 06-25-2022 20:13-0400 Heart rate 67 /min Dr. Roger Cohen Work Phone: [facility] Work Phone: 06-25-2022 20:13-0400 Respiratory rate 16 /min Dr. Roger Cohen Work Phone: [facility] Work Phone: 06-25-2022 20:13-0400 SaO2% (BldA) [Mass fraction] 98 % Dr. Roger Cohen Work Phone: [facility] Work Phone: 06-25-2022 20:13-0400 Systolic blood pressure 106 mm[Hg] Dr. Roger Cohen Work Phone: [facility] Work Phone: 06-25-2022 16:57-0400 Diastolic blood pressure 65 mm[Hg] Dr. Roger Cohen Work Phone: [facility] Work Phone: 06-25-2022 16:57-0400 Systolic blood pressure 118 mm[Hg] Dr. Roger Cohen Work Phone: [facility] Work Phone: 06-24-2022 16:03-0400 Body height 160.[address] Roger Cohen Work Phone: [facility] Work Phone: 06-24-2022 16:03-0400 Body mass index (BMI) [Ratio] 31.2 kg/m2 Dr. Roger Cohen Work Phone: [facility] Work Phone: 06-24-2022 16:03-0400 Body weight [address] Roger Cohen Work Phone: [facility] Work Phone: 06-23-2022 15:11-0400 Body temperature 98.4 [degF] Yvonne Praisler-Wood BIRTH CERTIFICATE CLERK.[employer] SUPERVISOR Work Phone: [facility] 06-23-2022 15:11-0400 Body weight 80.83 kg Yvonne Praisler-Wood BIRTH CERTIFICATE CLERK.[employer] SUPERVISOR Work Phone: [facility] 06-23-2022 15:11-0400 Diastolic blood pressure 76 mm[Hg] Yvonne Praisler-Wood BIRTH CERTIFICATE CLERK.[employer] SUPERVISOR Work Phone: [facility] 06-23-2022 15:11-0400 Heart rate 95 /min Yvonne Praisler-Wood BIRTH CERTIFICATE CLERK.[employer] SUPERVISOR Work Phone: [facility] 06-23-2022 15:11-0400 Respiratory rate 21 /min Yvonne Praisler-Wood BIRTH CERTIFICATE CLERK.[employer] SUPERVISOR Work Phone: [facility] 06-23-2022 15:11-0400 SaO2% (BldA) [Mass fraction] 98 % Yvonne Praisler-Wood BIRTH CERTIFICATE CLERK.[employer] SUPERVISOR Work Phone: [facility] 06-23-2022 15:11-0400 Systolic blood pressure 104 mm[Hg] Yvonne Praisler-Wood BIRTH CERTIFICATE CLERK.[employer] SUPERVISOR Work Phone: [facility] 06-20-2022 21:17-0400 Heart rate 99 /min Dr. Roger Cohen Work Phone: [facility] Work Phone: 06-20-2022 21:17-0400 SaO2% (BldA) [Mass fraction] 96 % Dr. Roger Cohen Work Phone: [facility] Work Phone: 06-20-2022 20:56-0400 Body temperature 99.6 [degF] Dr. Roger Cohen Work Phone: [facility] Work Phone: 06-20-2022 20:56-0400 Diastolic blood pressure 55 mm[Hg] Dr. Roger Cohen Work Phone: [facility] Work Phone: 06-20-2022 20:56-0400 Systolic blood pressure 105 mm[Hg] Dr. Roger Cohen Work Phone: [facility] Work Phone: 06-20-2022 20:43-0400 Body height 160.[address] Roger Cohen Work Phone: [facility] Work Phone: 06-20-2022 20:43-0400 Body mass index (BMI) [Ratio] 33.5 kg/m2 Dr. Roger Cohen Work Phone: [facility] Work Phone: 06-20-2022 20:43-0400 Body weight [address] Roger Cohen Work Phone: [facility] Work Phone: 06-20-2022 13:15-0400 Heart rate 98 /min Emily Jacobs MD Work Phone: [facility] 06-20-2022 08:37-0400 Body temperature 98.71 [degF] Emily Jacobs MD Work Phone: [facility] 06-20-2022 08:37-0400 Diastolic blood pressure 44 mm[Hg] Emily Jacobs MD Work Phone: [facility] 06-20-2022 08:37-0400 Respiratory rate 18 /min Emily Jacobs MD Work Phone: [facility] 06-20-2022 08:37-0400 SaO2% (BldA) [Mass fraction] 98 % Emily Jacobs MD Work Phone: [facility] 06-20-2022 08:37-0400 Systolic blood pressure 93 mm[Hg] Emily Jacobs MD Work Phone: [facility] 06-19-2022 18:17-0400 Body height 160 cm Emily Jacobs MD Work Phone: [facility] 06-19-2022 18:17-0400 Body mass index (BMI) [Ratio] 31.71 kg/m2 Emily Jacobs MD Work Phone: [facility] 06-19-2022 18:17-0400 Body weight 81.19 kg Emily Jacobs MD Work Phone: [facility] 06-19-2022 11:13-0400 Body temperature 98.4 [degF] Dr. Roger Cohen Work Phone: [facility] Work Phone: 06-19-2022 11:13-0400 Diastolic blood pressure 61 mm[Hg] Dr. Roger Cohen Work Phone: [facility] Work Phone: 06-19-2022 11:13-0400 Heart rate 101 /min Dr. Roger Cohen Work Phone: [facility] Work Phone: 06-19-2022 11:13-0400 SaO2% (BldA) [Mass fraction] 98 % Dr. Roger Cohen Work Phone: [facility] Work Phone: 06-19-2022 11:13-0400 Systolic blood pressure 111 mm[Hg] Dr. Roger Cohen Work Phone: [facility] Work Phone: 06-18-2022 21:45-0400 Body height 160.[address] Roger Cohen Work Phone: [facility] Work Phone: 06-18-2022 21:45-0400 Body mass index (BMI) [Ratio] 31.8 kg/m2 Dr. Roger Cohen Work Phone: [facility] Work Phone: 06-18-2022 21:45-0400 Body weight 81.[address] Roger Cohen Work Phone: [facility] Work Phone: 06-18-2022 12:26-0400 Body height 160.[address] Roger Cohen Work Phone: [facility] Work Phone: 06-18-2022 12:26-0400 Body mass index (BMI) [Ratio] 31.6 kg/m2 Dr. Roger Cohen Work Phone: [facility] Work Phone: 06-18-2022 12:26-0400 Body weight 81.[address] Roger Cohen Work Phone: [facility] Work Phone: 06-18-2022 11:39-0400 Body mass index (BMI) [Ratio] 31.7 kg/m2 Dr. Roger Cohen Work Phone: [facility] Work Phone: 06-18-2022 11:39-0400 Body weight 81.[address] Roger Cohen Work Phone: [facility] Work Phone: 06-18-2022 11:39-0400 Diastolic blood pressure 70 mm[Hg] Dr. Roger Cohen Work Phone: [facility] Work Phone: 06-18-2022 11:39-0400 Systolic blood pressure 112 mm[Hg] Dr. Roger Cohen Work Phone: [facility] Work Phone: 06-04-2022 15:24-0400 Body mass index (BMI) [Ratio] 30.8 kg/m2 Dr. Roger Cohen Work Phone: [facility] Work Phone: 06-04-2022 15:24-0400 Body weight 78.[address] Roger Cohen Work Phone: [facility] Work Phone: 05-21-2022 11:49-0400 Body weight 78.[address] Roger Cohen Work Phone: [facility] Work Phone: 05-21-2022 11:49-0400 Diastolic blood pressure 70 mm[Hg] Dr. Roger Cohen Work Phone: [facility] Work Phone: 05-21-2022 11:49-0400 Systolic blood pressure 126 mm[Hg] Dr. Roger Cohen Work Phone: [facility] Work Phone: 05-21-2022 11:19-0400 Body height 160.[address] Roger Cohen Work Phone: [facility] Work Phone: 05-07-2022 11:51-0400 Body mass index (BMI) [Ratio] 30.2 kg/m2 Dr. Roger Cohen Work Phone: [facility] Work Phone: 05-07-2022 11:51-0400 Body weight 77.[address] Roger Cohen Work Phone: [facility] Work Phone: 05-07-2022 11:51-0400 Diastolic blood pressure 66 mm[Hg] Dr. Roger Cohen Work Phone: [facility] Work Phone: 05-07-2022 11:51-0400 Systolic blood pressure 110 mm[Hg] Dr. Roger Cohen Work Phone: [facility] Work Phone: 04-09-2022 11:42-0400 Body mass index (BMI) [Ratio] 29.4 kg/m2 Dr. Roger Cohen Work Phone: [facility] Work Phone: 04-09-2022 11:42-0400 Body weight 75.[address] Roger Cohen Work Phone: [facility] Work Phone: 04-09-2022 11:42-0400 Diastolic blood pressure 68 mm[Hg] Dr. Roger Cohen Work Phone: [facility] Work Phone: 04-09-2022 11:42-0400 Systolic blood pressure 104 mm[Hg] Dr. Roger Cohen Work Phone: [facility] Work Phone: 03-27-2022 12:09-0400 Diastolic blood pressure 74 mm[Hg] Dr. Roger Cohen Work Phone: [facility] Work Phone: 03-27-2022 12:09-0400 Heart rate 72 /min Dr. Roger Cohen Work Phone: [facility] Work Phone: 03-27-2022 12:09-0400 Respiratory rate 15 /min Dr. Roger Cohen Work Phone: [facility] Work Phone: 03-27-2022 12:09-0400 SaO2% (BldA) [Mass fraction] 98 % Dr. Roger Cohen Work Phone: [facility] Work Phone: 03-27-2022 12:09-0400 Systolic blood pressure 126 mm[Hg] Dr. Roger Cohen Work Phone: [facility] Work Phone: 03-27-2022 07:38-0400 Body mass index (BMI) [Ratio] 28.3 kg/m2 Dr. Roger Cohen Work Phone: [facility] Work Phone: 03-27-2022 07:38-0400 Body temperature 97.8 [degF] Dr. Roger Cohen Work Phone: [facility] Work Phone: 03-27-2022 07:38-0400 Body weight 72.[address] Roger Cohen Work Phone: [facility] Work Phone: 03-11-2022 10:32-0400 Body mass index (BMI) [Ratio] 29.2 kg/m2 Dr. Roger Cohen Work Phone: [facility] Work Phone: 03-11-2022 10:32-0400 Body weight 75.[address] Roger Cohen Work Phone: [facility] Work Phone: 03-11-2022 10:32-0400 Diastolic blood pressure 80 mm[Hg] Dr. Roger Cohen Work Phone: [facility] Work Phone: 03-11-2022 10:32-0400 Systolic blood pressure 130 mm[Hg] Dr. Roger Cohen Work Phone: [facility] Work Phone: 02-12-2022 07:26-0400 Body temperature 98.2 [degF] Dr. Roger Cohen Work Phone: [facility] Work Phone: 02-12-2022 07:26-0400 Diastolic blood pressure 59 mm[Hg] Dr. Roger Cohen Work Phone: [facility] Work Phone: 02-12-2022 07:26-0400 Heart rate 71 /min Dr. Roger Cohen Work Phone: [facility] Work Phone: 02-12-2022 07:26-0400 Respiratory rate 16 /min Dr. Roger Cohen Work Phone: [facility] Work Phone: 02-12-2022 07:26-0400 SaO2% (BldA) [Mass fraction] 99 % Dr. Roger Cohen Work Phone: [facility] Work Phone: 02-12-2022 07:26-0400 Systolic blood pressure 106 mm[Hg] Dr. Roger Cohen Work Phone: [facility] Work Phone: 02-11-2022 16:22-0400 Body height 160.[address] Roger Cohen Work Phone: [facility] Work Phone: 02-11-2022 16:22-0400 Body mass index (BMI) [Ratio] 28.8 kg/m2 Dr. Roger Cohen Work Phone: [facility] Work Phone: 02-11-2022 16:22-0400 Body weight 73.[address] Roger Cohen Work Phone: [facility] Work Phone: 02-11-2022 15:37-0400 Body temperature 98 [degF] Dr. Roegr Cohen Work Phone: [facility] Work Phone: 02-11-2022 15:37-0400 Diastolic blood pressure 54 mm[Hg] Dr. Roger Cohen Work Phone: [facility] Work Phone: 02-11-2022 15:37-0400 Heart rate 78 /min Dr. Roger Cohen Work Phone: [facility] Work Phone: 02-11-2022 15:37-0400 Respiratory rate 19 /min Dr. Roger Cohen Work Phone: [facility] Work Phone: 02-11-2022 15:37-0400 SaO2% (BldA) [Mass fraction] 100 % Dr. Roger Cohen Work Phone: [facility] Work Phone: 02-11-2022 15:37-0400 Systolic blood pressure 110 mm[Hg] Dr. Roger Cohen Work Phone: [facility] Work Phone: 02-11-2022 10:26-0400 Body height 160.[address] Roger Cohen Work Phone: [facility] Work Phone: 02-11-2022 10:26-0400 Body mass index (BMI) [Ratio] 28.9 kg/m2 Dr. Roger Cohen Work Phone: [facility] Work Phone: 02-11-2022 10:26-0400 Body weight [address] Roger Cohen Work Phone: [facility] Work Phone: 02-10-2022 16:14-0400 Body mass index (BMI) [Ratio] 28.8 kg/m2 Dr. Roger Cohen Work Phone: [facility] Work Phone: 02-10-2022 16:14-0400 Body weight 73.[address] Roger Cohen Work Phone: [facility] Work Phone: 02-10-2022 16:14-0400 Diastolic blood pressure 82 mm[Hg] Dr. Roger Cohen Work Phone: [facility] Work Phone: 02-10-2022 16:14-0400 Systolic blood pressure 114 mm[Hg] Dr. Roger Cohen Work Phone: [facility] Work Phone: 02-10-2022 16:14-0400 Body mass index (BMI) [Ratio] 28.8 kg/m2 Dr. Roger Cohen Work Phone: [facility] Work Phone: 02-10-2022 16:14-0400 Body weight 73.[address] Roger Cohen Work Phone: [facility] Work Phone: 02-10-2022 16:14-0400 Diastolic blood pressure 82 mm[Hg] Dr. Roger Cohen Work Phone: [facility] Work Phone: 02-10-2022 16:14-0400 Systolic blood pressure 114 mm[Hg] Dr. Roger Cohen Work Phone: [facility] Work Phone: 01-27-2022 15:50-0400 Body mass index (BMI) [Ratio] 28.8 kg/m2 Dr. Roger Cohen Work Phone: [facility] Work Phone: 01-27-2022 15:50-0400 Body weight 73.[address] Roger Cohen Work Phone: [facility] Work Phone: 01-27-2022 15:50-0400 Diastolic blood pressure 80 mm[Hg] Dr. Roger Cohen Work Phone: [facility] Work Phone: 01-27-2022 15:50-0400 Systolic blood pressure 138 mm[Hg] Dr. Roger Cohen Work Phone: [facility] Work Phone: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 09-23-2022 End: 09-23-2022 [address]ulatory [facility] Start: 09-17-2022 End: 09-17-2022 Emergency department patient visit Dr. Roger Cohen Work Phone: [facility] Start: 08-24-2022 End: 08-24-[address] Roger Cohen Work Phone: [facility] Start: 08-03-2022 End: 08-03-2022 Patient encounter procedure Livia Trivedi APRN.CNP Work Phone: [facility] Comment on above: Acute cough (Primary Dx); URI, acute Start: 08-03-2022 End: 08-03-2022 Subsequent hospital visit by physician [facility] Work Phone: Radiology Comment on above: Acute cough [R05.1] Start: 07-07-2022 End: 07-07-[address] Roger Cohen Work Phone: [facility] Start: 07-06-2022 Non-patient / Non-visit Dr. Mariely Cohen Work Phone: [facility] Start: 06-25-2022 Non-patient / Non-visit Dr. Mariely Cohen Work Phone: [facility] Start: 06-24-2022 End: 06-25-2022 Evaluation and management of inpatient Dr. Roger Cohen Work Phone: [facility] Start: 06-24-2022 Non-patient / Non-visit Dr. Mariely Cohen Work Phone: [facility] Start: 06-23-2022 End: 06-23-2022 Patient encounter procedure Yvonne Eagle APRN.CNP Work Phone: [facility] Comment on above: Viral illness (Prima ry Dx); Sore throat Start: 06-22-2022 End: 06-22-2022 [facility]ulatory [facility] Start: 06-21-2022 Non-patient / Non-visit Dr. Mariely Cohen Work Phone: [facility] Start: 06-20-2022 End: 06-20-[address] Roger Cohen Work Phone: [facility] Work Phone: Start: 06-20-2022 End: 06-20-[address] Roger Cohen Work Phone: [facility], Outpatients Start: 06-20-2022 Non-patient / Non-visit Dr. Mariely Cohen Work Phone: [facility] Start: 06-19-2022 End: 06-20-2022 Evaluation and management of inpatient Emily Jacobs [facility] Start: 06-19-2022 End: 06-20-2022 Evaluation and management of inpatient Emily Jacobs MD Work Phone: [facility] Start: 06-19-2022 Non-patient / Non-visit Dr. Mariely Cohen Work Phone: [facility] Start: 06-18-2022 End: 06-19-[address] Roger Cohen Work Phone: [facility] Work Phone: Start: 06-18-2022 End: 06-19-[address] Roger Cohen Work Phone: [facility], Outpatients Start: 06-18-2022 End: 06-18-[address] Roger Cohen Work Phone: [facility] Work Phone: Start: 06-18-2022 End: 06-18-[address] Roger Cohen Work Phone: [facility], Outpatients Start: 06-15-2022 End: 06-15-2022 ambulatory EMILY A [facility] Start: 06-11-2022 End: 06-11-2022 [facility] Start: 06-09-2022 End: 06-09-2022 [facility] Start: 06-04-2022 End: 06-04-[address] Roger Cohen Work Phone: [facility] Start: 06-04-2022 End: 06-04-2022 [facility] Start: 06-01-2022 End: 06-01-2022 [facility] Start: 05-28-2022 End: 05-28-2022 [facility] Start: 05-27-2022 End: 05-27-[address] Roger Cohen Work Phone: [facility]Laboratory Start: 05-25-2022 End: 05-25-2022 ambulatory ROGER [facility] Start: 05-21-2022 End: 05-21-[address] Roger Cohen Work Phone: [facility] Work Phone: Start: 05-21-2022 End: 05-21-[address] Roger Cohen Work Phone: [facility] Start: 05-07-2022 End: 05-07-[address] Roger Cohen Work Phone: [facility] Start: 04-28-2022 End: 04-28-2022 ambulatory ROGER [facility] Start: 04-13-2022 End: 04-13-2022 ambulatory EMILY A [facility] Start: 04-09-2022 End: 04-09-[address] Roger Cohen Work Phone: [facility] Start: 03-27-2022 End: 03-27-2022 Emergency department patient visit Dr. Roger Cohen Work Phone: [facility] Start: 03-23-2022 End: 03-23-2022 ambulatory EMILY [facility] Start: 03-11-2022 End: 03-11-[address] Roger Cohen Work Phone: [facility] Start: 02-12-2022 Non-patient / Non-visit Dr. Mariely Cohen Work Phone: [facility] Start: 02-12-2022 Non-patient / Non-visit Dr. Mariely Cohen Work Phone: [facility] Start: 02-11-2022 Non-patient / Non-visit Dr. Mariely Cohen Work Phone: [facility] Start: 02-11-2022 Non-patient / Non-visit Dr. Mariely Cohen Work Phone: [facility] Start: 02-11-2022 End: 02-12-2022 Evaluation and management of inpatient Dr. Roger Cohen Work Phone: [facility]-Medical Surgical 3 Start: 02-10-2022 End: 02-10-[address] Roger Cohen Work Phone: [facility] Start: 01-27-2022 End: 01-27-[address] Roger Cohen Work Phone: [facility] Start: 01-14-2022 End: 01-14-[address] Roger Cohen Work Phone: [facility] Start: 01-07-2022 End: 01-07-2022 Emergency department patient visit Dr. Roger Cohen Work Phone: [facility] Start: 01-04-2022 End: 01-04-[address] [facility] Start: 01-04-2022 End: 01-04-[address] Roger Cohen Work Phone: [facility] Start: 12-28-2021 End: 12-28-[address] [facility] Start: 12-21-2021 Non-patient / Non-visit Dr. Mariely Cohen Work Phone: [facility] Start: 12-20-2021 End: 12-20-2021 Emergency department patient visit DR RONALDO CANALES MD [facility] Start: 12-15-2021 End: 12-15-2021 Emergency department patient visit Dr. Roger Cohen [facility] Start: 12-11-2021 End: 12-11-[address] Roger [facility] Start: 12-07-2021 End: 12-07-[address] Roger [facility] Start: 12-05-2021 End: 12-05-[address] Roger [facility] Start: 10-09-2021 End: 10-09-2021 Emergency department patient visit Dr. Roger Cohen [facility] Start: 10-07-2021 End: 10-07-2021 Emergency department patient visit Dr. Roger Cohen [facility] Start: 10-07-2021 End: 10-07-2021 Emergency department patient visit FANNY JEAN MD [facility] Start: 07-20-2021 End: 07-20-2021 Subsequent hospital visit by physician [facility] Work Phone: Radiology Comment on above: Pelvic pain [R10.2] Start: 07-10-2021 End: 07-11-2021 Emergency department patient visit Nicolás Wiley MD Work Phone: [facility] Comment on above: Abdominal pain, epig astric (Primary Dx); Pelvic pain Start: 05-11-2021 End: 05-11-2021 Emergency department patient visit Angie Alejandro MD Work Phone: [facility] Comment on above: Strain of lumbar reg ion, initial encounter (Primary Dx) Start: 10-17-2019 End: 10-17-2019 Patient encounter procedure Brad Majano MD Work Phone: [facility] Work Phone: Start: 07-27-2018 End: 03-16-2019 Patient requested procedure Jennifer Christina MD Work Phone: [facility] Procedures Date Procedure Procedure Detail Performing Clinician [...] exam ches t 2 views Ricki Lafleur BIRTH CERTIFICATE CLERK.[employer]I PRODUCTION SUPERVISOR Work Phone: Start: 01-23-2024 CT angiography of ne ck vessels Start: 12-10-2022 Mri brain brain stem w/o w/contrast material Kathy Zayas MD Work Phone: Start: 08-03-2022 Radiologic exam ches t 2 views Livia Trivedi BIRTH CERTIFICATE CLERK.SKI PRODUCTION SUPERVISOR Work Phone: Start: 06-23-2022 STREP A MOLECULAR (POC) Yvonne Eagle BIRTH CERTIFICATE CLERK.[employer]I PRODUCTION SUPERVISOR Work Phone: Start: 06-20-2022 Fibrinogen activity [...] Phone: Start: 06-19-2022 Blood count complete automated Jaswinedr Maher DO Work Phone: Start: 06-19-2022 Blood [...] spine lumbosac ral 2/3 views Mary Jordan BIRTH CERTIFICATE CLERK.SKI PRODUCTION SUPERVISOR Work Phone: Start: 07-10-2021 Us transvaginal [...] Work Phone: Start: 05-21-2032 Urine microalbumin profile [facility] mig[facility] Start: 02-14-2026 DTaP/Tdap/Td vaccine (2 - Td or Tdap) DTaP/Tdap/Td vaccine (2 - Td or Tdap) [facility] Start: 2025 Annual PCP Team Chronic Disease Visit Annual PCP Team Chronic Disease Visit [facility] Start: 07-12-2025 Annual PCP Team Chronic Disease Visit Annual PCP Team Chronic Disease Visit [facility] Start: 07-04-2025 Annual PCP Team Chronic Disease Visit Annual PCP Team Chronic Disease Visit [facility] Start: 06-19-2025 Annual PCP Team Chronic Disease Visit Annual PCP Team Chronic Disease Visit [facility] Start: 06-06-2025 HPV TESTING HPV TESTING [facility] Start: 06-06-2025 PAP TESTING PAP TESTING [facility] Start: 06-06-2025 Screening for malignant neoplasm of cervix [facility] Start: 05-21-2025 ambulatory Ambulatory Facility:[facility] Start: 04-08-2025 [facility] Start: 03-28-2025 Annual PCP Team Chronic Disease Visit Annual PCP Team Chronic Disease Visit [facility] Start: 03-22-2025 [facility] Start: 03-21-2025 [facility] Start: 03-06-2025 [facility] Start: 02-21-2025 Annual PCP Team Chronic Disease Visit Annual PCP Team Chronic Disease Visit [facility] Start: 02-21-2025 End: 02-21-2025 Patient encounter procedure 02/21/2025 10:20 AM EDT Office Visit [facility] ([place]) [address] [place] [address] Jennifer Werner MD [address] [place] [address] ED follow up back pain [facility] ([place]) Comment on above: ED follow up back pain Start: 02-18-2025 [facility] Start: 01-23-2025 End: 01-23-2025 Patient encounter procedure 01/23/2025 9:00 AM EDT [facility] [address] [place] [address] Jennifer Werner MD [address] [place] [address] 10 week depression/anxiety (overdue for physical) [facility] Comment on above: 10 week depression/anxiety (overdue for physical) Start: 12-25-2024 End: 12-25-2024 Patient encounter procedure 12/25/2024 3:20 PM EDT [facility] [address] [place] [address] Jennifer eWrner MD [address] [place] [address] 10 week depression/anxiety (overdue for physical) [facility] ([place]) Comment on above: 10 week depression/anxiety (overdue for physical) Start: 12-21-2024 End: 12-21-2024 Patient encounter procedure 12/21/2024 9:20 AM EDT Office Visit [facility] [place] [facility] [address] [place] [address] Maria Luisa Tyler MD [address] [place] [address] 6 mo f/up post Fortino. pe [facility] [place] [facility] Comment on above: 6 mo f/up post Fortino. pe Start: 12-15-2024 Annual PCP Team Chronic Disease Visit Annual PCP Team Chronic Disease Visit [facility] Start: 11-22-2024 [facility] Start: 2024 End: 01-15-2025 25-hydroxyvitamin D3 [Mass/volume] in Serum or Plasma VITAMIN D 25 HYDROXY Lab Routine Encounter for routine adult health examination without abnormal findings Expected: 2024, Expires: 01/15/2025 [facility] Comment on above: Expected: 2024, Expires: Start: 2024 End: 01-15-2025 CBC panel - Blood by Automated count COMPLETE BLOOD COUNT Lab Routine Encounter for routine adult health examination without abnormal findings Expected: 2024, Expires: 01/15/2025 [facility] Comment on above: Expected: 2024, Expires: Start: [...] findings Mixed hyperlipidemia Expected: 2024, Expires: 01/15/2025 [facility] Work Phone: Comment on above: Expected: 2024, Expires: Start: 2024 End: 01-15-2025 Hemoglobin A1c in Blood HEMOGLOBIN A1C Lab Routine 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 Encounter for routine adult health examination without abnormal findings Screening for diabetes mellitus Expected: 2024, Expires: 01/15/2025 [facility] Comment on above: Expected: 2024, Expires: Start: 2024 End: 01-15-2025 Lipid 1996 panel - Serum or Plasma LIPID PANEL BASIC Lab Routine 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 Encounter for routine adult health examination without abnormal findings Mixed hyperlipidemia Expected: 2024, Expires: 01/15/2025 [facility] Comment on above: Expected: 2024, Expires: Start: 2024 End: 01-15-2025 Thyrotropin [Units/volume] in Serum or Plasma THYROID STIMULATING HORMONE Lab Routine Bipolar disorder, current episode mixed, moderate (HCC) Generalized anxiety disorder 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 Encounter for routine adult health examination without abnormal findings Expected: 2024, Expires: 01/15/2025 [facility] Comment on above: Expected: 2024, Expires: Start: 2024 End: 2024 Patient encounter procedure [facility] ([place]) Comment on above: Return in about 7 weeks (around 08/28/20 24) for Depression/Anxiety (overdue for physical) Start: 10-14-2024 Annual PCP Team Chronic Disease Visit Annual PCP Team Chronic Disease Visit [facility] Start: 09-11-2024 Urine microalbumin profile DTAP,TDAP,TD (1 - Tdap) [facility] Comment on above: Postponed from 07/04/2014 (Postponed To Appropriate Date) Start: 08-28-2024 End: 08-28-2024 Patient encounter procedure [facility] ([place]) Comment on above: Follow up Return in about 7 we eks (around 08/28/2024) for Depression/Anxiety Start: 08-09-2024 Annual PCP Team Chronic Disease Visit Annual PCP Team Chronic Disease Visit [facility] Start: 07-12-2024 End: 07-12-2024 Patient encounter procedure 07/12/2024 9:00 AM EDT Office Visit [facility]) [address], [place] [id number] Jennifer Christina MD [address] [place], [place] [address] Xanax refill request [facility] ([place]) Comment on above: Xanax refill request Start: 07-04-2024 End: 07-04-2024 [facility] 07/04/2024 4:00 PM EDT [facility]) [address], [place] [id number] Noelle Cummins, BIRTH CERTIFICATE CLERK.SKI PRODUCTION SUPERVISOR [address] [facility] [place], [place] [id number] requesting 10 day supply of xanax until she sees Dr. Werner on 07/12/24, refill was refused. [facility] ([place]) Comment on above: requesting 10 day supply of xanax until she sees Dr. Werner on 07/12/24, refill was refused. Start: 07-01-2024 Annual PCP Team Chronic Disease Visit Annual PCP Team Chronic Disease Visit [facility] Start: 06-21-2024 End: 06-21-2024 ambulatory 06/21/2024 7:00 AM EDT [facility] [address] [place] [address] Fortino Tejeda PA-C [address] [place], [place] [id number] Have a Fibro Flare [facility] Comment on above: Have a Fibro Flare Start: 06-03-2024 Covid-19 Vaccine ( season) Covid-19 Vaccine ( season) [facility] Start: 06-03-2024 Covid-19 Vaccine ( season) Covid-19 Vaccine () [facility] Start: 06-03-2024 Influenza vaccination [facility] Start: 03-28-2024 End: 03-28-2024 Patient encounter procedure 03/28/2024 3:40 PM EDT Office Visit [facility] ([place]) [address] [place], [place] [id number] Mehran Cooper, BIRTH CERTIFICATE CLERK.SKI PRODUCTION SUPERVISOR [address] [place], [place] [id number] Pain [facility] ([place]) Comment on above: Pain Start: 03-03-2024 ANNUAL PCP TEAM CHRONIC DISEASE VISIT ANNUAL PCP TEAM CHRONIC DISEASE VISIT [facility] Start: 02-22-2024 End: 02-22-2024 Patient encounter procedure 02/22/2024 2:20 PM EDT [facility] ([place]) [address] [place], [place] [address] Jennifer Christina MD [address] [place], [place] [id number] Life changes [facility] ([place]) Comment on above: Life changes Start: 02-08-2024 ANNUAL PCP TEAM CHRONIC DISEASE VISIT ANNUAL PCP TEAM CHRONIC DISEASE VISIT [facility] Start: 01-23-2024 [facility] Start: 01-12-2024 End: 04-12-2024 MISC SEND OUT TST 1 MISC SEND OUT TST 1 Lab Routine Family history of developmental delay Expected: 01/12/2024, Expires: 04/12/2024 [facility] Work Phone: Comment on above: Expected: 01/12/2024, Expires: Start: 12-22-2023 ANNUAL PCP TEAM CHRONIC DISEASE VISIT ANNUAL PCP TEAM CHRONIC DISEASE VISIT [facility] Start: 11-01-2023 ANNUAL PCP TEAM CHRONIC DISEASE VISIT ANNUAL PCP TEAM CHRONIC DISEASE VISIT [facility] Start: 10-20-2023 ANNUAL PCP TEAM CHRONIC DISEASE VISIT ANNUAL PCP TEAM CHRONIC DISEASE VISIT [facility] Start: 08-16-2023 End: 11-15-2023 Lipid 1996 panel - Serum or Plasma LIPID PANEL BASIC Lab Routine Mixed hyperlipidemia Expected: 08/16/2023, Expires: 11/15/2023 [facility] Work Phone: Comment on above: Expected: 08/16/2023, Expires: 4 Start: 06-06-2023 Screening for malignant neoplasm of cervix Cervical Cancer Screening [facility] Start: 06-03-2023 Covid-19 Vaccine () Covid-19 Vaccine () [facility] Start: 06-03-2023 Influenza vaccination [facility] Start: 01-20-2023 End: 03-22-2023 Lipid 1996 panel - Serum or Plasma LIPID PANEL BASIC Lab Routine Mixed hyperlipidemia Expected: 01/20/2023, Expires: 03/22/2023 [facility] Work Phone: Comment on above: Expected: 01/20/2023, Expires: 3 Start: 01-20-2023 End: 03-22-2023 Thyrotropin [Units/volume] in Serum or Plasma TSH BLD Lab Routine Generalized anxiety disorder Mixed hyperlipidemia Expected: 01/20/2023, Expires: 03/22/2023 [facility] Work Phone: Comment on above: Expected: 01/20/2023, Expires: 3 Start: 11-01-2022 End: 01-01-2023 Thyrotropin [Units/volume] in Serum or Plasma TSH BLD Lab Routine Mixed hyperlipidemia Generalized anxiety disorder Expected: 11/01/2022, Expires: 01/01/2023 [facility] Work Phone: Comment on above: Expected: 11/01/2022, Expires: 3 Start: 11-01-2022 End: 01-01-2023 Thyroxine (T4) free [Mass/volume] in Serum or Plasma T4 FREE/FREE THYROX Lab Routine Generalized anxiety disorder Expected: 11/01/2022, Expires: 01/01/2023 [facility] Work Phone: Comment on above: Expected: 11/01/2022, Expires: 3 Start: 11-01-2022 End: 01-01-2023 Triiodothyronine (T3) [Mass/volume] in Serum or Plasma T3 BLD Lab Routine Generalized anxiety disorder Expected: 11/01/2022, Expires: 01/01/2023 [facility] Work Phone: Comment on above: Expected: 11/01/2022, Expires: Start: 10-27-2022 End: 12-27-2022 25-hydroxyvitamin D3 [Mass/volume] in Serum or Plasma VITAMIN D 25 HYDROXY Lab Routine Pain in joint, multiple sites Malaise and fatigue Expected: 10/27/2022, Expires: 12/27/2022 [facility] Work Phone: Comment on above: Expected: 10/27/2022, Expires: 3 Start: 10-27-2022 End: 12-27-2022 C reactive protein [Mass/volume] in Serum or Plasma C-REACTIVE PROTEIN (CRP) Lab Routine Pain in joint, multiple sites Malaise and fatigue Expected: 10/27/2022, Expires: 12/27/2022 [facility] Work Phone: Comment on above: Expected: 10/27/2022, Expires: 3 Start: 10-27-2022 End: 12-27-2022 CBC W Auto Differential panel - Blood CBC + DIFF Lab Routine Pain in joint, multiple sites Malaise and fatigue Expected: 10/27/2022, Expires: 12/27/2022 [facility] Work Phone: Comment on above: Expected: 10/27/2022, Expires: 3 Start: 10-27-2022 End: 12-27-2022 Cobalamin (Vitamin B12) [Mass/volume] in Serum or Plasma VITAMIN B12 BLOOD Lab Routine Pain in joint, multiple sites Malaise and fatigue Expected: 10/27/2022, Expires: 12/27/2022 [facility] [facility] Work Phone: Comment on above: Expected: 10/27/2022, Expires: 3 Start: 10-27-2022 End: 12-27-2022 Comprehensive metabolic 2000 panel - Serum or Plasma COMP METABOLIC PANEL Lab Routine Pain in joint, multiple sites Malaise and fatigue Expected: 10/27/2022, Expires: 12/27/2022 [facility] Work Phone: Comment on above: Expected: 10/27/2022, Expires: 3 Start: 10-27-2022 End: 12-27-2022 Creatine kinase [Enzymatic activity/volume] in Serum or Plasma CK CREATINE KINASE Lab Routine Pain in joint, multiple sites Malaise and fatigue Expected: 10/27/2022, Expires: 12/27/2022 [facility] Work Phone: Comment on above: Expected: 10/27/2022, Expires: 3 Start: 10-27-2022 End: 12-27-2022 Creatinine [Mass/volume] in Urine collected for unspecified duration CREATININE RANDOM UR Lab Routine Pain in joint, multiple sites Malaise and fatigue Expected: 10/27/2022, Expires: 12/27/2022 [facility] Work Phone: Comment on above: Expected: 10/27/2022, Expires: 3 Start: 10-27-2022 End: 12-27-2022 Cyclic citrullinated peptide IgG Ab [Units/volume] in Serum or Plasma CCP ANTIBODY IGG Lab Routine Pain in joint, multiple sites Malaise and fatigue Expected: 10/27/2022, Expires: 12/27/2022 [facility] Work Phone: Comment on above: Expected: 10/27/2022, Expires: 3 Start: 10-27-2022 End: 12-27-2022 DNA ANTIBODY DS BLD DNA ANTIBODY DS BLD Lab Routine Pain in joint, multiple sites Malaise and fatigue Expected: 10/27/2022, Expires: 12/27/2022 [facility] Work Phone: Comment on above: Expected: 10/27/2022, Expires: 3 Start: 10-27-2022 End: 12-27-2022 DNA double strand Ab [Presence] in Serum by Immunofluorescence (IF) Crithidia luciliae CRITHIDIA LUCILIAE Lab Routine Pain in joint, multiple sites Malaise and fatigue Expected: 10/27/2022, Expires: 12/27/2022 [facility] Work Phone: Comment on above: Expected: 10/27/2022, Expires: 3 Start: 10-27-2022 End: 12-27-2022 Erythrocyte sedimentation rate SED RATE WESTERGREN Lab Routine Pain in joint, multiple sites Malaise and fatigue Expected: 10/27/2022, Expires: 12/27/2022 [facility] Work Phone: Comment on above: Expected: 10/27/2022, Expires: 3 Start: 10-27-2022 End: 12-27-2022 Ferritin [Mass/volume] in Serum or Plasma FERRITIN BLD Lab Routine Pain in joint, multiple sites Malaise and fatigue Expected: 10/27/2022, Expires: 12/27/2022 [facility] Work Phone: Comment on above: Expected: 10/27/2022, Expires: 3 Start: 10-27-2022 End: 12-27-2022 Iron and Iron binding capacity panel - Serum or Plasma IRON + TIBC Lab Routine Pain in joint, multiple sites Malaise and fatigue Expected: 10/27/2022, Expires: 12/27/2022 [facility] Work Phone: Comment on above: Expected: 10/27/2022, Expires: 3 Start: 10-27-2022 End: 12-27-2022 Protein [Mass/volume] in Urine PROTEIN RANDOM UR Lab Routine Pain in joint, multiple sites Malaise and fatigue Expected: 10/27/2022, Expires: 12/27/2022 [facility] Work Phone: Comment on above: Expected: 10/27/2022, Expires: 3 Start: 10-27-2022 End: 12-27-2022 Rheumatoid factor [Units/volume] in Serum or Plasma RHEUMATOID FACTOR BL Lab Routine Pain in joint, multiple sites Malaise and fatigue Expected: 10/27/2022, Expires: 12/27/2022 [facility] Work Phone: Comment on above: Expected: 10/27/2022, Expires: 3 Start: 10-27-2022 End: 12-27-2022 Ribonucleoprotein extractable nuclear Ab [Units/volume] in Serum [employer]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 ANTIBODY BLOOD Lab Routine Pain in joint, multiple sites Malaise and fatigue Expected: 10/27/2022, Expires: 12/27/2022 [facility] Work Phone: Comment on above: Expected: 10/27/2022, Expires: 3 Start: 10-27-2022 End: 12-27-2022 SJOGREN ABS SSA/SSB SJOGREN ABS SSA/SSB Lab Routine Pain in joint, multiple sites Malaise and fatigue Expected: 10/27/2022, Expires: 12/27/2022 [facility] Work Phone: Comment on above: Expected: 10/27/2022, Expires: 3 Start: 10-27-2022 End: 12-27-2022 Do extractable nuclear IgG Ab [Units/volume] in Serum DO IGG AB Lab Routine Pain in joint, multiple sites Malaise and fatigue Expected: 10/27/2022, Expires: 12/27/2022 [facility] Work Phone: Comment on above: Expected: 10/27/2022, Expires: 3 Start: 10-27-2022 End: 12-27-2022 Urinalysis complete panel - Urine URINALYSIS WITH MICROSCOPIC, REFLEX CULTURE Lab Routine Pain in joint, multiple sites Malaise and fatigue Expected: 10/27/2022, Expires: 12/27/2022 [facility] Work Phone: Comment on above: Expected: 10/27/2022, Expires: Start: 10-03-2022 DEPRESSION ASSESSMENT DEPRESSION ASSESSMENT [facility] Start: 08-03-2022 End: 08-17-2022 Influenza virus A and B RNA and SARS-CoV-2 (COVID-19) N gene panel - Respiratory specimen by FRANCESCO with probe detection COVID WITH FLUA+B, ROUTINE Microbiology Routine Acute cough URI, acute Expected: 08/03/2022, Expires: 08/17/2022 [facility] Work Phone: Comment on above: Expected: 08/03/2022, Expires: Start: 06-25-2022 Application of abdominal corset [facility] Work Phone: Start: 06-25-2022 Patient discharge [facility] Work Phone: Start: 06-25-2022 Administration of blood product [facility] Work Phone: Start: 06-25-2022 [facility] Work Phone: Start: 06-25-2022 Consultation [facility] Work Phone: Start: 06-24-2022 Notification of physician [facility] Work Phone: Start: 06-24-2022 Post-anesthesia assessment [facility] Work Phone: Start: 06-24-2022 [facility] Work Phone: Start: 06-24-2022 Following clinical pathway protocol [facility] Work Phone: Start: 06-24-2022 Application of abdominal corset [facility] Work Phone: Start: 06-24-2022 Administration of medication [facility] Work Phone: Start: 06-24-2022 Ambulation therapy management [facility] Work Phone: Start: 06-24-2022 Application of device [facility] Work Phone: Start: 06-24-2022 Assessment of risk of venous thromboembolism [facility] Work Phone: Start: 06-24-2022 Catheterization of vein [facility] Work Phone: Start: 06-24-2022 Deep breathing and coughing exercises [facility] Work Phone: Start: 06-24-2022 Exercises [facility] Work Phone: Start: 06-24-2022 Incentive spirometry [facility] Work Phone: Start: 06-24-2022 Measuring intake and output [facility] Work Phone: Start: 06-24-2022 Procedure discontinued [facility] Work Phone: Start: 06-24-2022 Provision of activity privileges [facility] Work Phone: Start: 06-24-2022 Vital signs measurements [facility] Work Phone: Start: 06-24-2022 Wound care [facility] Work Phone: Start: 06-24-2022 End: 06-24-2022 [facility] Work Phone: Start: 06-24-2022 Post-anesthesia assessment [facility] Work Phone: Start: 06-24-2022 End: 06-24-2022 Notification of physician [facility] Work Phone: Start: 06-24-2022 Admission procedure [facility] Work Phone: Start: 06-24-2022 End: 06-24-2022 Application of intermittent pneumatic compression device [facility] Work Phone: Start: 06-24-2022 External monitor surveillance [facility] Work Phone: Start: 06-24-2022 Preoperative care [facility] Work Phone: Start: 06-24-2022 End: 06-24-2022 [facility] Work Phone: Start: 06-24-2022 Nonstress test [facility] Work Phone: Start: 06-24-2022 Obstetric monitoring [facility] Work Phone: Start: 06-24-2022 Vital signs measurements [facility] Work Phone: Start: 06-24-2022 End: 06-24-2022 [facility] Work Phone: Start: 06-24-2022 [facility] Work Phone: Start: 06-23-2022 End: 07-07-2022 Influenza virus A and B RNA and SARS-CoV-2 (COVID-19) N gene panel - Respiratory specimen by FRANCESCO with probe detection [facility] Work Phone: Comment on above: Expected: 06/23/2022, Expires: Start: 06-20-2022 Nonstress test [facility] Work Phone: Start: 06-20-2022 Obstetric monitoring [facility] Work Phone: Start: 06-20-2022 Vital signs measurements [facility] Work Phone: Start: 06-20-2022 [facility] Work Phone: Start: 06-20-2022 Patient discharge [facility] Work Phone: Start: 06-19-2022 Patient discharge [facility] Work Phone: Start: 06-18-2022 Obstetric monitoring [facility] Work Phone: Start: 06-18-2022 Vital signs measurements [facility] Work Phone: Start: 06-18-2022 [facility] Work Phone: Start: 06-18-2022 Cul prsmptv pthgnc organism scrn w/colony estimj CULTURE SCREEN ONLY [facility] Work Phone: Start: 06-18-2022 Iadna streptococcus group b amplified probe tq STREP B DNA AMP PROBE [facility] Work Phone: Start: 06-18-2022 Iv infusion hydration each additional hour HYDRATE IV INFUSION ADD-ON [facility] Work Phone: Start: 06-18-2022 Ther proph/dx njx iv push single/1st sbst/drug THER/PROPH/DIAG INJ IV PUSH [facility] Work Phone: Start: 06-18-2022 Therapeutic prophylactic/dx injection subq/im THER/PROPH/DIAG INJ SC/IM [facility] Work Phone: Start: 06-18-2022 End: 06-18-2022 Nonstress test [facility] Work Phone: Start: 06-18-2022 Obstetric monitoring [facility] Work Phone: Start: 06-18-2022 Vital signs measurements [facility] Work Phone: Start: 06-18-2022 End: 06-19-2022 [facility] Work Phone: Start: 06-18-2022 Patient discharge [facility] Work Phone: Start: 06-03-2022 Influenza vaccination [facility] Start: 02-12-2022 Patient discharge [facility] Work Phone: Start: 02-12-2022 Ultrasonography for antepartum monitoring of fetus OB Limited (No Biometrics) [facility] Work Phone: Start: 02-12-2022 Consultation [facility] Work Phone: Start: 02-11-2022 Ambulation without limitation [facility] Work Phone: Start: 02-11-2022 Assessment of risk of venous thromboembolism [facility] Work Phone: Start: 02-11-2022 Insertion of catheter into peripheral vein [facility] Work Phone: Start: 02-11-2022 Providing care according to standard [facility] Work Phone: Start: 02-11-2022 Referral to information technology data analyst and repair manager [facility] Work Phone: Start: 02-11-2022 [facility] Work Phone: Start: 02-11-2022 Following clinical pathway protocol [facility] Work Phone: Start: 02-11-2022 Admission procedure [facility] Work Phone: Start: 02-11-2022 Bacteria identified in Blood by Culture Blood Culture [facility] Work Phone: Start: 01-04-2022 Iv infusion hydration each additional hour HYDRATE IV INFUSION ADD-ON [facility] Work Phone: Start: 01-04-2022 Ther proph/dx njx iv push single/1st sbst/drug THER/PROPH/DIAG INJ IV PUSH [facility] Work Phone: Start: 01-04-2022 Therapeutic injection iv push each new drug TX/PRO/DX INJ NEW DRUG [facility] Work Phone: Start: 12-28-2021 Iv infusion therapy/prophylaxis /dx 1st to 1 hr THER/PROPH/DIAG IV INF INIT [facility] Work Phone: Start: 12-28-2021 Therapeutic injection iv push each new drug TX/PRO/DX INJ NEW DRUG [facility] Work Phone: Start: 12-28-2021 Therapeutic prophylactic/dx injection subq/im THER/PROPH/DIAG INJ SC/IM [facility] Work Phone: Start: 10-03-2021 DEPRESSION ASSESSMENT DEPRESSION ASSESSMENT [facility] Start: 08-20-2021 COVID-19 VACCINE (3 - Booster for Pfizer series) COVID-19 VACCINE (3 - Booster for Pfizer series) [facility] Start: 08-20-2021 COVID-19 VACCINE (3 - Pfizer series) COVID-19 VACCINE (3 - Pfizer series) [facility] Start: 06-03-2021 Influenza vaccination Flu vaccine (#1) [facility] Work Phone: Start: 03-16-2020 Adult depression screening assessment DEPRESSION SCREENING [facility] Start: 11-07-2019 End: 11-07-2019 Appointment Appointment [facility] Work Phone: Start: 10-17-2019 End: 10-17-2019 Appointment [facility] Work Phone: Start: 06-26-2018 Screening for malignant neoplasm of cervix [facility] Start: 2017 Screening for malignant neoplasm of cervix HPV (without or with Pap) [facility] Start: 01-10-2016 PNEUMOCOCCAL (2 - PCV) PNEUMOCOCCAL (2 - PCV) [facility] Start: 01-10-2016 [facility]neumococcal [facility] Start: 2006 Hepatitis B Vaccine (1 of 3 - 19+ 3-dose series) Hepatitis B Vaccine (1 of 3 - 19+ 3-dose series) [facility] Start: 2005 HEPATITIS C SCREENING HEPATITIS C SCREENING [facility] Start: 2005 Hepatitis C screening Hepatitis C Screening [facility] Start: 2005 SPIROMETRY SPIROMETRY [facility] Start: 1999 COVID-19 Vaccine (1) COVID-19 Vaccine [...] B (1 of 3 - 3-dose series) [facility] Start: 1987 Hepatitis B Vaccine (1 of 3 - 3-dose series) Hepatitis B Vaccine (1 of 3 - 3-dose series) [facility] Bacteria identified in Urine by Culture Urine Culture [facility] Work Phone: COVID & INFLUENZA A/ B & RSV PCR, ROUTINE COVID & INFLUENZA A/B & RSV PCR, ROUTINE Microbiology Routine Viral URI with cough Ordered: 06/20/2024 [facility] Work Phone: Comment on above: Ordered: 06/20/2024 COVID & INFLUENZA A/ B & RSV PCR, ROUTINE COVID & INFLUENZA A/B & RSV PCR, ROUTINE Microbiology Routine URI, acute Ordered: 07/09/2024 [facility] Work Phone: Comment on above: Ordered: 07/09/2024 COVID & INFLUENZA A/ B & RSV PCR, ROUTINE COVID & INFLUENZA A/B & RSV PCR, ROUTINE Microbiology Routine Sore throat URI, acute 10/11/2024 7:59 PM EST [facility] Work Phone: End: 06-19-2022 Culture, Urine [...] Work Phone: Erythrocyte mean corpuscular volume determination [facility] End: 06-20-2022 nonstress test nonstress test OB Routine One Time for 1 Occurrences starting 06/20/2022 until 06/20/2022 [facility] Work Phone: Comment on above: One Time for 1 Occurrences starting 06/03 until 06/20/2022 End: 06-19-2022 Group B Strep, PCR [facility] Work Phone: Comment on above: One Time for 1 Occurrences starting 06/03 until 06/19/2022 Group B Streptococcu s Culture Group B Streptococcus Culture [facility] Work Phone: Hematocrit [Volume Fraction] of Blood [facility] Hemoglobin [Mass/vol ume] in Blood [facility] Leukocytes [#/volume ] in Blood [facility] Mean corpuscular hem oglobin concentration determination [facility] Mean corpuscular hem oglobin determination [facility] End: 12-12-2023 Mri brain brain stem w/o w/contrast material MRI BRAIN WO/W IVCON Radiology Routine New daily persistent headache Mixed headache Medication overuse headache 1 Occurrences starting 11/12/2022 until 12/12/2023 [facility] Work Phone: Comment on above: 1 Occurrences starting 11/12/2022 until 12/12/2023 Neutrophil count [facility] Neutrophil percent differential count [facility] Nonrebreather mask oxygen Nonreb reather mask oxygen Respiratory Care Routine As directed - RT (PRN) until discontinued starting 06/19/2022 [employer] Work Phone: Comment on above: As directed - RT (PRN) until discontinue d starting 06/19/2022 Oxygen therapy [[facility] Data Set] Initiate Oxygen Therapy Protocol while on epidural Respiratory Care Routine As Needed until discontinued starting 06/19/2022 [employer] Work Phone: Comment on above: As Needed until discontinued starting Patient Education [facility] Work Phone: Patient referral [facility] Work Phone: Platelets [#/volume] in Blood [facility] Red blood cell count [facility] Red cell distributio n width determination [facility] Urine culture Urine Culture [facility] Work Phone: Urine culture [facility] End: 06-21-2022 US DOPPLER UMBILICAL ARTERY US DOPPLER UMBILICAL ARTERY Imaging Routine Once for 1 Occurrences starting 06/21/2022 until 06/21/2022 [employer] Work Phone: Comment on above: Once for [...] joint 1 Occurrences starting 06/21/2024 until 07/21/2025 [facility] Comment on above: 1 Occurrences starting 06/21/2024 until 07/21/2025 XR Ankle - left AP a nd Lateral and oblique XR ANKLE GENERAL 3V AP/LAT/OBL LEFT Radiology Routine Arthralgia, unspecified joint 07/16/2024 1:17 PM EDT [facility] End: 07-21-2025 XR Ankle - right AP and Lateral and oblique XR ANKLE GENERAL 3V AP/LAT/OBL RIGHT Radiology Routine Arthralgia, unspecified joint 1 Occurrences starting 06/21/2024 until 07/21/2025 [facility] Comment on above: 1 Occurrences starting 06/21/2024 until 07/21/2025 XR Ankle - right AP and Lateral and oblique XR ANKLE GENERAL 3V AP/LAT/OBL RIGHT Radiology Routine Arthralgia, unspecified joint 07/16/2024 1:17 PM EDT [facility] End: 07-21-2025 XR Knee AP and Lateral and [facility] Work Phone: Comment on above: 1 Occurrences starting 06/21/2024 until 07/21/2025 XR Knee AP and Later al and [facility] Work Phone: [facility] Immunizations Immunization Date Immunization Notes Care Provider Pieter ríos 07-12-2024 influenza, seasonal, injectable Jennifer Christina MD Work Phone: [facility] 08-09-2023 influenza, injectabl e, quadrivalent, contains preservative Jennifer Christina MD Work Phone: [facility] 08-09-2023 influenza virus vacc ine, unspecified formulation Ricki Lafleur BIRTH CERTIFICATE CLERK.[employer] PRODUCTION SUPERVISOR Work Phone: [facility] 06-25-2022 influenza, injectabl e, quadrivalent, preservative free Jennifer Christina MD Work Phone: [facility] 06-25-2022 influenza, seasonal, injectable Dr. Roger Cohen Work Phone: [facility] 06-25-2022 influenza virus vacc ine, unspecified formulation Jennifer Christina MD Work Phone: [facility] 05-21-2022 tetanus toxoid, redu howard diphtheria toxoid, and acellular pertussis vaccine, adsorbed Dr. Roger Cohen Work Phone: [facility] 10-19-2021 influenza, injectabl e, quadrivalent, contains preservative Yvonne Eagle BIRTH CERTIFICATE CLERK.[employer] PRODUCTION SUPERVISOR Work Phone: [facility] Work Phone: 06-27-2020 influenza, injectabl e, quadrivalent, contains preservative Yvonne Eagle BIRTH CERTIFICATE CLERK.[employer] PRODUCTION SUPERVISOR Work Phone: [facility] 09-19-2019 influenza, injectabl e, quadrivalent, contains preservative Yvonne Eagle BIRTH CERTIFICATE CLERK.[employer] PRODUCTION SUPERVISOR Work Phone: [facility] Work Phone: 06-15-2017 Influenza, injectabl e, Madin [place] Canine Kidney, preservative free, quadrivalent Maria Luisa Tyler MD Work Phone: [facility] 06-03-2017 influenza nasal, unspecified formulation Maria Luisa Tyler MD Work Phone: [facility] 06-03-2017 influenza virus vacc ine, unspecified formulation Angie Alejandro MD Work Phone: [facility] Work Phone: 02-16-2016 measles, mumps and rubella virus vaccine Angie Alejandro MD Work Phone: [facility] 02-15-2016 tetanus toxoid, redu howard diphtheria toxoid, and acellular pertussis vaccine, adsorbed Angie Alejandro MD Work Phone: [facility] 01-09-2015 pneumococcal polysaccharide vaccine, 23 valent Angie Alejandro MD Work Phone: [facility] Work Phone: 07-03-2014 TD(adult) unspecifie d formulation Maria Luisa Tyler MD Work Phone: [facility] 07-03-2014 Td, unspecified formulation Angie Alejandro MD Work Phone: [facility] Work Phone: 07-03-2014 tetanus and diphther ia toxoids, adsorbed, preservative free, for adult use (2 Lf of tetanus toxoid and 2 Lf of diphtheria toxoid) Yvonne Eagle APRN.[facility] Work Phone: [facility] Work Phone: 07-03-2009 RHO(D) immune globul in- IV or IM Yvonne Eagle BIRTH CERTIFICATE CLERK.[facility] Work Phone: [facility] Work Phone: Payers Date Payer Category Payer Self-pay [id number] 2015 Unknown [id number]. [id number] 2014 Medicaid [id number] 1987 Unknown [id number] 2.16. 840.1.783558.3.579.2.479 1987 Unknown [id number] 2.16. 840.1.013260.3.579.2.479 1987 Unknown [id number] 2.16. 840.1.081858.3.579.2.479 1987 Unknown [id number] 2.16. 840.1.317413.3.579.2.479 1987 Unknown [id number] 2.16. 840.1.130945.3.579.2.479 1987 Unknown [id number] 2.16. 840.1.651650.3.579.2.479 1987 Unknown [id number] 2.16. 840.1.924487.3.579.2.479 1987 Unknown [id number] 2.16. 840.1.833063.3.579.2.479 1987 Unknown [id number] 2.16. 840.1.068224.3.579.2.479 1987 Unknown [id number] 2.16. 840.1.057401.3.579.2.479 1987 Unknown [id number] 2.16. 840.1.785976.3.579.2.479 1987 Unknown [id number] 2.16. 840.1.830761.3.579.2.479 1987 Unknown [id number] 2.16. 840.1.734958.3.579.2.479 1987 Unknown [id number] 2.16. 840.1.114774.3.579.2.479 1987 Unknown [id number] 2.16. 840.1.547100.3.579.2.668 1987 Unknown [id number] 2.16.8 40.1.580839.3.579.2.627 1987 Unknown [id number] 2.16.8 40.1.066404.3.579.2.627 1987 Unknown [id number] 2.16.8 40.1.575210.3.579.2.627 Unknown [id number] Unknown Unknown [id number] 2.16.8 40.1.721147.3.579.2.462 Unknown [id number] 2.16.8 40.1.125355.3.579.2.462 Unknown [id number] 2.16.8 40.1.391821.3.579.2.462 Unknown [id number] 2.16.8 40.1.437885.3.579.2.462 Unknown [id number] 2.16.8 40.1.652030.3.579.2.462 Unknown [id number] 2.16.8 40.1.923743.3.579.2.462 Unknown [id number] 2.16.8 40.1.655572.3.579.2.462 Unknown [id number] 2.16.8 40.1.933185.3.579.2.462 Unknown [id number] 2.16.8 40.1.271205.3.579.2.462 Unknown [id number] 2.16.8 40.1.172971.3.579.2.462 Unknown [id number] 2.16.8 40.1.124544.3.579.2.462 Unknown [id number] 2.16.8 40.1.222331.3.579.2.462 Unknown [id number] 2.16.8 40.1.524089.3.579.2.462 Unknown [id number] 2.16.8 40.1.447331.3.579.2.462 Unknown [id number] 2.16.8 40.1.617559.3.579.2.462 Unknown [id number] 2.16.8 40.1.192001.3.579.2.462 Unknown [id number] 2.16.8 40.1.093349.3.579.2.462 Unknown [id number] 2.16.8 40.1.263750.3.579.2.462 Unknown [id number] 2.16.8 40.1.511312.3.579.2.462 Social History Date Type Detail Facility Start: 01-07-2022 End: 01-23-2024 Assertion Unknown if ever smoked [facility] Work Phone: Start: 05-11-2021 End: 06-15-2024 Tobacco smoking status NHIS Current every day smoker [facility] History of tobacco use Cigarette Smoker [facility] Start: 05-11-2021 End: 02-21-2025 Cigarettes smoked current (pack per day) - Reported [facility] Start: 05-11-2021 End: 06-15-2024 Tobacco use and exposure Never used [facility] Start: 05-11-2021 End: 2024 Alcohol intake Current non-drinker of alcohol (finding) [facility] Work Phone: Start: 1985 Sex Assigned At Not on file S [facility] Work Phone: Start: 06-19-2021 End: 08-03-2022 Exposure to SARS-CoV-2 (event) Not sure [facility] Start: 06-19-2022 End: 04-08-2025 Ex-smoker (finding) [facility] Sex Assigned At [facility] Start: 12-20-2021 Light tobacco smoker (finding) [facility] Start: 08-19-2019 None [facility] Start: 08-19-2019 Spouse/ Signif icant Other [facility] Start: 06-05-2020 Cigarettes [facility] Start: 1985 Sex Assigned At Female W [facility] History of tobacco use Current smoker [facility] Work Phone: Start: 11-19-2021 [facility] Work Phone: Start: 01-25-2020 End: 04-07-2020 History SDOH Alcohol Frequency 1 [facility] Start: 04-07-2020 History SDOH Alcohol Std Drinks 98 [facility] Start: 01-25-2020 End: 04-07-2020 History SDOH Social Connections Phone 5 [facility] Start: 04-07-2020 History SDOH Social Connections Get Together 4 [facility] Start: 01-25-2020 End: 04-07-2020 History SDOH Social Connections Mandaeism 3 [facility] Start: 01-25-2020 End: 04-07-2020 History SDOH Physical Activity DPW 2 [facility] Start: 01-25-2020 Education 12 [facility] Start: 06-27-2020 End: 06-23-2022 Tobacco Comment 5 cigarretes a day [facility] Start: 04-07-2020 End: 02-21-2025 Social connection and isolation panel [facility] Frequency of Communication with Friends and Family Not on file [facility] Do you belong to any clubs or organizations such as protestant groups, unions, fraternal or athletic groups, or school groups? Yes [facility] Are you now , , , , never or living with a partner? [facility] How often to you hav e a drink containing alcohol? Never [facility] Do you feel stress - tense, restless, nervous, or anxious, or unable to sleep at night because your mind is troubled all the time - these days [OSQ] To some extent [facility] (I/We) worried wheth er (my/our) food would run out before (I/we) got money to buy more. Never true [facility] In the past 12 month s, was there a time when you were not able to pay the mortgage or rent on time? No [facility] How often to you hav e a drink containing alcohol? Monthly or less [facility] How many standard drinks containing alcohol do you have on a typical day? 1 or 2 [facility] How hard is it for y ou to pay for the very basics like food, housing, medical care, and heating Somewhat hard [facility] Do you feel stress - tense, restless, nervous, or anxious, or unable to sleep at night because your mind is troubled all the time - these days [OSQ] Very much [facility] (I/We) worried wheth er (my/our) food would run out before (I/we) got money to buy more. Sometimes true [facility] NEGATED: Highlighted rowStart: 10-17-2019 End: 10-17-2019 Tobacco use and exposure Tobacco use and exposure [facility] Work Phone: Goals Date Patient Goal Desired Activity /State Functional Status Date Assessment Result Facility 12-25-2023 Functional Status Independent [facility] 12-25-2023 Functional Status Ambulation in Torres, Ambulation in Room [facility] 03-04-2023 Functional Status Independent [facility] 03-04-2023 Functional Status Ambulating in torres, Ambulating in room, Awake, Bathroom privileges [facility] 12-26-2022 Functional Status ID band on, Allergy Band on, Call device within reach, Bed in low position, Wheels locked, Upper/Half-Length side-rails up, Phone within reach, personal items within reach [facility] 10-07-2022 Functional Status Assistive Device None A [facility] 09-27-2022 Functional Status Assistive Device None A [facility] 06-29-2022 Are you deaf, or do you have serious difficulty hearing No 06/29/2022 9:38 AM Mine Ulloa, MUMTAZ No [facility] 06-29-2022 Are you blind, or do you have serious difficulty seeing, even when wearing glasses No 06/29/2022 9:38 AM Mine Ulloa, MUMTAZ No [facility] 06-29-2022 Do you have serious difficulty walking or climbing stairs No 06/29/2022 9:38 AM Mine Ulloa, MUMTAZ No [facility] 06-29-2022 Do you have difficul ty dressing or bathing No 06/29/2022 9:38 AM Mine Ullao, MUMTAZ No [facility] 06-29-2022 Because of a physica l, mental, or emotional condition, do you have difficulty doing errands alone such as visiting a physician's office or shopping No 06/29/2022 9:38 AM Mine Ulloa, RN No [facility] 02-12-2022 Functional status Ambulates [facility] Work Phone: Mental Status Date Assessment Result Facility 02-18-2025 Cognitive function Level Of Cons ciousness Awake;Alert;Appropriate;Fol lows Commands [facility] Work Phone: 01-23-2024 Cognitive function Level Of Cons ciousness Awake;Alert;Appropriate;Fol lows Commands [facility] Work Phone: 12-25-2023 Mental Status Orientation Oriented x 4 [facility] 12-25-2023 Mental Status [facility] 03-04-2023 Mental Status Orientation Oriented x 4 [facility] 03-04-2023 Mental Status [facility] 12-26-2022 Mental Status Oriented x 4 [facility] 10-07-2022 Mental Status Orientation Oriented x 4 [facility] 10-07-2022 Mental Status [facility] 09-27-2022 Mental Status Oriented x 4 [facility] 06-29-2022 Because of a physica l, mental, or emotional condition, do you have serious difficulty concentrating, remembering, or making decisions No 06/29/2022 9:38 AM Mine Ulloa RN No [facility] 06-25-2022 Cognitive function Level Of Cons ciousness Awake;Alert;Appropriate [facility] Work Phone: 06-25-2022 Cognitive function Arousable To Voice/Nam e [facility] Work Phone: 03-27-2022 Cognitive function Level Of Cons ciousness Awake;Alert;Appropriate;Fol lows Commands [facility] Work Phone: 02-11-2022 Cognitive function Appropriate;Cooperativ e [facility] Work Phone: 01-04-2022 Cognitive function Voice/Name [facility] Work Phone: 12-28-2021 Cognitive function Awake;Alert;A ppropriate;Fol lows Commands [facility] Work Phone: 10-09-2021 Cognitive function Level Of Cons ciousness Awake;Alert;Appropriate;Fol lows Commands [facility] Work Phone: 10-07-2021 Cognitive function Level Of Cons ciousness Awake;Alert;Appropriate;Fol lows Commands [facility] Work Phone: Clinical Notes 07-27-2018 to 04-08-2025 Note Date & Type Note Facility 04-08-2025 Discharge summary [facility] 04-08-2025 Radiology Diagnostic study note [facility] Imaging Services [address] [place], [place] [address] Abdomen/Pelvis W IV Cont ONLY MR#: [id number] Acct: [id number] Name: LILLIAN DRAKE Rep #: [id number] : 1985 F 39 From: Alfonzo Theodore MD PCP: Dr. Jennifer Werner MD Status: REG ER Study:Abdomen/Pelvis W IV Cont ONLY Date of E xam: 04/08/25 Exam# [id number] Ordering Dr: Main Moralez MD PROCEDURE: ABDOMEN/PELVIS [...] ONLY IMPRESSION: No acute abnormality Reading [facility] CC: Dr. Gergorio Moralez MD; Dr. 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 Maria Regan. Print Language: Nepalese Disposition Disposition: Home, Self Care What to do if you have Problems For any increased pain, shortness of breath, bleeding, nausea or vomiting, chestpain, or any unexpected problems, contact your Primary Care Provider. Call [facility] ([phone]) or report to the closest Emergency Room. Call 911 if necessary. 04/08/251926 <Electronically signed by Gregorio Moralez MD> Cosigner Signature (if applicable): CC: Dr. Jennifer Werner MD ~ Signed [facility] Work Phone: 1(738) 876-973606-20-2025 Radiology Diagnostic study note [facility] Imaging Services [address] [place] [address] Abdomen/Pelvis W IV Cont ONLY MR#: [id number] Acct: [id number] Name: LILLIAN DRAKE Rep #: [id number] : 1985 F 39 From: Norma Phillips MD PCP: Dr. Jennifer Werner MD Status: REG ER Study:Abdomen/Pelvis W IV Cont ONLY Date of E xam: 03/21/25 Exam# [id number] Ordering Dr: Elia Nielson DO PROCEDURE: ABDOMEN/PELVIS [...] of acute intra- abdominal process. Reading [facility] CC: Dr. Elia Barroso DO; Dr. Jennifer Werner MD ~ Transcribing Machine Mechanic: Signed [facility]06-19-2025 Radiology Diagnostic study note [facility] Imaging Services [address] [place], [place] [id number] Transvaginal Non- MR#: [id number] Acct: [id number] Name: LILLIAN DRAKE Rep #: [id number] : 1985 F 39 From: Kwaku Esquivel MD PCP: Dr. Jennifer Werner MD Status: REG ER Study:Transvaginal Non- Date of Exam: 03/21/25 Exam# [id number] Ordering Dr: Stephany Hurtado PROCEDURE: TRANSVAGINAL NON- [...] IMPRESSION: Intrauterine device in place. Reading Location: [id number] CC: Dr. Jennifer Werner MD; MARCUS Sinclair ~ Transcribing Machine Mechanic: Signed [facility]06-16-2025 [facility] [address], [address] [place] [address] OFFICE VISIT Date of Service: 03/18/25 MR#: [id number] Acct: [id number] Name: LILLIAN DRAKE Rep #: [id number] : 1985 Provider: Dr. 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 garbage. Call [facility]: [phone] to be sure your drugs can be [...] aware that I should contact my doctor. Patient/Sharepoint Web Developer Signature: Date/Time: Relationship to Patient: Witness Name/Signature: Date/Time: [facility] [id number] Miscellaneous Notes* Telephone Encounter - Lillian Lopez RN - 03/04/2023 8:42 PM EDT Reason for Call: pt with severe h/a, recently started on lithium Outcome: advised to go to ED now, agreeable. Reason for Disposition Severe pain in one eye Protocols used: Psgrjylf-ALNKJ-ME documented in this encounterUniversity Hospitals Portage Medical Center06-01-2023 History of Present illness Narrative* Jennifer Christina MD - 03/03/2023 11:59 AM EDT Images from the original note were not included. Dr. Jennifer Werner M.D. Primary care Family Medicine - [place] Visit Date: March 03, 2023 11:59 AM Ms.Kelly Jarek Drake Date of : 1985 MRN/E #: [id number] Chief Complaint: Patient presents with: Medication Follow-up [...] diagnosis. Manic response to Cymbalta. Now on Victoria Vera, seems is helping, we'll cont. 2. Generalized [...] on 03/03/2023 2:48 PM documented in this encounterUniversity Hospitals Portage Medical Center05-27-2023 Miscellaneous Notes* Telephone Encounter - Ana Lilia Sterling - 02/26/2023 1:44 PM EDT I spoke to patient and scheduled her next week 03/03/23 at 11:40 documented in this encounterUniversity Hospitals Portage Medical Center05-09-2023 Miscellaneous Notes* Telephone Encounter - Jennifer Christina MD - 02/08/2023 6:04 PM EDT Chart reviewed, medication refilled. Orders Placed This Encounter DULoxetine (CYMBALTA) 30 mg capsule Sig: Take 1 capsule by mouth once daily. Dispense: 60 capsule Refill: 0 Pharmacy Information Pharmacy Address Telephone [id number] [address] [place] [address] * Telephone Encounter - Natalee Sparrow MA - 02/08/2023 8:40 AM EDT Pharmacy faxed requesting the following refill Requested Prescriptions Pending Prescriptions Disp Refills DULoxetine (CYMBALTA) 30 mg capsule 60 capsule 0 Sig: Take 1 capsule by mouth once daily. Allergies: Dicyclomine, Lexapro [Escitalopram Oxalate], and Penicillins (home) [phone] (cell) Last Visit date: 02/07/2023 Future appointment: 03/30/2023 The patients preferred pharmacy has been captured for this encounter? yes Request is for script(s) to be faxed to pharmacy. OARRS Report for this patient was checked and validated:Not applicable Natalee Sparrow MA documented in this encounterUniversity Hospitals Portage Medical Center05-08-2023 History of Present illness Narrative* Jennifer Christina MD - 02/07/2023 9:07 AM EDT Images from the original note were not included. Dr. Jennifer Werner M.D. Primary care Family Medicine - [place] Visit Date: February 07, 2023 9:07 AM Ms.Kelly Jarek Drake Date of : 1985 MRN/E #: [id number] Chief Complaint: Patient presents with: Follow Up: [...] major depressive disorder (HCC) F33.1 CONSULT TO [facility] ADULT GRINDING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 [employer] sertraline (ZOLOFT) 100 mg tablet Symptoms not controlled with current tx. Zoloft reduced due to Wt gain, and switch to Duloxetine ptnever did. Plans to do now. 2. Generalized anxiety disorder F41.1 CONSULT TO [facility] ADULT GRINDING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 [employer] sertraline (ZOLOFT) 100 mg tablet Worse, [...] on 02/07/2023 5:46 PM documented in this encounterUniversity Hospitals Portage Medical Center05-02-2023 Miscellaneous Notes* Telephone Encounter - Lucia Zuniga - 02/01/2023 9:09 AM EDT The provider's schedule for February 11 at 1:00 pm was placed on hold by nicole. The patient is currently scheduled for April 25 appointment. Called the patient who doesn't want a sooner appointment. documented in this encounterUniversity Hospitals Portage Medical Center05-01-2023 Miscellaneous Notes* Telephone Encounter - Sahil Lim LPN - 01/31/2023 3:24 PM EDT Pharmacy Medivancehart message requesting the following refill Refill(s) Requested: Requested Prescriptions Pending Prescriptions Disp Refills ALPRAZolam (XANAX) 0.5 mg tablet [Pharmacy Med Name: ALPRAZOLAM 0.5 MG TABLET] 20 tablet Sig: take 1 tablet by mouth once daily if needed ALLERGIES Allergen Reactions Dicyclomine Other: See Comments Severe headache. Lexapro [Escitalopr* Other: See Comments Nausea Penicillins Rash (home) [phone] (cell) Last Office Visit Date: 10/20/2022 Last Distance Health Visit: 12/21/2022 Future Appointment: 02/07/2023 The patients preferred pharmacy has been captured for this encounter? yes Request is for script(s) to be escript to pharmacy. Sahil Lim LPN documented in this encounterUniversity Hospitals Portage Medical Center04-28-2023 Miscellaneous Notes* Telephone Encounter - Natalee Sparrow MA - 01/28/2023 1:21 PM EDT Pharmacy faxed requesting the following refill Requested Prescriptions Pending Prescriptions Disp Refills ALPRAZolam (XANAX) 0.5 mg tablet 20 tablet 0 Sig: Take 1 tablet by mouth once daily as needed for up to 30 days. Allergies: Dicyclomine, Lexapro [Escitalopram Oxalate], and Penicillins (home) [phone] (cell) Last Visit date: 10/20/2022 Future appointment: 03/05/2023 The patients preferred pharmacy has been captured for this encounter? yes Request is for script(s) to be faxed to pharmacy. OARRS Report for this patient was checked and validated:Not applicable Natalee Sparrow MA documented in this encounterUniversity Hospitals Portage Medical Center03-27-2023 History of Present illness Narrative* Basia Carter MA - 12/27/2022 2:33 PM EDT ED Follow Up: Patient discharged from [facility] ED on 12/26/22. Left message for patient to return call. Basia Carter MA December 27, 2022 2:35 PM documented in this encounterUniversity Hospitals Portage Medical Center03-26-2023 Hospital Discharge instructions Patient Education 12/26/2022 12:14:53 [...] itchy skin. Ask your healthcare provider about wcwi-ulz-rhzbjal pain relievers. If your pain is severe, [...] and which vaccine is best for you. 8434-1648 [employer]. [address] [place] [address]. All rights reserved. This information is not intended as a substitute for professional medical care. Always follow yourhealthcare professional's instructions. Follow Up Care 12/26/2022 11:29:56 With:ROGER COHEN MD Address: [address] [place] [address]- When:2-4 days [facility] 03-26-2023 Note Discharge Instructions Thank you for allowing [facility] to assist you with your healthcare needs. [...] MD When Within 2-4 days Where: [address] [place] [address]- Allergies Bentyl penicillin Medications Please ask your [...] Duration: 7 Days Printed Prescription Unchanged acetaminophen-hydrocodone (Hamp[place] 325- 5 mg oral tablet) 1 tab(s) [...] itchy skin. Ask your healthcare provider about luki-dll-hspauuc pain relievers. If your pain is severe, [...] and which vaccine is best for you. 2281-3820 [employer]. [address] [place] [address], [place] [address]. All rights reserved. This information is not intended as a substitute for professional medical care. Always follow yourhealthcare professional's instructions. Additional Information VACCINATE! IT SAVES LIVES! Members of the community who have not yet received the COVID-19 vaccine and would like to receive it can visit one of [facility] vaccine clinics. There are many vaccine clinic locations within the [facility] [address]. For locations and available times, please visit www.gettheshot.coronavirus.[place].gov/. It is important to note that some COVID mobile vaccine clinics are held outdoors and may be canceled in rainy or stormy conditions. To learn more about pediatric vaccinations (ages 5-11), we invite you to visit the [facility] webpage. https://www.[employer].org/pages/3064-Yirgo-Mshlwxvkamw-Wylqartahi-Iobzb-Naa stions.htmlTo learn more about the COVID-19 vaccine, we invite you to visit the CDC website for a list of frequently asked questions. https://www.cdc.gov/coronavirus/2019-ncov/vaccines/faq.html [facility] [employer] Patient Portal Access Instructions: Stay connected with your healthcare team and access your personal medical information anytime with the [facility] [employer] Patient Portal. If you would like a full copy of your medical records please contact the [facility] Medical Records Department Tuesday through Tuesday between 8a.m. and 4:30p.m. Please follow the directions below to access the portal: 1.Access the email account you provided upon registration to the hospital.2.Look for an invitation email from [facility].3.Open the email and access the invitation link: Accept Invitation to [facility]4.Fill in the required trujillo to create your account. Sign into www.[employer] with your username and password that [...] you will allow to register on the [facility] [employer] Patient Portal for access to your information. You can also access the [facility] [employer] Patient Portal on the Prestiam[employer] gabriel. Simply click on Health Records under Crunchedta and then click on the Estephania logo. [...] Call your local pharmacy or go to http://Check[employer].Get Me Listed/7Z2Ur9h to find one close to you.3.Make use of household items: Use cat litter or old coffee grounds to dispose medications if other options arenot available. Mix your drugs with these household products, seal them in an airtight container andthrow it into the garbage. Call [facility]: [phone] to be sure your drugs can be [...] aware that I should contact my doctor. Patient/Sharepoint Web Developer Signature: Date/Time: Relationship to Patient: Witness Name/Signature: Date/Time: [facility]03-24-2023 Miscellaneous Notes* Telephone Encounter - Karol Chou Ma - 12/24/2022 3:44 PM EDT LIZETT: 11/12/2022 Please review and advise. Thank You, Karol Chou Ma December 24, 2022 3:45 PM documented in this encounterUniversity Hospitals Portage [facility] Center03-21-2023 History of Present illness Narrative* Jennifer Christina MD - 12/21/2022 10:24 AM EDT Images from the original note were not included. [facility] Medicine [place] [address] Jennifer Werner M.D. [address], [place], [address] Dept. Dept. VIRTUAL/PHONE VISIT Visit conducted via Elixr / DoorDash Video conference (HIPAA compliant video platform). Patient's [...] partial, sustained full, or sustained partial remission ([facility]) 12/10/2014 labor delivered 6 weeks early Recurrent major depressive disorder, in partial remission ([facility]) 11/19/2015 Rh negative state in [...] systemic autoimmune diseases. Clinical correlation is required. CLAY PRODUCTS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 Antibody QUAL 10/29/2022 Positive (A) Negative Final CLAY PRODUCTS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 Antibody 10/29/2022 1.1 (A) <1.0 AI Final [...] 83 74 - 99 mg/dL Final The [place] Diabetes Association (ADA) provides guidance for cutoff [...] Standards of Medical Care in Diabetes 2016, [place] Diabetes Association. Diabetes Care. 2016.39(Suppl 1). BUN [...] Desk Reference: National Heart, Lung, and Blood Riley. National Institutes of Health. 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 Transcribing Machine Mechanic: [facility] Transcribe Date/Time: Dec 10 2022 2:53P Dictated [...] 21, 2022 10:53 AM documented in this encounterUniversity Hospitals Portage Medical Center03-10-2023 History of Present illness Narrative* Stephany Miller [...] 2022 TIME: 1:50 PM documented in this encounterUniversity Hospitals Portage Medical Center03-06-2023 Miscellaneous Notes* Telephone Encounter - Isidoro Reinoso RN - 12/06/2022 8:44 AM EST LIZETT: 11/12/22 NOV: n/a documented in this encounterUniversity Hospitals Portage Medical Center02-23-2023 Miscellaneous Notes* Telephone Encounter - Josephine Gutierrez MA - 11/25/2022 1:36 PM EST My Charted the patient to let her know that she can do a virtual appointment to go over her lab results. Josephine Gutierrez CMA 11/25/2022 1:44 PM documented in this encounterUniversity Hospitals Portage Medical Center02-10-2023 Instructions* Patient Instructions* Kathy Zayas MD [...] brain to be thorough documented in this encounterUniversity Hospitals Portage Medical Center02-10-2023 History of Present illness Narrative* Kathy Zayas MD - 11/12/2022 9:00 AM EST Images from the original note were not included. General Neurology Outpatient Clinic - new patient evaluation Date: November 12, 2022 Patient Name: Lillian Drake Referring physician: Maria Luisa Tyler [address] [facility] [address] Primary physician: Jennifer Christina [address] [place] [address] Reason for Evaluation: Headaches HPI: The pt [...] PCOS (polycystic ovarian syndrome) 2008 Polysubstance dependence ([facility]) 06/17/2014 Polysubstance dependence in early, early partial, sustained full, or sustained partial remission (HCC) 12/10/2014 labor delivered 6 weeks early Recurrent major depressive disorder, in partial remission ([facility]) 11/19/2015 Rh negative state in [...] Maternal Grandmother Ischemic Heart Disease Maternal Grandfather [place] at later age Diabetes Maternal Grandfather Hypertension [...] 5 Triceps: 5 Biceps: 5 Biceps: 5 Painting Instructor: 5 Painting Instructor: 5 Finger abduction: 5 Finger abduction: 5 [...] proprioception Coordination: Finger-to- nose-finger intact bilaterally and Vpty-jd-htgy intact bilaterally. Gait: normal-based. Normal tiptoe, heel, [...] which included preparing to see the patient, dsal-im-kvug patient care, completing clinical documentation, obtaining and/or reviewing separately obtained history, performing a medically appropriate examination, counseling and educating the pat ient/family/caregiver, ordering medications, tests, or procedures, and independently interpreting results (not separately reported). Kathy Zayas MD Staff, General Neurology Pager: [phone] CC: Referring Physician: Maria Luisa Tyler [address] [facility] [address] PCP: Jennifer Christina [address] [place] [address] documented in this encounterUniversity Hospitals Portage Medical Center01-30-2023 History of Present illness Narrative* Jennifer Christina MD - 11/01/2022 11:40 AM EST Images from the original note were not included. [facility] Medicine [address] Jennifer Werner M.D. [address], [place], [address] Dept. Dept. VIRTUAL/PHONE VISIT Visit conducted via [...] new problem. Progression since onset: evaluated by Jazz Musician, donna'd with Fibromyalgia. Recent stopped Prednisone. Associated [...] Migraine Headache Marijuana Use, Episodic Exercise-Induced Asthma Bign Positive PAST MEDICAL HISTORY Diagnosis Date Asthma [...] systemic autoimmune diseases. Clinical correlation is required. CLAY PRODUCTS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 Antibody QUAL 10/29/2022 Positive (A) Negative Final CLAY PRODUCTS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 Antibody 10/29/2022 1.1 (A) <1.0 AI Final [...] 83 74 - 99 mg/dL Final The [place] Diabetes Association (ADA) provides guidance for cutoff [...] Standards of Medical Care in Diabetes 2016, [place] Diabetes Association. Diabetes Care. 2016.39(Suppl 1). BUN [...] Desk Reference: National Heart, Lung, and Blood Riley. National Institutes of Health. 2001: NIH Publication [...] found for: FREET4 No results found for: G9RXJNIV This Team Access Model visit is a [...] diet. We'll recheck in 3-4 months. 3. skilled nursing systemic steroid user Z79.52 Prednisone recently tapered down and discontinued. Pt symptoms, also could be related to withdrawalfrom steroids. Return in about 24 days (around 11/25/2022) for Depression/Anxiety, Labs results. Discussed above plan with patient and/or caregiver. Patient and/or caregiver agreeable with above plan. Total visit time: 15 minutes. Jennifer Christina MD, signed on November 01, 2022 10:59 AM documented in this encounterUniversity Hospitals Portage Medical Center01-30-2023 History of Present illness Narrative* Maria Luisa [...] PCOS (polycystic ovarian syndrome) 2008 Polysubstance dependence ([facility]) 06/17/2014 Polysubstance dependence in early, early partial, sustained full, or sustained partial remission (HCC) 12/10/2014 labor delivered 6 weeks early Recurrent major depressive disorder, in partial remission ([facility]) 11/19/2015 Rh negative state in [...] <30 IU/mL <12 Crithidia lucillae Negative Negative Anti-CLAY PRODUCTS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 <1.0 AI 1.1 (H) Anti-SSB <1.0 AI <0.2 Anti-Sm <1.0 AI <0.2 Sm Antibody Negative Negative Anti-SSA <1.0 AI <0.2 Rheumatoid Factor <16 IU/mL 10 CLAY PRODUCTS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 Antibody QUAL Negative Positive ! SSA Antibody [...] indication for immune suppression Low titre BING, CLAY PRODUCTS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 likley non specific. Will monitor periodically. No signs of autoimmune disease. Symptoms concerning for fibromyalgia. Office Visit on 11/01/22 CONSULT TO NEUROLOGY No orders of the defined types were placed in this encounter. Return in about 1 year (around 11/01/2023). Maria Luisa Tyler MD documented in this encounterUniversity Hospitals Portage Medical Center01-25-2023 History of Present illness Narrative* Maria Luisa Tyler MD - 10/27/2022 10:32 AM EST VIRTUAL VISIT PROGRESS NOTE This is a virtual visit using Finestrellat video visit. It required patient-provider interaction for [...] Maternal Grandmother Ischemic Heart Disease Maternal Grandfather [place] at later age Diabetes Maternal Grandfather Hypertension [...] which included preparing to see the patient, lxsx-kx-rshb patient care, completing clinical documentation, obtaining and/or reviewing separately obtained history, performing a medically appropriate examination, ordering medications, tests, or procedures, and communicating results to the patient/family/caregiver Maria Luisa Tyler MD [facility] on 10/27/22 DNA ANTIBODY DS BLD CRITHIDIA LUCILIAE CLAY PRODUCTS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 ANTIBODY BLOOD DO IGG AB SJOGREN ABS [...] used - my chart documented in this encounterUniversity Hospitals Portage Medical Center01-17-2023 History of Present illness Narrative* Shira Older, BIRTH CERTIFICATE CLERK.SKI PRODUCTION SUPERVISOR - 10/19/2022 11:20 AM EST CC: [...] Maternal Grandmother Ischemic Heart Disease Maternal Grandfather [place] at later age Diabetes Maternal Grandfather Hypertension [...] She will need to keep appointment with management tech as scheduled and these concerns can be [...] care. Shira Kimball APRN.CNP documented in this encounterUniversity Hospitals Portage Medical Center01-05-2023 Hospital Discharge instructions Patient Education 10/07/2022 15:29:13 AA Asia BARR(CUSTOM) Body aches Please follow-up with your management tech regarding your symptoms. I would suggest going to a larger hospital with more specialized care if your symptoms get worse. Document Released: 09/19/2006 Document Revised: 09/05/2013 Document Reviewed: 09/20/2014 ExitCare Patient Information 2015 [employer]. This information is not intended to replace advicegiven to you by your health care provider. Make sure you discuss any questions you have with your health care provider. Follow Up Care 10/07/2022 12:26:01 With:Your management tech Address: When:2-4 days [facility] 01-05-2023 Note Discharge Instructions Thank you for allowing [facility] to assist you with your healthcare needs. The following is importantdischarge information regarding your hospital visit. Diagnosis from Today's Visit Medical screening exam What to Do Next Instructions from Your Care Team No qualifying data available. Post Acute Orders No qualifying data available. You Need to Schedule the Following Appointments Follow Up with Your management tech When Within 2-4 days Where: Allergies Bentyl [...] Duration: 12 Days Printed Prescription Unchanged acetaminophen-hydrocodone (Hampstead 325- 5 mg oral tablet) 1 tab(s) [...] Materials Body aches Please follow-up with your management tech regarding your symptoms. I would suggest going to a larger hospital with more specialized care if your symptoms get worse. Document Released: 09/19/2006 Document Revised: 09/05/2013 Document Reviewed: 09/20/2014 ExitCare Patient Information [address] [facility], [facility]. This information is not intended to replace advicegiven to you by your health care provider. Make sure you discuss any questions you have with your health care provider. Additional Information VACCINATE! IT SAVES LIVES! Members of the community who have not yet received the COVID-19 vaccine and would like to receive it can visit one of [facility] vaccine clinics. There are many vaccine clinic locations within the [facility] [address]. For locations and available times, please visit [email or web address]. It is important to note that some COVID mobile vaccine clinics are held outdoors and may be canceled in rainy orstormy conditions. To learn more about pediatric vaccinations (ages 5-11), we invite you to visit the [facility] webpage. [email or web address]/pages/[email or web address]-[email or web address]-[email or web address]-[email or web address] stions.htmlTo learn more about the COVID-19 vaccine, we invite you to visit the [facility] website for a list of frequently asked questions. [email or web address] _[email or web address] [facility] [place] [facility] Access Instructions: Stay connected with your healthcare team and access your personal medical information anytime with the [employer] [employer] Patient Portal. If you would like a full copy of your medical records please contact the [facility] Medical Records Department Tuesday through Tuesday between 8a.m. and 4:30p.m. Please follow the directions below to access the portal: 1.Access the email account you provided upon registration to the [facility].2.Look for an invitation email from [facility].3.Open the email and access the invitation link: Accept Invitation to [facility] [place]4.Fill in the required trujillo to create your account. Sign into www.[email or web address] Medical with your username and password that you [...] you will allow to register on the [facility] [employer] Patient Portal for access to your information. You can also access the [facility] [employer] Patient Portal on the Prest[employer] gabriel. Simply click on Health Records under [...] Call your local pharmacy or go to http://bit.Get Me Listed/3F2Hx0y to find one close to you.3.Make use of household items: Use cat litter or old coffee grounds to dispose medications if other options arenot available. Mix your drugs with these household products, seal them in an airtight container andthrow it into the garbage. Call [facility]: [phone] to be sure your drugs can be [...] aware that I should contact my doctor. Patient/Sharepoint Web Developer Signature: Date/Time: Relationship to Patient: Witness Name/Signature: Date/Time: [facility]ia [id number] NotePt prefers [facility] for this referral.[facility]12-27-2022 Hospital Discharge instructions Patient Education 09/27/2022 [...] action. To control pain, take prescription or lwah-kks-tfawhmm medicines as directed. Unless told not to, [...] Severe headache, neck pain, drowsiness, or confusion 9713-6387 [employer]. [address] [place] [address], [place] [address]. All rights reserved. This information is not intended as a substitute for professional medical care. Always follow yourhealthcare professional's instructions. Follow Up Care 09/27/2022 21:34:39 With:ROGER COHEN MD Address: [address] [place] [id number]- When:2-4 days [facility] 12-26-2022 Note Discharge Instructions Thank you for allowing [facility] to assist you with your healthcare needs. The following is importantdischarge information regarding your hospital visit. Diagnosis from Today's Visit Myalgia Generalized aches and pains What to Do Next Instructions from Your Care Team No qualifying data available. Post Acute Orders No qualifying data available. You Need to Schedule the Following Appointments Follow Up with ROEGR COHEN MD When Within 2-4 days Where: [address] [place] [id number]- Allergies Bentyl penicillin Medications Please ask your primary doctor or pharmacist before taking any other medication not listed, including over the counter drugs, herbal medications, vitamins and or supplements as they may interact withyour home medications. What How Much When Why Instructions Last Dose New acetaminophen-hydrocodone (Hampstead 325- 5 mg oral tablet) 1 tab(s) [...] action. To control pain, take prescription or gyii-dmr-jxsbpxs medicines as directed. Unless told not to, [...] Severe headache, neck pain, drowsiness, or confusion 1795-9568 [employer]. [address] [place] [address], [place] [address]. All rights reserved. This information is not intended as a substitute for professional medical care. Always follow yourhealthcare professional's instructions. Additional Information VACCINATE! IT SAVES LIVES! Members of the community who have not yet received the COVID-19 vaccine and would like to receive it can visit one of [facility] vaccine clinics. There are many vaccine clinic locations within the [facility] [address]. For locations and available times, please visit [email or web address]. It is important to note that some COVID mobile vaccine clinics are held outdoors and may be canceled in rainy orstormy conditions. To learn more about pediatric vaccinations (ages 5-11), we invite you to visit the [facility] webpage. https://www.[email or web address]/pages/[email or web address]-Prrbj-Iadwgjezlos-Ntllrdvnyl-Whehz-Wfe stions.htmlTo learn more about the COVID-19 vaccine, we invite you to visit the [facility] website for a list of frequently asked questions. [email or web address] _[email or web address].pdf [facility] [employer] Patient Portal Access Instructions: Stay connected with your healthcare team and access your personal medical information anytime with the [facility] [employer] Patient Portal. If you would like a full copy of your medical records please contact the [facility] Medical Records Department Tuesday through Tuesday between 8a.m. and 4:30p.m. Please follow the directions below to access the portal: 1.Access the email account you provided upon registration [facility] the [facility].2.Look for an invitation email from [facility].3.Open the email and access the invitation link: Accept Invitation to [facility]4.Fill in the required trujillo to create your account. Sign into www.[employer] with your username and password that [...] you will allow to register on the [facility] [employer] Patient Portal for access to your information. You can also access the [facility] [employer] Patient Portal on the [employer]orts. Simply click on Health Records under HealthData and then click on the Nu-B-2B logo. HOW TO SAFELY DISPOSE OF PRESCRIPTION [...] Call your local pharmacy or go to http://[employer].Get Me Listed/8I3Lw9p to find one close to you.3.Make use of household items: Use cat litter or old coffee grounds to dispose medications if other options arenot available. Mix your drugs with these household products, seal them in an airtight container andthrow it into the garbage. Call [facility]: [phone] to be sure your drugs can be [...] aware that I should contact my doctor. 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 A respiratory tract infection usually clears up [...] 102 F (39 C). documented in this encounterUniversity Hospitals Portage [facility] Center11-01-2022 History of Present illness Narrative* Heather Fajardo [...] 03, 2022 9:57 AM documented in this encounterUniversity Hospitals Portage Medical Center11-01-2022 History of Present illness Narrative* Livia Trivedi [...] history is provided by the patient. No foreign language interpreter was used. Cough This is a [...] Maternal Grandmother Ischemic Heart Disease Maternal Grandfather [place] at later age Diabetes Maternal Grandfather Hypertension [...] - COVID WITH FLUA+B, ROUTINE Livia Trivedi APRN.SKI PRODUCTION SUPERVISOR documented in this encounterUniversity Hospitals Portage Medical Center09-27-2022 History of Past illness Narrative* Problem Noted [...] of this encounter (statuses as of 10/27/2022) [facility] of Past illness Narrative* Problem Noted [...] of this encounter (statuses as of 11/01/2022) [facility] History of Past illness Narrative* Problem Noted [...] of this encounter (statuses as of 11/01/2022) [facility] of Past illness Narrative* Problem Noted [...] of this encounter (statuses as of 11/12/2022) [facility] of Past illness Narrative* Problem Noted [...] of this encounter (statuses as of 11/25/2022) [facility] of Past illness Narrative* Problem Noted [...] of this encounter (statuses as of 12/06/2022) [facility] of Past illness Narrative* Problem Noted [...] of this encounter (statuses as of 12/21/2022) [facility] of Past illness Narrative* Problem Noted [...] of this encounter (statuses as of 12/24/2022) [facility] of Past illness Narrative* Problem Noted [...] of this encounter (statuses as of 12/27/2022) [facility] of Past illness Narrative* Problem Noted [...] of this encounter (statuses as of 02/01/2023) [facility] of Past illness Narrative* Problem Noted [...] of this encounter (statuses as of 02/02/2023) [facility] of Past illness Narrative* Problem Noted [...] of this encounter (statuses as of 02/07/2023) [facility] of Past illness Narrative* Problem Noted [...] of this encounter (statuses as of 02/08/2023) [facility] of Past illness Narrative* Problem Noted [...] of this encounter (statuses as of 02/09/2023) [facility] illness Narrative* Problem Noted [...] of this encounter (statuses as of 02/26/2023) [facility] of Past illness Narrative* Problem Noted [...] of this encounter (statuses as of 03/03/2023) [facility] of Past illness Narrative* Problem Noted [...] of this encounter (statuses as of 03/05/2023) [facility] Past illness Narrative* Problem Noted [...] of this encounter (statuses as of 03/08/2023) [place] [address]-27-2022 History of Past illness Narrative* Problem Noted [...] of this encounter (statuses as of 03/08/2023) [facility] History of Past illness Narrative* Problem Noted [...] of this encounter (statuses as of 05/09/2023) [facility] History of Past illness Narrative* Problem Noted [...] of this encounter (statuses as of 07/20/2023) [facility] History of Past illness Narrative* Problem Noted [...] of this encounter (statuses as of 08/01/2023) [facility] of Past illness Narrative* Problem Noted [...] of this encounter (statuses as of 08/07/2023) [facility] History of Past illness Narrative* Problem Noted [...] of this encounter (statuses as of 08/19/2023) [facility] History of Past illness Narrative* Problem Noted [...] of this encounter (statuses as of 08/29/2023) [facility] History of Past illness Narrative* Problem Noted [...] of this encounter (statuses as of 09/07/2023) [facility] of Past illness Narrative* Problem Noted [...] of this encounter (statuses as of 12/02/2023) [facility] History of Past illness Narrative* Problem Noted [...] of this encounter (statuses as of 12/06/2023) [facility] History of Past illness Narrative* Problem Noted [...] of this encounter (statuses as of 12/14/2023) [facility] History of Past illness Narrative* Problem Noted [...] of this encounter (statuses as of 12/16/2023) [facility] of Past illness Narrative* Problem Noted [...] of this encounter (statuses as of 12/26/2023) [facility] of Past illness Narrative* Problem Noted [...] of this encounter (statuses as of 01/13/2024) [facility] History of Present illness Narrative* Yvonne Valdez APRN.SKI PRODUCTION SUPERVISOR - 06/23/2022 3:48 PM EDT Subjective [...] Recurrent major depressive disorder, in partial remission ([facility]) 11/19/2015 Rh negative state in [...] Maternal Grandmother Ischemic Heart Disease Maternal Grandfather [place] at later age Diabetes Maternal Grandfather Hypertension [...] illness Yvonnejosh Eagle APRN.CNP documented [facility] Instructions* Patient Instructions* Yvonne Eagle APRN.CNP - [...] to your local emergency facility: Notify the quantometer operator that you are seeking care for [...] or concerning to you. documented in this encounter[facility] Note Attestation signed by Emily Jacobs MD at 06/21/2022 9:35 AM I reviewed and agree with the care provided by the resident/CNM/GABRIEL during the visit including the patient's medical history, the resident's findings in the physical exam, patient's diagnosis and treatment plan. Department of Obstetrics and Gynecology [facility] Discharge Summary Admission on 06/19/2022 12:39 [...] follow-up with her primary OB doctor in [place]. Meds: Medication List START taking these medications [...] twin A Follow up appointment with your doctor/direct marketing manager - Keep next scheduled appointment Activity - Normal Activity Call your doctor/direct marketing manager if you have: - leaking fluid - vaginal bleeding - regular contractions: More than 6 contractions in one hour - decreased movement - worsening abdominal (belly) pain - headache, blurry vision, increased swelling, upper abdominal pain Laura Márquez DO on 06/20/2022 at 2:24 [facility]09-18-2022 Hospital Discharge instructions* Discharge Instructions* Laura Márquez DO - 06/20/2022 2:19 PM EDT Follow up appointment with your doctor/direct marketing manager - Keep next scheduled appointment Activity - Normal Activity Call your doctor/direct marketing manager if you have: - leaking fluid - [...] related visit on 06/20/22. Laura M[facility]quez DO [facility] documented in this [facility] Work Phone: [phone] History of Present illness Narrative* Laura Márquez DO - 06/20/2022 2:17 PM EDT Discussed with patient and she is certain that she got her second dose of BMZ yesterday around 1130just prior to transport. Also found documentation of this in her transfer records from [facility]. No additional BMZ given while here at [facility]. * Andre Mac DO - 06/20/2022 6:06 [...] A Polyhydramnios Twin B - Follows with [facility] [place] (06/09): Twin A: [...] Jacobs MD * Olimpia Pino APRN - RETAIL SERVICES PROFESSIONAL - 06/20/2022 2:10 AM EDT Patient up [...] frustration. documented [facility] Work Phone: 1(504) 839-346303-20-2022 Hospital Discharge instructions Patient Education 12/20/2021 15:48:41 [...] for heart disease or after a stroke) Xsqw-aka-[id number] medicines for diarrhea, nausea, and vomiting are generally OK unless you have bleeding, fever, or severe abdominal pain. General care If symptoms are severe, rest at home for the next 24 hours, or until you are feeling better. Washing your hands with soap and water, or using alcohol-based hand sanipractic physician is the best way to stop the [...] after. Wash your hands or use alcohol-based sanipractic physician after using cutting boards, countertops, and knives that have been in contact with raw food. Dry your hands with a single use towel. Keep uncooked meats away from cooked and lljlz-ql-xwt foods. Follow-up care Follow up with your [...] every 6 hours), or very dark urine [id number] [employer]. [address] [place] [address]. All rights reserved. This information is not intended as a substitute for professional medical care. Always follow yourhealthcare professional's instructions. Follow Up Care 12/20/2021 14:06:01 With:ROGER COHEN MD Address: [address] [place] [address]- When:2-4 days [facility] 10-18-2021 History of Present illness Narrative* Heather [...] 20, 2021 8:59 AM documented in [facility] Hospital Discharge instructions* Instructions* Nicolás Wiley MD - 07/10/2021 Please return to the emergency Department immediately for new or worsening symptoms or any new concerns. Please follow-up with your primary care doctor in the next 2-3 days. Please call tomorrow to arrange follow-up as soon as possible with gastroenterology, general surgery, and FLAP PRESSER for further evaluation of symptoms. documented in this encounter[facility] Work Phone: [phone]) 862-723408-09-2021 Hospital Discharge instructions* Instructions* Angie Alejandro MD [...] sent through Care Everywhere. * Back: Strain (Nepalese) * Back: Preventing Injuries (Nepalese) * Back Pain: Relief: General Info (Nepalese) documented in this encounterSUM[facility] Work Phone: 1(134) 685-533610-25-2018 History of Past illness Narrative* Problem Noted [...] of this encounter (statuses as of 06/23/2022) [facility] History of Past illness Narrative* Problem Noted [...] of this encounter (statuses as of 08/03/2022) [facility] History of Past illness Narrative* Problem Noted [...] of this encounter (statuses as of 10/19/2022) [facility] Author Kevin Heart [facility] Note Date/Time February 18, 2025 10:02 am [facility] Medical Records Department [address] [place] [address] Emergency Department Summary 02/18/25 MR#: [id number] Acct: [id number] Name: LILLIAN DRAKE Rep #:[id number] : 1985 39 From: eKvin Heart DO PCP: Dr. Jennifer Werner MD [...] carrying groceries in and bent over to chart picker her child and noted that she felt a pop. She states that progressively over the last few daysthe pain in her lower back had been progressing she states that it shoots down both of her legs. She states that she has been urinating normally for self and having normal bowel movements. Patient states that she has been taking iydpiibatvelpd-hdz-xlrse as well as rotating Tylenol and there without much relief. 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 She is vies follow-up with primary care physician return with worsening symptoms and concerns. She is agreeable to plan all question concerns answered she is discharged home in stable condition. Radiography Diagnostic Testing: Clinical Impression(s) from Imaging Studies Lumbar Spine X-Ray 02/18/25 08:53 IMPRESSION: No acute fracture. Reading Location: [facility] Discharge Plan Triage Chief Complaint: Other, [...] 2RF Primary Care Provider: Jennifer Werner Referrals: [facility] Doctor,Out of [Non-Staff] - Activity Restrictions/Additional Instructions: Follow-up with your doctor in outpatient setting. Return for worsening symptomsor concerns. Rotate Tylenol and ibuprofen iewcgl-bul-kwqrq when you do this youcan take something every 3 hours. Use the Flexeril/cyclobenzaprine that you have at home for spasms. Do not operate anything under the influence of this medication as it will make you sleepy and drowsy. Print Language: Nepalese Disposition Disposition: Home, Self Care What to do if you have Problems For any increased pain, shortness of breath, bleeding, nausea or vomiting, chestpain, or any unexpected problems, contact your Primary Care Provider. Call [facility] ([phone]) or report to the closest Emergency Room. Call 911 if necessary. 02/18/25 1002 <Electronically signed by Kevin Heart DO> Cosigner Signature (if applicable): CC: Dr. Jennifer Werner MD ~ Signed [facility] Work Phone: Evaluation + Plan note No data available for this section [facility] Evaluation note* Diagnosis Strain of lumbar region, initial encounter- Primary documented in this encounter [facility] Work Phone: Evaluation note* Diagnosis Abdominal pain, epigastric- Primary Pelvic pain documented in this encounter [facility] Work Phone: Evaluation noteNo assessment information available [facility] Work Phone: Evaluation note* Diagnosis Onset [...] high risk , antepartum acute Depression chronic [facility] Work Phone: Evaluation note* Diagnosis Onset [...] acute Depression chronic Abdominal wall cellulitis ac [place] [facility] Work Phone: Evaluation note* Diagnosis Onset [...] acute Depression chronic Abdominal wall cellulitis ac [place] Cellulitis acute Dichorionic diamniotic twin acute Hypokalemia acute Infertility acute Marijuana use, episodic acut e Nausea/vomiting in acute acute Rh negative status during acute Supervision of high risk , antepartum acute Vaginal bleeding during acute Depression [facility] Work [...] Supervision of high risk , antepartum acute [facility] Work Phone: Evaluation note* Diagnosis Onset [...] acute Depression acute Dichorionic diamniotic twin acute [id number] acute IUGR (intrauterine growth restriction) acute Marijuana use, episodic acut e Polyhydramnios affecting acute acute Rh negative status during acute Supervision of high risk , antepartum acute Abnormal glucose level acute Anxiety acute Depression acute Dichorionic diamniotic twin acute [id number] acute IUGR (intrauterine growth restriction) acute Marijuana use, episodic acut e Polyhydramnios affecting acute acute Rh negative status during acute Supervision of high risk , antepartum acute [facility] Work Phone: Evaluation note* Diagnosis Onset [...] acute Depression acute Dichorionic diamniotic twin acute [id number] acute IUGR (intrauterine growth restriction) acute Marijuana use, episodic acut e Polyhydramnios affecting acute acute Rh negative status during acute Supervision of high risk , antepartum acute Abnormal glucose level acute Anxiety acute Depression acute Dichorionic diamniotic twin acute [id number] acute IUGR (intrauterine growth restriction) acute Marijuana use, episodic acut e Polyhydramnios affecting acute acute Rh negative status during acute Supervision of high risk , antepartum acute Abnormal glucose level acute Anxiety acute Depression acute [id number] acute IUGR (intrauterine growth restriction) acute Marijuana use, episodic acut e Polyhydramnios affecting acute acute Rh negative status during acute Supervision of high risk , antepartum acute Threatened labor acu [facility] Work Phone: Evaluation note* Diagnosis Threatened labor, antepartum Threatened premature labor, antepartum documented in this encounter [facility] Work Phone: Evaluation note* Diagnosis Viral illness- Primary Unspecified viral infection, in conditions classified elsewhere and of unspecified site Sore throat Acute pharyngitis [facility] Diagnosis Onset Date Resolution Status Abdominal [...] during acute Abnormal glucose level resol pan [id number] resolved IUGR (intrauterine growth restriction) resolved Polyhydramnios affecting resolved resolved Supervision of high risk , antepartum resolved Anxiety acute Depression acute Dichorionic diamniotic twin acute Marijuana use, episodic acut e Rh negative status during acute Abnormal glucose level resol pan [id number] resolved IUGR (intrauterine growth restriction) resolved Polyhydramnios affecting resolved resolved Supervision of high risk , antepartum resolved Anxiety acute Depression acute Marijuana use, episodic acut e Rh negative status during acute Abnormal glucose level resol pan [id number] resolved IUGR (intrauterine growth restriction) resolved Polyhydramnios affecting resolved resolved Supervision of high risk , antepartum resolved Threatened labor res [facility] Anxiety acute Depression acute Dichorionic diamniotic twin acute Marijuana use, episodic acut e Rh negative status during acute Threatened labor, antepartum acute Anxiety acute delivery delivered acute Depression acute Dichorionic diamniotic twin acute Marijuana use, episodic acut e Rh negative status during acute Abnormal glucose level resol pan [id number] resolved IUGR (intrauterine growth restriction) resolved Polyhydramnios affecting resolved resolved labor resolved [id number] resolved Supervision of high risk , antepartum resolved Threatened labor res [facility] Work Phone: Evaluation note* Diagnosis Acute cough- Primary URI, acute Acute upper respiratory infections of unspecified site [facility] this encounter [facility] Diagnosis Onset Date Resolution Status Anxiety acute Depression acute Dichorionic diamniotic twin resolved Marijuana use, episodic reso lved resolved Rh negative status during resolved Supervision of high risk , antepartum resolved Anxiety acute Depression acute Abnormal glucose level resol pan Dichorionic diamniotic twin resolved [id number] resolved IUGR (intrauterine growth restriction) resolved Marijuana use, episodic reso lved Polyhydramnios affecting resolved resolved Rh negative status during resolved Supervision of high risk , antepartum resolved Anxiety acute Depression acute Abnormal glucose level resol pan Dichorionic diamniotic twin resolved [id number] resolved IUGR (intrauterine growth restriction) resolved Marijuana use, episodic reso lved Polyhydramnios affecting resolved resolved Rh negative status during resolved Supervision of high risk , antepartum resolved Lower extremity edema resolv ed Anxiety acute Depression acute Abnormal glucose level resol pan [id number] resolved IUGR (intrauterine growth restriction) resolved Marijuana [...] delivery delivered resolved Dichorionic diamniotic twin resolved [id number] resolved IUGR (intrauterine growth restriction) resolved Marijuana use, episodic reso lved Polyhydramnios affecting resolved resolved labor resolved [id number] resolved Rh negative status during resolved Supervision of high risk , antepartum resolved Threatened labor res olved Postop check noneactive Anxiety acute Depression acute delivery delivered resolved care and examination noneactive Routine gynecological examination noneactive [facility] Work Phone: Evaluation note* Diagnosis Myalgias- Primary Arthralgia of multiple joints Pain in joint, multiple sites Positive BING (antinuclear antibody) Other and unspecified nonspecific immunological findings [facility]* Diagnosis Pain in joint, multiple sites- Primary Malaise and fatigue Other malaise and fatigue Fibromyalgia Mylagia and myositis, unspecified BING positive Other and unspecified nonspecific immunological findings [facility]* Diagnosis Generalized anxiety disorder- Primary 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 [facility]* Diagnosis Headaches- Primary BING positive Other and unspecified nonspecific immunological findings Fibromyalgia Mylagia and myositis, unspecified Malaise and fatigue Other malaise and fatigue Pain in joint, multiple sites [facility]* Diagnosis New daily persistent headache- Primary Headaches Mixed headache Headache Medication overuse headache Drug induced headache, not elsewhere classified [facility]* Diagnosis Generalized anxiety disorder- Primary Mixed hyperlipidemia Fibromyalgia Mylagia and myositis, unspecified GERD without esophagitis Esophageal reflux Migraine without status migrainosus, not intractable, unspecified migraine type [facility] this [facility]* Diagnosis Chronic daily headache- Primary Headache [facility]* Diagnosis Generalized anxiety disorder [facility]* Diagnosis Generalized anxiety disorder documented in this encounter [facility] note* Diagnosis Moderate episode of recurrent major depressive disorder (HCC)- Primary Generalized anxiety disorder Migraine without status migrainosus, not intractable, unspecified migraine type documented in this encounter [facility] note* Diagnosis Generalized anxiety disorder Fibromyalgia Mylagia and myositis, unspecified [facility] this [facility]* Diagnosis Bipolar affective disorder, currently manic, moderate (HCC)- Primary Bipolar I disorder, most recent episode (or current) manic, moderate documented in this encounter [facility] note* Diagnosis Bipolar affective disorder, currently manic, moderate (HCC)- Primary Bipolar I disorder, most recent episode (or current) manic, moderate Generalized anxiety disorder [facility]* Diagnosis Generalized anxiety disorder [facility]* Diagnosis Generalized anxiety disorder [facility]* Diagnosis New daily persistent headache Mixed headache Headache Medication overuse headache Drug induced headache, not elsewhere classified documented in this encounter [facility] note* Diagnosis Mixed hyperlipidemia documented in this encounter [facility] note* Diagnosis Bipolar affective disorder, currently manic, moderate (HCC) Bipolar I disorder, most recent episode (or current) manic, moderate documented in this encounter [facility] note* Diagnosis Generalized anxiety disorder Bipolar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 prosecute any alcohol or drug abuse patient.[facility] CenterIn the event this information is protected by the Federal Confidentiality of Alcohol and Drug Abuse Patient Records regulations: The Federal rules restrict any use of the information to criminally investigate or prosecute any alcohol or drug abuse patient.[facility] CenterIn the event this information is protected by the Federal Confidentiality of Alcohol and Drug Abuse Patient Records regulations: The Federal rules restrict any use of the information to criminally investigate or prosecute any alcohol or drug abuse patient.[facility] CenterIn the event this information is protected by the Federal Confidentiality of Alcohol and Drug Abuse Patient Records regulations: The Federal rules restrict any use of the information to criminally investigate or prosecute any alcohol or drug abuse patient.[facility] CenterIn the event this information is protected by the Federal Confidentiality of Alcohol and Drug Abuse Patient Records regulations: The Federal rules restrict any use of the information to criminally investigate or prosecute any alcohol or drug abuse patient.[facility] CenterIn the event this information is protected by the Federal Confidentiality of Alcohol and Drug Abuse Patient Records regulations: The Federal rules restrict any use of the information to criminally investigate or prosecute any alcohol or drug abuse patient.[facility] CenterIn the event this information is protected by the Federal Confidentiality of Alcohol and Drug Abuse Patient Records regulations: The Federal rules restrict any use of the information to criminally investigate or prosecute any alcohol or drug abuse patient.[facility] CenterIn the event this information is protected by the Federal Confidentiality of Alcohol and Drug Abuse Patient Records regulations: The Federal rules restrict any use of the information to criminally investigate or prosecute any alcohol or drug abuse patient.[facility] CenterIn the event this information is protected by the Federal Confidentiality of Alcohol and Drug Abuse Patient Records regulations: The Federal rules restrict any use of the information to criminally investigate or prosecute any alcohol or drug abuse patient.[facility] CenterIn the event this information is protected by the Federal Confidentiality of Alcohol and Drug Abuse Patient Records regulations: The Federal rules restrict any use of the information to criminally investigate or prosecute any alcohol or drug abuse patient.[facility] CenterIn the event this information is protected by the Federal Confidentiality of Alcohol and Drug Abuse Patient Records regulations: The Federal rules restrict any use of the information to criminally investigate or prosecute any alcohol or drug abuse patient.[facility] CenterIn the event this information is protected by the Federal Confidentiality of Alcohol and Drug Abuse Patient Records regulations: The Federal rules restrict any use of the information to criminally investigate or prosecute any alcohol or drug abuse patient.[facility] CenterIn the event this information is protected by the Federal Confidentiality of Alcohol and Drug Abuse Patient Records regulations: The Federal rules restrict any use of the information to criminally investigate or prosecute any alcohol or drug abuse patient.[facility] CenterIn the event this information is protected by the Federal Confidentiality of Alcohol and Drug Abuse Patient Records regulations: The Federal rules restrict any use of the information to criminally investigate or prosecute any alcohol or drug abuse patient.[facility] CenterIn the event this information is protected by the Federal Confidentiality of Alcohol and Drug Abuse Patient Records regulations: The Federal rules restrict any use of the information to criminally investigate or prosecute any alcohol or drug abuse patient.[facility] CenterIn the event this information is protected by the Federal Confidentiality of Alcohol and Drug Abuse Patient Records regulations: The Federal rules restrict any use of the information to criminally investigate or prosecute any alcohol or drug abuse patient.[facility] CenterIn the event this information is protected by the Federal Confidentiality of Alcohol and Drug Abuse Patient Records regulations: The Federal rules restrict any use of the information to criminally investigate or prosecute any alcohol or drug abuse patient.[facility] CenterIn the event this information is protected by the Federal Confidentiality of Alcohol and Drug Abuse Patient Records regulations: The Federal rules restrict any use of the information to criminally investigate or prosecute any alcohol or drug abuse patient.[facility] CenterIn the event this information is protected by the Federal Confidentiality of Alcohol and Drug Abuse Patient Records regulations: The Federal rules restrict any use of the information to criminally investigate or prosecute any alcohol or drug abuse patient.[facility] CenterIn the event this information is protected by the Federal Confidentiality of Alcohol and Drug Abuse Patient Records regulations: The Federal rules restrict any use of the information to criminally investigate or prosecute any alcohol or drug abuse patient.[facility] CenterIn the event this information is protected by the Federal Confidentiality of Alcohol and Drug Abuse Patient Records regulations: The Federal rules restrict any use of the information to criminally investigate or prosecute any alcohol or drug abuse patient.[facility] CenterIn the event this information is protected by the Federal Confidentiality of Alcohol and Drug Abuse Patient Records regulations: The Federal rules restrict any use of the information to criminally investigate or prosecute any alcohol or drug abuse patient.[facility] CenterIn the event this information is protected by the Federal Confidentiality of Alcohol and Drug Abuse Patient Records regulations: The Federal rules restrict any use of the information to criminally investigate or prosecute any alcohol or drug abuse patient.[facility] CenterIn the event this information is protected by the Federal Confidentiality of Alcohol and Drug Abuse Patient Records regulations: The Federal rules restrict any use of the information to criminally investigate or prosecute any alcohol or drug abuse patient.[facility] CenterIn the event this information is protected by the Federal Confidentiality of Alcohol and Drug Abuse Patient Records regulations: The Federal rules restrict any use of the information to criminally investigate or prosecute any alcohol or drug abuse patient.[facility] CenterIn the event this information is protected by the Federal Confidentiality of Alcohol and Drug Abuse Patient Records regulations: The Federal rules restrict any use of the information to criminally investigate or prosecute any alcohol or drug abuse patient.[facility] CenterIn the event this information is protected by the Federal Confidentiality of Alcohol and Drug Abuse Patient Records regulations: The Federal rules restrict any use of the information to criminally investigate or prosecute any alcohol or drug abuse patient.[facility] CenterIn the event this information is protected by the Federal Confidentiality of Alcohol and Drug Abuse Patient Records regulations: The Federal rules restrict any use of the information to criminally investigate or prosecute any alcohol or drug abuse patient.[facility] CenterIn the event this information is protected by the Federal Confidentiality of Alcohol and Drug Abuse Patient Records regulations: The Federal rules restrict any use of the information to criminally investigate or prosecute any alcohol or drug abuse patient.[facility] CenterIn the event this information is protected by the Federal Confidentiality of Alcohol and Drug Abuse Patient Records regulations: The Federal rules restrict any use of the information to criminally investigate or prosecute any alcohol or drug abuse patient.[facility] CenterIn the event this information is protected by the Federal Confidentiality of Alcohol and Drug Abuse Patient Records regulations: The Federal rules restrict any use of the information to criminally investigate or prosecute any alcohol or drug abuse patient.[facility] CenterIn the event this information is protected by the Federal Confidentiality of Alcohol and Drug Abuse Patient Records regulations: The Federal rules restrict any use of the information to criminally investigate or prosecute any alcohol or drug abuse patient.[facility] CenterIn the event this information is protected by the Federal Confidentiality of Alcohol and Drug Abuse Patient Records regulations: The Federal rules restrict any use of the information to criminally investigate or prosecute any alcohol or drug abuse patient.[facility] CenterIn the event this information is protected by the Federal Confidentiality of Alcohol and Drug Abuse Patient Records regulations: The Federal rules restrict any use of the information to criminally investigate or prosecute any alcohol or drug abuse patient.[facility] CenterIn the event this information is protected by the Federal Confidentiality of Alcohol and Drug Abuse Patient Records regulations: The Federal rules restrict any use of the information to criminally investigate or prosecute any alcohol or drug abuse patient.[facility] CenterIn the event this information is protected by the Federal Confidentiality of Alcohol and Drug Abuse Patient Records regulations: The Federal rules restrict any use of the information to criminally investigate or prosecute any alcohol or drug abuse patient.[facility] CenterIn the event this information is protected by the Federal Confidentiality of Alcohol and Drug Abuse Patient Records regulations: The Federal rules restrict any use of the information to criminally investigate or prosecute any alcohol or drug abuse patient.[facility] CenterIn the event this information is protected by the Federal Confidentiality of Alcohol and Drug Abuse Patient Records regulations: The Federal rules restrict any use of the information to criminally investigate or prosecute any alcohol or drug abuse patient.[facility] CenterIn the event this information is protected by the Federal Confidentiality of Alcohol and Drug Abuse Patient Records regulations: The Federal rules restrict any use of the information to criminally investigate or prosecute any alcohol or drug abuse patient.[facility] CenterIn the event this information is protected by the Federal Confidentiality of Alcohol and Drug Abuse Patient Records regulations: The Federal rules restrict any use of the information to criminally investigate or prosecute any alcohol or drug abuse patient.[facility] CenterIn the event this information is protected by the Federal Confidentiality of Alcohol and Drug Abuse Patient Records regulations: The Federal rules restrict any use of the information to criminally investigate or prosecute any alcohol or drug abuse patient.[facility] CenterIn the event this information is protected by the Federal Confidentiality of Alcohol and Drug Abuse Patient Records regulations: The Federal rules restrict any use of the information to criminally investigate or prosecute any alcohol or drug abuse patient.[facility] CenterIn the event this information is protected by the Federal Confidentiality of Alcohol and Drug Abuse Patient Records regulations: The Federal rules restrict any use of the information to criminally investigate or prosecute any alcohol or drug abuse patient.[facility] CenterIn the event this information is protected by the Federal Confidentiality of Alcohol and Drug Abuse Patient Records regulations: The Federal rules restrict any use of the information to criminally investigate or prosecute any alcohol or drug abuse patient.[facility] CenterIn the event this information is protected by the Federal Confidentiality of Alcohol and Drug Abuse Patient Records regulations: The Federal rules restrict any use of the information to criminally investigate or prosecute any alcohol or drug abuse patient.[facility] CenterIn the event this information is protected by the Federal Confidentiality of Alcohol and Drug Abuse Patient Records regulations: The Federal rules restrict any use of the information to criminally investigate or prosecute any alcohol or drug abuse patient.[facility] CenterIn the event this information is protected by the Federal Confidentiality of Alcohol and Drug Abuse Patient Records regulations: The Federal rules restrict any use of the information to criminally investigate or prosecute any alcohol or drug abuse patient.[facility] CenterIn the event this information is protected by the Federal Confidentiality of Alcohol and Drug Abuse Patient Records regulations: The Federal rules restrict any use of the information to criminally investigate or prosecute any alcohol or drug abuse patient.[facility] CenterIn the event this information is protected by the Federal Confidentiality of Alcohol and Drug Abuse Patient Records regulations: The Federal rules restrict any use of the information to criminally investigate or prosecute any alcohol or drug abuse patient.[facility] CenterIn the event this information is protected by the Federal Confidentiality of Alcohol and Drug Abuse Patient Records regulations: The Federal rules restrict any use of the information to criminally investigate or prosecute any alcohol or drug abuse patient.[facility] CenterIn the event this information is protected by the Federal Confidentiality of Alcohol and Drug Abuse Patient Records regulations: The Federal rules restrict any use of the information to criminally investigate or prosecute any alcohol or drug abuse patient.[facility] CenterIn the event this information is protected by the Federal Confidentiality of Alcohol and Drug Abuse Patient Records regulations: The Federal rules restrict any use of the information to criminally investigate or prosecute any alcohol or drug abuse patient.[facility] CenterIn the event this information is protected by the Federal Confidentiality of Alcohol and Drug Abuse Patient Records regulations: The Federal rules restrict any use of the information to criminally investigate or prosecute any alcohol or drug abuse patient.[facility] CenterIn the event this information is protected by the Federal Confidentiality of Alcohol and Drug Abuse Patient Records regulations: The Federal rules restrict any use of the information to criminally investigate or prosecute any alcohol or drug abuse patient.[facility] CenterIn the event this information is protected by the Federal Confidentiality of Alcohol and Drug Abuse Patient Records regulations: The Federal rules restrict any use of the information to criminally investigate or prosecute any alcohol or drug abuse patient.[facility] CenterIn the event this information is protected by the Federal Confidentiality of Alcohol and Drug Abuse Patient Records regulations: The Federal rules restrict any use of the information to criminally investigate or prosecute any alcohol or drug abuse patient.[facility] CenterIn the event this information is protected by the Federal Confidentiality of Alcohol and Drug Abuse Patient Records regulations: The Federal rules restrict any use of the information to criminally investigate or prosecute any alcohol or drug abuse patient.[facility] CenterIn the event this information is protected by the Federal Confidentiality of Alcohol and Drug Abuse Patient Records regulations: The Federal rules restrict any use of the information to criminally investigate or prosecute any alcohol or drug abuse patient.[facility] Care Teams (unrecognized sec tion and content) Unit Aid Relationship Specialty Start Date End Date Roger Cohen MD [address] [place], [place] [id number] PCP - General Internal Medicine 07/23/14 Unit Aid Relationship Specialty Start Date End Date Roger Cohen MD [address] [place], [place] [id number] PCP - General Internal Medicine 07/23/14 Unit Aid Relationship Specialty Start Date End Date Roger Cohen MD [address] [place], [place] [id number] PCP - General Internal Medicine 10/19/22 Unit Aid Relationship Specialty Start Date End Date Jennifer Christina MD [address] [facility] [address] [place] [address] PCP - General Family Medicine 10/20/22 Unit Aid Relationship Specialty Start Date End Date Jennifer Christina MD [address] [place] [address] PCP - General Family Medicine 10/20/22 Unit Aid Relationship Specialty Start Date End Date Jennifer Christina MD [address] [place] [address] PCP - General Family Medicine 10/20/22 Unit Aid Relationship Specialty Start Date End Date Jennifer Christina MD [address] [place] [address] PCP - General Family Medicine 10/20/22 Maria Luisa Tyler MD [address] [place] [address] Referring Internal Medicine 11/03/22 Unit Aid Relationship Specialty Start Date End Date Jennifer Christina MD [address] [place] [address] PCP - General Family Medicine 10/20/22 Maria Luisa Tyler MD [address] [place] [address] Referring Internal Medicine 11/03/22 Unit Aid Relationship Specialty Start Date End Date Jennifer Christina MD [address] [place] [address] PCP - General Family Medicine 10/20/22 Maria Luisa Tyler MD [address] [place] [address] Referring Internal Medicine 11/03/22 Unit Aid Relationship Specialty Start Date End Date Jennifer Christina MD [address] [place] [address] PCP - General Family Medicine 10/20/22 Maria Luisa Tyler MD [address] [place] [address] Referring Internal Medicine 11/03/22 Unit Aid Relationship Specialty Start Date End Date Jennifer Christina MD [address] [place] [address] PCP - General Family Medicine 10/20/22 Maria Luisa Tyler MD [address] [place] [address] Referring Internal Medicine 11/03/22 Unit Aid Relationship Specialty Start Date End Date Jennifer Christina MD [address] [place] [address] PCP - General Family Medicine 10/20/22 Maria Luisa Tyler MD [address] [place] [address] Referring Internal Medicine 11/03/22 Unit Aid Relationship Specialty Start Date End Date Jennifer Christina MD [address] [place] [address] PCP - General Family Medicine 10/20/22 Maria Luisa Tyler MD [address] [place] [address] Referring Internal Medicine 11/03/22 Unit Aid Relationship Specialty Start Date End Date Jennifer Christina MD [address] [place] [address] PCP - General Family Medicine 10/20/22 Maria Luisa Tyler MD [address] [place] [address] Referring Internal Medicine 11/03/22 Unit Aid Relationship Specialty Start Date End Date Jennifer Christina MD [address] [place] [address] PCP - General Family Medicine 10/20/22 Maria Luisa Tyler MD [address] [place] [address] Referring Internal Medicine 11/03/22 Unit Aid Relationship Specialty Start Date End Date Jennifer Christina MD [address] [place] [address] PCP - General Family Medicine 10/20/22 Maria Luisa Tyler MD [address] [place] [address] Referring Internal Medicine 11/03/22 Unit Aid Relationship Specialty Start Date End Date Jennifer Christina MD [address] [place] [address] PCP - General Family Medicine 10/20/22 Maria Luisa Tyler MD [address] [place] [address] Referring Internal Medicine 11/03/22 Unit Aid Relationship Specialty Start Date End Date Jennifer Christina MD [address] [place] [address] PCP - General Family Medicine 10/20/22 Maria Luisa Tyler MD [address] [place] [address] Referring Internal Medicine 11/03/22 Unit Aid Relationship Specialty Start Date End Date Jennifer Christina MD [address] [place] [address] PCP - General Family Medicine 10/20/22 Maria Luisa Tyler MD [address] [place] [address] Referring Internal Medicine 11/03/22 Unit Aid Relationship Specialty Start Date End Date Jennifer Christina MD [address] [place] [address] PCP - General Family Medicine 10/20/22 Maria Luisa Tyler MD [address] [place] [address] Referring Internal Medicine 11/03/22 Unit Aid Relationship Specialty Start Date End Date Jennifer Christina MD [address] [place] [address] PCP - General Family Medicine 10/20/22 Maria Luisa Tyler MD [address] [place] [address] Referring Internal Medicine 11/03/22 Unit Aid Relationship Specialty Start Date End Date Jennifer Christina MD [address] [place], [place] [address] PCP - General Family Medicine 10/20/22 Maria Luisa Tyler MD [address] [place] [address] Referring Internal Medicine 11/03/22 Unit Aid Relationship Specialty Start Date End Date Jennifer Christina MD [address] [place], [place] [address] PCP - General Family Medicine 10/20/22 Maria Luisa Tyler MD [address] [place] [address] Referring Internal Medicine 11/03/22 Unit Aid Relationship Specialty Start Date End Date Jennifer Christina MD [address] [place] [address] PCP - General Family Medicine 10/20/22 Maria Luisa Tyler MD [address] [place] [address] Referring Internal Medicine 11/03/22 Unit Aid Relationship Specialty Start Date End Date Jennifer Christina MD [address] [place] [address] PCP - General Family Medicine 10/20/22 Maria Luisa Tyler MD [address] [place] [address] Referring Internal Medicine 11/03/22 Unit Aid Relationship Specialty Start Date End Date Jennifer Christina MD [address] [place] [address] PCP - General Family Medicine 10/20/22 Maria Luisa Tyler MD [address] [place], [place] [address] Referring Internal Medicine 11/03/22 Unit Aid Relationship Specialty Start Date End Date Jennifer Christina MD [address] [place], [place] [id number] PCP - General Family Medicine 10/20/22 Maria Luisa Tyler MD [address] [place], [place] [address] Referring Internal Medicine 11/03/22 Team Status: Active Member Role Status Dates Dr. Roger Cohen MD Family Provider Active JENNIFER WERNER Primary Care Provider Active Team Status: Inactive Member Role Status Dates Dr. Eliseo Ricardo DO Emergency Provider Active ALPHONSO RODRIGUEZ Primary Care Provider Active Unit Aid Relationship Specialty Start Date End Date Jennifer Christina MD [address] [place] [address] PCP - General Family Medicine 10/20/22 Maria Luisa Tyler MD [address] [place], [place] [id number] Referring Internal Medicine 11/03/22 Unit Aid Relationship Specialty Start Date End Date Jennifer Christina MD [address] [place] [address] PCP - General Family Medicine 10/20/22 Maria Luisa Tyler MD [address] [place], [place] [address] Referring Internal Medicine 11/03/22 Unit Aid Relationship Specialty Start Date End Date Jennifer Christina MD [address] [place], [place] [address] PCP - General Family Medicine 10/20/22 Maria Luisa Tyler MD [address] [place] [address] Referring Internal Medicine 11/03/22 Unit Aid Relationship Specialty Start Date End Date Jennifer Christina MD [address] [place] [address] PCP - General Family Medicine 10/20/22 Maria Luisa Tyler MD [address] [place] [address] Referring Internal Medicine 11/03/22 Unit Aid Relationship Specialty Start Date End Date Jennifer Christina MD [address] [place] [address] PCP - General Family Medicine 10/20/22 Maria Luisa Tyler MD [address] [place] [address] Referring Internal Medicine 11/03/22 Unit Aid Relationship Specialty Start Date End Date Jennifer Christina MD [address] [place] [address] PCP - General Family Medicine 10/20/22 Maria Luisa Tyler MD [address] [place] [address] Referring Internal Medicine 11/03/22 Unit Aid Relationship Specialty Start Date End Date Jennifer Christina MD [address] [place] [address] PCP - General Family Medicine 10/20/22 Maria Luisa Tyler MD [address] [place] [address] Referring Internal Medicine 11/03/22 Unit Aid Relationship Specialty Start Date End Date Jennifer Christina MD [address] [place] [address] PCP - General Family Medicine 10/20/22 Maria Luisa Tyler MD [address] [place] [address] Referring Internal Medicine 11/03/22 Unit Aid Relationship Specialty Start Date End Date Jennifer Christina MD [address] [place] [address] PCP - General Family Medicine 10/20/22 Maria Luisa Tyler MD [address] [place] [address] Referring Internal Medicine 11/03/22 Unit Aid Relationship Specialty Start Date End Date Roger Cohen MD [address] [place] [address] PCP - General Internal Medicine 07/23/14 10/18/22 Unit Aid Relationship Specialty Start Date End Date Roger Cohen MD [address] [place] [address] PCP - General Internal Medicine 07/23/14 10/18/22 Unit Aid Relationship Specialty Start Date End Date Jennifer Christina MD [address] [place] [address] PCP - General Family Medicine 10/20/22 Maria Luisa Tyler MD [address] [place] [address] Referring Internal Medicine 11/03/22 Unit Aid Relationship Specialty Start Date End Date Jennifer Christina MD [address] [place] [address] PCP - General Family Medicine 10/20/22 Maria Luisa Tyler MD [address] [place] [address] Referring Internal Medicine 11/03/22 Unit Aid Relationship Specialty Start Date End Date Jennifer Christina MD [address] [place] [address] PCP - General Family Medicine 10/20/22 Maria Luisa Tyler MD [address] [place] [address] Referring Internal Medicine 11/03/22 Unit Aid Relationship Specialty Start Date End Date Jennifer Christina MD [address] [place] [address] PCP - General Family Medicine 10/20/22 Maria Luisa Tyler MD [address] [place] [address] Referring Internal Medicine 11/03/22 Unit Aid Relationship Specialty Start Date End Date Jennifer Werner MD [address] [place] [address] PCP - General Family Medicine 10/20/22 Maria Luisa Tyler MD [address] [place] [address] Referring Internal Medicine 11/03/22 Unit Aid Relationship Specialty Start Date End Date Jennifer Werner MD [address] [place] [address] PCP - General Family Medicine 10/20/22 Maria Luisa Tyler MD [address] [place] [address] Referring Internal Medicine 11/03/22 Unit Aid Relationship Specialty Start Date End Date Jennifer Werner MD [address] [place] [address] PCP - General Family Medicine 10/20/22 Maria Luisa Tyler MD [address] [place] [address] Referring Internal Medicine 11/03/22 Unit Aid Relationship Specialty Start Date End Date Jennifer Werner MD [address] [place] [address] PCP - General Family Medicine 10/20/22 Maria Luisa Tyler MD [address] [place] [address] Referring Internal Medicine 11/03/22 Team Status: Active Member Role Status Dates Out of [facility] Doctor Primary Care Provider Active Team Status: [...] 2025 End: February 08, 2025 Out of [facility] Doctor Primary Care Provider Active Start: February [...] February 18, 2025 End: February 18, 2025 Unit Aid Relationship Specialty Start Date End Date Jennifer Werner MD [address] [facility] [address] [place] [address] PCP - General Family Medicine 10/20/22 Maria Luisa Tyler MD [address] [place], [place] [address] Referring Internal Medicine 11/03/22 Unit Aid Relationship Specialty Start Date End Date Jennifer Werner MD [address] [place], [place] [address] PCP - General Family Medicine 10/20/22 Maria Luisa Tyler MD [address] [place], [place] [address] Referring Internal Medicine 11/03/22 Team Status: Inactive [...] February 27, 2025 End: February 27, 2025 Unit Aid Relationship Specialty Start Date End Date Jennifer Werner MD [address] [place] [address] PCP - General Family Medicine 10/20/22 Maria Luisa Tyler MD [address] [place], [place] [address] Referring Internal Medicine 11/03/22 Team Status: Inactive [...] 2025 End: March 27, 2025 Cinthia Flores COURTESY DRIVER, COURTESY DRIVER-C Attending Provider Active Start: March 27, 2025 [...] 2025 End: February 08, 2025 Out of [facility] Doctor Primary Care Provider Active Start: February 08, 2025 End: February 08, 2025 Team Status: Inactive Member Role/Relationship Status Dates Dr. Kevin Heart DO Attending Provider Active Start: February 18, 2025 End: February 18, 2025 Dr. Kevin Heart DO Emergency Provider Active Start: February 18, 2025 End: February 18, 2025 Dr. Jennifer Wrener MD Primary Care Provider Active Start: February [...] 2025 End: March 27, 2025 Cinthia Flores COURTESY DRIVER, COURTESY DRIVER-C Attending Provider Active Start: March 27, 2025 [...] Member Role: Primary Care Physician Address: Address: [address] [place] [address]- Name: CEZAR FRENCH MD Position: ED Physician Member Role: ED Physician Address: Address: [address] [place] [address]- Name: Saranya Hebert RN Position: AO RN Member Role: ED RN Care Team Related Persons Name: SERENITY DRAKE Address: [facility] Name: SERENITY DRAKE Address: [facility] Name: GABI TONEY Address: Home [address] [place] [address] Name: AMAURY TONEY Address: Home [address] [place] [address] Care Team Personnel Name: ROGER COHEN MD Member Role: Primary Care Physician Address: Address: [address] [place], [place] [address] [[email or web address]] Name: MUMTAZ Menezes Position: AO RN Member Role: ED RN Name: MAVIS SHEPARD MD Position: ED Physician Member Role: ED Physician Address: Address: [address] [address] [[email or web address]] Care Team Related Persons Name: SERENITY DRAKE Address: [facility] Name: SERENITY DRAKE Address: [facility] Name: GABI TONEY Address: [place] [address] Name: AMAURY TONEY Address: [place] [address] FOR RECORDS PERTAINING TO PATIENTS WHO ARE [...] BE BASED ON THE PRIMARY CLINICAL RECORDS. [facility] [employer] provides no warranty or guarantee of the accuracy or completeness of information in this document.
== END 2025-04-08 19:34 | disposition home or self-care (01) ==
PROVIDERS: Emergency Provider Emergency Medicine; PCP Family Medicine; Visit Provider Emergency Medicine
DX: R10.9 Unspecified abdominal pain (principal); R11.0 Nausea; Z87.891 Personal history of nicotine dependence; N80.03 Adenomyosis of the uterus; J45.909 Unspecified asthma, uncomplicated
CPT/HCPCS: 74177; 80053; 81001; 83690; 84703; 85025; 96374; 96375; 96376; 99284; Q9967; A4216; J2405

== ENCOUNTER 2025-05-08 11:16 | Emergency (ER) | payer MEDICAID, SELFPAY ==
[2025-05-08 11:17] VITALS: BP 118/84; PULSE 58; RESP 15; TEMP 36.6; O2SAT 100; BMI 28.7
--- NOTE | 2025-05-08 11:27 | ED.VIS.FEGU ---
HPI HPI - Female History of Present Illness Chief Complaint: Female C/O Informant: patient Pain Pain: Positive for Pelvic Pain Onset: Days (2) Context: Sudden Onset Timing: Continuous Quality: Positive for Cramping and Sharp Location: RLQ, LLQ, Suprapubic and Back Worsened by: - (Nothing) Relieved by: - (Heating pad, movement) Associated Symptoms Associated Symptoms: Negative for Dysuria, Frequency or Hematuria Narrative Narrative: Patient presents with pelvic and back pain has been getting worse over the past 2 days. Patient states it began rather suddenly. Patient states it has been constant. Patient describes her pain as sharp and cramping. Patient states it is diffuse across her pelvis and into her lower back. Patient states she has been using a heating pad which has been helping somewhat. Patient states her pain also improves when she starts to get up to walk. However, after some prolonged walking, her pain gets worse. Patient states she is scheduled for hysterectomy on 05/21/2025 for adenomyosis and PCOS. PFSH [facility] Medical History Marijuana use Smoker Dyspareunia depression History of premature rupture of membranes (PPROM) History of pre-term labor Polyhydramnios Asthma Anxiety Polyhydramnios affecting IUGR (intrauterine growth restriction) Former smoker Hyperemesis Vaginal bleeding during Dichorionic diamniotic twin Rh negative status during Infertility Supervision of high risk , antepartum Marijuana use, episodic Concussion without loss of consciousness Cervical strain COVID-19 Depression Back pain Abnormal bruising Knee pain Chest pain Migraines Fatigue Shoulder pain Home Medications ?Medication ?Instructions ?Recorded ?Last Taken ?Type sertraline 100 mg tablet (Zoloft) 200 mg PO DAILY Check with primary 06/18/22 06/24/22 10:00 History doctor lithium carbonate 450 mg 450 mg PO DAILY 04/25/25 Unknown History tablet,extended release hydrocodone-acetaminophen 5-325mg 1 tab PO Q6H PRN PRN Pain 3 days 05/08/25 Unknown Rx 5mg-325mg #10 TABLETS Allergy/AdvReac Type Severity Reaction Status Date / Time dicyclomine (From Bentyl) Allergy migraine Verified 05/08/25 11:19 Penicillins Allergy Rash Verified 05/08/25 11:19 Surgical History Status post bilateral salpingectomy delivery delivered H/O dilation and curettage Social History adopted: No household members: significant other and children number of children: 2 current occupational status: employed 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; [employer] Smoking Status: Light Smoker (<10/day) alcohol intake: current details: occasionally; not while substance use type: marijuana caffeine: Yes what type of physical activity do you participate in: none seatbelt use: always do you feel safe at home: Yes additional social history: Baljinder WEBB ROS ED Constitutional Constitutional ED: Denies chills or fever(s) Eyes Eyes: Denies blurry vision or change in vision ENT ENT ED: Reports sore throat; Denies rhinorrhea Cardiovascular Cardiovascular: Denies chest pain or palpitations Respiratory/Chest Respiratory/Chest: Denies cough or dyspnea Gastrointestinal Gastrointestinal: Denies nausea or vomiting Genitourinary Genitourinary ED: Denies dysuria or hematuria Musculoskeletal Musculoskeletal: Reports back pain; Denies neck pain Integumentary Denies abscess or rash Neurologic Neurologic: Denies headache(s) or weakness Allergic/Immunologic Allergic/Immunologic ED: Denies mouth swelling or urticaria EXAM Physical Exam Const Vital Signs: 05/08/25 11:17 05/08/25 13:17 Temperature 97.9 F Temperature Source Oral Pulse Rate 58 L 45 L Respiratory Rate 15 18 Blood Pressure 118/84 H 114/66 Blood Pressure Mean 95 82 Pulse Ox 100 99 Oxygen Delivery Method Room Air Room Air Positive well nourished and well developed General Appearance ED: well developed and NAD HEENT Reports moist mucous membranes Neck supple and no JVD Resp normal respiratory effort and clear to auscultation bilaterally Cardio regular rate and regular rhythm GI soft to palpation and non-distended Palpation: tender LLQ, RLQ and suprapubic; Negative for guarding Neuro oriented x3, CN's II-XII intact bilaterally and no sensory deficits noted Sensorium / Orientation: alert Motor Exam: strength 5/5 throughout Psych mental status grossly normal MDM MDM MDM Narrative Medical decision making narrative: Differential diagnosis includes urinary tract infection, uterine fibroid, endometriosis, dysmenorrhea, electrolyte abnormality, and anxiety. CBC will be obtained to assess for leukocytosis and anemia. Basic metabolic profile will be obtained to assess for electrolyte abnormality renal function. Urinalysis will be obtained to assess for urinary tract infection and hematuria. History & Record Review Additional record(s) reviewed:: Prior ED visit and Prior labs Lab Data Attestation: I reviewed the patient's lab results. Lab results narrative: CBC was reviewed and was within normal limits. Basic metabolic profile was reviewed and was within normal limits. Urinalysis was reviewed. There is no evidence of urinary tract infection or hematuria. Labs: Laboratory Results - last 24 hr 05/08/25 05/08/25 13:29 13:48 WBC 7.8 RBC 4.37 Hgb 12.7 Hct 39.1 MCV 89.5 MCH 29.1 MCHC 32.5 RDW Std Deviation 45.1 H RDW Coeff of Tulio 13.7 Plt Count 208 MPV 10.3 Immature Gran % (Auto) 0.300 Neut % (Auto) 56.4 Lymph % (Auto) 33.5 [place] % (Auto) 6.2 Eos % (Auto) 2.8 Baso % (Auto) 0.8 Absolute Neuts (auto) 4.4 Absolute Lymphs (auto) 2.60 Nucleated RBC % 0 Sodium 138 Potassium 3.9 Chloride 108 Carbon Dioxide 20.4 L Anion Gap 10 BUN 14 Creatinine 0.53 L Estim Creat Clear Calc 139.57 Est GFR (MDRD) Non-Af 122 BUN/Creatinine Ratio 27.0 H Glucose 89 Calcium 8.9 Urine Color Yellow Urine Clarity Sl. Cloudy Urine pH 6.0 Ur Specific Sunset 1.020 Urine Protein 15 H Urine Glucose (UA) Normal Urine Ketones Negative Urine Occult Blood Negative Urine Nitrite Negative Urine Bilirubin Negative Urine Urobilinogen Normal Ur Leukocyte Esterase Negative Urine RBC 0 SEEN Urine WBC 0-5 SEEN Ur Squamous Epith Cells 5-10 SEEN Urine Bacteria 2+ Urine Mucus 0 SEEN Treatment and Re-Evaluation Narrative: Patient was given IV fluids, morphine, and Zofran. Patient was advised of her findings. Patient was given a prescription for a short course of Zuni. Patient was instructed to follow-up with her [employer] in 3 to 5 days for further evaluation. Patient was instructed to return if worse in any way. Patient understood and was agreeable with the plan. All questions were answered. Discharge Plan Triage Chief Complaint: Female C/O ED Provider: Augie Frederick Dx/Rx/DC Orders Clinical Impression: Pelvic pain, Adenomyosis Instructions: ED Pelvic Pain, Unknown Cause Prescriptions: New hydrocodone-acetaminophen 5-325 mg tablet 1 tab PO Q6H PRN PRN (Reason: Pain) 3 Days Qty: 10 0RF No Action sertraline [Zoloft] 100 mg tablet 200 mg PO DAILY lithium carbonate 450 mg tablet extended release 450 mg PO DAILY Primary Care Provider: Maria Regan Referrals: Maria Regan MD [Primary Care Provider] - 3-5 Days Print Language: Maori Disposition Disposition: Home, Self Care
[2025-05-08 13:17] VITALS: BP 114/66; PULSE 45; RESP 18; O2SAT 99
[2025-05-08] MEDS: 0.9% Normal Saline (1000mL) 1,000 ML 1000 ML IV (13:20)
[2025-05-08 13:33] LABS: Mucous, Urine 0 SEEN /hpf (<or=2+); Red Blood Cells-Urine 0 SEEN /hpf (0-5)
[2025-05-08 13:36] LABS: Color, Urine Yellow (Yellow); Glucose, Dipstick Normal (Normal); Ketone-Dipstick Negative (Negative); Leukocyte Esterase-Dipstick Negative /ul (Negative); Nitrite-Dipstick Negative (Negative); Occult Blood-Urine Negative /ul (Negative); Protein-Dipstick 15 mg/dl (Negative); Specific Gravity, Urine 1.020 (1.002-1.030); Urine Bilirubin Dipstick Negative (Negative)
[2025-05-08 13:48] LABS: Squamous Epithelial Cells - UA 5-10 SEEN /hpf (5-10)
[2025-05-08 13:55] LABS: Hematocrit 39.1 % (37-47); Hemoglobin 12.7 g/dL (12.0-15.0); Immature Granulocytes Count 0.020 X10^3/uL (0.0-0.0); Mean Corp Hgb Conc 32.5 g/dL (32-36); Mean Corpuscular Volume 89.5 fL (81-99); Mean Platelet Vol. 10.3 fl (6.2-12.0); NRBC Flagged by Analyzer 0 % (0-5); Platelet Count 208 K/mm3 (150-450); RBC Distribution Width CV 13.7 % (11.6-14.6); RBC Distribution Width SD 45.1 fl (35.1-43.9); Red Blood Count 4.37 M/mm3 (4.2-5.4); White Blood Count 7.8 K/mm3 (4.4-11.0)
[2025-05-08 14:26] LABS: Anion Gap 10 (5-15); BUN 14 mg/dL (4-19); BUN/Creat Ratio 27.0 RATIO (10-20); Calcium,Total 8.9 mg/dL (7.6-11.0); Carbon Dioxide 20.4 mmol/L (21.0-32.0); Chloride 108 mmol/L (98-108); Estimated Creatinine Clearance 139.57 ml/min (50-250); Glucose 89 mg/dL (70-99); Potassium 3.9 mmol/L (3.3-5.1)
[2025-05-08 15:13] VITALS: BP 107/62; PULSE 72; RESP 16; TEMP 36.2; O2SAT 94
== END 2025-05-08 15:27 | disposition home or self-care (01) ==
PROVIDERS: Emergency Provider Emergency Medicine; PCP Obstetrics & Gynecology; Visit Provider Emergency Medicine
DX: R10.2 Pelvic and perineal pain (principal); M54.9 Dorsalgia, unspecified; N80.03 Adenomyosis of the uterus; F17.200 Nicotine dependence, unspecified, uncomplicated; E28.2 Polycystic ovarian syndrome; J45.909 Unspecified asthma, uncomplicated
CPT/HCPCS: 80048; 81001; 85025; 96361; 96374; 96375; 99283; A4216; J2405

== ENCOUNTER 2025-05-21 07:17 | Day surgery (SDC) | payer MEDICAID, SELFPAY ==
[2025-04-26 10:52] LABS: Magnesium 2.1 mg/dL (1.5-2.2)
--- NOTE | 2025-05-20 18:33 | HP.PCM_ITS ---
History and Physical Date of Admission: 05/21/25 Intake Vital Signs 03/21/2518:11 04/08/2513:09 04/26/2508:17 04/26/2508:18 Height 5 ft 3 in 5 ft 3 in 5 ft 3 in 5 ft 3 in Weight: 163 lb 2 oz BMI 28.8 BP 114/72 Intake Visit Reasons: Pre-op [facility] Morphologist Required: No Is patient in pain?: Yes (pelvic discomfort) Pain scale (1-10): 4 Allergies dicyclomine (From Bentyl) Allergy (Verified 04/26/25 08:15) migrainePenicillins Allergy (Verified 04/26/25 08:15) Rash Medications ?Medication ?Instructions ?Recorded ?Confirmed ?Type sertraline 100 mg tablet (Zoloft) 200 mg PO DAILY Check with primary 06/1804/26/25 History doctor lithium carbonate 450 mg 450 mg PO DAILY 04/25/25 04/26/25 Histor y tablet,extended release Is last menstrual period known: Yes Last Menstrual Period: 04/21/25 Post menopausal: No Patient : No : No [facility] Medical History Marijuana use Smoker Dyspareunia depression History of premature rupture of membranes (PPROM) History of pre-term labor Polyhydramnios Asthma Anxiety Polyhydramnios affecting IUGR (intrauterine growth restriction) Former smoker Hyperemesis Vaginal bleeding during Dichorionic diamniotic twin Rh negative status during Infertility Supervision of high risk , antepartum Marijuana use, episodic Concussion without loss of consciousness Cervical strain COVID-19 Depression Back pain Abnormal bruising Knee pain Chest pain Migraines Fatigue Shoulder pain Surgical History Status post bilateral salpingectomy delivery delivered H/O dilation and curettage Social History adopted: No household members: significant other and children number of children: 2 current occupational status: employed 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 Details: LILLIAN OCHOA is a 39 year old who presents for preop appointment. persistent lower pelvic pain lasting 4--5 days at a time, isn't having any bleeding at the time. She said the first time was during a possible period, the second time it was the week kbefore she should have had a menses. she isn't having any menses, her brown discharge was happening a month ago but stopped. she has had the IUD in 3 months. she is still struggling with the pain enough that she is missing out on regular activities. Female Reproductive History Last Menstrual Period: 04/21/25 History 4 Elective abortions Hx Para 4 Spontaneous abortions 1 Hx # Term Pregnancies 2 Ectopic pregnancies Hx # Pregnancies 1 Multiple births # of living children 4 Past Pregnancies Del. Date Name GA/Weeks Outcome Route Bth Weight Infant Gen Labor Lgth Anesthesia Del Locatn Provider FOB Unknown 2018 SAB, D&C SM 08/14/09 Toby Nuñez 34 live - 4lbs 11oz Mal e 2 hours epidural [facility] 02/14/16 Emily 38 live - full term 7lbs 13oz Female 26 hours epidural Jeffery Fiore 06/24/22 Amaury 33 live - C-se ction Male spinal [facility] Maria Mike 06/24/22 Surendra 33 live - C-se ction Male spinal [facility] Maria Mike Delivery Date: 08/14/09 Last Updated by: Alison Noel Pre-term labor. Delivery Date: 02/14/16 Last Updated by: Alison Noel No issues during or delivery. Delivery Date: 06/24/22 Last Updated by: Charis Desai see problem list for complications, and ptl pprom 33 ltcs [facility]. Delivery Date: 06/24/22 Last Updated by: Charis Desai See problem list for complications, and ptl pprom 33 ltcs bs . ROS Const Constitutional: Denies fatigue, fever(s), headache(s), increased appetite, poor appetite, weight gain or weight loss GI GI: Reports as per HPI and abdominal pain; Denies constipation, nausea or vomiting : Reports as per HPI; Denies difficulty voiding, dysuria, hematuria, pelvic pain, urinary frequency, urinary incontinence, urinary hesitancy, urinary urgency, vaginal discharge, vaginal dryness, vaginal odor, vaginal pruritus or other Exam Const General: cooperative, healthy appearing, comfortable, no acute distress and well developed Orientation: alert [facility] Head: normal to inspection and normocephalic Ears: hearing grossly normal bilaterally and external ears normal Nose: external nose normal and nares normal Face and sinus: normal facial exam Neck Neck: normal visual inspection, no lymphadenopathy and trachea midline Thyroid: thyroid normal Resp Effort & Inspection: normal respiratory effort Musc Other: gross motor intact no deficits, full bilateral strength Skin General: no rashes or lesions noted Neuro Motor: muscle tone normal throughout Coding Level of Care Code No Charge Diagnoses Dysmenorrhea N94.6 Dyspareunia Pelvic pain R10.2 Adenomyosis N80.03 Assessment and Plan Assessment and Plan (1) Dysmenorrhea: Status: Acute Comment: discussed options, suspect adenomyosis. plan IUD (2) Dyspareunia: Status: Acute Comment: discussed options, suspect adenomyosis. plan IUD. offered OCP- states she has had mood side effects in the past. (3) Pelvic pain: Status: Acute Comment: suspected secondary to adenomyosis and possible pelvic congestion. failed IUD. plan LAVHBS (4) Adenomyosis: Status: Acute Plan After discussing the patient's diagnosis and treatment plan options, patient wishes to proceed with surgical management. I have discussed with the patient the risks, benefits, and alternatives of the procedure which include but are not limited to risks of anesthesia, bleeding, infection, possible damage to bowel, bladder, or surrounding vasculature which could lead to additional surgery to ev aluate any complications. Patient agrees to procedure and wishes to proceed. ACOG/uptodate references given for additional information regarding procedure.
[2025-05-21] VITALS (20 sets, daily range): BP systolic 109–143; BP diastolic 56–88; PULSE 68–90; RESP 14–18; TEMP 36.3–37.3; O2SAT 91–100; BMI 29.0
[2025-05-21] MEDS: Magnesium 1 GM over 15 mins IV (08:04)
[2025-05-21] MEDS: Lactated Ringers 1,000 ML 40 ML IV (08:04)
[2025-05-21] MEDS: DEXTROSE 5% IV (08:21)
[2025-05-21] MEDS: GENTAMICIN IV (08:21)
[2025-05-21] MEDS: WATER IV (08:21)
--- NOTE | 2025-05-21 08:31 | PCM.PRE.AN2 ---
ASA Classification* ASA Classification ASA Classification: 2 Assessment & Plan Anesthesia* Anesthesia Assessment Anesthesia Assessment: Discussed sedation and/or anesthesia options, risks, benefits, and alternatives with patient/parents/legal guardian/POA. Questions invited. The patient/parents/legal guardian/POA seems to understand and agrees to proceed with anesthesia plan. Reviewed the physical assessment, medical history, allergy history and patient home medications list prior to surgery/procedure/anesthetic and documented any changes. Performed airway and anesthesia risk assessments. Anesthesia Type Anesthesia Type: General History Source History Obtained from:: Patient, Chart and Parent/ Guardian Anesthesia Focused Assessment* Temperature: 98.1 F Pulse Rate: 68 Blood Pressure: 112/56 Respiratory Rate: 18 Pulse Ox: 98 Oxygen Delivery Method: Room Air Airway Assessment Mouth opens: >3 cm Mallampati Score: II Teeth Condition: Intact Neck Range of motion (ROM): Full ROM Labs Anesthesia Preop lab: CBC WBC 7.8 K/mm3 (4.4-11.0) 05/08/25 13:48 05/08/25 RBC 4.37 M/mm3 (4.2-5.4) 05/08/25 13:48 05/08/25 Hgb 12.7 g/dL (12.0-15.0) 05/08/25 13:48 05/08/25 Hct 39.1 % (37-47) 05/08/25 13:48 05/08/25 Plt Count 208 K/mm3 (150-450) 05/08/25 13:48 05/08/25 CHEMISTRY Potassium 3.9 mmol/L (3.3-5.1) 05/08/25 13:48 05/08/25 Sodium 138 mmol/L (133-145) 05/08/25 13:48 05/08/25 Magnesium 2.1 mg/dL (1.5-2.2) 04/26/25 08:50 04/26/25 Phosphorus 2.1 mg/dL (2.5-4.9) L 01/04/22 11:57 01/04/22 BUN 14 mg/dL (4-19) 05/08/25 13:48 05/08/25 Creatinine 0.53 mg/dL (0.70-1.20) L 05/08/25 13:48 05/08/25 Glucose 89 mg/dL (70-99) 05/08/25 13:48 05/08/25 TSH 1.200 uIU/mL (0.358-3.740) 10/11/24 14:56 10/11/24 COAG HCG, Quant 2864 mIU/mL (1-3) H 12/11/21 15:06 12/11/21 Urine Test Negative Negative 03/21/25 18:55 03/21/25 Tst Clinic Negative 01/09/19 16:04 01/09/19 Pre-Assessment Diagnosis/Proposed Procedure Planned Operative Procedure(s): LAPAROSCOPIC ASSISTED VAGINAL HYSTERECOMY Anesthesia History 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 When Was Last Pacemaker Check QUESTION #4 FULL TEXT: You/Your Family Experience fever (hyperthermia) with Anesthesia Last Oral Intake Last Oral intake: Last Oral Intake NPO since 06:45 05/21/25 08:07 Meds taken in AM with sips of No 05/21/25 08:07 water? Meds patient instructed to take am of surgery PONV PONV - camera repairer: PONV - camera repairer Female Yes 04/25/25 08:59 HX of Motion Sickness No 04/25/25 08:59 HX of N/V After Surgery Yes 04/25/25 08:59 Non-Smoker No 04/25/25 08:59 Duration of Surgery greater Yes 04/25/25 08:59 than 60 minutes Number of Risk Factors 3 04/25/25 08:59 PONV Score Moderate Risk 04/25/25 08:59 Height & Weight Height & Weight: Anesthesia: Height & Weight Height 5 ft 3 in 05/21/25 08:07 Weight: 74.2 kg 05/21/25 08:07 Body Mass Index (BMI) 29.0 05/21/25 08:07 Respiratory Assessment Respiratory Assessment - camera repairer: Respiratory Tract Infection Hx - camera repairer Hx Respiratory Tract Infection No 04/25/25 08:59 STOP Sleep Apnea STOP Sleep Apnea - camera repairer: STOP Sleep Apnea - camera repairer Hx Hypertension No 04/25/25 08:59 Hx Sleep Apnea No 04/25/25 08:59 CPAP BIPAP Do you snore loudly (louder No 04/25/25 08:59 than talking or can be heard Do you often feel tired/ No 04/25/25 08:59 fatigued/ sleepy during daytime? Has anyone observed you stop No 04/25/25 08:59 breathing during sleep? STOP Results Negative 04/25/25 08:59 QUESTION #5 FULL TEXT : Do you snore loudly (louder than talking or can be heard through closed doors)? 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 Specify any problems Hx of Preganancy in last 3 No 04/25/25 08:59 Months Nurse Filling Out Transfusion [email or web address] 04/25/25 08:59 & Questions: Date: 04/25/25 04/25/25 08:59 Time: 09:02 04/25/25 08:59 Patient unable to answer at this time (ie. confused, unrespo /Reproduction History /Reproductive History - camera repairer: /Reproductive Hx- camera repairer Hx Now No 04/25/25 08:59 Gestational Age (in weeks): EDC: Hx Hx Para Hx Section SAB No 05/08/25 11:17 Active Medications Active Medications: Current Medications Generic Name Dose Route Start Last Admin Trade Name Bobq PRN Reason Stop Dose Admin Acetaminophen 1,000 mg 05/21/25 09:00 05/21/25 08:13 Acetaminophen 500 Mg Tablet PO 05/21/25 09:01 1,000 mg PREOP ONE Administration Celecoxib 400 mg 05/21/25 09:00 05/21/25 08:13 Celecoxib 200 Mg Capsule PO 05/21/25 09:01 400 mg PREOP ONE Administration Dexamethasone Sodium Phosphate 8 mg 05/21/25 09:00 Dexamethasone 4 Mg/Ml Vial IV 05/21/25 09:01 INTRAOP ONE Enoxaparin Sodium 40 mg 05/21/25 09:00 05/21/25 08:14 Enoxaparin 40 Mg/0.4 Ml Syringe SC 05/21/25 09:01 40 mg PREOP ONE Administration Gabapentin 600 mg 05/21/25 09:00 05/21/25 08:13 Gabapentin 600 Mg Tablet PO 05/21/25 09:01 600 mg PREOP ONE Administration Lactated Ringer's 1,000 mls @ 40 mls/hr 04/30/25 10:10 05/21/25 08:04 IV 40 mls/hr .Q25H SARA Administration Lactated Ringer's 1,000 mls @ 40 mls/hr 05/21/25 09:00 IV .Q25H SARA Clindamycin Phosphate 900 mg in 50 mls @ 75 mls/hr 05/21/25 09:00 Cleocin IV 05/21/25 09:39 INTRAOP ONE Gentamicin Sulfate 310 mg/ 57.75 mls @ 100 mls/hr 05/21/25 09:00 05/21/25 08:21 Dextrose IV 05/21/25 09:34 100 mls/hr INTRAOP ONE Administration Insulin Human Lispro 0 unit 05/21/25 09:00 Insulin Lispro 100 Unit/Ml Insuln.Pen SC 05/21/25 18:00 Q4H PRN PRN BG >/= 180, SEE PROTOCOL Protocol Ondansetron HCl 4 mg 05/21/25 09:00 Ondansetron 4 Mg/2 Ml Vial IV 05/21/25 09:01 INTRAOP ONE Phenazopyridine HCl 190 mg 05/21/25 09:00 05/21/25 08:14 Phenazopyridine 95 Mg Tablet PO 05/21/25 09:01 190 mg PREOP ONE Administration [facility] Medical History Marijuana use Smoker Dyspareunia depression History of premature rupture of membranes (PPROM) History of pre-term labor Polyhydramnios Asthma Anxiety Polyhydramnios affecting IUGR (intrauterine growth restriction) Former smoker Hyperemesis Vaginal bleeding during Dichorionic diamniotic twin Rh negative status during Infertility Supervision of high risk , antepartum Marijuana use, episodic Concussion without loss of consciousness Cervical strain COVID-19 Depression Back pain Abnormal bruising Knee pain Chest pain Migraines Fatigue Shoulder pain Home Medications ?Medication ?Instructions ?Recorded ?Last Taken ?Type sertraline 100 mg tablet (Zoloft) 200 mg PO DAILY Check with primary 06/18/22 05/20/25 History doctor lithium carbonate 450 mg 450 mg PO DAILY 04/25/25 05/20/25 History tablet,extended release Allergy/AdvReac Type Severity Reaction Status Date / Time dicyclomine (From Bentyl) Allergy migraine Verified 05/21/25 08:03 Penicillins Allergy Rash Verified 05/21/25 08:03 Surgical History Status post bilateral salpingectomy delivery delivered H/O dilation and curettage Social History adopted: No household members: significant other and children number of children: 2 current occupational status: employed 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 Review of Systems ROS Unobtainable: Denies due to encephalopathy, due to endotracheal tube, due to mental condition, due to mental status or other Constitutional Constitutional: Denies change in weight, fever(s), snoring or stops breathing during sleep Cardiovascular Cardiovascular: Denies chest pain, dyspnea, hypertension or palpitations Respiratory/Chest Respiratory/Chest: Denies chest congestion, cough or wheezing Neurologic Neurologic: Denies abnormal movements, abnormal speech, behavior changes, confusion, restless legs or seizures Physical Exam Const alert and oriented x3 Orientation / Consciousness: awake Neck full ROM Resp normal respiratory effort Cardio regular rate and regular rhythm Neuro oriented x3 and moves all extremities
--- NOTE | 2025-05-21 09:15 | UT_PTH ---
PATIENT: LILLIAN OCHOA LOC: [facility] U#:[id number] AGE/SX: 39/F ROOM: RE05/21/[address]: Dr. Maria Regan MD : [id number] BED: DIS: 05/21/2025 SPEC #: [id number] RECD: 05/21/25 12:31 STATUS: DILMA CARLOS #: [id number] MARIA INES: 05/21/25 09:[address]: Maria Regan DEPT: SURGICAL PATHOLOGY RECD BY: Tanvir Spears Tissues: A - Uterus, NOS Procedures: Surgery Specimen Level V HEADER OPERATION: ERAS, hysterectomy, LAVH PRE-OP DIAGNOSIS: Dysmenorrhea, dyspareunia, pelvic pain, adenomyosis TISSUE SUBMITTED: A- Cervix and uterus MICROSCOPIC DIAGNOSIS A. Uterus, cervix, hysterectomy: - Cervix: squamous metaplasia, mild chronic inflammation. - Endometrium: secretory phase. - Myometrium: no specific pathologic change. - Serosa: subserosal leiomyomata (0.2 cm). MICROSCOPIC DESCRIPTION Slides are reviewed. GROSS DESCRIPTION A. Received in formalin labeled with the patient's name and date of . Designated as cervix and uterus is a 152.8 g, 10.2 x 6.0 x 4.4 cm uterus devoid of attached adnexa. The serosa is casas-pink with patchy congestion and loosely adherent blood clot; there are focal serosal nodules on the anterior and posterior aspect, 0.2 cm in greatest dimension. The attached cervix is casas-pink and focally erythematous and measures 3.7 x 3.2; the 0.6 cm os is patent. Mucus containing cysts are present. The specimen is inked as follows: [id number]. Opening reveals a 6.4 x 2.3 cm endometrial canal lined by dark red endometrium that measures up to 0.4 cm thick. The myometrium is casas-pink and trabeculated, measuring up to 2.3 cm thick. No definitive lesions/masses are grossly appreciated. Lead Injection Mold Technician sections are submitted as follows: A1: Anterior cervixA2: Posterior cervixA3: Anterior endomyometriumA4: Posterior endomyometriumA5: Serosal nodules DE 05/21/2025 CPT:53274
[2025-05-21] MEDS: Lidocaine 1% (5 ml sdv) 5 ML Vial 10 ML IV (09:38)
[2025-05-21] MEDS: DiphenhydrAMINE 50 MG/ML Syringe 12.5 MG IV (09:45)
[2025-05-21] MEDS: fentaNYL 100 MCG/2 ML Ampul 200 MCG IV (11:36)
--- NOTE | 2025-05-21 12:22 | PCM.POST.ANE ---
Anesthesia: Postop Eval I Current Vital Signs Temperature: 97.3 F Pulse Rate: 76 Blood Pressure: 143/88 Respiratory Rate: 16 Pulse Ox: 100 Oxygen Delivery Method: Simple Mask Oxygen Flow Rate (L/min): 6 Assessment Airway patent: Yes Spontaneous unlabored respirations: Yes Mental status: Asleep nausea: No Vomiting: No Anesthesia Complication: No Fluid Hydration Crystalloid volume administer (ml): 1,500 Total IV fluid infused: 1,500 Progress Note Anesthesia document: Postop Eval 1 completed: Yes
--- NOTE | 2025-05-21 13:17 | OP.PCM_ITS ---
Problems Associated Problem List Diagnoses (1) Pelvic pain: (2) Dysmenorrhea: (3) Dyspareunia: Multi Select Codes Urinary/Genital Urinary/Genital CPT Codes: 07669 Laproscopic BS/O Operative Report (Standard) Operative Information Date of Procedure: 05/21/25 Pre-Operative Diagnosis: see problem list Post-Operative Diagnosis: same Surgery/Procedure Performed: lavh cystoscopy journeyman millwright: Yes Flower Shop Laborer/Designer: Blanca Kennedy Tasks completed by product development assistant: Opening & closing, Altering tissue and Insert Trochanter Additional assistant professor of physics?: No Type of Anesthesia: General RN Documented Start/Stop Times: Operation Date: 05/21/25 09:15 Case Time Into Pre-Op 05/21/25 07:19 Out of Pre-Op 05/21/25 09:20 Anesthesia Start 05/21/25 09:29 Into Room 05/21/25 09:29 Procedure Start 05/21/25 09:52 Procedure End 05/21/25 11:53 Anesthesia End 05/21/25 12:09 Out of Room 05/21/25 12:09 Into Recovery 05/21/25 12:11 Procedure Start Time: 09:52 Procedure Stop Time: 11:53 Select all DRAINS/GRAFTS/IMPLANTS that apply: None Estimated Blood Loss: 300 Specimen collected: Yes Description of specimen(s) removed: uterus Description of surgery: Patient received preoperative antibiotics and SCDs were on preoperatively. Patient was taken back to the operating room and placed in the dorsal lithotomy position. General anesthesia was induced and patient was prepped and draped in normal sterile fashion. Uterine manipulator was placed inside the uterus and Drake catheter placed in the bladder. The umbilicus was grasped with towel clamps and an intraumbilical incision was made after injecting with quarter pe rcent Marcaine and a Veress needle entered into the abdomen confirmed to be intra-abdominal with a low opening pressure. Abdomen was insufflated with CO2 gas and the Veress needle removed and the 5 mm trocar was placed under direct visualization without complication. Right and left lower quadrants were transilluminated and injected with quarter percent Marcaine and 5 mm ports placed under direct visualization. Pelvis was well visualized see operative findings for additional information. The broad ligament was opened up by transecting the utero ovarian ligaments and then the round ligaments bilaterally and skeletonizing the uterine vessels bilaterally and creating a bladder flap using the LigaSure device. The uterine arteries were transected bilaterally with good visualization of the bladder and the ureters were seen to be inferior lateral to the operative area. Attention was then paid to the vaginal portion of the procedure and the cervix was grasped with Courtney clamps and circumf erentially injected with dilute vasopressin. A circumferential incision was made and the vaginal mucosa was mobilized off posteriorly and the cul-de-sac entered into sharply and a longneck speculum placed. The anterior cul-de-sac was then identified and entered into sharply. The uterosacral ligaments were clamped cut and suture ligated with 0 Monocryl bilaterally followed by the cardinal ligaments which were clamped cut and suture ligated bilaterally with 0 Monocryl. The uterus serially descended and was removed without difficulty with minimal morcellation. Pelvic sidewall pedicles were checked and noted to have excellent hemostasis. The vaginal mucosa was reapproximated incorporating the posterior peritoneum. This was reapproximated using 0 Vicryl [id number] sutures. Excellent hemostasis was noted. due to the large amount and vast size of blood vessels, a cystoscopy was performed. The cystoscopy was then performed and bilateral ureteral strong spray was noted and the bladder was noted to have no abnormality or lesions seen. Drake catheter was replaced and then attention paid to the abdominal portion of the procedure again. The pelvis and cul-de-sac was well visualized and no significant active bleeding noted but some raw areas were seen on the peritoneum and therefore surgiflow was applied. Pressure was taken down and the areas visualized and noted of excellent hemostasis. All ports were removed under direct visualization without complication and the abdomen was desufflated of air. The instruments removed from the abdomen and the vagina vaginal sweep was negative. Port sites on the abdomen were closed with 4-0 Monocryl interrupted sutures and Steri's and windows were applied. She was awoken and taken recovery in stable condition. Surgical Findings: pelvic congestion enlarged uterus Complications Complications: No
[2025-05-21 13:43] LABS: Hematocrit 39.8 % (37-47); Hemoglobin 13.0 g/dL (12.0-15.0); Mean Corp Hgb Conc 32.7 g/dL (32-36); Mean Corpuscular Volume 90.0 fL (81-99); Mean Platelet Vol. 11.8 fl (6.2-12.0); POSITIVE COUNT YES; Platelet Count 193 K/mm3 (150-450); RBC Distribution Width CV 14.0 % (11.6-14.6); RBC Distribution Width SD 46.7 fl (35.1-43.9); Red Blood Count 4.42 M/mm3 (4.2-5.4); White Blood Count 8.6 K/mm3 (4.4-11.0)
--- NOTE | 2025-05-21 15:23 | DCINST_ITS ---
Discharge Instructions DC O2, CPAP, BIPAP needs Home O2 Discharge instructions: No Dressing / Incision May resume sexual activity in: 6 weeks Weight Bearing Status: Full weight bearing Dressing / Incision Call your doctor if your incision/area has: Continuous Slow Oozing, Sudden Increased Bleeding, Increased Pain/ Swelling, Increased Redness and Foul Smelling Discharge Call your doctor if you observe: Fever of 101 or Higher, Using more than 1 pad per hour, Shortness of breath, Chest pain and Uncontrolled pain Suture Line Care: Avoid Pulling/Pushing and Avoid Pinching/Bending Remove Dressing in: 1 week (if present) Cleanse incision/area with: Soap & Water and Keep Dressing Clean & Dry Follow Up Care Please Follow Up With: Maria Regan MD When: Call to make an appointment with your doctor for a postop visit in 2 and 6 weeks. Test Results: Test results from this visit will be discussed in further detail at your follow- up appointment, if applicable. Discharge Plan Admission Attending Provider: Maria Regan Primary Care Provider: Maria Regan Instructions Print Language: Paraguayan Discharge Orders/Prescriptions Prescriptions: New oxycodone-acetaminophen [Percocet] 5-325 mg tablet 1 tab PO Q4H PRN (Reason: pain) 7 Days Qty: 20 0RF naproxen 500 mg tablet 500 mg PO BID PRN PRN (Reason: Pain) Qty: 30 1RF No Action sertraline [Zoloft] 100 mg tablet 200 mg PO DAILY lithium carbonate 450 mg tablet extended release 450 mg PO DAILY Referrals / Follow Up: Grant Nazario MD [Non-Staff] - Disposition Disposition (needs filled in before D/C Order can be placed): Home, Self Care
[2025-05-21 15:52] LABS: Hematocrit 40.3 % (37-47); Hemoglobin 13.4 g/dL (12.0-15.0); Mean Corp Hgb Conc 33.3 g/dL (32-36); Mean Corpuscular Volume 89.0 fL (81-99); Mean Platelet Vol. 10.4 fl (6.2-12.0); Platelet Count 228 K/mm3 (150-450); RBC Distribution Width CV 13.9 % (11.6-14.6); RBC Distribution Width SD 45.1 fl (35.1-43.9); Red Blood Count 4.53 M/mm3 (4.2-5.4); White Blood Count 14.8 K/mm3 (4.4-11.0)
[2025-05-21] MEDS: HYDROcodone Bitartrate/Apap 5/325 Tablet PO (16:11)
[2025-05-21] MEDS: Ketorolac 30 MG/ML Syringe IV (16:11)
== END 2025-05-21 17:18 | disposition home or self-care (01) ==
LOC: SDC 07:18 → AC 07:19
PROVIDERS: PCP Obstetrics & Gynecology; Referring Provider Obstetrics & Gynecology; Visit Provider Obstetrics & Gynecology
PROC: 0UT9FZZ Resection of Uterus, Via Natural or Artificial Opening With Percutaneous Endoscopic Assistance (ICD-10-PCS; CPT 58550; principal; 2025-05-21 08:50)
DX: D25.2 Subserosal leiomyoma of uterus (principal); N87.0 Mild cervical dysplasia; N94.6 Dysmenorrhea, unspecified; F41.9 Anxiety disorder, unspecified; F32.A Depression, unspecified; F17.200 Nicotine dependence, unspecified, uncomplicated; Z79.899 Other long term (current) drug therapy
CPT/HCPCS: 58550; 00840; J3475; 36415; 82962; 83735; 85027; 86850; 86900; 86901; 88307; J2405

== ENCOUNTER 2025-05-27 13:00 | Emergency (ER) | payer MEDICAID, SELFPAY ==
[2025-05-27 13:01] VITALS: BP 108/65; PULSE 125; RESP 20; TEMP 37.2; O2SAT 99; BMI 29.0
[2025-05-27 13:37] VITALS: BP 108/65; PULSE 125; RESP 20; TEMP 37.2; O2SAT 99
--- NOTE | 2025-05-27 13:37 | EX.ED.DYSGE1 ---
HPI History of Present Illness Chief Complaint: Fever Informant: patient Onset/Context/Timing Onset: Today Context: Sudden Onset Timing: Continuous Quality: Aching Location: Generalized Worsened by: Nothing Relieved by: Nothing Narrative Narrative: Patient presents with a fever that began today. Patient states it began rather suddenly. Patient states it was there when she woke up today. Patient states she feels aching. Patient states it is generalized. Patient states her temperature at home was up to 104. Patient states nothing makes it worse and nothing makes it better. Patient states she did not take any Tylenol prior to arrival. Patient had a recent hysterectomy. Patient admits to some nausea but denies any vomiting. Patient does admit to some chest pain and shortness of breath. [facility] Medical History Marijuana use Smoker Dyspareunia depression History of premature rupture of membranes (PPROM) History of pre-term labor Polyhydramnios Asthma Anxiety Polyhydramnios affecting IUGR (intrauterine growth restriction) Former smoker Hyperemesis Vaginal bleeding during Dichorionic diamniotic twin Rh negative status during Infertility Supervision of high risk , antepartum Marijuana use, episodic Concussion without loss of consciousness Cervical strain COVID-19 Depression Back pain Abnormal bruising Knee pain Chest pain Migraines Fatigue Shoulder pain Home Medications ?Medication ?Instructions ?Recorded ?Last Taken ?Type sertraline 100 mg tablet (Zoloft) 200 mg PO DAILY Check with primary 06/18/22 05/20/25 History doctor lithium carbonate 450 mg 450 mg PO DAILY 04/25/25 05/20/25 History tablet,extended release naproxen 500 mg tablet 500 mg PO BID PRN PRN Pain #30 tabs 05/21/25 Unknown Rx oxycodone-acetaminophen 5 mg-325 1 tab PO Q4H PRN pain 7 days #28 05/24/25 Unknown Rx mg tablet (Percocet) tabs cephalexin 500 mg capsule 500 mg PO Q12 #14 CAPSULES 05/27/25 Unknown Rx Allergy/AdvReac Type Severity Reaction Status Date / Time dicyclomine (From Bentyl) Allergy migraine Verified 05/27/25 13:02 Penicillins Allergy Rash Verified 05/27/25 13:02 Surgical History S/P laparoscopic assisted vaginal hysterectomy (LAVH) Status post bilateral salpingectomy delivery delivered H/O dilation and curettage Social History adopted: No household members: significant other and children number of children: 2 current occupational status: employed 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; [employer] Smoking Status: Light Smoker (<10/day) alcohol intake: current details: occasionally; not while substance use type: marijuana caffeine: Yes what type of physical activity do you participate in: none seatbelt use: always do you feel safe at home: Yes additional social history: [employer] ED Constitutional Constitutional ED: Reports fever(s); Denies chills Eyes Eyes: Denies blurry vision or change in vision ENT ENT ED: Denies rhinorrhea or sore throat Cardiovascular Cardiovascular: Reports chest pain; Denies palpitations Respiratory/Chest Respiratory/Chest: Reports dyspnea; Denies cough Gastrointestinal Gastrointestinal: Reports nausea; Denies vomiting Genitourinary Genitourinary ED: Denies dysuria or hematuria Musculoskeletal Musculoskeletal: Reports neck pain; Denies back pain Integumentary Denies abscess or rash Neurologic Neurologic: Reports headache(s); Denies weakness Allergic/Immunologic Allergic/Immunologic ED: Denies mouth swelling or urticaria EXAM Physical Exam Const Vital Signs: 05/27/25 13:01 05/27/25 13:37 05/27/25 13:39 Temperature 99 F 99 F Temperature Source Oral Temporal Pulse Rate 125 H 125 H Respiratory Rate 20 H 20 H Respiratory Effort Normal Respiratory Pattern Normal Blood Pressure 108/65 108/65 Blood Pressure Mean 79 79 Pulse Ox 99 99 Oxygen Delivery Method Room Air 05/27/25 14:57 Temperature 99.2 F H Temperature Source Temporal Pulse Rate 98 Respiratory Rate 20 H Respiratory Effort Respiratory Pattern Blood Pressure 110/76 Blood Pressure Mean 87 Pulse Ox 100 Oxygen Delivery Method Positive well nourished and well developed General Appearance ED: well developed and NAD HEENT Reports moist mucous membranes Neck supple and no JVD Resp normal respiratory effort and clear to auscultation bilaterally Cardio regular rhythm Rate: tachycardic GI non-distended GI Narrative: The abdominal incisions are healing well. There is no erythema or warmth. There is no discharge or drainage. There is mild diffuse tenderness. There is no guarding noted. Palpation: soft Neuro oriented x3, CN's II-XII intact bilaterally and no sensory deficits noted Sensorium / Orientation: alert Motor Exam: strength 5/5 throughout Psych mental status grossly normal MDM MDM MDM Narrative Medical decision making narrative: Differential diagnosis includes urinary tract infection, pneumonia, wound infection, pulmonary embolism, dehydration, electrolyte abnormality, and sepsis. CBC will be obtained to assess for leukocytosis and anemia. Comprehensive metabolic profile will be obtained to assess for electrolyte abnormality and renal function. Urinalysis will be obtained to assess for urinary tract infection and hematuria. Blood cultures will be obtained to assess for sepsis. Urine culture will be obtained to assess for urinary tract infection and hematuria. Chest x-ray will be obtained to assess for pneumonia or bronchitis. CT scan of the abdomen pelvis will be obtained to assess for bowel obstruction, perforation, abscess, and pyelonephritis. CTA of the chest will be obtained to assess for pulmonary embolism. History & Record Review Additional record(s) reviewed:: Prior inpatient record, Prior outpatient record, Prior ED visit and Prior labs Lab Data Attestation: I reviewed the patient's lab results. Lab results narrative: CBC was reviewed. There is a mild leukocytosis of 13.9. The remainder is essentially within normal limits. Comprehensive metabolic profile was reviewed and was within normal limits. Urinalysis was reviewed. Leukocyte Estrace was 500. There were 5-10 white blood cells. There is no bacteria noted. Occult blood was 150. There are 0-5 red blood cells. Labs: Laboratory Results - last 24 hr 05/27/25 05/27/25 14:30 14:48 WBC 13.9 H RBC 4.17 L Hgb 12.6 Hct 36.9 L MCV 88.5 MCH 30.2 MCHC 34.1 RDW Std Deviation 44.9 H RDW Coeff of Tulio 13.9 Plt Count 203 MPV 10.0 Immature Gran % (Auto) 0.200 Neut % (Auto) 88.5 H Lymph % (Auto) 4.0 L Clinch % (Auto) 6.4 Eos % (Auto) 0.6 Baso % (Auto) 0.3 Absolute Neuts (auto) 12.3 H Absolute Lymphs (auto) 0.56 L Nucleated RBC % 0 Sodium 136 Potassium 3.9 Chloride 102 Carbon Dioxide 21.2 Anion Gap 13 BUN 12 Creatinine 0.61 L Estim Creat Clear Calc 121.99 Est GFR (MDRD) Non-Af 118 BUN/Creatinine Ratio 19.3 Glucose 104 H Calcium 9.7 Total Bilirubin 0.46 AST 24 ALT 25 Alkaline Phosphatase 73 Total Protein 7.1 Albumin 3.9 Globulin 3.2 Albumin/Globulin Ratio 1.2 Urine Color Yellow Urine Clarity Clear Urine pH 7.0 Ur Specific Ruston 1.010 Urine Protein 15 H Urine Glucose (UA) Normal Urine Ketones Negative Urine Occult Blood 150 H Urine Nitrite Negative Urine Bilirubin Negative Urine Urobilinogen Normal Ur Leukocyte Esterase 500 H Urine RBC 0-5 SEEN Urine WBC 5-10 SEEN Ur Squamous Epith Cells 0-5 SEEN Urine Bacteria 0 SEEN Urine Mucus 0 SEEN Radiography Chest X-Ray - ED: 2 View, Read by ED Physician, Read by Radiologist and No Acute Disease CTA PE Study: No Evidence of PE and No Evidence of Dissection Diagnostic Testing: Clinical Impression(s) from Imaging Studies Chest X-Ray 05/27/25 15:05 IMPRESSION: Lungs appear clear of acute disease, and unchanged. No pleural effusion or pneumothorax is noted. The cardiomediastinal silhouette is within the normal range. No acute osseous change is seen. No evidence of acute cardiopulmonary disease. Reading Location: [facility] Abdomen/Pelvis CT 05/27/25 16:39 IMPRESSION: Mildly thickened urinary bladder wall which may reflect cystitis vs nondistention; consider correlation with urinalysis. Left ovarian follicles measuring 1.5 x 1.4 cm with mild inflammation although tubular-ovarian abscess is not entirely excluded; consider pelvic US for further evaluation if there is continued concern. Reading Location: [facility] Chest CTA 05/27/25 16:39 IMPRESSION: No pulmonary emboli. No focal consolidations. Reading Location: [facility] PA and lateral chest x-ray was obtained. There are 2 views. On my independent interpretation, lung trujillo are clear. There is normal cardiac silhouette. Bony thorax is normal. There is no acute process noted. Radiologist also interpreted the x-ray and agrees. CT scan of the abdomen and pelvis was obtained. There is a mildly thickened urinary bladder which may reflect cystitis. There is a left ovarian follicles measuring 1.5 x 1.4 cm with mild inflammation. This was interpreted by the radiologist and was also independently reviewed by myself. CTA of the chest was obtained. There is no evidence of pulmonary embolism. There is no aortic dissection. There is no focal consolidation. This was interpreted by the radiologist and was also independently reviewed by myself. Treatment and Re-Evaluation :: Patient was given IV fluids and Tylenol. Patient's heart rate improved after this. Patient was advised of her findings. Case was discussed with Dr. Mittal from [facility]. She recommended placing the patient on Keflex twice daily. She will follow-up with the patient as an outpatient. Patient states she has an appointment scheduled on 06/04/2025. Patient was instructed to follow-up with this appointment. Patient was instructed to return if worse in any way. Patient understood and was agreeable with the plan. All questions were answered. Discharge Plan Triage Chief Complaint: Fever ED Provider: Augie Frederick Dx/Rx/DC Orders Clinical Impression: Urinary tract infection, Fever, S/P laparoscopic assisted vaginal hysterectomy (LAVH) Instructions: ED Fever Control (Adult), ED Cystitis Female Adult Prescriptions: New cephalexin 500 mg capsule 500 mg PO Q12 Qty: 14 0RF No Action sertraline [Zoloft] 100 mg tablet 200 mg PO DAILY lithium carbonate 450 mg tablet extended release 450 mg PO DAILY naproxen 500 mg tablet 500 mg PO BID PRN PRN (Reason: Pain) Qty: 30 1RF oxycodone-acetaminophen [Percocet] 5-325 mg tablet 1 tab PO Q4H PRN (Reason: pain) 7 Days Qty: 28 0RF Primary Care Provider: Care Physician,No Primary Referrals: Maria Regan MD [Med Staff - Active Staff] - Keep [facility] appointment Care Physician,No Primary [Primary Care Provider] - Print Language: Prydeinig Disposition Disposition: Home, Self Care
[2025-05-27 14:42] LABS: Hematocrit 36.9 % (37-47); Hemoglobin 12.6 g/dL (12.0-15.0); Immature Granulocytes Count 0.030 X10^3/uL (0.0-0.0); Mean Corp Hgb Conc 34.1 g/dL (32-36); Mean Corpuscular Volume 88.5 fL (81-99); Mean Platelet Vol. 10.0 fl (6.2-12.0); NRBC Flagged by Analyzer 0 % (0-5); POSITIVE DIFFERENTIAL YES; Platelet Count 203 K/mm3 (150-450); RBC Distribution Width CV 13.9 % (11.6-14.6); RBC Distribution Width SD 44.9 fl (35.1-43.9); Red Blood Count 4.17 M/mm3 (4.2-5.4); White Blood Count 13.9 K/mm3 (4.4-11.0)
[2025-05-27] MEDS: 0.9% Normal Saline (1000mL) 1,000 ML 1000 ML IV (14:47)
[2025-05-27 14:57] VITALS: BP 110/76; PULSE 98; RESP 20; TEMP 37.3; O2SAT 100
[2025-05-27 15:01] LABS: Mucous, Urine 0 SEEN /hpf (<or=2+)
--- NOTE | 2025-05-27 15:05 | RAD_ITS ---
PROCEDURE: CHEST PA AND LATERAL 05/27/2025 REASON FOR EXAM: FEVER TECHNIQUE: CHEST PA AND LATERAL COMPARISON: PA and lateral chest of 10/09/2021. RAD/Chest PA and Lateral IMPRESSION: Lungs appear clear of acute disease, and unchanged. No pleural effusion or pneumothorax is noted. The cardiomediastinal silhouette is within the normal range. No acute osseous change is seen. No evidence of acute cardiopulmonary disease. Reading Location: [place] [id number]
[2025-05-27 15:08] LABS: AST(SGOT) 24 U/L (<=31); Alanine Aminotransfer ALT/SGPT 25 U/L (<=34); Albumin, Serum 3.9 g/dL (3.5-5.0); Alkaline Phosphatase 73 U/L (35-104); Anion Gap 13 (5-15); BUN 12 mg/dL (4-19); BUN/Creat Ratio 19.3 RATIO (10-20); Calcium,Total 9.7 mg/dL (7.6-11.0); Carbon Dioxide 21.2 mmol/L (21.0-32.0); Chloride 102 mmol/L (98-108); Estimated Creatinine Clearance 121.99 ml/min (50-250); Globulin 3.2 g/dL (2.2-4.2); Glucose 104 mg/dL (70-99); Potassium 3.9 mmol/L (3.3-5.1)
[2025-05-27 15:09] LABS: Color, Urine Yellow (Yellow); Glucose, Dipstick Normal (Normal); Ketone-Dipstick Negative (Negative); Leukocyte Esterase-Dipstick 500 /ul (Negative); Nitrite-Dipstick Negative (Negative); Occult Blood-Urine 150 /ul (Negative); Protein-Dipstick 15 mg/dl (Negative); Specific Gravity, Urine 1.010 (1.002-1.030); Urine Bilirubin Dipstick Negative (Negative)
--- NOTE | 2025-05-27 15:50 | CM.ED ---
Social Work Reason for visit: No PCP Patient verified that she does not currently have a PCP. [facility] provider list given, no further needs identified at this time. Sarah Moreno, CERTIFIED ORTHOPTIST, ACCOUNT ADMINISTRATOR
[2025-05-27 16:19] LABS: Red Blood Cells-Urine 0-5 SEEN /hpf (0-5); Squamous Epithelial Cells - UA 0-5 SEEN /hpf (5-10)
--- NOTE | 2025-05-27 16:39 | CT_ITS ---
PROCEDURE: CTA CHEST W/WO CONTRAST 05/27/2025 REASON FOR EXAM: TACHYCARDIA, STATUS POST HYSTERECTOMY TECHNIQUE: CTA CHEST W/WO CONTRAST Multiplanar Sagittal and Coronal images were obtained. CONTRAST: 100 mL of Isovue 370 One or more dose reduction techniques were used (e.g., Automated exposure control, adjustment of the mA and/or kV according to patient size, use of iterative reconstruction technique). RADIATION DOSE SUMMARY: DLP: 927 mGycm COMPARISON: none FINDINGS: PULMONARY ARTERIES: No evidence of pulmonary embolism. LUNGS AND PLEURA: No consolidations. No definite pulmonary edema. No mass or nodule. No pleural effusion. No pneumothorax. MEDIASTINUM: No lymphadenopathy or mass. The heart shows no acute findings. The aorta shows no acute findings. The pulmonary trunk, and branches of the vessels in the mediastinum are within normal limits. SUPRACLAVICULAR AND AXILLARY: No abnormalities seen in these regions. No mass or significant lymphadenopathy. UPPER ABDOMEN: The visualized upper abdomen is unremarkable. BONES AND SOFT TISSUES: The ribs are unremarkable. The visualized spine shows no significant acute findings. No focal bony mass lesions noted. The subcutaneous soft tissues are unremarkable. CT/CTA Chest W/WO Contrast IMPRESSION: No pulmonary emboli. No focal consolidations. Reading Location: [facility]
--- NOTE | 2025-05-27 16:39 | CT_ITS ---
PROCEDURE: ABDOMEN/PELVIS W IV CONT ONLY 05/27/2025 REASON FOR EXAM: ABDOMINAL PAIN STATUS POST HYSTERECTOMY TECHNIQUE: ABDOMEN/PELVIS W IV CONT ONLY Coronal and Sagittal reconstruction series were provided. CONTRAST: 100 mL of Isovue 370 One or more dose reduction techniques were used (e.g., Automated exposure control, adjustment of the mA and/or kV according to patient size, use of iterative reconstruction technique. RADIATION DOSE SUMMARY: DLP: 926 mGycm COMPARISON: 04/08/25 FINDINGS: Limited sections of the lung bases demonstrate no focal pulmonary mass or consolidations. The liver, spleen, pancreas, and both adrenal glands demonstrate no acute findings. The gallbladder is unremarkable. The stomach is unremarkable. The small bowel loops are not dilated. The appendix is normal. No colonic obstruction. Trace pelvic free fluid. No free air. The kidneys are unremarkable. Mildly thickened urinary bladder wall which may reflect cystitis vs nondistention; consider correlation with urinalysis. Uterus is surgically removed. Left ovarian follicles measuring 1.5 x 1.4 cm with mild inflammation although tubular-ovarian abscess is not entirely excluded; consider pelvic US for further evaluation if there is continued concern. No significant lymphadenopathy. The aorta and IVC demonstrate no acute findings. Visualized osseous structures demonstrate no acute abnormality. CT/Abdomen/Pelvis W IV Cont ONLY IMPRESSION: Mildly thickened urinary bladder wall which may reflect cystitis vs nondistenti on; consider correlation with urinalysis. Left ovarian follicles measuring 1.5 x 1.4 cm with mild inflammation although t ubular-ovarian abscess is not entirely excluded; consider pelvic US for further evaluation if there is continued concern. Reading Location: [facility]
[2025-05-27 17:00] VITALS: BP 106/77; PULSE 71; RESP 18; O2SAT 99
[2025-05-27 18:43] VITALS: BP 106/77; PULSE 71; RESP 18; TEMP 36.6; O2SAT 99
== END 2025-05-27 18:50 | disposition home or self-care (01) ==
PROVIDERS: Emergency Provider Emergency Medicine; Visit Provider Emergency Medicine
DX: N39.0 Urinary tract infection, site not specified (principal); Z90.710 Acquired absence of both cervix and uterus; F17.200 Nicotine dependence, unspecified, uncomplicated; R06.02 Shortness of breath; R50.9 Fever, unspecified; R07.9 Chest pain, unspecified; J45.909 Unspecified asthma, uncomplicated; D72.829 Elevated white blood cell count, unspecified
CPT/HCPCS: 71046; 71275; 74177; 80053; 81001; 85025; 87040; 87086; 87088; 96360; 99283; Q9967

== ENCOUNTER → 2025-06-13 | Outpatient (CLI) | payer MEDICAID, SELFPAY | END | disposition home or self-care (01) | LOC: LABSPEC 13:08 | PROVIDERS: Referring Provider Nurse Practitioner Women's Health; Visit Provider Nurse Practitioner Women's Health | DX: N89.8 Other specified noninflammatory disorders of vagina (principal) | CPT/HCPCS: 87070; 87205 ==